=== PATIENT | female | born 1960 | race Caucasian/White ===

== ENCOUNTER 2016-12-06 12:32 | Inpatient (IN) ==
[2016-12-06] MEDS ORDERED: 0.9 % Sodium Chloride 1,000 ML IVC ONE (12:36)
[2016-12-06 13:05] LABS: Basophils # 0.1 K/mcL (0.0-0.2); Basophils % 0.7 %; Eosinophils # 0.1 K/mcL (0.0-0.6); Hematocrit 40.4 % (35.3-44.9); Hemoglobin 12.8 g/dL (11.5-15.4); Immature Granulocytes % 0.7 % (0-4); Lymphocytes # 2.6 K/mcL (0.6-4.6); Lymphocytes % 18.8 %; Mean Corpuscular HGB Conc 31.7 g/dL (31.6-35.5); Mean Corpuscular Hemoglobin 24.8 pg (28.0-33.3); Mean Corpuscular Volume 78.1 fL (83.0-100.0); Mean Platelet Volume 12.7 fL (9.4-12.4); Monocytes # 0.7 K/mcL (0.0-1.3); Platelet Count 262 K/mcL (140-400); Red Blood Count 5.17 M/mcL (3.82-4.97); Red Cell Distribution Width 16.3 % (11.5-14.5); Segmented Neutrophils % 73.8 %
[2016-12-06 13:09] LABS: INR 1.1; Prothrombin Time 11.6 Seconds (9.4-12.1)
[2016-12-06 13:12] LABS: Activated Partial Thrombo Time 26.9 Seconds (26.0-36.0)
[2016-12-06 13:22] LABS: BUN/Creatinine Ratio 28 (6-26); Blood Urea Nitrogen 24 mg/dL (7-20); Calcium 9.2 mg/dL (8.6-10.8); Carbon Dioxide 29 mEq/L (19-29); Chloride 99 mEq/L (98-109); Glucose 349 mg/dL (70-99); Magnesium 1.6 mg/dL (1.6-2.6); Osmolality,Calculated 306 (280-300); Sodium 139 mEq/L (136-145); eGFR For African Americans > 60 (> 60); eGFR For Non-African Americans > 60 (> 60)
[2016-12-06 13:45] LABS: Thyroid Stimulating Hormone 1.732 mcIU/mL (0.350-4.840)
--- NOTE | 2016-12-06 14:17 | Emergency Department Note ---
Disposition Clinical Impression: Atrial flutter with rapid ventricular response Disposition: Admitted As Inpatient Referrals: Jc Tsai MD [Primary Care Provider] - Forms: ED Satisfaction Letter Arrhythmia/Palpitations HPI - General Chief Complaint: ED Dizziness Stated Complaint: Tachy/Lightheaded Time Seen by Provider: 12/06/16 12:36 Source: patient, EMS Limitations: no limitations Nursing Notes Reviewed: Yes Vital Signs Reviewed: Yes - History of Present Illness Pt Subjective Complaint: rapid heart beat, "skipped beats", palpitations Onset (ago): day(s) (3) Duration: constant Severity: moderate Context: occurred during rest Associated symptoms: Reports: chest pain, diaphoresis - Related Data Home Medications Medication Instructions Recorded Confirmed Atorvastatin [Lipitor] 40 mg PO HS 01/11/16 04/01/16 Brimonidine 0.2% [Alphagan] 1 drop BOTH EYES BID 01/11/16 04/01/16 Gabapentin [Neurontin] 600 mg PO TID 01/11/16 04/01/16 Hydrocodone/Acetaminophen [[place] 1 tab PO BID PRN 01/11/16 04/01/16 5-325 Tablet] Insulin ASPART [Novolog Flexpen] 6 - 14 unit SQ TID 01/11/16 04/01/16 Insulin Glargine,Hum.rec.anlog 100 unit SQ BID 01/11/16 04/01/16 [Lantus Solostar] Latanoprost [Xalatan] 1 drop BOTH EYES HS 01/11/16 04/01/16 Loratadine [Claritin] 10 mg PO DAILY 01/11/16 04/01/16 Metoclopramide [Reglan] 10 mg PO Q6HR 01/11/16 04/01/16 Omeprazole [PriLOSEC] 40 mg PO DAILY 01/11/16 04/01/16 Primidone [Mysoline] 25 - 50 mg PO BID PRN 01/11/16 04/01/16 Tizanidine HCl 4 mg PO HS 01/11/16 04/01/16 clonazePAM [Klonopin] 0.5 mg PO BID PRN 01/11/16 04/01/16 Ascorbic Acid [Vitamin C] 500 mg PO DAILY 03/25/16 04/01/16 Docusate Sodium [Colace] 200 mg PO BID 03/25/16 04/01/16 Ferrous Sulfate 324 mg PO BID 03/25/16 04/01/16 Losartan Potassium [Cozaar] 100 mg PO DAILY 03/25/16 04/01/16 Previous Rx's Medication Instructions Recorded Acetaminophen [Tylenol] 650 mg PO Q6HR PRN #0 tablet 01/12/16 Collagenase Oint [Santyl] 1 appl TP BID #1 tube 01/12/16 Furosemide [Lasix] 40 mg PO DAILY #0 01/12/16 Chlorthalidone 25 mg PO DAILY tablet 04/08/16 Nystatin POWDER [Nystop] 1 appl TP TID bottle 04/08/16 Benzonatate [Tessalon] 200 mg PO TID PRN #30 capsule 11/25/16 GuaiFENesin ER [Mucinex] 1,200 mg PO BID #20 tbbp.12hr 11/25/16 cephALEXin [Keflex] 500 mg PO QID #40 capsule 11/25/16 Allergies Allergy/AdvReac Type Severity Reaction Status Date / Time lisinopril [From Zestril] AdvReac Rash Verified 11/25/16 10:31 All systems ED: reviewed and negative except as stated. Constitutional: Reports: weakness. Denies: fever, chills Respiratory: Denies: cough Gastrointestinal: Denies: nausea, vomiting Past Medical History - Past Medical History Source: patient, old records reviewed, nursing notes reviewed Medical history: Reports: CHF, diabetes, GERD, hyperlipidemia, hypertension, other Surgical history: Reports: hysterectomy Psychiatric history: Reports: no psych history CERTIFIED ORTHOTIST/PEDORTHIST history: Reports: no CERTIFIED ORTHOTIST/PEDORTHIST history - Social History Smoking Status: Never smoker Smokeless Tobacco Status: No Alcohol use: Reports: none Drug use: Reports: none Physical Exam - General Limitations: no limitations General appearance: alert, in no apparent distress - Head Head exam: atraumatic, normocephalic, normal inspection - Eye Eye exam: Present: normal appearance, PERRL, EOMI - Expanded Eye Exam Pupils: Left: reactive - ENT ENT exam: normal exam, normal oropharynx, mucous membranes moist - Expanded ENT Exam External ear exam: Present: normal external inspection Mouth exam: Present: normal external inspection Teeth exam: Present: normal inspection Throat exam: Present: normal inspection - Neck Neck exam: Present: normal inspection, full ROM, trachea midline - Chest Chest inspection: Present: normal inspection, symmetric chest wall rise - Respiratory Respiratory exam: Present: normal lung sounds bilaterally - Cardiovascular Cardiovascular exam: Present: tachycardia - Abdominal Exam Abdominal exam: Present: soft, Non-Tender. Absent: tenderness, distention, guarding, rebound, rigidity - Extremities Exam Extremities exam: Present: normal inspection, full ROM. Absent: tenderness, pedal edema - Expanded Upper Extremity Exam Shoulder exam: Present: normal inspection, full ROM Arm exam: Present: normal inspection, full ROM Elbow exam: Present: normal inspection, full ROM Forearm/Wrist exam: Present: normal inspection, full ROM Hand exam: Present: normal inspection, full ROM Vascular exam: Normal: capillary refill, radial pulse - Expanded Lower Extremity Exam Hip/Pelvis exam: Present: normal inspection, full ROM Upper leg exam: Present: normal inspection, full ROM Knee exam: Present: normal inspection, full ROM Lower leg exam: Present: normal inspection, full ROM Ankle exam: Present: normal inspection, full ROM Foot/toe exam: Present: normal inspection, full ROM Neurovascular/Tendon exam: Absent: motor deficit, sensory deficit, tendon deficit - Back Exam Back exam: Present: normal inspection, full ROM. Absent: tenderness - Neurological Exam Neurological exam: Present: alert, oriented X3 - Expanded Neurological Exam Patient oriented to: Present: person, place, time Coma Scale Eye Opening: Spontaneous Coma Scale Motor Response: Obeys Commands Coma Scale Verbal Response: Oriented Coma Scale Total: 15 - Psychiatric Psychiatric exam: Present: normal affect, normal mood - Skin Skin exam: Present: warm, dry, intact, normal color Course Vital Signs Temperature 98.2 F 12/06/16 12:34 Pulse Rate 154 12/06/16 12:34 Respiratory Rate 18 12/06/16 12:34 Blood Pressure 167/100 12/06/16 12:34 O2 Sat by Pulse Oximetry 95 12/06/16 12:34 Temperature 98.2 F 12/06/16 12:34 Pulse Rate 130 12/06/16 13:05 Respiratory Rate 18 12/06/16 13:05 Blood Pressure 152/71 12/06/16 13:05 O2 Sat by Pulse Oximetry 97 12/06/16 13:05 Oxygen Delivery Oxygen Delivery Nasal Cannula Arrhythmia/Palpitations - Differential Diagnosis Differential Diagnosis: Likely: palpitations, sinus tachycardia, artial arrhythmia, ventricular premature beats, supraventricular tachycardia, ventricular tachycardia, metabolic/electrolyte disturbance - Medical Records Medical records reviewed: Yes I reviewed the patient's medical records. - Lab Data Result diagrams: 12/06/16 12:51 12/06/16 12:51 Lab Results 12/06/16 12/06/16 12/06/16 Range/Units 12:51 12:51 12:51 WBC 13.5 H (4.3-11.1) K/mcL RBC 5.17 H (3.82-4.97) M/mcL Hgb 12.8 (11.5-15.4) g/dL Hct 40.4 (35.3-44.9) % MCV 78.1 L (83.0-100.0) fL MCH 24.8 L (28.0-33.3) pg MCHC 31.7 (31.6-35.5) g/dL RDW 16.3 H (11.5-14.5) % Plt Count 262 (140-400) K/mcL MPV 12.7 H (9.4-12.4) fL Immature Gran % 0.7 (0-4) % Seg Neutrophils % 73.8 % Lymphocytes % 18.8 % Monocytes % 5.0 % Eosinophils % 1.0 % Basophils % 0.7 % Neutrophils # 10.0 H (1.6-8.9) K/mcL Lymphocytes # 2.6 (0.6-4.6) K/mcL Monocytes # 0.7 (0.0-1.3) K/mcL Eosinophils # 0.1 (0.0-0.6) K/mcL Basophils # 0.1 (0.0-0.2) K/mcL PT 11.6 (9.4-12.1) Seconds INR 1.1 APTT 26.9 (26.0-36.0) Seconds Sodium 139 (136-145) mEq/L Potassium 4.0 (3.5-4.5) mEq/L Chloride 99 (98-109) mEq/L Carbon Dioxide 29 (19-29) mEq/L BUN 24 H (7-20) mg/dL Creatinine 0.86 (0.57-1.11) mg/dL Est GFR ( Amer) > 60 (> 60) Est GFR (Non-Af Amer) > 60 (> 60) BUN/Creatinine Ratio 28 H (6-26) Glucose 349 H (70-99) mg/dL Calculated Osmolality 306 H (280-300) Calcium 9.2 (8.6-10.8) mg/dL Magnesium 1.6 (1.6-2.6) mg/dL Troponin I (0-0.03) ng/mL TSH 1.732 (0.350-4.840) mcIU/mL 12/06/16 Range/Units 12:51 WBC (4.3-11.1) K/mcL RBC (3.82-4.97) M/mcL Hgb (11.5-15.4) g/dL Hct (35.3-44.9) % MCV (83.0-100.0) fL MCH (28.0-33.3) pg MCHC (31.6-35.5) g/dL RDW (11.5-14.5) % Plt Count (140-400) K/mcL MPV (9.4-12.4) fL Immature Gran % (0-4) % Seg Neutrophils % % Lymphocytes % % Monocytes % % Eosinophils % % Basophils % % Neutrophils # (1.6-8.9) K/mcL Lymphocytes # (0.6-4.6) K/mcL Monocytes # (0.0-1.3) K/mcL Eosinophils # (0.0-0.6) K/mcL Basophils # (0.0-0.2) K/mcL PT (9.4-12.1) Seconds INR APTT (26.0-36.0) Seconds Sodium (136-145) mEq/L Potassium (3.5-4.5) mEq/L Chloride (98-109) mEq/L Carbon Dioxide (19-29) mEq/L BUN (7-20) mg/dL Creatinine (0.57-1.11) mg/dL Est GFR ( Amer) (> 60) Est GFR (Non-Af Amer) (> 60) BUN/Creatinine Ratio (6-26) Glucose (70-99) mg/dL Calculated Osmolality (280-300) Calcium (8.6-10.8) mg/dL Magnesium (1.6-2.6) mg/dL Troponin I 0.00 (0-0.03) ng/mL TSH (0.350-4.840) mcIU/mL - Radiology Data Radiology results reviewed: Yes I reviewed the patient's radiology results. - EKG Data EKG attestation: Yes I reviewed and interpreted this EKG. Rate: tachycardia Rhythm: A. flutter [place]/QRS: normal Interpretation: nonspecific ST-T wave changes
[2016-12-06] MEDS ORDERED: Ondansetron 4 MG/2 ML VIAL IVP ONE (14:40)
[2016-12-06] MEDS ORDERED: *HR* Morphine 2 MG/ML SYRINGE IVP ONE (14:40)
[2016-12-06] MEDS ORDERED: Ondansetron ODT 4 MG TAB.RAPDIS SL PRN (15:37)
[2016-12-06] MEDS ORDERED: *HR* HYDROcodone/Acet 5/325 mg TABLET PO PRN (15:37)
[2016-12-06] MEDS ORDERED: Acetaminophen 325 MG TABLET PO PRN (15:37)
[2016-12-06] MEDS ORDERED: Naloxone 0.4 MG/ML INJ IVP PRN (15:37)
[2016-12-06] MEDS ORDERED: *HR* Morphine 2 MG/ML SYRINGE IVP PRN (15:37)
[2016-12-06] MEDS ORDERED: D5% in Water 1,000 ML IVC PRN (15:44)
[2016-12-06] MEDS ORDERED: Dextrose Gel 15 GM PO PRN ×2 (15:44)
[2016-12-06] MEDS ORDERED: *HR* Dextrose 50 % in Water (Syg) 50 ML SYRINGE IVP PRN (15:44)
[2016-12-06] MEDS ORDERED: *HR* Enoxaparin 150 MG/ML SYRINGE SQ STA (15:49)
[2016-12-06] MEDS ORDERED: *HR* Heparin 5,000 UNIT/ML VIAL SQ SCH (16:00)
[2016-12-06] MEDS ORDERED: Primidone 50 MG TABLET PO PRN (16:12)
[2016-12-06] MEDS ORDERED: clonazePAM 0.5 MG TABLET PO PRN (16:12)
--- NOTE | 2016-12-06 16:20 | Event Note ---
Date of Encounter: 12/06/16 Time of Encounter: 16:15 Patient and examined with nurse practitioner. Morbidly obese patient, minimally ambulatory with multiple medical problems presents with main complaint of shortness of breath. She was found to be in sinus tachycardia versus atrial flutter rate 150s. Cardizem started without improvement in her heart rate. Possible infiltration of the line but also possible that this may be sinus tachycardia. CT angiogram throughout pulmonary embolism. One dose of full-dose lovenox will be given She is in diastolic congestive heart failure and will get IV Lasix. Cardiology consultation. We will and wrap both lower extremity to evaluate for any infectious siurce. 2 sets of blood cultures and lactic acid will be checked. Continuous telemetry monitoring. Prognosis guarded guarded. She is full code
--- NOTE | 2016-12-06 16:23 | Internal Med History&Physical ---
Date of Encounter: 12/06/16 Time of Encounter: 16:19 Assessment and Plan (1) Tachycardia Current visit: No Status: Acute Patient presents with complaints of lightheadedness, palpitations, chest pain, EKG revealed tachycardia with heart rate 153, possible atrial flutter flutter. Troponin negative at 0.00. Heart rate running 140s to 150s. Patient given bolus of Cardizem of 20 mg by ED and started on Cardizem drip. IV infiltrated and Cardizem drip was restarted. 10 mg bolus of Cardizem ordered. CT angio of chest ordered to rule out PE Cardiology consulted, spoke with Dr. Sheffield will see patient. Weight-based Lovenox given a one-time dose. (2) Atrial flutter with rapid ventricular response Current visit: Yes Status: Acute Sinus tach vs. Aflutter. see above for plan. (3) Cutaneous candidiasis Current visit: No Status: Acute Consults wound care. Home dose of topical nystatin ordered. (4) Ulcer of right heel Current visit: No Status: Acute Patient follows with wound care as an outpatient. Bilateral lower extremities were wrapped with a clean dry dressing. Consult wound care ordered. Qualifiers: Non-pressure ulcer stage: with fat layer exposed Qualified Code(s): L97.412 - Non-pressure chronic ulcer of right heel and midfoot with fat layer exposed (5) Sleep apnea Current visit: Yes Status: Acute CPAP ordered for overnight, respiratory consult. Qualifiers: Sleep apnea type: unspecified type Qualified Code(s): G47.30 - Sleep apnea , unspecified (6) Type 2 diabetes mellitus Current visit: Yes Status: Acute Not well controlled as evidenced by recent A1c of 10.7 on 09/29/16. Diabetic, heart healthy diet check blood sugars Q4hr Basal dose of insulin 50u BID (home dose is 100u BID) Sliding scale correction dose Q4hr hypoglycemic protocol. Qualifiers: Diabetes mellitus complication status: with neurologic complications Diabetes mellitus complication detail: with polyneuropathy Diabetes mellitus fdc insulin use: with watermelon inspector use Qualified Code(s): E11.42 - Type 2 diabetes mellitus with diabetic polyneuropathy; Z79.4 - [facility] (current) use of insulin (7) Diastolic heart failure Current visit: No Status: Chronic Echocardiogram ordered for new onset atrial fibrillation. No recent echocardiogram available for review. Lasix ordered 40 mg IV push daily. Qualifiers: Heart failure chronicity: chronic Qualified Code(s): I50.32 - Chronic diastolic (congestive) heart failure (8) DVT prophylaxis Current visit: No Status: Acute Up to chair twice a day Lipase Lovenox given for new onset a flutter. Internal Medicine - H&P: HPI Chief complaint: chest pain Admitted From: Emergency Dept Plans for Post Hospital Care: Home History of present illness: Ms. Magallanes is a 56 year old female with hypertension, hyperlipidemia, CHF, type 2 diabetes, GERD, sleep apnea,, chronic diabetic ulcers, who presented to the emergency department today with complaints of lightheadedness, palpitations, chest pain. She reports this has been going on for a couple of days, her home health nurse checked her heart rate today and it was in the 160s and so sent her to the emergency department. She also reports headache, nausea, she reports numbness and tingling that is chronic related to her diabetic neuropathy. Evaluation emergency department included an EKG which showed sinus tachycardia possible a flutter heart rate in the 140s. White blood cell count was elevated at 13.5, she is hyperglycemic with blood sugar 349, troponin was negative at 0.00. She was given a Cardizem bolus of 20 mg and started on a Cardizem drip. On exam, patient is alert and oriented, diaphoretic, complaining of mild shortness of breath and lightheadedness. Heart rate was still in the 140s, however her IV had infiltrated and they needed to restart the Cardizem drip. Lungs are clear bilaterally to auscultation heart tachycardic rhythm. Bilateral lower extremities were wrapped with a clean dry dressings. Past Med Surg Social Fam HX - Past Medical History Medical history: CHF, diabetes, GERD, hyperlipidemia, hypertension, other Psychiatric history: no psych history - Past Surgical History Surgical History: hysterectomy, other (neck surgery) - Social History Smoking Status: Never smoker Smokeless Tobacco Status: No Alcohol use: none Drug use: none - Family History Mother Living Status: Hx Family Endocrine Disorder: Yes (Dm) Father Living Status: Internal Medicine - H&P: Meds Atorvastatin [Lipitor] 40 mg PO HS 01/11/16 [History] Brimonidine 0.2% [Alphagan] 1 drop BOTH EYES BID 01/11/16 [History] Insulin ASPART [Novolog Flexpen] 6 - 14 unit SQ TID 01/11/16 [History] Insulin Glargine,Hum.rec.anlog [Lantus Solostar] 100 unit SQ BID 01/11/16 [ History] Latanoprost [Xalatan] 1 drop BOTH EYES HS 01/11/16 [History] Loratadine [Claritin] 10 mg PO DAILY 01/11/16 [History] Metoclopramide [Reglan] 10 mg PO ACHS 01/11/16 [History] Omeprazole [PriLOSEC] 40 mg PO DAILY 01/11/16 [History] Primidone [Mysoline] 25 - 50 mg PO BID PRN 01/11/16 [History] Tizanidine HCl 4 mg PO HS 01/11/16 [History] clonazePAM [Klonopin] 0.5 mg PO BID PRN 01/11/16 [History] Acetaminophen [Tylenol] 650 mg PO Q6HR PRN #0 tablet 01/12/16 [Rx] Ascorbic Acid [Vitamin C] 500 mg PO BID 03/25/16 [History] Docusate Sodium [Colace] 200 mg PO BID 03/25/16 [History] Ferrous Sulfate 324 mg PO BID 03/25/16 [History] Losartan Potassium [Cozaar] 100 mg PO DAILY 03/25/16 [History] Chlorthalidone 25 mg PO DAILY tablet 04/08/16 [Rx] Chlorhexidine Gluconate [Hibiclens] 1 appl TP DAILY 12/06/16 [History] Furosemide [Lasix] 40 mg PO BID 12/06/16 [History] Miconazole 2% ointment [Aloe [place] Antifungal Ointment] 1 appl TP BID 12/06/16 [ History] Mupirocin [Bactroban Oint] 1 appl TP TID 12/06/16 [History] Polyethylene Glycol 3350 [Smoothlax] 17 gm PO DAILY 12/06/16 [History] Potassium Chloride [K-Tab ER] 20 meq PO QID 12/06/16 [History] Pregabalin [Lyrica] 75 mg PO BID 12/06/16 [History] Silver Sulfadiazine [Silvadene] 1 appl TP DAILY 12/06/16 [History] Allergies lisinopril [From Zestril] Adverse Reaction (Verified 11/25/16 10:31) Rash All Systems PM: A 10-system review of systems was performed and is negative for pertinent findings except as documented above in the HPI. - Constitutional Constitutional: excessive sweating, no chills, no fever(s), no night sweats - EENT Eyes: no change in vision, no discharge, no pain, no photophobia Ears: no ear discharge, no ear pain, no tinnitus Nose, mouth and throat: no dysphagia, no nasal discharge, no neck pain, no sore throat - Cardiovascular Cardiovascular ROS IM: chest pain, diaphoresis, dyspnea, lightheadedness, palpitations, no syncope - Respiratory Respiratory: dyspnea, no cough, no wheezing, no excessive phlegm production - Gastrointestinal Gastrointestinal: nausea, no abdominal pain, no diarrhea, no hematemesis, no hematochezia, no melena, no vomiting - Genitourinary Genitourinary: no change in urinary stream, no dysuria, no flank pain, no hematuria - Musculoskeletal Musculoskeletal ROS IM: numbness (chronic BLE), tingling (chronic BLE) - Integumentary Integumentary IM: rash (under skin folds), no unusual bruising - Neurological Neurological ROS: no confusion, no convulsions, no focal weakness, no numbness, no tingling, no tremor(s) - Hematologic/Lymphatic Hematologic/Lymphatic: no easy bruising - Constitutional Vitals: Temp Pulse Resp BP Pulse Ox 98.2 F 138 16 196/91 97 12/06/16 12:34 12/06/16 16:10 12/06/16 16:10 12/06/16 16:10 12/06/16 16:10 General appearance: Present: A&O X 3, morbidly obese, pleasant, no acute distress - Head Head exam: Present: atraumatic, normocephalic - Eye Eye exam: Present: PERRL, conjuntiva pink, sclera anicteric Pupils: Present: PERRL - Neck Neck exam general surgery: Present: supple, trachea midline. Absent: lymphadenopathy - Respiratory Respiratory exam: Present: CTAB. Absent: accessory muscle use, rales, rhonchi, wheezes - Cardiovascular Cardiovascular exam: Present: +S1, +S2, tachycardia. Absent: diastolic murmur, gallop, rubs, systolic murmur - GI/Abdominal GI/Abdominal exam: Present: normal bowel sounds, soft, no peritoneal signs. Absent: distended, tenderness - Extremities Exam Extremities exam: Present: pedal edema, warm, radial pulses palpable and symetrical. Absent: calf tenderness, cyanotic - Neurological Exam Neurological exam: Present: CN II-XII intact, oriented X3, no focal deficits. Absent: pronater drift, facial droop, speech deficit - Skin Skin exam: Present: dry, intact, rash (under skin folds) Internal Med - H&P Results - Labs CBC & Chem 7: 12/06/16 12:51 12/06/16 12:51 Labs: All Lab Results (24 Hours) 12/06/16 12/06/16 12/06/16 Range/Units 12:51 12:51 12:51 WBC 13.5 H (4.3-11.1) K/mcL RBC 5.17 H (3.82-4.97) M/mcL Hgb 12.8 (11.5-15.4) g/dL Hct 40.4 (35.3-44.9) % MCV 78.1 L (83.0-100.0) fL MCH 24.8 L (28.0-33.3) pg MCHC 31.7 (31.6-35.5) g/dL RDW 16.3 H (11.5-14.5) % Plt Count 262 (140-400) K/mcL MPV 12.7 H (9.4-12.4) fL Immature Gran % 0.7 (0-4) % Seg Neutrophils % 73.8 % Lymphocytes % 18.8 % Monocytes % 5.0 % Eosinophils % 1.0 % Basophils % 0.7 % Neutrophils # 10.0 H (1.6-8.9) K/mcL Lymphocytes # 2.6 (0.6-4.6) K/mcL Monocytes # 0.7 (0.0-1.3) K/mcL Eosinophils # 0.1 (0.0-0.6) K/mcL Basophils # 0.1 (0.0-0.2) K/mcL PT 11.6 (9.4-12.1) Seconds INR 1.1 APTT 26.9 (26.0-36.0) Seconds Sodium 139 (136-145) mEq/L Potassium 4.0 (3.5-4.5) mEq/L Chloride 99 (98-109) mEq/L Carbon Dioxide 29 (19-29) mEq/L BUN 24 H (7-20) mg/dL Creatinine 0.86 (0.57-1.11) mg/dL Est GFR ( Amer) > 60 (> 60) Est GFR (Non-Af Amer) > 60 (> 60) BUN/Creatinine Ratio 28 H (6-26) Glucose 349 H (70-99) mg/dL Calculated Osmolality 306 H (280-300) Calcium 9.2 (8.6-10.8) mg/dL Magnesium 1.6 (1.6-2.6) mg/dL Troponin I (0-0.03) ng/mL TSH 1.732 (0.350-4.840) mcIU/mL 12/06/16 Range/Units 12:51 WBC (4.3-11.1) K/mcL RBC (3.82-4.97) M/mcL Hgb (11.5-15.4) g/dL Hct (35.3-44.9) % MCV (83.0-100.0) fL MCH (28.0-33.3) pg MCHC (31.6-35.5) g/dL RDW (11.5-14.5) % Plt Count (140-400) K/mcL MPV (9.4-12.4) fL Immature Gran % (0-4) % Seg Neutrophils % % Lymphocytes % % Monocytes % % Eosinophils % % Basophils % % Neutrophils # (1.6-8.9) K/mcL Lymphocytes # (0.6-4.6) K/mcL Monocytes # (0.0-1.3) K/mcL Eosinophils # (0.0-0.6) K/mcL Basophils # (0.0-0.2) K/mcL PT (9.4-12.1) Seconds INR APTT (26.0-36.0) Seconds Sodium (136-145) mEq/L Potassium (3.5-4.5) mEq/L Chloride (98-109) mEq/L Carbon Dioxide (19-29) mEq/L BUN (7-20) mg/dL Creatinine (0.57-1.11) mg/dL Est GFR ( Amer) (> 60) Est GFR (Non-Af Amer) (> 60) BUN/Creatinine Ratio (6-26) Glucose (70-99) mg/dL Calculated Osmolality (280-300) Calcium (8.6-10.8) mg/dL Magnesium (1.6-2.6) mg/dL Troponin I 0.00 (0-0.03) ng/mL TSH (0.350-4.840) mcIU/mL - Diagnostic Studies Chest x-ray Additional comments: Chest X-Ray 12/06/16 12:36 IMPRESSION: Low lung volumes. No acute cardiopulmonary disease. D/ / Michi Newman MD / Michi Newman MD Interpreting Provider: Michi Newman MD
[2016-12-06] MEDS ORDERED: Insulin LISPRO 300 UNITS/3 ML VIAL SQ SCH ×2 (16:30→21:00)
[2016-12-06] MEDS: Furosemide 40 MG/4 ML VIAL IVP SCH (18:14)
[2016-12-06] MEDS: Insulin LISPRO 300 UNITS/3 ML VIAL SQ SCH ×3 (18:19→23:36)
[2016-12-06] MEDS ORDERED: Insulin DETEMIR 100 UNIT/ML X5UNITS SQ SCH (21:00)
[2016-12-06] MEDS: Pregabalin 75 MG CAPSULE PO SCH (21:19)
[2016-12-06] MEDS: Insulin DETEMIR 100 UNIT/ML X5UNITS SQ SCH (21:19)
[2016-12-06] MEDS: tiZANidine 4 MG TABLET PO SCH (21:19)
[2016-12-06] MEDS: Miconazole 2% ointment 114 GM TUBE TP SCH (21:21)
[2016-12-06] MEDS: Latanoprost 2.5 ML BOTTLE BOTH EYES SCH (21:22)
[2016-12-07 01:29] LABS: Basophils # 0.1 K/mcL (0.0-0.2); Basophils % 0.7 %; Eosinophils # 0.2 K/mcL (0.0-0.6); Eosinophils % 1.4 %; Hematocrit 38.8 % (35.3-44.9); Hemoglobin 11.8 g/dL (11.5-15.4); Immature Granulocytes % 1.2 % (0-4); Lymphocytes # 3.5 K/mcL (0.6-4.6); Lymphocytes % 26.3 %; Mean Corpuscular HGB Conc 30.4 g/dL (31.6-35.5); Mean Corpuscular Volume 78.9 fL (83.0-100.0); Mean Platelet Volume 12.8 fL (9.4-12.4); Monocytes # 0.7 K/mcL (0.0-1.3); Monocytes % 5.4 %; Neutrophils # 8.8 K/mcL (1.6-8.9); Platelet Count 218 K/mcL (140-400); Red Blood Count 4.92 M/mcL (3.82-4.97); Red Cell Distribution Width 16.6 % (11.5-14.5)
[2016-12-07 01:42] LABS: BUN/Creatinine Ratio 26 (6-26); Blood Urea Nitrogen 26 mg/dL (7-20); Calcium 8.6 mg/dL (8.6-10.8); Carbon Dioxide 30 mEq/L (19-29); Chloride 100 mEq/L (98-109); Glucose 133 mg/dL (70-99); Osmolality,Calculated 293 (280-300); Sodium 138 mEq/L (136-145); eGFR For African Americans > 60 (> 60); eGFR For Non-African Americans 57 (> 60)
[2016-12-07] MEDS: Insulin LISPRO 300 UNITS/3 ML VIAL SQ SCH ×5 (04:13→21:27)
[2016-12-07] MEDS ORDERED: Perflutren Lipid Microsphere 1.3 ML in 0.9 % Sodium Chloride 8.7 ML IVP ONE (07:48)
[2016-12-07] MEDS: Furosemide 40 MG/4 ML VIAL IVP SCH (07:53)
[2016-12-07] MEDS: Pregabalin 75 MG CAPSULE PO SCH ×2 (07:53→21:24)
[2016-12-07] MEDS: Loratadine 10 MG TABLET PO SCH (07:55)
[2016-12-07] MEDS: Miconazole 2% ointment 114 GM TUBE TP SCH ×2 (08:07→21:23)
[2016-12-07] MEDS: Silver Sulfadiazine 50 GM TUBE TP SCH (08:08)
[2016-12-07] MEDS: Insulin DETEMIR 100 UNIT/ML X5UNITS SQ SCH ×2 (08:17→21:24)
--- NOTE | 2016-12-07 08:52 | Cardiology Consult Note ---
Date of Encounter: 12/07/16 Time of Encounter: 08:34 Assessment and Plan (1) Tachycardia Current Visit: No Status: Acute Patient presented with complaints of lightheadedness, palpitations, chest pain, EKG revealed tachycardia with heart rate 153 Troponin 0.01>0.01 HR 70s-80s CT angio - for PE, shows some cardiac enlargement and LLL atelectasis ECHO with EF of 60% All EKGs and tele strip reviewed, sinus tachycardia, no atrial flutter appreciated d/c Cardizem recommend continue supportive care (2) Sleep apnea Current Visit: Yes Status: Acute CPAP ordered for overnight, respiratory consult Qualifiers: Sleep apnea type: unspecified type Qualified Code(s): G47.30 - Sleep apnea , unspecified (3) Diastolic heart failure Current Visit: No Status: Chronic Echo with EF of 60% No recent echocardiogram getting lasix Qualifiers: Heart failure chronicity: chronic Qualified Code(s): I50.32 - Chronic diastolic (congestive) heart failure (4) HLD (hyperlipidemia) Current Visit: No Status: Chronic Qualifiers: Hyperlipidemia type: unspecified Qualified Code(s): E78.5 - Hyperlipidemia , unspecified (5) HTN (hypertension) Current Visit: No Status: Chronic Qualifiers: Hypertension type: essential hypertension Qualified Code(s): I10 - Essential (primary) hypertension (6) Morbid obesity Current Visit: No Status: Chronic Qualifiers: Obesity type: due to excess calories Qualified Code(s): E66.01 - Morbid ( severe) obesity due to excess calories Discussion w patient/family: The assessment and plan as outlined above was discussed with the patient and/or family members who expressed understanding and agreement. All questions were answered. Thank you for involving us in the care of your patient. Please call with any questions. History of Present Illness Consult date: 12/07/16 Requesting physician: Selene Cade Consult reason: atrial flutter Chief complaint: heart racing History of present illness: Ms. Magallanes is a 56 year old female PMHx diastolic CHF, DM II, HTN, HLD, REGINALD, morbid obesity, chronic ulcers. pt c/o racing heart beats. Pt states that she has had nausea without vomiting, diarrhea, subjective fever and chills for the past 3-4 days. Yesterday while home health nurse was over pt started feeling lightheaded and was having racing heartbeats with some leftsided chest aching that wrapped around ribs and radiated to the back lasting less than a minute and then resolved itself. She states she has had several recurrent skin and respiratory infections recently and has also been seeing for wound care of her chronic ulcers. Home nurse checked HR, it was elevated so she presented to ER. In ER pt was given cardizem bolus then placed on cardizem drip which she states bolus did not help. She admits to some chronic numbness and tingling bilaterally secondary to diabetic neuropathy and chronic bilateral LE edema.She denies current chest pain, sob, lightheadedness, change in vision, sweating, back, neck or arm pain. Past Med Surg Social Fam HX - Past Medical History Medical history: CHF, diabetes, GERD, hyperlipidemia, hypertension Psychiatric history: depression - Past Surgical History Surgical History: hysterectomy, other - Social History Smoking Status: Never smoker Smokeless Tobacco Status: No Alcohol use: none Drug use: none - Family History Mother Living Status: Hx Family Endocrine Disorder: Yes (Dm) Father Living Status: Medications and Allergies Atorvastatin [Lipitor] 40 mg PO HS 01/11/16 [History] Brimonidine 0.2% [Alphagan] 1 drop BOTH EYES BID 01/11/16 [History] Insulin ASPART [Novolog Flexpen] 6 - 14 unit SQ TID 01/11/16 [History] Insulin Glargine,Hum.rec.anlog [Lantus Solostar] 100 unit SQ BID 01/11/16 [ History] Latanoprost [Xalatan] 1 drop BOTH EYES HS 01/11/16 [History] Loratadine [Claritin] 10 mg PO DAILY 01/11/16 [History] Metoclopramide [Reglan] 10 mg PO ACHS 01/11/16 [History] Omeprazole [PriLOSEC] 40 mg PO DAILY 01/11/16 [History] Primidone [Mysoline] 25 - 50 mg PO BID PRN 01/11/16 [History] Tizanidine HCl 4 mg PO HS 01/11/16 [History] clonazePAM [Klonopin] 0.5 mg PO BID PRN 01/11/16 [History] Acetaminophen [Tylenol] 650 mg PO Q6HR PRN #0 tablet 01/12/16 [Rx] Ascorbic Acid [Vitamin C] 500 mg PO BID 03/25/16 [History] Docusate Sodium [Colace] 200 mg PO BID 03/25/16 [History] Ferrous Sulfate 324 mg PO BID 03/25/16 [History] Losartan Potassium [Cozaar] 100 mg PO DAILY 03/25/16 [History] Chlorthalidone 25 mg PO DAILY tablet 04/08/16 [Rx] Chlorhexidine Gluconate [Hibiclens] 1 appl TP DAILY 12/06/16 [History] Furosemide [Lasix] 40 mg PO BID 12/06/16 [History] Miconazole 2% ointment [Aloe [place] Antifungal Ointment] 1 appl TP BID 12/06/16 [ History] Mupirocin [Bactroban Oint] 1 appl TP TID 12/06/16 [History] Polyethylene Glycol 3350 [Smoothlax] 17 gm PO DAILY 12/06/16 [History] Potassium Chloride [K-Tab ER] 20 meq PO QID 12/06/16 [History] Pregabalin [Lyrica] 75 mg PO BID 12/06/16 [History] Silver Sulfadiazine [Silvadene] 1 appl TP DAILY 12/06/16 [History] Allergies lisinopril [From Zestril] Adverse Reaction (Verified 11/25/16 10:31) Rash All Systems Review: A 10-system review of systems was performed and is negative for pertinent findings except as documented above in the HPI. - Constitutional Constitutional: fever(s), headache(s) - EENT Eyes: no blurred vision, no loss of vision - Cardiovascular Cardiovascular: leg edema, lightheadedness, palpitations, no dyspnea at rest, no dyspnea on exertion - Respiratory Respiratory: cough, dyspnea, no hemoptysis - Gastrointestinal Gastrointestinal: diarrhea, nausea - Integumentary Integumentary: other - Neurological Neurological: no abnormal speech, no loss of vision, no memory loss, no syncope Physical Examination Vital Signs, Last 4 Hours Temp Pulse Resp BP Pulse Ox 12/07/16 07:11 98.0 F 77 18 130/68 95 General: Conversant, No Apparent Distress HEENT: Atraumatic, Normocephaly, Mucus Membranes Moist Neck: No JVD, Normal carotid pulses Cardiac: Reg Rate and Rhythm, Normal S1 and S2, No Murmur Lungs: No Wheeze, Rales, Rhonchi, Other (diminshed breath sounds in lower lung ann b/l) Neuro: Alert and responsive, No focal deficits noted Abdomen: Soft, Non-Tender Skin: Other (both legs wrapped, healing ulcers underneath) Musculoskeletal: No Chest Wall Tenderness Extremities: No Cyanosis, Normal Pulses, Other (+2 pitting edema B/L) Results 12/07/16 00:42 12/07/16 00:42 Lab Results 12/06/16 12/07/16 12/07/16 21:47 00:42 00:42 WBC 13.5 H Hgb 11.8 Hct 38.8 Plt Count 218 Sodium Potassium Chloride Carbon Dioxide BUN Creatinine Glucose Calcium Troponin I 0.01 0.01 12/07/16 00:42 WBC Hgb Hct Plt Count Sodium 138 Potassium 4.0 Chloride 100 Carbon Dioxide 30 H BUN 26 H Creatinine 1.01 Glucose 133 H Calcium 8.6 Troponin I - Imaging and Cardiology Chest Xray: report reviewed Holter: report reviewed - EKG Interpretation EKG results cardiology: personally reviewed Consult Discharge Plan - Plan Referrals: Jc Tsai MD [Primary Care Provider] - 12/14/16 10:45 am ()
--- NOTE | 2016-12-07 10:26 | ECHO - Doppler Report ---
Echo with Imaging Enhancement Agent Name: Pauly Magallanes Date of Study: 12/07/2016 Date: 1960 Ht: 61.0 in Medical Record#: [id number] Age: 56 Wt: 280.0 lb Gender: Female BSA: 2.18 Order #: [id number] Location: [facility] Room #: 2N07 Reading Physician: Federico Hi MD, [facility] [place] Ironer: ZAC FullerT, [facility] Ordering Physician: Selene Cade CNP Primary Physician: Jc Tsai MD Indications: TACHYCARDIA Impressions: Normal LV systolic function, LVEF 60%. Mild concentric left ventricular hypertrophy. Moderate left ventricular diastolic dysfunction. Normal right ventricular size and function. No significant valvular dysfunction. Left Ventricular Wall Motion: Rest Echo Findings All wall segments showed normal motion. Findings: Study Quality * Technically sub-optimal due to poor echocardiographic windows. Echo contrast was used. ECG Findings * Normal sinus rhythm. Left Ventricle * Normal LV systolic function, LVEF 60%. * Normal LV chamber size. * Mild concentric left ventricular hypertrophy. * Moderate left ventricular diastolic dysfunction. Right Ventricle * Normal right ventricular size and function. Left Atrium * Normal left atrial size. Right Atrium * Normal right atrial size. Aorta * Normally sized aortic root. Pericardium * There is no pericardial effusion present. IVC * The IVC was not visualized. Aortic Valve * Trileaflet aortic valve. * No aortic stenosis. * No aortic regurgitation. Mitral Valve * Normal mitral valve structure. * No mitral stenosis. * Trace mitral regurgitation. Tricuspid Valve * Tricuspid valve not well visualized. * No tricuspid stenosis. * Trace tricuspid regurgitation. * Unable to estimate RVSP due to lack of TR jet. Pulmonic Valve * Pulmonic valve not well visualized. * No pulmonic stenosis. * No pulmonic regurgitation. History Hypertension Diabetes Hypercholesteremia 2015 a Previous Echo was performed. Contrast: Definity 1.3 ml in 8.7 ml of saline 2 ml. Measurements: BP: 106/ 59 2D Normal Values IVSd: 1.30 cm 0.6 - 1.0 cm LVIDd: 5.10 cm 3.7 - 5.6 cm LVPWd: 1.30 cm 0.6 - 1.1 cm LVIDs: 3.00 cm 1.5 - 3.6 cm AO: 2.60 cm < 4.0 cm LA volume: 31 Mitral Valve Peak E:1.13 m/sec Peak A:.81 m/sec E/A Ratio:1.4 Updated by Federico Hi MD, [facility] on 12/07/2016 10:21:32 AM electronically signed on 12/07/2016 10:21:58 AM with status of [place]: 1=Normal, 2=Hypokinesis, 3=Akinesis, 4=Dyskinesis, 5=Aneurysmal, 6=Hyperkinetic, X=Not Visualized (Blank)=Missing
--- NOTE | 2016-12-07 16:35 | Internal Med Progress Note ---
Date of Encounter: 12/07/16 Time of Encounter: 10:30 - Assessment and plan (1) Tachycardia Current Visit: No Status: Acute Assessment and plan: Patient presents with complaints of lightheadedness, palpitations. EKG showed' s tachycardia with heart rate 153. Troponin negative 2. CTA of chest showed no PE, no acute process. Patient is started on Cardizem drip in the ED. Today, patient is on Cardizem drip 5 mg per hour. Her heart rate is in the 60s. I will stop Cardizem drip and his start low dose Lopressor. Patient is completely asymptomatic. Echocardiogram revealed LVEF 60%, moderate left ventricular diastolic dysfunction. (2) Leukocytosis Current Visit: Yes Status: Chronic Assessment and plan: WBC 13.5. Patient has warts are of right heel. Wound care consulted. She also has tiny as candidiasis. Continue home dose of topical nasal nystatin. No diarrhea. No urinary complaints. Will trend WBC. Qualifiers: Leukocytosis type: other Qualified Code(s): D72.828 - Other elevated white blood cell count (3) Diastolic heart failure Current Visit: No Status: Chronic Assessment and plan: Compensated. Not in acute exacerbation. CTA of the chest showed no acute process, no pulmonary embolus and chronic atelectasis. Continue Lasix and fluid restriction. Qualifiers: Heart failure chronicity: chronic Qualified Code(s): I50.32 - Chronic diastolic (congestive) heart failure (4) HTN (hypertension) Current Visit: No Status: Chronic Assessment and plan: Well-controlled with medications. Qualifiers: Hypertension type: essential hypertension Qualified Code(s): I10 - Essential (primary) hypertension (5) Type 2 diabetes mellitus Current Visit: Yes Status: Acute Assessment and plan: Patient takes Lantus at 100 units twice a day. Glucose levels better control after starting Levemir 50 units twice a day. Continue Levemir, insulin sliding scale and diabetic diet. 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 Outpatient weight loss program Qualifiers: Obesity type: due to excess calories Qualified Code(s): E66.01 - Morbid ( severe) obesity due to excess calories - Subjective Interval history: patient reports no palpitations. her shortness of breath is better compared to admission. - Constitutional Vitals: Temp Pulse Resp BP Pulse Ox 97.6 F 84 16 118/63 94 12/07/16 15:58 12/07/16 15:58 12/07/16 15:58 12/07/16 15:58 12/07/16 15:58 General appearance: Present: cooperative, A&O X 3, morbidly obese, pleasant, no acute distress, answers questions appropriately - Neck Neck exam general surgery: Present: supple, trachea midline. Absent: lymphadenopathy - Respiratory Respiratory exam: Present: decreased breath sounds (at lower lung ann) - Cardiovascular Cardiovascular exam: Present: RRR - GI/Abdominal GI/Abdominal exam: Present: normal bowel sounds, soft. Absent: distended, tenderness - Extremities Exam Extremities exam: Present: pedal edema - Back Exam Back exam: Absent: CVA tenderness (L), CVA tenderness (R) - Neurological Exam Neurological exam: Present: alert, oriented X3, no focal deficits. Absent: facial droop, speech deficit - Skin Skin exam: Absent: rash Internal Medicine: Result - Labs CBC & Chem 7: 12/07/16 00:42 12/07/16 00:42 Labs: Short CBC 12/07/16 Range/Units 00:42 WBC 13.5 H (4.3-11.1) K/mcL Hgb 11.8 (11.5-15.4) g/dL Hct 38.8 (35.3-44.9) % Plt Count 218 (140-400) K/mcL Neutrophils # 8.8 (1.6-8.9) K/mcL BMP 12/07/16 00:42 Sodium 138 Potassium 4.0 Chloride 100 Carbon Dioxide 30 H BUN 26 H Creatinine 1.01 Glucose 133 H Calcium 8.6 Cardiac Enzymes 12/06/16 12/07/16 Range/Units 21:47 00:42 Troponin I 0.01 0.01 (0-0.03) ng/mL - ABG Interpretation ABG results: PT/INR, D-dimer PT 11.6 Seconds (9.4-12.1) 12/06/16 12:51 - Impressions Impressions Chest CTA 12/06/16 15:48 IMPRESSION: 1. No pulmonary embolism. 2. Chronic atelectasis versus interstitial change in the left lower lobe. No acute pulmonary finding. D/ / João Prieto MD / João Prieto MD Interpreting Provider: João Prieto MD Consult Discharge Plan - Plan Referrals: Jc Tsai MD [Primary Care Provider] - 12/14/16 10:45 am ()
[2016-12-07] MEDS: tiZANidine 4 MG TABLET PO SCH (21:25)
[2016-12-07] MEDS: Latanoprost 2.5 ML BOTTLE BOTH EYES SCH (21:48)
[2016-12-08 05:44] LABS: Basophils # 0.1 K/mcL (0.0-0.2); Basophils % 0.5 %; Eosinophils # 0.2 K/mcL (0.0-0.6); Eosinophils % 1.6 %; Hematocrit 38.5 % (35.3-44.9); Lymphocytes # 2.7 K/mcL (0.6-4.6); Lymphocytes % 19.7 %; Mean Corpuscular HGB Conc 31.2 g/dL (31.6-35.5); Mean Corpuscular Hemoglobin 25.1 pg (28.0-33.3); Mean Corpuscular Volume 80.5 fL (83.0-100.0); Mean Platelet Volume 12.8 fL (9.4-12.4); Monocytes # 0.8 K/mcL (0.0-1.3); Monocytes % 5.7 %; Neutrophils # 9.8 K/mcL (1.6-8.9); Platelet Count 252 K/mcL (140-400); Red Blood Count 4.78 M/mcL (3.82-4.97); Segmented Neutrophils % 71.5 %
[2016-12-08] MEDS: Insulin DETEMIR 100 UNIT/ML X5UNITS SQ SCH (08:21)
[2016-12-08] MEDS: Pregabalin 75 MG CAPSULE PO SCH (08:24)
[2016-12-08] MEDS: Loratadine 10 MG TABLET PO SCH (08:24)
[2016-12-08] MEDS: Insulin LISPRO 300 UNITS/3 ML VIAL SQ SCH ×2 (08:32→11:54)
[2016-12-08] MEDS: Miconazole 2% ointment 114 GM TUBE TP SCH (08:34)
[2016-12-08] MEDS: Silver Sulfadiazine 50 GM TUBE TP SCH (08:35)
--- NOTE | 2016-12-08 09:09 | Discharge Summary ---
Date of Encounter: 12/08/16 Time of Encounter: 09:07 - Discharge Diagnosis (1) Tachycardia Priority: Primary Status: Acute (2) Leukocytosis Priority: Primary Status: Chronic Qualifiers: Leukocytosis type: other Qualified Code(s): D72.828 - Other elevated white blood cell count (3) Diastolic heart failure Priority: Secondary Status: Chronic Qualifiers: Heart failure chronicity: chronic Qualified Code(s): I50.32 - Chronic diastolic (congestive) heart failure (4) HTN (hypertension) Priority: Secondary Status: Chronic Qualifiers: Hypertension type: essential hypertension Qualified Code(s): I10 - Essential (primary) hypertension (5) Type 2 diabetes mellitus Priority: Secondary Status: Chronic Qualifiers: Diabetes mellitus complication status: with neurologic complications Diabetes mellitus complication detail: with polyneuropathy Diabetes mellitus alf 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 use: 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 Qualified Code(s): E11.42 - Type 2 diabetes mellitus with diabetic polyneuropathy; Z79.4 - still operator (current) use of insulin (6) Morbid obesity Priority: Secondary Status: Chronic Qualifiers: Obesity type: due to excess calories Qualified Code(s): E66.01 - Morbid ( severe) obesity due to excess calories - Discharge Medications Prescriptions: Cephalexin [Keflex] 500 mg PO BID #14 capsule Metoprolol [Lopressor] 25 mg PO BID #60 tablet Home Medications: Atorvastatin [Lipitor] 40 mg PO HS 01/11/16 [History] Brimonidine 0.2% [Alphagan] 1 drop BOTH EYES BID 01/11/16 [History] Insulin ASPART [Novolog Flexpen] 6 - 14 unit SQ TID 01/11/16 [History] Insulin Glargine,Hum.rec.anlog [Lantus Solostar] 100 unit SQ BID 01/11/16 [ History] Latanoprost [Xalatan] 1 drop BOTH EYES HS 01/11/16 [History] Loratadine [Claritin] 10 mg PO DAILY 01/11/16 [History] Metoclopramide [Reglan] 10 mg PO ACHS 01/11/16 [History] Omeprazole [PriLOSEC] 40 mg PO DAILY 01/11/16 [History] Primidone [Mysoline] 25 - 50 mg PO BID PRN 01/11/16 [History] Tizanidine HCl 4 mg PO HS 01/11/16 [History] clonazePAM [Klonopin] 0.5 mg PO BID PRN 01/11/16 [History] Acetaminophen [Tylenol] 650 mg PO Q6HR PRN #0 tablet 01/12/16 [Rx] Ascorbic Acid [Vitamin C] 500 mg PO BID 03/25/16 [History] Docusate Sodium [Colace] 200 mg PO BID 03/25/16 [History] Ferrous Sulfate 324 mg PO BID 03/25/16 [History] Chlorhexidine Gluconate [Hibiclens] 1 appl TP DAILY 12/06/16 [History] Furosemide [Lasix] 40 mg PO BID 12/06/16 [History] Miconazole 2% ointment [Aloe [place] Antifungal Ointment] 1 appl TP BID 12/06/16 [ History] Mupirocin [Bactroban Oint] 1 appl TP TID 12/06/16 [History] Polyethylene Glycol 3350 [Smoothlax] 17 gm PO DAILY 12/06/16 [History] Pregabalin [Lyrica] 75 mg PO BID 12/06/16 [History] Silver Sulfadiazine [Silvadene] 1 appl TP DAILY 12/06/16 [History] Cephalexin [Keflex] 500 mg PO BID #14 capsule 12/08/16 [Rx] Chlorthalidone 12.5 mg PO DAILY #0 tablet 12/08/16 [Rx] Losartan Potassium [Cozaar] 50 mg PO DAILY #0 12/08/16 [Rx] Metoprolol [Lopressor] 25 mg PO BID #60 tablet 12/08/16 [Rx] Potassium Chloride [K-Tab ER] 20 meq PO TID #0 12/08/16 [Rx] Allergies/Adverse Reactions: Allergies lisinopril [From Zestril] Adverse Reaction (Verified 11/25/16 10:31) Rash Procedures/tests Complete & Pending: Procedures Performed prior 72 hours Category Date Time Status CT angio chest [CT] Stat Cat Scan 12/06/16 15:48 Completed EV echocardiogram w enhance Routine Y 12/07/16 15:52 Completed Date of admission: 12/06/16 15:40 Primary care physician: Jc Tsai MD Consults: 12/06/16 15:42 Consult to Wound Care [CONS] Routine Reason for Consult: multiple BLE wounds, follows with wound clinic as an outpatient Call Completed: No 12/06/16 16:00 Consult to Cardiology [CONS] Routine Comment: Consulting Provider: Cardiology Isabella Reason for Consult: new onset aflutter with HR 140s Call Completed: Yes 12/06/16 18:47 Consult to Nutrition [CONS] Routine Comment: Consulting Provider: NUTRITION Reason for Dietary Consult: MST Score - Patient Status Disposition: Home, Self-Care Condition: Good Functional capacity at discharge: uses cane/walker Overall status at discharge: patient is progressing back to baseline - Discharge Instructions Instructions: Acute Kidney Injury (DC), Urinary Tract Infection in Women (DC), Diabetes Mellitus Type 2 in Adults (DC), Chronic Hypertension (DC) Follow Up With: Jc Tsai MD [Primary Care Provider] - 12/14/16 10:45 am () Additional Instructions: PLEASE CHECK YOUR BLOOD SUGARS BEFORE MEALS AND AT BEDTIME. WRITE DOWN THE NUMBERS AND BRING RECORD TO DOCTOR'S APPOINTMENT. PLEASE CHECK YOUR BLOOD PRESSURE TWICE DAILY. WRITE DOWN THE NUMBERS AND BRING RECORD TO DOCTOR'S APPOINTMENT. TAKE ANTIBIOTICS PRESCRIBED AND FOLLOW UP WITH YOUR DOCTOR NEXT MONDAY. START A WEIGHT LOSS PROGRAM. HAVE A BLOOD TEST DONE NEXT MONDAY - Diet and Activity Activity: resume usual activities as tolerated, wear oxygen at all times Diet: diabetic diet, low fat, low cholesterol, low salt diet, other (FLUID RESTRICTION NO MORE THAN 1.8 LITERS A DAY) Interval History: Patient feels better compared to admission. She is eating well. No nausea. No vomiting. Hospital course: Ms. Magallanes is a 56 year old female with a past medical history of hypertension, diabetes, hyperlipidemia, sleep apnea and chronic diabetic ulcers who presents with a chief complaint of chest pain, lightheadedness and palpitations. She was admitted with emesis of tachycardia secondary to chronic ulcers. Initially , she was started on Cardizem drip but this was stopped and she was switched to oral metoprolol. Echocardiogram revealed LVEF 60%, moderate left ventricular diastolic dysfunction, mild concentric left ventricle hypertrophy. She was started on oral Keflex for her cellulitis. Blood Cultures were negative. Plan: Follow-up with primary care physician for chronic diabetic ulcers. - Time Spent with Patient Total time spent providing and/or coordinating discharge services: - Constitutional Vitals: Temp Pulse Resp BP Pulse Ox 98.6 F 92 18 131/74 97 12/08/16 08:30 12/08/16 08:30 12/08/16 08:30 12/08/16 08:30 12/08/16 08:30 General appearance: Present: cooperative, A&O X 3, morbidly obese, pleasant, no acute distress, answers questions appropriately - Neck Neck exam general surgery: Present: supple, trachea midline. Absent: lymphadenopathy - Respiratory Respiratory exam: Present: CTAB - Cardiovascular Cardiovascular exam: Present: RRR - GI/Abdominal GI/Abdominal exam: Present: normal bowel sounds, soft. Absent: distended, tenderness - Extremities Exam Extremities exam: Absent: pedal edema - Neurological Exam Neurological exam: Present: alert, oriented X3 - Skin Skin exam: Absent: rash
[2016-12-08 10:09] LABS: BUN/Creatinine Ratio 36 (6-26); Blood Urea Nitrogen 31 mg/dL (7-20); Calcium 8.5 mg/dL (8.6-10.8); Carbon Dioxide 31 mEq/L (19-29); Chloride 102 mEq/L (98-109); Glucose 165 mg/dL (70-99); Magnesium 1.8 mg/dL (1.6-2.6); Osmolality,Calculated 300 (280-300); Potassium 4.8 mEq/L (3.5-4.5); Sodium 140 mEq/L (136-145); eGFR For African Americans > 60 (> 60); eGFR For Non-African Americans > 60 (> 60)
[2016-12-08 11:38] VITALS: BP 138/74
--- NOTE | 2016-12-08 14:38 | Physician Discharge Referral ---
Home Health/Hosp Referral Info Transfer to: Home Health Attending Provider: RACHEL Provider in Charge Post Discharge: PCP - Diagnosis (1) Tachycardia Status: Acute (2) Leukocytosis Status: Chronic (3) Diastolic heart failure Status: Chronic (4) HTN (hypertension) Status: Chronic (5) Type 2 diabetes mellitus Status: Chronic (6) Morbid obesity Status: Chronic - Respiratory Orders Smoking Cessation: Smoking cessation has been advised. For more information, call the [place] Tobacco Quit Line at 4-807-RJWE-NOW. - Diet/Nutrition Diet/Nutrition Orders: No Added Salt (MARGARETH), Cardiac, No Concentrated Sweets - Activity Activity Orders: Ambulate - Services Needed Following services are medically necessary services: Nursing Other Treatments: CHECK bmp ON 12/09/2016 - Transfer Medications Prescriptions: Cephalexin [Keflex] 500 mg PO BID #14 capsule Metoprolol [Lopressor] 25 mg PO BID #60 tablet Home Medications: Atorvastatin [Lipitor] 40 mg PO HS 01/11/16 [History] Brimonidine 0.2% [Alphagan] 1 drop BOTH EYES BID 01/11/16 [History] Insulin ASPART [Novolog Flexpen] 6 - 14 unit SQ TID 01/11/16 [History] Insulin Glargine,Hum.rec.anlog [Lantus Solostar] 100 unit SQ BID 01/11/16 [ History] Latanoprost [Xalatan] 1 drop BOTH EYES HS 01/11/16 [History] Loratadine [Claritin] 10 mg PO DAILY 01/11/16 [History] Metoclopramide [Reglan] 10 mg PO ACHS 01/11/16 [History] Omeprazole [PriLOSEC] 40 mg PO DAILY 01/11/16 [History] Primidone [Mysoline] 25 - 50 mg PO BID PRN 01/11/16 [History] Tizanidine HCl 4 mg PO HS 01/11/16 [History] clonazePAM [Klonopin] 0.5 mg PO BID PRN 01/11/16 [History] Acetaminophen [Tylenol] 650 mg PO Q6HR PRN #0 tablet 01/12/16 [Rx] Ascorbic Acid [Vitamin C] 500 mg PO BID 03/25/16 [History] Docusate Sodium [Colace] 200 mg PO BID 03/25/16 [History] Ferrous Sulfate 324 mg PO BID 03/25/16 [History] Chlorhexidine Gluconate [Hibiclens] 1 appl TP DAILY 12/06/16 [History] Furosemide [Lasix] 40 mg PO BID 12/06/16 [History] Miconazole 2% ointment [Aloe [place] Antifungal Ointment] 1 appl TP BID 12/06/16 [ History] Mupirocin [Bactroban Oint] 1 appl TP TID 12/06/16 [History] Polyethylene Glycol 3350 [Smoothlax] 17 gm PO DAILY 12/06/16 [History] Pregabalin [Lyrica] 75 mg PO BID 12/06/16 [History] Silver Sulfadiazine [Silvadene] 1 appl TP DAILY 12/06/16 [History] Cephalexin [Keflex] 500 mg PO BID #14 capsule 12/08/16 [Rx] Chlorthalidone 12.5 mg PO DAILY #0 tablet 12/08/16 [Rx] Losartan Potassium [Cozaar] 50 mg PO DAILY #0 12/08/16 [Rx] Metoprolol [Lopressor] 25 mg PO BID #60 tablet 12/08/16 [Rx] Potassium Chloride [K-Tab ER] 20 meq PO TID #0 12/08/16 [Rx] Allergies/Adverse Reactions: Allergies lisinopril [From Zestril] Adverse Reaction (Verified 11/25/16 10:31) Rash Certification: Further, I certify that my clinical findings support that this patient is homebound (i.e. absences from home require considerable and taxing effort and are for medical reasons or taoism services or infrequently or short duration when for other reasons) because: Homebound Reason: Patient requires assistance of a person or device to safely leave home, Leaving home requires considerable and taxing effort due to condition Attestation: My signature below is to certify that this patient is under my care and that I, or nurse practitioner, or a physician's shop assistant working with me, has a face-to -face encounter with this patient.
[2016-12-08] MEDS ORDERED: Furosemide 40 MG TABLET PO SCH (17:00)
--- NOTE | 2016-12-08 17:05 | Electrocardiograph Report ---
[facility] Test Date: 2016-12-06 Pat Name: Pauly Magallanes Department: 102 Room: 2N07 Gender: F Clinical Rn Liaison: Vl : 1960 Requested By: Alexandr Snider Order Number: [id number] Reading MD: Sanjay Terry MD Measurements Intervals [place] Rate: 153 P: 44 ND: 123 QRS: 7 QRSD: 78 T: 31 QT: 275 QTc: 362 Interpretive Statements SINUS TACHYCARDIA, NONSPECIFIC ST \T\ T-WAVE ABNORMALITY ABNORMAL RHYTHM ECG Electronically Signed On 12-08-2016 17:03:31 EDT by Sanjay Terry MD
[2016-12-08] MEDS ORDERED: Insulin LISPRO 300 UNITS/3 ML VIAL SQ SCH (21:00)
== END 2016-12-08 14:40 | disposition home or self-care (01) | DRG 201 ==
LOC: EMEROO 12:32 → 2NENU 12:32 → 2NNU 15:11
PROVIDERS: ADMIT Hospitalist; ATTEND Internal Medicine

== ENCOUNTER 2017-02-24 10:12 | Inpatient (IN) ==
[2017-02-24] MEDS ORDERED: Vancomycin 2,000 MG in D5% in Water 250 ML IVPB ONE (10:38)
[2017-02-24] MEDS ORDERED: 0.9 % Sodium Chloride 1,000 ML IVC ONE (10:38)
[2017-02-24] MEDS ORDERED: Piperacillin/Tazobactam 3.375 GM in D5% in Water (Mini-Bag+) 100 ML IVPB ONE (10:38)
[2017-02-24] MEDS ORDERED: Vancomycin 2,000 MG in D5% in Water 500 ML IVPB ONE (10:59)
--- NOTE | 2017-02-24 11:10 | Emergency Department Note ---
Disposition Clinical Impression: Venous stasis dermatitis of both lower extremities Diabetic foot ulcer Qualifiers: Diabetic foot ulcer location: midfoot Diabetes mellitus type: type 2 Laterality : right Non-pressure ulcer stage: limited to breakdown of skin Qualified Code(s) : E11.621 - Type 2 diabetes mellitus with foot ulcer Leukocytosis Qualifiers: Leukocytosis type: unspecified Qualified Code(s): D72.829 - Elevated white blood cell count, unspecified HTN (hypertension) Qualifiers: Hypertension type: unspecified Qualified Code(s): I10 - Essential (primary) hypertension Disposition: Admitted As Inpatient Condition: Fair Referrals: Jc Tsai MD [Primary Care Provider] - Forms: Work/School Release, ED Satisfaction Letter General Adult HPI - General Chief complaint: ED General Medical Stated complaint: Abnormal Labs, Fever Time Seen by Provider: 02/24/17 10:30 Source: patient Mode of arrival: private vehicle Limitations: no limitations Nursing Notes Reviewed: Yes Vital Signs Reviewed: Yes - History of Present Illness Pt Subjective Complaint: Patient states, "my doctor told me to come because my labs were abnormal" Onset (ago): day(s) (Labs were drawn February 22 by the patient's vulcanizer rubber plate because she had mild erythema surrounding a diabetic foot ulcer) Location: right, lower extremity (Foot) Radiation: non-radiation Pain Severity: moderate Pain Scale: 8 Quality: sharp Consistency: intermittent Improves with: nothing Worsens with: other (Palpation) Associated symptoms: Reports: fever/chills (Subjective), malaise. Denies: confusion, chest pain, cough, diaphoresis, headaches, loss of appetite, nausea/ vomiting, rash, seizure, shortness of breath, syncope, weakness, other - Related Data Home Medications Medication Instructions Recorded Confirmed Atorvastatin [Lipitor] 40 mg PO HS 01/11/16 12/06/16 Brimonidine 0.2% [Alphagan] 1 drop BOTH EYES BID 01/11/16 12/06/16 Insulin ASPART [Novolog Flexpen] 6 - 14 unit SQ TID 01/11/16 12/06/16 Insulin Glargine,Hum.rec.anlog 100 unit SQ BID 01/11/16 12/06/16 [Lantus Solostar] Latanoprost [Xalatan] 1 drop BOTH EYES HS 01/11/16 12/06/16 Loratadine [Claritin] 10 mg PO DAILY 01/11/16 12/06/16 Metoclopramide [Reglan] 10 mg PO ACHS 01/11/16 12/06/16 Omeprazole [PriLOSEC] 40 mg PO DAILY 01/11/16 12/06/16 Primidone [Mysoline] 25 - 50 mg PO BID PRN 01/11/16 12/06/16 Tizanidine HCl 4 mg PO HS 01/11/16 12/06/16 clonazePAM [Klonopin] 0.5 mg PO BID PRN 01/11/16 12/06/16 Ascorbic Acid [Vitamin C] 500 mg PO BID 03/25/16 12/06/16 Docusate Sodium [Colace] 200 mg PO BID 03/25/16 12/06/16 Ferrous Sulfate 324 mg PO BID 03/25/16 12/06/16 Chlorhexidine Gluconate [Hibiclens] 1 appl TP DAILY 12/06/16 12/06/16 Furosemide [Lasix] 40 mg PO BID 12/06/16 12/06/16 Miconazole 2% ointment [Aloe [place] 1 appl TP BID 12/06/16 12/06/16 Antifungal Ointment] Mupirocin [Bactroban Oint] 1 appl TP TID 12/06/16 12/06/16 Polyethylene Glycol 3350 17 gm PO DAILY 12/06/16 12/06/16 [Smoothlax] Pregabalin [Lyrica] 75 mg PO BID 12/06/16 12/06/16 Silver Sulfadiazine [Silvadene] 1 appl TP DAILY 12/06/16 12/06/16 Previous Rx's Medication Instructions Recorded Acetaminophen [Tylenol] 650 mg PO Q6HR PRN #0 tablet 01/12/16 Cephalexin [Keflex] 500 mg PO BID #14 capsule 12/08/16 Chlorthalidone 12.5 mg PO DAILY #0 tablet 12/08/16 Losartan Potassium [Cozaar] 50 mg PO DAILY #0 12/08/16 Metoprolol [Lopressor] 25 mg PO BID #60 tablet 12/08/16 Potassium Chloride [K-Tab ER] 20 meq PO TID #0 12/08/16 Benzonatate [Tessalon] 200 mg PO TID #20 capsule 12/30/16 cephALEXin [Keflex] 500 mg PO QID #40 capsule 12/30/16 Allergies Allergy/AdvReac Type Severity Reaction Status Date / Time lisinopril [From Zestril] AdvReac Rash Verified 11/25/16 10:31 All systems ED: reviewed and negative except as stated. Review of Systems: As Per HPI Constitutional: Reports: fever, chills. Denies: weakness, night sweats Cardiovascular: Denies: chest pain, palpitations, dyspnea on exertion Respiratory: Denies: cough, dyspnea, wheezes Gastrointestinal: Denies: abdominal pain, nausea, vomiting, diarrhea Genitourinary: Denies: urgency, dysuria, frequency, hematuria Musculoskeletal: Denies: back pain, neck pain, joint swelling Integumentary: Denies: rash, pruritus Neurological: Denies: headache, weakness Hematological/Lymphatic: Denies: easy bleeding, easy bruising, lymphadenopathy Past Medical History - Past Medical History Attestation: Yes The following information was validated with the patient. Source: patient Medical history: Reports: CHF, diabetes, GERD, hyperlipidemia, hypertension Surgical history: Reports: hysterectomy, other Psychiatric history: Reports: depression COMMISSARY STEWARD history: Reports: no COMMISSARY STEWARD history - Social History Smoking Status: Never smoker Smokeless Tobacco Status: No Alcohol use: Reports: none Drug use: Reports: none Physical Exam - General Limitations: no limitations General appearance: alert, in no apparent distress - Head Head exam: atraumatic, normocephalic, normal inspection - Eye Eye exam: Present: normal appearance, PERRL. Absent: scleral icterus, conjunctival injection, periorbital swelling - ENT ENT exam: mucous membranes dry - Neck Neck exam: Present: normal inspection, full ROM, trachea midline. Absent: meningismus - Chest Chest inspection: Present: normal inspection - Respiratory Respiratory exam: Present: normal lung sounds bilaterally. Absent: respiratory distress, wheezes - Cardiovascular Cardiovascular exam: Present: normal rhythm, tachycardia, normal heart sounds - Abdominal Exam Abdominal exam: Present: soft, Non-Tender. Absent: distention - Extremities Exam Extremities exam: Present: normal capillary refill, pedal edema (2+ pitting feet to knees) - Expanded Lower Extremity Exam Upper leg exam: Absent: tenderness Knee exam: Present: normal inspection, full ROM. Absent: tenderness Lower leg exam: Present: tenderness (Mild), swelling (Pitting edema, bilateral, symmetric), erythema (Erythema and vesicular lesions across bilateral anterior lower legs consistent with significant pitting edema). Absent: ecchymosis, Homans' sign Ankle exam: Present: full ROM. Absent: tenderness, erythema Foot/toe exam: Present: full ROM, tenderness, swelling (Mild around the debrided ulcer), erythema (Moderate surrounding the debrided ulcer). Absent: ecchymosis, deformity 1 - Recently debrided diabetic foot ulcer with tenderness, mild edema and moderate surrounding erythema. No purulent drainage on the wound, but significant drainage on the two day old, dirty dressing 2 - Erythema 3 - Stage I ulceration Neurovascular/Tendon exam: Present: normal capillary refill. Absent: pulse deficit, motor deficit, sensory deficit, tendon deficit, extremity cold to touch , pallor, normal fine/light touch (Decreased sensation in the lower extremities bilaterally), foot drop, significant pain with passive ROM of distal joint - Neurological Exam Neurological exam: Present: alert, oriented X3, CN II-XII intact - Psychiatric Psychiatric exam: Present: normal affect, normal mood - Skin Skin exam: Present: warm, dry, normal color Course Course Narrative: Patient presents for evaluation because her doctor called her at home and told her her labs were abnormal and that she should come to the hospital. The lab results I see from February 22 include an elevated white blood cell count greater than 16, an ESR of 115 and a CRP of 61. Patient states, "I have not been feeling very well and thought maybe I had a UTI or something because she (the vulcanizer rubber plate ) told me that the wound looked okay". The patient's wound is erythematous and edematous. I see no purulent drainage. The erythema extends approximately 5 cm around the wound. Labs and an x-ray have been ordered. Fluids and antibiotics have been ordered as well. Vascular access is very limited in this patient. They were able to get one small peripheral line. However, they were unable to get any blood for the laboratory evaluation. The PICC team was consulted. Labs are still pending. The case has been discussed with Dr. Torres. He has had [id number] time with the patient and agrees with the assessment and plan to admit the patient. Patient's x-ray does not show osteomyelitis. Labs are not worse than two days ago. She does not have an elevated lactic acid and has no serum ketones. Given the patient's inability to provide wound care for herself, she now has an infected diabetic foot ulcer. We will proceed with plan to admit her for further evaluation and treatment. The case was discussed with the hospitalist. He will admit the patient. Vital Signs Temperature 98.1 F 02/24/17 10:22 Pulse Rate 106 02/24/17 10:22 Respiratory Rate 18 02/24/17 10:22 Blood Pressure 215/90 02/24/17 10:22 O2 Sat by Pulse Oximetry 96 02/24/17 10:22 Temperature 98.1 F 02/24/17 10:22 Pulse Rate 100 02/24/17 12:07 Respiratory Rate 18 02/24/17 12:07 Blood Pressure 179/88 02/24/17 12:07 O2 Sat by Pulse Oximetry 95 02/24/17 12:07 Oxygen Delivery Oxygen Delivery Room Air Medical Decision Making - Medical Records Medical records reviewed: Yes I reviewed the patient's medical records. - Lab Data Lab results reviewed: Yes I reviewed the patient's lab results. Result diagrams: 02/24/17 11:59 02/24/17 11:59 Lab Results 02/24/17 02/24/17 02/24/17 Range/Units 11:20 11:59 11:59 WBC 13.1 H (4.3-11.1) K/mcL RBC 4.40 (3.82-4.97) M/mcL Hgb 11.2 L (11.5-15.4) g/dL Hct 35.6 (35.3-44.9) % MCV 80.9 L (83.0-100.0) fL MCH 25.5 L (28.0-33.3) pg MCHC 31.5 L (31.6-35.5) g/dL RDW 14.6 H (11.5-14.5) % Plt Count 216 (140-400) K/mcL MPV 12.7 H (9.4-12.4) fL Immature Gran % 0.9 (0-4) % Seg Neutrophils % 73.5 % Lymphocytes % 19.0 % Monocytes % 4.6 % Eosinophils % 1.4 % Basophils % 0.6 % Neutrophils # 9.7 H (1.6-8.9) K/mcL Lymphocytes # 2.5 (0.6-4.6) K/mcL Monocytes # 0.6 (0.0-1.3) K/mcL Eosinophils # 0.2 (0.0-0.6) K/mcL Basophils # 0.1 (0.0-0.2) K/mcL Sodium 134 L (136-145) mEq/L Potassium 4.9 H (3.5-4.5) mEq/L Chloride 100 (98-109) mEq/L Carbon Dioxide 26 (19-29) mEq/L BUN 29 H (7-20) mg/dL Creatinine 0.80 (0.57-1.11) mg/dL Est GFR ( Amer) > 60 (> 60) Est GFR (Non-Af Amer) > 60 (> 60) BUN/Creatinine Ratio 36 H (6-26) Glucose 223 H (70-99) mg/dL Calculated Osmolality 291 (280-300) Lactic Acid (0.5-2.2) mmol/L Calcium 9.0 (8.6-10.8) mg/dL Phosphorus 3.4 (2.3-4.7) mg/dL Magnesium 1.6 (1.6-2.6) mg/dL Beta-Hydroxybutyric Acd (0.02-0.27) mmol/L Urine Color Yellow (Yellow) Urine Clarity Clear (Clear) Urine pH 6.0 (5.0-8.0) pH Units Ur Specific [place] 1.027 H (1.010-1.025) Urine Protein 100 H (Neg-Trace) mg/dL Urine Glucose (UA) 500 H (Normal) mg/dL Urine Ketones Negative (Negative) mg/dL Urine Blood Negative (Negative) Urine Nitrite Negative (Negative) Urine Bilirubin Negative (Negative) Urine Urobilinogen Normal (Normal) mg/dL Ur Leukocyte Esterase Moderate H (Negative) Urine Microscopic RBC 0-3 (0-3) per hpf Urine Microscopic WBC 30-50 H (0-3) per hpf Ur Squamous Epith Cells Many H (None-Few) per lpf Urine Bacteria None Seen (None-Few) per hpf Hyaline Casts None Seen (None-Few) per lpf Ur Culture Indicated? YES A (NO) 02/24/17 02/24/17 Range/Units 11:59 11:59 WBC (4.3-11.1) K/mcL RBC (3.82-4.97) M/mcL Hgb (11.5-15.4) g/dL Hct (35.3-44.9) % MCV (83.0-100.0) fL MCH (28.0-33.3) pg MCHC (31.6-35.5) g/dL RDW (11.5-14.5) % Plt Count (140-400) K/mcL MPV (9.4-12.4) fL Immature Gran % (0-4) % Seg Neutrophils % % Lymphocytes % % Monocytes % % Eosinophils % % Basophils % % Neutrophils # (1.6-8.9) K/mcL Lymphocytes # (0.6-4.6) K/mcL Monocytes # (0.0-1.3) K/mcL Eosinophils # (0.0-0.6) K/mcL Basophils # (0.0-0.2) K/mcL Sodium (136-145) mEq/L Potassium (3.5-4.5) mEq/L Chloride (98-109) mEq/L Carbon Dioxide (19-29) mEq/L BUN (7-20) mg/dL Creatinine (0.57-1.11) mg/dL Est GFR ( Amer) (> 60) Est GFR (Non-Af Amer) (> 60) BUN/Creatinine Ratio (6-26) Glucose (70-99) mg/dL Calculated Osmolality (280-300) Lactic Acid 1.8 (0.5-2.2) mmol/L Calcium (8.6-10.8) mg/dL Phosphorus (2.3-4.7) mg/dL Magnesium (1.6-2.6) mg/dL Beta-Hydroxybutyric Acd 0.21 (0.02-0.27) mmol/L Urine Color (Yellow) Urine Clarity (Clear) Urine pH (5.0-8.0) pH Units Ur Specific [place] (1.010-1.025) Urine Protein (Neg-Trace) mg/dL Urine Glucose (UA) (Normal) mg/dL Urine Ketones (Negative) mg/dL Urine Blood (Negative) Urine Nitrite (Negative) Urine Bilirubin (Negative) Urine Urobilinogen (Normal) mg/dL Ur Leukocyte Esterase (Negative) Urine Microscopic RBC (0-3) per hpf Urine Microscopic WBC (0-3) per hpf Ur Squamous Epith Cells (None-Few) per lpf Urine Bacteria (None-Few) per hpf Hyaline Casts (None-Few) per lpf Ur Culture Indicated? (NO) Attestation Statement - Attestation Attestation: For this encounter, I have reviewed the STATISTICAL CLERK ADVERTISING or PA documentation, treatment plan, and medical decision making; and I have had face to face time with this patient. 57-year-old diabetic saw a vulcanizer rubber plate and was found to have a diabetic ulcer on the foot. Lab work showed an elevated white count. Physical exam there is ulceration with surrounding erythema. We'll obtain lab work and imaging the patient will require admission for IV antibiotics.
[2017-02-24 11:35] LABS: Bilirubin,Urine Negative (Negative); Blood,Urine Negative (Negative); Clarity,Urine Clear (Clear); Color,Urine Yellow (Yellow); Glucose,Urine (UA) 500 mg/dL (Normal); Ketones,Urine Negative (Negative); Leukocyte Esterase,Urine Moderate (Negative); Nitrite,Urine Negative (Negative); Protein,Urine 100 mg/dL (Neg-Trace); Specific Gravity,Urine 1.027 (1.010-1.025); Urobilinogen,Urine Normal (Normal)
[2017-02-24 11:37] LABS: Bacteria,Urine None Seen per hpf (None-Few); Hyaline Casts,Urine None Seen per lpf (None-Few); Squamous Epithelial Cell,Urine Many per lpf (None-Few); WBC,Urine 30-50 per hpf (0-3)
[2017-02-24 11:48] LABS: RBC,Urine 0-3 per hpf (0-3)
[2017-02-24 12:07] LABS: Basophils # 0.1 K/mcL (0.0-0.2); Basophils % 0.6 %; Eosinophils # 0.2 K/mcL (0.0-0.6); Eosinophils % 1.4 %; Hematocrit 35.6 % (35.3-44.9); Hemoglobin 11.2 g/dL (11.5-15.4); Immature Granulocytes % 0.9 % (0-4); Lymphocytes # 2.5 K/mcL (0.6-4.6); Mean Corpuscular HGB Conc 31.5 g/dL (31.6-35.5); Mean Corpuscular Hemoglobin 25.5 pg (28.0-33.3); Mean Corpuscular Volume 80.9 fL (83.0-100.0); Mean Platelet Volume 12.7 fL (9.4-12.4); Monocytes # 0.6 K/mcL (0.0-1.3); Monocytes % 4.6 %; Neutrophils # 9.7 K/mcL (1.6-8.9); Platelet Count 216 K/mcL (140-400); Red Cell Distribution Width 14.6 % (11.5-14.5); Segmented Neutrophils % 73.5 %
[2017-02-24 12:20] LABS: BUN/Creatinine Ratio 36 (6-26); Blood Urea Nitrogen 29 mg/dL (7-20); Carbon Dioxide 26 mEq/L (19-29); Chloride 100 mEq/L (98-109); Glucose 223 mg/dL (70-99); Magnesium 1.6 mg/dL (1.6-2.6); Osmolality,Calculated 291 (280-300); Phosphorous 3.4 mg/dL (2.3-4.7); Potassium 4.9 mEq/L (3.5-4.5); Sodium 134 mEq/L (136-145); eGFR For African Americans > 60 (> 60); eGFR For Non-African Americans > 60 (> 60)
[2017-02-24] MEDS ORDERED: clonazePAM 0.5 MG TABLET PO PRN (12:47)
[2017-02-24] MEDS ORDERED: Primidone 50 MG TABLET PO PRN (12:47)
[2017-02-24] MEDS ORDERED: Dextrose Gel 15 GM PO PRN ×2 (12:50)
[2017-02-24] MEDS ORDERED: Naloxone 0.4 MG/ML INJ IVP PRN (12:50)
[2017-02-24] MEDS ORDERED: *HR* Morphine 2 MG/ML SYRINGE IVP PRN (12:50)
[2017-02-24] MEDS ORDERED: Acetaminophen 325 MG TABLET PO PRN (12:50)
[2017-02-24] MEDS ORDERED: *HR* Dextrose 50 % in Water (Syg) 50 ML SYRINGE IVP PRN (12:50)
[2017-02-24] MEDS ORDERED: D5% in Water 1,000 ML IVC PRN (12:50)
[2017-02-24] MEDS ORDERED: Ondansetron 4 MG/2 ML VIAL IVP PRN (12:50)
--- NOTE | 2017-02-24 12:58 | Internal Med History&Physical ---
Date of Encounter: 02/24/17 Time of Encounter: 12:56 Assessment and Plan (1) Sepsis Current visit: No Status: Resolved Sepsis secondary to right foot cellulitis, also possible cellulitis in both lower extremities/shins Start Ancef IV, blood cultures and wound culture Check a chest x-ray Gentle hydration with normal saline for 1 L only at 75 mL/h, may continue/ resume Lasix afterwards Repeat lactic acid in 4 hours Omeprazole for GI prophylaxis and subcutaneous heparin for DVT prophylaxis. The patient will be admitted as inpatient, expected stay [facility] midnights. Full code. Time spent on this admission 40 minutes. Qualifiers: Sepsis type: sepsis due to unspecified organism Qualified Code(s): A41.9 - Sepsis, unspecified organism (2) UTI (urinary tract infection) Current visit: No Status: Acute Await urine culture, patient is asymptomatic Qualifiers: Urinary tract infection type: site unspecified Hematuria presence: without hematuria Qualified Code(s): N39.0 - Urinary tract infection, site not specified (3) Morbid obesity Current visit: No Status: Chronic (4) HTN (hypertension) Current visit: Yes Status: Chronic May use hydralazine as needed Qualifiers: Hypertension type: essential hypertension Qualified Code(s): I10 - Essential (primary) hypertension (5) Cellulitis Current visit: No Status: Acute Qualifiers: Site of cellulitis of extremity: lower extremity Laterality: right Qualified Code(s): L03.115 - Cellulitis of right lower limb (6) Type 2 diabetes mellitus Current visit: No Status: Chronic Continue insulin sliding scale and Lantus/Levemir Qualifiers: Diabetes mellitus complication status: with neurologic complications Diabetes mellitus complication detail: with polyneuropathy Diabetes mellitus intermediate designer insulin use: with intermediate designer use Qualified Code(s): E11.42 - Type 2 diabetes mellitus with diabetic polyneuropathy; Z79.4 - intermodal customer service (current) use of insulin (7) CHF (congestive heart failure) Current visit: Yes Status: Acute Chronic diastolic CHF, no exacerbation May resume Lasix if stable Qualifiers: Congestive heart failure type: diastolic Congestive heart failure chronicity: chronic Qualified Code(s): I50.32 - Chronic diastolic (congestive ) heart failure Internal Medicine - H&P: HPI Chief complaint: Right foot infection Admitted From: Emergency Dept History of present illness: Ms. Magallanes is a 57 year old female with a past medical history of diabetes type 2 insulin-dependent, recurrent UTIs, morbid obesity, neuropathy. Was seen by her provisioning specialist Dr. Stoll 2 days ago and had lab work. Today she was called because her labs were abnormal, ESR was 115 CRP 61 white blood cell count today is 13.1 and she has a heart rate of 106 and says that her right foot ulcer has been getting worse. The area looks more erythematous tender but both lower extremities appear erythematosus warm and tender. An x-ray of the right foot was taken and showed no osteomyelitis although the was possibly cortical irregularities in the fifth digit MTP joint. UA shows 50 white blood cells although she denies any dysuria. Glucose is 223. The patient has been complaining of chills and appears slightly dehydrated. Denies any other complaints, no chest pain, shortness of breath, no fevers or sick contacts. No chest x-ray was done Past Med Surg Social Fam HX - Past Medical History Medical history: CHF (Diastolic CHF with an ejection fraction of 60% showing moderate diastolic dysfunction), diabetes (Insulin-dependent), GERD, hyperlipidemia, hypertension, other (Recurrent UTIs, hypertension, hyperlipidemia, morbid obesity, diabetic neuropathy, anxiety) Psychiatric history: depression - Past Surgical History Surgical History: hysterectomy, other (Neck surgery) - Social History Smoking Status: Never smoker Smokeless Tobacco Status: No Alcohol use: none Drug use: none - Family History Mother Living Status: Hx Family Endocrine Disorder: Yes (Dm) Father Living Status: - Additional Family History Additional family history: Mother with diabetes Internal Medicine - H&P: Meds Atorvastatin [Lipitor] 40 mg PO HS 01/11/16 [History] Brimonidine 0.2% [Alphagan] 1 drop BOTH EYES BID 01/11/16 [History] Insulin ASPART [Novolog Flexpen] 6 - 14 unit SQ TID 01/11/16 [History] Insulin Glargine,Hum.rec.anlog [Lantus Solostar] 100 unit SQ BID 01/11/16 [ History] Latanoprost [Xalatan] 1 drop BOTH EYES HS 01/11/16 [History] Loratadine [Claritin] 10 mg PO DAILY 01/11/16 [History] Metoclopramide [Reglan] 10 mg PO ACHS 01/11/16 [History] Omeprazole [PriLOSEC] 40 mg PO DAILY 01/11/16 [History] Primidone [Mysoline] 25 - 50 mg PO BID PRN 01/11/16 [History] Tizanidine HCl 4 mg PO HS 01/11/16 [History] clonazePAM [Klonopin] 0.5 mg PO BID PRN 01/11/16 [History] Acetaminophen [Tylenol] 650 mg PO Q6HR PRN #0 tablet 01/12/16 [Rx] Ascorbic Acid [Vitamin C] 500 mg PO BID 03/25/16 [History] Docusate Sodium [Colace] 200 mg PO BID 03/25/16 [History] Ferrous Sulfate 324 mg PO BID 03/25/16 [History] Chlorhexidine Gluconate [Hibiclens] 1 appl TP DAILY 12/06/16 [History] Furosemide [Lasix] 40 mg PO BID 12/06/16 [History] Miconazole 2% ointment [Aloe [place] Antifungal Ointment] 1 appl TP BID 12/06/16 [ History] Mupirocin [Bactroban Oint] 1 appl TP TID 12/06/16 [History] Polyethylene Glycol 3350 [Smoothlax] 17 gm PO DAILY 12/06/16 [History] Pregabalin [Lyrica] 75 mg PO BID 12/06/16 [History] Silver Sulfadiazine [Silvadene] 1 appl TP DAILY 12/06/16 [History] Cephalexin [Keflex] 500 mg PO BID #14 capsule 12/08/16 [Rx] Chlorthalidone 12.5 mg PO DAILY #0 tablet 12/08/16 [Rx] Losartan Potassium [Cozaar] 50 mg PO DAILY #0 12/08/16 [Rx] Metoprolol [Lopressor] 25 mg PO BID #60 tablet 12/08/16 [Rx] Potassium Chloride [K-Tab ER] 20 meq PO TID #0 12/08/16 [Rx] Benzonatate [Tessalon] 200 mg PO TID #20 capsule 12/30/16 [Rx] cephALEXin [Keflex] 500 mg PO QID #40 capsule 12/30/16 [Rx] Allergies lisinopril [From Zestril] Adverse Reaction (Verified 11/25/16 10:31) Rash All Systems PM: A 10-system review of systems was performed and is negative for pertinent findings except as documented above in the HPI. Review of systems: No chest pain, shortness of breath, no dysuria. Other systems out of the 10 reviewed were negative. Patient complaining of some weakness - Constitutional Vitals: Temp Pulse Resp BP Pulse Ox 98.1 F 100 18 179/88 95 02/24/17 10:22 02/24/17 12:07 02/24/17 12:07 02/24/17 12:07 02/24/17 12:07 General appearance: Present: A&O X 3, morbidly obese - Head Head exam: Present: atraumatic, normocephalic - Eye Eye exam: Present: PERRL, conjuntiva pink, sclera anicteric Pupils: Present: PERRL - Neck Neck exam general surgery: Present: supple, trachea midline. Absent: lymphadenopathy - Respiratory Respiratory exam: Present: decreased breath sounds, CTAB. Absent: accessory muscle use, rales, rhonchi, wheezes - Cardiovascular Cardiovascular exam: Present: RRR, +S1, +S2. Absent: diastolic murmur, gallop, rubs, systolic murmur - GI/Abdominal GI/Abdominal exam: Present: normal bowel sounds, soft, no peritoneal signs. Absent: distended, tenderness - Extremities Exam Extremities exam: Present: pedal edema (2 pitting edema in both lower extremities with extensive erythema that appears acute on chronic. There is a right foot ulcer located in the distal internal sole of less than 2 cm, no necrotic tissue but surrounded by erythema), warm, radial pulses palpable and symetrical. Absent: calf tenderness, cyanotic - Neurological Exam Neurological exam: Present: CN II-XII intact, oriented X3, no focal deficits. Absent: pronater drift, facial droop, speech deficit - Skin Skin exam: Present: dry. Absent: intact Internal Med - H&P Results - Labs CBC & Chem 7: 02/24/17 11:59 02/24/17 11:59
--- NOTE | 2017-02-24 16:15 | Electrocardiograph Report ---
[facility] Test Date: 2017-02-24 Pat Name: Pauly Magallanes Department: 104 Room: 3A31 Gender: F Block Cuber: : 1960 Requested By: Kat Mata Order Number: [id number] Reading MD: Della Mendez DO Measurements Intervals [place] Rate: 102 P: 53 SC: 125 QRS: 8 QRSD: 86 T: 48 QT: 339 QTc: 398 Interpretive Statements SINUS TACHYCARDIA ABNORMAL RHYTHM ECG Electronically Signed On 02-24-2017 16:13:31 EDT by Della Mendez DO
[2017-02-24] MEDS: Insulin LISPRO 300 UNITS/3 ML VIAL SQ SCH ×4 (17:27→20:48)
[2017-02-24] MEDS: 0.9 % Sodium Chloride 1,000 ML IVC SCH (17:28)
[2017-02-24] MEDS: ceFAZolin 2,000 MG in D5% in Water 100 ML IVPB SCH ×2 (17:33→20:44)
[2017-02-24] MEDS: *HR* Heparin 5,000 UNIT/ML VIAL SQ SCH (17:34)
[2017-02-24] MEDS: Pregabalin 75 MG CAPSULE PO SCH (20:50)
[2017-02-24] MEDS: Furosemide 40 MG TABLET PO SCH (20:54)
[2017-02-24] MEDS: Insulin DETEMIR 100 UNIT/ML X5UNITS SQ SCH (20:55)
[2017-02-24] MEDS ORDERED: NON-FORMULARY MEDICATION 1 EACH EACH (Insulin Glargine,Hum.Rec.Anlog [Lantus Solostar] 100 SQ SCH (21:00)
[2017-02-25] MEDS: *HR* Heparin 5,000 UNIT/ML VIAL SQ SCH ×3 (00:37→18:24)
[2017-02-25] MEDS: ceFAZolin 2,000 MG in D5% in Water 100 ML IVPB SCH ×3 (01:23→16:54)
[2017-02-25] MEDS: 0.9 % Sodium Chloride 1,000 ML IVC SCH ×2 (05:51→18:29)
[2017-02-25] MEDS: Insulin LISPRO 300 UNITS/3 ML VIAL SQ SCH ×7 (08:38→20:17)
[2017-02-25] MEDS: Pregabalin 75 MG CAPSULE PO SCH ×2 (08:43→20:11)
[2017-02-25] MEDS: Furosemide 40 MG TABLET PO SCH ×2 (08:43→18:24)
[2017-02-25] MEDS: Nystatin POWDER 30 GM BOTTLE TP SCH ×3 (08:44→21:00)
[2017-02-25] MEDS: Insulin DETEMIR 100 UNIT/ML X5UNITS SQ SCH ×2 (08:44→20:11)
[2017-02-25 09:39] LABS: Hematocrit 37.6 % (35.3-44.9); Hemoglobin 11.9 g/dL (11.5-15.4); Mean Corpuscular HGB Conc 31.6 g/dL (31.6-35.5); Mean Corpuscular Hemoglobin 25.6 pg (28.0-33.3); Mean Corpuscular Volume 80.9 fL (83.0-100.0); Mean Platelet Volume 13.1 fL (9.4-12.4); Platelet Count 195 K/mcL (140-400); Red Blood Count 4.65 M/mcL (3.82-4.97); Red Cell Distribution Width 14.9 % (11.5-14.5)
[2017-02-25 09:47] LABS: BUN/Creatinine Ratio 24 (6-26); Blood Urea Nitrogen 21 mg/dL (7-20); Calcium 8.8 mg/dL (8.6-10.8); Carbon Dioxide 25 mEq/L (19-29); Chloride 102 mEq/L (98-109); Glucose 166 mg/dL (70-99); Osmolality,Calculated 291 (280-300); Sodium 137 mEq/L (136-145); eGFR For African Americans > 60 (> 60); eGFR For Non-African Americans > 60 (> 60)
--- NOTE | 2017-02-25 14:26 | Internal Med Progress Note ---
Date of Encounter: 02/25/17 Time of Encounter: 08:30 - Assessment and plan (1) Sepsis Current Visit: No Status: Acute Assessment and plan: Sepsis present on admission secondary to right foot cellulitis and right lower leg cellulitis and also due to wound of right foot Continue IV cefazolin and IV Vancomycin Chest x-ray - mild left basilar atelectasis otherwise no acute cardiopulmonary disease Right foot x-ray - questionable cortical irregularity presumably and long digit at the level of the MTP diffuse soft tissue swelling WBC - 11.4 Blood culture and urine culture - pending EKG - sinus tachycardia UA - moderate leukocyte esterase Podiatry consult pending Dressing change to right foot daily care, wound care, Labs in a.m. Qualifiers: Sepsis type: sepsis due to unspecified organism Qualified Code(s): A41.9 - Sepsis, unspecified organism (2) Cellulitis Current Visit: No Status: Acute Assessment and plan: Right foot and right lower leg cellulitis - plan as above Qualifiers: Site of cellulitis of extremity: lower extremity Laterality: right Qualified Code(s): L03.115 - Cellulitis of right lower limb (3) UTI (urinary tract infection) Current Visit: No Status: Acute Assessment and plan: Continue empiric IV antibiotics, cultures pending Qualifiers: Urinary tract infection type: acute cystitis Hematuria presence: with hematuria Qualified Code(s): N30.01 - Acute cystitis with hematuria (4) Diabetes mellitus Current Visit: No Status: Chronic Assessment and plan: Diabetes mellitus type 2, insulin-dependent, hyperglycemia Continue insulin Levemir, insulin sliding scale, glucose checks Qualifiers: Diabetes mellitus type: type 2 Diabetes mellitus complication status: with skin complications Diabetes mellitus complication detail: with other skin complication Diabetes mellitus shelter insulin use: with middle or intermediate school principal use Qualified Code(s): E11.628 - Type 2 diabetes mellitus with other skin complications; Z79.4 - correction (current) use of insulin (5) Morbid obesity Current Visit: No Status: Chronic Assessment and plan: BMI 62.6 (6) HTN (hypertension) Current Visit: Yes Status: Chronic Assessment and plan: Essential hypertension, controlled, continue home meds, monitor Qualifiers: Hypertension type: essential hypertension Qualified Code(s): I10 - Essential (primary) hypertension (7) CHF (congestive heart failure) Current Visit: Yes Status: Chronic Assessment and plan: Chronic diastolic CHF - not in exacerbation Continue home meds Qualifiers: Congestive heart failure type: diastolic Congestive heart failure chronicity: chronic Qualified Code(s): I50.32 - Chronic diastolic (congestive ) heart failure (8) DVT prophylaxis Current Visit: No Status: Acute Assessment and plan: Continue heparin subcutaneous - Time Spent With Patient 25 - 35 minutes - Subjective Interval history: Examined this morning. Patient is awake and alert. Not in any distress. Denies chest pain or shortness of breath. No fever. Tolerating oral diet. Admitted for sepsis secondary to right foot cellulitis. She continues to have severe bilateral lower leg edema which is chronic associated with stasis dermatitis. No other acute events or complaints. - Constitutional Vitals: Temp Pulse Resp BP Pulse Ox 98.3 F 81 16 114/68 96 02/25/17 10:19 02/25/17 10:19 02/25/17 10:19 02/25/17 10:19 02/25/17 10:19 General appearance: Present: A&O X 3, morbidly obese, no acute distress, answers questions appropriately - Head Head exam: Present: atraumatic - Eye Eye exam: Present: EOMI - Neck Neck exam general surgery: Present: supple - Respiratory Respiratory exam: Present: decreased breath sounds (In both bases). Absent: rales, rhonchi, wheezes - Cardiovascular Cardiovascular exam: Present: RRR, +S1, +S2 - GI/Abdominal GI/Abdominal exam: Present: distended (Obese), soft. Absent: firm, guarding, rigid, tenderness - Extremities Exam Extremities exam: Present: pedal edema (4+ pitting edema on both lower legs with extensive erythema) Additional comments: Right foot ulcer present, no necrotic tissue surrounded by erythema, extensive erythema right lower leg with stasis dermatitis and extensive edema - Neurological Exam Neurological exam: Present: alert, oriented X3, no focal deficits Internal Medicine: Result - Labs CBC & Chem 7: 02/25/17 09:16 02/25/17 09:16 Labs: Short CBC 02/25/17 Range/Units 09:16 WBC 11.4 H (4.3-11.1) K/mcL Hgb 11.9 (11.5-15.4) g/dL Hct 37.6 (35.3-44.9) % Plt Count 195 (140-400) K/mcL BMP 02/25/17 09:16 Sodium 137 Potassium 5.0 H Chloride 102 Carbon Dioxide 25 BUN 21 H Creatinine 0.89 Glucose 166 H Calcium 8.8 Consult Discharge Plan - Plan Referrals: Jc Tsai MD [Primary Care Provider] -
[2017-02-25] MEDS: Vancomycin 2,000 MG in D5% in Water 500 ML IVPB SCH (16:45)
[2017-02-25] MEDS ORDERED: Vancomycin 1,000 MG in D5% in Water 250 ML IVPB SCH (18:00)
[2017-02-26] MEDS: *HR* Heparin 5,000 UNIT/ML VIAL SQ SCH ×3 (00:47→16:18)
[2017-02-26] MEDS: ceFAZolin 2,000 MG in D5% in Water 100 ML IVPB SCH ×3 (00:47→17:27)
[2017-02-26] MEDS: Vancomycin 2,000 MG in D5% in Water 500 ML IVPB SCH ×2 (02:24→16:13)
[2017-02-26 03:40] LABS: BUN/Creatinine Ratio 28 (6-26); Blood Urea Nitrogen 23 mg/dL (7-20); Calcium 8.4 mg/dL (8.6-10.8); Carbon Dioxide 27 mEq/L (19-29); Chloride 102 mEq/L (98-109); Glucose 80 mg/dL (70-99); Osmolality,Calculated 289 (280-300); Potassium 3.8 mEq/L (3.5-4.5); Sodium 138 mEq/L (136-145); eGFR For African Americans > 60 (> 60); eGFR For Non-African Americans > 60 (> 60)
[2017-02-26 04:53] LABS: Basophils # 0.1 K/mcL (0.0-0.2); Basophils % 0.5 %; Eosinophils # 0.2 K/mcL (0.0-0.6); Eosinophils % 1.8 %; Hematocrit 34.8 % (35.3-44.9); Hemoglobin 10.7 g/dL (11.5-15.4); Immature Granulocytes % 0.9 % (0-4); Lymphocytes # 2.6 K/mcL (0.6-4.6); Lymphocytes % 21.7 %; Mean Corpuscular HGB Conc 30.7 g/dL (31.6-35.5); Mean Corpuscular Hemoglobin 25.5 pg (28.0-33.3); Mean Corpuscular Volume 82.9 fL (83.0-100.0); Mean Platelet Volume 13.5 fL (9.4-12.4); Monocytes # 0.6 K/mcL (0.0-1.3); Monocytes % 5.1 %; Neutrophils # 8.4 K/mcL (1.6-8.9); Platelet Count 175 K/mcL (140-400); Red Cell Distribution Width 14.9 % (11.5-14.5)
[2017-02-26] MEDS: 0.9 % Sodium Chloride 1,000 ML IVC SCH ×2 (05:35→20:25)
[2017-02-26] MEDS: Ascorbic Acid 500 MG TABLET PO SCH ×2 (08:26→20:25)
[2017-02-26] MEDS: Pregabalin 75 MG CAPSULE PO SCH ×2 (08:27→20:25)
[2017-02-26] MEDS: Furosemide 40 MG TABLET PO SCH ×2 (08:27→16:18)
[2017-02-26] MEDS: Insulin DETEMIR 100 UNIT/ML X5UNITS SQ SCH ×2 (08:28→23:01)
[2017-02-26] MEDS: Insulin LISPRO 300 UNITS/3 ML VIAL SQ SCH ×7 (08:29→23:03)
[2017-02-26] MEDS: Nystatin POWDER 30 GM BOTTLE TP SCH ×3 (08:30→23:02)
--- NOTE | 2017-02-26 11:36 | Internal Med Progress Note ---
Date of Encounter: 02/26/17 Time of Encounter: 09:10 - Assessment and plan (1) Sepsis Current Visit: No Status: Acute Assessment and plan: Sepsis present on admission secondary to right foot cellulitis and bilateral lower leg cellulitis and also due to wound of right foot - improving slowly Continue IV cefazolin and IV Vancomycin Chest x-ray - mild left basilar atelectasis otherwise no acute cardiopulmonary disease Right foot x-ray - questionable cortical irregularity presumably and long digit at the level of the MTP diffuse soft tissue swelling WBC - 12.1 Blood culture and urine culture - pending EKG - sinus tachycardia UA - moderate leukocyte esterase Podiatry consult pending Dressing change to right foot daily care, wound care, Labs in a.m. Qualifiers: Sepsis type: sepsis due to unspecified organism Qualified Code(s): A41.9 - Sepsis, unspecified organism (2) Cellulitis Current Visit: No Status: Acute Assessment and plan: Right foot and right lower leg cellulitis - plan as above Qualifiers: Site of cellulitis of extremity: lower extremity Laterality: right Qualified Code(s): L03.115 - Cellulitis of right lower limb (3) UTI (urinary tract infection) Current Visit: No Status: Acute Assessment and plan: Continue empiric IV antibiotics, cultures contaminated Qualifiers: Urinary tract infection type: acute cystitis Hematuria presence: with hematuria Qualified Code(s): N30.01 - Acute cystitis with hematuria (4) Diabetes mellitus Current Visit: No Status: Chronic Assessment and plan: Diabetes mellitus type 2, insulin-dependent, hyperglycemia Continue insulin Levemir, insulin sliding scale, glucose checks Qualifiers: Diabetes mellitus type: type 2 Diabetes mellitus complication status: with skin complications Diabetes mellitus complication detail: with other skin complication Diabetes mellitus intermodal customer service insulin use: with long-term use Qualified Code(s): E11.628 - Type 2 diabetes mellitus with other skin complications; Z79.4 - intermodal dispatcher (current) use of insulin (5) Morbid obesity Current Visit: No Status: Chronic Assessment and plan: BMI 62.6 (6) HTN (hypertension) Current Visit: Yes Status: Chronic Assessment and plan: Essential hypertension, controlled, continue home meds, monitor Qualifiers: Hypertension type: essential hypertension Qualified Code(s): I10 - Essential (primary) hypertension (7) CHF (congestive heart failure) Current Visit: Yes Status: Chronic Assessment and plan: Chronic diastolic CHF - not in exacerbation Continue home meds Qualifiers: Congestive heart failure type: diastolic Congestive heart failure chronicity: chronic Qualified Code(s): I50.32 - Chronic diastolic (congestive ) heart failure (8) DVT prophylaxis Current Visit: No Status: Acute Assessment and plan: Continue heparin subcutaneous - Time Spent With Patient 25 - 35 minutes - Subjective Interval history: Examined this morning. Patient is awake and alert. Not in any distress. Denies chest pain or shortness of breath. No fever. Tolerating oral diet. Right foot cellulitis seems to be improving. She continues to have severe bilateral lower leg edema which is chronic and is associated with stasis dermatitis. No other acute events or complaints. - Constitutional Vitals: Temp Pulse Resp BP Pulse Ox 98.3 F 80 16 120/71 98 02/26/17 11:08 02/26/17 11:08 02/26/17 11:08 02/26/17 11:08 02/26/17 11:08 General appearance: Present: A&O X 3, morbidly obese, no acute distress, answers questions appropriately - Head Head exam: Present: atraumatic - Eye Eye exam: Present: EOMI - ENT ENT exam: Present: mucous membranes moist - Neck Neck exam general surgery: Present: supple - Respiratory Respiratory exam: Present: decreased breath sounds (Slightly decreased in both bases). Absent: rales, rhonchi, wheezes, tachypnea - Cardiovascular Cardiovascular exam: Present: RRR, +S1, +S2 - GI/Abdominal GI/Abdominal exam: Present: distended (Obese), soft. Absent: firm, guarding, rigid, tenderness - Extremities Exam Extremities exam: Present: pedal edema (4+ pitting edema both lower legs with extensive erythema) Additional comments: Right foot ulcer healing, erythema of the right lower leg and right foot and stasis dermatitis both lower legs with extensive edema. Erythema of left lower leg and right foot improving, no tenderness - Neurological Exam Neurological exam: Present: alert, oriented X3, no focal deficits Internal Medicine: Result - Labs CBC & Chem 7: 02/26/17 04:15 02/26/17 03:14 Labs: Short CBC 02/26/17 Range/Units 04:15 WBC 12.1 H (4.3-11.1) K/mcL Hgb 10.7 L (11.5-15.4) g/dL Hct 34.8 L (35.3-44.9) % Plt Count 175 (140-400) K/mcL Neutrophils # 8.4 (1.6-8.9) K/mcL BMP 02/26/17 03:14 Sodium 138 Potassium 3.8 D Chloride 102 Carbon Dioxide 27 BUN 23 H Creatinine 0.81 Glucose 80 Calcium 8.4 L Consult Discharge Plan - Plan Referrals: Jc Tsai MD [Primary Care Provider] -
--- NOTE | 2017-02-26 12:42 | Podiatry Consult Note ---
Date of Encounter: 02/26/17 Time of Encounter: 12:40 Assessment and Plan (1) Foot ulcer Current visit: Yes Status: Acute Qualifiers: Laterality: right Non-pressure ulcer stage: with fat layer exposed Qualified Code(s): L97.512 - Non-pressure chronic ulcer of other part of right foot with fat layer exposed (2) Foot ulcer Current visit: Yes Status: Acute Assessment: #1 ulcer medial aspect right first MTPJ and distal aspect of right great toe as described #2 No evidence of abscess or loculated collection of fluid #3 diabetes with multiple comorbidities including morbid obesity Plan: #1 we will begin local wound care by cleansing all wounds with soap and water and apply Santyl medical thick over both wounds followed by saline moist 4 x 4 dry 4 x 4 and Kerlix to be changed twice a day and offloading all areas that are susceptible by using Medix protective boots. #2 we will recommend use of Darco flat healing shoe to offload areas on the medial aspect of the first MTP and distal aspect of the right great toe Qualifiers: Laterality: right Qualified Code(s): L97.512 - Non-pressure chronic ulcer of other part of right foot with fat layer exposed History of Present Illness Chief complaint: Right Foot ulcer x 2 and cellulitis of both legs HPI: Ms. Magallanes is a 57 year old female, who was admitted through the ED for cellulitis of both legs, and ulceration of the right foot. Patient with long history of diabetes multiple comorbidities. Presently has no chest pain shortness of breath nausea vomiting fever or chills. Wound and cellulitis began approximately 3-5 days ago. Patient has morbid obesity with all its attenuated complications including peripheral edema which exacerbates her cellulitis of both legs in the pretibial region. Likely because of her peripheral edema in inappropriate shoe wear we see pressure ulcers on the medial aspect of the first MTPJ right foot the distal aspect of the right great toe both areas that are susceptible to pressure from shoes especially combined with significant edema, and diabetes Past Med Surg Social Fam HX - Past Medical History Medical history: CHF, diabetes, GERD, hyperlipidemia, hypertension, other Psychiatric history: depression - Past Surgical History Surgical History: hysterectomy, other - Social History Smoking Status: Never smoker Smokeless Tobacco Status: No Alcohol use: none Drug use: none - Family History Mother Living Status: Hx Family Endocrine Disorder: Yes (Dm) Father Living Status: Age at : 70 Hx Family Cardiac Disorders: No Hx Family Respiratory Disorders: No Hx Family Cancer: No Hx Family GI Disorders: No Hx Family Genitourinary Disorders: Yes Medications and Allergies Atorvastatin [Lipitor] 40 mg PO HS 01/11/16 [History] Brimonidine 0.2% [Alphagan] 1 drop BOTH EYES BID 01/11/16 [History] Insulin ASPART [Novolog Flexpen] 6 - 14 unit SQ TID 01/11/16 [History] Insulin Glargine,Hum.rec.anlog [Lantus Solostar] 100 unit SQ BID 01/11/16 [ History] Latanoprost [Xalatan] 1 drop BOTH EYES HS 01/11/16 [History] Loratadine [Claritin] 10 mg PO DAILY 01/11/16 [History] Metoclopramide [Reglan] 10 mg PO ACHS 01/11/16 [History] Omeprazole [PriLOSEC] 40 mg PO DAILY 01/11/16 [History] Primidone [Mysoline] 25 - 50 mg PO BID PRN 01/11/16 [History] Tizanidine HCl 4 mg PO HS 01/11/16 [History] clonazePAM [Klonopin] 0.5 mg PO BID PRN 01/11/16 [History] Acetaminophen [Tylenol] 650 mg PO Q6HR PRN #0 tablet 01/12/16 [Rx] Ascorbic Acid [Vitamin C] 500 mg PO BID 03/25/16 [History] Docusate Sodium [Colace] 200 mg PO BID 03/25/16 [History] Ferrous Sulfate 324 mg PO BID 03/25/16 [History] Chlorhexidine Gluconate [Hibiclens] 1 appl TP DAILY 12/06/16 [History] Furosemide [Lasix] 40 mg PO BID 12/06/16 [History] Miconazole 2% ointment [Aloe [place] Antifungal Ointment] 1 appl TP BID 12/06/16 [ History] Mupirocin [Bactroban Oint] 1 appl TP TID 12/06/16 [History] Polyethylene Glycol 3350 [Smoothlax] 17 gm PO DAILY 12/06/16 [History] Pregabalin [Lyrica] 75 mg PO BID 12/06/16 [History] Silver Sulfadiazine [Silvadene] 1 appl TP DAILY 12/06/16 [History] Chlorthalidone 12.5 mg PO DAILY #0 tablet 12/08/16 [Rx] Losartan Potassium [Cozaar] 50 mg PO DAILY #0 12/08/16 [Rx] Metoprolol [Lopressor] 25 mg PO BID #60 tablet 12/08/16 [Rx] Potassium Chloride [K-Tab ER] 20 meq PO TID #0 12/08/16 [Rx] Benzonatate [Tessalon] 200 mg PO TID #20 capsule 12/30/16 [Rx] Allergies lisinopril [From Zestril] Allergy (Verified 02/24/17 13:03) Rash All Systems Reviewed: A 10-system review of systems was performed and is negative for pertinent findings except as documented above in the HPI. Physical Exam - Constitutional Vitals: Temp Pulse Resp BP Pulse Ox 98.3 F 80 16 120/71 98 02/26/17 11:08 02/26/17 11:08 02/26/17 11:08 02/26/17 11:08 02/26/17 11:08 General appearance: morbidly obese - Cardiovascular Additional comments: Pedal pulses are palpable skins warm to touch. Edema 2/4 both feet and legs, chronic brawny edema and pitting edema - Expanded Lower Extremities Exam Neuro vascular tendon exam: Present: sensory deficit (Patient exhibits decreased epicritic sensation vibratory sensation 2 point discrimination light touch and vibration secondary to diabetes toes to tibia bilaterally. DTRs Achilles and patellar equal symmetrical. Babinski absent close is negative.) - Skin Additional comments: I observe a full-thickness ulceration on the medial aspect of the first MTPJ measuring 2.2 cm diameter by 2.2 cm 0.2 cm deep. 100% fibrous tissue. No undermining or tunneling or sinus tract. No lytic surrounding lymphangitis. No cellulitis. No jose foul or fetid odor. No active purulent drainage no necrosis.. I also observe an ulceration distal aspect right great toe measuring 1.3 cm x 1.3 cm with dry eschar again without ascending cellulitis fluctuance over necrosis.. Also observe a pre-ulcerative region on the medial aspect of the right calcaneus which was healed as of last visit in wound care clinic last month. Because of her history of jose ulceration she is at risk for re-ulceration because of pressure. We also observe cellulitis with trophic changes of both legs associated with morbid obesity peripheral edema and diabetes. No jose bleeding or drainage of the pretibial region of either leg. It is not hot to touch. We see hyperkeratosis scaling peeling all associated with her peripheral edema and morbid obesity and diabetes. There is no jose open lesion on the anterior aspect of both legs. No draining sinuses. No tunneling or undermining no open wound. Results - Labs Result Diagrams: 02/26/17 04:15 02/26/17 03:14 Labs: Abnormal lab results WBC 12.1 K/mcL (4.3-11.1) H 02/26/17 04:15 Hgb 10.7 g/dL (11.5-15.4) L 02/26/17 04:15 Hct 34.8 % (35.3-44.9) L 02/26/17 04:15 MCV 82.9 fL (83.0-100.0) L 02/26/17 04:15 MCH 25.5 pg (28.0-33.3) L 02/26/17 04:15 MCHC 30.7 g/dL (31.6-35.5) L 02/26/17 04:15 RDW 14.9 % (11.5-14.5) H 02/26/17 04:15 MPV 13.5 fL (9.4-12.4) H 02/26/17 04:15 Immature Plt Fraction 13.0 % (1.1-6.1) H 02/26/17 04:15 BUN 23 mg/dL (7-20) H 02/26/17 03:14 BUN/Creatinine Ratio 28 (6-26) H 02/26/17 03:14 POC Glucose 94 (58-89) H 02/26/17 11:07 Calcium 8.4 mg/dL (8.6-10.8) L 02/26/17 03:14 Ur Specific [place] 1.027 (1.010-1.025) H 02/24/17 11:20 Urine Protein 100 mg/dL (Neg-Trace) H 02/24/17 11:20 Urine Glucose (UA) 500 mg/dL (Normal) H 02/24/17 11:20 Ur Leukocyte Esterase Moderate (Negative) H 02/24/17 11:20 Urine Microscopic WBC 30-50 per hpf (0-3) H 02/24/17 11:20 Ur Squamous Epith Cells Many per lpf (None-Few) H 02/24/17 11:20 Ur Culture Indicated? YES (NO) A 02/24/17 11:20 H & H 02/26/17 Range/Units 04:15 Hgb 10.7 L (11.5-15.4) g/dL Hct 34.8 L (35.3-44.9) % All other labs normal. Consult Discharge Plan - Plan Referrals: Jc Tsai MD [Primary Care Provider] -
[2017-02-26] MEDS ORDERED: tiZANidine 4 MG TABLET PO SCH (21:00)
[2017-02-26] MEDS ORDERED: Latanoprost 2.5 ML BOTTLE BOTH EYES SCH (21:00)
[2017-02-27] MEDS: ceFAZolin 2,000 MG in D5% in Water 100 ML IVPB SCH ×2 (00:08→08:30)
[2017-02-27] MEDS: *HR* Heparin 5,000 UNIT/ML VIAL SQ SCH ×2 (00:09→05:45)
[2017-02-27 05:08] LABS: Basophils # 0.1 K/mcL (0.0-0.2); Basophils % 0.5 %; Eosinophils # 0.2 K/mcL (0.0-0.6); Hematocrit 34.2 % (35.3-44.9); Hemoglobin 10.7 g/dL (11.5-15.4); Immature Granulocytes % 1.3 % (0-4); Lymphocytes # 2.5 K/mcL (0.6-4.6); Lymphocytes % 22.9 %; Mean Corpuscular HGB Conc 31.3 g/dL (31.6-35.5); Mean Corpuscular Hemoglobin 25.8 pg (28.0-33.3); Mean Corpuscular Volume 82.4 fL (83.0-100.0); Mean Platelet Volume 13.3 fL (9.4-12.4); Monocytes # 0.6 K/mcL (0.0-1.3); Monocytes % 5.6 %; Neutrophils # 7.4 K/mcL (1.6-8.9); Platelet Count 178 K/mcL (140-400); Red Blood Count 4.15 M/mcL (3.82-4.97); Red Cell Distribution Width 15.2 % (11.5-14.5); Segmented Neutrophils % 67.7 %
[2017-02-27] MEDS: Insulin LISPRO 300 UNITS/3 ML VIAL SQ SCH ×3 (08:24→12:57)
[2017-02-27] MEDS: Insulin DETEMIR 100 UNIT/ML X5UNITS SQ SCH (08:31)
[2017-02-27] MEDS: Ascorbic Acid 500 MG TABLET PO SCH (08:32)
[2017-02-27] MEDS: Furosemide 40 MG TABLET PO SCH (08:32)
[2017-02-27] MEDS: Nystatin POWDER 30 GM BOTTLE TP SCH (08:36)
[2017-02-27] MEDS: Pregabalin 75 MG CAPSULE PO SCH (08:42)
[2017-02-27] MEDS: 0.9 % Sodium Chloride 1,000 ML IVC SCH (08:48)
--- NOTE | 2017-02-27 09:54 | Discharge Summary ---
Date of Encounter: 02/27/17 Time of Encounter: 09:00 - Discharge Diagnosis (1) Sepsis Priority: Primary Status: Acute Comments: Sepsis present on admission secondary to right foot cellulitis and bilateral lower leg cellulitis and also due to wound/ulcer of right foot - improved Continue PO antibiotics Chest x-ray - mild left basilar atelectasis otherwise no acute cardiopulmonary disease Right foot x-ray - questionable cortical irregularity presumably and long digit at the level of the MTP diffuse soft tissue swelling WBC - 11.0 Blood culture and urine culture - negative EKG - sinus tachycardia UA - moderate leukocyte esterase Follow up with Dr Stoll, podiatry as outpatient Dressing change to right foot daily, wound care by home health services Qualifiers: Sepsis type: sepsis due to unspecified organism Qualified Code(s): A41.9 - Sepsis, unspecified organism (2) Cellulitis Priority: Primary Status: Acute Comments: Right foot and b/l lower leg cellulitis - improved continue PO antibiotics Qualifiers: Site of cellulitis of extremity: lower extremity Laterality: right Qualified Code(s): L03.115 - Cellulitis of right lower limb (3) UTI (urinary tract infection) Priority: Primary Status: Acute Comments: UTI - POA, Cultures - negative continue PO antibiotics Qualifiers: Urinary tract infection type: acute cystitis Hematuria presence: with hematuria Qualified Code(s): N30.01 - Acute cystitis with hematuria (4) Diabetes mellitus Priority: Primary Status: Chronic Comments: DM Type 2, insulin dependent, hyperglycemia continue usual home dose of Insulin Qualifiers: Diabetes mellitus type: type 2 Diabetes mellitus complication status: with skin complications Diabetes mellitus complication detail: with other skin complication 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 Qualified Code(s): E11.628 - Type 2 diabetes mellitus with other skin complications; Z79.4 - alf (current) use of insulin (5) Morbid obesity Priority: Primary Status: Chronic Comments: BMI 62.1, needs PT as outpatient (6) HTN (hypertension) Priority: Secondary Status: Chronic Comments: Essential HTN Qualifiers: Hypertension type: essential hypertension Qualified Code(s): I10 - Essential (primary) hypertension (7) CHF (congestive heart failure) Priority: Secondary Status: Chronic Qualifiers: Congestive heart failure type: diastolic Congestive heart failure chronicity: chronic Qualified Code(s): I50.32 - Chronic diastolic (congestive ) heart failure - Discharge Medications Prescriptions: Amoxicillin/Clavulanate [Augmentin] 875 mg PO BIDWM 10 Days Aspirin 81 mg PO DAILY #30 tab.chew Collagenase Oint [Santyl] 1 appl TP BID #1 Sulfamethoxazole/Trimeth DS [Bactrim DS] 1 each PO BID 10 Days Home Medications: Atorvastatin [Lipitor] 40 mg PO HS 01/11/16 [History] Brimonidine 0.2% [Alphagan] 1 drop BOTH EYES BID 01/11/16 [History] Insulin ASPART [Novolog Flexpen] 6 - 14 unit SQ TID 01/11/16 [History] Insulin Glargine,Hum.rec.anlog [Lantus Solostar] 100 unit SQ BID 01/11/16 [ History] Latanoprost [Xalatan] 1 drop BOTH EYES HS 01/11/16 [History] Loratadine [Claritin] 10 mg PO DAILY 01/11/16 [History] Metoclopramide [Reglan] 10 mg PO ACHS 01/11/16 [History] Omeprazole [PriLOSEC] 40 mg PO DAILY 01/11/16 [History] Primidone [Mysoline] 25 - 50 mg PO BID PRN 01/11/16 [History] Tizanidine HCl 4 mg PO HS 01/11/16 [History] clonazePAM [Klonopin] 0.5 mg PO BID PRN 01/11/16 [History] Acetaminophen [Tylenol] 650 mg PO Q6HR PRN #0 tablet 01/12/16 [Rx] Ascorbic Acid [Vitamin C] 500 mg PO BID 03/25/16 [History] Docusate Sodium [Colace] 200 mg PO BID 03/25/16 [History] Ferrous Sulfate 324 mg PO BID 03/25/16 [History] Chlorhexidine Gluconate [Hibiclens] 1 appl TP DAILY 12/06/16 [History] Furosemide [Lasix] 40 mg PO BID 12/06/16 [History] Miconazole 2% ointment [Aloe [place] Antifungal Ointment] 1 appl TP BID 12/06/16 [ History] Mupirocin [Bactroban Oint] 1 appl TP TID 12/06/16 [History] Polyethylene Glycol 3350 [Smoothlax] 17 gm PO DAILY 12/06/16 [History] Pregabalin [Lyrica] 75 mg PO BID 12/06/16 [History] Silver Sulfadiazine [Silvadene] 1 appl TP DAILY 12/06/16 [History] Chlorthalidone 12.5 mg PO DAILY #0 tablet 12/08/16 [Rx] Losartan Potassium [Cozaar] 50 mg PO DAILY #0 12/08/16 [Rx] Metoprolol [Lopressor] 25 mg PO BID #60 tablet 12/08/16 [Rx] Potassium Chloride [K-Tab ER] 20 meq PO TID #0 12/08/16 [Rx] Benzonatate [Tessalon] 200 mg PO TID #20 capsule 12/30/16 [Rx] Amoxicillin/Clavulanate [Augmentin] 875 mg PO BIDWM 10 Days 02/27/17 [Rx] Aspirin 81 mg PO DAILY #30 tab.chew 02/27/17 [Rx] Collagenase Oint [Santyl] 1 appl TP BID #1 02/27/17 [Rx] Sulfamethoxazole/Trimeth DS [Bactrim DS] 1 each PO BID 10 Days 02/27/17 [Rx] Allergies/Adverse Reactions: Allergies lisinopril [From Zestril] Allergy (Verified 02/24/17 13:03) Rash Date of admission: 02/24/17 13:06 Primary care physician: Jc Tsai MD Consults: 02/24/17 14:47 Consult to Invasive Line Access Team [CONS] Routine Reason for Consult: poor access Line Type: EPIV 02/25/17 14:24 Consult to Podiatry [CONS] Routine Consulting Provider: [facility] Reason for Consult: Right lower leg cellulitis Call Completed: No Anticipated date of discharge: 02/27/17 - Patient Status Disposition: Home Health Service Condition: Good Functional capacity at discharge: uses cane/walker Overall status at discharge: patient is progressing back to baseline - Discharge Instructions Instructions: Diabetic Foot Ulcers (DC) Follow Up With: Kurt Matthews CNP [Partnered Physician] - 02/28/17 2:00 pm - Diet and Activity Activity: ambulate only with your walker, as per physical therapy, increase activity as tolerated Diet: diabetic diet Hospital course: Ms. Magallanes is a 57 year old female hypertension, diabetes, CHF, hyperlipidemia, Diabetic neuropathy, morbid obesity, GERD and anxiety. Patient presented to the ED with complaints of right foot infection. She does have chronic bilateral lower leg edema and seems to be worse at this time. Right foot ulcer was also worsening. Initial x-ray did not show any osteomyelitis. She was seen by a account officer a few days prior to admission and had labs drawn. Her labs did come back abnormal and she was also advised to go to the ER that time. She did not have any other complaints. Patient was started on IV cefazolin and IV vancomycin. He continued all her home medications. We consulted Dr. Stoll and he evaluated the patient. He advised dressing change to the ulcer and to continue antibiotics. Cultures are negative. Patient did have moderate leukocyte esterase in urine. Her white count is now improved. She is responding well to antibiotics. She did not have any fever or tachycardia. She has been hemodynamically stable. Patient did not have any acute events or complications during her stay in the hospital. Patient tolerated all her meds well. Patient requires assistance for ambulation. She states she feels better and wants to go home today. She was offered a more day of stay in the hospital and IV antibiotics but she states she would like to go home. She is being discharged on by mouth antibiotics at this time. No other acute events or complications. Patient has been explained her condition and plan of care in detail. She understood and agreed. No unanswered questions. Patient is being discharged in stable condition. She will follow up with Dr. Stoll as outpatient. She has been discharged with home health services. - Time Spent with Patient Total time spent providing and/or coordinating discharge services: Greater than 30 minutes - Constitutional Vitals: Temp Pulse Resp BP Pulse Ox 97.7 F 77 16 144/82 94 02/27/17 07:25 02/27/17 07:25 02/27/17 07:25 02/27/17 07:25 02/27/17 07:25 General appearance: Present: A&O X 3, morbidly obese, no acute distress, answers questions appropriately - Head Head exam: Present: atraumatic - Eye Eye exam: Present: EOMI - ENT ENT exam: Present: mucous membranes moist - Neck Neck exam general surgery: Present: supple - Respiratory Respiratory exam: Present: CTAB. Absent: rales, rhonchi, stridor, wheezes, tachypnea - Cardiovascular Cardiovascular exam: Present: RRR, +S1, +S2 - GI/Abdominal GI/Abdominal exam: Present: distended (obese), soft. Absent: firm, guarding, rigid, tenderness - Extremities Exam Extremities exam: Present: pedal edema (4+ pitting edema both lower legs), radial pulses palpable and symetrical. Absent: cyanotic, tenderness Additional comments: Right foot ulcer healing, erythema of the right lower leg and right foot and stasis dermatitis both lower legs with extensive edema. Erythema of left lower leg and right foot improving, no tenderness - Neurological Exam Neurological exam: Present: alert, oriented X3, no focal deficits
--- NOTE | 2017-02-27 10:27 | Physician Discharge Referral ---
Home Health/Hosp Referral Info Transfer to: Home Health Provider in Charge Post Discharge: PCP - Diagnosis (1) Sepsis Priority: Primary Status: Acute (2) Cellulitis Priority: Primary Status: Acute (3) UTI (urinary tract infection) Priority: Primary Status: Acute (4) Diabetes mellitus Priority: Primary Status: Chronic (5) Morbid obesity Priority: Primary Status: Chronic (6) HTN (hypertension) Priority: Secondary Status: Chronic (7) CHF (congestive heart failure) Priority: Secondary Status: Chronic - Respiratory Orders Smoking Cessation: Smoking cessation has been advised. For more information, call the [place] [employer] Quit Line at [phone]. - Dressing/Wound Care Site: Right foot ulcer dressing change daily with santyl - Diet/Nutrition Diet/Nutrition Orders: Cardiac (Diabetic diet) - Activity Activity Orders: Walker - Services Needed Following services are medically necessary services: Home Health Aide - Transfer Medications Prescriptions: Amoxicillin/Clavulanate [Augmentin] 875 mg PO BIDWM 10 Days Aspirin 81 mg PO DAILY #30 tab.chew Collagenase Oint [Santyl] 1 appl TP BID #1 Sulfamethoxazole/Trimeth DS [Bactrim DS] 1 each PO BID 10 Days Home Medications: Atorvastatin [Lipitor] 40 mg PO HS 01/11/16 [History] Brimonidine 0.2% [Alphagan] 1 drop BOTH EYES BID 01/11/16 [History] Insulin ASPART [Novolog Flexpen] 6 - 14 unit SQ TID 01/11/16 [History] Insulin Glargine,Hum.rec.anlog [Lantus Solostar] 100 unit SQ BID 01/11/16 [ History] Latanoprost [Xalatan] 1 drop BOTH EYES HS 01/11/16 [History] Loratadine [Claritin] 10 mg PO DAILY 01/11/16 [History] Metoclopramide [Reglan] 10 mg PO ACHS 01/11/16 [History] Omeprazole [PriLOSEC] 40 mg PO DAILY 01/11/16 [History] Primidone [Mysoline] 25 - 50 mg PO BID PRN 01/11/16 [History] Tizanidine HCl 4 mg PO HS 01/11/16 [History] clonazePAM [Klonopin] 0.5 mg PO BID PRN 01/11/16 [History] Acetaminophen [Tylenol] 650 mg PO Q6HR PRN #0 tablet 01/12/16 [Rx] Ascorbic Acid [Vitamin C] 500 mg PO BID 03/25/16 [History] Docusate Sodium [Colace] 200 mg PO BID 03/25/16 [History] Ferrous Sulfate 324 mg PO BID 03/25/16 [History] Chlorhexidine Gluconate [Hibiclens] 1 appl TP DAILY 12/06/16 [History] Furosemide [Lasix] 40 mg PO BID 12/06/16 [History] Miconazole 2% ointment [Aloe [place] Antifungal Ointment] 1 appl TP BID 12/06/16 [ History] Mupirocin [Bactroban Oint] 1 appl TP TID 12/06/16 [History] Polyethylene Glycol 3350 [Smoothlax] 17 gm PO DAILY 12/06/16 [History] Pregabalin [Lyrica] 75 mg PO BID 12/06/16 [History] Silver Sulfadiazine [Silvadene] 1 appl TP DAILY 12/06/16 [History] Chlorthalidone 12.5 mg PO DAILY #0 tablet 12/08/16 [Rx] Losartan Potassium [Cozaar] 50 mg PO DAILY #0 12/08/16 [Rx] Metoprolol [Lopressor] 25 mg PO BID #60 tablet 12/08/16 [Rx] Potassium Chloride [K-Tab ER] 20 meq PO TID #0 12/08/16 [Rx] Benzonatate [Tessalon] 200 mg PO TID #20 capsule 12/30/16 [Rx] Amoxicillin/Clavulanate [Augmentin] 875 mg PO BIDWM 10 Days 02/27/17 [Rx] Aspirin 81 mg PO DAILY #30 tab.chew 02/27/17 [Rx] Collagenase Oint [Santyl] 1 appl TP BID #1 02/27/17 [Rx] Sulfamethoxazole/Trimeth DS [Bactrim DS] 1 each PO BID 10 Days 02/27/17 [Rx] Allergies/Adverse Reactions: Allergies lisinopril [From Zestril] Allergy (Verified 02/24/17 13:03) Rash Certification: Further, I certify that my clinical findings support that this patient is homebound (i.e. absences from home require considerable and taxing effort and are for medical reasons or amish services or infrequently or short duration when for other reasons) because: Homebound Reason: Patient requires assistance of a person or device to safely leave home Attestation: My signature below is to certify that this patient is under my care and that I, or nurse practitioner, or a physician's tax assistant working with me, has a face-to -face encounter with this patient.
[2017-02-27 11:54] VITALS: BP 129/70
[2017-02-27] MEDS ORDERED: ceFAZolin 2,000 MG in D5% in Water 100 ML IVPB SCH (14:00)
[2017-02-27] MEDS ORDERED: Aminoglycoside Consult 1 EACH MC ONE (17:14)
--- NOTE | 2017-02-27 21:38 | Podiatry Progress Note ---
Date of Encounter: 02/28/17 Time of Encounter: 12:00 - Assessment and Plan (1) Cellulitis Status: Acute Qualifiers: Site of cellulitis: extremity Site of cellulitis of extremity: lower extremity Laterality: right Qualified Code(s): L03.115 - Cellulitis of right lower limb (2) Diabetic foot ulcer Status: Acute Full thickness ulceration to the medial aspect of 1st MTPJ right foot. Overall significant improvement. Erythema has resolved. Ulcer to the distal aspect of the right great toe with dry eschar. WBC: 11 and a febrile. Continue wound care as ordered with Santyl ointment. Patient will f/u in Podiatry clinic with in one week of discharge from the hospital. Patient will need home health care to assist with daily dressing changes. Patient to be discharged home with post op shoe and remain with protective weight bearing. Qualifiers: Diabetic foot ulcer location: midfoot Diabetes mellitus type: type 2 Laterality: right Non-pressure ulcer stage: limited to breakdown of skin Qualified Code(s): E11.621 - Type 2 diabetes mellitus with foot ulcer; L97.411 - Non-pressure chronic ulcer of right heel and midfoot limited to breakdown of skin Subjective Interval history: Patient is lying in bed with a dressing intact to the right foot. Patient she thinks she is being discharged home today with home health care for daily dressing changes. Patient denies any pain, fever or chills. Patient has a post op shoes at the bedside. Objective - Vital Signs Vital Signs: Vital Signs Temp Pulse Resp BP Pulse Ox 02/27/17 11:50 98.9 F 82 16 129/70 94 02/27/17 07:25 97.7 F 77 16 144/82 94 02/27/17 00:05 98.1 F 73 15 115/70 93 Intake and Output 02/27/17 02/27/17 02/27/17 07:59 15:59 23:59 Intake Total 100 / 100 1460 / 1460 Output Total 0 / 0 Balance 100 / 100 1460 / 1460 Intake: IV Fluids 100 / 100 1100 / 1100 0.9 % Sodium Chloride 1, 1000 / 1000 000 ML @ 75 mls/hr IVC . [id number] DONNA Rx#: [id number] Ancef 2,000 MG In 100 / 100 100 / 100 Dextrose 5% 100 ML @ 200 mls/hr IVPB Q8HR DONNA Rx#: [id number] Oral 0 / 0 360 / 360 Output: Urine 0 / 0 Other: Meal Breakfast Percent of Meal Consumed 100% # Voids 2 Weight 149.1 kg Blood Glucose* 87 62 Patient Weight 02/27/17 23:59 Weight 149.1 kg - Exam Exam: General appearance: alert awake oriented X 3. Calm and pleasant, no acute distress.. Vascular: Pedal pulses +1/4 DP/PT , No evidence of cyanosis, pallor or rubor, Edema graded at 3+/4, Skin temperature warm, Homans Sign negative, capillary refill time is immediate to digits.. Ulcer: Full thickness ulceration to the medial aspect of the 1 st MTPJ right foot measuring 2.3 cm in length x 3 cm in width x 0.2 cm in depth, no exposed bone, no ligament or tendon, no periwound erythema. base of wound with 100% fibrous tissue. Wound edges are connected, no tunneling, no sinus tracts, no undermining. No fluctuance, no pus, no streaking, no ascending cellulitis. ulceration distal aspect right great toe measuring 1.3 cm x 1.3 cm with dry eschar, without ascending cellulitis fluctuance or necrosis - Lab Result Diagrams: 02/27/17 04:41 02/26/17 03:14 Labs: Abnormal lab results Hgb 10.7 g/dL (11.5-15.4) L 02/27/17 04:41 Hct 34.2 % (35.3-44.9) L 02/27/17 04:41 MCV 82.4 fL (83.0-100.0) L 02/27/17 04:41 MCH 25.8 pg (28.0-33.3) L 02/27/17 04:41 MCHC 31.3 g/dL (31.6-35.5) L 02/27/17 04:41 RDW 15.2 % (11.5-14.5) H 02/27/17 04:41 MPV 13.3 fL (9.4-12.4) H 02/27/17 04:41 Immature Plt Fraction 13.0 % (1.1-6.1) H 02/26/17 04:15 BUN 23 mg/dL (7-20) H 02/26/17 03:14 BUN/Creatinine Ratio 28 (6-26) H 02/26/17 03:14 Calcium 8.4 mg/dL (8.6-10.8) L 02/26/17 03:14 Ur Specific [place] 1.027 (1.010-1.025) H 02/24/17 11:20 Urine Protein 100 mg/dL (Neg-Trace) H 02/24/17 11:20 Urine Glucose (UA) 500 mg/dL (Normal) H 02/24/17 11:20 Ur Leukocyte Esterase Moderate (Negative) H 02/24/17 11:20 Urine Microscopic WBC 30-50 per hpf (0-3) H 02/24/17 11:20 Ur Squamous Epith Cells Many per lpf (None-Few) H 02/24/17 11:20 Ur Culture Indicated? YES (NO) A 02/24/17 11:20 Vancomycin Trough 32.4 mcg/mL (10-20) H* 02/27/17 04:41 Consult Discharge Plan - Plan Instructions: Diabetic Foot Ulcers (DC) Referrals: Kurt Matthews CNP [Partnered Physician] - 02/28/17 2:00 pm Prescriptions: Amoxicillin/Clavulanate [Augmentin] 875 mg PO BIDWM 10 Days Aspirin 81 mg PO DAILY #30 tab.chew Collagenase Oint [Santyl] 1 appl TP BID #1 Sulfamethoxazole/Trimeth DS [Bactrim DS] 1 each PO BID 10 Days
== END 2017-02-27 17:15 | disposition home health service (06) | DRG 720 ==
LOC: EMEROO 10:12 → 3ANU 10:12
PROVIDERS: ADMIT Family Medicine; ATTEND Family Medicine

== ENCOUNTER 2017-11-10 12:54 | Inpatient (IN) ==
--- NOTE | 2017-11-10 13:08 | Emergency Department Note ---
Disposition Clinical Impression: Cellulitis Qualifiers: Site of cellulitis: extremity Site of cellulitis of extremity: lower extremity Laterality: unspecified laterality Qualified Code(s): L03.119 - Cellulitis of unspecified part of limb Disposition: Admitted As Inpatient Condition: Fair Referrals: Jc Tsai MD [Primary Care Provider] - Time of Disposition: 15:06 General Adult HPI - General Stated complaint: BI-LATERAL EDEMA,FOOT WOUND Time Seen by Provider: 11/10/17 13:01 Source: patient Mode of arrival: wheelchair Limitations: no limitations Nursing Notes Reviewed: Yes Vital Signs Reviewed: Yes - History of Present Illness HPI Narrative: 57-year-old female who comes in with progressive lower extremity edema with redness. Patient states she also has had a cough is not sure she has had a fever. Pt Subjective Complaint: Lower extremity edema Onset (ago): day(s) Location: lower extremity Radiation: non-radiation Pain Severity: moderate Quality: aching Consistency: constant Improves with: nothing Worsens with: movement Associated symptoms: Reports: cough Treatments Prior to Arrival: none - Related Data Home Medications Medication Instructions Recorded Confirmed Atorvastatin [Lipitor] 40 mg PO HS 01/11/16 03/22/17 Brimonidine 0.2% [Alphagan] 1 drop BOTH EYES BID 01/11/16 03/22/17 Insulin ASPART [Novolog Flexpen] 6 - 14 unit SQ TID 01/11/16 03/22/17 Insulin Glargine,Hum.rec.anlog 100 unit SQ BID 01/11/16 03/22/17 [Lantus Solostar] Latanoprost [Xalatan] 1 drop BOTH EYES HS 01/11/16 03/22/17 Loratadine [Claritin] 10 mg PO DAILY 01/11/16 03/22/17 Metoclopramide [Reglan] 10 mg PO ACHS 01/11/16 03/22/17 Omeprazole [PriLOSEC] 40 mg PO DAILY 01/11/16 03/22/17 Primidone [Mysoline] 25 - 50 mg PO BID PRN 01/11/16 03/22/17 Tizanidine HCl 4 mg PO HS 01/11/16 03/22/17 clonazePAM [Klonopin] 0.5 mg PO BID PRN 01/11/16 03/22/17 Ascorbic Acid [Vitamin C] 500 mg PO BID 03/25/16 03/22/17 Docusate Sodium [Colace] 200 mg PO BID 03/25/16 03/22/17 Ferrous Sulfate 324 mg PO BID 03/25/16 03/22/17 Furosemide [Lasix] 40 mg PO BID 12/06/16 03/22/17 Miconazole 2% ointment [[place]oe [place] 1 appl TP BID 12/06/16 03/22/17 Antifungal Ointment] Polyethylene Glycol 3350 17 gm PO DAILY 12/06/16 03/22/17 [Smoothlax] Pregabalin [Lyrica] 75 mg PO BID 12/06/16 03/22/17 Previous Rx's Medication Instructions Recorded Acetaminophen [Tylenol] 650 mg PO Q6HR PRN #0 tablet 01/12/16 Losartan Potassium [Cozaar] 50 mg PO DAILY #0 12/08/16 Metoprolol [Lopressor] 25 mg PO BID #60 tablet 12/08/16 Potassium Chloride [K-Tab ER] 20 meq PO TID #0 12/08/16 Aspirin 81 mg PO DAILY #30 tab.chew 02/27/17 Dicyclomine [Bentyl] 10 mg PO QID #28 capsule 05/10/17 Ondansetron HCl [Zofran] 4 mg PO TID #21 tablet 05/10/17 Fluticasone Propionate Nasal 2 spray NS DAILY #1 bottle 08/28/17 [Flonase] Guaifenesin [Guaifenesin ER] 600 mg PO BID PRN #20 tab.er.12h 08/28/17 Benzonatate [Tessalon] 100 mg PO TID #30 capsule 10/03/17 Fluticasone Propionate Nasal 2 spray NS DAILY #1 bottle 10/03/17 [Flonase] Guaifenesin [Guaifenesin ER] 600 mg PO BID PRN #20 tab 10/03/17 Allergies Allergy/AdvReac Type Severity Reaction Status Date / Time lisinopril [From Zestril] Allergy Rash Verified 10/03/17 10:36 All systems ED: reviewed and negative except as stated. Constitutional: Denies: fever, chills, weakness, weight change Eyes: Denies: eye pain, eye discharge, vision change ENT ED: Denies: ear pain, throat pain, dental pain, hearing loss, epistaxis, congestion, dysphagia Cardiovascular: Reports: edema. Denies: chest pain, palpitations, dyspnea on exertion, syncope Respiratory: Reports: cough. Denies: dyspnea, wheezes, hemoptysis, stridor Gastrointestinal: Denies: abdominal pain, nausea, vomiting, diarrhea, constipation, hematemesis, melena, hematochezia Genitourinary: Denies: dysuria, frequency, hematuria, discharge Musculoskeletal: Denies: back pain, neck pain, arthralgia, myalgia Integumentary: Denies: rash, abrasion, lesions Neurological: Denies: headache, weakness, numbness, paresthesias, confusion, abnormal gait, vertigo Psychiatric: Denies: anxiety, depression, suicidal thoughts, homicidal thoughts , auditory hallucinations, visual hallucinations Endocrine: Denies: fatigue Hematological/Lymphatic: Denies: easy bleeding, easy bruising Allergic/Immunologic: Denies: facial swelling, urticaria Past Medical History - Past Medical History Medical history: Reports: diabetes, hypertension, other Surgical history: Reports: hysterectomy, other Psychiatric history: Reports: depression 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 history - Social History Smoking Status: Never smoker Smokeless Tobacco Status: No Alcohol use: Reports: none Drug use: Reports: none Physical Exam - General Limitations: no limitations General appearance: alert, in no apparent distress - Head Head exam: atraumatic, normocephalic, normal inspection - Eye Eye exam: Present: normal appearance, PERRL, EOMI - ENT ENT exam: normal exam, normal oropharynx, mucous membranes moist - Neck Neck exam: Present: normal inspection, full ROM, trachea midline - Chest Chest inspection: Present: normal inspection, symmetric chest wall rise - Respiratory Respiratory exam: Present: normal lung sounds bilaterally - Cardiovascular Cardiovascular exam: Present: regular rate, normal rhythm, normal heart sounds - Abdominal Exam Abdominal exam: Present: soft, Non-Tender. Absent: tenderness, distention, guarding, rebound, rigidity - Expanded Lower Extremity Exam Lower leg exam: Present: swelling, erythema Neurovascular/Tendon exam: Absent: motor deficit, sensory deficit, tendon deficit Gait: observed and normal - Back Exam Back exam: Present: normal inspection, full ROM. Absent: tenderness - Neurological Exam Neurological exam: Present: alert, oriented X3 - Psychiatric Psychiatric exam: Present: normal affect, normal mood - Skin Skin exam: Present: warm, dry, intact, normal color Course - Reevaluation(s) Reevaluation #1: Patient's 57-year-old with peripheral edema redness of the legs. White count is elevated the patient appears to have cellulitis. We will admit for IV antibiotics. Time: 15:05 - Consultations Consultation #1: Discussed with , admit. Time: 15:06 Vital Signs Temperature 98.8 F 11/10/17 13:09 Pulse Rate 113 11/10/17 13:09 Respiratory Rate 20 11/10/17 13:09 Blood Pressure 193/89 11/10/17 13:09 O2 Sat by Pulse Oximetry 94 11/10/17 13:09 Temperature 98.8 F 11/10/17 13:09 Pulse Rate 113 11/10/17 13:09 Respiratory Rate 20 11/10/17 13:09 Blood Pressure 193/89 11/10/17 13:09 O2 Sat by Pulse Oximetry 94 11/10/17 13:09 Oxygen Delivery Oxygen Delivery Room Air Medical Decision Making - Lab Data Result diagrams: 11/10/17 13:19 11/10/17 13:19 Lab Results 11/10/17 11/10/17 11/10/17 Range/Units 13:04 13:19 13:19 WBC 14.6 H (4.3-11.1) K/mcL RBC 4.68 (3.82-4.97) M/mcL Hgb 11.6 (11.5-15.4) g/dL Hct 37.2 (35.3-44.9) % MCV 79.5 L (83.0-100.0) fL MCH 24.8 L (28.0-33.3) pg MCHC 31.2 L (31.6-35.5) g/dL RDW 14.6 H (11.5-14.5) % Plt Count 285 (140-400) K/mcL MPV 12.8 H (9.4-12.4) fL Immature Gran % 0.8 (0-4) % Seg Neutrophils % 77.9 % Lymphocytes % 13.2 % Monocytes % 6.4 % Eosinophils % 1.3 % Basophils % 0.4 % Neutrophils # 11.4 H (1.6-8.9) K/mcL Lymphocytes # 1.9 (0.6-4.6) K/mcL Monocytes # 0.9 (0.0-1.3) K/mcL Eosinophils # 0.2 (0.0-0.6) K/mcL Basophils # 0.1 (0.0-0.2) K/mcL Sodium 135 L (136-145) mEq/L Potassium 4.6 (3.5-5.1) mEq/L Chloride 96 L (98-107) mEq/L Carbon Dioxide 31 H (23-29) mEq/L BUN 38 H (6-20) mg/dL Creatinine 0.90 (0.60-1.20) mg/dL Est GFR ( Amer) > 60 (> 60) Est GFR (Non-Af Amer) > 60 (> 60) BUN/Creatinine Ratio 42 H (6-26) Glucose 321 H (70-105) mg/dL Calculated Osmolality 301 H (280-300) Lactic Acid (0.5-2.2) mmol/L Calcium 9.0 (8.6-10.3) mg/dL Troponin I < 0.03 (< 0.04) ng/mL B-Natriuretic Peptide 96 (Less than 100) pg/mL 11/10/17 Range/Units 13:19 WBC (4.3-11.1) K/mcL RBC (3.82-4.97) M/mcL Hgb (11.5-15.4) g/dL Hct (35.3-44.9) % MCV (83.0-100.0) fL MCH (28.0-33.3) pg MCHC (31.6-35.5) g/dL RDW (11.5-14.5) % Plt Count (140-400) K/mcL MPV (9.4-12.4) fL Immature Gran % (0-4) % Seg Neutrophils % % Lymphocytes % % Monocytes % % Eosinophils % % Basophils % % Neutrophils # (1.6-8.9) K/mcL Lymphocytes # (0.6-4.6) K/mcL Monocytes # (0.0-1.3) K/mcL Eosinophils # (0.0-0.6) K/mcL Basophils # (0.0-0.2) K/mcL Sodium (136-145) mEq/L Potassium (3.5-5.1) mEq/L Chloride (98-107) mEq/L Carbon Dioxide (23-29) mEq/L BUN (6-20) mg/dL Creatinine (0.60-1.20) mg/dL Est GFR ( Amer) (> 60) Est GFR (Non-Af Amer) (> 60) BUN/Creatinine Ratio (6-26) Glucose (70-105) mg/dL Calculated Osmolality (280-300) Lactic Acid 2.0 (0.5-2.2) mmol/L Calcium (8.6-10.3) mg/dL Troponin I (< 0.04) ng/mL B-Natriuretic Peptide (Less than 100) pg/mL - EKG Data EKG #1 EKG attestation: Yes I reviewed and interpreted this EKG. EKG shows normal: sinus rhythm Rate: tachycardia Rhythm: NSR [place]/QRS: IVCD Interpretation: nonspecific ST-T wave changes
[2017-11-10 13:32] LABS: Basophils # 0.1 K/mcL (0.0-0.2); Basophils % 0.4 %; Eosinophils # 0.2 K/mcL (0.0-0.6); Eosinophils % 1.3 %; Hematocrit 37.2 % (35.3-44.9); Hemoglobin 11.6 g/dL (11.5-15.4); Immature Granulocytes % 0.8 % (0-4); Lymphocytes # 1.9 K/mcL (0.6-4.6); Lymphocytes % 13.2 %; Mean Corpuscular HGB Conc 31.2 g/dL (31.6-35.5); Mean Corpuscular Hemoglobin 24.8 pg (28.0-33.3); Mean Corpuscular Volume 79.5 fL (83.0-100.0); Mean Platelet Volume 12.8 fL (9.4-12.4); Monocytes # 0.9 K/mcL (0.0-1.3); Monocytes % 6.4 %; Neutrophils # 11.4 K/mcL (1.6-8.9); Platelet Count 285 K/mcL (140-400); Red Blood Count 4.68 M/mcL (3.82-4.97); Red Cell Distribution Width 14.6 % (11.5-14.5); Segmented Neutrophils % 77.9 %
[2017-11-10 13:54] LABS: Troponin I < 0.03 ng/mL (< 0.04)
[2017-11-10 13:55] LABS: BUN/Creatinine Ratio 42 (6-26); Blood Urea Nitrogen 38 mg/dL (6-20); Carbon Dioxide 31 mEq/L (23-29); Chloride 96 mEq/L (98-107); Glucose 321 mg/dL (70-105); Osmolality,Calculated 301 (280-300); Potassium 4.6 mEq/L (3.5-5.1); Sodium 135 mEq/L (136-145); eGFR For African Americans > 60 (> 60); eGFR For Non-African Americans > 60 (> 60)
[2017-11-10] MEDS ORDERED: Piperacillin/Tazobactam 3.375 GM in 0.9 % Sodium Chloride Mini Bag 100 ML IVPB ONE (14:03)
[2017-11-10] MEDS ORDERED: Furosemide 40 MG/4 ML VIAL IVP ONE (14:04)
[2017-11-10] MEDS ORDERED: tiZANidine 4 MG TABLET PO STA (20:01)
[2017-11-10] MEDS ORDERED: clonazePAM 0.5 MG TABLET PO PRN (20:21)
[2017-11-10] MEDS ORDERED: Primidone 50 MG TABLET PO PRN (20:21)
[2017-11-10] MEDS ORDERED: Acetaminophen 325 MG TABLET PO PRN (20:21)
[2017-11-10] MEDS ORDERED: Naloxone 0.4 MG/ML INJ IVP PRN (20:28)
[2017-11-10] MEDS ORDERED: D5% in Water 1,000 ML IVC PRN (20:34)
[2017-11-10] MEDS ORDERED: Dextrose Gel 15 GM/37.5 ML TUBE PO PRN ×2 (20:34)
[2017-11-10] MEDS ORDERED: *HR* Dextrose 50 % in Water (Syg) 50 ML SYRINGE IVP PRN (20:34)
--- NOTE | 2017-11-10 20:43 | Internal Med History&Physical ---
Date of Encounter: 11/10/17 Time of Encounter: 19:17 Internal Medicine - H&P: HPI Chief complaint: "Increased leg swelling and short of breath" Admitted From: Emergency Dept Plans for Post Hospital Care: Home History of present illness: Ms. Magallanes is a 57 year old female who presented to ED with increased BLE edema and SOB. She states that symptoms started about 1 work ago with progressive worsening. Her only complaint at the time of my interview was increased cough. She states that pain is "ok" in her BLE at this time. She denies fever, chills, chest pain, nausea, vomiting, changes in bladder, or changes in bowel. She is having trouble ambulating because of the increased edema, however nursing staff reports that she walked to cafeteria to get food. In the ED, she received lasix 40 mg IV once. She has had good urine output since receiving this. She also received 1 dose of zosyn. CXR showed findings consistent with CHF. Chart review shows a history of chronic diastolic CHF. Past Med Surg Social Fam HX - Past Medical History Attestation: Yes The following information was validated with the patient. Source: patient Medical history: CHF (Chronic Diastolic), diabetes, hypertension, other Psychiatric history: depression - Past Surgical History Surgical History: hysterectomy, other - Social History Smoking Status: Never smoker Smokeless Tobacco Status: No Alcohol use: none Drug use: none - Family History Mother Living Status: Hx Family Endocrine Disorder: Yes (Dm) Father Living Status: Hx Family Cardiac Disorders: No Hx Family Respiratory Disorders: No Hx Family Cancer: No Hx Family GI Disorders: No Internal Medicine - H&P: Meds Atorvastatin [Lipitor] 40 mg PO HS 01/11/16 [History] Insulin ASPART [Novolog Flexpen] 6 - 14 unit SQ TID 01/11/16 [History] Insulin Glargine,Hum.rec.anlog [Lantus Solostar] 100 unit SQ BID 01/11/16 [ History] Latanoprost [Xalatan] 1 drop BOTH EYES HS 01/11/16 [History] Primidone [Mysoline] 25 - 50 mg PO BID PRN 01/11/16 [History] Tizanidine HCl 4 mg PO TID PRN 01/11/16 [History] clonazePAM [Klonopin] 0.5 mg PO BID PRN 01/11/16 [History] Acetaminophen [Tylenol] 650 mg PO Q6HR PRN #0 tablet 01/12/16 [Rx] Ascorbic Acid [Vitamin C] 500 mg PO BID 03/25/16 [History] Docusate Sodium [Colace] 200 mg PO BID 03/25/16 [History] Furosemide [Lasix] 40 mg PO BID 12/06/16 [History] Pregabalin [Lyrica] 75 mg PO BID 12/06/16 [History] Potassium Chloride [K-Tab ER] 20 meq PO TID #0 12/08/16 [Rx] Fluticasone Propionate Nasal [Flonase] 2 spray NS DAILY #1 bottle 08/28/17 [Rx] Guaifenesin [Guaifenesin ER] 600 mg PO BID PRN #20 tab.er.12h 08/28/17 [Rx] Benzonatate [Tessalon] 100 mg PO TID #30 capsule 10/03/17 [Rx] Brimonidine Tartrate/Timolol [Combigan 0.2%-0.5% Eye Drops] 1 drop OP BID [History] Diltiazem HCl [Diltiazem 12Hr ER] 120 mg PO DAILY 11/10/17 [History] Esomeprazole Magnesium [Nexium] 40 mg PO DAILY 11/10/17 [History] Gentamicin Oint [Garamycin] 1 appl TP BID 11/10/17 [History] Ketoconazole 2% CRM [Nizoral Cream] 1 appl TP DAILY 11/10/17 [History] Ketorolac Tromethamine 1 drop OP QID 11/10/17 [History] Losartan Potassium [Cozaar] 100 mg PO DAILY 11/10/17 [History] 3 Allergy/AdvReac Type Severity Reaction Status Date / Time lisinopril [From Zestril] Allergy Rash Verified 11/10/17 16:06 - Constitutional Constitutional: no anorexia, no chills, no fatigue, no fever(s), no lethargy, no malaise, no weakness, no weight gain, no weight loss - EENT Eyes: no blurry vision, no diplopia, no loss of vision, no pain, no other visual disturbances Ears: no decreased hearing, no ear pain Nose, mouth and throat: no dry mouth, no dysphagia, no facial pain, no mouth lesions, no mouth pain, no nasal congestion, no nasal discharge, no neck pain, no sinus pain, no sore throat - Cardiovascular Cardiovascular ROS IM: dyspnea, dyspnea on exertion, edema, no chest pain, no diaphoresis, no lightheadedness, no palpitations, no syncope - Respiratory Respiratory: cough, dyspnea, dyspnea on exertion, no hemoptysis, no wheezing, no chest congestion - Gastrointestinal Gastrointestinal: no abdominal pain, no change in bowel habits, no constipation , no diarrhea, no dysphagia, no heartburn, no hematemesis, no hematochezia, no melena, no nausea, no vomiting - Genitourinary Genitourinary: no difficulty urinating, no dysuria, no hematuria, no urinary frequency - Musculoskeletal Musculoskeletal ROS IM: no arthralgias, no joint swelling, no muscle weakness, no myalgias, no stiffness - Integumentary Integumentary IM: no erythema, no rash, no skin ulcer, no jaundice - Neurological Neurological ROS: no behavioral changes, no confusion, no dizziness, no focal weakness, no headache(s), no vertigo, no weakness - Psychiatric Psychiatric: no anxiety, no confusion, no depression - Endocrine Endocrine IM: no cold intolerance, no fatigue, no heat intolerance, no polydipsia, no polyphagia, no polyuria - Constitutional Vitals: Temp Pulse Resp BP Pulse Ox 98.8 F 114 20 176/92 95 11/10/17 13:09 11/10/17 18:40 11/10/17 18:40 11/10/17 18:40 11/10/17 16:48 General appearance: Present: cooperative, A&O X 3, morbidly obese, no acute distress, answers questions appropriately - Head Head exam: Present: atraumatic, normocephalic - Eye Eye exam: Present: EOMI, PERRL. Absent: conjunctival injection, nystagmus, scleral icterus - ENT ENT exam: Present: mucous membranes moist, normal external ear exam, normal oropharynx - Neck Neck exam general surgery: Present: supple, trachea midline. Absent: lymphadenopathy, tenderness, thyromegaly - Respiratory Respiratory exam: Present: CTAB. Absent: accessory muscle use, rales, rhonchi, wheezes Additional comments: Mildly labored WOB - Cardiovascular Cardiovascular exam: Present: RRR, +S1, +S2. Absent: diastolic murmur, gallop, rubs, systolic murmur Additional comments: 2+ pitting BLE edema - GI/Abdominal GI/Abdominal exam: Present: normal bowel sounds, soft. Absent: distended, hepatomegaly, mass, splenomegaly, tenderness - Neurological Exam Neurological exam: Present: alert, CN II-XII intact, oriented X3, no focal deficits, strengths equal and symetr throughout. Absent: facial droop, speech deficit - Psychiatric Psychiatric exam: Present: normal affect, normal mood. Absent: anxious, depressed - Skin Skin exam: Present: dry, intact, warm. Absent: cyanosis, rash Additional comments: Moderate erythema and increased warmth of BLE with chronic venous stasis dermatitis changes, weeping of skin with clear fluid with palpation, moderate TTP Internal Med - H&P Results - Labs CBC & Chem 7: 11/11/17 03:18 11/11/17 03:18 Labs: Short CBC 11/10/17 Range/Units 13:19 WBC 14.6 H (4.3-11.1) K/mcL Hgb 11.6 (11.5-15.4) g/dL Hct 37.2 (35.3-44.9) % Plt Count 285 (140-400) K/mcL Neutrophils # 11.4 H (1.6-8.9) K/mcL BMP 11/10/17 13:19 Sodium 135 L Potassium 4.6 Chloride 96 L Carbon Dioxide 31 H BUN 38 H Creatinine 0.90 Glucose 321 H Calcium 9.0 Cardiac Enzymes 11/10/17 Range/Units 13:19 Troponin I < 0.03 (< 0.04) ng/mL - Impressions ITS Impressions Chest X-Ray 11/10/17 13:04 IMPRESSION: Findings suggest congestive heart failure D/ / Federico Mariee MD / Federico Mariee MD Interpreting Provider: Federico Mariee MD - Assessment and plan (1) Bilateral lower leg cellulitis Current Visit: Yes Status: Acute Assessment and plan: Admit inpatient with telemetry. Continue IV zosyn. Start IV vancomycin 1 gram Q12H; dosing by pharmacy. Repeat labwork in AM. (2) Acute on chronic diastolic heart failure Current Visit: Yes Status: Acute Assessment and plan: Obtain ECHO. Continue lasix 40 mg IV BID. Monitor strict I&Os and daily weights. Continue home medications. (3) Venous stasis dermatitis of both lower extremities Current Visit: Yes Status: Chronic (4) Cough Current Visit: Yes Status: Chronic Assessment and plan: Continue home guaifenesin and tessalon perles. Start robitussin DM 10 ml Q6H PRN cough. Suspect this will improve with diuresis. (5) HLD (hyperlipidemia) Current Visit: Yes Status: Chronic Assessment and plan: Continue home medications. Qualifiers: Hyperlipidemia type: mixed hyperlipidemia Qualified Code(s): E78.2 - Mixed hyperlipidemia (6) HTN (hypertension) Current Visit: No Status: Chronic Assessment and plan: Continue home medications. Qualifiers: Hypertension type: essential hypertension Qualified Code(s): I10 - Essential (primary) hypertension (7) Morbid obesity Current Visit: Yes Status: Chronic Assessment and plan: Counselled on lifestyle modifications. (8) Type 2 diabetes mellitus Current Visit: Yes Status: Chronic Assessment and plan: With acute hyperglycemia. Continue home lantus. Hold home short-acting insulin. Start accuchecks and moderate dose SSI QID AC/HS. Obtain A1C. 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 Start lovenox 40 mg SQ QD. - Time Spent With Patient Total time spent is greater than 50% in coordination of care (as documented) at patient's floor/unit and/or counseling patient: 25 - 35 minutes
[2017-11-10 20:46] LABS: Estimated Average Glucose 289 mg/dl; Hemoglobin A1C 11.7 %
[2017-11-10] MEDS ORDERED: NON-FORMULARY MEDICATION 1 EACH EACH (Insulin Glargine,Hum.Rec.Anlog [Lantus Solostar] 100 SQ SCH (21:00)
[2017-11-10] MEDS ORDERED: Insulin DETEMIR 100 UNIT/ML X5UNITS SQ SCH (21:45)
[2017-11-11] MEDS ORDERED: Piperacillin/Tazobactam 3.375 GM in 0.9 % Sodium Chloride Mini Bag 100 ML IVPB SCH
[2017-11-11] MEDS: Insulin DETEMIR 100 UNIT/ML X5UNITS SQ SCH ×3 (00:48→21:08)
[2017-11-11] MEDS: Benzonatate 100 MG CAPSULE PO SCH ×4 (00:49→21:08)
[2017-11-11] MEDS: Latanoprost 2.5 ML BOTTLE BOTH EYES SCH ×2 (00:49→21:11)
[2017-11-11] MEDS: Ketoconazole 2% CRM 15 GM TUBE TP SCH ×2 (00:49→08:40)
[2017-11-11] MEDS: Ascorbic Acid 500 MG TABLET PO SCH ×3 (00:49→21:08)
[2017-11-11] MEDS: Gentamicin Oint 15 GM TUBE TP SCH ×3 (00:49→21:10)
[2017-11-11] MEDS: Pregabalin 75 MG CAPSULE PO SCH ×3 (00:49→21:07)
[2017-11-11] MEDS: Insulin LISPRO 300 UNITS/3 ML VIAL SQ SCH ×6 (00:51→21:09)
[2017-11-11] MEDS: Fluticasone Propionate Nasal 50 MCG/SPRAY BOTTLE NS SCH ×2 (00:51→08:41)
[2017-11-11] MEDS: *HR* HYDROcodone/Acet 5/325 mg TABLET PO PRN (00:52)
[2017-11-11] MEDS: Furosemide 40 MG/4 ML VIAL IVP SCH ×3 (02:05→16:48)
[2017-11-11 03:48] LABS: Basophils % 0.4 %; Eosinophils # 0.2 K/mcL (0.0-0.6); Hematocrit 29.7 % (35.3-44.9); Immature Granulocytes % 0.4 % (0-4); Lymphocytes # 2.1 K/mcL (0.6-4.6); Lymphocytes % 19.1 %; Mean Corpuscular Volume 80.7 fL (83.0-100.0); Mean Platelet Volume 13.1 fL (9.4-12.4); Monocytes # 0.7 K/mcL (0.0-1.3); Monocytes % 6.4 %; Neutrophils # 7.8 K/mcL (1.6-8.9); Platelet Count 207 K/mcL (140-400); Red Blood Count 3.68 M/mcL (3.82-4.97); Red Cell Distribution Width 14.6 % (11.5-14.5); Segmented Neutrophils % 71.7 %
[2017-11-11 03:54] LABS: Hemoglobin 9.2 g/dL (11.5-15.4)
[2017-11-11 03:58] LABS: BUN/Creatinine Ratio 36 (6-26); Blood Urea Nitrogen 35 mg/dL (6-20); Calcium 7.9 mg/dL (8.6-10.3); Carbon Dioxide 30 mEq/L (23-29); Chloride 99 mEq/L (98-107); Glucose 294 mg/dL (70-105); Osmolality,Calculated 301 (280-300); Potassium 3.8 mEq/L (3.5-5.1); Sodium 136 mEq/L (136-145); eGFR For African Americans > 60 (> 60); eGFR For Non-African Americans 59 (> 60)
[2017-11-11] MEDS: *HR* Enoxaparin 40 MG/0.4 ML SYRINGE SQ SCH (05:21)
[2017-11-11] MEDS ORDERED: Aminoglycoside Consult 1 EACH MC ONE (08:07)
--- NOTE | 2017-11-11 08:37 | Internal Med Progress Note ---
<Moises Cobos - Last Filed: 11/11/17 14:49> Date of Encounter: 11/11/17 - Assessment and plan (1) DVT prophylaxis Current Visit: Yes Status: Acute (2) Morbid obesity Current Visit: Yes Status: Chronic (3) HTN (hypertension) Current Visit: No Status: Chronic Qualifiers: Hypertension type: essential hypertension Qualified Code(s): I10 - Essential (primary) hypertension (4) HLD (hyperlipidemia) Current Visit: Yes Status: Chronic Qualifiers: Hyperlipidemia type: mixed hyperlipidemia Qualified Code(s): E78.2 - Mixed hyperlipidemia (5) Venous stasis dermatitis of both lower extremities Current Visit: Yes Status: Chronic (6) Type 2 diabetes mellitus Current Visit: Yes Status: Chronic Qualifiers: Diabetes mellitus retirement insulin use: with retirement use Diabetes mellitus complication status: with skin complications Diabetes mellitus complication detail: with dermatitis Qualified Code(s): E11.620 - Type 2 diabetes mellitus with diabetic dermatitis; Z79.4 - long-term (current) use of insulin; Z79.4 - long-term (current) use of insulin; Z79.4 - exterminator helper termite (current ) use of insulin; Z79.4 - long-term (current) use of insulin (7) Bilateral lower leg cellulitis Current Visit: Yes Status: Acute (8) Cough Current Visit: Yes Status: Chronic (9) Acute on chronic diastolic heart failure Current Visit: Yes Status: Acute - Time Spent With Patient Total time spent is greater than 50% in coordination of care (as documented) at patient's floor/unit and/or counseling patient: - Constitutional Vitals: Temp Pulse Resp BP Pulse Ox 98.7 F 90 18 151/71 95 11/11/17 11:12 11/11/17 11:12 11/11/17 11:12 11/11/17 11:12 11/11/17 11:12 Internal Medicine: Result - Labs CBC & Chem 7: 11/11/17 03:18 11/11/17 03:18 Labs: Short CBC 11/11/17 Range/Units 03:18 WBC 10.9 (4.3-11.1) K/mcL Hgb 9.2 L D (11.5-15.4) g/dL Hct 29.7 L (35.3-44.9) % Plt Count 207 (140-400) K/mcL Neutrophils # 7.8 (1.6-8.9) K/mcL BMP 11/11/17 03:18 Sodium 136 Potassium 3.8 Chloride 99 Carbon Dioxide 30 H BUN 35 H Creatinine 0.97 Glucose 294 H Calcium 7.9 L - Impressions Impressions Echocardiogram Limited Views 11/11/17 20:45 Impressions: LVEF 55-60%. Normal LV chamber size and function. Mild concentric left ventricular hypertrophy. Grossly normal right ventricular structure and function. Limited study. Valves not assessed. Left Ventricular Wall Motion: Rest Echo Findings All wall segments showed normal motion. Findings: Study Quality * Technically adequate exam. ECG Findings * Sinus rhythm with PVCs. Left Ventricle * LVEF 55-60%. * Normal LV chamber size and function. * Mild concentric left ventricular hypertrophy. Right Ventricle * Grossly normal right ventricular structure and function. Left Atrium * Moderately dilated left atrium. Right Atrium * Normal right atrial size. Aorta * Normally sized aortic root. Pericardium * The pericardium appears normal. Consult Discharge Plan - Plan Referrals: Jc Tsai MD [Primary Care Provider] - - Attending Attestation I performed an independent interview and exam of this patient. I agree with the findings, assessment, and plan of Dr. Nelson, internal medicine resident. This is a 57-year-old female with morbid obesity, instructed sleep apnea on CPAP , insulin-dependent diabetes mellitus, diastolic CHF, hypertension, and chronic venous stasis. Patient presents to the hospital with acute on chronic diastolic CHF. Echocardiogram done this admission shows an EF of 55-60% with concentric LVH. Etiology for her acute CHF is unclear as she states she has been following her diet and taking her medicines as directed. She also states she has been compliant with CPAP at night. Patient was also felt to have cellulitis of her lower extremities and she was started on Zosyn and vancomycin on admission. Today patient states her breathing is much improved. She has diuresed over 2 L with IV Lasix. Her white blood cell count this morning is normal. Renal function shows BUN and creatinine 35 over 0.97. Blood Sugar is markedly elevated in the 400s. Vitals remained stable and she is afebrile. Satting 95% on 2.5 L of oxygen. Patient's exam is consistent with CHF, predominantly right sided with markedly lower extremity edema. She is on Lasix and this will be continued. We also started Coreg and will likely need to uptitrate this over time. She lists lisinopril as an allergy and we will need to clarify this as Cl inhibitors can have significant benefit in patients with diabetes and hypertension, CHF She does have chronic venous stasis changes of bilateral lower extremities. I do not believe she has bilateral lower extremity cellulitis, however her left leg is much more red than her right, and she has erythema extending all the way from the calf to the middle thigh concerning for cellulitis. She has no history of MRSA. Has multiple wounds and has had multiple drug-resistant organisms, and therefore she will continue on Zosyn. She has no history of MRSA. She did receive 1 dose of vancomycin and it is remaining on hold for now. Pt has multiple lesions on her feet, and she is followed regularly by Dr. Stoll in podiatry. Agree with continuing IV diuresis, antibiotics for left lower extremity cellulitis. We will add on appropriate calcium total level. He has markedly erythema of bilateral anterior shins which I do not suspect represents cellulitis. I suspect this is more of her chronic venous stasis changes. She has resumed her home insulin dosing and we will continue to monitor with sliding scale. Lovenox for DVT prophylaxis. All else as outlined above. <Blanco Nelson - Last Filed: 11/11/17 16:20> Date of Encounter: 11/11/17 Time of Encounter: 08:37 - Assessment and plan (1) Acute on chronic diastolic heart failure Current Visit: Yes Status: Acute Assessment and plan: Exam is consistent with CHF, predominantly right sided with marked lower extremity edema. Echo reveals EF 55-60% with concentric LVH Started Coreg and will likely need to uptitrate this over time. She lists lisinopril as an allergy and we will need to clarify this as Cl inhibitors can have significant benefit in patients with diabetes and hypertension, CHF Continue lasix 40 mg IV BID. Monitor strict I&Os and daily weights. Continue home medications. (2) Bilateral lower leg cellulitis Current Visit: Yes Status: Suspected Assessment and plan: Initially started on empiric IV vancomycin and Zosyn. Multiple wounds and has had multiple drug-resistant organisms on cultures in the past. She has no history of MRSA. Discontinue Vanc to prevent kidney injury. Continue IV zosyn. Repeat CBC in AM Podiatry consulted (3) Venous stasis dermatitis of both lower extremities Current Visit: Yes Status: Chronic Assessment and plan: Chronic venous stasis changes of bilateral lower extremities Wound care consulted She is followed by Dr. Stoll in podiatry (4) HTN (hypertension) Current Visit: No Status: Chronic Assessment and plan: Started Coreg, will likely need to uptitrate this over time. She lists lisinopril as an allergy and we will need to clarify this as Cl inhibitors can have significant benefit in patients with diabetes and hypertension, CHF Continue Lasix 40 mg IV BID. Continue monitoring Qualifiers: Hypertension type: essential hypertension Qualified Code(s): I10 - Essential (primary) hypertension (5) HLD (hyperlipidemia) Current Visit: Yes Status: Chronic Assessment and plan: Continue home medications. Qualifiers: Hyperlipidemia type: mixed hyperlipidemia Qualified Code(s): E78.2 - Mixed hyperlipidemia (6) Type 2 diabetes mellitus Current Visit: Yes Status: Chronic Assessment and plan: Hyperglycemia. HGB A1C 11.1 Continue home lantus. Hold home short-acting insulin. Continue accuchecks and moderate dose SSI QID AC/HS. Qualifiers: Diabetes mellitus retirement insulin use: with retirement use Diabetes mellitus complication status: with skin complications Diabetes mellitus complication detail: with dermatitis Qualified Code(s): E11.620 - Type 2 diabetes mellitus with diabetic dermatitis; Z79.4 - exterminator helper termite (current) use of insulin; Z79.4 - long-term (current) use of insulin; Z79.4 - long-term (current ) use of insulin; Z79.4 - long-term (current) use of insulin (7) REGINALD on CPAP Current Visit: Yes Status: Acute Assessment and plan: Continue CPAP at night (8) Morbid obesity Current Visit: Yes Status: Chronic Assessment and plan: BMI 64.4 Counselled on lifestyle modifications. (9) DVT prophylaxis Current Visit: Yes Status: Acute Assessment and plan: Lovenox 40 mg SQ QD. - Time Spent With Patient Total time spent is greater than 50% in coordination of care (as documented) at patient's floor/unit and/or counseling patient: - Subjective Interval history: Patient seen and examined resting comfortably in bed. Patient reports ambulating today and weeping drainage from lower extremities. She reports no new c/o. - Constitutional Vitals: Temp Pulse Resp BP Pulse Ox 98.3 F 77 16 121/70 94 11/11/17 07:15 11/11/17 07:15 11/11/17 07:15 11/11/17 07:15 11/11/17 07:15 General appearance: Present: cooperative, A&O X 3, morbidly obese, pleasant, no acute distress, answers questions appropriately - Head Head exam: Present: atraumatic, normocephalic - Eye Eye exam: Present: PERRL, conjuntiva pink, sclera anicteric Pupils: Present: PERRL - ENT ENT exam: Present: mucous membranes moist, normal oropharynx - Neck Neck exam general surgery: Present: supple, trachea midline. Absent: lymphadenopathy - Respiratory Respiratory exam: Present: decreased breath sounds, rales. Absent: accessory muscle use, respiratory distress, rhonchi, wheezes - Cardiovascular Cardiovascular exam: Present: RRR, +S1, +S2. Absent: diastolic murmur, gallop, rubs, systolic murmur - GI/Abdominal GI/Abdominal exam: Present: normal bowel sounds, soft, no peritoneal signs. Absent: distended, guarding, tenderness - Extremities Exam Extremities exam: Present: pedal edema (4+ weeping pitting edema), warm, radial pulses palpable and symmetrical. Absent: calf tenderness, cyanotic - Expanded Lower Extremities Exam Lower Leg exam: Present: erythema (her left leg is much more red than her right , and she has erythema extending all the way from the calf to the middle thigh concerning for cellulitis), swelling Foot/Toe exam: Absent: normal inspection - Back Exam Back exam: Present: normal inspection. Absent: tenderness - Neurological Exam Neurological exam: Present: alert, CN II-XII intact, oriented X3, no focal deficits. Absent: altered, pronater drift, facial droop, speech deficit - Psychiatric Psychiatric exam: Present: normal affect, normal mood - Skin Skin exam: Present: erythema (4+ weeping pretibial pitting edema, underlying venous stasis changes), intact, vesicles, warm. Absent: dry, normal color Internal Medicine: Result - Labs CBC & Chem 7: 11/11/17 03:18 11/11/17 03:18 Labs: Short CBC 11/11/17 Range/Units 03:18 WBC 10.9 (4.3-11.1) K/mcL Hgb 9.2 L D (11.5-15.4) g/dL Hct 29.7 L (35.3-44.9) % Plt Count 207 (140-400) K/mcL Neutrophils # 7.8 (1.6-8.9) K/mcL BMP 11/11/17 03:18 Sodium 136 Potassium 3.8 Chloride 99 Carbon Dioxide 30 H BUN 35 H Creatinine 0.97 Glucose 294 H Calcium 7.9 L - Pulse Oximetry Interpretation Digit-Finger Pulse Oximetry Readin (2.5L O2 via NC)
[2017-11-11] MEDS ORDERED: DILTIAZEM HCL 120 MG PO SCH (09:00)
[2017-11-11] MEDS ORDERED: Perflutren Lipid Microsphere 1.3 ML in 0.9 % Sodium Chloride 8.7 ML IVP ONE (10:01)
[2017-11-11] MEDS: Piperacillin/Tazobactam 3.375 GM in 0.9 % Sodium Chloride Mini Bag 100 ML IVPB SCH (16:49)
[2017-11-11] MEDS: tiZANidine 4 MG TABLET PO PRN (18:37)
[2017-11-12] MEDS: Piperacillin/Tazobactam 3.375 GM in 0.9 % Sodium Chloride Mini Bag 100 ML IVPB SCH ×2 (00:45→09:08)
[2017-11-12 02:37] LABS: Basophils # 0.1 K/mcL (0.0-0.2); Basophils % 0.4 %; Eosinophils # 0.2 K/mcL (0.0-0.6); Eosinophils % 1.6 %; Hematocrit 32.8 % (35.3-44.9); Hemoglobin 10.1 g/dL (11.5-15.4); Immature Granulocytes % 0.7 % (0-4); Lymphocytes # 2.1 K/mcL (0.6-4.6); Mean Corpuscular HGB Conc 30.8 g/dL (31.6-35.5); Mean Corpuscular Hemoglobin 25.3 pg (28.0-33.3); Mean Platelet Volume 13.2 fL (9.4-12.4); Monocytes % 6.4 %; Neutrophils # 11.6 K/mcL (1.6-8.9); Platelet Count 251 K/mcL (140-400); Red Cell Distribution Width 14.7 % (11.5-14.5); Segmented Neutrophils % 76.9 %
[2017-11-12 02:40] LABS: INR 1.2; Prothrombin Time 13.1 Seconds (9.4-12.1)
[2017-11-12 02:58] LABS: BUN/Creatinine Ratio 33 (6-26); Blood Urea Nitrogen 34 mg/dL (6-20); Calcium 8.2 mg/dL (8.6-10.3); Carbon Dioxide 32 mEq/L (23-29); Chloride 100 mEq/L (98-107); Glucose 67 mg/dL (70-105); Osmolality,Calculated 294 (280-300); Potassium 3.9 mEq/L (3.5-5.1); Sodium 139 mEq/L (136-145); eGFR For African Americans > 60 (> 60); eGFR For Non-African Americans 55 (> 60)
[2017-11-12] MEDS: *HR* HYDROcodone/Acet 5/325 mg TABLET PO PRN ×2 (03:37→14:32)
[2017-11-12] MEDS: *HR* Enoxaparin 40 MG/0.4 ML SYRINGE SQ SCH (05:41)
--- NOTE | 2017-11-12 07:30 | Internal Med Progress Note ---
<Blanco Nelson - Last Filed: 11/12/17 09:04> Date of Encounter: 11/12/17 Time of Encounter: 07:29 - Assessment and plan (1) Acute on chronic diastolic heart failure Current Visit: Yes Status: Acute Assessment and plan: Exam is consistent with CHF, predominantly right sided with marked lower extremity edema. Echo reveals EF 55-60% with concentric LVH Started Coreg and will likely need to uptitrate this over time. She lists lisinopril as an allergy and we will need to clarify this as Cl inhibitors can have significant benefit in patients with diabetes and hypertension, CHF Continue lasix 40 mg IV BID. Monitor strict I&Os and daily weights. Continue home medications. (2) Bilateral lower leg cellulitis Current Visit: Yes Status: Suspected Assessment and plan: Initially started on empiric IV vancomycin and Zosyn. Multiple wounds and has had multiple drug-resistant organisms on cultures in the past. She has no history of MRSA. Discontinue Vanc to prevent kidney injury. Discontinue Zosyn due to h/o ESBL in the past. WBC increased today and patient had temp 100.4 F last PM Start Invanz 1g daily Repeat CBC in AM Podiatry consulted (3) Venous stasis dermatitis of both lower extremities Current Visit: Yes Status: Chronic Assessment and plan: Chronic venous stasis changes of bilateral lower extremities Wound care consulted She is followed by Dr. Stoll in podiatry (4) HTN (hypertension) Current Visit: No Status: Chronic Assessment and plan: Started Coreg, will likely need to uptitrate this over time. She lists lisinopril as an allergy and we will need to clarify this as Cl inhibitors can have significant benefit in patients with diabetes and hypertension, CHF Continue Lasix 40 mg IV BID. Continue monitoring Qualifiers: Hypertension type: essential hypertension Qualified Code(s): I10 - Essential (primary) hypertension (5) HLD (hyperlipidemia) Current Visit: Yes Status: Chronic Assessment and plan: Continue home medications. Qualifiers: Hyperlipidemia type: mixed hyperlipidemia Qualified Code(s): E78.2 - Mixed hyperlipidemia (6) Type 2 diabetes mellitus Current Visit: Yes Status: Chronic Assessment and plan: Hyperglycemia. HGB A1C 11.1 Continue home lantus. Hold home short-acting insulin. Continue accuchecks and moderate dose SSI QID AC/HS. Qualifiers: Diabetes mellitus tilting head band sawyer insulin use: with tilting head band sawyer use Diabetes mellitus complication status: with skin complications Diabetes mellitus complication detail: with dermatitis Qualified Code(s): E11.620 - Type 2 diabetes mellitus with diabetic dermatitis; Z79.4 - USP (current) use of insulin; Z79.4 - internet e commerce specialist (current) use of insulin; Z79.4 - USP (current ) use of insulin; Z79.4 - USP (current) use of insulin (7) Morbid obesity Current Visit: Yes Status: Chronic Assessment and plan: BMI 64.4 Counselled on lifestyle modifications. (8) DVT prophylaxis Current Visit: Yes Status: Acute Assessment and plan: Lovenox 40 mg SQ QD. (9) REGINALD on CPAP Current Visit: Yes Status: Acute Assessment and plan: Continue CPAP at night - Time Spent With Patient Total time spent is greater than 50% in coordination of care (as documented) at patient's floor/unit and/or counseling patient: - Subjective Interval history: Patient seen and examined resting comfortably in bed. She reports no new c/o. WBC increased today and patient had temp 100.4 F last PM. Patient refused CPAP last PM. - Constitutional Vitals: Temp Pulse Resp BP Pulse Ox 98.5 F 93 16 118/67 94 11/12/17 06:41 11/12/17 06:41 11/12/17 06:41 11/12/17 06:41 11/12/17 06:41 General appearance: Present: cooperative, A&O X 3, morbidly obese, pleasant, no acute distress, answers questions appropriately - Head Head exam: Present: atraumatic, normocephalic - Eye Eye exam: Present: PERRL, conjuntiva pink, sclera anicteric Pupils: Present: PERRL - ENT ENT exam: Present: mucous membranes moist, normal oropharynx - Neck Neck exam general surgery: Present: supple, trachea midline. Absent: lymphadenopathy - Respiratory Respiratory exam: Present: CTAB. Absent: accessory muscle use, rales, rhonchi, wheezes - Cardiovascular Cardiovascular exam: Present: RRR, +S1, +S2. Absent: diastolic murmur, gallop, rubs, systolic murmur - GI/Abdominal GI/Abdominal exam: Present: normal bowel sounds, soft, no peritoneal signs. Absent: distended, tenderness - Extremities Exam Extremities exam: Present: pedal edema (erythema in left leg is much more red than her right, and she has erythema extending all the way from the calf to the middle thigh concerning for cellulitis), warm, radial pulses palpable and symmetrical. Absent: calf tenderness, cyanotic - Back Exam Back exam: Present: normal inspection. Absent: tenderness - Neurological Exam Neurological exam: Present: CN II-XII intact, oriented X3, no focal deficits. Absent: pronater drift, facial droop, speech deficit - Psychiatric Psychiatric exam: Present: normal affect, normal mood - Skin Skin exam: Present: erythema (her left leg is much more red than her right, and she has erythema extending all the way from the calf to the middle thigh concerning for cellulitis), excoriation, vesicles, warm Internal Medicine: Result - Labs CBC & Chem 7: 11/12/17 01:52 11/12/17 01:52 Labs: Short CBC 11/12/17 Range/Units 01:52 WBC 15.1 H (4.3-11.1) K/mcL Hgb 10.1 L (11.5-15.4) g/dL Hct 32.8 L (35.3-44.9) % Plt Count 251 (140-400) K/mcL Neutrophils # 11.6 H (1.6-8.9) K/mcL BMP 11/12/17 01:52 Sodium 139 Potassium 3.9 Chloride 100 Carbon Dioxide 32 H BUN 34 H Creatinine 1.03 Glucose 67 L Calcium 8.2 L - ABG Interpretation ABG results: PT/INR, D-dimer PT 13.1 Seconds (9.4-12.1) H 11/12/17 01:52 - Pulse Oximetry Interpretation Digit-Finger Pulse Oximetry Readin (2L O2 via NC) - Impressions Impressions Echocardiogram Limited Views 11/11/17 20:45 Impressions: LVEF 55-60%. Normal LV chamber size and function. Mild concentric left ventricular hypertrophy. Grossly normal right ventricular structure and function. Limited study. Valves not assessed. Left Ventricular Wall Motion: Rest Echo Findings All wall segments showed normal motion. Findings: Study Quality * Technically adequate exam. ECG Findings * Sinus rhythm with PVCs. Left Ventricle * LVEF 55-60%. * Normal LV chamber size and function. * Mild concentric left ventricular hypertrophy. Right Ventricle * Grossly normal right ventricular structure and function. Left Atrium * Moderately dilated left atrium. Right Atrium * Normal right atrial size. Aorta * Normally sized aortic root. Pericardium * The pericardium appears normal. Consult Discharge Plan - Plan Referrals: Jc Tsia MD [Primary Care Provider] - <DianameirCatrachito santana - Last Filed: 11/12/17 13:53> Date of Encounter: 11/12/17 - Assessment and plan (1) DVT prophylaxis Current Visit: Yes Status: Acute (2) Morbid obesity Current Visit: Yes Status: Chronic (3) HTN (hypertension) Current Visit: No Status: Chronic Qualifiers: Hypertension type: essential hypertension Qualified Code(s): I10 - Essential (primary) hypertension (4) HLD (hyperlipidemia) Current Visit: Yes Status: Chronic Qualifiers: Hyperlipidemia type: mixed hyperlipidemia Qualified Code(s): E78.2 - Mixed hyperlipidemia (5) Venous stasis dermatitis of both lower extremities Current Visit: Yes Status: Chronic (6) Type 2 diabetes mellitus Current Visit: Yes Status: Chronic Qualifiers: Diabetes mellitus senior care insulin use: with tilting head band sawyer use Diabetes mellitus complication status: with skin complications Diabetes mellitus complication detail: with dermatitis Qualified Code(s): E11.620 - Type 2 diabetes mellitus with diabetic dermatitis; Z79.4 - USP (current) use of insulin; Z79.4 - USP (current) use of insulin; Z79.4 - USP (current ) use of insulin; Z79.4 - internet e commerce specialist (current) use of insulin (7) Bilateral lower leg cellulitis Current Visit: Yes Status: Suspected (8) Acute on chronic diastolic heart failure Current Visit: Yes Status: Acute (9) REGINALD on CPAP Current Visit: Yes Status: Acute - Time Spent With Patient Total time spent is greater than 50% in coordination of care (as documented) at patient's floor/unit and/or counseling patient: - Constitutional Vitals: Temp Pulse Resp BP Pulse Ox 98.8 F 87 16 123/76 95 11/12/17 10:23 11/12/17 10:23 11/12/17 10:23 11/12/17 10:23 11/12/17 10:23 Internal Medicine: Result - Labs CBC & Chem 7: 11/12/17 01:52 11/12/17 01:52 Labs: Short CBC 11/12/17 Range/Units 01:52 WBC 15.1 H (4.3-11.1) K/mcL Hgb 10.1 L (11.5-15.4) g/dL Hct 32.8 L (35.3-44.9) % Plt Count 251 (140-400) K/mcL Neutrophils # 11.6 H (1.6-8.9) K/mcL BMP 11/12/17 01:52 Sodium 139 Potassium 3.9 Chloride 100 Carbon Dioxide 32 H BUN 34 H Creatinine 1.03 Glucose 67 L Calcium 8.2 L - ABG Interpretation ABG results: PT/INR, D-dimer PT 13.1 Seconds (9.4-12.1) H 11/12/17 01:52 - Attending Attestation acute diastolic CHF exacerbation lasix bilateral lower extremities cellulitis/ulcers Hx of ESBL Start Ertapenem Podiatry consulted I examined this patient and my medical decision-making was reviewed with the Resident Physician. I agree with the documented findings, disposition and treatment plan as described except to the extent set forth below.
[2017-11-12] MEDS: Insulin LISPRO 300 UNITS/3 ML VIAL SQ SCH ×4 (07:47→21:33)
[2017-11-12] MEDS: Insulin DETEMIR 100 UNIT/ML X5UNITS SQ SCH ×2 (07:47→21:35)
[2017-11-12] MEDS: Benzonatate 100 MG CAPSULE PO SCH ×3 (09:10→21:32)
[2017-11-12] MEDS: Diltiazem SR (12hr) 60 MG CAPSULE PO SCH (09:10)
[2017-11-12] MEDS: Ascorbic Acid 500 MG TABLET PO SCH ×2 (09:10→21:33)
[2017-11-12] MEDS: Pregabalin 75 MG CAPSULE PO SCH ×2 (09:10→21:32)
[2017-11-12] MEDS: Furosemide 40 MG/4 ML VIAL IVP SCH ×2 (09:10→17:15)
[2017-11-12] MEDS: tiZANidine 4 MG TABLET PO PRN (09:15)
[2017-11-12] MEDS: Fluticasone Propionate Nasal 50 MCG/SPRAY BOTTLE NS SCH (09:17)
[2017-11-12] MEDS: Ketoconazole 2% CRM 15 GM TUBE TP SCH (09:18)
[2017-11-12] MEDS: Gentamicin Oint 15 GM TUBE TP SCH ×2 (09:18→21:35)
[2017-11-12] MEDS: Ertapenem 1,000 MG in 0.9 % Sodium Chloride Mini Bag 100 ML IVPB SCH (09:37)
[2017-11-12] MEDS: Latanoprost 2.5 ML BOTTLE BOTH EYES SCH (21:35)
[2017-11-12] MEDS ORDERED: Ondansetron 4 MG/2 ML VIAL IVP PRN (23:12)
--- NOTE | 2017-11-12 23:21 | Podiatry Consult Note ---
Date of Encounter: 11/12/17 Time of Encounter: 13:09 Assessment and Plan (1) Diabetic foot ulcer Current visit: No Status: Acute Utilizing a #15 blade the lesions on both feet were debrided. The tissue debrided consisted of subcutaneous/epidermal tissue. The lesions debrided were on the heel of the right foot, fifth digit of the right foot, great toe of the right foot, great toe of the left foot, lateral aspect of the left foot. The sites were all noted to be noninfected and serous fluid was filling the bullous lesion. The sites were dressed with Adaptic, 4 x 4's, Kerlix. We will continue to monitor the sites were healing. Qualifiers: Diabetic foot ulcer location: midfoot Diabetes mellitus type: type 2 Laterality: right Non-pressure ulcer stage: limited to breakdown of skin Qualified Code(s): E11.621 - Type 2 diabetes mellitus with foot ulcer; L97.411 - Non-pressure chronic ulcer of right heel and midfoot limited to breakdown of skin History of Present Illness Chief complaint: open lesions bilateral feet HPI: Ms. Magallanes is a 57 year old female who relates that she has had ulcers in the past and sees Dr. Stoll. Patient relates that she currently has a bunch of skin lesions on her feet and is unsure of how they got there. Patient relates that she thinks it is due to the swelling. Past Med Surg Social Fam HX - Past Medical History Medical history: CHF (Chronic Diastolic), diabetes, hypertension, other Psychiatric history: depression - Past Surgical History Surgical History: hysterectomy, other - Social History Smoking Status: Never smoker Smokeless Tobacco Status: No Alcohol use: none Drug use: none - Family History Mother Living Status: Age at : 55 Hx Family Endocrine Disorder: Yes (Dm) Father Living Status: Age at : 70 Cause of : KIDNEYS Hx Family Cardiac Disorders: No Hx Family Respiratory Disorders: No Hx Family Cancer: No Hx Family GI Disorders: No Hx Family Genitourinary Disorders: Yes (KIDNEY PROBLEMS) Medications and Allergies Atorvastatin [Lipitor] 40 mg PO HS 01/11/16 [History] Insulin ASPART [Novolog Flexpen] 6 - 14 unit SQ TID 01/11/16 [History] Insulin Glargine,Hum.rec.anlog [Lantus Solostar] 100 unit SQ BID 01/11/16 [ History] Latanoprost [Xalatan] 1 drop BOTH EYES HS 01/11/16 [History] Primidone [Mysoline] 25 - 50 mg PO BID PRN 01/11/16 [History] Tizanidine HCl 4 mg PO TID PRN 01/11/16 [History] clonazePAM [Klonopin] 0.5 mg PO BID PRN 01/11/16 [History] Acetaminophen [Tylenol] 650 mg PO Q6HR PRN #0 tablet 01/12/16 [Rx] Ascorbic Acid [Vitamin C] 500 mg PO BID 03/25/16 [History] Docusate Sodium [Colace] 200 mg PO BID 03/25/16 [History] Furosemide [Lasix] 40 mg PO BID 12/06/16 [History] Pregabalin [Lyrica] 75 mg PO BID 12/06/16 [History] Potassium Chloride [K-Tab ER] 20 meq PO TID #0 12/08/16 [Rx] Fluticasone Propionate Nasal [Flonase] 2 spray NS DAILY #1 bottle 08/28/17 [Rx] Guaifenesin [Guaifenesin ER] 600 mg PO BID PRN #20 tab.er.12h 08/28/17 [Rx] Benzonatate [Tessalon] 100 mg PO TID #30 capsule 10/03/17 [Rx] Brimonidine Tartrate/Timolol [Combigan 0.2%-0.5% Eye Drops] 1 drop OP BID [History] Diltiazem HCl [Diltiazem 12Hr ER] 120 mg PO DAILY 11/10/17 [History] Esomeprazole Magnesium [Nexium] 40 mg PO DAILY 11/10/17 [History] Gentamicin Oint [Garamycin] 1 appl TP BID 11/10/17 [History] Ketoconazole 2% CRM [Nizoral Cream] 1 appl TP DAILY 11/10/17 [History] Ketorolac Tromethamine 1 drop OP QID 11/10/17 [History] Losartan Potassium [Cozaar] 100 mg PO DAILY 11/10/17 [History] 3 Allergy/AdvReac Type Severity Reaction Status Date / Time lisinopril [From Zestril] Allergy Rash Verified 11/10/17 16:06 All Systems Reviewed: The remainder of the systems were reviewed and are negative Physical Exam - Constitutional Vitals: Temp Pulse Resp BP Pulse Ox 102.8 F H 99 17 131/73 89 11/12/17 19:45 11/12/17 19:45 11/12/17 19:45 11/12/17 19:45 11/12/17 19:45 Exam: Pedal pulses difficult to palpate secondary to edema. Capillary fill time intact to digits 1 through 5 bilaterally. The lower extremities have significant edema. There are multiple bullous lesions to bilateral feet. On the right foot there is a large ulceration on the heel and great toe and fifth toe, all of the open lesions are secondary to the bullous lesions that were present and a result of the debridement of the bullous lesions. On the left foot there is a large open lesion to the great toe and lateral aspect of the foot secondary to the debridement of the bullous lesion. No infection noted, just serous fluid. The serous fluid was cultured. Results - Labs Result Diagrams: 11/12/17 01:52 11/12/17 01:52 Labs: Abnormal lab results WBC 15.1 K/mcL (4.3-11.1) H 11/12/17 01:52 Hgb 10.1 g/dL (11.5-15.4) L 11/12/17 01:52 Hct 32.8 % (35.3-44.9) L 11/12/17 01:52 MCV 82.0 fL (83.0-100.0) L 11/12/17 01:52 MCH 25.3 pg (28.0-33.3) L 11/12/17 01:52 MCHC 30.8 g/dL (31.6-35.5) L 11/12/17 01:52 RDW 14.7 % (11.5-14.5) H 11/12/17 01:52 MPV 13.2 fL (9.4-12.4) H 11/12/17 01:52 Neutrophils # 11.6 K/mcL (1.6-8.9) H 11/12/17 01:52 PT 13.1 Seconds (9.4-12.1) H 11/12/17 01:52 Carbon Dioxide 32 mEq/L (23-29) H 11/12/17 01:52 BUN 34 mg/dL (6-20) H 11/12/17 01:52 Est GFR (Non-Af Amer) 55 (> 60) L 11/12/17 01:52 BUN/Creatinine Ratio 33 (6-26) H 11/12/17 01:52 Glucose 67 mg/dL (70-105) L 11/12/17 01:52 POC Glucose 101 mg/dL (70-99) H 11/12/17 03:09 Hemoglobin A1c 11.7 % (-5.6) H 11/10/17 13:19 Calcium 8.2 mg/dL (8.6-10.3) L 11/12/17 01:52 B-Natriuretic Peptide 182 pg/mL (Less than 100) H 11/11/17 03:18 H & H 11/12/17 Range/Units 01:52 Hgb 10.1 L (11.5-15.4) g/dL Hct 32.8 L (35.3-44.9) % All other labs normal. Consult Discharge Plan - Plan Referrals: Jc Tsai MD [Primary Care Provider] -
[2017-11-13 01:25] LABS: Basophils # 0.1 K/mcL (0.0-0.2); Basophils % 0.4 %; Eosinophils # 0.2 K/mcL (0.0-0.6); Eosinophils % 1.2 %; Hematocrit 32.7 % (35.3-44.9); Immature Granulocytes % 0.5 % (0-4); Lymphocytes # 2.6 K/mcL (0.6-4.6); Lymphocytes % 18.7 %; Mean Corpuscular HGB Conc 30.6 g/dL (31.6-35.5); Mean Corpuscular Hemoglobin 24.7 pg (28.0-33.3); Mean Corpuscular Volume 80.7 fL (83.0-100.0); Mean Platelet Volume 12.7 fL (9.4-12.4); Platelet Count 240 K/mcL (140-400); Red Blood Count 4.05 M/mcL (3.82-4.97); Red Cell Distribution Width 14.8 % (11.5-14.5); Segmented Neutrophils % 72.2 %
[2017-11-13 02:51] LABS: Calcium 8.2 mg/dL (8.6-10.3); Potassium 4.5 mEq/L (3.5-5.1)
[2017-11-13] MEDS: *HR* Enoxaparin 40 MG/0.4 ML SYRINGE SQ SCH (05:43)
[2017-11-13] MEDS: Insulin LISPRO 300 UNITS/3 ML VIAL SQ SCH ×4 (07:23→22:32)
[2017-11-13] MEDS: Ascorbic Acid 500 MG TABLET PO SCH ×2 (07:49→22:34)
[2017-11-13] MEDS: Benzonatate 100 MG CAPSULE PO SCH ×3 (07:49→22:34)
[2017-11-13] MEDS: Diltiazem SR (12hr) 60 MG CAPSULE PO SCH (07:50)
[2017-11-13] MEDS: Pregabalin 75 MG CAPSULE PO SCH ×2 (07:50→22:34)
[2017-11-13] MEDS: Insulin DETEMIR 100 UNIT/ML X5UNITS SQ SCH ×2 (07:51→22:32)
[2017-11-13] MEDS: Fluticasone Propionate Nasal 50 MCG/SPRAY BOTTLE NS SCH (07:51)
[2017-11-13] MEDS: Furosemide 40 MG/4 ML VIAL IVP SCH ×2 (07:51→18:27)
--- NOTE | 2017-11-13 08:33 | Internal Med Progress Note ---
<Blanco Nelson - Last Filed: 11/13/17 08:31> Date of Encounter: 11/13/17 Time of Encounter: 08:31 - Assessment and plan (1) Acute on chronic diastolic heart failure Current Visit: Yes Status: Acute Assessment and plan: Exam is consistent with CHF, predominantly right sided with marked lower extremity edema. Echo reveals EF 55-60% with concentric LVH Continue Coreg, will likely need to uptitrate this over time. She lists lisinopril as an allergy and we will need to clarify this as Cl inhibitors can have significant benefit in patients with diabetes and hypertension, CHF Continue lasix 40 mg IV BID. Fluid balance: -[id number] Monitor strict I&Os and daily weights. Continue home medications. (2) Bilateral lower leg cellulitis Current Visit: Yes Status: Suspected Assessment and plan: Initially started on empiric IV vancomycin and Zosyn. Multiple wounds and has had multiple drug-resistant organisms on cultures in the past. She has no history of MRSA. Discontinue Vanc to prevent kidney injury. Discontinue Zosyn due to h/o ESBL in the past. WBC decreased today and patient had temp 102.8 F last PM Continue Invanz 1g daily (Day 2) Repeat CBC in AM Podiatry consulted, performed bedside debridement, appreciate recommendations (3) Venous stasis dermatitis of both lower extremities Current Visit: Yes Status: Chronic Assessment and plan: Chronic venous stasis changes of bilateral lower extremities Wound care consulted She is followed by Dr. Stoll in podiatry (4) HTN (hypertension) Current Visit: No Status: Chronic Assessment and plan: Continue Coreg, will likely need to uptitrate this over time. She lists lisinopril as an allergy and we will need to clarify this as Cl inhibitors can have significant benefit in patients with diabetes and hypertension, CHF Continue Lasix 40 mg IV BID. Continue monitoring Qualifiers: Hypertension type: essential hypertension Qualified Code(s): I10 - Essential (primary) hypertension (5) HLD (hyperlipidemia) Current Visit: Yes Status: Chronic Assessment and plan: Continue home medications. Qualifiers: Hyperlipidemia type: mixed hyperlipidemia Qualified Code(s): E78.2 - Mixed hyperlipidemia (6) Type 2 diabetes mellitus Current Visit: Yes Status: Chronic Assessment and plan: Hyperglycemia. HGB A1C 11.1 Continue home lantus. Hold home short-acting insulin. Continue accuchecks and moderate dose SSI QID AC/HS. Qualifiers: Diabetes mellitus [facility] insulin use: with [facility] use Diabetes mellitus complication status: with skin complications Diabetes mellitus complication detail: with dermatitis Qualified Code(s): E11.620 - Type 2 diabetes mellitus with diabetic dermatitis; Z79.4 - [facility] (current) use of insulin; Z79.4 - terminal manager (current) use of insulin; Z79.4 - [facility] (current ) use of insulin; Z79.4 - [facility] (current) use of insulin (7) Morbid obesity Current Visit: Yes Status: Chronic Assessment and plan: BMI 64.4 Counselled on lifestyle modifications. (8) DVT prophylaxis Current Visit: Yes Status: Acute Assessment and plan: Lovenox 40 mg SQ QD. (9) REGINALD on CPAP Current Visit: Yes Status: Acute Assessment and plan: Continue CPAP at night - Time Spent With Patient Total time spent is greater than 50% in coordination of care (as documented) at patient's floor/unit and/or counseling patient: - Subjective Interval history: Patient seen and examined resting comfortably in bed. She reports no new c/o. WBC decreased today and patient had temp 102.8 F last PM. - Constitutional Vitals: Temp Pulse Resp BP Pulse Ox 98.5 F 76 16 112/69 91 11/13/17 07:01 11/13/17 07:01 11/13/17 07:01 11/13/17 07:01 11/13/17 07:01 General appearance: Present: cooperative, A&O X 3, morbidly obese, pleasant, no acute distress, answers questions appropriately - Head Head exam: Present: atraumatic, normocephalic - Eye Eye exam: Present: PERRL, conjuntiva pink, sclera anicteric Pupils: Present: PERRL - ENT ENT exam: Present: mucous membranes moist, normal oropharynx - Neck Neck exam general surgery: Present: supple, trachea midline. Absent: lymphadenopathy - Respiratory Respiratory exam: Present: CTAB. Absent: accessory muscle use, rales, rhonchi, wheezes - Cardiovascular Cardiovascular exam: Present: RRR, +S1, +S2. Absent: diastolic murmur, gallop, rubs, systolic murmur - GI/Abdominal GI/Abdominal exam: Present: normal bowel sounds, soft, no peritoneal signs. Absent: distended, tenderness Additional comments: obese - Additional comments: ruiz in place - Extremities Exam Extremities exam: Present: pedal edema (erythema in left leg is much more red than her right, and she has erythema extending all the way from the calf to the middle thigh concerning for cellulitis), warm, radial pulses palpable and symmetrical. Absent: calf tenderness, cyanotic - Neurological Exam Neurological exam: Present: CN II-XII intact, oriented X3, no focal deficits. Absent: pronater drift, facial droop, speech deficit - Psychiatric Psychiatric exam: Present: normal affect, normal mood - Skin Skin exam: Present: erythema (erythema in left leg is much more red than her right, and she has erythema extending all the way from the calf to the middle thigh concerning for cellulitis), intact, warm Internal Medicine: Result - Labs CBC & Chem 7: 11/13/17 01:13 11/13/17 01:13 Labs: Short CBC 11/13/17 Range/Units 01:13 WBC 13.8 H (4.3-11.1) K/mcL Hgb 10.0 L (11.5-15.4) g/dL Hct 32.7 L (35.3-44.9) % Plt Count 240 (140-400) K/mcL Neutrophils # 10.0 H (1.6-8.9) K/mcL BMP 11/13/17 01:13 Sodium 141 Potassium 4.5 Chloride 100 Carbon Dioxide 31 H BUN 37 H Creatinine 1.25 H Glucose 93 Calcium 8.2 L - ABG Interpretation ABG results: PT/INR, D-dimer PT 13.1 Seconds (9.4-12.1) H 11/12/17 01:52 - Pulse Oximetry Interpretation Digit-Finger Pulse Oximetry Readin (3L O2 via NC) Consult Discharge Plan - Plan Referrals: Jc Tsai MD [Primary Care Provider] - <Catrachito Ambrocio H - Last Filed: 11/13/17 10:05> Date of Encounter: 11/13/17 - Assessment and plan (1) DVT prophylaxis Current Visit: Yes Status: Acute (2) Morbid obesity Current Visit: Yes Status: Chronic (3) HTN (hypertension) Current Visit: No Status: Chronic Qualifiers: Hypertension type: essential hypertension Qualified Code(s): I10 - Essential (primary) hypertension (4) HLD (hyperlipidemia) Current Visit: Yes Status: Chronic Qualifiers: Hyperlipidemia type: mixed hyperlipidemia Qualified Code(s): E78.2 - Mixed hyperlipidemia (5) Venous stasis dermatitis of both lower extremities Current Visit: Yes Status: Chronic (6) Type 2 diabetes mellitus Current Visit: Yes Status: Chronic Qualifiers: 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: with termite treater use Diabetes mellitus complication status: with skin complications Diabetes mellitus complication detail: with dermatitis Qualified Code(s): E11.620 - Type 2 diabetes mellitus with diabetic dermatitis; Z79.4 - [facility] (current) use of insulin; Z79.4 - terminal manager (current) use of insulin; Z79.4 - [facility] (current ) use of insulin; Z79.4 - terminal manager (current) use of insulin (7) Bilateral lower leg cellulitis Current Visit: Yes Status: Suspected (8) Acute on chronic diastolic heart failure Current Visit: Yes Status: Acute (9) REGINALD on CPAP Current Visit: Yes Status: Acute - Time Spent With Patient Total time spent is greater than 50% in coordination of care (as documented) at patient's floor/unit and/or counseling patient: - Constitutional Vitals: Temp Pulse Resp BP Pulse Ox 98.5 F 76 16 112/69 91 11/13/17 07:01 11/13/17 07:01 11/13/17 07:01 11/13/17 07:01 11/13/17 07:01 Internal Medicine: Result - Labs CBC & Chem 7: 11/13/17 01:13 11/13/17 01:13 Labs: Short CBC 11/13/17 Range/Units 01:13 WBC 13.8 H (4.3-11.1) K/mcL Hgb 10.0 L (11.5-15.4) g/dL Hct 32.7 L (35.3-44.9) % Plt Count 240 (140-400) K/mcL Neutrophils # 10.0 H (1.6-8.9) K/mcL BMP 11/13/17 01:13 Sodium 141 Potassium 4.5 Chloride 100 Carbon Dioxide 31 H BUN 37 H Creatinine 1.25 H Glucose 93 Calcium 8.2 L - ABG Interpretation ABG results: PT/INR, D-dimer PT 13.1 Seconds (9.4-12.1) H 11/12/17 01:52 - Attending Attestation acute diastolic CHF exacerbation lasix bilateral lower extremities cellulitis/ulcers Hx of ESBL Consider doxycycline, continue Ertapenem Podiatry consulted recheck BPM in am I examined this patient and my medical decision-making was reviewed with the Resident Physician. I agree with the documented findings, disposition and treatment plan as described except to the extent set forth below.
[2017-11-13] MEDS: Ertapenem 1,000 MG in 0.9 % Sodium Chloride Mini Bag 100 ML IVPB SCH (10:45)
--- NOTE | 2017-11-13 10:45 | Infectious Disease Consult ---
Date of Encounter: 11/13/17 Time of Encounter: 10:23 Assessment and Plan (1) Bilateral lower leg cellulitis Status: Suspected Assessment and plan: Plan as above (2) Acute on chronic diastolic heart failure Status: Acute Assessment and plan: Echocardiogram from 11/11/17 shows EF 55-60%, normal LV chamber size and function , mild concentric LVH Management per primary team (3) HTN (hypertension) Status: Chronic Qualifiers: Hypertension type: essential hypertension Qualified Code(s): I10 - Essential (primary) hypertension (4) HLD (hyperlipidemia) Status: Chronic Qualifiers: Hyperlipidemia type: mixed hyperlipidemia Qualified Code(s): E78.2 - Mixed hyperlipidemia (5) Type 2 diabetes mellitus Status: Chronic Assessment and plan: Per primary team Qualifiers: 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: with architectural engineering teacher use Diabetes mellitus complication status: with skin complications Diabetes mellitus complication detail: with dermatitis Qualified Code(s): E11.620 - Type 2 diabetes mellitus with diabetic dermatitis; Z79.4 - medical services manager (current) use of insulin; Z79.4 - [facility] (current) use of insulin; Z79.4 - [facility] (current ) use of insulin; Z79.4 - medical services manager (current) use of insulin (6) Morbid obesity Status: Chronic (7) REGINALD on CPAP Status: Acute Infectious Disease HPI - Data of Consult Patient: known to practice within the last 3 years Consult date: 11/13/17 Requesting Physician: Doc Kingsley Primary Care Provider: Jc Tsai MD - Consult Narrative Reason for consult: Cellulitis, recurrent fever, history of ESBL Klebsiella, DM History of present illness: Ms. Magallanes is a 57 year old female who arrived to the hospital on 11/10/17 with chief complaint of bilateral lower extremity edema and shortness of breath. Infectious disease was consult it on 11/13/17 for cellulitis, recurrent fever, history of Klebsiella ESBL. She has a past medical history of diastolic CHF, diabetes, hypertension. Patient lives at home with her , and came to the hospital because she was having increased shortness of breath was bilateral lower extremity edema, which also give her difficulty with ambulating. Upon arrival to the ER, vitals were: temperature 98.8, heart rate 113, respirations 20, blood pressure 193/89, O2 saturation 94% on 2 L. Leukocytosis with WBC 14.6, lactic acid of 2, A1C 11.7. Patient was admitted for further evaluation and workup. chest x -ray showed findings of CHF. Bilateral lower extremity vascular studies showed normal superficial and deep exam. Limited Echocardiogram from 11/11/17 showed EF 55-60%, normal LV chamber size and function, mild LVH. After admission, patient was empirically treated with vancomycin and Zosyn. Consult to podiatry was made and legions of both feet were debrided. Debridement consisted of subcutaneous/epidermal tissue. Evie has had blood culturesx2 that show no growth to date. In the past, she has had alexander cultures positive for Klebsiella ESBL, Providencia stuartii, Enterococcous faecalis. Past blood cultures have been positive for Moraxella Atlantae. She received 2 days of Zosyn, one dose of vancomycin. She is currently on day 2 of Ertapenem. Today patient denies nausea, vomiting, fever, chills, chest pain, shortness of breath. She does admit to some diarrhea. He states that she checks her blood glucose at home about twice a day in her sugars typically run around 180. She has had multiple admissions in the past 22 bilateral lower extremity edema. CC: Doc Kingsley Past Med Surg Social Fam HX - Past Medical History Medical history: CHF (Chronic Diastolic), diabetes, hypertension, other Psychiatric history: depression - Past Surgical History Surgical History: hysterectomy, other - Social History Smoking Status: Never smoker Smokeless Tobacco Status: No Alcohol use: none Drug use: none - Family History Mother Living Status: Age at : 55 Hx Family Endocrine Disorder: Yes (Dm) Father Living Status: Age at : 70 Cause of : KIDNEYS Hx Family Cardiac Disorders: No Hx Family Respiratory Disorders: No Hx Family Cancer: No Hx Family GI Disorders: No Hx Family Genitourinary Disorders: Yes (KIDNEY PROBLEMS) Infectious Disease-CN:Meds Atorvastatin [Lipitor] 40 mg PO HS 01/11/16 [History] Insulin ASPART [Novolog Flexpen] 6 - 14 unit SQ TID 01/11/16 [History] Insulin Glargine,Hum.rec.anlog [Lantus Solostar] 100 unit SQ BID 01/11/16 [ History] Latanoprost [Xalatan] 1 drop BOTH EYES HS 01/11/16 [History] Primidone [Mysoline] 25 - 50 mg PO BID PRN 01/11/16 [History] Tizanidine HCl 4 mg PO TID PRN 01/11/16 [History] clonazePAM [Klonopin] 0.5 mg PO BID PRN 01/11/16 [History] Acetaminophen [Tylenol] 650 mg PO Q6HR PRN #0 tablet 01/12/16 [Rx] Ascorbic Acid [Vitamin C] 500 mg PO BID 03/25/16 [History] Docusate Sodium [Colace] 200 mg PO BID 03/25/16 [History] Furosemide [Lasix] 40 mg PO BID 12/06/16 [History] Pregabalin [Lyrica] 75 mg PO BID 12/06/16 [History] Potassium Chloride [K-Tab ER] 20 meq PO TID #0 12/08/16 [Rx] Fluticasone Propionate Nasal [Flonase] 2 spray NS DAILY #1 bottle 08/28/17 [Rx] Guaifenesin [Guaifenesin ER] 600 mg PO BID PRN #20 tab.er.12h 08/28/17 [Rx] Benzonatate [Tessalon] 100 mg PO TID #30 capsule 10/03/17 [Rx] Brimonidine Tartrate/Timolol [Combigan 0.2%-0.5% Eye Drops] 1 drop OP BID [History] Diltiazem HCl [Diltiazem 12Hr ER] 120 mg PO DAILY 11/10/17 [History] Esomeprazole Magnesium [Nexium] 40 mg PO DAILY 11/10/17 [History] Gentamicin Oint [Garamycin] 1 appl TP BID 11/10/17 [History] Ketoconazole 2% CRM [Nizoral Cream] 1 appl TP DAILY 11/10/17 [History] Ketorolac Tromethamine 1 drop OP QID 11/10/17 [History] Losartan Potassium [Cozaar] 100 mg PO DAILY 11/10/17 [History] 3 Allergy/AdvReac Type Severity Reaction Status Date / Time lisinopril [From Zestril] Allergy Rash Verified 11/10/17 16:06 All systems: reviewed and no additional remarkable complaints except as stated Exam - Constitutional Vitals: Temp Pulse Resp BP Pulse Ox 98.5 F 76 16 112/69 91 11/13/17 07:01 11/13/17 07:01 11/13/17 07:01 11/13/17 07:01 11/13/17 07:01 General appearance: morbidly obese, no acute distress - Head Head exam: Present: atraumatic, normocephalic - Respiratory Respiratory exam: Present: CTAB - Cardiovascular Cardiovascular exam: Present: RRR, +S1, +S2 - GI/Abdominal GI/Abdominal exam: Present: soft Additional comments: Soft, distended, no tenderness to palpation, positive bowel sounds. - Extremities Exam Additional comments: bilateral lower extremity calves completely erythematous with +1 pitting edema present. Bilateral feet were wrapped in dressing. - Neurological Exam Neurological exam: Present: alert, oriented X3 - Psychiatric Psychiatric exam: Present: normal affect, normal mood Infectious Disease CN: Results - Labs CBC & Chem 7: 11/14/17 08:52 11/14/17 08:52 Consult Discharge Plan - Plan Referrals: Jc Tsai MD [Primary Care Provider] - - Attending Attestation I examined this patient and my medical decision-making was reviewed with the Resident Physician. I agree with the documented findings, disposition and treatment plan as described except to the extent set forth below. This is an addendum to original report dictated by resident physician. please refer to residents note for full detailspatient is a 57 year old woman, known to my service have been seen by me previously for sepsis in 2016 came in complaining of bilateral lower extremity edema and wheeping fluid . patient also had shortness of breath.Work up so far revealed negative cXR, negative blood cultures and a wound from the foot that has grown 2 gram negative rods and enterococcus. No MRSA. patient also has very poor controlled DM with A1C running around 11-12 persistently.Patient received vancomycin and zosyn and continued to have fever and leukocytosis. we were asked to evaluate and make further recommendations.Currently, patient appears to be a poor historian but seems to give semi accurate information. her ROS is negative. No URI symptoms , no chest pain, no shortness of breath, no abdominal pain, no diarrhea, no nausea or vomiting and no urinary symptoms. patient does have significant swelling and stasis dermatitis of bilateral lower ext with erythema. has multiple ulcerated diabetic foot ulcer on the feet bilaterally with no bone visible and no tunneling. there is no surrounding erythema and no purulence. Im not sure at this point what causing her persistent fever. get blood cultures x 2check procalcitonincheck inflammatory markers repeat CXR may need CT lower extremities bilaterally to rule out other issues d/c ertapenem start zosyn again to cover enterococcus may add levaquin will not start vancomycin yet adequate glucose control
[2017-11-13] MEDS: Ketoconazole 2% CRM 15 GM TUBE TP SCH (11:28)
[2017-11-13] MEDS: Gentamicin Oint 15 GM TUBE TP SCH ×2 (11:28→22:34)
[2017-11-13 12:39] LABS: Adenovirus Not Detected (Not Detect); Bordetella Pertussis Not Detected (Not Detect); Chlamydophila pneumoniae Not Detected (Not Detect); Coronavirus 229E Not Detected (Not Detect); Coronavirus HKU1 Not Detected (Not Detect); Coronavirus NL63 Not Detected (Not Detect); Coronavirus OC43 Not Detected (Not Detect); Human Metapneumovirus Not Detected (Not Detect); Human Rhinovirus/Enterovirus Not Detected (Not Detect); Influenza A Subtype 2009 H1 Not Detected (Not Detect); Influenza A Untypeable Not Detected (Not Detect); Influenza B Not Detected (Not Detect); Mycoplasma pneumoniae Not Detected (Not Detect); Parainfluenza Virus 1 Not Detected (Not Detect); Parainfluenza Virus 2 Not Detected (Not Detect); Parainfluenza Virus 3 Not Detected (Not Detect); Parainfluenza Virus 4 Not Detected (Not Detect); Respiratory Syncytial Virus Not Detected (Not Detect)
[2017-11-13] MEDS: tiZANidine 4 MG TABLET PO PRN (13:56)
[2017-11-13] MEDS: Piperacillin/Tazobactam 3.375 GM in 0.9 % Sodium Chloride Mini Bag 100 ML IVPB SCH (18:29)
[2017-11-13] MEDS: Latanoprost 2.5 ML BOTTLE BOTH EYES SCH (22:34)
[2017-11-14] MEDS: Piperacillin/Tazobactam 3.375 GM in 0.9 % Sodium Chloride Mini Bag 100 ML IVPB SCH ×2 (00:23→09:24)
--- NOTE | 2017-11-14 05:09 | Electrocardiograph Report ---
[address] [address] Test Date: 2017-11-10 Pat Name: Pauly Magallanes Department: 104 Room: 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
[2017-11-14] MEDS: *HR* Enoxaparin 40 MG/0.4 ML SYRINGE SQ SCH (06:05)
--- NOTE | 2017-11-14 07:20 | Internal Med Progress Note ---
<Blanco Nelson - Last Filed: 11/14/17 08:35> Date of Encounter: 11/14/17 Time of Encounter: 07:20 - Assessment and plan (1) Bilateral lower leg cellulitis Current Visit: Yes Status: Suspected Assessment and plan: Patient with multiple wounds and h/o multiple drug-resistant organisms on cultures in the past. Patient is afebrile, ESR > 130, CRP 74 Podiatry following, performed bedside debridement, appreciate recommendations Wound cultures are positive for Enterococcus, Citrobacter freundii, and Serratia marcescens Continue Zosyn (Day 3). Consider adding Cipro, defer to ID Appreciate ID recommendations (2) Acute on chronic diastolic heart failure Current Visit: Yes Status: Acute Assessment and plan: Exam is consistent with CHF, predominantly right sided with marked lower extremity edema. Echo reveals EF 55-60% with concentric LVH Continue Coreg, will likely need to uptitrate this over time. She lists lisinopril as an allergy and we will need to clarify this as Cl inhibitors can have significant benefit in patients with diabetes and hypertension, CHF Continue lasix 40 mg IV BID. CXR 11/13/17 revealed findings most compatible with CHF with mild edema and small left pleural effusion. Fluid balance: -[id number] Monitor strict I&Os and daily weights. Continue home medications. (3) Venous stasis dermatitis of both lower extremities Current Visit: Yes Status: Chronic Assessment and plan: Chronic venous stasis changes of bilateral lower extremities Wound care consulted She is followed by Dr. Stoll in podiatry (4) HTN (hypertension) Current Visit: No Status: Chronic Assessment and plan: Continue Coreg, will likely need to uptitrate this over time. She lists lisinopril as an allergy and we will need to clarify this as Cl inhibitors can have significant benefit in patients with diabetes and hypertension, CHF Continue Lasix 40 mg IV BID. Continue monitoring Qualifiers: Hypertension type: essential hypertension Qualified Code(s): I10 - Essential (primary) hypertension (5) HLD (hyperlipidemia) Current Visit: Yes Status: Chronic Assessment and plan: Continue home medications. Qualifiers: Hyperlipidemia type: mixed hyperlipidemia Qualified Code(s): E78.2 - Mixed hyperlipidemia (6) Type 2 diabetes mellitus Current Visit: Yes Status: Chronic Assessment and plan: Poorly controlled DM type 2 HGB A1C 11.1 Hold home lantus and short-acting insulin. Continue accuchecks and moderate dose SSI QID AC/HS. 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 (8) DVT prophylaxis Current Visit: Yes Status: Acute Assessment and plan: Lovenox 40 mg SQ QD. (9) REGINALD on CPAP Current Visit: Yes Status: Acute Assessment and plan: Continue CPAP at night - Time Spent With Patient Total time spent is greater than 50% in coordination of care (as documented) at patient's floor/unit and/or counseling patient: - Subjective Interval history: Patient seen and examined resting comfortably in bed. She reports that she wants to go home today. Patient as afebrile last PM and blood glucose levels have been between 74-93. Nursing reports patient soiled herself x3 without asking to get out of bed. Morning labs are pending. ID following - Constitutional Vitals: Temp Pulse Resp BP Pulse Ox 98.8 F 76 20 114/72 94 11/14/17 07:01 11/14/17 07:01 11/14/17 07:01 11/14/17 07:01 11/14/17 07:01 General appearance: Present: cooperative, A&O X 3, morbidly obese, pleasant, no acute distress, answers questions appropriately - Head Head exam: Present: atraumatic, normocephalic - Eye Eye exam: Present: PERRL, conjuntiva pink, sclera anicteric Pupils: Present: PERRL - ENT ENT exam: Present: mucous membranes moist, normal oropharynx - Neck Neck exam general surgery: Present: supple, trachea midline. Absent: lymphadenopathy - Respiratory Respiratory exam: Present: CTAB. Absent: accessory muscle use, rales, rhonchi, wheezes - Cardiovascular Cardiovascular exam: Present: RRR, +S1, +S2. Absent: diastolic murmur, gallop, rubs, systolic murmur - GI/Abdominal GI/Abdominal exam: Present: normal bowel sounds, soft, no peritoneal signs. Absent: distended, tenderness - Extremities Exam Extremities exam: Present: normal capillary refill, pedal edema (erythema in left leg is much more red than her right, and she has erythema extending all the way from the calf to the middle thigh concerning for cellulitis), warm, radial pulses palpable and symmetrical. Absent: calf tenderness, cyanotic - Neurological Exam Neurological exam: Present: CN II-XII intact, oriented X3, no focal deficits. Absent: pronater drift, facial droop, speech deficit - Psychiatric Psychiatric exam: Present: flat affect, normal mood - Skin Skin exam: Present: dry, erythema (erythema in left leg is much more red than her right, and she has erythema extending all the way from the calf to the middle thigh concerning for cellulitis), intact, warm Internal Medicine: Result - Labs CBC & Chem 7: 11/13/17 01:13 11/13/17 01:13 - ABG Interpretation ABG results: PT/INR, D-dimer PT 13.1 Seconds (9.4-12.1) H 11/12/17 01:52 - Pulse Oximetry Interpretation Digit-Finger Pulse Oximetry Readin (2L O2 via NC) - Impressions Impressions Chest X-Ray 11/13/17 14:33 IMPRESSION: Findings most compatible with CHF with mild edema and small left pleural effusion. D/ / Ignacio De La Vega MD / Ignacio De La Vega MD Interpreting Provider: Ignacio De La Vega MD Consult Discharge Plan - Plan Referrals: Jc Tsai MD [Primary Care Provider] - <Catrachito Ambrocio - Last Filed: 11/14/17 14:59> Date of Encounter: 11/14/17 - Assessment and plan (1) DVT prophylaxis Current Visit: Yes Status: Acute (2) Morbid obesity Current Visit: Yes Status: Chronic (3) HTN (hypertension) Current Visit: No Status: Chronic Qualifiers: Hypertension type: essential hypertension Qualified Code(s): I10 - Essential (primary) hypertension (4) HLD (hyperlipidemia) Current Visit: Yes Status: Chronic Qualifiers: Hyperlipidemia type: mixed hyperlipidemia Qualified Code(s): E78.2 - Mixed hyperlipidemia (5) Venous stasis dermatitis of both lower extremities Current Visit: Yes Status: Chronic (6) Type 2 diabetes mellitus Current Visit: Yes Status: Chronic Qualifiers: Diabetes mellitus mcc insulin use: with terminal worker use Diabetes mellitus complication status: with skin complications Diabetes mellitus complication detail: with dermatitis Qualified Code(s): E11.620 - Type 2 diabetes mellitus with diabetic dermatitis; Z79.4 - senior care (current) use of insulin; Z79.4 - local intermodal truck driver (current) use of insulin; Z79.4 - local intermodal truck driver (current ) use of insulin; Z79.4 - senior care (current) use of insulin (7) Bilateral lower leg cellulitis Current Visit: Yes Status: Suspected (8) Acute on chronic diastolic heart failure Current Visit: Yes Status: Acute (9) REGINALD on CPAP Current Visit: Yes Status: Acute - Time Spent With Patient Total time spent is greater than 50% in coordination of care (as documented) at patient's floor/unit and/or counseling patient: - Constitutional Vitals: Temp Pulse Resp BP Pulse Ox 97.8 F 80 22 133/84 95 11/14/17 10:30 11/14/17 10:30 11/14/17 10:30 11/14/17 10:30 11/14/17 10:30 Internal Medicine: Result - Labs CBC & Chem 7: 11/14/17 08:52 11/14/17 08:52 Labs: Short CBC 11/14/17 Range/Units 08:52 WBC 15.5 H (4.3-11.1) K/mcL Hgb 11.4 L (11.5-15.4) g/dL Hct 36.3 (35.3-44.9) % Plt Count 242 (140-400) K/mcL Neutrophils # 11.2 H (1.6-8.9) K/mcL BMP 11/14/17 08:52 Sodium 140 Potassium 5.4 H Chloride 102 Carbon Dioxide 29 BUN 46 H Creatinine 1.40 H Glucose 77 Calcium 8.2 L - ABG Interpretation ABG results: PT/INR, D-dimer PT 13.1 Seconds (9.4-12.1) H 11/12/17 01:52 - Impressions Impressions Chest X-Ray 11/13/17 14:33 IMPRESSION: Findings most compatible with CHF with mild edema and small left pleural effusion. D/ / Ignacio De La Vega MD / Ignacio De La Vega MD Interpreting Provider: Ignacio De La Vega MD - Attending Attestation acute diastolic CHF exacerbation hold lasix due to ARF bilateral lower extremities cellulitis/ulcers Hx of ESBL, cutures growing enterococcus, Citrobacter and Serratia ID recommending Levaquin and Ampicillin CT of lower extremities Podiatry consulted I examined this patient and my medical decision-making was reviewed with the Resident Physician. I agree with the documented findings, disposition and treatment plan as described except to the extent set forth below.
[2017-11-14 09:06] LABS: Basophils # 0.1 K/mcL (0.0-0.2); Basophils % 0.5 %; Eosinophils # 0.3 K/mcL (0.0-0.6); Eosinophils % 1.7 %; Hematocrit 36.3 % (35.3-44.9); Hemoglobin 11.4 g/dL (11.5-15.4); Immature Granulocytes % 1.6 % (0-4); Lymphocytes # 2.6 K/mcL (0.6-4.6); Lymphocytes % 16.9 %; Mean Corpuscular HGB Conc 31.4 g/dL (31.6-35.5); Mean Corpuscular Hemoglobin 25.2 pg (28.0-33.3); Mean Corpuscular Volume 80.3 fL (83.0-100.0); Mean Platelet Volume 13.3 fL (9.4-12.4); Monocytes % 6.6 %; Neutrophils # 11.2 K/mcL (1.6-8.9); Nucleated Red Blood Cells 0.3 /100 WBC (0); Platelet Count 242 K/mcL (140-400); Red Blood Count 4.52 M/mcL (3.82-4.97); Segmented Neutrophils % 72.7 %
[2017-11-14] MEDS: Insulin LISPRO 300 UNITS/3 ML VIAL SQ SCH ×4 (09:19→21:34)
[2017-11-14] MEDS: Furosemide 40 MG/4 ML VIAL IVP SCH (09:23)
[2017-11-14 09:25] LABS: Calcium 8.2 mg/dL (8.6-10.3); Potassium 5.4 mEq/L (3.5-5.1)
[2017-11-14] MEDS: Fluticasone Propionate Nasal 50 MCG/SPRAY BOTTLE NS SCH (09:36)
[2017-11-14] MEDS: Diltiazem SR (12hr) 60 MG CAPSULE PO SCH (09:36)
[2017-11-14] MEDS: Pregabalin 75 MG CAPSULE PO SCH ×2 (09:36→21:35)
[2017-11-14] MEDS: Ketoconazole 2% CRM 15 GM TUBE TP SCH (09:37)
[2017-11-14] MEDS: Ascorbic Acid 500 MG TABLET PO SCH ×2 (09:37→21:35)
[2017-11-14] MEDS: Benzonatate 100 MG CAPSULE PO SCH ×3 (09:37→21:35)
[2017-11-14] MEDS: Insulin DETEMIR 100 UNIT/ML X5UNITS SQ SCH ×2 (10:28→21:35)
--- NOTE | 2017-11-14 10:45 | Infectious Disease Progress No ---
Date of Encounter: 11/14/17 Time of Encounter: 10:43 - Assessment and Plan (1) Sepsis Current Visit: No Status: Resolved fever, tachycardia, WBC 14.6. 11/13 Chest x-ray consistent with vascular congestion, cardiomegaly source of infection likely secondary to lower extremity cellulitis. In the past she has had blood cultures positive for Klebsiella ESBL, providentia stuartii, enterococcous faecalis. 11/10/17 preliminary blood cultures negative. 11/12 prelim wound culture: enterococcous 11/11 left foot wound culture: citrobacter freundii, Serratia Marcescens, Enterococcous. RIP: negative Creatinine clearance: 72 ESR: >130 CRP: 74 Plan: received one dose vancomycin received 2 days Ertapenem- stop 11/13 zosyn day 3 repeat blood cultures pending final wound cultures pending procalcitonin pending consider bilateral lower extremity CT Qualifiers: Sepsis type: sepsis due to unspecified organism Qualified Code(s): A41.9 - Sepsis, unspecified organism (2) Bilateral lower leg cellulitis Current Visit: Yes Status: Suspected Plan as above (3) Acute on chronic diastolic heart failure Current Visit: Yes Status: Acute Echocardiogram from 11/11/17 shows EF 55-60%, normal LV chamber size and function , mild concentric LVH Management per primary team (4) HTN (hypertension) Current Visit: No Status: Chronic Qualifiers: Hypertension type: essential hypertension Qualified Code(s): I10 - Essential (primary) hypertension (5) HLD (hyperlipidemia) Current Visit: Yes Status: Chronic Qualifiers: Hyperlipidemia type: mixed hyperlipidemia Qualified Code(s): E78.2 - Mixed hyperlipidemia (6) Type 2 diabetes mellitus Current Visit: Yes Status: Chronic Per primary team Qualifiers: Diabetes mellitus intermediate project manager insulin use: with longterm use Diabetes mellitus complication status: with skin complications Diabetes mellitus complication detail: with dermatitis Qualified Code(s): E11.620 - Type 2 diabetes mellitus with diabetic dermatitis; Z79.4 - nursing home (current) use of insulin; Z79.4 - intermediate project manager (current) use of insulin; Z79.4 - intermediate project manager (current ) use of insulin; Z79.4 - nursing home (current) use of insulin (7) Morbid obesity Current Visit: Yes Status: Chronic (8) REGINALD on CPAP Current Visit: Yes Status: Acute - Subjective Interval history: 57-year-old female evaluated at bedside. Patient denies nausea, vomiting, diarrhea, fever, chills, chest pain, shortness of breath. Infect Dis PN-Objective Data - Labs CBC & Chem 7: 11/14/17 08:52 11/14/17 08:52 Labs: Laboratory Results - last 24 hr 11/13/17 11/13/17 11/13/17 07:02 11:30 11:44 WBC RBC Hgb Hct MCV MCH MCHC RDW Plt Count MPV Immature Gran % Seg Neutrophils % Lymphocytes % Monocytes % Eosinophils % Basophils % Neutrophils # Lymphocytes # Monocytes # Eosinophils # Basophils # Nucleated RBCs/100 WBC ESR Sodium Potassium Chloride Carbon Dioxide BUN Creatinine Est GFR ( Amer) Est GFR (Non-Af Amer) BUN/Creatinine Ratio Glucose POC Glucose 93 85 Calculated Osmolality Calcium C-Reactive Protein Chlamy pneumoniae PCR Not Detected Adenovirus (PCR) Not Detected B. pertussis DNA (PCR) Not Detected B.parapertussis DNA PCR Not Detected Coronavirus OC43 (PCR) Not Detected Coronavirus HKU1 (PCR) Not Detected Coronavirus 229E (PCR) Not Detected Coronavirus NL63 (PCR) Not Detected Human Metapneumovir PCR Not Detected Influenza A (H1) PCR Not Detected Influ A (H1N1/09) PCR Not Detected Influenza A (H3) PCR Not Detected Influenza A Untype (PCR) Not Detected Influenza Type B (PCR) Not Detected M.pneumoniae DNA (PCR) Not Detected Parainfluenza 1 (PCR) Not Detected Parainfluenza 2 (PCR) Not Detected Parainfluenza 3 (PCR) Not Detected Parainfluenza 4 (PCR) Not Detected RSV (PCR) Not Detected Entero/Rhino (PCR) Not Detected 11/13/17 11/13/17 11/13/17 16:22 20:16 20:21 WBC RBC Hgb Hct MCV MCH MCHC RDW Plt Count MPV Immature Gran % Seg Neutrophils % Lymphocytes % Monocytes % Eosinophils % Basophils % Neutrophils # Lymphocytes # Monocytes # Eosinophils # Basophils # Nucleated RBCs/100 WBC ESR Sodium Potassium Chloride Carbon Dioxide BUN Creatinine Est GFR ( Amer) Est GFR (Non-Af Amer) BUN/Creatinine Ratio Glucose POC Glucose 83 53 L 74 Calculated Osmolality Calcium C-Reactive Protein Chlamy pneumoniae PCR Adenovirus (PCR) B. pertussis DNA (PCR) B.parapertussis DNA PCR Coronavirus OC43 (PCR) Coronavirus HKU1 (PCR) Coronavirus 229E (PCR) Coronavirus NL63 (PCR) Human Metapneumovir PCR Influenza A (H1) PCR Influ A (H1N1/09) PCR Influenza A (H3) PCR Influenza A Untype (PCR) Influenza Type B (PCR) M.pneumoniae DNA (PCR) Parainfluenza 1 (PCR) Parainfluenza 2 (PCR) Parainfluenza 3 (PCR) Parainfluenza 4 (PCR) RSV (PCR) Entero/Rhino (PCR) 11/14/17 11/14/17 11/14/17 00:44 00:44 08:52 WBC 15.5 H RBC 4.52 Hgb 11.4 L Hct 36.3 MCV 80.3 L MCH 25.2 L MCHC 31.4 L RDW 15.0 H Plt Count 242 MPV 13.3 H Immature Gran % 1.6 Seg Neutrophils % 72.7 Lymphocytes % 16.9 Monocytes % 6.6 Eosinophils % 1.7 Basophils % 0.5 Neutrophils # 11.2 H Lymphocytes # 2.6 Monocytes # 1.0 Eosinophils # 0.3 Basophils # 0.1 Nucleated RBCs/100 WBC 0.3 H ESR >= 130 H Sodium Potassium Chloride Carbon Dioxide BUN Creatinine Est GFR ( Amer) Est GFR (Non-Af Amer) BUN/Creatinine Ratio Glucose POC Glucose Calculated Osmolality Calcium C-Reactive Protein 74 H Chlamy pneumoniae PCR Adenovirus (PCR) B. pertussis DNA (PCR) B.parapertussis DNA PCR Coronavirus OC43 (PCR) Coronavirus HKU1 (PCR) Coronavirus 229E (PCR) Coronavirus NL63 (PCR) Human Metapneumovir PCR Influenza A (H1) PCR Influ A (H1N1/09) PCR Influenza A (H3) PCR Influenza A Untype (PCR) Influenza Type B (PCR) M.pneumoniae DNA (PCR) Parainfluenza 1 (PCR) Parainfluenza 2 (PCR) Parainfluenza 3 (PCR) Parainfluenza 4 (PCR) RSV (PCR) Entero/Rhino (PCR) 11/14/17 08:52 WBC RBC Hgb Hct MCV MCH MCHC RDW Plt Count MPV Immature Gran % Seg Neutrophils % Lymphocytes % Monocytes % Eosinophils % Basophils % Neutrophils # Lymphocytes # Monocytes # Eosinophils # Basophils # Nucleated RBCs/100 WBC ESR Sodium 140 Potassium 5.4 H Chloride 102 Carbon Dioxide 29 BUN 46 H Creatinine 1.40 H Est GFR ( Amer) 47 L Est GFR (Non-Af Amer) 39 L BUN/Creatinine Ratio 33 H Glucose 77 POC Glucose Calculated Osmolality 301 H Calcium 8.2 L C-Reactive Protein Chlamy pneumoniae PCR Adenovirus (PCR) B. pertussis DNA (PCR) B.parapertussis DNA PCR Coronavirus OC43 (PCR) Coronavirus HKU1 (PCR) Coronavirus 229E (PCR) Coronavirus NL63 (PCR) Human Metapneumovir PCR Influenza A (H1) PCR Influ A (H1N1/09) PCR Influenza A (H3) PCR Influenza A Untype (PCR) Influenza Type B (PCR) M.pneumoniae DNA (PCR) Parainfluenza 1 (PCR) Parainfluenza 2 (PCR) Parainfluenza 3 (PCR) Parainfluenza 4 (PCR) RSV (PCR) Entero/Rhino (PCR) Cultures: Cultures 11/11/17 14:25 Wound Culture - Final Left Foot Citrobacter freundii Serratia marcescens Enterococcus species 11/12/17 09:16 Wound Culture - Preliminary Other-Specify in Comments Enterococcus species Serology 11/13/17 Range/Units 11:30 Chlamy pneumoniae PCR Not Detected (Not Detect) Adenovirus (PCR) Not Detected (Not Detect) B. pertussis DNA (PCR) Not Detected (Not Detect) B.parapertussis DNA PCR Not Detected (Not Detect) Coronavirus OC43 (PCR) Not Detected (Not Detect) Coronavirus HKU1 (PCR) Not Detected (Not Detect) Coronavirus 229E (PCR) Not Detected (Not Detect) Coronavirus NL63 (PCR) Not Detected (Not Detect) Human Metapneumovir PCR Not Detected (Not Detect) Influenza A (H1) PCR Not Detected (Not Detect) Influ A (H1N1/09) PCR Not Detected (Not Detect) Influenza A (H3) PCR Not Detected (Not Detect) Influenza A Untype (PCR) Not Detected (Not Detect) Influenza Type B (PCR) Not Detected (Not Detect) M.pneumoniae DNA (PCR) Not Detected (Not Detect) Parainfluenza 1 (PCR) Not Detected (Not Detect) Parainfluenza 2 (PCR) Not Detected (Not Detect) Parainfluenza 3 (PCR) Not Detected (Not Detect) Parainfluenza 4 (PCR) Not Detected (Not Detect) RSV (PCR) Not Detected (Not Detect) Entero/Rhino (PCR) Not Detected (Not Detect) - Impressions Impressions Chest X-Ray 11/13/17 14:33 IMPRESSION: Findings most compatible with CHF with mild edema and small left pleural effusion. D/ / Ignacio De La Vega MD / Ignacio De La Vega MD Interpreting Provider: Ignacio De La Vega MD Exam - Constitutional Vitals: Temp Pulse Resp BP Pulse Ox 97.8 F 80 22 133/84 95 11/14/17 10:30 11/14/17 10:30 11/14/17 10:30 11/14/17 10:30 11/14/17 10:30 General appearance: morbidly obese, no acute distress - Eye Additional comments: Right eye ptosis present. - Respiratory Respiratory exam: Present: decreased breath sounds - Cardiovascular Cardiovascular exam: Present: RRR, +S1, +S2 - GI/Abdominal GI/Abdominal exam: Present: distended, normal bowel sounds, soft. Absent: tenderness - Extremities Exam Additional comments: Bilateral lower extremity fee wrapped. Bilateral calves are extremely erythematous, warm, non-pitting edema present. - Neurological Exam Neurological exam: Present: alert, oriented X3 Consult Discharge Plan - Plan Referrals: Jc Tsai MD [Primary Care Provider] - - Attending Attestation I examined this patient and my medical decision-making was reviewed with the Resident Physician. I agree with the documented findings, disposition and treatment plan as described except to the extent set forth below.
[2017-11-14] MEDS: *HR* HYDROcodone/Acet 5/325 mg TABLET PO PRN (12:43)
[2017-11-14] MEDS: Levofloxacin 750 MG/150 ML 750 MG/150 ML BAG IVPB SCH (18:17)
[2017-11-14] MEDS: tiZANidine 4 MG TABLET PO PRN (18:17)
[2017-11-14] MEDS: Ampicillin 1,000 MG in 0.9 % Sodium Chloride Mini Bag 100 ML IVPB SCH (18:18)
[2017-11-14] MEDS: Gentamicin Oint 15 GM TUBE TP SCH ×2 (18:19→18:20)
[2017-11-14] MEDS: Latanoprost 2.5 ML BOTTLE BOTH EYES SCH (21:35)
[2017-11-15] MEDS: Ampicillin 1,000 MG in 0.9 % Sodium Chloride Mini Bag 100 ML IVPB SCH ×3 (01:00→11:38)
[2017-11-15 01:36] LABS: Basophils # 0.1 K/mcL (0.0-0.2); Basophils % 0.4 %; Eosinophils # 0.3 K/mcL (0.0-0.6); Eosinophils % 2.5 %; Hematocrit 31.6 % (35.3-44.9); Immature Granulocytes % 0.6 % (0-4); Lymphocytes # 2.1 K/mcL (0.6-4.6); Lymphocytes % 16.4 %; Mean Corpuscular HGB Conc 30.4 g/dL (31.6-35.5); Mean Corpuscular Hemoglobin 24.7 pg (28.0-33.3); Mean Corpuscular Volume 81.2 fL (83.0-100.0); Mean Platelet Volume 12.8 fL (9.4-12.4); Monocytes # 0.7 K/mcL (0.0-1.3); Monocytes % 5.3 %; Neutrophils # 9.7 K/mcL (1.6-8.9); Platelet Count 214 K/mcL (140-400); Red Blood Count 3.89 M/mcL (3.82-4.97); Red Cell Distribution Width 15.2 % (11.5-14.5); Segmented Neutrophils % 74.8 %
[2017-11-15 01:44] LABS: Hemoglobin 9.6 g/dL (11.5-15.4)
[2017-11-15 01:45] LABS: Calcium 7.8 mg/dL (8.6-10.3); Magnesium 1.9 mg/dL (1.6-2.6); Potassium 4.2 mEq/L (3.5-5.1)
[2017-11-15] MEDS: *HR* Enoxaparin 40 MG/0.4 ML SYRINGE SQ SCH (06:16)
[2017-11-15] MEDS: Insulin LISPRO 300 UNITS/3 ML VIAL SQ SCH ×3 (07:20→16:47)
[2017-11-15] MEDS: Insulin DETEMIR 100 UNIT/ML X5UNITS SQ SCH (07:23)
[2017-11-15] MEDS: Diltiazem SR (12hr) 60 MG CAPSULE PO SCH (07:52)
[2017-11-15] MEDS: Ascorbic Acid 500 MG TABLET PO SCH (07:53)
[2017-11-15] MEDS: Levofloxacin 750 MG/150 ML 750 MG/150 ML BAG IVPB SCH (07:53)
[2017-11-15] MEDS: Benzonatate 100 MG CAPSULE PO SCH ×2 (07:53→16:49)
[2017-11-15] MEDS: Pregabalin 75 MG CAPSULE PO SCH (07:53)
[2017-11-15] MEDS: Fluticasone Propionate Nasal 50 MCG/SPRAY BOTTLE NS SCH (07:54)
--- NOTE | 2017-11-15 09:23 | Internal Med Progress Note ---
<Blanco Nelson - Last Filed: 11/15/17 10:52> Date of Encounter: 11/15/17 Time of Encounter: 09:19 - Assessment and plan (1) Bilateral lower leg cellulitis Current Visit: Yes Status: Suspected Assessment and plan: Patient with multiple wounds and h/o multiple drug-resistant organisms on cultures in the past. Patient had temp 99.7F overnight, ESR > 130, CRP 74 CT legs revealed acute minimally displaced extra-articular left 5th metatarsal base fracture, Diffuse subcutaneous fat stranding and skin thickening in the bilateral lower extremities compatible with cellulitis versus lymphedema. No drainable fluid collection. Podiatry following, performed bedside debridement, appreciate recommendations Wound cultures are positive for Enterococcus, Citrobacter freundii, and Serratia marcescens Ampicillin and Levaquin (day 2) Consider switching from IV to PO dosing, defer to ID Appreciate ID recommendations, d/c planning once cleared by ID Will need outpatient follow up (2) Acute on chronic diastolic heart failure Current Visit: Yes Status: Acute Assessment and plan: Exam is consistent with CHF, predominantly right sided with marked lower extremity edema. Echo reveals EF 55-60% with concentric LVH Continue Coreg, will likely need to uptitrate this over time. She lists lisinopril as an allergy and we will need to clarify this as Cl inhibitors can have significant benefit in patients with diabetes and hypertension, CHF Lasix held due to DOROTHEA. CXR 11/13/17 revealed findings most compatible with CHF with mild edema and small left pleural effusion. Fluid balance: -[id number] Monitor strict I&Os and daily weights. Continue home medications. (3) Venous stasis dermatitis of both lower extremities Current Visit: Yes Status: Chronic Assessment and plan: Chronic venous stasis changes of bilateral lower extremities Wound care consulted She is followed by Dr. Stoll in podiatry (4) HTN (hypertension) Current Visit: No Status: Chronic Assessment and plan: Continue Coreg, will likely need to uptitrate this over time. She lists lisinopril as an allergy and we will need to clarify this as Cl inhibitors can have significant benefit in patients with diabetes and hypertension, CHF Lasix held due to DOROTHEA. Continue monitoring Qualifiers: Hypertension type: essential hypertension Qualified Code(s): I10 - Essential (primary) hypertension (5) HLD (hyperlipidemia) Current Visit: Yes Status: Chronic Assessment and plan: Continue home medications. Qualifiers: Hyperlipidemia type: mixed hyperlipidemia Qualified Code(s): E78.2 - Mixed hyperlipidemia (6) Type 2 diabetes mellitus Current Visit: Yes Status: Chronic Assessment and plan: Poorly controlled DM type 2 HGB A1C 11.1 Hold home lantus and short-acting insulin. Continue accuchecks and moderate dose SSI QID AC/HS. 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 (8) DVT prophylaxis Current Visit: Yes Status: Acute Assessment and plan: Lovenox 40 mg SQ QD. (9) REGINALD on CPAP Current Visit: Yes Status: Acute Assessment and plan: Continue CPAP at night - Time Spent With Patient Total time spent is greater than 50% in coordination of care (as documented) at patient's floor/unit and/or counseling patient: - Subjective Interval history: Patient seen and examined resting comfortably in bed. She reports that she wants to go home. She has a low grade fever last PM and blood glucose level was 67 this AM. Patient soiled herself again this AM. ID following. - Constitutional Vitals: Temp Pulse Resp BP Pulse Ox 99.7 F H 81 16 118/63 94 11/15/17 07:15 11/15/17 07:15 11/15/17 07:15 11/15/17 07:15 11/15/17 07:15 General appearance: Present: cooperative, A&O X 3, morbidly obese, pleasant, no acute distress, answers questions appropriately - Head Head exam: Present: atraumatic, normocephalic - Eye Eye exam: Present: PERRL, conjuntiva pink, sclera anicteric Pupils: Present: PERRL - ENT ENT exam: Present: mucous membranes moist, normal oropharynx - Neck Neck exam general surgery: Present: supple, trachea midline. Absent: lymphadenopathy - Respiratory Respiratory exam: Present: decreased breath sounds (poor resp effort). Absent: accessory muscle use, rales, respiratory distress, rhonchi, wheezes - Cardiovascular Cardiovascular exam: Present: RRR, +S1, +S2. Absent: diastolic murmur, gallop, rubs, systolic murmur - GI/Abdominal GI/Abdominal exam: Present: normal bowel sounds, soft, no peritoneal signs. Absent: distended, tenderness Additional comments: obese - Extremities Exam Extremities exam: Present: normal capillary refill, pedal edema (2+), warm, radial pulses palpable and symmetrical. Absent: calf tenderness, cyanotic - Back Exam Back exam: Present: normal inspection. Absent: tenderness - Neurological Exam Neurological exam: Present: CN II-XII intact, oriented X3, no focal deficits. Absent: pronater drift, facial droop, speech deficit - Psychiatric Psychiatric exam: Present: flat affect, normal mood - Skin Skin exam: Present: dry, erythema (erythema in left leg is much more red than her right, and she has erythema extending all the way from the calf to the middle thigh concerning for cellulitis), intact, warm. Absent: vesicles Internal Medicine: Result - Labs CBC & Chem 7: 11/15/17 01:00 11/15/17 01:00 Labs: Short CBC 11/15/17 Range/Units 01:00 WBC 12.9 H (4.3-11.1) K/mcL Hgb 9.6 L D (11.5-15.4) g/dL Hct 31.6 L (35.3-44.9) % Plt Count 214 (140-400) K/mcL Neutrophils # 9.7 H (1.6-8.9) K/mcL BMP 11/14/17 11/15/17 08:52 01:00 Sodium 140 141 Potassium 5.4 H 4.2 Chloride 102 102 Carbon Dioxide 29 31 H BUN 46 H 48 H Creatinine 1.40 H 1.34 H Glucose 77 100 Calcium 8.2 L 7.8 L - ABG Interpretation ABG results: PT/INR, D-dimer PT 13.1 Seconds (9.4-12.1) H 11/12/17 01:52 - Pulse Oximetry Interpretation Digit-Finger Pulse Oximetry Readin (2L O2 via NC) - Impressions Impressions Lower Extremity CT 11/14/17 17:00 IMPRESSION: 1. Diffuse subcutaneous fat stranding and skin thickening in the bilateral lower extremities compatible with cellulitis versus lymphedema. No drainable fluid collection. 2. Acute minimally displaced extra-articular left 5th metatarsal base fracture. D/ / Elton Lozano MD / Elton Lozano MD Interpreting Provider: Elton Lozano MD Lower Extremity CT 11/14/17 17:00 IMPRESSION: 1. Diffuse subcutaneous fat stranding and skin thickening in the bilateral lower extremities compatible with cellulitis versus lymphedema. No drainable fluid collection. 2. Acute minimally displaced extra-articular left 5th metatarsal base fracture. D/ / Elton Lozano MD / Elton Lozano MD Interpreting Provider: Elton Lozano MD Consult Discharge Plan - Plan Referrals: Jc Tsai MD [Primary Care Provider] - <Catrachito Ambrocio H - Last Filed: 11/15/17 14:08> Date of Encounter: 11/15/17 - Assessment and plan (1) DVT prophylaxis Current Visit: Yes Status: Acute (2) Morbid obesity Current Visit: Yes Status: Chronic (3) HTN (hypertension) Current Visit: No Status: Chronic Qualifiers: Hypertension type: essential hypertension Qualified Code(s): I10 - Essential (primary) hypertension (4) HLD (hyperlipidemia) Current Visit: Yes Status: Chronic Qualifiers: Hyperlipidemia type: mixed hyperlipidemia Qualified Code(s): E78.2 - Mixed hyperlipidemia (5) Venous stasis dermatitis of both lower extremities Current Visit: Yes Status: Chronic (6) Type 2 diabetes mellitus Current Visit: Yes Status: Chronic Qualifiers: Diabetes mellitus detention insulin use: with detention use Diabetes mellitus complication status: with skin complications Diabetes mellitus complication detail: with dermatitis Qualified Code(s): E11.620 - Type 2 diabetes mellitus with diabetic dermatitis; Z79.4 - computer terminal operator (current) use of insulin; Z79.4 - MCFP (current) use of insulin; Z79.4 - MCFP (current ) use of insulin; Z79.4 - computer terminal operator (current) use of insulin (7) Bilateral lower leg cellulitis Current Visit: Yes Status: Suspected (8) Acute on chronic diastolic heart failure Current Visit: Yes Status: Acute (9) REGINALD on CPAP Current Visit: Yes Status: Acute - Time Spent With Patient Total time spent is greater than 50% in coordination of care (as documented) at patient's floor/unit and/or counseling patient: - Constitutional Vitals: Temp Pulse Resp BP Pulse Ox 98.7 F 80 16 124/71 96 11/15/17 11:05 11/15/17 11:05 11/15/17 11:05 11/15/17 11:05 11/15/17 11:05 Internal Medicine: Result - Labs CBC & Chem 7: 11/15/17 01:00 11/15/17 01:00 Labs: Short CBC 11/15/17 Range/Units 01:00 WBC 12.9 H (4.3-11.1) K/mcL Hgb 9.6 L D (11.5-15.4) g/dL Hct 31.6 L (35.3-44.9) % Plt Count 214 (140-400) K/mcL Neutrophils # 9.7 H (1.6-8.9) K/mcL BMP 11/15/17 01:00 Sodium 141 Potassium 4.2 Chloride 102 Carbon Dioxide 31 H BUN 48 H Creatinine 1.34 H Glucose 100 Calcium 7.8 L - ABG Interpretation ABG results: PT/INR, D-dimer PT 13.1 Seconds (9.4-12.1) H 11/12/17 01:52 - Impressions Impressions Lower Extremity CT 11/14/17 17:00 IMPRESSION: 1. Diffuse subcutaneous fat stranding and skin thickening in the bilateral lower extremities compatible with cellulitis versus lymphedema. No drainable fluid collection. 2. Acute minimally displaced extra-articular left 5th metatarsal base fracture. D/ / Elton Lozano MD / Elton Lozano MD Interpreting Provider: Elton Lozano MD Lower Extremity CT 11/14/17 17:00 IMPRESSION: 1. Diffuse subcutaneous fat stranding and skin thickening in the bilateral lower extremities compatible with cellulitis versus lymphedema. No drainable fluid collection. 2. Acute minimally displaced extra-articular left 5th metatarsal base fracture. D/ / Elton Lozano MD / Elton Lozano MD Interpreting Provider: Elton Lozano MD - Attending Attestation acute diastolic CHF exacerbation hold lasix due to ARF bilateral lower extremities cellulitis/ulcers Hx of ESBL, cutures growing enterococcus, Citrobacter and Serratia ID recommending Levaquin and Ampicillin consider discharging on both CT of lower extremities showed:1. Diffuse subcutaneous fat stranding and skin thickening in the bilateral lower extremities compatible with cellulitis versus lymphedema. No drainable fluid collection. 2. Acute minimally displaced extra- articular left 5th metatarsal base fracture. Podiatry consulted I examined this patient and my medical decision-making was reviewed with the Resident Physician. I agree with the documented findings, disposition and treatment plan as described except to the extent set forth below.
[2017-11-15] MEDS ORDERED: Insulin DETEMIR 100 UNIT/ML X5UNITS SQ SCH ×3 (09:26→21:00)
[2017-11-15] MEDS: Ketoconazole 2% CRM 15 GM TUBE TP SCH (11:38)
[2017-11-15] MEDS: Gentamicin Oint 15 GM TUBE TP SCH (11:38)
--- NOTE | 2017-11-15 13:15 | Infectious Disease Progress No ---
Date of Encounter: 11/15/17 Time of Encounter: 13:13 - Assessment and Plan (1) Sepsis Status: Resolved fever, tachycardia, WBC 14.6. 11/13 Chest x-ray consistent with vascular congestion, cardiomegaly source of infection likely secondary to lower extremity cellulitis. bilateral lower extremity CT showed diffuse subcutaneous fat stranding skin thickening compatible with cellulitis, no trainable fluid collection. In the past she has had blood cultures positive for Klebsiella ESBL, providentia stuartii, enterococcous faecalis. 11/10/17 preliminary blood cultures negative. 11/12 prelim wound culture: enterococcous 11/11 left foot wound culture: citrobacter freundii, Serratia Marcescens, Enterococcous. 11/12 right wound culture growing enterococcus. Anaerobic cultures negative preliminary. 11/13 blood cultures 08/25 negative preliminary RIP: negative procalcitonin: .15 Creatinine clearance: 72 ESR: >130 CRP: 74 Plan: received one dose vancomycin received 2 days Ertapenem- stop 11/13 received 3 days Zosyn, stopped 11/14 ampicillin day 2 Levaquin day 2 final cultures pending Qualifiers: Sepsis type: sepsis due to unspecified organism Qualified Code(s): A41.9 - Sepsis, unspecified organism (2) Bilateral lower leg cellulitis Status: Suspected Plan as above (3) Acute on chronic diastolic heart failure Status: Acute Echocardiogram from 11/11/17 shows EF 55-60%, normal LV chamber size and function , mild concentric LVH Management per primary team (4) HTN (hypertension) Status: Chronic Qualifiers: Hypertension type: essential hypertension Qualified Code(s): I10 - Essential (primary) hypertension (5) HLD (hyperlipidemia) Status: Chronic Qualifiers: Hyperlipidemia type: mixed hyperlipidemia Qualified Code(s): E78.2 - Mixed hyperlipidemia (6) Type 2 diabetes mellitus Status: Chronic Per primary team Qualifiers: Diabetes mellitus usp insulin use: with terminal operations manager use Diabetes mellitus complication status: with skin complications Diabetes mellitus complication detail: with dermatitis Qualified Code(s): E11.620 - Type 2 diabetes mellitus with diabetic dermatitis; Z79.4 - long-term (current) use of insulin; Z79.4 - long-term (current) use of insulin; Z79.4 - long-term (current ) use of insulin; Z79.4 - terminal operations supervisor (current) use of insulin (7) Morbid obesity Status: Chronic (8) REGINALD on CPAP Status: Chronic - Subjective Interval history: 57-year-old female evaluated at bedside. Patient denies nausea, vomiting, diarrhea, fever, chills, chest pain, shortness of breath. Today she is anxious to go home. Infect Dis PN-Objective Data - Labs CBC & Chem 7: 11/15/17 01:00 11/15/17 01:00 Labs: Laboratory Results - last 24 hr 11/11/17 11/14/17 11/14/17 13:11 03:37 05:49 WBC RBC Hgb Hct MCV MCH MCHC RDW Plt Count MPV Immature Gran % Seg Neutrophils % Lymphocytes % Monocytes % Eosinophils % Basophils % Neutrophils # Lymphocytes # Monocytes # Eosinophils # Basophils # Sodium Potassium Chloride Carbon Dioxide BUN Creatinine Est GFR ( Amer) Est GFR (Non-Af Amer) BUN/Creatinine Ratio Glucose POC Glucose 76 77 Calculated Osmolality Calcium Magnesium Procalcitonin 0.15 H 11/14/17 11/14/17 11/14/17 08:00 11:51 20:56 WBC RBC Hgb Hct MCV MCH MCHC RDW Plt Count MPV Immature Gran % Seg Neutrophils % Lymphocytes % Monocytes % Eosinophils % Basophils % Neutrophils # Lymphocytes # Monocytes # Eosinophils # Basophils # Sodium Potassium Chloride Carbon Dioxide BUN Creatinine Est GFR ( Amer) Est GFR (Non-Af Amer) BUN/Creatinine Ratio Glucose POC Glucose 76 101 H 130 H Calculated Osmolality Calcium Magnesium Procalcitonin 11/15/17 11/15/17 11/15/17 01:00 01:00 07:19 WBC 12.9 H RBC 3.89 Hgb 9.6 L D Hct 31.6 L MCV 81.2 L MCH 24.7 L MCHC 30.4 L RDW 15.2 H Plt Count 214 MPV 12.8 H Immature Gran % 0.6 Seg Neutrophils % 74.8 Lymphocytes % 16.4 Monocytes % 5.3 Eosinophils % 2.5 Basophils % 0.4 Neutrophils # 9.7 H Lymphocytes # 2.1 Monocytes # 0.7 Eosinophils # 0.3 Basophils # 0.1 Sodium 141 Potassium 4.2 Chloride 102 Carbon Dioxide 31 H BUN 48 H Creatinine 1.34 H Est GFR ( Amer) 50 L Est GFR (Non-Af Amer) 41 L BUN/Creatinine Ratio 36 H Glucose 100 POC Glucose 67 L Calculated Osmolality 305 H Calcium 7.8 L Magnesium 1.9 Procalcitonin 11/15/17 11/15/17 09:11 11:07 WBC RBC Hgb Hct MCV MCH MCHC RDW Plt Count MPV Immature Gran % Seg Neutrophils % Lymphocytes % Monocytes % Eosinophils % Basophils % Neutrophils # Lymphocytes # Monocytes # Eosinophils # Basophils # Sodium Potassium Chloride Carbon Dioxide BUN Creatinine Est GFR ( Amer) Est GFR (Non-Af Amer) BUN/Creatinine Ratio Glucose POC Glucose 139 H 83 Calculated Osmolality Calcium Magnesium Procalcitonin Cultures: Cultures 11/12/17 09:16 Anaerobic Culture - Preliminary Right Leg At this time, no anaerobic growth is present. The culture will be finalized after 5 days of incubation. 11/13/17 15:20 Blood Culture - Preliminary Peripheral Venipuncture No growth. 11/13/17 15:20 Blood Culture - Preliminary Peripheral Venipuncture No growth. 11/12/17 09:16 Wound Culture - Final Other-Specify in Comments Enterococcus species 11/11/17 14:25 Wound Culture - Final Left Foot Citrobacter freundii Serratia marcescens Enterococcus species Serology 11/13/17 Range/Units 11:30 Chlamy pneumoniae PCR Not Detected (Not Detect) Adenovirus (PCR) Not Detected (Not Detect) B. pertussis DNA (PCR) Not Detected (Not Detect) B.parapertussis DNA PCR Not Detected (Not Detect) Coronavirus OC43 (PCR) Not Detected (Not Detect) Coronavirus HKU1 (PCR) Not Detected (Not Detect) Coronavirus 229E (PCR) Not Detected (Not Detect) Coronavirus NL63 (PCR) Not Detected (Not Detect) Human Metapneumovir PCR Not Detected (Not Detect) Influenza A (H1) PCR Not Detected (Not Detect) Influ A (H1N1/09) PCR Not Detected (Not Detect) Influenza A (H3) PCR Not Detected (Not Detect) Influenza A Untype (PCR) Not Detected (Not Detect) Influenza Type B (PCR) Not Detected (Not Detect) M.pneumoniae DNA (PCR) Not Detected (Not Detect) Parainfluenza 1 (PCR) Not Detected (Not Detect) Parainfluenza 2 (PCR) Not Detected (Not Detect) Parainfluenza 3 (PCR) Not Detected (Not Detect) Parainfluenza 4 (PCR) Not Detected (Not Detect) RSV (PCR) Not Detected (Not Detect) Entero/Rhino (PCR) Not Detected (Not Detect) - Impressions Impressions Lower Extremity CT 11/14/17 17:00 IMPRESSION: 1. Diffuse subcutaneous fat stranding and skin thickening in the bilateral lower extremities compatible with cellulitis versus lymphedema. No drainable fluid collection. 2. Acute minimally displaced extra-articular left 5th metatarsal base fracture. D/ / Elton Lozano MD / Elton Lozano MD Interpreting Provider: Elton Lozano MD Lower Extremity CT 11/14/17 17:00 IMPRESSION: 1. Diffuse subcutaneous fat stranding and skin thickening in the bilateral lower extremities compatible with cellulitis versus lymphedema. No drainable fluid collection. 2. Acute minimally displaced extra-articular left 5th metatarsal base fracture. D/ / Elton Lozano MD / Elton Lozano MD Interpreting Provider: Elton Lozano MD Exam - Constitutional Vitals: Temp Pulse Resp BP Pulse Ox 98.7 F 80 16 124/71 96 11/15/17 11:05 11/15/17 11:05 11/15/17 11:05 11/15/17 11:05 11/15/17 11:05 General appearance: morbidly obese, no acute distress - Respiratory Respiratory exam: Present: CTAB - Cardiovascular Cardiovascular exam: Present: RRR, +S1, +S2 - GI/Abdominal Additional comments: Abdomen is obese, distended, soft, nontender, normal bowel sounds. - Extremities Exam Additional comments: Bilateral lower extremity cellulitis present with erythema, +1 pitting edema, extremities are warm to palpation. Extensive area of erythema along the entire legs going from below the knee up to the ankle with sharp areas of demarcation. Bilateral lower extremity stasis dermatitis present. bilateral lower extremity feet wrapped. - Neurological Exam Neurological exam: Present: alert, oriented X3 - Psychiatric Psychiatric exam: Present: normal affect, normal mood Consult Discharge Plan - Plan Referrals: WoundCare,Clinic [Other] (Wound Care will call the patient at home with the date and time of appointment with Dr. Stoll in the Wound Care Department. If you do not receive a call, please call and schedule your appointment for next MondayNovember 24. Thank you) Jc Tsai MD [Primary Care Provider] - (Office will call patient at home with date and time of appointment. Thank you.) Prescriptions: Ampicillin Trihydrate 1,000 mg PO Q6H 10 Days #40 capsule Carvedilol [Coreg] 3.125 mg PO BIDWM #30 tablet Gauze Bandage [Rolled Gauze] 20 each TP DAILY #20 bandage levoFLOXacin [Levaquin] 750 mg PO DAILY 10 Days #10 tablet - Attending Attestation I examined this patient and my medical decision-making was reviewed with the Resident Physician. I agree with the documented findings, disposition and treatment plan as described except to the extent set forth below.
[2017-11-15] MEDS ORDERED: Furosemide 40 MG TABLET PO SCH (14:15)
[2017-11-15 14:50] VITALS: BP 127/68
--- NOTE | 2017-11-15 15:06 | Physician Discharge Referral ---
<OmarBlanco - Last Filed: 11/15/17 15:04> Home Health/Hosp Referral Info Transfer to: Home Health Attending Provider: Dr. Mo Provider in Charge Post Discharge: PCP - Diagnosis (1) Bilateral lower leg cellulitis Priority: Primary Status: Suspected (2) Acute on chronic diastolic heart failure Priority: Primary Status: Acute (3) Venous stasis dermatitis of both lower extremities Priority: Primary Status: Chronic (4) HTN (hypertension) Priority: Secondary Status: Chronic (5) HLD (hyperlipidemia) Priority: Secondary Status: Chronic (6) Type 2 diabetes mellitus Priority: Secondary Status: Chronic (7) REGINALD on CPAP Priority: Secondary Status: Acute (8) Morbid obesity Priority: Secondary Status: Chronic (9) DVT prophylaxis Priority: Secondary Status: Acute - Respiratory Orders Smoking Cessation: Smoking cessation has been advised. For more information, call the [place] Tobacco Quit Line at 0-239-CUIG-NOW. - Dressing/Wound Care Site: lesions debrided on the heel of the right foot, fifth digit of the right foot, great toe of the right foot, great toe of the left foot, lateral aspect of the left foot. Type of Dressing/Treatments w/Frequency: change foot dressings daily, use hibiclense to wash the sites and apply Adaptic , 4 x 4's, Kerlix. - Diet/Nutrition Diet/Nutrition Orders: Cardiac (Diabetic diet) - Activity Activity Orders: Up ad arian, Ambulate - Services Needed Following services are medically necessary services: Nursing, Home Health Aide, Physical Therapy, Occupational Therapy, Med Social Work - Transfer Medications Prescriptions: Ampicillin Trihydrate 1,000 mg PO Q6H 10 Days #40 capsule Carvedilol [Coreg] 3.125 mg PO BIDWM #30 tablet Gauze Bandage [Rolled Gauze] 20 each TP DAILY #20 bandage levoFLOXacin [Levaquin] 750 mg PO DAILY 10 Days #10 tablet Home Medications: Atorvastatin [Lipitor] 40 mg PO HS 01/11/16 [History] Insulin ASPART [Novolog Flexpen] 6 - 14 unit SQ TID 01/11/16 [History] Insulin Glargine,Hum.rec.anlog [Lantus Solostar] 100 unit SQ BID 01/11/16 [ History] Latanoprost [Xalatan] 1 drop BOTH EYES HS 01/11/16 [History] Primidone [Mysoline] 25 - 50 mg PO BID PRN 01/11/16 [History] clonazePAM [Klonopin] 0.5 mg PO BID PRN 01/11/16 [History] Acetaminophen [Tylenol] 650 mg PO Q6HR PRN #0 tablet 01/12/16 [Rx] Ascorbic Acid [Vitamin C] 500 mg PO BID 03/25/16 [History] Docusate Sodium [Colace] 200 mg PO BID 03/25/16 [History] Furosemide [Lasix] 40 mg PO BID 12/06/16 [History] Pregabalin [Lyrica] 75 mg PO BID 12/06/16 [History] Potassium Chloride [K-Tab ER] 20 meq PO TID #0 12/08/16 [Rx] Fluticasone Propionate Nasal [Flonase] 2 spray NS DAILY #1 bottle 08/28/17 [Rx] Guaifenesin [Guaifenesin ER] 600 mg PO BID PRN #20 tab.er.12h 08/28/17 [Rx] Benzonatate [Tessalon] 100 mg PO TID #30 capsule 10/03/17 [Rx] Brimonidine Tartrate/Timolol [Combigan 0.2%-0.5% Eye Drops] 1 drop OP BID [History] Diltiazem HCl [Diltiazem 12Hr ER] 120 mg PO DAILY 11/10/17 [History] Esomeprazole Magnesium [Nexium] 40 mg PO DAILY 11/10/17 [History] Gentamicin Oint [Garamycin] 1 appl TP BID 11/10/17 [History] Ketoconazole 2% CRM [Nizoral Cream] 1 appl TP DAILY 11/10/17 [History] Ketorolac Tromethamine 1 drop OP QID 11/10/17 [History] Losartan Potassium [Cozaar] 100 mg PO DAILY 11/10/17 [History] Ampicillin Trihydrate 1,000 mg PO Q6H 10 Days #40 capsule 11/15/17 [Rx] Carvedilol [Coreg] 3.125 mg PO BIDWM #30 tablet 11/15/17 [Rx] Gauze Bandage [Rolled Gauze] 20 each TP DAILY #20 bandage 11/15/17 [Rx] levoFLOXacin [Levaquin] 750 mg PO DAILY 10 Days #10 tablet 11/15/17 [Rx] Allergies/Adverse Reactions: 3 Allergy/AdvReac Type Severity Reaction Status Date / Time lisinopril [From Zestril] Allergy Rash Verified 11/10/17 16:06 Certification: Further, I certify that my clinical findings support that this patient is homebound (i.e. absences from home require considerable and taxing effort and are for medical reasons or zoroastrian services or infrequently or short duration when for other reasons) because: Homebound Reason: Patient requires assistance of a person or device to safely leave home, Post-surgery restriction and or conditions limit ability to leave home, Leaving home requires considerable and taxing effort due to condition Attestation: My signature below is to certify that this patient is under my care and that I, or nurse practitioner, or a physician's language assistant working with me, has a face-to -face encounter with this patient. <Catrachito Ambrocio - Last Filed: 11/15/17 17:04> - Diagnosis (1) DVT prophylaxis Status: Acute (2) Morbid obesity Status: Chronic (3) HTN (hypertension) Status: Chronic (4) HLD (hyperlipidemia) Status: Chronic (5) Venous stasis dermatitis of both lower extremities Status: Chronic (6) Type 2 diabetes mellitus Status: Chronic (7) Bilateral lower leg cellulitis Status: Suspected (8) Acute on chronic diastolic heart failure Status: Acute (9) REGINALD on CPAP Status: Chronic - Respiratory Orders Smoking Cessation: Smoking cessation has been advised. For more information, call the [place] Tobacco Quit Line at 2-714-SQMW-NOW. Certification: Further, I certify that my clinical findings support that this patient is homebound (i.e. absences from home require considerable and taxing effort and are for medical reasons or zoroastrian services or infrequently or short duration when for other reasons) because: Attestation: My signature below is to certify that this patient is under my care and that I, or nurse practitioner, or a physician's language assistant working with me, has a face-to -face encounter with this patient.
--- NOTE | 2017-11-15 15:11 | Discharge Summary ---
<Blanco Nelson - Last Filed: 11/15/17 15:08> - NOTES TO OUTPATIENT PROVIDER Notes to Outpatient Provider: HGB A1C 11.1, will need outpatient insulin regimen adjustment and repeat BMP in 1 week due to DOROTHEA. Continue Lasix and Coreg , will likely need to uptitrate this over time. Continue change foot dressings daily, use hibiclense to wash the sites and apply Adaptic, 4 x 4's, Kerlix, and infectious disease and podiatry follow up. Orders not resulted at time of discharge: Pending orders 11/12/17 09:16 Culture,Anaerobic [RM] Routine 11/12/17 11:37 Culture,Wound [RM] Routine 11/13/17 15:20 Culture,Blood,Additional [BC] Stat Date of Encounter: 11/15/17 Time of Encounter: 15:08 - Discharge Diagnosis (1) Bilateral lower leg cellulitis Priority: Primary Status: Suspected Assessment and Plan: Patient with multiple wounds and h/o multiple drug-resistant organisms on cultures in the past. Patient had temp 99.7F overnight, ESR > 130, CRP 74 CT legs revealed acute minimally displaced extra-articular left 5th metatarsal base fracture, Diffuse subcutaneous fat stranding and skin thickening in the bilateral lower extremities compatible with cellulitis versus lymphedema. No drainable fluid collection. Podiatry following, performed bedside debridement, appreciate recommendations Wound cultures are positive for Enterococcus, Citrobacter freundii, and Serratia marcescens Ampicillin and Levaquin PO, continue until 11/25/17 per ID recommendations, d/c planning once cleared by ID Will need outpatient ID follow up (2) Acute on chronic diastolic heart failure Priority: Primary Status: Acute Assessment and Plan: Exam is consistent with CHF, predominantly right sided with marked lower extremity edema. Echo reveals EF 55-60% with concentric LVH Continue Coreg, will likely need to uptitrate this over time. She lists lisinopril as an allergy and we will need to clarify this as Cl inhibitors can have significant benefit in patients with diabetes and hypertension, CHF Resume Lasix CXR 11/13/17 revealed findings most compatible with CHF with mild edema and small left pleural effusion. Fluid balance: [id number] Monitor strict I&Os and daily weights. Continue home medications. (3) Venous stasis dermatitis of both lower extremities Priority: Primary Status: Chronic Assessment and Plan: Chronic venous stasis changes of bilateral lower extremities Wound care consulted She is followed by Dr. Stoll in podiatry (4) HTN (hypertension) Priority: Secondary Status: Chronic Assessment and Plan: Continue Coreg, will likely need to uptitrate this over time. She lists lisinopril as an allergy and we will need to clarify this as Cl inhibitors can have significant benefit in patients with diabetes and hypertension, CHF Continue Lasix. Continue monitoring Qualifiers: Hypertension type: essential hypertension Qualified Code(s): I10 - Essential (primary) hypertension (5) HLD (hyperlipidemia) Priority: Secondary Status: Chronic Assessment and Plan: Continue home medications. 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 (8) DVT prophylaxis Priority: Secondary Status: Acute Assessment and Plan: Ambulate (9) REGINALD on CPAP Priority: Secondary Status: Chronic Assessment and Plan: Continue CPAP at night Hospital course: Ms. Magallanes is a 57 year old female with a PMH of morbid obesity, poorly controlled DM, HTN, and diastolic CHF who presented with weeping BLE edema, redness, and SOB. She states that symptoms started about 1 week ago. She was having trouble ambulating because of the increased edema. CXR showed findings consistent with CHF. In the ED, she received Lasix and had good urine output. Her HGB A1C was 11.1 and she has a hx of ESBL. Patient was started on empiric Vanc and Zosyn for bilateral lower extremity cellulitis/ulcers. Podiatry was consulted and performed bedside debridement of bilateral lower extremity wounds. Wound cultures were positive for enterococcus, Citrobacter and Serratia. CT of lower extremities showed diffuse subcutaneous fat stranding and skin thickening in the bilateral lower extremities compatible with cellulitis versus lymphedema and cute minimally displaced extra-articular left 5th metatarsal base fracture. ID recommended continuing Levaquin and Ampicillin upon discharge until 11/25/17. She will need outpatient insulin regimen adjustment and repeat BMP in 1 week due to DOROTHEA. Continue Lasix and Coreg, will likely need to uptitrate this over time. Podiatry recommended continuing foot dressings changes daily, use hibiclense to wash the sites and apply Adaptic, 4 x 4's, and Kerlix. Infectious disease and podiatry follow up with 1-2 weeks. Discharge discussed with: patient - Time Spent with Patient Total time spent providing and/or coordinating discharge services: - Discharge Medications Prescriptions: Ampicillin Trihydrate 1,000 mg PO Q6H 10 Days #40 capsule Carvedilol [Coreg] 3.125 mg PO BIDWM #30 tablet Gauze Bandage [Rolled Gauze] 20 each TP DAILY #20 bandage levoFLOXacin [Levaquin] 750 mg PO DAILY 10 Days #10 tablet Home Medications: Atorvastatin [Lipitor] 40 mg PO HS 01/11/16 [History] Insulin ASPART [Novolog Flexpen] 6 - 14 unit SQ TID 01/11/16 [History] Insulin Glargine,Hum.rec.anlog [Lantus Solostar] 100 unit SQ BID 01/11/16 [ History] Latanoprost [Xalatan] 1 drop BOTH EYES HS 01/11/16 [History] Primidone [Mysoline] 25 - 50 mg PO BID PRN 01/11/16 [History] clonazePAM [Klonopin] 0.5 mg PO BID PRN 01/11/16 [History] Acetaminophen [Tylenol] 650 mg PO Q6HR PRN #0 tablet 01/12/16 [Rx] Ascorbic Acid [Vitamin C] 500 mg PO BID 03/25/16 [History] Docusate Sodium [Colace] 200 mg PO BID 03/25/16 [History] Furosemide [Lasix] 40 mg PO BID 12/06/16 [History] Pregabalin [Lyrica] 75 mg PO BID 05/16/17 [History] Potassium Chloride [K-Tab ER] 20 meq PO TID #0 12/08/16 [Rx] Fluticasone Propionate Nasal [Flonase] 2 spray NS DAILY #1 bottle 08/28/17 [Rx] Guaifenesin [Guaifenesin ER] 600 mg PO BID PRN #20 tab.er.12h 08/28/17 [Rx] Benzonatate [Tessalon] 100 mg PO TID #30 capsule 10/03/17 [Rx] Brimonidine Tartrate/Timolol [Combigan 0.2%-0.5% Eye Drops] 1 drop OP BID [History] Diltiazem HCl [Diltiazem 12Hr ER] 120 mg PO DAILY 11/10/17 [History] Esomeprazole Magnesium [Nexium] 40 mg PO DAILY 11/10/17 [History] Gentamicin Oint [Garamycin] 1 appl TP BID 11/10/17 [History] Ketoconazole 2% CRM [Nizoral Cream] 1 appl TP DAILY 11/10/17 [History] Ketorolac Tromethamine 1 drop OP QID 11/10/17 [History] Losartan Potassium [Cozaar] 100 mg PO DAILY 11/10/17 [History] Ampicillin Trihydrate 1,000 mg PO Q6H 10 Days #40 capsule 11/15/17 [Rx] Carvedilol [Coreg] 3.125 mg PO BIDWM #30 tablet 11/15/17 [Rx] Gauze Bandage [Rolled Gauze] 20 each TP DAILY #20 bandage 11/15/17 [Rx] levoFLOXacin [Levaquin] 750 mg PO DAILY 10 Days #10 tablet 11/15/17 [Rx] Allergies/Adverse Reactions: 3 Allergy/AdvReac Type Severity Reaction Status Date / Time lisinopril [From Zestril] Allergy Rash Verified 11/10/17 16:06 Date of admission: 11/10/17 21:37 Primary care physician: Jc Tsai MD Consults: 11/11/17 16:06 Consult to Podiatry [CONS] Routine Consulting Provider: Podiatry [facility] Reason for Consult: Cellulitis, DM foot ulcer Time Notified: 16:10 Call Completed: Yes 11/13/17 09:52 Consult to Infectious Diseases [CONS] Routine Consulting Provider: [facility] Reason for Consult: Cellulitis, recurrent fever, h/o Klebsiella ESBL DM ulcers Time Notified: 09:54 Call Completed: Yes 11/13/17 10:22 Consult to Occupational Therapy [CONS] Routine Comment: Evaluate, develop and implement POC Reason for Consult: weakness Does patient have active BEDREST order?: No Is patient medically & hemodynamically stable?: Yes Consult to Physical Therapy [CONS] Routine Comment: Evaluate, develop and implement POC Reason for Consult: weakness Does patient have active BEDREST order?: No Is patient medically & hemodynamically stable?: Yes Discharging clinician: Blanco Nelson Anticipated date of discharge: 11/15/17 - Constitutional Vitals: Temp Pulse Resp BP Pulse Ox 98.1 F 88 16 127/68 94 11/15/17 14:49 11/15/17 14:49 11/15/17 14:49 11/15/17 14:49 11/15/17 14:49 General appearance: Present: cooperative, A&O X 3, morbidly obese, pleasant, no acute distress, answers questions appropriately Exam: - Head Head exam: Present: atraumatic, normocephalic - Eye Eye exam: Present: PERRL, conjuntiva pink, sclera anicteric Pupils: Present: PERRL - ENT ENT exam: Present: mucous membranes moist, normal oropharynx - Neck Neck exam general surgery: Present: supple, trachea midline. Absent: lymphadenopathy - Respiratory Respiratory exam: Present: decreased breath sounds (poor resp effort). Absent: accessory muscle use, rales, respiratory distress, rhonchi, wheezes - Cardiovascular Cardiovascular exam: Present: RRR, +S1, +S2. Absent: diastolic murmur, gallop, rubs, systolic murmur - GI/Abdominal GI/Abdominal exam: Present: normal bowel sounds, soft, no peritoneal signs. Absent: distended, tenderness Additional comments: obese - Extremities Exam Extremities exam: Present: normal capillary refill, pedal edema (2+), warm, radial pulses palpable and symmetrical. Absent: calf tenderness, cyanotic - Back Exam Back exam: Present: normal inspection. Absent: tenderness - Neurological Exam Neurological exam: Present: CN II-XII intact, oriented X3, no focal deficits. Absent: pronater drift, facial droop, speech deficit - Psychiatric Psychiatric exam: Present: flat affect, normal mood - Skin Skin exam: Present: dry, erythema (erythema in left leg is much more red than her right, and she has erythema extending all the way from the calf to the middle thigh concerning for cellulitis), intact, warm. Absent: vesicles - Patient Status Disposition: Home Health Service Condition: Fair Functional capacity at discharge: independent ambulation Overall status at discharge: patient is progressing back to baseline - Discharge Instructions Follow Up With: WoundCare,Clinic [Other] (Wound Care will call the patient at home with the date and time of appointment with Dr. Stoll in the Wound Care Department. If you do not receive a call, please call and schedule your appointment for next MondayNovember 24. Thank you) Jc Tsai MD [Primary Care Provider] - (Office will call patient at home with date and time of appointment. Thank you.) Forms: ED Satisfaction Letter - Diet and Activity Activity: as per physical therapy, increase activity as tolerated, resume usual activities as tolerated Diet: diabetic diet <Catrachito Ambrocio H - Last Filed: 11/15/17 17:03> Orders not resulted at time of discharge: Pending orders 11/12/17 09:16 Culture,Anaerobic [RM] Routine 11/12/17 11:37 Culture,Wound [RM] Routine 11/13/17 15:20 Culture,Blood,Additional [BC] Stat Date of Encounter: 11/15/17 - Discharge Diagnosis (1) DVT prophylaxis Status: Acute (2) Morbid obesity Status: Chronic (3) HTN (hypertension) Status: Chronic Qualifiers: Hypertension type: essential hypertension Qualified Code(s): I10 - Essential (primary) hypertension (4) HLD (hyperlipidemia) Status: Chronic Qualifiers: Hyperlipidemia type: mixed hyperlipidemia Qualified Code(s): E78.2 - Mixed hyperlipidemia (5) Venous stasis dermatitis of both lower extremities Status: Chronic (6) Type 2 diabetes mellitus Status: Chronic Qualifiers: Diabetes mellitus lobsterman insulin use: with lobsterman use Diabetes mellitus complication status: with skin complications Diabetes mellitus complication detail: with dermatitis Qualified Code(s): E11.620 - Type 2 diabetes mellitus with diabetic dermatitis; Z79.4 - vermin exterminator (current) use of insulin; Z79.4 - vermin exterminator (current) use of insulin; Z79.4 - residential (current ) use of insulin; Z79.4 - vermin exterminator (current) use of insulin (7) Bilateral lower leg cellulitis Status: Suspected (8) Acute on chronic diastolic heart failure Status: Acute (9) REGINALD on CPAP Status: Chronic Hospital course: Ms. Magallanes is a 57 year old female - Time Spent with Patient Total time spent providing and/or coordinating discharge services: Date of admission: 11/10/17 21:37 Primary care physician: Jc Tsai MD Consults: 11/11/17 16:06 Consult to Podiatry [CONS] Routine Consulting Provider: Podiatry [facility] Reason for Consult: Cellulitis, DM foot ulcer Time Notified: 16:10 Call Completed: Yes 11/13/17 09:52 Consult to Infectious Diseases [CONS] Routine Consulting Provider: [facility] Reason for Consult: Cellulitis, recurrent fever, h/o Klebsiella ESBL DM ulcers Time Notified: 09:54 Call Completed: Yes 11/13/17 10:22 Consult to Occupational Therapy [CONS] Routine Comment: Evaluate, develop and implement POC Reason for Consult: weakness Does patient have active BEDREST order?: No Is patient medically & hemodynamically stable?: Yes Consult to Physical Therapy [CONS] Routine Comment: Evaluate, develop and implement POC Reason for Consult: weakness Does patient have active BEDREST order?: No Is patient medically & hemodynamically stable?: Yes - Constitutional Vitals: Temp Pulse Resp BP Pulse Ox 98.1 F 88 16 127/68 94 11/15/17 14:49 11/15/17 14:49 11/15/17 14:49 11/15/17 14:49 11/15/17 16:37 - Attending Attestation acute diastolic CHF exacerbation hold lasix due to ARF bilateral lower extremities cellulitis/ulcers cultures growing enterococcus, Citrobacter and Serratia ID recommending Levaquin and Amoxicillin for [address] of lower extremities showed:1. Diffuse subcutaneous fat stranding and skin thickening in the bilateral lower extremities compatible with cellulitis versus lymphedema. No drainable fluid collection. 2. Acute minimally displaced extra- articular left 5th metatarsal base fracture. Podiatry consulted time spent: 40 min I examined this patient and my medical decision-making was reviewed with the Resident Physician. I agree with the documented findings, disposition and treatment plan as described except to the extent set forth below.
--- NOTE | 2017-11-15 17:11 | Podiatry Progress Note ---
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 Dressings changed at bedside. Lesions appear to be healing with healthy pink skin to the base of the wounds. There is periwound erythema to the right heel, patient was just assisted back to bed by PT. WBC: 12.9, Temp: 98.1 Microbiology 11/12/17 09:16 Other-Specify in Comments Wound Culture - Final Enterococcus species 11/11/17 14:25 Left Foot Wound Culture - Final Citrobacter freundii Serratia marcescens Enterococcus species Plan: Continue wound care as ordered: Apply adaptic to the plantar aspect of the right heel, distal aspect of right great toe and lateral aspect of toe #5 right foot, distal aspect of the left great toe and sub #5 metatarsal head left foot with dry sterile 4x4 gauze and kerlix. Follow up with Dr. Stoll in wound care with in one week of discharge from hospital. Continue protective weight bearing with post op shoes. Antibiotic therapy per ID. Qualifiers: Diabetic foot ulcer location: midfoot Diabetes mellitus type: type 2 Laterality: right Non-pressure ulcer stage: limited to breakdown of skin Qualified Code(s): E11.621 - Type 2 diabetes mellitus with foot ulcer; L97.411 - Non-pressure chronic ulcer of right heel and midfoot limited to breakdown of skin; L97.411 - Non-pressure chronic ulcer of right heel and midfoot limited to breakdown of skin; L97.411 - Non-pressure chronic ulcer of right heel and midfoot limited to breakdown of skin; L97.411 - Non-pressure chronic ulcer of right heel and midfoot limited to breakdown of skin Subjective Interval history: Patient is s/p bedside debridement of multiple lesions to both feet by Dr. Simmons on 11/12/17. Patient is lying in bed with dressings intact to both feet. Moderate amount of serous drainage observed to the dressing of the right foot. Patient states she is hoping to go home today. Objective - Vital Signs Vital Signs: Vital Signs Temp Pulse Resp BP Pulse Ox 11/15/17 16:37 94 11/15/17 14:49 98.1 F 88 16 127/68 94 11/15/17 11:05 98.7 F 80 16 124/71 96 11/15/17 07:15 99.7 F H 81 16 118/63 94 11/15/17 03:05 99.3 F 79 16 109/65 94 11/14/17 22:36 98.2 F 77 16 108/67 94 11/14/17 19:44 98.4 F 84 18 135/67 95 Intake and Output 11/15/17 11/15/17 11/15/17 07:59 15:59 23:59 Intake Total 200 / 200 840 / 840 Output Total 0 / 0 Balance 200 / 200 840 / 840 Intake: IV Fluids 200 / 200 Ampicillin 1,000 MG In 0.9 % 200 / 200 Sodium Chloride (Mini-Bag +) 100 ML @ 200 mls/hr IVPB Q6HR [facility] Rx#:[id number] Oral 0 / 0 840 / 840 Output: Urine 0 / 0 Other: Meal Lunch Percent of Meal Consumed 60% Stool Size Moderate Stool Consistency loose Stool Color Brown # Voids 1 # Urine Diapers 1 2 # Bowel Movements 1 # Bowel Movement Diapers 1 1 Blood Glucose* 67 83 80 - Exam Exam: . General appearance: alert awake oriented X 3. Calm and pleasant, no acute distress.. Vascular: Unable to palpate pedal pulses due to edema, No evidence of cyanosis, pallor or rubor, Edema graded at 2+/4, Skin temperature warm, Homans Sign negative, capillary refill time is immediate to digits.. Integument: Skin with decreased turgor, decreased subcutaneous tissue, skin thin and shiny with trophic changes associated with comorbidities as described in history. Erythema with cobblestone appearance to BLE. Wound #1: plantar aspect of right heel measuring 7.5 cm in length x 5 cm in width, base of wound is red, no pus, no odor, light periwound erythema, no streaking, no fluctuance, no exposed bone, no ligament or tendon. Moderate amount of serous drainage observed to dressing. #2: Distal aspect of right great toe measuring 2 cm in length x 2.5 cm in width , base of wound is red, no pus, no odor, no warmth, no streaking. #3: Distal aspect of left great toe measuring 4.5 cm in length x 3.5 cm in width , base of wound is red, no pus, no odor, no warmth, no streaking. #4 Sub #4 metatarsal head left foot measuring 3.5 cm in length x 3 cm in width, base of wound is red, no pus, no odor, no warmth, no streaking. - Lab Result Diagrams: 11/15/17 01:00 11/15/17 01:00 Labs: Abnormal lab results WBC 12.9 K/mcL (4.3-11.1) H 11/15/17 01:00 Hgb 9.6 g/dL (11.5-15.4) L D 11/15/17 01:00 Hct 31.6 % (35.3-44.9) L 11/15/17 01:00 MCV 81.2 fL (83.0-100.0) L 11/15/17 01:00 MCH 24.7 pg (28.0-33.3) L 11/15/17 01:00 MCHC 30.4 g/dL (31.6-35.5) L 11/15/17 01:00 RDW 15.2 % (11.5-14.5) H 11/15/17 01:00 MPV 12.8 fL (9.4-12.4) H 11/15/17 01:00 Neutrophils # 9.7 K/mcL (1.6-8.9) H 11/15/17 01:00 Nucleated RBCs/100 WBC 0.3 /100 WBC (0) H 11/14/17 08:52 ESR >= 130 mm/hr (0-15) H 11/14/17 00:44 PT 13.1 Seconds (9.4-12.1) H 11/12/17 01:52 Carbon Dioxide 31 mEq/L (23-29) H 11/15/17 01:00 BUN 48 mg/dL (6-20) H 11/15/17 01:00 Creatinine 1.34 mg/dL (0.60-1.20) H 11/15/17 01:00 Est GFR ( Amer) 50 (> 60) L 11/15/17 01:00 Est GFR (Non-Af Amer) 41 (> 60) L 11/15/17 01:00 BUN/Creatinine Ratio 36 (6-26) H 11/15/17 01:00 Hemoglobin A1c 11.7 % (-5.6) H 11/10/17 13:19 Calculated Osmolality 305 (280-300) H 11/15/17 01:00 Calcium 7.8 mg/dL (8.6-10.3) L 11/15/17 01:00 C-Reactive Protein 74 mg/L (Less than 10) H 11/14/17 00:44 B-Natriuretic Peptide 182 pg/mL (Less than 100) H 11/11/17 03:18 Procalcitonin 0.15 ng/mL (<=0.10) H 11/11/17 13:11 Microbiology, Last 48 Hours 11/12/17 09:16 Anaerobic Culture - Preliminary Right Leg At this time, no anaerobic growth is present. The culture will be finalized after 5 days of incubation. 11/13/17 15:20 Blood Culture - Preliminary Peripheral Venipuncture No growth. 11/13/17 15:20 Blood Culture - Preliminary Peripheral Venipuncture No growth. 11/12/17 09:16 Wound Culture - Final Other-Specify in Comments Enterococcus species 11/11/17 14:25 Wound Culture - Final Left Foot Citrobacter freundii Serratia marcescens Enterococcus species Consult Discharge Plan - Plan Referrals: WoundCare,Clinic [Other] (Wound Care will call the patient at home with the date and time of appointment with Dr. Stoll in the Wound Care Department. If you do not receive a call, please call and schedule your appointment for next MondayNovember 24. Thank you) Jc Tsai MD [Primary Care Provider] - (Office will call patient at home with date and time of appointment. Thank you.) Prescriptions: Ampicillin Trihydrate 1,000 mg PO Q6H 10 Days #40 capsule Carvedilol [Coreg] 3.125 mg PO BIDWM #30 tablet Gauze Bandage [Rolled Gauze] 20 each TP DAILY #20 bandage levoFLOXacin [Levaquin] 750 mg PO DAILY 10 Days #10 tablet
[2017-11-16] MEDS ORDERED: Insulin DETEMIR 100 UNIT/ML X5UNITS SQ SCH (09:00)
== END 2017-11-15 17:20 | disposition home health service (06) | DRG 720 ==
LOC: EMEROO 12:54 → 3NENU 21:37 → 3ANU 11-15 14:27
PROVIDERS: ADMIT Family Medicine; ATTEND Family Medicine

== ENCOUNTER 2017-11-18 18:32 | Inpatient (IN) ==
--- NOTE | 2017-11-18 18:42 | Emergency Department Note ---
Disposition Clinical Impression: Acute kidney injury Cellulitis Qualifiers: Site of cellulitis: unspecified site Qualified Code(s): L03.90 - Cellulitis, unspecified Disposition: Admitted As Inpatient Condition: Fair Referrals: Jc Tsai MD [Primary Care Provider] - Forms: ED Satisfaction Letter Time of Disposition: 21:01 General Adult HPI - General Chief complaint: ED Fall Stated complaint: ed fall Time Seen by Provider: 11/18/17 18:36 Source: patient Mode of arrival: ambulatory Limitations: no limitations Nursing Notes Reviewed: Yes Vital Signs Reviewed: Yes - History of Present Illness HPI Narrative: 57-year-old female who has a history of CHF comes out with increasing swelling of her legs or leaking fluids are red bilaterally. She was hospitalized discharge 6 days ago and says she thinks she went home too soon. She also fell today her left knee gave out just complaining of right lower leg pain and left knee pain. Onset (ago): Just INCLUSION MANAGER Location: lower extremity (Left knee right tib-fib region) Pain Severity: moderate Pain Scale: 7 Quality: aching Consistency: constant Improves with: nothing Worsens with: movement Associated symptoms: Reports: shortness of breath - Related Data Home Medications Medication Instructions Recorded Confirmed Atorvastatin [Lipitor] 40 mg PO HS 01/11/16 11/10/17 Insulin ASPART [Novolog Flexpen] 6 - 14 unit SQ TID 01/11/16 11/10/17 Insulin Glargine,Hum.rec.anlog 100 unit SQ BID 01/11/16 11/10/17 [Lantus Solostar] Latanoprost [Xalatan] 1 drop BOTH EYES HS 01/11/16 11/10/17 Primidone [Mysoline] 25 - 50 mg PO BID PRN 01/11/16 11/10/17 clonazePAM [Klonopin] 0.5 mg PO BID PRN 01/11/16 11/10/17 Ascorbic Acid [Vitamin C] 500 mg PO BID 03/25/16 11/10/17 Docusate Sodium [Colace] 200 mg PO BID 03/25/16 11/10/17 Furosemide [Lasix] 40 mg PO BID 12/06/16 11/10/17 Pregabalin [Lyrica] 75 mg PO BID 12/06/16 11/10/17 Brimonidine Tartrate/Timolol 1 drop OP BID 11/10/17 11/10/17 [Combigan 0.2%-0.5% Eye Drops] Diltiazem HCl [Diltiazem 12Hr ER] 120 mg PO DAILY 11/10/17 11/10/17 Esomeprazole Magnesium [Nexium] 40 mg PO DAILY 11/10/17 11/10/17 Gentamicin Oint [Garamycin] 1 appl TP BID 11/10/17 11/10/17 Ketoconazole 2% CRM [Nizoral Cream] 1 appl TP DAILY 11/10/17 11/10/17 Ketorolac Tromethamine 1 drop OP QID 11/10/17 11/10/17 Losartan Potassium [Cozaar] 100 mg PO DAILY 11/10/17 11/10/17 Previous Rx's Medication Instructions Recorded Acetaminophen [Tylenol] 650 mg PO Q6HR PRN #0 tablet 01/12/16 Potassium Chloride [K-Tab ER] 20 meq PO TID #0 12/08/16 Fluticasone Propionate Nasal 2 spray NS DAILY #1 bottle 08/28/17 [Flonase] Guaifenesin [Guaifenesin ER] 600 mg PO BID PRN #20 tab.er.12h 08/28/17 Benzonatate [Tessalon] 100 mg PO TID #30 capsule 10/03/17 Ampicillin Trihydrate 1,000 mg PO Q6H 10 Days #40 capsule 11/15/17 Carvedilol [Coreg] 3.125 mg PO BIDWM #30 tablet 11/15/17 Gauze Bandage [Rolled Gauze] 20 each TP DAILY #20 bandage 11/15/17 levoFLOXacin [Levaquin] 750 mg PO DAILY 10 Days #10 tablet 11/15/17 Allergies Allergy/AdvReac Type Severity Reaction Status Date / Time lisinopril [From Zestril] Allergy Rash Verified 11/10/17 16:06 All systems ED: reviewed and negative except as stated. Constitutional: Denies: fever, chills, weakness, weight change Eyes: Denies: eye pain, eye discharge, vision change ENT ED: Denies: ear pain, throat pain, dental pain, hearing loss, epistaxis, congestion, dysphagia Cardiovascular: Denies: chest pain, palpitations, dyspnea on exertion, edema, syncope Respiratory: Denies: cough, dyspnea, wheezes, hemoptysis, stridor Gastrointestinal: Denies: abdominal pain, nausea, vomiting, diarrhea, constipation, hematemesis, melena, hematochezia Genitourinary: Denies: dysuria, frequency, hematuria, discharge Musculoskeletal: Reports: arthralgia. Denies: back pain, neck pain, myalgia Integumentary: Denies: rash, abrasion, lesions Neurological: Denies: headache, weakness, numbness, paresthesias, confusion, abnormal gait, vertigo Psychiatric: Denies: anxiety, depression, suicidal thoughts, homicidal thoughts , auditory hallucinations, visual hallucinations Endocrine: Denies: fatigue Hematological/Lymphatic: Denies: easy bleeding, easy bruising Allergic/Immunologic: Denies: facial swelling, urticaria Past Medical History - Past Medical History Medical history: Reports: CHF, diabetes, hypertension, other Surgical history: Reports: hysterectomy, other Psychiatric history: Reports: depression MANAGER FEDERAL history: Reports: no MANAGER 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 history - Social History Smoking Status: Never smoker Smokeless Tobacco Status: No Alcohol use: Reports: none Drug use: Reports: none Physical Exam - General Limitations: no limitations General appearance: alert - Head Head exam: atraumatic, normocephalic, normal inspection - Eye Eye exam: Present: normal appearance, PERRL, EOMI - ENT ENT exam: normal exam, normal oropharynx, mucous membranes moist - Neck Neck exam: Present: normal inspection, full ROM, trachea midline - Chest Chest inspection: Present: normal inspection, symmetric chest wall rise - Respiratory Respiratory exam: Present: other (Diminished) - Abdominal Exam Abdominal exam: Present: soft, Non-Tender. Absent: tenderness, distention, guarding, rebound, rigidity - Expanded Lower Extremity Exam Lower leg exam: Present: swelling, erythema (Anteriorly bilaterally) Neurovascular/Tendon exam: Absent: motor deficit, sensory deficit, tendon deficit Gait: not tested/not observed - Back Exam Back exam: Present: normal inspection, full ROM. Absent: tenderness - Neurological Exam Neurological exam: Present: alert, oriented X3 - Psychiatric Psychiatric exam: Present: normal affect, normal mood - Skin Skin exam: Present: warm, dry, intact, normal color Course - Reevaluation(s) Reevaluation #1: 57-year-old who has swelling of her lower extremities redness anteriorly warm to touch says her symptoms got worse. She also has acute kidney injury. Patient will be admitted for evaluation. Time: 21:01 - Consultations Consultation #1: Accepted by , admit. Time: 21:02 Vital Signs Temperature 98.3 F 11/18/17 18:33 Pulse Rate 78 11/18/17 18:33 Respiratory Rate 16 11/18/17 18:33 Blood Pressure 121/56 11/18/17 18:33 O2 Sat by Pulse Oximetry 93 11/18/17 18:33 Temperature 98.3 F 11/18/17 18:33 Pulse Rate 74 11/18/17 19:14 Respiratory Rate 18 11/18/17 19:14 Blood Pressure 126/62 11/18/17 19:14 O2 Sat by Pulse Oximetry 94 11/18/17 19:14 Oxygen Delivery Oxygen Delivery Nasal Cannula Medical Decision Making - Lab Data Lab results reviewed: Yes I reviewed the patient's lab results. Result diagrams: 11/18/17 19:09 11/18/17 19:09 Lab Results 11/18/17 11/18/17 11/18/17 Range/Units 19:09 19:09 19:09 WBC 13.2 H (4.3-11.1) K/mcL RBC 4.05 (3.82-4.97) M/mcL Hgb 10.0 L (11.5-15.4) g/dL Hct 31.9 L (35.3-44.9) % MCV 78.8 L (83.0-100.0) fL MCH 24.7 L (28.0-33.3) pg MCHC 31.3 L (31.6-35.5) g/dL RDW 14.6 H (11.5-14.5) % Plt Count 239 (140-400) K/mcL MPV 12.6 H (9.4-12.4) fL Immature Gran % 0.6 (0-4) % Seg Neutrophils % 85.0 % Lymphocytes % 8.3 % Monocytes % 5.0 % Eosinophils % 0.8 % Basophils % 0.3 % Neutrophils # 11.2 H (1.6-8.9) K/mcL Lymphocytes # 1.1 (0.6-4.6) K/mcL Monocytes # 0.7 (0.0-1.3) K/mcL Eosinophils # 0.1 (0.0-0.6) K/mcL Basophils # 0.0 (0.0-0.2) K/mcL ESR >= 130 H (0-15) mm/hr Sodium 136 (136-145) mEq/L Potassium 3.8 (3.5-5.1) mEq/L Chloride 98 (98-107) mEq/L Carbon Dioxide 28 (23-29) mEq/L BUN 52 H (6-20) mg/dL Creatinine 1.55 H (0.60-1.20) mg/dL Est GFR ( Amer) 42 L (> 60) Est GFR (Non-Af Amer) 35 L (> 60) BUN/Creatinine Ratio 34 H (6-26) Glucose 243 H (70-105) mg/dL Calculated Osmolality 304 H (280-300) Lactic Acid (0.5-2.2) mmol/L Calcium 8.2 L (8.6-10.3) mg/dL Troponin I < 0.03 (< 0.04) ng/mL B-Natriuretic Peptide (Less than 100) pg/mL 11/18/17 11/18/17 Range/Units 19:09 19:09 WBC (4.3-11.1) K/mcL RBC (3.82-4.97) M/mcL Hgb (11.5-15.4) g/dL Hct (35.3-44.9) % MCV (83.0-100.0) fL MCH (28.0-33.3) pg MCHC (31.6-35.5) g/dL RDW (11.5-14.5) % Plt Count (140-400) K/mcL MPV (9.4-12.4) fL Immature Gran % (0-4) % Seg Neutrophils % % Lymphocytes % % Monocytes % % Eosinophils % % Basophils % % Neutrophils # (1.6-8.9) K/mcL Lymphocytes # (0.6-4.6) K/mcL Monocytes # (0.0-1.3) K/mcL Eosinophils # (0.0-0.6) K/mcL Basophils # (0.0-0.2) K/mcL ESR (0-15) mm/hr Sodium (136-145) mEq/L Potassium (3.5-5.1) mEq/L Chloride (98-107) mEq/L Carbon Dioxide (23-29) mEq/L BUN (6-20) mg/dL Creatinine (0.60-1.20) mg/dL Est GFR ( Amer) (> 60) Est GFR (Non-Af Amer) (> 60) BUN/Creatinine Ratio (6-26) Glucose (70-105) mg/dL Calculated Osmolality (280-300) Lactic Acid 1.2 (0.5-2.2) mmol/L Calcium (8.6-10.3) mg/dL Troponin I (< 0.04) ng/mL B-Natriuretic Peptide 109 H (Less than 100) pg/mL - Radiology Data Radiology results reviewed: Yes I reviewed the patient's radiology results. Chest X-Ray 11/18/17 18:38 IMPRESSION: Mild vascular congestion improved from 11/13/2017. D/ / Elton Lozano MD / Elton Lozano MD Interpreting Provider: Elton Lozano MD Knee X-Ray 11/18/17 18:38 IMPRESSION: No acute osseous abnormality. D/ / Elton Lozano MD / Elton Lozano MD Interpreting Provider: Elton Lozano MD Tibia/Fibula X-Ray 11/18/17 18:38 IMPRESSION: No acute osseous abnormality. D/ / Elton Lozano MD / Elton Lozano MD Interpreting Provider: Elton Lozano MD - EKG Data EKG #1 EKG attestation: Yes I reviewed and interpreted this EKG. EKG shows normal: sinus rhythm Rate: normal Rhythm: NSR Wheeler/QRS: normal Voltage: c/w LVH Interpretation: no acute changes
[2017-11-18 19:24] LABS: Basophils % 0.3 %; Eosinophils # 0.1 K/mcL (0.0-0.6); Eosinophils % 0.8 %; Hematocrit 31.9 % (35.3-44.9); Immature Granulocytes % 0.6 % (0-4); Lymphocytes # 1.1 K/mcL (0.6-4.6); Lymphocytes % 8.3 %; Mean Corpuscular HGB Conc 31.3 g/dL (31.6-35.5); Mean Corpuscular Hemoglobin 24.7 pg (28.0-33.3); Mean Corpuscular Volume 78.8 fL (83.0-100.0); Mean Platelet Volume 12.6 fL (9.4-12.4); Monocytes # 0.7 K/mcL (0.0-1.3); Neutrophils # 11.2 K/mcL (1.6-8.9); Platelet Count 239 K/mcL (140-400); Red Blood Count 4.05 M/mcL (3.82-4.97); Red Cell Distribution Width 14.6 % (11.5-14.5)
[2017-11-18 19:44] LABS: BUN/Creatinine Ratio 34 (6-26); Blood Urea Nitrogen 52 mg/dL (6-20); Calcium 8.2 mg/dL (8.6-10.3); Carbon Dioxide 28 mEq/L (23-29); Chloride 98 mEq/L (98-107); Glucose 243 mg/dL (70-105); Osmolality,Calculated 304 (280-300); Potassium 3.8 mEq/L (3.5-5.1); Sodium 136 mEq/L (136-145); eGFR For African Americans 42 (> 60); eGFR For Non-African Americans 35 (> 60)
[2017-11-18 19:45] LABS: Troponin I < 0.03 ng/mL (< 0.04)
[2017-11-18] MEDS ORDERED: Piperacillin/Tazobactam 3.375 GM in 0.9 % Sodium Chloride Mini Bag 100 ML IVPB ONE (20:59)
[2017-11-18] MEDS ORDERED: Naloxone 0.4 MG/ML INJ IVP PRN (23:05)
[2017-11-18] MEDS ORDERED: *HR* Dextrose 50 % in Water (Syg) 50 ML SYRINGE IVP PRN (23:08)
[2017-11-18] MEDS ORDERED: D5% in Water 1,000 ML IVC PRN (23:08)
[2017-11-18] MEDS ORDERED: Dextrose Gel 15 GM/37.5 ML TUBE PO PRN ×2 (23:08)
[2017-11-18] MEDS ORDERED: clonazePAM 0.5 MG TABLET PO PRN (23:12)
[2017-11-18] MEDS ORDERED: 0.9 % Sodium Chloride 1,000 ML IVC SCH (23:15)
--- NOTE | 2017-11-18 23:22 | Internal Med History&Physical ---
Date of Encounter: 11/18/17 Time of Encounter: 21:00 Internal Medicine - H&P: HPI Chief complaint: Bilateral lower leg swelling Admitted From: Home Plans for Post Hospital Care: Home History of present illness: Ms. Magallanes is a 57 year old female present to ER for bilateral lower leg swelling , skin redness. Past medical history is significant for diabetes, hypertension , REGINALD on CPAP. Patient said she had bilateral leg swelling for several weeks. Patient has no pain but she attributes it is due to she has diabetic neuropathy. Patient has no open wound, bleeding, or discharge. Patient denies fever, or nausea. Patient was given by mouth antibiotics for cellulitis but symptoms not improved and even getting worse. Patient was admitted as cellulitis, failed outpatient treatment. Past Med Surg Social Fam HX - Past Medical History Medical history: CHF, diabetes, hypertension, other Psychiatric history: depression - Past Surgical History Surgical History: hysterectomy, other - Social History Smoking Status: Never smoker Smokeless Tobacco Status: No Alcohol use: none Drug use: none - Family History Mother Adopted: [place]: Selena Robbins Age: 50 Family Member Ethnicity: Non- Living Status: Age at : 50 Cause of : Unknown Hx Family Endocrine Disorder: Yes (diabetes type 2) Father Adopted: [place]: Iftikhar Robbins Age: 60 Family Member Ethnicity: Non- Living Status: Age at : 60 Cause of : Kidney disease Hx Family Cardiac Disorders: Yes (hypertension) Hx Family Respiratory Disorders: No Hx Family Cancer: No Hx Family GI Disorders: No Hx Family Endocrine Disorder: Yes (kidney disease) Internal Medicine - H&P: Meds Atorvastatin [Lipitor] 40 mg PO HS 01/11/16 [History] Insulin ASPART [Novolog Flexpen] 6 - 14 unit SQ TID 01/11/16 [History] Insulin Glargine,Hum.rec.anlog [Lantus Solostar] 100 unit SQ BID 01/11/16 [ History] Latanoprost [Xalatan] 1 drop BOTH EYES HS 01/11/16 [History] Primidone [Mysoline] 25 - 50 mg PO BID PRN 01/11/16 [History] clonazePAM [Klonopin] 0.5 mg PO BID PRN 01/11/16 [History] Acetaminophen [Tylenol] 650 mg PO Q6HR PRN #0 tablet 01/12/16 [Rx] Ascorbic Acid [Vitamin C] 500 mg PO BID 03/25/16 [History] Docusate Sodium [Colace] 200 mg PO BID 03/25/16 [History] Furosemide [Lasix] 40 mg PO BID 12/06/16 [History] Pregabalin [Lyrica] 75 mg PO BID 12/06/16 [History] Potassium Chloride [K-Tab ER] 20 meq PO TID #0 12/08/16 [Rx] Fluticasone Propionate Nasal [Flonase] 2 spray NS DAILY #1 bottle 08/28/17 [Rx] Guaifenesin [Guaifenesin ER] 600 mg PO BID PRN #20 tab.er.12h 08/28/17 [Rx] Benzonatate [Tessalon] 100 mg PO TID #30 capsule 10/03/17 [Rx] Brimonidine Tartrate/Timolol [Combigan 0.2%-0.5% Eye Drops] 1 drop OP BID [History] Diltiazem HCl [Diltiazem 12Hr ER] 120 mg PO DAILY 11/10/17 [History] Esomeprazole Magnesium [Nexium] 40 mg PO DAILY 11/10/17 [History] Gentamicin Oint [Garamycin] 1 appl TP BID 11/10/17 [History] Ketoconazole 2% CRM [Nizoral Cream] 1 appl TP DAILY 11/10/17 [History] Ketorolac Tromethamine 1 drop OP QID 11/10/17 [History] Losartan Potassium [Cozaar] 100 mg PO DAILY 11/10/17 [History] Ampicillin Trihydrate 1,000 mg PO Q6H 10 Days #40 capsule 11/15/17 [Rx] Carvedilol [Coreg] 3.125 mg PO BIDWM #30 tablet 11/15/17 [Rx] Gauze Bandage [Rolled Gauze] 20 each TP DAILY #20 bandage 11/15/17 [Rx] levoFLOXacin [Levaquin] 750 mg PO DAILY 10 Days #10 tablet 11/15/17 [Rx] 3 Allergy/AdvReac Type Severity Reaction Status Date / Time lisinopril [From Zestril] Allergy Rash Verified 11/10/17 16:06 All Systems PM: A 10-system review of systems was performed and is negative for pertinent findings except as documented above in the HPI. - Constitutional Vitals: Temp Pulse Resp BP Pulse Ox 97 F L 83 18 138/71 94 11/18/17 22:10 11/18/17 22:10 11/18/17 22:10 11/18/17 22:10 11/18/17 22:10 General appearance: Present: A&O X 3, morbidly obese, no acute distress, answers questions appropriately - Head Head exam: Present: atraumatic, normocephalic - Eye Eye exam: Present: PERRL, conjuntiva pink, sclera anicteric Pupils: Present: PERRL - Neck Neck exam general surgery: Present: supple, trachea midline. Absent: lymphadenopathy - Respiratory Respiratory exam: Present: CTAB. Absent: accessory muscle use, rales, rhonchi, wheezes - Cardiovascular Cardiovascular exam: Present: RRR, +S1, +S2. Absent: diastolic murmur, gallop, rubs, systolic murmur - GI/Abdominal GI/Abdominal exam: Present: normal bowel sounds, soft, no peritoneal signs. Absent: distended, tenderness - Extremities Exam Extremities exam: Present: pedal edema (Bilaterally), warm, radial pulses palpable and symmetrical. Absent: calf tenderness, cyanotic Additional comments: Bilateral lower leg skin redness/warmth. No open wound or discharge. - Neurological Exam Neurological exam: Present: CN II-XII intact, oriented X3, no focal deficits. Absent: pronater drift, facial droop, speech deficit - Skin Skin exam: Present: dry, intact Internal Med - H&P Results - Labs CBC & Chem 7: 11/18/17 19:09 11/18/17 19:09 - Assessment and plan (1) Acute on chronic renal failure Current Visit: Yes Status: Acute Assessment and plan: Patient has mild elevated creatinine from baseline. Consider acute on chronic renal failure. Give patient IV fluid, follow-up renal function. Avoid the nephrotoxic medications. Qualifiers: Acute renal failure type: unspecified Chronic kidney disease stage: stage 3 (moderate) Qualified Code(s): N17.9 - Acute kidney failure, unspecified; N18.3 - Chronic kidney disease, stage 3 (moderate); N18.3 - Chronic kidney disease, stage 3 (moderate) (2) DVT prophylaxis Current Visit: No Status: Acute Assessment and plan: Heparin subcutaneously (3) Sleep apnea Current Visit: No Status: Acute Assessment and plan: Continue CPAP during night Qualifiers: Sleep apnea type: unspecified type Qualified Code(s): G47.30 - Sleep apnea , unspecified (4) Diabetes mellitus Current Visit: No Status: Chronic Assessment and plan: Continue basal and sliding-scale insulin coverage. Qualifiers: Diabetes mellitus type: type 2 Diabetes mellitus vermin exterminator insulin use: with shelter use Diabetes mellitus complication status: with skin complications Diabetes mellitus complication detail: with other skin complication Qualified Code(s): E11.628 - Type 2 diabetes mellitus with other skin complications; Z79.4 - bed bug exterminator (current) use of insulin (5) HTN (hypertension) Current Visit: No Status: Chronic Assessment and plan: Continue home medications Qualifiers: Hypertension type: essential hypertension Qualified Code(s): I10 - Essential (primary) hypertension (6) Bilateral lower leg cellulitis Current Visit: No Status: Suspected Assessment and plan: Patient has bilateral leg swelling and redness. Consider cellulitis. X-ray shows no bone abnormality. - Place patient on IV antibiotic doxycycline and Zosyn - Follow up blood culture - Venous doppler bilaterally to rule out DVT - Time Spent With Patient Total time spent is greater than 50% in coordination of care (as documented) at patient's floor/unit and/or counseling patient:
[2017-11-19] MEDS: *HR* Heparin 5,000 UNIT/ML VIAL SQ SCH ×4 (00:36→22:13)
[2017-11-19] MEDS: Insulin DETEMIR 100 UNIT/ML X5UNITS SQ SCH ×3 (00:37→22:17)
[2017-11-19] MEDS: 0.9 % Sodium Chloride 1,000 ML IVC SCH ×2 (00:38→20:06)
[2017-11-19 02:08] LABS: Basophils # 0.1 K/mcL (0.0-0.2); Basophils % 0.4 %; Eosinophils # 0.2 K/mcL (0.0-0.6); Eosinophils % 1.4 %; Hematocrit 33.2 % (35.3-44.9); Hemoglobin 10.3 g/dL (11.5-15.4); Immature Granulocytes % 0.5 % (0-4); Lymphocytes # 2.2 K/mcL (0.6-4.6); Lymphocytes % 18.2 %; Mean Corpuscular Hemoglobin 24.6 pg (28.0-33.3); Mean Corpuscular Volume 79.2 fL (83.0-100.0); Mean Platelet Volume 12.7 fL (9.4-12.4); Monocytes # 0.8 K/mcL (0.0-1.3); Monocytes % 6.7 %; Neutrophils # 8.6 K/mcL (1.6-8.9); Platelet Count 238 K/mcL (140-400); Red Blood Count 4.19 M/mcL (3.82-4.97); Red Cell Distribution Width 14.6 % (11.5-14.5); Segmented Neutrophils % 72.8 %
[2017-11-19 04:27] LABS: Calcium 8.3 mg/dL (8.6-10.3); Potassium 3.6 mEq/L (3.5-5.1)
[2017-11-19] MEDS: Doxycycline 100 MG in 0.9 % Sodium Chloride Mini Bag 100 ML IVPB SCH ×2 (04:52→16:50)
[2017-11-19] MEDS: Piperacillin/Tazobactam 3.375 GM in 0.9 % Sodium Chloride Mini Bag 100 ML IVPB SCH ×3 (06:09→22:12)
[2017-11-19] MEDS: Insulin LISPRO 300 UNITS/3 ML VIAL SQ SCH ×4 (08:13→20:21)
[2017-11-19] MEDS: Diltiazem CD (24hr) 120 MG CAPSULE PO SCH (08:16)
[2017-11-19] MEDS: Ascorbic Acid 500 MG TABLET PO SCH ×2 (08:16→20:08)
[2017-11-19] MEDS: Furosemide 40 MG TABLET PO SCH ×2 (08:16→20:08)
[2017-11-19] MEDS: Benzonatate 100 MG CAPSULE PO SCH ×3 (08:16→20:08)
[2017-11-19] MEDS: Pregabalin 75 MG CAPSULE PO SCH ×2 (08:17→20:08)
[2017-11-19] MEDS: Fluticasone Propionate Nasal 50 MCG/SPRAY BOTTLE NS SCH (09:47)
--- NOTE | 2017-11-19 13:47 | Internal Med Progress Note ---
Date of Encounter: 11/19/17 Time of Encounter: 11:00 - Assessment and plan (1) Diabetic foot ulcer Current Visit: No Status: Acute Assessment and plan: Patient with bilateral heel decubitus ulcerations with drainage On recent admission (11/10/17) podiatry was consulted and performed bedside debridement of bilateral lower extremity wounds; wound cultures were positive for enterococcus, Citrobacter and Serratia. CT of lower extremities that admission showed diffuse subcutaneous fat stranding and skin thickening in the bilateral lower extremities compatible with cellulitis versus lymphedema and cute minimally displaced extra-articular left 5th metatarsal base fracture. Infectious disease was following with recommendations to continue Levaquin and ampicillin on discharge as an outpatient until 11/25/17 She returned to the ER on 11/18/17 with no improvement in foot ulcers. Will continue doxycycline and IV Zosyn started on admission Podiatry and infectious disease will be be consulted and appreciate recommendations Qualifiers: Diabetic foot ulcer location: midfoot Diabetes mellitus type: type 2 Laterality: right Non-pressure ulcer stage: limited to breakdown of skin Qualified Code(s): E11.621 - Type 2 diabetes mellitus with foot ulcer; L97.411 - Non-pressure chronic ulcer of right heel and midfoot limited to breakdown of skin; L97.411 - Non-pressure chronic ulcer of right heel and midfoot limited to breakdown of skin; L97.411 - Non-pressure chronic ulcer of right heel and midfoot limited to breakdown of skin; L97.411 - Non-pressure chronic ulcer of right heel and midfoot limited to breakdown of skin (2) Bilateral lower leg cellulitis Current Visit: No Status: Suspected Assessment and plan: Patient has bilateral leg swelling and demarcated erythema (bright red). Venous doppler bilaterally pending to rule out DVT Will continue doxycycline started on admission Infectious disease consulted and appreciate recommendations (3) Sacral decubitus ulcer, stage III Current Visit: No Status: Acute Assessment and plan: Patient with history of decubitus sacral ulcer Wound care consulted and appreciate recommendations (4) Acute kidney injury Current Visit: Yes Status: Acute Assessment and plan: Patient with creatinine elevated from baseline; will continue to monitor (5) HTN (hypertension) Current Visit: No Status: Chronic Assessment and plan: Pressures controlled; continue home medications Qualifiers: Hypertension type: essential hypertension Qualified Code(s): I10 - Essential (primary) hypertension (6) Diabetes mellitus Current Visit: No Status: Chronic Assessment and plan: Continue basal and sliding-scale insulin coverage. 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 (7) Diastolic heart failure Current Visit: No Status: Chronic Assessment and plan: Patient appears euvolemic on exam Will continue home dose of furosemide Qualifiers: Heart failure chronicity: chronic Qualified Code(s): I50.32 - Chronic diastolic (congestive) heart failure (8) HLD (hyperlipidemia) Current Visit: No Status: Chronic Assessment and plan: Continue statin Qualifiers: Hyperlipidemia type: mixed hyperlipidemia Qualified Code(s): E78.2 - Mixed hyperlipidemia (9) Sleep apnea Current Visit: No Status: Acute Qualifiers: Sleep apnea type: unspecified type Qualified Code(s): G47.30 - Sleep apnea , unspecified (10) Peripheral neuropathy due to metabolic disorder Current Visit: No Status: Chronic Assessment and plan: Will continue Lyrica (11) Morbid obesity Current Visit: No Status: Chronic Assessment and plan: BMI of 54.8 (12) DVT prophylaxis Current Visit: No Status: Acute Assessment and plan: Heparin subcutaneously - Time Spent With Patient Total time spent is greater than 50% in coordination of care (as documented) at patient's floor/unit and/or counseling patient: - Subjective Interval history: Patient reports no improvement in her lower extremity cellulitis since been discharged on 11/15/17 for the same This morning she has drainage from previous ulcerations of her right foot with bright red bilateral lower extremity cellulitis - Constitutional Vitals: Temp Pulse Resp BP Pulse Ox 98.3 F 70 18 107/54 94 11/19/17 10:34 11/19/17 10:34 11/19/17 10:34 11/19/17 10:34 11/19/17 10:34 General appearance: Present: A&O X 3, morbidly obese, no acute distress, answers questions appropriately - Cardiovascular Cardiovascular exam: Present: RRR, +S1, +S2. Absent: diastolic murmur, gallop, rubs, systolic murmur - Expanded Lower Extremities Exam Lower Leg exam: Present: erythema, swelling Ankle exam: Present: swelling Foot/Toe exam: Present: erythema (Patient with bilateral foot/heel ulcerations with drainage) Internal Medicine: Result - Labs CBC & Chem 7: 11/19/17 01:46 11/19/17 03:52 Labs: Short CBC 11/19/17 Range/Units 01:46 WBC 11.9 H (4.3-11.1) K/mcL Hgb 10.3 L (11.5-15.4) g/dL Hct 33.2 L (35.3-44.9) % Plt Count 238 (140-400) K/mcL Neutrophils # 8.6 (1.6-8.9) K/mcL BMP 11/19/17 03:52 Sodium 137 Potassium 3.6 Chloride 100 Carbon Dioxide 30 H BUN 48 H Creatinine 1.38 H Glucose 185 H Calcium 8.3 L Consult Discharge Plan - Plan Referrals: Jc Tsai MD [Primary Care Provider] -
[2017-11-19 15:52] LABS: Eosinophils % 2.4 %; Hematocrit 30.4 % (35.3-44.9); Hemoglobin 9.2 g/dL (11.5-15.4); Immature Granulocytes % 0.4 % (0-4); Lymphocytes % 20.1 %; Mean Corpuscular HGB Conc 30.3 g/dL (31.6-35.5); Mean Corpuscular Hemoglobin 24.3 pg (28.0-33.3); Mean Corpuscular Volume 80.2 fL (83.0-100.0); Mean Platelet Volume 12.9 fL (9.4-12.4); Monocytes % 6.7 %; Platelet Count 240 K/mcL (140-400); Red Blood Count 3.79 M/mcL (3.82-4.97); Red Cell Distribution Width 14.6 % (11.5-14.5)
[2017-11-19 15:53] LABS: Basophils # 0.1 K/mcL (0.0-0.2); Basophils % 0.4 %; Eosinophils # 0.3 K/mcL (0.0-0.6); Lymphocytes # 2.3 K/mcL (0.6-4.6); Monocytes # 0.8 K/mcL (0.0-1.3); Neutrophils # 7.9 K/mcL (1.6-8.9)
[2017-11-19 16:02] LABS: Calcium 8.1 mg/dL (8.6-10.3); Potassium 3.5 mEq/L (3.5-5.1)
[2017-11-19] MEDS: Latanoprost 2.5 ML BOTTLE BOTH EYES SCH (20:07)
[2017-11-20] MEDS: Doxycycline 100 MG in 0.9 % Sodium Chloride Mini Bag 100 ML IVPB SCH (05:12)
[2017-11-20] MEDS: Piperacillin/Tazobactam 3.375 GM in 0.9 % Sodium Chloride Mini Bag 100 ML IVPB SCH (06:19)
[2017-11-20] MEDS: Insulin LISPRO 300 UNITS/3 ML VIAL SQ SCH ×4 (07:20→23:23)
[2017-11-20] MEDS: *HR* Heparin 5,000 UNIT/ML VIAL SQ SCH ×3 (08:00→23:50)
[2017-11-20] MEDS: Furosemide 40 MG TABLET PO SCH ×2 (08:01→20:00)
[2017-11-20] MEDS: Benzonatate 100 MG CAPSULE PO SCH ×3 (08:01→20:01)
[2017-11-20] MEDS: Ascorbic Acid 500 MG TABLET PO SCH ×2 (08:01→20:02)
[2017-11-20] MEDS: Pregabalin 75 MG CAPSULE PO SCH ×2 (08:01→20:01)
[2017-11-20] MEDS: Diltiazem CD (24hr) 120 MG CAPSULE PO SCH (08:01)
[2017-11-20] MEDS: Fluticasone Propionate Nasal 50 MCG/SPRAY BOTTLE NS SCH (08:02)
[2017-11-20 09:45] LABS: Basophils # 0.1 K/mcL (0.0-0.2); Basophils % 0.4 %; Eosinophils # 0.3 K/mcL (0.0-0.6); Eosinophils % 2.2 %; Hematocrit 34.2 % (35.3-44.9); Hemoglobin 10.2 g/dL (11.5-15.4); Immature Granulocytes % 0.6 % (0-4); Lymphocytes # 2.2 K/mcL (0.6-4.6); Lymphocytes % 19.3 %; Mean Corpuscular HGB Conc 29.8 g/dL (31.6-35.5); Mean Corpuscular Hemoglobin 24.4 pg (28.0-33.3); Mean Corpuscular Volume 81.8 fL (83.0-100.0); Mean Platelet Volume 12.5 fL (9.4-12.4); Monocytes # 0.7 K/mcL (0.0-1.3); Monocytes % 6.4 %; Neutrophils # 8.1 K/mcL (1.6-8.9); Nucleated Red Blood Cells 0.2 /100 WBC (0); Platelet Count 238 K/mcL (140-400); Red Blood Count 4.18 M/mcL (3.82-4.97); Segmented Neutrophils % 71.1 %
[2017-11-20 10:00] LABS: Calcium 8.2 mg/dL (8.6-10.3); Potassium 4.5 mEq/L (3.5-5.1)
--- NOTE | 2017-11-20 10:14 | Infectious Disease Consult ---
Date of Encounter: 11/20/17 Time of Encounter: 09:51 Assessment and Plan (1) Bilateral lower leg cellulitis Status: Suspected Assessment and plan: Patient met one considers criteria upon admission during her last hospital admission, she was discharged on oral Levaquin and ampicillin-and was to be treated through 11/25/17 during prior admission, wound cultures positive for Citrobacter Freundii, Serratia Marcescens, Enterococcous species. ESR>130 lactic acid: 1.2 11/19/17: preliminary blood cultures negative creatinine clearance 54 Plan: unclear if her cellulitis is actually getting worse, as she had only one SIRS criteria upon admission, WBC is not significantly elevated. Cellulitis vs. Venous stasis. patient received 2 days doxycycline-stopped 11/20 received 2 days Zosyn -stopped 11/20 recommend continued wound care and glycemic control. re start levaquin PO start Amoxicillin PO repeat wound culture now. (2) HTN (hypertension) Status: Chronic Qualifiers: Hypertension type: essential hypertension Qualified Code(s): I10 - Essential (primary) hypertension (3) HLD (hyperlipidemia) Status: Chronic Qualifiers: Hyperlipidemia type: mixed hyperlipidemia Qualified Code(s): E78.2 - Mixed hyperlipidemia (4) Diabetes mellitus Status: Chronic Qualifiers: Diabetes mellitus type: type 2 Diabetes mellitus usp insulin use: with usp use Diabetes mellitus complication status: with skin complications Diabetes mellitus complication detail: with other skin complication Qualified Code(s): E11.628 - Type 2 diabetes mellitus with other skin complications; Z79.4 - assisted (current) use of insulin (5) Morbid obesity Status: Chronic (6) REGINALD on CPAP Status: Chronic Infectious Disease HPI - Data of Consult Patient: known to practice within the last 3 years Consult date: 11/20/17 Requesting Physician: Casimiro Becker Primary Care Provider: Jc Tsai MD - Consult Narrative Reason for consult: No improvement in previously treated cellulitis/foot ulcerations History of present illness: Ms. Magallanes is a 57 year old female who arrived to the hospital on 11/18/17 with chief complaint of bilateral lower leg swelling, skin redness. ID was consulted on 11/20/17 because her previously treated cellulitis had not been improving. She reported bilateral lower extremity swelling for several weeks. Patient has a past medical history of poorly controlled diabetes, hypertension, REGINALD, diastolic CHF, morbid obesity. Patient was recently in the hospital from -11/15/17 after being treated for bilateral lower extremity cellulitis. Based upon cultures, she was being treated with ampicillin and Levaquin. Her wound cultures during her lofted mission were positive forCitrobacter freundii, Serratia marcescens, Enterococcous species. Patient was discharged on oral ampicillin and oral Levaquin, and these were to be continued through 11/25/17. During her last hospitalization, her ESR was >130, and CRP was 74, so there was suspicion for osteomyelitis, but bilateral LE CT did not show evidence of osteomyelitis. She states that before coming to the hospital, her left knee gave out and she fell on her knee so she called the squad. Patient did not have any other symptoms, and states that her lower extremity cellulitis is about the same as it was during her hospitalization. She denied having nausea, vomiting, diarrhea, fever, chills, chest pain, shortness of breath. Upon arrival to the hospital vitals were as follows: temperature 98.3, heart rate 78 , respirations 16, blood pressure 121/56, oxygen saturation 93% on 2 L. WBC was 13.2, hemoglobin 10, ESR >130, creatinine 1.55, lactic acid 1.2, BNP 109. Chest x-ray showed cardiomegaly, mild vascular congestion. Left knee x-ray showed no osseous abnormality, right tibia and fibula x-ray showed no acute abnormality Cultures X2 are preliminary negative. Patient is currently on Zosyn day 2, doxycycline day 2. Today, patient denies nausea, vomiting, diarrhea, fever, chills, chest pain, shortness of breath. She reports bilateral knee pain CC: Casimiro Becker Past Med Surg Social Fam HX - Past Medical History Medical history: CHF, diabetes, hypertension, other Psychiatric history: depression - Past Surgical History Surgical History: hysterectomy, other - Social History Smoking Status: Never smoker Smokeless Tobacco Status: No Alcohol use: none Drug use: none - Family History Mother Adopted: [place]: Selena Robbins Age: 50 Family Member Ethnicity: Non- Living Status: Age at : 50 Cause of : Unknown Hx Family Endocrine Disorder: Yes (diabetes type 2) Father Adopted: [place]: Iftikhar Robbins Age: 60 Family Member Ethnicity: Non- Living Status: Age at : 60 Cause of : Kidney disease Hx Family Cardiac Disorders: Yes (hypertension) Hx Family Respiratory Disorders: No Hx Family Cancer: No Hx Family GI Disorders: No Hx Family Endocrine Disorder: Yes (kidney disease) Infectious Disease-CN:Meds Atorvastatin [Lipitor] 40 mg PO HS 01/11/16 [History] Insulin ASPART [Novolog Flexpen] 6 - 14 unit SQ TID 01/11/16 [History] Insulin Glargine,Hum.rec.anlog [Lantus Solostar] 100 unit SQ BID 01/11/16 [ History] Latanoprost [Xalatan] 1 drop BOTH EYES HS 01/11/16 [History] Primidone [Mysoline] 25 - 50 mg PO BID PRN 01/11/16 [History] clonazePAM [Klonopin] 0.5 mg PO BID PRN 01/11/16 [History] Acetaminophen [Tylenol] 650 mg PO Q6HR PRN #0 tablet 01/12/16 [Rx] Ascorbic Acid [Vitamin C] 500 mg PO BID 03/25/16 [History] Docusate Sodium [Colace] 200 mg PO BID 03/25/16 [History] Furosemide [Lasix] 40 mg PO BID 12/06/16 [History] Pregabalin [Lyrica] 75 mg PO BID 12/06/16 [History] Potassium Chloride [K-Tab ER] 20 meq PO TID #0 12/08/16 [Rx] Fluticasone Propionate Nasal [Flonase] 2 spray NS DAILY #1 bottle 08/28/17 [Rx] Guaifenesin [Guaifenesin ER] 600 mg PO BID PRN #20 tab.er.12h 08/28/17 [Rx] Benzonatate [Tessalon] 100 mg PO TID #30 capsule 10/03/17 [Rx] Brimonidine Tartrate/Timolol [Combigan 0.2%-0.5% Eye Drops] 1 drop OP BID [History] Diltiazem HCl [Diltiazem 12Hr ER] 120 mg PO DAILY 11/10/17 [History] Esomeprazole Magnesium [Nexium] 40 mg PO DAILY 11/10/17 [History] Gentamicin Oint [Garamycin] 1 appl TP BID 11/10/17 [History] Ketoconazole 2% CRM [Nizoral Cream] 1 appl TP DAILY 11/10/17 [History] Ketorolac Tromethamine 1 drop OP QID 11/10/17 [History] Losartan Potassium [Cozaar] 100 mg PO DAILY 11/10/17 [History] Ampicillin Trihydrate 1,000 mg PO Q6H 10 Days #40 capsule 11/15/17 [Rx] Carvedilol [Coreg] 3.125 mg PO BIDWM #30 tablet 11/15/17 [Rx] Gauze Bandage [Rolled Gauze] 20 each TP DAILY #20 bandage 11/15/17 [Rx] levoFLOXacin [Levaquin] 750 mg PO DAILY 10 Days #10 tablet 11/15/17 [Rx] Tizanidine HCl 4 mg PO TID 11/20/17 [History] 3 Allergy/AdvReac Type Severity Reaction Status Date / Time lisinopril [From Zestril] Allergy Rash Verified 11/20/17 10:05 All systems: reviewed and no additional remarkable complaints except as stated Exam - Constitutional Vitals: Temp Pulse Resp BP Pulse Ox 98.3 F 76 16 128/68 94 11/20/17 06:34 11/20/17 06:34 11/20/17 06:34 11/20/17 06:34 11/20/17 08:12 General appearance: disheveled, morbidly obese, no acute distress - Respiratory Respiratory exam: Present: decreased breath sounds, wheezes - Cardiovascular Cardiovascular exam: Present: RRR, +S1, +S2 - GI/Abdominal GI/Abdominal exam: Present: distended, normal bowel sounds, soft. Absent: tenderness - Extremities Exam Additional comments: Bilateral lower extremity erythema present from below the knee to the ankle with +1 pitting edema. Left foot has an ulcer of the great toe that is healing , grade 2 [id number] at the heel of the right foot with extensive pustular material leaking form the wound. Left foot has healing ulcer present at the great toe, healing ulcers present on the lateral aspect of the foot Infectious Disease CN: Results - Labs CBC & Chem 7: 11/20/17 09:11 11/20/17 09:11 Consult Discharge Plan - Plan Referrals: Jc Tsai MD [Primary Care Provider] - - Attending Attestation I examined this patient and my medical decision-making was reviewed with the Resident Physician. I agree with the documented findings, disposition and treatment plan as described except to the extent set forth below. Ms. Magallanes is a 57 year old female who arrived to the hospital on 11/18/17 with chief complaint of bilateral lower leg swelling, skin redness. ID was consulted on 11/20/17 because her previously treated cellulitis had not been improving. She reported bilateral lower extremity swelling for several weeks. Patient is a 57-year-old woman that is well-known to my service was recently seen by us because of bilateral lower extremity edema and venous stasis dermatitis. At that time based on culture from November 12, patient grew Citrobacter freundii, Serratia marcescens and enterococcus species. Results with decided to treat with levofloxacin and amoxicillin and discharged home to finish a 14 day course. At that time patient did have a CT lower extremity bilateral which read as diffuse subcutaneous fat stranding and skin thickening in the bilateral lower extremities compatible with cellulitis versus lymphedema. There was no drainable fluid collection. There was an acute minimally displaced extra-articular left fifth metatarsal base fracture. Since admission patient has been afebrile, hemodynamically stable, no tachycardia, WBC of 13.2 thousand with 85% neutrophils. ESR was checked and was over 130. Creatinine was also 1.55 which is higher than her baseline. Lactic acid was normal. Blood cultures were obtained and are no growth. X- rays of the tibia and fibula on the right showed no acute osseous abnormality. X-ray of the knee on the left shows no acute osseous abnormalities and a chest x -ray was done which revealed mild vascular congestion improved from 11/13/17. Assessment and plan: Bilateral lower extremities edema and erythema: Not sure if this is cellulitis versus venous stasis. Recent previous CTs of the lower extremities were nonconclusive. My only concern that is the elevated ESR of 130. Previous cultures have grown Serratia, enterococcus species and Citrobacter. Patients symptoms persisted while on appropriate antibiotics including Levaquin and amoxicillin. I am not sure if there is an underlying bone infection versus other. I will contact dermatology to see if biopsy would distinguish cellulitis from contact dermatitis. Acute kidney injury: Creatinine clearance noted. Dose adjust antibiotics based on creatinine clearance.
--- NOTE | 2017-11-20 10:20 | Electrocardiograph Report ---
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
[2017-11-20] MEDS: Insulin DETEMIR 100 UNIT/ML X5UNITS SQ SCH ×2 (11:28→23:24)
--- NOTE | 2017-11-20 15:30 | Internal Med Progress Note ---
Date of Encounter: 11/20/17 Time of Encounter: 11:00 - Assessment and plan (1) Diabetic foot ulcer Current Visit: No Status: Acute Assessment and plan: Patient with bilateral heel decubitus ulcerations with drainage On recent admission (11/10/17) podiatry was consulted and performed bedside debridement of bilateral lower extremity wounds; wound cultures were positive for enterococcus, Citrobacter and Serratia. CT of lower extremities that admission showed diffuse subcutaneous fat stranding and skin thickening in the bilateral lower extremities compatible with cellulitis versus lymphedema and cute minimally displaced extra-articular left 5th metatarsal base fracture. Infectious disease was following with recommendations to continue Levaquin and ampicillin on discharge as an outpatient until 11/25/17 She returned to the ER on 11/18/17 with no improvement in foot ulcers. 11/20/17 On today's exam there continues to be purulent drainage of right heel ulcerated lesion Podiatry and infectious disease consulted and appreciate recommendations Will continue doxycycline and IV Zosyn started on admission Qualifiers: Diabetic foot ulcer location: midfoot Diabetes mellitus type: type 2 Laterality: right Non-pressure ulcer stage: limited to breakdown of skin Qualified Code(s): E11.621 - Type 2 diabetes mellitus with foot ulcer; L97.411 - Non-pressure chronic ulcer of right heel and midfoot limited to breakdown of skin; L97.411 - Non-pressure chronic ulcer of right heel and midfoot limited to breakdown of skin; L97.411 - Non-pressure chronic ulcer of right heel and midfoot limited to breakdown of skin; L97.411 - Non-pressure chronic ulcer of right heel and midfoot limited to breakdown of skin (2) Bilateral lower leg cellulitis Current Visit: No Status: Suspected Assessment and plan: Patient with bilateral lower extremity cellulitis Wlll continue doxycycline for now Infectious disease following an appreciate any recommendations (3) Sacral decubitus ulcer, stage III Current Visit: No Status: Acute Assessment and plan: Patient with history of decubitus sacral ulcer Wound care consulted and appreciate recommendations (4) Acute kidney injury Current Visit: Yes Status: Acute Assessment and plan: Patient with creatinine elevated from baseline; will continue to monitor (5) HTN (hypertension) Current Visit: No Status: Chronic Assessment and plan: Blood pressure controlled; continue home medications Qualifiers: Hypertension type: essential hypertension Qualified Code(s): I10 - Essential (primary) hypertension (6) Diabetes mellitus Current Visit: No Status: Chronic Assessment and plan: Continue basal and sliding-scale insulin coverage. 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 (current) use of insulin (7) Diastolic heart failure Current Visit: No Status: Chronic Assessment and plan: Patient appears euvolemic on exam Will continue home dose of furosemide Qualifiers: Heart failure chronicity: chronic Qualified Code(s): I50.32 - Chronic diastolic (congestive) heart failure (8) HLD (hyperlipidemia) Current Visit: No Status: Chronic Assessment and plan: Continue statin Qualifiers: Hyperlipidemia type: mixed hyperlipidemia Qualified Code(s): E78.2 - Mixed hyperlipidemia (9) Sleep apnea Current Visit: No Status: Acute Assessment and plan: Continue CPAP during night Qualifiers: Sleep apnea type: unspecified type Qualified Code(s): G47.30 - Sleep apnea , unspecified (10) Peripheral neuropathy due to metabolic disorder Current Visit: No Status: Chronic Assessment and plan: Will continue Lyrica (11) Morbid obesity Current Visit: No Status: Chronic Assessment and plan: BMI of 54.8 (12) DVT prophylaxis Current Visit: No Status: Acute Assessment and plan: Heparin subcutaneously - Time Spent With Patient Total time spent is greater than 50% in coordination of care (as documented) at patient's floor/unit and/or counseling patient: - Subjective Interval history: Patient reported on admission of no improvement in her lower extremity cellulitis since been discharged on 11/15/17 for the same This morning she continues to have drainage from previous ulcerations of her right foot which is through bandage and on bed sheets - Constitutional Vitals: Temp Pulse Resp BP Pulse Ox 98.5 F 81 16 119/77 95 11/20/17 10:14 11/20/17 10:14 11/20/17 10:14 11/20/17 10:14 11/20/17 10:14 General appearance: Present: A&O X 3, morbidly obese, no acute distress, answers questions appropriately - Cardiovascular Cardiovascular exam: Present: RRR, +S1, +S2. Absent: diastolic murmur, gallop, rubs, systolic murmur - Expanded Lower Extremities Exam Foot/Toe exam: Present: erythema (Patient with heel ulcerated lesion with purulent drainage) Internal Medicine: Result - Labs CBC & Chem 7: 11/20/17 09:11 11/20/17 09:11 Labs: Short CBC 11/19/17 11/20/17 Range/Units 14:58 09:11 WBC 11.3 H 11.4 H (4.3-11.1) K/mcL Hgb 9.2 L 10.2 L (11.5-15.4) g/dL Hct 30.4 L 34.2 L (35.3-44.9) % Plt Count 240 238 (140-400) K/mcL Neutrophils # 7.9 8.1 (1.6-8.9) K/mcL BMP 11/19/17 11/20/17 14:58 09:11 Sodium 143 144 Potassium 3.5 4.5 D Chloride 105 109 H Carbon Dioxide 32 H 30 H BUN 44 H 44 H Creatinine 1.44 H 1.48 H Glucose 68 L 88 Calcium 8.1 L 8.2 L Consult Discharge Plan - Plan Referrals: Jc Tsai MD [Primary Care Provider] -
[2017-11-20] MEDS: levoFLOXacin 750 MG TABLET PO SCH (15:47)
--- NOTE | 2017-11-20 17:11 | Podiatry Consult Note ---
Date of Encounter: 11/20/17 Time of Encounter: 12:30 Assessment and Plan (1) Ulcer of right heel Current visit: No Status: Acute Assessment: #1 Ivory grade 2 ulceration mixed etiology with pressure and venous insufficiency creating this wound. No clinical evidence of gross infection no ascending cellulitis lymphangitis odor purulence necrosis undermining sinus tract or tunneling. Plan: #1 continue local wound care, cleansing with soap and water then application to wound with Santyl, dry dressings and, compressive Cl wraps and Medix boot Qualifiers: Non-pressure ulcer stage: with fat layer exposed Qualified Code(s): L97.412 - Non-pressure chronic ulcer of right heel and midfoot with fat layer exposed (2) Ulcer of left heel Current visit: Yes Status: Acute Assessment: #1 Ivory grade 2 ulcer left heel complicated by diabetes pressure and venous insufficiency with lymphedema Plan: #1 local wound care with daily cleansing of ulceration with soap and water apply Santyl and dry sterile dressing followed by application of Cl wrap from base the toes to tibial tubercle done daily. Use of Medix offloading boots Qualifiers: Non-pressure ulcer stage: limited to breakdown of skin Qualified Code(s): L97.421 - Non-pressure chronic ulcer of left heel and midfoot limited to breakdown of skin (3) Venous ulcers of both lower extremities Current visit: No Status: Acute Assessment: #1 history of chronic venous insufficiency with ulcerations trophic changes and stasis dermatitis of both legs Plan: #1 cleanse both legs with mild soap and warm water pat dry apply emollients and then Cl wraps and the base the toes to tibial tubercle bilaterally, changed daily. History of Present Illness Chief complaint: Ongoing ulcerations of heels and superficial ulcers of great toes HPI: Ms. Magallanes is a 57 year old female, who is known to me from wound care clinic. She is a known diabetic under poor control with significant peripheral edema and lymphedema. Patient has history of a medial heel ulcer which was ultimately healed with local wound care and offloading. She was recently discharged from [facility] and then readmitted within 7 days for multiple comorbidities as outlined in history. I been consult for her lower extremity wounds. She is presently without nausea vomiting fever chills chest pain. Past Med Surg Social Fam HX - Past Medical History Source: patient, old records reviewed Medical history: CHF, diabetes, hypertension, venous stasis (Chronic venous insufficiency), other (Lymphedema) Psychiatric history: depression - Past Surgical History Surgical History: hysterectomy, other (Debridement of ulceration right heel) - Social History Smoking Status: Never smoker Smokeless Tobacco Status: No Alcohol use: none Drug use: none - Family History Mother Adopted: [place]: Selena Robbins Age: 50 Family Member Ethnicity: Non- Living Status: Age at : 50 Cause of : Unknown Hx Family Endocrine Disorder: Yes (diabetes type 2) Father Adopted: [place]: Iftikhar Robbins Age: 60 Family Member Ethnicity: Non- Living Status: Age at : 60 Cause of : Kidney disease Hx Family Cardiac Disorders: Yes (hypertension) Hx Family Respiratory Disorders: No Hx Family Cancer: No Hx Family GI Disorders: No Hx Family Endocrine Disorder: Yes (kidney disease) Medications and Allergies Atorvastatin [Lipitor] 40 mg PO HS 01/11/16 [History] Insulin ASPART [Novolog Flexpen] 6 - 14 unit SQ TID 01/11/16 [History] Insulin Glargine,Hum.rec.anlog [Lantus Solostar] 100 unit SQ BID 01/11/16 [ History] Latanoprost [Xalatan] 1 drop BOTH EYES HS 01/11/16 [History] Primidone [Mysoline] 25 - 50 mg PO BID PRN 01/11/16 [History] clonazePAM [Klonopin] 0.5 mg PO BID PRN 01/11/16 [History] Acetaminophen [Tylenol] 650 mg PO Q6HR PRN #0 tablet 01/12/16 [Rx] Ascorbic Acid [Vitamin C] 500 mg PO BID 03/25/16 [History] Docusate Sodium [Colace] 200 mg PO BID 03/25/16 [History] Furosemide [Lasix] 40 mg PO BID 12/06/16 [History] Pregabalin [Lyrica] 75 mg PO BID 12/06/16 [History] Potassium Chloride [K-Tab ER] 20 meq PO TID #0 12/08/16 [Rx] Fluticasone Propionate Nasal [Flonase] 2 spray NS DAILY #1 bottle 08/28/17 [Rx] Guaifenesin [Guaifenesin ER] 600 mg PO BID PRN #20 tab.er.12h 08/28/17 [Rx] Benzonatate [Tessalon] 100 mg PO TID #30 capsule 10/03/17 [Rx] Brimonidine Tartrate/Timolol [Combigan 0.2%-0.5% Eye Drops] 1 drop OP BID [History] Diltiazem HCl [Diltiazem 12Hr ER] 120 mg PO DAILY 11/10/17 [History] Esomeprazole Magnesium [Nexium] 40 mg PO DAILY 11/10/17 [History] Gentamicin Oint [Garamycin] 1 appl TP BID 11/10/17 [History] Ketoconazole 2% CRM [Nizoral Cream] 1 appl TP DAILY 11/10/17 [History] Ketorolac Tromethamine 1 drop OP QID 11/10/17 [History] Losartan Potassium [Cozaar] 100 mg PO DAILY 11/10/17 [History] Ampicillin Trihydrate 1,000 mg PO Q6H 10 Days #40 capsule 11/15/17 [Rx] Carvedilol [Coreg] 3.125 mg PO BIDWM #30 tablet 11/15/17 [Rx] Gauze Bandage [Rolled Gauze] 20 each TP DAILY #20 bandage 11/15/17 [Rx] levoFLOXacin [Levaquin] 750 mg PO DAILY 10 Days #10 tablet 11/15/17 [Rx] Tizanidine HCl 4 mg PO TID 11/20/17 [History] 3 Allergy/AdvReac Type Severity Reaction Status Date / Time lisinopril [From Zestril] Allergy Rash Verified 11/20/17 10:05 All Systems Reviewed: The remainder of the systems were reviewed and are negative. She is without fever nausea vomiting chills chest pain. Patient does not presently complaining of bowel or bladder dysfunction. - Constitutional Constitutional: frequent falls - Cardiovascular Cardiovascular: dyspnea on exertion, leg edema, leg ulcers, pedal edema - Respiratory Respiratory: dyspnea on exertion - Musculoskeletal Musculoskeletal: abnormal gait, muscle weakness, numbness, tingling Physical Exam - Constitutional Vitals: Temp Pulse Resp BP Pulse Ox 98.7 F 77 16 152/83 90 11/20/17 16:32 11/20/17 16:32 11/20/17 16:32 11/20/17 16:32 11/20/17 16:32 General appearance: disheveled, morbidly obese, no acute distress - Extremities Exam Extremities exam: Present: pedal edema - Skin Skin exam: Present: dry (Patient exhibits trophic changes and xerotic skin associated with chronic venous insufficiency/lymphedema and changes associated with stasis dermatitis of both legs but no jose open venous ulcerations at this point we do appreciate ulcerations pressure wounds on the posterior plantar aspect of both heels and superficial abrasions to the distal aspects of both great toes.) - Vascular Capillary Refill: less than 3 seconds Results - Labs Result Diagrams: 11/20/17 09:11 11/20/17 09:11 Labs: Abnormal lab results WBC 11.4 K/mcL (4.3-11.1) H 11/20/17 09:11 Hgb 10.2 g/dL (11.5-15.4) L 11/20/17 09:11 Hct 34.2 % (35.3-44.9) L 11/20/17 09:11 MCV 81.8 fL (83.0-100.0) L 11/20/17 09:11 MCH 24.4 pg (28.0-33.3) L 11/20/17 09:11 MCHC 29.8 g/dL (31.6-35.5) L 11/20/17 09:11 RDW 15.0 % (11.5-14.5) H 11/20/17 09:11 MPV 12.5 fL (9.4-12.4) H 11/20/17 09:11 Nucleated RBCs/100 WBC 0.2 /100 WBC (0) H 11/20/17 09:11 ESR >= 130 mm/hr (0-15) H 11/18/17 19:09 Chloride 109 mEq/L (98-107) H 11/20/17 09:11 Carbon Dioxide 30 mEq/L (23-29) H 11/20/17 09:11 BUN 44 mg/dL (6-20) H 11/20/17 09:11 Creatinine 1.48 mg/dL (0.60-1.20) H 11/20/17 09:11 Est GFR ( Amer) 44 (> 60) L 11/20/17 09:11 Est GFR (Non-Af Amer) 36 (> 60) L 11/20/17 09:11 BUN/Creatinine Ratio 30 (6-26) H 11/20/17 09:11 Calculated Osmolality 309 (280-300) H 11/20/17 09:11 Calcium 8.2 mg/dL (8.6-10.3) L 11/20/17 09:11 B-Natriuretic Peptide 109 pg/mL (Less than 100) H 11/18/17 19:09 H & H 11/20/17 Range/Units 09:11 Hgb 10.2 L (11.5-15.4) g/dL Hct 34.2 L (35.3-44.9) % All other labs normal. Consult Discharge Plan - Plan Referrals: Jc Tsai MD [Primary Care Provider] -
[2017-11-20] MEDS: Amoxicillin 500 MG CAPSULE PO SCH ×2 (17:13→22:50)
[2017-11-20] MEDS: Latanoprost 2.5 ML BOTTLE BOTH EYES SCH (20:09)
[2017-11-21] MEDS: Insulin LISPRO 300 UNITS/3 ML VIAL SQ SCH ×4 (09:10→21:34)
[2017-11-21] MEDS: Pregabalin 75 MG CAPSULE PO SCH ×2 (09:10→21:32)
[2017-11-21] MEDS: Amoxicillin 500 MG CAPSULE PO SCH ×3 (09:11→21:32)
[2017-11-21] MEDS: Diltiazem CD (24hr) 120 MG CAPSULE PO SCH (09:11)
[2017-11-21] MEDS: levoFLOXacin 750 MG TABLET PO SCH (09:11)
[2017-11-21] MEDS: Benzonatate 100 MG CAPSULE PO SCH ×3 (09:11→21:33)
[2017-11-21] MEDS: Ascorbic Acid 500 MG TABLET PO SCH ×2 (09:11→21:32)
[2017-11-21] MEDS: Furosemide 40 MG TABLET PO SCH ×2 (09:11→21:32)
[2017-11-21] MEDS: *HR* Heparin 5,000 UNIT/ML VIAL SQ SCH ×3 (09:12→23:17)
[2017-11-21] MEDS: Fluticasone Propionate Nasal 50 MCG/SPRAY BOTTLE NS SCH (09:13)
--- NOTE | 2017-11-21 10:23 | Internal Med Progress Note ---
Date of Encounter: 11/21/17 Time of Encounter: 10:00 - Assessment and plan (1) Diabetic foot ulcer Current Visit: Yes Status: Acute Assessment and plan: Bilateral heel ulcers-decubitus and diabetic. Continue current management per podiatric recommendations. Offloading ulcers with medix boot. Continue current antibiotics. Qualifiers: Diabetic foot ulcer location: midfoot Diabetes mellitus type: type 2 Laterality: right Non-pressure ulcer stage: limited to breakdown of skin Qualified Code(s): E11.621 - Type 2 diabetes mellitus with foot ulcer; L97.411 - Non-pressure chronic ulcer of right heel and midfoot limited to breakdown of skin; L97.411 - Non-pressure chronic ulcer of right heel and midfoot limited to breakdown of skin; L97.411 - Non-pressure chronic ulcer of right heel and midfoot limited to breakdown of skin; L97.411 - Non-pressure chronic ulcer of right heel and midfoot limited to breakdown of skin (2) Bilateral lower leg cellulitis Current Visit: Yes Status: Suspected Assessment and plan: Cellulitis versus dermatitis. Infectious disease following. Recommend continuing amoxicillin and levofloxacin based on wound cultures during last hospitalization. Repeat wound cultures ordered. Will follow results. (3) Diabetes mellitus Current Visit: Yes Status: Chronic Assessment and plan: Better controlled this morning. 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 We will increase carvedilol dosage. Continue to monitor blood pressure closely. Qualifiers: Hypertension type: essential hypertension Qualified Code(s): I10 - Essential (primary) hypertension (6) HLD (hyperlipidemia) Current Visit: Yes Status: Chronic Assessment and plan: Continue Lipitor Qualifiers: Hyperlipidemia type: mixed hyperlipidemia Qualified Code(s): E78.2 - Mixed hyperlipidemia (7) Peripheral neuropathy due to metabolic disorder Current Visit: Yes Status: Chronic Assessment and plan: Continue Lyrica (8) Sacral decubitus ulcer, stage III Current Visit: Yes Status: Acute Assessment and plan: Continue local wound care. Pressure ulcer prophylactic measures. Patient would benefit from placement to skilled rehabilitation for further management of her chronic medical issues and ulcers. Patient denies agreement with this plan. hoist worker consulted. We will make arrangements for discharge to rehabilitation when medically stable. (9) Diastolic heart failure Current Visit: Yes Status: Chronic Assessment and plan: Not in acute exacerbation. Continue Lasix. Qualifiers: Heart failure chronicity: chronic Qualified Code(s): I50.32 - Chronic diastolic (congestive) heart failure (10) Sleep apnea Current Visit: No Status: Acute Assessment and plan: CPAP use at night and while sleeping. Qualifiers: Sleep apnea type: unspecified type Qualified Code(s): G47.30 - Sleep apnea , unspecified (11) Acute kidney injury Current Visit: Yes Status: Acute Assessment and plan: Renal function appears to be stable. Patient may have underlying chronic kidney disease related to diabetes. Will follow renal function closely. For now continue Lasix and losartan. (12) DVT prophylaxis Current Visit: No Status: Acute Assessment and plan: With subcutaneous heparin - Time Spent With Patient Total time spent is greater than 50% in coordination of care (as documented) at patient's floor/unit and/or counseling patient: - Subjective Interval history: Patient is awake and alert. Lying in bed. Does have bilateral lower extremity neuropathy pain which is chronic. No fever reported overnight. Patient is presently willing to go to go to rehabilitation if needed. - Constitutional Vitals: Temp Pulse Resp BP Pulse Ox 98.7 F 80 18 157/71 96 11/21/17 07:41 11/21/17 07:41 11/21/17 07:41 11/21/17 07:41 11/21/17 09:31 General appearance: Present: A&O X 3, morbidly obese, no acute distress, answers questions appropriately - Neck Neck exam general surgery: Present: supple, trachea midline. Absent: lymphadenopathy - Respiratory Respiratory exam: Present: CTAB. Absent: accessory muscle use, rales, rhonchi, wheezes - Cardiovascular Cardiovascular exam: Present: RRR, +S1, +S2. Absent: diastolic murmur, gallop, rubs, systolic murmur - GI/Abdominal GI/Abdominal exam: Present: normal bowel sounds, soft, no peritoneal signs. Absent: distended, tenderness - Extremities Exam Extremities exam: Present: warm, radial pulses palpable and symmetrical. Absent : calf tenderness, cyanotic, pedal edema Additional comments: Both lower extremity wounds bandaged. In Medix boots - Neurological Exam Neurological exam: Present: alert, oriented X3, no focal deficits. Absent: facial droop, speech deficit - Skin Skin exam: Present: dry, intact Internal Medicine: Result - Labs CBC & Chem 7: 11/20/17 09:11 11/20/17 09:11 Consult Discharge Plan - Plan Referrals: Jc Tsai MD [Primary Care Provider] -
[2017-11-21] MEDS: Insulin DETEMIR 100 UNIT/ML X5UNITS SQ SCH ×2 (13:05→23:17)
--- NOTE | 2017-11-21 13:17 | Infectious Disease Progress No ---
Date of Encounter: 11/21/17 Time of Encounter: 13:15 - Assessment and Plan (1) Bilateral lower leg cellulitis Current Visit: Yes Status: Suspected Patient met one SIRS criteria upon admission during her last hospital admission, she was discharged on oral Levaquin and ampicillin-and was to be treated through 11/25/17 during prior admission, wound cultures positive for Citrobacter Freundii, Serratia Marcescens, Enterococcous species. ESR>130 lactic acid: 1.2 11/19/17: preliminary blood cultures x2 preliminary negative creatinine clearance 54 Plan: unclear if her cellulitis is actually getting worse, as she had only one SIRS criteria upon admission, WBC is not significantly elevated. Cellulitis vs. Venous stasis. patient received 2 days doxycycline-stopped 11/20 received 2 days Zosyn -stopped 11/20 recommend continued wound care and glycemic control. contine levaquin PO continue Amoxicillin PO repeat wound culture pending continued wound care (2) HTN (hypertension) Current Visit: Yes Status: Chronic per primary Qualifiers: Hypertension type: essential hypertension Qualified Code(s): I10 - Essential (primary) hypertension (3) HLD (hyperlipidemia) Current Visit: Yes Status: Chronic Qualifiers: Hyperlipidemia type: mixed hyperlipidemia Qualified Code(s): E78.2 - Mixed hyperlipidemia (4) Diabetes mellitus Current Visit: Yes Status: Chronic Continue with aggressive glucose control. Management per primary team. 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 She was sitting up in the chair. She denies nausea, vomiting, diarrhea, fever, chills, chest pain, shortness of breath. Infect Dis PN-Objective Data - Labs CBC & Chem 7: 11/20/17 09:11 11/20/17 09:11 Labs: Laboratory Results - last 24 hr 11/20/17 11/21/17 11/21/17 20:32 07:46 12:01 POC Glucose 197 H 96 85 Cultures: Cultures 11/19/17 03:52 Blood Culture - Preliminary Peripheral Venipuncture No growth. Exam - Constitutional Vitals: Temp Pulse Resp BP Pulse Ox 97.8 F 71 18 132/77 97 11/21/17 11:37 11/21/17 11:37 11/21/17 11:37 11/21/17 11:37 11/21/17 11:37 - Head Head exam: Present: atraumatic, normocephalic - Respiratory Respiratory exam: Present: decreased breath sounds - Cardiovascular Cardiovascular exam: Present: RRR, +S1, +S2 - GI/Abdominal GI/Abdominal exam: Present: distended, normal bowel sounds, soft. Absent: tenderness - Extremities Exam Additional comments: Bilateral lower extremities wrapped. Bilateral lower extremity erythema present from below the knee to the ankle. +1 bilateral lower extremity pitting edema present. - Neurological Exam Neurological exam: Present: alert, oriented X3 - Psychiatric Psychiatric exam: Present: normal affect, normal mood Consult Discharge Plan - Plan Referrals: Jc Tsai MD [Primary Care Provider] - - Attending Attestation I examined this patient and my medical decision-making was reviewed with the Resident Physician. I agree with the documented findings, disposition and treatment plan as described except to the extent set forth below.
[2017-11-21] MEDS: Acetaminophen 325 MG TABLET PO PRN ×2 (15:50→23:18)
[2017-11-21] MEDS: Miconazole w/zinc oxide&karaya 92 APPL/92 GM TUBE TP SCH ×2 (15:53→21:39)
[2017-11-21] MEDS: Latanoprost 2.5 ML BOTTLE BOTH EYES SCH (21:51)
[2017-11-22 00:58] LABS: Basophils # 0.1 K/mcL (0.0-0.2); Basophils % 0.5 %; Eosinophils # 0.3 K/mcL (0.0-0.6); Eosinophils % 2.7 %; Hematocrit 31.4 % (35.3-44.9); Hemoglobin 9.5 g/dL (11.5-15.4); Immature Granulocytes % 0.5 % (0-4); Lymphocytes # 2.5 K/mcL (0.6-4.6); Lymphocytes % 22.9 %; Mean Corpuscular HGB Conc 30.3 g/dL (31.6-35.5); Mean Corpuscular Hemoglobin 24.6 pg (28.0-33.3); Mean Corpuscular Volume 81.3 fL (83.0-100.0); Mean Platelet Volume 12.5 fL (9.4-12.4); Monocytes # 0.7 K/mcL (0.0-1.3); Monocytes % 6.4 %; Neutrophils # 7.4 K/mcL (1.6-8.9); Platelet Count 239 K/mcL (140-400); Red Blood Count 3.86 M/mcL (3.82-4.97)
[2017-11-22 01:16] LABS: Calcium 8.3 mg/dL (8.6-10.3); Potassium 4.4 mEq/L (3.5-5.1)
[2017-11-22] MEDS: Insulin LISPRO 300 UNITS/3 ML VIAL SQ SCH ×4 (08:24→23:27)
[2017-11-22] MEDS: Diltiazem CD (24hr) 120 MG CAPSULE PO SCH (08:36)
[2017-11-22] MEDS: Pregabalin 75 MG CAPSULE PO SCH ×2 (08:36→23:25)
[2017-11-22] MEDS: Ascorbic Acid 500 MG TABLET PO SCH ×2 (08:36→23:25)
[2017-11-22] MEDS: Benzonatate 100 MG CAPSULE PO SCH ×3 (08:36→23:26)
[2017-11-22] MEDS: Amoxicillin 500 MG CAPSULE PO SCH ×3 (08:36→23:26)
[2017-11-22] MEDS: levoFLOXacin 750 MG TABLET PO SCH (08:37)
[2017-11-22] MEDS: Fluticasone Propionate Nasal 50 MCG/SPRAY BOTTLE NS SCH (08:37)
[2017-11-22] MEDS: Furosemide 40 MG TABLET PO SCH ×2 (08:37→23:25)
[2017-11-22] MEDS: *HR* Heparin 5,000 UNIT/ML VIAL SQ SCH ×3 (08:37→23:26)
[2017-11-22] MEDS: Miconazole w/zinc oxide&karaya 92 APPL/92 GM TUBE TP SCH ×2 (08:37→23:27)
--- NOTE | 2017-11-22 10:25 | Infectious Disease Progress No ---
Date of Encounter: 11/22/17 Time of Encounter: 10:23 - Assessment and Plan (1) Bilateral lower leg cellulitis Current Visit: Yes Status: Suspected Patient met one SIRS criteria upon admission during her last hospital admission, she was discharged on oral Levaquin and ampicillin-and was to be treated through 11/25/17 during prior admission, wound cultures positive for Citrobacter Freundii, Serratia Marcescens, Enterococcous species. ESR>130 lactic acid: 1.2 11/19/17: preliminary blood cultures x2 preliminary negative creatinine clearance 54 Plan: unclear if her cellulitis is actually getting worse, as she had only one SIRS criteria upon admission, WBC is not significantly elevated. Cellulitis vs. Venous stasis. patient received 2 days doxycycline-stopped 11/20 received 2 days Zosyn -stopped 11/20 recommend continued wound care and glycemic control. contine levaquin PO continue Amoxicillin PO repeat wound culture pending continued wound care per podiatry needs outpatient follow up with dermatology to determine if biopsy will distinguish cellulitis vs. contact dermatitis. (2) HTN (hypertension) Current Visit: Yes Status: Chronic per primary Qualifiers: Hypertension type: essential hypertension Qualified Code(s): I10 - Essential (primary) hypertension (3) HLD (hyperlipidemia) Current Visit: Yes Status: Chronic Qualifiers: Hyperlipidemia type: mixed hyperlipidemia Qualified Code(s): E78.2 - Mixed hyperlipidemia (4) Diabetes mellitus Current Visit: Yes Status: Chronic Continue with aggressive glucose control. Management per primary team. Qualifiers: Diabetes mellitus type: type 2 Diabetes mellitus group home insulin use: with intermediate card tender use Diabetes mellitus complication status: with skin complications Diabetes mellitus complication detail: with other skin complication Qualified Code(s): E11.628 - Type 2 diabetes mellitus with other skin complications; Z79.4 - long-term (current) use of insulin (5) Morbid obesity Current Visit: Yes Status: Chronic (6) REGINALD on CPAP Current Visit: No Status: Chronic - Subjective Interval history: 57-year-old female evaluated. She was sitting up in the bed. She denies nausea , vomiting, diarrhea, fever, chills, chest pain, shortness of breath. Infect Dis PN-Objective Data - Labs CBC & Chem 7: 11/22/17 00:44 11/22/17 00:44 Labs: Laboratory Results - last 24 hr 11/20/17 11/20/1718 07:14 11:11 16:00 WBC RBC Hgb Hct MCV MCH MCHC RDW Plt Count MPV Immature Gran % Seg Neutrophils % Lymphocytes % Monocytes % Eosinophils % Basophils % Neutrophils # Lymphocytes # Monocytes # Eosinophils # Basophils # Sodium Potassium Chloride Carbon Dioxide BUN Creatinine Est GFR ( Amer) Est GFR (Non-Af Amer) BUN/Creatinine Ratio Glucose POC Glucose 87 90 143 H Calculated Osmolality Calcium 11/21/17 11/21/17 11/22/17 12:01 15:20 00:44 WBC 11.1 RBC 3.86 Hgb 9.5 L Hct 31.4 L MCV 81.3 L MCH 24.6 L MCHC 30.3 L RDW 15.0 H Plt Count 239 MPV 12.5 H Immature Gran % 0.5 Seg Neutrophils % 67.0 Lymphocytes % 22.9 Monocytes % 6.4 Eosinophils % 2.7 Basophils % 0.5 Neutrophils # 7.4 Lymphocytes # 2.5 Monocytes # 0.7 Eosinophils # 0.3 Basophils # 0.1 Sodium Potassium Chloride Carbon Dioxide BUN Creatinine Est GFR ( Amer) Est GFR (Non-Af Amer) BUN/Creatinine Ratio Glucose POC Glucose 85 132 H Calculated Osmolality Calcium 11/22/17 11/22/17 11/22/17 00:44 07:09 07:11 WBC RBC Hgb Hct MCV MCH MCHC RDW Plt Count MPV Immature Gran % Seg Neutrophils % Lymphocytes % Monocytes % Eosinophils % Basophils % Neutrophils # Lymphocytes # Monocytes # Eosinophils # Basophils # Sodium 143 Potassium 4.4 Chloride 108 H Carbon Dioxide 31 H BUN 39 H Creatinine 1.34 H Est GFR ( Amer) 50 L Est GFR (Non-Af Amer) 41 L BUN/Creatinine Ratio 29 H Glucose 115 H POC Glucose 46 L* 46 L* Calculated Osmolality 306 H Calcium 8.3 L 11/22/17 08:23 WBC RBC Hgb Hct MCV MCH MCHC RDW Plt Count MPV Immature Gran % Seg Neutrophils % Lymphocytes % Monocytes % Eosinophils % Basophils % Neutrophils # Lymphocytes # Monocytes # Eosinophils # Basophils # Sodium Potassium Chloride Carbon Dioxide BUN Creatinine Est GFR ( Amer) Est GFR (Non-Af Amer) BUN/Creatinine Ratio Glucose POC Glucose 51 L Calculated Osmolality Calcium Cultures: Cultures 11/19/17 03:52 Blood Culture - Preliminary Peripheral Venipuncture No growth. Exam - Constitutional Vitals: Temp Pulse Resp BP Pulse Ox 98.2 F 71 16 145/71 94 11/22/17 06:28 11/22/17 06:28 11/22/17 06:28 11/22/17 06:28 11/22/17 06:28 General appearance: morbidly obese, no acute distress - Head Head exam: Present: atraumatic, normocephalic - Respiratory Respiratory exam: Present: CTAB - Cardiovascular Cardiovascular exam: Present: RRR, +S1, +S2 - GI/Abdominal GI/Abdominal exam: Present: distended, normal bowel sounds, soft. Absent: tenderness - Extremities Exam Additional comments: bilateral lower extremities wrapped, bilateral lower extremity edema present. bilateral lower extremity erythema present from below the knee to the ankle. - Neurological Exam Neurological exam: Present: alert, oriented X3 - Psychiatric Psychiatric exam: Present: normal affect, normal mood Consult Discharge Plan - Plan Referrals: Jc Tsai MD [Primary Care Provider] - - Attending Attestation I examined this patient and my medical decision-making was reviewed with the Resident Physician. I agree with the documented findings, disposition and treatment plan as described except to the extent set forth below.
--- NOTE | 2017-11-22 13:15 | Internal Med Progress Note ---
Date of Encounter: 11/22/17 Time of Encounter: 09:15 - Assessment and plan (1) Diabetic foot ulcer Current Visit: Yes Status: Acute Assessment and plan: With possible superficial cellulitis. Being treated with amoxicillin and Levaquin. Wound culture sent. Awaiting results. Infectious disease following. Podiatry recommends local wound care. No surgical indication at this time. Qualifiers: Diabetic foot ulcer location: midfoot Diabetes mellitus type: type 2 Laterality: right Non-pressure ulcer stage: limited to breakdown of skin Qualified Code(s): E11.621 - Type 2 diabetes mellitus with foot ulcer; L97.411 - Non-pressure chronic ulcer of right heel and midfoot limited to breakdown of skin; L97.411 - Non-pressure chronic ulcer of right heel and midfoot limited to breakdown of skin; L97.411 - Non-pressure chronic ulcer of right heel and midfoot limited to breakdown of skin; L97.411 - Non-pressure chronic ulcer of right heel and midfoot limited to breakdown of skin (2) Bilateral lower leg cellulitis Current Visit: Yes Status: Suspected Assessment and plan: Cellulitis vs dermatitis. Will arrange for follow-up with dermatology after discharge for further evaluation. Continue amoxicillin and Levaquin. Follow wound culture results. (3) Diabetes mellitus Current Visit: Yes Status: Chronic Assessment and plan: With episode of hypoglycemia this morning. No changes to insulin regimen yesterday. Likely due to dietary changes. Will decrease Levemir dosage to 60 units twice daily. Continue sliding scale coverage. Monitor blood sugars closely. Qualifiers: Diabetes mellitus type: type 2 Diabetes mellitus retirement insulin use: with middle or intermediate school principal use Diabetes mellitus complication status: with skin complications Diabetes mellitus complication detail: with other skin complication Qualified Code(s): E11.628 - Type 2 diabetes mellitus with other skin complications; Z79.4 - intermediate (current) use of insulin (4) Morbid obesity Current Visit: Yes Status: Chronic (5) HTN (hypertension) Current Visit: Yes Status: Chronic Assessment and plan: Blood pressure is elevated today. Continue carvedilol, losartan. If persistently elevated today, will add hydralazine. Continue to monitor for now. Qualifiers: Hypertension type: essential hypertension Qualified Code(s): I10 - Essential (primary) hypertension (6) HLD (hyperlipidemia) Current Visit: Yes Status: Chronic Assessment and plan: Continue Lipitor Qualifiers: Hyperlipidemia type: mixed hyperlipidemia Qualified Code(s): E78.2 - Mixed hyperlipidemia (7) Peripheral neuropathy due to metabolic disorder Current Visit: Yes Status: Chronic Assessment and plan: Continue Lyrica. Symptoms are well controlled (8) Sacral decubitus ulcer, stage III Current Visit: Yes Status: Acute Assessment and plan: Local wound care. Frequent repositioning. Awaiting placement to skilled rehabilitation (9) Diastolic heart failure Current Visit: Yes Status: Chronic Assessment and plan: Not in acute exacerbation. Continue Lasix, losartan and carvedilol Qualifiers: Heart failure chronicity: chronic Qualified Code(s): I50.32 - Chronic diastolic (congestive) heart failure (10) Sleep apnea Current Visit: No Status: Acute Qualifiers: Sleep apnea type: unspecified type Qualified Code(s): G47.30 - Sleep apnea , unspecified (11) Acute kidney injury Current Visit: Yes Status: Acute Assessment and plan: Improving. Creatinine 1.34 today. Patient likely has chronic kidney disease due to diabetes mellitus. (12) DVT prophylaxis Current Visit: Yes Status: Acute Assessment and plan: On subcutaneous heparin - Time Spent With Patient Total time spent is greater than 50% in coordination of care (as documented) at patient's floor/unit and/or counseling patient: - Subjective Interval history: Patient is awake and alert. Blood sugars were low this morning but patient denies any symptoms. No dizziness or lightheadedness. No excessive sweating or palpitations. She did breakfast. Pain in her lower extremities is well controlled. No nausea or vomiting. No fever reported overnight. - Constitutional Vitals: Temp Pulse Resp BP Pulse Ox 98.0 F 69 16 159/80 98 11/22/17 11:07 11/22/17 11:07 11/22/17 11:07 11/22/17 11:07 11/22/17 11:07 General appearance: Present: A&O X 3, morbidly obese, no acute distress, answers questions appropriately - Neck Neck exam general surgery: Present: supple, trachea midline. Absent: lymphadenopathy - Respiratory Respiratory exam: Present: CTAB. Absent: accessory muscle use, rales, rhonchi, wheezes - Cardiovascular Cardiovascular exam: Present: RRR, +S1, +S2. Absent: diastolic murmur, gallop, rubs, systolic murmur - GI/Abdominal GI/Abdominal exam: Present: normal bowel sounds, soft, no peritoneal signs. Absent: distended, tenderness - Extremities Exam Extremities exam: Present: warm, radial pulses palpable and symmetrical. Absent : calf tenderness, cyanotic, pedal edema Additional comments: Stasis dermatitis in lower extremities extending up to middle of her lower legs. Nontender to palpation. Not warm to touch. Foot ulcers is bandaged. - Neurological Exam Neurological exam: Present: alert, oriented X3, no focal deficits, strengths equal and symetr throughout. Absent: facial droop, speech deficit - Skin Skin exam: Present: dry, intact Internal Medicine: Result - Labs CBC & Chem 7: 11/22/17 00:44 11/22/17 00:44 Labs: Short CBC 11/22/17 Range/Units 00:44 WBC 11.1 (4.3-11.1) K/mcL Hgb 9.5 L (11.5-15.4) g/dL Hct 31.4 L (35.3-44.9) % Plt Count 239 (140-400) K/mcL Neutrophils # 7.4 (1.6-8.9) K/mcL BMP 11/22/17 00:44 Sodium 143 Potassium 4.4 Chloride 108 H Carbon Dioxide 31 H BUN 39 H Creatinine 1.34 H Glucose 115 H Calcium 8.3 L Consult Discharge Plan - Plan Referrals: Jc Tsai MD [Primary Care Provider] -
[2017-11-22] MEDS: Insulin DETEMIR 100 UNIT/ML X5UNITS SQ SCH (23:25)
[2017-11-22] MEDS: Latanoprost 2.5 ML BOTTLE BOTH EYES SCH (23:30)
[2017-11-23 02:31] LABS: BUN/Creatinine Ratio 33 (6-26); Blood Urea Nitrogen 37 mg/dL (6-20); Calcium 8.6 mg/dL (8.6-10.3); Carbon Dioxide 31 mEq/L (23-29); Chloride 105 mEq/L (98-107); Glucose 125 mg/dL (70-105); Osmolality,Calculated 306 (280-300); Potassium 4.4 mEq/L (3.5-5.1); Sodium 143 mEq/L (136-145); eGFR For African Americans > 60 (> 60); eGFR For Non-African Americans 50 (> 60)
[2017-11-23] MEDS: Insulin LISPRO 300 UNITS/3 ML VIAL SQ SCH ×5 (08:08→23:40)
[2017-11-23] MEDS: *HR* Heparin 5,000 UNIT/ML VIAL SQ SCH ×3 (08:17→23:41)
[2017-11-23] MEDS: Pregabalin 75 MG CAPSULE PO SCH ×2 (08:17→23:40)
[2017-11-23] MEDS: levoFLOXacin 750 MG TABLET PO SCH (08:17)
[2017-11-23] MEDS: Amoxicillin 500 MG CAPSULE PO SCH ×3 (08:17→23:40)
[2017-11-23] MEDS: Diltiazem CD (24hr) 120 MG CAPSULE PO SCH (08:17)
[2017-11-23] MEDS: Benzonatate 100 MG CAPSULE PO SCH ×3 (08:18→23:40)
[2017-11-23] MEDS: Furosemide 40 MG TABLET PO SCH ×2 (08:18→23:40)
[2017-11-23] MEDS: Fluticasone Propionate Nasal 50 MCG/SPRAY BOTTLE NS SCH (08:18)
[2017-11-23] MEDS: Ascorbic Acid 500 MG TABLET PO SCH ×2 (08:18→23:40)
[2017-11-23] MEDS: Miconazole w/zinc oxide&karaya 92 APPL/92 GM TUBE TP SCH ×2 (08:19→23:42)
[2017-11-23] MEDS: Insulin DETEMIR 100 UNIT/ML X5UNITS SQ SCH ×2 (08:19→23:41)
--- NOTE | 2017-11-23 10:50 | Infectious Disease Progress No ---
Date of Encounter: 11/23/17 Time of Encounter: 10:47 - Assessment and Plan (1) Bilateral lower leg cellulitis Status: Resolved Patient met one SIRS criteria upon admission during her last hospital admission, she was discharged on oral Levaquin and ampicillin-and was to be treated through 11/25/17 during prior admission, wound cultures positive for Citrobacter Freundii, Serratia Marcescens, Enterococcous species. ESR>130 lactic acid: 1.2 11/19/17: preliminary blood cultures x2 preliminary negative creatinine clearance 54 Plan: unclear if her cellulitis is actually getting worse, as she had only one SIRS criteria upon admission, WBC is not significantly elevated. Cellulitis vs. Venous stasis. patient received 2 days doxycycline-stopped 11/20 received 2 days Zosyn -stopped 11/20 recommend continued wound care and glycemic control. contine levaquin PO and Amoxicillin PO through 11 25 as originally planned. repeat wound culture pending continued wound care per podiatry needs outpatient follow up with dermatology to determine if biopsy will distinguish cellulitis vs. contact dermatitis. (2) HTN (hypertension) Status: Chronic per primary Qualifiers: Hypertension type: essential hypertension Qualified Code(s): I10 - Essential (primary) hypertension (3) HLD (hyperlipidemia) Status: Chronic Qualifiers: Hyperlipidemia type: mixed hyperlipidemia Qualified Code(s): E78.2 - Mixed hyperlipidemia (4) Diabetes mellitus Status: Chronic Continue with aggressive glucose control. Management per primary team. Qualifiers: Diabetes mellitus type: type 2 Diabetes mellitus exterminator insulin use: with exterminator use Diabetes mellitus complication status: with skin complications Diabetes mellitus complication detail: with other skin complication Qualified Code(s): E11.628 - Type 2 diabetes mellitus with other skin complications; Z79.4 - senior living (current) use of insulin (5) Morbid obesity Status: Chronic (6) REGINALD on CPAP Status: Chronic - Subjective Interval history: 57-year-old female evaluated. She was laying in bed. She denies nausea, vomiting, diarrhea, fever, chills, chest pain, shortness of breath. Infect Dis PN-Objective Data - Labs CBC & Chem 7: 11/24/17 01:00 11/24/17 01:00 Labs: Laboratory Results - last 24 hr 11/21/17 11/22/17 11/22/17 20:55 11:10 15:55 Sodium Potassium Chloride Carbon Dioxide BUN Creatinine Est GFR ( Amer) Est GFR (Non-Af Amer) BUN/Creatinine Ratio Glucose POC Glucose 128 H 103 H 101 H Calculated Osmolality Calcium 11/23/17 01:34 Sodium 143 Potassium 4.4 Chloride 105 Carbon Dioxide 31 H BUN 37 H Creatinine 1.12 Est GFR ( Amer) > 60 Est GFR (Non-Af Amer) 50 L BUN/Creatinine Ratio 33 H Glucose 125 H POC Glucose Calculated Osmolality 306 H Calcium 8.6 Cultures: Cultures 11/19/17 03:52 Blood Culture - Preliminary Peripheral Venipuncture No growth. Exam - Constitutional Vitals: Temp Pulse Resp BP Pulse Ox 98.8 F 78 17 150/79 93 11/23/17 07:24 11/23/17 07:24 11/23/17 07:24 11/23/17 07:24 11/23/17 07:24 General appearance: morbidly obese, no acute distress - Head Head exam: Present: atraumatic, normocephalic - Respiratory Respiratory exam: Present: CTAB - Cardiovascular Cardiovascular exam: Present: RRR, +S1, +S2 - GI/Abdominal GI/Abdominal exam: Present: distended, normal bowel sounds, soft - Extremities Exam Additional comments: Bilateral lower extremities wrapped. - Neurological Exam Neurological exam: Present: alert, oriented X3 - Psychiatric Psychiatric exam: Present: normal affect, normal mood Consult Discharge Plan - Plan Instructions: Cellulitis (DC), Diabetic Foot Care (DC), Diabetes Mellitus Type 2 in Adults (DC) Additional Instructions: Follow-up appointments: If there is not an appointment listed below, please call your physician and schedule a follow-up appointment. If you have congestive heart failure and your symptoms return, make an appointment with your physician. Medication List: Carry an up to date list of medications you are taking at all time. We have given you an updated medication list including any new medications that you have been prescribed. Please provide that list to your primary provider Symptoms: If your condition changes or you experience any of the following symptoms, notify your physician immediately: Unusual or worsening pain, fever, persistent nausea and vomiting, bleeding, increase in swelling (especially in your legs), sudden weight gain, extreme dizziness, chest pain, increased drainage or redness from a wound or incision. Go to the emergency department if you experience a problem with breathing. Weights: If you have a history of swelling or shortness of breath, weigh yourself daily and notify your physician if you have a weight gain of two or more pounds in one day or 5 or more pounds in a week. If you experience any of the warning signs for stroke: Sudden numbness or weakness of the face, arm or leg; especially on one side of the body, sudden confusion, trouble speaking or understanding, sudden trouble seeing in one or both eyes, sudden trouble walking, dizziness, loss of balance or coordination, sudden sever headache with no cause; Call 911 or go to the emergency room. Stroke is a medical emergency. Some risk factors for stroke: Age, cigarette smoking, diabetes, excessive alcohol consumption, family history , high blood pressure, overweight, physical inactivity, prior stroke, heart attack, diagnosis of carotid artery stenosis or other artery disease. If you smoke, STOP: Smoking or tobacco use significantly increases your risk of heart and lung disease. Your chance of disease greatly increases if you continue to smoke. For more information, call the [place] tobacco quit line for smoking cessation 0- ( ) Referrals: Ghassan Stoll DPM [Partnered Physician] - (in 1week) Meagan Borjas MD [Partnered Physician] - 11/28/17 8:00 am Jc Tsai MD [Primary Care Provider] - (in 1-2 weeks) Prescriptions: clonazePAM [Klonopin] 0.5 mg PO BID PRN 5 Days #10 tablet PRN Reason: Anxiety Collagenase Oint [Santyl] 1 appl TP BID #1 tube Lactobacillus Acidophilus [Acidophilus] 1 each PO BID #10 capsule Miconazole w/zinc oxide&karaya [Antifungal Extra Thick] 1 appl TP BID #1 tube Pregabalin [Lyrica] 75 mg PO BID 30 Days #60 capsule - Attending Attestation I examined this patient and my medical decision-making was reviewed with the Resident Physician. I agree with the documented findings, disposition and treatment plan as described except to the extent set forth below.
--- NOTE | 2017-11-23 11:23 | Internal Med Progress Note ---
Date of Encounter: 11/23/17 Time of Encounter: 09:10 - Assessment and plan (1) Diabetic foot ulcer Current Visit: Yes Status: Acute Assessment and plan: Continue current antibiotics and local wound care. Repeat wound culture currently pending. Infectious disease following. Qualifiers: Diabetic foot ulcer location: midfoot Diabetes mellitus type: type 2 Laterality: right Non-pressure ulcer stage: limited to breakdown of skin Qualified Code(s): E11.621 - Type 2 diabetes mellitus with foot ulcer; L97.411 - Non-pressure chronic ulcer of right heel and midfoot limited to breakdown of skin; L97.411 - Non-pressure chronic ulcer of right heel and midfoot limited to breakdown of skin; L97.411 - Non-pressure chronic ulcer of right heel and midfoot limited to breakdown of skin; L97.411 - Non-pressure chronic ulcer of right heel and midfoot limited to breakdown of skin (2) Bilateral lower leg cellulitis Current Visit: Yes Status: Suspected Assessment and plan: More likely to be stasis dermatitis and cellulitis. Will need outpatient follow -up with dermatology. For now continue current antibiotics. (3) Diabetes mellitus Current Visit: Yes Status: Chronic Assessment and plan: Blood sugars are better today. No new episodes of hypoglycemia. Continue current insulin regimen. Qualifiers: Diabetes mellitus type: type 2 Diabetes mellitus terminal clerk insulin use: with terminal clerk use Diabetes mellitus complication status: with skin complications Diabetes mellitus complication detail: with other skin complication Qualified Code(s): E11.628 - Type 2 diabetes mellitus with other skin complications; Z79.4 - roasterman (current) use of insulin (4) Morbid obesity Current Visit: Yes Status: Chronic (5) HTN (hypertension) Current Visit: Yes Status: Chronic Assessment and plan: Blood pressure remains elevated. We will increase beta geena dose. Qualifiers: Hypertension type: essential hypertension Qualified Code(s): I10 - Essential (primary) hypertension (6) HLD (hyperlipidemia) Current Visit: Yes Status: Chronic Assessment and plan: Continue Lipitor Qualifiers: Hyperlipidemia type: mixed hyperlipidemia Qualified Code(s): E78.2 - Mixed hyperlipidemia (7) Peripheral neuropathy due to metabolic disorder Current Visit: Yes Status: Chronic Assessment and plan: Continue Lyrica. Patient also takes tizanidine. We will resume this medication. (8) Sacral decubitus ulcer, stage III Current Visit: Yes Status: Acute (9) Diastolic heart failure Current Visit: Yes Status: Chronic Assessment and plan: Chronic. Not in acute exacerbation. Continue Lasix. Qualifiers: Heart failure chronicity: chronic Qualified Code(s): I50.32 - Chronic diastolic (congestive) heart failure (10) Sleep apnea Current Visit: No Status: Acute Assessment and plan: CPAP when lying down. Qualifiers: Sleep apnea type: unspecified type Qualified Code(s): G47.30 - Sleep apnea , unspecified (11) Acute kidney injury Current Visit: Yes Status: Resolved Assessment and plan: Now resolved. Creatinine 1.12 (12) DVT prophylaxis Current Visit: Yes Status: Acute Assessment and plan: With subcutaneous heparin - Time Spent With Patient Total time spent is greater than 50% in coordination of care (as documented) at patient's floor/unit and/or counseling patient: - Subjective Interval history: Patient is lying in bed. Doing better today. Denies any chest pain or palpitations. Does continue to have lower extremity pain which is chronic for her. No fever or chills reported. No new episodes of hypoglycemia. - Constitutional Vitals: Temp Pulse Resp BP Pulse Ox 98.8 F 78 17 150/79 93 11/23/17 07:24 11/23/17 07:24 11/23/17 07:24 11/23/17 07:24 11/23/17 07:24 General appearance: Present: A&O X 3, morbidly obese, no acute distress, answers questions appropriately - Neck Neck exam general surgery: Present: supple, trachea midline. Absent: lymphadenopathy - Respiratory Respiratory exam: Absent: accessory muscle use, rales, rhonchi, wheezes - Cardiovascular Cardiovascular exam: Present: RRR, +S1, +S2. Absent: diastolic murmur, gallop, rubs, systolic murmur - GI/Abdominal GI/Abdominal exam: Present: normal bowel sounds, soft, no peritoneal signs. Absent: distended, tenderness - Extremities Exam Extremities exam: Present: warm, radial pulses palpable and symmetrical. Absent : calf tenderness, cyanotic, pedal edema Additional comments: Erythema in both lower extremities appears stable. Blanching. Most likely due to dermatitis. - Neurological Exam Neurological exam: Present: CN II-XII intact, oriented X3, no focal deficits, strengths equal and symetr throughout. Absent: facial droop, speech deficit Internal Medicine: Result - Labs CBC & Chem 7: 11/22/17 00:44 11/23/17 01:34 Labs: BMP 11/23/17 01:34 Sodium 143 Potassium 4.4 Chloride 105 Carbon Dioxide 31 H BUN 37 H Creatinine 1.12 Glucose 125 H Calcium 8.6 Consult Discharge Plan - Plan Referrals: Jc Tsai MD [Primary Care Provider] -
[2017-11-23] MEDS ORDERED: Primidone 50 MG TABLET PO PRN (11:24)
[2017-11-23] MEDS: tiZANidine 4 MG TABLET PO SCH ×2 (13:35→23:40)
[2017-11-23] MEDS: Latanoprost 2.5 ML BOTTLE BOTH EYES SCH (23:42)
[2017-11-24 01:42] LABS: Basophils # 0.1 K/mcL (0.0-0.2); Basophils % 0.5 %; Eosinophils # 0.3 K/mcL (0.0-0.6); Eosinophils % 3.1 %; Hematocrit 32.7 % (35.3-44.9); Hemoglobin 9.8 g/dL (11.5-15.4); Immature Granulocytes % 0.6 % (0-4); Lymphocytes # 2.4 K/mcL (0.6-4.6); Lymphocytes % 23.9 %; Mean Corpuscular Hemoglobin 24.2 pg (28.0-33.3); Mean Corpuscular Volume 80.7 fL (83.0-100.0); Mean Platelet Volume 12.6 fL (9.4-12.4); Monocytes # 0.7 K/mcL (0.0-1.3); Monocytes % 6.9 %; Neutrophils # 6.6 K/mcL (1.6-8.9); Platelet Count 224 K/mcL (140-400); Red Blood Count 4.05 M/mcL (3.82-4.97); Red Cell Distribution Width 15.1 % (11.5-14.5)
[2017-11-24 01:58] LABS: Calcium 8.8 mg/dL (8.6-10.3)
[2017-11-24] MEDS: *HR* Heparin 5,000 UNIT/ML VIAL SQ SCH (08:08)
[2017-11-24] MEDS: Diltiazem CD (24hr) 120 MG CAPSULE PO SCH (08:08)
[2017-11-24] MEDS: levoFLOXacin 750 MG TABLET PO SCH (08:08)
[2017-11-24] MEDS: Pregabalin 75 MG CAPSULE PO SCH (08:08)
[2017-11-24] MEDS: Amoxicillin 500 MG CAPSULE PO SCH (08:08)
[2017-11-24] MEDS: Benzonatate 100 MG CAPSULE PO SCH (08:09)
[2017-11-24] MEDS: Ascorbic Acid 500 MG TABLET PO SCH (08:09)
[2017-11-24] MEDS: Insulin LISPRO 300 UNITS/3 ML VIAL SQ SCH (08:09)
[2017-11-24] MEDS: Furosemide 40 MG TABLET PO SCH (08:09)
[2017-11-24] MEDS: tiZANidine 4 MG TABLET PO SCH (08:09)
[2017-11-24] MEDS: Fluticasone Propionate Nasal 50 MCG/SPRAY BOTTLE NS SCH (08:10)
--- NOTE | 2017-11-24 09:19 | Infectious Disease Progress No ---
Date of Encounter: 11/24/17 Time of Encounter: 09:17 - Assessment and Plan (1) Bilateral lower leg cellulitis Status: Resolved Patient met one SIRS criteria upon admission during her last hospital admission, she was discharged on oral Levaquin and ampicillin-and was to be treated through 11/25/17 during prior admission, wound cultures positive for Citrobacter Freundii, Serratia Marcescens, Enterococcous species. ESR>130 lactic acid: 1.2 11/19/17: preliminary blood cultures x2 preliminary negative creatinine clearance 54 Plan: she had only one SIRS criteria upon admission, WBC is not significantly elevated. Cellulitis vs. Venous stasis. patient received 2 days doxycycline-stopped 11/20 received 2 days Zosyn -stopped 11/20 recommend continued wound care and glycemic control. contine levaquin PO and Amoxicillin PO through 11/25 as originally planned. repeat wound culture pending negative continued wound care per podiatry needs outpatient follow up with dermatology to determine if biopsy will distinguish cellulitis vs. contact dermatitis. ok to discharge from ID standpoint. (2) HTN (hypertension) Status: Chronic per primary Qualifiers: Hypertension type: essential hypertension Qualified Code(s): I10 - Essential (primary) hypertension (3) HLD (hyperlipidemia) Status: Chronic Qualifiers: Hyperlipidemia type: mixed hyperlipidemia Qualified Code(s): E78.2 - Mixed hyperlipidemia (4) Diabetes mellitus Status: Chronic Continue with aggressive glucose control. Management per primary team. Qualifiers: Diabetes mellitus type: type 2 Diabetes mellitus [facility] insulin use: with instructional design specialist use Diabetes mellitus complication status: with skin complications Diabetes mellitus complication detail: with other skin complication Qualified Code(s): E11.628 - Type 2 diabetes mellitus with other skin complications; Z79.4 - skilled nursing (current) use of insulin (5) Morbid obesity Status: Chronic lifeStyle modifications advised. (6) REGINALD on CPAP Status: Chronic - Subjective Interval history: 57-year-old female evaluated. She was laying in bed. She denies nausea, vomiting, diarrhea, fever, chills, chest pain, shortness of breath. Infect Dis PN-Objective Data - Labs CBC & Chem 7: 11/24/17 01:00 11/24/17 01:00 Labs: Laboratory Results - last 24 hr 11/22/17 11/23/17 11/23/17 19:59 07:38 11:47 WBC RBC Hgb Hct MCV MCH MCHC RDW Plt Count MPV Immature Gran % Seg Neutrophils % Lymphocytes % Monocytes % Eosinophils % Basophils % Neutrophils # Lymphocytes # Monocytes # Eosinophils # Basophils # Sodium Potassium Chloride Carbon Dioxide BUN Creatinine Est GFR ( Amer) Est GFR (Non-Af Amer) BUN/Creatinine Ratio Glucose POC Glucose 225 H 84 74 Calculated Osmolality Calcium 11/23/17 11/23/17 11/24/17 16:15 19:31 01:00 WBC 10.2 RBC 4.05 Hgb 9.8 L Hct 32.7 L MCV 80.7 L MCH 24.2 L MCHC 30.0 L RDW 15.1 H Plt Count 224 MPV 12.6 H Immature Gran % 0.6 Seg Neutrophils % 65.0 Lymphocytes % 23.9 Monocytes % 6.9 Eosinophils % 3.1 Basophils % 0.5 Neutrophils # 6.6 Lymphocytes # 2.4 Monocytes # 0.7 Eosinophils # 0.3 Basophils # 0.1 Sodium Potassium Chloride Carbon Dioxide BUN Creatinine Est GFR ( Amer) Est GFR (Non-Af Amer) BUN/Creatinine Ratio Glucose POC Glucose 80 287 H Calculated Osmolality Calcium 11/24/17 01:00 WBC RBC Hgb Hct MCV MCH MCHC RDW Plt Count MPV Immature Gran % Seg Neutrophils % Lymphocytes % Monocytes % Eosinophils % Basophils % Neutrophils # Lymphocytes # Monocytes # Eosinophils # Basophils # Sodium 142 Potassium 4.0 Chloride 104 Carbon Dioxide 32 H BUN 35 H Creatinine 1.30 H Est GFR ( Amer) 51 L Est GFR (Non-Af Amer) 42 L BUN/Creatinine Ratio 27 H Glucose 109 H POC Glucose Calculated Osmolality 303 H Calcium 8.8 Cultures: Cultures 11/19/17 03:52 Blood Culture - Final Peripheral Venipuncture No growth. 11/22/17 12:10 Wound Culture - Preliminary Left Foot No pathogens isolated. Exam - Constitutional Vitals: Temp Pulse Resp BP Pulse Ox 97.9 F 68 16 117/67 94 11/24/17 06:51 11/24/17 06:51 11/24/17 06:51 11/24/17 06:51 11/24/17 06:51 General appearance: morbidly obese, no acute distress - Head Head exam: Present: atraumatic, normocephalic - Respiratory Respiratory exam: Present: CTAB - Cardiovascular Cardiovascular exam: Present: RRR, +S1, +S2 - GI/Abdominal GI/Abdominal exam: Present: distended, normal bowel sounds, soft. Absent: tenderness - Extremities Exam Additional comments: Bilateral lower extremity wrapped in yon bandage and placed in boot area to erythema present. - Neurological Exam Neurological exam: Present: alert, oriented X3 Consult Discharge Plan - Plan Instructions: Cellulitis (DC), Diabetic Foot Care (DC), Diabetes Mellitus Type 2 in Adults (DC) Additional Instructions: Follow-up appointments: If there is not an appointment listed below, please call your physician and schedule a follow-up appointment. If you have congestive heart failure and your symptoms return, make an appointment with your physician. Medication List: Carry an up to date list of medications you are taking at all time. We have given you an updated medication list including any new medications that you have been prescribed. Please provide that list to your primary provider Symptoms: If your condition changes or you experience any of the following symptoms, notify your physician immediately: Unusual or worsening pain, fever, persistent nausea and vomiting, bleeding, increase in swelling (especially in your legs), sudden weight gain, extreme dizziness, chest pain, increased drainage or redness from a wound or incision. Go to the emergency department if you experience a problem with breathing. Weights: If you have a history of swelling or shortness of breath, weigh yourself daily and notify your physician if you have a weight gain of two or more pounds in one day or 5 or more pounds in a week. If you experience any of the warning signs for stroke: Sudden numbness or weakness of the face, arm or leg; especially on one side of the body, sudden confusion, trouble speaking or understanding, sudden trouble seeing in one or both eyes, sudden trouble walking, dizziness, loss of balance or coordination, sudden sever headache with no cause; Call 911 or go to the emergency room. Stroke is a medical emergency. Some risk factors for stroke: Age, cigarette smoking, diabetes, excessive alcohol consumption, family history , high blood pressure, overweight, physical inactivity, prior stroke, heart attack, diagnosis of carotid artery stenosis or other artery disease. If you smoke, STOP: Smoking or tobacco use significantly increases your risk of heart and lung disease. Your chance of disease greatly increases if you continue to smoke. For more information, call the [facility] tobacco quit line for smoking cessation QUIT-NOW ( ) Referrals: Ghassan Stoll DPM [Partnered Physician] - (in 1week) Meagan Borjas MD [Partnered Physician] - 11/28/17 8:00 am Jc Tsai MD [Primary Care Provider] - (in 1-2 weeks) Prescriptions: clonazePAM [Klonopin] 0.5 mg PO BID PRN 5 Days #10 tablet PRN Reason: Anxiety Collagenase Oint [Santyl] 1 appl TP BID #1 tube Lactobacillus Acidophilus [Acidophilus] 1 each PO BID #10 capsule Miconazole w/zinc oxide&karaya [Antifungal Extra Thick] 1 appl TP BID #1 tube Pregabalin [Lyrica] 75 mg PO BID 30 Days #60 capsule - Attending Attestation I examined this patient and my medical decision-making was reviewed with the Resident Physician. I agree with the documented findings, disposition and treatment plan as described except to the extent set forth below.
--- NOTE | 2017-11-24 10:38 | Discharge Summary ---
- NOTES TO OUTPATIENT PROVIDER Notes to Outpatient Provider: Patient admitted with possible lower extremity cellulitis and diabetic foot ulcer infection. She had just been discharged from the hospital on oral antibiotics. She was evaluated by infectious disease. Repeat wound cultures were sent which have been negative. At this time recent is clinically stable for discharge. She will follow up with her primary care provider for further management. She is being discharged to skilled rehabilitation for recuperation and physical therapy. Also infectious disease has recommended her follow-up with dermatology to evaluate for dermatitis in her lower extremities. She also had mild acute kidney injury but most likely also has underlying chronic kidney disease related to diabetes. Her renal function improved initially but seems to stabilized now with a creatinine of 1.3. Will need outpatient follow-up for further evaluation. Patient is on losartan and Lasix. Orders not resulted at time of discharge: Pending orders 11/20/17 15:12 Culture,Wound [RM] Stat 11/22/17 12:10 Culture,Anaerobic [RM] Stat Date of Encounter: 11/24/17 Time of Encounter: 09:15 - Discharge Diagnosis (1) Diabetic foot ulcer Priority: Primary Status: Acute Qualifiers: Diabetic foot ulcer location: midfoot Diabetes mellitus type: type 2 Laterality: right Non-pressure ulcer stage: limited to breakdown of skin Qualified Code(s): E11.621 - Type 2 diabetes mellitus with foot ulcer; L97.411 - Non-pressure chronic ulcer of right heel and midfoot limited to breakdown of skin; L97.411 - Non-pressure chronic ulcer of right heel and midfoot limited to breakdown of skin; L97.411 - Non-pressure chronic ulcer of right heel and midfoot limited to breakdown of skin; L97.411 - Non-pressure chronic ulcer of right heel and midfoot limited to breakdown of skin (2) Bilateral lower leg cellulitis Priority: Secondary Status: Resolved (3) Diabetes mellitus Priority: Secondary Status: Chronic Qualifiers: Diabetes mellitus type: type 2 Diabetes mellitus buttermaker helper insulin use: with halfway use Diabetes mellitus complication status: with skin complications Diabetes mellitus complication detail: with other skin complication Qualified Code(s): E11.628 - Type 2 diabetes mellitus with other skin complications; 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 (4) Morbid obesity Priority: Secondary Status: Chronic (5) HTN (hypertension) Priority: Secondary Status: Chronic Qualifiers: Hypertension type: essential hypertension Qualified Code(s): I10 - Essential (primary) hypertension (6) HLD (hyperlipidemia) Priority: Secondary Status: Chronic Qualifiers: Hyperlipidemia type: mixed hyperlipidemia Qualified Code(s): E78.2 - Mixed hyperlipidemia (7) Peripheral neuropathy due to metabolic disorder Priority: Secondary Status: Chronic (8) Sacral decubitus ulcer, stage III Priority: Secondary Status: Acute (9) Diastolic heart failure Priority: Secondary Status: Chronic Qualifiers: Heart failure chronicity: chronic Qualified Code(s): I50.32 - Chronic diastolic (congestive) heart failure (10) Sleep apnea Priority: Secondary Status: Acute Qualifiers: Sleep apnea type: unspecified type Qualified Code(s): G47.30 - Sleep apnea , unspecified (11) Acute kidney injury Priority: Secondary Status: Resolved (12) DVT prophylaxis Priority: Secondary Status: Acute Hospital course: Ms. Magallanes is a 57 year old female Discharge discussed with: patient, nurse, social work, technical consultant - Time Spent with Patient Total time spent providing and/or coordinating discharge services: Greater than 30 minutes (40 min) - Discharge Medications Prescriptions: clonazePAM [Klonopin] 0.5 mg PO BID PRN 5 Days #10 tablet PRN Reason: Anxiety Collagenase Oint [Santyl] 1 appl TP BID #1 tube Lactobacillus Acidophilus [Acidophilus] 1 each PO BID #10 capsule Miconazole w/zinc oxide&karaya [Antifungal Extra Thick] 1 appl TP BID #1 tube Pregabalin [Lyrica] 75 mg PO BID 30 Days #60 capsule Home Medications: Atorvastatin [Lipitor] 40 mg PO HS 01/11/16 [History] Insulin ASPART [Novolog Flexpen] 6 - 14 unit SQ TID 01/11/16 [History] Latanoprost [Xalatan] 1 drop BOTH EYES HS 01/11/16 [History] Primidone [Mysoline] 25 - 50 mg PO BID PRN 01/11/16 [History] Acetaminophen [Tylenol] 650 mg PO Q6HR PRN #0 tablet 01/12/16 [Rx] Ascorbic Acid [Vitamin C] 500 mg PO BID 03/25/16 [History] Docusate Sodium [Colace] 200 mg PO BID 03/25/16 [History] Furosemide [Lasix] 40 mg PO BID 05/16/17 [History] Potassium Chloride [K-Tab ER] 20 meq PO TID #0 12/08/16 [Rx] Fluticasone Propionate Nasal [Flonase] 2 spray NS DAILY #1 bottle 08/28/17 [Rx] Guaifenesin [Guaifenesin ER] 600 mg PO BID PRN #20 tab.er.12h 08/28/17 [Rx] Brimonidine Tartrate/Timolol [Combigan 0.2%-0.5% Eye Drops] 1 drop OP BID [History] Diltiazem HCl [Diltiazem 12Hr ER] 120 mg PO DAILY 11/10/17 [History] Esomeprazole Magnesium [Nexium] 40 mg PO DAILY 11/10/17 [History] Gentamicin Oint [Garamycin] 1 appl TP BID 11/10/17 [History] Ketoconazole 2% CRM [Nizoral Cream] 1 appl TP DAILY 11/10/17 [History] Ketorolac Tromethamine 1 drop OP QID 11/10/17 [History] Losartan Potassium [Cozaar] 100 mg PO DAILY 11/10/17 [History] Gauze Bandage [Rolled Gauze] 20 each TP DAILY #20 bandage 11/15/17 [Rx] levoFLOXacin [Levaquin] 750 mg PO DAILY 10 Days #10 tablet 11/15/17 [Rx] Tizanidine HCl 4 mg PO TID 11/20/17 [History] Amoxicillin [Amoxil] 500 mg PO TID 2 Days capsule 11/24/17 [Rx] Benzonatate [Tessalon] 100 mg PO TID PRN #30 capsule 11/24/17 [Rx] Calcium Carbonate [Tums] 1,000 mg PO Q4HR PRN tab.chew 11/24/17 [Rx] Carvedilol [Coreg] 6.25 mg PO BIDWM tablet 11/24/17 [Rx] Collagenase Oint [Santyl] 1 appl TP BID #1 tube 11/24/17 [Rx] Insulin Glargine,Hum.rec.anlog [Lantus Solostar] 40 unit SQ BID #0 11/24/17 [Rx] Lactobacillus Acidophilus [Acidophilus] 1 each PO BID #10 capsule 11/24/17 [Rx] Miconazole w/zinc oxide&karaya [Antifungal Extra Thick] 1 appl TP BID #1 tube [Rx] Pregabalin [Lyrica] 75 mg PO BID 30 Days #60 capsule 11/24/17 [Rx] clonazePAM [Klonopin] 0.5 mg PO BID PRN 5 Days #10 tablet 11/24/17 [Rx] Allergies/Adverse Reactions: 3 Allergy/AdvReac Type Severity Reaction Status Date / Time lisinopril [From Zestril] Allergy Rash Verified 11/20/17 10:05 Date of admission: 11/18/17 23:05 Primary care physician: Jc Tsai MD Consults: 11/19/17 14:18 Consult to Infectious Diseases [CONS] Routine Consulting Provider: Infectious Disease [facility] Reason for Consult: No improvement in previously treated cellulitis/foot ulcerations Call Completed: No Consult to Podiatry [CONS] Routine Consulting Provider: [facility] Reason for Consult: No improvement in foot ulcerations Call Completed: No Consult to Wound Care [CONS] Routine Reason for Consult: Foot ulcerations and decubitus sacral ulcer Call Completed: No 11/20/17 11:05 Consult to Occupational Therapy [CONS] Routine Comment: Evaluate, develop and implement POC Reason for Consult: d/c planning Does patient have active BEDREST order?: No Is patient medically & hemodynamically stable?: Yes Consult to Physical Therapy [CONS] Routine Comment: Evaluate, develop and implement POC Reason for Consult: d/c planning Does patient have active BEDREST order?: No Is patient medically & hemodynamically stable?: Yes Consult to Card Dealer [CONS] Routine Reason for SW Consult: d/c planning Discharging clinician: Dioni Garvin Anticipated date of discharge: 11/24/17 - Constitutional Vitals: Temp Pulse Resp BP Pulse Ox 97.9 F 68 16 117/67 94 11/24/17 06:51 11/24/17 06:51 11/24/17 06:51 11/24/17 06:51 11/24/17 06:51 General appearance: Present: A&O X 3, morbidly obese, no acute distress, answers questions appropriately - Neck Neck exam general surgery: Present: supple, trachea midline. Absent: lymphadenopathy - Respiratory Respiratory exam: Present: CTAB. Absent: accessory muscle use, rales, rhonchi, wheezes - Cardiovascular Cardiovascular exam: Present: RRR, +S1, +S2. Absent: diastolic murmur, gallop, rubs, systolic murmur - GI/Abdominal GI/Abdominal exam: Present: normal bowel sounds, soft, no peritoneal signs. Absent: distended, tenderness - Extremities Exam Extremities exam: Present: warm, radial pulses palpable and symmetrical. Absent : calf tenderness, cyanotic, pedal edema - Neurological Exam Neurological exam: Present: CN II-XII intact, oriented X3, no focal deficits. Absent: facial droop, speech deficit - Skin Skin exam: Present: dry, intact - Patient Status Disposition: Transfer SNF Condition: Good Functional capacity at discharge: wheelchair bound Overall status at discharge: patient is not back to baseline - Discharge Instructions Instructions: Cellulitis (DC), Diabetic Foot Care (DC), Diabetes Mellitus Type 2 in Adults (DC) Follow Up With: Meagan Borjas MD [Partnered Physician] - 11/28/17 8:00 am Jc Tsai MD [Primary Care Provider] - (in 1-2 weeks) Ghassan Stoll DPM [Partnered Physician] - (in 1week) - Diet and Activity Activity: as per physical therapy, increase activity as tolerated Diet: diabetic diet, low fat, low cholesterol, low salt diet
[2017-11-24] MEDS: Insulin DETEMIR 100 UNIT/ML X5UNITS SQ SCH (10:39)
[2017-11-24 11:05] VITALS: BP 119/72
--- NOTE | 2017-11-24 11:13 | Physician Discharge Referral ---
ExtendedCare Referral Info Provider in Charge after Transfer: PCP Institutional Level of Care: Skilled - Diagnosis (1) Diabetic foot ulcer Priority: Primary Status: Acute (2) Bilateral lower leg cellulitis Priority: Secondary Status: Resolved (3) Diabetes mellitus Priority: Secondary Status: Chronic (4) Morbid obesity Priority: Secondary Status: Chronic (5) HTN (hypertension) Priority: Secondary Status: Chronic (6) HLD (hyperlipidemia) Priority: Secondary Status: Chronic (7) Peripheral neuropathy due to metabolic disorder Priority: Secondary Status: Chronic (8) Sacral decubitus ulcer, stage III Priority: Secondary Status: Acute (9) Diastolic heart failure Priority: Secondary Status: Chronic (10) Sleep apnea Priority: Secondary Status: Acute (11) Acute kidney injury Priority: Secondary Status: Resolved (12) DVT prophylaxis Priority: Secondary Status: Acute Prognosis: Fair Aware of Diagnosis: Patient Aware of Prognosis: Patient - Transfer Medications Prescriptions: clonazePAM [Klonopin] 0.5 mg PO BID PRN 5 Days #10 tablet PRN Reason: Anxiety Collagenase Oint [Santyl] 1 appl TP BID #1 tube Lactobacillus Acidophilus [Acidophilus] 1 each PO BID #10 capsule Miconazole w/zinc oxide&karaya [Antifungal Extra Thick] 1 appl TP BID #1 tube Pregabalin [Lyrica] 75 mg PO BID 30 Days #60 capsule Home Medications: Atorvastatin [Lipitor] 40 mg PO HS 01/11/16 [History] Insulin ASPART [Novolog Flexpen] 6 - 14 unit SQ TID 01/11/16 [History] Latanoprost [Xalatan] 1 drop BOTH EYES HS 01/11/16 [History] Primidone [Mysoline] 25 - 50 mg PO BID PRN 01/11/16 [History] Acetaminophen [Tylenol] 650 mg PO Q6HR PRN #0 tablet 01/12/16 [Rx] Ascorbic Acid [Vitamin C] 500 mg PO BID 03/25/16 [History] Docusate Sodium [Colace] 200 mg PO BID 03/25/16 [History] Furosemide [Lasix] 40 mg PO BID 12/06/16 [History] Potassium Chloride [K-Tab ER] 20 meq PO TID #0 12/08/16 [Rx] Fluticasone Propionate Nasal [Flonase] 2 spray NS DAILY #1 bottle 08/28/17 [Rx] Guaifenesin [Guaifenesin ER] 600 mg PO BID PRN #20 tab.er.12h 08/28/17 [Rx] Brimonidine Tartrate/Timolol [Combigan 0.2%-0.5% Eye Drops] 1 drop OP BID [History] Diltiazem HCl [Diltiazem 12Hr ER] 120 mg PO DAILY 11/10/17 [History] Esomeprazole Magnesium [Nexium] 40 mg PO DAILY 11/10/17 [History] Gentamicin Oint [Garamycin] 1 appl TP BID 11/10/17 [History] Ketoconazole 2% CRM [Nizoral Cream] 1 appl TP DAILY 11/10/17 [History] Ketorolac Tromethamine 1 drop OP QID 11/10/17 [History] Losartan Potassium [Cozaar] 100 mg PO DAILY 11/10/17 [History] Gauze Bandage [Rolled Gauze] 20 each TP DAILY #20 bandage 11/15/17 [Rx] levoFLOXacin [Levaquin] 750 mg PO DAILY 10 Days #10 tablet 11/15/17 [Rx] Tizanidine HCl 4 mg PO TID 11/20/17 [History] Amoxicillin [Amoxil] 500 mg PO TID 2 Days capsule 11/24/17 [Rx] Benzonatate [Tessalon] 100 mg PO TID PRN #30 capsule 11/24/17 [Rx] Calcium Carbonate [Tums] 1,000 mg PO Q4HR PRN tab.chew 11/24/17 [Rx] Carvedilol [Coreg] 6.25 mg PO BIDWM tablet 11/24/17 [Rx] Collagenase Oint [Santyl] 1 appl TP BID #1 tube 11/24/17 [Rx] Insulin Glargine,Hum.rec.anlog [Lantus Solostar] 40 unit SQ BID #0 11/24/17 [Rx] Lactobacillus Acidophilus [Acidophilus] 1 each PO BID #10 capsule 11/24/17 [Rx] Miconazole w/zinc oxide&karaya [Antifungal Extra Thick] 1 appl TP BID #1 tube [Rx] Pregabalin [Lyrica] 75 mg PO BID 30 Days #60 capsule 11/24/17 [Rx] clonazePAM [Klonopin] 0.5 mg PO BID PRN 5 Days #10 tablet 11/24/17 [Rx] Allergies/Adverse Reactions: 3 Allergy/AdvReac Type Severity Reaction Status Date / Time lisinopril [From Zestril] Allergy Rash Verified 11/20/17 10:05 - Respiratory Orders Oxygen / L per min (Keep sat >92%) Smoking Cessation: Smoking cessation has been advised. For more information, call the [facility] Quit Line at 3-614-QEXP-NOW. - Ancillary Orders May consult with Dentist, Data Center Engineer, Social Staff Worker PRN (Follow-up with dermatology for further evaluation of lower extremity erythema) - Advance Directives Code Status: Full Code - Mobility Orders Other (per PT) - Rehabiliation Orders Rehab Potential: Fair Rehab Orders: Evaluation for Physical Therapy, Evaluation for Occupational Therapy - Treatments Skin tear care topically daily PRN per policy - Diet Orders No Concentrated Sweets (diabetic), Cardiac CERTIFICATION: I certify that the transfer of the above named patient to an Extended Care Facility is necessary for the continuing treatment of the diagnosis listed. The above information is true and accurate reflection of patient's current condition. Confidential - Redisclosure prohibited without a patient's written consent.
== END 2017-11-24 12:10 | DRG 380 ==
LOC: EMEROO 18:32 → 3NENU 18:32 → SUATTDRO 23:05
PROVIDERS: ADMIT Internal Medicine; ATTEND Internal Medicine

== ENCOUNTER 2018-01-17 13:33 | Inpatient (IN) ==
[2018-01-17] MEDS ORDERED: 0.9 % Sodium Chloride 1,000 ML IVC ONE ×2 (14:07→16:51)
[2018-01-17 14:59] LABS: Basophils % 0.2 %; Hematocrit 37.8 % (35.3-44.9); Hemoglobin 12.7 g/dL (11.5-15.4); Immature Granulocytes % 1.1 % (0-4); Lymphocytes # 0.7 K/mcL (0.6-4.6); Lymphocytes % 3.9 %; Mean Corpuscular HGB Conc 33.6 g/dL (31.6-35.5); Mean Corpuscular Hemoglobin 25.3 pg (28.0-33.3); Mean Corpuscular Volume 75.4 fL (83.0-100.0); Mean Platelet Volume 11.8 fL (9.4-12.4); Monocytes # 0.8 K/mcL (0.0-1.3); Monocytes % 4.3 %; Neutrophils # 16.6 K/mcL (1.6-8.9); Platelet Count 245 K/mcL (140-400); Red Blood Count 5.01 M/mcL (3.82-4.97); Red Cell Distribution Width 17.2 % (11.5-14.5); Segmented Neutrophils % 90.5 %
--- NOTE | 2018-01-17 15:09 | Emergency Department Note ---
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, Morbid obesity, Hyperglycemia, Acute renal insufficiency, Hyponatremia Sepsis Qualifiers: Sepsis type: sepsis due to unspecified organism Qualified Code(s): A41.9 - Sepsis, unspecified organism Cellulitis Qualifiers: Site of cellulitis: trunk Site of cellulitis of trunk: abdominal wall Qualified Code(s): L03.311 - Cellulitis of abdominal wall Urinary tract infection Qualifiers: Urinary tract infection type: site unspecified Hematuria presence: without hematuria Qualified Code(s): N39.0 - Urinary tract infection, site not specified Disposition: Admitted As Inpatient Condition: Serious Referrals: Jc Tsai MD [Primary Care Provider] - Forms: ED Satisfaction Letter Time of Disposition: 17:30 Fever HPI - General Chief Complaint: ED Fever Stated Complaint: fevers,chills, sent from Wound Care Time Seen by Provider: 01/17/18 13:44 Source: patient Limitations: no limitations Nursing Notes Reviewed: Yes Vital Signs Reviewed: Yes - History of Present Illness HPI Narrative: 57-year-old female sent to the ED from one clinic for evaluation of fever, tachycardia and hypotension. Patient has wounds on her feet are being managed. She apparently her brother today feeling generally ill and was noted that she was tachycardic, hypotensive and had tactile fever prompting them to send her directly to the ED. Patient complains of generalized weakness. She is a fairly poor historian and unable to provide much more information. Denies any new or changing pain. No chest pain. No dyspnea. No lightheadedness. No headache. Denies abdominal pain or vomiting. Pt Subjective Complaint: fever, malaise, weakness, rigors Onset (ago): day(s) Temperature Source: subjective, tactile Associated symptoms: Reports: chills Improves with: nothing Worsens with: nothing Treatments prior to arrival fever: none - Related Data Home Medications Medication Instructions Recorded Confirmed Atorvastatin [Lipitor] 40 mg PO HS 01/11/16 11/20/17 Insulin ASPART [Novolog Flexpen] 6 - 14 unit SQ TID 01/11/16 11/20/17 Latanoprost [Xalatan] 1 drop BOTH EYES HS 01/11/16 11/20/17 Primidone [Mysoline] 25 - 50 mg PO BID PRN 01/11/16 11/20/17 Ascorbic Acid [Vitamin C] 500 mg PO BID 03/25/16 11/20/17 Docusate Sodium [Colace] 200 mg PO BID 03/25/16 11/20/17 Furosemide [Lasix] 40 mg PO BID 12/06/16 11/20/17 Brimonidine Tartrate/Timolol 1 drop OP BID 11/10/17 11/20/17 [Combigan 0.2%-0.5% Eye Drops] Diltiazem HCl [Diltiazem 12Hr ER] 120 mg PO DAILY 11/10/17 11/20/17 Esomeprazole Magnesium [Nexium] 40 mg PO DAILY 11/10/17 11/20/17 Gentamicin Oint [Garamycin] 1 appl TP BID 11/10/17 11/20/17 Ketoconazole 2% CRM [Nizoral Cream] 1 appl TP DAILY 11/10/17 11/20/17 Ketorolac Tromethamine 1 drop OP QID 11/10/17 11/20/17 Losartan Potassium [Cozaar] 100 mg PO DAILY 11/10/17 11/20/17 Tizanidine HCl 4 mg PO TID 11/20/17 11/20/17 Gabapentin [Neurontin] 300 mg PO HS 01/17/18 01/17/18 Insulin Glargine,Hum.rec.anlog 40 unit SQ BID 01/17/18 01/17/18 [Basaglar Kwikpen U-100] Potassium Chloride [K-Tab ER] 20 meq PO QID 01/17/18 01/17/18 Previous Rx's Medication Instructions Recorded Acetaminophen [Tylenol] 650 mg PO Q6HR PRN #0 tablet 01/12/16 Fluticasone Propionate Nasal 2 spray NS DAILY #1 bottle 08/28/17 [Flonase] Guaifenesin [Guaifenesin ER] 600 mg PO BID PRN #20 tab.er.12h 08/28/17 Calcium Carbonate [Tums] 1,000 mg PO Q4HR PRN tab.chew 11/24/17 Carvedilol [Coreg] 6.25 mg PO BIDWM tablet 11/24/17 Collagenase Oint [Santyl] 1 appl TP BID #1 tube 11/24/17 Lactobacillus Acidophilus 1 each PO BID #10 capsule 11/24/17 [Acidophilus] Miconazole w/zinc oxide&karaya 1 appl TP BID #1 tube 11/24/17 [Antifungal Extra Thick] Pregabalin [Lyrica] 75 mg PO BID 30 Days #60 capsule 11/24/17 clonazePAM [Klonopin] 0.5 mg PO BID PRN 5 Days #10 tablet 11/24/17 Allergies Allergy/AdvReac Type Severity Reaction Status Date / Time lisinopril [From Zestril] Allergy Rash Verified 01/17/18 13:50 All systems ED: reviewed and negative except as stated. Constitutional: Reports: fever, chills, weakness Eyes: Denies: eye pain Cardiovascular: Denies: chest pain, palpitations Respiratory: Denies: cough, dyspnea, wheezes Gastrointestinal: Denies: vomiting Genitourinary: Denies: urgency, dysuria Musculoskeletal: Denies: back pain Neurological: Denies: headache Fever PMH - Past Medical History Medical history: Reports: CHF, diabetes, hypertension, other Surgical history: Reports: hysterectomy, other Psychiatric history: Reports: depression ACCOUNT SUPPORT ASSOCIATE history: Reports: no ACCOUNT SUPPORT ASSOCIATE history - Social History Smoking Status: Never smoker Alcohol use: Reports: none Drug use: Reports: none Physical Exam Morbidly obese female who appears uncomfortable and generally ill. Tachycardic. Oropharynx is dry. Neck is supple. Chest is clear to auscultation bilaterally. Cardiac exam is tachycardic, regular. Abdomen soft and nontender. She has extensive skin erythema of the lower abdomen extending to the proximal thighs and into the perineum. Very malodorous. Bright red discoloration suggestive of erysipelas versus candidiasis There is marketed dense erythema of both feet. - General Limitations: no limitations General appearance: alert, in no apparent distress - Head Head exam: atraumatic - Eye Eye exam: Present: normal appearance - ENT ENT exam: normal exam, normal oropharynx - Neck Neck exam: Present: normal inspection. Absent: trachea midline - Chest Chest inspection: Present: normal inspection - Respiratory Respiratory exam: Present: normal lung sounds bilaterally. Absent: respiratory distress - Cardiovascular Cardiovascular exam: Present: tachycardia. Absent: regular rate - Abdominal Exam Abdominal exam: Present: soft, Non-Tender - Back Exam Back exam: Absent: CVA tenderness (R), CVA tenderness (L) - Neurological Exam Neurological exam: Present: alert - Psychiatric Psychiatric exam: Present: flat affect - Skin Skin exam: Present: warm, other (Extensive erythema of the skin of the lower abdomen, upper thighs, perineum and back. Dense erythema on both feet.) Course - Reevaluation(s) Reevaluation #1: Morbidly obese 57-year-old presents with sepsis / SIRS criteria secondary to UTI and soft tissue skin infections. She also has acute on chronic renal failure with a GFR now down to 15, previously in the 20s and 30s. She is also diabetic with hyperglycemia on presentation and hyponatremia superimposed by pseudohyponatremia PICC line was placed due to poor peripheral access and expectation of prolonged antibiotics. She has received IV vancomycin and Levaquin. Case is discussed with on-call hospitalist requested Zosyn and extent of Levaquin. She received antibiotics and will be admitted for further management. She receiving 3600 mL of fluid with the first 2600 mL of saline and 1 L Plasma-Lyte The high probability of a clinically significant, sudden or life threatening deterioration of the [cardiopulmonary, renal] system(s) required my full and direct attention, intervention and personal management. The aggregate critical care time was [35] minutes. This time is in addition to time spent performing reported procedures but includes the following: [x] Data Review and interpretation [x] Patient assessment and monitoring of vital signs [x] Documentation [x] Medication orders and management Time: 17:25 Vital Signs Temperature 98.3 F 01/17/18 13:43 Pulse Rate 122 01/17/18 13:43 Respiratory Rate 18 01/17/18 13:43 Blood Pressure 178/96 01/17/18 13:43 O2 Sat by Pulse Oximetry 93 01/17/18 13:43 Temperature 98.3 F 01/17/18 13:43 Pulse Rate 111 01/17/18 16:16 Respiratory Rate 20 01/17/18 16:16 Blood Pressure 147/59 01/17/18 16:16 O2 Sat by Pulse Oximetry 93 01/17/18 16:16 Oxygen Delivery Oxygen Delivery Room Air Fever - Lab Data Result diagrams: 01/17/18 14:46 01/17/18 14:46 Lab Results 01/17/18 01/17/18 01/17/18 Range/Units 14:46 14:46 14:46 WBC 18.3 H (4.3-11.1) K/mcL RBC 5.01 H (3.82-4.97) M/mcL Hgb 12.7 (11.5-15.4) g/dL Hct 37.8 (35.3-44.9) % MCV 75.4 L (83.0-100.0) fL MCH 25.3 L (28.0-33.3) pg MCHC 33.6 (31.6-35.5) g/dL RDW 17.2 H (11.5-14.5) % Plt Count 245 (140-400) K/mcL MPV 11.8 (9.4-12.4) fL Immature Gran % 1.1 (0-4) % Seg Neutrophils % 90.5 % Lymphocytes % 3.9 % Monocytes % 4.3 % Eosinophils % 0.0 % Basophils % 0.2 % Neutrophils # 16.6 H (1.6-8.9) K/mcL Lymphocytes # 0.7 (0.6-4.6) K/mcL Monocytes # 0.8 (0.0-1.3) K/mcL Eosinophils # 0.0 (0.0-0.6) K/mcL Basophils # 0.0 (0.0-0.2) K/mcL Sodium 121 L (136-145) mEq/L Potassium 5.1 (3.5-5.1) mEq/L Chloride 84 L (98-107) mEq/L Carbon Dioxide 22 L (23-29) mEq/L BUN 110 H (6-20) mg/dL Creatinine 3.71 H (0.60-1.20) mg/dL Est GFR ( Amer) 15 L (> 60) Est GFR (Non-Af Amer) 13 L (> 60) BUN/Creatinine Ratio 30 H (6-26) Glucose 468 H (70-105) mg/dL Calculated Osmolality 307 H (280-300) Lactic Acid 2.3 H (0.5-2.2) mmol/L Calcium 9.1 (8.6-10.3) mg/dL Magnesium 1.7 (1.6-2.6) mg/dL Total Bilirubin 0.5 (0.3-1.0) mg/dL AST 7 L (13-39) Units/L ALT 7 (7-52) Units/L Alkaline Phosphatase 111 H (34-104) Units/L Serum Total Protein 8.4 (6.4-8.9) g/dL Albumin 3.1 L (3.5-5.7) g/dL Globulin 5.3 H (2.4-3.5) g/dL Albumin/Globulin Ratio 0.6 L (1.1-2.2) Urine Color (Yellow) Urine Clarity (Clear) Urine pH (5.0-8.0) pH Units Ur Specific [place] (1.010-1.025) Urine Protein (Neg-Trace) mg/dL Urine Glucose (UA) (Normal) mg/dL Urine Ketones (Negative) mg/dL Urine Blood (Negative) Urine Nitrite (Negative) Urine Bilirubin (Negative) Urine Urobilinogen (Normal) mg/dL Ur Leukocyte Esterase (Negative) Urine Microscopic RBC (0-3) per hpf Urine Microscopic WBC (0-3) per hpf Ur Squamous Epith Cells (None-Few) per lpf Urine Bacteria (None-Few) per hpf Hyaline Casts (None-Few) per lpf Urine Yeast (None Seen) per hpf Ur Culture Indicated? (NO) 01/17/18 Range/Units 15:20 WBC (4.3-11.1) K/mcL RBC (3.82-4.97) M/mcL Hgb (11.5-15.4) g/dL Hct (35.3-44.9) % MCV (83.0-100.0) fL MCH (28.0-33.3) pg MCHC (31.6-35.5) g/dL RDW (11.5-14.5) % Plt Count (140-400) K/mcL MPV (9.4-12.4) fL Immature Gran % (0-4) % Seg Neutrophils % % Lymphocytes % % Monocytes % % Eosinophils % % Basophils % % Neutrophils # (1.6-8.9) K/mcL Lymphocytes # (0.6-4.6) K/mcL Monocytes # (0.0-1.3) K/mcL Eosinophils # (0.0-0.6) K/mcL Basophils # (0.0-0.2) K/mcL Sodium (136-145) mEq/L Potassium (3.5-5.1) mEq/L Chloride (98-107) mEq/L Carbon Dioxide (23-29) mEq/L BUN (6-20) mg/dL Creatinine (0.60-1.20) mg/dL Est GFR ( Amer) (> 60) Est GFR (Non-Af Amer) (> 60) BUN/Creatinine Ratio (6-26) Glucose (70-105) mg/dL Calculated Osmolality (280-300) Lactic Acid (0.5-2.2) mmol/L Calcium (8.6-10.3) mg/dL Magnesium (1.6-2.6) mg/dL Total Bilirubin (0.3-1.0) mg/dL AST (13-39) Units/L ALT (7-52) Units/L Alkaline Phosphatase (34-104) Units/L Serum Total Protein (6.4-8.9) g/dL Albumin (3.5-5.7) g/dL Globulin (2.4-3.5) g/dL Albumin/Globulin Ratio (1.1-2.2) Urine Color Yellow (Yellow) Urine Clarity Turbid A (Clear) Urine pH 5.0 (5.0-8.0) pH Units Ur Specific [place] 1.022 (1.010-1.025) Urine Protein 100 H (Neg-Trace) mg/dL Urine Glucose (UA) 500 H (Normal) mg/dL Urine Ketones Trace H (Negative) mg/dL Urine Blood Moderate H (Negative) Urine Nitrite Negative (Negative) Urine Bilirubin Moderate H (Negative) Urine Urobilinogen Normal (Normal) mg/dL Ur Leukocyte Esterase Large H (Negative) Urine Microscopic RBC 5-15 H (0-3) per hpf Urine Microscopic WBC TNTC H (0-3) per hpf Ur Squamous Epith Cells Many H (None-Few) per lpf Urine Bacteria Many H (None-Few) per hpf Hyaline Casts None Seen (None-Few) per lpf Urine Yeast Few H (None Seen) per hpf Ur Culture Indicated? NO. A (NO)
[2018-01-17 15:19] LABS: Albumin 3.1 g/dL (3.5-5.7); Albumin/Globulin Ratio 0.6 (1.1-2.2); Bilirubin,Total 0.5 mg/dL (0.3-1.0); Calcium 9.1 mg/dL (8.6-10.3); Globulin 5.3 g/dL (2.4-3.5); Magnesium 1.7 mg/dL (1.6-2.6); Potassium 5.1 mEq/L (3.5-5.1); Total Protein 8.4 g/dL (6.4-8.9)
[2018-01-17 15:37] LABS: Bilirubin,Urine Moderate (Negative); Blood,Urine Moderate (Negative); Clarity,Urine Turbid (Clear); Color,Urine Yellow (Yellow); Glucose,Urine (UA) 500 mg/dL (Normal); Ketones,Urine Trace mg/dL (Negative); Leukocyte Esterase,Urine Large (Negative); Nitrite,Urine Negative (Negative); Protein,Urine 100 mg/dL (Neg-Trace); Specific Gravity,Urine 1.022 (1.010-1.025); Urobilinogen,Urine Normal (Normal)
[2018-01-17 15:39] LABS: Bacteria,Urine Many per hpf (None-Few); Hyaline Casts,Urine None Seen per lpf (None-Few); Squamous Epithelial Cell,Urine Many per lpf (None-Few); WBC,Urine TNTC per hpf (0-3)
[2018-01-17 15:51] LABS: Yeast,Urine Few per hpf (None Seen)
[2018-01-17] MEDS ORDERED: Levofloxacin 500 MG/100 ML 500 MG/100 ML BAG IVPB ONE (16:45)
[2018-01-17] MEDS ORDERED: Ringers Solution, Lactated 1,000 ML IVC ONE (16:52)
[2018-01-17] MEDS ORDERED: Plasma-Lyte A (PH 7.4) 1,000 ML IVC SCH (17:00)
[2018-01-17] MEDS ORDERED: Piperacillin/Tazobactam 3.375 GM in 0.9 % Sodium Chloride Mini Bag 100 ML IVPB ONE (17:19)
[2018-01-17] MEDS ORDERED: Insulin Regular, Human 100 UNIT/ML SQ ONE ×2 (17:22→18:30)
--- NOTE | 2018-01-17 18:21 | Event Note ---
Date of Encounter: 01/17/18 Time of Encounter: 18:14 Patient was seen and examined. I agree with the H&P as written by Savannah Fierro NP. Alexis is 57 yo female who has history of morbid obesity, DM, hyperlipidemia, chronic kidney disease stage III, diabetic ulcers, who was sent from the wound clinic with concerns of fever, hypotension, and tachycardia. Upon presentation here she was noted to be tachycardic. She was never hypotensive. MAXIMUM TEMPERATURE was 98.3. The patient has been feeling subjective fevers at home for the last 3 days. In the 1 she was noted to have worsening of her lower extremity ulcers/cellulitis and was sent to the ED. Laboratory workup in the ED showed leukocytosis, acute on chronic kidney failure, lactic acidosis, hyponatremia with sodium of 121. UA was indicative for UTI. She was given vancomycin, Zosyn, Levaquin in the ED. She was also given IV fluids per sepsis protocol. Was given 10 units of IV regular insulin due to a glucose of 468. A/Ox3, NAD Tachycardic, S1, S2, no m/r/g CTAB Soft, Obese, erythema noted around the lower abdominal skin folds and into the perineum area. LE erythema noted of the feet and up to the mid legs b/l Nonfocal Admit to hospitalist for severe sepsis likely stemming from cellulitis/diabetic ulcer/UTI We will place patient on IV fluids We will put the patient on IV vancomycin and Zosyn Follow up on cultures Nystatin powder for perineal area in case of fungal infection Consult podiatry Repeat lactic acid Avoid nephrotoxins Repeat BMP/sodium level in 6 hours Resume home basal insulin and put on sliding scale insulin DVT prophylaxis
[2018-01-17] MEDS ORDERED: Naloxone 0.4 MG/ML INJ IVP PRN (18:43)
[2018-01-17] MEDS ORDERED: Ringers Solution, Lactated 1,000 ML IVC SCH (18:45)
[2018-01-17] MEDS ORDERED: *HR* Dextrose 50 % in Water (Syg) 50 ML SYRINGE IVP PRN (18:49)
[2018-01-17] MEDS ORDERED: Dextrose Gel 15 GM/37.5 ML TUBE PO PRN ×2 (18:49)
[2018-01-17] MEDS ORDERED: D5% in Water 1,000 ML IVC PRN (18:49)
[2018-01-17 18:53] LABS: INR 1.2; Prothrombin Time 13.4 Seconds (9.4-12.1)
--- NOTE | 2018-01-17 19:38 | Internal Med History&Physical ---
Date of Encounter: 01/17/18 Time of Encounter: 19:50 Internal Medicine - H&P: HPI Chief complaint: Fever in the wound clinic Admitted From: Home Plans for Post Hospital Care: Home History of present illness: Ms. Magallanes is a 57 year old female with history of ARF, DM, HTN, diabetic ulcer to bilat feet/toes and hyperglycemia. The patient was at the wound care clinic and was found to have a fever in the clinic. The patient was found to have severe erythema, which appeared to be cellulitis to her tamy-abdominal area and bilat lower extremities. Will treat periarea and abd area wth nystain pwdr. The patient also has diabetic foot ulceration and sacrum ulcer. Spoke with Dr. Stoll , who will see the patient. Okay to continue zosyn and vancomycin. Pharmacy to dose the vanco due to the patients renal function. Creat is 3.71, GFR is 15. lactic acid is 2.3. Patient met sepsis criteria and given IV bolus'. Levaquin, zosyn and vanco started in the ED. cxr showed left bibasilar atelectatsis and pulmonary congestion, will add IS. Ua showed glucose 500, protein 100, trace leukocytes, and wbc tntc. Past Med Surg Social Fam HX - Past Medical History Medical history: CHF, diabetes, hypertension, other Additional medical history: DM Neuropathy Psychiatric history: depression - Past Surgical History Surgical History: hysterectomy, other Additional surgical history: neck surgery, - Social History Smoking Status: Never smoker Smokeless Tobacco Status: No Alcohol use: none Drug use: none - Family History Mother Adopted: No Family Member Ethnicity: Non- Living Status: Hx Family Endocrine Disorder: Yes (diabetes type 2) Father Adopted: No Family Member Ethnicity: Non- Living Status: Hx Family Cardiac Disorders: Yes (hypertension) Hx Family Respiratory Disorders: No Hx Family Cancer: No Hx Family GI Disorders: No Hx Family Endocrine Disorder: Yes (kidney disease) Internal Medicine - H&P: Meds Atorvastatin [Lipitor] 40 mg PO HS 01/11/16 [History] Insulin ASPART [Novolog Flexpen] 6 - 14 unit SQ TID 01/11/16 [History] Latanoprost [Xalatan] 1 drop BOTH EYES HS 01/11/16 [History] Primidone [Mysoline] 25 - 50 mg PO BID PRN 01/11/16 [History] Acetaminophen [Tylenol] 650 mg PO Q6HR PRN #0 tablet 01/12/16 [Rx] Ascorbic Acid [Vitamin C] 500 mg PO BID 03/25/16 [History] Docusate Sodium [Colace] 200 mg PO BID 03/25/16 [History] Furosemide [Lasix] 40 mg PO BID 12/06/16 [History] Fluticasone Propionate Nasal [Flonase] 2 spray NS DAILY #1 bottle 08/28/17 [Rx] Guaifenesin [Guaifenesin ER] 600 mg PO BID PRN #20 tab.er.12h 08/28/17 [Rx] Brimonidine Tartrate/Timolol [Combigan 0.2%-0.5% Eye Drops] 1 drop OP BID [History] Diltiazem HCl [Diltiazem 12Hr ER] 120 mg PO DAILY 11/10/17 [History] Esomeprazole Magnesium [Nexium] 40 mg PO DAILY 11/10/17 [History] Gentamicin Oint [Garamycin] 1 appl TP BID 11/10/17 [History] Ketoconazole 2% CRM [Nizoral Cream] 1 appl TP DAILY 11/10/17 [History] Ketorolac Tromethamine 1 drop OP QID 11/10/17 [History] Losartan Potassium [Cozaar] 100 mg PO DAILY 11/10/17 [History] Tizanidine HCl 4 mg PO TID 11/20/17 [History] Calcium Carbonate [Tums] 1,000 mg PO Q4HR PRN tab.chew 11/24/17 [Rx] Carvedilol [Coreg] 6.25 mg PO BIDWM tablet 11/24/17 [Rx] Collagenase Oint [Santyl] 1 appl TP BID #1 tube 11/24/17 [Rx] Lactobacillus Acidophilus [Acidophilus] 1 each PO BID #10 capsule 11/24/17 [Rx] Miconazole w/zinc oxide&karaya [Antifungal Extra Thick] 1 appl TP BID #1 tube [Rx] Pregabalin [Lyrica] 75 mg PO BID 30 Days #60 capsule 11/24/17 [Rx] clonazePAM [Klonopin] 0.5 mg PO BID PRN 5 Days #10 tablet 11/24/17 [Rx] Gabapentin [Neurontin] 300 mg PO HS 01/17/18 [History] Insulin Glargine,Hum.rec.anlog [Basaglar Kwikpen U-100] 40 unit SQ BID 01/17/18 [History] Potassium Chloride [K-Tab ER] 20 meq PO QID 01/17/18 [History] 3 Allergy/AdvReac Type Severity Reaction Status Date / Time lisinopril [From Zestril] Allergy Rash Verified 01/17/18 13:50 All Systems PM: A 10-system review of systems was performed and is negative for pertinent findings except as documented above in the HPI. - Constitutional Constitutional: no chills, no fever(s), no night sweats - EENT Eyes: no change in vision, no discharge, no pain, no photophobia Ears: no ear discharge, no ear pain, no tinnitus Nose, mouth and throat: no dysphagia, no nasal discharge, no neck pain, no sore throat - Cardiovascular Cardiovascular ROS IM: no chest pain, no diaphoresis, no dyspnea, no lightheadedness, no palpitations, no syncope - Respiratory Respiratory: no cough, no dyspnea, no wheezing, no excessive phlegm production - Gastrointestinal Gastrointestinal: no abdominal pain, no diarrhea, no hematemesis, no hematochezia, no melena, no nausea, no vomiting - Genitourinary Genitourinary: urinary incontinence, no change in urinary stream, no dysuria, no flank pain, no hematuria - Musculoskeletal Musculoskeletal ROS IM: no numbness, no tingling - Integumentary Integumentary IM: erythema (abdominal fold and bilat lower ext.), non-healing lesions (feet), no rash, no unusual bruising - Neurological Neurological ROS: no confusion, no convulsions, no focal weakness, no numbness, no tingling, no tremor(s) - Hematologic/Lymphatic Hematologic/Lymphatic: no easy bruising - Constitutional Vitals: Temp Pulse Resp BP Pulse Ox 98.2 F 111 18 135/73 93 01/17/18 18:47 01/17/18 18:47 01/17/18 18:47 01/17/18 18:47 01/17/18 18:47 General appearance: Present: A&O X 3, morbidly obese, answers questions appropriately - Head Head exam: Present: atraumatic, normocephalic - Eye Eye exam: Present: PERRL, conjuntiva pink, sclera anicteric Pupils: Present: PERRL - Neck Neck exam general surgery: Present: supple, trachea midline. Absent: lymphadenopathy - Respiratory Respiratory exam: Present: CTAB. Absent: accessory muscle use, rales, rhonchi, wheezes - Cardiovascular Cardiovascular exam: Present: RRR, +S1, +S2. Absent: diastolic murmur, gallop, rubs, systolic murmur - GI/Abdominal GI/Abdominal exam: Present: normal bowel sounds, soft, no peritoneal signs. Absent: distended, tenderness - Extremities Exam Extremities exam: Present: warm, radial pulses palpable and symmetrical. Absent : calf tenderness, cyanotic, pedal edema - Neurological Exam Neurological exam: Present: CN II-XII intact, oriented X3, no focal deficits. Absent: pronater drift, facial droop, speech deficit - Skin Skin exam: Present: dry, intact Internal Med - H&P Results - Labs CBC & Chem 7: 01/17/18 14:46 01/17/18 14:46 - Assessment and plan (1) Sepsis Current Visit: Yes Status: Acute Assessment and plan: IVF's lactic acid q4h until 2 Iv zosyn and vancomycin Monitor daily labs Qualifiers: Sepsis type: sepsis due to unspecified organism Qualified Code(s): A41.9 - Sepsis, unspecified organism (2) Bilateral lower leg cellulitis Current Visit: No Status: Resolved Assessment and plan: Consulted podiatry, patient see's Dr Stoll outpatient and he agrees to follow. Iv zosyn and vancomycin (3) UTI (urinary tract infection) Current Visit: Yes Status: Acute Assessment and plan: Continue iv zosyn Ivf's Monitor daily labs Qualifiers: Urinary tract infection type: site unspecified Hematuria presence: without hematuria Qualified Code(s): N39.0 - Urinary tract infection, site not specified (4) Acute on chronic renal failure Current Visit: No Status: Acute Assessment and plan: Likely related to UTI and sepsis, However patient has CKD Continue IVF's Continue iv zosyn Monitor urinary output Qualifiers: Acute renal failure type: unspecified Chronic kidney disease stage: stage 3 (moderate) Qualified Code(s): N17.9 - Acute kidney failure, unspecified; N18.3 - Chronic kidney disease, stage 3 (moderate) (5) Sacral decubitus ulcer, stage III Current Visit: No Status: Acute Assessment and plan: Wound care consulted (6) Diabetic toe ulcer Current Visit: No Status: Acute Assessment and plan: Management by Dr. Stoll Qualifiers: Diabetes mellitus type: type 2 Non-pressure ulcer stage: limited to breakdown of skin Qualified Code(s): E11.621 - Type 2 diabetes mellitus with foot ulcer; L97.501 - Non-pressure chronic ulcer of other part of unspecified foot limited to breakdown of skin (7) Diabetes mellitus Current Visit: No Status: Chronic Assessment and plan: Accu check ac/hs with humalog sliding scale coverage Monitor daily labs Qualifiers: Diabetes mellitus type: type 2 Diabetes mellitus head sawyer automatic insulin use: with head sawyer automatic use Diabetes mellitus complication status: with skin complications Diabetes mellitus complication detail: with other skin complication Qualified Code(s): E11.628 - Type 2 diabetes mellitus with other skin complications; Z79.4 - alf (current) use of insulin (8) HTN (hypertension) Current Visit: No Status: Chronic Assessment and plan: Bp is uncontrolled Continue home medications. Goal is under 140/80. Qualifiers: Hypertension type: essential hypertension Qualified Code(s): I10 - Essential (primary) hypertension - Time Spent With Patient Total time spent is greater than 50% in coordination of care (as documented) at patient's floor/unit and/or counseling patient:
[2018-01-17] MEDS ORDERED: Gabapentin 300 MG CAPSULE PO SCH (21:00)
[2018-01-17] MEDS ORDERED: TIMOLOL OP SCH (21:00)
[2018-01-17] MEDS ORDERED: BRIMONIDINE TARTRATE OP SCH (21:00)
[2018-01-17] MEDS: Ascorbic Acid 500 MG TABLET PO SCH (23:04)
[2018-01-17] MEDS: Insulin DETEMIR 100 UNIT/ML X5UNITS SQ SCH (23:05)
[2018-01-17] MEDS: tiZANidine 4 MG TABLET PO SCH (23:05)
[2018-01-17] MEDS: Gentamicin Oint 15 GM TUBE TP SCH (23:05)
[2018-01-17] MEDS: Pregabalin 75 MG CAPSULE PO SCH (23:05)
[2018-01-17] MEDS: Lactobacillus 1 EACH CAP.SPRINK PO SCH (23:05)
[2018-01-17] MEDS: Insulin LISPRO 300 UNITS/3 ML VIAL SQ SCH (23:09)
[2018-01-17] MEDS: Nystatin POWDER 30 GM BOTTLE TP SCH (23:13)
[2018-01-17] MEDS: Latanoprost 2.5 ML BOTTLE BOTH EYES SCH (23:14)
[2018-01-18] MEDS ORDERED: Piperacillin/Tazobactam 3.375 GM in 0.9 % Sodium Chloride Mini Bag 100 ML IVPB SCH (06:00)
[2018-01-18 06:18] LABS: Basophils % 0.3 %; Eosinophils # 0.2 K/mcL (0.0-0.6); Eosinophils % 1.6 %; Hematocrit 32.7 % (35.3-44.9); Immature Granulocytes % 0.9 % (0-4); Lymphocytes # 1.3 K/mcL (0.6-4.6); Mean Corpuscular HGB Conc 32.4 g/dL (31.6-35.5); Mean Corpuscular Hemoglobin 24.9 pg (28.0-33.3); Mean Corpuscular Volume 76.9 fL (83.0-100.0); Mean Platelet Volume 11.6 fL (9.4-12.4); Monocytes # 0.8 K/mcL (0.0-1.3); Monocytes % 7.3 %; Neutrophils # 8.3 K/mcL (1.6-8.9); Platelet Count 215 K/mcL (140-400); Red Blood Count 4.25 M/mcL (3.82-4.97); Red Cell Distribution Width 17.4 % (11.5-14.5); Segmented Neutrophils % 77.9 %
[2018-01-18] MEDS: *HR* Heparin 5,000 UNIT/ML VIAL SQ SCH ×2 (06:21→17:11)
[2018-01-18 06:22] LABS: Hemoglobin 10.6 g/dL (11.5-15.4)
[2018-01-18 06:52] LABS: Calcium 8.2 mg/dL (8.6-10.3)
[2018-01-18] MEDS ORDERED: 0.9 % Sodium Chloride 1,000 ML IVC SCH (08:00)
[2018-01-18 08:05] LABS: Estimated Average Glucose 269 mg/dl
[2018-01-18] MEDS: Diltiazem CD (24hr) 120 MG CAPSULE PO SCH (08:06)
[2018-01-18] MEDS: tiZANidine 4 MG TABLET PO SCH ×3 (08:06→20:15)
[2018-01-18] MEDS: Ascorbic Acid 500 MG TABLET PO SCH ×2 (08:06→20:14)
[2018-01-18] MEDS: Insulin DETEMIR 100 UNIT/ML X5UNITS SQ SCH ×2 (08:06→20:24)
[2018-01-18] MEDS: Lactobacillus 1 EACH CAP.SPRINK PO SCH ×2 (08:06→20:10)
[2018-01-18] MEDS: Insulin LISPRO 300 UNITS/3 ML VIAL SQ SCH ×4 (08:07→20:24)
[2018-01-18] MEDS: Furosemide 40 MG TABLET PO SCH ×2 (08:07→17:11)
[2018-01-18] MEDS: Nystatin POWDER 30 GM BOTTLE TP SCH ×2 (08:08→20:13)
[2018-01-18] MEDS: Pregabalin 75 MG CAPSULE PO SCH ×2 (08:10→20:12)
[2018-01-18 08:24] LABS: ABG Base Excess 2 mEq/L (-2 to 3); ABG HCO3 28 mEq/L (21-27); ABG Oxygen Saturation 94 % (95-98); ABG PCO2 45 mmHg (35-45); ABG PO2 72 mmHg (85-104); ABG TCO2 29 mEq/L (20-26)
[2018-01-18] MEDS ORDERED: Vancomycin 1 EACH in 0.9 % Sodium Chloride 250 ML IVPB PRN (09:00)
[2018-01-18] MEDS ORDERED: Ketoconazole 2% CRM 15 GM TUBE TP SCH (09:00)
--- NOTE | 2018-01-18 09:36 | Internal Med Progress Note ---
Date of Encounter: 01/18/18 Time of Encounter: 09:34 - Assessment and plan (1) Sepsis Current Visit: Yes Status: Acute Assessment and plan: Resolved. Likely secondary to multiple skin infections and UTI. Continue IV vancomycin and IV zosyn. Stop IVF due to correction of hyponatremia as per below. Monitor labwork and vitals closely. Qualifiers: Sepsis type: sepsis due to unspecified organism Qualified Code(s): A41.9 - Sepsis, unspecified organism (2) Sacral decubitus ulcer, stage III Current Visit: No Status: Acute Assessment and plan: Wound care consulted. On IV antibiotics as per above. Resposition Q2H. (3) Bilateral lower leg cellulitis Current Visit: Yes Status: Chronic Assessment and plan: Podiatry and wound care consulted; appreciate input. IV antibiotics as per above. (4) Diabetic foot ulcer Current Visit: Yes Status: Chronic Assessment and plan: Podiatry and wound care consulted; appreciate input. IV antibiotics as per above. Qualifiers: Diabetic foot ulcer location: midfoot Diabetes mellitus type: type 2 Laterality: right Non-pressure ulcer stage: limited to breakdown of skin Qualified Code(s): E11.621 - Type 2 diabetes mellitus with foot ulcer; L97.411 - Non-pressure chronic ulcer of right heel and midfoot limited to breakdown of skin; L97.411 - Non-pressure chronic ulcer of right heel and midfoot limited to breakdown of skin; L97.411 - Non-pressure chronic ulcer of right heel and midfoot limited to breakdown of skin; L97.411 - Non-pressure chronic ulcer of right heel and midfoot limited to breakdown of skin (5) UTI (urinary tract infection) Current Visit: Yes Status: Acute Assessment and plan: IV antibiotics as per above. Follow up on urine culture and sensitivities. Qualifiers: Urinary tract infection type: site unspecified Hematuria presence: without hematuria Qualified Code(s): N39.0 - Urinary tract infection, site not specified (6) Hyponatremia Current Visit: Yes Status: Acute Assessment and plan: Improved. Corrected 10 over last 24 hours. Will discontinue IVF. Recheck BMP in AM. (7) Acute on chronic renal failure Current Visit: Yes Status: Acute Assessment and plan: Stopped IVF as per above. Encourage PO hydration. Recheck BMP in AM. Qualifiers: Acute renal failure type: unspecified Chronic kidney disease stage: stage 3 (moderate) Qualified Code(s): N17.9 - Acute kidney failure, unspecified; N18.3 - Chronic kidney disease, stage 3 (moderate) (8) HLD (hyperlipidemia) Current Visit: Yes Status: Chronic Assessment and plan: Continue home medications. Qualifiers: Hyperlipidemia type: mixed hyperlipidemia Qualified Code(s): E78.2 - Mixed hyperlipidemia (9) HTN (hypertension) Current Visit: Yes Status: Chronic Assessment and plan: Continue home medications. Qualifiers: Hypertension type: essential hypertension Qualified Code(s): I10 - Essential (primary) hypertension (10) Morbid obesity Current Visit: Yes Status: Chronic Assessment and plan: Counselled on lifestyle modifications. (11) Sleep apnea Current Visit: Yes Status: Chronic Assessment and plan: CPAP QHS and PRN. RT consulted. Qualifiers: Sleep apnea type: unspecified type Qualified Code(s): G47.30 - Sleep apnea , unspecified (12) Type 2 diabetes mellitus Current Visit: Yes Status: Chronic Assessment and plan: Continue accuchecks and high dose SSI QID AC/HS. Continue levemir. 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 - Time Spent With Patient Total time spent is greater than 50% in coordination of care (as documented) at patient's floor/unit and/or counseling patient: less than 15 minutes - Subjective Interval history: Patient had no acute events overnight. She states that she feels "better" this morning. Nursing staff states that she was a little difficult to arouse this AM , but she did not have her CPAP last night. ABG this AM was WNL. She denies fever, chills, chest pain, SOB, nausea, or vomiting. She still has some abdominal pain, but improved from yesterday. She has no other complaints at this time. - Constitutional Vitals: Temp Pulse Resp BP Pulse Ox 98 F 88 16 112/66 92 01/18/18 07:44 01/18/18 07:44 01/18/18 07:44 01/18/18 07:44 01/18/18 08:48 General appearance: Present: cooperative, A&O X 3, morbidly obese, pleasant, no acute distress, answers questions appropriately - Respiratory Respiratory exam: Present: CTAB. Absent: accessory muscle use, rales, rhonchi, wheezes Additional comments: Normal WOB - Cardiovascular Cardiovascular exam: Present: RRR, +S1, +S2. Absent: diastolic murmur, gallop, rubs, systolic murmur Additional comments: 2+ BLE edema - GI/Abdominal GI/Abdominal exam: Present: normal bowel sounds, soft. Absent: distended, hepatomegaly, mass, splenomegaly, tenderness - Psychiatric Psychiatric exam: Present: normal affect, normal mood. Absent: agitated, anxious, depressed - Skin Additional comments: Right heel ulcer with eschar, multiple ulcers on BLE, significant BLE erythema and mild weeping with warmth and edema, multiple erthematous areas on thighs and trunk Internal Medicine: Result - Labs CBC & Chem 7: 01/18/18 06:01 01/18/18 06:01 Labs: Short CBC 01/18/18 Range/Units 06:01 WBC 10.7 (4.3-11.1) K/mcL Hgb 10.6 L D (11.5-15.4) g/dL Hct 32.7 L (35.3-44.9) % Plt Count 215 (140-400) K/mcL Neutrophils # 8.3 (1.6-8.9) K/mcL BMP 01/18/18 06:01 Sodium 131 L D Potassium 4.0 Chloride 100 Carbon Dioxide 23 BUN 87 H Creatinine 2.36 H Glucose 89 Calcium 8.2 L - ABG Interpretation ABG results: ABG ABG pH 7.40 pH Units (7.32-7.45) 01/18/18 08:06 ABG pCO2 45 mmHg (35-45) 01/18/18 08:06 ABG pO2 72 mmHg (85-104) L 01/18/18 08:06 ABG O2 Saturation 94 % (95-98) L 01/18/18 08:06 PT/INR, D-dimer PT 13.4 Seconds (9.4-12.1) H 01/17/18 18:20 - Impressions Impressions Foot X-Ray 01/18/18 09:00 IMPRESSION: Persistent, but improved diffuse soft tissue swelling. No radiographic evidence of osteomyelitis. No acute osseous abnormality. D/ / Dontrell Ybarra MD / Dontrell Ybarra MD Interpreting Provider: Dontrell Ybarra MD Consult Discharge Plan - Plan Referrals: Jc Tsai MD [Primary Care Provider] -
[2018-01-18] MEDS: Fluticasone Propionate Nasal 50 MCG/SPRAY BOTTLE NS SCH (10:23)
[2018-01-18] MEDS: Gentamicin Oint 15 GM TUBE TP SCH ×2 (10:24→20:11)
--- NOTE | 2018-01-18 12:34 | Podiatry Consult Note ---
Date of Encounter: 01/18/18 Time of Encounter: 08:45 Assessment and Plan (1) Diabetes mellitus Current visit: No Status: Chronic Qualifiers: Diabetes mellitus type: type 2 Diabetes mellitus senior living insulin use: with ferry terminal agent use Diabetes mellitus complication status: with skin complications Diabetes mellitus complication detail: with other skin complication Qualified Code(s): E11.628 - Type 2 diabetes mellitus with other skin complications; Z79.4 - [facility] (current) use of insulin (2) Cellulitis Current visit: Yes Status: Acute Cellulitis of BLE. WBC: 18.3 upon admission, 10.7 today. Temp: 98.0 F ESR: 115, CRP: 182 Plan: Continue antibiotic therapy per Hospitalist. Wound care orders written. Cleanse BLE daily with mild soap and water, pat dry, apply Santyl ointment to ulcerations of the right foot daily with 4x4 dry gauze , apply adaptic to the anterior aspect of BLE with 4x4 gauze over the open areas , apply kerlix with yon wrap from toes to tibia. Will continue to follow patient closely. Qualifiers: Site of cellulitis: trunk Site of cellulitis of trunk: abdominal wall Qualified Code(s): L03.311 - Cellulitis of abdominal wall (3) Venous stasis dermatitis of both lower extremities Current visit: No Status: Chronic (4) Diabetic foot ulcer Current visit: Yes Status: Chronic Deep tissue injury to the plantar aspect of the right heel, unstageable. Partial thickness ulceration to sub #1 metatarsal head right foot. Foot is malodorous. Xray of right foot showed persistent, but improved diffuse soft tissue swelling. No radiographic evidence of osteomyelitis. No acute osseous abnormality. WBC: 18.3 upon admission, 10.7 today. ESR: 115, CRP: 182 Plan: Continue wound care with Santyl ointment to ulcerations of the right foot daily with 4x4 dry gauze, apply adaptic to the anterior aspect of BLE with 4x4 gauze over the open areas, apply kerlix with yon wrap from toes to tibia. Will continue to follow patient closely. Qualifiers: Diabetic foot ulcer location: midfoot Diabetes mellitus type: type 2 Laterality: right Non-pressure ulcer stage: limited to breakdown of skin Qualified Code(s): E11.621 - Type 2 diabetes mellitus with foot ulcer; L97.411 - Non-pressure chronic ulcer of right heel and midfoot limited to breakdown of skin History of Present Illness HPI: Ms. Magallanes is a 57 year old female admitted to [place] for sepsis. Patient has a medical history significant for HTN, morbid obesity, DM with neuropathy, HTN, GERD, Depression, REGINALD, acute renal failure. Patient was sent to the emergency room yesterday from the wound care clinic for a fever. Patient was started on IV vancomycin and Zosyn for cellulitis of bilateral lower extremities and a urinary tract infection. Podiatry was consulted for cellulitis and ulcerations to both feet. Patient has a history of chronic ulcerations with recurrent cellulitis to bilateral lower extremities. Patient is being managed in wound care by Dr. Stoll. Patient states over the past couple days she has had a fever with nausea. Patient has a dressing intact to the right foot. Patient lives at home with her and ambulates with a walker. Hgb A1C of 11. Past Med Surg Social Fam HX - Past Medical History Medical history: CHF, diabetes, hypertension, other Additional medical history: DM Neuropathy Psychiatric history: depression - Past Surgical History Surgical History: hysterectomy, other Additional surgical history: neck surgery, - Social History Smoking Status: Never smoker Smokeless Tobacco Status: No Alcohol use: none Drug use: none - Family History Mother Adopted: No Family Member Ethnicity: Non- Living Status: Hx Family Endocrine Disorder: Yes (diabetes type 2) Father Adopted: No Family Member Ethnicity: Non- Living Status: Hx Family Cardiac Disorders: Yes (hypertension) Hx Family Respiratory Disorders: No Hx Family Cancer: No Hx Family GI Disorders: No Hx Family Endocrine Disorder: Yes (kidney disease) Medications and Allergies Atorvastatin [Lipitor] 40 mg PO HS 01/11/16 [History] Insulin ASPART [Novolog Flexpen] 6 - 14 unit SQ TID 01/11/16 [History] Latanoprost [Xalatan] 1 drop BOTH EYES HS 01/11/16 [History] Primidone [Mysoline] 25 - 50 mg PO BID PRN 01/11/16 [History] Acetaminophen [Tylenol] 650 mg PO Q6HR PRN #0 tablet 01/12/16 [Rx] Ascorbic Acid [Vitamin C] 500 mg PO BID 03/25/16 [History] Docusate Sodium [Colace] 200 mg PO BID 09/02/16 [History] Furosemide [Lasix] 40 mg PO BID 12/06/16 [History] Fluticasone Propionate Nasal [Flonase] 2 spray NS DAILY #1 bottle 08/28/17 [Rx] Guaifenesin [Guaifenesin ER] 600 mg PO BID PRN #20 tab.er.12h 08/28/17 [Rx] Brimonidine Tartrate/Timolol [Combigan 0.2%-0.5% Eye Drops] 1 drop OP BID [History] Diltiazem HCl [Diltiazem 12Hr ER] 120 mg PO DAILY 11/10/17 [History] Esomeprazole Magnesium [Nexium] 40 mg PO DAILY 11/10/17 [History] Gentamicin Oint [Garamycin] 1 appl TP BID 11/10/17 [History] Ketoconazole 2% CRM [Nizoral Cream] 1 appl TP DAILY 11/10/17 [History] Ketorolac Tromethamine 1 drop OP QID 11/10/17 [History] Losartan Potassium [Cozaar] 100 mg PO DAILY 11/10/17 [History] Tizanidine HCl 4 mg PO TID 11/20/17 [History] Calcium Carbonate [Tums] 1,000 mg PO Q4HR PRN tab.chew 11/24/17 [Rx] Carvedilol [Coreg] 6.25 mg PO BIDWM tablet 11/24/17 [Rx] Collagenase Oint [Santyl] 1 appl TP BID #1 tube 11/24/17 [Rx] Lactobacillus Acidophilus [Acidophilus] 1 each PO BID #10 capsule 11/24/17 [Rx] Miconazole w/zinc oxide&karaya [Antifungal Extra Thick] 1 appl TP BID #1 tube [Rx] Pregabalin [Lyrica] 75 mg PO BID 30 Days #60 capsule 11/24/17 [Rx] clonazePAM [Klonopin] 0.5 mg PO BID PRN 5 Days #10 tablet 11/24/17 [Rx] Gabapentin [Neurontin] 300 mg PO HS 01/17/18 [History] Insulin Glargine,Hum.rec.anlog [Basaglar Kwikpen U-100] 40 unit SQ BID 01/17/18 [History] Potassium Chloride [K-Tab ER] 20 meq PO QID 01/17/18 [History] 3 Allergy/AdvReac Type Severity Reaction Status Date / Time lisinopril [From Zestril] Allergy Rash Verified 01/17/18 13:50 All Systems Reviewed: The remainder of the systems were reviewed and are negative Physical Exam - Constitutional Vitals: Temp Pulse Resp BP Pulse Ox 97.3 F L 72 15 95/56 95 01/18/18 11:21 01/18/18 11:21 01/18/18 11:21 01/18/18 11:21 01/18/18 11:21 Exam: General appearance: alert awake oriented X 3. Calm and pleasant, no acute distress.. Vascular: Unable to palpate pedal pulses due to edema, No evidence of cyanosis, pallor or rubor, Edema graded at 2+/4, Skin temperature warm, Homans Sign negative, capillary refill time is immediate to digits.. Integument: Skin with decreased turgor, decreased subcutaneous tissue, skin thin and shiny with trophic changes associated with comorbidities as described in history. Erythema with cobblestone appearance to BLE, skin is warm. Wound #1: Unstageable ulceration to the plantar aspect of right heel measuring 6 cm in length x 6 cm in width, base of wound is black, no pus, malodorous, light periwound erythema, no streaking, no fluctuance, no exposed bone, no ligament or tendon. Moderate amount of serous drainage observed to dressing. #2: Partial thickness ulcer to Sub #1 metatarsal head of right foot measuring 0.7 cm in length x 1.5 cm in width, base of wound is red, no pus, no odor, no warmth, no streaking, no fluctuance, no undermining, no sinus tract. #3 Venous ulcer to anterior tibial region or right lower leg measuring 0.7 cm in length x 1.5 cm in width, base of wound is red, no pus, no odor, no warmth, no streaking. #4 Venous ulcer to anterior tibial region or left lower leg measuring 0.7 cm in length x 0.5 cm in width, base of wound is red, no pus, no odor, no warmth, no streaking. Scattered dried scabs to toes of both feet. Nails #1 through #5 of both feet are thick, elongated, and mycotic. Results - Labs Result Diagrams: 01/18/18 06:01 01/18/18 06:01 Labs: Abnormal lab results Hgb 10.6 g/dL (11.5-15.4) L D 01/18/18 06:01 Hct 32.7 % (35.3-44.9) L 01/18/18 06:01 MCV 76.9 fL (83.0-100.0) L 01/18/18 06:01 MCH 24.9 pg (28.0-33.3) L 01/18/18 06:01 RDW 17.4 % (11.5-14.5) H 01/18/18 06:01 ESR 115 mm/hr (0-15) H 01/18/18 06:01 PT 13.4 Seconds (9.4-12.1) H 01/17/18 18:20 ABG pO2 72 mmHg (85-104) L 01/18/18 08:06 ABG HCO3 28 mEq/L (21-27) H 01/18/18 08:06 ABG Total CO2 29 mEq/L (20-26) H 01/18/18 08:06 ABG O2 Saturation 94 % (95-98) L 01/18/18 08:06 Sodium 131 mEq/L (136-145) L D 01/18/18 06:01 BUN 87 mg/dL (6-20) H 01/18/18 06:01 Creatinine 2.36 mg/dL (0.60-1.20) H 01/18/18 06:01 Est GFR ( Amer) 26 (> 60) L 01/18/18 06:01 Est GFR (Non-Af Amer) 21 (> 60) L 01/18/18 06:01 BUN/Creatinine Ratio 37 (6-26) H 01/18/18 06:01 POC Glucose 339 mg/dL (70-99) H 01/17/18 18:51 Hemoglobin A1c 11.0 % (-5.6) H 01/18/18 06:01 Calcium 8.2 mg/dL (8.6-10.3) L 01/18/18 06:01 AST 7 Units/L (13-39) L 01/17/18 14:46 Alkaline Phosphatase 111 Units/L (34-104) H 06/27/18 14:46 C-Reactive Protein 182 mg/L (Less than 10) H 01/18/18 06:01 Albumin 3.1 g/dL (3.5-5.7) L 01/17/18 14:46 Globulin 5.3 g/dL (2.4-3.5) H 01/17/18 14:46 Albumin/Globulin Ratio 0.6 (1.1-2.2) L 01/17/18 14:46 Urine Clarity Turbid (Clear) A 01/17/18 15:20 Urine Protein 100 mg/dL (Neg-Trace) H 01/17/18 15:20 Urine Glucose (UA) 500 mg/dL (Normal) H 01/17/18 15:20 Urine Ketones Trace mg/dL (Negative) H 01/17/18 15:20 Urine Blood Moderate (Negative) H 01/17/18 15:20 Urine Bilirubin Moderate (Negative) H 01/17/18 15:20 Ur Leukocyte Esterase Large (Negative) H 01/17/18 15:20 Urine Microscopic RBC 5-15 per hpf (0-3) H 01/17/18 15:20 Urine Microscopic WBC TNTC per hpf (0-3) H 01/17/18 15:20 Ur Squamous Epith Cells Many per lpf (None-Few) H 01/17/18 15:20 Urine Bacteria Many per hpf (None-Few) H 01/17/18 15:20 Urine Yeast Few per hpf (None Seen) H 01/17/18 15:20 Ur Culture Indicated? NO. (NO) A 01/17/18 15:20 H & H 01/18/18 Range/Units 06:01 Hgb 10.6 L D (11.5-15.4) g/dL Hct 32.7 L (35.3-44.9) % All other labs normal. Consult Discharge Plan - Plan Referrals: Jc Tsai MD [Primary Care Provider] -
[2018-01-18] MEDS ORDERED: Miconazole w/zinc oxide&karaya 92 APPL/92 GM TUBE TP SCH (14:30)
[2018-01-18] MEDS: Piperacillin/Tazobactam 3.375 GM in 0.9 % Sodium Chloride Mini Bag 100 ML IVPB SCH (16:02)
[2018-01-18] MEDS: Latanoprost 2.5 ML BOTTLE BOTH EYES SCH (20:14)
[2018-01-19] MEDS: Piperacillin/Tazobactam 3.375 GM in 0.9 % Sodium Chloride Mini Bag 100 ML IVPB SCH ×3 (01:04→16:43)
[2018-01-19] MEDS: *HR* Heparin 5,000 UNIT/ML VIAL SQ SCH ×2 (05:22→17:05)
[2018-01-19 06:41] LABS: Basophils % 0.3 %; Eosinophils # 0.2 K/mcL (0.0-0.6); Eosinophils % 1.4 %; Hematocrit 33.3 % (35.3-44.9); Hemoglobin 10.6 g/dL (11.5-15.4); Immature Granulocytes % 0.9 % (0-4); Lymphocytes # 1.8 K/mcL (0.6-4.6); Lymphocytes % 14.6 %; Mean Corpuscular HGB Conc 31.8 g/dL (31.6-35.5); Mean Corpuscular Hemoglobin 25.1 pg (28.0-33.3); Mean Corpuscular Volume 78.9 fL (83.0-100.0); Mean Platelet Volume 12.1 fL (9.4-12.4); Monocytes % 7.6 %; Neutrophils # 9.3 K/mcL (1.6-8.9); Platelet Count 217 K/mcL (140-400); Red Blood Count 4.22 M/mcL (3.82-4.97); Segmented Neutrophils % 75.2 %
[2018-01-19 06:47] LABS: Potassium 4.3 mEq/L (3.5-5.1)
[2018-01-19] MEDS: Ascorbic Acid 500 MG TABLET PO SCH ×2 (08:05→21:36)
[2018-01-19] MEDS: tiZANidine 4 MG TABLET PO SCH ×3 (08:05→22:10)
[2018-01-19] MEDS: Insulin LISPRO 300 UNITS/3 ML VIAL SQ SCH ×4 (08:05→21:31)
[2018-01-19] MEDS: Pregabalin 75 MG CAPSULE PO SCH ×2 (08:06→21:33)
[2018-01-19] MEDS: Furosemide 40 MG TABLET PO SCH ×2 (08:06→17:03)
[2018-01-19] MEDS: Lactobacillus 1 EACH CAP.SPRINK PO SCH ×2 (08:06→21:30)
[2018-01-19] MEDS: Diltiazem CD (24hr) 120 MG CAPSULE PO SCH (08:06)
[2018-01-19] MEDS: Fluticasone Propionate Nasal 50 MCG/SPRAY BOTTLE NS SCH (08:08)
[2018-01-19] MEDS: Insulin DETEMIR 100 UNIT/ML X5UNITS SQ SCH ×2 (08:12→21:32)
--- NOTE | 2018-01-19 10:30 | Internal Med Progress Note ---
Date of Encounter: 01/19/18 Time of Encounter: 10:27 - Assessment and plan (1) Sepsis Current Visit: Yes Status: Resolved Assessment and plan: Resolved. Likely secondary to multiple skin infections and UTI. Continue IV vancomycin and IV zosyn. Monitor labwork and vitals closely. Blood cultures x 2 no growth preliminary; follow up on final blood cultures. Qualifiers: Sepsis type: sepsis due to unspecified organism Qualified Code(s): A41.9 - Sepsis, unspecified organism (2) Sacral decubitus ulcer, stage III Current Visit: Yes Status: Chronic Assessment and plan: Wound care consulted. On IV antibiotics as per above. Resposition Q2H. (3) Bilateral lower leg cellulitis Current Visit: Yes Status: Chronic Assessment and plan: Podiatry and wound care consulted; appreciate input. IV antibiotics as per above. (4) Diabetic foot ulcer Current Visit: Yes Status: Chronic Assessment and plan: Podiatry and wound care consulted; appreciate input. IV antibiotics as per above. Qualifiers: Diabetic foot ulcer location: midfoot Diabetes mellitus type: type 2 Laterality: right Non-pressure ulcer stage: limited to breakdown of skin Qualified Code(s): E11.621 - Type 2 diabetes mellitus with foot ulcer; L97.411 - Non-pressure chronic ulcer of right heel and midfoot limited to breakdown of skin (5) UTI (urinary tract infection) Current Visit: Yes Status: Acute Assessment and plan: IV antibiotics as per above. Discontinue ruiz catheter. Follow up on urine culture and sensitivities. Qualifiers: Urinary tract infection type: site unspecified Hematuria presence: without hematuria Qualified Code(s): N39.0 - Urinary tract infection, site not specified (6) Hyponatremia Current Visit: Yes Status: Resolved Assessment and plan: Resolved. Recheck BMP in AM. (7) Acute on chronic renal failure Current Visit: Yes Status: Acute Assessment and plan: Creatinine improving. Encourage PO hydration. Recheck BMP in AM. Qualifiers: Acute renal failure type: unspecified Chronic kidney disease stage: stage 3 (moderate) Qualified Code(s): N17.9 - Acute kidney failure, unspecified; N18.3 - Chronic kidney disease, stage 3 (moderate) (8) HLD (hyperlipidemia) Current Visit: Yes Status: Chronic Assessment and plan: Continue home medications. Qualifiers: Hyperlipidemia type: mixed hyperlipidemia Qualified Code(s): E78.2 - Mixed hyperlipidemia (9) HTN (hypertension) Current Visit: Yes Status: Chronic Assessment and plan: Continue home medications. Qualifiers: Hypertension type: essential hypertension Qualified Code(s): I10 - Essential (primary) hypertension (10) Morbid obesity Current Visit: Yes Status: Chronic Assessment and plan: Counselled on lifestyle modifications. (11) Sleep apnea Current Visit: Yes Status: Chronic Assessment and plan: CPAP QHS and PRN. RT consulted. Qualifiers: Sleep apnea type: unspecified type Qualified Code(s): G47.30 - Sleep apnea , unspecified (12) Type 2 diabetes mellitus Current Visit: Yes Status: Chronic Assessment and plan: Continue accuchecks and high dose SSI QID AC/HS. Continue levemir. Qualifiers: Diabetes mellitus [facility] insulin use: with prison use Diabetes mellitus complication status: with skin complications Diabetes mellitus complication detail: with dermatitis Qualified Code(s): E11.620 - Type 2 diabetes mellitus with diabetic dermatitis; Z79.4 - [facility] (current) use of insulin; Z79.4 - [facility] (current) use of insulin; Z79.4 - exterminator (current ) use of insulin; Z79.4 - exterminator (current) use of insulin (13) DVT prophylaxis Current Visit: Yes Status: Acute Assessment and plan: Continue SQ heparin. - Time Spent With Patient Total time spent is greater than 50% in coordination of care (as documented) at patient's floor/unit and/or counseling patient: less than 15 minutes - Subjective Interval history: Patient had no acute events overnight. She states that she feels "good" this morning. She wants to go home today. I advised her that we must wait for final blood and urine cultures before we can transition her to PO antibiotics in preparation for discharge home. She is agreeable to staying until then. She denies fever, chills, chest pain, SOB, nausea, or vomiting. Abdominal pain is resolved now. She wants ruiz catheter removed. She has no other complaints at this time. - Constitutional Vitals: Temp Pulse Resp BP Pulse Ox 98.8 F 83 16 111/65 90 01/19/18 07:12 01/19/18 07:12 01/19/18 07:12 01/19/18 07:12 01/19/18 07:12 General appearance: Present: cooperative, A&O X 3, morbidly obese, pleasant, no acute distress, answers questions appropriately - Respiratory Respiratory exam: Present: CTAB. Absent: accessory muscle use, rales, rhonchi, wheezes Additional comments: Normal WOB - Cardiovascular Cardiovascular exam: Present: RRR, +S1, +S2. Absent: diastolic murmur, gallop, rubs, systolic murmur Additional comments: 2+ BLE edema - GI/Abdominal GI/Abdominal exam: Present: normal bowel sounds, soft. Absent: distended, hepatomegaly, mass, tenderness - Psychiatric Psychiatric exam: Present: normal affect, normal mood. Absent: agitated, anxious, depressed - Skin Additional comments: Right heel in bandaging, multiple ulcers on BLE, significant BLE erythema and mild weeping with warmth and edema, multiple erythematous areas on thighs and trunk Internal Medicine: Result - Labs CBC & Chem 7: 01/19/18 06:22 01/19/18 06:22 Labs: Short CBC 01/19/18 Range/Units 06:22 WBC 12.4 H (4.3-11.1) K/mcL Hgb 10.6 L (11.5-15.4) g/dL Hct 33.3 L (35.3-44.9) % Plt Count 217 (140-400) K/mcL Neutrophils # 9.3 H (1.6-8.9) K/mcL BMP 01/19/18 06:22 Sodium 136 Potassium 4.3 Chloride 105 Carbon Dioxide 23 BUN 82 H Creatinine 2.17 H Glucose 99 Calcium 8.0 L - ABG Interpretation ABG results: ABG ABG pH 7.40 pH Units (7.32-7.45) 01/18/18 08:06 ABG pCO2 45 mmHg (35-45) 01/18/18 08:06 ABG pO2 72 mmHg (85-104) L 01/18/18 08:06 ABG O2 Saturation 94 % (95-98) L 01/18/18 08:06 PT/INR, D-dimer PT 13.4 Seconds (9.4-12.1) H 01/17/18 18:20 Consult Discharge Plan - Plan Referrals: Jc Tsai MD [Primary Care Provider] -
[2018-01-19] MEDS: Nystatin POWDER 30 GM BOTTLE TP SCH ×2 (13:00→21:35)
[2018-01-19] MEDS ORDERED: Gentamicin Oint 15 GM TUBE TP SCH (14:16)
[2018-01-19] MEDS ORDERED: Miconazole w/zinc oxide&karaya 92 APPL/92 GM TUBE TP SCH (14:16)
[2018-01-19] MEDS ORDERED: Ketoconazole 2% CRM 15 GM TUBE TP SCH (14:30)
[2018-01-19] MEDS: Gentamicin Oint 15 GM TUBE TP SCH (21:30)
[2018-01-19] MEDS: Miconazole w/zinc oxide&karaya 92 APPL/92 GM TUBE TP SCH (21:30)
[2018-01-19] MEDS: Ketoconazole 2% CRM 15 GM TUBE TP SCH (21:33)
[2018-01-19] MEDS: Latanoprost 2.5 ML BOTTLE BOTH EYES SCH (21:36)
[2018-01-20] MEDS: Piperacillin/Tazobactam 3.375 GM in 0.9 % Sodium Chloride Mini Bag 100 ML IVPB SCH ×3 (05:23→21:25)
[2018-01-20] MEDS: *HR* Heparin 5,000 UNIT/ML VIAL SQ SCH ×2 (05:23→16:49)
[2018-01-20 05:29] LABS: Basophils % 0.3 %; Eosinophils # 0.1 K/mcL (0.0-0.6); Eosinophils % 1.1 %; Hematocrit 35.2 % (35.3-44.9); Hemoglobin 10.9 g/dL (11.5-15.4); Immature Granulocytes % 0.9 % (0-4); Lymphocytes # 1.9 K/mcL (0.6-4.6); Lymphocytes % 16.7 %; Mean Corpuscular Volume 80.7 fL (83.0-100.0); Mean Platelet Volume 11.4 fL (9.4-12.4); Monocytes # 0.9 K/mcL (0.0-1.3); Monocytes % 7.7 %; Neutrophils # 8.5 K/mcL (1.6-8.9); Platelet Count 249 K/mcL (140-400); Red Blood Count 4.36 M/mcL (3.82-4.97); Red Cell Distribution Width 18.2 % (11.5-14.5); Segmented Neutrophils % 73.3 %
[2018-01-20 05:45] LABS: Calcium 7.6 mg/dL (8.6-10.3); Potassium 3.4 mEq/L (3.5-5.1)
[2018-01-20] MEDS: Lactobacillus 1 EACH CAP.SPRINK PO SCH ×2 (08:03→21:19)
[2018-01-20] MEDS: tiZANidine 4 MG TABLET PO SCH ×4 (08:03→21:24)
[2018-01-20] MEDS: Fluticasone Propionate Nasal 50 MCG/SPRAY BOTTLE NS SCH (08:03)
[2018-01-20] MEDS: Furosemide 40 MG TABLET PO SCH ×2 (08:03→16:25)
[2018-01-20] MEDS: Pregabalin 75 MG CAPSULE PO SCH ×2 (08:03→21:20)
[2018-01-20] MEDS: Diltiazem CD (24hr) 120 MG CAPSULE PO SCH (08:03)
[2018-01-20] MEDS: Ascorbic Acid 500 MG TABLET PO SCH ×2 (08:03→21:24)
[2018-01-20] MEDS: Insulin DETEMIR 100 UNIT/ML X5UNITS SQ SCH ×2 (08:04→21:20)
[2018-01-20] MEDS: Insulin LISPRO 300 UNITS/3 ML VIAL SQ SCH ×4 (08:08→21:20)
[2018-01-20] MEDS: Nystatin POWDER 30 GM BOTTLE TP SCH ×2 (10:07→21:22)
--- NOTE | 2018-01-20 11:11 | Internal Med Progress Note ---
Date of Encounter: 01/20/18 Time of Encounter: 11:09 - Assessment and plan (1) Sepsis Current Visit: Yes Status: Resolved Assessment and plan: Resolved. Likely secondary to multiple skin infections and UTI. Continue IV vancomycin and IV zosyn. Monitor labwork and vitals closely. Blood cultures x 2 no growth preliminary; follow up on final blood cultures. Qualifiers: Sepsis type: sepsis due to unspecified organism Qualified Code(s): A41.9 - Sepsis, unspecified organism (2) Sacral decubitus ulcer, stage III Current Visit: Yes Status: Chronic Assessment and plan: Wound care consulted. Would culture with MRSA. On IV antibiotics as per above. Resposition Q2H. (3) Bilateral lower leg cellulitis Current Visit: Yes Status: Chronic Assessment and plan: Podiatry and wound care consulted; appreciate input. IV antibiotics as per above. (4) Diabetic foot ulcer Current Visit: Yes Status: Chronic Assessment and plan: Podiatry and wound care consulted; appreciate input. IV antibiotics as per above. Qualifiers: Diabetic foot ulcer location: midfoot Diabetes mellitus type: type 2 Laterality: right Non-pressure ulcer stage: limited to breakdown of skin Qualified Code(s): E11.621 - Type 2 diabetes mellitus with foot ulcer; L97.411 - Non-pressure chronic ulcer of right heel and midfoot limited to breakdown of skin (5) UTI (urinary tract infection) Current Visit: Yes Status: Acute Assessment and plan: Urine culture with gram positive cocci and ESBL Klebsiella. IV antibiotics as per above. Discontinue ruiz catheter. Follow up on urine culture and sensitivities. Qualifiers: Urinary tract infection type: site unspecified Hematuria presence: without hematuria Qualified Code(s): N39.0 - Urinary tract infection, site not specified (6) Hyponatremia Current Visit: Yes Status: Resolved Assessment and plan: Resolved. Recheck BMP in AM. (7) Acute on chronic renal failure Current Visit: Yes Status: Acute Assessment and plan: Creatinine improving. Encourage PO hydration. Recheck BMP in AM. Qualifiers: Acute renal failure type: unspecified Chronic kidney disease stage: stage 3 (moderate) Qualified Code(s): N17.9 - Acute kidney failure, unspecified; N18.3 - Chronic kidney disease, stage 3 (moderate) (8) HLD (hyperlipidemia) Current Visit: Yes Status: Chronic Assessment and plan: Continue home medications. Qualifiers: Hyperlipidemia type: mixed hyperlipidemia Qualified Code(s): E78.2 - Mixed hyperlipidemia (9) HTN (hypertension) Current Visit: Yes Status: Chronic Assessment and plan: Continue home medications. Qualifiers: Hypertension type: essential hypertension Qualified Code(s): I10 - Essential (primary) hypertension (10) Morbid obesity Current Visit: Yes Status: Chronic Assessment and plan: Counselled on lifestyle modifications. (11) Sleep apnea Current Visit: Yes Status: Chronic Assessment and plan: CPAP QHS and PRN. RT consulted. Qualifiers: Sleep apnea type: unspecified type Qualified Code(s): G47.30 - Sleep apnea , unspecified (12) Type 2 diabetes mellitus Current Visit: Yes Status: Chronic Assessment and plan: Continue accuchecks and high dose SSI QID AC/HS. Continue levemir. 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 - Time Spent With Patient Total time spent is greater than 50% in coordination of care (as documented) at patient's floor/unit and/or counseling patient: less than 15 minutes - Subjective Interval history: Patient had no acute events overnight. She states that she feels "ok" this morning. We discussed positive MRSA wound culture and ESBL Klebsiella urine culture. She denies fever, chills, chest pain, SOB, abdominal pain, nausea, or vomiting. She has no complaints at this time. - Constitutional Vitals: Temp Pulse Resp BP Pulse Ox 98.1 F 82 18 125/66 96 01/20/18 07:27 01/20/18 07:27 01/20/18 07:27 01/20/18 07:27 01/20/18 07:27 General appearance: Present: cooperative, A&O X 3, morbidly obese, pleasant, no acute distress, answers questions appropriately - Respiratory Respiratory exam: Present: CTAB. Absent: accessory muscle use, rales, rhonchi, wheezes Additional comments: Normal WOB - Cardiovascular Cardiovascular exam: Present: RRR, +S1, +S2. Absent: diastolic murmur, gallop, rubs, systolic murmur Additional comments: 2+ BLE edema - GI/Abdominal GI/Abdominal exam: Present: normal bowel sounds, soft. Absent: distended, hepatomegaly, mass, splenomegaly, tenderness - Psychiatric Psychiatric exam: Present: normal affect, normal mood. Absent: agitated, anxious, depressed - Skin Additional comments: Right heel in bandaging, multiple ulcers on BLE, significant BLE erythema and mild weeping with warmth and edema, multiple erythematous areas on thighs and trunk Internal Medicine: Result - Labs CBC & Chem 7: 01/20/18 04:48 01/20/18 04:48 Labs: Short CBC 01/20/18 Range/Units 04:48 WBC 11.6 H (4.3-11.1) K/mcL Hgb 10.9 L (11.5-15.4) g/dL Hct 35.2 L (35.3-44.9) % Plt Count 249 (140-400) K/mcL Neutrophils # 8.5 (1.6-8.9) K/mcL BMP 01/20/18 04:48 Sodium 139 Potassium 3.4 L Chloride 103 Carbon Dioxide 26 BUN 72 H Creatinine 1.88 H Glucose 116 H Calcium 7.6 L - ABG Interpretation ABG results: ABG ABG pH 7.40 pH Units (7.32-7.45) 01/18/18 08:06 ABG pCO2 45 mmHg (35-45) 01/18/18 08:06 ABG pO2 72 mmHg (85-104) L 01/18/18 08:06 ABG O2 Saturation 94 % (95-98) L 01/18/18 08:06 PT/INR, D-dimer PT 13.4 Seconds (9.4-12.1) H 01/17/18 18:20 - Impressions Impressions Foot X-Ray 01/18/18 09:00 IMPRESSION: Persistent, but improved diffuse soft tissue swelling. No radiographic evidence of osteomyelitis. No acute osseous abnormality. D/ / 01/18/2018 09:41:50 Dontrell Ybarra MD / earnold Interpreting Provider: Dontrell Ybarra MD Consult Discharge Plan - Plan Referrals: Jc Tsai MD [Primary Care Provider] -
[2018-01-20] MEDS ORDERED: Vancomycin 1 EACH in EMPTY BAG 1 EACH IVPB SCH (16:00)
[2018-01-20] MEDS: Miconazole w/zinc oxide&karaya 92 APPL/92 GM TUBE TP SCH (21:19)
[2018-01-20] MEDS: Gentamicin Oint 15 GM TUBE TP SCH (21:20)
[2018-01-20] MEDS: Latanoprost 2.5 ML BOTTLE BOTH EYES SCH (21:21)
[2018-01-20] MEDS: Ketoconazole 2% CRM 15 GM TUBE TP SCH (21:21)
[2018-01-21] MEDS: Piperacillin/Tazobactam 3.375 GM in 0.9 % Sodium Chloride Mini Bag 100 ML IVPB SCH ×3 (06:08→21:39)
[2018-01-21] MEDS: *HR* Heparin 5,000 UNIT/ML VIAL SQ SCH ×2 (06:14→17:04)
[2018-01-21] MEDS: Insulin LISPRO 300 UNITS/3 ML VIAL SQ SCH ×4 (08:29→21:56)
[2018-01-21] MEDS: Pregabalin 75 MG CAPSULE PO SCH ×2 (08:30→21:39)
[2018-01-21] MEDS: Ascorbic Acid 500 MG TABLET PO SCH ×2 (08:31→21:39)
[2018-01-21] MEDS: Lactobacillus 1 EACH CAP.SPRINK PO SCH ×2 (08:31→21:39)
[2018-01-21] MEDS: tiZANidine 4 MG TABLET PO SCH ×3 (08:31→21:39)
[2018-01-21] MEDS: Diltiazem CD (24hr) 120 MG CAPSULE PO SCH (08:31)
[2018-01-21] MEDS: Insulin DETEMIR 100 UNIT/ML X5UNITS SQ SCH ×2 (08:36→21:57)
[2018-01-21] MEDS: Nystatin POWDER 30 GM BOTTLE TP SCH ×2 (08:36→21:44)
[2018-01-21] MEDS: Fluticasone Propionate Nasal 50 MCG/SPRAY BOTTLE NS SCH (08:36)
[2018-01-21] MEDS: Furosemide 40 MG TABLET PO SCH ×2 (08:40→15:46)
[2018-01-21 09:28] LABS: Basophils % 0.3 %; Eosinophils # 0.1 K/mcL (0.0-0.6); Eosinophils % 0.5 %; Hematocrit 34.7 % (35.3-44.9); Hemoglobin 10.5 g/dL (11.5-15.4); Immature Granulocytes % 0.8 % (0-4); Lymphocytes # 1.1 K/mcL (0.6-4.6); Lymphocytes % 9.5 %; Mean Corpuscular HGB Conc 30.3 g/dL (31.6-35.5); Mean Corpuscular Hemoglobin 24.3 pg (28.0-33.3); Mean Corpuscular Volume 80.3 fL (83.0-100.0); Mean Platelet Volume 11.2 fL (9.4-12.4); Monocytes # 0.6 K/mcL (0.0-1.3); Monocytes % 4.8 %; Neutrophils # 9.8 K/mcL (1.6-8.9); Platelet Count 291 K/mcL (140-400); Red Blood Count 4.32 M/mcL (3.82-4.97); Red Cell Distribution Width 18.3 % (11.5-14.5); Segmented Neutrophils % 84.1 %
[2018-01-21 09:40] LABS: Calcium 7.5 mg/dL (8.6-10.3); Potassium 3.6 mEq/L (3.5-5.1)
--- NOTE | 2018-01-21 12:17 | Internal Med Progress Note ---
Date of Encounter: 01/21/18 Time of Encounter: 12:11 - Assessment and plan (1) UTI (urinary tract infection) Current Visit: Yes Status: Acute Assessment and plan: Urine culture with gram positive cocci and ESBL Klebsiella. ESBL E.coli sensitive to Etarpenem, Imipenem, and Zosyn only Continue Zosyn-Day 11/30 Infectious disease consulted for discharge antibiotic recommendation SW for home infusion Qualifiers: Urinary tract infection type: site unspecified Hematuria presence: without hematuria Qualified Code(s): N39.0 - Urinary tract infection, site not specified (2) DVT prophylaxis Current Visit: Yes Status: Acute Assessment and plan: Continue SQ heparin. (3) HTN (hypertension) Current Visit: Yes Status: Chronic Assessment and plan: Continue home medications. Qualifiers: Hypertension type: essential hypertension Qualified Code(s): I10 - Essential (primary) hypertension (4) HLD (hyperlipidemia) Current Visit: Yes Status: Chronic Assessment and plan: Continue home medications. Qualifiers: Hyperlipidemia type: mixed hyperlipidemia Qualified Code(s): E78.2 - Mixed hyperlipidemia (5) Sepsis Current Visit: Yes Status: Resolved Assessment and plan: Resolved. Likely secondary to multiple skin infections and UTI. Continue IV vancomycin and IV zosyn. Monitor labwork and vitals closely. Blood cultures x 2 no growth preliminary; follow up on final blood cultures. Qualifiers: Sepsis type: sepsis due to unspecified organism Qualified Code(s): A41.9 - Sepsis, unspecified organism (6) Morbid obesity Current Visit: Yes Status: Chronic Assessment and plan: Counselled on lifestyle modifications. (7) Sacral decubitus ulcer, stage III Current Visit: Yes Status: Chronic Assessment and plan: Wound care consulted. Would culture with MRSA. On IV antibiotics as per above. Resposition Q2H. Patient may need chronic Rogers if incontinent of urine (8) Diabetic foot ulcer Current Visit: Yes Status: Chronic Assessment and plan: Podiatry and wound care consulted; appreciate input. IV antibiotics as per above-day 5 Qualifiers: Diabetic foot ulcer location: midfoot Diabetes mellitus type: type 2 Laterality: right Non-pressure ulcer stage: limited to breakdown of skin Qualified Code(s): E11.621 - Type 2 diabetes mellitus with foot ulcer; L97.411 - Non-pressure chronic ulcer of right heel and midfoot limited to breakdown of skin (9) Sleep apnea Current Visit: Yes Status: Chronic Assessment and plan: CPAP QHS and PRN. RT consulted. Qualifiers: Sleep apnea type: unspecified type Qualified Code(s): G47.30 - Sleep apnea , unspecified (10) Type 2 diabetes mellitus Current Visit: Yes Status: Chronic Assessment and plan: Continue accuchecks and high dose SSI QID AC/HS. Continue levemir. 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 IV antibiotics as per above. (12) Acute on chronic renal failure Current Visit: Yes Status: Acute Assessment and plan: Creatinine improving. Encourage PO hydration. Qualifiers: Acute renal failure type: unspecified Chronic kidney disease stage: stage 3 (moderate) Qualified Code(s): N17.9 - Acute kidney failure, unspecified; N18.3 - Chronic kidney disease, stage 3 (moderate) (13) Hyponatremia Current Visit: Yes Status: Resolved Assessment and plan: resolved - Time Spent With Patient Total time spent is greater than 50% in coordination of care (as documented) at patient's floor/unit and/or counseling patient: - Subjective Interval history: Seen and examined at the bedside She is being managed for sepsis secondary to ESBL E.coli UTI and MRSA cellulitis and infection of Stage III Sacral ulcer, DOROTHEA on CKD, Hyponatremia She also has DM with infected Diabetic foot ulcer, HTN, HLD, Morbid Obesity She is complaining of a new dry cough - Constitutional Vitals: Temp Pulse Resp BP Pulse Ox 97.5 F L 73 18 105/59 94 01/21/18 11:54 01/21/18 11:54 01/21/18 11:54 01/21/18 11:54 01/21/18 11:54 General appearance: Present: cooperative, A&O X 3, morbidly obese, pleasant, no acute distress, answers questions appropriately - Head Head exam: Present: atraumatic, normocephalic - Eye Eye exam: Present: PERRL, conjuntiva pink, sclera anicteric Pupils: Present: PERRL - Neck Neck exam general surgery: Present: supple, trachea midline. Absent: lymphadenopathy - Respiratory Respiratory exam: Present: CTAB. Absent: accessory muscle use, rales, rhonchi, wheezes - Cardiovascular Cardiovascular exam: Present: RRR, +S1, +S2. Absent: diastolic murmur, gallop, rubs, systolic murmur - GI/Abdominal GI/Abdominal exam: Present: normal bowel sounds, soft, no peritoneal signs. Absent: distended, tenderness - Extremities Exam Additional comments: Right heel in bandaging, multiple ulcers on BLE, significant BLE erythema and mild weeping with warmth and edema especially on the [place], multiple erythematous areas on thighs and trunk - Neurological Exam Neurological exam: Present: alert, CN II-XII intact, oriented X3, no focal deficits. Absent: pronater drift, facial droop, speech deficit - Skin Skin exam: Present: dry, intact Internal Medicine: Result - Labs CBC & Chem 7: 01/21/18 09:06 01/21/18 09:06 Labs: Short CBC 01/21/18 Range/Units 09:06 WBC 11.6 H (4.3-11.1) K/mcL Hgb 10.5 L (11.5-15.4) g/dL Hct 34.7 L (35.3-44.9) % Plt Count 291 (140-400) K/mcL Neutrophils # 9.8 H (1.6-8.9) K/mcL BMP 01/21/18 09:06 Sodium 140 Potassium 3.6 Chloride 102 Carbon Dioxide 31 H BUN 59 H Creatinine 1.69 H Glucose 108 H Calcium 7.5 L - ABG Interpretation ABG results: ABG ABG pH 7.40 pH Units (7.32-7.45) 01/18/18 08:06 ABG pCO2 45 mmHg (35-45) 01/18/18 08:06 ABG pO2 72 mmHg (85-104) L 01/18/18 08:06 ABG O2 Saturation 94 % (95-98) L 01/18/18 08:06 PT/INR, D-dimer PT 13.4 Seconds (9.4-12.1) H 01/17/18 18:20 Consult Discharge Plan - Plan Referrals: Jc Tsai MD [Primary Care Provider] -
[2018-01-21] MEDS: clonazePAM 0.5 MG TABLET PO PRN (21:39)
[2018-01-21] MEDS: Gentamicin Oint 15 GM TUBE TP SCH (21:41)
[2018-01-21] MEDS: Ketoconazole 2% CRM 15 GM TUBE TP SCH (21:41)
[2018-01-21] MEDS: Miconazole w/zinc oxide&karaya 92 APPL/92 GM TUBE TP SCH (21:43)
[2018-01-21] MEDS: Latanoprost 2.5 ML BOTTLE BOTH EYES SCH (21:45)
[2018-01-22] MEDS: Piperacillin/Tazobactam 3.375 GM in 0.9 % Sodium Chloride Mini Bag 100 ML IVPB SCH ×3 (05:21→23:06)
[2018-01-22] MEDS: *HR* Heparin 5,000 UNIT/ML VIAL SQ SCH ×2 (05:21→17:52)
[2018-01-22 06:15] LABS: Calcium 7.5 mg/dL (8.6-10.3); Potassium 3.4 mEq/L (3.5-5.1)
[2018-01-22 06:16] LABS: Basophils % 0.4 %; Eosinophils # 0.2 K/mcL (0.0-0.6); Eosinophils % 1.9 %; Hematocrit 34.2 % (35.3-44.9); Hemoglobin 10.3 g/dL (11.5-15.4); Immature Granulocytes % 0.6 % (0-4); Lymphocytes # 1.9 K/mcL (0.6-4.6); Lymphocytes % 20.7 %; Mean Corpuscular HGB Conc 30.1 g/dL (31.6-35.5); Mean Corpuscular Hemoglobin 24.2 pg (28.0-33.3); Mean Corpuscular Volume 80.5 fL (83.0-100.0); Mean Platelet Volume 11.3 fL (9.4-12.4); Monocytes # 0.6 K/mcL (0.0-1.3); Monocytes % 6.6 %; Neutrophils # 6.2 K/mcL (1.6-8.9); Platelet Count 235 K/mcL (140-400); Red Blood Count 4.25 M/mcL (3.82-4.97); Red Cell Distribution Width 18.6 % (11.5-14.5); Segmented Neutrophils % 69.8 %
[2018-01-22] MEDS ORDERED: Vancomycin 1 EACH in EMPTY BAG 1 EACH IVPB PRN (09:45)
[2018-01-22] MEDS: Insulin LISPRO 300 UNITS/3 ML VIAL SQ SCH ×4 (09:59→22:06)
[2018-01-22] MEDS: tiZANidine 4 MG TABLET PO SCH ×3 (10:00→23:06)
[2018-01-22] MEDS: Pregabalin 75 MG CAPSULE PO SCH ×2 (10:00→23:06)
[2018-01-22] MEDS: Ascorbic Acid 500 MG TABLET PO SCH ×2 (10:00→23:06)
[2018-01-22] MEDS: Diltiazem CD (24hr) 120 MG CAPSULE PO SCH (10:00)
[2018-01-22] MEDS: Lactobacillus 1 EACH CAP.SPRINK PO SCH ×2 (10:01→23:05)
[2018-01-22] MEDS: Furosemide 40 MG TABLET PO SCH ×2 (10:01→16:31)
[2018-01-22] MEDS: Fluticasone Propionate Nasal 50 MCG/SPRAY BOTTLE NS SCH (10:01)
[2018-01-22] MEDS: Nystatin POWDER 30 GM BOTTLE TP SCH ×2 (10:01→23:16)
--- NOTE | 2018-01-22 10:12 | Internal Med Progress Note ---
Date of Encounter: 01/22/18 Time of Encounter: 10:10 - Assessment and plan (1) Sepsis Current Visit: Yes Status: Resolved Assessment and plan: Resolved. Likely secondary to multiple skin infections and UTI. Continue IV vancomycin and IV zosyn. Monitor labwork and vitals closely. Blood cultures x 2 no growth preliminary; follow up on final blood cultures. Qualifiers: Sepsis type: sepsis due to unspecified organism Qualified Code(s): A41.9 - Sepsis, unspecified organism (2) Bilateral lower leg cellulitis Current Visit: Yes Status: Chronic Assessment and plan: Podiatry, ID, and wound care consulted; appreciate input. IV antibiotics as per above. (3) Sacral decubitus ulcer, stage III Current Visit: Yes Status: Chronic Assessment and plan: Wound care consulted. ID consulted; appreciate input. Would culture with MRSA. On IV antibiotics as per above. Resposition Q2H. Patient may need chronic Rogers if incontinent of urine. SW consulted for possible IV antibiotics at home. (4) Diabetic foot ulcer Current Visit: Yes Status: Chronic Assessment and plan: Podiatry, ID, and wound care consulted; appreciate input. IV antibiotics as per above. Qualifiers: Diabetic foot ulcer location: midfoot Diabetes mellitus type: type 2 Laterality: right Non-pressure ulcer stage: limited to breakdown of skin Qualified Code(s): E11.621 - Type 2 diabetes mellitus with foot ulcer; L97.411 - Non-pressure chronic ulcer of right heel and midfoot limited to breakdown of skin (5) UTI (urinary tract infection) Current Visit: Yes Status: Acute Assessment and plan: Urine culture with gram positive cocci and ESBL Klebsiella. ESBL Klebsiella sensitive to Etarpenem, Imipenem, and Zosyn only. Continue Zosyn. ID consulted for discharge antibiotic recommendation; appreciate input. SW consulted for possible home infusion services. Qualifiers: Urinary tract infection type: site unspecified Hematuria presence: without hematuria Qualified Code(s): N39.0 - Urinary tract infection, site not specified (6) HTN (hypertension) Current Visit: Yes Status: Chronic Assessment and plan: Continue home medications. Qualifiers: Hypertension type: essential hypertension Qualified Code(s): I10 - Essential (primary) hypertension (7) HLD (hyperlipidemia) Current Visit: Yes Status: Chronic Assessment and plan: Continue home medications. Qualifiers: Hyperlipidemia type: mixed hyperlipidemia Qualified Code(s): E78.2 - Mixed hyperlipidemia (8) Morbid obesity Current Visit: Yes Status: Chronic Assessment and plan: Counselled on lifestyle modifications. (9) Sleep apnea Current Visit: Yes Status: Chronic Assessment and plan: CPAP QHS and PRN. RT consulted. Qualifiers: Sleep apnea type: unspecified type Qualified Code(s): G47.30 - Sleep apnea , unspecified (10) Type 2 diabetes mellitus Current Visit: Yes Status: Chronic Assessment and plan: Continue accuchecks and high dose SSI QID AC/HS. Continue levemir. 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 Encourage PO hydration. Qualifiers: Acute renal failure type: unspecified Chronic kidney disease stage: stage 3 (moderate) Qualified Code(s): N17.9 - Acute kidney failure, unspecified; N18.3 - Chronic kidney disease, stage 3 (moderate) (12) Hyponatremia Current Visit: Yes Status: Resolved Assessment and plan: Resolved. (13) DVT prophylaxis Current Visit: Yes Status: Acute Assessment and plan: Continue SQ heparin. - Time Spent With Patient Total time spent is greater than 50% in coordination of care (as documented) at patient's floor/unit and/or counseling patient: less than 15 minutes - Subjective Interval history: Patient had no acute events overnight. She states that she feels "good" this morning. She wants to go home. We discussed positive MRSA wound culture and ESBL Klebsiella urine culture, and they need for an infectious disease consultation today. She denies fever, chills, chest pain, SOB, abdominal pain, nausea, or vomiting. She has no complaints at this time. - Constitutional Vitals: Temp Pulse Resp BP Pulse Ox 98.9 F 90 16 147/69 93 01/22/18 07:19 01/22/18 07:19 01/22/18 07:19 01/22/18 07:19 01/22/18 07:19 General appearance: Present: cooperative, A&O X 3, morbidly obese, no acute distress, answers questions appropriately - Respiratory Respiratory exam: Present: CTAB. Absent: accessory muscle use, rales, rhonchi, wheezes Additional comments: Normal WOB - Cardiovascular Cardiovascular exam: Present: RRR, +S1, +S2. Absent: diastolic murmur, gallop, rubs, systolic murmur Additional comments: 2+ BLE edema - GI/Abdominal GI/Abdominal exam: Present: normal bowel sounds, soft. Absent: distended, hepatomegaly, mass, splenomegaly, tenderness - Psychiatric Psychiatric exam: Present: normal affect, normal mood. Absent: agitated, anxious, depressed - Skin Additional comments: Right heel in bandaging, multiple ulcers on BLE, significant BLE erythema with warmth and edema, multiple erythematous and excoriated areas on thighs and trunk Internal Medicine: Result - Labs CBC & Chem 7: 01/22/18 05:30 01/22/18 05:30 Labs: Short CBC 01/22/18 Range/Units 05:30 WBC 8.9 (4.3-11.1) K/mcL Hgb 10.3 L (11.5-15.4) g/dL Hct 34.2 L (35.3-44.9) % Plt Count 235 (140-400) K/mcL Neutrophils # 6.2 (1.6-8.9) K/mcL BMP 01/22/18 05:30 Sodium 141 Potassium 3.4 L Chloride 101 Carbon Dioxide 34 H BUN 50 H Creatinine 1.64 H Glucose 109 H Calcium 7.5 L - ABG Interpretation ABG results: ABG ABG pH 7.40 pH Units (7.32-7.45) 01/18/18 08:06 ABG pCO2 45 mmHg (35-45) 01/18/18 08:06 ABG pO2 72 mmHg (85-104) L 01/18/18 08:06 ABG O2 Saturation 94 % (95-98) L 01/18/18 08:06 PT/INR, D-dimer PT 13.4 Seconds (9.4-12.1) H 01/17/18 18:20 Consult Discharge Plan - Plan Referrals: Jc Tsai MD [Primary Care Provider] -
--- NOTE | 2018-01-22 10:38 | Infectious Disease Consult ---
Date of Encounter: 01/22/18 Time of Encounter: 10:35 Assessment and Plan (1) Sepsis Status: Resolved Assessment and plan: Secondary to cellulitis versus UTI - Urine culture with gram positive cocci and ESBL Klebsiella. - Patient met 2 out of for sepsis criteria on admission with leukocytosis at 18.3 and a pulse of 122 - Initial lactic acid was 2.3, subsequent level was 1.4 Qualifiers: Sepsis type: sepsis due to unspecified organism Qualified Code(s): A41.9 - Sepsis, unspecified organism (2) UTI (urinary tract infection) Status: Acute Assessment and plan: Urine culture with gram positive cocci and ESBL Klebsiella. ESBL E.coli sensitive to Etarpenem, Imipenem, Zosyn, Gentamycin - Currently on Zosyn, Day 12/31 - Upon discharge, patient should be given fosfomycin, 1 packet every 48 hours; dispense 3 through 01/30/18 Qualifiers: Urinary tract infection type: site unspecified Hematuria presence: without hematuria Qualified Code(s): N39.0 - Urinary tract infection, site not specified (3) Bilateral lower leg cellulitis Status: Chronic Assessment and plan: Consulted podiatry, patient see's Dr Stoll outpatient and he agrees to follow. Iv zosyn and vancomycin - Upon discharge, we recommend that patient be given Doxycycline 100 mg by mouth twice through 01/30 (4) Sacral decubitus ulcer, stage III Status: Chronic Assessment and plan: Wound care consulted - MRSA cellulitis and infection of Stage III Sacral ulcer (5) Diabetic foot ulcer Status: Chronic Assessment and plan: Ulcer on plantar aspect of the right heel - Partial thickness ulceration to sub #1 metatarsal head R foot. - Xray of right foot showed persistent, but improved diffuse soft tissue swelling. No radiographic evidence of osteomyelitis. No acute osseous abnormality. - Management by wound care and podiatry Qualifiers: Diabetic foot ulcer location: midfoot Diabetes mellitus type: type 2 Laterality: right Non-pressure ulcer stage: limited to breakdown of skin Qualified Code(s): E11.621 - Type 2 diabetes mellitus with foot ulcer; L97.411 - Non-pressure chronic ulcer of right heel and midfoot limited to breakdown of skin (6) Diabetes mellitus Status: Chronic Assessment and plan: Accu check ac/hs with humalog sliding scale coverage - Monitor daily labs - Hemoglobin A1c is 11 Qualifiers: Diabetes mellitus type: type 2 Diabetes mellitus senior care insulin use: with predatory animal exterminator use Diabetes mellitus complication status: with skin complications Diabetes mellitus complication detail: with other skin complication Qualified Code(s): E11.628 - Type 2 diabetes mellitus with other skin complications; Z79.4 - longterm (current) use of insulin (7) HTN (hypertension) Status: Chronic Assessment and plan: Management per primary team Qualifiers: Hypertension type: essential hypertension Qualified Code(s): I10 - Essential (primary) hypertension Infectious Disease HPI - Data of Consult Consult date: 01/22/18 Requesting Physician: Dioni Garvin MD Primary Care Provider: Jc Tsai MD - Consult Narrative Reason for consult: ESBL UTI History of present illness: Patient is a 57-year-old female who was admitted for sepsis secondary to bilateral lower extremity cellulitis/diabetic ulcer/UTI on 01/17/18. We are consulted for recommendations for post-discharge antibiotics for ESBL UTI. Patient has a PMH of ARF, DM, HTN, diabetic ulcer to bilat feet/toes and hyperglycemia. Was admitted to hospitalist team for severe sepsis likely secondary to cellulitis/diabetic ulcer/UTI. Initially presented to the ER directly from wound clinic with concerns of fever and tachycardia. She reported a general feeling of being ill and subjective fevers at home for 3 days prior to presentation. She was noted to have worsening LE ulcers/ cellulitis in the wound clinic. Initial vital signs were as follows: Temperature 98.3, pulse 122, RR 18, BP 170/96, O2 sat 93. Lab workup in the ED demonstrated leukocytosis at 18.3, acute on chronic kidney failure, lactic acidosis at 2.3, hyponatremia with Na of 121, and hyperglycemia of 468. UA demonstrated the presence of a UTI. She was noted to have extensive skin erythema of the lower abdomen extending to the proximal thighs and into the perineum, which was malodorous. There was also marked dense erythema of the feet. She was given vancomycin, Zosyn, and Levaquin. Also was given IV fluids per sepsis protocol. Was also given 10 units of IV regular insulin. PICC line was placed due to poor peripheral access and expectation of prolonged antibiotics. Perineum and abdomen were treated with nystatin powder. Patient was started on IV vancomycin and Zosyn. Blood culture from 01/17/18 were negative 2. Urine CX performed on 01/18/18 grew Klebsiella pneumoniae ESBL, sensitive to Zosyn, ertapenem, gentamicin, and imipenem. Sacral ulcer and right lower extremity wound culture on 01/18/18 were both + for MRSA. Wound care and podiatry have both been consulted for management of patients sacral and lower extremity ulcer. Vancomycin was discontinued on 01/19/18. Patient is currently day 12/31 of zosyn. Patient was seen and examined at bedside today. She reports feeling better than she did on admission. Reports feeling confused when she first presented to the ER. Denies urinary frequency, urgency, back pain, nausea, vomiting, fever, chills, LE pain, or abdominal pain. Patient has no complaints this morning, and states that she would like to go home. CC: Dioni Garvin MD Past Med Surg Social Fam HX - Past Medical History Medical history: CHF, diabetes, hypertension, other Additional medical history: DM Neuropathy Psychiatric history: depression - Past Surgical History Surgical History: hysterectomy, other Additional surgical history: neck surgery, - Social History Smoking Status: Never smoker Smokeless Tobacco Status: No Alcohol use: none Drug use: none - Family History Mother Adopted: No Family Member Ethnicity: Non- Living Status: Hx Family Endocrine Disorder: Yes (diabetes type 2) Father Adopted: No Family Member Ethnicity: Non- Living Status: Hx Family Cardiac Disorders: Yes (hypertension) Hx Family Respiratory Disorders: No Hx Family Cancer: No Hx Family GI Disorders: No Hx Family Endocrine Disorder: Yes (kidney disease) Infectious Disease-CN:Meds Atorvastatin [Lipitor] 40 mg PO HS 01/11/16 [History] Insulin ASPART [Novolog Flexpen] 6 - 14 unit SQ TID 01/11/16 [History] Latanoprost [Xalatan] 1 drop BOTH EYES HS 01/11/16 [History] Primidone [Mysoline] 25 - 50 mg PO BID PRN 01/11/16 [History] Acetaminophen [Tylenol] 650 mg PO Q6HR PRN #0 tablet 01/12/16 [Rx] Ascorbic Acid [Vitamin C] 500 mg PO BID 03/25/16 [History] Docusate Sodium [Colace] 200 mg PO BID 03/25/16 [History] Furosemide [Lasix] 40 mg PO BID 12/06/16 [History] Fluticasone Propionate Nasal [Flonase] 2 spray NS DAILY #1 bottle 08/28/17 [Rx] Guaifenesin [Guaifenesin ER] 600 mg PO BID PRN #20 tab.er.12h 08/28/17 [Rx] Brimonidine Tartrate/Timolol [Combigan 0.2%-0.5% Eye Drops] 1 drop OP BID [History] Diltiazem HCl [Diltiazem 12Hr ER] 120 mg PO DAILY 11/10/17 [History] Esomeprazole Magnesium [Nexium] 40 mg PO DAILY 11/10/17 [History] Gentamicin Oint [Garamycin] 1 appl TP BID 11/10/17 [History] Ketoconazole 2% CRM [Nizoral Cream] 1 appl TP DAILY 11/10/17 [History] Ketorolac Tromethamine 1 drop OP QID 11/10/17 [History] Losartan Potassium [Cozaar] 100 mg PO DAILY 11/10/17 [History] Tizanidine HCl 4 mg PO TID 11/20/17 [History] Calcium Carbonate [Tums] 1,000 mg PO Q4HR PRN tab.chew 11/24/17 [Rx] Carvedilol [Coreg] 6.25 mg PO BIDWM tablet 11/24/17 [Rx] Collagenase Oint [Santyl] 1 appl TP BID #1 tube 11/24/17 [Rx] Lactobacillus Acidophilus [Acidophilus] 1 each PO BID #10 capsule 11/24/17 [Rx] Miconazole w/zinc oxide&karaya [Antifungal Extra Thick] 1 appl TP BID #1 tube [Rx] Pregabalin [Lyrica] 75 mg PO BID 30 Days #60 capsule 11/24/17 [Rx] clonazePAM [Klonopin] 0.5 mg PO BID PRN 5 Days #10 tablet 11/24/17 [Rx] Gabapentin [Neurontin] 300 mg PO HS 01/17/18 [History] Insulin Glargine,Hum.rec.anlog [Basaglar Kwikpen U-100] 40 unit SQ BID 01/17/18 [History] Potassium Chloride [K-Tab ER] 20 meq PO QID 01/17/18 [History] 3 Allergy/AdvReac Type Severity Reaction Status Date / Time lisinopril [From Zestril] Allergy Rash Verified 01/17/18 13:50 Review of systems: 10 point review of systems done, pertinent positives and negatives mentioned below. - Constitutional Constitutional: Absent: fatigue, fever(s) - Cardiovascular Cardiovascular: Absent: edema, irregular heart rhythm, radiating pain - Respiratory Respiratory: Absent: cough, dyspnea, wheezing, pain on inspiration - Gastrointestinal Gastrointestinal: Absent: abdominal pain, nausea, vomiting - Integumentary Integumentary: Present: change in pigmentation, erythema (bilateral LE erythema) , skin ulcer, wounds Additional comments: Wrapped/dressed wound present on the R foot Exam - Constitutional Vitals: Temp Pulse Resp BP Pulse Ox 98.9 F 90 16 147/69 93 01/22/18 07:19 01/22/18 07:19 01/22/18 07:19 01/22/18 07:19 01/22/18 07:19 - Head Head exam: Present: atraumatic, normal inspection, normocephalic - Eye Eye exam: Present: EOMI, PERRL. Absent: sclera anicteric - Respiratory Respiratory exam: Present: CTAB. Absent: respiratory distress, stridor, wheezes , tachypnea - Cardiovascular Cardiovascular exam: Present: RRR, +S1, +S2. Absent: bradycardia, systolic murmur - GI/Abdominal GI/Abdominal exam: Present: soft. Absent: tenderness - Extremities Exam Extremities exam: Present: normal inspection - Neurological Exam Neurological exam: Present: alert, oriented X3 - Psychiatric Psychiatric exam: Present: normal affect, normal mood - Skin Skin exam: Present: dry, intact Infectious Disease CN: Results - Labs CBC & Chem 7: 01/22/18 05:30 01/22/18 05:30 Cultures: Cultures 01/18/18 10:25 Wound Culture - Final Abdomen Methicillin Resistant S.aureus 01/18/18 10:25 Wound Culture - Final Left Leg No pathogens isolated. 01/18/18 08:30 Urine Culture - Final Urine,Catheterized Klebsiella pneumoniae ESBL 01/18/18 10:25 Wound Culture - Final Right Leg Methicillin Resistant S.aureus Consult Discharge Plan - Plan Referrals: Jc Tsai MD [Primary Care Provider] - - Attending Attestation I examined this patient and my medical decision-making was reviewed with the Resident Physician. I agree with the documented findings, disposition and treatment plan as described except to the extent set forth below. This is an addendum to original report dictated by resident physician. Please refer to residents note for full detail. Patient is a 57-year-old woman well-known to our service who presented to the hospital with bilateral lower extremity cellulitis and UTI. We are asked to evaluate the patient and make further recommendations. On further exam and review of systems the patient she seems to be doing great clinically and is eager to go home. Patients labs have improved. Vital signs are stable. Patient has been on broad-spectrum antibiotics since 01/17. Assessment and plan: Sepsis His urinary tract infection with Klebsiella pneumonia ESBL Bilateral lower leg cellulitis; currently they appear resolved anything maybe she has some venous stasis Decubitus ulcer stage III patient tells me that she is ambulatory so not sure why she has a decubitus ulcer stage III. Chronic diabetic foot ulcer I spoke with Dr. Stoll over the phone and he feels that this is all superficial infection. No obvious signs of deep infection. Diabetes mellitus type 2 Hypertension Recommendations: Clinically patient doing wellcriteria and I am not sure if she really had a UTI or if she has asymptomatic bacteriuria. DC IV antibiotics start oral doxycycline for 8 more days and oral fosfomycin 1 packet every other day for 6 days. Dispensed 3
--- NOTE | 2018-01-22 17:49 | Podiatry Progress Note ---
Date of Encounter: 01/22/18 Time of Encounter: 12:45 - Assessment and Plan (1) Diabetes mellitus Current Visit: No Status: Chronic Qualifiers: Diabetes mellitus type: type 2 Diabetes mellitus intermediate insulin use: with intermediate use Diabetes mellitus complication status: with skin complications Diabetes mellitus complication detail: with other skin complication Qualified Code(s): E11.628 - Type 2 diabetes mellitus with other skin complications; Z79.4 - FDC (current) use of insulin (2) Cellulitis Current Visit: Yes Status: Acute Cellulitis of BLE has resolved. WBC: 8.9 ESR: 115, CRP: 182 Plan: Continue antibiotic therapy per ID. Contnue wound care orders with Santyl to the ulceration of the right heel and sub #1 met head right foot. Patient will follow up in wound care with Dr. Stoll one week after discharge from the hospital. Qualifiers: Site of cellulitis: trunk Site of cellulitis of trunk: abdominal wall Qualified Code(s): L03.311 - Cellulitis of abdominal wall (3) Venous stasis dermatitis of both lower extremities Current Visit: No Status: Chronic (4) Diabetic foot ulcer Current Visit: Yes Status: Chronic Deep tissue injury to the plantar aspect of the right heel, unstageable. Ulceration to sub #1 metatarsal head right foot with dried eschar. Foot is malodorous. Xray of right foot showed persistent, but improved diffuse soft tissue swelling. No radiographic evidence of osteomyelitis. No acute osseous abnormality. Cellulitis of BLE has resolved. WBC: 8.9 ESR: 115, CRP: 182 Plan: Continue antibiotic therapy per ID. Contnue wound care orders with Santyl to the ulceration of the right heel and sub #1 met head right foot. Patient will follow up in wound care with Dr. Stoll one week after discharge from the hospital. Qualifiers: Diabetic foot ulcer location: midfoot Diabetes mellitus type: type 2 Laterality: right Non-pressure ulcer stage: limited to breakdown of skin Qualified Code(s): E11.621 - Type 2 diabetes mellitus with foot ulcer; L97.411 - Non-pressure chronic ulcer of right heel and midfoot limited to breakdown of skin Subjective Interval history: Patient is sitting up in bed with spouse at bedside. Dressing dry and intact to the right foot. Patient states she wants to go home. Patient denies any fever, chills, cp, sob or flu like symptoms. Objective - Vital Signs Vital Signs: Vital Signs Temp Pulse Resp BP Pulse Ox 01/22/18 16:20 99.4 F 94 18 132/66 90 01/22/18 11:42 98.3 F 87 17 130/72 90 01/22/18 07:19 98.9 F 90 16 147/69 93 01/22/18 03:35 98.9 F 82 15 122/68 94 01/22/18 00:03 97.6 F 80 18 125/69 93 01/21/18 20:23 98.6 F 99 18 136/58 91 Intake and Output 01/22/18 01/22/18 01/22/18 07:59 15:59 23:59 Intake Total 110 / 110 340 / 340 120 / 120 Balance 110 / 110 340 / 340 120 / 120 Intake: IV Fluids 100 / 100 100 / 100 Zosyn 3.375 GM In 0.9 % Sodium 100 / 100 100 / 100 Chloride (Mini-Bag +) 100 ML @ 25 mls/hr IVPB Q8H [facility] Rx#: [id number] Oral 240 / 240 120 / 120 Other 10 / 10 Other: Meal Breakfast Percent of Meal Consumed 100% Stool Size Small Moderate Stool Consistency soft liquid Stool Color Brown Brown # Voids 1 # Urine Diapers 1 # Bowel Movements 1 # Bowel Movement Diapers 1 Weight 122.1 kg Blood Glucose* 107 151 144 Patient Weight 01/22/18 23:59 Weight 122.1 kg - Exam Exam: General appearance: alert awake oriented X 3. Calm and pleasant, no acute distress.. Vascular: Unable to palpate pedal pulses due to edema, No evidence of cyanosis, pallor or rubor, Edema graded at 2+/4, Skin temperature warm, Homans Sign negative, capillary refill time is immediate to digits.. Integument: Skin with decreased turgor, decreased subcutaneous tissue, skin thin and shiny with trophic changes associated with comorbidities as described in history. Light erythema with cobblestone appearance to BLE, skin is warm. Wound #1: Unstageable ulceration to the plantar aspect of right heel measuring 6 cm in length x 6 cm in width, base of wound is black, no pus, malodorous, light periwound erythema, no streaking, no fluctuance, no exposed bone, no ligament or tendon. Moderate amount of serous drainage observed to dressing. #2: Ulcer to Sub #1 metatarsal head of right foot measuring 0.7 cm in length x 1.5 cm in width, base of wound with dried eschar, no pus, no odor, no warmth, no streaking, no fluctuance, no undermining, no sinus tract. #3 Venous ulcer to anterior tibial region or right lower leg measuring 0.7 cm in length x 1.5 cm in width, base of wound is red, no pus, no odor, no warmth, no streaking. #4 Dried scabs to anterior tibial region or left lower leg, no pus, no odor, no warmth, no streaking. Scattered dried scabs to toes of both feet. Nails #1 through #5 of both feet are thick, elongated, and mycotic. - Lab Result Diagrams: 01/23/18 04:36 01/23/18 04:36 Labs: Abnormal lab results Hgb 10.3 g/dL (11.5-15.4) L 01/22/18 05:30 Hct 34.2 % (35.3-44.9) L 01/22/18 05:30 MCV 80.5 fL (83.0-100.0) L 01/22/18 05:30 MCH 24.2 pg (28.0-33.3) L 01/22/18 05:30 MCHC 30.1 g/dL (31.6-35.5) L 01/22/18 05:30 RDW 18.6 % (11.5-14.5) H 01/22/18 05:30 ESR 115 mm/hr (0-15) H 01/18/18 06:01 PT 13.4 Seconds (9.4-12.1) H 01/17/18 18:20 ABG pO2 72 mmHg (85-104) L 01/18/18 08:06 ABG HCO3 28 mEq/L (21-27) H 01/18/18 08:06 ABG Total CO2 29 mEq/L (20-26) H 01/18/18 08:06 ABG O2 Saturation 94 % (95-98) L 01/18/18 08:06 Potassium 3.4 mEq/L (3.5-5.1) L 01/22/18 05:30 Carbon Dioxide 34 mEq/L (23-29) H 01/22/18 05:30 BUN 50 mg/dL (6-20) H 01/22/18 05:30 Creatinine 1.64 mg/dL (0.60-1.20) H 01/22/18 05:30 Est GFR ( Amer) 39 (> 60) L 01/22/18 05:30 Est GFR (Non-Af Amer) 32 (> 60) L 01/22/18 05:30 BUN/Creatinine Ratio 30 (6-26) H 01/22/18 05:30 Glucose 109 mg/dL (70-105) H 01/22/18 05:30 POC Glucose 144 mg/dL (70-99) H 01/22/18 16:32 Hemoglobin A1c 11.0 % (-5.6) H 01/18/18 06:01 Calculated Osmolality 306 (280-300) H 01/22/18 05:30 Calcium 7.5 mg/dL (8.6-10.3) L 01/22/18 05:30 AST 7 Units/L (13-39) L 01/17/18 14:46 Alkaline Phosphatase 111 Units/L (34-104) H 01/17/18 14:46 C-Reactive Protein 182 mg/L (Less than 10) H 01/18/18 06:01 Albumin 3.1 g/dL (3.5-5.7) L 01/17/18 14:46 Globulin 5.3 g/dL (2.4-3.5) H 01/17/18 14:46 Albumin/Globulin Ratio 0.6 (1.1-2.2) L 01/17/18 14:46 Urine Clarity Turbid (Clear) A 01/17/18 15:20 Urine Protein 100 mg/dL (Neg-Trace) H 01/17/18 15:20 Urine Glucose (UA) 500 mg/dL (Normal) H 01/17/18 15:20 Urine Ketones Trace mg/dL (Negative) H 01/17/18 15:20 Urine Blood Moderate (Negative) H 01/17/18 15:20 Urine Bilirubin Moderate (Negative) H 01/17/18 15:20 Ur Leukocyte Esterase Large (Negative) H 01/17/18 15:20 Urine Microscopic RBC 5-15 per hpf (0-3) H 01/17/18 15:20 Urine Microscopic WBC TNTC per hpf (0-3) H 01/17/18 15:20 Ur Squamous Epith Cells Many per lpf (None-Few) H 01/17/18 15:20 Urine Bacteria Many per hpf (None-Few) H 01/17/18 15:20 Urine Yeast Few per hpf (None Seen) H 01/17/18 15:20 Ur Culture Indicated? NO. (NO) A 01/17/18 15:20 Vancomycin Trough 32 mcg/mL (5-10) H 01/20/18 14:15 Microbiology, Last 48 Hours 01/18/18 10:25 Wound Culture - Final Abdomen Methicillin Resistant S.aureus Consult Discharge Plan - Plan Referrals: Jc Tsai MD [Primary Care Provider] -
[2018-01-22] MEDS: Latanoprost 2.5 ML BOTTLE BOTH EYES SCH (23:05)
[2018-01-22] MEDS: clonazePAM 0.5 MG TABLET PO PRN (23:06)
[2018-01-22] MEDS: Miconazole w/zinc oxide&karaya 92 APPL/92 GM TUBE TP SCH (23:17)
[2018-01-22] MEDS: Gentamicin Oint 15 GM TUBE TP SCH (23:17)
[2018-01-22] MEDS: Ketoconazole 2% CRM 15 GM TUBE TP SCH (23:17)
[2018-01-22] MEDS: Insulin DETEMIR 100 UNIT/ML X5UNITS SQ SCH (23:24)
[2018-01-23 04:56] LABS: Basophils % 0.5 %; Eosinophils # 0.2 K/mcL (0.0-0.6); Hematocrit 33.7 % (35.3-44.9); Hemoglobin 10.1 g/dL (11.5-15.4); Immature Granulocytes % 0.4 % (0-4); Lymphocytes # 2.4 K/mcL (0.6-4.6); Lymphocytes % 28.4 %; Mean Corpuscular Hemoglobin 24.3 pg (28.0-33.3); Mean Platelet Volume 10.9 fL (9.4-12.4); Monocytes # 0.6 K/mcL (0.0-1.3); Neutrophils # 5.2 K/mcL (1.6-8.9); Platelet Count 235 K/mcL (140-400); Red Blood Count 4.16 M/mcL (3.82-4.97); Red Cell Distribution Width 18.6 % (11.5-14.5); Segmented Neutrophils % 61.7 %
[2018-01-23 05:18] LABS: Calcium 7.4 mg/dL (8.6-10.3); Potassium 3.8 mEq/L (3.5-5.1)
[2018-01-23] MEDS: Piperacillin/Tazobactam 3.375 GM in 0.9 % Sodium Chloride Mini Bag 100 ML IVPB SCH ×3 (06:23→13:41)
[2018-01-23] MEDS: *HR* Heparin 5,000 UNIT/ML VIAL SQ SCH ×2 (06:23→18:36)
[2018-01-23] MEDS: Fluticasone Propionate Nasal 50 MCG/SPRAY BOTTLE NS SCH (09:20)
[2018-01-23] MEDS: Diltiazem CD (24hr) 120 MG CAPSULE PO SCH (09:20)
[2018-01-23] MEDS: tiZANidine 4 MG TABLET PO SCH ×2 (09:20→16:29)
[2018-01-23] MEDS: Furosemide 40 MG TABLET PO SCH ×2 (09:20→16:29)
[2018-01-23] MEDS: Ascorbic Acid 500 MG TABLET PO SCH (09:20)
[2018-01-23] MEDS: Lactobacillus 1 EACH CAP.SPRINK PO SCH (09:20)
[2018-01-23] MEDS: Pregabalin 75 MG CAPSULE PO SCH (09:20)
[2018-01-23] MEDS: Insulin LISPRO 300 UNITS/3 ML VIAL SQ SCH ×3 (09:22→18:35)
[2018-01-23] MEDS: Nystatin POWDER 30 GM BOTTLE TP SCH (09:22)
[2018-01-23] MEDS: Insulin DETEMIR 100 UNIT/ML X5UNITS SQ SCH ×2 (09:22→10:30)
[2018-01-23 11:34] VITALS: BP 126/74
--- NOTE | 2018-01-23 11:44 | Infectious Disease Progress No ---
Date of Encounter: 01/23/18 Time of Encounter: 10:45 - Assessment and Plan (1) Sepsis Current Visit: No Status: Resolved Secondary to cellulitis versus UTI - Urine culture with gram positive cocci and ESBL Klebsiella. - Patient met 2 out of for sepsis criteria on admission with leukocytosis at 18.3 and a pulse of 122 - Initial lactic acid was 2.3, subsequent level was 1.4 - Resolved Qualifiers: Sepsis type: sepsis due to unspecified organism Qualified Code(s): A41.9 - Sepsis, unspecified organism (2) UTI (urinary tract infection) Current Visit: Yes Status: Acute Urine culture with gram positive cocci and ESBL Klebsiella. ESBL E.coli sensitive to Etarpenem, Imipenem, Zosyn, Gentamycin - D/c IV ABX; start oral doxycycline for 8 more days and oral fosfomycin 1 packet every other day for 6 days Qualifiers: Urinary tract infection type: site unspecified Hematuria presence: without hematuria Qualified Code(s): N39.0 - Urinary tract infection, site not specified (3) Bilateral lower leg cellulitis Current Visit: Yes Status: Chronic Consulted podiatry, patient see's Dr Stoll outpatient and he agrees to follow. Iv zosyn and vancomycin - Upon discharge, we recommend that patient be given Doxycycline 100 mg by mouth twice through 01/30 (4) Sacral decubitus ulcer, stage III Current Visit: Yes Status: Chronic Wound care consulted - MRSA cellulitis and infection of Stage III Sacral ulcer (5) Diabetic foot ulcer Current Visit: Yes Status: Chronic Ulcer on plantar aspect of the right heel - Partial thickness ulceration to sub #1 metatarsal head R foot. - Xray of right foot showed persistent, but improved diffuse soft tissue swelling. No radiographic evidence of osteomyelitis. No acute osseous abnormality. - Management by wound care and podiatry Qualifiers: Diabetic foot ulcer location: midfoot Diabetes mellitus type: type 2 Laterality: right Non-pressure ulcer stage: limited to breakdown of skin Qualified Code(s): E11.621 - Type 2 diabetes mellitus with foot ulcer; L97.411 - Non-pressure chronic ulcer of right heel and midfoot limited to breakdown of skin (6) Diabetes mellitus Current Visit: No Status: Chronic Accu check ac/hs with humalog sliding scale coverage - Monitor daily labs - Hemoglobin A1c is 11 Qualifiers: Diabetes mellitus type: type 2 Diabetes mellitus exterminator helper insulin use: with mcc use Diabetes mellitus complication status: with skin complications Diabetes mellitus complication detail: with other skin complication Qualified Code(s): E11.628 - Type 2 diabetes mellitus with other skin complications; 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 Patient states that she wants to go home. Denies any shortness of breath or pain in her extremities. Denies nausea, vomiting, fever, chills, or chest pain. Denies having any difficulty eating. Patient has no further complaints at this time. Infect Dis PN-Objective Data - Labs CBC & Chem 7: 01/23/18 04:36 01/23/18 04:36 Labs: Laboratory Results - last 24 hr 01/22/18 01/22/18 01/22/18 07:47 11:42 16:32 WBC RBC Hgb Hct MCV MCH MCHC RDW Plt Count MPV Immature Gran % Seg Neutrophils % Lymphocytes % Monocytes % Eosinophils % Basophils % Neutrophils # Lymphocytes # Monocytes # Eosinophils # Basophils # Sodium Potassium Chloride Carbon Dioxide BUN Creatinine Est GFR ( Amer) Est GFR (Non-Af Amer) BUN/Creatinine Ratio Glucose POC Glucose 107 H 151 H 144 H Calculated Osmolality Calcium 01/22/18 01/23/18 01/23/18 20:39 04:36 04:36 WBC 8.4 RBC 4.16 Hgb 10.1 L Hct 33.7 L MCV 81.0 L MCH 24.3 L MCHC 30.0 L RDW 18.6 H Plt Count 235 MPV 10.9 Immature Gran % 0.4 Seg Neutrophils % 61.7 Lymphocytes % 28.4 Monocytes % 7.0 Eosinophils % 2.0 Basophils % 0.5 Neutrophils # 5.2 Lymphocytes # 2.4 Monocytes # 0.6 Eosinophils # 0.2 Basophils # 0.0 Sodium 144 Potassium 3.8 Chloride 102 Carbon Dioxide 35 H BUN 37 H Creatinine 1.15 Est GFR ( Amer) 59 L Est GFR (Non-Af Amer) 49 L BUN/Creatinine Ratio 32 H Glucose 123 H POC Glucose 111 H Calculated Osmolality 308 H Calcium 7.4 L Cultures: Cultures 01/18/18 10:25 Wound Culture - Final Abdomen Methicillin Resistant S.aureus 01/18/18 10:25 Wound Culture - Final Left Leg No pathogens isolated. 01/18/18 08:30 Urine Culture - Final Urine,Catheterized Klebsiella pneumoniae ESBL 01/18/18 10:25 Wound Culture - Final Right Leg Methicillin Resistant S.aureus Exam - Constitutional Vitals: Temp Pulse Resp BP Pulse Ox 98.0 F 86 18 126/74 90 01/23/18 11:32 01/23/18 11:32 01/23/18 11:32 01/23/18 11:32 01/23/18 11:32 - Head Head exam: Present: atraumatic, normal inspection - Respiratory Respiratory exam: Present: CTAB. Absent: rales, rhonchi, wheezes, tachypnea - Cardiovascular Cardiovascular exam: Present: RRR, +S1, +S2. Absent: bradycardia, systolic murmur, tachycardia - Extremities Exam Additional comments: Chronic skin changes observed in both lower extremities. Redness across anterior aspect of lower extremities bilaterally has improved since yesterday. - Psychiatric Psychiatric exam: Present: normal affect, normal mood - Skin Skin exam: Present: dry, intact Consult Discharge Plan - Plan Referrals: Jc Tsai MD [Primary Care Provider] - 01/25/18 3:00 pm () Prescriptions: Doxycycline 100 mg PO BID 8 Days #16 capsule Fosfomycin Tromethamine [Monurol] 3 gm PO Q48H 8 Days #4 packet - Attending Attestation I examined this patient and my medical decision-making was reviewed with the Resident Physician. I agree with the documented findings, disposition and treatment plan as described except to the extent set forth below.
[2018-01-23] MEDS ORDERED: Fosfomycin Tromethamine 3 GM Packet PO SCH (13:30)
--- NOTE | 2018-01-23 14:23 | Discharge Summary ---
- NOTES TO OUTPATIENT PROVIDER Notes to Outpatient Provider: Please make sure patient complete course of Abx for ESBL Klebsiella UTI and cellulitis. Need inpatient care facility but refused and wants to go home. Date of Encounter: 01/23/18 Time of Encounter: 14:24 - Discharge Diagnosis (1) Sepsis Priority: Primary Status: Resolved Qualifiers: Sepsis type: sepsis due to unspecified organism Qualified Code(s): A41.9 - Sepsis, unspecified organism (2) Cellulitis Priority: Secondary Status: Acute Qualifiers: Site of cellulitis: trunk Site of cellulitis of trunk: abdominal wall Qualified Code(s): L03.311 - Cellulitis of abdominal wall (3) Diabetic foot ulcer Priority: Secondary Status: Chronic Qualifiers: Diabetic foot ulcer location: midfoot Diabetes mellitus type: type 2 Laterality: right Non-pressure ulcer stage: limited to breakdown of skin Qualified Code(s): E11.621 - Type 2 diabetes mellitus with foot ulcer; L97.411 - Non-pressure chronic ulcer of right heel and midfoot limited to breakdown of skin (4) HTN (hypertension) Priority: Secondary Status: Chronic Qualifiers: Hypertension type: essential hypertension Qualified Code(s): I10 - Essential (primary) hypertension (5) Sacral decubitus ulcer, stage III Priority: Secondary Status: Chronic (6) Sleep apnea Priority: Secondary Status: Chronic Qualifiers: Sleep apnea type: unspecified type Qualified Code(s): G47.30 - Sleep apnea , unspecified (7) Diabetic toe ulcer Priority: Secondary Status: Acute Qualifiers: Diabetes mellitus type: type 2 Non-pressure ulcer stage: limited to breakdown of skin Qualified Code(s): E11.621 - Type 2 diabetes mellitus with foot ulcer; L97.501 - Non-pressure chronic ulcer of other part of unspecified foot limited to breakdown of skin (8) Diabetes mellitus Priority: Secondary Status: Chronic Qualifiers: Diabetes mellitus type: type 2 Diabetes mellitus assisted insulin use: with assisted use Diabetes mellitus complication status: with skin complications Diabetes mellitus complication detail: with other skin complication Qualified Code(s): E11.628 - Type 2 diabetes mellitus with other skin complications; 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 Magallanes is a 57 year old female with extensive PMH including DM, HTN, diabetic foot ulcer, sacral decub admitted for management of sepsis. She was found to have UTI with ESBL klebsiella and cellulitis of her lower extremities. Sources could include all the skin lesions including the sacral decubitus. Patient had been stable clinically with resolution of sepsis, blood cultures negative x2. Social evaluation of patient highly recommended inpatient facility care as patient cannot take care of herself at home, however, she adamantly refused and requested to go home today. Patient to be discharged home to complete course of antibiotics per ID recommendations of Doxycycline and Fosfomcin until 01/30/18 in addition to home care services. Discharge discussed with: patient, nurse, social work - Time Spent with Patient Total time spent providing and/or coordinating discharge services: Greater than 30 minutes - Discharge Medications Prescriptions: Doxycycline 100 mg PO BID 8 Days #16 capsule Fosfomycin Tromethamine [Monurol] 3 gm PO Q48H 8 Days #4 packet Home Medications: Atorvastatin [Lipitor] 40 mg PO HS 01/11/16 [History] Insulin ASPART [Novolog Flexpen] 6 - 14 unit SQ TID 01/11/16 [History] Latanoprost [Xalatan] 1 drop BOTH EYES HS 01/11/16 [History] Primidone [Mysoline] 25 - 50 mg PO BID PRN 01/11/16 [History] Acetaminophen [Tylenol] 650 mg PO Q6HR PRN #0 tablet 01/12/16 [Rx] Ascorbic Acid [Vitamin C] 500 mg PO BID 03/25/16 [History] Docusate Sodium [Colace] 200 mg PO BID 03/25/16 [History] Furosemide [Lasix] 40 mg PO BID 12/06/16 [History] Fluticasone Propionate Nasal [Flonase] 2 spray NS DAILY #1 bottle 08/28/17 [Rx] Guaifenesin [Guaifenesin ER] 600 mg PO BID PRN #20 tab.er.12h 08/28/17 [Rx] Brimonidine Tartrate/Timolol [Combigan 0.2%-0.5% Eye Drops] 1 drop OP BID [History] Diltiazem HCl [Diltiazem 12Hr ER] 120 mg PO DAILY 11/10/17 [History] Esomeprazole Magnesium [Nexium] 40 mg PO DAILY 11/10/17 [History] Gentamicin Oint [Garamycin] 1 appl TP BID 11/10/17 [History] Ketoconazole 2% CRM [Nizoral Cream] 1 appl TP DAILY 11/10/17 [History] Ketorolac Tromethamine 1 drop OP QID 11/10/17 [History] Losartan Potassium [Cozaar] 100 mg PO DAILY 11/10/17 [History] Tizanidine HCl 4 mg PO TID 11/20/17 [History] Calcium Carbonate [Tums] 1,000 mg PO Q4HR PRN tab.chew 11/24/17 [Rx] Carvedilol [Coreg] 6.25 mg PO BIDWM tablet 11/24/17 [Rx] Collagenase Oint [Santyl] 1 appl TP BID #1 tube 11/24/17 [Rx] Lactobacillus Acidophilus [Acidophilus] 1 each PO BID #10 capsule 11/24/17 [Rx] Miconazole w/zinc oxide&karaya [Antifungal Extra Thick] 1 appl TP BID #1 tube [Rx] Pregabalin [Lyrica] 75 mg PO BID 30 Days #60 capsule 11/24/17 [Rx] clonazePAM [Klonopin] 0.5 mg PO BID PRN 5 Days #10 tablet 11/24/17 [Rx] Gabapentin [Neurontin] 300 mg PO HS 01/17/18 [History] Insulin Glargine,Hum.rec.anlog [Basaglar Kwikpen U-100] 40 unit SQ BID 01/17/18 [History] Potassium Chloride [K-Tab ER] 20 meq PO QID 01/17/18 [History] Doxycycline 100 mg PO BID 8 Days #16 capsule 01/23/18 [Rx] Fosfomycin Tromethamine [Monurol] 3 gm PO Q48H 8 Days #4 packet 01/23/18 [Rx] Nystatin POWDER [Nystop] 1 appl TP BID bottle 01/23/18 [Rx] Allergies/Adverse Reactions: 3 Allergy/AdvReac Type Severity Reaction Status Date / Time lisinopril [From Zestril] Allergy Rash Verified 01/17/18 13:50 Date of admission: 01/17/18 17:35 Primary care physician: Jc Tsai MD Consults: 01/17/18 18:57 Consult to Electronics Maintenance Technician [CONS] Routine Reason for SW Consult: home health services. Patient needs hhelp with hygiene and care 01/17/18 19:49 Consult to Podiatry [CONS] Routine Consulting Provider: [facility] Reason for Consult: Cellulitis of bilat lower ext. Time Notified: 19:49 Call Completed: Yes 01/18/18 07:51 Consult to Wound Care [CONS] Routine Reason for Consult: Cellulitis, Sacral Ulcer Call Completed: No 01/18/18 09:33 Consult to Nutrition [CONS] Routine Comment: Multiple Infections, Optimize Diet and Supplement Consulting Provider: NUTRITION Reason for Dietary Consult: Diet Education PO Supplementation 01/18/18 09:35 Consult to Occupational Therapy [CONS] Routine Comment: Evaluate, develop and implement POC Reason for Consult: BLE Cellulitis/Wounds, Diabetic Foot Ulcers. Please evaluate, treat, and make rehab recommendations. Thanks. Does patient have active BEDREST order?: No Is patient medically & hemodynamically stable?: Yes Patient assessed for mobility or mobilized this visit?: No Consult to Physical Therapy [CONS] Routine Comment: Evaluate, develop and implement POC Reason for Consult: BLE Cellulitis/Wounds, Diabetic Foot Ulcers. Please evaluate, treat, and make rehab recommendations. Thanks. Does patient have active BEDREST order?: No Is patient medically & hemodynamically stable?: Yes Patient assessed for mobility or mobilized this visit?: No 01/18/18 09:38 Consult to Respiratory Therapy [CONS] Routine Reason for Consult: REGINALD. CPAP QHS. Call Completed: No 01/21/18 10:01 Consult to Infectious Diseases [CONS] Routine Consulting Provider: [facility] Reason for Consult: MRA wound cellulitis, Pseudomonas MDRO PNA, Klebsiella ESBL UTI. Discharge antibiotic recommendation, thank you. Call Completed: No 01/22/18 09:29 Consult for Pharmacy Education [CONS] Stat Reason for Consult: Vancomycin Dosing Call Completed: No - Constitutional Vitals: Temp Pulse Resp BP Pulse Ox 98.0 F 86 18 126/74 90 01/23/18 11:32 01/23/18 11:32 01/23/18 11:32 01/23/18 11:32 01/23/18 11:32 General appearance: Present: cooperative, A&O X 3, morbidly obese, no acute distress, answers questions appropriately Exam: General: Alert and oriented. Morbidly obese with limited mobility. Skin: Normal color, extensive skin lesions including sacral decubitus HEENT: EOMI, pupils equal, round and reactive. Cardiovascular: Regular rate, Lungs:Normal breath sounds Abdomen:Soft, non-tender, no rigidity. Extremities:No deformity, no edema or tenderness, no joint swelling or clubbing. Neurological:Normal cognition, no weakness, no numbness. Rest of the physical exam is non contributory - Patient Status Disposition: Home Health Service Condition: Fair Functional capacity at discharge: bed bound Overall status at discharge: patient is progressing back to baseline - Discharge Instructions Follow Up With: Jc Tsai MD [Primary Care Provider] - 01/25/18 3:00 pm () - Diet and Activity Activity: ambulate only with your walker, resume usual activities as tolerated Diet: advance to your usual diet
--- NOTE | 2018-01-23 14:48 | Physician Discharge Referral ---
- Diagnosis (1) Sepsis Status: Resolved (2) Cellulitis Status: Acute (3) Diabetic foot ulcer Status: Chronic (4) HTN (hypertension) Status: Chronic (5) Sacral decubitus ulcer, stage III Status: Chronic (6) Sleep apnea Status: Chronic (7) Diabetic toe ulcer Status: Acute (8) Diabetes mellitus Status: Chronic - Respiratory Orders Smoking Cessation: Smoking cessation has been advised. For more information, call the [place] Tobacco Quit Line at 3-256-XAKM-NOW. - Services Needed Following services are medically necessary services: Nursing, Home Health Aide, Physical Therapy, Occupational Therapy - Transfer Medications Prescriptions: Doxycycline 100 mg PO BID 8 Days #16 capsule Fosfomycin Tromethamine [Monurol] 3 gm PO Q48H 8 Days #4 packet Home Medications: Atorvastatin [Lipitor] 40 mg PO HS 01/11/16 [History] Insulin ASPART [Novolog Flexpen] 6 - 14 unit SQ TID 01/11/16 [History] Latanoprost [Xalatan] 1 drop BOTH EYES HS 01/11/16 [History] Primidone [Mysoline] 25 - 50 mg PO BID PRN 01/11/16 [History] Acetaminophen [Tylenol] 650 mg PO Q6HR PRN #0 tablet 01/12/16 [Rx] Ascorbic Acid [Vitamin C] 500 mg PO BID 03/25/16 [History] Docusate Sodium [Colace] 200 mg PO BID 03/25/16 [History] Furosemide [Lasix] 40 mg PO BID 12/06/16 [History] Fluticasone Propionate Nasal [Flonase] 2 spray NS DAILY #1 bottle 08/28/17 [Rx] Guaifenesin [Guaifenesin ER] 600 mg PO BID PRN #20 tab.er.12h 08/28/17 [Rx] Brimonidine Tartrate/Timolol [Combigan 0.2%-0.5% Eye Drops] 1 drop OP BID [History] Diltiazem HCl [Diltiazem 12Hr ER] 120 mg PO DAILY 11/10/17 [History] Esomeprazole Magnesium [Nexium] 40 mg PO DAILY 11/10/17 [History] Gentamicin Oint [Garamycin] 1 appl TP BID 11/10/17 [History] Ketoconazole 2% CRM [Nizoral Cream] 1 appl TP DAILY 11/10/17 [History] Ketorolac Tromethamine 1 drop OP QID 11/10/17 [History] Losartan Potassium [Cozaar] 100 mg PO DAILY 11/10/17 [History] Tizanidine HCl 4 mg PO TID 11/20/17 [History] Calcium Carbonate [Tums] 1,000 mg PO Q4HR PRN tab.chew 11/24/17 [Rx] Carvedilol [Coreg] 6.25 mg PO BIDWM tablet 11/24/17 [Rx] Collagenase Oint [Santyl] 1 appl TP BID #1 tube 11/24/17 [Rx] Lactobacillus Acidophilus [Acidophilus] 1 each PO BID #10 capsule 11/24/17 [Rx] Miconazole w/zinc oxide&karaya [Antifungal Extra Thick] 1 appl TP BID #1 tube [Rx] Pregabalin [Lyrica] 75 mg PO BID 30 Days #60 capsule 11/24/17 [Rx] clonazePAM [Klonopin] 0.5 mg PO BID PRN 5 Days #10 tablet 11/24/17 [Rx] Gabapentin [Neurontin] 300 mg PO HS 01/17/18 [History] Insulin Glargine,Hum.rec.anlog [Basaglar Kwikpen U-100] 40 unit SQ BID 01/17/18 [History] Potassium Chloride [K-Tab ER] 20 meq PO QID 01/17/18 [History] Doxycycline 100 mg PO BID 8 Days #16 capsule 01/23/18 [Rx] Fosfomycin Tromethamine [Monurol] 3 gm PO Q48H 8 Days #4 packet 01/23/18 [Rx] Nystatin POWDER [Nystop] 1 appl TP BID bottle 01/23/18 [Rx] Allergies/Adverse Reactions: 3 Allergy/AdvReac Type Severity Reaction Status Date / Time lisinopril [From Zestril] Allergy Rash Verified 01/17/18 13:50 Certification: Further, I certify that my clinical findings support that this patient is homebound (i.e. absences from home require considerable and taxing effort and are for medical reasons or [employer] services or infrequently or short duration when for other reasons) because: Homebound Reason: Patient requires assistance of a person or device to safely leave home, Leaving home requires considerable and taxing effort due to condition Attestation: My signature below is to certify that this patient is under my care and that I, or nurse practitioner, or a physician's children's nursery assistant working with me, has a face-to -face encounter with this patient.
--- NOTE | 2018-01-23 16:00 | Podiatry Progress Note ---
Date of Encounter: 01/23/18 Time of Encounter: 12:45 - Assessment and Plan (1) Diabetes mellitus Current Visit: No Status: Chronic Qualifiers: Diabetes mellitus type: type 2 Diabetes mellitus longterm insulin use: with longterm use Diabetes mellitus complication status: with skin complications Diabetes mellitus complication detail: with other skin complication Qualified Code(s): E11.628 - Type 2 diabetes mellitus with other skin complications; Z79.4 - residential (current) use of insulin (2) Cellulitis Current Visit: Yes Status: Acute Cellulitis of BLE has resolved. WBC: 8.4 ESR: 115, CRP: 182 Plan: Continue antibiotic therapy per ID. Contnue wound care orders with Santyl to the ulceration of the right heel and sub #1 met head right foot. Patient will follow up in wound care with Dr. Stoll one week after discharge from the hospital. Qualifiers: Site of cellulitis: trunk Site of cellulitis of trunk: abdominal wall Qualified Code(s): L03.311 - Cellulitis of abdominal wall (3) Venous stasis dermatitis of both lower extremities Current Visit: No Status: Chronic (4) Diabetic foot ulcer Current Visit: Yes Status: Chronic Deep tissue injury to the plantar aspect of the right heel, unstageable. Ulceration to sub #1 metatarsal head right foot with dried eschar. Foot is malodorous. Xray of right foot showed persistent, but improved diffuse soft tissue swelling. No radiographic evidence of osteomyelitis. No acute osseous abnormality. Cellulitis of BLE has resolved. WBC: 8.4 ESR: 115, CRP: 182 Plan: Verbal consent was obtained, risks vs. benefits discussed, timeout performed, ulceration to the plantar aspect of the right heel crosshatched with a #15 scalpel blade to allow ulceration to heal with the use of Santyl ointment daily. No complications. Dressing applied with Santyl ointment, 4x4 gauze and kerlix. Continue antibiotic therapy per ID. Contnue wound care orders with Santyl to the ulceration of the right heel and sub #1 met head right foot. Patient will follow up in wound care with Dr. Stoll one week after discharge from the hospital. Qualifiers: Diabetic foot ulcer location: midfoot Diabetes mellitus type: type 2 Laterality: right Non-pressure ulcer stage: limited to breakdown of skin Qualified Code(s): E11.621 - Type 2 diabetes mellitus with foot ulcer; L97.411 - Non-pressure chronic ulcer of right heel and midfoot limited to breakdown of skin Subjective Interval history: Patient is lying in bed and states she wants to go home. Dressing dry and intact to the right foot. Patient denies any fever, chills, cp, sob or flu like symptoms. Objective - Vital Signs Vital Signs: Vital Signs Temp Pulse Resp BP Pulse Ox 01/23/18 11:32 98.0 F 86 18 126/74 90 01/23/18 07:38 97.7 F 87 17 155/80 91 01/23/18 03:51 97.9 F 82 17 127/72 91 01/23/18 00:18 97.8 F 74 17 112/69 96 01/22/18 23:00 98 01/22/18 20:35 99.9 F H 89 17 131/70 92 01/22/18 16:20 99.4 F 94 18 132/66 90 Intake and Output 01/22/18 01/23/18 01/23/18 23:59 07:59 15:59 Intake Total 1080 / 1080 100 / 100 580 / 580 Output Total 2500 / 2500 900 / 900 Balance 1080 / 1080 -2400 / -2400 -320 / -320 Intake: IV Fluids 600 / 600 100 / 100 100 / 100 Zosyn 3.375 GM In 0.9 % Sodium 100 / 100 100 / 100 100 / 100 Chloride (Mini-Bag +) 100 ML @ 25 mls/hr IVPB Q8H [facility] Rx#: [id number] Vancocin 1,750 MG In 0.9 % 500 / 500 Sodium Chloride 500 ML @ 333.3 mls/hr IVPB Q48H [facility] Rx#: [id number] Oral 480 / 480 480 / 480 Output: Catheter 2500 / 2500 900 / 900 Other: Meal Dinner Breakfast Percent of Meal Consumed 75% 90% Stool Size Moderate Small Stool Consistency liquid loose soft Stool Color Brown Brown # Voids 1 # Urine Diapers 1 # Bowel Movements 1 1 Weight 123.5 kg Blood Glucose* 111 153 150 Patient Weight 01/23/18 23:59 Weight 123.5 kg - Exam Exam: General appearance: alert awake oriented X 3. Calm and pleasant, no acute distress.. Vascular: Unable to palpate pedal pulses due to edema, No evidence of cyanosis, pallor or rubor, Edema graded at 2+/4, Skin temperature warm, Homans Sign negative, capillary refill time is immediate to digits.. Integument: Skin with decreased turgor, decreased subcutaneous tissue, skin thin and shiny with trophic changes associated with comorbidities as described in history. Light erythema with cobblestone appearance to BLE, skin is warm. Wound #1: Unstageable ulceration to the plantar aspect of right heel measuring 6 cm in length x 6 cm in width, base of wound is black, no pus, malodorous, light periwound erythema, no streaking, no fluctuance, no exposed bone, no ligament or tendon. Moderate amount of serous drainage observed to dressing. #2: Ulcer to Sub #1 metatarsal head of right foot measuring 0.7 cm in length x 1.5 cm in width, base of wound with dried eschar, no pus, no odor, no warmth, no streaking, no fluctuance, no undermining, no sinus tract. #3 Venous ulcer to anterior tibial region or right lower leg measuring 0.7 cm in length x 1.5 cm in width, base of wound is red, no pus, no odor, no warmth, no streaking. #4 Dried scabs to anterior tibial region or left lower leg, no pus, no odor, no warmth, no streaking. Scattered dried scabs to toes of both feet. Nails #1 through #5 of both feet are thick, elongated, and mycotic. - Lab Result Diagrams: 01/23/18 04:36 01/23/18 04:36 Labs: Abnormal lab results Hgb 10.1 g/dL (11.5-15.4) L 01/23/18 04:36 Hct 33.7 % (35.3-44.9) L 01/23/18 04:36 MCV 81.0 fL (83.0-100.0) L 01/23/18 04:36 MCH 24.3 pg (28.0-33.3) L 01/23/18 04:36 MCHC 30.0 g/dL (31.6-35.5) L 01/23/18 04:36 RDW 18.6 % (11.5-14.5) H 01/23/18 04:36 ESR 115 mm/hr (0-15) H 01/18/18 06:01 PT 13.4 Seconds (9.4-12.1) H 01/17/18 18:20 ABG pO2 72 mmHg (85-104) L 01/18/18 08:06 ABG HCO3 28 mEq/L (21-27) H 01/18/18 08:06 ABG Total CO2 29 mEq/L (20-26) H 01/18/18 08:06 ABG O2 Saturation 94 % (95-98) L 01/18/18 08:06 Carbon Dioxide 35 mEq/L (23-29) H 01/23/18 04:36 BUN 37 mg/dL (6-20) H 01/23/18 04:36 Est GFR ( Amer) 59 (> 60) L 01/23/18 04:36 Est GFR (Non-Af Amer) 49 (> 60) L 01/23/18 04:36 BUN/Creatinine Ratio 32 (6-26) H 01/23/18 04:36 Glucose 123 mg/dL (70-105) H 01/23/18 04:36 POC Glucose 150 mg/dL (70-99) H 01/23/18 11:28 Hemoglobin A1c 11.0 % (-5.6) H 01/18/18 06:01 Calculated Osmolality 308 (280-300) H 01/23/18 04:36 Calcium 7.4 mg/dL (8.6-10.3) L 01/23/18 04:36 AST 7 Units/L (13-39) L 01/17/18 14:46 Alkaline Phosphatase 111 Units/L (34-104) H 01/17/18 14:46 C-Reactive Protein 182 mg/L (Less than 10) H 01/18/18 06:01 Albumin 3.1 g/dL (3.5-5.7) L 01/17/18 14:46 Globulin 5.3 g/dL (2.4-3.5) H 01/17/18 14:46 Albumin/Globulin Ratio 0.6 (1.1-2.2) L 01/17/18 14:46 Urine Clarity Turbid (Clear) A 01/17/18 15:20 Urine Protein 100 mg/dL (Neg-Trace) H 01/17/18 15:20 Urine Glucose (UA) 500 mg/dL (Normal) H 01/17/18 15:20 Urine Ketones Trace mg/dL (Negative) H 01/17/18 15:20 Urine Blood Moderate (Negative) H 01/17/18 15:20 Urine Bilirubin Moderate (Negative) H 01/17/18 15:20 Ur Leukocyte Esterase Large (Negative) H 01/17/18 15:20 Urine Microscopic RBC 5-15 per hpf (0-3) H 01/17/18 15:20 Urine Microscopic WBC TNTC per hpf (0-3) H 01/17/18 15:20 Ur Squamous Epith Cells Many per lpf (None-Few) H 01/17/18 15:20 Urine Bacteria Many per hpf (None-Few) H 01/17/18 15:20 Urine Yeast Few per hpf (None Seen) H 01/17/18 15:20 Ur Culture Indicated? NO. (NO) A 01/17/18 15:20 Vancomycin Trough 32 mcg/mL (5-10) H 01/20/18 14:15 Consult Discharge Plan - Plan Referrals: Jc Tsai MD [Primary Care Provider] - 01/25/18 3:00 pm () Prescriptions: Doxycycline 100 mg PO BID 8 Days #16 capsule Fosfomycin Tromethamine [Monurol] 3 gm PO Q48H 8 Days #4 packet
[2018-01-23] MEDS ORDERED: Aminoglycoside Consult 1 EACH MC ONE (19:02)
[2018-01-23] MEDS ORDERED: Doxycycline 100 MG CAPSULE PO SCH (21:00)
== END 2018-01-23 19:03 | disposition home health service (06) | DRG 720 ==
LOC: EMEROO 13:33 → 2ANU 17:35
PROVIDERS: ADMIT Internal Medicine; ATTEND Internal Medicine

== ENCOUNTER 2018-01-29 16:35 | Inpatient (IN) ==
[2018-01-29] MEDS ORDERED: 0.9 % Sodium Chloride 1,000 ML IVC ONE (16:56)
[2018-01-29] MEDS ORDERED: Isovue-370 500 ML INFUS..BTL IV ONE ×2 (16:56→18:03)
[2018-01-29] MEDS ORDERED: Piperacillin/Tazobactam 3.375 GM in 0.9 % Sodium Chloride Mini Bag 100 ML IVPB ONE (16:58)
--- NOTE | 2018-01-29 17:24 | Emergency Department Note ---
Disposition Clinical Impression: Sepsis Qualifiers: Sepsis type: sepsis due to unspecified organism Qualified Code(s): A41.9 - Sepsis, unspecified organism Disposition: Admitted As Inpatient Referrals: Jc Tsai MD [Primary Care Provider] - General Adult HPI - General Chief complaint: ED Weakness Stated complaint: General Weakness Time Seen by Provider: 01/29/18 16:45 Source: EMS Limitations: no limitations - History of Present Illness Pain Scale: 8 - Related Data Home Medications Medication Instructions Recorded Confirmed Atorvastatin [Lipitor] 40 mg PO HS 01/11/16 01/17/18 Insulin ASPART [Novolog Flexpen] 6 - 14 unit SQ TID 01/11/16 01/17/18 Latanoprost [Xalatan] 1 drop BOTH EYES HS 01/11/16 01/17/18 Primidone [Mysoline] 25 - 50 mg PO BID PRN 01/11/16 01/17/18 Ascorbic Acid [Vitamin C] 500 mg PO BID 03/25/16 01/17/18 Docusate Sodium [Colace] 200 mg PO BID 03/25/16 01/17/18 Furosemide [Lasix] 40 mg PO BID 12/06/16 01/17/18 Brimonidine Tartrate/Timolol 1 drop OP BID 11/10/17 01/17/18 [Combigan 0.2%-0.5% Eye Drops] Diltiazem HCl [Diltiazem 12Hr ER] 120 mg PO DAILY 11/10/17 01/17/18 Esomeprazole Magnesium [Nexium] 40 mg PO DAILY 11/10/17 01/17/18 Gentamicin Oint [Garamycin] 1 appl TP BID 11/10/17 01/17/18 Ketoconazole 2% CRM [Nizoral Cream] 1 appl TP DAILY 11/10/17 01/17/18 Ketorolac Tromethamine 1 drop OP QID 11/10/17 01/17/18 Losartan Potassium [Cozaar] 100 mg PO DAILY 11/10/17 01/17/18 Tizanidine HCl 4 mg PO TID 11/20/17 01/17/18 Gabapentin [Neurontin] 300 mg PO HS 01/17/18 01/17/18 Insulin Glargine,Hum.rec.anlog 40 unit SQ BID 06/27/18 06/27/18 [Basaglar Kwikpen U-100] Potassium Chloride [K-Tab ER] 20 meq PO QID 01/17/18 01/17/18 Previous Rx's Medication Instructions Recorded Acetaminophen [Tylenol] 650 mg PO Q6HR PRN #0 tablet 01/12/16 Fluticasone Propionate Nasal 2 spray NS DAILY #1 bottle 08/28/17 [Flonase] Guaifenesin [Guaifenesin ER] 600 mg PO BID PRN #20 tab.er.12h 08/28/17 Calcium Carbonate [Tums] 1,000 mg PO Q4HR PRN tab.chew 11/24/17 Carvedilol [Coreg] 6.25 mg PO BIDWM tablet 11/24/17 Collagenase Oint [Santyl] 1 appl TP BID #1 tube 11/24/17 Lactobacillus Acidophilus 1 each PO BID #10 capsule 11/24/17 [Acidophilus] Miconazole w/zinc oxide&karaya 1 appl TP BID #1 tube 11/24/17 [Antifungal Extra Thick] Pregabalin [Lyrica] 75 mg PO BID 30 Days #60 capsule 11/24/17 clonazePAM [Klonopin] 0.5 mg PO BID PRN 5 Days #10 tablet 11/24/17 Doxycycline 100 mg PO BID 8 Days #16 capsule 01/23/18 Fosfomycin Tromethamine [Monurol] 3 gm PO Q48H 8 Days #4 packet 01/23/18 Nystatin POWDER [Nystop] 1 appl TP BID bottle 01/23/18 Allergies Allergy/AdvReac Type Severity Reaction Status Date / Time lisinopril [From Zestril] Allergy Rash Verified 01/17/18 13:50 Past Medical History - Past Medical History Medical history: Reports: CHF, diabetes, hypertension, other Surgical history: Reports: hysterectomy, other Psychiatric history: Reports: depression CLINICAL ASSOC history: Reports: no CLINICAL ASSOC history - Social History Smoking Status: Never smoker Smokeless Tobacco Status: No Alcohol use: Reports: none Drug use: Reports: none Physical Exam - General Limitations: no limitations General appearance: alert, in no apparent distress Course Vital Signs Temperature 99.2 F 01/29/18 16:40 Pulse Rate 132 01/29/18 16:40 Respiratory Rate 20 01/29/18 16:40 Blood Pressure 153/83 01/29/18 16:40 O2 Sat by Pulse Oximetry 94 01/29/18 16:40 Temperature 99.2 F 01/29/18 16:40 Pulse Rate 132 01/29/18 16:40 Respiratory Rate 20 01/29/18 16:40 Blood Pressure 153/83 01/29/18 16:40 O2 Sat by Pulse Oximetry 94 01/29/18 16:40 Oxygen Delivery Oxygen Delivery Non Rebreather Mask Attestation Statement - Attestation Attestation: I examined this patient and my medical decision-making was reviewed with the Resident Physician. I agree with the documented findings, disposition and treatment plan as described except to the extent set forth below. 58 year old eugene presents to the ED with complaints of fall and hypoxia and tachycardia. Upon arrrival she was 84% on RA and tachycardic to 130s. Drake has been followig with pdoatry Dr. Stoll and states that she has diabetic ulcers and has been worsening with increased cellultis changes to the anterior portion of her BLE. Drake has a diabteic ulcer to the R hell of her foot which appears to be necrotic concernin for osteomyeltitis, although it it difficult to assess whetehr this is a chronic appearance or new. Drake has also been complaing of a cough and has had a histroy of fevers and chills and her home health nurse informed her that she had a fever of 102. There is concern for severe sepsis . WE will start sepsis workup and IVF bolus in addition to Ct of lower extremities to rule out osteo and admit ot medicine.
[2018-01-29 17:29] LABS: Bilirubin,Urine Negative (Negative); Blood,Urine Moderate (Negative); Clarity,Urine Turbid (Clear); Color,Urine Yellow (Yellow); Glucose,Urine (UA) 500 mg/dL (Normal); Ketones,Urine Negative (Negative); Leukocyte Esterase,Urine Large (Negative); Nitrite,Urine Negative (Negative); PH,Urine 5.5 pH Units (5.0-8.0); Protein,Urine 100 mg/dL (Neg-Trace); Specific Gravity,Urine 1.018 (1.010-1.025); Urobilinogen,Urine Normal (Normal)
[2018-01-29 17:32] LABS: Basophils # 0.1 K/mcL (0.0-0.2); Basophils % 0.4 %; Eosinophils # 0.1 K/mcL (0.0-0.6); Eosinophils % 0.5 %; Hematocrit 32.6 % (35.3-44.9); Hemoglobin 10.2 g/dL (11.5-15.4); Immature Granulocytes % 0.5 % (0-4); Lymphocytes # 1.1 K/mcL (0.6-4.6); Lymphocytes % 7.8 %; Mean Corpuscular HGB Conc 31.3 g/dL (31.6-35.5); Mean Corpuscular Hemoglobin 24.6 pg (28.0-33.3); Mean Corpuscular Volume 78.6 fL (83.0-100.0); Monocytes # 0.7 K/mcL (0.0-1.3); Monocytes % 4.9 %; Neutrophils # 12.3 K/mcL (1.6-8.9); Platelet Count 209 K/mcL (140-400); Red Blood Count 4.15 M/mcL (3.82-4.97); Red Cell Distribution Width 18.7 % (11.5-14.5); Segmented Neutrophils % 85.9 %
[2018-01-29 17:32] LABS: Bacteria,Urine None Seen per hpf (None-Few); Hyaline Casts,Urine None Seen per lpf (None-Few); RBC,Urine 15-30 per hpf (0-3); Squamous Epithelial Cell,Urine Many per lpf (None-Few); WBC,Urine TNTC per hpf (0-3)
--- NOTE | 2018-01-29 17:38 | Emergency Department Note ---
Disposition Clinical Impression: Asymptomatic bacteriuria Sepsis Qualifiers: Sepsis type: sepsis due to unspecified organism Qualified Code(s): A41.9 - Sepsis, unspecified organism Cellulitis Qualifiers: Site of cellulitis of extremity: lower extremity Disposition: Admitted As Inpatient Condition: Fair Referrals: Jc Tsai MD [Primary Care Provider] - Forms: ED Satisfaction Letter Weakness HPI - General Chief complaint: ED Weakness Stated complaint: General Weakness Time Seen by Provider: 01/29/18 16:45 Source: EMS Mode of arrival: EMS Limitations: no limitations Nursing Notes Reviewed: Yes Vital Signs Reviewed: Yes - History of Present Illness HPI Narrative: 58 year old female presents after a witnessed fall at home. Her called EMS and they got her up and brought her into the hospital. She had been seen by a home health aide earlier in the day for her continued foot wound care, but they did not see anything concerning at that time. On presentation, patient is tachycardic at 130, warm to the touch, and has a visible whole body tremor which she says is present at baseline. She is complaining of pain "all over" but she states this is due to nerve damage and is not better or worse than normal. She is not complaining of any discrete areas of pain, although she does endorse some nausea without abdominal pain. She denies dysuria, hematochezia, vomiting, headache, chest pain, shortness of breath, or difficulty ambulating. Patient lives at home with her and has daily visits from an in-home insurance agent. Pt Subjective Complaint: generalized weakness/fatigue Onset (ago): day(s) (3 days) Pain Scale: 8 - Related Data Home Medications Medication Instructions Recorded Confirmed Furosemide [Lasix] 40 mg PO BID 12/06/16 01/17/18 Brimonidine Tartrate/Timolol 1 drop OP BID 11/10/17 01/17/18 [Combigan 0.2%-0.5% Eye Drops] Diltiazem HCl [Diltiazem 12Hr ER] 120 mg PO DAILY 11/10/17 01/17/18 Esomeprazole Magnesium [Nexium] 40 mg PO DAILY 11/10/17 01/17/18 Gentamicin Oint [Garamycin] 1 appl TP BID 11/10/17 01/17/18 Ketoconazole 2% CRM [Nizoral Cream] 1 appl TP DAILY 11/10/17 01/17/18 Ketorolac Tromethamine 1 drop OP QID 11/10/17 01/17/18 Losartan Potassium [Cozaar] 100 mg PO DAILY 11/10/17 01/17/18 Tizanidine HCl 4 mg PO TID 11/20/17 01/17/18 Gabapentin [Neurontin] 300 mg PO HS 01/17/18 01/17/18 Insulin Glargine,Hum.rec.anlog 40 unit SQ BID 01/17/18 01/17/18 [Basaglar Kwikpen U-100] Potassium Chloride [K-Tab ER] 20 meq PO QID 01/17/18 01/17/18 Previous Rx's Medication Instructions Recorded Calcium Carbonate [Tums] 1,000 mg PO Q4HR PRN tab.chew 11/24/17 Carvedilol [Coreg] 6.25 mg PO BIDWM tablet 11/24/17 Collagenase Oint [Santyl] 1 appl TP BID #1 tube 11/24/17 Lactobacillus Acidophilus 1 each PO BID #10 capsule 11/24/17 [Acidophilus] Miconazole w/zinc oxide&karaya 1 appl TP BID #1 tube 11/24/17 [Antifungal Extra Thick] Pregabalin [Lyrica] 75 mg PO BID 30 Days #60 capsule 11/24/17 clonazePAM [Klonopin] 0.5 mg PO BID PRN 5 Days #10 tablet 11/24/17 Doxycycline 100 mg PO BID 8 Days #16 capsule 01/23/18 Fosfomycin Tromethamine [Monurol] 3 gm PO Q48H 8 Days #4 packet 01/23/18 Nystatin POWDER [Nystop] 1 appl TP BID bottle 01/23/18 Allergies Allergy/AdvReac Type Severity Reaction Status Date / Time lisinopril [From Zestril] Allergy Rash Verified 01/17/18 13:50 Review of Systems: Pt endorses subjective fevers, all over pain, and nausea. She denies chest pain , difficulty breathing or ambulating, abdominal pain, dysuria, hematochezia, headaches, or discrete pain in any extremity. Constitutional: Reports: fever, chills, weakness Cardiovascular: Denies: chest pain Respiratory: Reports: cough. Denies: wheezes Gastrointestinal: Reports: nausea. Denies: abdominal pain, vomiting, diarrhea, constipation, hematochezia Genitourinary: Denies: urgency, dysuria, frequency Musculoskeletal: Reports: other (all over pain at baseline) Integumentary: Reports: rash (venous stasis rash over bilateral lower extremities), lesions (black eschar over almost all of the right heel), other ( white particulate matter in the folds of her pannus) Past Medical History - Past Medical History Medical history: Reports: CHF, diabetes, hypertension, other Surgical history: Reports: hysterectomy, other Psychiatric history: Reports: depression [employer] history: Reports: no [employer] history - Social History Smoking Status: Never smoker Smokeless Tobacco Status: No Alcohol use: Reports: none Drug use: Reports: none Physical Exam - General Limitations: no limitations General appearance: alert, in no apparent distress - Head Head exam: atraumatic - Eye Eye exam: Present: normal appearance - Chest Chest inspection: Present: symmetric chest wall rise - Respiratory Respiratory exam: Present: normal lung sounds bilaterally - Cardiovascular Cardiovascular exam: Present: tachycardia - Abdominal Exam Abdominal exam: Present: soft, Non-Tender - Expanded Lower Extremity Exam Lower leg exam: Present: swelling, erythema (bilateral) Foot/toe exam: Present: swelling, erythema, other (4 inch open wound on the right heel with black eschar) 1 - Open wound Course - Consultations Consultation #1: Spoke with english division chair simulation educator Dr Uriah Simmons who agreed to see the patient while she was admitted as an inpatient for further evaluations of her right lower extremity cellulitis. Time: 19:54 Vital Signs Temperature 99.2 F 01/29/18 16:40 Pulse Rate 132 01/29/18 16:40 Respiratory Rate 20 01/29/18 16:40 Blood Pressure 153/83 01/29/18 16:40 O2 Sat by Pulse Oximetry 94 01/29/18 16:40 Temperature 99.2 F 01/29/18 16:40 Pulse Rate 132 01/29/18 18:51 Respiratory Rate 20 01/29/18 18:51 Blood Pressure 155/86 01/29/18 18:51 O2 Sat by Pulse Oximetry 94 01/29/18 18:51 Oxygen Delivery Oxygen Delivery Nasal Cannula Weakness - MDM Narrative Medical decision making narrative: Pt presented with signs of sepsis - tachycardia, temperature, open wound - and was evaluated for possible sources of infection including urinary, respiratory, and soft tissue. We performed a 2V CXR which showed multifocal pneumonia. We performed a CTA to r/o pulmonary embolism which did not show a PE. We performed a lower extremity CT to r/o osteomyelitis which failed to show an infection in the bone. We performed urinanalysis which showed signs of a UTI. In Addition to these dx, she has diagnosed lower extremity cellulitis for which she is followed by podiatry for. Podiatry was consulted and they said they would see the patient during her admission. The patient will be admitted to the hospital for broad spectrum IV antibiotic therapy to help resolve her infections. - Differential Diagnosis Differential Diagnosis: Likely: sepsis/infection - Medical Records Medical records reviewed: Yes I reviewed the patient's medical records. - Lab Data Lab results reviewed: Yes I reviewed the patient's lab results. Result diagrams: 01/29/18 17:11 01/29/18 17:11 Lab Results 01/29/18 01/29/18 01/29/18 Range/Units 17:11 17:11 17:11 WBC 14.3 H D (4.3-11.1) K/mcL RBC 4.15 (3.82-4.97) M/mcL Hgb 10.2 L (11.5-15.4) g/dL Hct 32.6 L (35.3-44.9) % MCV 78.6 L (83.0-100.0) fL MCH 24.6 L (28.0-33.3) pg MCHC 31.3 L (31.6-35.5) g/dL RDW 18.7 H (11.5-14.5) % Plt Count 209 (140-400) K/mcL MPV 12.0 (9.4-12.4) fL Immature Gran % 0.5 (0-4) % Seg Neutrophils % 85.9 % Lymphocytes % 7.8 % Monocytes % 4.9 % Eosinophils % 0.5 % Basophils % 0.4 % Neutrophils # 12.3 H (1.6-8.9) K/mcL Lymphocytes # 1.1 (0.6-4.6) K/mcL Monocytes # 0.7 (0.0-1.3) K/mcL Eosinophils # 0.1 (0.0-0.6) K/mcL Basophils # 0.1 (0.0-0.2) K/mcL PT 13.8 H (9.4-12.1) Seconds INR 1.2 APTT 28.3 (26.0-36.0) Seconds Sodium 131 L (136-145) mEq/L Potassium 5.5 H (3.5-5.1) mEq/L Chloride 93 L (98-107) mEq/L Carbon Dioxide 31 H (23-29) mEq/L BUN 47 H (6-20) mg/dL Creatinine 1.02 (0.60-1.20) mg/dL Est GFR ( Amer) > 60 (> 60) Est GFR (Non-Af Amer) 56 L (> 60) BUN/Creatinine Ratio 46 H (6-26) Glucose 304 H (70-105) mg/dL Calculated Osmolality 296 (280-300) Lactic Acid (0.5-2.2) mmol/L Calcium 8.7 (8.6-10.3) mg/dL Phosphorus 2.9 (2.7-4.5) mg/dL Magnesium 1.1 L (1.6-2.6) mg/dL Total Bilirubin 0.3 (0.3-1.0) mg/dL Direct Bilirubin 0.3 H (0.0-0.2) mg/dL Indirect Bilirubin 0.0 (0.0-1.2) mg/dL AST 11 L (13-39) Units/L ALT 10 (7-52) Units/L Alkaline Phosphatase 82 (34-104) Units/L Troponin I 0.04 H* (< 0.04) ng/mL B-Natriuretic Peptide (Less than 100) pg/mL Serum Total Protein 7.8 (6.4-8.9) g/dL Albumin 2.7 L (3.5-5.7) g/dL Globulin 5.1 H (2.4-3.5) g/dL Albumin/Globulin Ratio 0.5 L (1.1-2.2) Lipase 84 H (11-82) Units/L Random Cortisol 22.7 mcg/dl Urine Color (Yellow) Urine Clarity (Clear) Urine pH (5.0-8.0) pH Units Ur Specific [place] (1.010-1.025) Urine Protein (Neg-Trace) mg/dL Urine Glucose (UA) (Normal) mg/dL Urine Ketones (Negative) mg/dL Urine Blood (Negative) Urine Nitrite (Negative) Urine Bilirubin (Negative) Urine Urobilinogen (Normal) mg/dL Ur Leukocyte Esterase (Negative) Urine Microscopic RBC (0-3) per hpf Urine Microscopic WBC (0-3) per hpf Ur Squamous Epith Cells (None-Few) per lpf Urine Bacteria (None-Few) per hpf Hyaline Casts (None-Few) per lpf Ur Culture Indicated? (NO) 01/29/18 01/29/18 01/29/18 Range/Units 17:11 17:11 17:15 WBC (4.3-11.1) K/mcL RBC (3.82-4.97) M/mcL Hgb (11.5-15.4) g/dL Hct (35.3-44.9) % MCV (83.0-100.0) fL MCH (28.0-33.3) pg MCHC (31.6-35.5) g/dL RDW (11.5-14.5) % Plt Count (140-400) K/mcL MPV (9.4-12.4) fL Immature Gran % (0-4) % Seg Neutrophils % % Lymphocytes % % Monocytes % % Eosinophils % % Basophils % % Neutrophils # (1.6-8.9) K/mcL Lymphocytes # (0.6-4.6) K/mcL Monocytes # (0.0-1.3) K/mcL Eosinophils # (0.0-0.6) K/mcL Basophils # (0.0-0.2) K/mcL PT (9.4-12.1) Seconds INR APTT (26.0-36.0) Seconds Sodium (136-145) mEq/L Potassium (3.5-5.1) mEq/L Chloride (98-107) mEq/L Carbon Dioxide (23-29) mEq/L BUN (6-20) mg/dL Creatinine (0.60-1.20) mg/dL Est GFR ( Amer) (> 60) Est GFR (Non-Af Amer) (> 60) BUN/Creatinine Ratio (6-26) Glucose (70-105) mg/dL Calculated Osmolality (280-300) Lactic Acid 1.5 (0.5-2.2) mmol/L Calcium (8.6-10.3) mg/dL Phosphorus (2.7-4.5) mg/dL Magnesium (1.6-2.6) mg/dL Total Bilirubin (0.3-1.0) mg/dL Direct Bilirubin (0.0-0.2) mg/dL Indirect Bilirubin (0.0-1.2) mg/dL AST (13-39) Units/L ALT (7-52) Units/L Alkaline Phosphatase (34-104) Units/L Troponin I (< 0.04) ng/mL B-Natriuretic Peptide 66 (Less than 100) pg/mL Serum Total Protein (6.4-8.9) g/dL Albumin (3.5-5.7) g/dL Globulin (2.4-3.5) g/dL Albumin/Globulin Ratio (1.1-2.2) Lipase (11-82) Units/L Random Cortisol mcg/dl Urine Color Yellow (Yellow) Urine Clarity Turbid A (Clear) Urine pH 5.5 (5.0-8.0) pH Units Ur Specific [place] 1.018 (1.010-1.025) Urine Protein 100 H (Neg-Trace) mg/dL Urine Glucose (UA) 500 H (Normal) mg/dL Urine Ketones Negative (Negative) mg/dL Urine Blood Moderate H (Negative) Urine Nitrite Negative (Negative) Urine Bilirubin Negative (Negative) Urine Urobilinogen Normal (Normal) mg/dL Ur Leukocyte Esterase Large H (Negative) Urine Microscopic RBC 15-30 H (0-3) per hpf Urine Microscopic WBC TNTC H (0-3) per hpf Ur Squamous Epith Cells Many H (None-Few) per lpf Urine Bacteria None Seen (None-Few) per hpf Hyaline Casts None Seen (None-Few) per lpf Ur Culture Indicated? NO. A (NO) - Radiology Data Radiology results reviewed: Yes I reviewed the patient's radiology results. Chest X-Ray 01/29/18 16:56 IMPRESSION: 1. Increasing pulmonary edema with worsening bibasilar atelectasis. D/ / Hair Sands MD / Hair Sands MD Interpreting Provider: Hair Sands MD Lower Extremity CT 01/29/18 16:56 IMPRESSION: 1. Re- demonstration of extensive subcutaneous edema skin thickening of the bilateral lower extremities similar to previous exam. Findings may reflect chronic venous stasis/lymph edema versus cellulitis. Recommend clinical correlation. No organized drainable fluid collection identified. 2. Ulceration identified along the plantar aspect of the right foot at the level of the calcaneus which is new compared with previous exam. 3. Re- demonstration of remote fracture of the left 5th metatarsal base with no evidence for osseous bridging or callus formation. D/ / Iftikhar Ann MD / Iftikhar Ann MD Interpreting Provider: Iftikhar Ann MD Chest CTA 01/29/18 18:03 IMPRESSION: 1. Study limited by patient motion artifact and the left arm overlying the chest, causing streak artifact through the pulmonary arteries. However, there is no gross CT evidence of a pulmonary embolism. 2. No acute abnormality of the thoracic aorta. 3. Multifocal airspace consolidation throughout both lungs most likely reflects multifocal pneumonia. Additional scattered ground-glass opacity likely reflects either the continuum of multifocal pneumonia or additional superimposed asymmetric edema. Suggest appropriate clinical treatment, short-term chest CT follow-up in 6-8 weeks to ensure resolution of the multifocal airspace opacities. 4. Trace right pleural effusion. 5. Stable 2.4 cm low-attenuation nodule within the left thyroid lobe. Unless this has already been clinically worked up, further follow-up of this nodule is as advised below. RECOMMENDATIONS: Managing Incidental Thyroid Nodule Detected at CT or MRI or US Further evaluation by thyroid Ultrasound recommended for these incidental nodules: Patient Age 18 years or less - Nodule of any size Patient Age 19-34 years old - Nodule 1 cm in size or greater Patient Age 35 years or more - nodule 1.5 cm in size or greater Note: These recommendations do not apply to pts. w/ increased risk for thyroid cancer or pts. with symptomatic thyroid disease. Recommendations for f/u of Incidental Thyroid Nodules (ITN) found on CT, MR, NM and Extrathyroidal US are based upon the ACR white paper and Hoang 3-tiered system for managing ITNs: J Am Carrie Radiol. 2014;12(2): 143-50 D/ / 01/29/2018 19:36:39 Michi Reed MD / earnold Interpreting Provider: Michi Reed MD - EKG Data EKG attestation: Yes I reviewed and interpreted this EKG. EKG results narrative: Heart rate is 126 beats per minute. No ST segment elevation or depression. Rhythm is sinus tachycardia.
[2018-01-29 17:39] LABS: INR 1.2; Prothrombin Time 13.8 Seconds (9.4-12.1)
[2018-01-29 17:41] LABS: Activated Partial Thrombo Time 28.3 Seconds (26.0-36.0)
[2018-01-29 17:56] LABS: Alanine Aminotransferase 10 Units/L (7-52); Albumin 2.7 g/dL (3.5-5.7); Albumin/Globulin Ratio 0.5 (1.1-2.2); Alkaline Phosphatase 82 Units/L (34-104); Aspartate Amino Transferase 11 Units/L (13-39); BUN/Creatinine Ratio 46 (6-26); Bilirubin,Direct 0.3 mg/dL (0.0-0.2); Bilirubin,Total 0.3 mg/dL (0.3-1.0); Blood Urea Nitrogen 47 mg/dL (6-20); Calcium 8.7 mg/dL (8.6-10.3); Carbon Dioxide 31 mEq/L (23-29); Chloride 93 mEq/L (98-107); Globulin 5.1 g/dL (2.4-3.5); Glucose 304 mg/dL (70-105); Lipase 84 Units/L (11-82); Magnesium 1.1 mg/dL (1.6-2.6); Osmolality,Calculated 296 (280-300); Phosphorous 2.9 mg/dL (2.7-4.5); Potassium 5.5 mEq/L (3.5-5.1); Sodium 131 mEq/L (136-145); Total Protein 7.8 g/dL (6.4-8.9); eGFR For Non-African Americans 56 (> 60)
[2018-01-29 18:02] LABS: Troponin I 0.04 ng/mL (< 0.04)
[2018-01-29] MEDS ORDERED: Aspirin 325 MG TABLET PO ONE (18:08)
[2018-01-29] MEDS ORDERED: Levofloxacin 750 MG/150 ML 750 MG/150 ML BAG IVPB ONE (19:15)
--- NOTE | 2018-01-29 20:39 | Internal Med History&Physical ---
<Blanco Nelson - Last Filed: 01/29/18 22:25> Date of Encounter: 01/29/18 Time of Encounter: 20:31 Internal Medicine - H&P: HPI Chief complaint: Fall Admitted From: Home History of present illness: Ms. Magallanes is a 58 year old female with a PMH of diastolic CHF, hypertension, HLD , diabetes mellitus type 2, and worsening diabetic ulcers who presents due to fall, fever, chills, cough, and SOB. On arrival, SpO2 was 84% on RA and HR was in the 130s. Her home health nurse reported a fever of 102 F. Patient reports seeing Podiatry, Dr. Stoll for a necrotic right heel ulcer and bilateral lower extremity cellulitis. Patient was started on IVF sepsis bolus, empiric Vanc, Zosyn, and Levaquin, and CT of legs was performed to evaluate for osteomyelitis. Patient denies dysuria, hematochezia, nausea, vomiting, headache , chest pain, or difficulty ambulating. Patient lives at home with her and has daily visits from home health. During most recent hospitalization, patient adamantly refused going to a SNF and requested to go home. Patient was discharged home to complete course of Doxycycline and Fosfomcin until 01/30/18 for UTI with ESBL Klebsiella per ID recommendations. Past Med Surg Social Fam HX - Past Medical History Medical history: CHF, diabetes, hypertension, other Additional medical history: DM Neuropathy Psychiatric history: depression - Past Surgical History Surgical History: hysterectomy, other Additional surgical history: neck surgery, - Social History Smoking Status: Never smoker Smokeless Tobacco Status: No Alcohol use: none Drug use: none - Family History Mother Adopted: No Family Member Ethnicity: Non- Living Status: Hx Family Endocrine Disorder: Yes (diabetes type 2) Father Adopted: No Family Member Ethnicity: Non- Living Status: Hx Family Cardiac Disorders: Yes (hypertension) Hx Family Respiratory Disorders: No Hx Family Cancer: No Hx Family GI Disorders: No Hx Family Endocrine Disorder: Yes (kidney disease) Internal Medicine - H&P: Meds Atorvastatin [Lipitor] 40 mg PO HS 01/11/16 [History] Insulin ASPART [Novolog Flexpen] 6 - 14 unit SQ TID 01/11/16 [History] Latanoprost [Xalatan] 1 drop BOTH EYES HS 01/11/16 [History] Primidone [Mysoline] 25 - 50 mg PO BID PRN 01/11/16 [History] Acetaminophen [Tylenol] 650 mg PO Q6HR PRN #0 tablet 01/12/16 [Rx] Ascorbic Acid [Vitamin C] 500 mg PO BID 03/25/16 [History] Docusate Sodium [Colace] 200 mg PO BID 03/25/16 [History] Furosemide [Lasix] 40 mg PO BID 12/06/16 [History] Fluticasone Propionate Nasal [Flonase] 2 spray NS DAILY #1 bottle 08/28/17 [Rx] Guaifenesin [Guaifenesin ER] 600 mg PO BID PRN #20 tab.er.12h 08/28/17 [Rx] Brimonidine Tartrate/Timolol [Combigan 0.2%-0.5% Eye Drops] 1 drop OP BID [History] Diltiazem HCl [Diltiazem 12Hr ER] 120 mg PO DAILY 11/10/17 [History] Esomeprazole Magnesium [Nexium] 40 mg PO DAILY 11/10/17 [History] Gentamicin Oint [Garamycin] 1 appl TP BID 11/10/17 [History] Ketoconazole 2% CRM [Nizoral Cream] 1 appl TP DAILY 11/10/17 [History] Ketorolac Tromethamine 1 drop OP QID 11/10/17 [History] Losartan Potassium [Cozaar] 100 mg PO DAILY 11/10/17 [History] Tizanidine HCl 4 mg PO TID 11/20/17 [History] Calcium Carbonate [Tums] 1,000 mg PO Q4HR PRN tab.chew 11/24/17 [Rx] Carvedilol [Coreg] 6.25 mg PO BIDWM tablet 11/24/17 [Rx] Collagenase Oint [Santyl] 1 appl TP BID #1 tube 11/24/17 [Rx] Lactobacillus Acidophilus [Acidophilus] 1 each PO BID #10 capsule 11/24/17 [Rx] Miconazole w/zinc oxide&karaya [Antifungal Extra Thick] 1 appl TP BID #1 tube [Rx] Pregabalin [Lyrica] 75 mg PO BID 30 Days #60 capsule 11/24/17 [Rx] clonazePAM [Klonopin] 0.5 mg PO BID PRN 5 Days #10 tablet 11/24/17 [Rx] Gabapentin [Neurontin] 300 mg PO HS 01/17/18 [History] Insulin Glargine,Hum.rec.anlog [Basaglar Kwikpen U-100] 40 unit SQ BID 01/17/18 [History] Potassium Chloride [K-Tab ER] 20 meq PO QID 01/17/18 [History] Doxycycline 100 mg PO BID 8 Days #16 capsule 01/23/18 [Rx] Fosfomycin Tromethamine [Monurol] 3 gm PO Q48H 8 Days #4 packet 01/23/18 [Rx] Nystatin POWDER [Nystop] 1 appl TP BID bottle 01/23/18 [Rx] 3 Allergy/AdvReac Type Severity Reaction Status Date / Time lisinopril [From Zestril] Allergy Rash Verified 01/17/18 13:50 All Systems PM: A 10-system review of systems was performed and is negative for pertinent findings except as documented above in the HPI. - Constitutional Constitutional: chills, fever(s), no anorexia, no lethargy, no malaise, no weight gain, no weight loss - EENT Eyes: no blurry vision, no diplopia Nose, mouth and throat: no sinus pain, no sore throat - Cardiovascular Cardiovascular ROS IM: palpitations, no chest pain, no dyspnea - Respiratory Respiratory: cough, no wheezing, no chest congestion - Gastrointestinal Gastrointestinal: no abdominal pain, no constipation, no diarrhea, no nausea, no vomiting - Genitourinary Genitourinary: no dysuria, no flank pain, no urinary frequency, no urinary urgency - Musculoskeletal Musculoskeletal ROS IM: numbness (peripheral neuropathy), no back pain, no tingling - Integumentary Integumentary IM: erythema, rash, skin ulcer - Neurological Neurological ROS: numbness (peripheral neuropathy), weakness, no confusion, no dizziness - Psychiatric Psychiatric: no anxiety, no depression - Endocrine Endocrine IM: fatigue, no polydipsia, no polyphagia, no polyuria - Hematologic/Lymphatic Hematologic/Lymphatic: easy bruising, no easy bleeding, no lymphadenopathy - Allergic/Immunologic Allergic/Immunologic: no wheezing - Constitutional Vitals: Temp Pulse Resp BP Pulse Ox 99.2 F 132 20 155/86 94 01/29/18 16:40 01/29/18 18:51 01/29/18 18:51 01/29/18 18:51 01/29/18 18:51 General appearance: Present: cooperative, A&O X 3, morbidly obese, pleasant, answers questions appropriately - Head Head exam: Present: atraumatic, normocephalic - Eye Eye exam: Present: EOMI, PERRL, conjuntiva pink, sclera anicteric Pupils: Present: PERRL - ENT ENT exam: Present: mucous membranes dry, normal oropharynx - Neck Neck exam general surgery: Present: supple, trachea midline. Absent: lymphadenopathy - Respiratory Respiratory exam: Present: decreased breath sounds, rales. Absent: accessory muscle use, rhonchi, wheezes - Cardiovascular Cardiovascular exam: Present: +S1, +S2, tachycardia. Absent: diastolic murmur, gallop, RRR, rubs, systolic murmur - GI/Abdominal GI/Abdominal exam: Present: normal bowel sounds, soft (obese), no peritoneal signs. Absent: distended, guarding, tenderness - Extremities Exam Extremities exam: Present: pedal edema (2+), warm, radial pulses palpable and symmetrical. Absent: calf tenderness, cyanotic, normal capillary refill (4 seconds), normal inspection (bilateral venous stasis with necrotic right heel ulcer, ulcer left medial great toe) - Neurological Exam Neurological exam: Present: CN II-XII intact, oriented X3, no focal deficits. Absent: pronater drift, facial droop, speech deficit - Psychiatric Psychiatric exam: Present: normal affect, normal mood - Skin Skin exam: Present: erythema (bilateral venous stasis with necrotic right heel ulcer, ulcer left medial great toe), rash. Absent: normal color Internal Med - H&P Results - Labs CBC & Chem 7: 01/29/18 17:11 01/29/18 17:11 Labs: Short CBC 01/29/18 Range/Units 17:11 WBC 14.3 H D (4.3-11.1) K/mcL Hgb 10.2 L (11.5-15.4) g/dL Hct 32.6 L (35.3-44.9) % Plt Count 209 (140-400) K/mcL Neutrophils # 12.3 H (1.6-8.9) K/mcL BMP 01/29/18 17:11 Sodium 131 L Potassium 5.5 H Chloride 93 L Carbon Dioxide 31 H BUN 47 H Creatinine 1.02 Glucose 304 H Calcium 8.7 Cardiac Enzymes 01/29/18 Range/Units 17:11 Troponin I 0.04 H* (< 0.04) ng/mL Liver Function 01/29/18 Range/Units 17:11 Total Bilirubin 0.3 (0.3-1.0) mg/dL Direct Bilirubin 0.3 H (0.0-0.2) mg/dL AST 11 L (13-39) Units/L ALT 10 (7-52) Units/L Alkaline Phosphatase 82 (34-104) Units/L Albumin 2.7 L (3.5-5.7) g/dL Urine 01/29/18 Range/Units 17:15 Urine Color Yellow (Yellow) Urine Clarity Turbid A (Clear) Urine pH 5.5 (5.0-8.0) pH Units Ur Specific [place] 1.018 (1.010-1.025) Urine Protein 100 H (Neg-Trace) mg/dL Urine Glucose (UA) 500 H (Normal) mg/dL - Pulse Oximetry Interpretation Digit-Finger O2 Sat by Pulse Oximetry: 98 (On 4L O2 via NC) - EKG Data -: EKG Interpreted by Myself EKG shows normal: sinus rhythm Rate: tachycardia - Impressions ITS Impressions Chest X-Ray 01/29/18 16:56 IMPRESSION: 1. Increasing pulmonary edema with worsening bibasilar atelectasis. D/ / Hair Sands MD / Hair Sands MD Interpreting Provider: Hair Sands MD Lower Extremity CT 01/29/18 16:56 IMPRESSION: 1. Re- demonstration of extensive subcutaneous edema skin thickening of the bilateral lower extremities similar to previous exam. Findings may reflect chronic venous stasis/lymph edema versus cellulitis. Recommend clinical correlation. No organized drainable fluid collection identified. 2. Ulceration identified along the plantar aspect of the right foot at the level of the calcaneus which is new compared with previous exam. 3. Re- demonstration of remote fracture of the left 5th metatarsal base with no evidence for osseous bridging or callus formation. D/ / Iftikhar Ann MD / Iftikhar Ann MD Interpreting Provider: Iftikhar Ann MD Chest CTA 01/29/18 18:03 IMPRESSION: 1. Study limited by patient motion artifact and the left arm overlying the chest, causing streak artifact through the pulmonary arteries. However, there is no gross CT evidence of a pulmonary embolism. 2. No acute abnormality of the thoracic aorta. 3. Multifocal airspace consolidation throughout both lungs most likely reflects multifocal pneumonia. Additional scattered ground-glass opacity likely reflects either the continuum of multifocal pneumonia or additional superimposed asymmetric edema. Suggest appropriate clinical treatment, short-term chest CT follow-up in 6-8 weeks to ensure resolution of the multifocal airspace opacities. 4. Trace right pleural effusion. 5. Stable 2.4 cm low-attenuation nodule within the left thyroid lobe. Unless this has already been clinically worked up, further follow-up of this nodule is as advised below. RECOMMENDATIONS: Managing Incidental Thyroid Nodule Detected at CT or MRI or US Further evaluation by thyroid Ultrasound recommended for these incidental nodules: Patient Age 18 years or less - Nodule of any size Patient Age 19-34 years old - Nodule 1 cm in size or greater Patient Age 35 years or more - nodule 1.5 cm in size or greater Note: These recommendations do not apply to pts. w/ increased risk for thyroid cancer or pts. with symptomatic thyroid disease. Recommendations for f/u of Incidental Thyroid Nodules (ITN) found on CT, MR, NM and Extrathyroidal US are based upon the ACR white paper and Hoang 3-tiered system for managing ITNs: J Am Carrie Radiol. 2015 Aug;12(2): 143-50 D/ / 01/29/2018 19:36:39 Michi Reed MD [facility] Interpre[facility] Provider: Michi Reed MD - Assessment and plan (1) Sepsis Current Visit: Yes Status: Acute Assessment and plan: Patient meet sepsis criteria with leukocytosis WBC 14,300, tachycardia HR 132, and multifocal PNA, UTI, and cellulitis as potential sources of infection. Her home health nurse reported a fever of 102 F. IVF sepsis bolus given in ED, cautious hydration given h/o CHF Blood culture pending Qualifiers: Sepsis type: sepsis due to unspecified organism Qualified Code(s): A41.9 - Sepsis, unspecified organism (2) UTI (urinary tract infection) Current Visit: Yes Status: Acute Assessment and plan: During most recent hospitalization, patient was discharged home to complete course of Doxycycline and Fosfomcin until 01/30/18 for UTI with ESBL Klebsiella per ID recommendations. UA reveals large leukocyte estrase, WBC TNTC Urine culture pending Continue empiric antibiotics Qualifiers: Urinary tract infection type: site unspecified Hematuria presence: without hematuria Qualified Code(s): N39.0 - Urinary tract infection, site not specified (3) Ulcer of right heel Current Visit: Yes Status: Chronic Assessment and plan: Patient reports seeing Podiatry, Dr. Stoll for a necrotic right heel ulcer and bilateral lower extremity cellulitis. Patient was started on IVF sepsis bolus, empiric Vanc, Zosyn, and Levaquin CT of legs was negative for osteomyelitis. Patient lives at home with her and has daily visits from home health. Podiatry, Dr. Simmons was notified of consult by ED physician NPO, anticipate surgical debridement Qualifiers: Non-pressure ulcer stage: with fat layer exposed Qualified Code(s): L97.412 - Non-pressure chronic ulcer of right heel and midfoot with fat layer exposed (4) Diabetic foot ulcer Current Visit: Yes Status: Chronic Assessment and plan: Skin ulceration overlying remote fracture of the left 5th metatarsal base with no evidence for osseous bridging or callus formation Qualifiers: Diabetic foot ulcer location: midfoot Diabetes mellitus type: type 2 Laterality: right Non-pressure ulcer stage: limited to breakdown of skin Qualified Code(s): E11.621 - Type 2 diabetes mellitus with foot ulcer; L97.411 - Non-pressure chronic ulcer of right heel and midfoot limited to breakdown of skin (5) Venous stasis dermatitis of both lower extremities Current Visit: Yes Status: Chronic Assessment and plan: CT legs revealed re- demonstration of extensive subcutaneous edema skin thickening of the bilateral lower extremities similar to previous exam. Findings may reflect chronic venous stasis/lymph edema versus cellulitis. Recommend clinical correlation. No organized drainable fluid collection identified. Continue wound care (6) Diastolic heart failure Current Visit: Yes Status: Acute Assessment and plan: Acute on chronic diastolic CHF exacerbation Patient with SOB, pedal edema, rales on exam, and tachycardia HR 130 CXR revealed increasing pulmonary edema with worsening bibasilar atelectasis. Echo 11/11/17 revealed LVEF 55-60%, mild concentric LVH Continue Lasix IV Resume home beta geena Qualifiers: Heart failure chronicity: acute on chronic Qualified Code(s): I50.33 - Acute on chronic diastolic (congestive) heart failure (7) Type 2 diabetes mellitus Current Visit: No Status: Chronic Assessment and plan: HGB a1c level 11% on 09/20/17 Continue basal and SSI Monitor accu-checks Qualifiers: Diabetes mellitus snf insulin use: with termite exterminator helper use Diabetes mellitus complication status: with skin complications Diabetes mellitus complication detail: with dermatitis Qualified Code(s): E11.620 - Type 2 diabetes mellitus with diabetic dermatitis; Z79.4 - long term care administrator (current) use of insulin; Z79.4 - intermediate (current) use of insulin; Z79.4 - intermediate (current ) use of insulin; Z79.4 - long term care administrator (current) use of insulin (8) HTN (hypertension) Current Visit: No Status: Chronic Assessment and plan: Resume home meds Qualifiers: Hypertension type: essential hypertension Qualified Code(s): I10 - Essential (primary) hypertension (9) HLD (hyperlipidemia) Current Visit: No Status: Chronic Assessment and plan: Resume home meds Qualifiers: Hyperlipidemia type: mixed hyperlipidemia Qualified Code(s): E78.2 - Mixed hyperlipidemia (10) REGINALD on CPAP Current Visit: No Status: Chronic Assessment and plan: Continue CPAP at night (11) Morbid obesity Current Visit: No Status: Chronic Assessment and plan: Lifestyle modification (12) DVT prophylaxis Current Visit: No Status: Acute Assessment and plan: Heparin subQ TID (13) HAP (hospital-acquired pneumonia) Current Visit: Yes Status: Acute Assessment and plan: Patient with fever, chills, cough, and SOB. On arrival, SpO2 was 84% on RA and HR was in the 130s. CXR revealed increasing pulmonary edema with worsening bibasilar atelectasis. CTA revealed multifocal airspace consolidation throughout both lungs most likely reflects multifocal pneumonia. No gross CT evidence of a pulmonary embolism. Patient reports seeing Podiatry, Dr. Stoll for a necrotic right heel ulcer and bilateral lower extremity cellulitis. Patient was started on IVF sepsis bolus, empiric Continue empiric Vanc, Zosyn, and Levaquin Continue bronchodilators (Xopenex due to tachycardia) Incentive spirometry - Time Spent With Patient Total time spent is greater than 50% in coordination of care (as documented) at patient's floor/unit and/or counseling patient: <Buffy Mccoy Thang - Last Filed: 01/30/18 02:03> Date of Encounter: 01/30/18 Internal Medicine - H&P: HPI History of present illness: Ms. Magallanes is a 58 year old female All Systems PM: A 10-system review of systems was performed and is negative for pertinent findings except as documented above in the HPI. - Constitutional Vitals: Temp Pulse Resp BP Pulse Ox 98.4 F 116 18 132/63 96 01/29/18 22:59 01/29/18 22:59 01/29/18 22:59 01/29/18 22:59 01/29/18 22:59 Internal Med - H&P Results - Labs CBC & Chem 7: 01/29/18 17:11 01/29/18 17:11 Labs: Cardiac Enzymes 01/29/18 Range/Units 23:00 Troponin I 0.14 H* (< 0.04) ng/mL - Attending Attestation Patient seen and examined, history and physical reviewed discussed with resident physician. S 58-year-old female with past medical history of diabetes diabetic ulcer , patient brought to emergency room today with complain of generalized weakness diffuse body aching fever chills tachycardia, CAT scan chest that was consistent with possible multifocal pneumonia, O Currently patient have febrile after starting antibiotic and Tylenol, she is tachycardic heart rate 115 blood pressure stable Chest decreased breathing sound bilateral scattered crackles heart s1 S2 normal regular tenderness Abdomen soft morbidly obese Extremity diffuse erythema bilaterally lower extremity on the chain of tibia warm to touch edema +2-3 bilateral lower extremities, diabetic right heel ulcer A/P Sepsis secondary to multifocal pneumonia Multifocal pneumonia Hyperkalemia Hypomagnesemia Cellulitis lower extremities History of peripheral vascular disease diabetic foot ulcer Agree with plan as listed above add Kayexlate for her hyperkalemia, replace magnesium, Cl wrap lower extremities, patient need to compression therapy for lower extremities to help with her cellulites, aerosol treatment every 4 hour, add Mucinex, insulin sliding scale every 4 hour, sputum culture Gram stain, empiric antibiotic coverage awaiting final results of blood cultures sputum culture, we will check electrolytes - Assessment and plan (1) UTI (urinary tract infection) Current Visit: Yes Status: Acute Qualifiers: Urinary tract infection type: site unspecified Hematuria presence: without hematuria Qualified Code(s): N39.0 - Urinary tract infection, site not specified (2) DVT prophylaxis Current Visit: No Status: Acute (3) Morbid obesity Current Visit: No Status: Chronic (4) HTN (hypertension) Current Visit: No Status: Chronic Qualifiers: Hypertension type: essential hypertension Qualified Code(s): I10 - Essential (primary) hypertension (5) HLD (hyperlipidemia) Current Visit: No Status: Chronic Qualifiers: Hyperlipidemia type: mixed hyperlipidemia Qualified Code(s): E78.2 - Mixed hyperlipidemia (6) Venous stasis dermatitis of both lower extremities Current Visit: Yes Status: Chronic (7) Diastolic heart failure Current Visit: Yes Status: Acute Qualifiers: Heart failure chronicity: acute on chronic Qualified Code(s): I50.33 - Acute on chronic diastolic (congestive) heart failure (8) Diabetic foot ulcer Current Visit: Yes Status: Chronic Qualifiers: Diabetic foot ulcer location: midfoot Diabetes mellitus type: type 2 Laterality: right Non-pressure ulcer stage: limited to breakdown of skin Qualified Code(s): E11.621 - Type 2 diabetes mellitus with foot ulcer; L97.411 - Non-pressure chronic ulcer of right heel and midfoot limited to breakdown of skin (9) Ulcer of right heel Current Visit: Yes Status: Chronic Qualifiers: Non-pressure ulcer stage: with fat layer exposed Qualified Code(s): L97.412 - Non-pressure chronic ulcer of right heel and midfoot with fat layer exposed (10) Type 2 diabetes mellitus Current Visit: No Status: Chronic Qualifiers: Diabetes mellitus snf insulin use: with snf use Diabetes mellitus complication status: with skin complications Diabetes mellitus complication detail: with dermatitis Qualified Code(s): E11.620 - Type 2 diabetes mellitus with diabetic dermatitis; Z79.4 - intermediate (current) use of insulin; Z79.4 - intermediate (current) use of insulin; Z79.4 - intermediate (current ) use of insulin; Z79.4 - intermediate (current) use of insulin (11) REGINALD on CPAP Current Visit: No Status: Chronic (12) Sepsis Current Visit: Yes Status: Acute Qualifiers: Sepsis type: sepsis due to unspecified organism Qualified Code(s): A41.9 - Sepsis, unspecified organism (13) HAP (hospital-acquired pneumonia) Current Visit: Yes Status: Acute - Time Spent With Patient Total time spent is greater than 50% in coordination of care (as documented) at patient's floor/unit and/or counseling patient:
[2018-01-29] MEDS ORDERED: Acetaminophen 325 MG TABLET PO PRN (20:55)
[2018-01-29] MEDS ORDERED: Naloxone 0.4 MG/ML INJ IVP PRN (20:55)
[2018-01-29] MEDS ORDERED: D5% in Water 1,000 ML IVC PRN (21:00)
[2018-01-29] MEDS ORDERED: *HR* Dextrose 50 % in Water (Syg) 50 ML SYRINGE IVP PRN (21:00)
[2018-01-29] MEDS ORDERED: Dextrose Gel 15 GM/37.5 ML TUBE PO PRN ×2 (21:00)
[2018-01-29] MEDS ORDERED: Vancomycin (wt based) 1,000 MG VIAL IVPB SCH (21:00)
[2018-01-29] MEDS ORDERED: Thiamine (B-1) 100 MG in D5% in Water 50 ML IVPB ONE (22:46)
[2018-01-29 22:58] LABS: C-Reactive Protein 140 mg/L (Less than 10)
[2018-01-29] MEDS: Levalbuterol Neb 0.63 MG/3 ML IH SCH (22:59)
[2018-01-29] MEDS: Ipratropium 1 PUFF INHALER IH SCH (22:59)
[2018-01-29 23:50] LABS: Magnesium 1.1 mg/dL (1.6-2.6)
[2018-01-29 23:56] LABS: Troponin I 0.14 ng/mL (< 0.04)
[2018-01-29] MEDS: Insulin DETEMIR 100 UNIT/ML X5UNITS SQ SCH (23:57)
[2018-01-30] MEDS: *HR* Heparin 5,000 UNIT/ML VIAL SQ SCH ×4 (00:08→22:29)
[2018-01-30] MEDS: Piperacillin/Tazobactam 3.375 GM in 0.9 % Sodium Chloride Mini Bag 100 ML IVPB SCH ×3 (00:38→15:12)
[2018-01-30] MEDS ORDERED: Insulin LISPRO 300 UNITS/3 ML VIAL SQ SCH ×2 (04:00)
[2018-01-30] MEDS: Levalbuterol Neb 0.63 MG/3 ML IH SCH ×4 (04:30→22:50)
[2018-01-30] MEDS: Ipratropium 1 PUFF INHALER IH SCH ×4 (04:32→22:50)
[2018-01-30 05:10] LABS: Basophils % 0.5 %; Eosinophils # 0.1 K/mcL (0.0-0.6); Eosinophils % 0.9 %; Hematocrit 28.4 % (35.3-44.9); Hemoglobin 8.6 g/dL (11.5-15.4); Immature Granulocytes % 0.7 % (0-4); Lymphocytes # 1.7 K/mcL (0.6-4.6); Lymphocytes % 22.1 %; Mean Corpuscular HGB Conc 30.3 g/dL (31.6-35.5); Mean Corpuscular Hemoglobin 24.5 pg (28.0-33.3); Mean Corpuscular Volume 80.9 fL (83.0-100.0); Mean Platelet Volume 11.9 fL (9.4-12.4); Monocytes # 0.5 K/mcL (0.0-1.3); Monocytes % 6.5 %; Neutrophils # 5.2 K/mcL (1.6-8.9); Platelet Count 166 K/mcL (140-400); Red Blood Count 3.51 M/mcL (3.82-4.97); Red Cell Distribution Width 18.7 % (11.5-14.5); Segmented Neutrophils % 69.3 %
[2018-01-30 05:36] LABS: BUN/Creatinine Ratio 40 (6-26); Blood Urea Nitrogen 39 mg/dL (6-20); Carbon Dioxide 31 mEq/L (23-29); Chloride 99 mEq/L (98-107); Glucose 170 mg/dL (70-105); Magnesium 1.5 mg/dL (1.6-2.6); Osmolality,Calculated 293 (280-300); Potassium 4.3 mEq/L (3.5-5.1); Sodium 135 mEq/L (136-145); eGFR For Non-African Americans 58 (> 60)
[2018-01-30 05:37] LABS: Troponin I 0.18 ng/mL (< 0.04)
--- NOTE | 2018-01-30 07:32 | Electrocardiograph Report ---
[place] [id number] Test Date: 2018-01-29 Pat Name: Pauly Magallanes Department: 103 Room: 2NE27 Gender: F Therapy Manager: EKP : [id number] Requested By: Anaid Manuel Order Number: [id number] Reading MD: Aj Valero Measurements Intervals [place] Rate: 126 P: 55 FL: 124 QRS: 5 QRSD: 80 T: 72 QT: 291 QTc: 365 Interpretive Statements SINUS TACHYCARDIA Electronically Signed On 01-30-2018 7:30:52 EDT by Aj Valero
[2018-01-30] MEDS ORDERED: Levofloxacin 750 MG/150 ML 750 MG/150 ML BAG IVPB SCH (09:00)
[2018-01-30] MEDS ORDERED: *HR* Enoxaparin 150 MG/ML SYRINGE SQ STA (12:10)
[2018-01-30] MEDS ORDERED: clonazePAM 0.5 MG TABLET PO PRN (12:11)
[2018-01-30] MEDS ORDERED: Primidone 50 MG TABLET PO PRN (12:11)
[2018-01-30] MEDS ORDERED: FOSFOMYCIN TROMETHAMINE 3 GM PO SCH (12:15)
[2018-01-30] MEDS: Thiamine (B-1) 100 MG TABLET PO SCH (12:37)
[2018-01-30] MEDS: Aspirin 81 MG TAB.CHEW PO SCH (12:38)
[2018-01-30] MEDS: Insulin LISPRO 300 UNITS/3 ML VIAL SQ SCH ×3 (13:03→22:30)
--- NOTE | 2018-01-30 13:17 | Podiatry Consult Note ---
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 WBC: 14.3 upon admission, 7.5 today Wound cultures of right leg from 01/18/[address] Lower Extremity CT 01/29/18 16:56 IMPRESSION: 1. Re- demonstration of extensive subcutaneous edema skin thickening of the bilateral lower extremities similar to previous exam. Findings may reflect chronic venous stasis/lymph edema versus cellulitis. No organized drainable fluid collection identified. 2. Ulceration identified along the plantar aspect of the right foot at the level of the calcaneus which is new compared with previous exam. 3. Re- demonstration of remote fracture of the left 5th metatarsal base with no evidence for osseous bridging or callus formation. Plan Dr. Stoll to plan for debridement of right heel in the OR on 02/01/18. Will right for wound care orders. Antibiotics per Infectious Disease. Qualifiers: Non-pressure ulcer stage: with fat layer exposed Qualified Code(s): L97.412 - Non-pressure chronic ulcer of right heel and midfoot with fat layer exposed (4) Venous stasis dermatitis of both lower extremities Current visit: Yes Status: Chronic Skin changes with erythema and blisters to BLE lower legs with venous ulceration to the right lower leg consistent with venous stasis dermatitis. Plan: Keep BLE elevated. Will hold off on compression to BLE due to acute on chronic diastolic heart failure and pulmonary edema. Apply adaptic to blisters of the lower leg of BLE with kerlix gauze wrapped from toes to tibia. History of Present Illness HPI: Ms. Magallanes is a 57 year old female admitted to [facility] for sepsis. Patient has a medical history significant for HTN, morbid obesity, DM with neuropathy, HTN, GERD, Depression, REGINALD, acute renal failure. Patient went to the emergency room yesterday for concerns of swelling to BLE. Patient was admitted to [facility] two weeks ago for cellulitis of BLE, ulceration right heel and a UTI. Patient was evaluated by Podiatry at that time right heel was crosshatched and started on Santyl ointment. Wound cultures of the right leg isolated MRSA. Patient was discharged home last week with home health and patient was scheduled to follow up in Wound Care with Dr. Stoll tomorrow. Podiatry was consulted today for cellulitis and a right heel ulcer. Patient has a history of chronic ulcerations , venous stasis dermatitis, recurrent cellulitis to bilateral lower extremities. Home health reported a fever prior to admission. Patient has a dressing intact to the right foot. Patient lives at home with her and ambulates with a walker. Past Med Surg Social Fam HX - Past Medical History Medical history: CHF, diabetes, hypertension, other Additional medical history: DM Neuropathy Psychiatric history: depression - Past Surgical History Surgical History: hysterectomy, other Additional surgical history: neck surgery, - Social History Smoking Status: Never smoker Smokeless Tobacco Status: No Alcohol use: none Drug use: none - Family History Mother Adopted: No Family Member Ethnicity: Non- Living Status: Hx Family Endocrine Disorder: Yes (diabetes type 2) Father Adopted: No Family Member Ethnicity: Non- Living Status: Age at : 55 Cause of : kidney problems Hx Family Cardiac Disorders: Yes (hypertension) Hx Family Respiratory Disorders: No Hx Family Cancer: No Hx Family GI Disorders: No Hx Family Endocrine Disorder: Yes (kidney disease) Medications and Allergies Atorvastatin [Lipitor] 40 mg PO HS 01/11/16 [History] Insulin ASPART [Novolog Flexpen] 6 - 14 unit SQ TID 01/11/16 [History] Latanoprost [Xalatan] 1 drop BOTH EYES HS 01/11/16 [History] Primidone [Mysoline] 25 - 50 mg PO BID PRN 01/11/16 [History] Ascorbic Acid [Vitamin C] 500 mg PO BID 03/25/16 [History] Docusate Sodium [Colace] 200 mg PO BID 03/25/16 [History] Furosemide [Lasix] 40 mg PO BID 12/06/16 [History] Fluticasone Propionate Nasal [Flonase] 2 spray NS DAILY #1 bottle 08/28/17 [Rx] Brimonidine Tartrate/Timolol [Combigan 0.2%-0.5% Eye Drops] 1 drop OP BID [History] Diltiazem HCl [Diltiazem 12Hr ER] 120 mg PO DAILY 11/10/17 [History] Esomeprazole Magnesium [Nexium] 40 mg PO DAILY 11/10/17 [History] Gentamicin Oint [Garamycin] 1 appl TP BID 11/10/17 [History] Ketoconazole 2% CRM [Nizoral Cream] 1 appl TP DAILY 11/10/17 [History] Ketorolac Tromethamine 1 drop OP QID 11/10/17 [History] Losartan Potassium [Cozaar] 100 mg PO DAILY 11/10/17 [History] Tizanidine HCl 4 mg PO TID 11/20/17 [History] Calcium Carbonate [Tums] 1,000 mg PO Q4HR PRN tab.chew 11/24/17 [Rx] Carvedilol [Coreg] 6.25 mg PO BIDWM tablet 11/24/17 [Rx] Lactobacillus Acidophilus [Acidophilus] 1 each PO BID #10 capsule 11/24/17 [Rx] Pregabalin [Lyrica] 75 mg PO BID 30 Days #60 capsule 11/24/17 [Rx] clonazePAM [Klonopin] 0.5 mg PO BID PRN 5 Days #10 tablet 11/24/17 [Rx] Gabapentin [Neurontin] 300 mg PO HS 01/17/18 [History] Insulin Glargine,Hum.rec.anlog [Basaglar Kwikpen U-100] 40 unit SQ BID 01/17/18 [History] Potassium Chloride [K-Tab ER] 20 meq PO QID 01/17/18 [History] Fosfomycin Tromethamine [Monurol] 3 gm PO Q48H 8 Days #4 packet 01/23/18 [Rx] Nystatin POWDER [Nystop] 1 appl TP BID bottle 01/23/18 [Rx] Ferrous Sulfate 325 mg PO BID 01/30/18 [History] Loratadine [Allergy Relief] 10 mg PO DAILY 01/30/18 [History] Pantoprazole Sodium [Protonix] 40 mg PO DAILY 01/30/18 [History] Polyethylene Glycol 3350 [MiraLAX] 17 gm PO DAILY 01/30/18 [History] 3 Allergy/AdvReac Type Severity Reaction Status Date / Time lisinopril [From Zestril] Allergy Rash Verified 01/17/18 13:50 All Systems Reviewed: Fever: admits, ulcer: admits, edema: admits. Physical Exam - Constitutional Vitals: Temp Pulse Resp BP Pulse Ox 97.7 F 74 16 102/64 95 01/30/18 11:02 01/30/18 11:02 01/30/18 11:02 01/30/18 11:02 01/30/18 11:02 Exam: General appearance: alert awake oriented X 3. Calm and pleasant, no acute distress.. Vascular: Unable to palpate pedal pulses due to edema, No evidence of cyanosis, pallor or rubor, Edema graded at 2+/4, Skin temperature warm, Homans Sign negative, capillary refill time is immediate to digits.. Integument: Skin with decreased turgor, decreased subcutaneous tissue, skin thin and shiny with trophic changes associated with comorbidities as described in history. Erythema to BLE, lower leg with multiple small clear fluid filled blisters, skin is warm, no lymphangitis, clearing of erythema to bilateral ankles and knees, skin changes are consistent with venous stasis dermatitis. Callused lesion to the lateral aspect of toe #5 right foot, dried scab to the lateral aspect of toe #3 right foot, erythema to the distal aspect of toe #4 right foot. Dried scab to the medial aspect of toe #1 left foot. Scattered dried scabs to the anterior aspect of the left lower leg, Wound #1: Unstageable ulceration to the plantar aspect of right heel measuring 6 cm in length x 6 cm in width, base of wound with loose boggy eschar to the center of ulcer with yellow slough and red granulation tissue to the proximal wound edge, no pus, malodorous, light periwound erythema, no streaking, no exposed bone, no ligament or tendon. Moderate amount of serous drainage observed to dressing. Venous ulcer to anterior tibial region or right lower leg base of wound is red , no pus, no odor, no warmth, no streaking. Nails #1 through #5 of both feet are thick, elongated, and mycotic. Results - Labs Result Diagrams: 01/30/18 04:41 01/30/18 04:41 Labs: Abnormal lab results RBC 3.51 M/mcL (3.82-4.97) L 01/30/18 04:41 Hgb 8.6 g/dL (11.5-15.4) L D 01/30/18 04:41 Hct 28.4 % (35.3-44.9) L 01/30/18 04:41 MCV 80.9 fL (83.0-100.0) L 01/30/18 04:41 MCH 24.5 pg (28.0-33.3) L 01/30/18 04:41 MCHC 30.3 g/dL (31.6-35.5) L 01/30/18 04:41 RDW 18.7 % (11.5-14.5) H 01/30/18 04:41 ESR >= 130 mm/hr (0-15) H 01/29/18 17:11 PT 13.8 Seconds (9.4-12.1) H 01/29/18 17:11 Sodium 135 mEq/L (136-145) L 01/30/18 04:41 Carbon Dioxide 31 mEq/L (23-29) H 01/30/18 04:41 BUN 39 mg/dL (6-20) H 01/30/18 04:41 Est GFR (Non-Af Amer) 58 (> 60) L 01/30/18 04:41 BUN/Creatinine Ratio 40 (6-26) H 01/30/18 04:41 Glucose 170 mg/dL (70-105) H 01/30/18 04:41 Calcium 8.0 mg/dL (8.6-10.3) L 01/30/18 04:41 Magnesium 1.5 mg/dL (1.6-2.6) L 01/30/18 04:41 Direct Bilirubin 0.3 mg/dL (0.0-0.2) H 01/29/18 17:11 AST 11 Units/L (13-39) L 01/29/18 17:11 Troponin I 0.23 ng/mL (< 0.04) H* 01/30/18 10:30 C-Reactive Protein 140 mg/L (Less than 10) H 01/29/18 17:11 B-Natriuretic Peptide 357 pg/mL (Less than 100) H 01/30/18 04:41 Albumin 2.7 g/dL (3.5-5.7) L 01/29/18 17:11 Globulin 5.1 g/dL (2.4-3.5) H 01/29/18 17:11 Albumin/Globulin Ratio 0.5 (1.1-2.2) L 01/29/18 17:11 Lipase 84 Units/L (11-82) H 01/29/18 17:11 Urine Clarity Turbid (Clear) A 01/29/18 17:15 Urine Protein 100 mg/dL (Neg-Trace) H 01/29/18 17:15 Urine Glucose (UA) 500 mg/dL (Normal) H 01/29/18 17:15 Urine Blood Moderate (Negative) H 01/29/18 17:15 Ur Leukocyte Esterase Large (Negative) H 01/29/18 17:15 Urine Microscopic RBC 15-30 per hpf (0-3) H 01/29/18 17:15 Urine Microscopic WBC TNTC per hpf (0-3) H 01/29/18 17:15 Ur Squamous Epith Cells Many per lpf (None-Few) H 01/29/18 17:15 Ur Culture Indicated? NO. (NO) A 01/29/18 17:15 H & H 01/30/18 Range/Units 04:41 Hgb 8.6 L D (11.5-15.4) g/dL Hct 28.4 L (35.3-44.9) % All other labs normal. Consult Discharge Plan - Plan Referrals: Jc Tsai MD [Primary Care Provider] -
--- NOTE | 2018-01-30 13:25 | Infectious Disease Consult ---
Date of Encounter: 01/31/18 Time of Encounter: 13:23 Infectious Disease HPI - Data of Consult Requesting Physician: Skye Deleon MD Primary Care Provider: Jc Tsai MD - Consult Narrative Reason for consult: UTI, LE cellulitis, pneumonia History of present illness: Patient is a 58-year-old female who presented to the emergency department on 01/29 after mechanical fall. We are consulted for sepsis, recurrent admission, possible UTI, pneumonia, bilateral lower extremity cellulitis, chronic diabetic right foot ulcer. Patient has a known past medical history of diabetes, CHF, hypertension who presented after a witnessed fall at home. contacted EMS after he got up. Patient had a full body tremor on presentation, which is not baseline. Patient was complaining of pain all over, but states that this pain is secondary to nerve damage. Did not complain of any discrete areas of pain. Endorses nausea without abdominal pain. Denied having any fever, chills, dysuria, vomiting, headache, chest pain, or shortness of breath. 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 Upon arrival to the emergency department, patients vital signs were as follows : Temperature was 99.2, pulse was 132, respiratory rate was 20, blood pressure was 153/83, and O2 saturation was 94. Laboratory analysis was significant for an elevated white count of 14.3 with left shift. Troponin was elevated at 0.14 , ESR greater than 130, CRP of 140, urinalysis demonstrated possible UTI. Chest x-ray demonstrated increasing pulmonary edema with worsening bibasilar atelectasis. CTA of the chest demonstrated likely multifocal pneumonia. Scattered groundglass opacity. Trace right-sided pleural effusion. CT of the lower extremity demonstrated redemonstration of extensive subcutaneous edema, skin thickening of the bilateral lower extremities similar to previous. Possible chronic venous stasis/cellulitis. Right foot ulceration, plantar aspect. Re-demonstration of remote fracture of left fifth metatarsal base. Patient follows podiatry with Dr. Stoll; states that these diabetic ulcers have been worsening. Patient was treated with broad-spectrum antibiotics and IV fluid resuscitation in the emergency department. Patient is currently day 2 of Levaquin, vancomycin, and Zosyn. Of note, patient was recently hospitalized, and during stay, patient adamantly refused going to a correction facility and requested home. She was discharged home to complete a course of doxycycline fosfomycin until 01/30 for UTI with ESBL Klebsiella. Patient was seen and examined at bedside; patient states she is not feeling well. Endorses some nausea, malaise, and shortness of breath. Patient has a new rash on her right upper extremity, which she says has been present for the last few days. Denies having any pain or itching in the area. Reports that she did complete her entire course of antibiotics after she was discharged on the third. Denies having any pain in her lower extremity. Both lower extremity is are currently wrapped; appeared very erythematous. Denies fever, chills, or chest pain. CC: Skye Deleon MD Past Med Surg Social Fam HX - Past Medical History Medical history: CHF, diabetes, hypertension, other Additional medical history: DM Neuropathy Psychiatric history: depression - Past Surgical History Surgical History: hysterectomy, other Additional surgical history: neck surgery, - Social History Smoking Status: Never smoker Smokeless Tobacco Status: No Alcohol use: none Drug use: none - Family History Mother Adopted: No Family Member Ethnicity: Non- Living Status: Hx Family Endocrine Disorder: Yes (diabetes type 2) Father Adopted: No Family Member Ethnicity: Non- Living Status: Age at : 55 Cause of : kidney problems Hx Family Cardiac Disorders: Yes (hypertension) Hx Family Respiratory Disorders: No Hx Family Cancer: No Hx Family GI Disorders: No Hx Family Endocrine Disorder: Yes (kidney disease) Infectious Disease-CN:Meds Atorvastatin [Lipitor] 40 mg PO HS 01/11/16 [History] Insulin ASPART [Novolog Flexpen] 6 - 14 unit SQ TID 01/11/16 [History] Latanoprost [Xalatan] 1 drop BOTH EYES HS 01/11/16 [History] Primidone [Mysoline] 25 - 50 mg PO BID PRN 01/11/16 [History] Ascorbic Acid [Vitamin C] 500 mg PO BID 03/25/16 [History] Docusate Sodium [Colace] 200 mg PO BID 03/25/16 [History] Furosemide [Lasix] 40 mg PO BID 12/06/16 [History] Fluticasone Propionate Nasal [Flonase] 2 spray NS DAILY #1 bottle 08/28/17 [Rx] Brimonidine Tartrate/Timolol [Combigan 0.2%-0.5% Eye Drops] 1 drop OP BID [History] Diltiazem HCl [Diltiazem 12Hr ER] 120 mg PO DAILY 11/10/17 [History] Esomeprazole Magnesium [Nexium] 40 mg PO DAILY 11/10/17 [History] Gentamicin Oint [Garamycin] 1 appl TP BID 11/10/17 [History] Ketoconazole 2% CRM [Nizoral Cream] 1 appl TP DAILY 11/10/17 [History] Ketorolac Tromethamine 1 drop OP QID 11/10/17 [History] Losartan Potassium [Cozaar] 100 mg PO DAILY 11/10/17 [History] Tizanidine HCl 4 mg PO TID 11/20/17 [History] Calcium Carbonate [Tums] 1,000 mg PO Q4HR PRN tab.chew 11/24/17 [Rx] Carvedilol [Coreg] 6.25 mg PO BIDWM tablet 11/24/17 [Rx] Lactobacillus Acidophilus [Acidophilus] 1 each PO BID #10 capsule 11/24/17 [Rx] Pregabalin [Lyrica] 75 mg PO BID 30 Days #60 capsule 11/24/17 [Rx] clonazePAM [Klonopin] 0.5 mg PO BID PRN 5 Days #10 tablet 11/24/17 [Rx] Gabapentin [Neurontin] 300 mg PO HS 01/17/18 [History] Insulin Glargine,Hum.rec.anlog [Basaglar Kwikpen U-100] 40 unit SQ BID 01/17/18 [History] Potassium Chloride [K-Tab ER] 20 meq PO QID 01/17/18 [History] Fosfomycin Tromethamine [Monurol] 3 gm PO Q48H 8 Days #4 packet 01/23/18 [Rx] Nystatin POWDER [Nystop] 1 appl TP BID bottle 01/23/18 [Rx] Ferrous Sulfate 325 mg PO BID 01/30/18 [History] Loratadine [Allergy Relief] 10 mg PO DAILY 01/30/18 [History] Pantoprazole Sodium [Protonix] 40 mg PO DAILY 01/30/18 [History] Polyethylene Glycol 3350 [MiraLAX] 17 gm PO DAILY 01/30/18 [History] 3 Allergy/AdvReac Type Severity Reaction Status Date / Time lisinopril [From Zestril] Allergy Rash Verified 01/17/18 13:50 Review of systems: 10 point review of systems done, negative other for what is mentioned in the history of present illness - Constitutional Constitutional: Present: fatigue, malaise. Absent: chills - Cardiovascular Cardiovascular: Absent: rapid heart rate, slow heart rate - Gastrointestinal Gastrointestinal: Absent: nausea, vomiting - Integumentary Integumentary: Present: rash (Patient has a new rash on her right upper extremity) Exam - Constitutional Vitals: Temp Pulse Resp BP Pulse Ox 97.7 F 74 16 102/64 95 01/30/18 11:02 01/30/18 11:02 01/30/18 11:02 01/30/18 11:02 01/30/18 11:02 - Head Head exam: Present: atraumatic, normal inspection - Eye Eye exam: Present: EOMI, PERRL, sclera anicteric - ENT ENT exam: Present: mucous membranes dry Additional comments: No oral thrush - Neck Neck exam: Present: full ROM, normal inspection - Respiratory Respiratory exam: Present: decreased breath sounds, rales. Absent: CTAB, wheezes, tachypnea - Cardiovascular Cardiovascular exam: Present: +S1, +S2. Absent: bradycardia, tachycardia - GI/Abdominal GI/Abdominal exam: Absent: tenderness - Extremities Exam Additional comments: Bilateral lower extremities are currently wrapped; appeared very erythematous and the surrounding region. Patient has a red rash on the dorsal aspect of her hand and forearm extending up to the elbow; maculopapular in nature - Back Exam Additional comments: Skin excoriations from poor hygiene. Stage I decubitus ulcer. - Neurological Exam Neurological exam: Present: alert, oriented X3 Additional comments: Answers questions and follows command. - Psychiatric Psychiatric exam: Present: normal affect, normal mood - Skin Skin exam: Present: dry Infectious Disease CN: Results - Labs CBC & Chem 7: 02/01/18 04:43 02/01/18 04:43 Serology: Serology 01/30/18 01/30/18 01/30/18 Range/Units 11:49 10:33 10:30 WBC (4.3-11.1) K/mcL RBC (3.82-4.97) M/mcL Hgb (11.5-15.4) g/dL Hct (35.3-44.9) % MCV (83.0-100.0) fL MCH (28.0-33.3) pg MCHC (31.6-35.5) g/dL RDW (11.5-14.5) % Plt Count (140-400) K/mcL MPV (9.4-12.4) fL Immature Gran % (0-4) % Seg Neutrophils % % Lymphocytes % % Monocytes % % Eosinophils % % Basophils % % Neutrophils # (1.6-8.9) K/mcL Lymphocytes # (0.6-4.6) K/mcL Monocytes # (0.0-1.3) K/mcL Eosinophils # (0.0-0.6) K/mcL Basophils # (0.0-0.2) K/mcL Sodium (136-145) mEq/L Potassium (3.5-5.1) mEq/L Chloride (98-107) mEq/L Carbon Dioxide (23-29) mEq/L BUN (6-20) mg/dL Creatinine (0.60-1.20) mg/dL Est GFR ( Amer) (> 60) Est GFR (Non-Af Amer) (> 60) BUN/Creatinine Ratio (6-26) Glucose (70-105) mg/dL POC Glucose 89 98 (70-99) mg/dL Calculated Osmolality (280-300) Calcium (8.6-10.3) mg/dL Phosphorus (2.7-4.5) mg/dL Magnesium (1.6-2.6) mg/dL Troponin I 0.23 H* (< 0.04) ng/mL B-Natriuretic Peptide (Less than 100) pg/mL 01/30/18 01/30/18 01/30/18 Range/Units 09:16 07:00 04:51 WBC (4.3-11.1) K/mcL RBC (3.82-4.97) M/mcL Hgb (11.5-15.4) g/dL Hct (35.3-44.9) % MCV (83.0-100.0) fL MCH (28.0-33.3) pg MCHC (31.6-35.5) g/dL RDW (11.5-14.5) % Plt Count (140-400) K/mcL MPV (9.4-12.4) fL Immature Gran % (0-4) % Seg Neutrophils % % Lymphocytes % % Monocytes % % Eosinophils % % Basophils % % Neutrophils # (1.6-8.9) K/mcL Lymphocytes # (0.6-4.6) K/mcL Monocytes # (0.0-1.3) K/mcL Eosinophils # (0.0-0.6) K/mcL Basophils # (0.0-0.2) K/mcL Sodium (136-145) mEq/L Potassium (3.5-5.1) mEq/L Chloride (98-107) mEq/L Carbon Dioxide (23-29) mEq/L BUN (6-20) mg/dL Creatinine (0.60-1.20) mg/dL Est GFR ( Amer) (> 60) Est GFR (Non-Af Amer) (> 60) BUN/Creatinine Ratio (6-26) Glucose (70-105) mg/dL POC Glucose 68 L 98 169 H (70-99) mg/dL Calculated Osmolality (280-300) Calcium (8.6-10.3) mg/dL Phosphorus (2.7-4.5) mg/dL Magnesium (1.6-2.6) mg/dL Troponin I (< 0.04) ng/mL B-Natriuretic Peptide (Less than 100) pg/mL 01/30/18 01/30/18 01/30/18 Range/Units 04:41 04:41 04:41 WBC (4.3-11.1) K/mcL RBC (3.82-4.97) M/mcL Hgb (11.5-15.4) g/dL Hct (35.3-44.9) % MCV (83.0-100.0) fL MCH (28.0-33.3) pg MCHC (31.6-35.5) g/dL RDW (11.5-14.5) % Plt Count (140-400) K/mcL MPV (9.4-12.4) fL Immature Gran % (0-4) % Seg Neutrophils % % Lymphocytes % % Monocytes % % Eosinophils % % Basophils % % Neutrophils # (1.6-8.9) K/mcL Lymphocytes # (0.6-4.6) K/mcL Monocytes # (0.0-1.3) K/mcL Eosinophils # (0.0-0.6) K/mcL Basophils # (0.0-0.2) K/mcL Sodium 135 L (136-145) mEq/L Potassium 4.3 (3.5-5.1) mEq/L Chloride 99 (98-107) mEq/L Carbon Dioxide 31 H (23-29) mEq/L BUN 39 H (6-20) mg/dL Creatinine 0.98 (0.60-1.20) mg/dL Est GFR ( Amer) > 60 (> 60) Est GFR (Non-Af Amer) 58 L (> 60) BUN/Creatinine Ratio 40 H (6-26) Glucose 170 H (70-105) mg/dL POC Glucose (70-99) mg/dL Calculated Osmolality 293 (280-300) Calcium 8.0 L (8.6-10.3) mg/dL Phosphorus 3.5 (2.7-4.5) mg/dL Magnesium 1.5 L (1.6-2.6) mg/dL Troponin I 0.18 H* (< 0.04) ng/mL B-Natriuretic Peptide 357 H (Less than 100) pg/mL 01/30/18 01/30/18 01/29/18 Range/Units 04:41 00:25 23:07 WBC 7.5 (4.3-11.1) K/mcL RBC 3.51 L (3.82-4.97) M/mcL Hgb 8.6 L D (11.5-15.4) g/dL Hct 28.4 L (35.3-44.9) % MCV 80.9 L (83.0-100.0) fL MCH 24.5 L (28.0-33.3) pg MCHC 30.3 L (31.6-35.5) g/dL RDW 18.7 H (11.5-14.5) % Plt Count 166 (140-400) K/mcL MPV 11.9 (9.4-12.4) fL Immature Gran % 0.7 (0-4) % Seg Neutrophils % 69.3 % Lymphocytes % 22.1 % Monocytes % 6.5 % Eosinophils % 0.9 % Basophils % 0.5 % Neutrophils # 5.2 (1.6-8.9) K/mcL Lymphocytes # 1.7 (0.6-4.6) K/mcL Monocytes # 0.5 (0.0-1.3) K/mcL Eosinophils # 0.1 (0.0-0.6) K/mcL Basophils # 0.0 (0.0-0.2) K/mcL Sodium (136-145) mEq/L Potassium (3.5-5.1) mEq/L Chloride (98-107) mEq/L Carbon Dioxide (23-29) mEq/L BUN (6-20) mg/dL Creatinine (0.60-1.20) mg/dL Est GFR ( Amer) (> 60) Est GFR (Non-Af Amer) (> 60) BUN/Creatinine Ratio (6-26) Glucose (70-105) mg/dL POC Glucose 228 H 243 H (70-99) mg/dL Calculated Osmolality (280-300) Calcium (8.6-10.3) mg/dL Phosphorus (2.7-4.5) mg/dL Magnesium (1.6-2.6) mg/dL Troponin I (< 0.04) ng/mL B-Natriuretic Peptide (Less than 100) pg/mL 01/29/18 Range/Units 23:00 WBC (4.3-11.1) K/mcL RBC (3.82-4.97) M/mcL Hgb (11.5-15.4) g/dL Hct (35.3-44.9) % MCV (83.0-100.0) fL MCH (28.0-33.3) pg MCHC (31.6-35.5) g/dL RDW (11.5-14.5) % Plt Count (140-400) K/mcL MPV (9.4-12.4) fL Immature Gran % (0-4) % Seg Neutrophils % % Lymphocytes % % Monocytes % % Eosinophils % % Basophils % % Neutrophils # (1.6-8.9) K/mcL Lymphocytes # (0.6-4.6) K/mcL Monocytes # (0.0-1.3) K/mcL Eosinophils # (0.0-0.6) K/mcL Basophils # (0.0-0.2) K/mcL Sodium (136-145) mEq/L Potassium (3.5-5.1) mEq/L Chloride (98-107) mEq/L Carbon Dioxide (23-29) mEq/L BUN (6-20) mg/dL Creatinine (0.60-1.20) mg/dL Est GFR ( Amer) (> 60) Est GFR (Non-Af Amer) (> 60) BUN/Creatinine Ratio (6-26) Glucose (70-105) mg/dL POC Glucose (70-99) mg/dL Calculated Osmolality (280-300) Calcium (8.6-10.3) mg/dL Phosphorus (2.7-4.5) mg/dL Magnesium 1.1 L (1.6-2.6) mg/dL Troponin I 0.14 H* (< 0.04) ng/mL B-Natriuretic Peptide (Less than 100) pg/mL Consult Discharge Plan - Plan Referrals: Jc Tsai MD [Primary Care Provider] - - Attending Attestation I examined this patient and my medical decision-making was reviewed with the Resident Physician. I agree with the documented findings, disposition and treatment plan as described except to the extent set forth below. This is an addendum to original report dictated by resident physician. Please refer to resident's note for full detail. Patient is a 58-year-old woman with extensive past medical history mentioned below was recently admitted to [facility] in early on 01/17 - 01/23/18 for sepsis, bilateral lower extremity cellulitis and urinary tract infection. The UTI was secondary to Klebsiella pneumonia ESBL. The bilateral lower extremity cellulitis at the time we evaluated the patient looked more like chronic venous stasis. And had a decubitus ulcer stage III at that time. She also had diabetic foot ulcer which is being followed by Dr. Stoll. At that time we had a discussion me and Dr. Stoll and he tells me that he felt all of the wound infection on the foot was a superficial infection and no obvious signs of deep infection. Patient also well known to have diabetes mellitus type 2 that is poorly controlled, morbid obesity and hypertension. Wound culture at that time grew MRSA. And urine culture grew Klebsiella pneumonia ESBL. An x-ray done on 01/18 revealed no radiographic evidence of osteomyelitis. We decided to discharge the patient on doxycycline and fosfomycin. Patient insisted on going home. Patient apparently was having more swelling and she was unable to get up and as she was tried to get up she had a fall also her called EMS and she was brought into the hospital. Since arrival patient met sepsis criteria with tachycardia and had leukocytosis at 14.3 with 85% neutrophils no bands. ESR was elevated over 130. Patient also had a mild troponin leak with normal kidney function. CT of the lower extremity on the left reveals 1. Re- demonstration of extensive subcutaneous edema skin thickening of the bilateral lower extremities similar to previous exam. Findings may reflect chronic venous stasis/lymph edema versus cellulitis. Recommend clinical correlation. No organized drainable fluid collection identified. 2. Ulceration identified along the plantar aspect of the right foot at the level of the calcaneus which is new compared with previous exam. 3. Re- demonstration of remote fracture of the left 5th metatarsal base with no evidence for osseous bridging or callus formation. CT chest reveals multifocal airspace consolidation throughout both lungs most likely reflects multifocal pneumonia with scattered groundglass opacity likely reflecting either the continuing of multifocal pneumonia or additional superimposed asymmetric edema. Respiratory infectious panel and urine legionella and pneumococcal antigen were all negative. We were asked to evaluate and make recommendations on this patient. 1) Sepsis Status: Resolved Assessment and plan: Met 3/4 SIRS criteria, with leukocytosis, tachycardia, tachypnea - Known source of infection with multifocal pneumonia, UTI, and cellulitis - Home health nurse reported a fever of 102 before admission - Patient was given IV fluid resuscitation in the emergency department - Blood cultures are ordered and are currently pending - Currently on IV vancomycin, Zosyn, and Levaquin Qualifiers: Qualified Code(s): A41.9 - Sepsis, unspecified organism (2) UTI (urinary tract infection) Status: Acute Assessment and plan: Patient was recently discharged from hospital on 01/23; during hospitalization, patient was discharged home to complete a course of doxycycline fosfomycin until 01/30 for UTI with ESBL Klebsiella - Urinalysis demonstrates large amount of leukocyte esterase, white blood cells too numerous to count - Urine culture is currently pending - Continue IV antibiotics as above Qualifiers: Qualified Code(s): N39.0 - Urinary tract infection, site not specified (3) HAP (hospital-acquired pneumonia) Status: Acute Assessment and plan: - Patient was recently discharged on 01/23 - On arrival, SPO2 was 84% on room air; heart rate in the 130s - Chest x-ray demonstrated increasing pulmonary edema with worsening basilar atelectasis - CTA demonstrated multifocal airspace consolidation throughout both lungs; most likely reflective of multifocal pneumonia. - Continue bronchodilators and incentive spirometry - IV antibiotics as above - Will order Resp. infection panel, sputum cx, legionella and strep antigen (4) Ulcer of right heel Status: Chronic Assessment and plan: - Patient has necrotic right heel ulcer and bilateral lower extremity cellulitis - Normally sees valve inserter Dr. Stoll - CT scan of the legs was negative for osteomyelitis; did not demonstrate extensive subcutaneous edema - Podiatry was consulted - Anticipate surgical debridement by: Patient is currently nothing by mouth Qualifiers: Qualified Code(s): L97.412 - Non-pressure chronic ulcer of right heel and midfoot with fat layer exposed (5) Venous stasis dermatitis of both lower extremities Status: Chronic Assessment and plan: - CT of the legs demonstrated extensive subcutaneous edema skin thickening of the bilateral lower extremities - Findings are likely reflective of chronic venous stasis/lymphedema versus cellulitis - No organized drainable fluid collection has been identified - Continue wound care (6) Diastolic heart failure Status: Acute Assessment and plan: - Acute on chronic diastolic CHF exacerbation - Presented with shortness of breath, pedal edema, rales on exam, and tachycardia with heart rate in the 130s - BNP today is 357, up from 66 yesterday - CXR revealed increasing pulmonary edema with worsening bibasilar atelectasis. 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 - Follow-up the outpatient setting
--- NOTE | 2018-01-30 14:45 | Cardiology Consult Note ---
<Eileen Caban Jose M - Last Filed: 01/30/18 14:59> Date of Encounter: 01/30/18 Time of Encounter: 13:00 Assessment and Plan (1) Sepsis Current Visit: Yes Status: Acute Per cardiology: -ADmitted with sepsis. -Known chronic wound with MRSA infection. -ON ATB. -Management per primary service. Qualifiers: Sepsis type: sepsis due to unspecified organism Qualified Code(s): A41.9 - Sepsis, unspecified organism (2) Acute on chronic diastolic heart failure Current Visit: No Status: Acute Per cardiology: -Admitted with sepsis and was given IV fluids. -Xray and CT with pulmonary edema. -Net positive fluid balance. -TTE 11/2016 with LVEF 60%, mild concentric LVH, moderate diastolic dysfunction, no segmental wall motion abnormalities noted. -TTE pending. -Strict i/os, fluid restriction, daily weights. -Consider addition of lasix. (3) Elevated troponin Current Visit: Yes Status: Acute Per cardiology: -Troponins 0.04, 0.14, 0.18, 0.23 in the setting of sepsis, CHF. -Denies chest pain. -NO acute ischemic ECG changes. -TTE pending. -ON asa, statin, BB. Was given therpeutic lovenox. -At this time, DO not suspect NSTEMI, suspect demand ischemia related to above. NO cardiac rehab consult warranted. -Consider heparin drip. -COntinue to trend troponins. -Further recommendations pending TTE. Discussion w patient/family: The assessment and plan as outlined above was discussed with the patient who expressed understanding and agreement. All questions were answered. Thank you for involving us in the care of your patient. Please call with any questions. Discussed and reviewed with . History of Present Illness Consult date: 01/30/18 Requesting physician: Skye Deleon Consult reason: elevated troponin Chief complaint: fever History of present illness: Ms. Magallanes is a 58 year old female with a relevant past medical history of HTN, DM , HTN, GERD, depression, REGINALD, chronic lower extremity wound, MRSA in wound who presented to 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 Cardiology consulted for elevated troponin. Patient denies chest pain. Denies icnreased shortness of breath or increased fatigue. Past Med Surg Social Fam HX - Past Medical History Attestation: Yes The following information was validated with the patient. Source: patient, old records reviewed Medical history: CHF, diabetes, hypertension, other Additional medical history: DM Neuropathy Psychiatric history: depression - Past Surgical History Surgical History: hysterectomy, other Additional surgical history: neck surgery, - Social History Smoking Status: Never smoker Smokeless Tobacco Status: No Alcohol use: none Drug use: none - Family History Mother Adopted: No Family Member Ethnicity: Non- Living Status: Hx Family Endocrine Disorder: Yes (diabetes type 2) Father Adopted: No Family Member Ethnicity: Non- Living Status: Age at : 55 Cause of : kidney problems Hx Family Cardiac Disorders: Yes (hypertension) Hx Family Respiratory Disorders: No Hx Family Cancer: No Hx Family GI Disorders: No Hx Family Endocrine Disorder: Yes (kidney disease) Medications and Allergies Atorvastatin [Lipitor] 40 mg PO HS 01/11/16 [History] Insulin ASPART [Novolog Flexpen] 6 - 14 unit SQ TID 01/11/16 [History] Latanoprost [Xalatan] 1 drop BOTH EYES HS 01/11/16 [History] Primidone [Mysoline] 25 - 50 mg PO BID PRN 01/11/16 [History] Ascorbic Acid [Vitamin C] 500 mg PO BID 03/25/16 [History] Docusate Sodium [Colace] 200 mg PO BID 03/25/16 [History] Furosemide [Lasix] 40 mg PO BID 12/06/16 [History] Fluticasone Propionate Nasal [Flonase] 2 spray NS DAILY #1 bottle 08/28/17 [Rx] Brimonidine Tartrate/Timolol [Combigan 0.2%-0.5% Eye Drops] 1 drop OP BID [History] Diltiazem HCl [Diltiazem 12Hr ER] 120 mg PO DAILY 11/10/17 [History] Esomeprazole Magnesium [Nexium] 40 mg PO DAILY 11/10/17 [History] Gentamicin Oint [Garamycin] 1 appl TP BID 11/10/17 [History] Ketoconazole 2% CRM [Nizoral Cream] 1 appl TP DAILY 11/10/17 [History] Ketorolac Tromethamine 1 drop OP QID 11/10/17 [History] Losartan Potassium [Cozaar] 100 mg PO DAILY 11/10/17 [History] Tizanidine HCl 4 mg PO TID 11/20/17 [History] Calcium Carbonate [Tums] 1,000 mg PO Q4HR PRN tab.chew 11/24/17 [Rx] Carvedilol [Coreg] 6.25 mg PO BIDWM tablet 11/24/17 [Rx] Lactobacillus Acidophilus [Acidophilus] 1 each PO BID #10 capsule 11/24/17 [Rx] Pregabalin [Lyrica] 75 mg PO BID 30 Days #60 capsule 11/24/17 [Rx] clonazePAM [Klonopin] 0.5 mg PO BID PRN 5 Days #10 tablet 11/24/17 [Rx] Gabapentin [Neurontin] 300 mg PO HS 01/17/18 [History] Insulin Glargine,Hum.rec.anlog [Basaglar Kwikpen U-100] 40 unit SQ BID 01/17/18 [History] Potassium Chloride [K-Tab ER] 20 meq PO QID 01/17/18 [History] Fosfomycin Tromethamine [Monurol] 3 gm PO Q48H 8 Days #4 packet 01/23/18 [Rx] Nystatin POWDER [Nystop] 1 appl TP BID bottle 01/23/18 [Rx] Ferrous Sulfate 325 mg PO BID 01/30/18 [History] Loratadine [Allergy Relief] 10 mg PO DAILY 01/30/18 [History] Pantoprazole Sodium [Protonix] 40 mg PO DAILY 01/30/18 [History] Polyethylene Glycol 3350 [MiraLAX] 17 gm PO DAILY 01/30/18 [History] 3 Allergy/AdvReac Type Severity Reaction Status Date / Time lisinopril [From Zestril] Allergy Rash Verified 01/17/18 13:50 All Systems Review: The remainder of the systems were reviewed and are negative - Constitutional Constitutional: fever(s) - Cardiovascular Cardiovascular: as per HPI Physical Examination Vital Signs, Last 4 Hours Temp Pulse Resp BP Pulse Ox 01/30/18 11:02 97.7 F 74 16 102/64 95 General: Conversant, No Apparent Distress HEENT: Atraumatic, Normocephaly, Mucus Membranes Moist Neck: No JVD, Normal carotid pulses Cardiac: Reg Rate and Rhythm, Normal S1 and S2, No Murmur Lungs: Normal Breath Sounds, No Wheeze, Rales, Rhonchi Neuro: Alert and responsive, No focal deficits noted Abdomen: Soft, Non-Tender Skin: No rashes noted on visualized skin Musculoskeletal: No Chest Wall Tenderness Extremities: No Clubbing, No Cyanosis Results 01/30/18 04:41 01/30/18 04:41 Lab Results Impressions Chest X-Ray 01/29/18 16:56 IMPRESSION: 1. Increasing pulmonary edema with worsening bibasilar atelectasis. D/ / Hair Sands MD / Hair Sands MD Interpreting Provider: Hair Sands MD Lower Extremity CT 01/29/18 16:56 IMPRESSION: 1. Re- demonstration of extensive subcutaneous edema skin thickening of the bilateral lower extremities similar to previous exam. Findings may reflect chronic venous stasis/lymph edema versus cellulitis. Recommend clinical correlation. No organized drainable fluid collection identified. 2. Ulceration identified along the plantar aspect of the right foot at the level of the calcaneus which is new compared with previous exam. 3. Re- demonstration of remote fracture of the left 5th metatarsal base with no evidence for osseous bridging or callus formation. D/ / Iftikhar Ann MD / Iftikhar Ann MD Interpreting Provider: Iftikhar Ann MD Lower Extremity CT 01/29/18 16:56 IMPRESSION: 1. Re- demonstration of extensive subcutaneous edema skin thickening of the bilateral lower extremities similar to previous exam. Findings may reflect chronic venous stasis/lymph edema versus cellulitis. Recommend clinical correlation. No organized drainable fluid collection identified. 2. Ulceration identified along the plantar aspect of the right foot at the level of the calcaneus which is new compared with previous exam. 3. Re- demonstration of remote fracture of the left 5th metatarsal base with no evidence for osseous bridging or callus formation. D/ / Iftikhar Ann MD / Iftikhar Ann MD Interpreting Provider: Iftikhar Ann MD Chest CTA 01/29/18 18:03 IMPRESSION: 1. Study limited by patient motion artifact and the left arm overlying the chest, causing streak artifact through the pulmonary arteries. However, there is no gross CT evidence of a pulmonary embolism. 2. No acute abnormality of the thoracic aorta. 3. Multifocal airspace consolidation throughout both lungs most likely reflects multifocal pneumonia. Additional scattered ground-glass opacity likely reflects either the continuum of multifocal pneumonia or additional superimposed asymmetric edema. Suggest appropriate clinical treatment, and short-term chest CT follow-up in 6-8 weeks to ensure resolution of the multifocal airspace opacities. 4. Trace right pleural effusion. 5. Stable 2.4 cm low-attenuation nodule within the left thyroid lobe. Unless this has already been clinically worked up, further follow-up of this nodule is as advised below. RECOMMENDATIONS: Managing Incidental Thyroid Nodule Detected at CT or MRI or US Further evaluation by thyroid Ultrasound recommended for these incidental nodules: Patient Age 18 years or less - Nodule of any size Patient Age 19-34 years old - Nodule 1 cm in size or greater PATIENT AGE 35 YEARS OR MORE - NODULE 1.5 CM IN SIZE OR GREATER Note: These recommendations do not apply to pts. w/ increased risk for thyroid cancer or pts. with symptomatic thyroid disease. Recommendations for f/u of Incidental Thyroid Nodules (ITN) found on CT, MR, NM and Extrathyroidal US are based upon the ACR white paper and Hoang 3-tiered system for managing ITNs: J Am Carrie Radiol. 2015 Aug;12(2): 143-50 D/ / 01/29/2018 19:36:39 Michi Reed MD / [email or web address] Interpreting Provider: Michi Reed MD Active Medications Acetaminophen (Tylenol) 650 mg PO Q6HR PRN PRN Reason: Mild Pain/Fever Stop: 07/31/18 20:56 Aspirin (Aspirin) 81 mg PO DAILY [facility] Stop: 08/01/18 09:01 Last Admin: 01/30/18 12:38 Dose: 81 mg Atorvastatin Calcium (Lipitor) 40 mg PO HS [facility] Stop: 08/01/18 21:01 Carvedilol (Coreg) 6.25 mg PO BIDWM DONNA PRN Reason: Protocol Stop: 08/01/18 17:01 Clonazepam (Klonopin) 0.5 mg PO BID PRN PRN Reason: Anxiety Stop: 08/01/18 12:12 Dextrose/Water (Dextrose 50% (Syg)) 25 ml IVP AD PRN PRN Reason: Hypoglycemia Stop: 07/31/18 21:01 Last Admin: 01/30/18 09:27 Dose: 25 ml Diltiazem HCl (Cardizem Cd) 120 mg PO DAILY [facility] Stop: 08/02/18 09:01 Doxycycline Hyclate (Doxycycline) 100 mg PO BID [facility] Stop: 08/01/18 21:01 Gabapentin (Neurontin) 300 mg PO HS [facility] Stop: 08/01/18 21:01 Glucagon (Glucagen) 1 mg IM ONCE PRN PRN Reason: Hypoglycemia Stop: 07/31/18 21:01 Glucose (Gluctose) 15 gm PO ONCE PRN PRN Reason: Hypoglycemia Stop: 07/31/18 21:01 Glucose (Gluctose) 30 gm PO ONCE PRN PRN Reason: Hypoglycemia Stop: 07/31/18 21:01 Guaifenesin (Mucinex) 1,200 mg PO BID [facility] Stop: 08/01/18 09:01 Last Admin: 01/30/18 12:37 Dose: 1,200 mg Heparin Sodium (Porcine) (Heparin) 5,000 unit SQ Q8HCO DONNA Stop: 07/31/18 22:01 Last Admin: 01/30/18 13:39 Dose: Not Given Dextrose (Dextrose 5%) 1,000 mls @ 100 mls/hr IVC .Q10H PRN PRN Reason: HYPOGLYCEMIA Stop: 07/31/18 21:01 Last Admin: 01/30/18 09:32 Dose: 100 mls/hr Piperacillin Sod/Tazobactam (Sod 3.375 gm/ Sodium Chloride) 100 mls @ 25 mls/ hr IVPB Q8HR [facility] Stop: 08/01/18 00:01 Last Admin: 01/30/18 09:35 Dose: 25 mls/hr Vancomycin HCl 1,500 mg/ (Sodium Chloride) 250 mls @ 166.67 mls/hr IVPB Q12H [facility] Stop: 08/01/18 08:01 Last Admin: 01/30/18 12:39 Dose: 166.67 mls/hr Insulin Detemir (Levemir) 20 unit 0.15 unit/kg (20 unit) SQ HS [facility] Stop: 07/31/18 21:01 Last Admin: 01/29/18 23:57 Dose: 20 unit Insulin Human Lispro (Humalog) 0 units SQ ACHS DONNA PRN Reason: Protocol Stop: 08/01/18 12:01 Last Admin: 01/30/18 13:03 Dose: Not Given Ipratropium [place] (Atrovent Inhaler) 1 puff IH [id number] [facility] Stop: 07/31/18 22:01 Last Admin: 01/30/18 10:30 Dose: 1 puff Lactobacillus Acidophilus/Rhamnosus (Culturelle) 1 each PO BID [facility] Stop: 08/01/18 21:01 Latanoprost (Xalatan) 1 drop BOTH EYES [facility] PRN Reason: Protocol Stop: 08/01/18 21:01 Levalbuterol HCl (Xopenex) 0.63 mg IH [id number] [facility] Stop: 07/31/18 22:01 Last Admin: 01/30/18 10:29 Dose: 0.63 mg Naloxone HCl (Narcan) 0.4 mg IVP Q2MIN PRN PRN Reason: SEE COMMENTS Stop: 07/31/18 20:56 Non-Formulary Medication (Fosfomycin Tromethamine) 3 gm PO Q48H [facility] Stop: 08/01/18 12:16 Potassium Chloride (Potassium Chloride) 20 meq PO QID [facility] Stop: 08/01/18 13:01 Pregabalin (Lyrica) 75 mg PO BID [facility] Stop: 08/01/18 21:01 Primidone (Mysoline) 25 mg PO BID PRN PRN Reason: TREMOR Stop: 08/01/18 12:12 Sodium Polystyrene Sulfonate (Kayexalate) 15 gm PO ONCE ONE Stop: 01/30/18 23:46 Thiamine HCl (Vitamin B-1) 200 mg PO DAILY [facility] Stop: 08/01/18 09:01 Last Admin: 01/30/18 12:37 Dose: 200 mg Tizanidine HCl (Zanaflex) 4 mg PO TID DONNA Stop: 08/01/18 15:01 Laboratory Tests 01/29/18 01/29/18 01/29/18 17:11 17:11 17:11 WBC 14.3 H D Hgb 10.2 L Creatinine Troponin I 0.04 H* B-Natriuretic Peptide 66 01/29/18 01/30/18 01/30/18 23:00 04:41 04:41 WBC 7.5 Hgb 8.6 L D Creatinine 0.98 Troponin I 0.14 H* 0.18 H* B-Natriuretic Peptide 01/30/18 01/30/18 04:41 10:30 WBC Hgb Creatinine Troponin I 0.23 H* B-Natriuretic Peptide 357 H - Imaging and Cardiology Chest Xray: report reviewed Echo: pending, report reviewed - EKG Interpretation EKG results cardiology: personally reviewed (ECG with ST, HR 114.), other ( Telemetry reviewed with average HR previous 12 hours noted to be 107, ST. PVCs and PACs noted.) Consult Discharge Plan - Plan Referrals: Jc Tsai MD [Primary Care Provider] - <CecilVeronica lockhart - Last Filed: 01/31/18 16:09> Date of Encounter: 01/31/18 - Attending Attestation I have personally performed a face to face evaluation on this patient. I have reviewed and agree with the care plan. History and Exam by me shows: Mild elevation in troponins likely demand ischemia Sepsis likely culprit with bronchopneumonia Patient denies any hx of chest pain or CLAUDIO Preserved EF Consider Stress test when stable Assessment and Plan Discussion w patient/family: The assessment and plan as outlined above was discussed with the patient and/or family members who expressed understanding and agreement. All questions were answered. Thank you for involving us in the care of your patient. Please call with any questions. History of Present Illness History of present illness: Ms. Magallanes is a 58 year old female All Systems Review: The remainder of the systems were reviewed and are negative Physical Examination Vital Signs, Last 4 Hours Temp Pulse Resp BP Pulse Ox 01/31/18 15:16 97.6 F 82 15 113/62 92 Results 01/31/18 05:50 01/31/18 05:50 Lab Results 01/31/18 01/31/18 05:50 05:50 WBC 7.7 Hgb 8.1 L Hct 27.4 L Plt Count 184 Sodium 139 Potassium 4.8 Chloride 101 Carbon Dioxide 32 H BUN 30 H Creatinine 1.09 Glucose 116 H Calcium 8.2 L
[2018-01-30] MEDS: tiZANidine 4 MG TABLET PO SCH ×2 (15:11→22:29)
--- NOTE | 2018-01-30 18:19 | Internal Med Progress Note ---
Date of Encounter: 01/30/18 Time of Encounter: 10:45 - Assessment and plan (1) Sepsis Current Visit: Yes Status: Acute Assessment and plan: Presented with leukocytosis and tachycardia, possible pneumonia, bilateral leg cellulitis, UTI, right foot ulcer. Follow up cultures and continue IV antibiotics, further plan as below. Qualifiers: Sepsis type: sepsis due to unspecified organism Qualified Code(s): A41.9 - Sepsis, unspecified organism (2) UTI (urinary tract infection) Current Visit: Yes Status: Acute Assessment and plan: Patient was recently discharged from hospital on 01/23; during hospitalization, patient was discharged home to complete a course of doxycycline and fosfomycin until 01/30 for UTI with ESBL Klebsiella; Repeat urinalysis shows proteinuria, glucosuria, too numerous to count WBCs and many squamous cells. Follow-up urine culture. Qualifiers: Urinary tract infection type: site unspecified Hematuria presence: without hematuria Qualified Code(s): N39.0 - Urinary tract infection, site not specified (3) DVT prophylaxis Current Visit: Yes Status: Acute (4) Morbid obesity Current Visit: Yes Status: Chronic (5) HTN (hypertension) Current Visit: Yes Status: Chronic Qualifiers: Hypertension type: essential hypertension Qualified Code(s): I10 - Essential (primary) hypertension (6) HLD (hyperlipidemia) Current Visit: Yes Status: Chronic Qualifiers: Hyperlipidemia type: unspecified Qualified Code(s): E78.5 - Hyperlipidemia , unspecified (7) Venous stasis dermatitis of both lower extremities Current Visit: Yes Status: Chronic (8) Diastolic heart failure Current Visit: Yes Status: Chronic Assessment and plan: Hold Lasix for now. Continue telemetry monitoring, beta geena. Qualifiers: Heart failure chronicity: chronic Qualified Code(s): I50.32 - Chronic diastolic (congestive) heart failure (9) Ulcer of right heel Current Visit: Yes Status: Chronic Assessment and plan: Patient follows with podiatry as outpatient, consulted as inpatient. Recommend right heel debridement in the OR on 02/01/2018. Local wound care per podiatry recommendations. Continue IV antibiotics. Qualifiers: Non-pressure ulcer stage: unspecified non-pressure ulcer stage Qualified Code(s): L97.419 - Non-pressure chronic ulcer of right heel and midfoot with unspecified severity (10) Type 2 diabetes mellitus Current Visit: Yes Status: Chronic Assessment and plan: Noted to have hypoglycemic episodes. Continue to monitor blood glucose closely , sliding scale insulin as needed. Diabetic diet. Qualifiers: Diabetes mellitus prison insulin use: with oil heaterman use Diabetes mellitus complication status: with skin complications Diabetes mellitus complication detail: with foot ulcer Qualified Code(s): E11.621 - Type 2 diabetes mellitus with foot ulcer; L97.509 - Non-pressure chronic ulcer of other part of unspecified foot with unspecified severity; Z79.4 - jail ( current) use of insulin (11) REGINALD on CPAP Current Visit: Yes Status: Chronic (12) HAP (hospital-acquired pneumonia) Current Visit: Yes Status: Suspected Assessment and plan: CTA demonstrated multifocal airspace consolidation throughout both lungs; most likely reflective of multifocal pneumonia. Patient was recently discharged from our hospital. Continue broad-spectrum IV antibiotics-vancomycin, Zosyn, hold Levaquin. Blood cultures negative. Urine legionella and strep pneumoniae antigen negative. (13) Elevated troponin Current Visit: Yes Status: Acute Assessment and plan: Noted to have mild troponin elevation, currently at 0.26. Could be related to sepsis and tachycardia. Follow-up echocardiogram and cardiology evaluation. continue beta geena, ASA and statin, Telemetry, cycle troponins; received therapeutic Lovenox; - Time Spent With Patient Total time spent is greater than 50% in coordination of care (as documented) at patient's floor/unit and/or counseling patient: - Subjective Interval history: Reports hunger and dizziness, demanding to have lunch. Improving fever/chills; no chest pain, shortness of breath, palpitations; reports leg swelling and redness; - Constitutional Vitals: Temp Pulse Resp BP Pulse Ox 98.2 F 112 16 145/81 93 01/30/18 15:28 01/30/18 15:28 01/30/18 16:07 01/30/18 15:28 01/30/18 16:07 General appearance: Present: cooperative, A&O X 3, morbidly obese, answers questions appropriately - Respiratory Respiratory exam: Present: CTAB. Absent: accessory muscle use, rales, rhonchi, wheezes - Cardiovascular Cardiovascular exam: Present: RRR, +S1, +S2. Absent: diastolic murmur, gallop, rubs, systolic murmur - GI/Abdominal GI/Abdominal exam: Present: normal bowel sounds, soft (obese), no peritoneal signs. Absent: distended, tenderness - Extremities Exam Extremities exam: Present: pedal edema, warm, radial pulses palpable and symmetrical. Absent: calf tenderness, cyanotic Additional comments: B/L pedal edema with stasis dermatitis and new erythema over anterior lower legs ; foul-smelling right heel ulcer, in surgical dressing; - Neurological Exam Neurological exam: Present: CN II-XII intact, oriented X3, no focal deficits. Absent: pronater drift, facial droop, speech deficit Internal Medicine: Result - Labs CBC & Chem 7: 01/30/18 04:41 01/30/18 04:41 Labs: Short CBC 01/30/18 Range/Units 04:41 WBC 7.5 (4.3-11.1) K/mcL Hgb 8.6 L D (11.5-15.4) g/dL Hct 28.4 L (35.3-44.9) % Plt Count 166 (140-400) K/mcL Neutrophils # 5.2 (1.6-8.9) K/mcL BMP 01/30/18 04:41 Sodium 135 L Potassium 4.3 Chloride 99 Carbon Dioxide 31 H BUN 39 H Creatinine 0.98 Glucose 170 H Calcium 8.0 L Cardiac Enzymes 01/29/18 01/30/18 01/30/18 Range/Units 23:00 04:41 10:30 Troponin I 0.14 H* 0.18 H* 0.23 H* (< 0.04) ng/mL 01/30/18 Range/Units 15:58 Troponin I 0.19 H* (< 0.04) ng/mL - ABG Interpretation ABG results: PT/INR, D-dimer PT 13.8 Seconds (9.4-12.1) H 01/29/18 17:11 Consult Discharge Plan - Plan Referrals: Jc Tsia MD [Primary Care Provider] -
[2018-01-30] MEDS: Gabapentin 300 MG CAPSULE PO SCH (22:29)
[2018-01-30] MEDS: Doxycycline 100 MG CAPSULE PO SCH (22:29)
[2018-01-30] MEDS: Lactobacillus 1 EACH CAP.SPRINK PO SCH (22:30)
[2018-01-30] MEDS: Pregabalin 75 MG CAPSULE PO SCH (22:30)
[2018-01-30] MEDS: Latanoprost 2.5 ML BOTTLE BOTH EYES SCH (22:30)
[2018-01-31] MEDS: Insulin DETEMIR 100 UNIT/ML X5UNITS SQ SCH ×2 (00:28→22:44)
[2018-01-31] MEDS: Piperacillin/Tazobactam 3.375 GM in 0.9 % Sodium Chloride Mini Bag 100 ML IVPB SCH ×3 (00:29→17:20)
[2018-01-31 01:26] LABS: Adenovirus Not Detected (Not Detect); Bordetella Pertussis Not Detected (Not Detect); Chlamydophila pneumoniae Not Detected (Not Detect); Coronavirus 229E Not Detected (Not Detect); Coronavirus HKU1 Not Detected (Not Detect); Coronavirus NL63 Not Detected (Not Detect); Coronavirus OC43 Not Detected (Not Detect); Human Metapneumovirus Not Detected (Not Detect); Human Rhinovirus/Enterovirus Not Detected (Not Detect); Influenza A Subtype 2009 H1 Not Detected (Not Detect); Influenza A Untypeable Not Detected (Not Detect); Influenza B Not Detected (Not Detect); Mycoplasma pneumoniae Not Detected (Not Detect); Parainfluenza Virus 1 Not Detected (Not Detect); Parainfluenza Virus 2 Not Detected (Not Detect); Parainfluenza Virus 3 Not Detected (Not Detect); Parainfluenza Virus 4 Not Detected (Not Detect); Respiratory Syncytial Virus Not Detected (Not Detect)
[2018-01-31] MEDS: Ipratropium Neb 0.5 MG NEBULIZER IH SCH ×4 (03:39→21:14)
[2018-01-31] MEDS: Levalbuterol Neb 0.63 MG/3 ML IH SCH ×4 (03:39→21:14)
[2018-01-31 06:06] LABS: Basophils # 0.1 K/mcL (0.0-0.2); Basophils % 0.6 %; Eosinophils # 0.2 K/mcL (0.0-0.6); Eosinophils % 2.3 %; Hematocrit 27.4 % (35.3-44.9); Hemoglobin 8.1 g/dL (11.5-15.4); Immature Granulocytes % 0.5 % (0-4); Mean Corpuscular HGB Conc 29.6 g/dL (31.6-35.5); Mean Corpuscular Hemoglobin 24.4 pg (28.0-33.3); Mean Corpuscular Volume 82.5 fL (83.0-100.0); Monocytes # 0.7 K/mcL (0.0-1.3); Monocytes % 8.9 %; Neutrophils # 4.8 K/mcL (1.6-8.9); Platelet Count 184 K/mcL (140-400); Red Blood Count 3.32 M/mcL (3.82-4.97); Red Cell Distribution Width 19.1 % (11.5-14.5); Segmented Neutrophils % 61.7 %
[2018-01-31] MEDS: *HR* Heparin 5,000 UNIT/ML VIAL SQ SCH ×3 (06:17→22:44)
[2018-01-31 06:22] LABS: BUN/Creatinine Ratio 28 (6-26); Blood Urea Nitrogen 30 mg/dL (6-20); Calcium 8.2 mg/dL (8.6-10.3); Carbon Dioxide 32 mEq/L (23-29); Chloride 101 mEq/L (98-107); Glucose 116 mg/dL (70-105); Osmolality,Calculated 295 (280-300); Potassium 4.8 mEq/L (3.5-5.1); Sodium 139 mEq/L (136-145); eGFR For Non-African Americans 52 (> 60)
[2018-01-31] MEDS ORDERED: Diltiazem CD (24hr) 120 MG CAPSULE PO SCH (09:00)
--- NOTE | 2018-01-31 09:25 | Infectious Disease Progress No ---
Date of Encounter: 01/31/18 Time of Encounter: 10:45 - Subjective Interval history: Patient was seen and examined at bedside this morning. Reports that she feels better today. denies any respiratory distress at this time. Rash on patient's right arm is markedly improved; now extends from dorsal aspect of hand to distal aspect of forearm. Less erythema than yesterday. She denies fever and chills. Also denies cough, chest pain, shortness of breath, fever chills, or leg pain. No further complaints at this time. Infect Dis PN-Objective Data - Labs CBC & Chem 7: 02/01/18 04:43 02/01/18 04:43 Labs: Laboratory Results - last 24 hr 01/30/18 01/30/18 01/31/18 18:41 20:06 00:00 WBC RBC Hgb Hct MCV MCH MCHC RDW Plt Count MPV Immature Gran % Seg Neutrophils % Lymphocytes % Monocytes % Eosinophils % Basophils % Neutrophils # Lymphocytes # Monocytes # Eosinophils # Basophils # Sodium Potassium Chloride Carbon Dioxide BUN Creatinine Est GFR ( Amer) Est GFR (Non-Af Amer) BUN/Creatinine Ratio Glucose POC Glucose 119 H 124 H Calculated Osmolality Calcium Chlamy pneumoniae PCR Not Detected Adenovirus (PCR) Not Detected B. pertussis DNA (PCR) Not Detected B.parapertussis DNA PCR Not Detected Coronavirus OC43 (PCR) Not Detected Coronavirus HKU1 (PCR) Not Detected Coronavirus 229E (PCR) Not Detected Coronavirus NL63 (PCR) Not Detected Human Metapneumovir PCR Not Detected Influenza A (H1) PCR Not Detected Influ A (H1N1/09) PCR Not Detected Influenza A (H3) PCR Not Detected Influenza A Untype (PCR) Not Detected Influenza Type B (PCR) Not Detected M.pneumoniae DNA (PCR) Not Detected Parainfluenza 1 (PCR) Not Detected Parainfluenza 2 (PCR) Not Detected Parainfluenza 3 (PCR) Not Detected Parainfluenza 4 (PCR) Not Detected RSV (PCR) Not Detected Entero/Rhino (PCR) Not Detected 01/31/18 01/31/18 05:50 05:50 WBC 7.7 RBC 3.32 L Hgb 8.1 L Hct 27.4 L MCV 82.5 L MCH 24.4 L MCHC 29.6 L RDW 19.1 H Plt Count 184 MPV 12.0 Immature Gran % 0.5 Seg Neutrophils % 61.7 Lymphocytes % 26.0 Monocytes % 8.9 Eosinophils % 2.3 Basophils % 0.6 Neutrophils # 4.8 Lymphocytes # 2.0 Monocytes # 0.7 Eosinophils # 0.2 Basophils # 0.1 Sodium 139 Potassium 4.8 Chloride 101 Carbon Dioxide 32 H BUN 30 H Creatinine 1.09 Est GFR ( Amer) > 60 Est GFR (Non-Af Amer) 52 L BUN/Creatinine Ratio 28 H Glucose 116 H POC Glucose Calculated Osmolality 295 Calcium 8.2 L Chlamy pneumoniae PCR Adenovirus (PCR) B. pertussis DNA (PCR) B.parapertussis DNA PCR Coronavirus OC43 (PCR) Coronavirus HKU1 (PCR) Coronavirus 229E (PCR) Coronavirus NL63 (PCR) Human Metapneumovir PCR Influenza A (H1) PCR Influ A (H1N1) PCR Influenza A (H3) PCR Influenza A Untype (PCR) Influenza Type B (PCR) M.pneumoniae DNA (PCR) Parainfluenza 1 (PCR) Parainfluenza 2 (PCR) Parainfluenza 3 (PCR) Parainfluenza 4 (PCR) RSV (PCR) Entero/Rhino (PCR) Cultures: Serology 01/30/18 Range/Units 18:41 Chlamy pneumoniae PCR Not Detected (Not Detect) Adenovirus (PCR) Not Detected (Not Detect) B. pertussis DNA (PCR) Not Detected (Not Detect) B.parapertussis DNA PCR Not Detected (Not Detect) Coronavirus OC43 (PCR) Not Detected (Not Detect) Coronavirus HKU1 (PCR) Not Detected (Not Detect) Coronavirus 229E (PCR) Not Detected (Not Detect) Coronavirus NL63 (PCR) Not Detected (Not Detect) Human Metapneumovir PCR Not Detected (Not Detect) Influenza A (H1) PCR Not Detected (Not Detect) Influ A (H1N1/09) PCR Not Detected (Not Detect) Influenza A (H3) PCR Not Detected (Not Detect) Influenza A Untype (PCR) Not Detected (Not Detect) Influenza Type B (PCR) Not Detected (Not Detect) M.pneumoniae DNA (PCR) Not Detected (Not Detect) Parainfluenza 1 (PCR) Not Detected (Not Detect) Parainfluenza 2 (PCR) Not Detected (Not Detect) Parainfluenza 3 (PCR) Not Detected (Not Detect) Parainfluenza 4 (PCR) Not Detected (Not Detect) RSV (PCR) Not Detected (Not Detect) Entero/Rhino (PCR) Not Detected (Not Detect) Exam - Constitutional Vitals: Temp Pulse Resp BP Pulse Ox 98.4 F 102 15 148/71 91 01/31/18 06:49 01/31/18 06:49 01/31/18 06:49 01/31/18 06:49 01/31/18 06:49 General appearance: no acute distress - Head Head exam: Present: atraumatic, normal inspection - Cardiovascular Cardiovascular exam: Present: RRR, +S1, +S2 Consult Discharge Plan - Plan Referrals: Jc Tsai MD [Primary Care Provider] - - Attending Attestation I examined this patient and my medical decision-making was reviewed with the Resident Physician. I agree with the documented findings, disposition and treatment plan as described except to the extent set forth below.
[2018-01-31] MEDS ORDERED: Perflutren Lipid Microsphere 1.3 ML in 0.9 % Sodium Chloride 8.7 ML IVP ONE (09:40)
[2018-01-31] MEDS: Thiamine (B-1) 100 MG TABLET PO SCH (10:41)
[2018-01-31] MEDS: Doxycycline 100 MG CAPSULE PO SCH (10:42)
[2018-01-31] MEDS: Pregabalin 75 MG CAPSULE PO SCH ×2 (10:42→22:45)
[2018-01-31] MEDS: Lactobacillus 1 EACH CAP.SPRINK PO SCH ×2 (10:42→22:45)
[2018-01-31] MEDS: Aspirin 81 MG TAB.CHEW PO SCH (10:42)
[2018-01-31] MEDS: tiZANidine 4 MG TABLET PO SCH ×3 (10:43→22:45)
[2018-01-31] MEDS: Insulin LISPRO 300 UNITS/3 ML VIAL SQ SCH ×4 (10:58→22:47)
--- NOTE | 2018-01-31 16:07 | Internal Med Progress Note ---
Date of Encounter: 01/31/18 Time of Encounter: 11:00 - Assessment and plan (1) Sepsis Current Visit: Yes Status: Acute Assessment and plan: Presented with leukocytosis and tachycardia, possible pneumonia, bilateral leg cellulitis, right foot ulcer. Follow up cultures and continue IV antibiotics, further plan as below. Qualifiers: Sepsis type: sepsis due to unspecified organism Qualified Code(s): A41.9 - Sepsis, unspecified organism (2) UTI (urinary tract infection) Current Visit: Yes Status: Ruled-out Assessment and plan: Patient was recently discharged from hospital on 01/23; patient was discharged home to complete a course of doxycycline and fosfomycin until 01/30 for UTI with ESBL Klebsiella; Repeat urinalysis shows proteinuria, glucosuria, too numerous to count WBCs and many squamous cells. Urine culture is negative. Qualifiers: Urinary tract infection type: site unspecified Hematuria presence: without hematuria Qualified Code(s): N39.0 - Urinary tract infection, site not specified (3) DVT prophylaxis Current Visit: Yes Status: Acute (4) Morbid obesity Current Visit: Yes Status: Chronic (5) HTN (hypertension) Current Visit: Yes Status: Chronic Qualifiers: Hypertension type: essential hypertension Qualified Code(s): I10 - Essential (primary) hypertension (6) HLD (hyperlipidemia) Current Visit: Yes Status: Chronic Qualifiers: Hyperlipidemia type: unspecified Qualified Code(s): E78.5 - Hyperlipidemia , unspecified (7) Venous stasis dermatitis of both lower extremities Current Visit: Yes Status: Chronic (8) Diastolic heart failure Current Visit: Yes Status: Chronic Assessment and plan: Restart Lasix. Continue telemetry monitoring, beta geena. Qualifiers: Heart failure chronicity: chronic Qualified Code(s): I50.32 - Chronic diastolic (congestive) heart failure (9) Ulcer of right heel Current Visit: Yes Status: Chronic Assessment and plan: Patient follows with podiatry as outpatient, consulted as inpatient. Recommend right heel debridement in the OR on 02/01/2018. Local wound care per podiatry recommendations. Continue IV antibiotics. Qualifiers: Non-pressure ulcer stage: unspecified non-pressure ulcer stage Qualified Code(s): L97.419 - Non-pressure chronic ulcer of right heel and midfoot with unspecified severity (10) Type 2 diabetes mellitus Current Visit: Yes Status: Chronic Assessment and plan: Blood sugars noted to be well-controlled; sliding scale insulin as needed. Diabetic diet. 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 Patient was recently discharged from our hospital. Continue broad-spectrum IV antibiotics-vancomycin, Zosyn. Blood cultures negative. Urine legionella and strep pneumoniae antigen negative. Respiratory infection panel negative. (13) Elevated troponin Current Visit: Yes Status: Acute Assessment and plan: Noted to have mild troponin elevation, trending down now. Could be related to sepsis and tachycardia. Cardiology evaluation noted- agree with this, less likely NSTEMI. continue beta geena, ASA and statin, Telemetry; Echo shows preserved EF, concentric LVH, mild LV diastolic dysfunction, mild pulm HTN; - Time Spent With Patient Total time spent is greater than 50% in coordination of care (as documented) at patient's floor/unit and/or counseling patient: - Subjective Interval history: Denies new complaints; no fever/chills, chest or abdominal pain, dyspnea; eating Goldfish crackers in bed; tolerates diet; - Constitutional Vitals: Temp Pulse Resp BP Pulse Ox 97.6 F 82 15 113/62 92 01/31/18 15:16 01/31/18 15:16 01/31/18 15:16 01/31/18 15:16 01/31/18 15:16 General appearance: Present: cooperative, A&O X 3, morbidly obese, answers questions appropriately - Respiratory Respiratory exam: Present: CTAB. Absent: accessory muscle use, rales, rhonchi, wheezes - Cardiovascular Cardiovascular exam: Present: RRR, +S1, +S2. Absent: diastolic murmur, gallop, rubs, systolic murmur - GI/Abdominal GI/Abdominal exam: Present: normal bowel sounds, soft, no peritoneal signs. Absent: distended, tenderness - Extremities Exam Extremities exam: Present: pedal edema, warm, radial pulses palpable and symmetrical. Absent: calf tenderness, cyanotic Additional comments: chronic stasis dermatitis, chronic venous insufficiency, foul-smelling right heel ulcer; improving erythema over distal anterior legs - Neurological Exam Neurological exam: Present: CN II-XII intact, oriented X3, no focal deficits. Absent: pronater drift, facial droop, speech deficit Internal Medicine: Result - Labs CBC & Chem 7: 01/31/18 05:50 01/31/18 05:50 Labs: Short CBC 01/31/18 Range/Units 05:50 WBC 7.7 (4.3-11.1) K/mcL Hgb 8.1 L (11.5-15.4) g/dL Hct 27.4 L (35.3-44.9) % Plt Count 184 (140-400) K/mcL Neutrophils # 4.8 (1.6-8.9) K/mcL BMP 01/31/18 05:50 Sodium 139 Potassium 4.8 Chloride 101 Carbon Dioxide 32 H BUN 30 H Creatinine 1.09 Glucose 116 H Calcium 8.2 L - ABG Interpretation ABG results: PT/INR, D-dimer PT 13.8 Seconds (9.4-12.1) H 01/29/18 17:11 - Impressions Impressions Echocardiogram 01/31/18 11:46 Impressions: LVEF 65%. Normal LV chamber size and function. Mild concentric left ventricular hypertrophy. Mild left ventricular diastolic dysfunction. Right ventricular size was not well visualized. Function appears grossly normal. Mild pulmonary hypertension. No significant valvular dysfunction. Left Ventricular Wall Motion: Rest Echo Findings All wall segments showed normal motion. Findings: Study Quality * Technically sub-optimal due to body habitus. ECG Findings * Sinus tachycardia. Left Ventricle * LVEF 65%. * Normal LV chamber size and function. * Mild concentric left ventricular hypertrophy. * Mild left ventricular diastolic dysfunction. Right Ventricle * Right ventricular size was not well visualized. Function appears grossly normal. Left Atrium * Moderately dilated left atrium. Right Atrium * Mildly dilated right atrium. Aortic Valve * Aortic valve not well visualized. * No aortic regurgitation. * No aortic stenosis. Mitral Valve * Mild mitral annular calcification * Trace mitral regurgitation. * No mitral stenosis. Tricuspid Valve * Normal tricuspid valve structure and function. * Trace tricuspid regurgitation. * Mild pulmonary hypertension. Pulmonic Valve * Pulmonic valve not well visualized. Aorta * Normally sized aortic root. Pericardium * The pericardium appears normal. IVC * Normal IVC dimensions and inspiratory collapse. Pulmonary Artery * Pulmonary artery not well visualized. Consult Discharge Plan - Plan Referrals: Jc Tsai MD [Primary Care Provider] -
[2018-01-31] MEDS ORDERED: Furosemide 40 MG TABLET PO SCH (17:00)
--- NOTE | 2018-01-31 19:06 | Electrocardiograph Report ---
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
[2018-01-31] MEDS: Gabapentin 300 MG CAPSULE PO SCH (22:45)
[2018-01-31] MEDS: Latanoprost 2.5 ML BOTTLE BOTH EYES SCH (22:52)
--- NOTE | 2018-02-01 00:23 | Anesthesia Evaluation PreOp ---
<Gina Pedroza - Last Filed: 02/01/18 00:33> Date of Encounter: 02/01/18 - Past History Cardiac History: CHF (acute on chronic diastolic heart failure - due to admission for sepsis and administration of IV fluids, likely resulted in pulmonary edema noted on CXR and CT), HTN, Hyperlipidemia, Other (Cardiology consult recommendations pending 01-31-18 TTE report that is back (and relatively unremarkable); however, patient is in acute on chronic diastolic heart failure per cardiology note and had increased troponins unlikely due to NSTEMI) Pulmonary History: REGINALD Dx, Other (health care acquired pneumonia (CTA negative for pulmonary embolus), pulomonary edema, hypoxia this admission) BUDDHIST MONK History: Other (depression) Other Medical History: Diabetes Type II (insulin dependent), GERD, Other (sepsis , anemia (acute) with current hgb 8.1 and trending downward, BMI 49) Alcohol Use: none Drug use: none Medications and Allergies Atorvastatin [Lipitor] 40 mg PO HS 01/11/16 [History] Insulin ASPART [Novolog Flexpen] 6 - 14 unit SQ TID 01/11/16 [History] Latanoprost [Xalatan] 1 drop BOTH EYES HS 01/11/16 [History] Primidone [Mysoline] 25 - 50 mg PO BID PRN 01/11/16 [History] Ascorbic Acid [Vitamin C] 500 mg PO BID 03/25/16 [History] Docusate Sodium [Colace] 200 mg PO BID 03/25/16 [History] Furosemide [Lasix] 40 mg PO BID 12/06/16 [History] Fluticasone Propionate Nasal [Flonase] 2 spray NS DAILY #1 bottle 08/28/17 [Rx] Brimonidine Tartrate/Timolol [Combigan 0.2%-0.5% Eye Drops] 1 drop OP BID [History] Diltiazem HCl [Diltiazem 12Hr ER] 120 mg PO DAILY 11/10/17 [History] Esomeprazole Magnesium [Nexium] 40 mg PO DAILY 11/10/17 [History] Gentamicin Oint [Garamycin] 1 appl TP BID 11/10/17 [History] Ketoconazole 2% CRM [Nizoral Cream] 1 appl TP DAILY 11/10/17 [History] Ketorolac Tromethamine 1 drop OP QID 11/10/17 [History] Losartan Potassium [Cozaar] 100 mg PO DAILY 11/10/17 [History] Tizanidine HCl 4 mg PO TID 11/20/17 [History] Calcium Carbonate [Tums] 1,000 mg PO Q4HR PRN tab.chew 11/24/17 [Rx] Carvedilol [Coreg] 6.25 mg PO BIDWM tablet 11/24/17 [Rx] Lactobacillus Acidophilus [Acidophilus] 1 each PO BID #10 capsule 11/24/17 [Rx] Pregabalin [Lyrica] 75 mg PO BID 30 Days #60 capsule 11/24/17 [Rx] clonazePAM [Klonopin] 0.5 mg PO BID PRN 5 Days #10 tablet 11/24/17 [Rx] Gabapentin [Neurontin] 300 mg PO HS 01/17/18 [History] Insulin Glargine,Hum.rec.anlog [Basaglar Kwikpen U-100] 40 unit SQ BID 01/17/18 [History] Potassium Chloride [K-Tab ER] 20 meq PO QID 01/17/18 [History] Fosfomycin Tromethamine [Monurol] 3 gm PO Q48H 8 Days #4 packet 01/23/18 [Rx] Nystatin POWDER [Nystop] 1 appl TP BID bottle 01/23/18 [Rx] Ferrous Sulfate 325 mg PO BID 01/30/18 [History] Loratadine [Allergy Relief] 10 mg PO DAILY 01/30/18 [History] Pantoprazole Sodium [Protonix] 40 mg PO DAILY 01/30/18 [History] Polyethylene Glycol 3350 [MiraLAX] 17 gm PO DAILY 01/30/18 [History] 3 Allergy/AdvReac Type Severity Reaction Status Date / Time lisinopril [From Zestril] Allergy Rash Verified 01/17/18 13:50 - Meds/Allergy Pre-op Review Medications Reviewed: Yes Allergies Reviewed: Yes Beta Blockers on Current Med List: Yes (coreg) If Beta Blockers taken, Date/Time (Last Dose taken): 01-31-18 coreg at 17:22 Anesthesia Results - Labs 01/31/18 05:50 01/31/18 05:50 - Imaging EKG: report reviewed, image reviewed (SINUS TACHYCARDIA) Chest x-ray: report reviewed (Increasing pulmonary edema with worsening bibasilar atelectasis.) Additional studies: 01-31-2018 TTE: EV/EV echocardiogram w enhance Impressions: LVEF 65%. Normal LV chamber size and function. Mild concentric left ventricular hypertrophy. Mild left ventricular diastolic dysfunction. Right ventricular size was not well visualized. Function appears grossly normal. Mild pulmonary hypertension. No significant valvular dysfunction. Cardiology consult: Acute on chronic diastolic heart failure Current Visit: No Status: Acute Per cardiology: -Admitted with sepsis and was given IV fluids. -Xray and CT with pulmonary edema. -Net positive fluid balance. -TTE 11/2016 with LVEF 60%, mild concentric LVH, moderate diastolic dysfunction, no segmental wall motion abnormalities noted. -TTE pending. noted above -Strict i/os, fluid restriction, daily weights. -Consider addition of lasix. Elevated troponin Current Visit: Yes Status: Acute Per cardiology: -Troponins 0.04, 0.14, 0.18, 0.23 in the setting of sepsis, CHF. -Denies chest pain. -NO acute ischemic ECG changes. -TTE pending. -ON asa, statin, BB. Was given therpeutic lovenox. -At this time, DO not suspect NSTEMI, suspect demand ischemia related to above. NO cardiac rehab consult warranted. -Consider heparin drip. -COntinue to trend troponins. -Further recommendations pending TTE. These further recommendations are not specified at this time although TTE report above is re-assuring (02-01-18 at 00:27) CTA Chest 01-29-18: IMPRESSION: 1. Study limited by patient motion artifact and the left arm overlying the chest, causing streak artifact through the pulmonary arteries. However, there is no gross CT evidence of a pulmonary embolism. 2. No acute abnormality of the thoracic aorta. 3. Multifocal airspace consolidation throughout both lungs most likely reflects multifocal pneumonia. Additional scattered ground-glass opacity likely reflects either the continuum of multifocal pneumonia or additional superimposed asymmetric edema. Suggest appropriate clinical treatment, and short-term chest CT follow-up in 6-8 weeks to ensure resolution of the multifocal airspace opacities. 4. Trace right pleural effusion. 5. Stable 2.4 cm low-attenuation nodule within the left thyroid lobe. Unless this has already been clinically worked up, further follow-up of this nodule is as advised below. Anesthesia Exam Last Vital Signs Temp 97.9 F 01/31/18 23:34 Pulse 77 01/31/18 23:34 Resp 18 01/31/18 23:34 BP 124/77 01/31/18 23:34 Pulse Ox 85 01/31/18 23:34 Weight: 138 kg - HEENT Mallampati: II Teeth: Edentulous Anesthesia Assess/Plan ASA Score: 4 <Michi Lynne - Last Filed: 02/01/18 09:45> Date of Encounter: 02/01/18 Time of Encounter: 09:43 - Past History Planned Operation: Debridement R foot heel ulcer Anesthesia History: No Prior Anesthetic Complications, Past Anesthesia ( hysterectomy) : No Anesthesia Results - Labs 02/01/18 04:43 02/01/18 04:43 Anesthesia Exam Vital Signs/O2 Sat/Glucose, Most Recent Temp Pulse Resp BP Pulse Ox 97.7 F 83 14 143/68 80 02/01/18 07:23 02/01/18 07:23 02/01/18 07:23 02/01/18 07:23 02/01/18 07:23 Blood Glucose* 127 Height: 1.68 NPO (# of Hours): > 8 hrs - HEENT Oral Opening: Less than or equal to 3 - BUDDHIST MONK BUDDHIST MONK Motor: Normal RUE, Normal LUE, Normal RLE, Normal LLE, Normal Face BUDDHIST MONK Sensory: Deficit: RLE, LLE - Cardiac Rhythm: Regular Murmur: None - Pulmonary Breath Sounds: bilateral Rales (base) Respiratory Effort: Symmetrical Anesthesia Assess/Plan Modified Monet Scale for Level of Consciousness: Cooperative, oriented, and tranquil Anesthetic Plan: MAC Monitoring Plan: Standard Monitors Recovery Plan: PACU
[2018-02-01] MEDS: Piperacillin/Tazobactam 3.375 GM in 0.9 % Sodium Chloride Mini Bag 100 ML IVPB SCH ×3 (03:30→16:59)
[2018-02-01] MEDS: Ipratropium Neb 0.5 MG NEBULIZER IH SCH ×4 (03:40→21:46)
[2018-02-01] MEDS: Levalbuterol Neb 0.63 MG/3 ML IH SCH ×4 (03:41→21:46)
[2018-02-01 05:00] LABS: Basophils % 0.5 %; Eosinophils # 0.2 K/mcL (0.0-0.6); Eosinophils % 1.9 %; Hematocrit 28.9 % (35.3-44.9); Hemoglobin 8.5 g/dL (11.5-15.4); Immature Granulocytes % 0.6 % (0-4); Lymphocytes # 2.2 K/mcL (0.6-4.6); Lymphocytes % 26.2 %; Mean Corpuscular HGB Conc 29.4 g/dL (31.6-35.5); Mean Corpuscular Hemoglobin 24.4 pg (28.0-33.3); Mean Corpuscular Volume 82.8 fL (83.0-100.0); Monocytes # 0.7 K/mcL (0.0-1.3); Neutrophils # 5.2 K/mcL (1.6-8.9); Platelet Count 207 K/mcL (140-400); Red Blood Count 3.49 M/mcL (3.82-4.97); Red Cell Distribution Width 19.3 % (11.5-14.5); Segmented Neutrophils % 62.8 %
[2018-02-01 05:19] LABS: BUN/Creatinine Ratio 26 (6-26); Blood Urea Nitrogen 29 mg/dL (6-20); Calcium 8.3 mg/dL (8.6-10.3); Carbon Dioxide 32 mEq/L (23-29); Chloride 101 mEq/L (98-107); Glucose 120 mg/dL (70-105); Osmolality,Calculated 291 (280-300); Potassium 4.7 mEq/L (3.5-5.1); Sodium 137 mEq/L (136-145); eGFR For Non-African Americans 50 (> 60)
[2018-02-01] MEDS: *HR* Heparin 5,000 UNIT/ML VIAL SQ SCH ×3 (06:14→21:03)
[2018-02-01] MEDS ORDERED: *HR* Midazolam HCl 2 MG/2 ML VIAL ONE (09:30)
[2018-02-01] MEDS ORDERED: Lidocaine -MPF 2% 2 ML VIAL ONE (09:30)
[2018-02-01] MEDS ORDERED: Propofol 500 MG/50 ML INFUS..BTL ONE (09:30)
[2018-02-01] MEDS ORDERED: *HR* Propofol 200 MG/20 ML VIAL IVP ONE (09:34)
[2018-02-01] MEDS ORDERED: Bupivacaine/Clonidine Syringe 1 EACH SYRINGE ONE (10:01)
--- NOTE | 2018-02-01 10:04 | Infectious Disease Progress No ---
Date of Encounter: 02/01/18 Time of Encounter: 10:03 - Assessment and Plan (1) Sepsis Current Visit: No Status: Resolved Met 3/4 SIRS criteria, with leukocytosis, tachycardia, tachypnea - Known source of infection with multifocal pneumonia, UTI, and cellulitis - Home health nurse reported a fever of 102 before admission - Patient was given IV fluid resuscitation in the emergency department - Blood cultures are ordered and are currently pending - White count remains stable at 8.3 - Currently on IV vancomycin, Zosyn Qualifiers: Sepsis type: sepsis due to unspecified organism Qualified Code(s): A41.9 - Sepsis, unspecified organism (2) UTI (urinary tract infection) Current Visit: Yes Status: Ruled-out Patient was recently discharged from hospital on 01/23; during hospitalization, patient was discharged home to complete a course of doxycycline fosfomycin until 01/30 for UTI with ESBL Klebsiella - Urinalysis demonstrates large amount of leukocyte esterase, white blood cells too numerous to count - Urine culture from 01/30 is negative - Continue IV antibiotics as above Qualifiers: Urinary tract infection type: site unspecified Hematuria presence: without hematuria Qualified Code(s): N39.0 - Urinary tract infection, site not specified (3) HAP (hospital-acquired pneumonia) Current Visit: Yes Status: Suspected - Patient was recently discharged on 01/23 - On arrival, SPO2 was 84% on room air; heart rate in the 130s - Chest x-ray demonstrated increasing pulmonary edema with worsening basilar atelectasis - CTA demonstrated multifocal airspace consolidation throughout both lungs; most likely reflective of multifocal pneumonia. - Continue bronchodilators and incentive spirometry - IV antibiotics as above - Resp. infection panel negative - Legionella and strep antigen both negative - Sputum cx pending (4) Ulcer of right heel Current Visit: Yes Status: Chronic - Patient has necrotic right heel ulcer and bilateral lower extremity cellulitis - Normally sees fleecer Dr. Stoll - CT scan of the legs was negative for osteomyelitis; did not demonstrate extensive subcutaneous edema - Underwent surgical debridement; would appreciate recommendations Qualifiers: Non-pressure ulcer stage: unspecified non-pressure ulcer stage Qualified Code(s): L97.419 - Non-pressure chronic ulcer of right heel and midfoot with unspecified severity (5) Venous stasis dermatitis of both lower extremities Current Visit: Yes Status: Chronic - CT of the legs demonstrated extensive subcutaneous edema skin thickening of the bilateral lower extremities - Findings are likely reflective of chronic venous stasis/lymphedema versus cellulitis - No organized drainable fluid collection has been identified - Continue wound care (6) Diastolic heart failure Current Visit: Yes Status: Chronic - Acute on chronic diastolic CHF exacerbation - Presented with shortness of breath, pedal edema, rales on exam, and tachycardia with heart rate in the 130s - CXR revealed increasing pulmonary edema with worsening bibasilar atelectasis. - Echo 11/11/17 revealed LVEF 55-60%, mild concentric LVH - Management per primary team Qualifiers: Heart failure chronicity: chronic Qualified Code(s): I50.32 - Chronic diastolic (congestive) heart failure (7) Type 2 diabetes mellitus Current Visit: Yes Status: Chronic - HGB a1c level 11% on 09/20/17 - Continue basal and SSI - Monitor accu-checks Qualifiers: Diabetes mellitus half-way insulin use: with half-way use Diabetes mellitus complication status: with skin complications Diabetes mellitus complication detail: with foot ulcer Qualified Code(s): E11.621 - Type 2 diabetes mellitus with foot ulcer; L97.509 - Non-pressure chronic ulcer of other part of unspecified foot with unspecified severity; Z79.4 - contract accountant ( current) use of insulin (8) Thyroid nodule Current Visit: Yes Status: Acute - Incidentally found on chest CTA on 01/29; stable 2.4 cm low attenuation nodule within the left thyroid lobe. - Follow-up the outpatient setting - Subjective Interval history: Patient was seen and examined at bedside this morning. Rash on R arm improving. She is s/p Incision and drainage and debridement of all necrotic tissue right foot/heel and application of PuraPly wound matrix with graft jacket and wound VAC right heel. She denies any pain in her foot. Denies fever , chills, shortness of breath, or abdominal pain. No further complaints. Infect Dis PN-Objective Data - Labs CBC & Chem 7: 02/01/18 04:43 02/02/18 04:09 Labs: Laboratory Results - last 24 hr 01/31/18 01/31/18 01/31/18 06:35 10:31 16:59 WBC RBC Hgb Hct MCV MCH MCHC RDW Plt Count MPV Immature Gran % Seg Neutrophils % Lymphocytes % Monocytes % Eosinophils % Basophils % Neutrophils # Lymphocytes # Monocytes # Eosinophils # Basophils # Sodium Potassium Chloride Carbon Dioxide BUN Creatinine Est GFR ( Amer) Est GFR (Non-Af Amer) BUN/Creatinine Ratio Glucose POC Glucose 134 H 140 H 171 H Calculated Osmolality Calcium Vancomycin Trough 01/31/18 01/31/18 02/01/18 21:23 22:00 04:41 WBC RBC Hgb Hct MCV MCH MCHC RDW Plt Count MPV Immature Gran % Seg Neutrophils % Lymphocytes % Monocytes % Eosinophils % Basophils % Neutrophils # Lymphocytes # Monocytes # Eosinophils # Basophils # Sodium Potassium Chloride Carbon Dioxide BUN Creatinine Est GFR ( Amer) Est GFR (Non-Af Amer) BUN/Creatinine Ratio Glucose POC Glucose 199 H 120 H Calculated Osmolality Calcium Vancomycin Trough 31 H 02/01/18 02/01/18 04:43 04:43 WBC 8.3 RBC 3.49 L Hgb 8.5 L Hct 28.9 L MCV 82.8 L MCH 24.4 L MCHC 29.4 L RDW 19.3 H Plt Count 207 MPV 12.0 Immature Gran % 0.6 Seg Neutrophils % 62.8 Lymphocytes % 26.2 Monocytes % 8.0 Eosinophils % 1.9 Basophils % 0.5 Neutrophils # 5.2 Lymphocytes # 2.2 Monocytes # 0.7 Eosinophils # 0.2 Basophils # 0.0 Sodium 137 Potassium 4.7 Chloride 101 Carbon Dioxide 32 H BUN 29 H Creatinine 1.13 Est GFR ( Amer) > 60 Est GFR (Non-Af Amer) 50 L BUN/Creatinine Ratio 26 Glucose 120 H POC Glucose Calculated Osmolality 291 Calcium 8.3 L Vancomycin Trough Cultures: Serology 01/30/18 Range/Units 18:41 Chlamy pneumoniae PCR Not Detected (Not Detect) Adenovirus (PCR) Not Detected (Not Detect) B. pertussis DNA (PCR) Not Detected (Not Detect) B.parapertussis DNA PCR Not Detected (Not Detect) Coronavirus OC43 (PCR) Not Detected (Not Detect) Coronavirus HKU1 (PCR) Not Detected (Not Detect) Coronavirus 229E (PCR) Not Detected (Not Detect) Coronavirus NL63 (PCR) Not Detected (Not Detect) Human Metapneumovir PCR Not Detected (Not Detect) Influenza A (H1) PCR Not Detected (Not Detect) Influ A (H1N1/09) PCR Not Detected (Not Detect) Influenza A (H3) PCR Not Detected (Not Detect) Influenza A Untype (PCR) Not Detected (Not Detect) Influenza Type B (PCR) Not Detected (Not Detect) M.pneumoniae DNA (PCR) Not Detected (Not Detect) Parainfluenza 1 (PCR) Not Detected (Not Detect) Parainfluenza 2 (PCR) Not Detected (Not Detect) Parainfluenza 3 (PCR) Not Detected (Not Detect) Parainfluenza 4 (PCR) Not Detected (Not Detect) RSV (PCR) Not Detected (Not Detect) Entero/Rhino (PCR) Not Detected (Not Detect) - Impressions Impressions Echocardiogram 01/31/18 11:46 Impressions: LVEF 65%. Normal LV chamber size and function. Mild concentric left ventricular hypertrophy. Mild left ventricular diastolic dysfunction. Right ventricular size was not well visualized. Function appears grossly normal. Mild pulmonary hypertension. No significant valvular dysfunction. Left Ventricular Wall Motion: Rest Echo Findings All wall segments showed normal motion. Findings: Study Quality * Technically sub-optimal due to body habitus. ECG Findings * Sinus tachycardia. Left Ventricle * LVEF 65%. * Normal LV chamber size and function. * Mild concentric left ventricular hypertrophy. * Mild left ventricular diastolic dysfunction. Right Ventricle * Right ventricular size was not well visualized. Function appears grossly normal. Left Atrium * Moderately dilated left atrium. Right Atrium * Mildly dilated right atrium. Aortic Valve * Aortic valve not well visualized. * No aortic regurgitation. * No aortic stenosis. Mitral Valve * Mild mitral annular calcification * Trace mitral regurgitation. * No mitral stenosis. Tricuspid Valve * Normal tricuspid valve structure and function. * Trace tricuspid regurgitation. * Mild pulmonary hypertension. Pulmonic Valve * Pulmonic valve not well visualized. Aorta * Normally sized aortic root. Pericardium * The pericardium appears normal. IVC * Normal IVC dimensions and inspiratory collapse. Pulmonary Artery * Pulmonary artery not well visualized. Exam - Constitutional Vitals: Temp Pulse Resp BP Pulse Ox 97.7 F 83 14 143/68 80 02/01/18 07:23 02/01/18 07:23 02/01/18 07:23 02/01/18 07:23 02/01/18 07:23 - Head Head exam: Present: atraumatic, normal inspection - Respiratory Respiratory exam: Present: wheezes. Absent: decreased breath sounds, rhonchi, tachypnea - Cardiovascular Cardiovascular exam: Present: RRR, +S1, +S2 - Extremities Exam Additional comments: Both lower extremities are currently wrapped. S/P debridement of R foot. - Psychiatric Psychiatric exam: Present: normal affect - Skin Skin exam: Present: rash Consult Discharge Plan - Plan Referrals: Jc Tsai MD [Primary Care Provider] - - Attending Attestation I examined this patient and my medical decision-making was reviewed with the Resident Physician. I agree with the documented findings, disposition and treatment plan as described except to the extent set forth below. I did call and speak with Dr. Stoll regarding patient Pauly Magallanes, he still thinks the wound is very superficial and is not tracking down. He does not feel that there is osteomyelitis. The plan is to switch her back to oral antibiotics and see how she does clinically, if her inflammatory markers continue to be elevated we will consider MRI to rule out osteomyelitis. Keep in mind patient had CT of the lower extremities and no signs of osteomyelitis per Radiology report.
[2018-02-01] MEDS ORDERED: Dexmedetomidine HCl 400 MCG/100 ML MLS IVC ONE (10:17)
[2018-02-01] MEDS ORDERED: Ondansetron 4 MG/2 ML VIAL IVP ONE ×2 (11:10→12:08)
[2018-02-01] MEDS ORDERED: *HR* OxyCODONE Immed Rel 5 MG TABLET PO PRN ×2 (11:10→12:08)
--- NOTE | 2018-02-01 11:48 | Anesthesia Evaluation Post Op ---
Date of Encounter: 02/01/18 Time of Encounter: 11:46 - Vital Signs Vital Signs: BP 138/67 HR 78 RR 20 SpO2 98% - Lungs Lungs: Rhonchi (bilaterally) - Airway Airway: Non-obstructed - Cardiovascular Regular Rate - Mental Status Mental Status: Alert & Oriented, Answers Appropriately - Pain Pain Scale: 0 Pain Scale used: Numeric (1 - 10) - Nausea Vomiting Nausea Vomiting: Not Present - Hydration Hydration: NPO - Discharge PostOp Status: Transfer Patient to floor
--- NOTE | 2018-02-01 12:04 | Orthopedic Operative Note ---
Date of procedure: 02/01/18 Pre-op diagnosis: Necrotic wound/ulcer right calcaneus Post-op diagnosis: same Procedure: 02/01/18 11:58 #1: Incision and drainage and debridement of all necrotic tissue right foot/heel #2 application of PuraPly wound matrix with graft jacket and wound VAC right heel Implants: None Complications: None Anesthesia: MAC, local Local Anesthetics: 0.25% Sensorcaine HCL SubQ (cc) Surgeon: Ghasasn Stoll Was there an surveyor instrument assistant present: No Estimated blood loss (cc): 10 Tourniquet Time (Minutes): 0 Specimen: Tissue cultures right heel, swab cultures right heel Condition: stable Disposition: floor Procedure in Detail: 02/01/18 11:59 Details in summary of procedure: Patient brought to surgical suite. Sign in procedure was performed. Patient's transfer to the surgical table and positioned properly safely securely. Right foot and leg were elevated on a foam block. No tourniquet was used. Patient was identified anesthesia timeout. Right ankle prepped with alcohol 3 times. Modified ankle block carried out with local anesthetic successfully. Right foot was then prepped and draped in usual sterile manner. Wound was noted approximate 5.5 cm in diameter in length and was unstageable with large amount of dry black eschar covering the wound. Eschar is from the wound edges. That juncture #15 scalpel blade was used to perform an incision and circumferential manner down into the subcutaneous tissue. The necrotic eschar was debrided excisionally excised with #15 scalpel blade and pickup and Metzenbaum down to the superficial fascia. Necrotic tissue was sent for culture. The wound was then irrigated with saline. An swab cultures were taken as well. At that point the wound was then debrided down to the deep fascia. Plantar fascial ligament at the origin was noted to be visible in the wound. Fortunately the incision about the the wound itself afforded fresh bleeding skin edge which was viable. After debridement the wound was then found to have a small tunnel at the 8 o'clock position which would be just distal to the abductor hallucis muscle belly. The wound was then debrided with ultrasonics Misonix debrider and all nonviable tissue was excised via the ultrasound debrider. Satisfied with a clean wound with viable skin edge was then irrigated with saline. There is no obvious active bleeding necessitated use of Bovie ligature. Hemostasis was achieved with irrigation. That point a 6.9 PuraPly antimicrobial wound matrix was applied directly on the wound and into the small tunnel. That point a 5 x 5 cm graft jacket which was fenestrated on the back table was applied over the wound matrix and stapled into position. At that point a wound VAC was then applied directly to the wound. No complications ensued. Approximately 10 mL of blood loss. Patient tolerated procedure well and the anesthesia was sent to the holding room in good condition with vital signs stable. Final measurements of the wound were 6.2 cm long 6.2 cm wide, 1.3 cm deep 02/01/18 12:04
[2018-02-01] MEDS ORDERED: clonazePAM 0.5 MG TABLET PO PRN (12:08)
[2018-02-01] MEDS ORDERED: D5% in Water 1,000 ML IVC PRN (12:08)
[2018-02-01] MEDS ORDERED: Primidone 50 MG TABLET PO PRN (12:08)
[2018-02-01] MEDS ORDERED: Dextrose Gel 15 GM/37.5 ML TUBE PO PRN ×2 (12:08)
[2018-02-01] MEDS ORDERED: *HR* Dextrose 50 % in Water (Syg) 50 ML SYRINGE IVP PRN (12:08)
[2018-02-01] MEDS ORDERED: Naloxone 0.4 MG/ML INJ IVP PRN (12:08)
[2018-02-01] MEDS: Acetaminophen 325 MG TABLET PO PRN (15:58)
[2018-02-01] MEDS: Furosemide 40 MG TABLET PO SCH (15:59)
[2018-02-01] MEDS: tiZANidine 4 MG TABLET PO SCH ×2 (15:59→21:04)
--- NOTE | 2018-02-01 15:59 | Internal Med Progress Note ---
Date of Encounter: 02/01/18 Time of Encounter: 11:00 - Assessment and plan (1) Sepsis Current Visit: Yes Status: Acute Assessment and plan: Presented with leukocytosis and tachycardia, possible pneumonia, bilateral leg cellulitis, right foot ulcer. Improved. Follow up cultures and continue IV antibiotics, further plan as below. Qualifiers: Sepsis type: sepsis due to unspecified organism Qualified Code(s): A41.9 - Sepsis, unspecified organism (2) UTI (urinary tract infection) Current Visit: Yes Status: Ruled-out Qualifiers: Urinary tract infection type: site unspecified Hematuria presence: without hematuria Qualified Code(s): N39.0 - Urinary tract infection, site not specified (3) DVT prophylaxis Current Visit: Yes Status: Acute (4) Morbid obesity Current Visit: Yes Status: Chronic (5) HTN (hypertension) Current Visit: Yes Status: Chronic Assessment and plan: Resume home meds Qualifiers: Hypertension type: essential hypertension Qualified Code(s): I10 - Essential (primary) hypertension (6) HLD (hyperlipidemia) Current Visit: Yes Status: Chronic Qualifiers: Hyperlipidemia type: unspecified Qualified Code(s): E78.5 - Hyperlipidemia , unspecified (7) Venous stasis dermatitis of both lower extremities Current Visit: Yes Status: Chronic (8) Diastolic heart failure Current Visit: Yes Status: Chronic Assessment and plan: On Lasix. Continue telemetry monitoring, beta geena. Qualifiers: Heart failure chronicity: chronic Qualified Code(s): I50.32 - Chronic diastolic (congestive) heart failure (9) Ulcer of right heel Current Visit: Yes Status: Chronic Assessment and plan: Patient follows with podiatry as outpatient, consulted as inpatient. s/p I&D and debridement of all necrotic tissue right foot/heel, wound vac application today; Local wound care per podiatry recommendations. Continue IV antibiotics. Awaiting intraoperative wound cultures; PT evaluation recommend ECF; social and human services assistant consulted; Qualifiers: Non-pressure ulcer stage: unspecified non-pressure ulcer stage Qualified Code(s): L97.419 - Non-pressure chronic ulcer of right heel and midfoot with unspecified severity (10) Type 2 diabetes mellitus Current Visit: Yes Status: Chronic Assessment and plan: Blood sugars noted to be well-controlled; sliding scale insulin as needed. Diabetic diet. Qualifiers: Diabetes mellitus fci insulin use: with termite treater use Diabetes mellitus complication status: with skin complications Diabetes mellitus complication detail: with foot ulcer Qualified Code(s): E11.621 - Type 2 diabetes mellitus with foot ulcer; L97.509 - Non-pressure chronic ulcer of other part of unspecified foot with unspecified severity; Z79.4 - exterminator helper ( current) use of insulin (11) REGINALD on CPAP Current Visit: Yes Status: Chronic (12) HAP (hospital-acquired pneumonia) Current Visit: Yes Status: Suspected Assessment and plan: CTA demonstrated multifocal airspace consolidation throughout both lungs; most likely reflective of multifocal pneumonia. Patient was recently discharged from our hospital. Continue broad-spectrum IV antibiotics-vancomycin, Zosyn. Blood cultures negative. Urine legionella and strep pneumoniae antigen negative. Respiratory infection panel negative. ID on board, appreciate recommendations; (13) Elevated troponin Current Visit: Yes Status: Acute Assessment and plan: Noted to have mild troponin elevation, trending down; Could be related to sepsis and tachycardia. Cardiology evaluation noted- who agree with this, less likely NSTEMI. continue beta geena, ASA and statin, Telemetry; Echo shows preserved EF, concentric LVH, mild LV diastolic dysfunction, mild pulm HTN; - Time Spent With Patient Total time spent is greater than 50% in coordination of care (as documented) at patient's floor/unit and/or counseling patient: - Subjective Interval history: No new complaints; eating lunch in bed; returned from OR after undergoing debridement of right heel ulcer; no fever/chills, nausea, vomiting; agreeable to being discharged to ECF at this time; - Constitutional Vitals: Temp Pulse Resp BP Pulse Ox 98.2 F 99 14 192/96 80 02/01/18 15:35 02/01/18 15:35 02/01/18 15:37 02/01/18 15:35 02/01/18 15:37 General appearance: Present: cooperative, A&O X 3, morbidly obese, answers questions appropriately - Respiratory Respiratory exam: Present: CTAB. Absent: accessory muscle use, rales, rhonchi, wheezes - Cardiovascular Cardiovascular exam: Present: RRR, +S1, +S2. Absent: diastolic murmur, gallop, rubs, systolic murmur - GI/Abdominal GI/Abdominal exam: Present: normal bowel sounds, soft (obese), no peritoneal signs. Absent: distended, tenderness - Extremities Exam Extremities exam: Present: pedal edema (chronic stasis dermatitis, venous insufficiency), warm, radial pulses palpable and symmetrical. Absent: calf tenderness, cyanotic Additional comments: right heel in surgical dressing and wound vac in place with no output Internal Medicine: Result - Labs CBC & Chem 7: 02/01/18 04:43 02/01/18 04:43 Labs: Short CBC 02/01/18 Range/Units 04:43 WBC 8.3 (4.3-11.1) K/mcL Hgb 8.5 L (11.5-15.4) g/dL Hct 28.9 L (35.3-44.9) % Plt Count 207 (140-400) K/mcL Neutrophils # 5.2 (1.6-8.9) K/mcL BMP 02/01/18 04:43 Sodium 137 Potassium 4.7 Chloride 101 Carbon Dioxide 32 H BUN 29 H Creatinine 1.13 Glucose 120 H Calcium 8.3 L - ABG Interpretation ABG results: PT/INR, D-dimer PT 13.8 Seconds (9.4-12.1) H 01/29/18 17:11 Consult Discharge Plan - Plan Referrals: Jc Tsai MD [Primary Care Provider] -
[2018-02-01] MEDS: Insulin LISPRO 300 UNITS/3 ML VIAL SQ SCH ×2 (17:00→22:38)
[2018-02-01] MEDS: Lactobacillus 1 EACH CAP.SPRINK PO SCH (21:04)
[2018-02-01] MEDS: Pregabalin 75 MG CAPSULE PO SCH (21:04)
[2018-02-01] MEDS: Insulin DETEMIR 100 UNIT/ML X5UNITS SQ SCH (21:04)
[2018-02-01] MEDS: Gabapentin 300 MG CAPSULE PO SCH (21:04)
[2018-02-01] MEDS: Latanoprost 2.5 ML BOTTLE BOTH EYES SCH (21:05)
[2018-02-02] MEDS: Piperacillin/Tazobactam 3.375 GM in 0.9 % Sodium Chloride Mini Bag 100 ML IVPB SCH ×3 (02:57→17:11)
[2018-02-02] MEDS: Acetaminophen 325 MG TABLET PO PRN ×2 (04:21→21:24)
[2018-02-02] MEDS: Ipratropium Neb 0.5 MG NEBULIZER IH SCH ×2 (04:22→09:46)
[2018-02-02] MEDS: Levalbuterol Neb 0.63 MG/3 ML IH SCH ×2 (04:22→09:46)
[2018-02-02 04:57] LABS: Calcium 8.5 mg/dL (8.6-10.3); Potassium 4.4 mEq/L (3.5-5.1)
[2018-02-02] MEDS: *HR* Heparin 5,000 UNIT/ML VIAL SQ SCH ×3 (06:13→21:25)
[2018-02-02] MEDS: Furosemide 40 MG TABLET PO SCH (09:08)
[2018-02-02] MEDS: Insulin LISPRO 300 UNITS/3 ML VIAL SQ SCH ×4 (09:08→21:25)
[2018-02-02] MEDS: Diltiazem CD (24hr) 120 MG CAPSULE PO SCH (09:09)
[2018-02-02] MEDS: Lactobacillus 1 EACH CAP.SPRINK PO SCH ×2 (09:09→21:25)
[2018-02-02] MEDS: Aspirin 81 MG TAB.CHEW PO SCH (09:09)
[2018-02-02] MEDS: tiZANidine 4 MG TABLET PO SCH ×3 (09:09→21:25)
[2018-02-02] MEDS: Thiamine (B-1) 100 MG TABLET PO SCH (09:09)
[2018-02-02] MEDS: Pregabalin 75 MG CAPSULE PO SCH ×2 (09:09→21:25)
--- NOTE | 2018-02-02 09:38 | Infectious Disease Progress No ---
Date of Encounter: 02/02/18 Time of Encounter: 09:45 - Assessment and Plan (1) Sepsis Current Visit: No Status: Resolved Met 3/4 SIRS criteria, with leukocytosis, tachycardia, tachypnea - Known source of infection with multifocal pneumonia, UTI, and cellulitis - Home health nurse reported a fever of 102 before admission - Patient was given IV fluid resuscitation in the emergency department - Blood cultures are ordered and are currently pending - Currently on IV Zosyn Qualifiers: Sepsis type: sepsis due to unspecified organism Qualified Code(s): A41.9 - Sepsis, unspecified organism (2) UTI (urinary tract infection) Current Visit: Yes Status: Ruled-out Patient was recently discharged from hospital on 01/23; during hospitalization, patient was discharged home to complete a course of doxycycline fosfomycin until 01/30 for UTI with ESBL Klebsiella - UA demonstrates large amount of leukocyte esterase, WBC TNTC - Urine culture from 01/30 is negative - Continue IV antibiotics as above Qualifiers: Urinary tract infection type: site unspecified Hematuria presence: without hematuria Qualified Code(s): N39.0 - Urinary tract infection, site not specified (3) HAP (hospital-acquired pneumonia) Current Visit: Yes Status: Suspected - Patient was recently discharged on 01/23 - On arrival, SPO2 was 84% on room air; heart rate in the 130s - Chest x-ray demonstrated increasing pulmonary edema with worsening basilar atelectasis - CTA demonstrated multifocal airspace consolidation throughout both lungs; most likely reflective of multifocal pneumonia. - Continue bronchodilators and incentive spirometry - IV antibiotics as above - Resp. infection panel negative - Legionella and strep antigen both negative - Sputum cx pending (4) Ulcer of right heel Current Visit: Yes Status: Chronic - Patient has necrotic right heel ulcer and bilateral lower extremity cellulitis - Normally sees tire technician Dr. Stoll - CT scan of the legs was negative for osteomyelitis; did not demonstrate extensive subcutaneous edema - Underwent surgical debridement; would appreciate recommendations Qualifiers: Non-pressure ulcer stage: unspecified non-pressure ulcer stage Qualified Code(s): L97.419 - Non-pressure chronic ulcer of right heel and midfoot with unspecified severity (5) Venous stasis dermatitis of both lower extremities Current Visit: Yes Status: Chronic - CT of the legs demonstrated extensive subcutaneous edema skin thickening of the bilateral lower extremities - Findings are likely reflective of chronic venous stasis/lymphedema versus cellulitis - No organized drainable fluid collection has been identified - Continue wound care (6) Diastolic heart failure Current Visit: Yes Status: Chronic - Acute on chronic diastolic CHF exacerbation - Presented with shortness of breath, pedal edema, rales on exam, and tachycardia with heart rate in the 130s - CXR revealed increasing pulmonary edema with worsening bibasilar atelectasis. - Echo 11/11/17 revealed LVEF 55-60%, mild concentric LVH - Management per primary team Qualifiers: Heart failure chronicity: chronic Qualified Code(s): I50.32 - Chronic diastolic (congestive) heart failure (7) Type 2 diabetes mellitus Current Visit: Yes Status: Chronic - HGB a1c level 11% on 09/20/17 - Continue basal and SSI - Monitor accu-checks Qualifiers: Diabetes mellitus ad terminal makeup operator insulin use: with ad terminal makeup operator use Diabetes mellitus complication status: with skin complications Diabetes mellitus complication detail: with foot ulcer Qualified Code(s): E11.621 - Type 2 diabetes mellitus with foot ulcer; L97.509 - Non-pressure chronic ulcer of other part of unspecified foot with unspecified severity; Z79.4 - care home ( current) use of insulin (8) Thyroid nodule Current Visit: Yes Status: Acute - Incidentally found on chest CTA on 01/29; stable 2.4 cm low attenuation nodule within the left thyroid lobe. - Follow-up the outpatient setting (9) DOROTHEA (acute kidney injury) Current Visit: Yes Status: Acute Cr has increased to 1.26 - Subjective Interval history: Patient was seen and examined at bedside this morning. Rash on R arm improving. S/p Incision and drainage and debridement of all necrotic tissue R foot/heel and application of PuraPly wound matrix with graft jacket and wound VAC right heel. Denies any pain in her foot. Denies fever, chills, shortness of breath, or abdominal pain. No further complaints at this time. Infect Dis PN-Objective Data - Labs CBC & Chem 7: 02/01/18 04:43 02/02/18 04:09 Labs: Laboratory Results - last 24 hr 02/01/18 02/01/18 02/01/18 07:26 14:06 16:42 Sodium Potassium Chloride Carbon Dioxide BUN Creatinine Est GFR ( Amer) Est GFR (Non-Af Amer) BUN/Creatinine Ratio Glucose POC Glucose 127 H 159 H Calculated Osmolality Calcium Random Vancomycin 23 02/02/18 02/02/18 04:09 04:09 Sodium 138 Potassium 4.4 Chloride 100 Carbon Dioxide 34 H BUN 28 H Creatinine 1.26 H Est GFR ( Amer) 53 L Est GFR (Non-Af Amer) 44 L BUN/Creatinine Ratio 22 Glucose 108 H POC Glucose Calculated Osmolality 292 Calcium 8.5 L Random Vancomycin 18 Cultures: Serology 01/30/18 Range/Units 18:41 Chlamy pneumoniae PCR Not Detected (Not Detect) Adenovirus (PCR) Not Detected (Not Detect) B. pertussis DNA (PCR) Not Detected (Not Detect) B.parapertussis DNA PCR Not Detected (Not Detect) Coronavirus OC43 (PCR) Not Detected (Not Detect) Coronavirus HKU1 (PCR) Not Detected (Not Detect) Coronavirus 229E (PCR) Not Detected (Not Detect) Coronavirus NL63 (PCR) Not Detected (Not Detect) Human Metapneumovir PCR Not Detected (Not Detect) Influenza A (H1) PCR Not Detected (Not Detect) Influ A (H1N1/09) PCR Not Detected (Not Detect) Influenza A (H3) PCR Not Detected (Not Detect) Influenza A Untype (PCR) Not Detected (Not Detect) Influenza Type B (PCR) Not Detected (Not Detect) M.pneumoniae DNA (PCR) Not Detected (Not Detect) Parainfluenza 1 (PCR) Not Detected (Not Detect) Parainfluenza 2 (PCR) Not Detected (Not Detect) Parainfluenza 3 (PCR) Not Detected (Not Detect) Parainfluenza 4 (PCR) Not Detected (Not Detect) RSV (PCR) Not Detected (Not Detect) Entero/Rhino (PCR) Not Detected (Not Detect) Exam - Constitutional Vitals: Temp Pulse Resp BP Pulse Ox 97.8 F 73 16 120/59 91 02/02/18 07:13 02/02/18 07:13 02/02/18 07:13 02/02/18 07:13 02/02/18 07:13 - Additional findings Additional findings: - Head Head exam: Present: atraumatic, normal inspection - Respiratory Respiratory exam: Present: wheezes. Absent: decreased breath sounds, rhonchi, tachypnea - Cardiovascular Cardiovascular exam: Present: RRR, +S1, +S2 - Extremities Exam Additional comments: Both lower extremities are currently wrapped. S/P debridement of R foot. - Psychiatric Psychiatric exam: Present: normal affect - Skin Skin exam: Present: rash Consult Discharge Plan - Plan Referrals: Jc Tsai MD [Primary Care Provider] - - Attending Attestation I examined this patient and my medical decision-making was reviewed with the Resident Physician. I agree with the documented findings, disposition and treatment plan as described except to the extent set forth below.
[2018-02-02] MEDS ORDERED: Ipratropium/Albuterol Neb 3 ML IH PRN (11:21)
--- NOTE | 2018-02-02 16:27 | Internal Med Progress Note ---
Date of Encounter: 02/02/18 Time of Encounter: 11:05 - Assessment and plan (1) Sepsis Current Visit: Yes Status: Acute Assessment and plan: Presented with leukocytosis and tachycardia, possible pneumonia, bilateral leg cellulitis, right foot ulcer. Improved. Follow up cultures and continue IV antibiotics, further plan as below. Qualifiers: Sepsis type: sepsis due to unspecified organism Qualified Code(s): A41.9 - Sepsis, unspecified organism (2) UTI (urinary tract infection) Current Visit: Yes Status: Ruled-out Qualifiers: Urinary tract infection type: site unspecified Hematuria presence: without hematuria Qualified Code(s): N39.0 - Urinary tract infection, site not specified (3) DVT prophylaxis Current Visit: Yes Status: Acute (4) Morbid obesity Current Visit: Yes Status: Chronic (5) HTN (hypertension) Current Visit: Yes Status: Chronic Assessment and plan: Resume home meds Qualifiers: Hypertension type: essential hypertension Qualified Code(s): I10 - Essential (primary) hypertension (6) HLD (hyperlipidemia) Current Visit: Yes Status: Chronic Qualifiers: Hyperlipidemia type: unspecified Qualified Code(s): E78.5 - Hyperlipidemia , unspecified (7) Venous stasis dermatitis of both lower extremities Current Visit: Yes Status: Chronic (8) Diastolic heart failure Current Visit: Yes Status: Chronic Assessment and plan: Hold Lasix due to worsening serum creatinine. Continue telemetry monitoring, beta geena. Qualifiers: Heart failure chronicity: chronic Qualified Code(s): I50.32 - Chronic diastolic (congestive) heart failure (9) Ulcer of right heel Current Visit: Yes Status: Chronic Assessment and plan: Patient follows with podiatry, consulted as inpatient. s/p I&D and debridement of all necrotic tissue right foot/heel, wound vac application on 02/01/18; Local wound care per podiatry recommendations. Continue IV antibiotics- vancomycin and Zosyn, patient may need adjunct faculty for medical terminology IV antibiotics due to elevated ESR and CRP. Preliminary intraoperative wound cultures grow GNR; ID on board; PT evaluation recommend ECF; social service coordinator on board; Qualifiers: Non-pressure ulcer stage: unspecified non-pressure ulcer stage Qualified Code(s): L97.419 - Non-pressure chronic ulcer of right heel and midfoot with unspecified severity (10) Type 2 diabetes mellitus Current Visit: Yes Status: Chronic Assessment and plan: Blood sugars noted to be well-controlled; sliding scale insulin as needed. Diabetic diet. 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 Patient was recently discharged from our hospital. Continue broad-spectrum IV antibiotics-vancomycin, Zosyn. Blood cultures negative. Urine legionella and strep pneumoniae antigen negative. Respiratory infection panel negative. ID on board, appreciate recommendations; (13) Elevated troponin Current Visit: Yes Status: Acute (14) DOROTHEA (acute kidney injury) Current Visit: Yes Status: Acute Assessment and plan: difficult to assess if patient has DOROTHEA vs CKD; probably does have some diabetic nephropathy; GFR has been widely fluctuating since October 2017, between 15-55; creatinine currently worse likely due to meds- Vancomycin/Lasix, infection; hold Lasix and continue to monitor; - Time Spent With Patient Total time spent is greater than 50% in coordination of care (as documented) at patient's floor/unit and/or counseling patient: - Subjective Interval history: No new complaints; no fever/chills, nausea, vomiting; agreeable to being discharged to F; reports right foot pain; - Constitutional Vitals: Temp Pulse Resp BP Pulse Ox 97.7 F 78 18 133/63 92 02/02/18 15:34 02/02/18 15:34 02/02/18 15:34 02/02/18 15:34 02/02/18 15:34 General appearance: Present: cooperative, A&O X 3, morbidly obese, answers questions appropriately - Respiratory Respiratory exam: Present: CTAB. Absent: accessory muscle use, rales, rhonchi, wheezes - Cardiovascular Cardiovascular exam: Present: RRR, +S1, +S2. Absent: diastolic murmur, gallop, rubs, systolic murmur - GI/Abdominal GI/Abdominal exam: Present: normal bowel sounds, soft (obese), no peritoneal signs. Absent: distended, tenderness - Extremities Exam Extremities exam: Present: pedal edema, warm, radial pulses palpable and symmetrical. Absent: calf tenderness, cyanotic Additional comments: right foot in surgical dressing, wound vac in place Internal Medicine: Result - Labs CBC & Chem 7: 02/01/18 04:43 02/02/18 04:09 Labs: BMP 02/02/18 04:09 Sodium 138 Potassium 4.4 Chloride 100 Carbon Dioxide 34 H BUN 28 H Creatinine 1.26 H Glucose 108 H Calcium 8.5 L - ABG Interpretation ABG results: PT/INR, D-dimer PT 13.8 Seconds (9.4-12.1) H 01/29/18 17:11 Consult Discharge Plan - Plan Referrals: Jc Tsai MD [Primary Care Provider] -
--- NOTE | 2018-02-02 16:40 | Podiatry Progress Note ---
Date of Encounter: 02/02/18 Time of Encounter: 12:00 - Assessment and Plan (1) Diabetes mellitus Current Visit: No Status: Chronic strict control to limit complications Qualifiers: Diabetes mellitus type: type 2 Diabetes mellitus parts counterman insulin use: with parts counterman use Diabetes mellitus complication status: with skin complications Diabetes mellitus complication detail: with other skin complication Qualified Code(s): E11.628 - Type 2 diabetes mellitus with other skin complications; Z79.4 - termite exterminator helper (current) use of insulin (2) Diabetic foot ulcer Current Visit: Yes Status: Chronic s/p #1: Incision and drainage and debridement of all necrotic tissue right foot /heel, #2 application of PuraPly wound matrix with graft jacket and wound VAC right heel per on 02/01/18 Prelim wound culture showing GNR- await results to finalize antibiotic coverage - continue to monitor WBC and cellulitis. Will need placement to ECF for wound vac and antibiotic administration SW on board and managing placement Patient will likely be in place for weekend. Will be Tue [facility] Sat wound vac changes. Patient will need wound vac changed per nurse. Please remove carefully. Drape skin with tegaderm for protection. Apply adaptic over graft jacket, apply small black simplace sponge, 125mmHg suction. Accurate documentation of output. Will place orders. Cover with dry kerlix for protection Continue allevyn to left great toe. Qualifiers: Diabetic foot ulcer location: midfoot Diabetes mellitus type: type 2 Laterality: right Non-pressure ulcer stage: limited to breakdown of skin Qualified Code(s): E11.621 - Type 2 diabetes mellitus with foot ulcer; L97.411 - Non-pressure chronic ulcer of right heel and midfoot limited to breakdown of skin Subjective Interval history: s/p #1: Incision and drainage and debridement of all necrotic tissue right foot /heel, #2 application of PuraPly wound matrix with graft jacket and wound VAC right heel per on 02/01/18 Patient resting comfortably in bed on arrival. Wound vac intact and running without issue. Patient sitting up eating lunch. Denies any fevers, chills, n/v or flu like symptoms. Patient denies any issues at this time. Objective - Vital Signs Vital Signs: Vital Signs Temp Pulse Resp BP Pulse Ox 02/02/18 15:34 97.7 F 78 18 133/63 92 02/02/18 11:07 98.1 F 65 16 104/57 97 02/02/18 07:13 97.8 F 73 16 120/59 91 02/02/18 04:58 97.7 F 67 17 123/89 94 02/02/18 04:22 16 95 02/02/18 00:30 98.2 F 67 15 137/69 95 02/01/18 22:16 99.2 F 84 15 136/63 96 02/01/18 21:47 16 95 02/01/18 21:00 96 02/01/18 18:21 165/64 Intake and Output 02/02/18 02/02/18 02/02/18 07:59 15:59 23:59 Intake Total 220 / 220 840 / 840 Output Total 450 / 450 850 / 850 Balance -230 / -230 -10 / -10 Intake: IV Fluids 100 / 100 Zosyn 3.375 GM In 0.9 % Sodium 100 / 100 Chloride (Mini-Bag +) 100 ML @ 25 mls/hr IVPB Q8H [facility] Rx#: [id number] Oral 120 / 120 840 / 840 Output: Urine 0 / 0 Catheter 450 / 450 850 / 850 Other: Meal Breakfast Percent of Meal Consumed 100% Weight 129.2 kg Blood Glucose* 100 161 Patient Weight 02/02/18 23:59 Weight 129.2 kg - Exam Exam: General appearance: alert awake oriented X 3. Calm and pleasant, no acute distress.. Vascular: Unable to palpate pedal pulses due to edema, No evidence of cyanosis, pallor or rubor, Edema graded at 2+/4, Skin temperature warm, Homans Sign negative, capillary refill time is immediate to digits.. Integument: Skin with decreased turgor, decreased subcutaneous tissue, skin thin and shiny with trophic changes associated with comorbidities as described in history. Erythema to BLE, right lower leg with multiple small clear fluid filled blisters, skin is warm, no lymphangitis, clearing of erythema to bilateral ankles and knees, skin changes are consistent with venous stasis dermatitis. wet slough noted to the medial aspect of toe #1 [address] foot[address] Allevyn in place. Scattered dried scabs to the anterior aspect of the left lower leg, Right foot, wound vac intact- will not remove at this time. Dry Dressing covering. Scant serosang drainage to canister. Good seal noted. Toes warm and pink - Lab Result Diagrams: 02/01/18 04:43 02/02/18 04:09 Labs: Abnormal lab results RBC 3.49 M/mcL (3.82-4.97) L 02/01/18 04:43 Hgb 8.5 g/dL (11.5-15.4) L 02/01/18 04:43 Hct 28.9 % (35.3-44.9) L 02/01/18 04:43 MCV 82.8 fL (83.0-100.0) L 02/01/18 04:43 MCH 24.4 pg (28.0-33.3) L 02/01/18 04:43 MCHC 29.4 g/dL (31.6-35.5) L 02/01/18 04:43 RDW 19.3 % (11.5-14.5) H 02/01/18 04:43 ESR >= 130 mm/hr (0-15) H 01/29/18 17:11 PT 13.8 Seconds (9.4-12.1) H 01/29/18 17:11 Carbon Dioxide 34 mEq/L (23-29) H 02/02/18 04:09 BUN 28 mg/dL (6-20) H 02/02/18 04:09 Creatinine 1.26 mg/dL (0.60-1.20) H 02/02/18 04:09 Est GFR ( Amer) 53 (> 60) L 02/02/18 04:09 Est GFR (Non-Af Amer) 44 (> 60) L 02/02/18 04:09 Glucose 108 mg/dL (70-105) H 02/02/18 04:09 POC Glucose 159 mg/dL (70-99) H 02/01/18 16:42 Calcium 8.5 mg/dL (8.6-10.3) L 02/02/18 04:09 Magnesium 1.5 mg/dL (1.6-2.6) L 01/30/18 04:41 Direct Bilirubin 0.3 mg/dL (0.0-0.2) H 01/29/18 17:11 AST 11 Units/L (13-39) L 07/09/18 17:11 Troponin I 0.19 ng/mL (< 0.04) H* 01/30/18 15:58 C-Reactive Protein 140 mg/L (Less than 10) H 01/29/18 17:11 B-Natriuretic Peptide 357 pg/mL (Less than 100) H 01/30/18 04:41 Albumin 2.7 g/dL (3.5-5.7) L 01/29/18 17:11 Globulin 5.1 g/dL (2.4-3.5) H 01/29/18 17:11 Albumin/Globulin Ratio 0.5 (1.1-2.2) L 01/29/18 17:11 Lipase 84 Units/L (11-82) H 01/29/18 17:11 Urine Clarity Turbid (Clear) A 01/29/18 17:15 Urine Protein 100 mg/dL (Neg-Trace) H 01/29/18 17:15 Urine Glucose (UA) 500 mg/dL (Normal) H 01/29/18 17:15 Urine Blood Moderate (Negative) H 01/29/18 17:15 Ur Leukocyte Esterase Large (Negative) H 01/29/18 17:15 Urine Microscopic RBC 15-30 per hpf (0-3) H 01/29/18 17:15 Urine Microscopic WBC TNTC per hpf (0-3) H 01/29/18 17:15 Ur Squamous Epith Cells Many per lpf (None-Few) H 01/29/18 17:15 Ur Culture Indicated? NO. (NO) A 01/29/18 17:15 Vancomycin Trough 31 mcg/mL (5-10) H 01/31/18 22:00 Microbiology, Last 48 Hours 02/01/18 10:50 Wound Culture - Preliminary Right Foot Gram Negative Haim Consult Discharge Plan - Plan Referrals: Jc Tsai MD [Primary Care Provider] -
[2018-02-02] MEDS: *HR* OxyCODONE Immed Rel 5 MG TABLET PO PRN (17:10)
[2018-02-02] MEDS: Latanoprost 2.5 ML BOTTLE BOTH EYES SCH (21:24)
[2018-02-02] MEDS: Insulin DETEMIR 100 UNIT/ML X5UNITS SQ SCH (21:24)
[2018-02-02] MEDS: Gabapentin 300 MG CAPSULE PO SCH (21:25)
[2018-02-03] MEDS: Piperacillin/Tazobactam 3.375 GM in 0.9 % Sodium Chloride Mini Bag 100 ML IVPB SCH ×3 (02:54→17:50)
[2018-02-03 05:59] LABS: Calcium 8.4 mg/dL (8.6-10.3); Potassium 4.5 mEq/L (3.5-5.1)
[2018-02-03] MEDS: *HR* Heparin 5,000 UNIT/ML VIAL SQ SCH ×3 (06:19→22:54)
[2018-02-03] MEDS: *HR* OxyCODONE Immed Rel 5 MG TABLET PO PRN (06:20)
[2018-02-03] MEDS: Insulin LISPRO 300 UNITS/3 ML VIAL SQ SCH ×4 (07:59→22:55)
[2018-02-03] MEDS: Thiamine (B-1) 100 MG TABLET PO SCH (08:37)
[2018-02-03] MEDS: Aspirin 81 MG TAB.CHEW PO SCH (08:37)
[2018-02-03] MEDS: Pregabalin 75 MG CAPSULE PO SCH ×2 (08:37→22:54)
[2018-02-03] MEDS: Lactobacillus 1 EACH CAP.SPRINK PO SCH ×2 (08:37→22:55)
[2018-02-03] MEDS: Diltiazem CD (24hr) 120 MG CAPSULE PO SCH (08:37)
[2018-02-03] MEDS: tiZANidine 4 MG TABLET PO SCH ×3 (08:37→22:55)
--- NOTE | 2018-02-03 15:41 | Internal Med Progress Note ---
Date of Encounter: 02/03/18 Time of Encounter: 10:45 - Assessment and plan (1) Sepsis Current Visit: Yes Status: Acute Assessment and plan: Presented with leukocytosis and tachycardia, possible pneumonia, bilateral leg cellulitis, right foot ulcer. Improved. Follow up final cultures and continue IV antibiotics, further plan as below. Qualifiers: Sepsis type: sepsis due to unspecified organism Qualified Code(s): A41.9 - Sepsis, unspecified organism (2) UTI (urinary tract infection) Current Visit: Yes Status: Ruled-out Qualifiers: Urinary tract infection type: site unspecified Hematuria presence: without hematuria Qualified Code(s): N39.0 - Urinary tract infection, site not specified (3) DVT prophylaxis Current Visit: Yes Status: Acute (4) Morbid obesity Current Visit: Yes Status: Chronic (5) HTN (hypertension) Current Visit: Yes Status: Chronic Qualifiers: Hypertension type: essential hypertension Qualified Code(s): I10 - Essential (primary) hypertension (6) HLD (hyperlipidemia) Current Visit: Yes Status: Chronic Qualifiers: Hyperlipidemia type: unspecified Qualified Code(s): E78.5 - Hyperlipidemia , unspecified (7) Venous stasis dermatitis of both lower extremities Current Visit: Yes Status: Chronic (8) Diastolic heart failure Current Visit: Yes Status: Chronic Assessment and plan: Hold Lasix due to worsening serum creatinine. Continue telemetry monitoring, beta geena. Qualifiers: Heart failure chronicity: chronic Qualified Code(s): I50.32 - Chronic diastolic (congestive) heart failure (9) Ulcer of right heel Current Visit: Yes Status: Chronic Assessment and plan: Patient follows with podiatry, consulted as inpatient. s/p I&D and debridement of all necrotic tissue right foot/heel, wound vac application on 02/01/18; Local wound care per podiatry recommendations. 2 sets of wound cultures, one growing ESBL Klebsiella, the other growing 2 different gram-negative rods. Continue IV Zosyn, and add IV ertapenem and hold vancomycin for now. patient may need terminal operator IV antibiotics due to elevated ESR and CRP. ID on board; PT evaluation recommend ECF; social work program coordinator on board; Qualifiers: Non-pressure ulcer stage: unspecified non-pressure ulcer stage Qualified Code(s): L97.419 - Non-pressure chronic ulcer of right heel and midfoot with unspecified severity (10) Type 2 diabetes mellitus Current Visit: Yes Status: Chronic Assessment and plan: Blood sugars noted to be well-controlled; sliding scale insulin as needed. Diabetic diet. Qualifiers: Diabetes mellitus terminal operator insulin use: with nursing home use Diabetes mellitus complication status: with skin complications Diabetes mellitus complication detail: with foot ulcer Qualified Code(s): E11.621 - Type 2 diabetes mellitus with foot ulcer; L97.509 - Non-pressure chronic ulcer of other part of unspecified foot with unspecified severity; Z79.4 - prison ( current) use of insulin (11) REGINALD on CPAP Current Visit: Yes Status: Chronic (12) HAP (hospital-acquired pneumonia) Current Visit: Yes Status: Suspected Assessment and plan: CTA demonstrated multifocal airspace consolidation throughout both lungs; most likely reflective of multifocal pneumonia. Patient was recently discharged from our hospital. Continue broad-spectrum IV antibiotics-Ertapenem and Zosyn due to above reasons. Blood cultures negative. Urine legionella and strep pneumoniae antigen negative. Respiratory infection panel negative. ID on board, appreciate recommendations; (13) Elevated troponin Current Visit: Yes Status: Acute (14) DOROTHEA (acute kidney injury) Current Visit: Yes Status: Acute Assessment and plan: difficult to assess if patient has DOROTHEA vs CKD; probably does have some diabetic nephropathy; GFR has been widely fluctuating since October 2017, between 15-55; creatinine currently worse at 1.3, likely due to meds- Vancomycin/Lasix, infection; hold Lasix and continue to monitor; Renal ultrasound shows no hydronephrosis. - Time Spent With Patient Total time spent is greater than 50% in coordination of care (as documented) at patient's floor/unit and/or counseling patient: - Subjective Interval history: No new complaints; no fever/chills, nausea, vomiting; good urine output noted in [facility]; at bedside; - Constitutional Vitals: Temp Pulse Resp BP Pulse Ox 98.3 F 68 16 112/70 90 02/03/18 11:09 02/03/18 11:09 02/03/18 11:09 02/03/18 11:09 02/03/18 11:09 General appearance: Present: cooperative, A&O X 3, morbidly obese, answers questions appropriately - Respiratory Respiratory exam: Present: CTAB. Absent: accessory muscle use, rales, rhonchi, wheezes - Cardiovascular Cardiovascular exam: Present: RRR, +S1, +S2. Absent: diastolic murmur, gallop, rubs, systolic murmur - GI/Abdominal GI/Abdominal exam: Present: normal bowel sounds, soft (obese), no peritoneal signs. Absent: distended, tenderness - Extremities Exam Extremities exam: Present: warm, radial pulses palpable and symmetrical. Absent : calf tenderness, cyanotic, pedal edema Additional comments: right foot in surgical dressing and wound vac in place - Neurological Exam Neurological exam: Present: CN II-XII intact, oriented X3, no focal deficits. Absent: pronater drift, facial droop, speech deficit Internal Medicine: Result - Labs CBC & Chem 7: 02/01/18 04:43 02/03/18 05:28 Labs: BMP 02/03/18 05:28 Sodium 138 Potassium 4.5 Chloride 99 Carbon Dioxide 35 H BUN 28 H Creatinine 1.30 H Glucose 106 H Calcium 8.4 L - ABG Interpretation ABG results: PT/INR, D-dimer PT 13.8 Seconds (9.4-12.1) H 01/29/18 17:11 - Impressions Impressions Retroperitoneum Ultrasound 02/03/18 14:00 IMPRESSION: 1. No evidence of hydronephrosis. D/ / João Garcia MD / João Garcia MD Interpreting Provider: João Garcia MD Consult Discharge Plan - Plan Referrals: Jc Tsai MD [Primary Care Provider] -
[2018-02-03] MEDS: Ertapenem 1,000 MG in 0.9 % Sodium Chloride Mini Bag 100 ML IVPB SCH (16:13)
[2018-02-03] MEDS: Gabapentin 300 MG CAPSULE PO SCH (22:54)
[2018-02-03] MEDS: Insulin DETEMIR 100 UNIT/ML X5UNITS SQ SCH (22:55)
[2018-02-03] MEDS: Latanoprost 2.5 ML BOTTLE BOTH EYES SCH (22:56)
[2018-02-04] MEDS: Piperacillin/Tazobactam 3.375 GM in 0.9 % Sodium Chloride Mini Bag 100 ML IVPB SCH ×3 (05:03→17:59)
[2018-02-04] MEDS: *HR* Heparin 5,000 UNIT/ML VIAL SQ SCH ×3 (05:04→20:35)
[2018-02-04 05:48] LABS: Calcium 7.9 mg/dL (8.6-10.3); Potassium 5.4 mEq/L (3.5-5.1)
[2018-02-04] MEDS: Insulin LISPRO 300 UNITS/3 ML VIAL SQ SCH ×4 (07:46→20:34)
[2018-02-04] MEDS: Lactobacillus 1 EACH CAP.SPRINK PO SCH ×2 (08:56→20:33)
[2018-02-04] MEDS: Thiamine (B-1) 100 MG TABLET PO SCH (08:56)
[2018-02-04] MEDS: Diltiazem CD (24hr) 120 MG CAPSULE PO SCH (08:56)
[2018-02-04] MEDS: Aspirin 81 MG TAB.CHEW PO SCH (08:56)
[2018-02-04] MEDS: Pregabalin 75 MG CAPSULE PO SCH ×2 (08:57→20:33)
[2018-02-04] MEDS: tiZANidine 4 MG TABLET PO SCH ×3 (08:57→20:34)
[2018-02-04] MEDS: Ertapenem 1,000 MG in 0.9 % Sodium Chloride Mini Bag 100 ML IVPB SCH (08:57)
[2018-02-04] MEDS ORDERED: Aminoglycoside Consult 1 EACH MC ONE (09:51)
--- NOTE | 2018-02-04 16:36 | Internal Med Progress Note ---
Date of Encounter: 02/04/18 Time of Encounter: 10:40 - Assessment and plan (1) Sepsis Current Visit: Yes Status: Resolved Assessment and plan: Presented with leukocytosis and tachycardia, possible pneumonia, bilateral leg cellulitis, right foot ulcer. Improved. Follow up final cultures and continue IV antibiotics, further plan as below. Qualifiers: Sepsis type: sepsis due to unspecified organism Qualified Code(s): A41.9 - Sepsis, unspecified organism (2) UTI (urinary tract infection) Current Visit: Yes Status: Ruled-out Qualifiers: Urinary tract infection type: site unspecified Hematuria presence: without hematuria Qualified Code(s): N39.0 - Urinary tract infection, site not specified (3) DVT prophylaxis Current Visit: Yes Status: Acute (4) Morbid obesity Current Visit: Yes Status: Chronic (5) HTN (hypertension) Current Visit: Yes Status: Chronic Qualifiers: Hypertension type: essential hypertension Qualified Code(s): I10 - Essential (primary) hypertension (6) HLD (hyperlipidemia) Current Visit: Yes Status: Chronic Qualifiers: Hyperlipidemia type: unspecified Qualified Code(s): E78.5 - Hyperlipidemia , unspecified (7) Venous stasis dermatitis of both lower extremities Current Visit: Yes Status: Chronic (8) Diastolic heart failure Current Visit: Yes Status: Chronic Qualifiers: Heart failure chronicity: chronic Qualified Code(s): I50.32 - Chronic diastolic (congestive) heart failure (9) Ulcer of right heel Current Visit: Yes Status: Chronic Assessment and plan: Patient follows with podiatry, consulted as inpatient. s/p I&D and debridement of all necrotic tissue right foot/heel, wound vac application on 02/01/18; Local wound care per podiatry recommendations. Wound cultures growing ESBL Klebsiella, and another gram-negative nilo. Continue IV Zosyn and IV ertapenem for now. Patient may need laborer marine terminal IV antibiotics due to elevated ESR and CRP. ID on board; PT evaluation recommend ECF; vp digital marketing social media and crm on board; Qualifiers: Non-pressure ulcer stage: unspecified non-pressure ulcer stage Qualified Code(s): L97.419 - Non-pressure chronic ulcer of right heel and midfoot with unspecified severity (10) Type 2 diabetes mellitus Current Visit: Yes Status: Chronic Qualifiers: Diabetes mellitus senior living insulin use: with laborer marine terminal use Diabetes mellitus complication status: with skin complications Diabetes mellitus complication detail: with foot ulcer Qualified Code(s): E11.621 - Type 2 diabetes mellitus with foot ulcer; L97.509 - Non-pressure chronic ulcer of other part of unspecified foot with unspecified severity; Z79.4 - terminal superintendent ( current) use of insulin (11) REGINALD on CPAP Current Visit: Yes Status: Chronic (12) HAP (hospital-acquired pneumonia) Current Visit: Yes Status: Suspected (13) Elevated troponin Current Visit: Yes Status: Acute (14) DOROTHEA (acute kidney injury) Current Visit: Yes Status: Acute Assessment and plan: difficult to assess if patient has DOROTHEA vs CKD; probably does have some diabetic nephropathy; GFR has been widely fluctuating since October 2017, between 15-55; creatinine currently stable at 1.26; hold Lasix and continue to monitor; Renal ultrasound shows no hydronephrosis. - Time Spent With Patient Total time spent is greater than 50% in coordination of care (as documented) at patient's floor/unit and/or counseling patient: - Subjective Interval history: No new complaints; no fever/chills, nausea, vomiting; good urine output noted in [facility]; awaiting rehab placement; - Constitutional Vitals: Temp Pulse Resp BP Pulse Ox 98.3 F 74 16 142/74 94 02/04/18 15:03 02/04/18 15:03 02/04/18 15:03 02/04/18 15:03 02/04/18 15:03 General appearance: Present: cooperative, A&O X 3, morbidly obese, answers questions appropriately - Respiratory Respiratory exam: Present: CTAB. Absent: accessory muscle use, rales, rhonchi, wheezes - Cardiovascular Cardiovascular exam: Present: RRR, +S1, +S2. Absent: diastolic murmur, gallop, rubs, systolic murmur Internal Medicine: Result - Labs CBC & Chem 7: 02/01/18 04:43 02/04/18 04:27 Labs: BMP 02/04/18 04:27 Sodium 135 L Potassium 5.4 H Chloride 99 Carbon Dioxide 28 BUN 27 H Creatinine 1.26 H Glucose 128 H Calcium 7.9 L - ABG Interpretation ABG results: PT/INR, D-dimer PT 13.8 Seconds (9.4-12.1) H 01/29/18 17:11 Consult Discharge Plan - Plan Referrals: Jc Tsai MD [Primary Care Provider] -
[2018-02-04] MEDS: Gabapentin 300 MG CAPSULE PO SCH (20:33)
[2018-02-04] MEDS: Latanoprost 2.5 ML BOTTLE BOTH EYES SCH (20:34)
[2018-02-04] MEDS: Insulin DETEMIR 100 UNIT/ML X5UNITS SQ SCH (20:34)
[2018-02-05] MEDS: Piperacillin/Tazobactam 3.375 GM in 0.9 % Sodium Chloride Mini Bag 100 ML IVPB SCH ×3 (04:27→17:25)
[2018-02-05 05:33] LABS: BUN/Creatinine Ratio 24 (6-26); Blood Urea Nitrogen 27 mg/dL (6-20); Calcium 8.6 mg/dL (8.6-10.3); Carbon Dioxide 34 mEq/L (23-29); Chloride 98 mEq/L (98-107); Glucose 111 mg/dL (70-105); Osmolality,Calculated 288 (280-300); Potassium 4.5 mEq/L (3.5-5.1); Sodium 136 mEq/L (136-145); eGFR For Non-African Americans 51 (> 60)
[2018-02-05] MEDS: Lactobacillus 1 EACH CAP.SPRINK PO SCH ×2 (08:36→22:17)
[2018-02-05] MEDS: Pregabalin 75 MG CAPSULE PO SCH ×2 (08:36→22:19)
[2018-02-05] MEDS: Aspirin 81 MG TAB.CHEW PO SCH (08:36)
[2018-02-05] MEDS: Thiamine (B-1) 100 MG TABLET PO SCH (08:37)
[2018-02-05] MEDS: Ertapenem 1,000 MG in 0.9 % Sodium Chloride Mini Bag 100 ML IVPB SCH (08:37)
[2018-02-05] MEDS: *HR* Heparin 5,000 UNIT/ML VIAL SQ SCH ×3 (08:37→22:24)
[2018-02-05] MEDS: Diltiazem CD (24hr) 120 MG CAPSULE PO SCH (08:37)
[2018-02-05] MEDS: tiZANidine 4 MG TABLET PO SCH ×3 (08:37→22:19)
[2018-02-05] MEDS: Insulin LISPRO 300 UNITS/3 ML VIAL SQ SCH ×3 (08:47→22:23)
--- NOTE | 2018-02-05 11:15 | Infectious Disease Progress No ---
Date of Encounter: 02/05/18 Time of Encounter: 11:13 - Assessment and Plan (1) Sepsis Current Visit: No Status: Resolved Met 3/4 SIRS criteria, with leukocytosis, tachycardia, tachypnea - Known source of infection with multifocal pneumonia, UTI, and cellulitis - Home health nurse reported a fever of 102 before admission - Patient was given IV fluid resuscitation in the emergency department - Blood cultures are ordered and are currently pending - Currently on IV Zosyn Qualifiers: Sepsis type: sepsis due to unspecified organism Qualified Code(s): A41.9 - Sepsis, unspecified organism (2) UTI (urinary tract infection) Current Visit: Yes Status: Resolved Patient was recently discharged from hospital on 01/23; during hospitalization, patient was discharged home to complete a course of doxycycline fosfomycin until 01/30 for UTI with ESBL Klebsiella - UA demonstrates large amount of leukocyte esterase, WBC TNTC - Urine culture from 01/30 is negative - Continue IV antibiotics as above Qualifiers: Urinary tract infection type: site unspecified Hematuria presence: without hematuria Qualified Code(s): N39.0 - Urinary tract infection, site not specified (3) HAP (hospital-acquired pneumonia) Current Visit: Yes Status: Suspected - Patient was recently discharged on 01/23 - On arrival, SPO2 was 84% on room air; heart rate in the 130s - Chest x-ray demonstrated increasing pulmonary edema with worsening basilar atelectasis - CTA demonstrated multifocal airspace consolidation throughout both lungs; most likely reflective of multifocal pneumonia. - Continue bronchodilators and incentive spirometry - IV antibiotics as above - Resp. infection panel negative - Legionella and strep antigen both negative - Sputum cx pending (4) Ulcer of right heel Current Visit: Yes Status: Chronic - Patient has necrotic right heel ulcer and bilateral lower extremity cellulitis - Normally sees composition instructor Dr. Stoll - CT scan of the legs was negative for osteomyelitis; did not demonstrate extensive subcutaneous edema - Underwent surgical debridement - R foot wound CX: Klebsiella ESBL sensitive to Zosyn, Imipenem, Ertapenem, GNR , GNR #2 - Final report pending Qualifiers: Non-pressure ulcer stage: unspecified non-pressure ulcer stage Qualified Code(s): L97.419 - Non-pressure chronic ulcer of right heel and midfoot with unspecified severity (5) Venous stasis dermatitis of both lower extremities Current Visit: Yes Status: Chronic - CT of the legs demonstrated extensive subcutaneous edema skin thickening of the bilateral lower extremities - Findings are likely reflective of chronic venous stasis/lymphedema versus cellulitis - No organized drainable fluid collection has been identified - Continue wound care (6) Diastolic heart failure Current Visit: Yes Status: Chronic - Acute on chronic diastolic CHF exacerbation - Presented with shortness of breath, pedal edema, rales on exam, and tachycardia with heart rate in the 130s - CXR revealed increasing pulmonary edema with worsening bibasilar atelectasis. - Echo 11/11/17 revealed LVEF 55-60%, mild concentric LVH - Management per primary team Qualifiers: Heart failure chronicity: chronic Qualified Code(s): I50.32 - Chronic diastolic (congestive) heart failure (7) Type 2 diabetes mellitus Current Visit: Yes Status: Chronic - HGB a1c level 11% on 09/20/17 - Continue basal and SSI - Monitor accu-checks Qualifiers: Diabetes mellitus halfway insulin use: with halfway use Diabetes mellitus complication status: with skin complications Diabetes mellitus complication detail: with foot ulcer Qualified Code(s): E11.621 - Type 2 diabetes mellitus with foot ulcer; L97.509 - Non-pressure chronic ulcer of other part of unspecified foot with unspecified severity; Z79.4 - terminal computer operator ( current) use of insulin (8) Thyroid nodule Current Visit: Yes Status: Acute - Incidentally found on chest CTA on 01/29; stable 2.4 cm low attenuation nodule within the left thyroid lobe. - Follow-up the outpatient setting (9) DOROTHEA (acute kidney injury) Current Visit: Yes Status: Acute Resolved - Subjective Interval history: Patient was seen and examined at bedside this morning. Reports that she feels similar to how she did last week. Denies any pain in her foot. Denies fever, chills, shortness of breath, or abdominal pain. No further complaints at this time. Infect Dis PN-Objective Data - Labs CBC & Chem 7: 02/01/18 04:43 02/05/18 04:35 Labs: Laboratory Results - last 24 hr 02/03/18 02/04/18 02/04/18 21:13 07:25 10:59 Sodium Potassium Chloride Carbon Dioxide BUN Creatinine Est GFR ( Amer) Est GFR (Non-Af Amer) BUN/Creatinine Ratio Glucose POC Glucose 127 H 122 H 172 H Calculated Osmolality Calcium 02/04/18 02/05/18 16:09 04:35 Sodium 136 Potassium 4.5 Chloride 98 Carbon Dioxide 34 H BUN 27 H Creatinine 1.11 Est GFR ( Amer) > 60 Est GFR (Non-Af Amer) 51 L BUN/Creatinine Ratio 24 Glucose 111 H POC Glucose 162 H Calculated Osmolality 288 Calcium 8.6 Cultures: Cultures 02/01/18 10:50 Wound Culture - Preliminary Right Foot Klebsiella pneumoniae ESBL Gram Negative Haim 02/01/18 11:30 Surgical Biopsy Culture - Preliminary Right Foot Klebsiella pneumoniae ESBL Gram Negative Haim#2 Serology 01/30/18 Range/Units 18:41 Chlamy pneumoniae PCR Not Detected (Not Detect) Adenovirus (PCR) Not Detected (Not Detect) B. pertussis DNA (PCR) Not Detected (Not Detect) B.parapertussis DNA PCR Not Detected (Not Detect) Coronavirus OC43 (PCR) Not Detected (Not Detect) Coronavirus HKU1 (PCR) Not Detected (Not Detect) Coronavirus 229E (PCR) Not Detected (Not Detect) Coronavirus NL63 (PCR) Not Detected (Not Detect) Human Metapneumovir PCR Not Detected (Not Detect) Influenza A (H1) PCR Not Detected (Not Detect) Influ A (H1N1/09) PCR Not Detected (Not Detect) Influenza A (H3) PCR Not Detected (Not Detect) Influenza A Untype (PCR) Not Detected (Not Detect) Influenza Type B (PCR) Not Detected (Not Detect) M.pneumoniae DNA (PCR) Not Detected (Not Detect) Parainfluenza 1 (PCR) Not Detected (Not Detect) Parainfluenza 2 (PCR) Not Detected (Not Detect) Parainfluenza 3 (PCR) Not Detected (Not Detect) Parainfluenza 4 (PCR) Not Detected (Not Detect) RSV (PCR) Not Detected (Not Detect) Entero/Rhino (PCR) Not Detected (Not Detect) Exam - Constitutional Vitals: Temp Pulse Resp BP Pulse Ox 98.3 F 79 17 157/74 90 02/05/18 07:30 02/05/18 07:30 02/05/18 07:30 02/05/18 07:30 02/05/18 07:30 - Additional findings Additional findings: - Head Head exam: Present: atraumatic, normal inspection - Respiratory Respiratory exam: Present: wheezes. Absent: decreased breath sounds, rhonchi, tachypnea - Cardiovascular Cardiovascular exam: Present: RRR, +S1, +S2 - Extremities Exam Additional comments: Both lower extremities are currently wrapped. S/P debridement of R foot. - Psychiatric Psychiatric exam: Present: normal affect - Skin Skin exam: Present: rash Consult Discharge Plan - Plan Referrals: Jc Tsai MD [Primary Care Provider] - - Attending Attestation I examined this patient and my medical decision-making was reviewed with the Resident Physician. I agree with the documented findings, disposition and treatment plan as described except to the extent set forth below.
--- NOTE | 2018-02-05 12:38 | Podiatry Progress Note ---
Date of Encounter: 02/05/18 Time of Encounter: 11:15 - Assessment and Plan (1) Chronic venous hypertension w/ulcer and inflammation involv both sides Current Visit: No Status: Chronic (2) Diabetes mellitus Current Visit: No Status: Chronic Qualifiers: Diabetes mellitus type: type 2 Diabetes mellitus usp insulin use: with terminal gauger supervisor use Diabetes mellitus complication status: with skin complications Diabetes mellitus complication detail: with other skin complication Qualified Code(s): E11.628 - Type 2 diabetes mellitus with other skin complications; Z79.4 - senior living (current) use of insulin (3) Ulcer of right heel Current Visit: Yes Status: Chronic S/p incision and drainage and debridement of all necrotic tissue right foot/ heel, application of PuraPly wound matrix with graft jacket and wound VAC right heel on 02/01/[address] Stoll. A febrile, Overall significant improvement in erythema and swelling to BLE. Wound cultures of right leg from 01/18/18 isolated MRSA. Surgical biopsy culture from 02/01/18-prelim: Klebsiella pneumoniae ESBL, GNR Wound culture right foot 02/01/18- prelim: Klebsiella pneumoniae ESBL, GNR #2 Microbiology 01/29/18 17:11 Peripheral Venipuncture Blood Culture - Final No growth. Final report. 01/29/18 17:11 Peripheral Venipuncture Blood Culture - Final No growth. Final report. 01/30/18 14:45 Urine,[place] Urine Culture - Final No significant growth. 01/29/18 17:15 Urine,[place] Legionella Antigen - Final 01/29/18 17:15 Urine,[place] Streptococcus pneumoniae Antigen (M - Final Lower Extremity CT 01/29/18 16:56 IMPRESSION: 1. Re- demonstration of extensive subcutaneous edema skin thickening of the bilateral lower extremities similar to previous exam. Findings may reflect chronic venous stasis/lymph edema versus cellulitis. No organized drainable fluid collection identified. 2. Ulceration identified along the plantar aspect of the right foot at the level of the calcaneus which is new compared with previous exam. 3. Re- demonstration of remote fracture of the left 5th metatarsal base with no evidence for osseous bridging or callus formation. Plan Wound vac due to be changed tomorrow 02/06/18. Continue wound vac dressing changes as ordered. Dressings dry and intact to both feet, no strike through drainage. Antibiotics per Infectious Disease. bushel worker coordinating ECF. Follow up with Dr. Stoll in wound care one week after discharge from hospital. NWB to right foot. Qualifiers: Non-pressure ulcer stage: unspecified non-pressure ulcer stage Qualified Code(s): L97.419 - Non-pressure chronic ulcer of right heel and midfoot with unspecified severity (4) Venous stasis dermatitis of both lower extremities Current Visit: Yes Status: Chronic Skin changes with erythema and blisters to BLE lower legs with venous ulceration to the right lower leg consistent with venous stasis dermatitis. Plan: Keep BLE elevated. Will hold off on compression to BLE due to acute on chronic diastolic heart failure and pulmonary edema. Apply adaptic to blisters of the lower leg of BLE with kerlix gauze wrapped from toes to tibia. Subjective Interval history: Patient is s/p incision and drainage and debridement of all necrotic tissue right foot/heel, application of PuraPly wound matrix with graft jacket and wound VAC right heel on 02/01/[address] Stoll. Patient is sitting up in bed with at bedside. Patient has a wound VAC intact to the right heel. Dressings intact to both feet. Patient states she gets intermittent pain to the right heel, no pain currently. [facility] and is awaiting authorization. Objective - Vital Signs Vital Signs: Vital Signs Temp Pulse Resp BP Pulse Ox 02/05/18 11:25 98 F 68 18 146/64 93 02/05/18 07:30 98.3 F 79 17 157/74 90 02/05/18 05:00 97.8 F 70 16 142/64 91 02/04/18 20:56 97.8 F 73 16 147/68 91 02/04/18 20:51 92 02/04/18 15:03 98.3 F 74 16 142/74 94 Intake and Output 02/04/18 02/05/18 02/05/18 23:59 07:59 15:59 Intake Total 220 / 220 120 / 120 580 / 580 Output Total 300 / 300 750 / 750 200 / 200 Balance -80 / -80 -630 / -630 380 / 380 Intake: IV Fluids 100 / 100 100 / 100 Zosyn 3.375 GM In 0.9 % Sodium 100 / 100 100 / 100 Chloride (Mini-Bag +) 100 ML @ 25 mls/hr IVPB Q8H DONNA Rx#: [id number] Oral 120 / 120 120 / 120 480 / 480 Output: Urine 300 / 300 Catheter 750 / 750 200 / 200 Other: Meal Breakfast Percent of Meal Consumed 95% Weight 142.5 kg Blood Glucose* 170 124 168 Patient Weight 02/05/18 23:59 Weight 142.5 kg - Exam Exam: General appearance: alert awake oriented X 3. Calm and pleasant, no acute distress.. Vascular: Unable to palpate pedal pulses due to edema, No evidence of cyanosis, pallor or rubor, Edema graded at 2+/4, Skin temperature warm, Homans Sign negative, capillary refill time is immediate to digits.. Integument: Skin with decreased turgor, decreased subcutaneous tissue, skin thin and shiny with trophic changes associated with comorbidities as described in history. Decreased Erythema to BLE, skin is warm, no lymphangitis, clearing of erythema to bilateral ankles and knees, dried scab noted to the medial aspect of toe #1 left foot. S/p: Right foot, wound vac intact, no strike through drainage, no drainage observed to canister. - Lab Result Diagrams: 02/01/18 04:43 02/05/18 04:35 Labs: Abnormal lab results RBC 3.49 M/mcL (3.82-4.97) L 02/01/18 04:43 Hgb 8.5 g/dL (11.5-15.4) L 02/01/18 04:43 Hct 28.9 % (35.3-44.9) L 02/01/18 04:43 MCV 82.8 fL (83.0-100.0) L 02/01/18 04:43 MCH 24.4 pg (28.0-33.3) L 02/01/18 04:43 MCHC 29.4 g/dL (31.6-35.5) L 02/01/18 04:43 RDW 19.3 % (11.5-14.5) H 02/01/18 04:43 ESR >= 130 mm/hr (0-15) H 01/29/18 17:11 PT 13.8 Seconds (9.4-12.1) H 01/29/18 17:11 Carbon Dioxide 34 mEq/L (23-29) H 02/05/18 04:35 BUN 27 mg/dL (6-20) H 02/05/18 04:35 Est GFR (Non-Af Amer) 51 (> 60) L 02/05/18 04:35 Glucose 111 mg/dL (70-105) H 02/05/18 04:35 POC Glucose 162 mg/dL (70-99) H 02/04/18 16:09 Magnesium 1.5 mg/dL (1.6-2.6) L 01/30/18 04:41 Direct Bilirubin 0.3 mg/dL (0.0-0.2) H 01/29/18 17:11 AST 11 Units/L (13-39) L 01/29/18 17:11 Troponin I 0.19 ng/mL (< 0.04) H* 01/30/18 15:58 C-Reactive Protein 140 mg/L (Less than 10) H 01/29/18 17:11 B-Natriuretic Peptide 357 pg/mL (Less than 100) H 01/30/18 04:41 Albumin 2.7 g/dL (3.5-5.7) L 01/29/18 17:11 Globulin 5.1 g/dL (2.4-3.5) H 01/29/18 17:11 Albumin/Globulin Ratio 0.5 (1.1-2.2) L 01/29/18 17:11 Lipase 84 Units/L (11-82) H 01/29/18 17:11 Urine Clarity Turbid (Clear) A 01/29/18 17:15 Urine Protein 100 mg/dL (Neg-Trace) H 01/29/18 17:15 Urine Glucose (UA) 500 mg/dL (Normal) H 01/29/18 17:15 Urine Blood Moderate (Negative) H 01/29/18 17:15 Ur Leukocyte Esterase Large (Negative) H 01/29/18 17:15 Urine Microscopic RBC 15-30 per hpf (0-3) H 01/29/18 17:15 Urine Microscopic WBC TNTC per hpf (0-3) H 01/29/18 17:15 Ur Squamous Epith Cells Many per lpf (None-Few) H 01/29/18 17:15 Ur Culture Indicated? NO. (NO) A 01/29/18 17:15 Vancomycin Trough 12 mcg/mL (5-10) H 02/03/18 05:28 Microbiology, Last 48 Hours 02/01/18 10:50 Wound Culture - Preliminary Right Foot Klebsiella pneumoniae ESBL Gram Negative Haim 02/01/18 11:30 Surgical Biopsy Culture - Preliminary Right Foot Klebsiella pneumoniae ESBL Gram Negative Haim#2 Consult Discharge Plan - Plan Referrals: cJ Tsai MD [Primary Care Provider] -
--- NOTE | 2018-02-05 15:16 | Internal Med Progress Note ---
Date of Encounter: 02/05/18 Time of Encounter: 10:15 - Assessment and plan (1) Sepsis Current Visit: Yes Status: Resolved Assessment and plan: Presented with leukocytosis and tachycardia, possible pneumonia, bilateral leg cellulitis, right foot ulcer. Improved. Follow up final cultures and continue IV antibiotics, further plan as below. Qualifiers: Sepsis type: sepsis due to unspecified organism Qualified Code(s): A41.9 - Sepsis, unspecified organism (2) UTI (urinary tract infection) Current Visit: Yes Status: Ruled-out Qualifiers: Urinary tract infection type: site unspecified Hematuria presence: without hematuria Qualified Code(s): N39.0 - Urinary tract infection, site not specified (3) DVT prophylaxis Current Visit: Yes Status: Acute (4) Morbid obesity Current Visit: Yes Status: Chronic (5) HTN (hypertension) Current Visit: Yes Status: Chronic Qualifiers: Hypertension type: essential hypertension Qualified Code(s): I10 - Essential (primary) hypertension (6) HLD (hyperlipidemia) Current Visit: Yes Status: Chronic Qualifiers: Hyperlipidemia type: unspecified Qualified Code(s): E78.5 - Hyperlipidemia , unspecified (7) Venous stasis dermatitis of both lower extremities Current Visit: Yes Status: Chronic (8) Diastolic heart failure Current Visit: Yes Status: Chronic Assessment and plan: Will resume home dose of Lasix. Continue telemetry monitoring, beta geena. Qualifiers: Heart failure chronicity: chronic Qualified Code(s): I50.32 - Chronic diastolic (congestive) heart failure (9) Ulcer of right heel Current Visit: Yes Status: Chronic Assessment and plan: Patient follows with podiatry, consulted as inpatient. s/p I&D and debridement of all necrotic tissue right foot/heel, wound vac application on 02/01/18; Local wound care per podiatry recommendations. Wound cultures growing ESBL Klebsiella, Proteus penneri and GPC; Continue IV Zosyn and IV ertapenem, may d/ c Zosyn, will await ID f/up; Patient may need fci IV antibiotics due to elevated ESR and CRP. PT evaluation recommend ECF; social science professor on board, pending precert; Qualifiers: Non-pressure ulcer stage: unspecified non-pressure ulcer stage Qualified Code(s): L97.419 - Non-pressure chronic ulcer of right heel and midfoot with unspecified severity (10) Type 2 diabetes mellitus Current Visit: Yes Status: Chronic Assessment and plan: Blood sugars noted to be well-controlled; sliding scale insulin as needed. Diabetic diet. Qualifiers: Diabetes mellitus terminal gauger supervisor insulin use: with terminal gauger supervisor use Diabetes mellitus complication status: with skin complications Diabetes mellitus complication detail: with foot ulcer Qualified Code(s): E11.621 - Type 2 diabetes mellitus with foot ulcer; L97.509 - Non-pressure chronic ulcer of other part of unspecified foot with unspecified severity; Z79.4 - termite treater ( current) use of insulin (11) REGINALD on CPAP Current Visit: Yes Status: Chronic (12) HAP (hospital-acquired pneumonia) Current Visit: Yes Status: Suspected Assessment and plan: CTA demonstrated multifocal airspace consolidation throughout both lungs; most likely reflective of multifocal pneumonia. Patient was recently discharged from our hospital. Continue broad-spectrum IV antibiotics-Ertapenem and Zosyn due to above reasons. Blood cultures negative. Urine legionella and strep pneumoniae antigen negative. Respiratory infection panel negative. ID on board, appreciate recommendations; (13) Elevated troponin Current Visit: Yes Status: Acute (14) DOROTHEA (acute kidney injury) Current Visit: Yes Status: Acute Assessment and plan: difficult to assess if patient has DOROTHEA vs CKD; probably does have some diabetic nephropathy; GFR has been widely fluctuating since October 2017, between 15-55; creatinine currently stable at 1.11; resume Lasix due to signs of mild volume overload, and continue to monitor; Renal ultrasound shows no hydronephrosis. - Time Spent With Patient Total time spent is greater than 50% in coordination of care (as documented) at patient's floor/unit and/or counseling patient: - Subjective Interval history: No new complaints; no fever/chills, nausea, vomiting; noted to have increased O2 requirements today; - Constitutional Vitals: Temp Pulse Resp BP Pulse Ox 98 F 68 18 146/64 93 02/05/18 11:25 02/05/18 11:25 02/05/18 11:25 02/05/18 11:25 02/05/18 11:25 General appearance: Present: cooperative, A&O X 3, morbidly obese, answers questions appropriately - Respiratory Respiratory exam: Present: CTAB, rales (bibasal crackles). Absent: accessory muscle use, rhonchi, wheezes - Cardiovascular Cardiovascular exam: Present: RRR, +S1, +S2. Absent: diastolic murmur, gallop, rubs, systolic murmur - GI/Abdominal GI/Abdominal exam: Present: normal bowel sounds, soft (obese), no peritoneal signs. Absent: distended, tenderness - Extremities Exam Extremities exam: Present: pedal edema, warm, radial pulses palpable and symmetrical. Absent: calf tenderness, cyanotic Additional comments: right foot in wound vac, with no drainage at this time Internal Medicine: Result - Labs CBC & Chem 7: 02/01/18 04:43 02/05/18 04:35 Labs: BMP 02/05/18 04:35 Sodium 136 Potassium 4.5 Chloride 98 Carbon Dioxide 34 H BUN 27 H Creatinine 1.11 Glucose 111 H Calcium 8.6 - ABG Interpretation ABG results: PT/INR, D-dimer PT 13.8 Seconds (9.4-12.1) H 01/29/18 17:11 Consult Discharge Plan - Plan Referrals: Jc Tsai MD [Primary Care Provider] -
[2018-02-05] MEDS: Furosemide 40 MG TABLET PO SCH (17:24)
[2018-02-05] MEDS: Gabapentin 300 MG CAPSULE PO SCH (22:19)
[2018-02-05] MEDS: Insulin DETEMIR 100 UNIT/ML X5UNITS SQ SCH (22:24)
[2018-02-05] MEDS: Latanoprost 2.5 ML BOTTLE BOTH EYES SCH (22:25)
[2018-02-06] MEDS: Piperacillin/Tazobactam 3.375 GM in 0.9 % Sodium Chloride Mini Bag 100 ML IVPB SCH ×3 (03:22→16:32)
[2018-02-06] MEDS: *HR* Heparin 5,000 UNIT/ML VIAL SQ SCH ×3 (06:34→22:14)
[2018-02-06] MEDS: Insulin LISPRO 300 UNITS/3 ML VIAL SQ SCH ×5 (06:55→22:14)
[2018-02-06] MEDS: Furosemide 40 MG TABLET PO SCH ×2 (09:07→16:32)
[2018-02-06] MEDS: tiZANidine 4 MG TABLET PO SCH ×3 (09:07→22:13)
[2018-02-06] MEDS: Aspirin 81 MG TAB.CHEW PO SCH (09:07)
[2018-02-06] MEDS: Thiamine (B-1) 100 MG TABLET PO SCH (09:07)
[2018-02-06] MEDS: Lactobacillus 1 EACH CAP.SPRINK PO SCH ×2 (09:07→22:13)
[2018-02-06] MEDS: Diltiazem CD (24hr) 120 MG CAPSULE PO SCH (09:07)
[2018-02-06] MEDS: Pregabalin 75 MG CAPSULE PO SCH ×2 (09:07→22:13)
[2018-02-06] MEDS: Ertapenem 1,000 MG in 0.9 % Sodium Chloride Mini Bag 100 ML IVPB SCH (09:08)
--- NOTE | 2018-02-06 10:28 | Infectious Disease Progress No ---
Date of Encounter: 02/06/18 Time of Encounter: 10:27 - Assessment and Plan (1) Sepsis Current Visit: No Status: Resolved Met 3/4 SIRS criteria, with leukocytosis, tachycardia, tachypnea - Known source of infection with multifocal pneumonia, UTI, and cellulitis - Home health nurse reported a fever of 102 before admission - Patient was given IV fluid resuscitation in the emergency department - Currently on IV Zosyn Qualifiers: Sepsis type: sepsis due to unspecified organism Qualified Code(s): A41.9 - Sepsis, unspecified organism (2) Ulcer of right heel Current Visit: Yes Status: Chronic - Patient has necrotic right heel ulcer and bilateral lower extremity cellulitis - Normally sees wall to wall carpet installer Dr. Stoll - CT scan of the legs was negative for osteomyelitis; did not demonstrate extensive subcutaneous edema - Underwent surgical debridement - R foot wound CX: Klebsiella ESBL sensitive to Zosyn, Imipenem, Ertapenem, Proteus, WHARF TENDER HEAD - We recommend continuation of zosyn for 2-4 weeks; patient will also need agressive debridement and wound care Qualifiers: Non-pressure ulcer stage: unspecified non-pressure ulcer stage Qualified Code(s): L97.419 - Non-pressure chronic ulcer of right heel and midfoot with unspecified severity (3) UTI (urinary tract infection) Current Visit: No Status: Resolved Patient was recently discharged from hospital on 01/23; during hospitalization, patient was discharged home to complete a course of doxycycline fosfomycin until 01/30 for UTI with ESBL Klebsiella - UA demonstrates large amount of leukocyte esterase, WBC TNTC - Urine culture from 01/30 is negative - Continue IV antibiotics as above Qualifiers: Urinary tract infection type: site unspecified Hematuria presence: without hematuria Qualified Code(s): N39.0 - Urinary tract infection, site not specified (4) HAP (hospital-acquired pneumonia) Current Visit: Yes Status: Suspected - Patient was recently discharged on 01/23 - On arrival, SPO2 was 84% on room air; heart rate in the 130s - Chest x-ray demonstrated increasing pulmonary edema with worsening basilar atelectasis - CTA demonstrated multifocal airspace consolidation throughout both lungs; most likely reflective of multifocal pneumonia. - Continue bronchodilators and incentive spirometry - IV antibiotics as above - Resp. infection panel negative - Legionella and strep antigen both negative - Sputum cx pending (5) Venous stasis dermatitis of both lower extremities Current Visit: Yes Status: Chronic - CT of the legs demonstrated extensive subcutaneous edema skin thickening of the bilateral lower extremities - Findings are likely reflective of chronic venous stasis/lymphedema versus cellulitis - No organized drainable fluid collection has been identified - Continue wound care (6) Diastolic heart failure Current Visit: No Status: Chronic - Acute on chronic diastolic CHF exacerbation - Presented with shortness of breath, pedal edema, rales on exam, and tachycardia with heart rate in the 130s - CXR revealed increasing pulmonary edema with worsening bibasilar atelectasis. - Echo 11/11/17 revealed LVEF 55-60%, mild concentric LVH - Management per primary team Qualifiers: Heart failure chronicity: chronic Qualified Code(s): I50.32 - Chronic diastolic (congestive) heart failure (7) Type 2 diabetes mellitus Current Visit: Yes Status: Chronic - HGB a1c level 11% on 09/20/17 - Continue basal and SSI - Monitor accu-checks Qualifiers: Diabetes mellitus terminal press operator insulin use: with assisted use Diabetes mellitus complication status: with skin complications Diabetes mellitus complication detail: with foot ulcer Qualified Code(s): E11.621 - Type 2 diabetes mellitus with foot ulcer; L97.509 - Non-pressure chronic ulcer of other part of unspecified foot with unspecified severity; Z79.4 - termite control servicer ( current) use of insulin (8) Thyroid nodule Current Visit: Yes Status: Acute - Incidentally found on chest CTA on 01/29; stable 2.4 cm low attenuation nodule within the left thyroid lobe. - Follow-up the outpatient setting (9) DOROTHEA (acute kidney injury) Current Visit: Yes Status: Acute Resolved - Subjective Interval history: Patient was seen and examined at bedside this morning. Reports that she wants to go home. Denies any pain in her foot. Denies fever, chills, shortness of breath, or abdominal pain. No further complaints at this time. Infect Dis PN-Objective Data - Labs CBC & Chem 7: 02/07/18 09:51 02/07/18 05:42 Labs: Laboratory Results - last 24 hr 02/04/18 02/05/18 02/05/18 20:29 07:35 11:27 POC Glucose 170 H 124 H 168 H 02/05/18 02/05/18 16:00 21:30 POC Glucose 175 H 186 H Cultures: Cultures 02/01/18 11:30 Anaerobic Culture - Final Right Foot No anaerobes were recovered. 02/01/18 11:30 Surgical Biopsy Culture - Preliminary Right Foot Klebsiella pneumoniae MDRO Proteus penneri Gram Positive Cocci 02/01/18 10:50 Wound Culture - Preliminary Right Foot Klebsiella pneumoniae MDRO Proteus penneri Gram Positive Cocci Serology 01/30/18 Range/Units 18:41 Chlamy pneumoniae PCR Not Detected (Not Detect) Adenovirus (PCR) Not Detected (Not Detect) B. pertussis DNA (PCR) Not Detected (Not Detect) B.parapertussis DNA PCR Not Detected (Not Detect) Coronavirus OC43 (PCR) Not Detected (Not Detect) Coronavirus HKU1 (PCR) Not Detected (Not Detect) Coronavirus 229E (PCR) Not Detected (Not Detect) Coronavirus NL63 (PCR) Not Detected (Not Detect) Human Metapneumovir PCR Not Detected (Not Detect) Influenza A (H1) PCR Not Detected (Not Detect) Influ A (H1N1/09) PCR Not Detected (Not Detect) Influenza A (H3) PCR Not Detected (Not Detect) Influenza A Untype (PCR) Not Detected (Not Detect) Influenza Type B (PCR) Not Detected (Not Detect) M.pneumoniae DNA (PCR) Not Detected (Not Detect) Parainfluenza 1 (PCR) Not Detected (Not Detect) Parainfluenza 2 (PCR) Not Detected (Not Detect) Parainfluenza 3 (PCR) Not Detected (Not Detect) Parainfluenza 4 (PCR) Not Detected (Not Detect) RSV (PCR) Not Detected (Not Detect) Entero/Rhino (PCR) Not Detected (Not Detect) Exam - Constitutional Vitals: Temp Pulse Resp BP Pulse Ox 97.8 F 86 20 161/64 90 02/06/18 07:42 02/06/18 07:42 02/06/18 07:42 02/06/18 07:42 02/06/18 07:42 - Additional findings Additional findings: - Head Head exam: Present: atraumatic, normal inspection - Respiratory Respiratory exam: Present: wheezes. Absent: decreased breath sounds, rhonchi, tachypnea - Cardiovascular Cardiovascular exam: Present: RRR, +S1, +S2 - Extremities Exam Additional comments: Both lower extremities are currently wrapped. S/P debridement of R foot. - Psychiatric Psychiatric exam: Present: normal affect - Skin Skin exam: Present: rash Consult Discharge Plan - Plan Referrals: Jc Tsai MD [Primary Care Provider] - - Attending Attestation I examined this patient and my medical decision-making was reviewed with the Resident Physician. I agree with the documented findings, disposition and treatment plan as described except to the extent set forth below.
--- NOTE | 2018-02-06 11:17 | Discharge Summary ---
<Sg Irizarry S - Last Filed: 02/06/18 15:32> - NOTES TO OUTPATIENT PROVIDER Notes to Outpatient Provider: Follow up on cellulitis, diabetic foot ulcers. Pt should be advised to lose weight and get outpt sleep study Orders not resulted at time of discharge: Pending orders 02/01/18 10:50 Culture,Wound [RM] Routine 02/01/18 11:30 Culture,Tissue (Biopsy) [] Routine Date of Encounter: 02/06/18 Time of Encounter: 10:00 - Discharge Diagnosis (1) Diastolic heart failure Priority: Secondary Status: Chronic Assessment and Plan: Pt is on Lasix and beta blockers -pt has telemetry -TTE in 11/2016 showed LVEF 60%, concentric LVH, moderate diastolic dysfxn -pt should eat a heart healthy diet and lose weight Pt was fluid overloaded today -ended up on 8L O2 -did a STAT CXR showing pulmonary edema -Lasix IVP 40mg x 2 -will recheck BMP in am and plan for discharge tomorrow instead Qualifiers: Heart failure chronicity: chronic Qualified Code(s): I50.32 - Chronic diastolic (congestive) heart failure (2) Ulcer of right heel Priority: Primary Status: Chronic Assessment and Plan: POD #5 s/p debridement of right heel with podiatry -wound vac applied, pt will be discharged to SNF for correction therapy -Wound cultures growing ESBL Klebsiella, Proteus penneri, gram (+) cocci - Patient will need correction abx, PICC line consulted. She is on ertapenem and zosyn, awaiting ID reccomendations PT evaluation recommend ECF; social and human services assistant on board -will discharge to SNF today pending PICC line insert Qualifiers: Non-pressure ulcer stage: unspecified non-pressure ulcer stage Qualified Code(s): L97.419 - Non-pressure chronic ulcer of right heel and midfoot with unspecified severity (3) UTI (urinary tract infection) Priority: Secondary Status: Resolved Assessment and Plan: Patient was recently discharged from hospital on 01/23; patient was discharged home to complete a course of doxycycline and fosfomycin until 01/30 for UTI with ESBL Klebsiella; -Repeat urinalysis shows proteinuria, glucosuria, TNTC WBCs and many squamous cells, large leukocyte esterase, negative nitrites -Urine culture is negative. Qualifiers: Urinary tract infection type: site unspecified Hematuria presence: without hematuria Qualified Code(s): N39.0 - Urinary tract infection, site not specified (4) DVT prophylaxis Priority: Secondary Status: Acute Assessment and Plan: Heparin subQ TID (5) Morbid obesity Priority: Secondary Status: Chronic Assessment and Plan: Lifestyle modification BMI 51.5 Pt should eat a low fat, low cholesterol renal diet (6) HTN (hypertension) Priority: Secondary Status: Chronic Assessment and Plan: Pt is on Lasix, carvidiol BP today is 161/64 -pt BP is not well controlled. Pt needs to follow up with PCP for HTN Qualifiers: Hypertension type: essential hypertension Qualified Code(s): I10 - Essential (primary) hypertension (7) HLD (hyperlipidemia) Priority: Secondary Status: Chronic Assessment and Plan: Pt is on Lipitor Pt should follow up with PCP for lifestyle modifications -encourage low fat, low cholesterol heart healthy diet Qualifiers: Hyperlipidemia type: unspecified Qualified Code(s): E78.5 - Hyperlipidemia , unspecified (8) Type 2 diabetes mellitus Priority: Secondary Status: Chronic Assessment and Plan: Blood sugars noted to be well-controlled; sliding scale insulin as needed. Diabetic diet. -Pt needs lifestyle modifications Qualifiers: Diabetes mellitus correction insulin use: with investor relations manager use Diabetes mellitus complication status: with skin complications Diabetes mellitus complication detail: with foot ulcer Qualified Code(s): E11.621 - Type 2 diabetes mellitus with foot ulcer; L97.509 - Non-pressure chronic ulcer of other part of unspecified foot with unspecified severity; Z79.4 - pipeline executive ( current) use of insulin (9) REGINALD on CPAP Priority: Secondary Status: Chronic Assessment and Plan: Continue CPAP at night (10) Sepsis Priority: Secondary Status: Resolved Qualifiers: Sepsis type: sepsis due to unspecified organism Qualified Code(s): A41.9 - Sepsis, unspecified organism (11) HAP (hospital-acquired pneumonia) Priority: Secondary Status: Suspected Assessment and Plan: CT of chest showed mulitfocal airspace consolidation in both lungs -multifocal pneumonia -pt is on broad spectrum abx - ertapenem and zosyn -blood cultures negative -legionella and s pneumo antigen negative -respiraotry infxn panel negative -infectious dz is managing abx -PICC line team consulted for investor relations manager abx because of the ulcer/cellulitis Hospital course: Ms. Magallanes is a 58 year old female Discharge discussed with: patient Time spent discussing smoking cessation with patient: 3 to 10 minutes - Time Spent with Patient Total time spent providing and/or coordinating discharge services: Less than 30 minutes - Discharge Medications Home Medications: Atorvastatin [Lipitor] 40 mg PO HS 01/11/16 [History] Insulin ASPART [Novolog Flexpen] 6 - 14 unit SQ TID 01/11/16 [History] Latanoprost [Xalatan] 1 drop BOTH EYES HS 01/11/16 [History] Primidone [Mysoline] 25 - 50 mg PO BID PRN 01/11/16 [History] Ascorbic Acid [Vitamin C] 500 mg PO BID 03/25/16 [History] Docusate Sodium [Colace] 200 mg PO BID 03/25/16 [History] Furosemide [Lasix] 40 mg PO BID 12/06/16 [History] Fluticasone Propionate Nasal [Flonase] 2 spray NS DAILY #1 bottle 08/28/17 [Rx] Brimonidine Tartrate/Timolol [Combigan 0.2%-0.5% Eye Drops] 1 drop OP BID [History] Diltiazem HCl [Diltiazem 12Hr ER] 120 mg PO DAILY 11/10/17 [History] Esomeprazole Magnesium [Nexium] 40 mg PO DAILY 11/10/17 [History] Gentamicin Oint [Garamycin] 1 appl TP BID 11/10/17 [History] Ketoconazole 2% CRM [Nizoral Cream] 1 appl TP DAILY 11/10/17 [History] Ketorolac Tromethamine 1 drop OP QID 11/10/17 [History] Losartan Potassium [Cozaar] 100 mg PO DAILY 11/10/17 [History] Tizanidine HCl 4 mg PO TID 11/20/17 [History] Calcium Carbonate [Tums] 1,000 mg PO Q4HR PRN tab.chew 11/24/17 [Rx] Carvedilol [Coreg] 6.25 mg PO BIDWM tablet 11/24/17 [Rx] Lactobacillus Acidophilus [Acidophilus] 1 each PO BID #10 capsule 11/24/17 [Rx] Pregabalin [Lyrica] 75 mg PO BID 30 Days #60 capsule 11/24/17 [Rx] clonazePAM [Klonopin] 0.5 mg PO BID PRN 5 Days #10 tablet 11/24/17 [Rx] Gabapentin [Neurontin] 300 mg PO HS 01/17/18 [History] Insulin Glargine,Hum.rec.anlog [Basaglar Kwikpen U-100] 40 unit SQ BID 01/17/18 [History] Potassium Chloride [K-Tab ER] 20 meq PO QID 01/17/18 [History] Fosfomycin Tromethamine [Monurol] 3 gm PO Q48H 8 Days #4 packet 01/23/18 [Rx] Nystatin POWDER [Nystop] 1 appl TP BID bottle 01/23/18 [Rx] Ferrous Sulfate 325 mg PO BID 01/30/18 [History] Loratadine [Allergy Relief] 10 mg PO DAILY 01/30/18 [History] Pantoprazole Sodium [Protonix] 40 mg PO DAILY 01/30/18 [History] Polyethylene Glycol 3350 [MiraLAX] 17 gm PO DAILY 01/30/18 [History] Allergies/Adverse Reactions: 3 Allergy/AdvReac Type Severity Reaction Status Date / Time lisinopril [From Zestril] Allergy Rash Verified 01/17/18 13:50 Date of admission: 01/30/18 18:32 Primary care physician: Jc Tsai MD Consults: 02/01/18 15:43 Consult to Carbon Cleaner [CONS] Routine Reason for SW Consult: will need rehab at discharge 02/06/18 11:13 Consult to PICC team [Consult to Invasive Line Access Team] [CONS] Routine Reason for Consult: cellulitis, investor relations manager abx needed Line Type: PICC - Constitutional Vitals: Temp Pulse Resp BP Pulse Ox 97.8 F 86 20 161/64 90 02/06/18 07:42 02/06/18 07:42 02/06/18 07:42 02/06/18 07:42 02/06/18 07:42 General appearance: Present: cooperative, A&O X 3, morbidly obese, answers questions appropriately - Head Head exam: Present: normal inspection - Neck Neck exam general surgery: Present: supple - Respiratory Respiratory exam: Present: decreased breath sounds (secondary to body habitus) - Cardiovascular Cardiovascular exam: Present: RRR, +S1, +S2 - GI/Abdominal GI/Abdominal exam: Present: soft, no peritoneal signs - Neurological Exam Neurological exam: Present: no focal deficits - Psychiatric Psychiatric exam: Present: normal mood - Skin Skin exam: Present: excoriation (pt has cellulitis on LE bilaterally, wound vac applied), warm - Patient Status Disposition: Transfer SNF Condition: Fair Functional capacity at discharge: uses cane/walker Overall status at discharge: patient is progressing back to baseline - Discharge Instructions Follow Up With: Jc Tsai MD [Primary Care Provider] - - Diet and Activity Activity: as per physical therapy, increase activity as tolerated Diet: diabetic diet, low fat, low cholesterol, low salt diet <Alli Lopez - Last Filed: 02/06/18 20:20> Orders not resulted at time of discharge: Pending orders 02/01/18 10:50 Culture,Wound [RM] Routine 02/01/18 11:30 Culture,Tissue (Biopsy) [RM] Routine 02/07/18 04:00 Basic Metabolic Panel AM 0400 Date of Encounter: 02/06/18 - Discharge Diagnosis (1) UTI (urinary tract infection) Status: Resolved Qualifiers: Urinary tract infection type: site unspecified Hematuria presence: without hematuria Qualified Code(s): N39.0 - Urinary tract infection, site not specified (2) DVT prophylaxis Status: Acute (3) Morbid obesity Status: Chronic (4) HTN (hypertension) Status: Chronic (5) HLD (hyperlipidemia) Status: Chronic (6) Diastolic heart failure Status: Chronic (7) Ulcer of right heel Status: Chronic (8) Type 2 diabetes mellitus Status: Chronic (9) REGINALD on CPAP Status: Chronic (10) Sepsis Status: Resolved Qualifiers: Sepsis type: sepsis due to unspecified organism Qualified Code(s): A41.9 - Sepsis, unspecified organism (11) HAP (hospital-acquired pneumonia) Status: Suspected Hospital course: Ms. Magallanes is a 58 year old female - Time Spent with Patient Total time spent providing and/or coordinating discharge services: Date of admission: 01/30/18 18:32 Primary care physician: Jc Tsai MD Consults: 02/01/18 15:43 Consult to Carbon Cleaner [CONS] Routine Reason for SW Consult: will need rehab at discharge 02/06/18 11:13 Consult to PICC team [Consult to Invasive Line Access Team] [CONS] Routine Reason for Consult: cellulitis, investor relations manager abx needed Line Type: PICC 02/06/18 11:58 Consult to Invasive Line Access Team [CONS] Routine Reason for Consult: Picc Line Insertion Line Type: PICC PICC line indications: FPC Med/Antibiotic - Constitutional Vitals: Temp Pulse Resp BP Pulse Ox 97.8 F 78 16 155/68 96 02/06/18 15:35 02/06/18 15:35 02/06/18 15:35 02/06/18 15:35 02/06/18 15:35 - Attending Attestation Patient was seen and examined. I agree with the discharge summary as dictated above by the resident physician. Discharge plans and recommendations were made under my direct supervision.
--- NOTE | 2018-02-06 11:34 | Physician Discharge Referral ---
ExtendedCare Referral Info Transfer To: Signature Provider in Charge after Transfer: PCP Institutional Level of Care: Skilled - Diagnosis (1) Ulcer of right heel Priority: Primary Status: Chronic (2) HAP (hospital-acquired pneumonia) Priority: Secondary Status: Suspected (3) UTI (urinary tract infection) Priority: Secondary Status: Resolved (4) DVT prophylaxis Priority: Secondary Status: Acute (5) Morbid obesity Priority: Secondary Status: Chronic (6) HTN (hypertension) Priority: Secondary Status: Chronic (7) HLD (hyperlipidemia) Priority: Secondary Status: Chronic (8) Diastolic heart failure Priority: Secondary Status: Chronic (9) Type 2 diabetes mellitus Priority: Secondary Status: Chronic (10) REGINALD on CPAP Priority: Secondary Status: Chronic (11) Sepsis Priority: Secondary Status: Resolved Prognosis: Fair Aware of Diagnosis: Patient Aware of Prognosis: Patient - Transfer Medications Home Medications: Atorvastatin [Lipitor] 40 mg PO HS 01/11/16 [History] Insulin ASPART [Novolog Flexpen] 6 - 14 unit SQ TID 01/11/16 [History] Latanoprost [Xalatan] 1 drop BOTH EYES HS 01/11/16 [History] Primidone [Mysoline] 25 - 50 mg PO BID PRN 01/11/16 [History] Ascorbic Acid [Vitamin C] 500 mg PO BID 03/25/16 [History] Docusate Sodium [Colace] 200 mg PO BID 03/25/16 [History] Furosemide [Lasix] 40 mg PO BID 12/06/16 [History] Fluticasone Propionate Nasal [Flonase] 2 spray NS DAILY #1 bottle 08/28/17 [Rx] Brimonidine Tartrate/Timolol [Combigan 0.2%-0.5% Eye Drops] 1 drop OP BID [History] Diltiazem HCl [Diltiazem 12Hr ER] 120 mg PO DAILY 11/10/17 [History] Esomeprazole Magnesium [Nexium] 40 mg PO DAILY 11/10/17 [History] Gentamicin Oint [Garamycin] 1 appl TP BID 11/10/17 [History] Ketoconazole 2% CRM [Nizoral Cream] 1 appl TP DAILY 11/10/17 [History] Ketorolac Tromethamine 1 drop OP QID 11/10/17 [History] Losartan Potassium [Cozaar] 100 mg PO DAILY 11/10/17 [History] Tizanidine HCl 4 mg PO TID 11/20/17 [History] Calcium Carbonate [Tums] 1,000 mg PO Q4HR PRN tab.chew 11/24/17 [Rx] Carvedilol [Coreg] 6.25 mg PO BIDWM tablet 11/24/17 [Rx] Lactobacillus Acidophilus [Acidophilus] 1 each PO BID #10 capsule 11/24/17 [Rx] Pregabalin [Lyrica] 75 mg PO BID 30 Days #60 capsule 11/24/17 [Rx] clonazePAM [Klonopin] 0.5 mg PO BID PRN 5 Days #10 tablet 11/24/17 [Rx] Gabapentin [Neurontin] 300 mg PO HS 01/17/18 [History] Insulin Glargine,Hum.rec.anlog [Basaglar Kwikpen U-100] 40 unit SQ BID 01/17/18 [History] Potassium Chloride [K-Tab ER] 20 meq PO QID 01/17/18 [History] Fosfomycin Tromethamine [Monurol] 3 gm PO Q48H 8 Days #4 packet 01/23/18 [Rx] Nystatin POWDER [Nystop] 1 appl TP BID bottle 01/23/18 [Rx] Ferrous Sulfate 325 mg PO BID 01/30/18 [History] Loratadine [Allergy Relief] 10 mg PO DAILY 01/30/18 [History] Pantoprazole Sodium [Protonix] 40 mg PO DAILY 01/30/18 [History] Polyethylene Glycol 3350 [MiraLAX] 17 gm PO DAILY 01/30/18 [History] Allergies/Adverse Reactions: 3 Allergy/AdvReac Type Severity Reaction Status Date / Time lisinopril [From Zestril] Allergy Rash Verified 01/17/18 13:50 - Respiratory Orders Smoking Cessation: Smoking cessation has been advised. For more information, call the [place] Tobacco Quit Line at 9-581-LFBT-NOW. - Lab Orders Lab Orders: CBC - Advance Directives Code Status: Full Code - Mobility Orders Chair - Rehabiliation Orders Rehab Potential: Fair Rehab Orders: Evaluation for Physical Therapy, Evaluation for Occupational Therapy - Diet Orders No Added Salt (MARGARETH), Renal, Cardiac CERTIFICATION: I certify that the transfer of the above named patient to an Extended Care Facility is necessary for the continuing treatment of the diagnosis listed. The above information is true and accurate reflection of patient's current condition. Confidential - Redisclosure prohibited without a patient's written consent.
--- NOTE | 2018-02-06 11:54 | Event Note ---
Date of Encounter: 02/06/18 Time of Encounter: 11:45 Patient was seen and examined. I agree with the note as written by the resident physician. patient is here with sepsis stemming from right lower ext ulcer, cellulitis, and HCAP. s/p I&D in OR on 02/01. cultures + for MDR klebseilla dn proteus. Currently on Ertapenem and zosyn. Hemodynamically stable. Needing about 6- L O2. GEN: NAD CVS: RRR. S1, S2, No m/r/g RESP: CTAB ABD: Soft, NT, ND, +BS EXT: 1+ edema. 2+ DP. Lower extremities wrapped bilaterally NEURO: Nonfocal Can possibly discharge tomorrow finalize IV abx at discharge with help form ID. Patient is on both zosyn and ertapenem? PICC line Check CXR and give 40 mg IV lasix now and possibly more diuresis tonight and tomorrow labs in the morning. Glycemic control DVT ppx
[2018-02-06] MEDS ORDERED: Lidocaine -MPF 1% 5 ML AMPUL INFILT ONE (11:58)
[2018-02-06] MEDS ORDERED: Furosemide 40 MG/4 ML VIAL IVP ONE ×2 (13:13→15:31)
--- NOTE | 2018-02-06 13:18 | Podiatry Progress Note ---
Date of Encounter: 02/06/18 Time of Encounter: 12:15 - Assessment and Plan (1) Chronic venous hypertension w/ulcer and inflammation involv both sides Current Visit: No Status: Chronic (2) Diabetes mellitus Current Visit: No Status: Chronic Qualifiers: Diabetes mellitus type: type 2 Diabetes mellitus residential insulin use: with moth exterminator use Diabetes mellitus complication status: with skin complications Diabetes mellitus complication detail: with other skin complication Qualified Code(s): E11.628 - Type 2 diabetes mellitus with other skin complications; Z79.4 - assisted (current) use of insulin (3) Ulcer of right heel Current Visit: Yes Status: Chronic S/p incision and drainage and debridement of all necrotic tissue right foot/ heel, application of PuraPly wound matrix with graft jacket and wound VAC right heel on 02/01/[address] Stoll. A febrile, Overall significant improvement in erythema and swelling to BLE. Graft in place to right heel, healing uneventfully. Wound cultures of right leg from 01/18/18 isolated MRSA. Surgical biopsy culture from 02/01/18-prelim: Klebsiella pneumoniae MDRO, proteus penneri, GPC Wound culture right foot 02/01/18- prelim: Klebsiella pneumoniae MDRO, proteus penneri, GPC Microbiology 01/29/18 17:11 Peripheral Venipuncture Blood Culture - Final No growth. Final report. 01/29/18 17:11 Peripheral Venipuncture Blood Culture - Final No growth. Final report. 01/30/18 14:45 Urine,[place] Urine Culture - Final No significant growth. 01/29/18 17:15 Urine,[place] Legionella Antigen - Final 01/29/18 17:15 Urine,[place] Streptococcus pneumoniae Antigen (M - Final Lower Extremity CT 01/29/18 16:56 IMPRESSION: 1. Re- demonstration of extensive subcutaneous edema skin thickening of the bilateral lower extremities similar to previous exam. Findings may reflect chronic venous stasis/lymph edema versus cellulitis. No organized drainable fluid collection identified. 2. Ulceration identified along the plantar aspect of the right foot at the level of the calcaneus which is new compared with previous exam. 3. Re- demonstration of remote fracture of the left 5th metatarsal base with no evidence for osseous bridging or callus formation. Plan Wound vac changed today. Continue wound vac dressing changes as ordered. Antibiotics per Infectious Disease. drywall worker coordinating ECF. Follow up with Dr. Stoll in wound care one week after discharge from hospital. NWB to right foot. Qualifiers: Non-pressure ulcer stage: unspecified non-pressure ulcer stage Qualified Code(s): L97.419 - Non-pressure chronic ulcer of right heel and midfoot with unspecified severity (4) Venous stasis dermatitis of both lower extremities Current Visit: Yes Status: Chronic Overall significant improvement to stasis dermatitis of BLE. Plan: Keep BLE elevated. Continue wound care as ordered. Subjective Interval history: Patient is s/p incision and drainage and debridement of all necrotic tissue right foot/heel, application of PuraPly wound matrix with graft jacket and wound VAC right heel on 02/01/[address] Stoll. Patient is sitting up in bed. Patient has a wound VAC intact to the right heel. Dressings intact to both feet. Patient states she gets intermittent pain to the right heel, no pain currently. Patient is agreeable to going to ECF. Patient was supposed to be discharged to ECF today but was postponed due to decreased oxygen saturation. Objective - Vital Signs Vital Signs: Vital Signs Temp Pulse Resp BP Pulse Ox 02/06/18 11:34 102 18 163/69 89 02/06/18 07:42 97.8 F 86 20 161/64 90 02/06/18 04:55 80 16 166/68 92 02/05/18 22:15 95 02/05/18 20:58 98.4 F 79 16 166/70 94 02/05/18 15:24 98.6 F 71 17 133/61 92 Intake and Output 02/05/18 02/06/18 02/06/18 23:59 07:59 15:59 Intake Total 220 / 220 100 / 100 Output Total 0 / 0 500 / 500 900 / 900 Balance 220 / 220 -400 / -400 -900 / -900 Intake: IV Fluids 100 / 100 100 / 100 Zosyn 3.375 GM In 0.9 % Sodium 100 / 100 100 / 100 Chloride (Mini-Bag +) 100 ML @ 25 mls/hr IVPB Q8H [facility] Rx#: [id number] Oral 120 / 120 Output: Catheter 0 / 0 500 / 500 900 / 900 Other: Meal Dinner Percent of Meal Consumed 90% Stool Size Moderate Stool Consistency soft # Bowel Movement Diapers 1 Weight 143.5 kg Blood Glucose* 186 158 Patient Weight 02/06/18 23:59 Weight 143.5 kg - Exam Exam: General appearance: alert awake oriented X 3. Calm and pleasant, no acute distress.. Vascular: Unable to palpate pedal pulses due to edema, No evidence of cyanosis, pallor or rubor, Edema graded at 2+/4, Skin temperature warm, Homans Sign negative, capillary refill time is immediate to digits.. Integument: Skin with decreased turgor, decreased subcutaneous tissue, skin thin and shiny with trophic changes associated with comorbidities as described in history. Decreased Erythema to BLE, skin is warm, no lymphangitis, clearing of erythema to bilateral ankles and knees, dried scab noted to the medial aspect of toe #1 left foot. S/p: Right foot: wound graft in place to plantar aspect of right heel, light periwound erythema. Wound measures 6 cm in length x 6 cm in width. No streaking , no pus, no odor, no drainage observed to canister. - Lab Result Diagrams: 02/01/18 04:43 02/05/18 04:35 Labs: Abnormal lab results RBC 3.49 M/mcL (3.82-4.97) L 02/01/18 04:43 Hgb 8.5 g/dL (11.5-15.4) L 02/01/18 04:43 Hct 28.9 % (35.3-44.9) L 02/01/18 04:43 MCV 82.8 fL (83.0-100.0) L 02/01/18 04:43 MCH 24.4 pg (28.0-33.3) L 02/01/18 04:43 MCHC 29.4 g/dL (31.6-35.5) L 02/01/18 04:43 RDW 19.3 % (11.5-14.5) H 02/01/18 04:43 ESR >= 130 mm/hr (0-15) H 01/29/18 17:11 PT 13.8 Seconds (9.4-12.1) H 01/29/18 17:11 Carbon Dioxide 34 mEq/L (23-29) H 02/05/18 04:35 BUN 27 mg/dL (6-20) H 02/05/18 04:35 Est GFR (Non-Af Amer) 51 (> 60) L 02/05/18 04:35 Glucose 111 mg/dL (70-105) H 02/05/18 04:35 POC Glucose 186 mg/dL (70-99) H 02/05/18 21:30 Magnesium 1.5 mg/dL (1.6-2.6) L 01/30/18 04:41 Direct Bilirubin 0.3 mg/dL (0.0-0.2) H 01/29/18 17:11 AST 11 Units/L (13-39) L 01/29/18 17:11 Troponin I 0.19 ng/mL (< 0.04) H* 01/30/18 15:58 C-Reactive Protein 140 mg/L (Less than 10) H 01/29/18 17:11 B-Natriuretic Peptide 357 pg/mL (Less than 100) H 01/30/18 04:41 Albumin 2.7 g/dL (3.5-5.7) L 01/29/18 17:11 Globulin 5.1 g/dL (2.4-3.5) H 01/29/18 17:11 Albumin/Globulin Ratio 0.5 (1.1-2.2) L 01/29/18 17:11 Lipase 84 Units/L (11-82) H 01/29/18 17:11 Urine Clarity Turbid (Clear) A 01/29/18 17:15 Urine Protein 100 mg/dL (Neg-Trace) H 01/29/18 17:15 Urine Glucose (UA) 500 mg/dL (Normal) H 01/29/18 17:15 Urine Blood Moderate (Negative) H 01/29/18 17:15 Ur Leukocyte Esterase Large (Negative) H 01/29/18 17:15 Urine Microscopic RBC 15-30 per hpf (0-3) H 01/29/18 17:15 Urine Microscopic WBC TNTC per hpf (0-3) H 01/29/18 17:15 Ur Squamous Epith Cells Many per lpf (None-Few) H 01/29/18 17:15 Ur Culture Indicated? NO. (NO) A 01/29/18 17:15 Vancomycin Trough 12 mcg/mL (5-10) H 02/03/18 05:28 Microbiology, Last 48 Hours 02/01/18 11:30 Anaerobic Culture - Final Right Foot No anaerobes were recovered. 02/01/18 11:30 Surgical Biopsy Culture - Preliminary Right Foot Klebsiella pneumoniae MDRO Proteus penneri Gram Positive Cocci 02/01/18 10:50 Wound Culture - Preliminary Right Foot Klebsiella pneumoniae MDRO Proteus penneri Gram Positive Cocci Consult Discharge Plan - Plan Referrals: Jc Tsai MD [Primary Care Provider] -
[2018-02-06] MEDS: Acetaminophen 325 MG TABLET PO PRN (14:18)
[2018-02-06] MEDS: Gabapentin 300 MG CAPSULE PO SCH (22:13)
[2018-02-06] MEDS: Latanoprost 2.5 ML BOTTLE BOTH EYES SCH (22:14)
[2018-02-06] MEDS: Insulin DETEMIR 100 UNIT/ML X5UNITS SQ SCH (22:15)
[2018-02-07] MEDS: Piperacillin/Tazobactam 3.375 GM in 0.9 % Sodium Chloride Mini Bag 100 ML IVPB SCH ×3 (02:48→20:18)
[2018-02-07] MEDS: *HR* Heparin 5,000 UNIT/ML VIAL SQ SCH (05:43)
[2018-02-07 06:41] LABS: BUN/Creatinine Ratio 64 (6-26); Blood Urea Nitrogen 60 mg/dL (6-20); Calcium 8.5 mg/dL (8.6-10.3); Carbon Dioxide 37 mEq/L (23-29); Chloride 96 mEq/L (98-107); Glucose 165 mg/dL (70-105); Osmolality,Calculated 307 (280-300); Potassium 4.2 mEq/L (3.5-5.1); Sodium 138 mEq/L (136-145); eGFR For Non-African Americans > 60 (> 60)
[2018-02-07 08:23] LABS: Hematocrit 24.6 % (35.3-44.9); Hemoglobin 7.4 g/dL (11.5-15.4)
--- NOTE | 2018-02-07 08:56 | Infectious Disease Progress No ---
Date of Encounter: 02/07/18 Time of Encounter: 09:15 - Assessment and Plan (1) Sepsis Current Visit: No Status: Resolved Met 3/4 SIRS criteria, with leukocytosis, tachycardia, tachypnea - Known source of infection with multifocal pneumonia, UTI, and cellulitis - Home health nurse reported a fever of 102 before admission - Patient was given IV fluid resuscitation in the emergency department - Currently on IV Zosyn; will add oral Zyvox due to +VRE wound CX Qualifiers: Sepsis type: sepsis due to unspecified organism Qualified Code(s): A41.9 - Sepsis, unspecified organism (2) Ulcer of right heel Current Visit: Yes Status: Chronic - Patient has necrotic right heel ulcer and bilateral lower extremity cellulitis - Normally sees shop router Dr. Stoll - CT scan of the legs was negative for osteomyelitis; did not demonstrate extensive subcutaneous edema - Underwent surgical debridement - R foot wound CX: Klebsiella ESBL sensitive to Zosyn, Imipenem, Ertapenem, Proteus, KITCHEN HELP HANDYMAN - We recommend continuation of zosyn for 2-4 weeks; patient will also need agressive debridement and wound care - Will add oral Zyvox due to +VRE wound CX Qualifiers: Non-pressure ulcer stage: unspecified non-pressure ulcer stage Qualified Code(s): L97.419 - Non-pressure chronic ulcer of right heel and midfoot with unspecified severity (3) UTI (urinary tract infection) Current Visit: No Status: Resolved Patient was recently discharged from hospital on 01/23; during hospitalization, patient was discharged home to complete a course of doxycycline fosfomycin until 01/30 for UTI with ESBL Klebsiella - UA demonstrates large amount of leukocyte esterase, WBC TNTC - Urine culture from 01/30 is negative - Continue IV antibiotics as above Qualifiers: Urinary tract infection type: site unspecified Hematuria presence: without hematuria Qualified Code(s): N39.0 - Urinary tract infection, site not specified (4) HAP (hospital-acquired pneumonia) Current Visit: Yes Status: Suspected - Patient was recently discharged on 01/23 - On arrival, SPO2 was 84% on room air; heart rate in the 130s - Chest x-ray demonstrated increasing pulmonary edema with worsening basilar atelectasis - CTA demonstrated multifocal airspace consolidation throughout both lungs; most likely reflective of multifocal pneumonia. - Continue bronchodilators and incentive spirometry - IV antibiotics as above - Resp. infection panel negative - Legionella and strep antigen both negative - Sputum cx pending (5) Venous stasis dermatitis of both lower extremities Current Visit: Yes Status: Chronic - CT of the legs demonstrated extensive subcutaneous edema skin thickening of the bilateral lower extremities - Findings are likely reflective of chronic venous stasis/lymphedema versus cellulitis - No organized drainable fluid collection has been identified - Continue wound care (6) Diastolic heart failure Current Visit: No Status: Chronic - Acute on chronic diastolic CHF exacerbation - Presented with shortness of breath, pedal edema, rales on exam, and tachycardia with heart rate in the 130s - CXR revealed increasing pulmonary edema with worsening bibasilar atelectasis. - Echo 11/11/17 revealed LVEF 55-60%, mild concentric LVH - Management per primary team Qualifiers: Heart failure chronicity: chronic Qualified Code(s): I50.32 - Chronic diastolic (congestive) heart failure (7) Type 2 diabetes mellitus Current Visit: Yes Status: Chronic - HGB a1c level 11% on 09/20/17 - Continue basal and SSI - Monitor accu-checks Qualifiers: Diabetes mellitus oil heaterman insulin use: with oil heaterman use Diabetes mellitus complication status: with skin complications Diabetes mellitus complication detail: with foot ulcer Qualified Code(s): E11.621 - Type 2 diabetes mellitus with foot ulcer; L97.509 - Non-pressure chronic ulcer of other part of unspecified foot with unspecified severity; Z79.4 - terminal superintendent ( current) use of insulin (8) Thyroid nodule Current Visit: Yes Status: Acute - Incidentally found on chest CTA on 01/29; stable 2.4 cm low attenuation nodule within the left thyroid lobe. - Follow-up the outpatient setting (9) DOROTHEA (acute kidney injury) Current Visit: Yes Status: Acute Resolved - Subjective Interval history: Patient was seen and examined at bedside this morning. Patient reports feeling similar today as she did yesterday. Denies any pain in her foot. Denies fever , chills, shortness of breath, or abdominal pain. No further complaints at this time. Infect Dis PN-Objective Data - Labs CBC & Chem 7: 02/08/18 04:40 02/08/18 04:40 Labs: Laboratory Results - last 24 hr 02/06/18 02/06/18 02/06/18 07:38 11:31 16:36 Hgb Hct Sodium Potassium Chloride Carbon Dioxide BUN Creatinine Est GFR ( Amer) Est GFR (Non-Af Amer) BUN/Creatinine Ratio Glucose POC Glucose 158 H 185 H 189 H Calculated Osmolality Calcium Stool Occult Blood 02/06/18 02/07/18 02/07/18 22:12 04:28 05:42 Hgb Hct Sodium 138 Potassium 4.2 Chloride 96 L Carbon Dioxide 37 H BUN 60 H Creatinine 0.94 Est GFR ( Amer) > 60 Est GFR (Non-Af Amer) > 60 BUN/Creatinine Ratio 64 H Glucose 165 H POC Glucose 190 H Calculated Osmolality 307 H Calcium 8.5 L Stool Occult Blood Positive A 02/07/18 02/07/18 05:42 08:00 Hgb 7.4 L Hct 24.6 L Sodium Potassium Chloride Carbon Dioxide BUN Creatinine Est GFR ( Amer) Est GFR (Non-Af Amer) BUN/Creatinine Ratio Glucose POC Glucose 172 H Calculated Osmolality Calcium Stool Occult Blood Cultures: Cultures 02/01/18 11:30 Anaerobic Culture - Final Right Foot No anaerobes were recovered. 02/01/18 11:30 Surgical Biopsy Culture - Preliminary Right Foot Klebsiella pneumoniae MDRO Proteus penneri Gram Positive Cocci 02/01/18 10:50 Wound Culture - Preliminary Right Foot Klebsiella pneumoniae MDRO Proteus penneri Gram Positive Cocci Serology 02/07/18 01/30/18 Range/Units 04:28 18:41 Stool Occult Blood Positive A (Negative) Chlamy pneumoniae PCR Not Detected (Not Detect) Adenovirus (PCR) Not Detected (Not Detect) B. pertussis DNA (PCR) Not Detected (Not Detect) B.parapertussis DNA PCR Not Detected (Not Detect) Coronavirus OC43 (PCR) Not Detected (Not Detect) Coronavirus HKU1 (PCR) Not Detected (Not Detect) Coronavirus 229E (PCR) Not Detected (Not Detect) Coronavirus NL63 (PCR) Not Detected (Not Detect) Human Metapneumovir PCR Not Detected (Not Detect) Influenza A (H1) PCR Not Detected (Not Detect) Influ A (H1N1/09) PCR Not Detected (Not Detect) Influenza A (H3) PCR Not Detected (Not Detect) Influenza A Untype (PCR) Not Detected (Not Detect) Influenza Type B (PCR) Not Detected (Not Detect) M.pneumoniae DNA (PCR) Not Detected (Not Detect) Parainfluenza 1 (PCR) Not Detected (Not Detect) Parainfluenza 2 (PCR) Not Detected (Not Detect) Parainfluenza 3 (PCR) Not Detected (Not Detect) Parainfluenza 4 (PCR) Not Detected (Not Detect) RSV (PCR) Not Detected (Not Detect) Entero/Rhino (PCR) Not Detected (Not Detect) - Impressions Impressions Chest X-Ray 02/06/18 13:11 IMPRESSION: Cardiomegaly with pulmonary edema and small to moderate bilateral pleural effusions. D/ / Chato Cooper MD / Chato Cooper MD Interpreting Provider: Chato Cooper MD Exam - Constitutional Vitals: Temp Pulse Resp BP Pulse Ox 98.0 F 90 15 174/87 94 02/07/18 08:04 02/07/18 08:04 02/07/18 04:00 02/07/18 08:04 02/07/18 08:04 - Additional findings Additional findings: - Head Head exam: Present: atraumatic, normal inspection - Respiratory Respiratory exam: Present: wheezes. Absent: decreased breath sounds, rhonchi, tachypnea - Cardiovascular Cardiovascular exam: Present: RRR, +S1, +S2 - Extremities Exam Additional comments: Both lower extremities are currently wrapped. S/P debridement of R foot. - Psychiatric Psychiatric exam: Present: normal affect - Skin Skin exam: Present: rash Consult Discharge Plan - Plan Referrals: Jc Tsai MD [Primary Care Provider] - - Attending Attestation I examined this patient and my medical decision-making was reviewed with the Resident Physician. I agree with the documented findings, disposition and treatment plan as described except to the extent set forth below.
--- NOTE | 2018-02-07 09:28 | Internal Med Progress Note ---
Date of Encounter: 02/07/18 Time of Encounter: 08:30 - Assessment and plan (1) Melena Current Visit: Yes Status: Acute Assessment and plan: Pt reportedly had "erinn syrup" bowel movements last night -FOBT was done and was positive Pt had H&H , hemoglobin 7.1 -GI consulted -GI prophylaxis with Protonix 40mgBID -Suspected GIB = pt BUN is increasing was 46 yesterday, 67 today. Creatinine is 1.48 -GI to see -Pt denies abdominal pain, N/V, hemetemesis, or seeing any blood -Pt denies any dizziness, chest pain, SOB, vision changes (2) Ulcer of right heel Current Visit: Yes Status: Chronic Assessment and plan: POD #6 s/p debridement of right heel with podiatry -wound vac applied, pt will be discharged to SNF for nursing home therapy -Wound cultures growing ESBL Klebsiella, Proteus penneri, gram (+) cocci - Patient will need long term care phlebotomist abx, PICC line consulted. She is on zosyn, as per ID and will be on IV abx for 2-4wks PT evaluation recommend ECF; social insurance analyst on board -pt will go to SNF upon d/c -pt will get PICC line Qualifiers: Non-pressure ulcer stage: unspecified non-pressure ulcer stage Qualified Code(s): L97.419 - Non-pressure chronic ulcer of right heel and midfoot with unspecified severity (3) Sepsis Current Visit: Yes Status: Resolved Assessment and plan: Presented with leukocytosis and tachycardia, possible pneumonia, bilateral leg cellulitis, right foot ulcer. Improved. Follow up final cultures and continue IV antibiotics, further plan as below. Today WBC is 6.1 HR 98 most likely due to low hemoglobin Qualifiers: Sepsis type: sepsis due to unspecified organism Qualified Code(s): A41.9 - Sepsis, unspecified organism (4) Diastolic heart failure Current Visit: No Status: Chronic Assessment and plan: Pt is on Lasix and beta blockers -pt has telemetry -TTE in 11/2016 showed LVEF 60%, concentric LVH, moderate diastolic dysfxn -pt should eat a heart healthy diet and lose weight Pt was fluid overloaded yesterday -ended up on 8L O2, now she is on 93% 4L -did a STAT CXR showing pulmonary edema -Lasix IVP 40mg x 2 -BMP was within normal limits, other than BUN/Communications Intern which were 67 and 1.48 respectively Qualifiers: Heart failure chronicity: chronic Qualified Code(s): I50.32 - Chronic diastolic (congestive) heart failure (5) HAP (hospital-acquired pneumonia) Current Visit: Yes Status: Suspected Assessment and plan: CT of chest showed mulitfocal airspace consolidation in both lungs -multifocal pneumonia -pt is on broad spectrum abx - ertapenem and zosyn -blood cultures negative -legionella and s pneumo antigen negative -respiraotry infxn panel negative -infectious dz is managing abx -PICC line team consulted for nursing home abx because of the ulcer/cellulitis -pt is on zosyn pt remains afrebrile and has no leukocytosis -last WBC count 6.1 (6) DVT prophylaxis Current Visit: Yes Status: Acute Assessment and plan: Heparin subQ TID will be discon't Will put pt on SCD (7) Morbid obesity Current Visit: No Status: Chronic Assessment and plan: Lifestyle modification BMI 51.5 Pt should eat a low fat, low cholesterol renal diet (8) HTN (hypertension) Current Visit: Yes Status: Chronic Assessment and plan: Pt is on Lasix, carvidiol BP today is 166/79 -pt BP is not well controlled. Pt needs to follow up with PCP for HTN Qualifiers: Hypertension type: essential hypertension Qualified Code(s): I10 - Essential (primary) hypertension (9) HLD (hyperlipidemia) Current Visit: No Status: Chronic Assessment and plan: Pt is on Lipitor Pt should follow up with PCP for lifestyle modifications -encourage low fat, low cholesterol heart healthy diet Qualifiers: Hyperlipidemia type: unspecified Qualified Code(s): E78.5 - Hyperlipidemia , unspecified (10) Type 2 diabetes mellitus Current Visit: Yes Status: Chronic Assessment and plan: Blood sugars noted to be well-controlled; sliding scale insulin as needed. Diabetic diet. -Pt needs lifestyle modifications Qualifiers: Diabetes mellitus nursing home insulin use: with nursing home use Diabetes mellitus complication status: with skin complications Diabetes mellitus complication detail: with foot ulcer Qualified Code(s): E11.621 - Type 2 diabetes mellitus with foot ulcer; L97.509 - Non-pressure chronic ulcer of other part of unspecified foot with unspecified severity; Z79.4 - long term care pharmacist ( current) use of insulin (11) REGINALD on CPAP Current Visit: Yes Status: Chronic Assessment and plan: Continue CPAP at night - Time Spent With Patient Total time spent is greater than 50% in coordination of care (as documented) at patient's floor/unit and/or counseling patient: - Subjective Interval history: Pt is seen at bedside. She is hospital day 9, s/p right diabetic foot ulcer debridement by hydroelectric station chief. Pt reportedly had tarry, "Erinn Syrup" colored bowel movements over the night. -FOBT ordered and was positive -GI consulted -Started Protonix 40mg BID IVP -H&H stat... hemoglobin was 7.3, will watch hemoglobin and do serial H&H. Type and screen pt for blood type in case transfusion needed Pt has no complaints. She denies chest pain, SOB, abdominal pain, dysuria, hematuria. She wants to leave and go to SNF. -pt is on Zosyn as per ID, should be on IV abx for 2-4wks Fluids - none at this time Electrolytes - no abnormal values Nutrition - tolerating diet, on cardiac/diabetic diet GI prophylaxis - Protonix 40mg BID IVP DVT prophylaxis - currently on Heparin SQ, will stop and switch to SCD - Constitutional Vitals: Temp Pulse Resp BP Pulse Ox 98.0 F 90 15 174/87 94 02/07/18 08:04 02/07/18 08:04 02/07/18 04:00 02/07/18 08:04 02/07/18 08:04 General appearance: Present: cooperative, A&O X 3, morbidly obese, answers questions appropriately - Head Head exam: Present: normal inspection - Neck Neck exam general surgery: Present: supple - Cardiovascular Cardiovascular exam: Present: tachycardia - GI/Abdominal GI/Abdominal exam: Present: no peritoneal signs. Absent: tenderness - Neurological Exam Neurological exam: Present: oriented X3, no focal deficits - Psychiatric Psychiatric exam: Present: normal mood - Skin Skin exam: Present: excoriation (B/L cellulitis) Internal Medicine: Result - Labs CBC & Chem 7: 02/07/18 09:51 02/07/18 05:42 Labs: Short CBC 02/07/18 Range/Units 05:42 Hgb 7.4 L (11.5-15.4) g/dL Hct 24.6 L (35.3-44.9) % BMP 02/07/18 05:42 Sodium 138 Potassium 4.2 Chloride 96 L Carbon Dioxide 37 H BUN 60 H Creatinine 0.94 Glucose 165 H Calcium 8.5 L - ABG Interpretation ABG results: PT/INR, D-dimer PT 13.8 Seconds (9.4-12.1) H 01/29/18 17:11 - Impressions Impressions Chest X-Ray 02/06/18 13:11 IMPRESSION: Cardiomegaly with pulmonary edema and small to moderate bilateral pleural effusions. D/ / Chato Cooper MD / Chato Cooper MD Interpreting Provider: Chato Cooper MD Consult Discharge Plan - Plan Referrals: Jc Tsai MD [Primary Care Provider] -
[2018-02-07 10:08] LABS: Basophils # 0.1 K/mcL (0.0-0.2); Basophils % 0.7 %; Eosinophils # 0.3 K/mcL (0.0-0.6); Eosinophils % 1.7 %; Hematocrit 24.3 % (35.3-44.9); Hemoglobin 7.3 g/dL (11.5-15.4); Immature Granulocytes % 1.5 % (0-4); Immature Platelets 6.6 % (1.1-6.1); Lymphocytes # 2.9 K/mcL (0.6-4.6); Lymphocytes % 18.9 %; Mean Corpuscular Hemoglobin 24.7 pg (28.0-33.3); Mean Corpuscular Volume 82.4 fL (83.0-100.0); Mean Platelet Volume 11.6 fL (9.4-12.4); Monocytes # 0.8 K/mcL (0.0-1.3); Monocytes % 5.5 %; Neutrophils # 10.8 K/mcL (1.6-8.9); Nucleated Red Blood Cells 0.3 /100 WBC (0); Platelet Count 439 K/mcL (140-400); Red Blood Count 2.95 M/mcL (3.82-4.97); Segmented Neutrophils % 71.7 %
[2018-02-07 10:29] LABS: Adenovirus F 40/41 PCR Not detected (Not detect); Astrovirus PCR Not detected (Not detect); C.difficile Toxin A/B by PCR Not detected (Not detect); Campylobacter by PCR Not detected (Not detect); Cryptosporidium by PCR Not detected (Not detect); Cyclospora cayetanensis PCR Not detected (Not detect); E. coli O157 by PCR Not detected (Not detect); Entamoeba histolytica PCR Not detected (Not detect); Enteroaggregative E.coli(EAEC) Not detected (Not detect); Enteropathogenic E.coli(EPEC) Not detected (Not detect); Enterotoxigenic E.coli (ETEC) Not detected (Not detect); Giardia lamblia PCR Not detected (Not detect); Norovirus GI/GII PCR Not detected (Not detect); Plesiomonas shigelloides PCR Not detected (Not detect); Rotavirus A PCR Not detected (Not detect); Salmonella PCR Not detected (Not detect); Sapovirus PCR Not detected (Not detect); Shig/EnteroinvasiveE coli EIEC Not detected (Not detect); Shigalike tox-prod E coli STEC Not detected (Not detect); Vibrio PCR Not detected (Not detect); Vibrio cholerae PCR Not detected (Not detect); Yersinia enterocolitica PCR Not detected (Not detect)
[2018-02-07] MEDS: Lactobacillus 1 EACH CAP.SPRINK PO SCH ×2 (10:40→20:17)
[2018-02-07] MEDS: Thiamine (B-1) 100 MG TABLET PO SCH (10:40)
[2018-02-07] MEDS: Pregabalin 75 MG CAPSULE PO SCH ×2 (10:40→20:18)
[2018-02-07] MEDS: Furosemide 40 MG TABLET PO SCH (10:40)
[2018-02-07] MEDS: Diltiazem CD (24hr) 120 MG CAPSULE PO SCH (10:40)
[2018-02-07] MEDS: tiZANidine 4 MG TABLET PO SCH ×3 (10:41→20:18)
[2018-02-07] MEDS: Insulin LISPRO 300 UNITS/3 ML VIAL SQ SCH ×4 (10:41→20:32)
[2018-02-07] MEDS: Pantoprazole 40 MG VIAL IVP SCH ×2 (10:56→20:17)
--- NOTE | 2018-02-07 11:30 | Event Note ---
Date of Encounter: 02/07/18 Time of Encounter: 11:25 Patient was seen and examined. I agree with the note as written by the resident physician. patient is here with sepsis stemming from right lower ext ulcer, cellulitis, and HCAP. s/p I&D in OR on 02/01. cultures + for MDR klebseilla, proteus, and now VRE. multiple abx since admission and currently on zosyn and zyvox added. Hemodynamically stable. O2 needs down to 4L from 6L GEN: NAD CVS: RRR. S1, S2, No m/r/g RESP: CTAB ABD: Soft, NT, ND, +BS EXT: 1+ edema. 2+ DP. Lower extremities wrapped bilaterally NEURO: Nonfocal c/w current zyvox and zosyn. Appreciate ID help WBC up to 15.1 PICC line lasix 40 mg IV BID. Wean O2 as tolerated hgb 7.3 and was 12.7 back on 01/17/2018. FOBT +. c/s GI IV protonix labs in the morning. Glycemic control DVT ppx
--- NOTE | 2018-02-07 12:36 | Gastroenterology Consult Note ---
<Federico Lomeli - Last Filed: 02/07/18 12:33> Date of Encounter: 02/07/18 Time of Encounter: 10:35 - Assessment and plan (1) Melena Current Visit: Yes Status: Acute Assessment and plan: Fecal occult blood test positive. Plan for EGD tomorrow to r/o esophagitis, gastritis, duodenitis, PUD, MW tear, or AVM. Keep NPO at midnight. (2) Anemia Current Visit: Yes Status: Acute Assessment and plan: Hgb on admission was 10.2 and this AM Hgb 7.4. Fecal occult blood test positive. Continue to monitor CBC and transfuse PRBC as needed. Plan for EGD tomorrow. Keep NPO at midnight. Qualifiers: Anemia type: unspecified type Qualified Code(s): D64.9 - Anemia, unspecified (3) Sepsis Current Visit: No Status: Resolved Qualifiers: Sepsis type: sepsis due to unspecified organism Qualified Code(s): A41.9 - Sepsis, unspecified organism (4) Morbid obesity Current Visit: No Status: Chronic - Time Spent With Patient Total time spent is greater than 50% in coordination of care (as documented) at patient's floor/unit and/or counseling patient: GI History of Present Illness - Data of Consult Patient: known to practice within the last 3 years Consult date: 02/07/18 Requesting Physician: Skye Deleon MD - Consult Narrative Reason for consult: FOBT positive History of present illness: Ms. Magallanes is a 58 year old female with PMHx of CHF, DM with neuropathy, HTN, and worsening diabetic ulcers who presents due to fall, fever, chills, cough, and SOB. Patient was septic with multifocal pneumonia, UTI, and cellulitis, and was treated with IV antibiotics. Pt underwent incision, drainage, and debridement of necrotic tissue of right foot/heel with would VAC placed. We were consulted to evaluate her anemia and positive fecal occult blood test. Hgb on admission was 10.2 and this AM Hgb 7.4. Procedures: Colonoscopy 03/25/2016 Dr. Woodward: Normal EGD 03/25/2016 Dr. Woodward: Normal NSAIDs: None Anticoagulation: None Past Med Surg Social Fam HX - Past Medical History Medical history: CHF, diabetes, hypertension, other Additional medical history: DM Neuropathy Psychiatric history: depression - Past Surgical History Surgical History: hysterectomy, other Additional surgical history: neck surgery, - Social History Smoking Status: Never smoker Smokeless Tobacco Status: No Alcohol use: none Drug use: none - Family History Mother Adopted: No Family Member Ethnicity: Non- Living Status: Hx Family Endocrine Disorder: Yes (diabetes type 2) Father Adopted: No Family Member Ethnicity: Non- Living Status: Age at : 55 Cause of : kidney problems Hx Family Cardiac Disorders: Yes (hypertension) Hx Family Respiratory Disorders: No Hx Family Cancer: No Hx Family GI Disorders: No Hx Family Endocrine Disorder: Yes (kidney disease) - Gastrointestinal Gastrointestinal: Present: as per HPI - Constitutional Constitutional: as per HPI - EENT Eyes: as per HPI Ears: Present: as per HPI Nose, mouth and throat: Present: as per HPI - Cardiovascular Cardiovascular ROS: Present: as per HPI - Respiratory Respiratory IM: Present: as per HPI - Genitourinary Genitourinary: Absent: change in color, Urinary frequency - Neurological ROS Neurological GI: Present: as per HPI - Hematologic/Lymphatic Hematologic/Lymphatic pediatric: Present: as per HPI - Musculoskeletal Musculoskeletal ROS GI: Present: as per HPI - Integumentary Integumentary GI: Present: as per HPI - Psychiatric ROS Psychiatric GI: Present: as per HPI - Endocrine Endocrine IM: Present: as per HPI - Constitutional Vitals: Temp Pulse Resp BP Pulse Ox 98.0 F 100 15 185/81 92 02/07/18 08:04 02/07/18 11:34 02/07/18 04:00 02/07/18 11:34 02/07/18 11:34 General appearance: Present: cooperative, A&O X 3, no acute distress, answers questions appropriately - Head Head exam: Present: atraumatic, normocephalic - Eye Eye exam: Present: normal appearance, sclera anicteric - ENT ENT exam: Present: mucous membranes moist - Neck Neck exam general surgery: Present: normal inspection, trachea midline - Respiratory Respiratory exam: Present: decreased breath sounds, CTAB. Absent: rales, rhonchi - Cardiovascular Cardiovascular exam: Present: RRR, +S1, +S2 - GI/Abdominal GI/Abdominal exam: Present: soft, no peritoneal signs. Absent: distended, firm , guarding, tenderness Additional comments: obese - Rectal Rectal exam: Present: deferred - Extremities Exam Additional comments: Bilateral lower extremities wrapped in gauze. - Neurological Exam Neurological exam: Present: no focal deficits - Psychiatric Psychiatric exam: Present: normal affect, normal mood - Skin Skin exam: Present: dry, intact, normal color, warm Results - Labs CBC & Chem 7: 02/07/18 09:51 02/07/18 05:42 Labs: Last Result ESR >= 130 mm/hr (0-15) H 01/29/18 17:11 Calcium 8.5 mg/dL (8.6-10.3) L 02/07/18 05:42 Troponin I 0.19 ng/mL (< 0.04) H* 01/30/18 15:58 C-Reactive Protein 140 mg/L (Less than 10) H 01/29/18 17:11 Stool Occult Blood Positive (Negative) A 02/07/18 04:28 Entire Visit Hgb 7.3 g/dL (11.5-15.4) L 02/07/18 09:51 Hct 24.3 % (35.3-44.9) L 02/07/18 09:51 PT 13.8 Seconds (9.4-12.1) H 01/29/18 17:11 Total Bilirubin 0.3 mg/dL (0.3-1.0) 01/29/18 17:11 AST 11 Units/L (13-39) L 01/29/18 17:11 ALT 10 Units/L (7-52) 01/29/18 17:11 Lipase 84 Units/L (11-82) H 01/29/18 17:11 - ABG ABG results: PT/INR, D-dimer PT 13.8 Seconds (9.4-12.1) H 01/29/18 17:11 - Impressions Impressions Chest X-Ray 02/06/18 13:11 IMPRESSION: Cardiomegaly with pulmonary edema and small to moderate bilateral pleural effusions. D/ / Chato Cooper MD / Chato Cooper MD Interpreting Provider: Chato Cooper MD Consult Discharge Plan - Plan Referrals: Jc Tsai MD [Primary Care Provider] - <Wolf Woodward - Last Filed: 02/07/18 17:25> Date of Encounter: 02/07/18 Time of Encounter: 15:30 - Time Spent With Patient Total time spent is greater than 50% in coordination of care (as documented) at patient's floor/unit and/or counseling patient: GI History of Present Illness - Data of Consult Requesting Physician: Skye Deleon MD - Consult Narrative History of present illness: Ms. Magallanes is a 58 year old female - Constitutional Vitals: Temp Pulse Resp BP Pulse Ox 98.2 F 84 16 124/64 94 02/07/18 16:52 02/07/18 16:52 02/07/18 16:52 02/07/18 16:52 02/07/18 16:52 Results - Labs CBC & Chem 7: 02/07/18 13:18 02/07/18 05:42 Labs: Last Result ESR >= 130 mm/hr (0-15) H 01/29/18 17:11 Calcium 8.5 mg/dL (8.6-10.3) L 02/07/18 05:42 Troponin I 0.19 ng/mL (< 0.04) H* 01/30/18 15:58 C-Reactive Protein 140 mg/L (Less than 10) H 01/29/18 17:11 Stool Occult Blood Positive (Negative) A 02/07/18 04:28 Entire Visit Hgb 6.5 g/dL (11.5-15.4) L 02/07/18 13:18 Hct 21.2 % (35.3-44.9) L 02/07/18 13:18 PT 13.8 Seconds (9.4-12.1) H 01/29/18 17:11 Total Bilirubin 0.3 mg/dL (0.3-1.0) 01/29/18 17:11 AST 11 Units/L (13-39) L 01/29/18 17:11 ALT 10 Units/L (7-52) 01/29/18 17:11 Lipase 84 Units/L (11-82) H 01/29/18 17:11 - ABG ABG results: PT/INR, D-dimer PT 13.8 Seconds (9.4-12.1) H 01/29/18 17:11 - Attending Attestation I have personally performed a face to face evaluation on this patient. I have reviewed and agree with the care plan. History and Exam by me shows: Patient seen patient with multiple medical problems now with the anemia and melena. Recommendation: EGD in the morning continue twice a day PPI agree with blood transfusion.
[2018-02-07] MEDS: *HR* OxyCODONE Immed Rel 5 MG TABLET PO PRN (13:05)
[2018-02-07] MEDS ORDERED: Furosemide 40 MG/4 ML VIAL IVP ONE (13:11)
[2018-02-07] MEDS ORDERED: 0.9 % Sodium Chloride 500 ML ONE (13:33)
[2018-02-07 14:17] LABS: Hematocrit 21.2 % (35.3-44.9); Hemoglobin 6.5 g/dL (11.5-15.4)
[2018-02-07] MEDS ORDERED: Furosemide 40 MG/4 ML VIAL IVP SCH (17:00)
[2018-02-07] MEDS ORDERED: 0.9 % Sodium Chloride 1,000 ML ONE (17:55)
[2018-02-07] MEDS ORDERED: 0.9 % Sodium Chloride 500 ML IVC ONE (18:25)
[2018-02-07] MEDS: Linezolid 600 MG TABLET PO SCH (20:17)
[2018-02-07] MEDS: Gabapentin 300 MG CAPSULE PO SCH (20:18)
[2018-02-07] MEDS: Insulin DETEMIR 100 UNIT/ML X5UNITS SQ SCH (21:21)
[2018-02-07 21:31] LABS: Hematocrit 21.1 % (35.3-44.9); Hemoglobin 6.9 g/dL (11.5-15.4)
[2018-02-08] MEDS: Latanoprost 2.5 ML BOTTLE BOTH EYES SCH (00:03)
[2018-02-08] MEDS: Piperacillin/Tazobactam 3.375 GM in 0.9 % Sodium Chloride Mini Bag 100 ML IVPB SCH ×3 (04:49→18:18)
[2018-02-08 05:08] LABS: Basophils # 0.1 K/mcL (0.0-0.2); Basophils % 0.8 %; Eosinophils # 0.3 K/mcL (0.0-0.6); Hematocrit 24.4 % (35.3-44.9); Hemoglobin 7.6 g/dL (11.5-15.4); Immature Granulocytes % 3.3 % (0-4); Lymphocytes # 4.3 K/mcL (0.6-4.6); Lymphocytes % 30.9 %; Mean Corpuscular HGB Conc 31.1 g/dL (31.6-35.5); Mean Corpuscular Hemoglobin 26.5 pg (28.0-33.3); Mean Platelet Volume 11.8 fL (9.4-12.4); Monocytes # 1.2 K/mcL (0.0-1.3); Monocytes % 8.3 %; Neutrophils # 7.6 K/mcL (1.6-8.9); Nucleated Red Blood Cells 1.3 /100 WBC (0); Platelet Count 325 K/mcL (140-400); Red Blood Count 2.87 M/mcL (3.82-4.97); Red Cell Distribution Width 18.6 % (11.5-14.5); Segmented Neutrophils % 54.7 %
[2018-02-08 05:18] LABS: Albumin 2.2 g/dL (3.5-5.7); Albumin/Globulin Ratio 0.6 (1.1-2.2); Bilirubin,Total 0.4 mg/dL (0.3-1.0); Calcium 8.3 mg/dL (8.6-10.3); Globulin 3.7 g/dL (2.4-3.5); Total Protein 5.9 g/dL (6.4-8.9)
[2018-02-08] MEDS: Insulin LISPRO 300 UNITS/3 ML VIAL SQ SCH ×3 (08:00→18:19)
[2018-02-08] MEDS ORDERED: 0.9 % Sodium Chloride 250 ML ONE (08:14)
[2018-02-08] MEDS: tiZANidine 4 MG TABLET PO SCH ×2 (08:28→18:18)
[2018-02-08] MEDS: Thiamine (B-1) 100 MG TABLET PO SCH (08:28)
[2018-02-08] MEDS: Pregabalin 75 MG CAPSULE PO SCH (08:28)
[2018-02-08] MEDS: Lactobacillus 1 EACH CAP.SPRINK PO SCH (08:28)
[2018-02-08] MEDS: Diltiazem CD (24hr) 120 MG CAPSULE PO SCH (08:28)
[2018-02-08] MEDS: Pantoprazole 40 MG VIAL IVP SCH (08:29)
[2018-02-08] MEDS: Linezolid 600 MG TABLET PO SCH (08:32)
--- NOTE | 2018-02-08 09:00 | Infectious Disease Progress No ---
Date of Encounter: 02/08/18 Time of Encounter: 09:00 - Assessment and Plan (1) Sepsis Current Visit: No Status: Resolved Met 3/4 SIRS criteria, with leukocytosis, tachycardia, tachypnea - Known source of infection with multifocal pneumonia, UTI, and cellulitis - Home health nurse reported a fever of 102 before admission - Patient was given IV fluid resuscitation in the emergency department - Currently on IV Zosyn and PO Zyvox Qualifiers: Sepsis type: sepsis due to unspecified organism Qualified Code(s): A41.9 - Sepsis, unspecified organism (2) Ulcer of right heel Current Visit: Yes Status: Chronic - Patient has necrotic right heel ulcer and bilateral lower extremity cellulitis - Normally sees compensation/benefits specialist Dr. Stoll - CT scan of the legs was negative for osteomyelitis; did not demonstrate extensive subcutaneous edema - Underwent surgical debridement - R foot wound CX: Klebsiella ESBL sensitive to Zosyn, Imipenem, Ertapenem, Proteus, LOW PRESSURE FIRER - We recommend continuation of zosyn for 2-4 weeks; patient will also need agressive debridement and wound care - PO Zyvox due to +VRE wound CX Qualifiers: Non-pressure ulcer stage: unspecified non-pressure ulcer stage Qualified Code(s): L97.419 - Non-pressure chronic ulcer of right heel and midfoot with unspecified severity (3) UTI (urinary tract infection) Current Visit: No Status: Resolved Patient was recently discharged from hospital on 01/23; during hospitalization, patient was discharged home to complete a course of doxycycline fosfomycin until 01/30 for UTI with ESBL Klebsiella - UA demonstrates large amount of leukocyte esterase, WBC TNTC - Urine culture from 01/30 is negative - Continue IV antibiotics as above Qualifiers: Urinary tract infection type: site unspecified Hematuria presence: without hematuria Qualified Code(s): N39.0 - Urinary tract infection, site not specified (4) HAP (hospital-acquired pneumonia) Current Visit: Yes Status: Suspected - Patient was recently discharged on 01/23 - On arrival, SPO2 was 84% on room air; heart rate in the 130s - Chest x-ray demonstrated increasing pulmonary edema with worsening basilar atelectasis - CTA demonstrated multifocal airspace consolidation throughout both lungs; most likely reflective of multifocal pneumonia. - Continue bronchodilators and incentive spirometry - IV antibiotics as above - Resp. infection panel negative - Legionella and strep antigen both negative - Sputum cx pending (5) Venous stasis dermatitis of both lower extremities Current Visit: Yes Status: Chronic - CT of the legs demonstrated extensive subcutaneous edema skin thickening of the bilateral lower extremities - Findings are likely reflective of chronic venous stasis/lymphedema versus cellulitis - No organized drainable fluid collection has been identified - Continue wound care (6) Diastolic heart failure Current Visit: No Status: Chronic - Acute on chronic diastolic CHF exacerbation - Presented with shortness of breath, pedal edema, rales on exam, and tachycardia with heart rate in the 130s - CXR revealed increasing pulmonary edema with worsening bibasilar atelectasis. - Echo 11/11/17 revealed LVEF 55-60%, mild concentric LVH - Management per primary team Qualifiers: Heart failure chronicity: chronic Qualified Code(s): I50.32 - Chronic diastolic (congestive) heart failure (7) Type 2 diabetes mellitus Current Visit: Yes Status: Chronic - HGB a1c level 11% on 09/20/17 - Continue basal and SSI - Monitor accu-checks Qualifiers: Diabetes mellitus exterminator insulin use: with group home use Diabetes mellitus complication status: with skin complications Diabetes mellitus complication detail: with foot ulcer Qualified Code(s): E11.621 - Type 2 diabetes mellitus with foot ulcer; L97.509 - Non-pressure chronic ulcer of other part of unspecified foot with unspecified severity; Z79.4 - prison ( current) use of insulin (8) Thyroid nodule Current Visit: Yes Status: Acute - Incidentally found on chest CTA on 01/29; stable 2.4 cm low attenuation nodule within the left thyroid lobe. - Follow-up the outpatient setting (9) DOROTHEA (acute kidney injury) Current Visit: Yes Status: Acute Resolved - Subjective Interval history: Patient was seen and examined at bedside this morning. Patient reports feeling malaise, fatigue, and mild shortness of breath, Denies any pain in her foot. Denies fever, chills, or abdominal pain. No further complaints at this time. Infect Dis PN-Objective Data - Labs CBC & Chem 7: 02/08/18 13:03 02/08/18 04:40 Labs: Laboratory Results - last 24 hr 02/07/18 02/07/18 02/07/18 04:28 09:51 09:51 WBC 15.1 H D RBC 2.95 L Hgb 7.3 L Hct 24.3 L MCV 82.4 L MCH 24.7 L MCHC 30.0 L RDW 19.0 H Plt Count 439 H D MPV 11.6 Immature Gran % 1.5 Seg Neutrophils % 71.7 Lymphocytes % 18.9 Monocytes % 5.5 Eosinophils % 1.7 Basophils % 0.7 Neutrophils # 10.8 H Lymphocytes # 2.9 Monocytes # 0.8 Eosinophils # 0.3 Basophils # 0.1 Nucleated RBCs/100 WBC 0.3 H Immature Plt Fraction 6.6 H Sodium Potassium Chloride Carbon Dioxide BUN Creatinine Est GFR ( Amer) Est GFR (Non-Af Amer) BUN/Creatinine Ratio Glucose POC Glucose Calculated Osmolality Calcium Total Bilirubin AST ALT Alkaline Phosphatase Serum Total Protein Albumin Globulin Albumin/Globulin Ratio Stl C. cayetanensis PCR Not detected Stool Rotavirus A PCR Not detected Stl Adenov F 40/41 PCR Not detected Stool Astrovirus (PCR) Not detected Stool Campylobacter PCR Not detected Stl C. diff Tox A/B PCR Not detected Stool Cryptosporidium PCR Not detected Stl Sh Tox Pr E STEC PCR Not detected Stool E coli O157 PCR Not detected Stl Enterotoxigenic E PCR Not detected Stool EPEC (PCR) Not detected Stool EAEC (PCR) Not detected Stl E. histolytica PCR Not detected Stool Giardia Lamblia PCR Not detected Stool Salmonella PCR Not detected Stool Sapovirus (PCR) Not detected Stl P. shigelloides PCR Not detected Stl Shigella/EIEC PCR Not detected St Y.enterocolitica PCR Not detected Stool Vibrio (PCR) Not detected Stl Vibrio cholerae PCR Not detected Stl Norovirus GI/GII PCR Not detected Stl GI Panel (PCR) Com See below Blood Type AB POSITIVE Antibody Screen NEGATIVE Crossmatch See Detail 02/07/18 02/07/18 02/07/18 11:27 13:18 16:31 WBC RBC Hgb 6.5 L Hct 21.2 L MCV MCH MCHC RDW Plt Count MPV Immature Gran % Seg Neutrophils % Lymphocytes % Monocytes % Eosinophils % Basophils % Neutrophils # Lymphocytes # Monocytes # Eosinophils # Basophils # Nucleated RBCs/100 WBC Immature Plt Fraction Sodium Potassium Chloride Carbon Dioxide BUN Creatinine Est GFR ( Amer) Est GFR (Non-Af Amer) BUN/Creatinine Ratio Glucose POC Glucose 180 H 235 H Calculated Osmolality Calcium Total Bilirubin AST ALT Alkaline Phosphatase Serum Total Protein Albumin Globulin Albumin/Globulin Ratio Stl C. cayetanensis PCR Stool Rotavirus A PCR Stl Adenov F PCR Stool Astrovirus (PCR) Stool Campylobacter PCR Stl C. diff Tox A/B PCR Stool Cryptosporidium PCR Stl Sh Tox Pr E STEC PCR Stool E coli O157 PCR Stl Enterotoxigenic E PCR Stool EPEC (PCR) Stool EAEC (PCR) Stl E. histolytica PCR Stool Giardia Lamblia PCR Stool Salmonella PCR Stool Sapovirus (PCR) Stl P. shigelloides PCR Stl Shigella/EIEC PCR St Y.enterocolitica PCR Stool Vibrio (PCR) Stl Vibrio cholerae PCR Stl Norovirus GI/GII PCR Stl GI Panel (PCR) Com Blood Type Antibody Screen Crossmatch 02/07/18 02/07/18 02/08/18 19:50 21:07 04:40 WBC 13.8 H RBC 2.87 L Hgb 6.9 L 7.6 L Hct 21.1 L 24.4 L MCV 85.0 MCH 26.5 L MCHC 31.1 L RDW 18.6 H Plt Count 325 MPV 11.8 Immature Gran % 3.3 Seg Neutrophils % 54.7 Lymphocytes % 30.9 Monocytes % 8.3 Eosinophils % 2.0 Basophils % 0.8 Neutrophils # 7.6 Lymphocytes # 4.3 Monocytes # 1.2 Eosinophils # 0.3 Basophils # 0.1 Nucleated RBCs/100 WBC 1.3 H Immature Plt Fraction Sodium Potassium Chloride Carbon Dioxide BUN Creatinine Est GFR ( Amer) Est GFR (Non-Af Amer) BUN/Creatinine Ratio Glucose POC Glucose 195 H Calculated Osmolality Calcium Total Bilirubin AST ALT Alkaline Phosphatase Serum Total Protein Albumin Globulin Albumin/Globulin Ratio Stl C. cayetanensis PCR Stool Rotavirus A PCR Stl Adenov F PCR Stool Astrovirus (PCR) Stool Campylobacter PCR Stl C. diff Tox A/B PCR Stool Cryptosporidium PCR Stl Sh Tox Pr E STEC PCR Stool E coli O157 PCR Stl Enterotoxigenic E PCR Stool EPEC (PCR) Stool EAEC (PCR) Stl E. histolytica PCR Stool Giardia Lamblia PCR Stool Salmonella PCR Stool Sapovirus (PCR) Stl P. shigelloides PCR Stl Shigella/EIEC PCR St Y.enterocolitica PCR Stool Vibrio (PCR) Stl Vibrio cholerae PCR Stl Norovirus GI/GII PCR Stl GI Panel (PCR) Com Blood Type Antibody Screen Crossmatch 02/08/18 04:40 WBC RBC Hgb Hct MCV MCH MCHC RDW Plt Count MPV Immature Gran % Seg Neutrophils % Lymphocytes % Monocytes % Eosinophils % Basophils % Neutrophils # Lymphocytes # Monocytes # Eosinophils # Basophils # Nucleated RBCs/100 WBC Immature Plt Fraction Sodium 142 Potassium 4.0 Chloride 97 L Carbon Dioxide 41 H* BUN 75 H Creatinine 1.17 Est GFR ( Amer) 58 L Est GFR (Non-Af Amer) 48 L BUN/Creatinine Ratio 64 H Glucose 115 H POC Glucose Calculated Osmolality 317 H Calcium 8.3 L Total Bilirubin 0.4 AST 12 L ALT 6 L Alkaline Phosphatase 66 Serum Total Protein 5.9 L Albumin 2.2 L Globulin 3.7 H Albumin/Globulin Ratio 0.6 L Stl C. cayetanensis PCR Stool Rotavirus A PCR Stl Adenov F / PCR Stool Astrovirus (PCR) Stool Campylobacter PCR Stl C. diff Tox A/B PCR Stool Cryptosporidium PCR Stl Sh Tox Pr E STEC PCR Stool E coli O157 PCR Stl Enterotoxigenic E PCR Stool EPEC (PCR) Stool EAEC (PCR) Stl E. histolytica PCR Stool Giardia Lamblia PCR Stool Salmonella PCR Stool Sapovirus (PCR) Stl P. shigelloides PCR Stl Shigella/EIEC PCR St Y.enterocolitica PCR Stool Vibrio (PCR) Stl Vibrio cholerae PCR Stl Norovirus GI/GII PCR Stl GI Panel (PCR) Com Blood Type Antibody Screen Crossmatch Cultures: Cultures 02/01/18 10:50 Wound Culture - Final Right Foot Klebsiella pneumoniae MDRO Proteus penneri Vancomycin Resistant Enterococcus faecium 02/01/18 11:30 Surgical Biopsy Culture - Final Right Foot Klebsiella pneumoniae MDRO Proteus penneri Vancomycin Resistant Enterococcus faecium 02/01/18 11:30 Anaerobic Culture - Final Right Foot No anaerobes were recovered. Serology 02/07/18 02/07/18 01/30/18 Range/Units 04:28 04:28 18:41 Stool Occult Blood Positive A (Negative) Stl C. cayetanensis PCR Not detected (Not detect) Stool Rotavirus A PCR Not detected (Not detect) Stl Adenov F / PCR Not detected (Not detect) Stool Astrovirus (PCR) Not detected (Not detect) Stool Campylobacter PCR Not detected (Not detect) Stl C. diff Tox A/B PCR Not detected (Not detect) Stool Cryptosporidium PCR Not detected (Not detect) Stl Sh Tox Pr E STEC PCR Not detected (Not detect) Stool E coli O157 PCR Not detected (Not detect) Stl Enterotoxigenic E PCR Not detected (Not detect) Stool EPEC (PCR) Not detected (Not detect) Stool EAEC (PCR) Not detected (Not detect) Stl E. histolytica PCR Not detected (Not detect) Stool Giardia Lamblia PCR Not detected (Not detect) Stool Salmonella PCR Not detected (Not detect) Stool Sapovirus (PCR) Not detected (Not detect) Stl P. shigelloides PCR Not detected (Not detect) Stl Shigella/EIEC PCR Not detected (Not detect) St Y.enterocolitica PCR Not detected (Not detect) Stool Vibrio (PCR) Not detected (Not detect) Stl Vibrio cholerae PCR Not detected (Not detect) Stl Norovirus GI/GII PCR Not detected (Not detect) Stl GI Panel (PCR) Com See below Chlamy pneumoniae PCR Not Detected (Not Detect) Adenovirus (PCR) Not Detected (Not Detect) B. pertussis DNA (PCR) Not Detected (Not Detect) B.parapertussis DNA PCR Not Detected (Not Detect) Coronavirus OC43 (PCR) Not Detected (Not Detect) Coronavirus HKU1 (PCR) Not Detected (Not Detect) Coronavirus 229E (PCR) Not Detected (Not Detect) Coronavirus NL63 (PCR) Not Detected (Not Detect) Human Metapneumovir PCR Not Detected (Not Detect) Influenza A (H1) PCR Not Detected (Not Detect) Influ A (H1N1/09) PCR Not Detected (Not Detect) Influenza A (H3) PCR Not Detected (Not Detect) Influenza A Untype (PCR) Not Detected (Not Detect) Influenza Type B (PCR) Not Detected (Not Detect) M.pneumoniae DNA (PCR) Not Detected (Not Detect) Parainfluenza 1 (PCR) Not Detected (Not Detect) Parainfluenza 2 (PCR) Not Detected (Not Detect) Parainfluenza 3 (PCR) Not Detected (Not Detect) Parainfluenza 4 (PCR) Not Detected (Not Detect) RSV (PCR) Not Detected (Not Detect) Entero/Rhino (PCR) Not Detected (Not Detect) Exam - Constitutional Vitals: Temp Pulse Resp BP Pulse Ox 97.7 F 81 16 131/53 94 02/08/18 08:19 02/08/18 08:19 02/08/18 08:19 02/08/18 08:19 02/08/18 08:19 - Additional findings Additional findings: - Additional findings Additional findings: - Head Head exam: Present: atraumatic, normal inspection - Respiratory Respiratory exam: Present: wheezes. Absent: decreased breath sounds, rhonchi, tachypnea - Cardiovascular Cardiovascular exam: Present: RRR, +S1, +S2 - Extremities Exam Additional comments: Both lower extremities are currently wrapped. S/P debridement of R foot. - Psychiatric Psychiatric exam: Present: normal affect - Skin Skin exam: Present: rash Consult Discharge Plan - Plan Referrals: Jc Tsai MD [Primary Care Provider] - - Attending Attestation I examined this patient and my medical decision-making was reviewed with the Resident Physician. I agree with the documented findings, disposition and treatment plan as described except to the extent set forth below.
--- NOTE | 2018-02-08 09:41 | Event Note ---
Date of Encounter: 02/08/18 Time of Encounter: 09:35 Patient was seen and examined. I agree with the note as written by the resident physician. patient is here with sepsis stemming from right lower ext ulcer, cellulitis, and HCAP. s/p I&D in OR on 02/01. cultures + for MDR klebseilla, proteus, and now VRE. multiple abx since admission and currently on zosyn and zyvox added. Hemodynamically stable. O2 needs at 4L. Patient has had a drop in H/H and FOBT is +. Needed PRBCs transfusion yesterday for hgb <7. Today Hgb is 7.6 GEN: NAD CVS: RRR. S1, S2, No m/r/g RESP: CTAB ABD: Soft, NT, ND, +BS EXT: 1+ edema. 2+ DP. Lower extremities wrapped bilaterally NEURO: Nonfocal c/w current zyvox and zosyn. Appreciate ID help WBC trending down today. PICC line c/w lasix IV. BUN elevated more likely due to UGIB more so than due to lasix Wean O2 as tolerated hgb 7.6 and was 12.7 back on 01/17/2018. FOBT +. GI to scope toda IV protonix labs in the morning. Glycemic control DVT ppx
--- NOTE | 2018-02-08 10:00 | Internal Med Progress Note ---
Date of Encounter: 02/08/18 Time of Encounter: 06:35 - Assessment and plan (1) Melena Current Visit: Yes Status: Acute Assessment and plan: Pt reportedly had "erinn syrup" bowel movement all night -rectal tube ordered -FOBT was done and was positive Pt had H&H , hemoglobin 7.6, gave another unit of RBC -GI consulted, scoping EGD today -GI prophylaxis with Protonix 40mgBID -Suspected GIB = pt BUN is increasing was 46 yesterday, 60 yesterday, 75 today today. Creatinine is 1.17 -GI to scope -Pt has abdominal pain, denies N/V, hemetemesis -Pt denies any dizziness, chest pain, SOB, vision changes (2) Ulcer of right heel Current Visit: Yes Status: Chronic Assessment and plan: POD #7 s/p debridement of right heel with podiatry -wound vac applied, pt will be discharged to SNF for custodial therapy -Wound cultures growing ESBL Klebsiella, Proteus penneri, gram (+) cocci - Patient will need terminal system operator abx, PICC line consulted. She is on zosyn, as per ID and will be on IV abx for 2-4wks PT evaluation recommend ECF; director of social media marketing on board -pt will go to SNF upon d/c -pt got PICC line (3) Sepsis Current Visit: Yes Status: Resolved Assessment and plan: Presented with leukocytosis and tachycardia, possible pneumonia, bilateral leg cellulitis, right foot ulcer. Follow up final cultures and continue IV antibiotics, further plan as below. Today WBC is 13.8 HR 77 most likely due to low hemoglobin Qualifiers: Sepsis type: sepsis due to unspecified organism Qualified Code(s): A41.9 - Sepsis, unspecified organism (4) Diastolic heart failure Current Visit: No Status: Chronic Assessment and plan: Pt is on Lasix and beta blockers -pt has telemetry -TTE in 11/2016 showed LVEF 60%, concentric LVH, moderate diastolic dysfxn -pt should eat a heart healthy diet and lose weight -Lasix is currently held (5) HAP (hospital-acquired pneumonia) Current Visit: Yes Status: Suspected Assessment and plan: CT of chest showed mulitfocal airspace consolidation in both lungs -multifocal pneumonia -pt is on zosyn -blood cultures negative -legionella and s pneumo antigen negative -respiraotry infxn panel negative -infectious dz is managing abx -PICC line team consulted for terminal system operator abx because of the ulcer/cellulitis -pt is on zosyn pt remains afrebrile -last WBC count 13.8 (6) DVT prophylaxis Current Visit: Yes Status: Acute Assessment and plan: Heparin subQ TID will be discon't Will put pt on SCD (7) Morbid obesity Current Visit: No Status: Chronic Assessment and plan: Lifestyle modification BMI 51.5 Pt should eat a low fat, low cholesterol renal diet (8) HTN (hypertension) Current Visit: Yes Status: Chronic Assessment and plan: Pt is on Lasix, carvidiol BP today is 166/79 -pt BP is not well controlled. Pt needs to follow up with PCP for HTN (9) HLD (hyperlipidemia) Current Visit: No Status: Chronic Assessment and plan: Pt is on Lipitor Pt should follow up with PCP for lifestyle modifications -encourage low fat, low cholesterol heart healthy diet (10) Type 2 diabetes mellitus Current Visit: Yes Status: Chronic Assessment and plan: Blood sugars noted to be well-controlled; sliding scale insulin as needed. Diabetic diet. -Pt needs lifestyle modifications -Increased Levemir to 30U -FBG this morning 153 (11) REGINALD on CPAP Current Visit: Yes Status: Chronic Assessment and plan: Continue CPAP at night - Time Spent With Patient Total time spent is greater than 50% in coordination of care (as documented) at patient's floor/unit and/or counseling patient: - Subjective Interval history: Pt is seen at bedside. She is hospital day 10, s/p right diabetic foot ulcer debridement by loan review officer. Pt reportedly had tarry, "Erinn Syrup" colored bowel movements over the night. Upon examination of pt today she is covered in black tarry stool -FOBT(+) -GI to scope patient this morning -H&H showed a Hg 7.6, gave another unit of blood. Will recheck H&H today -Pt is extremely lethargic this morning. She doesn't respond to questions. I had to repeatedly wake her up and she kept drifting back to sleep -the pt states her belly "just doesn't feel right" and that she has belly pain all over -she is on zosyn as per ID, will be on IV abx for 2-4wks -pt is a poorly controlled diabetic. Increased her Levemir to 30U as her fasting BG 153 Fluids - none at this time Electrolytes - no abnormal values Nutrition - tolerating diet, on cardiac/diabetic diet GI prophylaxis - Protonix 40mg BID IVP DVT prophylaxis - currently on Heparin SQ, will stop and switch to SCD - Constitutional Vitals: Temp Pulse Resp BP Pulse Ox 97.7 F 81 16 131/53 94 02/08/18 08:19 02/08/18 08:19 02/08/18 08:19 02/08/18 08:19 02/08/18 08:19 General appearance: Present: cooperative, disheveled, morbidly obese, obese, answers questions appropriately - Head Head exam: Present: normal inspection - Neck Neck exam general surgery: Present: supple - Respiratory Respiratory exam: Present: decreased breath sounds - Cardiovascular Cardiovascular exam: Present: RRR, +S1, +S2 - GI/Abdominal GI/Abdominal exam: Present: tenderness, no peritoneal signs. Absent: soft - Neurological Exam Neurological exam: Present: no focal deficits - Skin Skin exam: Present: intact Internal Medicine: Result - Labs CBC & Chem 7: 02/08/18 04:40 02/08/18 04:40 Labs: Short CBC 02/07/18 02/07/18 02/07/18 Range/Units 09:51 13:18 21:07 WBC 15.1 H D (4.3-11.1) K/mcL Hgb 7.3 L 6.5 L 6.9 L (11.5-15.4) g/dL Hct 24.3 L 21.2 L 21.1 L (35.3-44.9) % Plt Count 439 H D (140-400) K/mcL Neutrophils # 10.8 H (1.6-8.9) K/mcL 02/08/18 Range/Units 04:40 WBC 13.8 H (4.3-11.1) K/mcL Hgb 7.6 L (11.5-15.4) g/dL Hct 24.4 L (35.3-44.9) % Plt Count 325 (140-400) K/mcL Neutrophils # 7.6 (1.6-8.9) K/mcL BMP 02/08/18 04:40 Sodium 142 Potassium 4.0 Chloride 97 L Carbon Dioxide 41 H* BUN 75 H Creatinine 1.17 Glucose 115 H Calcium 8.3 L Liver Function 02/08/18 Range/Units 04:40 Total Bilirubin 0.4 (0.3-1.0) mg/dL AST 12 L (13-39) Units/L ALT 6 L (7-52) Units/L Alkaline Phosphatase 66 (34-104) Units/L Albumin 2.2 L (3.5-5.7) g/dL - ABG Interpretation ABG results: PT/INR, D-dimer PT 13.8 Seconds (9.4-12.1) H 01/29/18 17:11 Consult Discharge Plan - Plan Referrals: Jc Tsai MD [Primary Care Provider] -
--- NOTE | 2018-02-08 12:16 | Anesthesia Evaluation PreOp ---
Date of Encounter: 02/08/18 Time of Encounter: 12:14 - Past History Planned Operation: EGD Cardiac History: DE (NSTEMI), CHF (diastolic : recent echo EV/EV echocardiogram w enhance Impressions: LVEF 65%. Normal LV chamber size and function. Mild concentric left ventricular hypertrophy. Mild left ventricular diastolic dysfunction. Right ventricular size was not well visualized. Function appears grossly normal. Mild pulmonary hypertension. No significant valvular dysfunction.) Pulmonary History: REGINALD Dx, Other (pneumonia) VERIFICATION LEAD History: Other (depression) Other Medical History: Diabetes Type II, GERD, Other (sepsis, GI bleed, anemia, BMI 49) Anesthesia History: No Prior Anesthetic Complications, Past Anesthesia ( debridement R foot ulcer) Alcohol Use: none Drug use: none Medications and Allergies Atorvastatin [Lipitor] 40 mg PO HS 01/11/16 [History] Insulin ASPART [Novolog Flexpen] 6 - 14 unit SQ TID 01/11/16 [History] Latanoprost [Xalatan] 1 drop BOTH EYES HS 01/11/16 [History] Primidone [Mysoline] 25 - 50 mg PO BID PRN 01/11/16 [History] Ascorbic Acid [Vitamin C] 500 mg PO BID 03/25/16 [History] Docusate Sodium [Colace] 200 mg PO BID 03/25/16 [History] Furosemide [Lasix] 40 mg PO BID 12/06/16 [History] Fluticasone Propionate Nasal [Flonase] 2 spray NS DAILY #1 bottle 08/28/17 [Rx] Brimonidine Tartrate/Timolol [Combigan 0.2%-0.5% Eye Drops] 1 drop OP BID [History] Diltiazem HCl [Diltiazem 12Hr ER] 120 mg PO DAILY 11/10/17 [History] Esomeprazole Magnesium [Nexium] 40 mg PO DAILY 11/10/17 [History] Gentamicin Oint [Garamycin] 1 appl TP BID 11/10/17 [History] Ketoconazole 2% CRM [Nizoral Cream] 1 appl TP DAILY 11/10/17 [History] Ketorolac Tromethamine 1 drop OP QID 11/10/17 [History] Losartan Potassium [Cozaar] 100 mg PO DAILY 11/10/17 [History] Tizanidine HCl 4 mg PO TID 11/20/17 [History] Calcium Carbonate [Tums] 1,000 mg PO Q4HR PRN tab.chew 11/24/17 [Rx] Carvedilol [Coreg] 6.25 mg PO BIDWM tablet 11/24/17 [Rx] Lactobacillus Acidophilus [Acidophilus] 1 each PO BID #10 capsule 11/24/17 [Rx] Pregabalin [Lyrica] 75 mg PO BID 30 Days #60 capsule 11/24/17 [Rx] clonazePAM [Klonopin] 0.5 mg PO BID PRN 5 Days #10 tablet 11/24/17 [Rx] Gabapentin [Neurontin] 300 mg PO HS 01/17/18 [History] Insulin Glargine,Hum.rec.anlog [Basaglar Kwikpen U-100] 40 unit SQ BID 01/17/18 [History] Potassium Chloride [K-Tab ER] 20 meq PO QID 01/17/18 [History] Fosfomycin Tromethamine [Monurol] 3 gm PO Q48H 8 Days #4 packet 01/23/18 [Rx] Nystatin POWDER [Nystop] 1 appl TP BID bottle 01/23/18 [Rx] Ferrous Sulfate 325 mg PO BID 01/30/18 [History] Loratadine [Allergy Relief] 10 mg PO DAILY 01/30/18 [History] Pantoprazole Sodium [Protonix] 40 mg PO DAILY 01/30/18 [History] Polyethylene Glycol 3350 [MiraLAX] 17 gm PO DAILY 01/30/18 [History] 3 Allergy/AdvReac Type Severity Reaction Status Date / Time lisinopril [From Zestril] Allergy Rash Verified 01/17/18 13:50 - Meds/Allergy Pre-op Review Medications Reviewed: Yes Allergies Reviewed: Yes Beta Blockers on Current Med List: No Anesthesia Results - Labs 02/08/18 13:03 02/08/18 04:40 - Imaging EKG: report reviewed ( Interpretive Statements SINUS TACHYCARDIA Electronically Signed On 01-31-2018 19:04:12 EDT by Aj Valero) Anesthesia Exam Vital Signs/O2 Sat, Most Current Temp Pulse Resp BP Pulse Ox 97.6 F 66 18 107/44 92 02/08/18 12:11 02/08/18 12:11 02/08/18 12:11 02/08/18 12:11 02/08/18 12:11 Weight: 131kg NPO (# of Hours): >8 - HEENT Pupil (Motor): Pupils equal, EOMI Mallampati: II Teeth: Edentulous Oral Opening: Greater than 3 - VERIFICATION LEAD LOC: Oriented VERIFICATION LEAD Motor: Normal RUE, Normal LUE, Normal RLE, Normal LLE, Normal Face VERIFICATION LEAD Sensory: Normal: RUE, LUE, RLE, LLE, Face - Cardiac Rhythm: Regular - Pulmonary Breath Sounds: bilateral Clear Respiratory Effort: Symmetrical Anesthesia Assess/Plan ASA Score: 4 Modified [place] Scale for Level of Consciousness: Cooperative, oriented, and tranquil Anesthetic Plan: General (plan b), MAC Monitoring Plan: Standard Monitors Recovery Plan: PACU
[2018-02-08] MEDS ORDERED: *HR* FentaNYL (PF) 100 MCG/2 ML VIAL ONE (12:19)
[2018-02-08] MEDS ORDERED: Lidocaine -MPF 2% 2 ML VIAL ONE (12:35)
[2018-02-08] MEDS ORDERED: *HR* Succinylcholine 200 MG/10 ML VIAL IVP ONE (12:35)
[2018-02-08 13:09] LABS: Hematocrit 26.3 % (35.3-44.9); Hemoglobin 8.4 g/dL (11.5-15.4)
[2018-02-08] MEDS ORDERED: 0.9 % Sodium Chloride 500 ML IVC SCH (13:15)
[2018-02-08] MEDS ORDERED: Albuterol 2.5 MG/3 ML NEBULIZER ONE (14:13)
[2018-02-08] MEDS ORDERED: Albuterol 2.5 MG/3 ML NEBULIZER IH ONE (14:32)
--- NOTE | 2018-02-08 14:45 | Anesthesia Evaluation Post Op ---
Date of Encounter: 02/08/18 Time of Encounter: 14:44 - Vital Signs Vital Signs: Vital Signs/O2 Sat, Most Current Temp Pulse Resp BP Pulse Ox 100.1 F H 70 18 118/83 91 02/08/18 14:27 02/08/18 14:37 02/08/18 14:37 02/08/18 14:37 02/08/18 14:37 - Lungs Lungs: Rhonchi - Airway Airway: Non-obstructed - Cardiovascular Regular Rate - Mental Status Mental Status: Alert & Oriented, Answers Appropriately, Baseline Status - Pain Pain Scale: 0 Pain Scale used: Numeric (1 - 10) - Nausea Vomiting Nausea Vomiting: Not Present - Hydration Hydration: NPO - Discharge PostOp Status: Transfer Patient to floor Attestation: I have assessed this patient and find they meet discharge criteria.
--- NOTE | 2018-02-08 16:45 | Podiatry Progress Note ---
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 Stoll. A febrile, Overall significant improvement in erythema and swelling to BLE. Graft in place to right heel with wound vac. Wound cultures of right leg from 01/18/18 isolated MRSA. Surgical biopsy culture from 02/01/18- Klebsiella pneumoniae MDRO, proteus penneri, Vancomycin Enterococcus faecium Wound culture right foot 02/01/18- Klebsiella pneumoniae MDRO, proteus penneri, Vancomycin Enterococcus faecium Lower Extremity CT 01/29/18 16:56 IMPRESSION: 1. Re- demonstration of extensive subcutaneous edema skin thickening of the bilateral lower extremities similar to previous exam. Findings may reflect chronic venous stasis/lymph edema versus cellulitis. No organized drainable fluid collection identified. 2. Ulceration identified along the plantar aspect of the right foot at the level of the calcaneus which is new compared with previous exam. 3. Re- demonstration of remote fracture of the left 5th metatarsal base with no evidence for osseous bridging or callus formation. Plan Wound vac due to be changed today. Continue wound vac dressing changes as ordered. Antibiotics per Infectious Disease. Plan for patient to be discharged to ECF, social work on board. Follow up with Dr. Stoll in wound care one week after discharge from hospital. NWB to right foot. Qualifiers: Non-pressure ulcer stage: unspecified non-pressure ulcer stage Qualified Code(s): L97.419 - Non-pressure chronic ulcer of right heel and midfoot with unspecified severity (4) Venous stasis dermatitis of both lower extremities Current Visit: Yes Status: Chronic Overall significant improvement to stasis dermatitis of BLE. Plan: Keep BLE elevated. Continue wound care as ordered. Subjective Interval history: Patient is s/p incision and drainage and debridement of all necrotic tissue right foot/heel, application of PuraPly wound matrix with graft jacket and wound VAC right heel on 02/01/[address] Stoll. Patient is sitting up in bed. Patient has a wound VAC intact to the right heel. Dressings intact to both feet. Patient denies pain to feet currently. Patient states she has been having stomach pains with black stools. Patient is scheduled for scope today and transport is at the bedside waiting to take patient to test. Objective - Vital Signs Vital Signs: Vital Signs Temp Pulse Resp BP Pulse Ox 02/08/18 15:37 60 18 131/69 94 02/08/18 15:27 98.1 F 68 17 139/68 96 02/08/18 14:47 99.7 F H 68 16 135/65 92 02/08/18 14:37 70 18 118/83 91 02/08/18 14:27 100.1 F H 67 18 132/62 92 18 14:17 68 16 132/67 94 18 14:13 18 132/62 87 18 14:07 70 16 132/65 88 02/08/18 13:57 97.9 F 71 16 127/64 86 18 13:10 68 18 135/63 92 18 12:11 97.6 F 66 18 107/44 92 18 11:14 97.9 F 67 16 107/44 95 18 08:19 97.7 F 81 16 131/53 94 18 06:55 97.6 F 77 16 120/54 94 18 04:47 97.9 F 70 16 117/52 95 02/08/18 02:45 97.8 F 72 16 114/50 95 02/08/18 00:15 98.0 F 66 16 110/50 96 02/08/18 00:03 98.0 F 67 16 110/50 18/18 23:48 97.8 F 67 16 103/51 0718/18 20:48 95 18/18 20:00 98.3 F 74 15 119/54 98 18 19:39 98.3 F 74 15 119/54 98 02/07/18 19:17 97.9 F 74 16 104/57 96 02/07/18 17:15 98.6 F 76 16 101/52 94 02/07/18 16:52 98.2 F 84 16 124/64 94 Intake and Output 02/08/18 02/08/18 02/08/18 07:59 15:59 23:59 Intake Total 350 / 350 1000 / 1000 Output Total 850 / 850 600 / 600 Balance -500 / -500 400 / 400 Intake: IV Fluids 0 / 0 300 / 300 0.9 % Sodium Chloride 500 ML @ 200 / 200 50 mls/hr IVC .Q10H DONNA Rx#: [id number] Zosyn 3.375 GM In 0.9 % Sodium 0 / 0 100 / 100 Chloride (Mini-Bag +) 100 ML @ 25 mls/hr IVPB Q8H DONNA Rx#: [id number] Oral 0 / 0 Blood Product 350 / 350 700 / 700 Rbcs Leuko Poor As-1 Unit 700 / 700 [id number] Rbcs Leuko Poor As-1 Unit 350 / 350 [id number] Output: Catheter 850 / 850 600 / 600 Other: Stool Size Large Stool Consistency loose Stool Color Black # Bowel Movements 1 Weight 131 kg Blood Glucose* 153 99 Patient Weight 02/08/18 23:59 Weight 131 kg - Exam Exam: General appearance: alert awake oriented X 3. Calm and pleasant, no acute distress.. Vascular: Unable to palpate pedal pulses due to edema, No evidence of cyanosis, pallor or rubor, Edema graded at 2+/4, Skin temperature warm, Homans Sign negative, capillary refill time is immediate to digits.. Integument: Skin with decreased turgor, decreased subcutaneous tissue, skin thin and shiny with trophic changes associated with comorbidities as described in history. Decreased Erythema to BLE, skin is warm, no lymphangitis, clearing of erythema to bilateral ankles and knees, dressing intact to left foot, dry and intact. S/p: Right foot, wound vac intact, no strike through drainage, no drainage observed to canister. - Lab Result Diagrams: 02/08/18 13:03 02/08/18 04:40 Labs: Abnormal lab results WBC 13.8 K/mcL (4.3-11.1) H 02/08/18 04:40 RBC 2.87 M/mcL (3.82-4.97) L 02/08/18 04:40 Hgb 8.4 g/dL (11.5-15.4) L 02/08/18 13:03 Hct 26.3 % (35.3-44.9) L 02/08/18 13:03 MCH 26.5 pg (28.0-33.3) L 02/08/18 04:40 MCHC 31.1 g/dL (31.6-35.5) L 02/08/18 04:40 RDW 18.6 % (11.5-14.5) H 02/08/18 04:40 Nucleated RBCs/100 WBC 1.3 /100 WBC (0) H 02/08/18 04:40 Immature Plt Fraction 6.6 % (1.1-6.1) H 02/07/18 09:51 ESR >= 130 mm/hr (0-15) H 01/29/18 17:11 PT 13.8 Seconds (9.4-12.1) H 01/29/18 17:11 Chloride 97 mEq/L (98-107) L 02/08/18 04:40 Carbon Dioxide 41 mEq/L (23-29) H* 02/08/18 04:40 BUN 75 mg/dL (6-20) H 02/08/18 04:40 Est GFR ( Amer) 58 (> 60) L 02/08/18 04:40 Est GFR (Non-Af Amer) 48 (> 60) L 02/08/18 04:40 BUN/Creatinine Ratio 64 (6-26) H 02/08/18 04:40 Glucose 115 mg/dL (70-105) H 02/08/18 04:40 POC Glucose 195 mg/dL (70-99) H 02/07/18 19:50 Calculated Osmolality 317 (280-300) H 02/08/18 04:40 Calcium 8.3 mg/dL (8.6-10.3) L 02/08/18 04:40 Magnesium 1.5 mg/dL (1.6-2.6) L 01/30/18 04:41 Direct Bilirubin 0.3 mg/dL (0.0-0.2) H 01/29/18 17:11 AST 12 Units/L (13-39) L 02/08/18 04:40 ALT 6 Units/L (7-52) L 02/08/18 04:40 Troponin I 0.19 ng/mL (< 0.04) H* 01/30/18 15:58 C-Reactive Protein 140 mg/L (Less than 10) H 01/29/18 17:11 B-Natriuretic Peptide 357 pg/mL (Less than 100) H 01/30/18 04:41 Serum Total Protein 5.9 g/dL (6.4-8.9) L 02/08/18 04:40 Albumin 2.2 g/dL (3.5-5.7) L 02/08/18 04:40 Globulin 3.7 g/dL (2.4-3.5) H 02/08/18 04:40 Albumin/Globulin Ratio 0.6 (1.1-2.2) L 02/08/18 04:40 Lipase 84 Units/L (11-82) H 01/29/18 17:11 Urine Clarity Turbid (Clear) A 01/29/18 17:15 Urine Protein 100 mg/dL (Neg-Trace) H 01/29/18 17:15 Urine Glucose (UA) 500 mg/dL (Normal) H 01/29/18 17:15 Urine Blood Moderate (Negative) H 01/29/18 17:15 Ur Leukocyte Esterase Large (Negative) H 01/29/18 17:15 Urine Microscopic RBC 15-30 per hpf (0-3) H 01/29/18 17:15 Urine Microscopic WBC TNTC per hpf (0-3) H 01/29/18 17:15 Ur Squamous Epith Cells Many per lpf (None-Few) H 01/29/18 17:15 Ur Culture Indicated? NO. (NO) A 01/29/18 17:15 Stool Occult Blood Positive (Negative) A 02/07/18 04:28 Vancomycin Trough 12 mcg/mL (5-10) H 02/03/18 05:28 Microbiology, Last 48 Hours 02/01/18 10:50 Wound Culture - Final Right Foot Klebsiella pneumoniae MDRO Proteus penneri Vancomycin Resistant Enterococcus faecium 02/01/18 11:30 Surgical Biopsy Culture - Final Right Foot Klebsiella pneumoniae MDRO Proteus penneri Vancomycin Resistant Enterococcus faecium Consult Discharge Plan - Plan Referrals: Jc Tsai MD [Primary Care Provider] -
[2018-02-09 09:00] LABS: Basophils # 0.1 K/mcL (0.0-0.2); Basophils % 0.6 %; Eosinophils # 0.3 K/mcL (0.0-0.6); Eosinophils % 2.8 %; Hematocrit 24.5 % (35.3-44.9); Hemoglobin 7.4 g/dL (11.5-15.4); Immature Granulocytes % 1.8 % (0-4); Immature Platelets 7.1 % (1.1-6.1); Lymphocytes # 2.4 K/mcL (0.6-4.6); Lymphocytes % 21.8 %; Mean Corpuscular HGB Conc 30.2 g/dL (31.6-35.5); Mean Corpuscular Hemoglobin 26.6 pg (28.0-33.3); Mean Corpuscular Volume 88.1 fL (83.0-100.0); Mean Platelet Volume 11.8 fL (9.4-12.4); Monocytes # 0.7 K/mcL (0.0-1.3); Monocytes % 6.9 %; Neutrophils # 7.1 K/mcL (1.6-8.9); Nucleated Red Blood Cells 0.6 /100 WBC (0); Platelet Count 276 K/mcL (140-400); Red Blood Count 2.78 M/mcL (3.82-4.97); Red Cell Distribution Width 20.8 % (11.5-14.5); Segmented Neutrophils % 66.1 %
[2018-02-09 09:29] LABS: Alanine Aminotransferase 6 Units/L (7-52); Albumin 2.1 g/dL (3.5-5.7); Albumin/Globulin Ratio 0.6 (1.1-2.2); Alkaline Phosphatase 61 Units/L (34-104); Aspartate Amino Transferase 13 Units/L (13-39); BUN/Creatinine Ratio 59 (6-26); Bilirubin,Total 0.2 mg/dL (0.3-1.0); Blood Urea Nitrogen 57 mg/dL (6-20); Calcium 8.1 mg/dL (8.6-10.3); Carbon Dioxide 38 mEq/L (23-29); Chloride 102 mEq/L (98-107); Globulin 3.6 g/dL (2.4-3.5); Glucose 103 mg/dL (70-105); Osmolality,Calculated 314 (280-300); Sodium 144 mEq/L (136-145); Total Protein 5.7 g/dL (6.4-8.9); eGFR For Non-African Americans 59 (> 60)
--- NOTE | 2018-02-09 10:59 | Event Note ---
Date of Encounter: 02/09/18 Time of Encounter: 10:55 Patient was seen and examined. I agree with the note as written by the resident physician. patient is here with sepsis stemming from right lower ext ulcer, cellulitis, and HCAP. s/p I&D in OR on 02/01. cultures + for MDR klebseilla, proteus, and now VRE. multiple abx since admission and currently on zosyn and zyvox. Hemodynamically stable. O2 needs at 4L. Patient has had a drop in H/H and FOBT is +. Needed PRBCs transfusion while here for hgb <7. labs today pending. Seen by GI and EGD showed small blood clot and oozing in prepyloric stomach as well as one non-bleeding cratered duodenal ulcer with no stigamta of bleeding. GEN: NAD CVS: RRR. S1, S2, No m/r/g RESP: CTAB ABD: Soft, NT, ND, +BS EXT: 1+ edema. 2+ DP. Lower extremities wrapped bilaterally NEURO: Nonfocal c/w current zyvox and zosyn. Appreciate ID help f/u on labs PICC line c/w lasix IV. BUN elevated more likely due to UGIB more so than due to lasix Wean O2 as tolerated monitor H/H today and possibly d/c tomorrow Oral PPi labs in the morning. Glycemic control DVT ppx Monitor H/H today and dc tomorrow if stable.
[2018-02-09] MEDS: Pregabalin 75 MG CAPSULE PO SCH ×3 (11:34→20:06)
[2018-02-09] MEDS: Insulin LISPRO 300 UNITS/3 ML VIAL SQ SCH ×4 (11:34→17:14)
[2018-02-09] MEDS: Lactobacillus 1 EACH CAP.SPRINK PO SCH ×3 (11:34→20:06)
[2018-02-09] MEDS: Linezolid 600 MG TABLET PO SCH ×3 (11:35→20:07)
[2018-02-09] MEDS: tiZANidine 4 MG TABLET PO SCH ×4 (11:35→20:06)
[2018-02-09] MEDS: Diltiazem CD (24hr) 120 MG CAPSULE PO SCH (11:36)
[2018-02-09] MEDS: Furosemide 40 MG/4 ML VIAL IVP SCH (11:36)
[2018-02-09] MEDS: Thiamine (B-1) 100 MG TABLET PO SCH (11:36)
[2018-02-09] MEDS ORDERED: 0.9 % Sodium Chloride 250 ML ONE (11:59)
--- NOTE | 2018-02-09 13:04 | Infectious Disease Progress No ---
Date of Encounter: 02/09/18 Time of Encounter: 10:30 - Assessment and Plan (1) Sepsis Current Visit: No Status: Resolved Met 3/4 SIRS criteria, with leukocytosis, tachycardia, tachypnea - Known source of infection with multifocal pneumonia, UTI, and cellulitis - Home health nurse reported a fever of 102 before admission - Patient was given IV fluid resuscitation in the emergency department - Currently on IV Zosyn and PO Zyvox - White count is WNL today at 10.8 - Repeat blood CX is currently pending Qualifiers: Sepsis type: sepsis due to unspecified organism Qualified Code(s): A41.9 - Sepsis, unspecified organism (2) Ulcer of right heel Current Visit: Yes Status: Chronic - Patient has necrotic right heel ulcer and bilateral lower extremity cellulitis - Normally sees health screener Dr. Stoll - CT scan of the legs was negative for osteomyelitis; did not demonstrate extensive subcutaneous edema - Underwent surgical debridement - R foot wound CX: Klebsiella ESBL sensitive to Zosyn, Imipenem, Ertapenem, Proteus, FLOUR TESTER - We recommend continuation of zosyn for 2-4 weeks; patient will also need agressive debridement and wound care - PO Zyvox due to +VRE wound CX Qualifiers: Non-pressure ulcer stage: unspecified non-pressure ulcer stage Qualified Code(s): L97.419 - Non-pressure chronic ulcer of right heel and midfoot with unspecified severity (3) UTI (urinary tract infection) Current Visit: No Status: Resolved Patient was recently discharged from hospital on 01/23; during hospitalization, patient was discharged home to complete a course of doxycycline fosfomycin until 01/30 for UTI with ESBL Klebsiella - UA demonstrates large amount of leukocyte esterase, WBC TNTC - Urine culture from 01/30 is negative - Continue IV antibiotics as above Qualifiers: Urinary tract infection type: site unspecified Hematuria presence: without hematuria Qualified Code(s): N39.0 - Urinary tract infection, site not specified (4) HAP (hospital-acquired pneumonia) Current Visit: Yes Status: Suspected - Patient was recently discharged on 01/23 - On arrival, SPO2 was 84% on room air; heart rate in the 130s - Chest x-ray demonstrated increasing pulmonary edema with worsening basilar atelectasis - CTA demonstrated multifocal airspace consolidation throughout both lungs; most likely reflective of multifocal pneumonia. - Continue bronchodilators and incentive spirometry - IV antibiotics as above - Resp. infection panel negative - Legionella and strep antigen both negative - Sputum cx pending (5) Venous stasis dermatitis of both lower extremities Current Visit: Yes Status: Chronic - CT of the legs demonstrated extensive subcutaneous edema skin thickening of the bilateral lower extremities - Findings are likely reflective of chronic venous stasis/lymphedema versus cellulitis - No organized drainable fluid collection has been identified - Continue wound care (6) Diastolic heart failure Current Visit: No Status: Chronic - Acute on chronic diastolic CHF exacerbation - Presented with shortness of breath, pedal edema, rales on exam, and tachycardia with heart rate in the 130s - CXR revealed increasing pulmonary edema with worsening bibasilar atelectasis. - Echo 11/11/17 revealed LVEF 55-60%, mild concentric LVH - Management per primary team Qualifiers: Heart failure chronicity: chronic Qualified Code(s): I50.32 - Chronic diastolic (congestive) heart failure (7) Type 2 diabetes mellitus Current Visit: No Status: Chronic - HGB a1c level 11% on 09/20/17 - Continue basal and SSI - Monitor accu-checks Qualifiers: Diabetes mellitus roasterman insulin use: with roasterman use Diabetes mellitus complication status: with skin complications Diabetes mellitus complication detail: with foot ulcer Qualified Code(s): E11.621 - Type 2 diabetes mellitus with foot ulcer; L97.509 - Non-pressure chronic ulcer of other part of unspecified foot with unspecified severity; Z79.4 - prison ( current) use of insulin (8) Thyroid nodule Current Visit: Yes Status: Acute - Incidentally found on chest CTA on 01/29; stable 2.4 cm low attenuation nodule within the left thyroid lobe. - Follow-up the outpatient setting (9) DOROTHEA (acute kidney injury) Current Visit: Yes Status: Acute Resolved - Subjective Interval history: Patient was seen and examined at bedside this morning. She does not feel short of breath today. Denies any pain in her foot. Denies fever, chills, or abdominal pain. No further complaints at this time. Infect Dis PN-Objective Data - Labs CBC & Chem 7: 02/12/18 05:43 02/12/18 05:43 Labs: Laboratory Results - last 24 hr 02/07/18 02/08/18 02/08/18 09:51 06:56 11:12 WBC RBC Hgb Hct MCV MCH MCHC RDW Plt Count MPV Immature Gran % Seg Neutrophils % Lymphocytes % Monocytes % Eosinophils % Basophils % Neutrophils # Lymphocytes # Monocytes # Eosinophils # Basophils # Nucleated RBCs/100 WBC Immature Plt Fraction Sodium Potassium Chloride Carbon Dioxide BUN Creatinine Est GFR ( Amer) Est GFR (Non-Af Amer) BUN/Creatinine Ratio Glucose POC Glucose 153 H 101 H Calculated Osmolality Calcium Total Bilirubin AST ALT Alkaline Phosphatase Serum Total Protein Albumin Globulin Albumin/Globulin Ratio Blood Type AB POSITIVE Antibody Screen NEGATIVE Crossmatch See Detail 02/08/18 02/08/18 02/08/18 13:03 15:28 22:01 WBC RBC Hgb 8.4 L Hct 26.3 L MCV MCH MCHC RDW Plt Count MPV Immature Gran % Seg Neutrophils % Lymphocytes % Monocytes % Eosinophils % Basophils % Neutrophils # Lymphocytes # Monocytes # Eosinophils # Basophils # Nucleated RBCs/100 WBC Immature Plt Fraction Sodium Potassium Chloride Carbon Dioxide BUN Creatinine Est GFR ( Amer) Est GFR (Non-Af Amer) BUN/Creatinine Ratio Glucose POC Glucose 99 132 H Calculated Osmolality Calcium Total Bilirubin AST ALT Alkaline Phosphatase Serum Total Protein Albumin Globulin Albumin/Globulin Ratio Blood Type Antibody Screen Crossmatch 02/09/18 02/09/18 02/09/18 05:40 05:40 06:40 WBC 10.8 RBC 2.78 L Hgb 7.4 L Hct 24.5 L MCV 88.1 MCH 26.6 L MCHC 30.2 L RDW 20.8 H Plt Count 276 MPV 11.8 Immature Gran % 1.8 Seg Neutrophils % 66.1 Lymphocytes % 21.8 Monocytes % 6.9 Eosinophils % 2.8 Basophils % 0.6 Neutrophils # 7.1 Lymphocytes # 2.4 Monocytes # 0.7 Eosinophils # 0.3 Basophils # 0.1 Nucleated RBCs/100 WBC 0.6 H Immature Plt Fraction 7.1 H Sodium 144 Potassium 4.0 Chloride 102 Carbon Dioxide 38 H BUN 57 H Creatinine 0.97 Est GFR ( Amer) > 60 Est GFR (Non-Af Amer) 59 L BUN/Creatinine Ratio 59 H Glucose 103 POC Glucose 98 Calculated Osmolality 314 H Calcium 8.1 L Total Bilirubin 0.2 L AST 13 ALT 6 L Alkaline Phosphatase 61 Serum Total Protein 5.7 L Albumin 2.1 L Globulin 3.6 H Albumin/Globulin Ratio 0.6 L Blood Type Antibody Screen Crossmatch Cultures: Cultures 02/08/18 17:33 Blood Culture - Preliminary Peripheral Venipuncture Culture is incubating and being continuously monitored for growth. Final report to follow. 02/08/18 17:33 Blood Culture - Preliminary Peripheral Venipuncture Culture is incubating and being continuously monitored for growth. Final report to follow. 02/01/18 10:50 Wound Culture - Final Right Foot Klebsiella pneumoniae MDRO Proteus penneri Vancomycin Resistant Enterococcus faecium 02/01/18 11:30 Surgical Biopsy Culture - Final Right Foot Klebsiella pneumoniae MDRO Proteus penneri Vancomycin Resistant Enterococcus faecium 02/01/18 11:30 Anaerobic Culture - Final Right Foot No anaerobes were recovered. Serology 02/07/18 02/07/18 01/30/18 Range/Units 04:28 04:28 18:41 Stool Occult Blood Positive A (Negative) Stl C. cayetanensis PCR Not detected (Not detect) Stool Rotavirus A PCR Not detected (Not detect) Stl Adenov F 40/41 PCR Not detected (Not detect) Stool Astrovirus (PCR) Not detected (Not detect) Stool Campylobacter PCR Not detected (Not detect) Stl C. diff Tox A/B PCR Not detected (Not detect) Stool Cryptosporidium PCR Not detected (Not detect) Stl Sh Tox Pr E STEC PCR Not detected (Not detect) Stool E coli O157 PCR Not detected (Not detect) Stl Enterotoxigenic E PCR Not detected (Not detect) Stool EPEC (PCR) Not detected (Not detect) Stool EAEC (PCR) Not detected (Not detect) Stl E. histolytica PCR Not detected (Not detect) Stool Giardia Lamblia PCR Not detected (Not detect) Stool Salmonella PCR Not detected (Not detect) Stool Sapovirus (PCR) Not detected (Not detect) Stl P. shigelloides PCR Not detected (Not detect) Stl Shigella/EIEC PCR Not detected (Not detect) St Y.enterocolitica PCR Not detected (Not detect) Stool Vibrio (PCR) Not detected (Not detect) Stl Vibrio cholerae PCR Not detected (Not detect) Stl Norovirus GI/GII PCR Not detected (Not detect) Stl GI Panel (PCR) Com See below Chlamy pneumoniae PCR Not Detected (Not Detect) Adenovirus (PCR) Not Detected (Not Detect) B. pertussis DNA (PCR) Not Detected (Not Detect) B.parapertussis DNA PCR Not Detected (Not Detect) Coronavirus OC43 (PCR) Not Detected (Not Detect) Coronavirus HKU1 (PCR) Not Detected (Not Detect) Coronavirus 229E (PCR) Not Detected (Not Detect) Coronavirus NL63 (PCR) Not Detected (Not Detect) Human Metapneumovir PCR Not Detected (Not Detect) Influenza A (H1) PCR Not Detected (Not Detect) Influ A (H1N1/09) PCR Not Detected (Not Detect) Influenza A (H3) PCR Not Detected (Not Detect) Influenza A Untype (PCR) Not Detected (Not Detect) Influenza Type B (PCR) Not Detected (Not Detect) M.pneumoniae DNA (PCR) Not Detected (Not Detect) Parainfluenza 1 (PCR) Not Detected (Not Detect) Parainfluenza 2 (PCR) Not Detected (Not Detect) Parainfluenza 3 (PCR) Not Detected (Not Detect) Parainfluenza 4 (PCR) Not Detected (Not Detect) RSV (PCR) Not Detected (Not Detect) Entero/Rhino (PCR) Not Detected (Not Detect) - Impressions Impressions Chest X-Ray 02/08/18 16:55 IMPRESSION: No substantial change in layering effusions with cardiomegaly and pulmonary edema. Superimposed pneumonia could be present in the appropriate clinical context. D/ / Enio Malcolm / Enio Malcolm Interpreting Provider: Enio Malcolm Exam - Constitutional Vitals: Temp Pulse Resp BP Pulse Ox 97.4 F L 69 17 106/51 90 02/09/18 12:26 02/09/18 12:26 02/09/18 12:26 02/09/18 12:26 02/09/18 12:26 - Additional findings Additional findings: - Head Head exam: Present: atraumatic, normal inspection - Respiratory Respiratory exam: Present: wheezes. Absent: decreased breath sounds, rhonchi, tachypnea - Cardiovascular Cardiovascular exam: Present: RRR, +S1, +S2 - Extremities Exam Additional comments: Both lower extremities are currently wrapped. S/P debridement of R foot. - Psychiatric Psychiatric exam: Present: normal affect - Skin Skin exam: Present: rash Consult Discharge Plan - Plan Referrals: Jc Tsai MD [Primary Care Provider] - - Attending Attestation I examined this patient and my medical decision-making was reviewed with the Resident Physician. I agree with the documented findings, disposition and treatment plan as described except to the extent set forth below.
--- NOTE | 2018-02-09 16:57 | Internal Med Progress Note ---
Date of Encounter: 02/09/18 Time of Encounter: 06:50 - Assessment and plan (1) Melena Current Visit: Yes Status: Acute Assessment and plan: Pt has rectal tube in place -FOBT was done and was positive Pt had H&H , hemoglobin 7.4, gave another unit of RBC -GI consulted, EGD showed duodenal ulcer and prepyloric ulcer both nonbleeding -GI prophylaxis with Protonix 40mg PO, carafate -Pt has minimal abdominal pain, denies N/V, hemetemesis -Pt denies any dizziness, chest pain, SOB, vision changes (2) Ulcer of right heel Current Visit: Yes Status: Chronic Assessment and plan: POD #8 s/p debridement of right heel with podiatry -wound vac applied, pt will be discharged to SNF for penitentiary therapy -Wound cultures growing ESBL Klebsiella, Proteus penneri, gram (+) cocci - Patient will need termite exterminator abx, PICC line consulted. She is on zosyn, as per ID and will be on IV abx for 2-4wks PT evaluation recommend ECF; certified social workers in health care on board -pt will go to SNF upon d/c -pt got PICC line (3) Sepsis Current Visit: Yes Status: Resolved Assessment and plan: Presented with leukocytosis and tachycardia, possible pneumonia, bilateral leg cellulitis, right foot ulcer. -blood cx pending for final culutre Today WBC is 10.8 HR 70 Qualifiers: Sepsis type: sepsis due to unspecified organism Qualified Code(s): A41.9 - Sepsis, unspecified organism (4) Diastolic heart failure Current Visit: No Status: Chronic Assessment and plan: Pt is on Lasix and beta blockers -pt has telemetry -TTE in 11/2016 showed LVEF 60%, concentric LVH, moderate diastolic dysfxn -pt should eat a heart healthy diet and lose weight -contineu Lasix 1x daily (5) HAP (hospital-acquired pneumonia) Current Visit: Yes Status: Suspected Assessment and plan: CT of chest showed mulitfocal airspace consolidation in both lungs -multifocal pneumonia -pt is on zosyn/zyvox -blood cultures negative. Pending final culutres -legionella and s pneumo antigen negative -respiraotry infxn panel negative -infectious dz is managing abx -PICC line team consulted for termite exterminator abx because of the ulcer/cellulitis -pt is on zosyn and zyvox, as per ID pt remains afrebrile -last WBC count 10.8 (6) DVT prophylaxis Current Visit: Yes Status: Acute Assessment and plan: Heparin subQ TID will be discon't Will put pt on SCD (7) Morbid obesity Current Visit: No Status: Chronic Assessment and plan: Lifestyle modification BMI 51.5 Pt should eat a low fat, low cholesterol renal diet (8) HTN (hypertension) Current Visit: No Status: Chronic Assessment and plan: Pt is on Lasix, carvidiol BP today is 117/50 -pt BP is not well controlled. Pt needs to follow up with PCP for HTN (9) HLD (hyperlipidemia) Current Visit: No Status: Chronic Assessment and plan: Pt is on Lipitor Pt should follow up with PCP for lifestyle modifications -encourage low fat, low cholesterol heart healthy diet (10) Type 2 diabetes mellitus Current Visit: No Status: Chronic Assessment and plan: Blood sugars noted to be well-controlled; sliding scale insulin as needed. Diabetic diet. -Pt needs lifestyle modifications -Increased Levemir to 30U yesterday -FBG this morning 104 (11) REGINALD on CPAP Current Visit: No Status: Chronic Assessment and plan: Continue CPAP at night - Time Spent With Patient Total time spent is greater than 50% in coordination of care (as documented) at patient's floor/unit and/or counseling patient: less than 15 minutes - Subjective Interval history: Pt is seen at bedside. She is hospital day 11, s/p right diabetic foot ulcer debridement by master scheduler. Pt has rectal tube in place, there is black tarry stool still draining -she doesn't want to answer questions and states she wants to be left alone to sleep -FOBT(+) -GI scoped, saw a prepyloric ulcer and a duodenal ulcer. Started pt on carafate , continue PO protonix -H&H showed a Hg 7.4, gave another unit of blood. Will recheck H&H today. CBC in the AM -she is on zosyn as per ID, will be on IV abx for 2-4wks -pt is a poorly controlled diabetic. Increased her Levemir to 30U yesterday, her fasting BG is 104. Fluids - 50cc/hr IV NS Electrolytes - no abnormal values Nutrition - tolerating diet, on cardiac/diabetic diet GI prophylaxis - Protonix 40mg BID PO, carafate DVT prophylaxis - currently on Heparin SQ, will stop and switch to SCD - Constitutional Vitals: Temp Pulse Resp BP Pulse Ox 97.5 F L 70 16 117/50 89 02/09/18 15:14 02/09/18 15:14 02/09/18 15:14 02/09/18 15:14 02/09/18 15:14 General appearance: Present: cooperative, disheveled, morbidly obese, obese, answers questions appropriately - Head Head exam: Present: normal inspection - Neck Neck exam general surgery: Present: supple - Respiratory Respiratory exam: Present: CTAB - Cardiovascular Cardiovascular exam: Present: RRR, +S1, +S2 - GI/Abdominal GI/Abdominal exam: Present: soft, no peritoneal signs - Incison Incision: Present: clean and dry - Neurological Exam Neurological exam: Present: no focal deficits - Psychiatric Psychiatric exam: Present: normal mood - Skin Skin exam: Present: excoriation (cellulitis b/l LE, wound vac in place) Internal Medicine: Result - Labs CBC & Chem 7: 02/09/18 05:40 02/09/18 05:40 Labs: Short CBC 02/09/18 Range/Units 05:40 WBC 10.8 (4.3-11.1) K/mcL Hgb 7.4 L (11.5-15.4) g/dL Hct 24.5 L (35.3-44.9) % Plt Count 276 (140-400) K/mcL Neutrophils # 7.1 (1.6-8.9) K/mcL BMP 02/09/18 05:40 Sodium 144 Potassium 4.0 Chloride 102 Carbon Dioxide 38 H BUN 57 H Creatinine 0.97 Glucose 103 Calcium 8.1 L Liver Function 02/09/18 Range/Units 05:40 Total Bilirubin 0.2 L (0.3-1.0) mg/dL AST 13 (13-39) Units/L ALT 6 L (7-52) Units/L Alkaline Phosphatase 61 (34-104) Units/L Albumin 2.1 L (3.5-5.7) g/dL - ABG Interpretation ABG results: PT/INR, D-dimer PT 13.8 Seconds (9.4-12.1) H 01/29/18 17:11 - Impressions Impressions Chest X-Ray 02/08/18 16:55 IMPRESSION: No substantial change in layering effusions with cardiomegaly and pulmonary edema. Superimposed pneumonia could be present in the appropriate clinical context. D/ / Enio Malcolm / Enio Malcolm Interpreting Provider: Enio Malcolm Consult Discharge Plan - Plan Referrals: Jc Tsai MD [Primary Care Provider] -
[2018-02-09] MEDS: Gabapentin 300 MG CAPSULE PO SCH ×2 (17:14→20:07)
[2018-02-09] MEDS: Insulin DETEMIR 100 UNIT/ML X5UNITS SQ SCH (17:14)
[2018-02-09] MEDS: Latanoprost 2.5 ML BOTTLE BOTH EYES SCH ×2 (17:14→20:07)
[2018-02-09] MEDS: Sucralfate 1 GM TABLET PO SCH (17:32)
[2018-02-09] MEDS: Piperacillin/Tazobactam 3.375 GM in 0.9 % Sodium Chloride Mini Bag 100 ML IVPB SCH ×3 (17:33→20:10)
[2018-02-09 17:54] LABS: ABG Base Excess 16 mEq/L (-2 to 3); ABG HCO3 43 mEq/L (21-27); ABG Oxygen Saturation 93 % (95-98); ABG PCO2 65 mmHg (35-45); ABG PH 7.43 pH Units (7.32-7.45); ABG PO2 68 mmHg (85-104); ABG TCO2 45 mEq/L (20-26)
[2018-02-09 18:29] LABS: Hemoglobin 8.9 g/dL (11.5-15.4)
[2018-02-10] MEDS: Insulin LISPRO 300 UNITS/3 ML VIAL SQ SCH ×5 (00:13→21:18)
[2018-02-10] MEDS: Insulin DETEMIR 100 UNIT/ML X5UNITS SQ SCH ×2 (00:14→21:19)
[2018-02-10 01:02] LABS: Basophils # 0.1 K/mcL (0.0-0.2); Basophils % 0.5 %; Eosinophils # 0.3 K/mcL (0.0-0.6); Eosinophils % 2.4 %; Hematocrit 27.7 % (35.3-44.9); Hemoglobin 8.5 g/dL (11.5-15.4); Immature Granulocytes % 0.9 % (0-4); Lymphocytes # 3.2 K/mcL (0.6-4.6); Lymphocytes % 24.7 %; Mean Corpuscular HGB Conc 30.7 g/dL (31.6-35.5); Mean Corpuscular Hemoglobin 27.2 pg (28.0-33.3); Mean Corpuscular Volume 88.8 fL (83.0-100.0); Mean Platelet Volume 11.6 fL (9.4-12.4); Monocytes # 0.9 K/mcL (0.0-1.3); Monocytes % 6.7 %; Neutrophils # 8.4 K/mcL (1.6-8.9); Nucleated Red Blood Cells 0.2 /100 WBC (0); Platelet Count 289 K/mcL (140-400); Red Blood Count 3.12 M/mcL (3.82-4.97); Red Cell Distribution Width 20.5 % (11.5-14.5); Segmented Neutrophils % 64.8 %
[2018-02-10 01:31] LABS: Alanine Aminotransferase 6 Units/L (7-52); Albumin 2.3 g/dL (3.5-5.7); Albumin/Globulin Ratio 0.6 (1.1-2.2); Alkaline Phosphatase 61 Units/L (34-104); Aspartate Amino Transferase 12 Units/L (13-39); BUN/Creatinine Ratio 46 (6-26); Bilirubin,Total 0.2 mg/dL (0.3-1.0); Blood Urea Nitrogen 48 mg/dL (6-20); Calcium 8.2 mg/dL (8.6-10.3); Carbon Dioxide 40 mEq/L (23-29); Chloride 101 mEq/L (98-107); Globulin 3.9 g/dL (2.4-3.5); Glucose 125 mg/dL (70-105); Osmolality,Calculated 308 (280-300); Potassium 3.8 mEq/L (3.5-5.1); Sodium 142 mEq/L (136-145); Total Protein 6.2 g/dL (6.4-8.9); eGFR For Non-African Americans 54 (> 60)
[2018-02-10] MEDS: Piperacillin/Tazobactam 3.375 GM in 0.9 % Sodium Chloride Mini Bag 100 ML IVPB SCH ×3 (03:23→18:53)
[2018-02-10] MEDS: Sucralfate 1 GM TABLET PO SCH ×2 (08:08→17:42)
[2018-02-10] MEDS: tiZANidine 4 MG TABLET PO SCH ×3 (08:08→21:18)
[2018-02-10] MEDS: Linezolid 600 MG TABLET PO SCH ×2 (08:08→21:18)
[2018-02-10] MEDS: Furosemide 40 MG/4 ML VIAL IVP SCH (08:08)
[2018-02-10] MEDS: Lactobacillus 1 EACH CAP.SPRINK PO SCH ×2 (08:08→21:18)
[2018-02-10] MEDS: Pregabalin 75 MG CAPSULE PO SCH ×2 (08:08→21:18)
[2018-02-10] MEDS: Diltiazem CD (24hr) 120 MG CAPSULE PO SCH (08:08)
[2018-02-10] MEDS: Thiamine (B-1) 100 MG TABLET PO SCH (08:09)
--- NOTE | 2018-02-10 08:48 | Internal Med Progress Note ---
Date of Encounter: 02/10/18 Time of Encounter: 08:46 - Assessment and plan (1) Sepsis Current Visit: Yes Status: Resolved Assessment and plan: Presented with leukocytosis and tachycardia, possible pneumonia, bilateral leg cellulitis, right foot ulcer. Treating underlying causes as below. Qualifiers: Sepsis type: sepsis due to unspecified organism Qualified Code(s): A41.9 - Sepsis, unspecified organism (2) Ulcer of right heel Current Visit: Yes Status: Chronic Assessment and plan: POD #9 s/p debridement of right heel with podiatry. cultures + for MDR klebseilla, proteus, and VRE. wound vac applied. On zosyn/zyvox per ID. plan to d/c to SNF on Monday on IV abx. PICC line placed. (3) HAP (hospital-acquired pneumonia) Current Visit: Yes Status: Suspected Assessment and plan: On zyvox/zosyn. ID is following. (4) Melena Current Visit: Yes Status: Acute Assessment and plan: Hgb stable around 8.5. -FOBT was done and was positive. GI consulted, EGD showed duodenal ulcer and prepyloric ulcer both nonbleeding. c/w PPI and carafate. If H/H stable by Monday we can d/c. s (5) HTN (hypertension) Current Visit: No Status: Chronic Assessment and plan: Stable. c/w home meds (6) HLD (hyperlipidemia) Current Visit: No Status: Chronic Assessment and plan: c/w statin. (7) Diastolic heart failure Current Visit: No Status: Chronic Assessment and plan: Pt is on Lasix and beta blockers. Would have held lasix today due to contraction alkalosis but patient received already. Will give diamox. Wean O2 as tolerated. (8) Type 2 diabetes mellitus Current Visit: No Status: Chronic Assessment and plan: cw SSI and levemir 30 units QHS. Accucheks. (9) REGINALD on CPAP Current Visit: No Status: Chronic Assessment and plan: Continue CPAP at night (10) Morbid obesity Current Visit: No Status: Chronic Assessment and plan: counseled. (11) DVT prophylaxis Current Visit: Yes Status: Acute Assessment and plan: Heparin subcutaneous - Time Spent With Patient Total time spent is greater than 50% in coordination of care (as documented) at patient's floor/unit and/or counseling patient: - Subjective Interval history: Patient was seen and examined. No acute events. Hgb is stable this morning at 8.5 patient is here with sepsis stemming from right lower ext ulcer, cellulitis, and HCAP. s/p I&D in OR on 02/01. cultures + for MDR klebseilla, proteus, and now VRE. multiple abx since admission and currently on zosyn and zyvox. Hemodynamically stable. O2 needs at 4L. Patient has had a drop in H/H and FOBT is +. Needed PRBCs transfusion while here for hgb <7. labs today pending. Seen by GI and EGD showed small blood clot and oozing in prepyloric stomach as well as one non-bleeding cratered duodenal ulcer with no stigamta of bleeding. Plan to d/c on Monday. - Constitutional Vitals: Temp Pulse Resp BP Pulse Ox 97.3 F L 77 18 154/68 93 02/10/18 06:31 02/10/18 06:31 02/10/18 06:31 02/10/18 06:31 02/10/18 06:31 General appearance: Present: cooperative, disheveled, morbidly obese, obese, answers questions appropriately Exam: GEN: NAD CVS: RRR. S1, S2, No m/r/g RESP: CTAB ABD: Soft, NT, ND, +BS EXT: 1+ edema. 2+ DP. Lower extremities wrapped bilaterally NEURO: Nonfocal Internal Medicine: Result - Labs CBC & Chem 7: 02/10/18 00:51 02/10/18 00:51 Labs: Short CBC 02/09/18 02/09/18 02/10/18 Range/Units 05:40 18:06 00:51 WBC 10.8 12.9 H (4.3-11.1) K/mcL Hgb 7.4 L 8.9 L D 8.5 L (11.5-15.4) g/dL Hct 24.5 L 28.0 L 27.7 L (35.3-44.9) % Plt Count 276 289 (140-400) K/mcL Neutrophils # 7.1 8.4 (1.6-8.9) K/mcL BMP 02/09/18 02/10/18 05:40 00:51 Sodium 144 142 Potassium 4.0 3.8 Chloride 102 101 Carbon Dioxide 38 H 40 H* BUN 57 H 48 H Creatinine 0.97 1.05 Glucose 103 125 H Calcium 8.1 L 8.2 L Liver Function 02/09/18 02/10/18 Range/Units 05:40 00:51 Total Bilirubin 0.2 L 0.2 L (0.3-1.0) mg/dL AST 13 12 L (13-39) Units/L ALT 6 L 6 L (7-52) Units/L Alkaline Phosphatase 61 61 (34-104) Units/L Albumin 2.1 L 2.3 L (3.5-5.7) g/dL - ABG Interpretation ABG results: ABG ABG pH 7.43 pH Units (7.32-7.45) 02/09/18 17:48 ABG pCO2 65 mmHg (35-45) H 02/09/18 17:48 ABG pO2 68 mmHg (85-104) L 02/09/18 17:48 ABG O2 Saturation 93 % (95-98) L 02/09/18 17:48 PT/INR, D-dimer PT 13.8 Seconds (9.4-12.1) H 01/29/18 17:11 - VTE Documentation of Mechanical Device: Intermittent pneumatic compression device Consult Discharge Plan - Plan Referrals: Jc Tsai MD [Primary Care Provider] -
[2018-02-10] MEDS ORDERED: acetaZOLAMIDE 250 MG TABLET PO ONE (08:52)
[2018-02-10] MEDS: Latanoprost 2.5 ML BOTTLE BOTH EYES SCH (21:18)
[2018-02-10] MEDS: Gabapentin 300 MG CAPSULE PO SCH (21:18)
[2018-02-11] MEDS: Piperacillin/Tazobactam 3.375 GM in 0.9 % Sodium Chloride Mini Bag 100 ML IVPB SCH ×4 (02:18→22:03)
[2018-02-11 05:12] LABS: Basophils # 0.1 K/mcL (0.0-0.2); Basophils % 0.6 %; Eosinophils # 0.2 K/mcL (0.0-0.6); Eosinophils % 1.9 %; Hemoglobin 8.4 g/dL (11.5-15.4); Immature Granulocytes % 0.6 % (0-4); Lymphocytes # 2.5 K/mcL (0.6-4.6); Lymphocytes % 22.5 %; Mean Corpuscular Hemoglobin 26.4 pg (28.0-33.3); Mean Corpuscular Volume 91.2 fL (83.0-100.0); Mean Platelet Volume 11.5 fL (9.4-12.4); Monocytes # 0.8 K/mcL (0.0-1.3); Monocytes % 6.7 %; Neutrophils # 7.6 K/mcL (1.6-8.9); Platelet Count 283 K/mcL (140-400); Red Blood Count 3.18 M/mcL (3.82-4.97); Red Cell Distribution Width 20.4 % (11.5-14.5); Segmented Neutrophils % 67.7 %
[2018-02-11 05:33] LABS: BUN/Creatinine Ratio 33 (6-26); Blood Urea Nitrogen 34 mg/dL (6-20); Calcium 8.2 mg/dL (8.6-10.3); Carbon Dioxide 40 mEq/L (23-29); Chloride 100 mEq/L (98-107); Glucose 95 mg/dL (70-105); Osmolality,Calculated 303 (280-300); Potassium 3.8 mEq/L (3.5-5.1); Sodium 143 mEq/L (136-145); eGFR For Non-African Americans 56 (> 60)
[2018-02-11] MEDS: Lactobacillus 1 EACH CAP.SPRINK PO SCH ×2 (08:26→22:02)
[2018-02-11] MEDS: Sucralfate 1 GM TABLET PO SCH ×2 (08:26→15:36)
[2018-02-11] MEDS: Linezolid 600 MG TABLET PO SCH ×2 (08:26→22:02)
[2018-02-11] MEDS: tiZANidine 4 MG TABLET PO SCH ×3 (08:26→22:02)
[2018-02-11] MEDS: Thiamine (B-1) 100 MG TABLET PO SCH (08:26)
[2018-02-11] MEDS: Pregabalin 75 MG CAPSULE PO SCH ×2 (08:26→22:02)
[2018-02-11] MEDS: Diltiazem CD (24hr) 120 MG CAPSULE PO SCH (08:26)
[2018-02-11] MEDS: Insulin LISPRO 300 UNITS/3 ML VIAL SQ SCH ×4 (08:27→22:06)
--- NOTE | 2018-02-11 10:04 | Internal Med Progress Note ---
Date of Encounter: 02/11/18 Time of Encounter: 10:00 - Assessment and plan (1) Sepsis Current Visit: Yes Status: Resolved Assessment and plan: Presented with leukocytosis and tachycardia, possible pneumonia, bilateral leg cellulitis, right foot ulcer. Treating underlying causes as below. Qualifiers: Sepsis type: sepsis due to unspecified organism Qualified Code(s): A41.9 - Sepsis, unspecified organism (2) Ulcer of right heel Current Visit: Yes Status: Chronic Assessment and plan: POD #10 s/p debridement of right heel with podiatry. cultures + for MDR klebseilla, proteus, and VRE. wound vac applied. On zosyn/zyvox per ID. plan to d/c to SNF on Monday on IV abx. PICC line placed. (3) HAP (hospital-acquired pneumonia) Current Visit: Yes Status: Suspected Assessment and plan: On zyvox/zosyn. ID is following. (4) Melena Current Visit: Yes Status: Acute Assessment and plan: Hgb stable around 8.5. -FOBT was done and was positive. GI consulted, EGD showed duodenal ulcer and prepyloric ulcer both nonbleeding. c/w PPI and carafate. If H/H stable by Monday we can d/c. s (5) HTN (hypertension) Current Visit: No Status: Chronic Assessment and plan: Stable. c/w home meds (6) HLD (hyperlipidemia) Current Visit: No Status: Chronic Assessment and plan: c/w statin. (7) Diastolic heart failure Current Visit: No Status: Chronic Assessment and plan: Pt is on Lasix and beta blockers. Holding lasix today due to contraction alkalosis. Given diamox yesterday. Will give another dose today. Wean O2 as tolerated. (8) Type 2 diabetes mellitus Current Visit: No Status: Chronic Assessment and plan: cw SSI and levemir 30 units QHS. Accucheks. (9) REGINALD on CPAP Current Visit: No Status: Chronic Assessment and plan: Continue CPAP at night (10) Morbid obesity Current Visit: No Status: Chronic Assessment and plan: counseled. (11) DVT prophylaxis Current Visit: Yes Status: Acute Assessment and plan: Heparin subcutaneous - Time Spent With Patient Total time spent is greater than 50% in coordination of care (as documented) at patient's floor/unit and/or counseling patient: - Subjective Interval history: Patient was seen and examined. No acute events. Hgb is stable this morning at 8.4. Awaiting placement. patient is here with sepsis stemming from right lower ext ulcer, cellulitis, and HCAP. s/p I&D in OR on 02/01. cultures + for MDR klebseilla, proteus, and now VRE. multiple abx since admission and currently on zosyn and zyvox. Hemodynamically stable. O2 needs at 4L. Patient has had a drop in H/H and FOBT is +. Needed PRBCs transfusion while here for hgb <7. labs today pending. Seen by GI and EGD showed small blood clot and oozing in prepyloric stomach as well as one non-bleeding cratered duodenal ulcer with no stigamta of bleeding. Plan to d/c on Monday. - Constitutional Vitals: Temp Pulse Resp BP Pulse Ox 98.1 F 76 18 130/56 90 02/11/18 07:01 02/11/18 07:01 02/11/18 07:01 02/11/18 07:01 02/11/18 08:37 General appearance: Present: cooperative, disheveled, morbidly obese, obese, answers questions appropriately Exam: GEN: NAD CVS: RRR. S1, S2, No m/r/g RESP: CTAB ABD: Soft, NT, ND, +BS EXT: 1+ edema. 2+ DP. Lower extremities wrapped bilaterally NEURO: Nonfocal Internal Medicine: Result - Labs CBC & Chem 7: 02/11/18 04:51 02/11/18 04:51 Labs: Short CBC 02/11/18 Range/Units 04:51 WBC 11.2 H (4.3-11.1) K/mcL Hgb 8.4 L (11.5-15.4) g/dL Hct 29.0 L (35.3-44.9) % Plt Count 283 (140-400) K/mcL Neutrophils # 7.6 (1.6-8.9) K/mcL BMP 02/11/18 04:51 Sodium 143 Potassium 3.8 Chloride 100 Carbon Dioxide 40 H* BUN 34 H Creatinine 1.02 Glucose 95 Calcium 8.2 L - ABG Interpretation ABG results: ABG ABG pH 7.43 pH Units (7.32-7.45) 02/09/18 17:48 ABG pCO2 65 mmHg (35-45) H 02/09/18 17:48 ABG pO2 68 mmHg (85-104) L 02/09/18 17:48 ABG O2 Saturation 93 % (95-98) L 02/09/18 17:48 PT/INR, D-dimer PT 13.8 Seconds (9.4-12.1) H 01/29/18 17:11 - VTE Documentation of Mechanical Device: Intermittent pneumatic compression device Consult Discharge Plan - Plan Referrals: Jc Tsai MD [Primary Care Provider] -
[2018-02-11] MEDS: *HR* OxyCODONE Immed Rel 5 MG TABLET PO PRN (13:12)
[2018-02-11] MEDS ORDERED: Furosemide 20 MG/2 ML VIAL IVP ONE (19:06)
[2018-02-11] MEDS: Gabapentin 300 MG CAPSULE PO SCH (22:02)
[2018-02-11] MEDS: Insulin DETEMIR 100 UNIT/ML X5UNITS SQ SCH (22:04)
[2018-02-11] MEDS: Latanoprost 2.5 ML BOTTLE BOTH EYES SCH (22:07)
[2018-02-12] MEDS: Piperacillin/Tazobactam 3.375 GM in 0.9 % Sodium Chloride Mini Bag 100 ML IVPB SCH ×3 (05:06→21:03)
[2018-02-12 06:16] LABS: Basophils # 0.1 K/mcL (0.0-0.2); Basophils % 0.7 %; Eosinophils # 0.2 K/mcL (0.0-0.6); Eosinophils % 1.2 %; Hematocrit 28.2 % (35.3-44.9); Hemoglobin 8.2 g/dL (11.5-15.4); Immature Granulocytes % 0.6 % (0-4); Lymphocytes # 2.2 K/mcL (0.6-4.6); Lymphocytes % 16.3 %; Mean Corpuscular HGB Conc 29.1 g/dL (31.6-35.5); Mean Corpuscular Volume 92.8 fL (83.0-100.0); Mean Platelet Volume 11.8 fL (9.4-12.4); Monocytes # 0.7 K/mcL (0.0-1.3); Monocytes % 5.3 %; Neutrophils # 10.2 K/mcL (1.6-8.9); Platelet Count 282 K/mcL (140-400); Red Blood Count 3.04 M/mcL (3.82-4.97); Red Cell Distribution Width 20.1 % (11.5-14.5); Segmented Neutrophils % 75.9 %
[2018-02-12 06:47] LABS: Calcium 8.5 mg/dL (8.6-10.3); Potassium 4.8 mEq/L (3.5-5.1)
[2018-02-12] MEDS ORDERED: Furosemide 40 MG/4 ML VIAL IVP STA ×2 (08:38→17:13)
[2018-02-12] MEDS: tiZANidine 4 MG TABLET PO SCH ×3 (08:39→21:05)
[2018-02-12] MEDS ORDERED: Furosemide 40 MG/4 ML VIAL ONE ×2 (08:41→17:19)
[2018-02-12 09:12] LABS: ABG Base Excess 12 mEq/L (-2 to 3); ABG HCO3 43 mEq/L (21-27); ABG Oxygen Saturation 87 % (95-98); ABG PCO2 104 mmHg (35-45); ABG PH 7.22 pH Units (7.32-7.45); ABG PO2 68 mmHg (85-104); ABG TCO2 46 mEq/L (20-26)
--- NOTE | 2018-02-12 10:24 | Internal Med Progress Note ---
Date of Encounter: 02/12/18 Time of Encounter: 08:45 - Assessment and plan (1) Acute on chronic respiratory failure with hypoxia and hypercapnia Current Visit: Yes Status: Acute Assessment and plan: This morning pt was found to be slumped over, lethargic, not responsing to questions -she was on 95% on 11L O2 -pt had STAT cxr and was found to have pulmonary edema -got ABG - pCO2 102, pH 7.22 -respiratory therapy put on BiPAP -will repeat ABG at noon -IV Lasix 40mg once -will check CBC in the morning -titrate O2 down as tolerated -cxr in the AM -fluid restriction 1.5L (2) Ulcer of right heel Current Visit: Yes Status: Acute Assessment and plan: POD #11 s/p debridement of right heel with podiatry. -wound vac applied, pt will be discharged to SNF for fpc therapy -Wound cultures growing ESBL Klebsiella, Proteus penneri, gram (+) cocci - Patient will need intermission coordinator abx, PICC line consulted. She is on zosyn, as per ID and will be on IV abx for 2-4wks PT evaluation recommend ECF; social science research assistant on board -pt will go to SNF upon d/c -pt got PICC line Qualifiers: Non-pressure ulcer stage: unspecified non-pressure ulcer stage Qualified Code(s): L97.419 - Non-pressure chronic ulcer of right heel and midfoot with unspecified severity (3) DVT prophylaxis Current Visit: Yes Status: Acute Assessment and plan: SCD (4) Morbid obesity Current Visit: No Status: Chronic Assessment and plan: BMI 46 -encourage low fat, low cholesterol, diabetic diet -pt is noncompliant (5) HTN (hypertension) Current Visit: No Assessment and plan: On Coreg and Losartan -BP today 143/65 -well controlled Qualifiers: Hypertension type: essential hypertension Qualified Code(s): I10 - Essential (primary) hypertension (6) HLD (hyperlipidemia) Current Visit: No Status: Chronic Assessment and plan: c/w statin. -counseling psychologist on low fat, low cholesterol diet Qualifiers: Hyperlipidemia type: unspecified Qualified Code(s): E78.5 - Hyperlipidemia , unspecified (7) Diastolic heart failure Current Visit: No Status: Chronic Assessment and plan: Pt is on Lasix and beta blockers. -pt has telemetry -TTE in 11/2016 showed LVEF 60%, concentric LVH, moderate diastolic dysfxn -pt should eat a heart healthy diet and lose weight -Lasix given one time today for pulmonary edema -repeat CXR in the morning Qualifiers: Heart failure chronicity: chronic Qualified Code(s): I50.32 - Chronic diastolic (congestive) heart failure (8) Type 2 diabetes mellitus Current Visit: No Status: Chronic Assessment and plan: cw SSI and levemir 30 units QHS. Accucheks. BG this morning 150 Qualifiers: Diabetes mellitus fpc insulin use: with fpc use Diabetes mellitus complication status: with skin complications Diabetes mellitus complication detail: with foot ulcer Qualified Code(s): E11.621 - Type 2 diabetes mellitus with foot ulcer; L97.509 - Non-pressure chronic ulcer of other part of unspecified foot with unspecified severity; Z79.4 - long-term ( current) use of insulin (9) REGINALD on CPAP Current Visit: No Status: Chronic Assessment and plan: Continue CPAP at night -BiPAP today for pCO2 of 102 (10) Sepsis Current Visit: Yes Status: Resolved Assessment and plan: On admition met SIRS criteria = leukocytosis and tachycardia -possible pneumonia, bilateral leg cellulitis, right foot ulcer. -resolved Qualifiers: Sepsis type: sepsis due to unspecified organism Qualified Code(s): A41.9 - Sepsis, unspecified organism (11) HAP (hospital-acquired pneumonia) Current Visit: Yes Status: Resolved Assessment and plan: On Zosyn -check CBC in AM -resolved - Time Spent With Patient Total time spent is greater than 50% in coordination of care (as documented) at patient's floor/unit and/or counseling patient: less than 15 minutes - Subjective Interval history: Pt is seen at bedside. She is hospital day 14, s/p right diabetic foot ulcer debridement by consulting utility forester. -pt is extremely lethargic at bedside, will not answer questions, she is slumped over and unable to pull herself up -got a STAT cxr shwoing pulmonary edema, ABG showed pCO2 104. Put pt on BiPAP and one time dose of 40mg IV Lasix -repeating ABG at noon -Hg 8.2. CBC in the AM, continue to follow hemoglobin -she is on zosyn as per ID, will be on IV abx for 2-4wks -pt is a poorly controlled diabetic. Increased her Levemir to 30U yesterday, her fasting BG is 150 Fluids - held Electrolytes - no abnormal values Nutrition - tolerating diet, on cardiac/diabetic diet GI prophylaxis - Protonix 40mg BID PO, carafate DVT prophylaxis - SCD - Constitutional Vitals: Temp Pulse Resp BP Pulse Ox 97.8 F 71 24 143/65 91 02/12/18 07:28 02/12/18 07:28 02/12/18 09:17 02/12/18 07:28 02/12/18 09:17 General appearance: Present: cooperative, disheveled, morbidly obese, obese, answers questions appropriately - Head Head exam: Present: normal inspection - Neck Neck exam general surgery: Present: supple - Respiratory Respiratory exam: Present: decreased breath sounds - Cardiovascular Cardiovascular exam: Present: RRR, +S1, +S2 - GI/Abdominal GI/Abdominal exam: Present: soft, no peritoneal signs. Absent: tenderness - Neurological Exam Neurological exam: Present: no focal deficits - Skin Skin exam: Present: excoriation (B/L cellulitis of the LE) Internal Medicine: Result - Labs CBC & Chem 7: 02/12/18 05:43 02/12/18 05:43 Labs: Short CBC 02/12/18 Range/Units 05:43 WBC 13.5 H (4.3-11.1) K/mcL Hgb 8.2 L (11.5-15.4) g/dL Hct 28.2 L (35.3-44.9) % Plt Count 282 (140-400) K/mcL Neutrophils # 10.2 H (1.6-8.9) K/mcL BMP 02/12/18 05:43 Sodium 140 Potassium 4.8 Chloride 101 Carbon Dioxide 38 H BUN 37 H Creatinine 1.14 Glucose 170 H Calcium 8.5 L Cardiac Enzymes 02/11/18 Range/Units 17:28 Troponin I < 0.03 (< 0.04) ng/mL - ABG Interpretation ABG results: ABG ABG pH 7.22 pH Units (7.32-7.45) L 02/12/18 08:52 ABG pCO2 104 mmHg (35-45) H* 02/12/18 08:52 ABG pO2 68 mmHg (85-104) L 02/12/18 08:52 ABG O2 Saturation 87 % (95-98) L 02/12/18 08:52 PT/INR, D-dimer PT 13.8 Seconds (9.4-12.1) H 01/29/18 17:11 - Impressions Impressions Chest X-Ray 02/11/18 17:16 IMPRESSION: Worsening pleural effusions and patchy airspace disease. D/ / Clare Escobar MD / Clare Escobar MD Interpreting Provider: Clare Escobar MD Chest X-Ray 02/12/18 08:21 IMPRESSION: Moderately improved aeration from prior imaging. Pattern evidence of underlying pulmonary edema that is improved. D/ / João Prieto MD / João Prieto MD Interpreting Provider: João Prieto MD - VTE Documentation of Mechanical Device: Intermittent pneumatic compression device Consult Discharge Plan - Plan Referrals: Jc Tsai MD [Primary Care Provider] -
--- NOTE | 2018-02-12 11:07 | Event Note ---
Date of Encounter: 02/12/18 Time of Encounter: 10:59 Patient was seen and examined. I agree with the note as written by the resident physician. She is more lethargic and has higher O2 needs this morning. ABG showed PH 7.22 and PCO2 104. CXR yesterday showed worsening pleural effusion and pulm edema. Gave lasix 20 mg. CXR looks better this morning. T max 100.4. patient is here with sepsis stemming from right lower ext ulcer, cellulitis, and HCAP. s/p I&D in OR on 02/01. cultures + for MDR klebseilla, proteus, and now VRE. multiple abx since admission and currently on zosyn and zyvox. Hemodynamically stable. O2 needs at 4L. Patient has had a drop in H/H and FOBT is +. Needed PRBCs transfusion while here for hgb <7. labs today pending. Seen by GI and EGD showed small blood clot and oozing in prepyloric stomach as well as one non- bleeding cratered duodenal ulcer with no stigamta of bleeding. GEN: NAD CVS: RRR. S1, S2, No m/r/g RESP: CTAB ABD: Soft, NT, ND, +BS EXT: 1+ edema. 2+ DP. Lower extremities wrapped bilaterally NEURO: Nonfocal Bipap for now and repeat ABG in a couple of hours Lasix 40 mg IV stat. Monitor I&Os Monitor kidney function Potential for ICU transfer if not improving c/s pulm if not improving on Bipap c/w current zyvox and zosyn. Appreciate ID help repeat blood cx. check UA Wean O2 as tolerated Oral PPi Glycemic control DVT ppx Hold Dc
--- NOTE | 2018-02-12 11:08 | Infectious Disease Progress No ---
Date of Encounter: 02/12/18 Time of Encounter: 11:08 - Assessment and Plan (1) Sepsis Current Visit: No Status: Resolved Met 3/4 SIRS criteria, with leukocytosis, tachycardia, tachypnea - Known source of infection with multifocal pneumonia, UTI, and cellulitis - Home health nurse reported a fever of 102 before admission - Patient was given IV fluid resuscitation in the emergency department - Patient had a fever this morning at 100.4 - He is experiencing an increased demand and oxygen - Blood cultures from and are currently pending - White count has increased to 13.5 - Currently on IV Zosyn and PO Zyvox - Plan is 3 more days of antibiotics Qualifiers: Sepsis type: sepsis due to unspecified organism Qualified Code(s): A41.9 - Sepsis, unspecified organism (2) Ulcer of right heel Current Visit: Yes Status: Acute - Patient has necrotic right heel ulcer and bilateral lower extremity cellulitis - Normally sees maori liaison adviser Dr. Stoll - CT scan of the legs was negative for osteomyelitis; did not demonstrate extensive subcutaneous edema - Underwent surgical debridement - R foot wound CX: Klebsiella ESBL sensitive to Zosyn, Imipenem, Ertapenem, Proteus, MECHANICAL EQUIPMENT SALES ENGINEER - We recommend continuation of zosyn for 2-4 weeks; patient will also need agressive debridement and wound care - PO Zyvox due to +VRE wound CX Qualifiers: Non-pressure ulcer stage: unspecified non-pressure ulcer stage Qualified Code(s): L97.419 - Non-pressure chronic ulcer of right heel and midfoot with unspecified severity (3) UTI (urinary tract infection) Current Visit: No Status: Resolved Patient was recently discharged from hospital on 01/23; during hospitalization, patient was discharged home to complete a course of doxycycline fosfomycin until 01/30 for UTI with ESBL Klebsiella - UA demonstrates large amount of leukocyte esterase, WBC TNTC - Urine culture from 01/30 is negative - Continue IV antibiotics as above Qualifiers: Urinary tract infection type: site unspecified Hematuria presence: without hematuria Qualified Code(s): N39.0 - Urinary tract infection, site not specified (4) HAP (hospital-acquired pneumonia) Current Visit: Yes Status: Resolved - Patient was recently discharged on 01/23 - On arrival, SPO2 was 84% on room air; heart rate in the 130s - Chest x-ray demonstrated increasing pulmonary edema with worsening basilar atelectasis - CTA demonstrated multifocal airspace consolidation throughout both lungs; most likely reflective of multifocal pneumonia. - Continue bronchodilators and incentive spirometry - Resp. infection panel negative - Legionella and strep antigen both negative - Patient continues to experience increasing oxygen demand - IV antibiotics as above (5) Venous stasis dermatitis of both lower extremities Current Visit: Yes Status: Chronic - CT of the legs demonstrated extensive subcutaneous edema skin thickening of the bilateral lower extremities - Findings are likely reflective of chronic venous stasis/lymphedema versus cellulitis - No organized drainable fluid collection has been identified - Continue wound care (6) Diastolic heart failure Current Visit: No Status: Chronic - Acute on chronic diastolic CHF exacerbation - Presented with shortness of breath, pedal edema, rales on exam, and tachycardia with heart rate in the 130s - CXR revealed increasing pulmonary edema with worsening bibasilar atelectasis. - Echo 11/11/17 revealed LVEF 55-60%, mild concentric LVH - Management per primary team Qualifiers: Heart failure chronicity: chronic Qualified Code(s): I50.32 - Chronic diastolic (congestive) heart failure (7) Type 2 diabetes mellitus Current Visit: No Status: Chronic - HGB a1c level 11% on 09/20/17 - Continue basal and SSI - Monitor accu-checks Qualifiers: Diabetes mellitus watermelon inspector insulin use: with residential use Diabetes mellitus complication status: with skin complications Diabetes mellitus complication detail: with foot ulcer Qualified Code(s): E11.621 - Type 2 diabetes mellitus with foot ulcer; L97.509 - Non-pressure chronic ulcer of other part of unspecified foot with unspecified severity; Z79.4 - jail ( current) use of insulin (8) Thyroid nodule Current Visit: Yes Status: Acute - Incidentally found on chest CTA on 01/29; stable 2.4 cm low attenuation nodule within the left thyroid lobe. - Follow-up the outpatient setting (9) DOROTHEA (acute kidney injury) Current Visit: Yes Status: Acute Resolved - Subjective Interval history: Patient was seen and examined at bedside; currently on BiPAP. Patient is very lethargic, and his unable to answer any questions. Per chart review, patient had increased oxygen needs this morning. Chest x-ray on 02/11 demonstrated worsening pleural effusion and pulmonary edema. She was given Lasix 20 mg. Repeat x-ray demonstrates improvement. Infect Dis PN-Objective Data - Labs CBC & Chem 7: 02/12/18 05:43 02/12/18 05:43 Labs: Laboratory Results - last 24 hr 02/10/18 02/11/18 02/11/18 11:17 06:59 11:16 WBC RBC Hgb Hct MCV MCH MCHC RDW Plt Count MPV Immature Gran % Seg Neutrophils % Lymphocytes % Monocytes % Eosinophils % Basophils % Neutrophils # Lymphocytes # Monocytes # Eosinophils # Basophils # ABG pH ABG pCO2 ABG pO2 ABG HCO3 ABG Total CO2 ABG O2 Saturation ABG Base Excess Inspired O2 Sodium Potassium Chloride Carbon Dioxide BUN Creatinine Est GFR ( Amer) Est GFR (Non-Af Amer) BUN/Creatinine Ratio Glucose POC Glucose 155 H 103 H 133 H Calculated Osmolality Calcium Magnesium Troponin I 02/11/18 02/11/18 02/11/18 16:21 17:28 21:23 WBC RBC Hgb Hct MCV MCH MCHC RDW Plt Count MPV Immature Gran % Seg Neutrophils % Lymphocytes % Monocytes % Eosinophils % Basophils % Neutrophils # Lymphocytes # Monocytes # Eosinophils # Basophils # ABG pH ABG pCO2 ABG pO2 ABG HCO3 ABG Total CO2 ABG O2 Saturation ABG Base Excess Inspired O2 Sodium Potassium Chloride Carbon Dioxide BUN Creatinine Est GFR ( Amer) Est GFR (Non-Af Amer) BUN/Creatinine Ratio Glucose POC Glucose 193 H 153 H Calculated Osmolality Calcium Magnesium Troponin I < 0.03 02/12/18 02/12/18 02/12/18 05:43 05:43 08:13 WBC 13.5 H RBC 3.04 L Hgb 8.2 L Hct 28.2 L MCV 92.8 MCH 27.0 L MCHC 29.1 L RDW 20.1 H Plt Count 282 MPV 11.8 Immature Gran % 0.6 Seg Neutrophils % 75.9 Lymphocytes % 16.3 Monocytes % 5.3 Eosinophils % 1.2 Basophils % 0.7 Neutrophils # 10.2 H Lymphocytes # 2.2 Monocytes # 0.7 Eosinophils # 0.2 Basophils # 0.1 ABG pH ABG pCO2 ABG pO2 ABG HCO3 ABG Total CO2 ABG O2 Saturation ABG Base Excess Inspired O2 Sodium 140 Potassium 4.8 Chloride 101 Carbon Dioxide 38 H BUN 37 H Creatinine 1.14 Est GFR ( Amer) 60 Est GFR (Non-Af Amer) 49 L BUN/Creatinine Ratio 32 H Glucose 170 H POC Glucose 150 H Calculated Osmolality 303 H Calcium 8.5 L Magnesium 2.0 Troponin I 02/12/18 08:52 WBC RBC Hgb Hct MCV MCH MCHC RDW Plt Count MPV Immature Gran % Seg Neutrophils % Lymphocytes % Monocytes % Eosinophils % Basophils % Neutrophils # Lymphocytes # Monocytes # Eosinophils # Basophils # ABG pH 7.22 L ABG pCO2 104 H* ABG pO2 68 L ABG HCO3 43 H ABG Total CO2 46 H ABG O2 Saturation 87 L ABG Base Excess 12 H Inspired O2 36.0 Sodium Potassium Chloride Carbon Dioxide BUN Creatinine Est GFR ( Amer) Est GFR (Non-Af Amer) BUN/Creatinine Ratio Glucose POC Glucose Calculated Osmolality Calcium Magnesium Troponin I Cultures: Cultures 02/08/18 17:33 Blood Culture - Preliminary Peripheral Venipuncture Culture is incubating and being continuously monitored for growth. Final report to follow. 02/08/18 17:33 Blood Culture - Preliminary Peripheral Venipuncture Culture is incubating and being continuously monitored for growth. Final report to follow. 02/01/18 10:50 Wound Culture - Final Right Foot Klebsiella pneumoniae MDRO Proteus penneri Vancomycin Resistant Enterococcus faecium 02/01/18 11:30 Surgical Biopsy Culture - Final Right Foot Klebsiella pneumoniae MDRO Proteus penneri Vancomycin Resistant Enterococcus faecium 02/01/18 11:30 Anaerobic Culture - Final Right Foot No anaerobes were recovered. Serology 02/07/18 02/07/18 01/30/18 Range/Units 04:28 04:28 18:41 Stool Occult Blood Positive A (Negative) Stl C. cayetanensis PCR Not detected (Not detect) Stool Rotavirus A PCR Not detected (Not detect) Stl Adenov F 40/41 PCR Not detected (Not detect) Stool Astrovirus (PCR) Not detected (Not detect) Stool Campylobacter PCR Not detected (Not detect) Stl C. diff Tox A/B PCR Not detected (Not detect) Stool Cryptosporidium PCR Not detected (Not detect) Stl Sh Tox Pr E STEC PCR Not detected (Not detect) Stool E coli O157 PCR Not detected (Not detect) Stl Enterotoxigenic E PCR Not detected (Not detect) Stool EPEC (PCR) Not detected (Not detect) Stool EAEC (PCR) Not detected (Not detect) Stl E. histolytica PCR Not detected (Not detect) Stool Giardia Lamblia PCR Not detected (Not detect) Stool Salmonella PCR Not detected (Not detect) Stool Sapovirus (PCR) Not detected (Not detect) Stl P. shigelloides PCR Not detected (Not detect) Stl Shigella/EIEC PCR Not detected (Not detect) St Y.enterocolitica PCR Not detected (Not detect) Stool Vibrio (PCR) Not detected (Not detect) Stl Vibrio cholerae PCR Not detected (Not detect) Stl Norovirus GI/GII PCR Not detected (Not detect) Stl GI Panel (PCR) Com See below Chlamy pneumoniae PCR Not Detected (Not Detect) Adenovirus (PCR) Not Detected (Not Detect) B. pertussis DNA (PCR) Not Detected (Not Detect) B.parapertussis DNA PCR Not Detected (Not Detect) Coronavirus OC43 (PCR) Not Detected (Not Detect) Coronavirus HKU1 (PCR) Not Detected (Not Detect) Coronavirus 229E (PCR) Not Detected (Not Detect) Coronavirus NL63 (PCR) Not Detected (Not Detect) Human Metapneumovir PCR Not Detected (Not Detect) Influenza A (H1) PCR Not Detected (Not Detect) Influ A (H1N1/09) PCR Not Detected (Not Detect) Influenza A (H3) PCR Not Detected (Not Detect) Influenza A Untype (PCR) Not Detected (Not Detect) Influenza Type B (PCR) Not Detected (Not Detect) M.pneumoniae DNA (PCR) Not Detected (Not Detect) Parainfluenza 1 (PCR) Not Detected (Not Detect) Parainfluenza 2 (PCR) Not Detected (Not Detect) Parainfluenza 3 (PCR) Not Detected (Not Detect) Parainfluenza 4 (PCR) Not Detected (Not Detect) RSV (PCR) Not Detected (Not Detect) Entero/Rhino (PCR) Not Detected (Not Detect) - Impressions Impressions Chest X-Ray 02/11/18 17:16 IMPRESSION: Worsening pleural effusions and patchy airspace disease. D/ / Clare Escobar MD / Clare Escobar MD Interpreting Provider: Clare Escobar MD Chest X-Ray 02/12/18 08:21 IMPRESSION: Moderately improved aeration from prior imaging. Pattern evidence of underlying pulmonary edema that is improved. D/ / João Prieto MD / João Prieto MD Interpreting Provider: João Prieto MD Exam - Constitutional Vitals: Temp Pulse Resp BP Pulse Ox 97.8 F 71 24 143/65 91 02/12/18 07:28 02/12/18 07:28 02/12/18 09:17 02/12/18 07:28 02/12/18 09:17 - Additional findings Additional findings: - Head Head exam: Present: atraumatic, normal inspection. Currently on BiPAP - Respiratory Respiratory exam: Present: wheezes, rhonchi. Absent: decreased breath sounds, tachypnea - Cardiovascular Cardiovascular exam: Present: RRR, +S1, +S2 - Extremities Exam Additional comments: Both lower extremities are currently wrapped. S/P debridement of R foot. - Psychiatric Psychiatric exam: Present: normal affect - Skin Skin exam: Present: rash - VTE Documentation of Mechanical Device: Intermittent pneumatic compression device Consult Discharge Plan - Plan Referrals: Jc Tsai MD [Primary Care Provider] - - Attending Attestation I examined this patient and my medical decision-making was reviewed with the Resident Physician. I agree with the documented findings, disposition and treatment plan as described except to the extent set forth below.
[2018-02-12 11:27] LABS: ABG Base Excess 14 mEq/L (-2 to 3); ABG HCO3 43 mEq/L (21-27); ABG Oxygen Saturation 95 % (95-98); ABG PCO2 88 mmHg (35-45); ABG PO2 89 mmHg (85-104); ABG TCO2 46 mEq/L (20-26); Blood Gas Modality CPAP/PS
[2018-02-12] MEDS: Insulin LISPRO 300 UNITS/3 ML VIAL SQ SCH ×4 (14:13→20:59)
[2018-02-12] MEDS: Sucralfate 1 GM TABLET PO SCH ×2 (14:13→14:17)
[2018-02-12] MEDS: Pregabalin 75 MG CAPSULE PO SCH ×2 (14:15→21:05)
[2018-02-12] MEDS: Diltiazem CD (24hr) 120 MG CAPSULE PO SCH (14:17)
[2018-02-12] MEDS: Linezolid 600 MG TABLET PO SCH ×2 (14:17→21:06)
[2018-02-12] MEDS: Lactobacillus 1 EACH CAP.SPRINK PO SCH ×2 (14:18→21:04)
[2018-02-12] MEDS: Thiamine (B-1) 100 MG TABLET PO SCH (14:18)
[2018-02-12 14:41] LABS: Bilirubin,Urine Negative (Negative); Blood,Urine Negative (Negative); Clarity,Urine Clear (Clear); Color,Urine Yellow (Yellow); Glucose,Urine (UA) Normal (Normal); Ketones,Urine Negative (Negative); Leukocyte Esterase,Urine Moderate (Negative); Nitrite,Urine Negative (Negative); Protein,Urine 30 mg/dL (Neg-Trace); Specific Gravity,Urine 1.018 (1.010-1.025); Urobilinogen,Urine Normal (Normal)
[2018-02-12 14:44] LABS: Bacteria,Urine None Seen per hpf (None-Few); Hyaline Casts,Urine None Seen per lpf (None-Few); Squamous Epithelial Cell,Urine Many per lpf (None-Few); WBC,Urine 50-100 per hpf (0-3)
[2018-02-12 14:59] LABS: RBC,Urine 0-3 per hpf (0-3); Yeast,Urine Few per hpf (None Seen)
[2018-02-12 16:37] LABS: ABG Base Excess 15 mEq/L (-2 to 3); ABG HCO3 45 mEq/L (21-27); ABG Oxygen Saturation 95 % (95-98); ABG PCO2 102 mmHg (35-45); ABG PH 7.25 pH Units (7.32-7.45); ABG PO2 97 mmHg (85-104); ABG TCO2 48 mEq/L (20-26)
--- NOTE | 2018-02-12 17:42 | Event Note ---
Date of Encounter: 02/12/18 Time of Encounter: 17:30 I was called to evaluate the patient on an urgent basis by the primary medicine service they had to concern for impending respiratory failure. I saw patient in transit from [address] [place] [address] to intensive care unit. In brief (full consult note to follow) the patient was admitted for diabetic foot ulcer has been on antimicrobials for this course complicated by acute on chronic respiratory failure which is worsened over last 24 hours complicated by increased lethargy patient has been on noninvasive ventilation over the course of the day with the initial improvement in hypercapnia repeat ABG within the last hour showed interval worsening of hypoxic hypercapnic respiratory failure. She is been undergoing Lasix diuresis for hydrostatic pulmonary edema which seemed to contribute to her initial improvement earlier in the day she is also noted to have a low-grade temperature. On exam patient is hemodynamically stable on BiPAP she is saturating high 90s on approximately 50% FiO2 She is lethargic but easily arousable and able to follow simple commands and answer simple questions She is morbidly obese with diminished breath sounds throughout crackles appreciated in the lung bases. Labs ABG shows acute on chronic hypoxic hypercapnic respiratory (primarily worsening hypercapnia) Persistent leukocytosis which is slightly worse from previous day examination No evidence of acute kidney injury Chronic metabolic alkalosis Chest x-ray notable for cardiogenic pulmonary edema CT chest concerning for bilateral atelectasis with the lateral pleural effusions which are dependent in nature possibly but certainly not conclusively consistent with multifocal pneumonia. Assessment/Plan: Acute on chronic hypoxic hypercapnic respiratory failure which is likely secondary to hydrostatic pulmonary edema currently on BiPAP which I have adjusted her IPAP to EPAP ratio increasing pressure settings. She was on relatively modest noninvasive ventilatory support she is lethargic but easily arousable and I feel clinically that there is still room to adjust noninvasive ventilation while treating underlying hydrostatic pulmonary edema with diuresis to monitor closely in the intensive care unit setting as opposed to proceeding with endotracheal intubation at this time although patient clearly can decompensate further to requiring endotracheal intubation I Have requested an additional dose of Lasix to be given the patient Recommend replacements of electrolytes per protocol Infectious disease is managing patient at present with regards antimicrobial coverage I do recommend re-evaluation for sepsis as possibly this could reflect development of hospital associated pneumonia to this end I would send blood cultures and urine culture (and sputum if able to obtain although I think that this is unlikely). If patient continues to spike fever or worsening evidence of sepsis would have low threshold for broadening antimicrobials which would likely include carbapenem and vancomycin in lieu of the fact that she has been on coverage with Pip/Tazo and Linezolid. Repeat CBC and BMP check troponin ECG and BNP along with lactate The ABG within 1 hour. If patient has worsening lethargy and becomes unresponsive clearly she would need to be intubated. My assessment and plan was communicated directly with the primary medicine attending as well as the medicine residents caring for the patient on service. Please call with any questions
[2018-02-12 18:44] LABS: Basophils # 0.1 K/mcL (0.0-0.2); Basophils % 0.7 %; Eosinophils # 0.1 K/mcL (0.0-0.6); Hematocrit 27.8 % (35.3-44.9); Hemoglobin 8.1 g/dL (11.5-15.4); Immature Granulocytes % 0.7 % (0-4); Lymphocytes % 16.9 %; Mean Corpuscular HGB Conc 29.1 g/dL (31.6-35.5); Mean Corpuscular Hemoglobin 26.6 pg (28.0-33.3); Mean Corpuscular Volume 91.1 fL (83.0-100.0); Mean Platelet Volume 11.4 fL (9.4-12.4); Monocytes # 0.6 K/mcL (0.0-1.3); Monocytes % 5.3 %; Neutrophils # 9.1 K/mcL (1.6-8.9); Platelet Count 283 K/mcL (140-400); Red Blood Count 3.05 M/mcL (3.82-4.97); Red Cell Distribution Width 19.7 % (11.5-14.5); Segmented Neutrophils % 75.4 %
[2018-02-12 18:45] LABS: Basophils # 0.1 K/mcL (0.0-0.2); Basophils % 0.6 %; Eosinophils # 0.1 K/mcL (0.0-0.6); Eosinophils % 0.9 %; Hematocrit 27.8 % (35.3-44.9); Hemoglobin 8.2 g/dL (11.5-15.4); Immature Granulocytes % 0.6 % (0-4); Lymphocytes # 2.1 K/mcL (0.6-4.6); Lymphocytes % 17.3 %; Mean Corpuscular HGB Conc 29.5 g/dL (31.6-35.5); Mean Corpuscular Hemoglobin 26.9 pg (28.0-33.3); Mean Corpuscular Volume 91.1 fL (83.0-100.0); Mean Platelet Volume 11.8 fL (9.4-12.4); Monocytes # 0.6 K/mcL (0.0-1.3); Monocytes % 5.3 %; Platelet Count 270 K/mcL (140-400); Red Blood Count 3.05 M/mcL (3.82-4.97); Red Cell Distribution Width 19.6 % (11.5-14.5); Segmented Neutrophils % 75.3 %
[2018-02-12 19:00] LABS: Phosphorous 4.3 mg/dL (2.7-4.5)
[2018-02-12 19:00] LABS: ABG Base Excess 15 mEq/L (-2 to 3); ABG HCO3 44 mEq/L (21-27); ABG Oxygen Saturation 97 % (95-98); ABG PCO2 95 mmHg (35-45); ABG PH 7.28 pH Units (7.32-7.45); ABG PO2 114 mmHg (85-104); ABG TCO2 47 mEq/L (20-26); Blood Gas PEEP 8 cm H2O; Blood Gas Pressure Support 20 cm H2O; Blood Gas Respiration Rate 12
[2018-02-12 19:04] LABS: Troponin I < 0.03 ng/mL (< 0.04)
[2018-02-12 19:05] LABS: BUN/Creatinine Ratio 32 (6-26); Blood Urea Nitrogen 33 mg/dL (6-20); Calcium 8.6 mg/dL (8.6-10.3); Carbon Dioxide 39 mEq/L (23-29); Chloride 100 mEq/L (98-107); Glucose 93 mg/dL (70-105); Osmolality,Calculated 303 (280-300); Sodium 143 mEq/L (136-145); eGFR For Non-African Americans 55 (> 60)
[2018-02-12 19:07] LABS: Alanine Aminotransferase 5 Units/L (7-52); Albumin 2.5 g/dL (3.5-5.7); Albumin/Globulin Ratio 0.6 (1.1-2.2); Alkaline Phosphatase 67 Units/L (34-104); Aspartate Amino Transferase 10 Units/L (13-39); BUN/Creatinine Ratio 31 (6-26); Bilirubin,Total 0.3 mg/dL (0.3-1.0); Blood Urea Nitrogen 33 mg/dL (6-20); Calcium 8.6 mg/dL (8.6-10.3); Carbon Dioxide 38 mEq/L (23-29); Chloride 100 mEq/L (98-107); Globulin 4.3 g/dL (2.4-3.5); Glucose 93 mg/dL (70-105); Osmolality,Calculated 301 (280-300); Sodium 142 mEq/L (136-145); Total Protein 6.8 g/dL (6.4-8.9); eGFR For Non-African Americans 53 (> 60)
[2018-02-12] MEDS: Latanoprost 2.5 ML BOTTLE BOTH EYES SCH (21:04)
[2018-02-12] MEDS: Gabapentin 300 MG CAPSULE PO SCH (21:05)
[2018-02-12] MEDS: Insulin DETEMIR 100 UNIT/ML X5UNITS SQ SCH (21:05)
--- NOTE | 2018-02-13 00:09 | Pulmonology Consult Note ---
<Carlos Bowens - Last Filed: 02/13/18 00:05> Date of Encounter: 02/13/18 Time of Encounter: 00:05 Assessment and Plan (1) Acute on chronic respiratory failure with hypoxia and hypercapnia Current Visit: Yes Status: Acute Patient has been on CPAP at night while patient has been here in the hospital. Patient does have history of REGINALD. Patient did have an event where he was was altered and unable to put follow commands and had difficult time breathing. At that time patient was placed on BiPAP and ABG was done which read 7.25/102/97/45 /48/95. Patient's parameters were changed per pulmonology. Repeat blood gas was done one hour later with an improving CO2 as well as pH at 7.28/95/114/44/47 /97. Due to patient improving will continue on BiPAP. Patient is becoming more alert and is able to protect her airway so we will continue patient on BiPAP and did not need endotracheal intubation at this time. We will also have a low threshold for placing endotracheal tube and family understand as well as patient. This most likely is secondary to patient's worsening respiratory status as well as possible pulmonary edema and worsening hypercapnia with hypoxia changing patient's mental status. After being placed on BiPAP patient did improve greatly. Patient was also given IV Lasix which did help with the diuresis. CT chest were performed today which did show small bilateral pleural effusions as well as progressive consolidation of the bilateral lower lobes which is suggestive atelectasis or pneumonia. At this can patient is arty been on antibiotics including Zosyn and Zyvox so we will continue these and consider broadening antibiotics with infectious diseases consultation if patient's white blood cell count worsens or patient again spikes a fever. Continue BiPAP If patient does not continue to get better consider another dose of Lasix today Consider intubation if patient does worsen. Daily ABGs Appreciate infectious diseases recommendations for antibiotic coverage in case patient does worsen. Patient will be placed on electrolyte protocol to replace electrolytes as needed per nursing protocol (2) Diastolic heart failure Current Visit: Yes Status: Chronic Patient does have history of diastolic heart failure patient has been on Lasix and beta blockers. Last TTE was 12/07 which showed a EF of 60%, and centric LVH , moderate diastolic dysfunction. BNP is now 200 which is better than when originally arrived with 300. Patient does not have worsening pulmonary edema at this time. We will continue to monitor with chest x-rays if patient does worsen. Continue Lasix as tolerated Qualifiers: Heart failure chronicity: chronic Qualified Code(s): I50.32 - Chronic diastolic (congestive) heart failure (3) HTN (hypertension) Current Visit: Yes Status: Chronic On Coreg and losartan Blood pressures have been stable Well controlled Qualifiers: Hypertension type: essential hypertension Qualified Code(s): I10 - Essential (primary) hypertension (4) Type 2 diabetes mellitus Current Visit: Yes Status: Chronic Patient does have type 2 diabetes patient is on sliding scale insulin with Levemir 30 units daily at bedtime as well as Accu-Cheks daily at bedtime Blood glucose have been normal Qualifiers: 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 Patient does have a wound VAC and will be discharged to a SNF for long-term therapy once discharged from the hospital. Wound cultures are growing ESBL Klebsiella, Proteus penneri, gram-positive cocci. Patient will most likely need long-term antibiotics PICC line has been placed she currently is on Zosyn as per ID and will be on this for 2-4 weeks. Infectious disease is following we appreciate their recommendations. Qualifiers: Laterality: right Non-pressure ulcer stage: limited to breakdown of skin Qualified Code(s): L97.511 - Non-pressure chronic ulcer of other part of right foot limited to breakdown of skin (6) REGINALD on CPAP Current Visit: Yes Status: Chronic Patient does have REGINALD and most likely secondary to obesity with a BMI of 46. Continue BiPAP Be sure patient has proper follow-up for CPAP when discharged to SNF (7) DVT prophylaxis Current Visit: Yes Status: Acute SCDs History of Present Illness Consult date: 02/13/18 Requesting physician: Alli Lopez Chief complaint: Weakness History of present illness: 58-year-old female past medical history of diastolic CHF, hypertension, HLD, diabetes type 2, worsening diabetic ulcers presented on 01/29/18 to the emergency department for not feeling well due to having falls, fevers, chills, cough and shortness of breath. Patient is living at home as she refused to go to SNF and was discharged home with a course of doxycycline and fosfomycin to be taken until 01/30/18 for UTI. This is being followed by infectious disease. Patient now been a hospital 15 days was diagnosed with hospital-acquired pneumonia, chronic UTI as well as diabetic ulcers. Infectious disease is again following the patient. Patient is now on Zosyn and Zyvox as antibiotics. Patient seemed to be doing well as pneumonia, white count seem be getting better. This evening patient had a change in mental status had more difficult time breathing and will this is all occurring on BiPAP due to this the primary team was worried patient may need to be intubated and pulmonology was consult it. Changes were made to the BiPAP and patient had been doing better. Patient was transferred to the ICU for further management by the ICU team due to patient's acute respiratory failure. Past Med Surg Social Fam HX - Past Medical History Medical history: CHF, diabetes, hypertension, other Additional medical history: DM Neuropathy Psychiatric history: depression - Past Surgical History Surgical History: hysterectomy, other Additional surgical history: neck surgery, - Social History Smoking Status: Never smoker Smokeless Tobacco Status: No Alcohol use: none Drug use: none - Family History Mother Adopted: No Family Member Ethnicity: Non- Living Status: Hx Family Endocrine Disorder: Yes (diabetes type 2) Father Adopted: No Family Member Ethnicity: Non- Living Status: Age at : 55 Cause of : kidney problems Hx Family Cardiac Disorders: Yes (hypertension) Hx Family Respiratory Disorders: No Hx Family Cancer: No Hx Family GI Disorders: No Hx Family Endocrine Disorder: Yes (kidney disease) Medications and Allergies Atorvastatin [Lipitor] 40 mg PO HS 01/11/16 [History] Insulin ASPART [Novolog Flexpen] 6 - 14 unit SQ TID 01/11/16 [History] Latanoprost [Xalatan] 1 drop BOTH EYES HS 01/11/16 [History] Primidone [Mysoline] 25 - 50 mg PO BID PRN 01/11/16 [History] Ascorbic Acid [Vitamin C] 500 mg PO BID 03/25/16 [History] Docusate Sodium [Colace] 200 mg PO BID 03/25/16 [History] Furosemide [Lasix] 40 mg PO BID 12/06/16 [History] Fluticasone Propionate Nasal [Flonase] 2 spray NS DAILY #1 bottle 08/28/17 [Rx] Brimonidine Tartrate/Timolol [Combigan 0.2%-0.5% Eye Drops] 1 drop OP BID [History] Diltiazem HCl [Diltiazem 12Hr ER] 120 mg PO DAILY 11/10/17 [History] Esomeprazole Magnesium [Nexium] 40 mg PO DAILY 11/10/17 [History] Gentamicin Oint [Garamycin] 1 appl TP BID 11/10/17 [History] Ketoconazole 2% CRM [Nizoral Cream] 1 appl TP DAILY 11/10/17 [History] Ketorolac Tromethamine 1 drop OP QID 11/10/17 [History] Losartan Potassium [Cozaar] 100 mg PO DAILY 11/10/17 [History] Tizanidine HCl 4 mg PO TID 11/20/17 [History] Calcium Carbonate [Tums] 1,000 mg PO Q4HR PRN tab.chew 11/24/17 [Rx] Carvedilol [Coreg] 6.25 mg PO BIDWM tablet 11/24/17 [Rx] Lactobacillus Acidophilus [Acidophilus] 1 each PO BID #10 capsule 11/24/17 [Rx] Pregabalin [Lyrica] 75 mg PO BID 30 Days #60 capsule 11/24/17 [Rx] clonazePAM [Klonopin] 0.5 mg PO BID PRN 5 Days #10 tablet 11/24/17 [Rx] Gabapentin [Neurontin] 300 mg PO HS 01/17/18 [History] Insulin Glargine,Hum.rec.anlog [Basaglar Kwikpen U-100] 40 unit SQ BID 01/17/18 [History] Potassium Chloride [K-Tab ER] 20 meq PO QID 01/17/18 [History] Fosfomycin Tromethamine [Monurol] 3 gm PO Q48H 8 Days #4 packet 01/23/18 [Rx] Nystatin POWDER [Nystop] 1 appl TP BID bottle 01/23/18 [Rx] Ferrous Sulfate 325 mg PO BID 01/30/18 [History] Loratadine [Allergy Relief] 10 mg PO DAILY 01/30/18 [History] Pantoprazole Sodium [Protonix] 40 mg PO DAILY 01/30/18 [History] Polyethylene Glycol 3350 [MiraLAX] 17 gm PO DAILY 01/30/18 [History] 3 Allergy/AdvReac Type Severity Reaction Status Date / Time lisinopril [From Zestril] Allergy Rash Verified 01/17/18 13:50 ROS unobtainable: due to mental status All Systems: The remainder of the systems were reviewed and are negative Physical Examination Vital Signs: Vital Signs, Last 4 Hours Pulse Resp BP Pulse Ox 02/12/18 22:00 111 12 133/62 98 02/12/18 21:00 108 12 125/57 97 General appearance: alert, appears uncomfortable (While on BiPAP) Eyes: nonicteric ENT: oropharynx moist Effort: mildly labored Inspection: normal Auscultation: bilateral: diminished breath sounds, wheezes, rales Cardiovascular: regular rate and rhythm Gastrointestinal: normoactive bowel sounds, soft, non-tender, non-distended Integumentary: normal Extremities: no cyanosis, no edema, no clubbing Musculoskeletal: no deformities, ROM normal non-focal exam, pupils equal and round, motor strength normal and symmetric Results - Laboratory Findings CBC and BMP: 02/12/18 17:30 02/12/18 17:30 ABG ABG pH 7.28 pH Units (7.32-7.45) L 02/12/18 18:49 ABG pCO2 95 mmHg (35-45) H* 02/12/18 18:49 ABG pO2 114 mmHg (85-104) H 02/12/18 18:49 ABG O2 Saturation 97 % (95-98) 02/12/18 18:49 PT/INR, D-dimer PT 13.8 Seconds (9.4-12.1) H 01/29/18 17:11 Abnormal lab findings: Abnormal lab results WBC 12.0 K/mcL (4.3-11.1) H 02/12/18 17:30 RBC 3.05 M/mcL (3.82-4.97) L 02/12/18 17:30 Hgb 8.1 g/dL (11.5-15.4) L 02/12/18 17:30 Hct 27.8 % (35.3-44.9) L 02/12/18 17:30 MCH 26.6 pg (28.0-33.3) L 02/12/18 17:30 MCHC 29.1 g/dL (31.6-35.5) L 02/12/18 17:30 RDW 19.7 % (11.5-14.5) H 02/12/18 17:30 Neutrophils # 9.1 K/mcL (1.6-8.9) H 02/12/18 17:30 Nucleated RBCs/100 WBC 0.2 /100 WBC (0) H 02/10/18 00:51 Immature Plt Fraction 7.1 % (1.1-6.1) H 02/09/18 05:40 ESR >= 130 mm/hr (0-15) H 01/29/18 17:11 PT 13.8 Seconds (9.4-12.1) H 01/29/18 17:11 ABG pH 7.28 pH Units (7.32-7.45) L 02/12/18 18:49 ABG pCO2 95 mmHg (35-45) H* 02/12/18 18:49 ABG pO2 114 mmHg (85-104) H 02/12/18 18:49 ABG HCO3 44 mEq/L (21-27) H 02/12/18 18:49 ABG Total CO2 47 mEq/L (20-26) H 02/12/18 18:49 ABG Base Excess 15 mEq/L (-2 to 3) H 02/12/18 18:49 Carbon Dioxide 39 mEq/L (23-29) H 02/12/18 17:30 BUN 33 mg/dL (6-20) H 02/12/18 17:30 Est GFR (Non-Af Amer) 55 (> 60) L 02/12/18 17:30 BUN/Creatinine Ratio 32 (6-26) H 02/12/18 17:30 Calculated Osmolality 303 (280-300) H 02/12/18 17:30 Direct Bilirubin 0.3 mg/dL (0.0-0.2) H 01/29/18 17:11 AST 10 Units/L (13-39) L 02/12/18 17:27 ALT 5 Units/L (7-52) L 02/12/18 17:27 C-Reactive Protein 140 mg/L (Less than 10) H 01/29/18 17:11 B-Natriuretic Peptide 206 pg/mL (Less than 100) H 02/12/18 17:27 Albumin 2.5 g/dL (3.5-5.7) L 02/12/18 17:27 Globulin 4.3 g/dL (2.4-3.5) H 02/12/18 17:27 Albumin/Globulin Ratio 0.6 (1.1-2.2) L 02/12/18 17:27 Lipase 84 Units/L (11-82) H 01/29/18 17:11 Urine Protein 30 mg/dL (Neg-Trace) H 02/12/18 14:11 Ur Leukocyte Esterase Moderate (Negative) H 02/12/18 14:11 Urine Microscopic WBC 50-100 per hpf (0-3) H 02/12/18 14:11 Ur Squamous Epith Cells Many per lpf (None-Few) H 02/12/18 14:11 Urine Yeast Few per hpf (None Seen) H 02/12/18 14:11 Ur Culture Indicated? NO. (NO) A 02/12/18 14:11 Stool Occult Blood Positive (Negative) A 02/07/18 04:28 Vancomycin Trough 12 mcg/mL (5-10) H 02/03/18 05:28 - Microbiology Findings Microbiology Findings: Microbiology, Last 48 Hours 02/12/18 09:36 Blood Culture - Preliminary Peripheral Venipuncture Culture is incubating and being continuously monitored for growth. Final report to follow. 02/12/18 09:30 Blood Culture - Preliminary Peripheral Venipuncture Culture is incubating and being continuously monitored for growth. Final report to follow. - Diagnostic Findings Chest x-ray: report reviewed, image reviewed CT scan - chest: report reviewed, image reviewed - Clinical Findings Intake & Output: Intake & Output 02/12/18 02/12/18 02/13/18 15:59 23:59 07:59 Intake Total 100 / 100 100 / 100 Output Total 1000 / 1000 1600 / 1600 Balance -900 / -900 -1500 / -1500 Consult Discharge Plan - Plan Referrals: Jc Tsai MD [Primary Care Provider] - <José Miguel Varghese - Last Filed: 02/13/18 11:23> Date of Encounter: 02/13/18 All Systems: The remainder of the systems were reviewed and are negative Physical Examination Vital Signs: Vital Signs, Last 4 Hours Temp Pulse Resp BP Pulse Ox 02/13/18 07:26 81 20 166/73 100 02/13/18 06:00 75 16 137/61 100 02/13/18 05:32 12 162/64 97 02/13/18 05:00 88 13 159/64 95 02/13/18 04:00 97.9 F 90 12 160/67 95 02/13/18 03:56 87 Results - Laboratory Findings CBC and BMP: 02/13/18 05:56 02/13/18 05:56 ABG ABG pH 7.28 pH Units (7.32-7.45) L 02/13/18 05:28 ABG pCO2 97 mmHg (35-45) H* 02/13/18 05:28 ABG pO2 84 mmHg (85-104) L 02/13/18 05:28 ABG O2 Saturation 94 % (95-98) L 02/13/18 05:28 PT/INR, D-dimer PT 13.8 Seconds (9.4-12.1) H 01/29/18 17:11 Abnormal lab findings: Abnormal lab results WBC 12.0 K/mcL (4.3-11.1) H 02/12/18 17:30 RBC 3.05 M/mcL (3.82-4.97) L 02/12/18 17:30 Hgb 8.1 g/dL (11.5-15.4) L 02/12/18 17:30 Hct 27.8 % (35.3-44.9) L 02/12/18 17:30 MCH 26.6 pg (28.0-33.3) L 02/12/18 17:30 MCHC 29.1 g/dL (31.6-35.5) L 02/12/18 17:30 RDW 19.7 % (11.5-14.5) H 02/12/18 17:30 Neutrophils # 9.1 K/mcL (1.6-8.9) H 02/12/18 17:30 Nucleated RBCs/100 WBC 0.2 /100 WBC (0) H 02/10/18 00:51 Immature Plt Fraction 7.1 % (1.1-6.1) H 02/09/18 05:40 ESR >= 130 mm/hr (0-15) H 01/29/18 17:11 PT 13.8 Seconds (9.4-12.1) H 01/29/18 17:11 ABG pH 7.28 pH Units (7.32-7.45) L 02/13/18 05:28 ABG pCO2 97 mmHg (35-45) H* 02/13/18 05:28 ABG pO2 84 mmHg (85-104) L 02/13/18 05:28 ABG HCO3 46 mEq/L (21-27) H 02/13/18 05:28 ABG Total CO2 49 mEq/L (20-26) H 02/13/18 05:28 ABG O2 Saturation 94 % (95-98) L 02/13/18 05:28 ABG Base Excess 16 mEq/L (-2 to 3) H 02/13/18 05:28 Carbon Dioxide 39 mEq/L (23-29) H 02/13/18 05:56 BUN 41 mg/dL (6-20) H 02/13/18 05:56 Est GFR (Non-Af Amer) 57 (> 60) L 02/13/18 05:56 BUN/Creatinine Ratio 41 (6-26) H 02/13/18 05:56 Glucose 113 mg/dL (70-105) H 02/13/18 05:56 Calculated Osmolality 305 (280-300) H 02/13/18 05:56 Calcium 8.4 mg/dL (8.6-10.3) L 02/13/18 05:56 Venous Ioniz Calcium 0.99 mmol/L (1.15-1.35) L 02/13/18 06:06 Total Bilirubin 0.2 mg/dL (0.3-1.0) L 02/13/18 05:56 Direct Bilirubin 0.3 mg/dL (0.0-0.2) H 01/29/18 17:11 AST 11 Units/L (13-39) L 02/13/18 05:56 ALT 4 Units/L (7-52) L 02/13/18 05:56 C-Reactive Protein 140 mg/L (Less than 10) H 01/29/18 17:11 B-Natriuretic Peptide 206 pg/mL (Less than 100) H 02/12/18 17:27 Albumin 2.6 g/dL (3.5-5.7) L 02/13/18 05:56 Globulin 3.9 g/dL (2.4-3.5) H 02/13/18 05:56 Albumin/Globulin Ratio 0.7 (1.1-2.2) L 02/13/18 05:56 Lipase 84 Units/L (11-82) H 01/29/18 17:11 Urine Protein 30 mg/dL (Neg-Trace) H 02/12/18 14:11 Ur Leukocyte Esterase Moderate (Negative) H 02/12/18 14:11 Urine Microscopic WBC 50-100 per hpf (0-3) H 02/12/18 14:11 Ur Squamous Epith Cells Many per lpf (None-Few) H 02/12/18 14:11 Urine Yeast Few per hpf (None Seen) H 02/12/18 14:11 Ur Culture Indicated? NO. (NO) A 02/12/18 14:11 Stool Occult Blood Positive (Negative) A 02/07/18 04:28 Vancomycin Trough 12 mcg/mL (5-10) H 02/03/18 05:28 - Microbiology Findings Microbiology Findings: Microbiology, Last 48 Hours 02/12/18 09:36 Blood Culture - Preliminary Peripheral Venipuncture Culture is incubating and being continuously monitored for growth. Final report to follow. 02/12/18 09:30 Blood Culture - Preliminary Peripheral Venipuncture Culture is incubating and being continuously monitored for growth. Final report to follow. - Clinical Findings Intake & Output: Intake & Output 02/12/18 02/12/18 02/13/18 15:59 23:59 07:59 Intake Total 100 / 100 100 / 100 100 / 100 Output Total 1000 / 1000 1600 / 1600 925 / 925 Balance -900 / -900 -1500 / -1500 -825 / -825 Weight 125.5 kg - Attending Attestation I examined this patient and my medical decision-making was reviewed with the Resident Physician. I agree with the documented findings, disposition and treatment plan as described except to the extent set forth below. We independently had [id number] contact with the patient Patient seen and examined at bedside Labs, radiology, chart personally reviewed. Management was reviewed during multidisciplinary critical care rounds. BROTH SETTER: The patient is much more awake and alert today able to follow commands Pulm: Acute on chronic hypoxic hypercapnic respiratory failure which is a manifestation of hydrostatic pulmonary edema complicated by obesity hypoventilation syndrome obstructive sleep apnea and suspected COPD. Cannot completely this will possibly underlying pneumonia however I think that this is less likely my impression is that the etiology of this is most likely related to VQ mismatching from atelectasis complicated by hydrostatic pulmonary edema she is benefiting from noninvasive ventilation which were she will require most the day today we will continue diuresis get her out of bed to chair to help recruit lung and decrease V/Q mismatch Cards: Hemodynamically stable continue to monitor on telemetry continue diuresis GI: PPi and Sucralfate given for history of gastric ulcer Nutrition: Nothing by mouth for now Renal: UOP Monitored, Cont to Trend sCr and monitor Electrolytes. ID: She is being treated for lower extremity wound ulcer being followed by infectious disease for this continue antimicrobials further recommendations I do not feel that further escalation to cover for pneumonia is necessary at this time sugars remained afebrile for approximately the last 24 hours Heme/Onc: She has chronic anemia which is stable transfusion for goal hemoglobin greater than 7 less evidence of active bleeding which she does not have start chemical DVT prophylaxis Endo: Glucose Monitored Integ/MSK: Skin Care per routine ICU Nursing Protocol to prevent ulcers. Lines: All lines examined without evidence of infection : Dispo: Monitor in ICU for NIV needs CODE: Full Code.
[2018-02-13] MEDS ORDERED: Ondansetron 4 MG/2 ML VIAL IVP PRN (01:08)
[2018-02-13] MEDS: Piperacillin/Tazobactam 3.375 GM in 0.9 % Sodium Chloride Mini Bag 100 ML IVPB SCH ×3 (04:12→20:41)
[2018-02-13 05:37] LABS: ABG Base Excess 16 mEq/L (-2 to 3); ABG HCO3 46 mEq/L (21-27); ABG Oxygen Saturation 94 % (95-98); ABG PCO2 97 mmHg (35-45); ABG PH 7.28 pH Units (7.32-7.45); ABG PO2 84 mmHg (85-104); ABG TCO2 49 mEq/L (20-26)
[2018-02-13 06:10] LABS: VBG Ionized Calcium 0.99 mmol/L (1.15-1.35)
[2018-02-13 06:28] LABS: Alanine Aminotransferase 4 Units/L (7-52); Albumin 2.6 g/dL (3.5-5.7); Albumin/Globulin Ratio 0.7 (1.1-2.2); Alkaline Phosphatase 61 Units/L (34-104); Aspartate Amino Transferase 11 Units/L (13-39); BUN/Creatinine Ratio 41 (6-26); Bilirubin,Total 0.2 mg/dL (0.3-1.0); Blood Urea Nitrogen 41 mg/dL (6-20); Calcium 8.4 mg/dL (8.6-10.3); Carbon Dioxide 39 mEq/L (23-29); Chloride 100 mEq/L (98-107); Globulin 3.9 g/dL (2.4-3.5); Glucose 113 mg/dL (70-105); Osmolality,Calculated 305 (280-300); Potassium 4.3 mEq/L (3.5-5.1); Sodium 142 mEq/L (136-145); Total Protein 6.5 g/dL (6.4-8.9); eGFR For Non-African Americans 57 (> 60)
[2018-02-13 07:00] LABS: Basophils # 0.1 K/mcL (0.0-0.2); Basophils % 0.7 %; Eosinophils # 0.2 K/mcL (0.0-0.6); Eosinophils % 1.6 %; Hematocrit 26.3 % (35.3-44.9); Hemoglobin 7.8 g/dL (11.5-15.4); Immature Granulocytes % 0.6 % (0-4); Lymphocytes # 2.1 K/mcL (0.6-4.6); Lymphocytes % 15.7 %; Mean Corpuscular HGB Conc 29.7 g/dL (31.6-35.5); Mean Corpuscular Hemoglobin 27.3 pg (28.0-33.3); Mean Platelet Volume 12.1 fL (9.4-12.4); Monocytes # 0.6 K/mcL (0.0-1.3); Monocytes % 4.8 %; Neutrophils # 10.1 K/mcL (1.6-8.9); Platelet Count 287 K/mcL (140-400); Red Blood Count 2.86 M/mcL (3.82-4.97); Red Cell Distribution Width 19.3 % (11.5-14.5); Segmented Neutrophils % 76.6 %
[2018-02-13] MEDS: Sucralfate 1 GM TABLET PO SCH ×2 (09:31→18:10)
[2018-02-13] MEDS: Diltiazem CD (24hr) 120 MG CAPSULE PO SCH (09:31)
[2018-02-13] MEDS: tiZANidine 4 MG TABLET PO SCH ×3 (09:31→20:43)
[2018-02-13] MEDS: Thiamine (B-1) 100 MG TABLET PO SCH (09:32)
[2018-02-13] MEDS: Pregabalin 75 MG CAPSULE PO SCH (09:32)
[2018-02-13] MEDS: Linezolid 600 MG TABLET PO SCH ×2 (09:32→20:42)
[2018-02-13] MEDS: Lactobacillus 1 EACH CAP.SPRINK PO SCH ×2 (09:32→20:43)
[2018-02-13] MEDS: Furosemide 40 MG/4 ML VIAL IVP SCH (09:34)
[2018-02-13] MEDS: Insulin LISPRO 300 UNITS/3 ML VIAL SQ SCH ×4 (09:34→20:45)
--- NOTE | 2018-02-13 12:44 | Podiatry Progress Note ---
Date of Encounter: 02/13/18 Time of Encounter: 11:40 - Assessment and Plan (1) Chronic venous hypertension w/ulcer and inflammation involv both sides Current Visit: No Status: Chronic (2) Diabetes mellitus Current Visit: No Status: Chronic Qualifiers: Diabetes mellitus type: type 2 Diabetes mellitus nursing home insulin use: with terminal gauger use Diabetes mellitus complication status: with skin complications Diabetes mellitus complication detail: with other skin complication Qualified Code(s): E11.628 - Type 2 diabetes mellitus with other skin complications; Z79.4 - [facility] (current) use of insulin (3) Ulcer of right heel Current Visit: Yes Status: Acute S/p incision and drainage and debridement of all necrotic tissue right foot/ heel, application of PuraPly wound matrix with graft jacket and wound VAC right heel on 02/01/[address] Stoll. Overall significant improvement in erythema and swelling to BLE. Graft in place to right heel with wound vac. Wound cultures of right leg from 01/18/18 isolated MRSA. Surgical biopsy culture from 02/01/18- Klebsiella pneumoniae MDRO, proteus penneri, Vancomycin Enterococcus faecium Wound culture right foot 02/01/18- Klebsiella pneumoniae MDRO, proteus penneri, Vancomycin Enterococcus faecium Lower Extremity CT 01/29/18 16:56 IMPRESSION: 1. Re- demonstration of extensive subcutaneous edema skin thickening of the bilateral lower extremities similar to previous exam. Findings may reflect chronic venous stasis/lymph edema versus cellulitis. No organized drainable fluid collection identified. 2. Ulceration identified along the plantar aspect of the right foot at the level of the calcaneus which is new compared with previous exam. 3. Re- demonstration of remote fracture of the left 5th metatarsal base with no evidence for osseous bridging or callus formation. Plan Wound vac changed today. Continue wound vac dressing changes as ordered. Antibiotics per Infectious Disease. Plan for patient to be discharged to [facility]CF, social work on board. Follow up with Dr. Stoll in wound care one week after discharge from hospital. NWB to right foot. Qualifiers: Non-pressure ulcer stage: unspecified non-pressure ulcer stage Qualified Code(s): L97.419 - Non-pressure chronic ulcer of right heel and midfoot with unspecified severity (4) Venous stasis dermatitis of both lower extremities Current Visit: Yes Status: Chronic Overall significant improvement to stasis dermatitis of BLE. Plan: Keep BLE elevated. Continue wound care as ordered. Subjective Interval history: Patient is s/p incision and drainage and debridement of all necrotic tissue right foot/heel, application of PuraPly wound matrix with graft jacket and wound VAC right heel on 02/01/[address] Stoll. Patient is sitting up in bed. Patient has a wound VAC intact to the right heel. Patient denies pain to feet currently. Patient was transferred to the ICU last night and placed on BIPAP for altered mental status and difficulty breathing. Patient is sitting up in bed alert and oriented x3 connected to a Nasal Cannula. No c/o fever or chills. Objective - Vital Signs Vital Signs: Vital Signs Temp Pulse Resp BP Pulse Ox 02/13/18 09:30 89 21 151/71 98 02/13/18 08:30 87 20 155/61 97 02/13/18 08:25 98.6 F 02/13/18 07:26 81 20 166/73 100 02/13/18 06:00 75 16 137/61 100 02/13/18 05:32 12 162/64 97 02/13/18 05:00 88 13 159/64 95 02/13/18 04:00 97.9 F 90 12 160/67 95 02/13/18 03:56 87 02/13/18 03:00 85 20 148/66 98 02/13/18 02:00 88 13 155/65 94 02/13/18 01:00 82 13 146/71 94 02/13/18 00:00 97.8 F 76 16 131/65 99 02/12/18 23:00 77 18 141/65 99 02/12/18 22:00 111 12 133/62 98 02/12/18 21:00 108 12 125/57 97 02/12/18 20:03 109 02/12/18 20:00 97.5 F L 109 19 108/94 99 02/12/18 19:58 34 108/94 100 02/12/18 19:00 109 15 120/71 100 02/12/18 18:32 110 21 106/76 99 02/12/18 17:30 115 02/12/18 17:10 99.1 F 115 14 112/61 99 02/12/18 15:17 98.9 F 124 18 157/84 97 02/12/18 14:35 123 24 157/78 97 Intake and Output 02/12/18 02/13/18 02/13/18 23:59 07:59 15:59 Intake Total 100 / 100 100 / 100 100 / 100 Output Total 1600 / 1600 925 / 925 225 / 225 Balance -1500 / -1500 -825 / -825 -125 / -125 Intake: IV Fluids 100 / 100 100 / 100 100 / 100 Zosyn 3.375 GM In 0.9 % Sodium 100 / 100 100 / 100 100 / 100 Chloride (Mini-Bag +) 100 ML @ 25 mls/hr IVPB Q8H [facility] Rx#: [id number] Output: Catheter 1600 / 1600 900 / 900 225 / 225 Wound Drainage Right Heel Other: Stool Size Smear Stool Consistency soft Stool Color Brown Green Weight 125.5 kg Blood Glucose* 97 121 Patient Weight 02/13/18 23:59 Weight 125.5 kg - Exam Exam: General appearance: alert awake oriented X 3. Calm and pleasant, no acute distress.. Vascular: Unable to palpate pedal pulses due to edema, No evidence of cyanosis, pallor or rubor, Edema graded at 2+/4, Skin temperature warm, Homans Sign negative, capillary refill time is immediate to digits.. Integument: Skin with decreased turgor, decreased subcutaneous tissue, skin thin and shiny with trophic changes associated with comorbidities as described in history. Light erythema to BLE, skin is warm, no blisters, no ulcers, no lymphangitis, clearing of erythema to bilateral ankles and knees, dried scab noted to the medial aspect of toe #1 left foot. S/p: Right foot: wound graft in place to plantar aspect of right heel, light periwound erythema. Wound measures 6 cm in length x 6 cm in width. No streaking , no pus, no odor, 50 mls of serous drainage observed to canister. - Lab Result Diagrams: 02/13/18 05:56 02/13/18 05:56 Labs: Abnormal lab results WBC 13.2 K/mcL (4.3-11.1) H 02/13/18 05:56 RBC 2.86 M/mcL (3.82-4.97) L 02/13/18 05:56 Hgb 7.8 g/dL (11.5-15.4) L 02/13/18 05:56 Hct 26.3 % (35.3-44.9) L 02/13/18 05:56 MCH 27.3 pg (28.0-33.3) L 02/13/18 05:56 MCHC 29.7 g/dL (31.6-35.5) L 02/13/18 05:56 RDW 19.3 % (11.5-14.5) H 02/13/18 05:56 Neutrophils # 10.1 K/mcL (1.6-8.9) H 02/13/18 05:56 Nucleated RBCs/100 WBC 0.2 /100 WBC (0) H 02/10/18 00:51 Immature Plt Fraction 7.1 % (1.1-6.1) H 02/09/18 05:40 ESR >= 130 mm/hr (0-15) H 01/29/18 17:11 PT 13.8 Seconds (9.4-12.1) H 01/29/18 17:11 ABG pH 7.28 pH Units (7.32-7.45) L 02/13/18 05:28 ABG pCO2 97 mmHg (35-45) H* 02/13/18 05:28 ABG pO2 84 mmHg (85-104) L 02/13/18 05:28 ABG HCO3 46 mEq/L (21-27) H 02/13/18 05:28 ABG Total CO2 49 mEq/L (20-26) H 02/13/18 05:28 ABG O2 Saturation 94 % (95-98) L 02/13/18 05:28 ABG Base Excess 16 mEq/L (-2 to 3) H 02/13/18 05:28 Carbon Dioxide 39 mEq/L (23-29) H 02/13/18 05:56 BUN 41 mg/dL (6-20) H 02/13/18 05:56 Est GFR (Non-Af Amer) 57 (> 60) L 02/13/18 05:56 BUN/Creatinine Ratio 41 (6-26) H 02/13/18 05:56 Glucose 113 mg/dL (70-105) H 02/13/18 05:56 POC Glucose 122 mg/dL (70-99) H 02/13/18 11:10 Calculated Osmolality 305 (280-300) H 02/13/18 05:56 Calcium 8.4 mg/dL (8.6-10.3) L 02/13/18 05:56 Venous Ioniz Calcium 0.99 mmol/L (1.15-1.35) L 02/13/18 06:06 Total Bilirubin 0.2 mg/dL (0.3-1.0) L 02/13/18 05:56 Direct Bilirubin 0.3 mg/dL (0.0-0.2) H 01/29/18 17:11 AST 11 Units/L (13-39) L 02/13/18 05:56 ALT 4 Units/L (7-52) L 02/13/18 05:56 C-Reactive Protein 140 mg/L (Less than 10) H 01/29/18 17:11 B-Natriuretic Peptide 206 pg/mL (Less than 100) H 02/12/18 17:27 Albumin 2.6 g/dL (3.5-5.7) L 02/13/18 05:56 Globulin 3.9 g/dL (2.4-3.5) H 02/13/18 05:56 Albumin/Globulin Ratio 0.7 (1.1-2.2) L 02/13/18 05:56 Lipase 84 Units/L (11-82) H 01/29/18 17:11 Urine Protein 30 mg/dL (Neg-Trace) H 02/12/18 14:11 Ur Leukocyte Esterase Moderate (Negative) H 02/12/18 14:11 Urine Microscopic WBC 50-100 per hpf (0-3) H 02/12/18 14:11 Ur Squamous Epith Cells Many per lpf (None-Few) H 02/12/18 14:11 Urine Yeast Few per hpf (None Seen) H 02/12/18 14:11 Ur Culture Indicated? NO. (NO) A 02/12/18 14:11 Stool Occult Blood Positive (Negative) A 02/07/18 04:28 Vancomycin Trough 12 mcg/mL (5-10) H 02/03/18 05:28 Microbiology, Last 48 Hours 02/12/18 09:36 Blood Culture - Preliminary Peripheral Venipuncture Culture is incubating and being continuously monitored for growth. Final report to follow. 02/12/18 09:30 Blood Culture - Preliminary Peripheral Venipuncture Culture is incubating and being continuously monitored for growth. Final report to follow. - VTE Documentation of Mechanical Device: Intermittent pneumatic compression device Consult Discharge Plan - Plan Referrals: Jc Tsai MD [Primary Care Provider] -
--- NOTE | 2018-02-13 13:06 | Infectious Disease Progress No ---
Date of Encounter: 02/13/18 Time of Encounter: 13:09 - Assessment and Plan (1) Sepsis Current Visit: No Status: Resolved Met 3/4 SIRS criteria, with leukocytosis, tachycardia, tachypnea - Known source of infection with multifocal pneumonia, UTI, and cellulitis - Home health nurse reported a fever of 102 before admission - Patient was given IV fluid resuscitation in the emergency department - She is experiencing an increased demand and oxygen - Blood cultures from and are currently pending - Currently on IV Zosyn and PO Zyvox; will discontinue the zosyn. Patient has completed 2 weeks Qualifiers: Sepsis type: sepsis due to unspecified organism Qualified Code(s): A41.9 - Sepsis, unspecified organism (2) Ulcer of right heel Current Visit: Yes Status: Acute - Patient has necrotic right heel ulcer and bilateral lower extremity cellulitis - Normally sees edging supervisor Dr. 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 - We recommend continuation of zosyn for 2-4 weeks; patient will also need agressive debridement and wound care - PO Zyvox due to +VRE wound CX Qualifiers: Non-pressure ulcer stage: unspecified non-pressure ulcer stage Qualified Code(s): L97.419 - Non-pressure chronic ulcer of right heel and midfoot with unspecified severity (3) UTI (urinary tract infection) Current Visit: No Status: Resolved Patient was recently discharged from hospital on 01/23; during hospitalization, patient was discharged home to complete a course of doxycycline fosfomycin until 01/30 for UTI with ESBL Klebsiella - UA demonstrates large amount of leukocyte esterase, WBC TNTC - Urine culture from 01/30 is negative Qualifiers: Urinary tract infection type: site unspecified Hematuria presence: without hematuria Qualified Code(s): N39.0 - Urinary tract infection, site not specified (4) HAP (hospital-acquired pneumonia) Current Visit: Yes Status: Resolved - Patient was recently discharged on 01/23 - On arrival, SPO2 was 84% on room air; heart rate in the 130s - Chest x-ray demonstrated increasing pulmonary edema with worsening basilar atelectasis - CTA demonstrated multifocal airspace consolidation throughout both lungs; most likely reflective of multifocal pneumonia. - Continue bronchodilators and incentive spirometry - Resp. infection panel negative - Legionella and strep antigen both negative - Patient continues to experience increasing oxygen demand (5) Venous stasis dermatitis of both lower extremities Current Visit: Yes Status: Chronic - CT of the legs demonstrated extensive subcutaneous edema skin thickening of the bilateral lower extremities - Findings are likely reflective of chronic venous stasis/lymphedema versus cellulitis - No organized drainable fluid collection has been identified - Continue wound care (6) Diastolic heart failure Current Visit: Yes Status: Chronic - Acute on chronic diastolic CHF exacerbation - Presented with shortness of breath, pedal edema, rales on exam, and tachycardia with heart rate in the 130s - CXR revealed increasing pulmonary edema with worsening bibasilar atelectasis. - Echo 11/11/17 revealed LVEF 55-60%, mild concentric LVH - Management per primary team Qualifiers: Heart failure chronicity: chronic Qualified Code(s): I50.32 - Chronic diastolic (congestive) heart failure (7) Type 2 diabetes mellitus Current Visit: Yes Status: Chronic - HGB a1c level 11% on 09/20/17 - Continue basal and SSI - Monitor accu-checks Qualifiers: Diabetes mellitus watermelon harvesting supervisor insulin use: with watermelon harvesting supervisor use Diabetes mellitus complication status: with skin complications Diabetes mellitus complication detail: with foot ulcer Qualified Code(s): E11.621 - Type 2 diabetes mellitus with foot ulcer; L97.509 - Non-pressure chronic ulcer of other part of unspecified foot with unspecified severity; 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 - Follow-up the outpatient setting (9) DOROTHEA (acute kidney injury) Current Visit: Yes Status: Acute Resolved - Subjective Interval history: Patient was seen and examined at bedside; currently on BiPAP. Patient is lethargic; unable to answer any questions at this time. Accompanied by at bedside. Patient does not appear to be in distress at this time. Infect Dis PN-Objective Data - Labs CBC & Chem 7: 02/14/18 14:39 02/13/18 16:56 Labs: Laboratory Results - last 24 hr 02/12/18 02/12/18 02/12/18 14:11 16:28 16:39 WBC RBC Hgb Hct MCV MCH MCHC RDW Plt Count MPV Immature Gran % Seg Neutrophils % Lymphocytes % Monocytes % Eosinophils % Basophils % Neutrophils # Lymphocytes # Monocytes # Eosinophils # Basophils # Sample Site L Radial ABG pH 7.25 L ABG pCO2 102 H* ABG pO2 97 ABG HCO3 45 H ABG Total CO2 48 H ABG O2 Saturation 95 ABG Base Excess 15 H Eben Test Positive Respiration Rate O2 Delivery Device BiPAP Inspired O2 50.0 PEEP Pressure Support Sodium Potassium Chloride Carbon Dioxide BUN Creatinine Est GFR ( Amer) Est GFR (Non-Af Amer) BUN/Creatinine Ratio Glucose POC Glucose 91 Calculated Osmolality Calcium Venous Ioniz Calcium Phosphorus Magnesium Total Bilirubin AST ALT Alkaline Phosphatase Troponin I B-Natriuretic Peptide Serum Total Protein Albumin Globulin Albumin/Globulin Ratio Urine Color Yellow Urine Clarity Clear Urine pH 6.0 Ur Specific [place] 1.018 Urine Protein 30 H Urine Glucose (UA) Normal Urine Ketones Negative Urine Blood Negative Urine Nitrite Negative Urine Bilirubin Negative Urine Urobilinogen Normal Ur Leukocyte Esterase Moderate H Urine Microscopic RBC 0-3 Urine Microscopic WBC 50-100 H Ur Squamous Epith Cells Many H Urine Bacteria None Seen Hyaline Casts None Seen Urine Yeast Few H Ur Culture Indicated? NO. A 02/12/18 02/12/18 02/12/18 17:22 17:27 17:27 WBC 11.9 H RBC 3.05 L Hgb 8.2 L Hct 27.8 L MCV 91.1 MCH 26.9 L MCHC 29.5 L RDW 19.6 H Plt Count 270 MPV 11.8 Immature Gran % 0.6 Seg Neutrophils % 75.3 Lymphocytes % 17.3 Monocytes % 5.3 Eosinophils % 0.9 Basophils % 0.6 Neutrophils # 9.0 H Lymphocytes # 2.1 Monocytes # 0.6 Eosinophils # 0.1 Basophils # 0.1 Sample Site ABG pH ABG pCO2 ABG pO2 ABG HCO3 ABG Total CO2 ABG O2 Saturation ABG Base Excess Eben Test Respiration Rate O2 Delivery Device Inspired O2 PEEP Pressure Support Sodium Potassium Chloride Carbon Dioxide BUN Creatinine Est GFR ( Amer) Est GFR (Non-Af Amer) BUN/Creatinine Ratio Glucose POC Glucose 93 Calculated Osmolality Calcium Venous Ioniz Calcium Phosphorus 4.3 Magnesium 2.0 Total Bilirubin AST ALT Alkaline Phosphatase Troponin I B-Natriuretic Peptide Serum Total Protein Albumin Globulin Albumin/Globulin Ratio Urine Color Urine Clarity Urine pH Ur Specific [place] Urine Protein Urine Glucose (UA) Urine Ketones Urine Blood Urine Nitrite Urine Bilirubin Urine Urobilinogen Ur Leukocyte Esterase Urine Microscopic RBC Urine Microscopic WBC Ur Squamous Epith Cells Urine Bacteria Hyaline Casts Urine Yeast Ur Culture Indicated? 02/12/18 02/12/18 02/12/18 17:27 17:27 17:30 WBC 12.0 H RBC 3.05 L Hgb 8.1 L Hct 27.8 L MCV 91.1 MCH 26.6 L MCHC 29.1 L RDW 19.7 H Plt Count 283 MPV 11.4 Immature Gran % 0.7 Seg Neutrophils % 75.4 Lymphocytes % 16.9 Monocytes % 5.3 Eosinophils % 1.0 Basophils % 0.7 Neutrophils # 9.1 H Lymphocytes # 2.0 Monocytes # 0.6 Eosinophils # 0.1 Basophils # 0.1 Sample Site ABG pH ABG pCO2 ABG pO2 ABG HCO3 ABG Total CO2 ABG O2 Saturation ABG Base Excess Eben Test Respiration Rate O2 Delivery Device Inspired O2 PEEP Pressure Support Sodium 142 Potassium 4.0 Chloride 100 Carbon Dioxide 38 H BUN 33 H Creatinine 1.06 Est GFR ( Amer) > 60 Est GFR (Non-Af Amer) 53 L BUN/Creatinine Ratio 31 H Glucose 93 POC Glucose Calculated Osmolality 301 H Calcium 8.6 Venous Ioniz Calcium Phosphorus Magnesium Total Bilirubin 0.3 AST 10 L ALT 5 L Alkaline Phosphatase 67 Troponin I < 0.03 B-Natriuretic Peptide 206 H Serum Total Protein 6.8 Albumin 2.5 L Globulin 4.3 H Albumin/Globulin Ratio 0.6 L Urine Color Urine Clarity Urine pH Ur Specific [place] Urine Protein Urine Glucose (UA) Urine Ketones Urine Blood Urine Nitrite Urine Bilirubin Urine Urobilinogen Ur Leukocyte Esterase Urine Microscopic RBC Urine Microscopic WBC Ur Squamous Epith Cells Urine Bacteria Hyaline Casts Urine Yeast Ur Culture Indicated? 02/12/18 02/12/18 02/12/18 17:30 18:49 20:15 WBC RBC Hgb Hct MCV MCH MCHC RDW Plt Count MPV Immature Gran % Seg Neutrophils % Lymphocytes % Monocytes % Eosinophils % Basophils % Neutrophils # Lymphocytes # Monocytes # Eosinophils # Basophils # Sample Site R Radial ABG pH 7.28 L ABG pCO2 95 H* ABG pO2 114 H ABG HCO3 44 H ABG Total CO2 47 H ABG O2 Saturation 97 ABG Base Excess 15 H Eben Test Positive Respiration Rate 12 O2 Delivery Device BiPAP Inspired O2 50.0 PEEP 8 Pressure Support 20 Sodium 143 Potassium 4.0 Chloride 100 Carbon Dioxide 39 H BUN 33 H Creatinine 1.03 Est GFR ( Amer) > 60 Est GFR (Non-Af Amer) 55 L BUN/Creatinine Ratio 32 H Glucose 93 POC Glucose 97 Calculated Osmolality 303 H Calcium 8.6 Venous Ioniz Calcium Phosphorus Magnesium Total Bilirubin AST ALT Alkaline Phosphatase Troponin I B-Natriuretic Peptide Serum Total Protein Albumin Globulin Albumin/Globulin Ratio Urine Color Urine Clarity Urine pH Ur Specific [place] Urine Protein Urine Glucose (UA) Urine Ketones Urine Blood Urine Nitrite Urine Bilirubin Urine Urobilinogen Ur Leukocyte Esterase Urine Microscopic RBC Urine Microscopic WBC Ur Squamous Epith Cells Urine Bacteria Hyaline Casts Urine Yeast Ur Culture Indicated? 02/13/18 02/13/18 02/13/18 05:28 05:56 05:56 WBC 13.2 H RBC 2.86 L Hgb 7.8 L Hct 26.3 L MCV 92.0 MCH 27.3 L MCHC 29.7 L RDW 19.3 H Plt Count 287 MPV 12.1 Immature Gran % 0.6 Seg Neutrophils % 76.6 Lymphocytes % 15.7 Monocytes % 4.8 Eosinophils % 1.6 Basophils % 0.7 Neutrophils # 10.1 H Lymphocytes # 2.1 Monocytes # 0.6 Eosinophils # 0.2 Basophils # 0.1 Sample Site R Radial ABG pH 7.28 L ABG pCO2 97 H* ABG pO2 84 L ABG HCO3 46 H ABG Total CO2 49 H ABG O2 Saturation 94 L ABG Base Excess 16 H Eben Test N/A Respiration Rate O2 Delivery Device Cannula Inspired O2 34.0 PEEP Pressure Support Sodium 142 Potassium 4.3 Chloride 100 Carbon Dioxide 39 H BUN 41 H Creatinine 1.00 Est GFR ( Amer) > 60 Est GFR (Non-Af Amer) 57 L BUN/Creatinine Ratio 41 H Glucose 113 H POC Glucose Calculated Osmolality 305 H Calcium 8.4 L Venous Ioniz Calcium Phosphorus Magnesium Total Bilirubin 0.2 L AST 11 L ALT 4 L Alkaline Phosphatase 61 Troponin I B-Natriuretic Peptide Serum Total Protein 6.5 Albumin 2.6 L Globulin 3.9 H Albumin/Globulin Ratio 0.7 L Urine Color Urine Clarity Urine pH Ur Specific [place] Urine Protein Urine Glucose (UA) Urine Ketones Urine Blood Urine Nitrite Urine Bilirubin Urine Urobilinogen Ur Leukocyte Esterase Urine Microscopic RBC Urine Microscopic WBC Ur Squamous Epith Cells Urine Bacteria Hyaline Casts Urine Yeast Ur Culture Indicated? 02/13/18 02/13/18 02/13/18 06:06 07:48 11:10 WBC RBC Hgb Hct MCV MCH MCHC RDW Plt Count MPV Immature Gran % Seg Neutrophils % Lymphocytes % Monocytes % Eosinophils % Basophils % Neutrophils # Lymphocytes # Monocytes # Eosinophils # Basophils # Sample Site ABG pH ABG pCO2 ABG pO2 ABG HCO3 ABG Total CO2 ABG O2 Saturation ABG Base Excess Eben Test Respiration Rate O2 Delivery Device Inspired O2 PEEP Pressure Support Sodium Potassium Chloride Carbon Dioxide BUN Creatinine Est GFR ( Amer) Est GFR (Non-Af Amer) BUN/Creatinine Ratio Glucose POC Glucose 121 H 122 H Calculated Osmolality Calcium Venous Ioniz Calcium 0.99 L Phosphorus Magnesium Total Bilirubin AST ALT Alkaline Phosphatase Troponin I B-Natriuretic Peptide Serum Total Protein Albumin Globulin Albumin/Globulin Ratio Urine Color Urine Clarity Urine pH Ur Specific [place] Urine Protein Urine Glucose (UA) Urine Ketones Urine Blood Urine Nitrite Urine Bilirubin Urine Urobilinogen Ur Leukocyte Esterase Urine Microscopic RBC Urine Microscopic WBC Ur Squamous Epith Cells Urine Bacteria Hyaline Casts Urine Yeast Ur Culture Indicated? Cultures: Cultures 02/12/18 09:36 Blood Culture - Preliminary Peripheral Venipuncture Culture is incubating and being continuously monitored for growth. Final report to follow. 02/12/18 09:30 Blood Culture - Preliminary Peripheral Venipuncture Culture is incubating and being continuously monitored for growth. Final report to follow. 02/08/18 17:33 Blood Culture - Preliminary Peripheral Venipuncture Culture is incubating and being continuously monitored for growth. Final report to follow. 02/08/18 17:33 Blood Culture - Preliminary Peripheral Venipuncture Culture is incubating and being continuously monitored for growth. Final report to follow. 02/01/18 10:50 Wound Culture - Final Right Foot Klebsiella pneumoniae MDRO Proteus penneri Vancomycin Resistant Enterococcus faecium 02/01/18 11:30 Surgical Biopsy Culture - Final Right Foot Klebsiella pneumoniae MDRO Proteus penneri Vancomycin Resistant Enterococcus faecium 02/01/18 11:30 Anaerobic Culture - Final Right Foot No anaerobes were recovered. Serology 02/12/18 02/07/18 02/07/18 Range/Units 14:11 04:28 04:28 Urine Color Yellow (Yellow) Urine Clarity Clear (Clear) Urine pH 6.0 (5.0-8.0) pH Units Ur Specific [place] 1.018 (1.010-1.025) Urine Protein 30 H (Neg-Trace) mg/dL Urine Glucose (UA) Normal (Normal) mg/dL Urine Ketones Negative (Negative) mg/dL Urine Blood Negative (Negative) Urine Nitrite Negative (Negative) Urine Bilirubin Negative (Negative) Urine Urobilinogen Normal (Normal) mg/dL Ur Leukocyte Esterase Moderate H (Negative) Urine Microscopic RBC 0-3 (0-3) per hpf Urine Microscopic WBC 50-100 H (0-3) per hpf Ur Squamous Epith Cells Many H (None-Few) per lpf Urine Bacteria None Seen (None-Few) per hpf Hyaline Casts None Seen (None-Few) per lpf Urine Yeast Few H (None Seen) per hpf Ur Culture Indicated? NO. A (NO) Stool Occult Blood Positive A (Negative) Stl C. cayetanensis PCR Not detected (Not detect) Stool Rotavirus A PCR Not detected (Not detect) Stl Adenov F 40/41 PCR Not detected (Not detect) Stool Astrovirus (PCR) Not detected (Not detect) Stool Campylobacter PCR Not detected (Not detect) Stl C. diff Tox A/B PCR Not detected (Not detect) Stool Cryptosporidium PCR Not detected (Not detect) Stl Sh Tox Pr E STEC PCR Not detected (Not detect) Stool E coli O157 PCR Not detected (Not detect) Stl Enterotoxigenic E PCR Not detected (Not detect) Stool EPEC (PCR) Not detected (Not detect) Stool EAEC (PCR) Not detected (Not detect) Stl E. histolytica PCR Not detected (Not detect) Stool Giardia Lamblia PCR Not detected (Not detect) Stool Salmonella PCR Not detected (Not detect) Stool Sapovirus (PCR) Not detected (Not detect) Stl P. shigelloides PCR Not detected (Not detect) Stl Shigella/EIEC PCR Not detected (Not detect) St Y.enterocolitica PCR Not detected (Not detect) Stool Vibrio (PCR) Not detected (Not detect) Stl Vibrio cholerae PCR Not detected (Not detect) Stl Norovirus GI/GII PCR Not detected (Not detect) Stl GI Panel (PCR) Com See below Chlamy pneumoniae PCR (Not Detect) Adenovirus (PCR) (Not Detect) B. pertussis DNA (PCR) (Not Detect) B.parapertussis DNA PCR (Not Detect) Coronavirus OC43 (PCR) (Not Detect) Coronavirus HKU1 (PCR) (Not Detect) Coronavirus 229E (PCR) (Not Detect) Coronavirus NL63 (PCR) (Not Detect) Human Metapneumovir PCR (Not Detect) Influenza A (H1) PCR (Not Detect) Influ A (H1N1/09) PCR (Not Detect) Influenza A (H3) PCR (Not Detect) Influenza A Untype (PCR) (Not Detect) Influenza Type B (PCR) (Not Detect) M.pneumoniae DNA (PCR) (Not Detect) Parainfluenza 1 (PCR) (Not Detect) Parainfluenza 2 (PCR) (Not Detect) Parainfluenza 3 (PCR) (Not Detect) Parainfluenza 4 (PCR) (Not Detect) RSV (PCR) (Not Detect) Entero/Rhino (PCR) (Not Detect) 01/30/18 Range/Units 18:41 Urine Color (Yellow) Urine Clarity (Clear) Urine pH (5.0-8.0) pH Units Ur Specific [place] (1.010-1.025) Urine Protein (Neg-Trace) mg/dL Urine Glucose (UA) (Normal) mg/dL Urine Ketones (Negative) mg/dL Urine Blood (Negative) Urine Nitrite (Negative) Urine Bilirubin (Negative) Urine Urobilinogen (Normal) mg/dL Ur Leukocyte Esterase (Negative) Urine Microscopic RBC (0-3) per hpf Urine Microscopic WBC (0-3) per hpf Ur Squamous Epith Cells (None-Few) per lpf Urine Bacteria (None-Few) per hpf Hyaline Casts (None-Few) per lpf Urine Yeast (None Seen) per hpf Ur Culture Indicated? (NO) Stool Occult Blood (Negative) Stl C. cayetanensis PCR (Not detect) Stool Rotavirus A PCR (Not detect) Stl Adenov F 40/41 PCR (Not detect) Stool Astrovirus (PCR) (Not detect) Stool Campylobacter PCR (Not detect) Stl C. diff Tox A/B PCR (Not detect) Stool Cryptosporidium PCR (Not detect) Stl Sh Tox Pr E STEC PCR (Not detect) Stool E coli O157 PCR (Not detect) Stl Enterotoxigenic E PCR (Not detect) Stool EPEC (PCR) (Not detect) Stool EAEC (PCR) (Not detect) Stl E. histolytica PCR (Not detect) Stool Giardia Lamblia PCR (Not detect) Stool Salmonella PCR (Not detect) Stool Sapovirus (PCR) (Not detect) Stl P. shigelloides PCR (Not detect) Stl Shigella/EIEC PCR (Not detect) St Y.enterocolitica PCR (Not detect) Stool Vibrio (PCR) (Not detect) Stl Vibrio cholerae PCR (Not detect) Stl Norovirus GI/GII PCR (Not detect) Stl GI Panel (PCR) Com Chlamy pneumoniae PCR Not Detected (Not Detect) Adenovirus (PCR) Not Detected (Not Detect) B. pertussis DNA (PCR) Not Detected (Not Detect) B.parapertussis DNA PCR Not Detected (Not Detect) Coronavirus OC43 (PCR) Not Detected (Not Detect) Coronavirus HKU1 (PCR) Not Detected (Not Detect) Coronavirus 229E (PCR) Not Detected (Not Detect) Coronavirus NL63 (PCR) Not Detected (Not Detect) Human Metapneumovir PCR Not Detected (Not Detect) Influenza A (H1) PCR Not Detected (Not Detect) Influ A (H1N1/09) PCR Not Detected (Not Detect) Influenza A (H3) PCR Not Detected (Not Detect) Influenza A Untype (PCR) Not Detected (Not Detect) Influenza Type B (PCR) Not Detected (Not Detect) M.pneumoniae DNA (PCR) Not Detected (Not Detect) Parainfluenza 1 (PCR) Not Detected (Not Detect) Parainfluenza 2 (PCR) Not Detected (Not Detect) Parainfluenza 3 (PCR) Not Detected (Not Detect) Parainfluenza 4 (PCR) Not Detected (Not Detect) RSV (PCR) Not Detected (Not Detect) Entero/Rhino (PCR) Not Detected (Not Detect) - Impressions Impressions Chest X-Ray 02/12/18 12:30 IMPRESSION: Moderate pulmonary vascular congestion. Small bilateral pleural effusions. Moderate left basilar atelectasis. Small right basilar atelectasis. Some improvement in the appearance of the chest. D/ / Hector Santos MD / Hector Santos MD Interpreting Provider: Hector Santos MD Chest CT 02/12/18 15:00 IMPRESSION: Interval development of small bilateral pleural effusions. Progressive consolidation of bilateral lower lobes, suggestive of atelectasis or pneumonia. Additional ground-glass opacity within the remainder of the lungs, for which atelectasis, pneumonitis, or edema are considerations. Atherosclerosis, including coronary artery calcification. Multinodular thyroid, measuring up to approximately 2.7 cm within the left thyroid lobe. In the nonacute setting, thyroid ultrasound is suggested for further characterization. D/ / Garrett Humphrey MD / Garrett Humphrey MD Interpreting Provider: Garrett Humphrey MD Exam - Constitutional Vitals: Temp Pulse Resp BP Pulse Ox 98.6 F 89 21 151/71 98 02/13/18 08:25 02/13/18 09:30 02/13/18 09:30 02/13/18 09:30 02/13/18 09:30 - Additional findings Additional findings: - Head Head exam: Present: atraumatic, normal inspection. Currently on BiPAP - Respiratory Respiratory exam: Present: wheezes, rhonchi. Absent: decreased breath sounds, tachypnea - Cardiovascular Cardiovascular exam: Present: RRR, +S1, +S2 - Extremities Exam Additional comments: Both lower extremities are currently wrapped. S/P debridement of R foot. - Psychiatric Psychiatric exam: Present: normal affect - Skin Skin exam: Present: rash - VTE Documentation of Mechanical Device: Intermittent pneumatic compression device Consult Discharge Plan - Plan Referrals: Jc Tsai MD [Primary Care Provider] - - Attending Attestation I examined this patient and my medical decision-making was reviewed with the Resident Physician. I agree with the documented findings, disposition and treatment plan as described except to the extent set forth below.
[2018-02-13] MEDS: *HR* Heparin 5,000 UNIT/ML VIAL SQ SCH ×2 (14:22→18:16)
[2018-02-13 14:51] LABS: VBG Ionized Calcium 1.07 mmol/L (1.15-1.35); VBG PH 7.39 pH Units (7.32-7.42)
[2018-02-13] MEDS ORDERED: Furosemide 40 MG/4 ML VIAL IVP ONE (17:05)
[2018-02-13 17:41] LABS: BUN/Creatinine Ratio 57 (6-26); Blood Urea Nitrogen 64 mg/dL (6-20); Calcium 8.3 mg/dL (8.6-10.3); Carbon Dioxide 39 mEq/L (23-29); Chloride 101 mEq/L (98-107); Glucose 156 mg/dL (70-105); Osmolality,Calculated 322 (280-300); Potassium 5.2 mEq/L (3.5-5.1); Sodium 145 mEq/L (136-145); eGFR For Non-African Americans 50 (> 60)
[2018-02-13] MEDS: Insulin DETEMIR 100 UNIT/ML X5UNITS SQ SCH (20:43)
[2018-02-13] MEDS: Latanoprost 2.5 ML BOTTLE BOTH EYES SCH (20:46)
[2018-02-14 04:21] LABS: Basophils # 0.1 K/mcL (0.0-0.2); Basophils % 0.6 %; Eosinophils # 0.1 K/mcL (0.0-0.6); Eosinophils % 0.3 %; Hematocrit 22.7 % (35.3-44.9); Hemoglobin 6.8 g/dL (11.5-15.4); Immature Granulocytes % 0.6 % (0-4); Lymphocytes # 4.6 K/mcL (0.6-4.6); Lymphocytes % 29.2 %; Mean Corpuscular Hemoglobin 26.6 pg (28.0-33.3); Mean Corpuscular Volume 88.7 fL (83.0-100.0); Mean Platelet Volume 12.3 fL (9.4-12.4); Monocytes % 6.3 %; Neutrophils # 9.9 K/mcL (1.6-8.9); Platelet Count 266 K/mcL (140-400); Red Blood Count 2.56 M/mcL (3.82-4.97); Red Cell Distribution Width 19.9 % (11.5-14.5)
[2018-02-14] MEDS: Piperacillin/Tazobactam 3.375 GM in 0.9 % Sodium Chloride Mini Bag 100 ML IVPB SCH (04:24)
[2018-02-14] MEDS: *HR* Heparin 5,000 UNIT/ML VIAL SQ SCH ×2 (04:32→19:23)
[2018-02-14 05:26] LABS: ABG Base Excess 14 mEq/L (-2 to 3); ABG HCO3 41 mEq/L (21-27); ABG Oxygen Saturation 95 % (95-98); ABG PCO2 66 mmHg (35-45); ABG PO2 79 mmHg (85-104); ABG TCO2 43 mEq/L (20-26); Blood Gas PEEP 6 cm H2O
--- NOTE | 2018-02-14 07:07 | Pulmonology Progress Note ---
Date of Encounter: 02/14/18 Time of Encounter: 07:07 Assessment and Plan (1) Acute on chronic respiratory failure with hypoxia and hypercapnia Current Visit: Yes Status: Acute This is improving and secondary to atelectasis complicated by hydrostatic pulmonary edema doubt underlying pneumonia. Would continue noninvasive ventilation at night and during the day we will during naps in general a total of 8-12 hours a day of noninvasive ventilation would benefit the patient out of bed to chair as clinically able/indicated and incentive spirometry to help mitigate the effects of VQ mismatching secondary to atelectasis Patient stable for transfer out of ICU to [facility] for ongoing care report called to the primary hospitalist service who accepted the patient in transfer (2) Foot ulcer Current Visit: Yes Status: Acute She is on antimicrobials with this management per primary team and the infectious disease service for antimicrobial selection Qualifiers: Laterality: right Non-pressure ulcer stage: limited to breakdown of skin Qualified Code(s): L97.511 - Non-pressure chronic ulcer of other part of right foot limited to breakdown of skin (3) Acute on chronic diastolic heart failure Current Visit: No Status: Acute She has benefited from aggressive diuresis over last 48 hours can likely back off on diuresis today metabolic panel pending to evaluate kidney function but she will likely need a daily diuretic scheduled likely would benefit from another 24-48 hours of IV diuretic with transition to by mouth based upon the kidney function and clinical course (4) REGINALD on CPAP Current Visit: Yes Status: Chronic The patient is on CPAP at home but will need to be transitioned to BiPAP because of chronic hypercarbia. I would recommend his qualification prior to discharge. Cervix could be 16/8 with FiO2 bleed to keep saturation greater than 9088% she will need outpatient follow-up with a polysomnogram on BiPAP for complete titration (5) Anemia Current Visit: Yes Status: Acute Slightly drop in H&H overnight unfortunately this coincided with starting the chemical DVT prophylaxis which we have held there is no overt evidence of bleeding but given her recent GI ulcers I am elected to just place her on SCDs satted we will transfuse 1 unit of PRBCs today which has a potential to worsening extrapulmonary edema this has to be followed closely she may need Lasix with subsequent to the transfusion Qualifiers: Anemia type: unspecified type Qualified Code(s): D64.9 - Anemia, unspecified Subjective Principal diagnosis: Acute on Chronic Respiratory Failure Interval history: Patient has done very well overnight remains hemodynamically stable slight drop in H&H without overt evidence of bleeding she says that she is feeling better choice to go "upstairs" a reference to being transferred out of the ICU Objective PUL Vital signs: Last Vital Signs Temp 98.7 F 02/14/18 04:41 Pulse 89 02/14/18 06:00 Resp 12 02/14/18 06:00 BP 121/57 02/14/18 06:00 Pulse Ox 100 02/14/18 06:00 General appearance: no acute distress, alert Eyes: nonicteric ENT: oropharynx moist Neck: supple Auscultation: bilateral: diminished breath sounds Cardiovascular: regular rate and rhythm Gastrointestinal: soft, non-tender Extremities: other (Right leg is wrapped for underlying ulceration. She has some scattered ulcers on the toes and eschars none of which appear to be getting worse or consistent with new or progressive infection she has chronic onychomycosis bilateral and most of her toes with thickened nailbeds) non-focal exam, pupils equal and round mood appropriate Results - Laboratory Findings CBC and BMP: 02/14/18 03:58 02/13/18 16:56 ABG ABG pH 7.40 pH Units (7.32-7.45) 02/14/18 05:22 ABG pCO2 66 mmHg (35-45) H 02/14/18 05:22 ABG pO2 79 mmHg (85-104) L 02/14/18 05:22 ABG O2 Saturation 95 % (95-98) 02/14/18 05:22 PT/INR, D-dimer PT 13.8 Seconds (9.4-12.1) H 01/29/18 17:11 Abnormal lab findings: Abnormal lab results WBC 15.8 K/mcL (4.3-11.1) H 02/14/18 03:58 RBC 2.56 M/mcL (3.82-4.97) L 02/14/18 03:58 Hgb 6.8 g/dL (11.5-15.4) L 02/14/18 03:58 Hct 22.7 % (35.3-44.9) L 02/14/18 03:58 MCH 26.6 pg (28.0-33.3) L 02/14/18 03:58 MCHC 30.0 g/dL (31.6-35.5) L 02/14/18 03:58 RDW 19.9 % (11.5-14.5) H 02/14/18 03:58 Neutrophils # 9.9 K/mcL (1.6-8.9) H 02/14/18 03:58 Nucleated RBCs/100 WBC 0.2 /100 WBC (0) H 02/10/18 00:51 Immature Plt Fraction 7.1 % (1.1-6.1) H 02/09/18 05:40 ESR >= 130 mm/hr (0-15) H 01/29/18 17:11 PT 13.8 Seconds (9.4-12.1) H 01/29/18 17:11 ABG pCO2 66 mmHg (35-45) H 02/14/18 05:22 ABG pO2 79 mmHg (85-104) L 02/14/18 05:22 ABG HCO3 41 mEq/L (21-27) H 02/14/18 05:22 ABG Total CO2 43 mEq/L (20-26) H 02/14/18 05:22 ABG Base Excess 14 mEq/L (-2 to 3) H 02/14/18 05:22 Potassium 5.2 mEq/L (3.5-5.1) H 02/13/18 16:56 Carbon Dioxide 39 mEq/L (23-29) H 02/13/18 16:56 BUN 64 mg/dL (6-20) H 02/13/18 16:56 Est GFR (Non-Af Amer) 50 (> 60) L 02/13/18 16:56 BUN/Creatinine Ratio 57 (6-26) H 02/13/18 16:56 Glucose 156 mg/dL (70-105) H 02/13/18 16:56 Calculated Osmolality 322 (280-300) H 02/13/18 16:56 Calcium 8.3 mg/dL (8.6-10.3) L 02/13/18 16:56 Venous Ioniz Calcium 1.07 mmol/L (1.15-1.35) L 02/13/18 14:48 Total Bilirubin 0.2 mg/dL (0.3-1.0) L 02/13/18 05:56 Direct Bilirubin 0.3 mg/dL (0.0-0.2) H 01/29/18 17:11 AST 11 Units/L (13-39) L 02/13/18 05:56 ALT 4 Units/L (7-52) L 02/13/18 05:56 C-Reactive Protein 140 mg/L (Less than 10) H 01/29/18 17:11 B-Natriuretic Peptide 206 pg/mL (Less than 100) H 02/12/18 17:27 Albumin 2.6 g/dL (3.5-5.7) L 02/13/18 05:56 Globulin 3.9 g/dL (2.4-3.5) H 02/13/18 05:56 Albumin/Globulin Ratio 0.7 (1.1-2.2) L 02/13/18 05:56 Lipase 84 Units/L (11-82) H 01/29/18 17:11 Urine Protein 30 mg/dL (Neg-Trace) H 02/12/18 14:11 Ur Leukocyte Esterase Moderate (Negative) H 02/12/18 14:11 Urine Microscopic WBC 50-100 per hpf (0-3) H 02/12/18 14:11 Ur Squamous Epith Cells Many per lpf (None-Few) H 02/12/18 14:11 Urine Yeast Few per hpf (None Seen) H 02/12/18 14:11 Ur Culture Indicated? NO. (NO) A 02/12/18 14:11 Stool Occult Blood Positive (Negative) A 02/07/18 04:28 Vancomycin Trough 12 mcg/mL (5-10) H 02/03/18 05:28 - Microbiology Findings Microbiology Findings: Microbiology, Last 48 Hours 02/08/18 17:33 Blood Culture - Final Peripheral Venipuncture No growth. Final report. 02/08/18 17:33 Blood Culture - Final Peripheral Venipuncture No growth. Final report. 02/12/18 09:36 Blood Culture - Preliminary Peripheral Venipuncture Culture is incubating and being continuously monitored for growth. Final report to follow. 02/12/18 09:30 Blood Culture - Preliminary Peripheral Venipuncture Culture is incubating and being continuously monitored for growth. Final report to follow. - Clinical Findings Intake & Output: Intake & Output 02/13/18 02/13/18 02/14/18 15:59 23:59 07:59 Intake Total 100 / 100 100 / 100 100 / 100 Output Total 525 / 525 225 / 225 150 / 150 Balance -425 / -425 -125 / -125 -50 / -50 Weight 121.1 kg - VTE Documentation of Mechanical Device: Graduated compression elastic hosiery Consult Discharge Plan - Plan Referrals: Jc Tsai MD [Primary Care Provider] -
[2018-02-14] MEDS: Sucralfate 1 GM TABLET PO SCH ×2 (07:54→16:09)
[2018-02-14] MEDS: Diltiazem CD (24hr) 120 MG CAPSULE PO SCH (07:54)
[2018-02-14] MEDS: Lactobacillus 1 EACH CAP.SPRINK PO SCH ×2 (07:54→21:07)
[2018-02-14] MEDS: Thiamine (B-1) 100 MG TABLET PO SCH (07:54)
[2018-02-14] MEDS: tiZANidine 4 MG TABLET PO SCH ×3 (07:55→21:07)
[2018-02-14] MEDS: Furosemide 40 MG/4 ML VIAL IVP SCH (07:55)
[2018-02-14] MEDS: Insulin LISPRO 300 UNITS/3 ML VIAL SQ SCH ×4 (07:55→21:13)
[2018-02-14] MEDS: Linezolid 600 MG TABLET PO SCH ×2 (07:55→21:07)
[2018-02-14] MEDS ORDERED: Ipratropium/Albuterol Neb 3 ML IH PRN (10:12)
[2018-02-14] MEDS ORDERED: *HR* OxyCODONE Immed Rel 5 MG TABLET PO PRN (10:12)
[2018-02-14] MEDS ORDERED: D5% in Water 1,000 ML IVC PRN (10:12)
[2018-02-14] MEDS ORDERED: Naloxone 0.4 MG/ML INJ IVP PRN (10:12)
[2018-02-14] MEDS ORDERED: Dextrose Gel 15 GM/37.5 ML TUBE PO PRN ×2 (10:12)
[2018-02-14] MEDS ORDERED: *HR* Dextrose 50 % in Water (Syg) 50 ML SYRINGE IVP PRN (10:12)
[2018-02-14] MEDS ORDERED: Acetaminophen 325 MG TABLET PO PRN (10:12)
[2018-02-14] MEDS ORDERED: Primidone 50 MG TABLET PO PRN (10:12)
--- NOTE | 2018-02-14 10:18 | Internal Med Progress Note ---
Date of Encounter: 02/14/18 Time of Encounter: 09:30 - Assessment and plan (1) Blood loss Current Visit: Yes Status: Acute Assessment and plan: Pt had a hemoglobin of 6.8 this mornign -HR 89 , BP 121/57; repeat showed HR 66 BP 97/40 Plan: -pt to get 1U PRBC -she has been typed and crossed and is AB(+) blood type -will check H&H in 3hours after blood transfusion and check CBC in the AM (2) Acute on chronic respiratory failure with hypoxia and hypercapnia Current Visit: Yes Status: Resolved Assessment and plan: Pt was found to be slumped over, lethargic and not responding to questions last Monday -she was moved to ICU and put on BiPAP -CXR 02/12 showed moderate pulmonary vascular congestion , small bilat pleural effusions, moderate left basilar atelectasis, small right basilar atelectasis, some improvement in chest appearance -O2 100% on BiPAP, on 1L O2 while eating -ABG today : pH 7.40, pCO2 66, pO2 79 Plan: -IV Lasix IVP daily -Fluid restriction 1.5L -Strict I&O's -repeat cxr in the AM -monitor ABG, CBC, CMP -continue BiPAP as per respiratory (3) Ulcer of right heel Current Visit: Yes Status: Acute Assessment and plan: s/p debridement of right heel with podiatry. -Wound cultures growing ESBL Klebsiella, Proteus penneri, gram (+) cocci -WBC count is 15.8, possibly starting to rise 2/2 to UA with (+) leukocyte esterase, 50-100 WBC although there are squamous cells seen so may be contaminated sample. Will correlate with urine culture Plan: -PICC line in -PTOT recommended ECF, social director on board. Pt to be d/c to SNF when stable -wound vac in place -ID discontinued zosyn, since pt has been on IV Zosyn for 2 wks -Continue PO Zyvox for +VRE wound cultures (4) DVT prophylaxis Current Visit: Yes Status: Acute Assessment and plan: SCD (5) Morbid obesity Current Visit: No Status: Chronic Assessment and plan: BMI 43 -encourage low fat, low cholesterol, diabetic diet -pt is noncompliant (6) HTN (hypertension) Current Visit: Yes Assessment and plan: On Coreg and Losartan -BP today 121/57 -well controlled Qualifiers: Hypertension type: essential hypertension Qualified Code(s): I10 - Essential (primary) hypertension (7) HLD (hyperlipidemia) Current Visit: No Status: Chronic Assessment and plan: c/w statin. 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, low cholesterol diet Qualifiers: Hyperlipidemia type: unspecified Qualified Code(s): E78.5 - Hyperlipidemia , unspecified (8) Diastolic heart failure Current Visit: Yes Status: Chronic Assessment and plan: -TTE in 11/2016 showed LVEF 60%, concentric LVH, moderate diastolic dysfxn -pt should eat a heart healthy diet and lose weight -pt has no reports of chest pain, SOB, dyspnea at this time Plan: -c/w 40mg IV lasix daily -continue with beta blockers -pt is on telemetry Qualifiers: Heart failure chronicity: chronic Qualified Code(s): I50.32 - Chronic diastolic (congestive) heart failure (9) Type 2 diabetes mellitus Current Visit: Yes Status: Chronic Assessment and plan: cw SSI and levemir 30 units QHS. Accucheks. BG this morning 78 Qualifiers: Diabetes mellitus supervisor endless track vehicle insulin use: with senior care use Diabetes mellitus complication status: with skin complications Diabetes mellitus complication detail: with foot ulcer Qualified Code(s): E11.621 - Type 2 diabetes mellitus with foot ulcer; L97.509 - Non-pressure chronic ulcer of other part of unspecified foot with unspecified severity; Z79.4 - FDC ( current) use of insulin (10) REGINALD on CPAP Current Visit: Yes Status: Chronic Assessment and plan: Continue CPAP at night (11) Sepsis Current Visit: Yes Status: Resolved Assessment and plan: On admition met SIRS criteria = leukocytosis and tachycardia -possible pneumonia, bilateral leg cellulitis, right foot ulcer. -resolved Qualifiers: Sepsis type: sepsis due to unspecified organism Qualified Code(s): A41.9 - Sepsis, unspecified organism (12) HAP (hospital-acquired pneumonia) Current Visit: Yes Status: Resolved Assessment and plan: Zosyn d/c by ID -resolved - Time Spent With Patient Total time spent is greater than 50% in coordination of care (as documented) at patient's floor/unit and/or counseling patient: less than 15 minutes - Subjective Interval history: Pt is seen at bedside. She is hospital day 16, s/p right diabetic foot ulcer debridement by early childhood teacher assistant. -The patient is able to appropriately answer questions today. She is off BiPAP and is on 1L NC O2. She is responsive, AOx3, and is talkative -Pt reports that she has no chest pain, SOB, wheezing, abdominal pain, N/V/D, headache, or cough. -pt has a Hg of 6.8, will be transfused 1U PRBC and then moved to the floor. Her BP is 97/40, HR 66 -ID discontinued her Zosyn since she has completed 2 weeks of IV abx, they are continuing PO Zyvox for the VRE wound cx -pt is a poorly controlled diabetic. Levemir at 30U, her fasting BG is 78 this morning -nursing reports she is now having brown stools as opposed to black Fluids - held Electrolytes - potassium 5.2, will recheck in AM Nutrition - tolerating diet, on clear liquids GI prophylaxis - Protonix 40mg BID PO, carafate DVT prophylaxis - SCD - Constitutional Vitals: Temp Pulse Resp BP Pulse Ox 96.8 F L 66 12 97/40 92 02/14/18 08:15 02/14/18 09:23 02/14/18 09:23 02/14/18 09:23 02/14/18 09:23 General appearance: Present: cooperative, morbidly obese, answers questions appropriately - Head Head exam: Present: normal inspection - Neck Neck exam general surgery: Present: supple - Respiratory Respiratory exam: Present: decreased breath sounds, rhonchi - Cardiovascular Cardiovascular exam: Present: RRR, +S1, +S2 - GI/Abdominal GI/Abdominal exam: Present: normal bowel sounds, soft, no peritoneal signs - Neurological Exam Neurological exam: Present: no focal deficits - Skin Skin exam: Present: intact Internal Medicine: Result - Labs CBC & Chem 7: 02/14/18 03:58 02/13/18 16:56 Labs: Short CBC 02/14/18 Range/Units 03:58 WBC 15.8 H (4.3-11.1) K/mcL Hgb 6.8 L (11.5-15.4) g/dL Hct 22.7 L (35.3-44.9) % Plt Count 266 (140-400) K/mcL Neutrophils # 9.9 H (1.6-8.9) K/mcL BMP 02/13/18 16:56 Sodium 145 Potassium 5.2 H Chloride 101 Carbon Dioxide 39 H BUN 64 H Creatinine 1.12 Glucose 156 H Calcium 8.3 L - ABG Interpretation ABG results: ABG ABG pH 7.40 pH Units (7.32-7.45) 02/14/18 05:22 ABG pCO2 66 mmHg (35-45) H 02/14/18 05:22 ABG pO2 79 mmHg (85-104) L 02/14/18 05:22 ABG O2 Saturation 95 % (95-98) 02/14/18 05:22 PT/INR, D-dimer PT 13.8 Seconds (9.4-12.1) H 01/29/18 17:11 - VTE Documentation of Mechanical Device: Graduated compression elastic hosiery Consult Discharge Plan - Plan Referrals: Jc Tsai MD [Primary Care Provider] -
--- NOTE | 2018-02-14 10:39 | Infectious Disease Progress No ---
Date of Encounter: 02/14/18 Time of Encounter: 09:00 - Assessment and Plan (1) Sepsis Current Visit: No Status: Resolved Met 3/4 SIRS criteria, with leukocytosis, tachycardia, tachypnea - Known source of infection with multifocal pneumonia, UTI, and cellulitis - Home health nurse reported a fever of 102 before admission - Patient was given IV fluid resuscitation in the emergency department - Blood cultures from and are currently pending - Currently on IV Zosyn and PO Zyvox; will discontinue the zosyn Qualifiers: Sepsis type: sepsis due to unspecified organism Qualified Code(s): A41.9 - Sepsis, unspecified organism (2) Ulcer of right heel Current Visit: Yes Status: Acute - Patient has necrotic right heel ulcer and bilateral lower extremity cellulitis - 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 Qualifiers: Non-pressure ulcer stage: unspecified non-pressure ulcer stage Qualified Code(s): L97.419 - Non-pressure chronic ulcer of right heel and midfoot with unspecified severity (3) UTI (urinary tract infection) Current Visit: No Status: Resolved Patient was recently discharged from hospital on 01/23; during hospitalization, patient was discharged home to complete a course of doxycycline fosfomycin until 01/30 for UTI with ESBL Klebsiella - UA demonstrates large amount of leukocyte esterase, WBC TNTC - Urine culture from 01/30 is negative Qualifiers: Urinary tract infection type: site unspecified Hematuria presence: without hematuria Qualified Code(s): N39.0 - Urinary tract infection, site not specified (4) HAP (hospital-acquired pneumonia) Current Visit: Yes Status: Resolved - Patient was recently discharged on 01/23 - On arrival, SPO2 was 84% on room air; heart rate in the 130s - Chest x-ray demonstrated increasing pulmonary edema with worsening basilar atelectasis - CTA demonstrated multifocal airspace consolidation throughout both lungs; most likely reflective of multifocal pneumonia. - Continue bronchodilators and incentive spirometry - Resp. infection panel negative - Legionella and strep antigen both negative - Respiratory status has improved (5) Venous stasis dermatitis of both lower extremities Current Visit: Yes Status: Chronic - CT of the legs demonstrated extensive subcutaneous edema skin thickening of the bilateral lower extremities - Findings are likely reflective of chronic venous stasis/lymphedema versus cellulitis - No organized drainable fluid collection has been identified - Continue wound care (6) Diastolic heart failure Current Visit: Yes Status: Chronic - Acute on chronic diastolic CHF exacerbation - Presented with shortness of breath, pedal edema, rales on exam, and tachycardia with heart rate in the 130s - CXR revealed increasing pulmonary edema with worsening bibasilar atelectasis. - Echo 11/11/17 revealed LVEF 55-60%, mild concentric LVH - Management per primary team Qualifiers: Heart failure chronicity: chronic Qualified Code(s): I50.32 - Chronic diastolic (congestive) heart failure (7) Type 2 diabetes mellitus Current Visit: Yes Status: Chronic - HGB a1c level 11% on 09/20/17 - Continue basal and SSI - Monitor accu-checks Qualifiers: Diabetes mellitus oil heaterman insulin use: with oil heaterman use Diabetes mellitus complication status: with skin complications Diabetes mellitus complication detail: with foot ulcer Qualified Code(s): E11.621 - Type 2 diabetes mellitus with foot ulcer; L97.509 - Non-pressure chronic ulcer of other part of unspecified foot with unspecified severity; Z79.4 - long term care pharmacist ( current) use of insulin (8) Thyroid nodule Current Visit: Yes Status: Acute - Incidentally found on chest CTA on 01/29; stable 2.4 cm low attenuation nodule within the left thyroid lobe. - Follow-up the outpatient setting (9) DOROTHEA (acute kidney injury) Current Visit: Yes Status: Acute Resolved - Subjective Interval history: Patient seen and examined at bedside; she reports feeling well today. She is scheduled to be transferred out of ICU today. Also receiving 2 U pRBCs due to anemia. Denies any respiratory distress, cough, sputum production, fever, chills, nausea, or vomiting. No complaints at this time. Infect Dis PN-Objective Data - Labs CBC & Chem 7: 02/15/18 11:18 02/15/18 00:44 Labs: Laboratory Results - last 24 hr 02/13/18 02/13/1818 11:10 14:48 15:35 WBC RBC Hgb Hct MCV MCH MCHC RDW Plt Count MPV Immature Gran % Seg Neutrophils % Lymphocytes % Monocytes % Eosinophils % Basophils % Neutrophils # Lymphocytes # Monocytes # Eosinophils # Basophils # Sample Site ABG pH ABG pCO2 ABG pO2 ABG HCO3 ABG Total CO2 ABG O2 Saturation ABG Base Excess VBG pH 7.39 O2 Delivery Device Inspired O2 PEEP Sodium Potassium Chloride Carbon Dioxide BUN Creatinine Est GFR ( Amer) Est GFR (Non-Af Amer) BUN/Creatinine Ratio Glucose POC Glucose 122 H 149 H Calculated Osmolality Calcium Venous Ioniz Calcium 1.07 L Blood Type Antibody Screen Crossmatch 02/13/18 02/13/18 02/13/18 16:56 20:14 23:44 WBC RBC Hgb Hct MCV MCH MCHC RDW Plt Count MPV Immature Gran % Seg Neutrophils % Lymphocytes % Monocytes % Eosinophils % Basophils % Neutrophils # Lymphocytes # Monocytes # Eosinophils # Basophils # Sample Site ABG pH ABG pCO2 ABG pO2 ABG HCO3 ABG Total CO2 ABG O2 Saturation ABG Base Excess VBG pH O2 Delivery Device Inspired O2 PEEP Sodium 145 Potassium 5.2 H Chloride 101 Carbon Dioxide 39 H BUN 64 H Creatinine 1.12 Est GFR ( Amer) > 60 Est GFR (Non-Af Amer) 50 L BUN/Creatinine Ratio 57 H Glucose 156 H POC Glucose 157 H 99 Calculated Osmolality 322 H Calcium 8.3 L Venous Ioniz Calcium Blood Type Antibody Screen Crossmatch 02/14/18 02/14/18 02/14/18 03:58 05:22 07:09 WBC 15.8 H RBC 2.56 L Hgb 6.8 L Hct 22.7 L MCV 88.7 MCH 26.6 L MCHC 30.0 L RDW 19.9 H Plt Count 266 MPV 12.3 Immature Gran % 0.6 Seg Neutrophils % 63.0 Lymphocytes % 29.2 Monocytes % 6.3 Eosinophils % 0.3 Basophils % 0.6 Neutrophils # 9.9 H Lymphocytes # 4.6 Monocytes # 1.0 Eosinophils # 0.1 Basophils # 0.1 Sample Site R Radial ABG pH 7.40 ABG pCO2 66 H ABG pO2 79 L ABG HCO3 41 H ABG Total CO2 43 H ABG O2 Saturation 95 ABG Base Excess 14 H VBG pH O2 Delivery Device BiPAP Inspired O2 30.0 PEEP 6 Sodium Potassium Chloride Carbon Dioxide BUN Creatinine Est GFR ( Amer) Est GFR (Non-Af Amer) BUN/Creatinine Ratio Glucose POC Glucose 78 Calculated Osmolality Calcium Venous Ioniz Calcium Blood Type Antibody Screen Crossmatch 02/14/18 09:40 WBC RBC Hgb Hct MCV MCH MCHC RDW Plt Count MPV Immature Gran % Seg Neutrophils % Lymphocytes % Monocytes % Eosinophils % Basophils % Neutrophils # Lymphocytes # Monocytes # Eosinophils # Basophils # Sample Site ABG pH ABG pCO2 ABG pO2 ABG HCO3 ABG Total CO2 ABG O2 Saturation ABG Base Excess VBG pH O2 Delivery Device Inspired O2 PEEP Sodium Potassium Chloride Carbon Dioxide BUN Creatinine Est GFR ( Amer) Est GFR (Non-Af Amer) BUN/Creatinine Ratio Glucose POC Glucose Calculated Osmolality Calcium Venous Ioniz Calcium Blood Type AB POSITIVE Antibody Screen NEGATIVE Crossmatch See Detail Cultures: Cultures 02/08/18 17:33 Blood Culture - Final Peripheral Venipuncture No growth. Final report. 02/08/18 17:33 Blood Culture - Final Peripheral Venipuncture No growth. Final report. 02/12/18 09:36 Blood Culture - Preliminary Peripheral Venipuncture Culture is incubating and being continuously monitored for growth. Final report to follow. 02/12/18 09:30 Blood Culture - Preliminary Peripheral Venipuncture Culture is incubating and being continuously monitored for growth. Final report to follow. 02/01/18 10:50 Wound Culture - Final Right Foot Klebsiella pneumoniae MDRO Proteus penneri Vancomycin Resistant Enterococcus faecium 02/01/18 11:30 Surgical Biopsy Culture - Final Right Foot Klebsiella pneumoniae MDRO Proteus penneri Vancomycin Resistant Enterococcus faecium 02/01/18 11:30 Anaerobic Culture - Final Right Foot No anaerobes were recovered. Serology 02/12/18 02/07/18 02/07/18 Range/Units 14:11 04:28 04:28 Urine Color Yellow (Yellow) Urine Clarity Clear (Clear) Urine pH 6.0 (5.0-8.0) pH Units Ur Specific [place] 1.018 (1.010-1.025) Urine Protein 30 H (Neg-Trace) mg/dL Urine Glucose (UA) Normal (Normal) mg/dL Urine Ketones Negative (Negative) mg/dL Urine Blood Negative (Negative) Urine Nitrite Negative (Negative) Urine Bilirubin Negative (Negative) Urine Urobilinogen Normal (Normal) mg/dL Ur Leukocyte Esterase Moderate H (Negative) Urine Microscopic RBC 0-3 (0-3) per hpf Urine Microscopic WBC 50-100 H (0-3) per hpf Ur Squamous Epith Cells Many H (None-Few) per lpf Urine Bacteria None Seen (None-Few) per hpf Hyaline Casts None Seen (None-Few) per lpf Urine Yeast Few H (None Seen) per hpf Ur Culture Indicated? NO. A (NO) Stool Occult Blood Positive A (Negative) Stl C. cayetanensis PCR Not detected (Not detect) Stool Rotavirus A PCR Not detected (Not detect) Stl Adenov F 40/41 PCR Not detected (Not detect) Stool Astrovirus (PCR) Not detected (Not detect) Stool Campylobacter PCR Not detected (Not detect) Stl C. diff Tox A/B PCR Not detected (Not detect) Stool Cryptosporidium PCR Not detected (Not detect) Stl Sh Tox Pr E STEC PCR Not detected (Not detect) Stool E coli O157 PCR Not detected (Not detect) Stl Enterotoxigenic E PCR Not detected (Not detect) Stool EPEC (PCR) Not detected (Not detect) Stool EAEC (PCR) Not detected (Not detect) Stl E. histolytica PCR Not detected (Not detect) Stool Giardia Lamblia PCR Not detected (Not detect) Stool Salmonella PCR Not detected (Not detect) Stool Sapovirus (PCR) Not detected (Not detect) Stl P. shigelloides PCR Not detected (Not detect) Stl Shigella/EIEC PCR Not detected (Not detect) St Y.enterocolitica PCR Not detected (Not detect) Stool Vibrio (PCR) Not detected (Not detect) Stl Vibrio cholerae PCR Not detected (Not detect) Stl Norovirus GI/GII PCR Not detected (Not detect) Stl GI Panel (PCR) Com See below Chlamy pneumoniae PCR (Not Detect) Adenovirus (PCR) (Not Detect) B. pertussis DNA (PCR) (Not Detect) B.parapertussis DNA PCR (Not Detect) Coronavirus OC43 (PCR) (Not Detect) Coronavirus HKU1 (PCR) (Not Detect) Coronavirus 229E (PCR) (Not Detect) Coronavirus NL63 (PCR) (Not Detect) Human Metapneumovir PCR (Not Detect) Influenza A (H1) PCR (Not Detect) Influ A (H1N1/09) PCR (Not Detect) Influenza A (H3) PCR (Not Detect) Influenza A Untype (PCR) (Not Detect) Influenza Type B (PCR) (Not Detect) M.pneumoniae DNA (PCR) (Not Detect) Parainfluenza 1 (PCR) (Not Detect) Parainfluenza 2 (PCR) (Not Detect) Parainfluenza 3 (PCR) (Not Detect) Parainfluenza 4 (PCR) (Not Detect) RSV (PCR) (Not Detect) Entero/Rhino (PCR) (Not Detect) 01/30/18 Range/Units 18:41 Urine Color (Yellow) Urine Clarity (Clear) Urine pH (5.0-8.0) pH Units Ur Specific [place] (1.010-1.025) Urine Protein (Neg-Trace) mg/dL Urine Glucose (UA) (Normal) mg/dL Urine Ketones (Negative) mg/dL Urine Blood (Negative) Urine Nitrite (Negative) Urine Bilirubin (Negative) Urine Urobilinogen (Normal) mg/dL Ur Leukocyte Esterase (Negative) Urine Microscopic RBC (0-3) per hpf Urine Microscopic WBC (0-3) per hpf Ur Squamous Epith Cells (None-Few) per lpf Urine Bacteria (None-Few) per hpf Hyaline Casts (None-Few) per lpf Urine Yeast (None Seen) per hpf Ur Culture Indicated? (NO) Stool Occult Blood (Negative) Stl C. cayetanensis PCR (Not detect) Stool Rotavirus A PCR (Not detect) Stl Adenov F 40/41 PCR (Not detect) Stool Astrovirus (PCR) (Not detect) Stool Campylobacter PCR (Not detect) Stl C. diff Tox A/B PCR (Not detect) Stool Cryptosporidium PCR (Not detect) Stl Sh Tox Pr E STEC PCR (Not detect) Stool E coli O157 PCR (Not detect) Stl Enterotoxigenic E PCR (Not detect) Stool EPEC (PCR) (Not detect) Stool EAEC (PCR) (Not detect) Stl E. histolytica PCR (Not detect) Stool Giardia Lamblia PCR (Not detect) Stool Salmonella PCR (Not detect) Stool Sapovirus (PCR) (Not detect) Stl P. shigelloides PCR (Not detect) Stl Shigella/EIEC PCR (Not detect) St Y.enterocolitica PCR (Not detect) Stool Vibrio (PCR) (Not detect) Stl Vibrio cholerae PCR (Not detect) Stl Norovirus GI/GII PCR (Not detect) Stl GI Panel (PCR) Com Chlamy pneumoniae PCR Not Detected (Not Detect) Adenovirus (PCR) Not Detected (Not Detect) B. pertussis DNA (PCR) Not Detected (Not Detect) B.parapertussis DNA PCR Not Detected (Not Detect) Coronavirus OC43 (PCR) Not Detected (Not Detect) Coronavirus HKU1 (PCR) Not Detected (Not Detect) Coronavirus 229E (PCR) Not Detected (Not Detect) Coronavirus NL63 (PCR) Not Detected (Not Detect) Human Metapneumovir PCR Not Detected (Not Detect) Influenza A (H1) PCR Not Detected (Not Detect) Influ A (H1N1/09) PCR Not Detected (Not Detect) Influenza A (H3) PCR Not Detected (Not Detect) Influenza A Untype (PCR) Not Detected (Not Detect) Influenza Type B (PCR) Not Detected (Not Detect) M.pneumoniae DNA (PCR) Not Detected (Not Detect) Parainfluenza 1 (PCR) Not Detected (Not Detect) Parainfluenza 2 (PCR) Not Detected (Not Detect) Parainfluenza 3 (PCR) Not Detected (Not Detect) Parainfluenza 4 (PCR) Not Detected (Not Detect) RSV (PCR) Not Detected (Not Detect) Entero/Rhino (PCR) Not Detected (Not Detect) Exam - Constitutional Vitals: Temp Pulse Resp BP Pulse Ox 96.8 F L 66 12 97/40 92 02/14/18 08:15 02/14/18 09:23 02/14/18 09:23 02/14/18 09:23 02/14/18 09:23 - Additional findings Additional findings: - Head Head exam: Present: atraumatic, normal inspection. - Respiratory Respiratory exam: Present: CTAB. Absent: decreased breath sounds, tachypnea, wheezes, rhonci - Cardiovascular Cardiovascular exam: Present: RRR, +S1, +S2 - Extremities Exam Additional comments: Both lower extremities are currently wrapped. S/P debridement of R foot. - Psychiatric Psychiatric exam: Present: normal affect - Skin Skin exam: Present: rash - VTE Documentation of Mechanical Device: Graduated compression elastic hosiery Consult Discharge Plan - Plan Referrals: Jc Tsai MD [Primary Care Provider] - - Attending Attestation I examined this patient and my medical decision-making was reviewed with the Resident Physician. I agree with the documented findings, disposition and treatment plan as described except to the extent set forth below.
[2018-02-14] MEDS ORDERED: 0.9 % Sodium Chloride 500 ML ONE (10:46)
[2018-02-14] MEDS ORDERED: Furosemide 40 MG/4 ML VIAL IVP ONE (11:36)
--- NOTE | 2018-02-14 12:43 | Event Note ---
Date of Encounter: 02/14/18 Time of Encounter: 12:37 Patient was seen and examined. I agree with the note as written by the resident physician. Still in the ICU but is ready for transfer out. Down to about 1-2 L O2 NC. Had to be transferred to ICU for hypercapnia and resp acidosis. Needed Bipap. Still diuresing but patient has been net neg about 16L this stay so far. Afebrile last 48 hours. patient is here with sepsis stemming from right lower ext ulcer , cellulitis, and HCAP. s/p I&D in OR on 02/01. cultures + for MDR klebseilla, proteus, and now VRE. multiple abx since admission and currently on zyvox only. had 14 days of zosyn. Hemodynamically stable. O2 needs at 4L. Patient has had a drop in H/H and FOBT is +. Needed PRBCs transfusion while here for hgb <7. Hgb down to 6.8 today. Seen by GI and EGD showed small blood clot and oozing in prepyloric stomach as well as one non-bleeding cratered duodenal ulcer with no stigamta of bleeding. GEN: NAD CVS: RRR. S1, S2, No m/r/g RESP: CTAB ABD: Soft, NT, ND, +BS EXT: 1+ edema. 2+ DP. Lower extremities wrapped bilaterally NEURO: Nonfocal transfuse 1 unit PRBCs. Blood pressure is borderline. Hold coreg and cardizem Got 40 mg IV lasix today Patient is net neg 16L for stay. She is now weighing about 15 kg less than admission. I think she has been adequately diuresed Appreciate pulm's help Appreciate ID's help c/w zyvox for now. zosyn stopped afebrile x 48hrs. Repeat Blood cx neg. UA cultures neg Wean O2 as tolerated Oral PPi Glycemic control DVT ppx
[2018-02-14] MEDS ORDERED: Piperacillin/Tazobactam 3.375 GM in 0.9 % Sodium Chloride Mini Bag 100 ML IVPB SCH (13:00)
[2018-02-14 14:58] LABS: Hemoglobin 6.7 g/dL (11.5-15.4)
[2018-02-14 15:16] LABS: Calcium 8.2 mg/dL (8.6-10.3); Potassium 4.5 mEq/L (3.5-5.1)
--- NOTE | 2018-02-14 20:03 | Electrocardiograph Report ---
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
[2018-02-14] MEDS: Latanoprost 2.5 ML BOTTLE BOTH EYES SCH (21:08)
[2018-02-14] MEDS: Insulin DETEMIR 100 UNIT/ML X5UNITS SQ SCH (21:13)
[2018-02-15 01:12] LABS: Basophils # 0.1 K/mcL (0.0-0.2); Basophils % 0.4 %; Eosinophils # 0.2 K/mcL (0.0-0.6); Eosinophils % 1.7 %; Hematocrit 19.7 % (35.3-44.9); Hemoglobin 6.1 g/dL (11.5-15.4); Immature Granulocytes % 0.7 % (0-4); Lymphocytes # 3.3 K/mcL (0.6-4.6); Lymphocytes % 27.1 %; Mean Corpuscular Hemoglobin 28.1 pg (28.0-33.3); Mean Corpuscular Volume 90.8 fL (83.0-100.0); Mean Platelet Volume 12.3 fL (9.4-12.4); Monocytes # 0.8 K/mcL (0.0-1.3); Monocytes % 6.2 %; Neutrophils # 7.8 K/mcL (1.6-8.9); Platelet Count 193 K/mcL (140-400); Red Blood Count 2.17 M/mcL (3.82-4.97); Segmented Neutrophils % 63.9 %
[2018-02-15 01:32] LABS: Albumin 2.3 g/dL (3.5-5.7); Albumin/Globulin Ratio 0.7 (1.1-2.2); Bilirubin,Total 0.2 mg/dL (0.3-1.0); Calcium 7.9 mg/dL (8.6-10.3); Globulin 3.2 g/dL (2.4-3.5); Potassium 3.4 mEq/L (3.5-5.1); Total Protein 5.5 g/dL (6.4-8.9)
[2018-02-15 04:53] LABS: ABG Base Excess 13 mEq/L (-2 to 3); ABG HCO3 38 mEq/L (21-27); ABG Oxygen Saturation 95 % (95-98); ABG PCO2 56 mmHg (35-45); ABG PH 7.44 pH Units (7.32-7.45); ABG PO2 76 mmHg (85-104); ABG TCO2 40 mEq/L (20-26)
[2018-02-15] MEDS: *HR* Heparin 5,000 UNIT/ML VIAL SQ SCH (04:57)
[2018-02-15] MEDS ORDERED: 0.9 % Sodium Chloride 250 ML ONE ×3 (05:54→21:30)
[2018-02-15] MEDS ORDERED: Furosemide 40 MG/4 ML VIAL IVP ONE (07:37)
[2018-02-15] MEDS ORDERED: Diltiazem CD (24hr) 120 MG CAPSULE PO SCH (09:00)
--- NOTE | 2018-02-15 09:00 | Event Note ---
Date of Encounter: 02/15/18 Time of Encounter: 08:58 Patient was seen and examined. I agree with the note as written by the resident physician. Continues to drop H/H despite transfusion. Down to about 1-2 L O2 NC. Had to be transferred to ICU for hypercapnia and resp acidosis. Needed Bipap. Still diuresing but patient has been net neg about 16L this stay so far. Afebrile last 48 hours. patient is here with sepsis stemming from right lower ext ulcer , cellulitis, and HCAP. s/p I&D in OR on 02/01. cultures + for MDR klebseilla, proteus, and now VRE. multiple abx since admission and currently on zyvox only. had 14 days of zosyn. Hemodynamically stable. O2 needs at 4L. Patient has had a drop in H/H and FOBT is +. Needed PRBCs transfusion while here for hgb <7. Hgb down to 6.1 today. Seen by GI and EGD showed small blood clot and oozing in prepyloric stomach as well as one non-bleeding cratered duodenal ulcer with no stigamta of bleeding. GEN: NAD CVS: RRR. S1, S2, No m/r/g RESP: CTAB ABD: Soft, NT, ND, +BS EXT: 1+ edema. 2+ DP. Lower extremities wrapped bilaterally NEURO: Nonfocal transfuse 1 unit PRBCs. GI to scope again this morning resume coreg and cardizem if bp allows Hold diuresis Patient is net neg 16L for stay. She is now weighing about 15 kg less than admission. I think she has been adequately diuresed Appreciate pulm's help Appreciate ID's help c/w zyvox for now. zosyn stopped afebrile Repeat Blood cx neg. UA cultures neg Wean O2 as tolerated Oral PPi Glycemic control DVT ppx
[2018-02-15] MEDS ORDERED: Potassium Chloride 20 MEQ, Lidocaine 1% 2 ML in D5% in Water 250 ML IVPB ONE (09:21)
[2018-02-15] MEDS: Sucralfate 1 GM TABLET PO SCH ×2 (09:45→17:32)
[2018-02-15] MEDS: Thiamine (B-1) 100 MG TABLET PO SCH (09:45)
[2018-02-15] MEDS: Lactobacillus 1 EACH CAP.SPRINK PO SCH ×2 (09:45→20:25)
[2018-02-15] MEDS: tiZANidine 4 MG TABLET PO SCH ×3 (09:46→20:25)
[2018-02-15] MEDS: Furosemide 40 MG/4 ML VIAL IVP SCH (09:46)
[2018-02-15] MEDS: Linezolid 600 MG TABLET PO SCH ×2 (09:46→20:26)
[2018-02-15] MEDS: Insulin LISPRO 300 UNITS/3 ML VIAL SQ SCH ×4 (09:46→22:46)
--- NOTE | 2018-02-15 10:02 | Internal Med Progress Note ---
<Sg Irizarry S - Last Filed: 02/15/18 12:31> Date of Encounter: 02/15/18 Time of Encounter: 09:30 - Assessment and plan (1) Acute on chronic respiratory failure with hypoxia and hypercapnia Current Visit: Yes Status: Resolved Assessment and plan: Pt was found to be slumped over, lethargic and not responding to questions last Monday -she was moved to ICU and put on BiPAP -CXR 02/12 showed moderate pulmonary vascular congestion , small bilat pleural effusions, moderate left basilar atelectasis, small right basilar atelectasis, some improvement in chest appearance -O2 100% on BiPAP, on 1L O2 while eating -ABG today : pH 7.44, pCO2 56, pO2 76 -CXR (02/14) showed pulmonary edema Plan: -IV Lasix IVP daily 40mg -today she will get an extra 40mg IV Lasix because she is getting 2U pRBC as her hemoglobin is 6.1 -Fluid restriction 1.5L -Strict I&O's -monitor ABG, CBC, CMP -continue BiPAP as per respiratory (2) Ulcer of right heel Current Visit: Yes Status: Acute Assessment and plan: s/p debridement of right heel with podiatry. -Wound cultures growing ESBL Klebsiella, Proteus penneri, gram (+) cocci -WBC count is 12.3, Plan: -PICC line in -PTOT recommended ECF, social security benefits interviewer on board. Pt to be d/c to SNF when stable -wound vac in place -ID discontinued zosyn, since pt has been on IV Zosyn for 2 wks -Continue PO Zyvox for +VRE wound cultures Qualifiers: Non-pressure ulcer stage: unspecified non-pressure ulcer stage Qualified Code(s): L97.419 - Non-pressure chronic ulcer of right heel and midfoot with unspecified severity (3) DVT prophylaxis Current Visit: Yes Status: Acute Assessment and plan: SCD (4) Morbid obesity Current Visit: No Status: Chronic Assessment and plan: BMI 43 -encourage low fat, low cholesterol, diabetic diet -pt is noncompliant (5) HTN (hypertension) Current Visit: Yes Assessment and plan: On Coreg and Losartan -BP today 133/58 -well controlled Qualifiers: Hypertension type: essential hypertension Qualified Code(s): I10 - Essential (primary) hypertension (6) HLD (hyperlipidemia) Current Visit: No Status: Chronic Assessment and plan: c/w statin. -counselor aide on low fat, low cholesterol diet Qualifiers: Hyperlipidemia type: unspecified Qualified Code(s): E78.5 - Hyperlipidemia , unspecified (7) Diastolic heart failure Current Visit: Yes Status: Chronic Assessment and plan: -TTE in 11/2016 showed LVEF 60%, concentric LVH, moderate diastolic dysfxn -pt should eat a heart healthy diet and lose weight -pt has no reports of chest pain, SOB, dyspnea at this time Plan: -c/w 40mg IV lasix daily -continue with beta blockers -pt is on telemetry Qualifiers: Heart failure chronicity: chronic Qualified Code(s): I50.32 - Chronic diastolic (congestive) heart failure (8) Type 2 diabetes mellitus Current Visit: Yes Status: Chronic Assessment and plan: cw SSI and levemir 30 units QHS. Accucheks. 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 -resolved Qualifiers: Sepsis type: sepsis due to unspecified organism Qualified Code(s): A41.9 - Sepsis, unspecified organism (11) HAP (hospital-acquired pneumonia) Current Visit: Yes Status: Resolved Assessment and plan: Zosyn d/c by ID -resolved (12) Blood loss Current Visit: Yes Status: Acute Assessment and plan: Pt had a hemoglobin of 6.1 this morning -she is hemodynamically stable, BP 133/58, HR 69 -she continues to have black tarry stool -the patient denies any abdominal pain, N/V, dizziness Plan: -pt to get 1U PRBC, 40mg IVP lasix then another 1U of pRBC -she has been typed and crossed and is AB(+) blood type -will check H&H in 3hours after blood transfusion and check CBC in the AM -currently NPO in preparation for GI to possibly scope -pt had a nonbleeding duodenal and esophageal ulcer on scope last week - Time Spent With Patient Total time spent is greater than 50% in coordination of care (as documented) at patient's floor/unit and/or counseling patient: less than 15 minutes - Subjective Interval history: Pt is seen at bedside. She is hospital day 17, s/p right diabetic foot ulcer debridement by arboriculture teacher. -The patient is able to appropriately answer questions today. -She is on 97% NC O2. She is responsive, AOx3, and is talkative -Pt reports that she has no chest pain, SOB, wheezing, abdominal pain, N/V/D, headache, or cough. -She reports having a bowel movement this morning -nursing reports that she is having tarry black stools again -pt has a Hg of 6.8, will be transfused 1U PRBC and then moved to the floor. Her BP is 97/40, HR 66 -ID discontinued her Zosyn since she has completed 2 weeks of IV abx, they are continuing PO Zyvox for the VRE wound cx -pt is a poorly controlled diabetic. Levemir at 30U, her fasting BG is 91 this morning -pt is currently on NPO in preparation for possibly EGD, GI to see this morning -her hemoglobin was 6.1 and was trasnfused 2U of pRBC Fluids - held Electrolytes - potassium 3.4, pt given potassium replacement 20mEq IV Nutrition - NPO for GI in case they scope GI prophylaxis - Protonix 40mg BID IV, carafate DVT prophylaxis - SCD - Constitutional Vitals: Temp Pulse Resp BP Pulse Ox 98.2 F 69 15 133/58 97 02/15/18 07:23 02/15/18 07:23 02/15/18 07:23 02/15/18 07:23 02/15/18 07:23 General appearance: Present: cooperative, morbidly obese, answers questions appropriately - Respiratory Respiratory exam: Present: CTAB - Cardiovascular Cardiovascular exam: Present: RRR, +S1, +S2 - GI/Abdominal GI/Abdominal exam: Present: soft, no peritoneal signs - Skin Skin exam: Present: intact (B/L LE cellulitis) Internal Medicine: Result - Labs CBC & Chem 7: 02/15/18 11:18 02/15/18 00:44 Labs: Short CBC 02/14/18 02/15/18 Range/Units 14:39 00:44 WBC 12.3 H (4.3-11.1) K/mcL Hgb 6.7 L 6.1 L (11.5-15.4) g/dL Hct 21.0 L 19.7 L (35.3-44.9) % Plt Count 193 (140-400) K/mcL Neutrophils # 7.8 (1.6-8.9) K/mcL BMP 02/14/18 02/15/18 14:39 00:44 Sodium 139 140 Potassium 4.5 3.4 L Chloride 99 97 L Carbon Dioxide 33 H 35 H BUN 74 H 73 H Creatinine 1.51 H 1.43 H Glucose 156 H 118 H Calcium 8.2 L 7.9 L Liver Function 02/15/18 Range/Units 00:44 Total Bilirubin 0.2 L (0.3-1.0) mg/dL AST 10 L (13-39) Units/L ALT 5 L (7-52) Units/L Alkaline Phosphatase 42 (34-104) Units/L Albumin 2.3 L (3.5-5.7) g/dL - ABG Interpretation ABG results: ABG ABG pH 7.44 pH Units (7.32-7.45) 02/15/18 04:49 ABG pCO2 56 mmHg (35-45) H 02/15/18 04:49 ABG pO2 76 mmHg (85-104) L 02/15/18 04:49 ABG O2 Saturation 95 % (95-98) 02/15/18 04:49 PT/INR, D-dimer PT 13.8 Seconds (9.4-12.1) H 01/29/18 17:11 - Impressions Impressions Chest X-Ray 02/14/18 10:32 IMPRESSION: Pulmonary vascular congestion with probable small right pleural effusion and bibasilar atelectasis. D/ / Rogerio Miles / Rogerio Miles Interpreting Provider: Rogerio Miles - VTE Documentation of Mechanical Device: Graduated compression elastic hosiery Consult Discharge Plan - Plan Referrals: Jc Tsai MD [Primary Care Provider] - <Alli Lopez - Last Filed: 02/15/18 13:59> Date of Encounter: 02/15/18 - Assessment and plan (1) DVT prophylaxis Current Visit: Yes Status: Acute (2) Morbid obesity Current Visit: No Status: Chronic (3) HTN (hypertension) Current Visit: Yes (4) HLD (hyperlipidemia) Current Visit: No Status: Chronic (5) Diastolic heart failure Current Visit: Yes Status: Chronic (6) Ulcer of right heel Current Visit: Yes Status: Acute (7) Type 2 diabetes mellitus Current Visit: Yes Status: Chronic (8) REGINALD on CPAP Current Visit: Yes Status: Chronic (9) Sepsis Current Visit: Yes Status: Resolved Qualifiers: Sepsis type: sepsis due to unspecified organism Qualified Code(s): A41.9 - Sepsis, unspecified organism (10) HAP (hospital-acquired pneumonia) Current Visit: Yes Status: Resolved (11) Acute on chronic respiratory failure with hypoxia and hypercapnia Current Visit: Yes Status: Resolved (12) Blood loss Current Visit: Yes Status: Acute (13) Acute blood loss anemia Current Visit: Yes Status: Acute - Time Spent With Patient Total time spent is greater than 50% in coordination of care (as documented) at patient's floor/unit and/or counseling patient: - Constitutional Vitals: Temp Pulse Resp BP Pulse Ox 98.2 F 71 15 151/65 95 02/15/18 07:23 02/15/18 11:04 02/15/18 11:04 02/15/18 11:04 02/15/18 11:04 Internal Medicine: Result - Labs CBC & Chem 7: 02/15/18 11:18 02/15/18 00:44 Labs: Short CBC 02/14/18 02/15/18 02/15/18 Range/Units 14:39 00:44 11:18 WBC 12.3 H (4.3-11.1) K/mcL Hgb 6.7 L 6.1 L 8.0 L D (11.5-15.4) g/dL Hct 21.0 L 19.7 L 24.2 L (35.3-44.9) % Plt Count 193 (140-400) K/mcL Neutrophils # 7.8 (1.6-8.9) K/mcL BMP 02/14/18 02/15/18 14:39 00:44 Sodium 139 140 Potassium 4.5 3.4 L Chloride 99 97 L Carbon Dioxide 33 H 35 H BUN 74 H 73 H Creatinine 1.51 H 1.43 H Glucose 156 H 118 H Calcium 8.2 L 7.9 L Liver Function 02/15/18 Range/Units 00:44 Total Bilirubin 0.2 L (0.3-1.0) mg/dL AST 10 L (13-39) Units/L ALT 5 L (7-52) Units/L Alkaline Phosphatase 42 (34-104) Units/L Albumin 2.3 L (3.5-5.7) g/dL - ABG Interpretation ABG results: ABG ABG pH 7.44 pH Units (7.32-7.45) 02/15/18 04:49 ABG pCO2 56 mmHg (35-45) H 02/15/18 04:49 ABG pO2 76 mmHg (85-104) L 02/15/18 04:49 ABG O2 Saturation 95 % (95-98) 02/15/18 04:49 PT/INR, D-dimer PT 13.8 Seconds (9.4-12.1) H 01/29/18 17:11
[2018-02-15] MEDS ORDERED: Potassium Chloride 40 MEQ, Lidocaine 1% 2 ML in D5% in Water 500 ML IVPB ONE (10:04)
[2018-02-15 11:31] LABS: Hematocrit 24.2 % (35.3-44.9)
--- NOTE | 2018-02-15 12:40 | Infectious Disease Progress No ---
Date of Encounter: 02/15/18 Time of Encounter: 09:00 - Assessment and Plan (1) Sepsis Current Visit: No Status: Resolved Met 3/4 SIRS criteria, with leukocytosis, tachycardia, tachypnea - Known source of infection with multifocal pneumonia, UTI, and cellulitis - Home health nurse reported a fever of 102 before admission - Patient was given IV fluid resuscitation in the emergency department - Currently on PO Zyvox Qualifiers: Sepsis type: sepsis due to unspecified organism Qualified Code(s): A41.9 - Sepsis, unspecified organism (2) Ulcer of right heel Current Visit: Yes Status: Acute - Patient has necrotic right heel ulcer and bilateral lower extremity cellulitis - Normally sees electric sealing machine operator Dr. Stoll - CT scan of the legs was negative for osteomyelitis; did not demonstrate extensive subcutaneous edema - Underwent surgical debridement - R foot wound CX: Klebsiella ESBL sensitive to Zosyn, Imipenem, Ertapenem, Proteus, PROCUREMENT ASSISTANT - We recommend continuation of zosyn for 2-4 weeks; patient will also need agressive debridement and wound care - PO Zyvox due to +VRE wound CX Qualifiers: Non-pressure ulcer stage: unspecified non-pressure ulcer stage Qualified Code(s): L97.419 - Non-pressure chronic ulcer of right heel and midfoot with unspecified severity (3) UTI (urinary tract infection) Current Visit: No Status: Resolved Patient was recently discharged from hospital on 01/23; during hospitalization, patient was discharged home to complete a course of doxycycline fosfomycin until 01/30 for UTI with ESBL Klebsiella - UA demonstrates large amount of leukocyte esterase, WBC TNTC - Urine culture from 01/30 is negative Qualifiers: Urinary tract infection type: site unspecified Hematuria presence: without hematuria Qualified Code(s): N39.0 - Urinary tract infection, site not specified (4) HAP (hospital-acquired pneumonia) Current Visit: Yes Status: Resolved - Patient was recently discharged on 01/23 - On arrival, SPO2 was 84% on room air; heart rate in the 130s - Chest x-ray demonstrated increasing pulmonary edema with worsening basilar atelectasis - CTA demonstrated multifocal airspace consolidation throughout both lungs; most likely reflective of multifocal pneumonia. - Continue bronchodilators and incentive spirometry - Resp. infection panel negative - Legionella and strep antigen both negative - Respiratory status has improved (5) Venous stasis dermatitis of both lower extremities Current Visit: Yes Status: Chronic - CT of the legs demonstrated extensive subcutaneous edema skin thickening of the bilateral lower extremities - Findings are likely reflective of chronic venous stasis/lymphedema versus cellulitis - No organized drainable fluid collection has been identified - Continue wound care (6) Diastolic heart failure Current Visit: Yes Status: Chronic - Acute on chronic diastolic CHF exacerbation - Presented with shortness of breath, pedal edema, rales on exam, and tachycardia with heart rate in the 130s - CXR revealed increasing pulmonary edema with worsening bibasilar atelectasis. - Echo 11/11/17 revealed LVEF 55-60%, mild concentric LVH - Management per primary team Qualifiers: Heart failure chronicity: chronic Qualified Code(s): I50.32 - Chronic diastolic (congestive) heart failure (7) Type 2 diabetes mellitus Current Visit: Yes Status: Chronic - HGB a1c level 11% on 09/20/17 - Continue basal and SSI - Monitor accu-checks Qualifiers: Diabetes mellitus remote computer terminal operator insulin use: with remote computer terminal operator use Diabetes mellitus complication status: with skin complications Diabetes mellitus complication detail: with foot ulcer Qualified Code(s): E11.621 - Type 2 diabetes mellitus with foot ulcer; L97.509 - Non-pressure chronic ulcer of other part of unspecified foot with unspecified severity; Z79.4 - terminal operations manager ( current) use of insulin (8) Thyroid nodule Current Visit: Yes Status: Acute - Incidentally found on chest CTA on 01/29; stable 2.4 cm low attenuation nodule within the left thyroid lobe. - Follow-up the outpatient setting (9) DOROTHEA (acute kidney injury) Current Visit: Yes Status: Acute Resolved - Subjective Interval history: Patient seen and examined at bedside; she reports feeling well today. She is scheduled to have an EGD today for concern of GI bleed. Denies any respiratory distress, cough, sputum production, fever, chills, nausea, or vomiting. No complaints at this time. Infect Dis PN-Objective Data - Labs CBC & Chem 7: 02/15/18 14:15 02/15/18 00:44 Labs: Laboratory Results - last 24 hr 02/14/18 02/14/18 02/14/18 09:40 12:55 14:39 WBC RBC Hgb Hct MCV MCH MCHC RDW Plt Count MPV Immature Gran % Seg Neutrophils % Lymphocytes % Monocytes % Eosinophils % Basophils % Neutrophils # Lymphocytes # Monocytes # Eosinophils # Basophils # Sample Site ABG pH ABG pCO2 ABG pO2 ABG HCO3 ABG Total CO2 ABG O2 Saturation ABG Base Excess Inspired O2 Sodium 139 Potassium 4.5 Chloride 99 Carbon Dioxide 33 H BUN 74 H Creatinine 1.51 H Est GFR ( Amer) 43 L Est GFR (Non-Af Amer) 36 L BUN/Creatinine Ratio 49 H Glucose 156 H POC Glucose 101 H Calculated Osmolality 313 H Calcium 8.2 L Total Bilirubin AST ALT Alkaline Phosphatase Serum Total Protein Albumin Globulin Albumin/Globulin Ratio Blood Type AB POSITIVE Antibody Screen NEGATIVE Crossmatch See Detail 02/14/18 02/14/18 02/14/18 14:39 15:40 17:13 WBC RBC Hgb 6.7 L Hct 21.0 L MCV MCH MCHC RDW Plt Count MPV Immature Gran % Seg Neutrophils % Lymphocytes % Monocytes % Eosinophils % Basophils % Neutrophils # Lymphocytes # Monocytes # Eosinophils # Basophils # Sample Site ABG pH ABG pCO2 ABG pO2 ABG HCO3 ABG Total CO2 ABG O2 Saturation ABG Base Excess Inspired O2 Sodium Potassium Chloride Carbon Dioxide BUN Creatinine Est GFR ( Amer) Est GFR (Non-Af Amer) BUN/Creatinine Ratio Glucose POC Glucose 144 H 125 H Calculated Osmolality Calcium Total Bilirubin AST ALT Alkaline Phosphatase Serum Total Protein Albumin Globulin Albumin/Globulin Ratio Blood Type Antibody Screen Crossmatch 02/14/18 02/15/18 02/15/18 21:10 00:44 00:44 WBC 12.3 H RBC 2.17 L Hgb 6.1 L Hct 19.7 L MCV 90.8 MCH 28.1 MCHC 31.0 L RDW 19.0 H Plt Count 193 MPV 12.3 Immature Gran % 0.7 Seg Neutrophils % 63.9 Lymphocytes % 27.1 Monocytes % 6.2 Eosinophils % 1.7 Basophils % 0.4 Neutrophils # 7.8 Lymphocytes # 3.3 Monocytes # 0.8 Eosinophils # 0.2 Basophils # 0.1 Sample Site ABG pH ABG pCO2 ABG pO2 ABG HCO3 ABG Total CO2 ABG O2 Saturation ABG Base Excess Inspired O2 Sodium 140 Potassium 3.4 L Chloride 97 L Carbon Dioxide 35 H BUN 73 H Creatinine 1.43 H Est GFR ( Amer) 46 L Est GFR (Non-Af Amer) 38 L BUN/Creatinine Ratio 51 H Glucose 118 H POC Glucose 98 Calculated Osmolality 313 H Calcium 7.9 L Total Bilirubin 0.2 L AST 10 L ALT 5 L Alkaline Phosphatase 42 Serum Total Protein 5.5 L Albumin 2.3 L Globulin 3.2 Albumin/Globulin Ratio 0.7 L Blood Type Antibody Screen Crossmatch 02/15/18 02/15/18 02/15/18 04:49 07:21 11:06 WBC RBC Hgb Hct MCV MCH MCHC RDW Plt Count MPV Immature Gran % Seg Neutrophils % Lymphocytes % Monocytes % Eosinophils % Basophils % Neutrophils # Lymphocytes # Monocytes # Eosinophils # Basophils # Sample Site L Radial ABG pH 7.44 ABG pCO2 56 H ABG pO2 76 L ABG HCO3 38 H ABG Total CO2 40 H ABG O2 Saturation 95 ABG Base Excess 13 H Inspired O2 28.0 Sodium Potassium Chloride Carbon Dioxide BUN Creatinine Est GFR ( Amer) Est GFR (Non-Af Amer) BUN/Creatinine Ratio Glucose POC Glucose 91 89 Calculated Osmolality Calcium Total Bilirubin AST ALT Alkaline Phosphatase Serum Total Protein Albumin Globulin Albumin/Globulin Ratio Blood Type Antibody Screen Crossmatch 02/15/18 11:18 WBC RBC Hgb 8.0 L D Hct 24.2 L MCV MCH MCHC RDW Plt Count MPV Immature Gran % Seg Neutrophils % Lymphocytes % Monocytes % Eosinophils % Basophils % Neutrophils # Lymphocytes # Monocytes # Eosinophils # Basophils # Sample Site ABG pH ABG pCO2 ABG pO2 ABG HCO3 ABG Total CO2 ABG O2 Saturation ABG Base Excess Inspired O2 Sodium Potassium Chloride Carbon Dioxide BUN Creatinine Est GFR ( Amer) Est GFR (Non-Af Amer) BUN/Creatinine Ratio Glucose POC Glucose Calculated Osmolality Calcium Total Bilirubin AST ALT Alkaline Phosphatase Serum Total Protein Albumin Globulin Albumin/Globulin Ratio Blood Type Antibody Screen Crossmatch Cultures: Cultures 02/08/18 17:33 Blood Culture - Final Peripheral Venipuncture No growth. Final report. 02/08/18 17:33 Blood Culture - Final Peripheral Venipuncture No growth. Final report. 02/12/18 09:36 Blood Culture - Preliminary Peripheral Venipuncture Culture is incubating and being continuously monitored for growth. Final report to follow. 02/12/18 09:30 Blood Culture - Preliminary Peripheral Venipuncture Culture is incubating and being continuously monitored for growth. Final report to follow. 02/01/18 10:50 Wound Culture - Final Right Foot Klebsiella pneumoniae MDRO Proteus penneri Vancomycin Resistant Enterococcus faecium 02/01/18 11:30 Surgical Biopsy Culture - Final Right Foot Klebsiella pneumoniae MDRO Proteus penneri Vancomycin Resistant Enterococcus faecium 02/01/18 11:30 Anaerobic Culture - Final Right Foot No anaerobes were recovered. Serology 02/12/18 02/07/18 02/07/18 Range/Units 14:11 04:28 04:28 Urine Color Yellow (Yellow) Urine Clarity Clear (Clear) Urine pH 6.0 (5.0-8.0) pH Units Ur Specific Candor 1.018 (1.010-1.025) Urine Protein 30 H (Neg-Trace) mg/dL Urine Glucose (UA) Normal (Normal) mg/dL Urine Ketones Negative (Negative) mg/dL Urine Blood Negative (Negative) Urine Nitrite Negative (Negative) Urine Bilirubin Negative (Negative) Urine Urobilinogen Normal (Normal) mg/dL Ur Leukocyte Esterase Moderate H (Negative) Urine Microscopic RBC 0-3 (0-3) per hpf Urine Microscopic WBC 50-100 H (0-3) per hpf Ur Squamous Epith Cells Many H (None-Few) per lpf Urine Bacteria None Seen (None-Few) per hpf Hyaline Casts None Seen (None-Few) per lpf Urine Yeast Few H (None Seen) per hpf Ur Culture Indicated? NO. A (NO) Stool Occult Blood Positive A (Negative) Stl C. cayetanensis PCR Not detected (Not detect) Stool Rotavirus A PCR Not detected (Not detect) Stl Adenov F 40/41 PCR Not detected (Not detect) Stool Astrovirus (PCR) Not detected (Not detect) Stool Campylobacter PCR Not detected (Not detect) Stl C. diff Tox A/B PCR Not detected (Not detect) Stool Cryptosporidium PCR Not detected (Not detect) Stl Sh Tox Pr E STEC PCR Not detected (Not detect) Stool E coli O157 PCR Not detected (Not detect) Stl Enterotoxigenic E PCR Not detected (Not detect) Stool EPEC (PCR) Not detected (Not detect) Stool EAEC (PCR) Not detected (Not detect) Stl E. histolytica PCR Not detected (Not detect) Stool Giardia Lamblia PCR Not detected (Not detect) Stool Salmonella PCR Not detected (Not detect) Stool Sapovirus (PCR) Not detected (Not detect) Stl P. shigelloides PCR Not detected (Not detect) Stl Shigella/EIEC PCR Not detected (Not detect) St Y.enterocolitica PCR Not detected (Not detect) Stool Vibrio (PCR) Not detected (Not detect) Stl Vibrio cholerae PCR Not detected (Not detect) Stl Norovirus GI/GII PCR Not detected (Not detect) Stl GI Panel (PCR) Com See below Chlamy pneumoniae PCR (Not Detect) Adenovirus (PCR) (Not Detect) B. pertussis DNA (PCR) (Not Detect) B.parapertussis DNA PCR (Not Detect) Coronavirus OC43 (PCR) (Not Detect) Coronavirus HKU1 (PCR) (Not Detect) Coronavirus 229E (PCR) (Not Detect) Coronavirus NL63 (PCR) (Not Detect) Human Metapneumovir PCR (Not Detect) Influenza A (H1) PCR (Not Detect) Influ A (H1N1/09) PCR (Not Detect) Influenza A (H3) PCR (Not Detect) Influenza A Untype (PCR) (Not Detect) Influenza Type B (PCR) (Not Detect) M.pneumoniae DNA (PCR) (Not Detect) Parainfluenza 1 (PCR) (Not Detect) Parainfluenza 2 (PCR) (Not Detect) Parainfluenza 3 (PCR) (Not Detect) Parainfluenza 4 (PCR) (Not Detect) RSV (PCR) (Not Detect) Entero/Rhino (PCR) (Not Detect) 01/30/18 Range/Units 18:41 Urine Color (Yellow) Urine Clarity (Clear) Urine pH (5.0-8.0) pH Units Ur Specific Candor (1.010-1.025) Urine Protein (Neg-Trace) mg/dL Urine Glucose (UA) (Normal) mg/dL Urine Ketones (Negative) mg/dL Urine Blood (Negative) Urine Nitrite (Negative) Urine Bilirubin (Negative) Urine Urobilinogen (Normal) mg/dL Ur Leukocyte Esterase (Negative) Urine Microscopic RBC (0-3) per hpf Urine Microscopic WBC (0-3) per hpf Ur Squamous Epith Cells (None-Few) per lpf Urine Bacteria (None-Few) per hpf Hyaline Casts (None-Few) per lpf Urine Yeast (None Seen) per hpf Ur Culture Indicated? (NO) Stool Occult Blood (Negative) Stl C. cayetanensis PCR (Not detect) Stool Rotavirus A PCR (Not detect) Stl Adenov F 40/41 PCR (Not detect) Stool Astrovirus (PCR) (Not detect) Stool Campylobacter PCR (Not detect) Stl C. diff Tox A/B PCR (Not detect) Stool Cryptosporidium PCR (Not detect) Stl Sh Tox Pr E STEC PCR (Not detect) Stool E coli O157 PCR (Not detect) Stl Enterotoxigenic E PCR (Not detect) Stool EPEC (PCR) (Not detect) Stool EAEC (PCR) (Not detect) Stl E. histolytica PCR (Not detect) Stool Giardia Lamblia PCR (Not detect) Stool Salmonella PCR (Not detect) Stool Sapovirus (PCR) (Not detect) Stl P. shigelloides PCR (Not detect) Stl Shigella/EIEC PCR (Not detect) St Y.enterocolitica PCR (Not detect) Stool Vibrio (PCR) (Not detect) Stl Vibrio cholerae PCR (Not detect) Stl Norovirus GI/GII PCR (Not detect) Stl GI Panel (PCR) Com Chlamy pneumoniae PCR Not Detected (Not Detect) Adenovirus (PCR) Not Detected (Not Detect) B. pertussis DNA (PCR) Not Detected (Not Detect) B.parapertussis DNA PCR Not Detected (Not Detect) Coronavirus OC43 (PCR) Not Detected (Not Detect) Coronavirus HKU1 (PCR) Not Detected (Not Detect) Coronavirus 229E (PCR) Not Detected (Not Detect) Coronavirus NL63 (PCR) Not Detected (Not Detect) Human Metapneumovir PCR Not Detected (Not Detect) Influenza A (H1) PCR Not Detected (Not Detect) Influ A (H1N1/09) PCR Not Detected (Not Detect) Influenza A (H3) PCR Not Detected (Not Detect) Influenza A Untype (PCR) Not Detected (Not Detect) Influenza Type B (PCR) Not Detected (Not Detect) M.pneumoniae DNA (PCR) Not Detected (Not Detect) Parainfluenza 1 (PCR) Not Detected (Not Detect) Parainfluenza 2 (PCR) Not Detected (Not Detect) Parainfluenza 3 (PCR) Not Detected (Not Detect) Parainfluenza 4 (PCR) Not Detected (Not Detect) RSV (PCR) Not Detected (Not Detect) Entero/Rhino (PCR) Not Detected (Not Detect) - Impressions Impressions Chest X-Ray 02/14/18 10:32 IMPRESSION: Pulmonary vascular congestion with probable small right pleural effusion and bibasilar atelectasis. D/ / Rogerio Miles / Rogerio Miles Interpreting Provider: Rogerio Miles Exam - Constitutional Vitals: Temp Pulse Resp BP Pulse Ox 98.2 F 71 15 151/65 95 02/15/18 07:23 02/15/18 11:04 02/15/18 11:04 02/15/18 11:04 02/15/18 11:04 - Additional findings Additional findings: - Head Head exam: Present: atraumatic, normal inspection. - Respiratory Respiratory exam: Present: CTAB. Absent: decreased breath sounds, tachypnea, wheezes, rhonci - Cardiovascular Cardiovascular exam: Present: RRR, +S1, +S2 - Extremities Exam Additional comments: Both lower extremities are currently wrapped. S/P debridement of R foot. - Psychiatric Psychiatric exam: Present: normal affect - Skin Skin exam: Present: rash - VTE Documentation of Mechanical Device: Graduated compression elastic hosiery Consult Discharge Plan - Plan Referrals: Jc Tsai MD [Primary Care Provider] - - Attending Attestation I examined this patient and my medical decision-making was reviewed with the Resident Physician. I agree with the documented findings, disposition and treatment plan as described except to the extent set forth below.
[2018-02-15] MEDS ORDERED: *HR* Propofol 200 MG/20 ML VIAL IVP ONE (14:04)
[2018-02-15 14:33] LABS: Hematocrit 22.5 % (35.3-44.9); Hemoglobin 7.4 g/dL (11.5-15.4)
--- NOTE | 2018-02-15 14:55 | Anesthesia Evaluation PreOp ---
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 History: Other (ANxiety/Depression) Other Medical History: Diabetes Type II, GERD, Other (Hx GIB/Anemia/BMI = 49) Anesthesia History: No Prior Anesthetic Complications, Past Anesthesia (EGD, Debridement R-foot ulcer) Alcohol Use: none Drug use: none Medications and Allergies Atorvastatin [Lipitor] 40 mg PO HS 01/11/16 [History] Insulin ASPART [Novolog Flexpen] 6 - 14 unit SQ TID 01/11/16 [History] Latanoprost [Xalatan] 1 drop BOTH EYES HS 01/11/16 [History] Primidone [Mysoline] 25 - 50 mg PO BID PRN 01/11/16 [History] Ascorbic Acid [Vitamin C] 500 mg PO BID 03/25/16 [History] Docusate Sodium [Colace] 200 mg PO BID 03/25/16 [History] Furosemide [Lasix] 40 mg PO BID 12/06/16 [History] Fluticasone Propionate Nasal [Flonase] 2 spray NS DAILY #1 bottle 08/28/17 [Rx] Brimonidine Tartrate/Timolol [Combigan 0.2%-0.5% Eye Drops] 1 drop OP BID [History] Diltiazem HCl [Diltiazem 12Hr ER] 120 mg PO DAILY 11/10/17 [History] Esomeprazole Magnesium [Nexium] 40 mg PO DAILY 11/10/17 [History] Gentamicin Oint [Garamycin] 1 appl TP BID 11/10/17 [History] Ketoconazole 2% CRM [Nizoral Cream] 1 appl TP DAILY 11/10/17 [History] Ketorolac Tromethamine 1 drop OP QID 11/10/17 [History] Losartan Potassium [Cozaar] 100 mg PO DAILY 11/10/17 [History] Tizanidine HCl 4 mg PO TID 11/20/17 [History] Calcium Carbonate [Tums] 1,000 mg PO Q4HR PRN tab.chew 11/24/17 [Rx] Carvedilol [Coreg] 6.25 mg PO BIDWM tablet 11/24/17 [Rx] Lactobacillus Acidophilus [Acidophilus] 1 each PO BID #10 capsule 11/24/17 [Rx] Pregabalin [Lyrica] 75 mg PO BID 30 Days #60 capsule 11/24/17 [Rx] clonazePAM [Klonopin] 0.5 mg PO BID PRN 5 Days #10 tablet 11/24/17 [Rx] Gabapentin [Neurontin] 300 mg PO HS 01/17/18 [History] Insulin Glargine,Hum.rec.anlog [Basaglar Kwikpen U-100] 40 unit SQ BID 01/17/18 [History] Potassium Chloride [K-Tab ER] 20 meq PO QID 01/17/18 [History] Fosfomycin Tromethamine [Monurol] 3 gm PO Q48H 8 Days #4 packet 01/23/18 [Rx] Nystatin POWDER [Nystop] 1 appl TP BID bottle 01/23/18 [Rx] Ferrous Sulfate 325 mg PO BID 01/30/18 [History] Loratadine [Allergy Relief] 10 mg PO DAILY 01/30/18 [History] Pantoprazole Sodium [Protonix] 40 mg PO DAILY 01/30/18 [History] Polyethylene Glycol 3350 [MiraLAX] 17 gm PO DAILY 01/30/18 [History] 3 Allergy/AdvReac Type Severity Reaction Status Date / Time lisinopril [From Zestril] Allergy Rash Verified 01/17/18 13:50 - Meds/Allergy Pre-op Review Medications Reviewed: Yes Allergies Reviewed: Yes Beta Blockers on Current Med List: No Anesthesia Results - Labs 02/15/18 14:15 02/15/18 00:44 Laboratory Results WBC 12.3 K/mcL (4.3-11.1) H 02/15/18 00:44 RBC 2.17 M/mcL (3.82-4.97) L 02/15/18 00:44 Hgb 7.4 g/dL (11.5-15.4) L 02/15/18 14:15 Hct 22.5 % (35.3-44.9) L 02/15/18 14:15 MCV 90.8 fL (83.0-100.0) 02/15/18 00:44 MCH 28.1 pg (28.0-33.3) 02/15/18 00:44 MCHC 31.0 g/dL (31.6-35.5) L 02/15/18 00:44 RDW 19.0 % (11.5-14.5) H 02/15/18 00:44 Plt Count 193 K/mcL (140-400) 02/15/18 00:44 MPV 12.3 fL (9.4-12.4) 02/15/18 00:44 Immature Gran % 0.7 % (0-4) 02/15/18 00:44 Seg Neutrophils % 63.9 % 02/15/18 00:44 Lymphocytes % 27.1 % 02/15/18 00:44 Monocytes % 6.2 % 02/15/18 00:44 Eosinophils % 1.7 % 02/15/18 00:44 Basophils % 0.4 % 02/15/18 00:44 Neutrophils # 7.8 K/mcL (1.6-8.9) 02/15/18 00:44 Lymphocytes # 3.3 K/mcL (0.6-4.6) 02/15/18 00:44 Monocytes # 0.8 K/mcL (0.0-1.3) 02/15/18 00:44 Eosinophils # 0.2 K/mcL (0.0-0.6) 02/15/18 00:44 Basophils # 0.1 K/mcL (0.0-0.2) 02/15/18 00:44 Nucleated RBCs/100 WBC 0.2 /100 WBC (0) H 02/10/18 00:51 Immature Plt Fraction 7.1 % (1.1-6.1) H 02/09/18 05:40 ESR >= 130 mm/hr (0-15) H 01/29/18 17:11 PT 13.8 Seconds (9.4-12.1) H 01/29/18 17:11 INR 1.2 01/29/18 17:11 APTT 28.3 Seconds (26.0-36.0) 01/29/18 17:11 Sample Site L Radial 02/15/18 04:49 ABG pH 7.44 pH Units (7.32-7.45) 02/15/18 04:49 ABG pCO2 56 mmHg (35-45) H 02/15/18 04:49 ABG pO2 76 mmHg (85-104) L 02/15/18 04:49 ABG HCO3 38 mEq/L (21-27) H 02/15/18 04:49 ABG Total CO2 40 mEq/L (20-26) H 02/15/18 04:49 ABG O2 Saturation 95 % (95-98) 02/15/18 04:49 ABG Base Excess 13 mEq/L (-2 to 3) H 02/15/18 04:49 Eben Test N/A 02/13/18 05:28 VBG pH 7.39 pH Units (7.32-7.42) 02/13/18 14:48 Respiration Rate 12 02/12/18 18:49 O2 Delivery Device BiPAP 02/14/18 05:22 Blood Gas Modality CPAP/PS 02/12/18 11:08 Inspired O2 28.0 (1-15=lpm nm37-449=%) 02/15/18 04:49 PEEP 6 cm H2O 02/14/18 05:22 Pressure Support 20 cm H2O 02/12/18 18:49 Sodium 140 mEq/L (136-145) 02/15/18 00:44 Potassium 3.4 mEq/L (3.5-5.1) L 02/15/18 00:44 Chloride 97 mEq/L (98-107) L 02/15/18 00:44 Carbon Dioxide 35 mEq/L (23-29) H 02/15/18 00:44 BUN 73 mg/dL (6-20) H 02/15/18 00:44 Creatinine 1.43 mg/dL (0.60-1.20) H 02/15/18 00:44 Est GFR ( Amer) 46 (> 60) L 02/15/18 00:44 Est GFR (Non-Af Amer) 38 (> 60) L 02/15/18 00:44 BUN/Creatinine Ratio 51 (6-26) H 02/15/18 00:44 Glucose 118 mg/dL (70-105) H 02/15/18 00:44 POC Glucose 89 mg/dL (70-99) 02/15/18 11:06 Calculated Osmolality 313 (280-300) H 02/15/18 00:44 Lactic Acid 1.5 mmol/L (0.5-2.2) 01/29/18 17:11 Calcium 7.9 mg/dL (8.6-10.3) L 02/15/18 00:44 Venous Ioniz Calcium 1.07 mmol/L (1.15-1.35) L 02/13/18 14:48 Phosphorus 4.3 mg/dL (2.7-4.5) 02/12/18 17:27 Magnesium 2.0 mg/dL (1.6-2.6) 02/12/18 17:27 Total Bilirubin 0.2 mg/dL (0.3-1.0) L 02/15/18 00:44 Direct Bilirubin 0.3 mg/dL (0.0-0.2) H 01/29/18 17:11 Indirect Bilirubin 0.0 mg/dL (0.0-1.2) 01/29/18 17:11 AST 10 Units/L (13-39) L 02/15/18 00:44 ALT 5 Units/L (7-52) L 02/15/18 00:44 Alkaline Phosphatase 42 Units/L (34-104) 02/15/18 00:44 Troponin I < 0.03 ng/mL (< 0.04) 02/12/18 17:27 C-Reactive Protein 140 mg/L (Less than 10) H 01/29/18 17:11 B-Natriuretic Peptide 206 pg/mL (Less than 100) H 02/12/18 17:27 Serum Total Protein 5.5 g/dL (6.4-8.9) L 02/15/18 00:44 Albumin 2.3 g/dL (3.5-5.7) L 02/15/18 00:44 Globulin 3.2 g/dL (2.4-3.5) 02/15/18 00:44 Albumin/Globulin Ratio 0.7 (1.1-2.2) L 02/15/18 00:44 Lipase 84 Units/L (11-82) H 01/29/18 17:11 Random Cortisol 22.7 mcg/dl 01/29/18 17:11 Urine Color Yellow (Yellow) 02/12/18 14:11 Urine Clarity Clear (Clear) 02/12/18 14:11 Urine pH 6.0 pH Units (5.0-8.0) 02/12/18 14:11 Ur Specific [place] 1.018 (1.010-1.025) 02/12/18 14:11 Urine Protein 30 mg/dL (Neg-Trace) H 02/12/18 14:11 Urine Glucose (UA) Normal mg/dL (Normal) 02/12/18 14:11 Urine Ketones Negative mg/dL (Negative) 02/12/18 14:11 Urine Blood Negative (Negative) 02/12/18 14:11 Urine Nitrite Negative (Negative) 02/12/18 14:11 Urine Bilirubin Negative (Negative) 02/12/18 14:11 Urine Urobilinogen Normal mg/dL (Normal) 02/12/18 14:11 Ur Leukocyte Esterase Moderate (Negative) H 02/12/18 14:11 Urine Microscopic RBC 0-3 per hpf (0-3) 02/12/18 14:11 Urine Microscopic WBC 50-100 per hpf (0-3) H 02/12/18 14:11 Ur Squamous Epith Cells Many per lpf (None-Few) H 02/12/18 14:11 Urine Bacteria None Seen per hpf (None-Few) 02/12/18 14:11 Hyaline Casts None Seen per lpf (None-Few) 02/12/18 14:11 Urine Yeast Few per hpf (None Seen) H 02/12/18 14:11 Ur Culture Indicated? NO. (NO) A 02/12/18 14:11 Stool Occult Blood Positive (Negative) A 02/07/18 04:28 Stl C. cayetanensis PCR Not detected (Not detect) 02/07/18 04:28 Stool Rotavirus A PCR Not detected (Not detect) 02/07/18 04:28 Stl Adenov F 40/41 PCR Not detected (Not detect) 02/07/18 04:28 Stool Astrovirus (PCR) Not detected (Not detect) 02/07/18 04:28 Stool Campylobacter PCR Not detected (Not detect) 02/07/18 04:28 Stl C. diff Tox A/B PCR Not detected (Not detect) 02/07/18 04:28 Stool Cryptosporidium PCR Not detected (Not detect) 02/07/18 04:28 Stl Sh Tox Pr E STEC PCR Not detected (Not detect) 02/07/18 04:28 Stool E coli O157 PCR Not detected (Not detect) 02/07/18 04:28 Stl Enterotoxigenic E PCR Not detected (Not detect) 02/07/18 04:28 Stool EPEC (PCR) Not detected (Not detect) 02/07/18 04:28 Stool EAEC (PCR) Not detected (Not detect) 02/07/18 04:28 Stl E. histolytica PCR Not detected (Not detect) 02/07/18 04:28 Stool Giardia Lamblia PCR Not detected (Not detect) 02/07/18 04:28 Stool Salmonella PCR Not detected (Not detect) 02/07/18 04:28 Stool Sapovirus (PCR) Not detected (Not detect) 02/07/18 04:28 Stl P. shigelloides PCR Not detected (Not detect) 02/07/18 04:28 Stl Shigella/EIEC PCR Not detected (Not detect) 02/07/18 04:28 St Y.enterocolitica PCR Not detected (Not detect) 02/07/18 04:28 Stool Vibrio (PCR) Not detected (Not detect) 02/07/18 04: Stl Vibrio cholerae PCR Not detected (Not detect) 02/07/18 04:28 Stl Norovirus GI/GII PCR Not detected (Not detect) 02/07/18 04:28 Stl GI Panel (PCR) Com See below 02/07/18 04:28 Vancomycin Trough 12 mcg/mL (5-10) H 02/03/18 05:28 Random Vancomycin 13 mcg/mL 02/04/18 04:27 Chlamy pneumoniae PCR Not Detected (Not Detect) 01/30/18 18:41 Adenovirus (PCR) Not Detected (Not Detect) 01/30/18 18:41 B. pertussis DNA (PCR) Not Detected (Not Detect) 01/30/18 18:41 B.parapertussis DNA PCR Not Detected (Not Detect) 01/30/18 18:41 Coronavirus OC43 (PCR) Not Detected (Not Detect) 01/30/18 18:41 Coronavirus HKU1 (PCR) Not Detected (Not Detect) 01/30/18 18:41 Coronavirus 229E (PCR) Not Detected (Not Detect) 01/30/18 18:41 Coronavirus NL63 (PCR) Not Detected (Not Detect) 01/30/18 18:41 Human Metapneumovir PCR Not Detected (Not Detect) 01/30/18 18:41 Influenza A (H1) PCR Not Detected (Not Detect) 01/30/18 18:41 Influ A (H1N1/09) PCR Not Detected (Not Detect) 01/30/18 18:41 Influenza A (H3) PCR Not Detected (Not Detect) 01/30/18 18:41 Influenza A Untype (PCR) Not Detected (Not Detect) 01/30/18 18:41 Influenza Type B (PCR) Not Detected (Not Detect) 01/30/18 18:41 M.pneumoniae DNA (PCR) Not Detected (Not Detect) 01/30/18 18:41 Parainfluenza 1 (PCR) Not Detected (Not Detect) 01/30/18 18:41 Parainfluenza 2 (PCR) Not Detected (Not Detect) 01/30/18 18:41 Parainfluenza 3 (PCR) Not Detected (Not Detect) 01/30/18 18:41 Parainfluenza 4 (PCR) Not Detected (Not Detect) 01/30/18 18:41 RSV (PCR) Not Detected (Not Detect) 01/30/18 18:41 Entero/Rhino (PCR) Not Detected (Not Detect) 01/30/18 18:41 Blood Type AB POSITIVE 02/14/18 09:40 Antibody Screen NEGATIVE 02/14/18 09:40 Crossmatch See Detail 02/14/18 09:[address] 01/29/18 16:56 IMPRESSION: 1. Re- demonstration of extensive subcutaneous edema skin thickening of the bilateral lower extremities similar to previous exam. Findings may reflect chronic venous stasis/lymph edema versus cellulitis. Recommend clinical correlation. No organized drainable fluid collection identified. 2. Ulceration identified along the plantar aspect of the right foot at the level of the calcaneus which is new compared with previous exam. 3. Re- demonstration of remote fracture of the left 5th metatarsal base with no evidence for osseous bridging or callus formation. D/ / Iftikhar Ann MD / Iftikhar Ann MD Interpreting Provider: Iftikhar Ann MD Chest CTA 01/29/18 18:03 IMPRESSION: 1. Study limited by patient motion artifact and the left arm overlying the chest, causing streak artifact through the pulmonary arteries. However, there is no gross CT evidence of a pulmonary embolism. 2. No acute abnormality of the thoracic aorta. 3. Multifocal airspace consolidation throughout both lungs most likely reflects multifocal pneumonia. Additional scattered ground-glass opacity likely reflects either the continuum of multifocal pneumonia or additional superimposed asymmetric edema. Suggest appropriate clinical treatment, and short-term chest CT follow-up in 6-8 weeks to ensure resolution of the multifocal airspace opacities. 4. Trace right pleural effusion. 5. Stable 2.4 cm low-attenuation nodule within the left thyroid lobe. Unless this has already been clinically worked up, further follow-up of this nodule is as advised below. RECOMMENDATIONS: Managing Incidental Thyroid Nodule Detected at CT or MRI or US Further evaluation by thyroid Ultrasound recommended for these incidental nodules: Patient Age 18 years or less - Nodule of any size Patient Age 19-34 years old - Nodule 1 cm in size or greater PATIENT AGE 35 YEARS OR MORE - NODULE 1.5 CM IN SIZE OR GREATER Note: These recommendations do not apply to pts. w/ increased risk for thyroid cancer or pts. with symptomatic thyroid disease. Recommendations for f/u of Incidental Thyroid Nodules (ITN) found on CT, MR, NM and Extrathyroidal US are based upon the ACR white paper and Hoang 3-tiered system for managing ITNs: J Am Carrie Radiol. 2015 Aug;12(2): 143-50 D/ / 01/29/2018 19:36:39 Michi Reed MD / earnold Interpreting Provider: Michi Reed MD Echocardiogram 01/31/18 11:46 Impressions: LVEF 65%. Normal LV chamber size and function. Mild concentric left ventricular hypertrophy. Mild left ventricular diastolic dysfunction. Right ventricular size was not well visualized. Function appears grossly normal. Mild pulmonary hypertension. No significant valvular dysfunction. Left Ventricular Wall Motion: Rest Echo Findings All wall segments showed normal motion. Findings: Study Quality * Technically sub-optimal due to body habitus. ECG Findings * Sinus tachycardia. Left Ventricle * LVEF 65%. * Normal LV chamber size and function. * Mild concentric left ventricular hypertrophy. * Mild left ventricular diastolic dysfunction. Right Ventricle * Right ventricular size was not well visualized. Function appears grossly normal. Left Atrium * Moderately dilated left atrium. Right Atrium * Mildly dilated right atrium. Aortic Valve * Aortic valve not well visualized. * No aortic regurgitation. * No aortic stenosis. Mitral Valve * Mild mitral annular calcification * Trace mitral regurgitation. * No mitral stenosis. Tricuspid Valve * Normal tricuspid valve structure and function. * Trace tricuspid regurgitation. * Mild pulmonary hypertension. Pulmonic Valve * Pulmonic valve not well visualized. Aorta * Normally sized aortic root. Pericardium * The pericardium appears normal. IVC * Normal IVC dimensions and inspiratory collapse. Pulmonary Artery * Pulmonary artery not well visualized. Retroperitoneum Ultrasound 02/03/18 14:00 IMPRESSION: 1. No evidence of hydronephrosis. D/ / João Garcia MD / João Garcia MD Interpreting Provider: João Garcia MD Chest CT 02/12/18 15:00 IMPRESSION: Interval development of small bilateral pleural effusions. Progressive consolidation of bilateral lower lobes, suggestive of atelectasis or pneumonia. Additional ground-glass opacity within the remainder of the lungs, for which atelectasis, pneumonitis, or edema are considerations. Atherosclerosis, including coronary artery calcification. Multinodular thyroid, measuring up to approximately 2.7 cm within the left thyroid lobe. In the nonacute setting, thyroid ultrasound is suggested for further characterization. D/ / Garrett Humphrey MD / Garrett Humphrey MD Interpreting Provider: Garrett Humphrey MD Chest X-Ray 02/14/18 10:32 IMPRESSION: Pulmonary vascular congestion with probable small right pleural effusion and bibasilar atelectasis. D/ / Rogerio Miles / Rogerio Miles Interpreting Provider: Rogerio Miles - Imaging EKG: image reviewed (107bpm SINUS TACHYCARDIA Electronically Signed On 2017 20:01:44 EDT by Aj Valero) Anesthesia Exam Vital Signs Temp Pulse Resp BP Pulse Ox 02/15/18 11:04 71 15 151/65 95 02/15/18 07:23 98.2 F 69 15 133/58 97 02/15/18 06:30 98.1 F 68 18 133/58 02/15/18 06:03 97.8 F 67 18 136/54 100 02/15/18 05:00 97.6 F 64 15 129/61 97 02/15/18 01:00 97.7 F 57 12 116/54 97 02/15/18 00:35 14 116/54 100 02/14/18 21:49 97.8 F 63 15 114/47 99 02/14/18 17:03 97.5 F L 62 16 101/47 97 02/14/18 16:03 97.6 F 63 16 93/81 98 Intake and Output 02/14/18 02/15/18 02/15/18 23:59 07:59 15:59 Intake Total 0 / 0 420 / 420 350 / 350 Output Total 250 / 250 450 / 450 900 / 900 Balance -250 / -250 -30 / -30 -550 / -550 Intake: Oral 0 / 0 420 / 420 Blood Product 0 / 0 350 / 350 Rbcs Leuko Poor As-1 Unit 0 / 0 350 / 350 [id number] Output: Catheter 250 / 250 450 / 450 900 / 900 Other: Stool Size Moderate Small Stool Consistency loose loose Stool Characteristics Tarry Tarry Stool Color Black Black Weight 122.4 kg Blood Glucose* 98 91 89 Patient Weight 02/15/18 23:59 Weight 122.4 kg Height: 5'6" Weight: 269# BMI = 44 NPO (# of Hours): MNOc - HEENT Pupil (Motor): Pupils equal Mallampati: II Teeth: Edentulous Oral Opening: Greater than 3 - TOWER CLEANER LOC: Oriented TOWER CLEANER Motor: Normal RUE, Normal LUE, Normal RLE, Normal LLE, Normal Face TOWER CLEANER Sensory: Normal: RUE, LUE, RLE, LLE, Face - Cardiac Rhythm: Regular Murmur: None - Pulmonary Breath Sounds: bilateral Clear Respiratory Effort: Symmetrical Anesthesia Assess/Plan ASA Score: 4 Modified Monet Scale for Level of Consciousness: Cooperative, oriented, and tranquil Anesthetic Plan: MAC Monitoring Plan: Standard Monitors Recovery Plan: Other Anes Supervising Prov Stmt: Pt seen/evaluated, R&B discussed, questions answered and consent obtained. Josefina Garcia MD
[2018-02-15] MEDS ORDERED: *HR* EPINEPHrine 0.3 MG/0.3 ML (PEN) SQ ONE (15:20)
[2018-02-15] MEDS: Pantoprazole 40 MG VIAL IVP SCH (17:32)
[2018-02-15] MEDS: Latanoprost 2.5 ML BOTTLE BOTH EYES SCH (20:26)
[2018-02-15] MEDS: Insulin DETEMIR 100 UNIT/ML X5UNITS SQ SCH (22:43)
[2018-02-16 03:03] LABS: Basophils # 0.1 K/mcL (0.0-0.2); Basophils % 0.8 %; Eosinophils # 0.2 K/mcL (0.0-0.6); Eosinophils % 2.1 %; Hematocrit 26.8 % (35.3-44.9); Hemoglobin 8.7 g/dL (11.5-15.4); Immature Granulocytes % 0.5 % (0-4); Lymphocytes # 2.4 K/mcL (0.6-4.6); Lymphocytes % 31.7 %; Mean Corpuscular HGB Conc 32.5 g/dL (31.6-35.5); Mean Corpuscular Hemoglobin 28.8 pg (28.0-33.3); Mean Corpuscular Volume 88.7 fL (83.0-100.0); Mean Platelet Volume 11.9 fL (9.4-12.4); Monocytes # 0.6 K/mcL (0.0-1.3); Monocytes % 7.9 %; Neutrophils # 4.4 K/mcL (1.6-8.9); Platelet Count 190 K/mcL (140-400); Red Blood Count 3.02 M/mcL (3.82-4.97); Red Cell Distribution Width 18.1 % (11.5-14.5)
[2018-02-16 03:24] LABS: Alanine Aminotransferase 7 Units/L (7-52); Albumin 2.6 g/dL (3.5-5.7); Albumin/Globulin Ratio 0.7 (1.1-2.2); Alkaline Phosphatase 52 Units/L (34-104); Aspartate Amino Transferase 12 Units/L (13-39); BUN/Creatinine Ratio 53 (6-26); Bilirubin,Total 0.5 mg/dL (0.3-1.0); Blood Urea Nitrogen 57 mg/dL (6-20); Calcium 8.3 mg/dL (8.6-10.3); Carbon Dioxide 37 mEq/L (23-29); Chloride 99 mEq/L (98-107); Globulin 3.6 g/dL (2.4-3.5); Glucose 135 mg/dL (70-105); Osmolality,Calculated 308 (280-300); Potassium 3.7 mEq/L (3.5-5.1); Sodium 140 mEq/L (136-145); Total Protein 6.2 g/dL (6.4-8.9); eGFR For Non-African Americans 53 (> 60)
[2018-02-16] MEDS: Pantoprazole 40 MG VIAL IVP SCH ×2 (05:56→18:05)
[2018-02-16] MEDS ORDERED: *HR* Labetalol 20 MG/4 ML SYRINGE IVP PRN (08:19)
--- NOTE | 2018-02-16 09:36 | Infectious Disease Progress No ---
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 - CT scan of the legs was negative for osteomyelitis; did not demonstrate extensive subcutaneous edema - Underwent surgical debridement - R foot wound CX: Klebsiella ESBL sensitive to Zosyn, Imipenem, Ertapenem, Proteus, DATABASE REPORT WRITER - We recommend continuation of zosyn for 2-4 weeks; patient will also need agressive debridement and wound care - PO Zyvox due to +VRE wound CX Qualifiers: Non-pressure ulcer stage: unspecified non-pressure ulcer stage Qualified Code(s): L97.419 - Non-pressure chronic ulcer of right heel and midfoot with unspecified severity (2) HAP (hospital-acquired pneumonia) Current Visit: Yes Status: Resolved - Patient was recently discharged on 01/23 - On arrival, SPO2 was 84% on room air; heart rate in the 130s - Chest x-ray demonstrated increasing pulmonary edema with worsening basilar atelectasis - CTA demonstrated multifocal airspace consolidation throughout both lungs; most likely reflective of multifocal pneumonia. - Continue bronchodilators and incentive spirometry - Resp. infection panel negative - Legionella and strep antigen both negative - Respiratory status has improved (3) Venous stasis dermatitis of both lower extremities Current Visit: Yes Status: Chronic - CT of the legs demonstrated extensive subcutaneous edema skin thickening of the bilateral lower extremities - Findings are likely reflective of chronic venous stasis/lymphedema versus cellulitis - No organized drainable fluid collection has been identified - Continue wound care (4) Diastolic heart failure Current Visit: Yes Status: Chronic - Acute on chronic diastolic CHF exacerbation - Presented with shortness of breath, pedal edema, rales on exam, and tachycardia with heart rate in the 130s - CXR revealed increasing pulmonary edema with worsening bibasilar atelectasis. - Echo 11/11/17 revealed LVEF 55-60%, mild concentric LVH - Management per primary team Qualifiers: Heart failure chronicity: chronic Qualified Code(s): I50.32 - Chronic diastolic (congestive) heart failure (5) Type 2 diabetes mellitus Current Visit: Yes Status: Chronic - HGB a1c level 11% on 09/20/17 - Continue basal and SSI - Monitor accu-checks Qualifiers: Diabetes mellitus jail insulin use: with jail use Diabetes mellitus complication status: with skin complications Diabetes mellitus complication detail: with foot ulcer Qualified Code(s): E11.621 - Type 2 diabetes mellitus with foot ulcer; L97.509 - Non-pressure chronic ulcer of other part of unspecified foot with unspecified severity; Z79.4 - buttermaker continuous churn ( current) use of insulin (6) Thyroid nodule Current Visit: Yes Status: Acute - Incidentally found on chest CTA on 01/29; stable 2.4 cm low attenuation nodule within the left thyroid lobe. - Follow-up the outpatient setting (7) DOROTHEA (acute kidney injury) Current Visit: Yes Status: Acute Resolved - Subjective Interval history: Patient seen and examined at bedside; she reports feeling well today. Denies any respiratory distress, cough, sputum production, fever, chills, nausea, or vomiting. No complaints at this time. Infect Dis PN-Objective Data - Labs CBC & Chem 7: 02/16/18 02:35 02/16/18 02:35 Labs: Laboratory Results - last 24 hr 02/14/18 02/15/18 02/15/18 09:40 11:06 11:18 WBC RBC Hgb 8.0 L D Hct 24.2 L MCV MCH MCHC RDW Plt Count MPV Immature Gran % Seg Neutrophils % Lymphocytes % Monocytes % Eosinophils % Basophils % Neutrophils # Lymphocytes # Monocytes # Eosinophils # Basophils # Sodium Potassium Chloride Carbon Dioxide BUN Creatinine Est GFR ( Amer) Est GFR (Non-Af Amer) BUN/Creatinine Ratio Glucose POC Glucose 89 Calculated Osmolality Calcium Total Bilirubin AST ALT Alkaline Phosphatase Serum Total Protein Albumin Globulin Albumin/Globulin Ratio Blood Type AB POSITIVE Antibody Screen NEGATIVE Crossmatch See Detail 02/15/18 02/15/18 02/16/18 14:15 16:35 02:35 WBC 7.7 RBC 3.02 L Hgb 7.4 L 8.7 L Hct 22.5 L 26.8 L MCV 88.7 MCH 28.8 MCHC 32.5 RDW 18.1 H Plt Count 190 MPV 11.9 Immature Gran % 0.5 Seg Neutrophils % 57.0 Lymphocytes % 31.7 Monocytes % 7.9 Eosinophils % 2.1 Basophils % 0.8 Neutrophils # 4.4 Lymphocytes # 2.4 Monocytes # 0.6 Eosinophils # 0.2 Basophils # 0.1 Sodium Potassium Chloride Carbon Dioxide BUN Creatinine Est GFR ( Amer) Est GFR (Non-Af Amer) BUN/Creatinine Ratio Glucose POC Glucose 105 H Calculated Osmolality Calcium Total Bilirubin AST ALT Alkaline Phosphatase Serum Total Protein Albumin Globulin Albumin/Globulin Ratio Blood Type Antibody Screen Crossmatch 02/16/18 02:35 WBC RBC Hgb Hct MCV MCH MCHC RDW Plt Count MPV Immature Gran % Seg Neutrophils % Lymphocytes % Monocytes % Eosinophils % Basophils % Neutrophils # Lymphocytes # Monocytes # Eosinophils # Basophils # Sodium 140 Potassium 3.7 Chloride 99 Carbon Dioxide 37 H BUN 57 H Creatinine 1.07 Est GFR ( Amer) > 60 Est GFR (Non-Af Amer) 53 L BUN/Creatinine Ratio 53 H Glucose 135 H POC Glucose Calculated Osmolality 308 H Calcium 8.3 L Total Bilirubin 0.5 AST 12 L ALT 7 Alkaline Phosphatase 52 Serum Total Protein 6.2 L Albumin 2.6 L Globulin 3.6 H Albumin/Globulin Ratio 0.7 L Blood Type Antibody Screen Crossmatch Cultures: Cultures 02/15/18 05:04 Urine Culture - Preliminary Urine,Catheterized No growth. 02/08/18 17:33 Blood Culture - Final Peripheral Venipuncture No growth. Final report. 02/08/18 17:33 Blood Culture - Final Peripheral Venipuncture No growth. Final report. 02/12/18 09:36 Blood Culture - Preliminary Peripheral Venipuncture Culture is incubating and being continuously monitored for growth. Final report to follow. 02/12/18 09:30 Blood Culture - Preliminary Peripheral Venipuncture Culture is incubating and being continuously monitored for growth. Final report to follow. 02/01/18 10:50 Wound Culture - Final Right Foot Klebsiella pneumoniae MDRO Proteus penneri Vancomycin Resistant Enterococcus faecium 02/01/18 11:30 Surgical Biopsy Culture - Final Right Foot Klebsiella pneumoniae MDRO Proteus penneri Vancomycin Resistant Enterococcus faecium 02/01/18 11:30 Anaerobic Culture - Final Right Foot No anaerobes were recovered. Serology 02/12/18 02/07/18 02/07/18 Range/Units 14:11 04:28 04:28 Urine Color Yellow (Yellow) Urine Clarity Clear (Clear) Urine pH 6.0 (5.0-8.0) pH Units Ur Specific [place] 1.018 (1.010-1.025) Urine Protein 30 H (Neg-Trace) mg/dL Urine Glucose (UA) Normal (Normal) mg/dL Urine Ketones Negative (Negative) mg/dL Urine Blood Negative (Negative) Urine Nitrite Negative (Negative) Urine Bilirubin Negative (Negative) Urine Urobilinogen Normal (Normal) mg/dL Ur Leukocyte Esterase Moderate H (Negative) Urine Microscopic RBC 0-3 (0-3) per hpf Urine Microscopic WBC 50-100 H (0-3) per hpf Ur Squamous Epith Cells Many H (None-Few) per lpf Urine Bacteria None Seen (None-Few) per hpf Hyaline Casts None Seen (None-Few) per lpf Urine Yeast Few H (None Seen) per hpf Ur Culture Indicated? NO. A (NO) Stool Occult Blood Positive A (Negative) Stl C. cayetanensis PCR Not detected (Not detect) Stool Rotavirus A PCR Not detected (Not detect) Stl Adenov F 40/41 PCR Not detected (Not detect) Stool Astrovirus (PCR) Not detected (Not detect) Stool Campylobacter PCR Not detected (Not detect) Stl C. diff Tox A/B PCR Not detected (Not detect) Stool Cryptosporidium PCR Not detected (Not detect) Stl Sh Tox Pr E STEC PCR Not detected (Not detect) Stool E coli O157 PCR Not detected (Not detect) Stl Enterotoxigenic E PCR Not detected (Not detect) Stool EPEC (PCR) Not detected (Not detect) Stool EAEC (PCR) Not detected (Not detect) Stl E. histolytica PCR Not detected (Not detect) Stool Giardia Lamblia PCR Not detected (Not detect) Stool Salmonella PCR Not detected (Not detect) Stool Sapovirus (PCR) Not detected (Not detect) Stl P. shigelloides PCR Not detected (Not detect) Stl Shigella/EIEC PCR Not detected (Not detect) St Y.enterocolitica PCR Not detected (Not detect) Stool Vibrio (PCR) Not detected (Not detect) Stl Vibrio cholerae PCR Not detected (Not detect) Stl Norovirus GI/GII PCR Not detected (Not detect) Stl GI Panel (PCR) Com See below Chlamy pneumoniae PCR (Not Detect) Adenovirus (PCR) (Not Detect) B. pertussis DNA (PCR) (Not Detect) B.parapertussis DNA PCR (Not Detect) Coronavirus OC43 (PCR) (Not Detect) Coronavirus HKU1 (PCR) (Not Detect) Coronavirus 229E (PCR) (Not Detect) Coronavirus NL63 (PCR) (Not Detect) Human Metapneumovir PCR (Not Detect) Influenza A (H1) PCR (Not Detect) Influ A (H1N1/09) PCR (Not Detect) Influenza A (H3) PCR (Not Detect) Influenza A Untype (PCR) (Not Detect) Influenza Type B (PCR) (Not Detect) M.pneumoniae DNA (PCR) (Not Detect) Parainfluenza 1 (PCR) (Not Detect) Parainfluenza 2 (PCR) (Not Detect) Parainfluenza 3 (PCR) (Not Detect) Parainfluenza 4 (PCR) (Not Detect) RSV (PCR) (Not Detect) Entero/Rhino (PCR) (Not Detect) 01/30/18 Range/Units 18:41 Urine Color (Yellow) Urine Clarity (Clear) Urine pH (5.0-8.0) pH Units Ur Specific Deridder (1.010-1.025) Urine Protein (Neg-Trace) mg/dL Urine Glucose (UA) (Normal) mg/dL Urine Ketones (Negative) mg/dL Urine Blood (Negative) Urine Nitrite (Negative) Urine Bilirubin (Negative) Urine Urobilinogen (Normal) mg/dL Ur Leukocyte Esterase (Negative) Urine Microscopic RBC (0-3) per hpf Urine Microscopic WBC (0-3) per hpf Ur Squamous Epith Cells (None-Few) per lpf Urine Bacteria (None-Few) per hpf Hyaline Casts (None-Few) per lpf Urine Yeast (None Seen) per hpf Ur Culture Indicated? (NO) Stool Occult Blood (Negative) Stl C. cayetanensis PCR (Not detect) Stool Rotavirus A PCR (Not detect) Stl Adenov F 40/41 PCR (Not detect) Stool Astrovirus (PCR) (Not detect) Stool Campylobacter PCR (Not detect) Stl C. diff Tox A/B PCR (Not detect) Stool Cryptosporidium PCR (Not detect) Stl Sh Tox Pr E STEC PCR (Not detect) Stool E coli O157 PCR (Not detect) Stl Enterotoxigenic E PCR (Not detect) Stool EPEC (PCR) (Not detect) Stool EAEC (PCR) (Not detect) Stl E. histolytica PCR (Not detect) Stool Giardia Lamblia PCR (Not detect) Stool Salmonella PCR (Not detect) Stool Sapovirus (PCR) (Not detect) Stl P. shigelloides PCR (Not detect) Stl Shigella/EIEC PCR (Not detect) St Y.enterocolitica PCR (Not detect) Stool Vibrio (PCR) (Not detect) Stl Vibrio cholerae PCR (Not detect) Stl Norovirus GI/GII PCR (Not detect) Stl GI Panel (PCR) Com Chlamy pneumoniae PCR Not Detected (Not Detect) Adenovirus (PCR) Not Detected (Not Detect) B. pertussis DNA (PCR) Not Detected (Not Detect) B.parapertussis DNA PCR Not Detected (Not Detect) Coronavirus OC43 (PCR) Not Detected (Not Detect) Coronavirus HKU1 (PCR) Not Detected (Not Detect) Coronavirus 229E (PCR) Not Detected (Not Detect) Coronavirus NL63 (PCR) Not Detected (Not Detect) Human Metapneumovir PCR Not Detected (Not Detect) Influenza A (H1) PCR Not Detected (Not Detect) Influ A (H1N1/09) PCR Not Detected (Not Detect) Influenza A (H3) PCR Not Detected (Not Detect) Influenza A Untype (PCR) Not Detected (Not Detect) Influenza Type B (PCR) Not Detected (Not Detect) M.pneumoniae DNA (PCR) Not Detected (Not Detect) Parainfluenza 1 (PCR) Not Detected (Not Detect) Parainfluenza 2 (PCR) Not Detected (Not Detect) Parainfluenza 3 (PCR) Not Detected (Not Detect) Parainfluenza 4 (PCR) Not Detected (Not Detect) RSV (PCR) Not Detected (Not Detect) Entero/Rhino (PCR) Not Detected (Not Detect) Exam - Constitutional Vitals: Temp Pulse Resp BP Pulse Ox 97.6 F 83 16 182/79 100 02/16/18 06:37 02/16/18 06:37 02/16/18 06:37 02/16/18 06:37 02/16/18 06:37 - Additional findings Additional findings: - Head Head exam: Present: atraumatic, normal inspection. - Respiratory Respiratory exam: Present: CTAB. Absent: decreased breath sounds, tachypnea, wheezes, rhonci - Cardiovascular Cardiovascular exam: Present: RRR, +S1, +S2 - Extremities Exam Additional comments: Both lower extremities are currently wrapped. S/P debridement of R foot. - Psychiatric Psychiatric exam: Present: normal affect - Skin Skin exam: Present: rash - VTE Documentation of Mechanical Device: Intermittent pneumatic compression device Consult Discharge Plan - Plan Referrals: Jc Tsai MD [Primary Care Provider] - ([facility] office will call patient at home with a date for her follow up appointment.) Prescriptions: Furosemide [Lasix] 40 mg PO BID 30 Days #60 tab Pantoprazole Sodium [Protonix] 40 mg PO BID 30 Days #60 tablet. Sucralfate [Carafate] 1 gm PO 0730,1630 30 Days #60 tablet - Attending Attestation I examined this patient and my medical decision-making was reviewed with the Resident Physician. I agree with the documented findings, disposition and treatment plan as described except to the extent set forth below.
[2018-02-16] MEDS: Furosemide 40 MG/4 ML VIAL IVP SCH (09:49)
[2018-02-16] MEDS: Lactobacillus 1 EACH CAP.SPRINK PO SCH ×2 (09:49→21:08)
[2018-02-16] MEDS: Sucralfate 1 GM TABLET PO SCH ×2 (09:49→18:05)
[2018-02-16] MEDS: Thiamine (B-1) 100 MG TABLET PO SCH (09:50)
[2018-02-16] MEDS: Linezolid 600 MG TABLET PO SCH ×2 (09:51→21:08)
[2018-02-16] MEDS: tiZANidine 4 MG TABLET PO SCH ×3 (09:51→21:08)
--- NOTE | 2018-02-16 10:49 | Discharge Summary ---
<Sg Irizarry S - Last Filed: 02/16/18 11:40> - NOTES TO OUTPATIENT PROVIDER Notes to Outpatient Provider: Follow up with PCP for refills on protonix and carafate. Follow up with PCP for thyroid nodule, found on CTA 01/29. It is 2.4cm , low attenuation w/in left thyroid lobe Orders not resulted at time of discharge: Pending orders 02/12/18 09:36 Culture,Blood [BC] Stat 02/14/18 10:36 Culture,Urine [RM] Routine 02/17/18 04:00 Complete Blood Count [HEME] AM 0400 Comprehensive Metabolic Panel AM 0400 Date of Encounter: 02/16/18 Time of Encounter: 08:50 - Discharge Diagnosis (1) Sepsis Priority: Primary Status: Resolved Qualifiers: Sepsis type: sepsis due to unspecified organism Qualified Code(s): A41.9 - Sepsis, unspecified organism (2) Ulcer of right heel Priority: Secondary Status: Acute Qualifiers: Non-pressure ulcer stage: unspecified non-pressure ulcer stage Qualified Code(s): L97.419 - Non-pressure chronic ulcer of right heel and midfoot with unspecified severity (3) Acute blood loss anemia Priority: Secondary Status: Resolved (4) HAP (hospital-acquired pneumonia) Priority: Secondary Status: Resolved (5) Acute on chronic respiratory failure with hypoxia and hypercapnia Priority: Secondary Status: Resolved (6) DVT prophylaxis Priority: Secondary Status: Acute (7) Morbid obesity Priority: Secondary Status: Chronic (8) HTN (hypertension) Priority: Secondary Qualifiers: Hypertension type: essential hypertension Qualified Code(s): I10 - Essential (primary) hypertension (9) HLD (hyperlipidemia) Priority: Secondary Status: Chronic Qualifiers: Hyperlipidemia type: unspecified Qualified Code(s): E78.5 - Hyperlipidemia , unspecified (10) Diastolic heart failure Priority: Secondary Status: Chronic Qualifiers: Heart failure chronicity: chronic Qualified Code(s): I50.32 - Chronic diastolic (congestive) heart failure (11) Type 2 diabetes mellitus Priority: Secondary Status: Chronic Qualifiers: Diabetes mellitus residential insulin use: with extermination supervisor use Diabetes mellitus complication status: with skin complications Diabetes mellitus complication detail: with foot ulcer Qualified Code(s): E11.621 - Type 2 diabetes mellitus with foot ulcer; L97.509 - Non-pressure chronic ulcer of other part of unspecified foot with unspecified severity; Z79.4 - FPC ( current) use of insulin (12) REGINALD treated with BiPAP Priority: Secondary Status: Chronic Hospital course: Ms. Magallanes is a 58 year old female who was admitted 18 days ago for sepsis secondary to a right foot diabetic ulcer -on admission met SIRS criteria for leukocytosis and tacycardia -she had the right foot ulcer which was subsequently debrided by podiatry and had bilateral leg cellulitis -the patient was on Vancomycin and Zosyn for the infxn, zosyn for two weeks as per ID -wound cultures revealed VRE, so the pt is on PO Zyvox for this infxn Her stay was complicated by hospital acquired pneumonia -CT showed multifocal airspace consolidation throughout both lungs most likely reflects multifocal pneumonia; scattered ground glass opactcity likely reflects continnum of multifocal pneumonia vs asymmetric edema -ID put the pt on Zosyn, which was subseuqenrly discontinued after adequate treatment -the patient has clinically improved The patients hospital stay was further complicated by acute on chronic respiratory failure with hypoxia and hypercapnia -Ms. Magallanes was found to be slumped over on 02/09, lethargic and not responding to questions -at this time she was moved to ICU and put on BiPAP -CXR showed pulmonary edema -on 02/12 the CXR showed moderate pulmonary vascular congestion, small bilateral pleural effusions, moderate left basiliar atelectasis, small right basilar atelectasis, and an improvement in the chest appearance -currently her O2 sat is 100% on 4L NC -ABG when she was moved to ICU showed a pH of 7.22 and a pCO2 of 102, it improved slightly to 88 but subsequently worsened and the pt had to be moved -the last ABG showed pH 7.44, pCO2 56, pO2 76 -the patient will be discharged on BiPAP with settings at 16/6 at 4L The pt hospital stay was further complicated by GI bleed -Ms. Magallanes had an EGD on 02/08 showed a nonbleeding duodenal ulcer with no active bleeding -Hemoglobin continued to trend down, yesterday hemoglobin in the morning was 6.1 then 6.7 with transfusion but this morning was 7.7 and repeat 8.7 -Repeat EGD on 02/15 showed a duodenal ulcer, which was sclerosed -since the procedure hemoglobin has been stable and pt has been tolerating diet At this time, Ms. Magallanes will be discharged to an ECF -she will be d/c on Lasix 40mg PO BID, Carafate 1gm in morning and afternoon, and Protonix 40mg PO BID -encourage pt to keep head of the bed elevated, avoid large meals before bed -she will be d/c on BiPAP 06/01 on 4L -d/c on wound vac suction 125mmHg -d/c on PO Zyvox for a total of 14 days, currently day 9. Antipating d/c Monday , so she will be day 11 and will need 3 more days Discharge discussed with: patient, nurse Time spent discussing smoking cessation with patient: 3 to 10 minutes - Time Spent with Patient Total time spent providing and/or coordinating discharge services: Less than 30 minutes - Discharge Medications Prescriptions: Furosemide [Lasix] 40 mg PO BID 30 Days #60 tab Pantoprazole Sodium [Protonix] 40 mg PO BID 30 Days #60 tablet. Sucralfate [Carafate] 1 gm PO 0730,1630 30 Days #60 tablet Home Medications: Atorvastatin [Lipitor] 40 mg PO HS 01/11/16 [History] Insulin ASPART [Novolog Flexpen] 6 - 14 unit SQ TID 01/11/16 [History] Latanoprost [Xalatan] 1 drop BOTH EYES HS 01/11/16 [History] Primidone [Mysoline] 25 - 50 mg PO BID PRN 01/11/16 [History] Ascorbic Acid [Vitamin C] 500 mg PO BID 03/25/16 [History] Docusate Sodium [Colace] 200 mg PO BID 03/25/16 [History] Furosemide [Lasix] 40 mg PO BID 12/06/16 [History] Fluticasone Propionate Nasal [Flonase] 2 spray NS DAILY #1 bottle 08/28/17 [Rx] Brimonidine Tartrate/Timolol [Combigan 0.2%-0.5% Eye Drops] 1 drop OP BID [History] Diltiazem HCl [Diltiazem 12Hr ER] 120 mg PO DAILY 11/10/17 [History] Esomeprazole Magnesium [Nexium] 40 mg PO DAILY 11/10/17 [History] Gentamicin Oint [Garamycin] 1 appl TP BID 11/10/17 [History] Ketoconazole 2% CRM [Nizoral Cream] 1 appl TP DAILY 11/10/17 [History] Ketorolac Tromethamine 1 drop OP QID 11/10/17 [History] Losartan Potassium [Cozaar] 100 mg PO DAILY 11/10/17 [History] Tizanidine HCl 4 mg PO TID 11/20/17 [History] Calcium Carbonate [Tums] 1,000 mg PO Q4HR PRN tab.chew 11/24/17 [Rx] Carvedilol [Coreg] 6.25 mg PO BIDWM tablet 11/24/17 [Rx] Lactobacillus Acidophilus [Acidophilus] 1 each PO BID #10 capsule 11/24/17 [Rx] Pregabalin [Lyrica] 75 mg PO BID 30 Days #60 capsule 11/24/17 [Rx] clonazePAM [Klonopin] 0.5 mg PO BID PRN 5 Days #10 tablet 11/24/17 [Rx] Gabapentin [Neurontin] 300 mg PO HS 01/17/18 [History] Insulin Glargine,Hum.rec.anlog [Basaglar Kwikpen U-100] 40 unit SQ BID 01/17/18 [History] Potassium Chloride [K-Tab ER] 20 meq PO QID 01/17/18 [History] Nystatin POWDER [Nystop] 1 appl TP BID bottle 01/23/18 [Rx] Ferrous Sulfate 325 mg PO BID 01/30/18 [History] Loratadine [Allergy Relief] 10 mg PO DAILY 01/30/18 [History] Pantoprazole Sodium [Protonix] 40 mg PO DAILY 01/30/18 [History] Polyethylene Glycol 3350 [MiraLAX] 17 gm PO DAILY 01/30/18 [History] Furosemide [Lasix] 40 mg PO BID 30 Days #60 tab 02/16/18 [Rx] Pantoprazole Sodium [Protonix] 40 mg PO BID 30 Days #60 tablet. 02/16/18 [Rx] Sucralfate [Carafate] 1 gm PO 0730,1630 30 Days #60 tablet 02/16/18 [Rx] Allergies/Adverse Reactions: 3 Allergy/AdvReac Type Severity Reaction Status Date / Time lisinopril [From Zestril] Allergy Rash Verified 01/17/18 13:50 Date of admission: 01/30/18 18:32 Primary care physician: Jc Tsai MD Consults: 02/01/18 15:43 Consult to [facility] [CONS] Routine Reason for SW Consult: will need rehab at discharge 02/06/18 11:13 Consult to PICC team [Consult to Invasive Line Access Team] [CONS] Routine Reason for Consult: cellulitis, extermination supervisor abx needed Line Type: PICC 02/06/18 11:58 Consult to Invasive Line Access Team [CONS] Routine Reason for Consult: Picc Line Insertion Line Type: PICC PICC line indications: buttermaker continuous churn Med/Antibiotic 02/07/18 08:09 Consult to Gastroenterology [CONS] Routine Consulting Provider: Gastroenterology Isabella Reason for Consult: FOBT(+) Call Completed: No 02/12/18 16:44 Consult to Pulmonary Rehab [CONS] Routine Reason for Consult: worsening respiratory status on BiPAP Call Completed: Yes Discharging clinician: Sg Irizarry Anticipated date of discharge: 02/16/18 - Constitutional Vitals: Temp Pulse Resp BP Pulse Ox 97.6 F 83 16 182/79 100 02/16/18 06:37 02/16/18 06:37 02/16/18 06:37 02/16/18 06:37 02/16/18 06:37 General appearance: Present: cooperative, morbidly obese, answers questions appropriately - Neck Neck exam general surgery: Present: supple - Respiratory Respiratory exam: Present: CTAB - Cardiovascular Cardiovascular exam: Present: RRR, +S1, +S2 - GI/Abdominal GI/Abdominal exam: Present: soft, no peritoneal signs - Neurological Exam Neurological exam: Present: no focal deficits - Skin Skin exam: Present: intact - Patient Status Disposition: Transfer SNF Condition: Fair Overall status at discharge: patient is progressing back to baseline - Discharge Instructions Follow Up With: Jc Tsai MD [Primary Care Provider] - ([facility] will call patient at home with a date for her follow up appointment.) - Diet and Activity Activity: as per the cardiac rehab, as per physical therapy Diet: diabetic diet, low fat, low cholesterol - VTE Documentation of Mechanical Device: Intermittent pneumatic compression device <Alli Lopez - Last Filed: 02/16/18 16:13> Orders not resulted at time of discharge: Pending orders 02/12/18 09:36 Culture,Blood [BC] Stat 02/14/18 10:36 Culture,Urine [RM] Routine 02/17/18 04:00 Complete Blood Count [HEME] AM 0400 Comprehensive Metabolic Panel AM 0400 Date of Encounter: 02/16/18 - Discharge Diagnosis (1) DVT prophylaxis Status: Acute (2) Morbid obesity Status: Chronic (3) HTN (hypertension) (4) HLD (hyperlipidemia) Status: Chronic (5) Diastolic heart failure Status: Chronic (6) Ulcer of right heel Status: Acute (7) Type 2 diabetes mellitus Status: Chronic (8) Sepsis Status: Resolved Qualifiers: Sepsis type: sepsis due to unspecified organism Qualified Code(s): A41.9 - Sepsis, unspecified organism (9) HAP (hospital-acquired pneumonia) Status: Resolved (10) Acute on chronic respiratory failure with hypoxia and hypercapnia Status: Resolved (11) Acute blood loss anemia Status: Resolved (12) REGINALD treated with BiPAP Status: Chronic Hospital course: Ms. Magallanes is a 58 year old female - Time Spent with Patient Total time spent providing and/or coordinating discharge services: Date of admission: 01/30/18 18:32 Primary care physician: Jc Tsai MD Consults: 02/01/18 15:43 Consult to [facility] [CONS] Routine Reason for SW Consult: will need rehab at discharge 02/06/18 11:13 Consult to PICC team [Consult to Invasive Line Access Team] [CONS] Routine Reason for Consult: cellulitis, extermination supervisor abx needed Line Type: PICC 02/06/18 11:58 Consult to Invasive Line Access Team [CONS] Routine Reason for Consult: Picc Line Insertion Line Type: PICC PICC line indications: buttermaker continuous churn Med/Antibiotic 02/07/18 08:09 Consult to Gastroenterology [CONS] Routine Consulting Provider: Gastroenterology Isabella Reason for Consult: FOBT(+) Call Completed: No 02/12/18 16:44 Consult to Pulmonary Rehab [CONS] Routine Reason for Consult: worsening respiratory status on BiPAP Call Completed: Yes - Constitutional Vitals: Temp Pulse Resp BP Pulse Ox 97.6 F 74 17 143/58 96 02/16/18 15:36 02/16/18 15:36 02/16/18 15:36 02/16/18 15:36 02/16/18 15:36 - Attending Attestation Patient was seen and examined. I agree with the discharge summary as dictated above by the resident physician. Discharge plans and recommendations were made under my direct supervision.
--- NOTE | 2018-02-16 11:20 | Physician Discharge Referral ---
Extended[facility] Referral Info Provider in Charge after Transfer: PCP Institutional Level of Care: Skilled - Diagnosis (1) Sepsis Priority: Primary Status: Resolved (2) Ulcer of right heel Priority: Secondary Status: Acute (3) Acute blood loss anemia Priority: Secondary Status: Resolved (4) HAP (hospital-acquired pneumonia) Priority: Secondary Status: Resolved (5) Acute on chronic respiratory failure with hypoxia and hypercapnia Priority: Secondary Status: Resolved (6) DVT prophylaxis Priority: Secondary Status: Acute (7) Morbid obesity Priority: Secondary Status: Chronic (8) HTN (hypertension) Priority: Secondary (9) HLD (hyperlipidemia) Priority: Secondary Status: Chronic (10) Diastolic heart failure Priority: Secondary Status: Chronic (11) Type 2 diabetes mellitus Priority: Secondary Status: Chronic (12) REGINALD treated with BiPAP Priority: Secondary Status: Chronic Prognosis: Fair Aware of Diagnosis: Patient Aware of Prognosis: Patient - Transfer Medications Prescriptions: Furosemide [Lasix] 40 mg PO BID 30 Days #60 tab Pantoprazole Sodium [Protonix] 40 mg PO BID 30 Days #60 tablet. Sucralfate [Carafate] 1 gm PO 0730,1630 30 Days #60 tablet Home Medications: Atorvastatin [Lipitor] 40 mg PO HS 01/11/16 [History] Insulin ASPART [Novolog Flexpen] 6 - 14 unit SQ TID 01/11/16 [History] Latanoprost [Xalatan] 1 drop BOTH EYES HS 01/11/16 [History] Primidone [Mysoline] 25 - 50 mg PO BID PRN 01/11/16 [History] Ascorbic Acid [Vitamin C] 500 mg PO BID 03/25/16 [History] Docusate Sodium [Colace] 200 mg PO BID 03/25/16 [History] Furosemide [Lasix] 40 mg PO BID 12/06/16 [History] Fluticasone Propionate Nasal [Flonase] 2 spray NS DAILY #1 bottle 08/28/17 [Rx] Brimonidine Tartrate/Timolol [Combigan 0.2%-0.5% Eye Drops] 1 drop OP BID [History] Diltiazem HCl [Diltiazem 12Hr ER] 120 mg PO DAILY 11/10/17 [History] Esomeprazole Magnesium [Nexium] 40 mg PO DAILY 11/10/17 [History] Gentamicin Oint [Garamycin] 1 appl TP BID 11/10/17 [History] Ketoconazole 2% CRM [Nizoral Cream] 1 appl TP DAILY 11/10/17 [History] Ketorolac Tromethamine 1 drop OP QID 11/10/17 [History] Losartan Potassium [Cozaar] 100 mg PO DAILY 11/10/17 [History] Tizanidine HCl 4 mg PO TID 11/20/17 [History] Calcium Carbonate [Tums] 1,000 mg PO Q4HR PRN tab.chew 11/24/17 [Rx] Carvedilol [Coreg] 6.25 mg PO BIDWM tablet 11/24/17 [Rx] Lactobacillus Acidophilus [Acidophilus] 1 each PO BID #10 capsule 11/24/17 [Rx] Pregabalin [Lyrica] 75 mg PO BID 30 Days #60 capsule 11/24/17 [Rx] clonazePAM [Klonopin] 0.5 mg PO BID PRN 5 Days #10 tablet 11/24/17 [Rx] Gabapentin [Neurontin] 300 mg PO HS 01/17/18 [History] Insulin Glargine,Hum.rec.anlog [Basaglar Kwikpen U-100] 40 unit SQ BID 01/17/18 [History] Potassium Chloride [K-Tab ER] 20 meq PO QID 01/17/18 [History] Fosfomycin Tromethamine [Monurol] 3 gm PO Q48H 8 Days #4 packet 01/23/18 [Rx] Nystatin POWDER [Nystop] 1 appl TP BID bottle 01/23/18 [Rx] Ferrous Sulfate 325 mg PO BID 01/30/18 [History] Loratadine [Allergy Relief] 10 mg PO DAILY 01/30/18 [History] Pantoprazole Sodium [Protonix] 40 mg PO DAILY 01/30/18 [History] Polyethylene Glycol 3350 [MiraLAX] 17 gm PO DAILY 01/30/18 [History] Furosemide [Lasix] 40 mg PO BID 30 Days #60 tab 02/16/18 [Rx] Pantoprazole Sodium [Protonix] 40 mg PO BID 30 Days #60 tablet. 02/16/18 [Rx] Sucralfate [Carafate] 1 gm PO 0730,1630 30 Days #60 tablet 02/16/18 [Rx] Allergies/Adverse Reactions: 3 Allergy/AdvReac Type Severity Reaction Status Date / Time lisinopril [From Zestril] Allergy Rash Verified 01/17/18 13:50 - Respiratory Orders Oxygen / L per min Smoking Cessation: Smoking cessation has been advised. For more information, call the [place] Tobacco Quit Line at 8-314-JIBM-NOW. - Advance Directives Code Status: Full Code - Mobility Orders Bedrest - Rehabiliation Orders Rehab Potential: Fair Rehab Orders: ROM Exercises, Evaluation for Physical Therapy, Evaluation for Occupational Therapy - Diet Orders No Added Salt (MARGARETH), Cardiac CERTIFICATION: I certify that the transfer of the above named patient to an Extended Care Facility is necessary for the continuing treatment of the diagnosis listed. The above information is true and accurate reflection of patient's current condition. Confidential - Redisclosure prohibited without a patient's written consent.
[2018-02-16] MEDS: Insulin LISPRO 300 UNITS/3 ML VIAL SQ SCH ×4 (11:30→22:56)
[2018-02-16] MEDS: Diltiazem CD (24hr) 120 MG CAPSULE PO SCH (11:50)
--- NOTE | 2018-02-16 12:52 | Event Note ---
Date of Encounter: 02/16/18 Time of Encounter: 12:49 Patient was seen and examined. I agree with the note as written by the resident physician. H/H is stable. s/p EGD 02/15 and a non-bleeding duodenal ulcer was injected. Remains on 3-4 L O2. Had to be transferred to ICU for hypercapnia and resp acidosis. Needed Bipap. Diuresed and transferred out 02/14. Afebrile. patient is here with sepsis stemming from right lower ext ulcer, cellulitis, and HCAP. s /p I&D in OR on 02/01. cultures + for MDR klebseilla, proteus, and now VRE. multiple abx since admission and currently on zyvox only. had 14 days of zosyn. Hemodynamically stable. O2 needs at 4L. Patient has had a drop in H/H and FOBT is +. Needed PRBCs transfusion while here for hgb <7. Hgb down to 6.1 today. Seen by GI and EGD showed small blood clot and oozing in prepyloric stomach as well as one non-bleeding cratered duodenal ulcer with no stigamta of bleeding. GEN: NAD CVS: RRR. S1, S2, No m/r/g RESP: CTAB ABD: Soft, NT, ND, +BS EXT: 1+ edema. 2+ DP. Lower extremities wrapped bilaterally NEURO: Nonfocal s/p EGD with non-bleeding duodenal ulcer injected. H/H stable this am. Can work on d/c if H/H is stable. c/w coreg and cardizem if bp allows switch to oral lasix Patient is net neg 16L for stay. She is now weighing about 15 kg less than admission. I think she has been adequately diuresed Appreciate pulm's help Appreciate ID's help c/w zyvox for now. zosyn stopped afebrile Repeat Blood cx neg. UA cultures neg Wean O2 as tolerated Oral PPi Glycemic control DVT ppx
[2018-02-16] MEDS: Insulin DETEMIR 100 UNIT/ML X5UNITS SQ SCH (21:08)
[2018-02-16] MEDS: Latanoprost 2.5 ML BOTTLE BOTH EYES SCH (21:09)
[2018-02-17 04:55] LABS: Basophils # 0.1 K/mcL (0.0-0.2); Basophils % 0.6 %; Eosinophils # 0.1 K/mcL (0.0-0.6); Eosinophils % 1.5 %; Hematocrit 28.2 % (35.3-44.9); Hemoglobin 8.9 g/dL (11.5-15.4); Immature Granulocytes % 0.2 % (0-4); Lymphocytes # 1.9 K/mcL (0.6-4.6); Lymphocytes % 22.9 %; Mean Corpuscular HGB Conc 31.6 g/dL (31.6-35.5); Mean Corpuscular Hemoglobin 28.5 pg (28.0-33.3); Mean Corpuscular Volume 90.4 fL (83.0-100.0); Mean Platelet Volume 12.3 fL (9.4-12.4); Monocytes # 0.6 K/mcL (0.0-1.3); Monocytes % 6.7 %; Neutrophils # 5.6 K/mcL (1.6-8.9); Platelet Count 188 K/mcL (140-400); Red Blood Count 3.12 M/mcL (3.82-4.97); Red Cell Distribution Width 18.2 % (11.5-14.5); Segmented Neutrophils % 68.1 %
[2018-02-17 05:12] LABS: Alanine Aminotransferase 7 Units/L (7-52); Albumin 2.6 g/dL (3.5-5.7); Albumin/Globulin Ratio 0.7 (1.1-2.2); Alkaline Phosphatase 53 Units/L (34-104); Aspartate Amino Transferase 13 Units/L (13-39); BUN/Creatinine Ratio 48 (6-26); Bilirubin,Total 0.3 mg/dL (0.3-1.0); Blood Urea Nitrogen 38 mg/dL (6-20); Calcium 8.5 mg/dL (8.6-10.3); Carbon Dioxide 37 mEq/L (23-29); Chloride 102 mEq/L (98-107); Globulin 3.8 g/dL (2.4-3.5); Glucose 106 mg/dL (70-105); Osmolality,Calculated 303 (280-300); Potassium 3.2 mEq/L (3.5-5.1); Sodium 142 mEq/L (136-145); Total Protein 6.4 g/dL (6.4-8.9); eGFR For Non-African Americans > 60 (> 60)
[2018-02-17] MEDS: Pantoprazole 40 MG VIAL IVP SCH (06:28)
--- NOTE | 2018-02-17 07:56 | Event Note ---
Date of Encounter: 02/17/18 Time of Encounter: 07:53 Patient was seen and examined. I agree with the note as written by the resident physician. H/H is stable. s/p EGD 02/15 and a non-bleeding duodenal ulcer was injected. Remains on 3-4 L O2. Had to be transferred to ICU for hypercapnia and resp acidosis. Needed Bipap. Diuresed and transferred out 02/14. Afebrile. patient is here with sepsis stemming from right lower ext ulcer, cellulitis, and HCAP. s /p I&D in OR on 02/01. cultures + for MDR klebseilla, proteus, and now VRE. multiple abx since admission and currently on zyvox only. had 14 days of zosyn. Hemodynamically stable. O2 needs at 4L. Patient has had a drop in H/H and FOBT is +. Needed PRBCs transfusion while here for hgb <7. Hgb 8.9. Seen by GI and EGD showed small blood clot and oozing in prepyloric stomach as well as one non- bleeding cratered duodenal ulcer with no stigamta of bleeding. Repeat EGD showed non-bleeding duodenal ulcer injected. GEN: NAD CVS: RRR. S1, S2, No m/r/g RESP: CTAB ABD: Soft, NT, ND, +BS EXT: 1+ edema. 2+ DP. Lower extremities wrapped bilaterally NEURO: Nonfocal Awaiting placement H/H stable. c/w coreg and cardizem switch to oral lasix Patient is net neg 16L for stay. She is now weighing about 15 kg less than admission. I think she has been adequately diuresed Appreciate pulm's help Appreciate ID's help c/w zyvox for now. zosyn stopped afebrile Repeat Blood cx neg. UA cultures neg Wean O2 as tolerated Oral PPi Glycemic control DVT ppx Can be discharged once placement is established
[2018-02-17] MEDS: Insulin LISPRO 300 UNITS/3 ML VIAL SQ SCH ×3 (08:58→16:49)
[2018-02-17] MEDS: Furosemide 40 MG/4 ML VIAL IVP SCH (08:58)
[2018-02-17] MEDS ORDERED: NON-FORMULARY MEDICATION 1 EACH EACH (Pantoprazole Sodium [Protonix] 40 MG) PO SCH (09:00)
[2018-02-17] MEDS ORDERED: Fluticasone Propionate Nasal 50 MCG/SPRAY BOTTLE NS SCH (09:00)
--- NOTE | 2018-02-17 09:10 | Internal Med Progress Note ---
Date of Encounter: 02/17/18 Time of Encounter: 08:15 - Assessment and plan (1) Sepsis Current Visit: Yes Status: Resolved Assessment and plan: On admition met SIRS criteria = leukocytosis and tachycardia -possible pneumonia, bilateral leg cellulitis, right foot ulcer. -t today 98.3, HR 86, BP 153/63 Plan: -sepsis has resolved -continue to conitor CBC until discharge -day 05/06 Zyvox PO Qualifiers: Sepsis type: sepsis due to unspecified organism Qualified Code(s): A41.9 - Sepsis, unspecified organism (2) Ulcer of right heel Current Visit: Yes Status: Acute Assessment and plan: s/p debridement of right heel with podiatry. -Wound cultures growing ESBL Klebsiella, Proteus penneri, gram (+) cocci -WBC count is 12.3, Plan: -PTOT recommended ECF, social director on board. Pt to be d/c to SNF when stable -wound vac in place at 125mmHg suction -ID discontinued zosyn, since pt has been on IV Zosyn for 2 wks -Continue PO Zyvox for +VRE wound cultures -day 05/06 for Zyvox PO as per ID, will discharge the patient on Zyvox. (3) Acute blood loss anemia Current Visit: Yes Status: Resolved Assessment and plan: Pt was found to have a nonbleeding duodenal ulcer by GI that was sclerosed with epinephrine -pt is currently hemodynamically stable -Hemogloin is 8.9 today, H&H has been stable -BP 153/63 before morning medications -pt is on Omeprazole PO and carafate -will be discharged on carefate 1g AM/PM and protonix 40mg BID (4) HAP (hospital-acquired pneumonia) Current Visit: Yes Status: Resolved Assessment and plan: Zosyn d/c by ID -resolved (5) Acute on chronic respiratory failure with hypoxia and hypercapnia Current Visit: Yes Status: Resolved Assessment and plan: Pt was found to be slumped over, lethargic and not responding to questions last Monday -she was moved to ICU and put on BiPAP -CXR 02/12 showed moderate pulmonary vascular congestion , small bilat pleural effusions, moderate left basilar atelectasis, small right basilar atelectasis, some improvement in chest appearance -O2 100% on BiPAP, on 1L O2 while eating -ABG today : pH 7.44, pCO2 56, pO2 76 -CXR (02/14) showed pulmonary edema Plan: -IV Lasix IVP daily 40mg -Fluid restriction 1.5L -Strict I&O's -monitor ABG, CBC, CMP -continue BiPAP as per respiratory (6) DVT prophylaxis Current Visit: Yes Status: Acute Assessment and plan: SCD (7) Morbid obesity Current Visit: No Status: Chronic Assessment and plan: BMI 43 -encourage low fat, low cholesterol, diabetic diet -pt is noncompliant (8) HTN (hypertension) Current Visit: Yes Assessment and plan: On Coreg and Losartan -BP today 153/63 -well controlled -consider labetolol IVP if systolic >160, although this reading was before daily meds (9) HLD (hyperlipidemia) Current Visit: No Status: Chronic Assessment and plan: c/w statin. -risk reduction counselor on low fat, low cholesterol diet (10) Diastolic heart failure Current Visit: Yes Status: Chronic Assessment and plan: -TTE in 11/2016 showed LVEF 60%, concentric LVH, moderate diastolic dysfxn -pt should eat a heart healthy diet and lose weight -pt has no reports of chest pain, SOB, dyspnea at this time Plan: -c/w 40mg IV lasix daily -continue with beta blockers -pt is on telemetry (11) Type 2 diabetes mellitus Current Visit: Yes Status: Chronic Assessment and plan: cw SSI and levemir 30 units QHS. Accucheks. BG this morning 106 (12) REGINALD treated with BiPAP Current Visit: Yes Status: Chronic Assessment and plan: BiPAP settings as per respiratory -06/01 on 4L -will be discharged with bipap - Time Spent With Patient Total time spent is greater than 50% in coordination of care (as documented) at patient's floor/unit and/or counseling patient: less than 15 minutes - Subjective Interval history: Pt is seen at bedside. She is hospital day 19, s/p right diabetic foot ulcer debridement by thermite welder. -The patient is able to appropriately answer questions today. She is talkative. -She is on 100% O2 4L NC. -She is responsive, AOx3 -Pt reports that she has no chest pain, SOB, wheezing, abdominal pain, N/V/D, headache, or cough. -pt has a Hg of 8.9. H&H has been stable -BP 153/63 -HR 86 -ID discontinued her Zosyn since she has completed 2 weeks of IV abx, they are continuing PO Zyvox for the VRE wound cx. She is day 10 of 14 for the Zyvox -pt is a poorly controlled diabetic. Levemir at 30U, her fasting BG is 106 this morning Fluids - held Electrolytes - potassium 3.2, pt given PO 40meQ TID today Nutrition - tolerating cardiac diet GI prophylaxis - Protonix 40mg BID PO, carafate AM and PM DVT prophylaxis - SCD - Constitutional Vitals: Temp Pulse Resp BP Pulse Ox 98.5 F 89 18 166/63 96 02/17/18 07:26 02/17/18 07:26 02/17/18 07:26 02/17/18 07:26 02/17/18 07:26 General appearance: Present: cooperative, morbidly obese, answers questions appropriately - Head Head exam: Present: normal inspection - Respiratory Respiratory exam: Present: CTAB - Cardiovascular Cardiovascular exam: Present: RRR, +S1, +S2 - GI/Abdominal GI/Abdominal exam: Present: soft, no peritoneal signs - Skin Skin exam: Present: intact Internal Medicine: Result - Labs CBC & Chem 7: 02/17/18 04:22 02/17/18 04:22 Labs: Short CBC 02/17/18 Range/Units 04:22 WBC 8.3 (4.3-11.1) K/mcL Hgb 8.9 L (11.5-15.4) g/dL Hct 28.2 L (35.3-44.9) % Plt Count 188 (140-400) K/mcL Neutrophils # 5.6 (1.6-8.9) K/mcL BMP 02/17/18 04:22 Sodium 142 Potassium 3.2 L Chloride 102 Carbon Dioxide 37 H BUN 38 H Creatinine 0.80 Glucose 106 H Calcium 8.5 L Liver Function 02/17/18 Range/Units 04:22 Total Bilirubin 0.3 (0.3-1.0) mg/dL AST 13 (13-39) Units/L ALT 7 (7-52) Units/L Alkaline Phosphatase 53 (34-104) Units/L Albumin 2.6 L (3.5-5.7) g/dL - ABG Interpretation ABG results: ABG ABG pH 7.44 pH Units (7.32-7.45) 02/15/18 04:49 ABG pCO2 56 mmHg (35-45) H 02/15/18 04:49 ABG pO2 76 mmHg (85-104) L 02/15/18 04:49 ABG O2 Saturation 95 % (95-98) 02/15/18 04:49 PT/INR, D-dimer PT 13.8 Seconds (9.4-12.1) H 01/29/18 17:11 - VTE Documentation of Mechanical Device: Intermittent pneumatic compression device Consult Discharge Plan - Plan Referrals: Jc Tsai MD [Primary Care Provider] - ([facility] will call patient at home with a date for her follow up appointment.) Prescriptions: Furosemide [Lasix] 40 mg PO BID 30 Days #60 tab Pantoprazole Sodium [Protonix] 40 mg PO BID 30 Days #60 tablet. Sucralfate [Carafate] 1 gm PO 0730,1630 30 Days #60 tablet
[2018-02-17] MEDS: Sucralfate 1 GM TABLET PO SCH ×2 (10:40→16:48)
[2018-02-17] MEDS: Lactobacillus 1 EACH CAP.SPRINK PO SCH ×2 (10:40→20:41)
[2018-02-17] MEDS: Thiamine (B-1) 100 MG TABLET PO SCH (10:40)
[2018-02-17] MEDS: Ondansetron 4 MG/2 ML VIAL IVP PRN ×2 (10:45→21:42)
[2018-02-17] MEDS: Diltiazem CD (24hr) 120 MG CAPSULE PO SCH (11:44)
[2018-02-17] MEDS: Linezolid 600 MG TABLET PO SCH ×2 (11:44→20:41)
[2018-02-17] MEDS: tiZANidine 4 MG TABLET PO SCH ×3 (11:44→20:42)
[2018-02-17] MEDS: Potassium Citrate 10 MEQ TABLET.ER PO SCH ×2 (11:44→20:41)
[2018-02-17] MEDS ORDERED: Polyethylene Glycol 3350 255 GM POWDER PO ONE (20:31)
[2018-02-17] MEDS ORDERED: Insulin LISPRO 300 UNITS/3 ML VIAL SQ SCH (20:33)
[2018-02-17] MEDS ORDERED: Insulin DETEMIR 100 UNIT/ML X5UNITS SQ SCH (20:33)
[2018-02-17] MEDS ORDERED: Pantoprazole 40 MG VIAL IVP SCH (20:35)
[2018-02-17] MEDS: Latanoprost 2.5 ML BOTTLE BOTH EYES SCH (20:41)
--- NOTE | 2018-02-17 20:47 | Event Note ---
Date of Encounter: 02/17/18 Time of Encounter: 20:00 Notified by RN at 20:00 that Ms. Magallanes has been having loose, black stools for several days now which has acutely gotten worse to the point where she has a large pool of black tarry liquid stool extending all the way to the foot of her bed. Of note, patient had EGD on 02/15/18 revealing 1 non-bleeding cratered duodenal ulcer in the second portion of the duodenum, the lesion was 8 mm in largest dimension, and this area was successfully injected with epinephrine for hemostasis. Estimated blood loss was minimal. Review of I and O's reveals patient has been having black, liquid stools since 02/06/18 with tarry appearance since 02/11/18. Patient's blood pressure is 100/44 status post receiving 8 units PRBCs during current hospital stay. Her hemoglobin has increased from 6.1 to 8.9. Case discussed with Dr. Wiley, on-call surgeon for GI bleed who recommended starting patient on MiraLAX bowel prep for possible endoscopy in AM. Rectal tube ordered secondary to worsening immobility, morbidly obese body habitus, and difficulty getting out of bed for bowel movements. Will continue to trend H&H and resume Protonix IV. Notified by RN that patient's repeat blood pressure was 73/38 at 21:00 and patietn reports dizziness. Will give 50cc NS IVF bolus. She has a functional powerglide line in place. Stat H&H and type and screen ordered. Continue close monitoring. Plan discussed with and agreed upon with attending Dr. Kingsley.
[2018-02-17] MEDS ORDERED: 0.9 % Sodium Chloride 500 ML IVC ONE (21:06)
[2018-02-17 21:48] LABS: Hematocrit 20.3 % (35.3-44.9)
[2018-02-17 21:50] LABS: Hemoglobin 6.4 g/dL (11.5-15.4)
[2018-02-17] MEDS ORDERED: 0.9 % Sodium Chloride 250 ML ONE (23:23)
[2018-02-18] MEDS ORDERED: 0.9 % Sodium Chloride 500 ML IVC ONE ×3 (00:29→01:40)
[2018-02-18] MEDS ORDERED: Primidone 50 MG TABLET PO PRN (00:57)
[2018-02-18] MEDS ORDERED: Naloxone 0.4 MG/ML INJ IVP PRN ×2 (00:57→15:08)
[2018-02-18] MEDS ORDERED: Dextrose Gel 15 GM/37.5 ML TUBE PO PRN ×4 (00:57→15:08)
[2018-02-18] MEDS ORDERED: Ipratropium/Albuterol Neb 3 ML IH PRN ×2 (00:57→15:08)
[2018-02-18] MEDS ORDERED: Ondansetron 4 MG/2 ML VIAL IVP PRN (00:57)
[2018-02-18] MEDS ORDERED: Acetaminophen 325 MG TABLET PO PRN (00:57)
[2018-02-18] MEDS ORDERED: *HR* Dextrose 50 % in Water (Syg) 50 ML SYRINGE IVP PRN ×2 (00:57→15:08)
[2018-02-18] MEDS ORDERED: *HR* Labetalol 20 MG/4 ML SYRINGE IVP PRN (00:57)
[2018-02-18] MEDS ORDERED: D5% in Water 1,000 ML IVC PRN ×2 (00:57→15:08)
[2018-02-18] MEDS ORDERED: *HR* OxyCODONE Immed Rel 5 MG TABLET PO PRN (00:57)
[2018-02-18] MEDS ORDERED: Desitin (Zinc Oxide) 56 GM TUBE TP SCH (01:30)
[2018-02-18] MEDS ORDERED: 0.9 % Sodium Chloride 500 ML ONE (01:49)
[2018-02-18] MEDS ORDERED: 0.9 % Sodium Chloride 250 ML ONE (02:09)
[2018-02-18] MEDS ORDERED: Albumin 25% 12.5gm/50mL 12.5 GM/50 ML IV.SOLN IVPB ONE (02:30)
[2018-02-18] MEDS: Insulin LISPRO 300 UNITS/3 ML VIAL SQ SCH ×5 (02:47→23:52)
[2018-02-18] MEDS ORDERED: Pantoprazole 40 MG VIAL IVP SCH (06:00)
[2018-02-18 06:06] LABS: Basophils # 0.1 K/mcL (0.0-0.2); Basophils % 0.3 %; Eosinophils # 0.1 K/mcL (0.0-0.6); Eosinophils % 0.6 %; Hematocrit 25.3 % (35.3-44.9); Hemoglobin 8.2 g/dL (11.5-15.4); Immature Granulocytes % 0.4 % (0-4); Lymphocytes # 3.1 K/mcL (0.6-4.6); Lymphocytes % 18.6 %; Mean Corpuscular HGB Conc 32.4 g/dL (31.6-35.5); Mean Corpuscular Hemoglobin 29.1 pg (28.0-33.3); Mean Corpuscular Volume 89.7 fL (83.0-100.0); Mean Platelet Volume 11.7 fL (9.4-12.4); Monocytes # 1.1 K/mcL (0.0-1.3); Monocytes % 6.8 %; Platelet Count 171 K/mcL (140-400); Red Blood Count 2.82 M/mcL (3.82-4.97); Segmented Neutrophils % 73.3 %
[2018-02-18 06:20] LABS: INR 1.7; Prothrombin Time 19.4 Seconds (9.4-12.1)
[2018-02-18 06:30] LABS: Potassium 4.1 mEq/L (3.5-5.1)
[2018-02-18 06:31] LABS: Albumin 2.6 g/dL (3.5-5.7); Albumin/Globulin Ratio 0.8 (1.1-2.2); Bilirubin,Total 0.5 mg/dL (0.3-1.0); Globulin 3.2 g/dL (2.4-3.5); Magnesium 1.7 mg/dL (1.6-2.6); Total Protein 5.8 g/dL (6.4-8.9)
[2018-02-18] MEDS ORDERED: Insulin LISPRO 300 UNITS/3 ML VIAL SQ SCH ×3 (07:30→21:00)
[2018-02-18] MEDS ORDERED: Sucralfate 1 GM TABLET PO SCH (07:30)
[2018-02-18] MEDS ORDERED: Pantoprazole 40 MG in 0.9 % Sodium Chloride Mini Bag 100 ML IVC SCH (08:30)
[2018-02-18] MEDS ORDERED: Furosemide 40 MG/4 ML VIAL IVP SCH (09:00)
[2018-02-18] MEDS ORDERED: Linezolid 600 MG TABLET PO SCH (09:00)
[2018-02-18] MEDS ORDERED: Thiamine (B-1) 100 MG TABLET PO SCH (09:00)
[2018-02-18] MEDS ORDERED: Potassium Citrate 10 MEQ TABLET.ER PO SCH (09:00)
[2018-02-18] MEDS ORDERED: Fluticasone Propionate Nasal 50 MCG/SPRAY BOTTLE NS SCH (09:00)
[2018-02-18] MEDS ORDERED: Lactobacillus 1 EACH CAP.SPRINK PO SCH (09:00)
[2018-02-18] MEDS ORDERED: Diltiazem CD (24hr) 120 MG CAPSULE PO SCH (09:00)
[2018-02-18] MEDS ORDERED: tiZANidine 4 MG TABLET PO SCH ×2 (09:00→21:00)
--- NOTE | 2018-02-18 09:24 | Event Note ---
Date of Encounter: 02/18/18 Time of Encounter: 09:21 Patient was seen and examined. I agree with the note as written by the resident physician. Patient was transferred to the ICU last night due to back tarry stools and a drop in her hemoglobin causing hypotension requiring IV fluids and 2 units of PRBCs. Continues to have tarry stools but blood pressure is stable now and hemoglobin is up to 8.2. The patient is s/p EGD 02/15 and a non-bleeding duodenal ulcer was injected. Remains on 3-4 L O2. Had to be transferred to ICU for hypercapnia and resp acidosis. Needed Bipap. Diuresed and transferred out . Afebrile. patient is here with sepsis stemming from right lower ext ulcer , cellulitis, and HCAP. s/p I&D in OR on 02/01. cultures + for MDR klebseilla, proteus, and now VRE. multiple abx since admission and currently on zyvox only. had 14 days of zosyn. Hemodynamically stable. O2 needs at 4L. Patient has had a drop in H/H and FOBT is +. Needed PRBCs transfusion while here for hgb <7. Hgb 8.9. Seen by GI and EGD showed small blood clot and oozing in prepyloric stomach as well as one non-bleeding cratered duodenal ulcer with no stigamta of bleeding. Repeat EGD showed non-bleeding duodenal ulcer injected. GEN: NAD CVS: RRR. S1, S2, No m/r/g RESP: CTAB ABD: Soft, NT, ND, +BS EXT: 1+ edema. 2+ DP. Lower extremities wrapped bilaterally NEURO: Nonfocal GI is contacted with plans to do an EGD and colonoscopy tomorrow. Protonix drip. Hold antihypertensives. Continue with oral lasix Appreciate ID's help Monitor leukocytosis has a jump in white count today. This is possibly oral reactive with some dehydrational component due to periods of hypotension. Patient also has mild DOROTHEA as well. I suspect this would improve after the transfusion and IV fluids. Labs in the morning. c/w zyvox for now. zosyn stopped afebrile Repeat Blood cx neg. UA cultures neg Wean O2 as tolerated Glycemic control DVT ppx
--- NOTE | 2018-02-18 09:54 | Internal Med Progress Note ---
Date of Encounter: 02/18/18 Time of Encounter: 09:00 - Assessment and plan (1) Sepsis Current Visit: Yes Status: Resolved Assessment and plan: On admition met SIRS criteria = leukocytosis and tachycardia -possible pneumonia, bilateral leg cellulitis, right foot ulcer. -t today 97.9, HR 75, BP 133/57 -WBC count today is 16.4, up from 8.3 Plan: -sepsis has resolved -continue to conitor CBC until discharge -day 06/06 Zyvox PO -consider sending stool for c dif tomorrow if WBC doesn't improve and if loose stools continue -WBC count is infxn vs hemoconcentration Qualifiers: Sepsis type: sepsis due to unspecified organism Qualified Code(s): A41.9 - Sepsis, unspecified organism (2) Ulcer of right heel Current Visit: Yes Status: Acute Assessment and plan: s/p debridement of right heel with podiatry. -Wound cultures growing ESBL Klebsiella, Proteus penneri, gram (+) cocci -WBC count is 16.3 today, infxn vs hemoconcentration Plan: -PTOT recommended ECF, social worker psychiatric on board. Pt to be d/c to SNF when stable -wound vac in place at 125mmHg suction -ID discontinued zosyn, since pt has been on IV Zosyn for 2 wks -Continue PO Zyvox for +VRE wound cultures -day 06/06 for Zyvox PO as per ID, will discharge the patient on Zyvox. (3) Acute blood loss anemia Current Visit: Yes Status: Acute Assessment and plan: Pt was found to have a nonbleeding duodenal ulcer by GI that was sclerosed with epinephrine -pt is currently hemodynamically stable -Hemogloin is 8.2 today -BP 133/57 -will be discharged on carefate 1g AM/PM and protonix 40mg BID Last night pt was found to have a hemoglobin of 6.4. She was typed and crossed and then transfused 2U pRBC -GI was consulted for possible scope Plan: -EGD / colonoscopy tomorrow by GI -Protonix drip. -Hold antihypertensives. -serial H&H q6hr -CBC in AM (4) HAP (hospital-acquired pneumonia) Current Visit: Yes Status: Resolved Assessment and plan: Zosyn d/c by ID -resolved (5) Acute on chronic respiratory failure with hypoxia and hypercapnia Current Visit: Yes Status: Resolved Assessment and plan: Pt was found to be slumped over, lethargic and not responding to questions last Monday -she was moved to ICU and put on BiPAP -CXR 02/12 showed moderate pulmonary vascular congestion , small bilat pleural effusions, moderate left basilar atelectasis, small right basilar atelectasis, some improvement in chest appearance -O2 100% on BiPAP, on 1L O2 while eating -ABG (02/15) : pH 7.44, pCO2 56, pO2 76 -CXR (02/14) showed pulmonary edema Plan: -IV Lasix IVP daily 40mg -Fluid restriction 1.5L -Strict I&O's -monitor ABG, CBC, CMP -continue BiPAP as per respiratory (6) DVT prophylaxis Current Visit: Yes Status: Acute Assessment and plan: SCD (7) Morbid obesity Current Visit: No Status: Chronic Assessment and plan: BMI 43 -encourage low fat, low cholesterol, diabetic diet -pt is noncompliant (8) HTN (hypertension) Current Visit: Yes Assessment and plan: On Coreg and Losartan -BP today 133/57 -well controlled -consider labetolol IVP if systolic >160 (9) HLD (hyperlipidemia) Current Visit: No Status: Chronic Assessment and plan: c/w statin. -academic counselor on low fat, low cholesterol diet (10) Diastolic heart failure Current Visit: Yes Status: Chronic Assessment and plan: -TTE in 11/2016 showed LVEF 60%, concentric LVH, moderate diastolic dysfxn -pt should eat a heart healthy diet and lose weight -pt has no reports of chest pain, SOB, dyspnea at this time Plan: -c/w 40mg IV lasix daily -continue with beta blockers -pt is on telemetry (11) Type 2 diabetes mellitus Current Visit: Yes Status: Chronic Assessment and plan: cw SSI and levemir 30 units QHS. Accucheks. BG this morning 158 (12) REGINALD treated with BiPAP Current Visit: Yes Status: Chronic Assessment and plan: BiPAP settings as per respiratory -06/01 on 4L -will be discharged with bipap - Time Spent With Patient Total time spent is greater than 50% in coordination of care (as documented) at patient's floor/unit and/or counseling patient: less than 15 minutes - Subjective Interval history: Pt is seen at bedside. She is hospital day 20, s/p right diabetic foot ulcer debridement by car changer. -The patient is able to appropriately answer questions today. She is talkative. -She is on 99% NC -She is responsive, AOx3 -Pt reports that she has no chest pain, SOB, wheezing, abdominal pain, N/V/D, headache, or cough. Last night pt had to be moved to ICU -she had a drop in her hemoglobin to 6.4 and had tarry black stool from her "feet to her abdomen" -she was given 500cc bolus x 3, typed and crossed and given 2U pRBC -overnight resident talked to GI, they put her on protonix drip and will scope her tomorrow egd/colonoscopy -pt has a Hg of 8.2. Will check an H&H q6hr -BP 133/57 -HR 75 -ID discontinued her Zosyn since she has completed 2 weeks of IV abx, they are continuing PO Zyvox for the VRE wound cx. She is day for the Zyvox -pt is a poorly controlled diabetic. Levemir at 30U, her fasting BG is 158 this morning Fluids - held Electrolytes - all WNL Nutrition - currently NPO GI prophylaxis - Protonix 40mg BID IVP, carafate AM and PM DVT prophylaxis - SCD - Constitutional Vitals: Temp Pulse Resp BP Pulse Ox 97.5 F L 75 30 151/63 100 02/18/18 08:15 02/18/18 08:49 02/18/18 08:49 02/18/18 08:49 02/18/18 08:49 General appearance: Present: cooperative, morbidly obese, answers questions appropriately - Respiratory Respiratory exam: Present: CTAB - Cardiovascular Cardiovascular exam: Present: RRR, +S1, +S2 - GI/Abdominal GI/Abdominal exam: Present: soft, no peritoneal signs - Skin Skin exam: Present: intact Internal Medicine: Result - Labs CBC & Chem 7: 02/18/18 05:55 02/18/18 05:55 Labs: Short CBC 02/17/18 02/18/18 Range/Units 21:35 05:55 WBC 16.4 H D (4.3-11.1) K/mcL Hgb 6.4 L D 8.2 L D (11.5-15.4) g/dL Hct 20.3 L 25.3 L (35.3-44.9) % Plt Count 171 (140-400) K/mcL Neutrophils # 12.0 H (1.6-8.9) K/mcL BMP 02/18/18 05:55 Sodium 138 Potassium 4.1 Chloride 102 Carbon Dioxide 33 H BUN 63 H Creatinine 1.23 H Glucose 158 H Calcium 8.0 L Liver Function 02/18/18 Range/Units 05:55 Total Bilirubin 0.5 (0.3-1.0) mg/dL AST 10 L (13-39) Units/L ALT 6 L (7-52) Units/L Alkaline Phosphatase 49 (34-104) Units/L Albumin 2.6 L (3.5-5.7) g/dL - ABG Interpretation ABG results: ABG ABG pH 7.44 pH Units (7.32-7.45) 02/15/18 04:49 ABG pCO2 56 mmHg (35-45) H 02/15/18 04:49 ABG pO2 76 mmHg (85-104) L 02/15/18 04:49 ABG O2 Saturation 95 % (95-98) 02/15/18 04:49 PT/INR, D-dimer PT 19.4 Seconds (9.4-12.1) H 02/18/18 05:55 - VTE Documentation of Mechanical Device: Intermittent pneumatic compression device Consult Discharge Plan - Plan Referrals: Jc Tsai MD [Primary Care Provider] - ([facility] will call patient at home with a date for her follow up appointment.) Prescriptions: Furosemide [Lasix] 40 mg PO BID 30 Days #60 tab Pantoprazole Sodium [Protonix] 40 mg PO BID 30 Days #60 tablet. Sucralfate [Carafate] 1 gm PO 0730,1630 30 Days #60 tablet
[2018-02-18 10:46] LABS: Hematocrit 26.7 % (35.3-44.9); Hemoglobin 8.6 g/dL (11.5-15.4)
[2018-02-18] MEDS: Pantoprazole 40 MG in 0.9 % Sodium Chloride Mini Bag 100 ML IVC SCH ×2 (16:13→21:02)
[2018-02-18] MEDS ORDERED: *HR* FentaNYL (PF) 100 MCG/2 ML VIAL IVP ONE (17:26)
[2018-02-18] MEDS: Lactobacillus 1 EACH CAP.SPRINK PO SCH (19:37)
[2018-02-18] MEDS: Primidone 50 MG TABLET PO PRN (19:38)
[2018-02-18] MEDS: Potassium Citrate 10 MEQ TABLET.ER PO SCH (19:39)
[2018-02-18] MEDS: Linezolid 600 MG TABLET PO SCH (19:39)
[2018-02-18] MEDS: Ondansetron 4 MG/2 ML VIAL IVP PRN (19:47)
[2018-02-18] MEDS: Insulin DETEMIR 100 UNIT/ML X5UNITS SQ SCH (20:14)
[2018-02-18] MEDS ORDERED: Insulin DETEMIR 100 UNIT/ML X5UNITS SQ SCH (21:00)
[2018-02-18] MEDS ORDERED: Latanoprost 2.5 ML BOTTLE BOTH EYES SCH (21:00)
[2018-02-18] MEDS: *HR* OxyCODONE Immed Rel 5 MG TABLET PO PRN (21:03)
[2018-02-18] MEDS: Latanoprost 2.5 ML BOTTLE BOTH EYES SCH (21:03)
[2018-02-19] MEDS: Pantoprazole 40 MG in 0.9 % Sodium Chloride Mini Bag 100 ML IVC SCH ×5 (01:45→20:59)
[2018-02-19] MEDS: *HR* OxyCODONE Immed Rel 5 MG TABLET PO PRN (02:57)
[2018-02-19 04:50] LABS: Basophils % 0.4 %; Eosinophils # 0.2 K/mcL (0.0-0.6); Eosinophils % 1.9 %; Hematocrit 25.1 % (35.3-44.9); Hemoglobin 8.1 g/dL (11.5-15.4); Immature Granulocytes % 0.3 % (0-4); Lymphocytes # 2.2 K/mcL (0.6-4.6); Lymphocytes % 24.3 %; Mean Corpuscular HGB Conc 32.3 g/dL (31.6-35.5); Mean Corpuscular Hemoglobin 28.9 pg (28.0-33.3); Mean Corpuscular Volume 89.6 fL (83.0-100.0); Mean Platelet Volume 11.8 fL (9.4-12.4); Monocytes # 0.5 K/mcL (0.0-1.3); Monocytes % 5.2 %; Neutrophils # 6.2 K/mcL (1.6-8.9); Platelet Count 159 K/mcL (140-400); Red Cell Distribution Width 17.2 % (11.5-14.5); Segmented Neutrophils % 67.9 %
[2018-02-19 05:07] LABS: BUN/Creatinine Ratio 44 (6-26); Blood Urea Nitrogen 42 mg/dL (6-20); Calcium 8.3 mg/dL (8.6-10.3); Carbon Dioxide 31 mEq/L (23-29); Chloride 104 mEq/L (98-107); Glucose 92 mg/dL (70-105); Osmolality,Calculated 302 (280-300); Potassium 4.4 mEq/L (3.5-5.1); Sodium 141 mEq/L (136-145); eGFR For Non-African Americans 60 (> 60)
[2018-02-19] MEDS: Insulin LISPRO 300 UNITS/3 ML VIAL SQ SCH ×4 (05:50→23:21)
[2018-02-19] MEDS: Lactobacillus 1 EACH CAP.SPRINK PO SCH ×2 (07:58→21:03)
[2018-02-19] MEDS: Potassium Citrate 10 MEQ TABLET.ER PO SCH ×2 (07:59→20:58)
[2018-02-19] MEDS: Linezolid 600 MG TABLET PO SCH ×2 (07:59→19:36)
[2018-02-19] MEDS: Thiamine (B-1) 100 MG TABLET PO SCH (07:59)
[2018-02-19] MEDS: Diltiazem CD (24hr) 120 MG CAPSULE PO SCH (07:59)
[2018-02-19] MEDS: Fluticasone Propionate Nasal 50 MCG/SPRAY BOTTLE NS SCH (08:00)
--- NOTE | 2018-02-19 08:16 | Internal Med Progress Note ---
Date of Encounter: 02/19/18 Time of Encounter: 08:16 - Assessment and plan (1) DOROTHEA (acute kidney injury) Current Visit: Yes Status: Acute Assessment and plan: Resolved. I think this was due to transient hypotension which resolved with PRBC 's transfusion. Will monitor. (2) Leukocytosis Current Visit: No Status: Chronic Assessment and plan: Resolved. I believe this was due to hemconcentration and possibly reactive after episode of hypotension and GI bleed for which she was transferred to the ICU Qualifiers: Leukocytosis type: unspecified Qualified Code(s): D72.829 - Elevated white blood cell count, unspecified (3) Acute blood loss anemia Current Visit: Yes Status: Acute Assessment and plan: Plans for repeat EGD today. Also colonoscopy today. Had an EGD earlier in stay which showed small blood clot and oozing in prepyloric stomach as well as one non-bleeding cratered duodenal ulcer with no stigamta of bleeding. Repeat EGD showed non-bleeding duodenal ulcer injected. Transfused 2 units yesterday and H /H is stable around 8 now. Will monitor. c/w protonix drip per GI recs (4) HTN (hypertension) Current Visit: Yes Assessment and plan: c/w home meds Qualifiers: Hypertension type: essential hypertension Qualified Code(s): I10 - Essential (primary) hypertension (5) Diastolic heart failure Current Visit: Yes Status: Chronic Assessment and plan: Diuresed significantly while here. Edema improved. Wean O2 as tolerated. On BB. Nebs PRN Qualifiers: Heart failure chronicity: chronic Qualified Code(s): I50.32 - Chronic diastolic (congestive) heart failure (6) Ulcer of right heel Current Visit: Yes Status: Acute Assessment and plan: Being followed by ID. cultures + for MDR klebseilla, proteus, and VRE. finished 2 weeks zosyn. currently on zyvox Qualifiers: Non-pressure ulcer stage: unspecified non-pressure ulcer stage Qualified Code(s): L97.419 - Non-pressure chronic ulcer of right heel and midfoot with unspecified severity (7) Type 2 diabetes mellitus Current Visit: Yes Status: Chronic Assessment and plan: c/w levemir 20 units QHS. c/w SSI. Accuchecks Qualifiers: Diabetes mellitus terminal operator insulin use: with terminal operator use Diabetes mellitus complication status: with skin complications Diabetes mellitus complication detail: with foot ulcer Qualified Code(s): E11.621 - Type 2 diabetes mellitus with foot ulcer; L97.509 - Non-pressure chronic ulcer of other part of unspecified foot with unspecified severity; Z79.4 - group home ( current) use of insulin (8) Sepsis Current Visit: Yes Status: Resolved Assessment and plan: Resolved. Secondary to LE ulcer which is being treated. Also treated for HCAP. Qualifiers: Sepsis type: sepsis due to unspecified organism Qualified Code(s): A41.9 - Sepsis, unspecified organism (9) HAP (hospital-acquired pneumonia) Current Visit: Yes Status: Resolved Assessment and plan: On zyvox. Finished zosyn. (10) Acute on chronic respiratory failure with hypoxia and hypercapnia Current Visit: Yes Status: Resolved Assessment and plan: c/w O2 support. Treated of HCAP while here. zosyn stopped. Nebs PRN. Diuresed well. I think she just needs to be on O2 at discharge. (11) REGINALD treated with BiPAP Current Visit: Yes Status: Chronic Assessment and plan: c/w bipap at night (12) Morbid obesity Current Visit: No Status: Chronic Assessment and plan: counseled (13) DVT prophylaxis Current Visit: Yes Status: Acute Assessment and plan: scds - Subjective Interval history: Patient was seen and examined. She continues to have darker stools but has been stable in the ICU. Patient was transferred to the ICU two nights ago due to black tarry stools and a drop in her hemoglobin causing hypotension requiring IV fluids and 2 units of PRBCs. Hgb 8.1 this am. Planned EGD/colonoscopy today. The patient is s/p EGD 02/15 and a non-bleeding duodenal ulcer was injected. Remains on 2L O2. Had to be transferred to ICU earlier in the stay for hypercapnia and resp acidosis. Needed Bipap. Diuresed and transferred out 02/14. Afebrile. patient is here initially with sepsis stemming from right lower ext ulcer, cellulitis, and HCAP. s/p I&D in OR on 02/01. cultures + for MDR klebseilla, proteus, and now VRE. multiple abx since admission and currently on zyvox only. had 14 days of zosyn. Patient has had a drop in H/H and FOBT is +. Needed PRBCs transfusion while here for hgb <7. Hgb 8.9. Seen by GI and EGD showed small blood clot and oozing in prepyloric stomach as well as one non-bleeding cratered duodenal ulcer with no stigamta of bleeding. Repeat EGD showed non- bleeding duodenal ulcer injected. - Constitutional Vitals: Temp Pulse Resp BP Pulse Ox 97.8 F 128 15 160/82 98 02/19/18 07:50 02/19/18 06:00 02/19/18 06:00 02/19/18 06:00 02/19/18 06:00 General appearance: Present: cooperative, morbidly obese, answers questions appropriately Exam: GEN: NAD CVS: RRR. S1, S2, No m/r/g RESP: CTAB ABD: Soft, NT, ND, +BS EXT: 1+ edema. 2+ DP. Lower extremities wrapped bilaterally NEURO: Nonfocal Internal Medicine: Result - Labs CBC & Chem 7: 02/19/18 04:20 02/19/18 04:20 Labs: Short CBC 02/18/18 02/19/18 Range/Units 10:35 04:20 WBC 9.1 (4.3-11.1) K/mcL Hgb 8.6 L 8.1 L (11.5-15.4) g/dL Hct 26.7 L 25.1 L (35.3-44.9) % Plt Count 159 (140-400) K/mcL Neutrophils # 6.2 (1.6-8.9) K/mcL BMP 02/19/18 04:20 Sodium 141 Potassium 4.4 Chloride 104 Carbon Dioxide 31 H BUN 42 H Creatinine 0.96 Glucose 92 Calcium 8.3 L - ABG Interpretation ABG results: ABG ABG pH 7.44 pH Units (7.32-7.45) 02/15/18 04:49 ABG pCO2 56 mmHg (35-45) H 02/15/18 04:49 ABG pO2 76 mmHg (85-104) L 02/15/18 04:49 ABG O2 Saturation 95 % (95-98) 02/15/18 04:49 PT/INR, D-dimer PT 19.4 Seconds (9.4-12.1) H 02/18/18 05:55 - VTE Documentation of Mechanical Device: Intermittent pneumatic compression device Consult Discharge Plan - Plan Referrals: Jc Tsai MD [Primary Care Provider] - ([facility] will call patient at home with a date for her follow up appointment.) Prescriptions: Furosemide [Lasix] 40 mg PO BID 30 Days #60 tab Pantoprazole Sodium [Protonix] 40 mg PO BID 30 Days #60 tablet. Sucralfate [Carafate] 1 gm PO 0730,1630 30 Days #60 tablet
[2018-02-19] MEDS ORDERED: Furosemide 40 MG/4 ML VIAL IVP SCH (09:00)
--- NOTE | 2018-02-19 13:52 | Anesthesia Evaluation PreOp ---
Date of Encounter: 02/19/18 Time of Encounter: 13:49 - Past History Planned Operation: EGD/Colonoscopy Cardiac History: MA, CHF, HTN, Hyperlipidemia Pulmonary History: Denies Any Significant HX, REGINALD Dx, Other PLANNING AIDE History: Denies Any Significant HX, Other (Anxiety/Depression) Other Medical History: Denies Any Significant HX, Diabetes Type II, Other ([place] BMI 43.2) Anesthesia History: No Prior Anesthetic Complications, Past Anesthesia (Hyst, Neck Sx, EGD/Colonoscopy, Debridement R-foot ulcer) : No Alcohol Use: none Drug use: none Medications and Allergies Atorvastatin [Lipitor] 40 mg PO HS 01/11/16 [History] Insulin ASPART [Novolog Flexpen] 6 - 14 unit SQ TID 01/11/16 [History] Latanoprost [Xalatan] 1 drop BOTH EYES HS 01/11/16 [History] Primidone [Mysoline] 25 - 50 mg PO BID PRN 01/11/16 [History] Ascorbic Acid [Vitamin C] 500 mg PO BID 03/25/16 [History] Docusate Sodium [Colace] 200 mg PO BID 03/25/16 [History] Furosemide [Lasix] 40 mg PO BID 12/06/16 [History] Fluticasone Propionate Nasal [Flonase] 2 spray NS DAILY #1 bottle 08/28/17 [Rx] Brimonidine Tartrate/Timolol [Combigan 0.2%-0.5% Eye Drops] 1 drop OP BID [History] Esomeprazole Magnesium [Nexium] 40 mg PO DAILY 11/10/17 [History] Gentamicin Oint [Garamycin] 1 appl TP BID 11/10/17 [History] Ketoconazole 2% CRM [Nizoral Cream] 1 appl TP DAILY 11/10/17 [History] Ketorolac Tromethamine 1 drop OP QID 11/10/17 [History] Losartan Potassium [Cozaar] 100 mg PO DAILY 11/10/17 [History] Tizanidine HCl 4 mg PO TID 11/20/17 [History] Calcium Carbonate [Tums] 1,000 mg PO Q4HR PRN tab.chew 11/24/17 [Rx] Carvedilol [Coreg] 6.25 mg PO BIDWM tablet 11/24/17 [Rx] Lactobacillus Acidophilus [Acidophilus] 1 each PO BID #10 capsule 11/24/17 [Rx] Pregabalin [Lyrica] 75 mg PO BID 30 Days #60 capsule 11/24/17 [Rx] clonazePAM [Klonopin] 0.5 mg PO BID PRN 5 Days #10 tablet 11/24/17 [Rx] Gabapentin [Neurontin] 300 mg PO HS 01/17/18 [History] Insulin Glargine,Hum.rec.anlog [Basaglar Kwikpen U-100] 40 unit SQ BID 01/17/18 [History] Potassium Chloride [K-Tab ER] 20 meq PO QID 01/17/18 [History] Nystatin POWDER [Nystop] 1 appl TP BID bottle 01/23/18 [Rx] Ferrous Sulfate 325 mg PO BID 01/30/18 [History] Loratadine [Allergy Relief] 10 mg PO DAILY 01/30/18 [History] Pantoprazole Sodium [Protonix] 40 mg PO DAILY 01/30/18 [History] Polyethylene Glycol 3350 [MiraLAX] 17 gm PO DAILY 01/30/18 [History] Furosemide [Lasix] 40 mg PO BID 30 Days #60 tab 02/16/18 [Rx] Pantoprazole Sodium [Protonix] 40 mg PO BID 30 Days #60 tablet. 02/16/18 [Rx] Sucralfate [Carafate] 1 gm PO 0730,1630 30 Days #60 tablet 02/16/18 [Rx] Diltiazem HCl [Diltiazem 12Hr ER] 120 mg PO DAILY 02/19/18 [History] 3 Allergy/AdvReac Type Severity Reaction Status Date / Time lisinopril [From Zestril] Allergy Rash Verified 01/17/18 13:50 - Meds/Allergy Pre-op Review Medications Reviewed: Yes Allergies Reviewed: Yes Beta Blockers on Current Med List: Yes If Beta Blockers taken, Date/Time (Last Dose taken): Labetalol 02/19/18 approx 14 :10 Anesthesia Results - Labs 02/19/18 04:20 02/19/18 04:20 Echocardiogram 01/31/18 11:46 Impressions: LVEF 65%. Normal LV chamber size and function. Mild concentric left ventricular hypertrophy. Mild left ventricular diastolic dysfunction. Right ventricular size was not well visualized. Function appears grossly normal. Mild pulmonary hypertension. No significant valvular dysfunction. - Imaging EKG: report reviewed (ST) Anesthesia Exam Vital Signs/O2 Sat, Most Current Temp Pulse Resp BP Pulse Ox 97.8 F 99 18 163/81 99 02/19/18 07:50 02/19/18 12:00 02/19/18 12:00 02/19/18 12:00 02/19/18 12:00 Blood glucose: 99 NPO (# of Hours): > 8 Hrs Pain Scale: 0 Pain Scale Used: Numeric (1 - 10) - HEENT Pupil (Motor): Pupils equal, EOMI Mallampati: II Teeth: Edentulous Oral Opening: Greater than 3 - PLANNING AIDE LOC: Oriented PLANNING AIDE Motor: Normal RUE, Normal LUE, Normal RLE, Normal LLE, Normal Face PLANNING AIDE Sensory: Normal: RUE, LUE, RLE, LLE, Face - Cardiac Rhythm: Regular Murmur: None JVD: No Carotid Bruit: No - Pulmonary Breath Sounds: bilateral Clear Respiratory Effort: Symmetrical Anesthesia Assess/Plan ASA Score: 4 Modified Monet Scale for Level of Consciousness: Cooperative, oriented, and tranquil Anesthetic Plan: MAC Autologous Blood: Yes Monitoring Plan: Standard Monitors Recovery Plan: PACU
[2018-02-19] MEDS: *HR* Labetalol 20 MG/4 ML SYRINGE IVP PRN (14:13)
[2018-02-19] MEDS ORDERED: 0.9 % Sodium Chloride 1,000 ML ONE (14:17)
--- NOTE | 2018-02-19 15:25 | Infectious Disease Progress No ---
Date of Encounter: 02/19/18 Time of Encounter: 10:05 - Assessment and Plan (1) Ulcer of right heel Current Visit: Yes Status: Acute - Patient has necrotic right heel ulcer and bilateral lower extremity cellulitis - Normally sees online publisher Dr. Stoll - CT scan of the legs was negative for osteomyelitis; did not demonstrate extensive subcutaneous edema - Underwent surgical debridement - R foot wound CX: Klebsiella ESBL sensitive to Zosyn, Imipenem, Ertapenem, Proteus, FRONTEND ENGINEER Completed 14 days of IV Zosyn, which has been discontinued. Continue Zyvox 600 mg by mouth twice a day to complete a 14 day course (day 13). Wound care per the podiatry team. No further recommendations from the ID team. We will sign off. Please reconsult if needed. Qualifiers: Non-pressure ulcer stage: unspecified non-pressure ulcer stage Qualified Code(s): L97.419 - Non-pressure chronic ulcer of right heel and midfoot with unspecified severity (2) HAP (hospital-acquired pneumonia) Current Visit: Yes Status: Resolved - Patient was recently discharged on 01/23 - On arrival, SPO2 was 84% on room air; heart rate in the 130s - Chest x-ray demonstrated increasing pulmonary edema with worsening basilar atelectasis - CTA demonstrated multifocal airspace consolidation throughout both lungs; most likely reflective of multifocal pneumonia. - Continue bronchodilators and incentive spirometry - Resp. infection panel negative - Legionella and strep antigen both negative - Respiratory status has improved Complete 14 day course of IV Zosyn. Resolved. (3) Melena Current Visit: Yes Status: Acute GI consulted. EGD scheduled for later today. (4) Acute kidney injury Current Visit: No Status: Resolved Resolved. (5) Diastolic heart failure Current Visit: Yes Status: Chronic - Acute on chronic diastolic CHF exacerbation - Presented with shortness of breath, pedal edema, rales on exam, and tachycardia with heart rate in the 130s - CXR revealed increasing pulmonary edema with worsening bibasilar atelectasis. - Echo 11/11/17 revealed LVEF 55-60%, mild concentric LVH - Management per primary team Qualifiers: Heart failure chronicity: chronic Qualified Code(s): I50.32 - Chronic diastolic (congestive) heart failure (6) Thyroid nodule Current Visit: Yes Status: Acute - Incidentally found on chest CTA on 01/29; stable 2.4 cm low attenuation nodule within the left thyroid lobe. - Follow-up the outpatient setting (7) Type 2 diabetes mellitus Current Visit: Yes Status: Chronic - HGB a1c level 11% on 09/20/17 - Continue basal and SSI - Monitor accu-checks Recommend aggressive glucose monitoring and control to promote wound healing and prevent reinfection. Management per the primary team. Qualifiers: Diabetes mellitus intermediate accountant insulin use: with care home use Diabetes mellitus complication status: with skin complications Diabetes mellitus complication detail: with foot ulcer Qualified Code(s): E11.621 - Type 2 diabetes mellitus with foot ulcer; L97.509 - Non-pressure chronic ulcer of other part of unspecified foot with unspecified severity; Z79.4 - oysterman ( current) use of insulin (8) Venous ulcers of both lower extremities Current Visit: No Status: Acute - Subjective Interval history: Patient seen and examined. No acute events noted overnight. Patient states overall she feels okay. She does complain of some nausea and upset stomach. She denies fevers, chills, or rigors. Denies chest pain, shortness of breath, or cough. Denies vomiting. Reports dark tarry loose stools. Has a Rogers catheter that remains patent. Rectal tube remains patent as well. Denies pain except for her chronic neuropathy pain. Was transferred back to the intensive care unit overnight due to GI bleed, anemia, and hypotension. Infect Dis PN-Objective Data - Labs CBC & Chem 7: 02/21/18 03:33 02/21/18 03:33 Labs: Laboratory Results - last 24 hr 02/18/18 02/18/18 02/18/18 01:14 05:37 11:25 WBC RBC Hgb Hct MCV MCH MCHC RDW Plt Count MPV Immature Gran % Seg Neutrophils % Lymphocytes % Monocytes % Eosinophils % Basophils % Neutrophils # Lymphocytes # Monocytes # Eosinophils # Basophils # Sodium Potassium Chloride Carbon Dioxide BUN Creatinine Est GFR ( Amer) Est GFR (Non-Af Amer) BUN/Creatinine Ratio Glucose POC Glucose 245 H 199 H 87 Calculated Osmolality Calcium 02/18/18 02/18/18 02/19/18 19:55 23:38 04:20 WBC 9.1 RBC 2.80 L Hgb 8.1 L Hct 25.1 L MCV 89.6 MCH 28.9 MCHC 32.3 RDW 17.2 H Plt Count 159 MPV 11.8 Immature Gran % 0.3 Seg Neutrophils % 67.9 Lymphocytes % 24.3 Monocytes % 5.2 Eosinophils % 1.9 Basophils % 0.4 Neutrophils # 6.2 Lymphocytes # 2.2 Monocytes # 0.5 Eosinophils # 0.2 Basophils # 0.0 Sodium Potassium Chloride Carbon Dioxide BUN Creatinine Est GFR ( Amer) Est GFR (Non-Af Amer) BUN/Creatinine Ratio Glucose POC Glucose 99 99 Calculated Osmolality Calcium 02/19/18 04:20 WBC RBC Hgb Hct MCV MCH MCHC RDW Plt Count MPV Immature Gran % Seg Neutrophils % Lymphocytes % Monocytes % Eosinophils % Basophils % Neutrophils # Lymphocytes # Monocytes # Eosinophils # Basophils # Sodium 141 Potassium 4.4 Chloride 104 Carbon Dioxide 31 H BUN 42 H Creatinine 0.96 Est GFR ( Amer) > 60 Est GFR (Non-Af Amer) 60 BUN/Creatinine Ratio 44 H Glucose 92 POC Glucose Calculated Osmolality 302 H Calcium 8.3 L Cultures: Cultures 02/15/18 05:04 Urine Culture - Preliminary Urine,Catheterized Yeast Species 02/12/18 09:30 Blood Culture - Final Peripheral Venipuncture No growth. Final report. 02/12/18 09:36 Blood Culture - Final Peripheral Venipuncture No growth. Final report. 02/08/18 17:33 Blood Culture - Final Peripheral Venipuncture No growth. Final report. 02/08/18 17:33 Blood Culture - Final Peripheral Venipuncture No growth. Final report. 02/01/18 10:50 Wound Culture - Final Right Foot Klebsiella pneumoniae MDRO Proteus penneri Vancomycin Resistant Enterococcus faecium 02/01/18 11:30 Surgical Biopsy Culture - Final Right Foot Klebsiella pneumoniae MDRO Proteus penneri Vancomycin Resistant Enterococcus faecium 02/01/18 11:30 Anaerobic Culture - Final Right Foot No anaerobes were recovered. Serology 02/12/18 02/07/18 02/07/18 Range/Units 14:11 04:28 04:28 Urine Color Yellow (Yellow) Urine Clarity Clear (Clear) Urine pH 6.0 (5.0-8.0) pH Units Ur Specific [place] 1.018 (1.010-1.025) Urine Protein 30 H (Neg-Trace) mg/dL Urine Glucose (UA) Normal (Normal) mg/dL Urine Ketones Negative (Negative) mg/dL Urine Blood Negative (Negative) Urine Nitrite Negative (Negative) Urine Bilirubin Negative (Negative) Urine Urobilinogen Normal (Normal) mg/dL Ur Leukocyte Esterase Moderate H (Negative) Urine Microscopic RBC 0-3 (0-3) per hpf Urine Microscopic WBC 50-100 H (0-3) per hpf Ur Squamous Epith Cells Many H (None-Few) per lpf Urine Bacteria None Seen (None-Few) per hpf Hyaline Casts None Seen (None-Few) per lpf Urine Yeast Few H (None Seen) per hpf Ur Culture Indicated? NO. A (NO) Stool Occult Blood Positive A (Negative) Stl C. cayetanensis PCR Not detected (Not detect) Stool Rotavirus A PCR Not detected (Not detect) Stl Adenov F 40/41 PCR Not detected (Not detect) Stool Astrovirus (PCR) Not detected (Not detect) Stool Campylobacter PCR Not detected (Not detect) Stl C. diff Tox A/B PCR Not detected (Not detect) Stool Cryptosporidium PCR Not detected (Not detect) Stl Sh Tox Pr E STEC PCR Not detected (Not detect) Stool E coli O157 PCR Not detected (Not detect) Stl Enterotoxigenic E PCR Not detected (Not detect) Stool EPEC (PCR) Not detected (Not detect) Stool EAEC (PCR) Not detected (Not detect) Stl E. histolytica PCR Not detected (Not detect) Stool Giardia Lamblia PCR Not detected (Not detect) Stool Salmonella PCR Not detected (Not detect) Stool Sapovirus (PCR) Not detected (Not detect) Stl P. shigelloides PCR Not detected (Not detect) Stl Shigella/EIEC PCR Not detected (Not detect) St Y.enterocolitica PCR Not detected (Not detect) Stool Vibrio (PCR) Not detected (Not detect) Stl Vibrio cholerae PCR Not detected (Not detect) Stl Norovirus GI/GII PCR Not detected (Not detect) Stl GI Panel (PCR) Com See below Chlamy pneumoniae PCR (Not Detect) Adenovirus (PCR) (Not Detect) B. pertussis DNA (PCR) (Not Detect) B.parapertussis DNA PCR (Not Detect) Coronavirus OC43 (PCR) (Not Detect) Coronavirus HKU1 (PCR) (Not Detect) Coronavirus 229E (PCR) (Not Detect) Coronavirus NL63 (PCR) (Not Detect) Human Metapneumovir PCR (Not Detect) Influenza A (H1) PCR (Not Detect) Influ A (H1N1/09) PCR (Not Detect) Influenza A (H3) PCR (Not Detect) Influenza A Untype (PCR) (Not Detect) Influenza Type B (PCR) (Not Detect) M.pneumoniae DNA (PCR) (Not Detect) Parainfluenza 1 (PCR) (Not Detect) Parainfluenza 2 (PCR) (Not Detect) Parainfluenza 3 (PCR) (Not Detect) Parainfluenza 4 (PCR) (Not Detect) RSV (PCR) (Not Detect) Entero/Rhino (PCR) (Not Detect) 01/30/18 Range/Units 18:41 Urine Color (Yellow) Urine Clarity (Clear) Urine pH (5.0-8.0) pH Units Ur Specific [place] (1.010-1.025) Urine Protein (Neg-Trace) mg/dL Urine Glucose (UA) (Normal) mg/dL Urine Ketones (Negative) mg/dL Urine Blood (Negative) Urine Nitrite (Negative) Urine Bilirubin (Negative) Urine Urobilinogen (Normal) mg/dL Ur Leukocyte Esterase (Negative) Urine Microscopic RBC (0-3) per hpf Urine Microscopic WBC (0-3) per hpf Ur Squamous Epith Cells (None-Few) per lpf Urine Bacteria (None-Few) per hpf Hyaline Casts (None-Few) per lpf Urine Yeast (None Seen) per hpf Ur Culture Indicated? (NO) Stool Occult Blood (Negative) Stl C. cayetanensis PCR (Not detect) Stool Rotavirus A PCR (Not detect) Stl Adenov F 40/41 PCR (Not detect) Stool Astrovirus (PCR) (Not detect) Stool Campylobacter PCR (Not detect) Stl C. diff Tox A/B PCR (Not detect) Stool Cryptosporidium PCR (Not detect) Stl Sh Tox Pr E STEC PCR (Not detect) Stool E coli O157 PCR (Not detect) Stl Enterotoxigenic E PCR (Not detect) Stool EPEC (PCR) (Not detect) Stool EAEC (PCR) (Not detect) Stl E. histolytica PCR (Not detect) Stool Giardia Lamblia PCR (Not detect) Stool Salmonella PCR (Not detect) Stool Sapovirus (PCR) (Not detect) Stl P. shigelloides PCR (Not detect) Stl Shigella/EIEC PCR (Not detect) St Y.enterocolitica PCR (Not detect) Stool Vibrio (PCR) (Not detect) Stl Vibrio cholerae PCR (Not detect) Stl Norovirus GI/GII PCR (Not detect) Stl GI Panel (PCR) Com Chlamy pneumoniae PCR Not Detected (Not Detect) Adenovirus (PCR) Not Detected (Not Detect) B. pertussis DNA (PCR) Not Detected (Not Detect) B.parapertussis DNA PCR Not Detected (Not Detect) Coronavirus OC43 (PCR) Not Detected (Not Detect) Coronavirus HKU1 (PCR) Not Detected (Not Detect) Coronavirus 229E (PCR) Not Detected (Not Detect) Coronavirus NL63 (PCR) Not Detected (Not Detect) Human Metapneumovir PCR Not Detected (Not Detect) Influenza A (H1) PCR Not Detected (Not Detect) Influ A (H1N1/09) PCR Not Detected (Not Detect) Influenza A (H3) PCR Not Detected (Not Detect) Influenza A Untype (PCR) Not Detected (Not Detect) Influenza Type B (PCR) Not Detected (Not Detect) M.pneumoniae DNA (PCR) Not Detected (Not Detect) Parainfluenza 1 (PCR) Not Detected (Not Detect) Parainfluenza 2 (PCR) Not Detected (Not Detect) Parainfluenza 3 (PCR) Not Detected (Not Detect) Parainfluenza 4 (PCR) Not Detected (Not Detect) RSV (PCR) Not Detected (Not Detect) Entero/Rhino (PCR) Not Detected (Not Detect) Exam - Constitutional Vitals: Temp Pulse Resp BP Pulse Ox 97.8 F 101 16 180/86 100 02/19/18 07:50 02/19/18 14:00 02/19/18 14:00 02/19/18 14:00 02/19/18 14:00 General appearance: cooperative, no acute distress, obese - Head Head exam: Present: atraumatic, normal inspection, normocephalic - Eye Eye exam: Present: EOMI, normal appearance, PERRL Pupils: Present: normal accommodation - ENT ENT exam: Present: mucous membranes dry - Neck Neck exam: Present: normal inspection - Respiratory Respiratory exam: Present: CTAB. Absent: rales, respiratory distress, rhonchi, wheezes - Cardiovascular Cardiovascular exam: Present: RRR, +S1, +S2 - GI/Abdominal GI/Abdominal exam: Present: distended (Obese), normal bowel sounds, soft. Absent: tenderness Additional comments: Rogers catheter noted to be draining clear yellow urine. Rectal tube with small amount of dark green liquid stool. - Extremities Exam Extremities exam: Absent: joint swelling, pedal edema, tenderness Additional comments: Right foot dressing is clean, dry, and intact. Wound VAC noted with no drainage noted in the canister. No evidence of leak. Continuous suction at 125 mmHg. - Neurological Exam Neurological exam: Present: alert, oriented X3, no focal deficits - Psychiatric Psychiatric exam: Present: normal affect, normal mood - Skin Skin exam: Present: dry, intact, normal color, warm - VTE Documentation of Mechanical Device: Intermittent pneumatic compression device Consult Discharge Plan - Plan Referrals: Jc Tsai MD [Primary Care Provider] - (Doctors office will call patient at home with a date for her follow up appointment.) Prescriptions: Furosemide [Lasix] 40 mg PO BID 30 Days #60 tab Pantoprazole Sodium [Protonix] 40 mg PO BID 30 Days #60 tablet. Sucralfate [Carafate] 1 gm PO 0730,1630 30 Days #60 tablet - Attending Attestation I examined this patient and my medical decision-making was reviewed with the Resident Physician. I agree with the documented findings, disposition and treatment plan as described except to the extent set forth below.
[2018-02-19] MEDS ORDERED: Lidocaine 2% Syringe 100 MG/5 ML IV ONE (18:33)
[2018-02-19] MEDS ORDERED: *HR* Propofol 500 MG/50 ML BOTTLE IVC ONE (18:33)
[2018-02-19] MEDS: Primidone 50 MG TABLET PO PRN (19:35)
[2018-02-19] MEDS: Latanoprost 2.5 ML BOTTLE BOTH EYES SCH (21:00)
[2018-02-19] MEDS: Insulin DETEMIR 100 UNIT/ML X5UNITS SQ SCH (21:03)
[2018-02-20] MEDS: Pantoprazole 40 MG in 0.9 % Sodium Chloride Mini Bag 100 ML IVC SCH ×3 (01:39→12:15)
[2018-02-20] MEDS: *HR* Labetalol 20 MG/4 ML SYRINGE IVP PRN (03:17)
[2018-02-20 04:16] LABS: Basophils # 0.1 K/mcL (0.0-0.2); Basophils % 0.4 %; Eosinophils # 0.3 K/mcL (0.0-0.6); Hemoglobin 7.3 g/dL (11.5-15.4); Immature Granulocytes % 0.4 % (0-4); Immature Platelets 5.8 % (1.1-6.1); Lymphocytes # 2.2 K/mcL (0.6-4.6); Lymphocytes % 16.1 %; Mean Corpuscular HGB Conc 31.7 g/dL (31.6-35.5); Mean Corpuscular Hemoglobin 29.1 pg (28.0-33.3); Mean Corpuscular Volume 91.6 fL (83.0-100.0); Mean Platelet Volume 11.6 fL (9.4-12.4); Monocytes # 0.9 K/mcL (0.0-1.3); Monocytes % 6.3 %; Neutrophils # 10.2 K/mcL (1.6-8.9); Platelet Count 138 K/mcL (140-400); Red Blood Count 2.51 M/mcL (3.82-4.97); Red Cell Distribution Width 16.7 % (11.5-14.5); Segmented Neutrophils % 74.8 %
[2018-02-20] MEDS: Primidone 50 MG TABLET PO PRN (05:06)
[2018-02-20] MEDS: Insulin LISPRO 300 UNITS/3 ML VIAL SQ SCH ×3 (05:09→18:08)
[2018-02-20 05:20] LABS: BUN/Creatinine Ratio 32 (6-26); Blood Urea Nitrogen 26 mg/dL (6-20); Calcium 8.2 mg/dL (8.6-10.3); Carbon Dioxide 30 mEq/L (23-29); Chloride 102 mEq/L (98-107); Glucose 89 mg/dL (70-105); Magnesium 1.7 mg/dL (1.6-2.6); Osmolality,Calculated 292 (280-300); Potassium 3.9 mEq/L (3.5-5.1); Sodium 139 mEq/L (136-145); eGFR For Non-African Americans > 60 (> 60)
[2018-02-20] MEDS: Diltiazem CD (24hr) 120 MG CAPSULE PO SCH (08:18)
[2018-02-20] MEDS: Thiamine (B-1) 100 MG TABLET PO SCH (08:18)
[2018-02-20] MEDS: Linezolid 600 MG TABLET PO SCH ×2 (08:18→21:44)
[2018-02-20] MEDS: Potassium Citrate 10 MEQ TABLET.ER PO SCH ×2 (08:19→21:44)
[2018-02-20] MEDS: Lactobacillus 1 EACH CAP.SPRINK PO SCH ×2 (08:19→21:44)
[2018-02-20] MEDS: Fluticasone Propionate Nasal 50 MCG/SPRAY BOTTLE NS SCH (08:19)
--- NOTE | 2018-02-20 16:17 | Internal Med Progress Note ---
Hospitalist Progress Note - Encounter Date of Encounter: 02/20/18 Time of Encounter: 09:00 - Subjective Interval History: Patient was seen and examined. Awake alert, in no acute distress. Denies dizziness, lightheaded, or nausea. Had EGD and colonoscopy yesterday, was found gastritis with spontaneous bleeding, bleeding was treated by GI with coagulation. Patient tolerate diabetic diet. - Exam Vitals: Temp Pulse Resp BP Pulse Ox 98.1 F 94 16 146/70 93 02/20/18 10:51 02/20/18 15:00 02/20/18 14:00 02/20/18 14:00 02/20/18 14:00 Exam: Patient is awake alert, in no acute distress HEENT: NC/AT, PERRL Neck: Supple, no LAD Lung: CTA b/l, no wheezing/rales/rhonchi Heart: S1S2, RRR Abd: Soft, nontender Ext: ROM wnl, no pedal edema Neuro: AAO x 3, no focal deficit. - Assessment and Plan (1) DVT prophylaxis Current Visit: Yes Status: Acute Assessment and Plan: SCD (2) Morbid obesity Current Visit: No Status: Chronic Assessment and Plan: BMI 43, continue lifestyle modification as outpatient. (3) HTN (hypertension) Current Visit: Yes Assessment and Plan: On Coreg and Losartan -BP well controlled -consider labetolol IVP if systolic >160 (4) Diastolic heart failure Current Visit: Yes Status: Chronic Assessment and Plan: -TTE in 11/2016 showed LVEF 60%, concentric LVH, moderate diastolic dysfxn -pt should eat a heart healthy diet and lose weight -pt has no reports of chest pain, SOB, dyspnea at this time Plan: -c/w 40mg po lasix bid -continue with beta blockers -pt is on telemetry - Appears euvolemic at this point (5) Ulcer of right heel Current Visit: Yes Status: Acute Assessment and Plan: s/p debridement of right heel with podiatry. -Wound cultures growing ESBL Klebsiella, Proteus penneri, gram (+) cocci Plan: -PTOT recommended ECF, social sciences department chair on board. Pt to be d/c to SNF when stable -wound vac in place at 125mmHg suction -ID discontinued zosyn, since pt has been on IV Zosyn for 2 wks -Continue PO Zyvox for +VRE wound cultures -day 07/06 for Zyvox PO as per ID, will discharge the patient on Zyvox. - Probiotics to prevent C. difficile (6) Type 2 diabetes mellitus Current Visit: Yes Status: Chronic Assessment and Plan: cw SSI and levemir 30 units QHS. Accucheks. (7) Leukocytosis Current Visit: No Status: Chronic Assessment and Plan: Possibly reactive. Patient has finished Zosyn IV treatment for 2 weeks and is on zyvox by mouth now (8) Sepsis Current Visit: Yes Status: Resolved Assessment and Plan: On admition met SIRS criteria = leukocytosis and tachycardia -possible pneumonia, bilateral leg cellulitis, right foot ulcer. Plan: -sepsis has improved -continue to conitor CBC until discharge -day 07/06 Zyvox PO. (9) HAP (hospital-acquired pneumonia) Current Visit: Yes Status: Resolved Assessment and Plan: Zosyn d/c by ID after 14 days course -resolved, patient denies cough or fever (10) DOROTHEA (acute kidney injury) Current Visit: Yes Status: Acute Assessment and Plan: Stable and improved renal function. Continue closely monitoring (11) Acute on chronic respiratory failure with hypoxia and hypercapnia Current Visit: Yes Status: Resolved Assessment and Plan: Due to HAP. Improved after treatment (12) Acute blood loss anemia Current Visit: Yes Status: Acute Assessment and Plan: Patient was found GI bleed. Had EGD and coagulation. Continue closely monitor H&H and vitals (13) REGINALD treated with BiPAP Current Visit: Yes Status: Chronic Assessment and Plan: BiPAP settings as per respiratory -16/6 on 4L -will be discharged with bipap DVT Prophylaxis: SCDs - Time Spent with Patient Total time spent is greater than 50% in coordination of care (as documented) at patient's floor/unit and/or counseling patient: 40 minutes Greater than 35 minutes Plan of Care Discussed with: family Internal Medicine: Result - Labs CBC & Chem 7: 02/20/18 Unknown 02/20/18 03:45 Labs: Short CBC 02/20/18 Range/Units Unknown WBC 13.6 H (4.3-11.1) K/mcL Hgb 7.3 L (11.5-15.4) g/dL Hct 23.0 L (35.3-44.9) % Plt Count 138 L (140-400) K/mcL Neutrophils # 10.2 H (1.6-8.9) K/mcL BMP 02/20/18 03:45 Sodium 139 Potassium 3.9 Chloride 102 Carbon Dioxide 30 H BUN 26 H Creatinine 0.81 Glucose 89 Calcium 8.2 L - ABG Interpretation ABG results: ABG ABG pH 7.44 pH Units (7.32-7.45) 02/15/18 04:49 ABG pCO2 56 mmHg (35-45) H 02/15/18 04:49 ABG pO2 76 mmHg (85-104) L 02/15/18 04:49 ABG O2 Saturation 95 % (95-98) 02/15/18 04:49 PT/INR, D-dimer PT 19.4 Seconds (9.4-12.1) H 02/18/18 05:55 - VTE Documentation of Mechanical Device: Intermittent pneumatic compression device Consult Discharge Plan - Plan Referrals: Jc Tsai MD [Primary Care Provider] - ([facility] office will call patient at home with a date for her follow up appointment.) Prescriptions: Furosemide [Lasix] 40 mg PO BID 30 Days #60 tab Pantoprazole Sodium [Protonix] 40 mg PO BID 30 Days #60 tablet. Sucralfate [Carafate] 1 gm PO 0730,1630 30 Days #60 tablet (7) Leukocytosis Qualifiers: Leukocytosis type: unspecified Qualified Code(s): D72.829 - Elevated white blood cell count, unspecified (8) Sepsis Qualifiers: Sepsis type: sepsis due to unspecified organism Qualified Code(s): A41.9 - Sepsis, unspecified organism
[2018-02-20] MEDS: Furosemide 40 MG TABLET PO SCH (18:07)
[2018-02-20] MEDS: Insulin DETEMIR 100 UNIT/ML X5UNITS SQ SCH (23:52)
[2018-02-20] MEDS: Latanoprost 2.5 ML BOTTLE BOTH EYES SCH (23:55)
[2018-02-21 03:37] LABS: Basophils % 0.3 %; Eosinophils # 0.2 K/mcL (0.0-0.6); Eosinophils % 1.8 %; Hemoglobin 6.9 g/dL (11.5-15.4); Immature Granulocytes % 0.4 % (0-4); Lymphocytes # 2.3 K/mcL (0.6-4.6); Lymphocytes % 19.1 %; Mean Corpuscular HGB Conc 31.4 g/dL (31.6-35.5); Mean Corpuscular Volume 89.4 fL (83.0-100.0); Mean Platelet Volume 11.4 fL (9.4-12.4); Monocytes # 0.9 K/mcL (0.0-1.3); Monocytes % 7.2 %; Neutrophils # 8.5 K/mcL (1.6-8.9); Platelet Count 143 K/mcL (140-400); Red Blood Count 2.46 M/mcL (3.82-4.97); Red Cell Distribution Width 16.3 % (11.5-14.5); Segmented Neutrophils % 71.2 %
[2018-02-21 04:05] LABS: BUN/Creatinine Ratio 23 (6-26); Blood Urea Nitrogen 18 mg/dL (6-20); Calcium 8.3 mg/dL (8.6-10.3); Carbon Dioxide 33 mEq/L (23-29); Chloride 99 mEq/L (98-107); Glucose 100 mg/dL (70-105); Osmolality,Calculated 284 (280-300); Sodium 136 mEq/L (136-145); eGFR For Non-African Americans > 60 (> 60)
[2018-02-21] MEDS: Acetaminophen 325 MG TABLET PO PRN ×2 (05:50→22:09)
[2018-02-21] MEDS ORDERED: Pantoprazole 40 MG VIAL IVP SCH (09:00)
[2018-02-21] MEDS ORDERED: 0.9 % Sodium Chloride 250 ML ONE (09:26)
[2018-02-21] MEDS: Furosemide 40 MG TABLET PO SCH ×2 (10:13→17:55)
[2018-02-21] MEDS: Lactobacillus 1 EACH CAP.SPRINK PO SCH ×2 (10:14→21:00)
[2018-02-21] MEDS: Thiamine (B-1) 100 MG TABLET PO SCH (10:14)
[2018-02-21] MEDS: Potassium Citrate 10 MEQ TABLET.ER PO SCH ×2 (10:14→21:05)
[2018-02-21] MEDS: Linezolid 600 MG TABLET PO SCH (10:15)
[2018-02-21] MEDS: Diltiazem CD (24hr) 120 MG CAPSULE PO SCH (10:15)
[2018-02-21] MEDS: Fluticasone Propionate Nasal 50 MCG/SPRAY BOTTLE NS SCH (10:17)
[2018-02-21] MEDS: Insulin LISPRO 300 UNITS/3 ML VIAL SQ SCH ×3 (11:30→16:46)
--- NOTE | 2018-02-21 15:16 | Internal Med Progress Note ---
Hospitalist Progress Note - Encounter Date of Encounter: 02/21/18 Time of Encounter: 10:00 - Subjective Interval History: Patient was seen and examined. Awake alert, in no acute distress. Still weak. Denies dizziness, lightheaded, or nausea. Still low H/H, will give another unit of PRBC. Closely monitor pt. - Exam Vitals: Temp Pulse Resp BP Pulse Ox 98.7 F 96 18 150/82 97 02/21/18 13:20 02/21/18 13:20 02/21/18 13:20 02/21/18 13:20 02/21/18 13:20 Exam: Pt is AAO x 3, in NAD HEENT: NC/AT, PERRL Neck: Supple, no LAD Lungs: CTA B/L Heart: S1S2, RRR Abd: Soft, No tenderness, normal BS Ext: ROM wnl, no pedal edema Neuro: AAO x 3, no focal deficit. - Assessment and Plan (1) DVT prophylaxis Current Visit: Yes Status: Acute Assessment and Plan: SCDs (2) Morbid obesity Current Visit: No Status: Chronic Assessment and Plan: BMI 43, continue lifestyle modification as outpatient. (3) HTN (hypertension) Current Visit: Yes Assessment and Plan: On Coreg and Losartan -BP well controlled -consider labetolol IVP if systolic >160 (4) Diastolic heart failure Current Visit: Yes Status: Chronic Assessment and Plan: -TTE in 11/2016 showed LVEF 60%, concentric LVH, moderate diastolic dysfxn -pt should eat a heart healthy diet and lose weight -pt has no reports of chest pain, SOB, dyspnea at this time Plan: -c/w 40mg po lasix bid -continue with beta blockers -pt is on telemetry - Appears euvolemic at this point (5) Ulcer of right heel Current Visit: Yes Status: Acute Assessment and Plan: s/p debridement of right heel with podiatry. -Wound cultures growing ESBL Klebsiella, Proteus penneri, gram (+) cocci Plan: -PTOT recommended ECF, psychiatric social worker supervisor on board. Pt to be d/c to SNF when stable -wound vac in place at 125mmHg suction -ID discontinued zosyn, since pt has been on IV Zosyn for 2 wks -Finished 14 days of PO Zyvox course for +VRE wound cultures - Probiotics to prevent C. difficile (6) Type 2 diabetes mellitus Current Visit: Yes Status: Chronic Assessment and Plan: cw SSI and levemir 30 units QHS. Accucheks. (7) Leukocytosis Current Visit: No Status: Chronic Assessment and Plan: Possibly reactive. Patient has finished Zosyn IV treatment for 2 weeks and 2wks of zyvox by mouth. (8) Sepsis Current Visit: Yes Status: Resolved Assessment and Plan: On admition met SIRS criteria = leukocytosis and tachycardia -possible pneumonia, bilateral leg cellulitis, right foot ulcer. Plan: -sepsis has improved (9) HAP (hospital-acquired pneumonia) Current Visit: Yes Status: Resolved Assessment and Plan: Zosyn d/c by ID after 14 days course -resolved, patient denies cough or fever (10) DOROTHEA (acute kidney injury) Current Visit: Yes Status: Acute Assessment and Plan: Stable and improved renal function. Continue closely monitoring (11) Acute on chronic respiratory failure with hypoxia and hypercapnia Current Visit: Yes Status: Resolved Assessment and Plan: Due to HAP. Improved after treatment (12) Acute blood loss anemia Current Visit: Yes Status: Acute Assessment and Plan: Patient was found GI bleed. Had EGD and coagulation. Continue closely monitor H&H and vitals (13) REGINALD treated with BiPAP Current Visit: Yes Status: Chronic Assessment and Plan: BiPAP settings as per respiratory -06/01 on 4L -will be discharged with bipap - Summary of Assessment and Plan Summary of Assessment and Plan: Patient was admitted for pneumonia and sepsis. She has finished antibiotic course. The major problem for her now is GI bleed. Patient had EGD and coagulation but H&H is still low and need transfusion. Continue closely monitor H&H. Continue IV PPI at this point. - Time Spent with Patient Total time spent is greater than 50% in coordination of care (as documented) at patient's floor/unit and/or counseling patient: 40 minutes Greater than 35 minutes Plan of Care Discussed with: patient Internal Medicine: Result - Labs CBC & Chem 7: 02/21/18 03:33 02/21/18 03:33 Labs: Short CBC 02/21/18 Range/Units 03:33 WBC 11.9 H (4.3-11.1) K/mcL Hgb 6.9 L (11.5-15.4) g/dL Hct 22.0 L (35.3-44.9) % Plt Count 143 (140-400) K/mcL Neutrophils # 8.5 (1.6-8.9) K/mcL BMP 02/21/18 03:33 Sodium 136 Potassium 4.0 Chloride 99 Carbon Dioxide 33 H BUN 18 Creatinine 0.80 Glucose 100 Calcium 8.3 L - ABG Interpretation ABG results: ABG ABG pH 7.44 pH Units (7.32-7.45) 02/15/18 04:49 ABG pCO2 56 mmHg (35-45) H 02/15/18 04:49 ABG pO2 76 mmHg (85-104) L 02/15/18 04:49 ABG O2 Saturation 95 % (95-98) 02/15/18 04:49 PT/INR, D-dimer PT 19.4 Seconds (9.4-12.1) H 02/18/18 05:55 - VTE Documentation of Mechanical Device: Intermittent pneumatic compression device Consult Discharge Plan - Plan Referrals: Jc Tsai MD [Primary Care Provider] - ([facility] will call patient at home with a date for her follow up appointment.) Prescriptions: Furosemide [Lasix] 40 mg PO BID 30 Days #60 tab Pantoprazole Sodium [Protonix] 40 mg PO BID 30 Days #60 tablet. Sucralfate [Carafate] 1 gm PO 0730,1630 30 Days #60 tablet (7) Leukocytosis Qualifiers: Leukocytosis type: unspecified Qualified Code(s): D72.829 - Elevated white blood cell count, unspecified (8) Sepsis Qualifiers: Sepsis type: sepsis due to unspecified organism Qualified Code(s): A41.9 - Sepsis, unspecified organism
--- NOTE | 2018-02-21 15:39 | Podiatry Progress Note ---
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: with aircraft pneudraulic systems mechanic use Diabetes mellitus complication status: with skin complications Diabetes mellitus complication detail: with other skin complication Qualified Code(s): E11.628 - Type 2 diabetes mellitus with other skin complications; Z79.4 - mechanical cad drafter (current) use of insulin (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 Graft in place to right heel with wound vac. Wound cultures of right leg from 01/18/18 isolated MRSA. Surgical biopsy culture from 02/01/18- Klebsiella pneumoniae MDRO, proteus penneri, Vancomycin Enterococcus faecium Wound culture right foot 02/01/18- Klebsiella pneumoniae MDRO, proteus penneri, Vancomycin Enterococcus faecium Lower Extremity CT 01/29/18 16:56 IMPRESSION: 1. Re- demonstration of extensive subcutaneous edema skin thickening of the bilateral lower extremities similar to previous exam. Findings may reflect chronic venous stasis/lymph edema versus cellulitis. No organized drainable fluid collection identified. 2. Ulceration identified along the plantar aspect of the right foot at the level of the calcaneus which is new compared with previous exam. 3. Re- demonstration of remote fracture of the left 5th metatarsal base with no evidence for osseous bridging or callus formation. Plan Wound vac changed today. Continue wound vac dressing changes as ordered. Small piece of black sponge adhered to graft jacket- nursing staff ensure that adaptic is placed over graft prior to placing sponge- no adaptic was in place. Antibiotics per Infectious Disease. Plan for patient to be discharged to [facility], social work on board. Follow up with Dr. Stoll in wound care one week after discharge from hospital. NWB to right foot. Qualifiers: Diabetic foot ulcer location: midfoot Diabetes mellitus type: type 2 Laterality: right Non-pressure ulcer stage: limited to breakdown of skin Qualified Code(s): E11.621 - Type 2 diabetes mellitus with foot ulcer; L97.411 - Non-pressure chronic ulcer of right heel and midfoot limited to breakdown of skin Subjective Principal diagnosis: Acute on Chronic Respiratory Failure Interval history: Patient is s/p incision and drainage and debridement of all necrotic tissue right foot/heel, application of PuraPly wound matrix with graft jacket and wound VAC right heel on 02/01/[address] Stoll. Patient is sitting up in bed. Was just released from ICU earlier. Patient has a wound VAC intact to the right heel. Patient denies pain to feet currently. No c/o fever or chills. Denies calf pain or sob. Objective - Vital Signs Vital Signs: Vital Signs Temp Pulse Resp BP Pulse Ox 02/21/18 13:20 98.7 F 96 18 150/82 97 02/21/18 10:19 98.6 F 94 18 153/84 99 02/21/18 10:04 99.0 F 99 17 141/79 96 02/21/18 07:14 97.9 F 93 14 168/77 96 02/21/18 04:11 98.9 F 93 15 137/69 98 02/21/18 00:05 98.6 F 88 14 155/75 99 02/20/18 20:39 98.6 F 94 15 157/74 100 02/20/18 17:06 98.6 F 99 15 160/69 95 Intake and Output 02/20/18 02/21/18 02/21/18 23:59 07:59 15:59 Intake Total 480 / 480 240 / 240 660 / 660 Output Total 370 / 370 200 / 200 100 / 100 Balance 110 / 110 40 / 40 560 / 560 Intake: Oral 480 / 480 240 / 240 360 / 360 Blood Product 300 / 300 Rbcs Leuko Poor As-1 Unit 300 / 300 [id number] Output: Urine 0 / 0 Catheter 350 / 350 200 / 200 100 / 100 Wound Drainage 20 / 20 Right Heel 20 / 20 Other: Meal Dinner Breakfast Percent of Meal Consumed 55% 85% # Voids 1 # Bowel Movements 0 # Bowel Movement Diapers 0 Weight 125.8 kg Blood Glucose* 122 96 107 Patient Weight 02/21/18 23:59 Weight 125.8 kg - Exam Exam: General appearance: alert awake oriented X 3. Calm and pleasant, no acute distress.. Vascular: Pulses palpable DP/PT, No evidence of cyanosis, pallor or rubor, Edema graded at 1+/4, Skin temperature warm, Homans Sign negative, capillary refill time is immediate to digits.. Integument: Skin with decreased turgor, decreased subcutaneous tissue, skin thin and shiny with trophic changes associated with comorbidities as described in history. Light erythema to BLE, skin is warm, no blisters, no ulcers, no lymphangitis, clearing of erythema to bilateral ankles and knees, dried scab noted to the medial aspect of toe #1 left foot. S/p: Right foot: wound graft in place to plantar aspect of right heel, after removal of sponge small piece of sponge adhered to 11oclock area of graft jacket- no adaptic was noted to be laid against jacket. kasey intact, graft jacket remains in place. light periwound erythema. Wound measures 6 cm in length x 6 cm in width. Healthy granulation tissue noted under graft. No streaking, no pus , no odor, 50 mls of serous drainage observed to canister. - Lab Result Diagrams: 02/21/18 03:33 02/21/18 03:33 Labs: Abnormal lab results WBC 11.9 K/mcL (4.3-11.1) H 02/21/18 03:33 RBC 2.46 M/mcL (3.82-4.97) L 02/21/18 03:33 Hgb 6.9 g/dL (11.5-15.4) L 02/21/18 03:33 Hct 22.0 % (35.3-44.9) L 02/21/18 03:33 MCHC 31.4 g/dL (31.6-35.5) L 02/21/18 03:33 RDW 16.3 % (11.5-14.5) H 02/21/18 03:33 Nucleated RBCs/100 WBC 0.2 /100 WBC (0) H 02/10/18 00:51 ESR >= 130 mm/hr (0-15) H 01/29/18 17:11 PT 19.4 Seconds (9.4-12.1) H 02/18/18 05:55 ABG pCO2 56 mmHg (35-45) H 02/15/18 04:49 ABG pO2 76 mmHg (85-104) L 02/15/18 04:49 ABG HCO3 38 mEq/L (21-27) H 02/15/18 04:49 ABG Total CO2 40 mEq/L (20-26) H 02/15/18 04:49 ABG Base Excess 13 mEq/L (-2 to 3) H 02/15/18 04:49 Carbon Dioxide 33 mEq/L (23-29) H 02/21/18 03:33 POC Glucose 107 mg/dL (70-99) H 02/21/18 11:20 Calcium 8.3 mg/dL (8.6-10.3) L 02/21/18 03:33 Venous Ioniz Calcium 1.07 mmol/L (1.15-1.35) L 02/13/18 14:48 Direct Bilirubin 0.3 mg/dL (0.0-0.2) H 01/29/18 17:11 AST 10 Units/L (13-39) L 02/18/18 05:55 ALT 6 Units/L (7-52) L 02/18/18 05:55 C-Reactive Protein 140 mg/L (Less than 10) H 01/29/18 17:11 B-Natriuretic Peptide 206 pg/mL (Less than 100) H 02/12/18 17:27 Serum Total Protein 5.8 g/dL (6.4-8.9) L 02/18/18 05:55 Albumin 2.6 g/dL (3.5-5.7) L 02/18/18 05:55 Albumin/Globulin Ratio 0.8 (1.1-2.2) L 02/18/18 05:55 Lipase 84 Units/L (11-82) H 01/29/18 17:11 Urine Protein 30 mg/dL (Neg-Trace) H 02/12/18 14:11 Ur Leukocyte Esterase Moderate (Negative) H 02/12/18 14:11 Urine Microscopic WBC 50-100 per hpf (0-3) H 02/12/18 14:11 Ur Squamous Epith Cells Many per lpf (None-Few) H 02/12/18 14:11 Urine Yeast Few per hpf (None Seen) H 02/12/18 14:11 Ur Culture Indicated? NO. (NO) A 02/12/18 14:11 Stool Occult Blood Positive (Negative) A 02/07/18 04:28 Vancomycin Trough 12 mcg/mL (5-10) H 02/03/18 05:28 Microbiology, Last 48 Hours 02/15/18 05:04 Urine Culture - Final Urine,Catheterized Natalie glabrata - VTE Documentation of Mechanical Device: Intermittent pneumatic compression device Consult Discharge Plan - Plan Referrals: Jc Tsai MD [Primary Care Provider] - ([facility] call patient at home with a date for her follow up appointment.) Prescriptions: Furosemide [Lasix] 40 mg PO BID 30 Days #60 tab Pantoprazole Sodium [Protonix] 40 mg PO BID 30 Days #60 tablet. Sucralfate [Carafate] 1 gm PO 0730,1630 30 Days #60 tablet
[2018-02-21] MEDS: Pantoprazole 40 MG VIAL IVP SCH (21:04)
[2018-02-21] MEDS: Insulin DETEMIR 100 UNIT/ML X5UNITS SQ SCH (21:04)
[2018-02-21] MEDS: Latanoprost 2.5 ML BOTTLE BOTH EYES SCH (21:05)
[2018-02-22 03:54] LABS: Basophils # 0.1 K/mcL (0.0-0.2); Basophils % 0.5 %; Eosinophils # 0.3 K/mcL (0.0-0.6); Eosinophils % 2.3 %; Hematocrit 25.4 % (35.3-44.9); Hemoglobin 8.3 g/dL (11.5-15.4); Immature Granulocytes % 0.6 % (0-4); Lymphocytes # 2.5 K/mcL (0.6-4.6); Lymphocytes % 22.8 %; Mean Corpuscular HGB Conc 32.7 g/dL (31.6-35.5); Mean Corpuscular Volume 88.8 fL (83.0-100.0); Mean Platelet Volume 11.4 fL (9.4-12.4); Monocytes # 0.9 K/mcL (0.0-1.3); Neutrophils # 7.1 K/mcL (1.6-8.9); Platelet Count 151 K/mcL (140-400); Red Blood Count 2.86 M/mcL (3.82-4.97); Red Cell Distribution Width 16.4 % (11.5-14.5); Segmented Neutrophils % 65.8 %
[2018-02-22 04:17] LABS: BUN/Creatinine Ratio 17 (6-26); Blood Urea Nitrogen 14 mg/dL (6-20); Calcium 8.2 mg/dL (8.6-10.3); Carbon Dioxide 36 mEq/L (23-29); Chloride 97 mEq/L (98-107); Glucose 103 mg/dL (70-105); Osmolality,Calculated 289 (280-300); Potassium 3.8 mEq/L (3.5-5.1); Sodium 139 mEq/L (136-145); eGFR For Non-African Americans > 60 (> 60)
[2018-02-22] MEDS: Insulin LISPRO 300 UNITS/3 ML VIAL SQ SCH ×3 (08:13→16:46)
[2018-02-22] MEDS: Potassium Citrate 10 MEQ TABLET.ER PO SCH ×2 (08:29→21:31)
[2018-02-22] MEDS: Acetaminophen 325 MG TABLET PO PRN ×2 (08:30→21:27)
[2018-02-22] MEDS: Thiamine (B-1) 100 MG TABLET PO SCH (08:31)
[2018-02-22] MEDS: Furosemide 40 MG TABLET PO SCH ×2 (08:31→16:46)
[2018-02-22] MEDS: Pantoprazole 40 MG VIAL IVP SCH ×2 (08:31→21:32)
[2018-02-22] MEDS: Diltiazem CD (24hr) 120 MG CAPSULE PO SCH (08:31)
[2018-02-22] MEDS: Lactobacillus 1 EACH CAP.SPRINK PO SCH ×2 (08:31→21:30)
[2018-02-22] MEDS: Fluticasone Propionate Nasal 50 MCG/SPRAY BOTTLE NS SCH (08:34)
[2018-02-22] MEDS ORDERED: NON-FORMULARY MEDICATION 1 EACH EACH (Losartan Potassium [Cozaar] 100 MG) PO SCH (13:39)
--- NOTE | 2018-02-22 14:13 | Internal Med Progress Note ---
Hospitalist Progress Note - Encounter Date of Encounter: 02/22/18 Time of Encounter: 09:00 - Subjective Interval History: Patient was seen and examined. Awake alert, in no acute distress. Still weak but feels better. Denies dizziness, lightheaded, or nausea. H/H stable now after transfusion. Pt has totally 11 units PRBC transfusion during hospitalization. Cont IV PPI. Cont closely monitor pt. - Exam Vitals: Temp Pulse Resp BP Pulse Ox 98.7 F 102 14 157/76 91 02/22/18 10:52 02/22/18 10:52 02/22/18 10:52 02/22/18 10:52 02/22/18 10:52 Exam: Patient is awake alert, in no acute distress. HEENT: NC/AT, PERRL Neck: Supple, no LAD Lungs: CTA b/l Heart: S1S2, RRR Abd: Soft, NT Ext: Heel wound is well dressed, ROM wnl Neuro: AAO x 3, No focal deficit. - Assessment and Plan (1) DVT prophylaxis Current Visit: Yes Status: Acute Assessment and Plan: SCDs (2) Morbid obesity Current Visit: No Status: Chronic Assessment and Plan: BMI 43, continue lifestyle modification as outpatient. (3) HTN (hypertension) Current Visit: Yes Assessment and Plan: On Coreg and Losartan -BP well controlled -consider labetolol IVP if systolic >160 (4) Diastolic heart failure Current Visit: Yes Status: Chronic Assessment and Plan: -TTE in 11/2016 showed LVEF 60%, concentric LVH, moderate diastolic dysfxn -pt should eat a heart healthy diet and lose weight -pt has no reports of chest pain, SOB, dyspnea at this time Plan: -c/w 40mg po lasix bid -continue with beta blockers -pt is on telemetry - Appears euvolemic at this point (5) Ulcer of right heel Current Visit: Yes Status: Acute Assessment and Plan: s/p debridement of right heel with podiatry. -Wound cultures growing ESBL Klebsiella, Proteus penneri, gram (+) cocci Plan: -PTOT recommended ECF, social media marketing manager on board. Pt to be d/c to SNF when stable -wound vac in place at 125mmHg suction -ID discontinued zosyn, since pt has been on IV Zosyn for 2 wks -Finished 14 days of PO Zyvox course for +VRE wound cultures - Probiotics to prevent C. difficile (6) Type 2 diabetes mellitus Current Visit: Yes Status: Chronic Assessment and Plan: cw SSI and levemir 20 units QHS. Accucheks. (7) Leukocytosis Current Visit: No Status: Chronic Assessment and Plan: Possibly reactive. Patient has finished Zosyn IV treatment for 2 weeks and 2wks of zyvox by mouth. WBC WNL today. (8) Sepsis Current Visit: Yes Status: Resolved Assessment and Plan: On admition met SIRS criteria = leukocytosis and tachycardia -possible pneumonia, bilateral leg cellulitis, right foot ulcer. Plan: -sepsis has resolved. (9) HAP (hospital-acquired pneumonia) Current Visit: Yes Status: Resolved Assessment and Plan: Zosyn d/c by ID after 14 days course -resolved, patient denies cough or fever (10) DOROTHEA (acute kidney injury) Current Visit: Yes Status: Acute Assessment and Plan: Stable and improved renal function. Continue closely monitoring (11) Acute on chronic respiratory failure with hypoxia and hypercapnia Current Visit: Yes Status: Resolved Assessment and Plan: Due to HAP. Improved after treatment (12) Acute blood loss anemia Current Visit: Yes Status: Acute Assessment and Plan: Patient was found GI bleed. Had EGD and coagulation. Continue closely monitor H&H and vitals. Cont IV PPI. (13) REGINALD treated with BiPAP Current Visit: Yes Status: Chronic Assessment and Plan: BiPAP settings as per respiratory -06/01 on 4L -will be discharged with bipap - Summary of Assessment and Plan Summary of Assessment and Plan: Patient was admitted for pneumonia and sepsis. She has finished antibiotic course. The major problem for her now is GI bleed. Patient had EGD and coagulation. Still on IV PPI, may switch to PO if H/H still stable. Continue closely monitor H&H. - Time Spent with Patient Total time spent is greater than 50% in coordination of care (as documented) at patient's floor/unit and/or counseling patient: 40 minutes Greater than 35 minutes Plan of Care Discussed with: patient Internal Medicine: Result - Labs CBC & Chem 7: 02/22/18 03:37 02/22/18 03:37 Labs: Short CBC 02/22/18 Range/Units 03:37 WBC 10.8 (4.3-11.1) K/mcL Hgb 8.3 L (11.5-15.4) g/dL Hct 25.4 L (35.3-44.9) % Plt Count 151 (140-400) K/mcL Neutrophils # 7.1 (1.6-8.9) K/mcL BMP 02/22/18 03:37 Sodium 139 Potassium 3.8 Chloride 97 L Carbon Dioxide 36 H BUN 14 Creatinine 0.83 Glucose 103 Calcium 8.2 L - ABG Interpretation ABG results: ABG ABG pH 7.44 pH Units (7.32-7.45) 02/15/18 04:49 ABG pCO2 56 mmHg (35-45) H 02/15/18 04:49 ABG pO2 76 mmHg (85-104) L 02/15/18 04:49 ABG O2 Saturation 95 % (95-98) 02/15/18 04:49 PT/INR, D-dimer PT 19.4 Seconds (9.4-12.1) H 02/18/18 05:55 - VTE Documentation of Mechanical Device: Intermittent pneumatic compression device Consult Discharge Plan - Plan Referrals: Jc Tsai MD [Primary Care Provider] - ([facility] call patient at home with a date for her follow up appointment.) Prescriptions: Furosemide [Lasix] 40 mg PO BID 30 Days #60 tab Pantoprazole Sodium [Protonix] 40 mg PO BID 30 Days #60 tablet. Sucralfate [Carafate] 1 gm PO 0730,1630 30 Days #60 tablet (7) Leukocytosis Qualifiers: Leukocytosis type: unspecified Qualified Code(s): D72.829 - Elevated white blood cell count, unspecified (8) Sepsis Qualifiers: Sepsis type: sepsis due to unspecified organism Qualified Code(s): A41.9 - Sepsis, unspecified organism
[2018-02-22] MEDS: Insulin DETEMIR 100 UNIT/ML X5UNITS SQ SCH (21:32)
[2018-02-22] MEDS: Latanoprost 2.5 ML BOTTLE BOTH EYES SCH (22:17)
[2018-02-22] MEDS: tiZANidine 4 MG TABLET PO SCH (22:56)
[2018-02-23 04:01] LABS: Basophils # 0.1 K/mcL (0.0-0.2); Basophils % 0.5 %; Eosinophils # 0.3 K/mcL (0.0-0.6); Eosinophils % 2.5 %; Hematocrit 23.2 % (35.3-44.9); Hemoglobin 7.5 g/dL (11.5-15.4); Immature Granulocytes % 0.5 % (0-4); Immature Platelets 6.2 % (1.1-6.1); Lymphocytes # 2.8 K/mcL (0.6-4.6); Lymphocytes % 25.3 %; Mean Corpuscular HGB Conc 32.3 g/dL (31.6-35.5); Mean Corpuscular Hemoglobin 28.7 pg (28.0-33.3); Mean Corpuscular Volume 88.9 fL (83.0-100.0); Mean Platelet Volume 11.6 fL (9.4-12.4); Monocytes # 0.9 K/mcL (0.0-1.3); Monocytes % 8.4 %; Neutrophils # 6.9 K/mcL (1.6-8.9); Nucleated Red Blood Cells 0.2 /100 WBC (0); Platelet Count 159 K/mcL (140-400); Red Blood Count 2.61 M/mcL (3.82-4.97); Red Cell Distribution Width 16.5 % (11.5-14.5); Segmented Neutrophils % 62.8 %
[2018-02-23 04:58] LABS: BUN/Creatinine Ratio 16 (6-26); Blood Urea Nitrogen 15 mg/dL (6-20); Calcium 8.1 mg/dL (8.6-10.3); Carbon Dioxide 36 mEq/L (23-29); Chloride 96 mEq/L (98-107); Glucose 154 mg/dL (70-105); Osmolality,Calculated 288 (280-300); Potassium 4.4 mEq/L (3.5-5.1); Sodium 137 mEq/L (136-145); eGFR For Non-African Americans > 60 (> 60)
[2018-02-23] MEDS: Insulin LISPRO 300 UNITS/3 ML VIAL SQ SCH ×3 (09:48→17:23)
[2018-02-23] MEDS: Loratadine 10 MG TABLET PO SCH (10:14)
[2018-02-23] MEDS: Lactobacillus 1 EACH CAP.SPRINK PO SCH ×2 (10:14→21:32)
[2018-02-23] MEDS: Furosemide 40 MG TABLET PO SCH ×2 (10:14→16:20)
[2018-02-23] MEDS: Thiamine (B-1) 100 MG TABLET PO SCH (10:14)
[2018-02-23] MEDS: tiZANidine 4 MG TABLET PO SCH ×3 (10:15→21:36)
[2018-02-23] MEDS: Ascorbic Acid 500 MG TABLET PO SCH (10:15)
[2018-02-23] MEDS: Diltiazem CD (24hr) 120 MG CAPSULE PO SCH (10:15)
[2018-02-23] MEDS: Potassium Citrate 10 MEQ TABLET.ER PO SCH ×2 (10:15→21:34)
[2018-02-23] MEDS: Fluticasone Propionate Nasal 50 MCG/SPRAY BOTTLE NS SCH (10:16)
[2018-02-23] MEDS: Pantoprazole 40 MG VIAL IVP SCH ×2 (10:18→21:45)
--- NOTE | 2018-02-23 12:56 | Internal Med Progress Note ---
Hospitalist Progress Note - Encounter Date of Encounter: 02/23/18 Time of Encounter: 09:00 - Subjective Interval History: Patient was seen and examined. Awake alert, in no acute distress. Still weak but feels better. Denies dizziness, lightheaded, or nausea. H/H stable slightly drop (8.3-7.5), Still bleed vs lab variation. Pt has totally 11 units PRBC transfusion during hospitalization. Cont IV PPI. Cont closely monitor pt. Cont PT/OT and wound care. - Exam Vitals: Temp Pulse Resp BP Pulse Ox 97.8 F 88 16 151/75 90 02/23/18 10:04 02/23/18 10:04 02/23/18 10:04 02/23/18 10:04 02/23/18 10:04 - Assessment and Plan (1) DVT prophylaxis Current Visit: Yes Status: Acute Assessment and Plan: SCDs (2) Morbid obesity Current Visit: No Status: Chronic Assessment and Plan: BMI 43, continue lifestyle modification as outpatient. (3) HTN (hypertension) Current Visit: Yes Assessment and Plan: On Coreg and Losartan -BP well controlled -consider labetolol IVP if systolic >160 (4) Diastolic heart failure Current Visit: Yes Status: Chronic Assessment and Plan: -TTE in 11/2016 showed LVEF 60%, concentric LVH, moderate diastolic dysfxn -pt should eat a heart healthy diet and lose weight -pt has no reports of chest pain, SOB, dyspnea at this time Plan: -c/w 40mg po lasix bid -continue with beta blockers -pt is on telemetry - Appears euvolemic at this point (5) Ulcer of right heel Current Visit: Yes Status: Acute Assessment and Plan: s/p debridement of right heel with podiatry. -Wound cultures growing ESBL Klebsiella, Proteus penneri, gram (+) cocci Plan: -PTOT recommended ECF, social media campaign manager on board. Pt to be d/c to SNF when stable -wound vac in place at 125mmHg suction -ID discontinued zosyn, since pt has been on IV Zosyn for 2 wks -Finished 14 days of PO Zyvox course for +VRE wound cultures - Probiotics to prevent C. difficile (6) Type 2 diabetes mellitus Current Visit: Yes Status: Chronic Assessment and Plan: cw SSI and levemir 20 units QHS. Accucheks. (7) Leukocytosis Current Visit: No Status: Chronic Assessment and Plan: Possibly reactive. Patient has finished Zosyn IV treatment for 2 weeks and 2wks of zyvox by mouth. WBC WNL today. (8) Sepsis Current Visit: Yes Status: Resolved Assessment and Plan: On admition met SIRS criteria = leukocytosis and tachycardia -possible pneumonia, bilateral leg cellulitis, right foot ulcer. Plan: -sepsis has resolved. (9) HAP (hospital-acquired pneumonia) Current Visit: Yes Status: Resolved Assessment and Plan: Zosyn d/c by ID after 14 days course -resolved, patient denies cough or fever (10) DOROTHEA (acute kidney injury) Current Visit: Yes Status: Acute Assessment and Plan: Stable and improved renal function. Continue closely monitoring (11) Acute on chronic respiratory failure with hypoxia and hypercapnia Current Visit: Yes Status: Resolved Assessment and Plan: Due to HAP. Improved after treatment (12) Acute blood loss anemia Current Visit: Yes Status: Acute Assessment and Plan: Patient was found GI bleed. Had EGD and coagulation. Continue closely monitor H&H and vitals. Cont IV PPI, may switch to po if H/H remains stable. (13) REGINALD treated with BiPAP Current Visit: Yes Status: Chronic Assessment and Plan: BiPAP settings as per respiratory -/ on 4L -will be discharged with bipap - Summary of Assessment and Plan Summary of Assessment and Plan: Patient was admitted for pneumonia and sepsis. She has finished antibiotic course. The major problem for her now is GI bleed. Patient had EGD and coagulation. Still on IV PPI, may switch to PO if H/H still stable. Continue closely monitor H&H. - Time Spent with Patient Total time spent is greater than 50% in coordination of care (as documented) at patient's floor/unit and/or counseling patient: 40 minutes Greater than 35 minutes Plan of Care Discussed with: patient Internal Medicine: Result - Labs CBC & Chem 7: 02/23/18 03:45 02/23/18 03:44 Labs: Short CBC 02/23/18 Range/Units 03:45 WBC 11.0 (4.3-11.1) K/mcL Hgb 7.5 L (11.5-15.4) g/dL Hct 23.2 L (35.3-44.9) % Plt Count 159 (140-400) K/mcL Neutrophils # 6.9 (1.6-8.9) K/mcL BMP 02/23/18 03:44 Sodium 137 Potassium 4.4 Chloride 96 L Carbon Dioxide 36 H BUN 15 Creatinine 0.92 Glucose 154 H Calcium 8.1 L - ABG Interpretation ABG results: ABG ABG pH 7.44 pH Units (7.32-7.45) 02/15/18 04:49 ABG pCO2 56 mmHg (35-45) H 02/15/18 04:49 ABG pO2 76 mmHg (85-104) L 02/15/18 04:49 ABG O2 Saturation 95 % (95-98) 02/15/18 04:49 PT/INR, D-dimer PT 19.4 Seconds (9.4-12.1) H 02/18/18 05:55 - VTE Documentation of Mechanical Device: Intermittent pneumatic compression device Consult Discharge Plan - Plan Referrals: Jc Tsai MD [Primary Care Provider] - ([facility] call patient at home with a date for her follow up appointment.) Prescriptions: Furosemide [Lasix] 40 mg PO BID 30 Days #60 tab Pantoprazole Sodium [Protonix] 40 mg PO BID 30 Days #60 tablet. Sucralfate [Carafate] 1 gm PO 0730,1630 30 Days #60 tablet (7) Leukocytosis Qualifiers: Leukocytosis type: unspecified Qualified Code(s): D72.829 - Elevated white blood cell count, unspecified (8) Sepsis Qualifiers: Sepsis type: sepsis due to unspecified organism Qualified Code(s): A41.9 - Sepsis, unspecified organism
[2018-02-23] MEDS: Latanoprost 2.5 ML BOTTLE BOTH EYES SCH (21:37)
[2018-02-23] MEDS: *HR* OxyCODONE Immed Rel 5 MG TABLET PO PRN (22:09)
[2018-02-23] MEDS: Insulin DETEMIR 100 UNIT/ML X5UNITS SQ SCH (22:12)
[2018-02-24] MEDS: *HR* OxyCODONE Immed Rel 5 MG TABLET PO PRN (03:23)
[2018-02-24] MEDS: Ondansetron 4 MG/2 ML VIAL IVP PRN (03:23)
[2018-02-24 06:40] LABS: Basophils # 0.1 K/mcL (0.0-0.2); Basophils % 0.5 %; Eosinophils # 0.5 K/mcL (0.0-0.6); Eosinophils % 3.6 %; Hematocrit 26.6 % (35.3-44.9); Hemoglobin 8.4 g/dL (11.5-15.4); Immature Granulocytes % 0.8 % (0-4); Lymphocytes # 3.4 K/mcL (0.6-4.6); Lymphocytes % 27.2 %; Mean Corpuscular HGB Conc 31.6 g/dL (31.6-35.5); Mean Corpuscular Hemoglobin 28.1 pg (28.0-33.3); Mean Platelet Volume 11.1 fL (9.4-12.4); Monocytes # 1.3 K/mcL (0.0-1.3); Monocytes % 10.4 %; Neutrophils # 7.3 K/mcL (1.6-8.9); Platelet Count 207 K/mcL (140-400); Red Blood Count 2.99 M/mcL (3.82-4.97); Red Cell Distribution Width 17.2 % (11.5-14.5); Segmented Neutrophils % 57.5 %
[2018-02-24] MEDS: Insulin LISPRO 300 UNITS/3 ML VIAL SQ SCH ×3 (08:03→16:28)
[2018-02-24] MEDS: Potassium Citrate 10 MEQ TABLET.ER PO SCH ×2 (08:06→21:55)
[2018-02-24] MEDS: Loratadine 10 MG TABLET PO SCH (08:07)
[2018-02-24] MEDS: Lactobacillus 1 EACH CAP.SPRINK PO SCH ×2 (08:07→21:55)
[2018-02-24] MEDS: Furosemide 40 MG TABLET PO SCH ×2 (08:07→17:02)
[2018-02-24] MEDS: tiZANidine 4 MG TABLET PO SCH ×3 (08:08→21:55)
[2018-02-24] MEDS: Thiamine (B-1) 100 MG TABLET PO SCH (08:08)
[2018-02-24] MEDS: Ascorbic Acid 500 MG TABLET PO SCH (08:08)
[2018-02-24] MEDS: Diltiazem CD (24hr) 120 MG CAPSULE PO SCH (08:08)
[2018-02-24] MEDS: Fluticasone Propionate Nasal 50 MCG/SPRAY BOTTLE NS SCH (08:23)
--- NOTE | 2018-02-24 12:58 | Internal Med Progress Note ---
Hospitalist Progress Note - Encounter Date of Encounter: 02/24/18 Time of Encounter: 09:00 - Subjective Interval History: Patient was seen and examined. Awake alert, in no acute distress. Still weak but feels better. Denies dizziness, lightheaded, or nausea. H/H stable. Pt has totally 11 units PRBC transfusion during hospitalization. Switch to po PPI. Cont closely monitor pt. Cont PT/OT and wound care. - Exam Vitals: Temp Pulse Resp BP Pulse Ox 99.2 F 78 16 110/65 93 02/24/18 11:34 02/24/18 11:34 02/24/18 11:34 02/24/18 11:34 02/24/18 11:34 - Assessment and Plan (1) DVT prophylaxis Current Visit: Yes Status: Acute Assessment and Plan: SCDs (2) Morbid obesity Current Visit: No Status: Chronic Assessment and Plan: BMI 43, continue lifestyle modification as outpatient. (3) HTN (hypertension) Current Visit: Yes Assessment and Plan: On Coreg and Losartan -BP well controlled (4) Diastolic heart failure Current Visit: Yes Status: Chronic Assessment and Plan: -TTE in 11/2016 showed LVEF 60%, concentric LVH, moderate diastolic dysfxn -pt should eat a heart healthy diet and lose weight -pt has no reports of chest pain, SOB, dyspnea at this time Plan: -c/w 40mg po lasix bid -continue with beta blockers -pt is on telemetry - Appears euvolemic at this point (5) Ulcer of right heel Current Visit: Yes Status: Acute Assessment and Plan: s/p debridement of right heel with podiatry. -Wound cultures growing ESBL Klebsiella, Proteus penneri, gram (+) cocci Plan: -PTOT recommended ECF, social work professor on board. Pt to be d/c to SNF when stable -wound vac in place -ID discontinued zosyn, since pt has been on IV Zosyn for 2 wks -Finished 14 days of PO Zyvox course for +VRE wound cultures - Probiotics to prevent C. difficile (6) Type 2 diabetes mellitus Current Visit: Yes Status: Chronic Assessment and Plan: cw SSI and levemir 30 units QHS. Accucheks. (7) Leukocytosis Current Visit: No Status: Chronic Assessment and Plan: Possibly reactive. Patient has finished Zosyn IV treatment for 2 weeks and 2wks of zyvox by mouth. WBC fluctuate at high normal level. (8) Sepsis Current Visit: Yes Status: Resolved Assessment and Plan: On admition met SIRS criteria = leukocytosis and tachycardia -possible pneumonia, bilateral leg cellulitis, right foot ulcer. Plan: -sepsis has resolved. (9) HAP (hospital-acquired pneumonia) Current Visit: Yes Status: Resolved Assessment and Plan: Zosyn d/c by ID after 14 days course -resolved, patient denies cough or fever (10) DOROTHEA (acute kidney injury) Current Visit: Yes Status: Acute Assessment and Plan: Stable and improved renal function. Continue closely monitoring (11) Acute on chronic respiratory failure with hypoxia and hypercapnia Current Visit: Yes Status: Resolved Assessment and Plan: Due to HAP. Improved after treatment (12) Acute blood loss anemia Current Visit: Yes Status: Acute Assessment and Plan: Patient was found GI bleed. Had EGD and coagulation. Continue closely monitor H&H and vitals. Switch to po PPI today. Consider discharge patient if H&H remains stable (13) REGINALD treated with BiPAP Current Visit: Yes Status: Chronic Assessment and Plan: BiPAP settings as per respiratory -06/01 on 4L -will be discharged with bipap - Summary of Assessment and Plan Summary of Assessment and Plan: Patient was admitted for pneumonia and sepsis. She has finished antibiotic course. The major problem for her now is GI bleed. Patient had EGD and coagulation. switch to PO PPI today. Continue closely monitor H&H. - Time Spent with Patient Total time spent is greater than 50% in coordination of care (as documented) at patient's floor/unit and/or counseling patient: 40 min Greater than 35 minutes Plan of Care Discussed with: patient Internal Medicine: Result - Labs CBC & Chem 7: 02/24/18 06:10 02/23/18 03:44 Labs: Short CBC 02/24/18 Range/Units 06:10 WBC 12.6 H (4.3-11.1) K/mcL Hgb 8.4 L (11.5-15.4) g/dL Hct 26.6 L (35.3-44.9) % Plt Count 207 (140-400) K/mcL Neutrophils # 7.3 (1.6-8.9) K/mcL - ABG Interpretation ABG results: ABG ABG pH 7.44 pH Units (7.32-7.45) 02/15/18 04:49 ABG pCO2 56 mmHg (35-45) H 02/15/18 04:49 ABG pO2 76 mmHg (85-104) L 02/15/18 04:49 ABG O2 Saturation 95 % (95-98) 02/15/18 04:49 PT/INR, D-dimer PT 19.4 Seconds (9.4-12.1) H 02/18/18 05:55 - VTE Documentation of Mechanical Device: Intermittent pneumatic compression device Consult Discharge Plan - Plan Referrals: Jc Tsai MD [Primary Care Provider] - ([facility] will call patient at home with a date for her follow up appointment.) Prescriptions: Furosemide [Lasix] 40 mg PO BID 30 Days #60 tab Pantoprazole Sodium [Protonix] 40 mg PO BID 30 Days #60 tablet. Sucralfate [Carafate] 1 gm PO 0730,1630 30 Days #60 tablet (7) Leukocytosis Qualifiers: Leukocytosis type: unspecified Qualified Code(s): D72.829 - Elevated white blood cell count, unspecified (8) Sepsis Qualifiers: Sepsis type: sepsis due to unspecified organism Qualified Code(s): A41.9 - Sepsis, unspecified organism
[2018-02-24] MEDS: Latanoprost 2.5 ML BOTTLE BOTH EYES SCH (21:57)
[2018-02-24] MEDS: Insulin DETEMIR 100 UNIT/ML X5UNITS SQ SCH (23:06)
[2018-02-25 03:27] LABS: Basophils # 0.1 K/mcL (0.0-0.2); Basophils % 0.7 %; Eosinophils # 0.5 K/mcL (0.0-0.6); Eosinophils % 4.4 %; Hematocrit 26.4 % (35.3-44.9); Hemoglobin 8.2 g/dL (11.5-15.4); Immature Granulocytes % 0.8 % (0-4); Lymphocytes # 3.6 K/mcL (0.6-4.6); Lymphocytes % 29.2 %; Mean Corpuscular HGB Conc 31.1 g/dL (31.6-35.5); Mean Corpuscular Hemoglobin 27.7 pg (28.0-33.3); Mean Corpuscular Volume 89.2 fL (83.0-100.0); Mean Platelet Volume 10.9 fL (9.4-12.4); Monocytes # 1.1 K/mcL (0.0-1.3); Monocytes % 8.7 %; Neutrophils # 6.9 K/mcL (1.6-8.9); Platelet Count 211 K/mcL (140-400); Red Blood Count 2.96 M/mcL (3.82-4.97); Red Cell Distribution Width 17.1 % (11.5-14.5); Segmented Neutrophils % 56.2 %
[2018-02-25] MEDS: Insulin LISPRO 300 UNITS/3 ML VIAL SQ SCH ×3 (08:05→16:41)
[2018-02-25] MEDS: Thiamine (B-1) 100 MG TABLET PO SCH (08:16)
[2018-02-25] MEDS: Lactobacillus 1 EACH CAP.SPRINK PO SCH ×2 (08:16→22:08)
[2018-02-25] MEDS: tiZANidine 4 MG TABLET PO SCH ×3 (08:16→22:09)
[2018-02-25] MEDS: Ascorbic Acid 500 MG TABLET PO SCH (08:16)
[2018-02-25] MEDS: Furosemide 40 MG TABLET PO SCH ×2 (08:17→16:41)
[2018-02-25] MEDS: Loratadine 10 MG TABLET PO SCH (08:17)
[2018-02-25] MEDS: Diltiazem CD (24hr) 120 MG CAPSULE PO SCH (08:18)
[2018-02-25] MEDS: Potassium Citrate 10 MEQ TABLET.ER PO SCH ×2 (08:18→22:09)
[2018-02-25] MEDS: Fluticasone Propionate Nasal 50 MCG/SPRAY BOTTLE NS SCH (08:28)
--- NOTE | 2018-02-25 11:54 | Internal Med Progress Note ---
Hospitalist Progress Note - Encounter Date of Encounter: 02/25/18 Time of Encounter: 09:00 - Subjective Interval History: Patient was seen and examined. Awake alert, in no acute distress. Still weak but feels better. Denies dizziness, lightheaded, or nausea. H/H stable. Pt has totally 11 units PRBC transfusion during hospitalization. Switch to po PPI. Cont closely monitor pt. Cont PT/OT and wound care. - Exam Vitals: Temp Pulse Resp BP Pulse Ox 98.6 F 75 15 111/57 92 02/25/18 11:09 02/25/18 11:02/25/18 11:02/25/18 11:02/25/18 11:09 Exam: Pt is AAO x 3, in NAD HEENT: AC/NT, PERRL Neck: Supple, no LAD Lungs: CTA b/l Heart: S1S2, RRR Abd: Soft, NT, normal BS Ext: ROM wnl, Right heel wound on wound vac Neuro: AAO x 3, no focal deficit. - Assessment and Plan (1) DVT prophylaxis Current Visit: Yes Status: Acute Assessment and Plan: SCDs (2) Morbid obesity Current Visit: No Status: Chronic Assessment and Plan: BMI 43, continue lifestyle modification as outpatient. (3) HTN (hypertension) Current Visit: Yes Assessment and Plan: On Coreg and Losartan -BP well controlled (4) Diastolic heart failure Current Visit: Yes Status: Chronic Assessment and Plan: -TTE in 11/2016 showed LVEF 60%, concentric LVH, moderate diastolic dysfxn -pt should eat a heart healthy diet and lose weight -pt has no reports of chest pain, SOB, dyspnea at this time Plan: -c/w 40mg po lasix bid -continue with beta blockers -pt is on telemetry - Appears euvolemic at this point (5) Ulcer of right heel Current Visit: Yes Status: Acute Assessment and Plan: s/p debridement of right heel with podiatry. -Wound cultures growing ESBL Klebsiella, Proteus penneri, gram (+) cocci Plan: -PTOT recommended ECF, social science research assistant on board. Pt to be d/c to SNF when stable -wound vac in place -ID discontinued zosyn, since pt has been on IV Zosyn for 2 wks -Finished 14 days of PO Zyvox course for +VRE wound cultures - Probiotics to prevent C. difficile (6) Type 2 diabetes mellitus Current Visit: Yes Status: Chronic Assessment and Plan: cw SSI and levemir 30 units QHS. Accucheks. (7) Leukocytosis Current Visit: No Status: Chronic Assessment and Plan: Possibly reactive. Patient has finished Zosyn IV treatment for 2 weeks and 2wks of zyvox by mouth. WBC fluctuate at high normal level. (8) Sepsis Current Visit: Yes Status: Resolved Assessment and Plan: On admition met SIRS criteria = leukocytosis and tachycardia -possible pneumonia, bilateral leg cellulitis, right foot ulcer. Plan: -sepsis has resolved. (9) HAP (hospital-acquired pneumonia) Current Visit: Yes Status: Resolved Assessment and Plan: Zosyn d/c by ID after 14 days course -resolved, patient denies cough or fever (10) DOROTHEA (acute kidney injury) Current Visit: Yes Status: Acute Assessment and Plan: Stable and improved renal function. Continue closely monitoring (11) Acute on chronic respiratory failure with hypoxia and hypercapnia Current Visit: Yes Status: Resolved Assessment and Plan: Due to HAP. Improved after treatment (12) Acute blood loss anemia Current Visit: Yes Status: Acute Assessment and Plan: Patient was found GI bleed. Had EGD and coagulation. Continue closely monitor H&H and vitals. Switch to po PPI . Consider discharge patient if H&H remains stable (13) REGINALD treated with BiPAP Current Visit: Yes Status: Chronic Assessment and Plan: BiPAP settings as per respiratory -06/01 on 4L -will be discharged with bipap - Summary of Assessment and Plan Summary of Assessment and Plan: Patient was admitted for pneumonia and sepsis. She has finished antibiotic course. The major problem for her now is GI bleed. Patient had EGD and coagulation. switch to PO PPI now. Continue closely monitor H&H. Plan is to dc to ECF tomorrow if H/H remains stable. - Time Spent with Patient Total time spent is greater than 50% in coordination of care (as documented) at patient's floor/unit and/or counseling patient: 40 min Greater than 35 minutes Plan of Care Discussed with: patient Internal Medicine: Result - Labs CBC & Chem 7: 02/25/18 03:10 02/23/18 03:44 Labs: Short CBC 02/25/18 Range/Units 03:10 WBC 12.2 H (4.3-11.1) K/mcL Hgb 8.2 L (11.5-15.4) g/dL Hct 26.4 L (35.3-44.9) % Plt Count 211 (140-400) K/mcL Neutrophils # 6.9 (1.6-8.9) K/mcL - ABG Interpretation ABG results: ABG ABG pH 7.44 pH Units (7.32-7.45) 02/15/18 04:49 ABG pCO2 56 mmHg (35-45) H 02/15/18 04:49 ABG pO2 76 mmHg (85-104) L 02/15/18 04:49 ABG O2 Saturation 95 % (95-98) 02/15/18 04:49 PT/INR, D-dimer PT 19.4 Seconds (9.4-12.1) H 02/18/18 05:55 - VTE Documentation of Mechanical Device: Intermittent pneumatic compression device Consult Discharge Plan - Plan Referrals: Jc Tsai MD [Primary Care Provider] - ([facility] call patient at home with a date for her follow up appointment.) Prescriptions: Furosemide [Lasix] 40 mg PO BID 30 Days #60 tab Pantoprazole Sodium [Protonix] 40 mg PO BID 30 Days #60 tablet. Sucralfate [Carafate] 1 gm PO 0730,1630 30 Days #60 tablet (7) Leukocytosis Qualifiers: Leukocytosis type: unspecified Qualified Code(s): D72.829 - Elevated white blood cell count, unspecified (8) Sepsis Qualifiers: Sepsis type: sepsis due to unspecified organism Qualified Code(s): A41.9 - Sepsis, unspecified organism
[2018-02-25] MEDS: Latanoprost 2.5 ML BOTTLE BOTH EYES SCH (22:08)
[2018-02-25] MEDS: Insulin DETEMIR 100 UNIT/ML X5UNITS SQ SCH (22:09)
[2018-02-25] MEDS ORDERED: Simethicone 80 MG TAB.CHEW PO PRN (22:40)
[2018-02-26 06:49] LABS: Hematocrit 30.1 % (35.3-44.9); Hemoglobin 9.6 g/dL (11.5-15.4); Mean Corpuscular HGB Conc 31.9 g/dL (31.6-35.5); Mean Corpuscular Hemoglobin 28.7 pg (28.0-33.3); Mean Corpuscular Volume 89.9 fL (83.0-100.0); Mean Platelet Volume 11.2 fL (9.4-12.4); Platelet Count 233 K/mcL (140-400); Red Blood Count 3.35 M/mcL (3.82-4.97); Red Cell Distribution Width 17.2 % (11.5-14.5)
[2018-02-26] MEDS: Insulin LISPRO 300 UNITS/3 ML VIAL SQ SCH ×3 (08:04→16:32)
[2018-02-26] MEDS: Thiamine (B-1) 100 MG TABLET PO SCH (08:05)
[2018-02-26] MEDS: Diltiazem CD (24hr) 120 MG CAPSULE PO SCH (08:05)
[2018-02-26] MEDS: Lactobacillus 1 EACH CAP.SPRINK PO SCH (08:05)
[2018-02-26] MEDS: Potassium Citrate 10 MEQ TABLET.ER PO SCH (08:05)
[2018-02-26] MEDS: Ascorbic Acid 500 MG TABLET PO SCH (08:05)
[2018-02-26] MEDS: Fluticasone Propionate Nasal 50 MCG/SPRAY BOTTLE NS SCH (08:06)
[2018-02-26] MEDS: Loratadine 10 MG TABLET PO SCH (08:06)
[2018-02-26] MEDS: Furosemide 40 MG TABLET PO SCH ×2 (08:06→16:47)
[2018-02-26] MEDS: tiZANidine 4 MG TABLET PO SCH ×2 (08:06→16:46)
[2018-02-26] MEDS: Acetaminophen 325 MG TABLET PO PRN (08:12)
[2018-02-26 11:02] VITALS: BP 107/61
--- NOTE | 2018-02-26 13:18 | Discharge Summary ---
- NOTES TO OUTPATIENT PROVIDER Notes to Outpatient Provider: 1. Pt had recent GI bleed, plz follow up with her hemoglobin in one week. Cont PO PPI and carafate. 2. Pt has DM, her insulin dose now is Insulin DETEMIR 30 units HS plus low dose sliding scale, which is lower than her home dose. Plz monitor Glu and adjust dose of insulin gradually. Date of Encounter: 02/26/18 Time of Encounter: 11:00 - Discharge Diagnosis (1) DVT prophylaxis Priority: Secondary Status: Acute (2) Morbid obesity Priority: Secondary Status: Chronic (3) HTN (hypertension) Priority: Secondary (4) Diastolic heart failure Priority: Secondary Status: Chronic (5) Ulcer of right heel Priority: Primary Status: Acute (6) Type 2 diabetes mellitus Priority: Secondary Status: Chronic (7) Leukocytosis Priority: Secondary Status: Chronic Qualifiers: Leukocytosis type: unspecified Qualified Code(s): D72.829 - Elevated white blood cell count, unspecified (8) Sepsis Priority: Primary Status: Resolved Qualifiers: Sepsis type: sepsis due to unspecified organism Qualified Code(s): A41.9 - Sepsis, unspecified organism (9) HAP (hospital-acquired pneumonia) Priority: Primary Status: Resolved (10) DOROTHEA (acute kidney injury) Priority: Primary Status: Acute (11) Acute on chronic respiratory failure with hypoxia and hypercapnia Priority: Primary Status: Resolved (12) Acute blood loss anemia Priority: Primary Status: Acute (13) REGINALD treated with BiPAP Priority: Secondary Status: Chronic Hospital course: Ms. Magallanes is a 58 year old female Discharge discussed with: patient - Time Spent with Patient Total time spent providing and/or coordinating discharge services: 45 min Greater than 30 minutes - Discharge Medications Prescriptions: Ferrous Sulfate 325 mg PO BIDWM 30 Days #60 tablet Sucralfate [Carafate] 1 gm PO 0730,1630 30 Days #60 tablet Home Medications: Atorvastatin [Lipitor] 40 mg PO HS 01/11/16 [History] Insulin ASPART [Novolog Flexpen] 6 - 14 unit SQ TID 01/11/16 [History] Latanoprost [Xalatan] 1 drop BOTH EYES HS 01/11/16 [History] Primidone [Mysoline] 25 - 50 mg PO BID PRN 01/11/16 [History] Ascorbic Acid [Vitamin C] 500 mg PO BID 03/25/16 [History] Docusate Sodium [Colace] 200 mg PO BID 03/25/16 [History] Furosemide [Lasix] 40 mg PO BID 12/06/16 [History] Fluticasone Propionate Nasal [Flonase] 2 spray NS DAILY #1 bottle 08/28/17 [Rx] Brimonidine Tartrate/Timolol [Combigan 0.2%-0.5% Eye Drops] 1 drop OP BID [History] Esomeprazole Magnesium [Nexium] 40 mg PO DAILY 11/10/17 [History] Gentamicin Oint [Garamycin] 1 appl TP BID 11/10/17 [History] Ketoconazole 2% CRM [Nizoral Cream] 1 appl TP DAILY 11/10/17 [History] Ketorolac Tromethamine 1 drop OP QID 11/10/17 [History] Losartan Potassium [Cozaar] 100 mg PO DAILY 11/10/17 [History] Tizanidine HCl 4 mg PO TID 11/20/17 [History] Calcium Carbonate [Tums] 1,000 mg PO Q4HR PRN tab.chew 11/24/17 [Rx] Carvedilol [Coreg] 6.25 mg PO BIDWM tablet 11/24/17 [Rx] Lactobacillus Acidophilus [Acidophilus] 1 each PO BID #10 capsule 11/24/17 [Rx] Pregabalin [Lyrica] 75 mg PO BID 30 Days #60 capsule 11/24/17 [Rx] clonazePAM [Klonopin] 0.5 mg PO BID PRN 5 Days #10 tablet 11/24/17 [Rx] Gabapentin [Neurontin] 300 mg PO HS 01/17/18 [History] Potassium Chloride [K-Tab ER] 20 meq PO QID 01/17/18 [History] Nystatin POWDER [Nystop] 1 appl TP BID bottle 01/23/18 [Rx] Ferrous Sulfate 325 mg PO BID 01/30/18 [History] Loratadine [Allergy Relief] 10 mg PO DAILY 01/30/18 [History] Pantoprazole Sodium [Protonix] 40 mg PO DAILY 01/30/18 [History] Polyethylene Glycol 3350 [MiraLAX] 17 gm PO DAILY 01/30/18 [History] Sucralfate [Carafate] 1 gm PO 0730,1630 30 Days #60 tablet 02/16/18 [Rx] Diltiazem CD (24hr) [Cardizem CD] 120 mg PO DAILY 02/20/18 [History] Collagenase Oint [Santyl] 1 appl TP DAILY tube 02/26/18 [Rx] Ferrous Sulfate 325 mg PO BIDWM 30 Days #60 tablet 02/26/18 [Rx] Insulin DETEMIR [Levemir] 30 unit SQ HS [id number] 02/26/18 [Rx] Ipratropium/Albuterol Neb [Duoneb] 3 ml IH [id number] PRN inhsol 02/26/18 [Rx] Simethicone [Gas-X] 80 mg PO TID PRN tab.chew 02/26/18 [Rx] Allergies/Adverse Reactions: 3 Allergy/AdvReac Type Severity Reaction Status Date / Time lisinopril [From Zestril] Allergy Rash Verified 01/17/18 13:50 Date of admission: 01/30/18 18:32 Primary care physician: Jc Tsai MD Consults: 02/01/18 15:43 Consult to [employer] Field Supervisor [CONS] Routine Reason for SW Consult: will need rehab at discharge 02/07/18 08:09 Consult to Gastroenterology [CONS] Routine Consulting Provider: Gastroenterology Isabella Reason for Consult: FOBT(+) Call Completed: No 02/12/18 16:44 Consult to Pulmonary Rehab [CONS] Routine Reason for Consult: worsening respiratory status on BiPAP Call Completed: Yes Discharging clinician: Sophie Jacob Anticipated date of discharge: 02/26/18 - Constitutional Vitals: Temp Pulse Resp BP Pulse Ox 97.4 F L 68 14 107/61 99 02/26/18 11:00 02/26/18 11:00 02/26/18 11:00 02/26/18 11:00 02/26/18 11:00 General appearance: Present: cooperative, A&O X 3, morbidly obese, answers questions appropriately - Head Head exam: Present: atraumatic, normocephalic - Eye Eye exam: Present: PERRL, conjuntiva pink, sclera anicteric Pupils: Present: PERRL - Neck Neck exam general surgery: Present: supple, trachea midline. Absent: lymphadenopathy - Respiratory Respiratory exam: Present: CTAB. Absent: accessory muscle use, rales, rhonchi, wheezes - Cardiovascular Cardiovascular exam: Present: RRR, +S1, +S2. Absent: diastolic murmur, gallop, rubs, systolic murmur - GI/Abdominal GI/Abdominal exam: Present: normal bowel sounds, soft, no peritoneal signs. Absent: distended, tenderness - Extremities Exam Extremities exam: Present: warm, radial pulses palpable and symmetrical. Absent : calf tenderness, cyanotic, pedal edema Additional comments: Right heel wound on wound vac - Neurological Exam Neurological exam: Present: CN II-XII intact, oriented X3, no focal deficits. Absent: pronater drift, facial droop, speech deficit - Skin Skin exam: Present: dry, intact - Patient Status Disposition: Transfer SNF Condition: Fair Functional capacity at discharge: bed bound Overall status at discharge: patient is progressing back to baseline - Discharge Instructions Follow Up With: Jc Tsai MD [Primary Care Provider] - ([facility] patient at home with a date for her follow up appointment.) Ghassan Stoll DPM [Partnered Physician] - 03/01/18 Additional Instructions: Follow up with wound care and podiatry. - Diet and Activity Activity: as per physical therapy Diet: diabetic diet, low fat, low cholesterol, low salt diet - VTE Documentation of Mechanical Device: Intermittent pneumatic compression device
--- NOTE | 2018-02-26 13:30 | Physician Discharge Referral ---
ExtendedCare Referral Info Transfer To: F Provider in Charge after Transfer: Other - Diagnosis (1) DVT prophylaxis Status: Acute (2) Morbid obesity Status: Chronic (3) HTN (hypertension) (4) Diastolic heart failure Status: Chronic (5) Ulcer of right heel Status: Acute (6) Type 2 diabetes mellitus Status: Chronic (7) Leukocytosis Status: Chronic (8) Sepsis Status: Resolved (9) HAP (hospital-acquired pneumonia) Status: Resolved (10) DOROTHEA (acute kidney injury) Status: Acute (11) Acute on chronic respiratory failure with hypoxia and hypercapnia Status: Resolved (12) Acute blood loss anemia Status: Acute (13) REGINALD treated with BiPAP Status: Chronic - Transfer Medications Prescriptions: Ferrous Sulfate 325 mg PO BIDWM 30 Days #60 tablet Sucralfate [Carafate] 1 gm PO 0730,1630 30 Days #60 tablet Home Medications: Atorvastatin [Lipitor] 40 mg PO HS 01/11/16 [History] Insulin ASPART [Novolog Flexpen] 6 - 14 unit SQ TID 01/11/16 [History] Latanoprost [Xalatan] 1 drop BOTH EYES HS 01/11/16 [History] Primidone [Mysoline] 25 - 50 mg PO BID PRN 01/11/16 [History] Ascorbic Acid [Vitamin C] 500 mg PO BID 03/25/16 [History] Docusate Sodium [Colace] 200 mg PO BID 03/25/16 [History] Furosemide [Lasix] 40 mg PO BID 12/06/16 [History] Fluticasone Propionate Nasal [Flonase] 2 spray NS DAILY #1 bottle 08/28/17 [Rx] Brimonidine Tartrate/Timolol [Combigan 0.2%-0.5% Eye Drops] 1 drop OP BID [History] Esomeprazole Magnesium [Nexium] 40 mg PO DAILY 11/10/17 [History] Gentamicin Oint [Garamycin] 1 appl TP BID 11/10/17 [History] Ketoconazole 2% CRM [Nizoral Cream] 1 appl TP DAILY 11/10/17 [History] Ketorolac Tromethamine 1 drop OP QID 11/10/17 [History] Losartan Potassium [Cozaar] 100 mg PO DAILY 11/10/17 [History] Tizanidine HCl 4 mg PO TID 11/20/17 [History] Calcium Carbonate [Tums] 1,000 mg PO Q4HR PRN tab.chew 11/24/17 [Rx] Carvedilol [Coreg] 6.25 mg PO BIDWM tablet 11/24/17 [Rx] Lactobacillus Acidophilus [Acidophilus] 1 each PO BID #10 capsule 11/24/17 [Rx] Pregabalin [Lyrica] 75 mg PO BID 30 Days #60 capsule 11/24/17 [Rx] clonazePAM [Klonopin] 0.5 mg PO BID PRN 5 Days #10 tablet 11/24/17 [Rx] Gabapentin [Neurontin] 300 mg PO HS 01/17/18 [History] Potassium Chloride [K-Tab ER] 20 meq PO QID 01/17/18 [History] Nystatin POWDER [Nystop] 1 appl TP BID bottle 01/23/18 [Rx] Ferrous Sulfate 325 mg PO BID 01/30/18 [History] Loratadine [Allergy Relief] 10 mg PO DAILY 01/30/18 [History] Pantoprazole Sodium [Protonix] 40 mg PO DAILY 01/30/18 [History] Polyethylene Glycol 3350 [MiraLAX] 17 gm PO DAILY 01/30/18 [History] Sucralfate [Carafate] 1 gm PO 0730,1630 30 Days #60 tablet 02/16/18 [Rx] Diltiazem CD (24hr) [Cardizem CD] 120 mg PO DAILY 02/20/18 [History] Collagenase Oint [Santyl] 1 appl TP DAILY tube 02/26/18 [Rx] Ferrous Sulfate 325 mg PO BIDWM 30 Days #60 tablet 02/26/18 [Rx] Insulin DETEMIR [Levemir] 30 unit SQ HS [id number] 02/26/18 [Rx] Ipratropium/Albuterol Neb [Duoneb] 3 ml IH [id number] PRN inhsol 02/26/18 [Rx] Simethicone [Gas-X] 80 mg PO TID PRN tab.chew 02/26/18 [Rx] Allergies/Adverse Reactions: 3 Allergy/AdvReac Type Severity Reaction Status Date / Time lisinopril [From Zestril] Allergy Rash Verified 01/17/18 13:50 - Respiratory Orders Oxygen / L per min, Other (CPAP/BiPAP during night) Smoking Cessation: Smoking cessation has been advised. For more information, call the [place] Tobacco Quit Line at 7-204-EPXH-NOW. - Lab Orders Lab Orders: CBC (on 03/05/18) - Advance Directives Living Will: Yes Code Status: Full Code - Rehabiliation Orders Rehab Potential: Fair Rehab Orders: Evaluation for Physical Therapy, Evaluation for Occupational Therapy - Diet Orders No Concentrated Sweets, Cardiac CERTIFICATION: I certify that the transfer of the above named patient to an Extended Care Facility is necessary for the continuing treatment of the diagnosis listed. The above information is true and accurate reflection of patient's current condition. Confidential - Redisclosure prohibited without a patient's written consent.
--- NOTE | 2018-02-26 15:06 | Podiatry Progress Note ---
Date of Encounter: 02/26/18 Time of Encounter: 12:20 - Assessment and Plan (1) Chronic venous hypertension w/ulcer and inflammation involv both sides Current Visit: No Status: Chronic (2) Diabetes mellitus Current Visit: No Status: Chronic Qualifiers: Diabetes mellitus type: type 2 Diabetes mellitus halfway insulin use: with intermediate designer use Diabetes mellitus complication status: with skin complications Diabetes mellitus complication detail: with other skin complication Qualified Code(s): E11.628 - Type 2 diabetes mellitus with other skin complications; Z79.4 - FDC (current) use of insulin (3) Ulcer of right heel Current Visit: Yes Status: Acute S/p incision and drainage and debridement of all necrotic tissue right foot/ heel, application of PuraPly wound matrix with graft jacket and wound VAC right heel on 02/01/[address] Stoll. Overall significant improvement in erythema and swelling to BLE. Graft in place to right heel with wound vac. Wound cultures of right leg from 01/18/18 isolated MRSA. Surgical biopsy culture from 02/01/18- Klebsiella pneumoniae MDRO, proteus penneri, Vancomycin Enterococcus faecium Wound culture right foot 02/01/18- Klebsiella pneumoniae MDRO, proteus penneri, Vancomycin Enterococcus faecium Lower Extremity CT 01/29/18 16:56 IMPRESSION: 1. Re- demonstration of extensive subcutaneous edema skin thickening of the bilateral lower extremities similar to previous exam. Findings may reflect chronic venous stasis/lymph edema versus cellulitis. No organized drainable fluid collection identified. 2. Ulceration identified along the plantar aspect of the right foot at the level of the calcaneus which is new compared with previous exam. 3. Re- demonstration of remote fracture of the left 5th metatarsal base with no evidence for osseous bridging or callus formation. Plan Wound vac due to be changed today, rehab facility requesting to apply wound vac once patient arrives. Nurse instructed to apply adaptic with 4x4 gauze and kerlix until wound vac can be reconnected. Continue wound vac dressing changes as ordered. Antibiotics per Infectious Disease. Plan for patient to be discharged to [facility] today Follow up with Dr. Stoll in wound care one week after discharge from hospital. NWB to right foot. Qualifiers: Non-pressure ulcer stage: unspecified non-pressure ulcer stage Qualified Code(s): L97.419 - Non-pressure chronic ulcer of right heel and midfoot with unspecified severity (4) Venous stasis dermatitis of both lower extremities Current Visit: Yes Status: Chronic Overall significant improvement to stasis dermatitis of BLE. Plan: Keep BLE elevated. Continue wound care as ordered. Subjective Principal diagnosis: Acute on Chronic Respiratory Failure Interval history: Patient is s/p incision and drainage and debridement of all necrotic tissue right foot/heel, application of PuraPly wound matrix with graft jacket and wound VAC right heel on 02/01/[address] Stoll. Patient is sitting up in bed. Patient has a wound VAC intact to the right heel. Patient denies pain to feet currently. Patient is sitting up in bed and states she is suppose to be discharged to a rehab facility today. No c/o fever or chills. Objective - Vital Signs Vital Signs: Vital Signs Temp Pulse Resp BP Pulse Ox 02/26/18 11:00 97.4 F L 68 14 107/61 99 02/26/18 07:44 97.9 F 77 14 147/67 97 02/26/18 04:26 97.4 F L 77 15 150/68 95 02/25/18 23:58 98.2 F 75 16 139/72 96 02/25/18 19:00 98.2 F 81 17 144/72 93 Intake and Output 02/25/18 02/26/18 02/26/18 23:59 07:59 15:59 Intake Total 240 / 240 0 / 0 240 / 240 Output Total 1000 / 1000 400 / 400 0 / 0 Balance -760 / -760 -400 / -400 240 / 240 Intake: Oral 240 / 240 0 / 0 240 / 240 Output: Catheter 1000 / 1000 400 / 400 0 / 0 Other: Meal Dinner Breakfast Percent of Meal Consumed 85% 100% Stool Size Small Small Stool Consistency soft soft Stool Color Brown Black # Bowel Movements 0 1 # Bowel Movement Diapers 1 Weight 123.6 kg Blood Glucose* 146 156 186 Patient Weight 02/26/18 23:59 Weight 123.6 kg - Exam Exam: General appearance: alert awake oriented X 3. Calm and pleasant, no acute distress.. Vascular: Unable to palpate pedal pulses due to edema, No evidence of cyanosis, pallor or rubor, Edema graded at 2+/4, Skin temperature warm, Homans Sign negative, capillary refill time is immediate to digits.. Integument: Skin with decreased turgor, decreased subcutaneous tissue, skin thin and shiny with trophic changes associated with comorbidities as described in history. Decreased Erythema to BLE, skin is warm, no lymphangitis, clearing of erythema to bilateral ankles and knees S/p: Right foot, wound vac intact, no strike through drainage, 10 ml of serous drainage observed to canister. - Lab Result Diagrams: 02/26/18 06:26 02/23/18 03:44 Labs: Abnormal lab results WBC 13.2 K/mcL (4.3-11.1) H 02/26/18 06:26 RBC 3.35 M/mcL (3.82-4.97) L 02/26/18 06:26 Hgb 9.6 g/dL (11.5-15.4) L 02/26/18 06:26 Hct 30.1 % (35.3-44.9) L 02/26/18 06:26 RDW 17.2 % (11.5-14.5) H 02/26/18 06:26 Nucleated RBCs/100 WBC 0.2 /100 WBC (0) H 02/23/18 03:45 Immature Plt Fraction 6.2 % (1.1-6.1) H 02/23/18 03:45 ESR >= 130 mm/hr (0-15) H 01/29/18 17:11 PT 19.4 Seconds (9.4-12.1) H 02/18/18 05:55 ABG pCO2 56 mmHg (35-45) H 02/15/18 04:49 ABG pO2 76 mmHg (85-104) L 02/15/18 04:49 ABG HCO3 38 mEq/L (21-27) H 02/15/18 04:49 ABG Total CO2 40 mEq/L (20-26) H 02/15/18 04:49 ABG Base Excess 13 mEq/L (-2 to 3) H 02/15/18 04:49 Chloride 96 mEq/L (98-107) L 02/23/18 03:44 Carbon Dioxide 36 mEq/L (23-29) H 02/23/18 03:44 Glucose 154 mg/dL (70-105) H 02/23/18 03:44 POC Glucose 184 mg/dL (70-99) H 02/26/18 10:56 Calcium 8.1 mg/dL (8.6-10.3) L 02/23/18 03:44 Venous Ioniz Calcium 1.07 mmol/L (1.15-1.35) L 02/13/18 14:48 Direct Bilirubin 0.3 mg/dL (0.0-0.2) H 01/29/18 17:11 AST 10 Units/L (13-39) L 02/18/18 05:55 ALT 6 Units/L (7-52) L 02/18/18 05:55 C-Reactive Protein 140 mg/L (Less than 10) H 01/29/18 17:11 B-Natriuretic Peptide 206 pg/mL (Less than 100) H 02/12/18 17:27 Serum Total Protein 5.8 g/dL (6.4-8.9) L 02/18/18 05:55 Albumin 2.6 g/dL (3.5-5.7) L 02/18/18 05:55 Albumin/Globulin Ratio 0.8 (1.1-2.2) L 02/18/18 05:55 Lipase 84 Units/L (11-82) H 01/29/18 17:11 Urine Protein 30 mg/dL (Neg-Trace) H 02/12/18 14:11 Ur Leukocyte Esterase Moderate (Negative) H 02/12/18 14:11 Urine Microscopic WBC 50-100 per hpf (0-3) H 02/12/18 14:11 Ur Squamous Epith Cells Many per lpf (None-Few) H 02/12/18 14:11 Urine Yeast Few per hpf (None Seen) H 02/12/18 14:11 Ur Culture Indicated? NO. (NO) A 02/12/18 14:11 Stool Occult Blood Positive (Negative) A 02/07/18 04:28 Vancomycin Trough 12 mcg/mL (5-10) H 02/03/18 05:28 - VTE Documentation of Mechanical Device: Intermittent pneumatic compression device Consult Discharge Plan - Plan Additional Instructions: Follow up with wound care and podiatry. Referrals: Ghassan Stoll DPM [Partnered Physician] - 03/01/18 Jc Tsai MD [Primary Care Provider] - (Doctors office will call patient at home with a date for her follow up appointment.) Prescriptions: clonazePAM [Klonopin] 0.5 mg PO BID PRN 5 Days #10 tablet PRN Reason: Anxiety Ferrous Sulfate 325 mg PO BIDWM 30 Days #60 tablet Pregabalin [Lyrica] 75 mg PO BID 30 Days #60 capsule Sucralfate [Carafate] 1 gm PO 0730,1630 30 Days #60 tablet
== END 2018-02-26 18:34 | DRG 720 ==
LOC: EMEROO 16:35 → 2NENU 16:35 → SUATTDRO 21:36 → 2NENU 22:05 → ICNU 02-12 17:27 → 2NENU 02-14 17:05 → ICNU 02-18 01:50 → 3ANU 02-20 16:40 → UNDODISIN 02-26 16:10
PROVIDERS: ADMIT Internal Medicine; ATTEND Internal Medicine
PROC: ENDOEBX (2018-02-19 14:00)

== ENCOUNTER 2018-03-07 12:14 | Observation (INO) ==
--- NOTE | 2018-03-07 12:29 | Emergency Department Note ---
Disposition Clinical Impression: DOROTHEA (acute kidney injury), Leg wound, right UTI (urinary tract infection) Qualifiers: Urinary tract infection type: site unspecified Hematuria presence: without hematuria Qualified Code(s): N39.0 - Urinary tract infection, site not specified Anemia Qualifiers: Anemia type: unspecified type Qualified Code(s): D64.9 - Anemia, unspecified Disposition: Admitted As Inpatient Condition: Fair Referrals: Jc Tsai MD [Primary Care Provider] - Forms: ED Satisfaction Letter, Work/School Release Time of Disposition: 14:50 General Adult HPI - General Chief complaint: ED General Medical Stated complaint: Low Bp Time Seen by Provider: 03/07/18 12:17 Source: patient, EMS Mode of arrival: EMS Limitations: no limitations Nursing Notes Reviewed: Yes Vital Signs Reviewed: Yes - History of Present Illness HPI Narrative: 58-year-old fever with history of diabetes, hypertension, chronic right foot wound presents for evaluation of a low blood pressure. Patient was seen at the wound care clinic prior to arrival. At that facility the patient had a blood pressure of 94 systolic. They discussed the patient's blood pressure with signature and was told to go to the ER for evaluation. Patient states she feels fine. States she is on chronic blood pressure medications and states she did take her medications earlier today. Patient denies any chest pain. No fevers or cough. No abdominal pain. Notes chronic right lower leg wound with wound VAC in place. Not currently on any antibiotics. No fevers or cough. Pain Scale: 0 - Related Data Home Medications Medication Instructions Recorded Confirmed Atorvastatin [Lipitor] 40 mg PO HS 01/11/16 01/30/18 Insulin ASPART [Novolog Flexpen] 6 - 14 unit SQ TID 01/11/16 01/30/18 Latanoprost [Xalatan] 1 drop BOTH EYES HS 01/11/16 01/30/18 Primidone [Mysoline] 25 - 50 mg PO BID PRN 01/11/16 01/30/18 Ascorbic Acid [Vitamin C] 500 mg PO BID 03/25/16 01/17/18 Docusate Sodium [Colace] 200 mg PO BID 03/25/16 01/30/18 Furosemide [Lasix] 40 mg PO BID 12/06/16 01/30/18 Brimonidine Tartrate/Timolol 1 drop OP BID 11/10/17 01/30/18 [Combigan 0.2%-0.5% Eye Drops] Esomeprazole Magnesium [Nexium] 40 mg PO DAILY 11/10/17 01/30/18 Gentamicin Oint [Garamycin] 1 appl TP BID 11/10/17 01/17/18 Ketoconazole 2% CRM [Nizoral Cream] 1 appl TP DAILY 11/10/17 01/17/18 Ketorolac Tromethamine 1 drop OP QID 11/10/17 01/17/18 Losartan Potassium [Cozaar] 100 mg PO DAILY 11/10/17 01/30/18 Tizanidine HCl 4 mg PO TID 11/20/17 01/30/18 Gabapentin [Neurontin] 300 mg PO HS 01/17/18 01/30/18 Potassium Chloride [K-Tab ER] 20 meq PO QID 01/17/18 01/30/18 Ferrous Sulfate 325 mg PO BID 01/30/18 01/30/18 Loratadine [Allergy Relief] 10 mg PO DAILY 01/30/18 01/30/18 Pantoprazole Sodium [Protonix] 40 mg PO DAILY 01/30/18 01/30/18 Polyethylene Glycol 3350 [MiraLAX] 17 gm PO DAILY 01/30/18 01/30/18 Diltiazem CD (24hr) [Cardizem CD] 120 mg PO DAILY 02/20/18 02/20/18 Previous Rx's Medication Instructions Recorded Fluticasone Propionate Nasal 2 spray NS DAILY #1 bottle 08/28/17 [Flonase] Calcium Carbonate [Tums] 1,000 mg PO Q4HR PRN tab.chew 11/24/17 Carvedilol [Coreg] 6.25 mg PO BIDWM tablet 11/24/17 Lactobacillus Acidophilus 1 each PO BID #10 capsule 11/24/17 [Acidophilus] Nystatin POWDER [Nystop] 1 appl TP BID bottle 01/23/18 Sucralfate [Carafate] 1 gm PO 0730,1630 30 Days #60 02/16/18 tablet Collagenase Oint [Santyl] 1 appl TP DAILY tube 02/26/18 Ferrous Sulfate 325 mg PO BIDWM 30 Days #60 tablet 02/26/18 Insulin DETEMIR [Levemir] 30 unit SQ HS [id number] 02/26/18 Ipratropium/Albuterol Neb [Duoneb] 3 ml IH [id number] PRN inhsol 02/26/18 Pregabalin [Lyrica] 75 mg PO BID 30 Days #60 capsule 02/26/18 Simethicone [Gas-X] 80 mg PO TID PRN tab.chew 02/26/18 clonazePAM [Klonopin] 0.5 mg PO BID PRN 5 Days #10 tablet 02/26/18 Allergies Allergy/AdvReac Type Severity Reaction Status Date / Time lisinopril [From Zestril] Allergy Rash Verified 01/17/18 13:50 All systems ED: reviewed and negative except as stated. Constitutional: Denies: fever Cardiovascular: Denies: chest pain Respiratory: Denies: cough Gastrointestinal: Denies: abdominal pain, nausea, vomiting Past Medical History - Past Medical History Source: patient Medical history: Reports: CHF, diabetes, hyperlipidemia, hypertension, other Surgical history: Reports: hysterectomy, other Psychiatric history: Reports: depression COOKER CASING history: Reports: no COOKER CASING history - Social History Smoking Status: Never smoker Smokeless Tobacco Status: No Alcohol use: Reports: none Drug use: Reports: none Physical Exam - General Limitations: no limitations General appearance: alert, in no apparent distress, other (Appears older than stated age) - Head Head exam: atraumatic, normocephalic, normal inspection - Eye Eye exam: Present: normal appearance, EOMI - ENT ENT exam: normal exam, mucous membranes moist - Neck Neck exam: Present: normal inspection - Chest Chest inspection: Present: normal inspection - Respiratory Respiratory exam: Present: other (Diffusely diminished). Absent: respiratory distress - Cardiovascular Cardiovascular exam: Present: regular rate, normal rhythm. Absent: systolic murmur - Abdominal Exam Abdominal exam: Present: soft, Non-Tender - Extremities Exam Extremities exam: Present: other (Chronic right lower leg wound dressing in place with wound VAC functioning. Neurovascular intact.) - Expanded Lower Extremity Exam Neurovascular/Tendon exam: Present: normal capillary refill. Absent: pulse deficit, sensory deficit - Neurological Exam Neurological exam: Present: alert, oriented X3 - Skin Skin exam: Present: warm, dry, intact, normal color Course Course Narrative: Patient seen and examined. Patient appears asymptomatic. Patient will get baseline screening labs, urinalysis chest x-ray. Disposition pending. Vital Signs Temperature 98.6 F 08/15/18 12:20 Pulse Rate 72 03/07/18 12:20 Respiratory Rate 18 03/07/18 12:20 Blood Pressure 98/51 03/07/18 12:20 O2 Sat by Pulse Oximetry 100 03/07/18 12:20 Temperature 98.6 F 03/07/18 12:20 Pulse Rate 74 03/07/18 14:30 Respiratory Rate 18 03/07/18 14:30 Blood Pressure 105/53 03/07/18 14:30 O2 Sat by Pulse Oximetry 100 03/07/18 14:30 Oxygen Delivery Oxygen Delivery Nasal Cannula Medical Decision Making - MDM Narrative Medical decision making narrative: Patient presents for concerns of low blood pressure. Patient did receive titrated fluid boluses. Patient had basic labs which shows acute on chronic kidney disease likely prerenal etiology. Patient's urine also looked grossly abnormal. Patient had a presumed UTI. Rogers catheter was replaced in the ED. Patient chest x-ray shows no signs of pneumonia. Patient has been denying chest pain with negative troponin. Lactate was normal. Patient's white count does appear to be elevated however does have chronic elevation of the white count. Patient would benefit from gradual fluid hydration as well as monitoring electrolytes and renal function. Patient be admitted. Patient was given first dose of antibiotics in the ED presuming UTI however the right lower extremity wound is also a nidus of infection does not appear to have any crepitus or signs of necrotic infection. - Lab Data Lab results reviewed: Yes I reviewed the patient's lab results. Result diagrams: 03/07/18 13:02 03/07/18 13:02 Lab Results 03/07/18 03/07/18 03/07/18 Range/Units 12:57 13:02 13:02 WBC 15.3 H (4.3-11.1) K/mcL RBC 3.02 L (3.82-4.97) M/mcL Hgb 8.4 L (11.5-15.4) g/dL Hct 27.5 L (35.3-44.9) % MCV 91.1 (83.0-100.0) fL MCH 27.8 L (28.0-33.3) pg MCHC 30.5 L (31.6-35.5) g/dL RDW 15.6 H (11.5-14.5) % Plt Count 278 (140-400) K/mcL MPV 12.8 H (9.4-12.4) fL Immature Gran % 0.5 (0-4) % Seg Neutrophils % 75.7 % Lymphocytes % 17.0 % Monocytes % 3.9 % Eosinophils % 2.5 % Basophils % 0.4 % Neutrophils # 11.6 H (1.6-8.9) K/mcL Lymphocytes # 2.6 (0.6-4.6) K/mcL Monocytes # 0.6 (0.0-1.3) K/mcL Eosinophils # 0.4 (0.0-0.6) K/mcL Basophils # 0.1 (0.0-0.2) K/mcL Sodium 135 L (136-145) mEq/L Potassium 4.4 (3.5-5.1) mEq/L Chloride 101 (98-107) mEq/L Carbon Dioxide 26 (23-29) mEq/L BUN 77 H (6-20) mg/dL Creatinine 2.14 H (0.60-1.20) mg/dL Est GFR ( Amer) 29 L (> 60) Est GFR (Non-Af Amer) 24 L (> 60) BUN/Creatinine Ratio 36 H (6-26) Glucose 127 H (70-105) mg/dL Calculated Osmolality 305 H (280-300) Lactic Acid 0.8 (0.5-2.2) mmol/L Calcium 9.0 (8.6-10.3) mg/dL Total Bilirubin 0.2 L (0.3-1.0) mg/dL Direct Bilirubin 0.1 (0.0-0.2) mg/dL Indirect Bilirubin 0.1 (0.0-1.2) mg/dL AST 9 L (13-39) Units/L ALT 5 L (7-52) Units/L Alkaline Phosphatase 62 (34-104) Units/L Troponin I < 0.03 (< 0.04) ng/mL Serum Total Protein 6.8 (6.4-8.9) g/dL Albumin 2.7 L (3.5-5.7) g/dL Globulin 4.1 H (2.4-3.5) g/dL Albumin/Globulin Ratio 0.7 L (1.1-2.2) Ur Specimen Adequacy Urine Color (Yellow) Urine Clarity (Clear) Urine pH (5.0-8.0) pH Units Ur Specific [place] (1.010-1.025) Urine Protein (Neg-Trace) mg/dL Urine Glucose (UA) (Normal) mg/dL Urine Ketones (Negative) mg/dL Urine Blood (Negative) Urine Nitrite (Negative) Urine Bilirubin (Negative) Urine Urobilinogen (Normal) mg/dL Ur Leukocyte Esterase (Negative) 03/07/18 Range/Units 14:11 WBC (4.3-11.1) K/mcL RBC (3.82-4.97) M/mcL Hgb (11.5-15.4) g/dL Hct (35.3-44.9) % MCV (83.0-100.0) fL MCH (28.0-33.3) pg MCHC (31.6-35.5) g/dL RDW (11.5-14.5) % Plt Count (140-400) K/mcL MPV (9.4-12.4) fL Immature Gran % (0-4) % Seg Neutrophils % % Lymphocytes % % Monocytes % % Eosinophils % % Basophils % % Neutrophils # (1.6-8.9) K/mcL Lymphocytes # (0.6-4.6) K/mcL Monocytes # (0.0-1.3) K/mcL Eosinophils # (0.0-0.6) K/mcL Basophils # (0.0-0.2) K/mcL Sodium (136-145) mEq/L Potassium (3.5-5.1) mEq/L Chloride (98-107) mEq/L Carbon Dioxide (23-29) mEq/L BUN (6-20) mg/dL Creatinine (0.60-1.20) mg/dL Est GFR ( Amer) (> 60) Est GFR (Non-Af Amer) (> 60) BUN/Creatinine Ratio (6-26) Glucose (70-105) mg/dL Calculated Osmolality (280-300) Lactic Acid (0.5-2.2) mmol/L Calcium (8.6-10.3) mg/dL Total Bilirubin (0.3-1.0) mg/dL Direct Bilirubin (0.0-0.2) mg/dL Indirect Bilirubin (0.0-1.2) mg/dL AST (13-39) Units/L ALT (7-52) Units/L Alkaline Phosphatase (34-104) Units/L Troponin I (< 0.04) ng/mL Serum Total Protein (6.4-8.9) g/dL Albumin (3.5-5.7) g/dL Globulin (2.4-3.5) g/dL Albumin/Globulin Ratio (1.1-2.2) Ur Specimen Adequacy See below A Urine Color Yellow (Yellow) Urine Clarity Turbid A (Clear) Urine pH 5.0 (5.0-8.0) pH Units Ur Specific [place] 1.024 (1.010-1.025) Urine Protein 100 H (Neg-Trace) mg/dL Urine Glucose (UA) Normal (Normal) mg/dL Urine Ketones Negative (Negative) mg/dL Urine Blood Moderate H (Negative) Urine Nitrite Negative (Negative) Urine Bilirubin Negative (Negative) Urine Urobilinogen Normal (Normal) mg/dL Ur Leukocyte Esterase Large H (Negative) - Radiology Data Radiology results reviewed: Yes I reviewed the patient's radiology results. Chest X-Ray 03/07/18 12:26 IMPRESSION: Unchanged moderate pleural effusions. D/ / 03/07/2018 12:49:07 Kory Harrington MD / sheyla Interpreting Provider: Kory Harrington MD - EKG Data EKG #1 EKG attestation: Yes I reviewed and interpreted this EKG. EKG shows normal: sinus rhythm Rate: normal Rhythm: NSR [place]/QRS: normal Interpretation: no acute changes, nonspecific ST-T wave changes S.B.A.RRochelle - S.B.A.Pallavi Situation: Demographics Background: Presenting Complaint Assessment: Vital Signs, Course and respsone to treatment, Patient/Family Expectation Recommendation: Barrier(s) to disposition, Recommendation based on pending studies, treatments, or consults S.B.A.RRochelle Report Given to: Dr. Cecil CoonB.ANilda Repor Time: 14:50
[2018-03-07] MEDS ORDERED: 0.9 % Sodium Chloride 500 ML IVC ONE ×2 (12:32→14:23)
[2018-03-07 13:13] LABS: Basophils # 0.1 K/mcL (0.0-0.2); Basophils % 0.4 %; Eosinophils # 0.4 K/mcL (0.0-0.6); Eosinophils % 2.5 %; Hematocrit 27.5 % (35.3-44.9); Hemoglobin 8.4 g/dL (11.5-15.4); Immature Granulocytes % 0.5 % (0-4); Lymphocytes # 2.6 K/mcL (0.6-4.6); Mean Corpuscular HGB Conc 30.5 g/dL (31.6-35.5); Mean Corpuscular Hemoglobin 27.8 pg (28.0-33.3); Mean Corpuscular Volume 91.1 fL (83.0-100.0); Mean Platelet Volume 12.8 fL (9.4-12.4); Monocytes # 0.6 K/mcL (0.0-1.3); Monocytes % 3.9 %; Neutrophils # 11.6 K/mcL (1.6-8.9); Platelet Count 278 K/mcL (140-400); Red Blood Count 3.02 M/mcL (3.82-4.97); Red Cell Distribution Width 15.6 % (11.5-14.5); Segmented Neutrophils % 75.7 %
[2018-03-07 13:34] LABS: Alanine Aminotransferase 5 Units/L (7-52); Albumin 2.7 g/dL (3.5-5.7); Albumin/Globulin Ratio 0.7 (1.1-2.2); Alkaline Phosphatase 62 Units/L (34-104); Aspartate Amino Transferase 9 Units/L (13-39); BUN/Creatinine Ratio 36 (6-26); Bilirubin,Direct 0.1 mg/dL (0.0-0.2); Bilirubin,Indirect 0.1 mg/dL (0.0-1.2); Bilirubin,Total 0.2 mg/dL (0.3-1.0); Blood Urea Nitrogen 77 mg/dL (6-20); Carbon Dioxide 26 mEq/L (23-29); Chloride 101 mEq/L (98-107); Globulin 4.1 g/dL (2.4-3.5); Glucose 127 mg/dL (70-105); Osmolality,Calculated 305 (280-300); Potassium 4.4 mEq/L (3.5-5.1); Sodium 135 mEq/L (136-145); Total Protein 6.8 g/dL (6.4-8.9); Troponin I < 0.03 ng/mL (< 0.04); eGFR For Non-African Americans 24 (> 60)
--- NOTE | 2018-03-07 14:14 | Emergency Department Note ---
Disposition Clinical Impression: DOROTHEA (acute kidney injury) Disposition: Admitted As Inpatient Referrals: Jc Tsai MD [Primary Care Provider] - Forms: ED Satisfaction Letter, Work/School Release Time of Disposition: 14:17 General Adult HPI - General Chief complaint: ED General Medical Stated complaint: Low Bp Time Seen by Provider: 03/07/18 12:17 Source: patient, EMS Mode of arrival: EMS Limitations: no limitations - History of Present Illness Pain Scale: 0 - Related Data Home Medications Medication Instructions Recorded Confirmed Atorvastatin [Lipitor] 40 mg PO HS 01/11/16 01/30/18 Insulin ASPART [Novolog Flexpen] 6 - 14 unit SQ TID 01/11/16 01/30/18 Latanoprost [Xalatan] 1 drop BOTH EYES HS 01/11/16 01/30/18 Primidone [Mysoline] 25 - 50 mg PO BID PRN 01/11/16 01/30/18 Ascorbic Acid [Vitamin C] 500 mg PO BID 03/25/16 01/17/18 Docusate Sodium [Colace] 200 mg PO BID 03/25/16 01/30/18 Furosemide [Lasix] 40 mg PO BID 12/06/16 01/30/18 Brimonidine Tartrate/Timolol 1 drop OP BID 11/10/17 01/30/18 [Combigan 0.2%-0.5% Eye Drops] Esomeprazole Magnesium [Nexium] 40 mg PO DAILY 11/10/17 01/30/18 Gentamicin Oint [Garamycin] 1 appl TP BID 11/10/17 01/17/18 Ketoconazole 2% CRM [Nizoral Cream] 1 appl TP DAILY 11/10/17 01/17/18 Ketorolac Tromethamine 1 drop OP QID 11/10/17 01/17/18 Losartan Potassium [Cozaar] 100 mg PO DAILY 11/10/17 01/30/18 Tizanidine HCl 4 mg PO TID 11/20/17 01/30/18 Gabapentin [Neurontin] 300 mg PO HS 01/17/18 01/30/18 Potassium Chloride [K-Tab ER] 20 meq PO QID 01/17/18 01/30/18 Ferrous Sulfate 325 mg PO BID 01/30/18 01/30/18 Loratadine [Allergy Relief] 10 mg PO DAILY 01/30/18 01/30/18 Pantoprazole Sodium [Protonix] 40 mg PO DAILY 01/30/18 01/30/18 Polyethylene Glycol 3350 [MiraLAX] 17 gm PO DAILY 01/30/18 01/30/18 Diltiazem CD (24hr) [Cardizem CD] 120 mg PO DAILY 02/20/18 02/20/18 Previous Rx's Medication Instructions Recorded Fluticasone Propionate Nasal 2 spray NS DAILY #1 bottle 08/28/17 [Flonase] Calcium Carbonate [Tums] 1,000 mg PO Q4HR PRN tab.chew 11/24/17 Carvedilol [Coreg] 6.25 mg PO BIDWM tablet 11/24/17 Lactobacillus Acidophilus 1 each PO BID #10 capsule 11/24/17 [Acidophilus] Nystatin POWDER [Nystop] 1 appl TP BID bottle 01/23/18 Sucralfate [Carafate] 1 gm PO 0730,1630 30 Days #60 02/16/18 tablet Collagenase Oint [Santyl] 1 appl TP DAILY tube 02/26/18 Ferrous Sulfate 325 mg PO BIDWM 30 Days #60 tablet 02/26/18 Insulin DETEMIR [Levemir] 30 unit SQ HS [id number] 02/26/18 Ipratropium/Albuterol Neb [Duoneb] 3 ml IH [id number] PRN inhsol 02/26/18 Pregabalin [Lyrica] 75 mg PO BID 30 Days #60 capsule 02/26/18 Simethicone [Gas-X] 80 mg PO TID PRN tab.chew 02/26/18 clonazePAM [Klonopin] 0.5 mg PO BID PRN 5 Days #10 tablet 02/26/18 Allergies Allergy/AdvReac Type Severity Reaction Status Date / Time lisinopril [From Zestril] Allergy Rash Verified 01/17/18 13:50 Constitutional: Denies: fever Cardiovascular: Denies: chest pain Respiratory: Denies: cough Gastrointestinal: Denies: abdominal pain, nausea, vomiting Past Medical History - Past Medical History Medical history: Reports: CHF, diabetes, hyperlipidemia, hypertension, other Surgical history: Reports: hysterectomy, other Psychiatric history: Reports: depression 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 - Social History Smoking Status: Never smoker Smokeless Tobacco Status: No Alcohol use: Reports: none Drug use: Reports: none Physical Exam - General Limitations: no limitations General appearance: alert, in no apparent distress, other (Appears older than stated age) Course Vital Signs Temperature 98.6 F 03/07/18 12:20 Pulse Rate 72 03/07/18 12:20 Respiratory Rate 18 03/07/18 12:20 Blood Pressure 98/51 03/07/18 12:20 O2 Sat by Pulse Oximetry 100 03/07/18 12:20 Temperature 98.6 F 03/07/18 12:20 Pulse Rate 71 03/07/18 13:28 Respiratory Rate 18 03/07/18 13:28 Blood Pressure 109/57 03/07/18 14:04 O2 Sat by Pulse Oximetry 100 03/07/18 13:28 Oxygen Delivery Oxygen Delivery Nasal Cannula Medical Decision Making - Lab Data Result diagrams: 03/07/18 13:02 03/07/18 13:02 Lab Results 03/07/18 03/07/18 03/07/18 Range/Units 12:57 13:02 13:02 WBC 15.3 H (4.3-11.1) K/mcL RBC 3.02 L (3.82-4.97) M/mcL Hgb 8.4 L (11.5-15.4) g/dL Hct 27.5 L (35.3-44.9) % MCV 91.1 (83.0-100.0) fL MCH 27.8 L (28.0-33.3) pg MCHC 30.5 L (31.6-35.5) g/dL RDW 15.6 H (11.5-14.5) % Plt Count 278 (140-400) K/mcL MPV 12.8 H (9.4-12.4) fL Immature Gran % 0.5 (0-4) % Seg Neutrophils % 75.7 % Lymphocytes % 17.0 % Monocytes % 3.9 % Eosinophils % 2.5 % Basophils % 0.4 % Neutrophils # 11.6 H (1.6-8.9) K/mcL Lymphocytes # 2.6 (0.6-4.6) K/mcL Monocytes # 0.6 (0.0-1.3) K/mcL Eosinophils # 0.4 (0.0-0.6) K/mcL Basophils # 0.1 (0.0-0.2) K/mcL Sodium 135 L (136-145) mEq/L Potassium 4.4 (3.5-5.1) mEq/L Chloride 101 (98-107) mEq/L Carbon Dioxide 26 (23-29) mEq/L BUN 77 H (6-20) mg/dL Creatinine 2.14 H (0.60-1.20) mg/dL Est GFR ( Amer) 29 L (> 60) Est GFR (Non-Af Amer) 24 L (> 60) BUN/Creatinine Ratio 36 H (6-26) Glucose 127 H (70-105) mg/dL Calculated Osmolality 305 H (280-300) Lactic Acid 0.8 (0.5-2.2) mmol/L Calcium 9.0 (8.6-10.3) mg/dL Total Bilirubin 0.2 L (0.3-1.0) mg/dL Direct Bilirubin 0.1 (0.0-0.2) mg/dL Indirect Bilirubin 0.1 (0.0-1.2) mg/dL AST 9 L (13-39) Units/L ALT 5 L (7-52) Units/L Alkaline Phosphatase 62 (34-104) Units/L Troponin I < 0.03 (< 0.04) ng/mL Serum Total Protein 6.8 (6.4-8.9) g/dL Albumin 2.7 L (3.5-5.7) g/dL Globulin 4.1 H (2.4-3.5) g/dL Albumin/Globulin Ratio 0.7 L (1.1-2.2) Attestation Statement - Attestation Attestation: I examined this patient and my medical decision-making was reviewed with the Resident Physician. I agree with the documented findings, disposition and treatment plan as described except to the extent set forth below. 58 year old female prsentse to the ED with complaints of low bp per her [facility] and is currenlty being treated for a right oot wound and states that she does not typically have low bp, in addition to she is otherwise asymptomatic. Patinet does appear to DOROTHEA on labs and she has an indwelling cathether that does not seem to ave been changed in sometime. We will exhange the ruiz and test the urine and then admit to medicine. Denies abdominal pain
[2018-03-07 14:21] LABS: Bilirubin,Urine Negative (Negative); Blood,Urine Moderate (Negative); Clarity,Urine Turbid (Clear); Color,Urine Yellow (Yellow); Glucose,Urine (UA) Normal (Normal); Ketones,Urine Negative (Negative); Leukocyte Esterase,Urine Large (Negative); Nitrite,Urine Negative (Negative); Protein,Urine 100 mg/dL (Neg-Trace); Specific Gravity,Urine 1.024 (1.010-1.025); Urobilinogen,Urine Normal (Normal)
[2018-03-07 14:23] LABS: Bacteria,Urine None Seen per hpf (None-Few); RBC,Urine 15-30 per hpf (0-3); Squamous Epithelial Cell,Urine Many per lpf (None-Few); WBC,Urine TNTC per hpf (0-3)
[2018-03-07] MEDS ORDERED: cefTRIAXone 1,000 MG in Water for inj. (sterile) 20 ML 10 ML IVP ONE (14:23)
[2018-03-07 14:55] LABS: Yeast,Urine Few per hpf (None Seen)
[2018-03-07 14:58] LABS: Hyaline Casts,Urine None Seen per lpf (None-Few); Renal Epithelial Cells,Urine Few per hpf (None-Few)
[2018-03-07] MEDS ORDERED: Naloxone 0.4 MG/ML INJ IVP PRN (15:05)
--- NOTE | 2018-03-07 16:51 | Internal Med History&Physical ---
<Meliza Jean Baptiste M - Last Filed: 03/07/18 17:50> Date of Encounter: 03/07/18 Time of Encounter: 16:51 Internal Medicine - H&P: HPI Chief complaint: low blood pressure Admitted From: Emergency Dept History of present illness: Ms. Magallanes is a 58 year old female with hx of CHF, CM, HTN, chronic right heel wound, who presents with hypotension. Patient was at wound clinic today and found to be hypotensive with systolic BP of 94. Patient denied any symptoms but presented to the ED for further evaluation. At bedside, patient has no complaints. She has been staying at [facility] and does not think she missed any meds. Patient usually drinks 1 glass of water/day and [address] Cuellar. She uses CPAP at night and does not usually require oxygen during the day, although she is using oxygen currently. Patient denies any increased leg swelling or shortness of breath. Denies dizziness, lightheadedness , headache, dry mouth, increased thirst, chest pain, cough, abdominal pain, N/V , diarrhea, dysuria, hematuria, or leg pain. She was recently admitted 01/30-02/26 for pneumonia. During that hospital stay she developed a GI bleed requiring blood transfusion. She also had wound vac placed for her chronic right heel wound. Past Med Surg Social Fam HX - Past Medical History Attestation: Yes The following information was validated with the patient. Medical history: CHF, diabetes, hyperlipidemia, hypertension, other Additional medical history: DM Neuropathy. Type II Diabetic Psychiatric history: depression - Past Surgical History Surgical History: hysterectomy, other Additional surgical history: neck surgery - Social History Smoking Status: Never smoker Smokeless Tobacco Status: No Alcohol use: none Drug use: none - Family History Mother Adopted: No Family Member Ethnicity: Non- Living Status: Hx Family Endocrine Disorder: Yes (diabetes type 2) Father Adopted: No Family Member Ethnicity: Non- Living Status: Hx Family Cardiac Disorders: Yes (hypertension) Hx Family Respiratory Disorders: No Hx Family Cancer: No Hx Family GI Disorders: No Hx Family Endocrine Disorder: Yes (kidney disease) Internal Medicine - H&P: Meds Atorvastatin [Lipitor] 40 mg PO HS 01/11/16 [History] Insulin ASPART [Novolog Flexpen] 6 - 14 unit SQ TID 01/11/16 [History] Latanoprost [Xalatan] 1 drop BOTH EYES HS 01/11/16 [History] Primidone [Mysoline] 25 - 50 mg PO BID PRN 01/11/16 [History] Ascorbic Acid [Vitamin C] 500 mg PO BID 03/25/16 [History] Docusate Sodium [Colace] 200 mg PO BID 03/25/16 [History] Furosemide [Lasix] 40 mg PO BID 12/06/16 [History] Fluticasone Propionate Nasal [Flonase] 2 spray NS DAILY #1 bottle 08/28/17 [Rx] Ketoconazole 2% CRM [Nizoral Cream] 1 appl TP DAILY 11/10/17 [History] Ketorolac Tromethamine 1 drop OP QID 11/10/17 [History] Losartan Potassium [Cozaar] 100 mg PO DAILY 11/10/17 [History] Tizanidine HCl 4 mg PO TID 11/20/17 [History] Calcium Carbonate [Tums] 1,000 mg PO Q4HR PRN tab.chew 11/24/17 [Rx] Carvedilol [Coreg] 6.25 mg PO BIDWM tablet 11/24/17 [Rx] Lactobacillus Acidophilus [Acidophilus] 1 each PO BID #10 capsule 11/24/17 [Rx] Gabapentin [Neurontin] 300 mg PO HS 01/17/18 [History] Ferrous Sulfate 325 mg PO BID 01/30/18 [History] Loratadine [Allergy Relief] 10 mg PO DAILY 01/30/18 [History] Pantoprazole Sodium [Protonix] 40 mg PO DAILY 01/30/18 [History] Polyethylene Glycol 3350 [MiraLAX] 17 gm PO DAILY 01/30/18 [History] Sucralfate [Carafate] 1 gm PO 0730,1630 30 Days #60 tablet 02/16/18 [Rx] Diltiazem CD (24hr) [Cardizem CD] 120 mg PO DAILY 02/20/18 [History] Insulin DETEMIR [Levemir] 30 unit SQ HS [id number] 02/26/18 [Rx] Ipratropium/Albuterol Neb [Duoneb] 3 ml IH [id number] PRN inhsol 02/26/18 [Rx] Pregabalin [Lyrica] 75 mg PO BID 30 Days #60 capsule 02/26/18 [Rx] Simethicone [Gas-X] 80 mg PO TID PRN tab.chew 02/26/18 [Rx] clonazePAM [Klonopin] 0.5 mg PO BID PRN 5 Days #10 tablet 02/26/18 [Rx] Brimonidine Tartrate/Timolol [Combigan Eye Drops] 1 drop BOTH EYES BID 03/07/18 [History] 3 Allergy/AdvReac Type Severity Reaction Status Date / Time lisinopril [From Zestril] Allergy Rash Verified 01/17/18 13:50 All Systems PM: A 10-system review of systems was performed and is negative for pertinent findings except as documented above in the HPI. - Constitutional Constitutional: as per HPI, weakness, no fever(s), no falls - EENT Eyes: no loss of vision - Cardiovascular Cardiovascular ROS IM: no chest pain, no diaphoresis, no dyspnea, no dyspnea on exertion, no lightheadedness, no palpitations, no syncope - Respiratory Respiratory: snoring, no cough, no wheezing - Gastrointestinal Gastrointestinal: no abdominal pain, no constipation, no diarrhea, no loose stools, no melena, no nausea, no vomiting - Genitourinary Genitourinary: no dysuria, no hematuria - Musculoskeletal Musculoskeletal ROS IM: no joint swelling, no numbness, no tingling - Neurological Neurological ROS: no abnormal hearing, no dizziness - Constitutional Vitals: Temp Pulse Resp BP Pulse Ox 98.2 F 74 17 113/51 96 03/07/18 15:37 03/07/18 15:37 03/07/18 15:37 03/07/18 15:37 03/07/18 15:37 Exam: Gen: Obese, lying in bed, awake, alert, appears comfortable HEENT: NC/AT. Moist mucous membranes. Nasal cannula in place, on 2L Neck: No JVD CV: S1 S2, RRR, no murmurs, gallops, or rub Resp: Crackles in bases bilaterally, no wheezing, no rhonchi Abd: Soft, nontender, no masses, bowel sounds present Extrem: lower extremities with trace edema bilaterally. Radial and PT pulses 2+ bilaterally. Skin: R heel wound bandaged with wound vac draining serosanguinous fluid. Shallow red ulcer on great toe bilaterally. Venous stasis changes on anterior shins bilaterally. Neuro: moving all extremities, decreased sensation in BLE Psych: normal affect Internal Med - H&P Results - Labs CBC & Chem 7: 03/07/18 13:02 03/07/18 13:02 - Assessment and plan (1) UTI (urinary tract infection) Current Visit: Yes Status: Resolved Assessment and plan: Asymptomatic. Has ruiz in place. D1/4 SIRS criteria, but is hypotensive with leukocytosis. Urinalysis positive for leukocyte esterase, WBCs, blood. Received Rocephin in ED. - Repeat UA, UC - Continue rocephin - Monitor WBC with CBC in am Qualifiers: Urinary tract infection type: site unspecified Hematuria presence: without hematuria Qualified Code(s): N39.0 - Urinary tract infection, site not specified (2) Acute kidney injury Current Visit: Yes Status: Resolved Assessment and plan: Labs suggest prerenal etiology, likely due to hypotension. Baseline creatinine 0.9, now 2.4. - gentle IV fluids at 75ml/hour given CHF history and questionable bilateral pleural effusions - Monitor BUN, Cr, urine output (4) Diabetes mellitus Current Visit: Yes Status: Chronic Assessment and plan: On Novolog and Levemir as outpatient. 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 (5) HTN (hypertension) Current Visit: No Status: Chronic Assessment and plan: - Holding Lasix, Losartan, and Diltiazem as the patient has been hypotensive - Will continue to monitor vitals Qualifiers: Hypertension type: essential hypertension Qualified Code(s): I10 - Essential (primary) hypertension (6) HLD (hyperlipidemia) Current Visit: Yes Status: Chronic Assessment and plan: - resume home lipitor 40mg Qualifiers: Hyperlipidemia type: other hyperlipidemia Qualified Code(s): E78.4 - Other hyperlipidemia (8) Morbid obesity Current Visit: Yes Status: Chronic Assessment and plan: - BMI 52.6, will give diabetic diet and encourage lifestyle changes (9) DVT prophylaxis Current Visit: Yes Status: Acute - Time Spent With Patient Total time spent is greater than 50% in coordination of care (as documented) at patient's floor/unit and/or counseling patient: <Sg Zelaya - Last Filed: 03/08/18 20:53> Date of Encounter: 03/08/18 Internal Medicine - H&P: HPI History of present illness: Ms. Magallanes is a 58 year old female All Systems PM: A 10-system review of systems was performed and is negative for pertinent findings except as documented above in the HPI. - Constitutional Vitals: Temp Pulse Resp BP Pulse Ox 98.2 F 79 16 151/66 94 03/08/18 15:52 03/08/18 15:52 03/08/18 15:52 03/08/18 15:52 03/08/18 15:52 Internal Med - H&P Results - Labs CBC & Chem 7: 03/08/18 16:10 03/08/18 05:34 Labs: Short CBC 03/08/18 03/08/18 03/08/18 Range/Units 05:34 11:12 16:10 WBC 12.4 H (4.3-11.1) K/mcL Hgb 7.3 L 7.8 L 8.5 L (11.5-15.4) g/dL Hct 23.3 L 24.9 L 26.9 L (35.3-44.9) % Plt Count 263 (140-400) K/mcL Neutrophils # 8.4 (1.6-8.9) K/mcL BMP 03/08/18 05:34 Sodium 137 Potassium 4.2 Chloride 104 Carbon Dioxide 25 BUN 76 H Creatinine 2.07 H Glucose 122 H Calcium 8.7 Liver Function 03/08/18 Range/Units 05:34 Total Bilirubin 0.2 L (0.3-1.0) mg/dL AST 10 L (13-39) Units/L ALT 5 L (7-52) Units/L Alkaline Phosphatase 59 (34-104) Units/L Albumin 2.6 L (3.5-5.7) g/dL Urine 03/07/18 Range/Units 21:30 Urine Color Yellow (Yellow) Urine Clarity Turbid A (Clear) Urine pH 5.5 (5.0-8.0) pH Units Ur Specific [place] 1.016 (1.010-1.025) Urine Protein 100 H (Neg-Trace) mg/dL Urine Glucose (UA) Normal (Normal) mg/dL - Attending Attestation I examined this patient and my medical decision-making was reviewed with the Resident Physician Dr. Shetty. I agree with the documented findings, disposition and treatment plan as described except to the extent set forth below. - Time Spent With Patient Total time spent is greater than 50% in coordination of care (as documented) at patient's floor/unit and/or counseling patient:
[2018-03-07] MEDS ORDERED: Ipratropium/Albuterol Neb 3 ML IH PRN (17:21)
[2018-03-07] MEDS ORDERED: clonazePAM 0.5 MG TABLET PO PRN (17:21)
[2018-03-07] MEDS ORDERED: Simethicone 80 MG TAB.CHEW PO PRN (17:21)
[2018-03-07] MEDS ORDERED: Primidone 50 MG TABLET PO PRN (17:21)
[2018-03-07] MEDS ORDERED: *HR* Dextrose 50 % in Water (Syg) 50 ML SYRINGE IVP PRN (18:04)
[2018-03-07] MEDS ORDERED: D5% in Water 1,000 ML IVC PRN (18:04)
[2018-03-07] MEDS ORDERED: Dextrose Gel 15 GM/37.5 ML TUBE PO PRN ×2 (18:04)
--- NOTE | 2018-03-07 20:23 | Electrocardiograph Report ---
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
[2018-03-07] MEDS ORDERED: tiZANidine 4 MG TABLET PO SCH (21:00)
[2018-03-07] MEDS ORDERED: Ketorolac OPTH Soln 5 ML BOTTLE BOTH EYES SCH (21:00)
[2018-03-07] MEDS: *HR* Heparin 5,000 UNIT/ML VIAL SQ SCH (21:02)
[2018-03-07] MEDS: Ascorbic Acid 500 MG TABLET PO SCH (21:03)
[2018-03-07] MEDS: Pregabalin 75 MG CAPSULE PO SCH (21:03)
[2018-03-07] MEDS: Gabapentin 300 MG CAPSULE PO SCH (21:03)
[2018-03-07] MEDS: Insulin DETEMIR 100 UNIT/ML X5UNITS SQ SCH (21:03)
[2018-03-07] MEDS: Lactobacillus 1 EACH CAP.SPRINK PO SCH (21:03)
[2018-03-07] MEDS: Latanoprost 2.5 ML BOTTLE BOTH EYES SCH (21:05)
[2018-03-07 21:47] LABS: Bilirubin,Urine Negative (Negative); Blood,Urine Moderate (Negative); Clarity,Urine Turbid (Clear); Color,Urine Yellow (Yellow); Glucose,Urine (UA) Normal (Normal); Ketones,Urine Negative (Negative); Leukocyte Esterase,Urine Large (Negative); Nitrite,Urine Negative (Negative); PH,Urine 5.5 pH Units (5.0-8.0); Protein,Urine 100 mg/dL (Neg-Trace); Specific Gravity,Urine 1.016 (1.010-1.025); Urobilinogen,Urine Normal (Normal)
[2018-03-07 21:51] LABS: Hyaline Casts,Urine None Seen per lpf (None-Few); Squamous Epithelial Cell,Urine Many per lpf (None-Few); WBC,Urine TNTC per hpf (0-3)
[2018-03-07 22:06] LABS: Transitional Epi Cells,Urine Few per hpf (None-Few)
[2018-03-07 22:07] LABS: Bacteria,Urine Moderate per hpf (None-Few); RBC,Urine 15-30 per hpf (0-3); Yeast,Urine Few per hpf (None Seen)
[2018-03-08] MEDS: *HR* Heparin 5,000 UNIT/ML VIAL SQ SCH ×3 (05:19→20:57)
[2018-03-08 05:50] LABS: Basophils % 0.3 %; Eosinophils # 0.5 K/mcL (0.0-0.6); Eosinophils % 3.9 %; Hematocrit 23.3 % (35.3-44.9); Hemoglobin 7.3 g/dL (11.5-15.4); Immature Granulocytes % 0.6 % (0-4); Lymphocytes % 24.1 %; Mean Corpuscular HGB Conc 31.3 g/dL (31.6-35.5); Mean Corpuscular Hemoglobin 28.5 pg (28.0-33.3); Mean Platelet Volume 12.7 fL (9.4-12.4); Monocytes # 0.4 K/mcL (0.0-1.3); Monocytes % 3.3 %; Neutrophils # 8.4 K/mcL (1.6-8.9); Platelet Count 263 K/mcL (140-400); Red Blood Count 2.56 M/mcL (3.82-4.97); Red Cell Distribution Width 15.3 % (11.5-14.5); Segmented Neutrophils % 67.8 %
[2018-03-08 06:07] LABS: Albumin 2.6 g/dL (3.5-5.7); Albumin/Globulin Ratio 0.7 (1.1-2.2); Bilirubin,Total 0.2 mg/dL (0.3-1.0); Calcium 8.7 mg/dL (8.6-10.3); Potassium 4.2 mEq/L (3.5-5.1); Total Protein 6.6 g/dL (6.4-8.9)
--- NOTE | 2018-03-08 09:13 | Internal Med Progress Note ---
<Meliza Jean Baptiste - Last Filed: 03/08/18 14:07> Hospitalist Progress Note - Encounter Date of Encounter: 03/08/18 Time of Encounter: 09:09 - Subjective Interval History: 58 F with hx of CHF, CM, HTN, chronic right heel wound, admitted 03/07 with hypotention (SBP 94) and DOROTHEA. UA consistent with UTI. CXR showed moderate bilateral pleural effusions, unchanged from previous. She was started on IVF and given Rocephin. She was recently admitted 01/30-02/26 for pneumonia. During that hospital stay she developed a GI bleed requiring blood transfusion. She also had wound vac placed for her chronic right heel wound. Patient is sleepy today but otherwise has no complaints. Feels the same as yesterday. Denies any pain, SOB, nausea, abdominal pain. - Exam Vitals: Temp Pulse Resp BP Pulse Ox 98.4 F 85 16 108/65 95 03/08/18 07:05 03/08/18 07:05 03/08/18 07:05 03/08/18 07:05 03/08/18 07:05 Exam: Gen: Obese, sitting upright in bed eating breakfast. Answers questions appropriately. In no acute distress. HEENT: NC/AT. Moist mucous membranes. Nasal cannula in place, on 2L Neck: No JVD CV: S1 S2, RRR, no murmurs, gallops, or rub Resp: Crackles in bases bilaterally, no wheezing, no rhonchi Abd: Soft, nontender, no masses, bowel sounds present, has ruiz Extrem: lower extremities with trace edema bilaterally. Radial and PT pulses 2+ bilaterally. Skin: R heel wound bandaged with wound vac draining serosanguinous fluid. Shallow red ulcer on great toe bilaterally. Venous stasis changes on anterior shins bilaterally. Neuro: moving all extremities, decreased sensation in BLE Psych: normal affect - Assessment and Plan (1) UTI (urinary tract infection) Current Visit: Yes Status: Acute Assessment and Plan: - Asymptomatic. Has ruiz in place. - Repeat Urinalysis positive for leukocyte esterase, WBCs, bacteria, blood. - Urine culture ordered - Received Rocephin in ED. - Continue rocephin - Monitor WBC (2) Acute kidney injury Current Visit: Yes Status: Resolved Assessment and Plan: - Improving, Cr now 2.07 - down from 2.14 - Likely prerenal from dehydration/hypotension given BUN/Cr >20 - IVF have been discontinued as patient has been eating and drinking well - Continuing to avoid nephrotoxic medications (3) Anemia Current Visit: Yes Status: Acute Assessment and Plan: - Hemoglobin 7.3 today, down from 8.3 yesterday - Likely dilutional but given need for transfusion during last admission will check H&H q 6 hours (4) Diabetes mellitus Current Visit: Yes Status: Chronic Assessment and Plan: - Continues on basal and sliding scale insulin -Continuing to monitor, blood glucose 122 this morning - Wound vac in place, follows with wound clinic. Is not on antibiotics as outpatient. - Wound care consult - Continue wound vac and daily dressing changes (5) HTN (hypertension) Current Visit: No Status: Chronic Assessment and Plan: - Holding cardisem 120mg, lasix 40mg BID, and losartan 100mg due to hypotension seen on admission, normotensive today - Continuing carvedilol 6.25mg (6) HLD (hyperlipidemia) Current Visit: Yes Status: Chronic Assessment and Plan: - Continues on home lipitor 40mg daily (7) Diastolic heart failure Current Visit: No Status: Chronic Assessment and Plan: - Last echo done 01/31 showed normal EF 65%, mild LV diastolic dysfunction. - Continuing to monitor for evidence of heart failure (8) Morbid obesity Current Visit: Yes Status: Chronic Assessment and Plan: - BMI 52.1 - On diabetic/cardiac diet (9) DVT prophylaxis Current Visit: Yes Status: Acute Assessment and Plan: - Continues on heparin 5000mg q 8 - Time Spent with Patient Total time spent is greater than 50% in coordination of care (as documented) at patient's floor/unit and/or counseling patient: Internal Medicine: Result - Labs CBC & Chem 7: 03/08/18 11:12 03/08/18 05:34 Labs: Short CBC 03/08/18 Range/Units 05:34 WBC 12.4 H (4.3-11.1) K/mcL Hgb 7.3 L (11.5-15.4) g/dL Hct 23.3 L (35.3-44.9) % Plt Count 263 (140-400) K/mcL Neutrophils # 8.4 (1.6-8.9) K/mcL BMP 03/08/18 05:34 Sodium 137 Potassium 4.2 Chloride 104 Carbon Dioxide 25 BUN 76 H Creatinine 2.07 H Glucose 122 H Calcium 8.7 Liver Function 03/08/18 Range/Units 05:34 Total Bilirubin 0.2 L (0.3-1.0) mg/dL AST 10 L (13-39) Units/L ALT 5 L (7-52) Units/L Alkaline Phosphatase 59 (34-104) Units/L Albumin 2.6 L (3.5-5.7) g/dL Urine 03/07/18 Range/Units 21:30 Urine Color Yellow (Yellow) Urine Clarity Turbid A (Clear) Urine pH 5.5 (5.0-8.0) pH Units Ur Specific Hammon 1.016 (1.010-1.025) Urine Protein 100 H (Neg-Trace) mg/dL Urine Glucose (UA) Normal (Normal) mg/dL Consult Discharge Plan - Plan Referrals: Jc Tsai MD [Primary Care Provider] - <Sg Zelaya - Last Filed: 03/08/18 20:56> Hospitalist Progress Note - Encounter Date of Encounter: 03/08/18 - Exam Vitals: Temp Pulse Resp BP Pulse Ox 98.2 F 79 16 151/66 94 03/08/18 15:52 03/08/18 15:52 03/08/18 15:52 03/08/18 15:52 03/08/18 15:52 - Time Spent with Patient Total time spent is greater than 50% in coordination of care (as documented) at patient's floor/unit and/or counseling patient: Internal Medicine: Result - Labs CBC & Chem 7: 03/08/18 16:10 03/08/18 05:34 Labs: Short CBC 03/08/18 03/08/18 03/08/18 Range/Units 05:34 11:12 16:10 WBC 12.4 H (4.3-11.1) K/mcL Hgb 7.3 L 7.8 L 8.5 L (11.5-15.4) g/dL Hct 23.3 L 24.9 L 26.9 L (35.3-44.9) % Plt Count 263 (140-400) K/mcL Neutrophils # 8.4 (1.6-8.9) K/mcL BMP 03/08/18 05:34 Sodium 137 Potassium 4.2 Chloride 104 Carbon Dioxide 25 BUN 76 H Creatinine 2.07 H Glucose 122 H Calcium 8.7 Liver Function 03/08/18 Range/Units 05:34 Total Bilirubin 0.2 L (0.3-1.0) mg/dL AST 10 L (13-39) Units/L ALT 5 L (7-52) Units/L Alkaline Phosphatase 59 (34-104) Units/L Albumin 2.6 L (3.5-5.7) g/dL Urine 03/07/18 Range/Units 21:30 Urine Color Yellow (Yellow) Urine Clarity Turbid A (Clear) Urine pH 5.5 (5.0-8.0) pH Units Ur Specific Hammon 1.016 (1.010-1.025) Urine Protein 100 H (Neg-Trace) mg/dL Urine Glucose (UA) Normal (Normal) mg/dL - Attending Attestation I examined this patient and my medical decision-making was reviewed with the Resident Physician Dr. Shetty. I agree with the documented findings, disposition and treatment plan as described except to the extent set forth below. <Meliza Jean Baptiste - Last Filed: 03/08/18 14:07> (1) UTI (urinary tract infection) Qualifiers: Urinary tract infection type: site unspecified Hematuria presence: without hematuria Qualified Code(s): N39.0 - Urinary tract infection, site not specified (3) Anemia Qualifiers: Anemia type: unspecified type Qualified Code(s): D64.9 - Anemia, unspecified (4) Diabetes mellitus Qualifiers: Diabetes mellitus type: type 2 Diabetes mellitus intermediate insulin use: with project analyst use Diabetes mellitus complication status: with skin complications Diabetes mellitus complication detail: with foot ulcer Qualified Code(s): E11.621 - Type 2 diabetes mellitus with foot ulcer; L97.509 - Non-pressure chronic ulcer of other part of unspecified foot with unspecified severity; Z79.4 - [employer] services program associate (current) use of insulin (5) HTN (hypertension) Qualifiers: Hypertension type: essential hypertension Qualified Code(s): I10 - Essential (primary) hypertension (6) HLD (hyperlipidemia) Qualifiers: Hyperlipidemia type: other hyperlipidemia Qualified Code(s): E78.4 - Other hyperlipidemia (7) Diastolic heart failure Qualifiers: Heart failure chronicity: chronic Qualified Code(s): I50.32 - Chronic diastolic (congestive) heart failure
[2018-03-08] MEDS: Loratadine 10 MG TABLET PO SCH (09:28)
[2018-03-08] MEDS: Lactobacillus 1 EACH CAP.SPRINK PO SCH ×2 (09:28→20:58)
[2018-03-08] MEDS: Ascorbic Acid 500 MG TABLET PO SCH ×2 (09:28→20:57)
[2018-03-08] MEDS: Sucralfate 1 GM TABLET PO SCH ×2 (09:28→18:32)
[2018-03-08] MEDS: Pregabalin 75 MG CAPSULE PO SCH ×2 (09:28→20:58)
[2018-03-08] MEDS: Insulin LISPRO 300 UNITS/3 ML VIAL SQ SCH ×5 (09:30→21:34)
[2018-03-08] MEDS: cefTRIAXone 1,000 MG in Water for inj. (sterile) 20 ML 10 ML IVP SCH (09:32)
[2018-03-08] MEDS: Ketoconazole 2% CRM 15 GM TUBE TP SCH (09:38)
[2018-03-08] MEDS: Fluticasone Propionate Nasal 50 MCG/SPRAY BOTTLE NS SCH ×2 (09:38→09:51)
[2018-03-08 11:33] LABS: Hematocrit 24.9 % (35.3-44.9); Hemoglobin 7.8 g/dL (11.5-15.4)
[2018-03-08] MEDS: tiZANidine 4 MG TABLET PO SCH (15:21)
[2018-03-08 16:26] LABS: Hematocrit 26.9 % (35.3-44.9); Hemoglobin 8.5 g/dL (11.5-15.4)
[2018-03-08] MEDS: Gabapentin 300 MG CAPSULE PO SCH (20:58)
[2018-03-08] MEDS: Insulin DETEMIR 100 UNIT/ML X5UNITS SQ SCH (20:59)
[2018-03-08] MEDS: Latanoprost 2.5 ML BOTTLE BOTH EYES SCH (21:01)
[2018-03-08 21:18] LABS: Hematocrit 26.2 % (35.3-44.9); Hemoglobin 8.2 g/dL (11.5-15.4)
[2018-03-09 04:26] LABS: Basophils % 0.4 %; Eosinophils # 0.3 K/mcL (0.0-0.6); Eosinophils % 3.4 %; Hematocrit 27.4 % (35.3-44.9); Hemoglobin 8.6 g/dL (11.5-15.4); Immature Granulocytes % 0.8 % (0-4); Lymphocytes # 2.2 K/mcL (0.6-4.6); Mean Corpuscular HGB Conc 31.4 g/dL (31.6-35.5); Mean Corpuscular Hemoglobin 28.3 pg (28.0-33.3); Mean Corpuscular Volume 90.1 fL (83.0-100.0); Mean Platelet Volume 13.1 fL (9.4-12.4); Monocytes # 0.5 K/mcL (0.0-1.3); Monocytes % 5.1 %; Neutrophils # 5.9 K/mcL (1.6-8.9); Platelet Count 226 K/mcL (140-400); Red Blood Count 3.04 M/mcL (3.82-4.97); Red Cell Distribution Width 15.2 % (11.5-14.5); Segmented Neutrophils % 66.3 %
[2018-03-09 04:41] LABS: Albumin 2.6 g/dL (3.5-5.7); Albumin/Globulin Ratio 0.7 (1.1-2.2); Bilirubin,Total 0.1 mg/dL (0.3-1.0); Calcium 8.9 mg/dL (8.6-10.3); Total Protein 6.6 g/dL (6.4-8.9)
[2018-03-09] MEDS: tiZANidine 4 MG TABLET PO SCH ×4 (06:52→21:41)
[2018-03-09] MEDS: *HR* Heparin 5,000 UNIT/ML VIAL SQ SCH ×3 (06:54→21:06)
[2018-03-09] MEDS ORDERED: *HR* Metoprolol 5 MG/5 ML VIAL IVP PRN (08:12)
[2018-03-09] MEDS: Lactobacillus 1 EACH CAP.SPRINK PO SCH ×2 (09:01→21:07)
[2018-03-09] MEDS: Loratadine 10 MG TABLET PO SCH (09:01)
[2018-03-09] MEDS: Ascorbic Acid 500 MG TABLET PO SCH ×2 (09:01→21:07)
[2018-03-09] MEDS: Sucralfate 1 GM TABLET PO SCH ×2 (09:01→18:28)
[2018-03-09] MEDS: Pregabalin 75 MG CAPSULE PO SCH ×2 (09:01→21:07)
[2018-03-09] MEDS: cefTRIAXone 1,000 MG in Water for inj. (sterile) 20 ML 10 ML IVP SCH (09:02)
[2018-03-09] MEDS: Ketoconazole 2% CRM 15 GM TUBE TP SCH (09:14)
[2018-03-09] MEDS: Fluticasone Propionate Nasal 50 MCG/SPRAY BOTTLE NS SCH (09:14)
[2018-03-09] MEDS: Insulin LISPRO 300 UNITS/3 ML VIAL SQ SCH ×4 (09:15→21:08)
--- NOTE | 2018-03-09 10:11 | Internal Med Progress Note ---
<Meliza Jean Baptiste - Last Filed: 03/09/18 16:34> Hospitalist Progress Note - Encounter Date of Encounter: 03/09/18 Time of Encounter: 10:09 - Subjective Interval History: 58 F with hx of CHF, CM, HTN, chronic right heel wound, admitted 03/07 with hypotention (SBP 94) and DOROTHEA. UA consistent with UTI. CXR showed moderate bilateral pleural effusions, unchanged from previous. She was started on IVF and given Rocephin. She was recently admitted 01/30-02/26 for pneumonia. During that hospital stay she developed a GI bleed requiring blood transfusion. She also had wound vac placed for her chronic right heel wound. Upon further chart review the wound care clinic note was completed which revealed there was initial concern for CVA due to facial droop and right sided weakness. The patient's states her facial droop and ptosis is chronic. Today the patient states she is feeling well and asking to leave. She has been eating well. - Exam Vitals: Temp Pulse Resp BP Pulse Ox 98.6 F 112 18 139/70 91 03/09/18 07:32 03/09/18 07:32 03/09/18 07:32 03/09/18 07:32 03/09/18 07:32 Exam: Gen: Obese, sitting upright in bed eating breakfast. Answers questions appropriately. In no acute distress. HEENT: NC/AT. Right sided facial droop and ptosis. Moist mucous membranes. Nasal cannula in place, on 2L Neck: No JVD CV: S1 S2, RRR, no murmurs, gallops, or rub Resp: Crackles in bases bilaterally, no wheezing, no rhonchi Abd: Soft, nontender, no masses, bowel sounds present, has ruiz Extrem: lower extremities with trace edema bilaterally. Radial and PT pulses 2+ bilaterally. Skin: R heel wound bandaged with wound vac draining serosanguinous fluid. Shallow red ulcer on great toe bilaterally. Venous stasis changes on anterior shins bilaterally. Neuro: CN II-XII grossly intact, moving all extremities, decreased sensation in BLE, right sided facial droop and ptosis, PERRL, EOMI, BLE/UE strength 3/5, normal finger to nose testing Psych: normal affect - Assessment and Plan (1) Facial droop Current Visit: Yes Status: Acute Assessment and Plan: - Patient with right sided facial droop and ptosis of unclear duration. Wound care notes raised concerns that this is a new finding, which warrants a stroke workup though the patient states she is not subjectively more weak than usual and her states the ptosis and right sided facial droop are unchanged from baseline - Will obtain CT head/brain without contrast - If negative, will obtain MRI brain/head for evidence of ischemic changes - May require addition of ASA 81mg but with caution due to history of recent GI bleed (2) UTI (urinary tract infection) Current Visit: Yes Status: Acute Assessment and Plan: - Urine culture revealed mixed picture - Asymptomatic. Has ruiz in place. - Continues on rocephin - Monitor WBC, normalized now (3) Acute kidney injury Current Visit: Yes Status: Resolved Assessment and Plan: - Improving. Cr. Now 1.69, down from 2.14. - Likely prerenal from dehydration/hypotension given BUN/Cr >20. - IVF have been discontinued as patient is eating and drinking well - Monitor BUN, Cr, urine output - Avoid nephrotoxic drugs (4) Anemia Current Visit: Yes Status: Acute Assessment and Plan: - Hb 8.6 today, up from 8.2 yesterday. Likely dilutional. - Need to monitor due to patients recent history of GI bleed requiring transfusion during last admission. (5) Diabetes mellitus Current Visit: Yes Status: Chronic Assessment and Plan: - Continues on basal and sliding scale insulin -Continuing to monitor, blood glucose 146 this morning - Wound vac in place, follows with wound clinic. Is not on antibiotics as outpatient. - Wound care/podiatry following - Continue wound vac and daily dressing changes (6) HTN (hypertension) Current Visit: No Status: Chronic Assessment and Plan: - Patient on cardizem 120mg, lasix 40mg BID, and losartan 100mg as outpatin. - Meds were held due to hypotension seen on admission. BP 139/70 today, tachycardic - Continuing carvedilol 6.25mg - added Lopressor for tachycardia, likely she is continuing to clear her cardizem (7) HLD (hyperlipidemia) Current Visit: Yes Status: Chronic Assessment and Plan: - Continues on home lipitor 40mg daily (8) Diastolic heart failure Current Visit: No Status: Chronic Assessment and Plan: - Last echo done 01/31 showed normal EF 65%, mild LV diastolic dysfunction. Has crackles in bases. - Continuing to monitor for evidence of heart failure - Chest XR today without change from admission (9) Morbid obesity Current Visit: Yes Status: Chronic Assessment and Plan: - BMI 52.1 - On diabetic/cardiac diet (10) DVT prophylaxis Current Visit: Yes Status: Acute Assessment and Plan: - Continues on subQ heparin - Time Spent with Patient Total time spent is greater than 50% in coordination of care (as documented) at patient's floor/unit and/or counseling patient: 25 - 35 minutes Internal Medicine: Result - Labs CBC & Chem 7: 03/09/18 04:09 03/09/18 04:09 Labs: Short CBC 03/08/18 03/08/18 03/08/18 Range/Units 11:12 16:10 21:08 WBC (4.3-11.1) K/mcL Hgb 7.8 L 8.5 L 8.2 L (11.5-15.4) g/dL Hct 24.9 L 26.9 L 26.2 L (35.3-44.9) % Plt Count (140-400) K/mcL Neutrophils # (1.6-8.9) K/mcL 03/09/18 Range/Units 04:09 WBC 8.9 (4.3-11.1) K/mcL Hgb 8.6 L (11.5-15.4) g/dL Hct 27.4 L (35.3-44.9) % Plt Count 226 (140-400) K/mcL Neutrophils # 5.9 (1.6-8.9) K/mcL BMP 03/09/18 04:09 Sodium 138 Potassium 5.0 Chloride 106 Carbon Dioxide 26 BUN 71 H Creatinine 1.69 H Glucose 146 H Calcium 8.9 Liver Function 03/09/18 Range/Units 04:09 Total Bilirubin 0.1 L (0.3-1.0) mg/dL AST 9 L (13-39) Units/L ALT 5 L (7-52) Units/L Alkaline Phosphatase 64 (34-104) Units/L Albumin 2.6 L (3.5-5.7) g/dL Consult Discharge Plan - Plan Referrals: Jc Tsai MD [Primary Care Provider] - <Sg Zelaya - Last Filed: 03/09/18 20:26> Hospitalist Progress Note - Encounter Date of Encounter: 03/09/18 - Exam Vitals: Temp Pulse Resp BP Pulse Ox 98.8 F 122 17 131/62 95 03/09/18 16:17 03/09/18 16:17 03/09/18 16:17 03/09/18 16:17 03/09/18 16:17 - Time Spent with Patient Total time spent is greater than 50% in coordination of care (as documented) at patient's floor/unit and/or counseling patient: Internal Medicine: Result - Labs CBC & Chem 7: 03/09/18 04:09 03/09/18 04:09 Labs: Short CBC 03/08/18 03/09/18 Range/Units 21:08 04:09 WBC 8.9 (4.3-11.1) K/mcL Hgb 8.2 L 8.6 L (11.5-15.4) g/dL Hct 26.2 L 27.4 L (35.3-44.9) % Plt Count 226 (140-400) K/mcL Neutrophils # 5.9 (1.6-8.9) K/mcL BMP 03/09/18 04:09 Sodium 138 Potassium 5.0 Chloride 106 Carbon Dioxide 26 BUN 71 H Creatinine 1.69 H Glucose 146 H Calcium 8.9 Liver Function 03/09/18 Range/Units 04:09 Total Bilirubin 0.1 L (0.3-1.0) mg/dL AST 9 L (13-39) Units/L ALT 5 L (7-52) Units/L Alkaline Phosphatase 64 (34-104) Units/L Albumin 2.6 L (3.5-5.7) g/dL - Impressions Impressions Chest X-Ray 03/09/18 08:59 IMPRESSION: Persistent cardiomegaly with pulmonary vascular congestion and bibasilar volume loss. No definite change identified. D/ / 03/09/2018 11:10:35 Federico Mariee MD / bcarter Interpreting Provider: Federico Mariee MD Head CT 03/09/18 10:00 IMPRESSION: No acute intracranial abnormality. D/ / Oswaldo Soriano MD / Oswaldo Soriano MD Interpreting Provider: Oswaldo Soriano MD Brain MRI 03/09/18 11:50 IMPRESSION: No acute intracranial abnormality. D/ / 03/09/2018 18:15:30 Kory Harrington MD / [email or web address] Interpreting Provider: Kory Harrington MD - Attending Attestation I examined this patient and my medical decision-making was reviewed with the Resident Physician Dr. Shetty. I agree with the documented findings, disposition and treatment plan as described except to the extent set forth below. <Meliza Jean Baptiste - Last Filed: 03/09/18 16:34> (2) UTI (urinary tract infection) Qualifiers: Urinary tract infection type: site unspecified Hematuria presence: without hematuria Qualified Code(s): N39.0 - Urinary tract infection, site not specified (4) Anemia Qualifiers: Anemia type: unspecified type Qualified Code(s): D64.9 - Anemia, unspecified (5) Diabetes mellitus Qualifiers: Diabetes mellitus type: type 2 Diabetes mellitus tie layer insulin use: with fci use Diabetes mellitus complication status: with skin complications Diabetes mellitus complication detail: with foot ulcer Qualified Code(s): E11.621 - Type 2 diabetes mellitus with foot ulcer; L97.509 - Non-pressure chronic ulcer of other part of unspecified foot with unspecified severity; Z79.4 - nursing home (current) use of insulin (6) HTN (hypertension) Qualifiers: Hypertension type: essential hypertension Qualified Code(s): I10 - Essential (primary) hypertension (7) HLD (hyperlipidemia) Qualifiers: Hyperlipidemia type: other hyperlipidemia Qualified Code(s): E78.4 - Other hyperlipidemia (8) Diastolic heart failure Qualifiers: Heart failure chronicity: chronic Qualified Code(s): I50.32 - Chronic diastolic (congestive) heart failure
--- NOTE | 2018-03-09 12:45 | Podiatry Consult Note ---
Date of Encounter: 03/09/18 Time of Encounter: 12:00 Assessment and Plan (1) Heel ulcer due to DM Current visit: No Status: Acute Assessment: chronic ulceration of right heel s/p I&D, graft jacket and wound vac application Plan: Continue current treatment wound vac change MWF- small black simplace sponge, drape skin for protection, 125mmHg suction- monitor output Will need to follow in wound care center with after discharge for continued wound care treatment Patient has not been admitted regarding heel ulceration- will continue to follow Qualifiers: Diabetes mellitus type: type 2 Laterality: right Non-pressure ulcer stage : with muscle involvement without evidence of necrosis Qualified Code(s): E11.621 - Type 2 diabetes mellitus with foot ulcer; L97.415 - Non-pressure chronic ulcer of right heel and midfoot with muscle involvement without evidence of necrosis History of Present Illness HPI: Ms. Magallanes is a 58 year old female who was admitted after being seen in [facility] for a follow up of right heel wound. She was noted to have slurred speech and facial drop and was sent to ED. on 02/01 patient underwent aggressive I&D with application of graft jacket and wound vac per . She was discharged on 02/26. Patient was readmitted yesterday. Upon entering room patient is noted to have slurred speech and hard to understand. She does seem tired. On last visit Wound cultures of right leg from 01/18/18 isolated MRSA. Surgical biopsy culture from 02/01/18- Klebsiella pneumoniae MDRO, proteus penneri, Vancomycin Enterococcus faecium Wound culture right foot 02/01/18- Klebsiella pneumoniae MDRO, proteus penneri, Vancomycin Enterococcus faecium Patient has finished antibiotic therapy We have been consulted to continue to follow the right heel wound. Past Med Surg Social Fam HX - Past Medical History Medical history: CHF, diabetes, hyperlipidemia, hypertension, other Additional medical history: DM Neuropathy. Type II Diabetic Psychiatric history: depression - Past Surgical History Surgical History: hysterectomy, other Additional surgical history: neck surgery - Social History Smoking Status: Never smoker Smokeless Tobacco Status: No Alcohol use: none Drug use: none - Family History Mother Adopted: No Family Member Ethnicity: Non- Living Status: Hx Family Endocrine Disorder: Yes (diabetes type 2) Father Adopted: No Family Member Ethnicity: Non- Living Status: Hx Family Cardiac Disorders: Yes (hypertension) Hx Family Respiratory Disorders: No Hx Family Cancer: No Hx Family GI Disorders: No Hx Family Endocrine Disorder: Yes (kidney disease) Medications and Allergies Atorvastatin [Lipitor] 40 mg PO HS 01/11/16 [History] Insulin ASPART [Novolog Flexpen] 6 - 14 unit SQ TID 01/11/16 [History] Latanoprost [Xalatan] 1 drop BOTH EYES HS 01/11/16 [History] Primidone [Mysoline] 25 - 50 mg PO BID PRN 01/11/16 [History] Ascorbic Acid [Vitamin C] 500 mg PO BID 03/25/16 [History] Docusate Sodium [Colace] 200 mg PO BID 03/25/16 [History] Furosemide [Lasix] 40 mg PO BID 12/06/16 [History] Fluticasone Propionate Nasal [Flonase] 2 spray NS DAILY #1 bottle 08/28/17 [Rx] Ketoconazole 2% CRM [Nizoral Cream] 1 appl TP DAILY 11/10/17 [History] Ketorolac Tromethamine 1 drop OP QID 11/10/17 [History] Losartan Potassium [Cozaar] 100 mg PO DAILY 11/10/17 [History] Tizanidine HCl 4 mg PO TID 11/20/17 [History] Calcium Carbonate [Tums] 1,000 mg PO Q4HR PRN tab.chew 11/24/17 [Rx] Carvedilol [Coreg] 6.25 mg PO BIDWM tablet 11/24/17 [Rx] Lactobacillus Acidophilus [Acidophilus] 1 each PO BID #10 capsule 11/24/17 [Rx] Gabapentin [Neurontin] 300 mg PO HS 01/17/18 [History] Ferrous Sulfate 325 mg PO BID 01/30/18 [History] Loratadine [Allergy Relief] 10 mg PO DAILY 01/30/18 [History] Pantoprazole Sodium [Protonix] 40 mg PO DAILY 01/30/18 [History] Polyethylene Glycol 3350 [MiraLAX] 17 gm PO DAILY 01/30/18 [History] Sucralfate [Carafate] 1 gm PO 0730,1630 30 Days #60 tablet 02/16/18 [Rx] Diltiazem CD (24hr) [Cardizem CD] 120 mg PO DAILY 02/20/18 [History] Insulin DETEMIR [Levemir] 30 unit SQ HS [id number] 02/26/18 [Rx] Ipratropium/Albuterol Neb [Duoneb] 3 ml IH [id number] PRN inhsol 02/26/18 [Rx] Pregabalin [Lyrica] 75 mg PO BID 30 Days #60 capsule 02/26/18 [Rx] Simethicone [Gas-X] 80 mg PO TID PRN tab.chew 02/26/18 [Rx] clonazePAM [Klonopin] 0.5 mg PO BID PRN 5 Days #10 tablet 02/26/18 [Rx] Brimonidine Tartrate/Timolol [Combigan Eye Drops] 1 drop BOTH EYES BID 03/07/18 [History] 3 Allergy/AdvReac Type Severity Reaction Status Date / Time lisinopril [From Zestril] Allergy Rash Verified 01/17/18 13:50 All Systems Reviewed: as per HPI Physical Exam - Constitutional Vitals: Temp Pulse Resp BP Pulse Ox 98.3 F 117 16 155/83 90 03/09/18 11:50 03/09/18 11:50 03/09/18 11:50 03/09/18 11:50 03/09/18 11:50 Exam: General Examination: CONSTITUTIONAL: Alert, oriented,slightly lethargic and slurred speech noted EXTREMITIES: CFT 3 seconds all toes. Edema +1 and pedal pulses palpable. SKIN: Skin with decreased turgor, decreased subcutaneous tissue, skin thin and shiny with trophic changes associated with comorbidities as described in history.. NEUROLOGIC: Diminished sensation to light/moderate touch s/p application of skin graft and wound vac application to right heel Wound vac intact and running without complication- no erythema or edema surrounding wound. Appears to be healing well. No warmth. No drainage noted to canister. Wound vac was changed yesterday per so it will not be changed during exam today. We were consulted regarding an ankle wound however there is no wound to the ankle- wound is to heel andvac is tracked to ankle- both ankles were checked to ensure no wounds were noted. Results - Labs Result Diagrams: 03/09/18 04:09 03/09/18 04:09 Labs: Abnormal lab results RBC 3.04 M/mcL (3.82-4.97) L 03/09/18 04:09 Hgb 8.6 g/dL (11.5-15.4) L 03/09/18 04:09 Hct 27.4 % (35.3-44.9) L 03/09/18 04:09 MCHC 31.4 g/dL (31.6-35.5) L 03/09/18 04:09 RDW 15.2 % (11.5-14.5) H 03/09/18 04:09 MPV 13.1 fL (9.4-12.4) H 03/09/18 04:09 BUN 71 mg/dL (6-20) H 03/09/18 04:09 Creatinine 1.69 mg/dL (0.60-1.20) H 03/09/18 04:09 Est GFR ( Amer) 38 (> 60) L 03/09/18 04:09 Est GFR (Non-Af Amer) 31 (> 60) L 03/09/18 04:09 BUN/Creatinine Ratio 42 (6-26) H 03/09/18 04:09 Glucose 146 mg/dL (70-105) H 03/09/18 04:09 POC Glucose 135 mg/dL (70-99) H 03/09/18 07:29 Calculated Osmolality 309 (280-300) H 03/09/18 04:09 Total Bilirubin 0.1 mg/dL (0.3-1.0) L 03/09/18 04:09 AST 9 Units/L (13-39) L 03/09/18 04:09 ALT 5 Units/L (7-52) L 03/09/18 04:09 Albumin 2.6 g/dL (3.5-5.7) L 03/09/18 04:09 Globulin 4.0 g/dL (2.4-3.5) H 03/09/18 04:09 Albumin/Globulin Ratio 0.7 (1.1-2.2) L 03/09/18 04:09 Ur Specimen Adequacy See below A 03/07/18 14:11 Urine Clarity Turbid (Clear) A 03/07/18 21:30 Urine Protein 100 mg/dL (Neg-Trace) H 03/07/18 21:30 Urine Blood Moderate (Negative) H 03/07/18 21:30 Ur Leukocyte Esterase Large (Negative) H 03/07/18 21:30 Urine Microscopic RBC 15-30 per hpf (0-3) H 03/07/18 21:30 Urine Microscopic WBC TNTC per hpf (0-3) H 03/07/18 21:30 Ur Squamous Epith Cells Many per lpf (None-Few) H 03/07/18 21:30 Urine Bacteria Moderate per hpf (None-Few) H 03/07/18 21:30 Urine Yeast Few per hpf (None Seen) H 18 21:30 Ur Culture Indicated? NO. (NO) A 03/07/18 21:30 H & H 03/08/18 03/08/18 03/09/18 Range/Units 16:10 21:08 04:09 Hgb 8.5 L 8.2 L 8.6 L (11.5-15.4) g/dL Hct 26.9 L 26.2 L 27.4 L (35.3-44.9) % All other labs normal. Consult Discharge Plan - Plan Referrals: Jc Tsai MD [Primary Care Provider] -
[2018-03-09] MEDS ORDERED: Diltiazem CD (24hr) 120 MG CAPSULE PO SCH (21:00)
[2018-03-09] MEDS: Latanoprost 2.5 ML BOTTLE BOTH EYES SCH (21:06)
[2018-03-09] MEDS: Gabapentin 300 MG CAPSULE PO SCH (21:07)
[2018-03-09] MEDS: Insulin DETEMIR 100 UNIT/ML X5UNITS SQ SCH (21:12)
[2018-03-10] MEDS: *HR* Heparin 5,000 UNIT/ML VIAL SQ SCH (06:46)
[2018-03-10 06:49] LABS: Basophils % 0.3 %; Eosinophils # 0.4 K/mcL (0.0-0.6); Eosinophils % 4.6 %; Hemoglobin 9.1 g/dL (11.5-15.4); Immature Granulocytes % 0.7 % (0-4); Immature Platelets 12.4 % (1.1-6.1); Lymphocytes # 2.3 K/mcL (0.6-4.6); Lymphocytes % 25.3 %; Mean Corpuscular HGB Conc 31.4 g/dL (31.6-35.5); Mean Corpuscular Hemoglobin 28.3 pg (28.0-33.3); Mean Corpuscular Volume 90.1 fL (83.0-100.0); Mean Platelet Volume 13.2 fL (9.4-12.4); Monocytes # 0.6 K/mcL (0.0-1.3); Monocytes % 6.6 %; Neutrophils # 5.6 K/mcL (1.6-8.9); Platelet Count 201 K/mcL (140-400); Red Blood Count 3.22 M/mcL (3.82-4.97); Red Cell Distribution Width 15.1 % (11.5-14.5); Segmented Neutrophils % 62.5 %
[2018-03-10 07:31] LABS: Albumin 2.6 g/dL (3.5-5.7); Albumin/Globulin Ratio 0.6 (1.1-2.2); Bilirubin,Total 0.2 mg/dL (0.3-1.0); Calcium 9.1 mg/dL (8.6-10.3); Globulin 4.2 g/dL (2.4-3.5); Potassium 4.4 mEq/L (3.5-5.1); Total Protein 6.8 g/dL (6.4-8.9)
[2018-03-10] MEDS: Insulin LISPRO 300 UNITS/3 ML VIAL SQ SCH ×2 (08:19→12:27)
[2018-03-10] MEDS: Pregabalin 75 MG CAPSULE PO SCH (08:48)
[2018-03-10] MEDS: Ascorbic Acid 500 MG TABLET PO SCH (08:48)
[2018-03-10] MEDS: tiZANidine 4 MG TABLET PO SCH (08:48)
[2018-03-10] MEDS: Sucralfate 1 GM TABLET PO SCH (08:48)
[2018-03-10] MEDS: Lactobacillus 1 EACH CAP.SPRINK PO SCH (08:48)
[2018-03-10] MEDS: cefTRIAXone 1,000 MG in Water for inj. (sterile) 20 ML 10 ML IVP SCH (08:49)
[2018-03-10] MEDS: Loratadine 10 MG TABLET PO SCH (08:49)
[2018-03-10] MEDS: Ketoconazole 2% CRM 15 GM TUBE TP SCH (08:51)
[2018-03-10] MEDS: Fluticasone Propionate Nasal 50 MCG/SPRAY BOTTLE NS SCH (08:53)
--- NOTE | 2018-03-10 09:42 | Discharge Summary ---
<Meliza Jean Baptiste - Last Filed: 03/10/18 12:42> - NOTES TO OUTPATIENT PROVIDER Notes to Outpatient Provider: Lasix and losartan held due to hypotension, back on carvedilol 6.25 BID and cardizem 120mg. Reevaluate the need for resuming these home medications with clinical status. Recommend repeat BMP in 1-2 days. Consider ASA 81 Orders not resulted at time of discharge: Pending orders 03/11/18 04:00 Complete Blood Count [HEME] AM 0400 Comprehensive Metabolic Panel AM 0400 03/12/18 04:00 Complete Blood Count [HEME] AM 0400 Comprehensive Metabolic Panel AM 0400 Date of Encounter: 03/10/18 Time of Encounter: 09:40 - Discharge Diagnosis (1) Facial droop Priority: Primary Status: Acute (2) UTI (urinary tract infection) Priority: Secondary Status: Acute Qualifiers: Urinary tract infection type: site unspecified Hematuria presence: without hematuria Qualified Code(s): N39.0 - Urinary tract infection, site not specified (3) Acute kidney injury Priority: Secondary Status: Resolved (4) Anemia Priority: Secondary Status: Acute Qualifiers: Anemia type: unspecified type Qualified Code(s): D64.9 - Anemia, unspecified (5) Diabetes mellitus Priority: Secondary Status: Chronic Qualifiers: Diabetes mellitus type: type 2 Diabetes mellitus fpc insulin use: with fpc use Diabetes mellitus complication status: with skin complications Diabetes mellitus complication detail: with foot ulcer Qualified Code(s): E11.621 - Type 2 diabetes mellitus with foot ulcer; L97.509 - Non-pressure chronic ulcer of other part of unspecified foot with unspecified severity; Z79.4 - jail (current) use of insulin (6) HTN (hypertension) Priority: Secondary Status: Chronic Qualifiers: Hypertension type: essential hypertension Qualified Code(s): I10 - Essential (primary) hypertension (7) HLD (hyperlipidemia) Priority: Secondary Status: Chronic Qualifiers: Hyperlipidemia type: other hyperlipidemia Qualified Code(s): E78.4 - Other hyperlipidemia (8) Diastolic heart failure Priority: Secondary Status: Chronic Qualifiers: Heart failure chronicity: chronic Qualified Code(s): I50.32 - Chronic diastolic (congestive) heart failure (9) Morbid obesity Priority: Secondary Status: Chronic (10) DVT prophylaxis Priority: Secondary Status: Acute Hospital course: Ms. Magallanes is a 58 year old female with hx of CHF, CM, HTN, chronic right heel wound, who presented to the emergency department on 03/07/18 from the wound care clinic with concern for hypotension. Patient was asymptomatic but was found to have leukocytosis 15.3, blood pressure of 98/51 and the patient was otherwise stable. Cardizem, lasix, and losartan were held with improvement in her blood pressure. She was found to have an DOROTHEA and suspected complicated UTI which was treated with IVF and rocephin. After admission, outpatient documentation became available which revealed the initial reason for being sent to the ED visit was concern for CVA as well as hypotension as she had right sided weakness and facial droop. The patient does have visible facial droop and ptosis but her reported this is a chronic finding. She underwent CT head which was unremarkable and subsequent MRI brain revealed no evidence of acute or chronic ischemic changes. She was treated for suspected complicated UTI given indwelling ruiz with rocephin and will be discharged home on Omnicef 300mg BID. Prior to discharge she was found to be tachycardic and was placed on back on cardizem with improvement in her vitals. Will resume home BP medications as tolerated as an outpatient. She understands the need for follow up with wound clinic for management of her ulcer and with her PCP. The patient and agree with and understand the course of treatment plan including plan for discharge and follow up. All questions answered. - Time Spent with Patient Total time spent providing and/or coordinating discharge services: Greater than 30 minutes - Discharge Medications Prescriptions: Cefdinir [Omnicef] 300 mg PO BID 5 Days #10 capsule Home Medications: Atorvastatin [Lipitor] 40 mg PO HS 01/11/16 [History] Insulin ASPART [Novolog Flexpen] 6 - 14 unit SQ TID 01/11/16 [History] Latanoprost [Xalatan] 1 drop BOTH EYES HS 01/11/16 [History] Primidone [Mysoline] 25 - 50 mg PO BID PRN 01/11/16 [History] Ascorbic Acid [Vitamin C] 500 mg PO BID 03/25/16 [History] Docusate Sodium [Colace] 200 mg PO BID 03/25/16 [History] Furosemide [Lasix] 40 mg PO BID 12/06/16 [History] Fluticasone Propionate Nasal [Flonase] 2 spray NS DAILY #1 bottle 08/28/17 [Rx] Ketoconazole 2% CRM [Nizoral Cream] 1 appl TP DAILY 11/10/17 [History] Ketorolac Tromethamine 1 drop OP QID 11/10/17 [History] Losartan Potassium [Cozaar] 100 mg PO DAILY 11/10/17 [History] Tizanidine HCl 4 mg PO TID 11/20/17 [History] Calcium Carbonate [Tums] 1,000 mg PO Q4HR PRN tab.chew 11/24/17 [Rx] Carvedilol [Coreg] 6.25 mg PO BIDWM tablet 11/24/17 [Rx] Lactobacillus Acidophilus [Acidophilus] 1 each PO BID #10 capsule 11/24/17 [Rx] Gabapentin [Neurontin] 300 mg PO HS 01/17/18 [History] Ferrous Sulfate 325 mg PO BID 01/30/18 [History] Loratadine [Allergy Relief] 10 mg PO DAILY 01/30/18 [History] Pantoprazole Sodium [Protonix] 40 mg PO DAILY 01/30/18 [History] Polyethylene Glycol 3350 [MiraLAX] 17 gm PO DAILY 01/30/18 [History] Sucralfate [Carafate] 1 gm PO 0730,1630 30 Days #60 tablet 02/16/18 [Rx] Diltiazem CD (24hr) [Cardizem CD] 120 mg PO DAILY 02/20/18 [History] Insulin DETEMIR [Levemir] 30 unit SQ HS [id number] 02/26/18 [Rx] Ipratropium/Albuterol Neb [Duoneb] 3 ml IH [id number] PRN inhsol 02/26/18 [Rx] Pregabalin [Lyrica] 75 mg PO BID 30 Days #60 capsule 02/26/18 [Rx] Simethicone [Gas-X] 80 mg PO TID PRN tab.chew 02/26/18 [Rx] clonazePAM [Klonopin] 0.5 mg PO BID PRN 5 Days #10 tablet 02/26/18 [Rx] Brimonidine Tartrate/Timolol [Combigan 0.2%-0.5% Eye Drops] 1 drop BOTH EYES BID 03/07/18 [History] Cefdinir [Omnicef] 300 mg PO BID 5 Days #10 capsule 03/10/18 [Rx] Allergies/Adverse Reactions: 3 Allergy/AdvReac Type Severity Reaction Status Date / Time lisinopril [From Zestril] Allergy Rash Verified 01/17/18 13:50 Date of admission: 03/07/18 15:01 Primary care physician: Jc Tsai MD Consults: 03/08/18 07:58 Consult to Inspector Casing [CONS] Routine Reason for SW Consult: rtn signature 03/08/18 09:02 Consult to Occupational Therapy [CONS] Routine Comment: Evaluate, develop and implement POC Reason for Consult: pt needs pre-cert to return to ecf Does patient have active BEDREST order?: No Is patient medically & hemodynamically stable?: Yes Consult to Physical Therapy [CONS] Routine Comment: Evaluate, develop and implement POC Reason for Consult: pt needs pre-cert to return to e[facility] Does patient have active BEDREST order?: No Is patient medically & hemodynamically stable?: Yes 03/08/18 15:43 Consult to Podiatry [CONS] Routine Consulting Provider: [facility] Reason for Consult: ankle wound Time Notified: 15:44 Call Completed: Yes Discharging clinician: Meliza Jean Baptiste Anticipated date of discharge: 03/10/18 - Constitutional Vitals: Temp Pulse Resp BP Pulse Ox 98.3 F 74 16 125/76 96 03/10/18 05:23 03/10/18 05:23 03/10/18 05:23 03/10/18 05:23 03/10/18 09:12 Exam: Gen: Obese, sitting upright in bed eating breakfast. Answers questions appropriately. In no acute distress. HEENT: NC/AT. Right sided facial droop and ptosis. Moist mucous membranes. Nasal cannula in place, on 2L Neck: No JVD CV: S1 S2, RRR, no murmurs, gallops, or rub Resp: Crackles in bases bilaterally, no wheezing, no rhonchi Abd: Soft, nontender, no masses, bowel sounds present, has ruiz Extrem: lower extremities with trace edema bilaterally. Radial and PT pulses 2+ bilaterally. Skin: R heel wound bandaged with wound vac draining serosanguinous fluid. Shallow red ulcer on great toe bilaterally. Venous stasis changes on anterior shins bilaterally. Neuro: CN II-XII grossly intact, moving all extremities, decreased sensation in BLE, right sided facial droop and ptosis, PERRL, EOMI Psych: normal affect - Patient Status Disposition: Transfer Inpatient Rehab Fac Condition: Fair Functional capacity at discharge: bed bound Overall status at discharge: patient is progressing back to baseline - Discharge Instructions Follow Up With: Jc Tsai MD [Primary Care Provider] - - Diet and Activity Activity: as per physical therapy Diet: diabetic diet <ChecoaneZohra ramsay Rheem - Last Filed: 03/10/18 14:28> Orders not resulted at time of discharge: Pending orders 03/11/18 04:00 Complete Blood Count [HEME] AM 0400 Comprehensive Metabolic Panel AM 0400 03/12/18 04:00 Complete Blood Count [HEME] AM 0400 Comprehensive Metabolic Panel AM 0400 Date of Encounter: 03/10/18 Hospital course: Ms. Magallanes is a 58 year old female - Time Spent with Patient Total time spent providing and/or coordinating discharge services: Date of admission: 03/07/18 15:01 Primary care physician: Jc Tsai MD Consults: 03/08/18 07:58 Consult to Inspector Casing [CONS] Routine Reason for SW Consult: rtn signature 03/08/18 09:02 Consult to Occupational Therapy [CONS] Routine Comment: Evaluate, develop and implement POC Reason for Consult: pt needs pre-cert to return to ecf Does patient have active BEDREST order?: No Is patient medically & hemodynamically stable?: Yes Consult to Physical Therapy [CONS] Routine Comment: Evaluate, develop and implement POC Reason for Consult: pt needs pre-cert to return to ecf Does patient have active BEDREST order?: No Is patient medically & hemodynamically stable?: Yes 03/08/18 15:43 Consult to Podiatry [CONS] Routine Consulting Provider: [facility] Reason for Consult: ankle wound Time Notified: 15:44 Call Completed: Yes - Constitutional Vitals: Temp Pulse Resp BP Pulse Ox 98.0 F 78 16 119/66 98 03/10/18 11:21 03/10/18 11:21 03/10/18 11:21 03/10/18 11:21 03/10/18 11:21 - Attending Attestation I examined this patient and my medical decision-making was reviewed with the Resident Physician Dr. Shetty. I agree with the documented findings, disposition and treatment plan as described except to the extent set forth below.
[2018-03-10 11:21] VITALS: BP 119/66
--- NOTE | 2018-03-10 13:12 | Physician Discharge Referral ---
[facility]Care Referral Info Transfer To: [facility] Provider in Charge after Transfer: PCP Institutional Level of Care: Skilled - Diagnosis (1) Facial droop Priority: Secondary Status: Acute (2) UTI (urinary tract infection) Priority: Primary Status: Acute (3) Acute kidney injury Priority: Secondary Status: Resolved (4) Anemia Priority: Secondary Status: Acute (5) Diabetes mellitus Priority: Secondary Status: Chronic (6) HTN (hypertension) Priority: Secondary Status: Chronic (7) HLD (hyperlipidemia) Priority: Secondary Status: Chronic (8) Diastolic heart failure Priority: Secondary Status: Chronic (9) Morbid obesity Priority: Secondary Status: Chronic (10) DVT prophylaxis Priority: Secondary Status: Acute - Transfer Medications Prescriptions: Cefdinir [Omnicef] 300 mg PO BID 5 Days #10 capsule Home Medications: Atorvastatin [Lipitor] 40 mg PO HS 01/11/16 [History] Insulin ASPART [Novolog Flexpen] 6 - 14 unit SQ TID 01/11/16 [History] Latanoprost [Xalatan] 1 drop BOTH EYES HS 01/11/16 [History] Primidone [Mysoline] 25 - 50 mg PO BID PRN 01/11/16 [History] Ascorbic Acid [Vitamin C] 500 mg PO BID 03/25/16 [History] Docusate Sodium [Colace] 200 mg PO BID 03/25/16 [History] Furosemide [Lasix] 40 mg PO BID 12/06/16 [History] Fluticasone Propionate Nasal [Flonase] 2 spray NS DAILY #1 bottle 08/28/17 [Rx] Ketoconazole 2% CRM [Nizoral Cream] 1 appl TP DAILY 11/10/17 [History] Ketorolac Tromethamine 1 drop OP QID 11/10/17 [History] Losartan Potassium [Cozaar] 100 mg PO DAILY 11/10/17 [History] Tizanidine HCl 4 mg PO TID 11/20/17 [History] Calcium Carbonate [Tums] 1,000 mg PO Q4HR PRN tab.chew 11/24/17 [Rx] Carvedilol [Coreg] 6.25 mg PO BIDWM tablet 11/24/17 [Rx] Lactobacillus Acidophilus [Acidophilus] 1 each PO BID #10 capsule 11/24/17 [Rx] Gabapentin [Neurontin] 300 mg PO HS 01/17/18 [History] Ferrous Sulfate 325 mg PO BID 01/30/18 [History] Loratadine [Allergy Relief] 10 mg PO DAILY 01/30/18 [History] Pantoprazole Sodium [Protonix] 40 mg PO DAILY 01/30/18 [History] Polyethylene Glycol 3350 [MiraLAX] 17 gm PO DAILY 01/30/18 [History] Sucralfate [Carafate] 1 gm PO 0730,1630 30 Days #60 tablet 02/16/18 [Rx] Diltiazem CD (24hr) [Cardizem CD] 120 mg PO DAILY 02/20/18 [History] Insulin DETEMIR [Levemir] 30 unit SQ HS [id number] 02/26/18 [Rx] Ipratropium/Albuterol Neb [Duoneb] 3 ml IH [id number] PRN inhsol 02/26/18 [Rx] Pregabalin [Lyrica] 75 mg PO BID 30 Days #60 capsule 02/26/18 [Rx] Simethicone [Gas-X] 80 mg PO TID PRN tab.chew 02/26/18 [Rx] clonazePAM [Klonopin] 0.5 mg PO BID PRN 5 Days #10 tablet 02/26/18 [Rx] Brimonidine Tartrate/Timolol [Combigan 0.2%-0.5% Eye Drops] 1 drop BOTH EYES BID 03/07/18 [History] Cefdinir [Omnicef] 300 mg PO BID 5 Days #10 capsule 03/10/18 [Rx] Allergies/Adverse Reactions: 3 Allergy/AdvReac Type Severity Reaction Status Date / Time lisinopril [From Zestril] Allergy Rash Verified 01/17/18 13:50 - Respiratory Orders Oxygen / L per min (2) Smoking Cessation: Smoking cessation has been advised. For more information, call the [employer] Quit Line at 8-477-FMOV-NOW. - Ancillary Orders May use pressure relief devices daily prn - Advance Directives Code Status: Full Code - Mobility Orders Ambulate (as tolerated per PT/OT recommendations) - Rehabiliation Orders Rehab Potential: Fair - Diet Orders Cardiac CERTIFICATION: I certify that the transfer of the above named patient to an Extended Care Facility is necessary for the continuing treatment of the diagnosis listed. The above information is true and accurate reflection of patient's current condition. Confidential - Redisclosure prohibited without a patient's written consent.
== END 2018-03-10 14:34 ==
LOC: 2ANU 12:14 → EMEROOARM 12:14 → SUATTDRO 15:01 → 2ANU 15:07
PROVIDERS: ADMIT Internal Medicine; ATTEND Student in an Organized Health Care Education/Training Program

== ENCOUNTER 2018-03-21 14:49 | Observation (INO) ==
[2018-03-21 15:50] LABS: Basophils # 0.1 K/mcL (0.0-0.2); Basophils % 0.5 %; Eosinophils # 0.2 K/mcL (0.0-0.6); Eosinophils % 1.5 %; Hematocrit 28.1 % (35.3-44.9); Hemoglobin 8.6 g/dL (11.5-15.4); Immature Granulocytes % 0.5 % (0-4); Lymphocytes # 2.5 K/mcL (0.6-4.6); Lymphocytes % 22.8 %; Mean Corpuscular HGB Conc 30.6 g/dL (31.6-35.5); Mean Corpuscular Hemoglobin 28.1 pg (28.0-33.3); Mean Corpuscular Volume 91.8 fL (83.0-100.0); Mean Platelet Volume 12.8 fL (9.4-12.4); Monocytes # 0.5 K/mcL (0.0-1.3); Monocytes % 4.8 %; Neutrophils # 7.7 K/mcL (1.6-8.9); Platelet Count 246 K/mcL (140-400); Red Blood Count 3.06 M/mcL (3.82-4.97); Red Cell Distribution Width 16.7 % (11.5-14.5); Segmented Neutrophils % 69.9 %
--- NOTE | 2018-03-21 15:54 | Emergency Department Note ---
Disposition Clinical Impression: Hyperkalemia, Acute on chronic renal insufficiency Heel ulcer Qualifiers: Laterality: right Non-pressure ulcer stage: unspecified non-pressure ulcer stage Qualified Code(s): L97.419 - Non-pressure chronic ulcer of right heel and midfoot with unspecified severity Disposition: Admitted As Inpatient Condition: Fair Time of Disposition: 16:26 Recheck wound or abnormal lab - General Chief Complaint: ED Recheck/Abnormal Lab/Rx Stated Complaint: Abnormal Labs Time Seen by Provider: 03/21/18 14:52 Source: patient, EMS Limitations: physical limitation Nursing Notes Reviewed: Yes Vital Signs Reviewed: Yes - History of Present Illness HPI Narrative: 58yo female presents from long term for evaluation of 'abnormal labs.' Documentation from long term shows serum potassium 6.0. Patient has no complaints at this time. hx of CHF, CKD, HTN, chronic right heel wound. ROS: Pos: as above NEg: fever, chills, nausea vomiting, chest pain, palpitations, dysuria, confusion - Related Data Home Medications Medication Instructions Recorded Confirmed Atorvastatin [Lipitor] 40 mg PO HS 01/11/16 03/07/18 Insulin ASPART [Novolog Flexpen] 6 - 14 unit SQ TID 01/11/16 03/07/18 Latanoprost [Xalatan] 1 drop BOTH EYES HS 01/11/16 03/07/18 Primidone [Mysoline] 25 - 50 mg PO BID PRN 01/11/16 03/07/18 Ascorbic Acid [Vitamin C] 500 mg PO BID 03/25/16 03/07/18 Docusate Sodium [Colace] 200 mg PO BID 03/25/16 03/07/18 Furosemide [Lasix] 40 mg PO BID 12/06/16 03/07/18 Ketoconazole 2% CRM [Nizoral Cream] 1 appl TP DAILY 11/10/17 03/07/18 Ketorolac Tromethamine 1 drop OP QID 11/10/17 03/07/18 Losartan Potassium [Cozaar] 100 mg PO DAILY 11/10/17 03/07/18 Tizanidine HCl 4 mg PO TID 11/20/17 03/07/18 Gabapentin [Neurontin] 300 mg PO HS 01/17/18 03/07/18 Ferrous Sulfate 325 mg PO BID 01/30/18 03/07/18 Loratadine [Allergy Relief] 10 mg PO DAILY 01/30/18 03/07/18 Pantoprazole Sodium [Protonix] 40 mg PO DAILY 01/30/18 03/07/18 Polyethylene Glycol 3350 [MiraLAX] 17 gm PO DAILY 01/30/18 03/07/18 Diltiazem CD (24hr) [Cardizem CD] 120 mg PO DAILY 02/20/18 03/07/18 Brimonidine Tartrate/Timolol 1 drop BOTH EYES BID 03/07/18 03/07/18 [Combigan 0.2%-0.5% Eye Drops] Previous Rx's Medication Instructions Recorded Fluticasone Propionate Nasal 2 spray NS DAILY #1 bottle 08/28/17 [Flonase] Calcium Carbonate [Tums] 1,000 mg PO Q4HR PRN tab.chew 11/24/17 Carvedilol [Coreg] 6.25 mg PO BIDWM tablet 11/24/17 Lactobacillus Acidophilus 1 each PO BID #10 capsule 11/24/17 [Acidophilus] Sucralfate [Carafate] 1 gm PO 0730,1630 30 Days #60 02/16/18 tablet Insulin DETEMIR [Levemir] 30 unit SQ HS [id number] 02/26/18 Ipratropium/Albuterol Neb [Duoneb] 3 ml IH [id number] PRN inhsol 02/26/18 Pregabalin [Lyrica] 75 mg PO BID 30 Days #60 capsule 02/26/18 Simethicone [Gas-X] 80 mg PO TID PRN tab.chew 02/26/18 clonazePAM [Klonopin] 0.5 mg PO BID PRN 5 Days #10 tablet 02/26/18 Cefdinir [Omnicef] 300 mg PO BID 5 Days #10 capsule 03/10/18 Allergies Allergy/AdvReac Type Severity Reaction Status Date / Time lisinopril [From Zestril] Allergy Rash Verified 01/17/18 13:50 All systems ED: reviewed and negative except as stated. 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 Head: atraumatic, normocephalic Eye: normal appearance, PERRL, EOMI, no scleral icterus, no conjunctival injection ENT: mucous membranes moist, normal external ear exam Neck: normal inspection, trachea midline, full ROM Chest: normal inspection, symmetric chest rise Respiratory: Good respiratory effort. Bilateral breath sounds are clear without wheezing, crackles, or rhonchi. Cardiovascular: Regular rate and rhythm. No clicks, rubs, gallops, or murmors. Normal heart sounds. Abdomen: Bowel sounds present normoactive x-4 quadrants. Abdomen is soft, nondistended, and nontender. No guarding or rebound. No organomegaly noted. Musculoskeletal: Spontaneously moving all extremities. Skin: warm, dry. Right heel skin graft with peripheral kasey intact; foul smelling, central necrosis, no purulance or desquamination. Neuro: Alert and oriented x4. Sensation light touch intact. Psych: Patient's affect is appropriate for situation. - General Limitations: physical limitation General appearance: in no apparent distress, obese Course Course Narrative: Concern as patient's renal function slowly declining; concerning considering her DM with oral antihyperglycemics. Patient remains hyperkalemic - no EKG changes. Asymptomatic. Also hypoglycemic - PO correction. Acute on chronic kidney injury. EKG dated 21 Mar 2018 at 15:21 interpreted as sinus rhythm with rate of 62. MI 121, QTc 446. T-waves not peaked or inverted. Non-specific STT changes. No previpous EKG for comparison. Patient admitted to the hospitalist for continued evaluation and management. Vital Signs Temperature 97.5 F L 03/21/18 14:55 Pulse Rate 63 03/21/18 14:55 Respiratory Rate 16 03/21/18 14:55 Blood Pressure 107/67 03/21/18 14:55 O2 Sat by Pulse Oximetry 99 03/21/18 14:55 Temperature 97.5 F L 03/21/18 14:55 Pulse Rate 80 03/21/18 16:38 Respiratory Rate 16 03/21/18 16:38 Blood Pressure 156/91 03/21/18 16:38 O2 Sat by Pulse Oximetry 97 03/21/18 16:58 Oxygen Delivery Oxygen Delivery Nasal Cannula Recheck wound or abnormal lab - Lab Data Result diagrams: 03/21/18 15:24 03/21/18 15:24 Lab Results 03/21/18 03/21/18 03/21/18 Range/Units 15:24 15:24 16:56 WBC 11.0 (4.3-11.1) K/mcL RBC 3.06 L (3.82-4.97) M/mcL Hgb 8.6 L (11.5-15.4) g/dL Hct 28.1 L (35.3-44.9) % MCV 91.8 (83.0-100.0) fL MCH 28.1 (28.0-33.3) pg MCHC 30.6 L (31.6-35.5) g/dL RDW 16.7 H (11.5-14.5) % Plt Count 246 (140-400) K/mcL MPV 12.8 H (9.4-12.4) fL Immature Gran % 0.5 (0-4) % Seg Neutrophils % 69.9 % Lymphocytes % 22.8 % Monocytes % 4.8 % Eosinophils % 1.5 % Basophils % 0.5 % Neutrophils # 7.7 (1.6-8.9) K/mcL Lymphocytes # 2.5 (0.6-4.6) K/mcL Monocytes # 0.5 (0.0-1.3) K/mcL Eosinophils # 0.2 (0.0-0.6) K/mcL Basophils # 0.1 (0.0-0.2) K/mcL Sodium 138 (136-145) mEq/L Potassium 4.6 (3.5-5.1) mEq/L Chloride 104 (98-107) mEq/L Carbon Dioxide 27 (23-29) mEq/L BUN 102 H (6-20) mg/dL Creatinine 2.37 H (0.60-1.20) mg/dL Est GFR ( Amer) 26 L (> 60) Est GFR (Non-Af Amer) 21 L (> 60) BUN/Creatinine Ratio 43 H (6-26) Glucose 61 L (70-105) mg/dL POC Glucose 90 (70-99) mg/dL Calculated Osmolality 316 H (280-300) Calcium 8.4 L (8.6-10.3) mg/dL Total Bilirubin 0.2 L (0.3-1.0) mg/dL AST 7 L (13-39) Units/L ALT 5 L (7-52) Units/L Alkaline Phosphatase 58 (34-104) Units/L Serum Total Protein 6.9 (6.4-8.9) g/dL Albumin 2.7 L (3.5-5.7) g/dL Globulin 4.2 H (2.4-3.5) g/dL Albumin/Globulin Ratio 0.6 L (1.1-2.2) Attestation Statement - Attestation Attestation: I examined this patient and my medical decision-making was reviewed with the Resident Physician. I agree with the documented findings, disposition and treatment plan as described except to the extent set forth below. Findings consistent with acute renal failure. Patient will be started on IV fluids, admitted for further management and the setting of significant uremia and ongoing renal failure. I spent greater than 35 minutes of critical care time resuscitating this significantly ill patient suffering from uremia and renal failure. This was excluding billable procedures.
[2018-03-21 16:06] LABS: Albumin 2.7 g/dL (3.5-5.7); Albumin/Globulin Ratio 0.6 (1.1-2.2); Bilirubin,Total 0.2 mg/dL (0.3-1.0); Calcium 8.4 mg/dL (8.6-10.3); Globulin 4.2 g/dL (2.4-3.5); Potassium 4.6 mEq/L (3.5-5.1); Total Protein 6.9 g/dL (6.4-8.9)
[2018-03-21] MEDS ORDERED: Naloxone 0.4 MG/ML INJ IVP PRN (16:29)
[2018-03-21] MEDS ORDERED: Dextrose Gel 15 GM/37.5 ML TUBE PO PRN ×2 (16:29)
[2018-03-21] MEDS ORDERED: *HR* Dextrose 50 % in Water (Syg) 50 ML SYRINGE IVP PRN (16:29)
[2018-03-21] MEDS ORDERED: D5% in Water 1,000 ML IVC PRN (16:29)
--- NOTE | 2018-03-21 16:42 | Internal Med History&Physical ---
Date of Encounter: 03/21/18 Time of Encounter: 16:10 Internal Medicine - H&P: HPI Chief complaint: abnormal labs; foot ulcer Admitted From: Emergency Dept Plans for Post Hospital Care: Transfer [facility] History of present illness: Ms. Magallanes is a 58 year old female who presents to the ER from intermediate facility for abnormal labs. She had been treated and had been recovering from surgery on her right heel from diabetic foot ulcer. However, she had routine labs performed which noted worsening renal condition and concerns for uremia. She was therefore sent here where labs were obtained and exam findings were concerning for worsening ulceration of her foot. Patient denies any fevers, chills, night sweats, vomiting, or diarrhea. She is quite somnolent but she is arousable and comprehends the history. She is oriented x 3. She denies any new medications. Appetite and fluid intake have been poor she states. She denies any prior kidney problems. She denies any chest pains, SOB, or abdominal pain. Past Med Surg Social Fam HX - Past Medical History Attestation: Yes The following information was validated with the patient. Source: patient, old records reviewed Medical history: CHF, COPD, diabetes, hyperlipidemia, hypertension, other Additional medical history: DM Neuropathy. Type II Diabetic Psychiatric history: depression - Past Surgical History Surgical History: hysterectomy, other Additional surgical history: neck surgery - Social History Smoking Status: Never smoker Smokeless Tobacco Status: No Alcohol use: none Drug use: none Current living situation: [facility] Recent Out of Country Travel Within the Last 8 Weeks: No - Family History Mother Adopted: No Family Member Ethnicity: Non- Living Status: Hx Family Endocrine Disorder: Yes (diabetes type 2) Father Adopted: No Family Member Ethnicity: Non- Living Status: Hx Family Cardiac Disorders: Yes (hypertension) Hx Family Respiratory Disorders: No Hx Family Cancer: No Hx Family GI Disorders: No Hx Family Endocrine Disorder: Yes (kidney disease) Internal Medicine - H&P: Meds Atorvastatin [Lipitor] 40 mg PO HS 01/11/16 [History] Insulin ASPART [Novolog Flexpen] 6 - 14 unit SQ TID 01/11/16 [History] Latanoprost [Xalatan] 1 drop BOTH EYES HS 01/11/16 [History] Primidone [Mysoline] 25 - 50 mg PO BID PRN 01/11/16 [History] Ascorbic Acid [Vitamin C] 500 mg PO BID 03/25/16 [History] Docusate Sodium [Colace] 200 mg PO BID 03/25/16 [History] Furosemide [Lasix] 40 mg PO BID 12/06/16 [History] Fluticasone Propionate Nasal [Flonase] 2 spray NS DAILY #1 bottle 08/28/17 [Rx] Ketoconazole 2% CRM [Nizoral Cream] 1 appl TP DAILY 11/10/17 [History] Ketorolac Tromethamine 1 drop OP QID 11/10/17 [History] Losartan Potassium [Cozaar] 100 mg PO DAILY 11/10/17 [History] Tizanidine HCl 4 mg PO TID 11/20/17 [History] Calcium Carbonate [Tums] 1,000 mg PO Q4HR PRN tab.chew 11/24/17 [Rx] Carvedilol [Coreg] 6.25 mg PO BIDWM tablet 11/24/17 [Rx] Lactobacillus Acidophilus [Acidophilus] 1 each PO BID #10 capsule 11/24/17 [Rx] Gabapentin [Neurontin] 300 mg PO HS 01/17/18 [History] Ferrous Sulfate 325 mg PO BID 01/30/18 [History] Loratadine [Allergy Relief] 10 mg PO DAILY 01/30/18 [History] Pantoprazole Sodium [Protonix] 40 mg PO DAILY 01/30/18 [History] Polyethylene Glycol 3350 [MiraLAX] 17 gm PO DAILY 01/30/18 [History] Sucralfate [Carafate] 1 gm PO 0730,1630 30 Days #60 tablet 02/16/18 [Rx] Diltiazem CD (24hr) [Cardizem CD] 120 mg PO DAILY 02/20/18 [History] Insulin DETEMIR [Levemir] 30 unit SQ HS [id number] 02/26/18 [Rx] Ipratropium/Albuterol Neb [Duoneb] 3 ml IH [id number] PRN inhsol 02/26/18 [Rx] Pregabalin [Lyrica] 75 mg PO BID 30 Days #60 capsule 02/26/18 [Rx] Simethicone [Gas-X] 80 mg PO TID PRN tab.chew 02/26/18 [Rx] clonazePAM [Klonopin] 0.5 mg PO BID PRN 5 Days #10 tablet 02/26/18 [Rx] Brimonidine Tartrate/Timolol [Combigan 0.2%-0.5% Eye Drops] 1 drop BOTH EYES BID 03/07/18 [History] Cefdinir [Omnicef] 300 mg PO BID 5 Days #10 capsule 03/10/18 [Rx] 3 Allergy/AdvReac Type Severity Reaction Status Date / Time lisinopril [From Zestril] Allergy Rash Verified 01/17/18 13:50 - Constitutional Constitutional: no chills, no falls - EENT Eyes: no blurry vision, no change in vision Ears: no ear pain, no tinnitus Nose, mouth and throat: no nasal congestion, no sore throat - Cardiovascular Cardiovascular ROS IM: edema (chronic BLE), no chest pain, no dyspnea, no dyspnea on exertion, no lightheadedness, no syncope - Respiratory Respiratory: no cough, no hemoptysis, no chest congestion, no excessive phlegm production - Gastrointestinal Gastrointestinal: no abdominal pain, no diarrhea, no hematemesis, no hematochezia, no melena, no nausea, no vomiting - Genitourinary Genitourinary: no dysuria, no flank pain, no hematuria - Musculoskeletal Musculoskeletal ROS IM: arthralgias (right foot), no back pain - Integumentary Integumentary IM: non-healing lesions (right heel), no rash, no jaundice - Neurological Neurological ROS: no dizziness, no frequent falls, no headache(s), no weakness - Psychiatric Psychiatric: no anxiety, no depression - Endocrine Endocrine IM: no polydipsia, no polyuria - Constitutional Vitals: Temp Pulse Resp BP Pulse Ox 97.5 F L 80 16 156/91 100 03/21/18 14:55 03/21/18 16:38 03/21/18 16:38 03/21/18 16:38 03/21/18 16:38 General appearance: Present: cooperative, pleasant, no acute distress Exam: somnolent but easily arousable and oriented x 3 - Head Head exam: Present: atraumatic, normal inspection - Eye Eye exam: Present: EOMI, PERRL. Absent: scleral icterus - ENT ENT exam: Present: mucous membranes dry, normal exam, normal oropharynx - Neck Neck exam general surgery: Present: full ROM, supple. Absent: tenderness, nuchal rigidity, thyromegaly - Respiratory Respiratory exam: Present: CTAB. Absent: chest wall tenderness, rales, rhonchi , wheezes - Cardiovascular Cardiovascular exam: Present: distant heart sounds, RRR, +S1, +S2. Absent: diastolic murmur, systolic murmur - GI/Abdominal GI/Abdominal exam: Present: normal bowel sounds, soft. Absent: guarding, hepatomegaly, rebound, splenomegaly, tenderness - Extremities Exam Extremities exam: Present: normal capillary refill, pedal edema (2+), warm, radial pulses palpable and symmetrical. Absent: calf tenderness, tenderness Additional comments: right heel ulcer with some foul smell; kasey surrounding the circular wound - Back Exam Back exam: Absent: CVA tenderness (L), CVA tenderness (R) - Neurological Exam Neurological exam: Present: no focal deficits. Absent: alert (somewhat somnolent but easily arousable), altered Additional comments: decreased sensation feet/neuropathy - Psychiatric Psychiatric exam: Present: normal affect, normal mood - Skin Skin exam: Present: dry, warm Internal Med - H&P Results - Labs CBC & Chem 7: 03/21/18 15:24 03/21/18 15:24 Labs: Short CBC 03/21/18 Range/Units 15:24 WBC 11.0 (4.3-11.1) K/mcL Hgb 8.6 L (11.5-15.4) g/dL Hct 28.1 L (35.3-44.9) % Plt Count 246 (140-400) K/mcL Neutrophils # 7.7 (1.6-8.9) K/mcL BMP 03/21/18 15:24 Sodium 138 Potassium 4.6 Chloride 104 Carbon Dioxide 27 BUN 102 H Creatinine 2.37 H Glucose 61 L Calcium 8.4 L Liver Function 03/21/18 Range/Units 15:24 Total Bilirubin 0.2 L (0.3-1.0) mg/dL AST 7 L (13-39) Units/L ALT 5 L (7-52) Units/L Alkaline Phosphatase 58 (34-104) Units/L Albumin 2.7 L (3.5-5.7) g/dL - Assessment and plan (1) Acute kidney failure Current Visit: Yes Status: Acute Assessment and plan: 1. Will hydrate with IVF and order renal ultrasound. 2. Consult nephrology -- Dr. Ortiz notified. 3. Monitor renal function. 4. Avoid nephrotoxic drugs. Qualifiers: Acute renal failure type: unspecified Qualified Code(s): N17.9 - Acute kidney failure, unspecified (2) Encephalopathy acute Current Visit: Yes Status: Acute Assessment and plan: 1. Likely due to hypoglycemia. 2. Patient received dextrose in ER. 3. Monitor glucose levels closely and clinical status. 4. May also be due to uremia. (3) Diabetic foot ulcer Current Visit: Yes Status: Chronic Assessment and plan: 1. I reviewed most recent wound cultures. 2. Will treat with IV Zosyn and Zyvox. 3. Contact precautions for VRE. 4. Podiatry consult -- Dr. Stoll notified. Qualifiers: Diabetic foot ulcer location: heel Diabetes mellitus type: type 1 Laterality: right Non-pressure ulcer stage: with fat layer exposed Qualified Code(s): E10.621 - Type 1 diabetes mellitus with foot ulcer; L97.412 - Non-pressure chronic ulcer of right heel and midfoot with fat layer exposed (4) Diastolic heart failure Current Visit: Yes Status: Chronic Assessment and plan: 1. No acute process. 2. Monitor fluid balance and daily weights. 3. Resume appropriate home meds once meds verified. Qualifiers: Heart failure chronicity: chronic Qualified Code(s): I50.32 - Chronic diastolic (congestive) heart failure (5) DVT prophylaxis Current Visit: Yes Status: Acute Assessment and plan: 1. Heparin SQ.
[2018-03-21] MEDS ORDERED: Piperacillin/Tazobactam 3.375 GM in Water for inj. (sterile) 20 ML 20 ML IVP SCH (17:00)
[2018-03-21] MEDS: Insulin LISPRO 300 UNITS/3 ML VIAL SQ SCH (18:37)
[2018-03-21 18:42] LABS: Estimated Average Glucose 117 mg/dl; Hemoglobin A1C 5.7 %
[2018-03-21] MEDS: 0.9 % Sodium Chloride 1,000 ML IVC SCH (18:49)
[2018-03-21] MEDS: Piperacillin/Tazobactam 3.375 GM in 0.9 % Sodium Chloride Mini Bag 100 ML IVP SCH (18:49)
[2018-03-21] MEDS: *HR* Heparin 5,000 UNIT/ML VIAL SQ SCH (22:36)
[2018-03-22] MEDS: *HR* Heparin 5,000 UNIT/ML VIAL SQ SCH ×3 (06:00→20:24)
[2018-03-22] MEDS: Piperacillin/Tazobactam 3.375 GM in 0.9 % Sodium Chloride Mini Bag 100 ML IVP SCH (07:54)
[2018-03-22] MEDS ORDERED: Piperacillin/Tazobactam 3.375 GM in 0.9 % Sodium Chloride Mini Bag 100 ML IVPB SCH (08:00)
[2018-03-22] MEDS: Insulin LISPRO 300 UNITS/3 ML VIAL SQ SCH ×4 (08:44→20:27)
[2018-03-22] MEDS: Linezolid 600 MG TABLET PO SCH ×2 (08:45→20:20)
--- NOTE | 2018-03-22 09:34 | Nephrology Consult Note ---
Date of Encounter: 03/22/18 Time of Encounter: 09:24 Assessment and Plan (1) Acute kidney failure Current Visit: Yes Status: Acute Scr is 2.37 down from 2.47 yesterday. GFR is 21. No known kidney disease at baseline, recent labs this month reflect normal Scr and GFR. Avoid nephrotoxins and renal dose all medications. Strict I/O. Encouraged PO intake. Serum and urine studies ordered. Qualifiers: Acute renal failure type: unspecified Qualified Code(s): N17.9 - Acute kidney failure, unspecified (2) Heel ulcer Current Visit: Yes Status: Acute Per primary. Suggest consulting ID for antibiotic management since she was just on their service last month. Qualifiers: Laterality: right Non-pressure ulcer stage: unspecified non-pressure ulcer stage Qualified Code(s): L97.419 - Non-pressure chronic ulcer of right heel and midfoot with unspecified severity History of Present Illness - Reason for Consult Consult date: 03/22/18 Acute Kidney Injury - Chief Complaint abnormal labs - History of Present Illness Ms. aMgallanes is a 58 year old female that resides in an [facility]. She presented to ED under advisement of Dr. Stoll for worsening renal function. She has recently completed 14 days of Zosyn and Zyvox. ID has seen patient in the past for wound to RLE. PMH: CHF, COPD, diabetes, hyperlipidemia, hypertension. We were consulted for DOROTHEA. Scr is 2.37 today as recently as 03/10/18 Scr was 1.17. GFR was greater than 60 on 02/23/18 it is 21 today. Per old records she has never seen a shield installer in the past or been told she has kidney disease. No FH of kidney disease or known HD. Home medications were reviewed and only nephrotoxic medication is home PO lasix. Denies any chronic use of NSAIDS. Family member at bedside states she has had poor PO intake for the past week or two. DOROTHEA workup has been ordered. Retroperitoneal US completed and was negative. Serum and urine studies ordered. Past Med Surg Social Fam HX - Past Medical History Medical history: CHF, COPD, diabetes, hyperlipidemia, hypertension, other Additional medical history: DM Neuropathy. Type II Diabetic Psychiatric history: depression - Past Surgical History Surgical History: hysterectomy, other Additional surgical history: neck surgery - Social History Smoking Status: Never smoker Smokeless Tobacco Status: No Alcohol use: none Drug use: none - Family History Mother Adopted: No Family Member Ethnicity: Non- Living Status: Hx Family Endocrine Disorder: Yes (diabetes type 2) Father Adopted: No Family Member Ethnicity: Non- Living Status: Hx Family Cardiac Disorders: Yes (hypertension) Hx Family Respiratory Disorders: No Hx Family Cancer: No Hx Family GI Disorders: No Hx Family Endocrine Disorder: Yes (kidney disease) Medications and Allergies Atorvastatin [Lipitor] 40 mg PO HS 01/11/16 [History] Insulin ASPART [Novolog Flexpen] 6 - 14 unit SQ TID 01/11/16 [History] Latanoprost [Xalatan] 1 drop BOTH EYES HS 01/11/16 [History] Primidone [Mysoline] 50 mg PO BID PRN 01/11/16 [History] Ascorbic Acid [Vitamin C] 500 mg PO BID 03/25/16 [History] Docusate Sodium [Colace] 200 mg PO BID 03/25/16 [History] Furosemide [Lasix] 40 mg PO BID 12/06/16 [History] Fluticasone Propionate Nasal [Flonase] 2 spray NS DAILY #1 bottle 08/28/17 [Rx] Ketoconazole 2% CRM [Nizoral Cream] 1 appl TP DAILY 11/10/17 [History] Ketorolac Tromethamine 1 drop OP QID 11/10/17 [History] Losartan Potassium [Cozaar] 100 mg PO DAILY 11/10/17 [History] Tizanidine HCl 4 mg PO TID 11/20/17 [History] Calcium Carbonate [Tums] 1,000 mg PO Q4HR PRN tab.chew 11/24/17 [Rx] Carvedilol [Coreg] 6.25 mg PO BIDWM tablet 11/24/17 [Rx] Lactobacillus Acidophilus [Acidophilus] 1 each PO BID #10 capsule 11/24/17 [Rx] Gabapentin [Neurontin] 300 mg PO HS 01/17/18 [History] Ferrous Sulfate 325 mg PO BID 01/30/18 [History] Loratadine [Allergy Relief] 10 mg PO DAILY 01/30/18 [History] Pantoprazole Sodium [Protonix] 40 mg PO DAILY 01/30/18 [History] Polyethylene Glycol 3350 [MiraLAX] 17 gm PO DAILY 01/30/18 [History] Sucralfate [Carafate] 1 gm PO 0730,1630 30 Days #60 tablet 02/16/18 [Rx] Diltiazem CD (24hr) [Cardizem CD] 120 mg PO DAILY 02/20/18 [History] Insulin DETEMIR [Levemir] 30 unit SQ HS [id number] 02/26/18 [Rx] Ipratropium/Albuterol Neb [Duoneb] 3 ml IH [id number] PRN inhsol 02/26/18 [Rx] Pregabalin [Lyrica] 75 mg PO BID 30 Days #60 capsule 02/26/18 [Rx] Simethicone [Gas-X] 80 mg PO TID PRN tab.chew 02/26/18 [Rx] clonazePAM [Klonopin] 0.5 mg PO BID PRN 5 Days #10 tablet 02/26/18 [Rx] Brimonidine Tartrate/Timolol [Combigan 0.2%-0.5% Eye Drops] 1 drop BOTH EYES BID 03/07/18 [History] 3 Allergy/AdvReac Type Severity Reaction Status Date / Time lisinopril [From Zestril] Allergy Rash Verified 01/17/18 13:50 Review of Systems Constitutional: no chills, no fatigue, no fever(s) Cardiovascular: no chest pain, no edema Respiratory: no dyspnea Gastrointestinal: nausea, no diarrhea, no loose stools, no vomiting Exam - Vital Signs Vital signs: Initial Vital Signs Temp Pulse Resp BP Pulse Ox 97.5 F L 63 16 107/67 99 03/21/18 14:55 03/21/18 14:55 03/21/18 14:55 03/21/18 14:55 03/21/18 14:55 Vital Signs - Last 8 Hours Temp Pulse Resp BP Pulse Ox 03/22/18 08:00 98.3 F 71 16 102/59 92 03/22/18 03:56 97.7 F 71 20 112/64 93 Intake and Output 03/21/18 03/22/18 03/22/18 23:59 07:59 15:59 Intake Total 1000 / 1000 360 / 360 Balance 1000 / 1000 360 / 360 Intake: IV Fluids 0 / 0 0.9 % Sodium Chloride 1,000 ML 0 / 0 @ 100 mls/hr IVC .Q10H DONNA Rx#: [id number] Zosyn 3.375 GM In 0.9 % Sodium 0 / 0 Chloride (Mini-Bag +) 100 ML @ 25 mls/hr IVP Q8H DONNA Rx#: [id number] Zyvox Premix 600mg/300mL 600 mg 0 / 0 In 300 ml @ 150 mls/hr IVPB Q12HR DONNA Rx#:[id number] Oral 1000 / 1000 360 / 360 Other: Meal Breakfast Percent of Meal Consumed 75% # Urine Diapers 1 Weight 130.7 kg Blood Glucose* 132 155 Patient Weight 03/22/18 23:59 Weight 130.7 kg Results - Lab Results 03/21/18 15:24 03/21/18 15:24 Most recent lab results Calcium 8.4 mg/dL (8.6-10.3) L 03/21/18 15:24 Consult Discharge Plan - Plan Referrals: Jc Tsai MD [Primary Care Provider] -
[2018-03-22] MEDS: Piperacillin/Tazobactam 3.375 GM in 0.9 % Sodium Chloride Mini Bag 100 ML IVPB SCH ×2 (12:29→19:57)
[2018-03-22 12:55] LABS: Basophils # 0.1 K/mcL (0.0-0.2); Basophils % 0.4 %; Eosinophils # 0.2 K/mcL (0.0-0.6); Eosinophils % 1.3 %; Hematocrit 29.5 % (35.3-44.9); Immature Granulocytes % 0.7 % (0-4); Lymphocytes # 1.9 K/mcL (0.6-4.6); Lymphocytes % 15.7 %; Mean Corpuscular HGB Conc 30.5 g/dL (31.6-35.5); Mean Corpuscular Hemoglobin 28.1 pg (28.0-33.3); Mean Corpuscular Volume 92.2 fL (83.0-100.0); Mean Platelet Volume 12.7 fL (9.4-12.4); Monocytes # 0.5 K/mcL (0.0-1.3); Neutrophils # 9.4 K/mcL (1.6-8.9); Platelet Count 250 K/mcL (140-400); Red Cell Distribution Width 16.5 % (11.5-14.5); Segmented Neutrophils % 77.9 %
[2018-03-22 13:00] LABS: INR 1.1; Prothrombin Time 12.9 Seconds (9.4-12.1)
[2018-03-22 13:03] LABS: Activated Partial Thrombo Time 29.9 Seconds (26.0-36.0)
[2018-03-22 13:27] LABS: Albumin 2.9 g/dL (3.5-5.7); Albumin/Globulin Ratio 0.7 (1.1-2.2); Bilirubin,Total 0.2 mg/dL (0.3-1.0); Calcium 8.5 mg/dL (8.6-10.3); Globulin 4.3 g/dL (2.4-3.5); Magnesium 1.7 mg/dL (1.6-2.6); Potassium 4.6 mEq/L (3.5-5.1); Total Protein 7.2 g/dL (6.4-8.9)
[2018-03-22 14:24] LABS: Protein/Creatinine Ratio,Urine 1.63 mg/mg (0.00-0.20)
[2018-03-22 14:30] LABS: Bilirubin,Urine Negative (Negative); Blood,Urine Small (Negative); Clarity,Urine Turbid (Clear); Color,Urine Yellow (Yellow); Glucose,Urine (UA) Normal (Normal); Ketones,Urine Negative (Negative); Leukocyte Esterase,Urine Large (Negative); Nitrite,Urine Negative (Negative); Protein,Urine 100 mg/dL (Neg-Trace); Specific Gravity,Urine 1.011 (1.010-1.025); Urobilinogen,Urine Normal (Normal)
[2018-03-22 15:32] LABS: Renal Epithelial Cells,Urine Few per hpf (None-Few); Squamous Epithelial Cell,Urine Few per lpf (None-Few); Transitional Epi Cells,Urine Few per hpf (None-Few)
[2018-03-22 15:33] LABS: WBC,Urine TNTC per hpf (0-3)
[2018-03-22 15:34] LABS: Bacteria,Urine Moderate per hpf (None-Few); RBC,Urine 0-3 per hpf (0-3)
[2018-03-22] MEDS ORDERED: Ipratropium/Albuterol Neb 3 ML IH PRN (18:36)
[2018-03-22] MEDS ORDERED: Simethicone 80 MG TAB.CHEW PO PRN (18:36)
[2018-03-22] MEDS ORDERED: clonazePAM 0.5 MG TABLET PO PRN (18:36)
[2018-03-22] MEDS ORDERED: Primidone 50 MG TABLET PO PRN (18:36)
--- NOTE | 2018-03-22 18:56 | Internal Med Progress Note ---
Hospitalist Progress Note - Encounter Date of Encounter: 03/22/18 Time of Encounter: 11:00 - Subjective Interval History: Patient more alert and oriented this morning Patient's BUN 99 today with a creatinine 2.15; nephrology consulted - Exam Vitals: Temp Pulse Resp BP Pulse Ox 98.0 F 80 18 110/70 94 03/22/18 16:28 03/22/18 16:28 03/22/18 16:28 03/22/18 16:28 03/22/18 16:28 Exam: Gen.: Nonacute distress, alert and oriented 3 ENT: Mucosal membranes moist Respiratory: Lungs are clear to auscultation bilaterally without any wheezing rhonchi or rales Cardiovascular: Normal S1 and S2 regular rate rhythm no murmurs rubs or gallops Abdomen: Soft, nontender and nondistended with positive bowel sounds Extremities: No lower extremity edema Skin: Normal color - Assessment and Plan (1) Acute kidney failure Current Visit: Yes Status: Acute Assessment and Plan: Serum creatinine 2.37->2.15 GFR 21-> 29 Patient with a BUN of 102->99 Nephrology consulted and appreciate recommendations (2) Diastolic heart failure Current Visit: Yes Status: Chronic Assessment and Plan: Continue home dose of Lasix 40 mg twice daily (3) Encephalopathy acute Current Visit: Yes Status: Acute Assessment and Plan: Resolved; continue to monitor (4) Diabetic foot ulcer Current Visit: Yes Status: Chronic Assessment and Plan: Podiatry consulted -- Dr. Stoll notified. (5) DVT prophylaxis Current Visit: Yes Status: Acute Assessment and Plan: Subcutaneous heparin - Time Spent with Patient Total time spent is greater than 50% in coordination of care (as documented) at patient's floor/unit and/or counseling patient: Internal Medicine: Result - Labs CBC & Chem 7: 03/22/18 04:00 03/22/18 04:00 Labs: Short CBC 03/22/18 Range/Units 04:00 WBC 12.1 H (4.3-11.1) K/mcL Hgb 9.0 L (11.5-15.4) g/dL Hct 29.5 L (35.3-44.9) % Plt Count 250 (140-400) K/mcL Neutrophils # 9.4 H (1.6-8.9) K/mcL BMP 03/22/18 04:00 Sodium 138 Potassium 4.6 Chloride 101 Carbon Dioxide 28 BUN 99 H Creatinine 2.15 H Glucose 132 H Calcium 8.5 L Liver Function 03/22/18 Range/Units 04:00 Total Bilirubin 0.2 L (0.3-1.0) mg/dL AST 8 L (13-39) Units/L ALT 6 L (7-52) Units/L Alkaline Phosphatase 66 (34-104) Units/L Albumin 2.9 L (3.5-5.7) g/dL Urine 03/22/18 Range/Units 13:50 Urine Color Yellow (Yellow) Urine Clarity Turbid A (Clear) Urine pH 6.0 (5.0-8.0) pH Units Ur Specific [place] 1.011 (1.010-1.025) Urine Protein 100 H (Neg-Trace) mg/dL Urine Glucose (UA) Normal (Normal) mg/dL - ABG Interpretation ABG results: PT/INR, D-dimer PT 12.9 Seconds (9.4-12.1) H 03/22/18 04:00 Consult Discharge Plan - Plan Referrals: Jc Tsai MD [Primary Care Provider] - (1) Acute kidney failure Qualifiers: Acute renal failure type: unspecified Qualified Code(s): N17.9 - Acute kidney failure, unspecified (2) Diastolic heart failure Qualifiers: Heart failure chronicity: chronic Qualified Code(s): I50.32 - Chronic diastolic (congestive) heart failure (4) Diabetic foot ulcer Qualifiers: Diabetic foot ulcer location: heel Diabetes mellitus type: type 1 Laterality : right Non-pressure ulcer stage: with fat layer exposed Qualified Code(s): E10.621 - Type 1 diabetes mellitus with foot ulcer; L97.412 - Non-pressure chronic ulcer of right heel and midfoot with fat layer exposed
[2018-03-22] MEDS: Ascorbic Acid 500 MG TABLET PO SCH (19:58)
[2018-03-22] MEDS: Gabapentin 300 MG CAPSULE PO SCH (19:59)
[2018-03-22] MEDS: tiZANidine 4 MG TABLET PO SCH (19:59)
[2018-03-22] MEDS: Pregabalin 75 MG CAPSULE PO SCH (19:59)
[2018-03-22] MEDS: Lactobacillus 1 EACH CAP.SPRINK PO SCH (19:59)
[2018-03-22] MEDS: Insulin DETEMIR 100 UNIT/ML X5UNITS SQ SCH (20:25)
[2018-03-22] MEDS: Latanoprost 2.5 ML BOTTLE BOTH EYES SCH (20:49)
[2018-03-22] MEDS ORDERED: (Brimonidine Tartrate/Timolol [Combigan 0.2%-0.5% Eye) OP SCH (21:00)
[2018-03-22] MEDS: Furosemide 40 MG TABLET PO SCH (21:00)
[2018-03-22] MEDS ORDERED: 0.9 % Sodium Chloride 1,000 ML IVC SCH (23:45)
[2018-03-23] MEDS: Piperacillin/Tazobactam 3.375 GM in 0.9 % Sodium Chloride Mini Bag 100 ML IVPB SCH ×2 (04:30→13:14)
[2018-03-23] MEDS: 0.9 % Sodium Chloride 1,000 ML IVC SCH (04:41)
[2018-03-23 04:49] LABS: Basophils # 0.1 K/mcL (0.0-0.2); Basophils % 0.7 %; Eosinophils # 0.2 K/mcL (0.0-0.6); Eosinophils % 1.9 %; Hematocrit 26.8 % (35.3-44.9); Immature Granulocytes % 0.3 % (0-4); Lymphocytes # 2.4 K/mcL (0.6-4.6); Lymphocytes % 27.1 %; Mean Corpuscular HGB Conc 29.9 g/dL (31.6-35.5); Mean Corpuscular Hemoglobin 27.4 pg (28.0-33.3); Mean Corpuscular Volume 91.8 fL (83.0-100.0); Mean Platelet Volume 12.7 fL (9.4-12.4); Monocytes # 0.5 K/mcL (0.0-1.3); Monocytes % 5.4 %; Neutrophils # 5.7 K/mcL (1.6-8.9); Platelet Count 234 K/mcL (140-400); Red Blood Count 2.92 M/mcL (3.82-4.97); Red Cell Distribution Width 16.2 % (11.5-14.5); Segmented Neutrophils % 64.6 %
[2018-03-23 05:00] LABS: Calcium 8.4 mg/dL (8.6-10.3); Potassium 4.5 mEq/L (3.5-5.1); Uric Acid 10.3 mg/dL (2.3-7.6)
[2018-03-23] MEDS: *HR* Heparin 5,000 UNIT/ML VIAL SQ SCH ×3 (06:04→23:47)
[2018-03-23] MEDS: Linezolid 600 MG TABLET PO SCH (06:05)
[2018-03-23] MEDS: Sucralfate 1 GM TABLET PO SCH ×2 (06:05→16:51)
--- NOTE | 2018-03-23 08:37 | Internal Med Progress Note ---
Hospitalist Progress Note - Encounter Date of Encounter: 03/23/18 Time of Encounter: 11:00 - Subjective Interval History: Patient presented with acute renal failure which is improving. - Exam Vitals: Temp Pulse Resp BP Pulse Ox 97.9 F 79 17 140/68 97 03/23/18 07:44 03/23/18 07:44 03/23/18 07:44 03/23/18 07:44 03/23/18 07:44 Exam: Gen.: Nonacute distress, alert and oriented 3 ENT: Mucosal membranes moist Respiratory: Lungs are clear to auscultation bilaterally without any wheezing rhonchi or rales Cardiovascular: Normal S1 and S2 regular rate rhythm no murmurs rubs or gallops Abdomen: Soft, nontender and nondistended with positive bowel sounds Extremities: No lower extremity edema Skin: Normal color - Assessment and Plan (1) Acute kidney failure Current Visit: Yes Status: Acute Assessment and Plan: Serum creatinine 2.37->2.15->2.00 GFR 21-> 29->31 Patient with a BUN of 102->99->94 Nephrology consulted and appreciate recommendations (2) Diabetic foot ulcer Current Visit: Yes Status: Chronic Assessment and Plan: Podiatry consulted and appreciate recommendations Infectious disease also consulted with recommendations to discontinue all IV antibiotics. (3) Diastolic heart failure Current Visit: Yes Status: Chronic Assessment and Plan: Stable; continue home dose of Lasix 40 mg twice daily (4) Encephalopathy acute Current Visit: Yes Status: Acute Assessment and Plan: Resolved; continue to monitor DVT Prophylaxis: Subcutaneous heparin - Time Spent with Patient Total time spent is greater than 50% in coordination of care (as documented) at patient's floor/unit and/or counseling patient: Internal Medicine: Result - Labs CBC & Chem 7: 03/23/18 04:00 03/23/18 04:00 Labs: Short CBC 03/22/18 03/23/18 Range/Units 04:00 04:00 WBC 12.1 H 8.8 (4.3-11.1) K/mcL Hgb 9.0 L 8.0 L (11.5-15.4) g/dL Hct 29.5 L 26.8 L (35.3-44.9) % Plt Count 250 234 (140-400) K/mcL Neutrophils # 9.4 H 5.7 (1.6-8.9) K/mcL BMP 03/22/18 03/23/18 04:00 04:00 Sodium 138 141 Potassium 4.6 4.5 Chloride 101 106 Carbon Dioxide 28 28 BUN 99 H 94 H Creatinine 2.15 H 2.00 H Glucose 132 H 130 H Calcium 8.5 L 8.4 L Liver Function 03/22/18 Range/Units 04:00 Total Bilirubin 0.2 L (0.3-1.0) mg/dL AST 8 L (13-39) Units/L ALT 6 L (7-52) Units/L Alkaline Phosphatase 66 (34-104) Units/L Albumin 2.9 L (3.5-5.7) g/dL Urine 03/22/18 Range/Units 13:50 Urine Color Yellow (Yellow) Urine Clarity Turbid A (Clear) Urine pH 6.0 (5.0-8.0) pH Units Ur Specific [place] 1.011 (1.010-1.025) Urine Protein 100 H (Neg-Trace) mg/dL Urine Glucose (UA) Normal (Normal) mg/dL - ABG Interpretation ABG results: PT/INR, D-dimer PT 12.9 Seconds (9.4-12.1) H 03/22/18 04:00 Consult Discharge Plan - Plan Referrals: Jc Tsai MD [Primary Care Provider] - (1) Acute kidney failure Qualifiers: Acute renal failure type: unspecified Qualified Code(s): N17.9 - Acute kidney failure, unspecified (2) Diabetic foot ulcer Qualifiers: Diabetic foot ulcer location: heel Diabetes mellitus type: type 1 Laterality : right Non-pressure ulcer stage: with fat layer exposed Qualified Code(s): E10.621 - Type 1 diabetes mellitus with foot ulcer; L97.412 - Non-pressure chronic ulcer of right heel and midfoot with fat layer exposed (3) Diastolic heart failure Qualifiers: Heart failure chronicity: chronic Qualified Code(s): I50.32 - Chronic diastolic (congestive) heart failure
[2018-03-23] MEDS: Insulin LISPRO 300 UNITS/3 ML VIAL SQ SCH ×4 (09:32→23:40)
[2018-03-23] MEDS: tiZANidine 4 MG TABLET PO SCH ×3 (10:28→23:47)
[2018-03-23] MEDS: Furosemide 40 MG TABLET PO SCH ×2 (10:28→16:51)
[2018-03-23] MEDS: Lactobacillus 1 EACH CAP.SPRINK PO SCH ×2 (10:28→23:45)
[2018-03-23] MEDS: Ascorbic Acid 500 MG TABLET PO SCH ×2 (10:28→23:47)
[2018-03-23] MEDS: Pregabalin 75 MG CAPSULE PO SCH ×2 (10:29→23:45)
[2018-03-23] MEDS: Loratadine 10 MG TABLET PO SCH (10:29)
[2018-03-23] MEDS: Diltiazem CD (24hr) 120 MG CAPSULE PO SCH (10:29)
--- NOTE | 2018-03-23 10:30 | Nephrology Progress Note ---
Date of Encounter: 03/23/18 Time of Encounter: 10:27 - Assessment and Plan (1) Acute kidney failure Current Visit: Yes Status: Acute Scr 2 down from 2.15. GFR is 26. No known kidney disease at baseline, recent labs this month reflect normal Scr and GFR. Avoid nephrotoxins and renal dose all medications. Strict I/O. Encouraged PO intake. Would suggest patient following up with [facility] in 4-6 weeks. Qualifiers: Acute renal failure type: unspecified Qualified Code(s): N17.9 - Acute kidney failure, unspecified (2) Heel ulcer Current Visit: Yes Status: Acute Per primary. Suggest consulting ID for antibiotic management since she was just on their service last month. Qualifiers: Laterality: right Non-pressure ulcer stage: unspecified non-pressure ulcer stage Qualified Code(s): L97.419 - Non-pressure chronic ulcer of right heel and midfoot with unspecified severity Subjective Principal diagnosis: worsening renal function Interval history: Pt seen and examined, doing well. Objective - Vital Signs Vital signs: Vital Signs Temp Pulse Resp BP Pulse Ox 03/23/18 07:44 97.9 F 79 17 140/68 97 03/23/18 05:20 98.2 F 69 16 127/73 98 03/23/18 01:05 97.5 F L 76 15 118/74 98 03/22/18 19:15 98.2 F 83 15 123/58 96 03/22/18 16:28 98.0 F 80 18 110/70 94 03/22/18 11:46 97.8 F 73 19 106/62 95 Intake and Output 03/22/18 03/23/18 03/23/18 23:59 07:59 15:59 Intake Total 1440 / 1440 612.1 / 612.1 Balance 1440 / 1440 612.1 / 612.1 Intake: IV Fluids 1200 / 1200 612.1 / 612.1 0.9 % Sodium Chloride 1,000 ML 1000 / 1000 560 / 560 @ 100 mls/hr IVC .Q10H DONNA Rx#: [id number] Zosyn 3.375 GM In 0.9 % Sodium 200 / 200 52.1 / 52.1 Chloride (Mini-Bag +) 100 ML @ 25 mls/hr IVPB Q8H DONNA Rx#: [id number] Oral 240 / 240 Other: Meal Dinner Percent of Meal Consumed 45% Stool Size Moderate Moderate Stool Consistency soft soft Stool Characteristics Normal for Patient Stool Color Brown Brown # Urine Diapers 1 1 # Bowel Movements 1 Weight 131.4 kg Blood Glucose* 144 111 Patient Weight 03/23/18 23:59 Weight 131.4 kg - General Appearance General appearance: Present: well-developed, well-nourished, obese EENT: Present: ATNC, hearing intact, vision intact Neck: Present: supple Respiratory: Present: clear Cardiology: Present: edema (Trace bilateral lower extremity edema noted.), normal S1, normal S2 Gastrointestinal: Present: normoactive bowel sounds, no tenderness, no guarding Integumentary: Present: no rash, warm and dry Neurologic: Present: alert and oriented x3 Psychiatric: Present: mood/affect appropriate, cooperative - Lab 03/23/18 04:00 03/23/18 04:00 Most recent lab results Calcium 8.4 mg/dL (8.6-10.3) L 03/23/18 04:00 Magnesium 1.7 mg/dL (1.6-2.6) 03/22/18 04:00 Urine Creatinine 46 mg/dL 03/22/18 13:50 Urine Sodium 29.3 mEq/L 03/22/18 13:50 Urine Total Protein 75 mg/dL (1-14) H 03/22/18 13:50 Consult Discharge Plan - Plan Referrals: Jc Tsai MD [Primary Care Provider] -
--- NOTE | 2018-03-23 12:23 | Infectious Disease Consult ---
Date of Encounter: 03/23/18 Time of Encounter: 11:46 Assessment and Plan (1) Diabetic foot ulcer Status: Chronic Assessment and plan: Location: Right heel. Chronic, non-healing. Previous imaging negative for OM. Previous cultures positive for MDR K. pneumoniae, P. penneri, and VRE. Clinically, the wound does not appear infected. The patient has no sepsis criteria. Case discussed with Dr. Stoll who agrees that the wound does not appear infected. Discontinue antibiotics and observe. Wound care per podiatry. Qualifiers: Diabetic foot ulcer location: heel Diabetes mellitus type: type 1 Laterality: right Non-pressure ulcer stage: with fat layer exposed Qualified Code(s): E10.621 - Type 1 diabetes mellitus with foot ulcer; L97.412 - Non-pressure chronic ulcer of right heel and midfoot with fat layer exposed (2) Asymptomatic bacteriuria Status: Acute Assessment and plan: Urine culture positive for GNR x 2. Clinically, the patient has no symptoms, so no indication to treat. (3) Acute kidney failure Status: Acute Assessment and plan: Serum creatinine elevated at 2.37 on admission. Etiology unclear. Nephrology consulted and following. Qualifiers: Acute renal failure type: unspecified Qualified Code(s): N17.9 - Acute kidney failure, unspecified (4) Anemia Status: Chronic Qualifiers: Anemia type: unspecified type Qualified Code(s): D64.9 - Anemia, unspecified (5) REGINALD treated with BiPAP Status: Chronic (6) Hyperkalemia Status: Resolved Assessment and plan: Potassium 6 at the ECF. Down to 4.6 on arrival to the ED. Resolved. (7) Type 2 diabetes mellitus Status: Chronic Assessment and plan: Recommend aggressive glucose monitoring and control to promote wound healing and prevent re-infection. Management per the primary team. Qualifiers: Diabetes mellitus skilled nursing insulin use: with skilled nursing use Diabetes mellitus complication status: with skin complications Diabetes mellitus complication detail: with foot ulcer Qualified Code(s): E11.621 - Type 2 diabetes mellitus with foot ulcer; L97.509 - Non-pressure chronic ulcer of other part of unspecified foot with unspecified severity; Z79.4 - intermediate ( current) use of insulin (8) GERD (gastroesophageal reflux disease) Status: Acute Qualifiers: Esophagitis presence: esophagitis presence not specified Qualified Code(s) : K21.9 - Gastro-esophageal reflux disease without esophagitis Infectious Disease HPI - Data of Consult Patient: known to practice within the last 3 years Consult date: 03/23/18 Requesting Physician: Casimiro Becker Primary Care Provider: Jc Tsai MD - Consult Narrative Reason for consult: Right heel ulcer History of present illness: Ms. Magallanes is a 58 year old female with a past medical history of COPD, DM, HLD, HTN, CHF, and chronic right heel ulcer. The patient was admitted to the hospital 03/21/18 for hyperkalemia and DOROTHEA. Her consulted March 23 for further recommendations for right heel ulcer. Briefly, the patient is a 58-year-old female with a past medical history as stated above. The patient is noted to the ID services were consulted on her case back in January when she was admitted to the hospital. At that time, she had pneumonia and cellulitis of the right foot secondary to the chronic nonhealing ulcer to her right heel. Wound cultures were obtained that grew out multidrug resistant Klebsiella pneumoniae, Proteus urinary, and VRE. She received a 2 week course of IV Zosyn and completed 14 days of Zyvox and her symptoms improved clinically. She is continue to follow with the wound clinic since discharge and recently had a skin graft placed. She somewhat poor historian regarding the events leading up to hospitalization, therefore, most of the information is obtained from medical record. Apparently, she had routine labs that showed an acute kidney injury with hyperkalemia. She was advised to come to the ER for evaluation. Upon arrival to the ER, the patient was afebrile hemodynamically stable. She will white blood cell count of 11 with serum creatinine of 2.37. Blood cultures were obtained 2 sets are no growth to date. She was started empirically on Zosyn and Zyvox based on previous cultures. She was admitted to the hospital for further evaluation. Since admission, the patient has remained afebrile hemodynamically stable. Her white blood cell count is normal. She had a urinalysis that was positive for pyuria with a culture growing 2 gram-negative rods. She is asymptomatic. MRSA nasal screen was negative. CK level was normal. 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 Currently, the patient is on oral Zyvox and IV Zosyn. We have been asked to evaluate and make further recommendations. During my exam today, the patient endorses a history as stated above. She tells she was in her usual state of health until she came to the hospital. She denies any fevers or chills or rigors. Denies any headache or neck pain. Denies any congestion, earache, or sore throat. She denies any chest pain, shortness of breath, cough. She denies any nausea, vomiting, diarrhea, or constipation. She denies abdominal pain, urinary complaints, appetite changes. She denies any pain to surgical site and denies any redness, drainage, or foul odor. She continues from Dr. Stoll in the wound clinic and had some sort of graft placed recently. She denies any oral thrush or new skin lesions. Currently, the patient lives at a local extended care facility where she is receiving wound care. She denies any tobacco, alcohol, or illicit drug use. She denies any chronic infectious diseases. She denies any recent travel outside the [facility]. CC: Casimiro Becker Past Med Surg Social Fam HX - Past Medical History Attestation: Yes The following information was validated with the patient. Source: patient, old records reviewed, nursing notes reviewed Medical history: CHF, COPD, diabetes, hyperlipidemia, hypertension, other Additional medical history: DM Neuropathy. Type II Diabetic Psychiatric history: depression - Past Surgical History Surgical History: hysterectomy, other Additional surgical history: neck surgery - Social History Smoking Status: Never smoker Smokeless Tobacco Status: No Alcohol use: none Drug use: none Occupational status: unemployed Current living situation: [facility] Activity Level: Uses cane/walker Recent Out of Country Travel Within the Last 8 Weeks: No Exposure or Possible Exposure to Illness During Travel: No - Family History Mother Adopted: No Family Member Ethnicity: Non- Living Status: Hx Family Endocrine Disorder: Yes (diabetes type 2) Father Adopted: No Family Member Ethnicity: Non- Living Status: Hx Family Cardiac Disorders: Yes (hypertension) Hx Family Respiratory Disorders: No Hx Family Cancer: No Hx Family GI Disorders: No Hx Family Endocrine Disorder: Yes (kidney disease) Infectious Disease-CN:Meds Atorvastatin [Lipitor] 40 mg PO HS 01/11/16 [History] Insulin ASPART [Novolog Flexpen] 6 - 14 unit SQ TID 01/11/16 [History] Latanoprost [Xalatan] 1 drop BOTH EYES HS 01/11/16 [History] Primidone [Mysoline] 50 mg PO BID PRN 01/11/16 [History] Ascorbic Acid [Vitamin C] 500 mg PO BID 03/25/16 [History] Docusate Sodium [Colace] 200 mg PO BID 03/25/16 [History] Furosemide [Lasix] 40 mg PO BID 12/06/16 [History] Fluticasone Propionate Nasal [Flonase] 2 spray NS DAILY #1 bottle 08/28/17 [Rx] Ketoconazole 2% CRM [Nizoral Cream] 1 appl TP DAILY 11/10/17 [History] Ketorolac Tromethamine 1 drop OP QID 11/10/17 [History] Losartan Potassium [Cozaar] 100 mg PO DAILY 11/10/17 [History] Tizanidine HCl 4 mg PO TID 11/20/17 [History] Calcium Carbonate [Tums] 1,000 mg PO Q4HR PRN tab.chew 11/24/17 [Rx] Carvedilol [Coreg] 6.25 mg PO BIDWM tablet 11/24/17 [Rx] Lactobacillus Acidophilus [Acidophilus] 1 each PO BID #10 capsule 11/24/17 [Rx] Gabapentin [Neurontin] 300 mg PO HS 01/17/18 [History] Ferrous Sulfate 325 mg PO BID 01/30/18 [History] Loratadine [Allergy Relief] 10 mg PO DAILY 01/30/18 [History] Pantoprazole Sodium [Protonix] 40 mg PO DAILY 01/30/18 [History] Polyethylene Glycol 3350 [MiraLAX] 17 gm PO DAILY 01/30/18 [History] Sucralfate [Carafate] 1 gm PO 0730,1630 30 Days #60 tablet 02/16/18 [Rx] Diltiazem CD (24hr) [Cardizem CD] 120 mg PO DAILY 02/20/18 [History] Insulin DETEMIR [Levemir] 30 unit SQ HS [id number] 02/26/18 [Rx] Ipratropium/Albuterol Neb [Duoneb] 3 ml IH [id number] PRN inhsol 02/26/18 [Rx] Pregabalin [Lyrica] 75 mg PO BID 30 Days #60 capsule 02/26/18 [Rx] Simethicone [Gas-X] 80 mg PO TID PRN tab.chew 02/26/18 [Rx] clonazePAM [Klonopin] 0.5 mg PO BID PRN 5 Days #10 tablet 02/26/18 [Rx] Brimonidine Tartrate/Timolol [Combigan 0.2%-0.5% Eye Drops] 1 drop BOTH EYES BID 03/07/18 [History] 3 Allergy/AdvReac Type Severity Reaction Status Date / Time lisinopril [From Zestril] Allergy Rash Verified 01/17/18 13:50 All systems: reviewed and no additional remarkable complaints except as stated Exam - Constitutional Vitals: Temp Pulse Resp BP Pulse Ox 97.5 F L 78 18 141/82 90 03/23/18 11:41 03/23/18 11:41 03/23/18 11:41 03/23/18 11:41 03/23/18 11:41 General appearance: cooperative, no acute distress, obese - Head Head exam: Present: atraumatic, normal inspection, normocephalic - Eye Eye exam: Present: EOMI, normal appearance, PERRL Pupils: Present: normal accommodation - ENT ENT exam: Present: mucous membranes moist - Neck Neck exam: Present: normal inspection - Respiratory Respiratory exam: Present: CTAB. Absent: rales, respiratory distress, rhonchi, wheezes - Cardiovascular Cardiovascular exam: Present: RRR, +S1, +S2 - GI/Abdominal GI/Abdominal exam: Present: distended (obese), normal bowel sounds, soft. Absent: tenderness - Extremities Exam Extremities exam: Present: pedal edema (Venous stasis dermatitis noted to the BLE). Absent: joint swelling, tenderness Additional comments: Right heel ulcer with graft in place with kasey. No surrounding erythema, warmth, or drainage noted. No foul odor. No fluctuance noted. - Neurological Exam Neurological exam: Present: alert, oriented X3, no focal deficits - Psychiatric Psychiatric exam: Present: normal affect, normal mood - Skin Skin exam: Present: dry, intact, normal color, warm Infectious Disease CN: Results - Labs CBC & Chem 7: 03/23/18 04:00 03/23/18 04:00 Cultures: Cultures 03/21/18 17:32 Blood Culture - Preliminary Peripheral Venipuncture Culture is incubating and being continuously monitored for growth. Final report to follow. 03/21/18 17:32 Blood Culture - Preliminary Peripheral Venipuncture Culture is incubating and being continuously monitored for growth. Final report to follow. Serology: Serology 03/22/18 03/22/18 03/22/18 Range/Units 13:50 13:50 13:50 Urine Color Yellow (Yellow) Urine Clarity Turbid A (Clear) Urine pH 6.0 (5.0-8.0) pH Units Ur Specific [place] 1.011 (1.010-1.025) Urine Protein 100 H (Neg-Trace) mg/dL Urine Glucose (UA) Normal (Normal) mg/dL Urine Ketones Negative (Negative) mg/dL Urine Blood Small H (Negative) Urine Nitrite Negative (Negative) Urine Bilirubin Negative (Negative) Urine Urobilinogen Normal (Normal) mg/dL Ur Leukocyte Esterase Large H (Negative) Urine Microscopic RBC 0-3 (0-3) per hpf Urine Microscopic WBC TNTC H (0-3) per hpf Ur Eosinophil Smear 0 (None Seen) % Ur Squamous Epith Cells Few (None-Few) per lpf Ur Transition Epith Cell Few (None-Few) per hpf Ur Renal Epithelial Cell Few (None-Few) per hpf Urine Bacteria Moderate H (None-Few) per hpf Ur Culture Indicated? YES A (NO) Urine Creatinine 46 mg/dL Protein/Creatinin Ratio 1.63 H (0.00-0.20) mg/mg Urine Sodium 29.3 mEq/L Urine Total Protein 75 H (1-14) mg/dL Nasal Screen MRSA (PCR) (Negative) 03/22/18 03/22/18 Range/Units 02:50 02:50 Urine Color (Yellow) Urine Clarity (Clear) Urine pH (5.0-8.0) pH Units Ur Specific [place] (1.010-1.025) Urine Protein (Neg-Trace) mg/dL Urine Glucose (UA) (Normal) mg/dL Urine Ketones (Negative) mg/dL Urine Blood (Negative) Urine Nitrite (Negative) Urine Bilirubin (Negative) Urine Urobilinogen (Normal) mg/dL Ur Leukocyte Esterase (Negative) Urine Microscopic RBC (0-3) per hpf Urine Microscopic WBC (0-3) per hpf Ur Eosinophil Smear (None Seen) % Ur Squamous Epith Cells (None-Few) per lpf Ur Transition Epith Cell (None-Few) per hpf Ur Renal Epithelial Cell (None-Few) per hpf Urine Bacteria (None-Few) per hpf Ur Culture Indicated? (NO) Urine Creatinine mg/dL Protein/Creatinin Ratio (0.00-0.20) mg/mg Urine Sodium mEq/L Urine Total Protein (1-14) mg/dL Nasal Screen MRSA (PCR) Negative Positive A (Negative) Consult Discharge Plan - Plan Referrals: Jc Tsai MD [Primary Care Provider] - - Attending Attestation I examined this patient and my medical decision-making was reviewed with the Resident Physician. I agree with the documented findings, disposition and treatment plan as described except to the extent set forth below. This is an addendum to original report dictated by Gina Lamb CNP. Please refer to Gina's note for full detail. Patient is a 58-year-old woman who is well-known to our service who presented and with acute kidney injury and hyperkalemia. Patient was recently seen by us for diabetic foot infection and was treated appropriately. Patient had a flap placed by Dr. Stoll. Right now the flap does not appear infected and there is no cellulitis there is no signs of infection. I did speak with Dr. Stoll and he is happy with the patient's progress. I do not believe we need to do any broad-spectrum antibiotics since there is no obvious infection. I will stop all antibiotics unobserved. Discussed with Dr. Stoll and he agrees with the current plan. woman
[2018-03-23] MEDS: Fluticasone Propionate Nasal 50 MCG/SPRAY BOTTLE NS SCH (17:07)
[2018-03-23] MEDS: Ketoconazole 2% CRM 15 GM TUBE TP SCH (17:08)
--- NOTE | 2018-03-23 17:59 | Podiatry Consult Note ---
Date of Encounter: 03/23/18 Time of Encounter: 12:15 Assessment and Plan (1) Ulcer of right heel Current visit: No Status: Acute Assessment: #1 Ivory grade 2 ulceration plantar right heel #2 no evidence of gross infection or abscess #3 graft jacket previously applied is now nonviable and desiccated Plan: #1 continue remove all kasey and desiccated graft jacket today at bedside irrigate wound with copious amounts sterile saline applied moist to dry saline dressing. We will institute use of Santyl ointment twice a day under a moist to dry dressing as well avoid all pressure to the left and right heel at all times. #2 dressing changes to be done twice #3 follow-up with Dr. Stoll, in wound care clinic once she has been discharged Qualifiers: Non-pressure ulcer stage: unspecified non-pressure ulcer stage Qualified Code(s): L97.419 - Non-pressure chronic ulcer of right heel and midfoot with unspecified severity History of Present Illness Chief complaint: Ulcer right heel and left heel HPI: Ms. Magallanes is a 58 year old female , known to me who underwent aggressive incision and drainage and debridement for any significant infection and abscess of the right calcaneus for which under she underwent, graft jacket wound VAC and offloading during her postoperative period the extracellular/matrix/ graft jacket is intact, but desiccated. We will remove all kasey today irrigate the wound placed appropriate saline a moist dressing and begin use of Santyl. We will replace the Allevyn for the grade 0/1 pressure, ulceration of the posterior lateral aspect of the left heel. Past Med Surg Social Fam HX - Past Medical History Medical history: CHF, COPD, diabetes, hyperlipidemia, hypertension, other Additional medical history: DM Neuropathy. Type II Diabetic Psychiatric history: depression - Past Surgical History Surgical History: hysterectomy, other Additional surgical history: neck surgery - Social History Smoking Status: Never smoker Smokeless Tobacco Status: No Alcohol use: none Drug use: none - Family History Mother Adopted: No Family Member Ethnicity: Non- Living Status: Hx Family Endocrine Disorder: Yes (diabetes type 2) Father Adopted: No Family Member Ethnicity: Non- Living Status: Hx Family Cardiac Disorders: Yes (hypertension) Hx Family Respiratory Disorders: No Hx Family Cancer: No Hx Family GI Disorders: No Hx Family Endocrine Disorder: Yes (kidney disease) Medications and Allergies Atorvastatin [Lipitor] 40 mg PO HS 06/20/16 [History] Insulin ASPART [Novolog Flexpen] 6 - 14 unit SQ TID 01/11/16 [History] Latanoprost [Xalatan] 1 drop BOTH EYES HS 01/11/16 [History] Primidone [Mysoline] 50 mg PO BID PRN 01/11/16 [History] Ascorbic Acid [Vitamin C] 500 mg PO BID 03/25/16 [History] Docusate Sodium [Colace] 200 mg PO BID 03/25/16 [History] Furosemide [Lasix] 40 mg PO BID 12/06/16 [History] Fluticasone Propionate Nasal [Flonase] 2 spray NS DAILY #1 bottle 08/28/17 [Rx] Ketoconazole 2% CRM [Nizoral Cream] 1 appl TP DAILY 11/10/17 [History] Ketorolac Tromethamine 1 drop OP QID 11/10/17 [History] Losartan Potassium [Cozaar] 100 mg PO DAILY 11/10/17 [History] Tizanidine HCl 4 mg PO TID 11/20/17 [History] Calcium Carbonate [Tums] 1,000 mg PO Q4HR PRN tab.chew 11/24/17 [Rx] Carvedilol [Coreg] 6.25 mg PO BIDWM tablet 11/24/17 [Rx] Lactobacillus Acidophilus [Acidophilus] 1 each PO BID #10 capsule 11/24/17 [Rx] Gabapentin [Neurontin] 300 mg PO HS 01/17/18 [History] Ferrous Sulfate 325 mg PO BID 01/30/18 [History] Loratadine [Allergy Relief] 10 mg PO DAILY 01/30/18 [History] Pantoprazole Sodium [Protonix] 40 mg PO DAILY 01/30/18 [History] Polyethylene Glycol 3350 [MiraLAX] 17 gm PO DAILY 01/30/18 [History] Sucralfate [Carafate] 1 gm PO 0730,1630 30 Days #60 tablet 02/16/18 [Rx] Diltiazem CD (24hr) [Cardizem CD] 120 mg PO DAILY 02/20/18 [History] Insulin DETEMIR [Levemir] 30 unit SQ HS [id number] 02/26/18 [Rx] Ipratropium/Albuterol Neb [Duoneb] 3 ml IH [id number] PRN inhsol 02/26/18 [Rx] Pregabalin [Lyrica] 75 mg PO BID 30 Days #60 capsule 02/26/18 [Rx] Simethicone [Gas-X] 80 mg PO TID PRN tab.chew 02/26/18 [Rx] clonazePAM [Klonopin] 0.5 mg PO BID PRN 5 Days #10 tablet 02/26/18 [Rx] Brimonidine Tartrate/Timolol [Combigan 0.2%-0.5% Eye Drops] 1 drop BOTH EYES BID 03/07/18 [History] 3 Allergy/AdvReac Type Severity Reaction Status Date / Time lisinopril [From Zestril] Allergy Rash Verified 01/17/18 13:50 All Systems Reviewed: The remainder of the systems were reviewed and are negative Physical Exam - Constitutional Vitals: Temp Pulse Resp BP Pulse Ox 98.8 F 70 17 103/67 92 03/23/18 16:47 03/23/18 16:47 03/23/18 16:47 03/23/18 16:47 03/23/18 16:47 General appearance: cooperative, no acute distress, obese - Expanded Lower Extremities Exam Foot/Toe exam: Present: calcaneal tenderness (We observe a ulceration on plantar aspect of the right calcaneus with kasey intact holding a desiccated graft jacket which we removed today once removed we measured the ulceration is being approximately 4.5 centers length 4.5 cm in width 0.3 cm in depth with 50% granulation tissue and 50% fibrin. Probe to bone test is negative. No purulence no necrosis no cellulitis no undermining no sinus tract or tunneling. We observe grade 1 ulcer plantar lateral aspect left calcaneus) Gait: Present: not tested/not observed - Neurological Exam Additional comments: Pauly with ongoing paresthesias dysesthesias diminished epicritic sensation light touch 2 point discrimination, vibration. We observe significant loss of protective sensation from toes to tibia bilaterally Results - Labs Result Diagrams: 03/23/18 04:00 03/23/18 04:00 Labs: Abnormal lab results RBC 2.92 M/mcL (3.82-4.97) L 03/23/18 04:00 Hgb 8.0 g/dL (11.5-15.4) L 03/23/18 04:00 Hct 26.8 % (35.3-44.9) L 03/23/18 04:00 MCH 27.4 pg (28.0-33.3) L 03/23/18 04:00 MCHC 29.9 g/dL (31.6-35.5) L 03/23/18 04:00 RDW 16.2 % (11.5-14.5) H 03/23/18 04:00 MPV 12.7 fL (9.4-12.4) H 03/23/18 04:00 PT 12.9 Seconds (9.4-12.1) H 03/22/18 04:00 BUN 94 mg/dL (6-20) H 03/23/18 04:00 Creatinine 2.00 mg/dL (0.60-1.20) H 03/23/18 04:00 Est GFR ( Amer) 31 (> 60) L 03/23/18 04:00 Est GFR (Non-Af Amer) 26 (> 60) L 03/23/18 04:00 BUN/Creatinine Ratio 47 (6-26) H 03/23/18 04:00 Glucose 130 mg/dL (70-105) H 03/23/18 04:00 POC Glucose 143 mg/dL (70-99) H 03/23/18 11:38 Hemoglobin A1c 5.7 % (-5.6) H 03/21/18 16:35 Calculated Osmolality 323 (280-300) H 03/23/18 04:00 Uric Acid 10.3 mg/dL (2.3-7.6) H 03/23/18 04:00 Calcium 8.4 mg/dL (8.6-10.3) L 03/23/18 04:00 Total Bilirubin 0.2 mg/dL (0.3-1.0) L 03/22/18 04:00 AST 8 Units/L (13-39) L 03/22/18 04:00 ALT 6 Units/L (7-52) L 03/22/18 04:00 Creatine Kinase 21 Units/L (30-223) L 03/23/18 04:00 Albumin 2.9 g/dL (3.5-5.7) L 03/22/18 04:00 Globulin 4.3 g/dL (2.4-3.5) H 03/22/18 04:00 Albumin/Globulin Ratio 0.7 (1.1-2.2) L 03/22/18 04:00 Urine Clarity Turbid (Clear) A 03/22/18 13:50 Urine Protein 100 mg/dL (Neg-Trace) H 03/22/18 13:50 Urine Blood Small (Negative) H 03/22/18 13:50 Ur Leukocyte Esterase Large (Negative) H 03/22/18 13:50 Urine Microscopic WBC TNTC per hpf (0-3) H 03/22/18 13:50 Urine Bacteria Moderate per hpf (None-Few) H 03/22/18 13:50 Ur Culture Indicated? YES (NO) A 03/22/18 13:50 Protein/Creatinin Ratio 1.63 mg/mg (0.00-0.20) H 03/22/18 13:50 Urine Total Protein 75 mg/dL (1-14) H 03/22/18 13:50 Nasal Screen MRSA (PCR) Positive (Negative) A 03/22/18 02:50 H & H 03/23/18 Range/Units 04:00 Hgb 8.0 L (11.5-15.4) g/dL Hct 26.8 L (35.3-44.9) % All other labs normal. Consult Discharge Plan - Plan Referrals: Jc Tsai MD [Primary Care Provider] -
[2018-03-23] MEDS: Insulin DETEMIR 100 UNIT/ML X5UNITS SQ SCH (23:45)
[2018-03-23] MEDS: Gabapentin 300 MG CAPSULE PO SCH (23:46)
[2018-03-23] MEDS: Latanoprost 2.5 ML BOTTLE BOTH EYES SCH (23:47)
[2018-03-24] MEDS: *HR* Heparin 5,000 UNIT/ML VIAL SQ SCH ×2 (06:59→15:29)
[2018-03-24 07:21] LABS: Basophils # 0.1 K/mcL (0.0-0.2); Basophils % 0.5 %; Eosinophils # 0.2 K/mcL (0.0-0.6); Eosinophils % 1.7 %; Hematocrit 28.9 % (35.3-44.9); Hemoglobin 8.9 g/dL (11.5-15.4); Immature Granulocytes % 0.7 % (0-4); Lymphocytes # 1.9 K/mcL (0.6-4.6); Lymphocytes % 18.4 %; Mean Corpuscular HGB Conc 30.8 g/dL (31.6-35.5); Mean Corpuscular Hemoglobin 27.6 pg (28.0-33.3); Mean Corpuscular Volume 89.8 fL (83.0-100.0); Mean Platelet Volume 12.9 fL (9.4-12.4); Monocytes # 0.6 K/mcL (0.0-1.3); Monocytes % 5.9 %; Neutrophils # 7.5 K/mcL (1.6-8.9); Platelet Count 237 K/mcL (140-400); Red Blood Count 3.22 M/mcL (3.82-4.97); Red Cell Distribution Width 15.9 % (11.5-14.5); Segmented Neutrophils % 72.8 %
[2018-03-24 07:50] LABS: Calcium 8.9 mg/dL (8.6-10.3); Potassium 4.9 mEq/L (3.5-5.1)
[2018-03-24] MEDS: Insulin LISPRO 300 UNITS/3 ML VIAL SQ SCH ×3 (08:00→17:27)
--- NOTE | 2018-03-24 09:38 | Nephrology Progress Note ---
Date of Encounter: 03/24/18 Time of Encounter: 10:20 - Assessment and Plan (1) Acute kidney failure Status: Acute Renal function improving and this DOROTHEA -- like the several prior documented AKIs -- appears mutlifactorial with UTI and sepsis while having underlying risk factors of DM, HTN, morbid obesity and being on an ARB. I recommend she not resume the ARB at discharge and to encourage adequate oral intake -- she is mildly hypernatremic today, and this may worsen if she is not consuming enough free water orally. Nevertheless, she will not need HD and should continue to follow a renal protective strategy: avoidance of Nephrotoxins such as NSAIDs, Bactrim, IV contrast, and etc. Will sign-off seeing her improvement and no need for MANAGER PAYMENT, but please feel free to contact me with any questions. Thank you. Qualifiers: Acute renal failure type: unspecified Qualified Code(s): N17.9 - Acute kidney failure, unspecified (2) Hyperuricemia Status: Acute Noted with serum uric acid >10, so I do rec adding a low dose xanthine oxidase inhibitor, which is renally dosed, at 100mg of Allopurinol per day. (3) UTI (urinary tract infection) Status: Acute As per primary Qualifiers: Urinary tract infection type: site unspecified Hematuria presence: without hematuria Qualified Code(s): N39.0 - Urinary tract infection, site not specified (4) Morbid obesity Status: Chronic Recommend lifestyle modifications for weight loss, diet, exercise as able, adequate water intake, glycemic control, BP control to help delay the progression into CKD. Counseled her/her family for >50% of the encounter (5) HTN (hypertension) Status: Chronic See above: would not resume the losartan at/after discharge, which can impair renal autoregulation and in pt's with frequent AKIs, which is documented in our [facility] EHR, it would be best to avoid this potential nephrotoxin for the time being. Qualifiers: Hypertension type: essential hypertension Qualified Code(s): I10 - Essential (primary) hypertension (6) Type 2 diabetes mellitus Status: Chronic See above. Renal risk factor. 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 Avoid nephrotoxic Abx, if able. Qualifiers: Laterality: right Non-pressure ulcer stage: unspecified non-pressure ulcer stage Qualified Code(s): L97.419 - Non-pressure chronic ulcer of right heel and midfoot with unspecified severity Subjective Principal diagnosis: worsening renal function Interval history: She and her were seen in the 2A room. She was s/e. She did not affirm new major complaints and did not affirm dysuria, N/V/D or CP. Objective - Vital Signs Vital signs: Vital Signs Temp Pulse Resp BP Pulse Ox 03/24/18 07:26 97.6 F 70 18 112/68 94 03/24/18 04:02 97.9 F 73 18 129/68 93 03/24/18 00:00 97.6 F 83 18 127/77 93 03/23/18 19:24 98.1 F 74 17 132/72 94 03/23/18 16:47 98.8 F 70 17 103/67 92 03/23/18 11:41 97.5 F L 78 18 141/82 90 Intake and Output 03/23/18 03/24/18 03/24/18 23:59 07:59 15:59 Intake Total 300 / 300 Balance 300 / 300 Intake: Oral 300 / 300 Other: Meal Breakfast Percent of Meal Consumed 100% Blood Glucose* 153 108 - General Appearance Exam: General appearance: Present: well-developed, well-nourished, obese EENT: Present: ATNC, hearing intact, vision intact Neck: Present: supple Respiratory: Present: clear Cardiology: Present: edema (Trace to 1+ pedal bilateral edema), normal S1, normal S2 Gastrointestinal: Present: normoactive bowel sounds, no tenderness, no guarding , obese Integumentary: Present: no rash, warm and dry Neurologic: Present: alert and oriented x3 Psychiatric: Present: mood/affect appropriate, cooperative - Lab 03/24/18 07:02 03/24/18 07:02 Most recent lab results Calcium 8.9 mg/dL (8.6-10.3) 03/24/18 07:02 Magnesium 1.7 mg/dL (1.6-2.6) 03/22/18 04:00 Urine Creatinine 46 mg/dL 03/22/18 13:50 Urine Sodium 29.3 mEq/L 03/22/18 13:50 Urine Total Protein 75 mg/dL (1-14) H 03/22/18 13:50 Consult Discharge Plan - Plan Referrals: Jc Tsai MD [Primary Care Provider] - (Please call your PCP [phone]) Prescriptions: clonazePAM [Klonopin] 0.5 mg PO BID PRN 5 Days #10 tablet PRN Reason: Anxiety Gabapentin [Neurontin] 300 mg PO HS #5 capsule Pregabalin [Lyrica] 75 mg PO BID 5 Days #10 capsule
[2018-03-24 11:35] VITALS: BP 96/63
[2018-03-24] MEDS: Lactobacillus 1 EACH CAP.SPRINK PO SCH (12:05)
[2018-03-24] MEDS: Diltiazem CD (24hr) 120 MG CAPSULE PO SCH (12:05)
[2018-03-24] MEDS: tiZANidine 4 MG TABLET PO SCH ×2 (12:05→17:41)
[2018-03-24] MEDS: Pregabalin 75 MG CAPSULE PO SCH (12:06)
[2018-03-24] MEDS: Furosemide 40 MG TABLET PO SCH ×2 (12:06→17:40)
[2018-03-24] MEDS: Loratadine 10 MG TABLET PO SCH (12:06)
[2018-03-24] MEDS: Ascorbic Acid 500 MG TABLET PO SCH (12:06)
[2018-03-24] MEDS: Sucralfate 1 GM TABLET PO SCH ×2 (12:08→17:40)
[2018-03-24] MEDS: Fluticasone Propionate Nasal 50 MCG/SPRAY BOTTLE NS SCH (12:08)
[2018-03-24] MEDS: Ketoconazole 2% CRM 15 GM TUBE TP SCH (12:08)
--- NOTE | 2018-03-24 15:39 | Discharge Summary ---
- NOTES TO OUTPATIENT PROVIDER Notes to Outpatient Provider: Patient to have renal function monitored at detention facility for resolving acute renal failure Date of Encounter: 03/24/18 Time of Encounter: 11:00 - Discharge Diagnosis (1) Acute kidney failure Priority: Primary Status: Acute Qualifiers: Acute renal failure type: unspecified Qualified Code(s): N17.9 - Acute kidney failure, unspecified (2) Diabetic foot ulcer Priority: Secondary Status: Chronic Qualifiers: Diabetic foot ulcer location: heel Diabetes mellitus type: type 1 Laterality: right Non-pressure ulcer stage: with fat layer exposed Qualified Code(s): E10.621 - Type 1 diabetes mellitus with foot ulcer; L97.412 - Non-pressure chronic ulcer of right heel and midfoot with fat layer exposed (3) Diastolic heart failure Priority: Secondary Status: Chronic Qualifiers: Heart failure chronicity: chronic Qualified Code(s): I50.32 - Chronic diastolic (congestive) heart failure (4) Encephalopathy acute Priority: Secondary Status: Acute Hospital course: Patient is a 58-year-old female who presents from detention facility due to abnormal labs. She has a past medical history significant for diabetic foot ulcer in addition to hypertension, hyperlipidemia and diabetes. In the ER, patient was found to have elevated BUN and of 102 and elevated creatinine of 2.37. Patient was admitted to medical surgical floor for further management. During patients hospital stay, patients acute renal failure improved and nephrology was consulted with recommendations to discontinue are upon discharge. Patient will be discharged to detention facility to monitor renal function. Infectious disease was also consulted with recommendations not to start IV antibiotics for diabetic foot ulcer in addition to not starting antibiotics for asymptomatic bacteriuria. She will be monitored at the detention facility. - Time Spent with Patient Total time spent providing and/or coordinating discharge services: Less than 30 minutes - Discharge Medications Prescriptions: clonazePAM [Klonopin] 0.5 mg PO BID PRN 5 Days #10 tablet PRN Reason: Anxiety Gabapentin [Neurontin] 300 mg PO HS #5 capsule Pregabalin [Lyrica] 75 mg PO BID 5 Days #10 capsule Home Medications: Atorvastatin [Lipitor] 40 mg PO HS 01/11/16 [History] Insulin ASPART [Novolog Flexpen] 6 - 14 unit SQ TID 01/11/16 [History] Latanoprost [Xalatan] 1 drop BOTH EYES HS 01/11/16 [History] Primidone [Mysoline] 50 mg PO BID PRN 01/11/16 [History] Ascorbic Acid [Vitamin C] 500 mg PO BID 03/25/16 [History] Docusate Sodium [Colace] 200 mg PO BID 03/25/16 [History] Furosemide [Lasix] 40 mg PO BID 12/06/16 [History] Fluticasone Propionate Nasal [Flonase] 2 spray NS DAILY #1 bottle 08/28/17 [Rx] Ketoconazole 2% CRM [Nizoral Cream] 1 appl TP DAILY 11/10/17 [History] Ketorolac Tromethamine 1 drop OP QID 11/10/17 [History] Tizanidine HCl 4 mg PO TID 11/20/17 [History] Calcium Carbonate [Tums] 1,000 mg PO Q4HR PRN tab.chew 11/24/17 [Rx] Carvedilol [Coreg] 6.25 mg PO BIDWM tablet 11/24/17 [Rx] Lactobacillus Acidophilus [Acidophilus] 1 each PO BID #10 capsule 11/24/17 [Rx] Ferrous Sulfate 325 mg PO BID 01/30/18 [History] Loratadine [Allergy Relief] 10 mg PO DAILY 01/30/18 [History] Pantoprazole Sodium [Protonix] 40 mg PO DAILY 01/30/18 [History] Polyethylene Glycol 3350 [MiraLAX] 17 gm PO DAILY 01/30/18 [History] Sucralfate [Carafate] 1 gm PO 0730,1630 30 Days #60 tablet 02/16/18 [Rx] Diltiazem CD (24hr) [Cardizem CD] 120 mg PO DAILY 02/20/18 [History] Insulin DETEMIR [Levemir] 30 unit SQ HS [id number] 02/26/18 [Rx] Ipratropium/Albuterol Neb [Duoneb] 3 ml IH [id number] PRN inhsol 02/26/18 [Rx] Simethicone [Gas-X] 80 mg PO TID PRN tab.chew 02/26/18 [Rx] Brimonidine Tartrate/Timolol [Combigan 0.2%-0.5% Eye Drops] 1 drop BOTH EYES BID 03/07/18 [History] Gabapentin [Neurontin] 300 mg PO HS #5 capsule 03/24/18 [Rx] Pregabalin [Lyrica] 75 mg PO BID 5 Days #10 capsule 03/24/18 [Rx] clonazePAM [Klonopin] 0.5 mg PO BID PRN 5 Days #10 tablet 03/24/18 [Rx] Allergies/Adverse Reactions: 3 Allergy/AdvReac Type Severity Reaction Status Date / Time lisinopril [From Zestril] Allergy Rash Verified 01/17/18 13:50 Date of admission: 03/21/18 17:28 Primary care physician: Jc Tsai MD Consults: 03/21/18 19:33 Consult to Bill Board Poster [CONS] Routine Reason for SW Consult: Return to [facility] from [facility]. 03/22/18 04:02 Consult to Invasive Line Access Team [CONS] Routine Reason for Consult: abx Zosyn and Zyvox Line Type: Midline PICC line indications: Limited vascular access Call Completed: No 03/22/18 10:25 Consult to Occupational Therapy [CONS] Routine Comment: Evaluate, develop and implement POC Reason for Consult: d/c planning from ecf, up x3 Does patient have active BEDREST order?: No Is patient medically & hemodynamically stable?: Yes Patient assessed for mobility or mobilized this visit?: No Consult to Physical Therapy [CONS] Routine Comment: Evaluate, develop and implement POC Reason for Consult: d/c planning from ecf, up x3, weakness Does patient have active BEDREST order?: No Is patient medically & hemodynamically stable?: Yes Patient assessed for mobility or mobilized this visit?: No 03/22/18 15:13 Consult to Infectious Diseases [CONS] Routine Consulting Provider: Infectious Disease [facility] Reason for Consult: hx: MRSA, VRE, 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 as well with admission, antibiotic management Call Completed: No 03/23/18 08:43 Consult to Podiatry [CONS] Routine Consulting Provider: [facility] Reason for Consult: Foot ulcer Call Completed: Yes - Constitutional Vitals: Temp Pulse Resp BP Pulse Ox 97.9 F 69 19 96/63 96 03/24/18 11:28 03/24/18 11:28 03/24/18 11:28 03/24/18 11:28 03/24/18 11:28 General appearance: Present: cooperative, pleasant, no acute distress Exam: Gen.: Nonacute distress, alert and oriented 3 ENT: Mucosal membranes moist Cardiovascular: Normal S1 and S2 regular rate rhythm no murmurs rubs or gallops - Patient Status Disposition: Transfer SNF Condition: Fair - Discharge Instructions Follow Up With: Jc Tsai MD [Primary Care Provider] - (Please call your PCP [phone])
--- NOTE | 2018-03-24 15:40 | Physician Discharge Referral ---
ExtendedCare Referral Info Institutional Level of Care: Skilled - Diagnosis (1) Acute kidney failure Status: Acute (2) Diabetic foot ulcer Status: Chronic (3) Diastolic heart failure Status: Chronic (4) Encephalopathy acute Status: Acute - Transfer Medications Prescriptions: clonazePAM [Klonopin] 0.5 mg PO BID PRN 5 Days #10 tablet PRN Reason: Anxiety Gabapentin [Neurontin] 300 mg PO HS #5 capsule Pregabalin [Lyrica] 75 mg PO BID 5 Days #10 capsule Home Medications: Atorvastatin [Lipitor] 40 mg PO HS 01/11/16 [History] Insulin ASPART [Novolog Flexpen] 6 - 14 unit SQ TID 01/11/16 [History] Latanoprost [Xalatan] 1 drop BOTH EYES HS 01/11/16 [History] Primidone [Mysoline] 50 mg PO BID PRN 01/11/16 [History] Ascorbic Acid [Vitamin C] 500 mg PO BID 03/25/16 [History] Docusate Sodium [Colace] 200 mg PO BID 03/25/16 [History] Furosemide [Lasix] 40 mg PO BID 12/06/16 [History] Fluticasone Propionate Nasal [Flonase] 2 spray NS DAILY #1 bottle 08/28/17 [Rx] Ketoconazole 2% CRM [Nizoral Cream] 1 appl TP DAILY 11/10/17 [History] Ketorolac Tromethamine 1 drop OP QID 11/10/17 [History] Tizanidine HCl 4 mg PO TID 11/20/17 [History] Calcium Carbonate [Tums] 1,000 mg PO Q4HR PRN tab.chew 11/24/17 [Rx] Carvedilol [Coreg] 6.25 mg PO BIDWM tablet 11/24/17 [Rx] Lactobacillus Acidophilus [Acidophilus] 1 each PO BID #10 capsule 11/24/17 [Rx] Ferrous Sulfate 325 mg PO BID 01/30/18 [History] Loratadine [Allergy Relief] 10 mg PO DAILY 01/30/18 [History] Pantoprazole Sodium [Protonix] 40 mg PO DAILY 01/30/18 [History] Polyethylene Glycol 3350 [MiraLAX] 17 gm PO DAILY 01/30/18 [History] Sucralfate [Carafate] 1 gm PO 0730,1630 30 Days #60 tablet 02/16/18 [Rx] Diltiazem CD (24hr) [Cardizem CD] 120 mg PO DAILY 02/20/18 [History] Insulin DETEMIR [Levemir] 30 unit SQ HS [id number] 02/26/18 [Rx] Ipratropium/Albuterol Neb [Duoneb] 3 ml IH [id number] PRN inhsol 02/26/18 [Rx] Simethicone [Gas-X] 80 mg PO TID PRN tab.chew 02/26/18 [Rx] Brimonidine Tartrate/Timolol [Combigan 0.2%-0.5% Eye Drops] 1 drop BOTH EYES BID 03/07/18 [History] Gabapentin [Neurontin] 300 mg PO HS #5 capsule 03/24/18 [Rx] Pregabalin [Lyrica] 75 mg PO BID 5 Days #10 capsule 03/24/18 [Rx] clonazePAM [Klonopin] 0.5 mg PO BID PRN 5 Days #10 tablet 03/24/18 [Rx] Allergies/Adverse Reactions: 3 Allergy/AdvReac Type Severity Reaction Status Date / Time lisinopril [From Zestril] Allergy Rash Verified 01/17/18 13:50 - Respiratory Orders Smoking Cessation: Smoking cessation has been advised. For more information, call the [place] Tobacco Quit Line at 4-437-ZDCWNOW. CERTIFICATION: I certify that the transfer of the above named patient to an Extended Care Facility is necessary for the continuing treatment of the diagnosis listed. The above information is true and accurate reflection of patient's current condition. Confidential - Redisclosure prohibited without a patient's written consent.
--- NOTE | 2018-03-26 13:42 | Electrocardiograph Report ---
[place] [id number] Test Date: 2018-03-21 Pat Name: Pauly Magallanes Department: 106 Room: 2A22 Gender: F Account Director: [id number] : 1960 Requested By: Mark Hall Order Number: [id number] Reading MD: Elton Sheffield Measurements Intervals [place] Rate: 62 P: 46 UT: 121 QRS: 7 QRSD: 98 T: 8 QT: 440 QTc: 446 Interpretive Statements SINUS RHYTHM Electronically Signed On 03-26-2018 13:40:35 EDT by Elton Sheffield
== END 2018-03-24 19:14 ==
LOC: 2ANU 14:49 → EMEROOARM 14:49 → SUATTDRO 17:28 → 2ANU 18:19
PROVIDERS: ADMIT Internal Medicine; ATTEND Hospitalist

== ENCOUNTER 2018-04-06 16:48 | Inpatient (IN) ==
[2018-04-06 18:10] LABS: Color,Urine Dark Yellow (Yellow)
[2018-04-06 18:24] LABS: WBC,Urine TNTC per hpf (0-3)
[2018-04-06 18:25] LABS: Bacteria,Urine Present per hpf (None-Few)
[2018-04-06] MEDS ORDERED: cefTRIAXone 1,000 MG in Water for inj. (sterile) 20 ML 10 ML IVP ONE (19:07)
[2018-04-06] MEDS ORDERED: 0.9 % Sodium Chloride 1,000 ML IVC ONE (19:11)
[2018-04-06] MEDS ORDERED: 0.9 % Sodium Chloride 1,000 ML IV SCH (19:15)
[2018-04-06 20:35] LABS: Hematocrit 30.2 % (35.3-44.9); Hemoglobin 9.6 g/dL (11.5-15.4); Mean Corpuscular HGB Conc 31.8 g/dL (31.6-35.5); Mean Corpuscular Hemoglobin 27.4 pg (28.0-33.3); Mean Platelet Volume 13.2 fL (9.4-12.4); Platelet Count 168 K/mcL (140-400); Red Blood Count 3.51 M/mcL (3.82-4.97); Red Cell Distribution Width 15.2 % (11.5-14.5)
[2018-04-06 20:53] LABS: Calcium 8.5 mg/dL (8.6-10.3); Potassium 5.9 mEq/L (3.5-5.1)
[2018-04-06] MEDS ORDERED: Naloxone 0.4 MG/ML INJ IVP PRN (22:08)
[2018-04-06] MEDS ORDERED: Ipratropium/Albuterol Neb 3 ML IH PRN (22:15)
--- NOTE | 2018-04-06 22:27 | Internal Med History&Physical ---
Addendum entered and electronically signed by Sinan Buchanan DO 23:40: We will hold lasix and coreg. Give patient 500cc NS at 75cc/hr. Monitor BP and give fluids accordingly. Original Note: <DewayneSinan Galarza - Last Filed: 04/06/18 22:41> Date of Encounter: 04/06/18 Time of Encounter: 22:23 Internal Medicine - H&P: HPI Chief complaint: hypotension Admitted From: [place] Plans for Post Hospital Care: Transfer Configuration Developer Care History of present illness: Ms. Magallanes is a 58 year old female presented from [facility] as she was found to be hypotensive. Patient reports that she was found to have a fever today but did not know how elevated was. snf found that her urine was very thick, cloudy. And because of her hypotension she was sent to [place] emergency room. Upon examining the patient she is awake, alert, in no acute distress. She reports increased urinary frequency. She denies chills, chest pain, palpitations, shortness of breath, cough, abdominal pain, nausea, vomiting, diarrhea, dysuria. She has a chronic right heel diabetic ulcer. This is followed by wound care and she is not on antibiotics. Patient's urine was collected but was very dark yellow, thick and sent for culture. Her initial blood pressure was 109/58 and she received 2 L of normal saline. Her white blood cell count was elevated at 15.8. She also had elevated serum creatinine of 2.84 (last recorded Scr was 1.2). She is afebrile, not tachycardic. Past Med Surg Social Fam HX - Past Medical History Medical history: CHF, COPD, diabetes, hyperlipidemia, hypertension, other Additional medical history: DM Neuropathy. Type II Diabetic Psychiatric history: depression - Past Surgical History Surgical History: hysterectomy, other Additional surgical history: neck surgery - Social History Smoking Status: Never smoker Smokeless Tobacco Status: No Alcohol use: none Drug use: none - Family History Mother Adopted: No Family Member Ethnicity: Non- Living Status: Hx Family Endocrine Disorder: Yes (diabetes type 2) Father Adopted: No Family Member Ethnicity: Non- Living Status: Hx Family Cardiac Disorders: Yes (hypertension) Hx Family Respiratory Disorders: No Hx Family Cancer: No Hx Family GI Disorders: No Hx Family Endocrine Disorder: Yes (kidney disease) Internal Medicine - H&P: Meds Atorvastatin [Lipitor] 40 mg PO HS 01/11/16 [History] Insulin ASPART [Novolog Flexpen] 6 - 14 unit SQ TID 01/11/16 [History] Latanoprost [Xalatan] 1 drop BOTH EYES HS 01/11/16 [History] Primidone [Mysoline] 50 mg PO BID PRN 01/11/16 [History] Ascorbic Acid [Vitamin C] 500 mg PO BID 03/25/16 [History] Docusate Sodium [Colace] 200 mg PO BID 03/25/16 [History] Furosemide [Lasix] 40 mg PO BID 12/06/16 [History] Fluticasone Propionate Nasal [Flonase] 2 spray NS DAILY #1 bottle 08/28/17 [Rx] Ketoconazole 2% CRM [Nizoral Cream] 1 appl TP DAILY 11/10/17 [History] Ketorolac Tromethamine 1 drop OP QID 11/10/17 [History] Tizanidine HCl 4 mg PO TID 11/20/17 [History] Calcium Carbonate [Tums] 1,000 mg PO Q4HR PRN tab.chew 11/24/17 [Rx] Carvedilol [Coreg] 6.25 mg PO BIDWM tablet 11/24/17 [Rx] Lactobacillus Acidophilus [Acidophilus] 1 each PO BID #10 capsule 11/24/17 [Rx] Ferrous Sulfate 325 mg PO BID 01/30/18 [History] Loratadine [Allergy Relief] 10 mg PO DAILY 01/30/18 [History] Pantoprazole Sodium [Protonix] 40 mg PO DAILY 01/30/18 [History] Polyethylene Glycol 3350 [MiraLAX] 17 gm PO DAILY 01/30/18 [History] Sucralfate [Carafate] 1 gm PO 0730,1630 30 Days #60 tablet 02/16/18 [Rx] Diltiazem CD (24hr) [Cardizem CD] 120 mg PO DAILY 02/20/18 [History] Insulin DETEMIR [Levemir] 30 unit SQ HS [id number] 02/26/18 [Rx] Ipratropium/Albuterol Neb [Duoneb] 3 ml IH [id number] PRN inhsol 02/26/18 [Rx] Simethicone [Gas-X] 80 mg PO TID PRN tab.chew 02/26/18 [Rx] Brimonidine Tartrate/Timolol [Combigan 0.2%-0.5% Eye Drops] 1 drop BOTH EYES BID 03/07/18 [History] Gabapentin [Neurontin] 300 mg PO HS #5 capsule 03/24/18 [Rx] Pregabalin [Lyrica] 75 mg PO BID 5 Days #10 capsule 03/24/18 [Rx] clonazePAM [Klonopin] 0.5 mg PO BID PRN 5 Days #10 tablet 03/24/18 [Rx] 3 Allergy/AdvReac Type Severity Reaction Status Date / Time lisinopril [From Zestril] Allergy Rash Verified 01/17/18 13:50 All Systems PM: A 10-system review of systems was performed and is negative for pertinent findings except as documented above in the HPI. Review of systems: Constitutional: Reports fevers, denies chills HEENT: Denies headache, trauma, blurry vision, eye discharge, ear pain, ear discharge neck pain, sore throat, rhinorrhea Heart: Denies chest pain palpitations, reports lower extremity edema Lungs: Denies shortness of breath cough Abdomen: Denies abdominal pain nausea vomiting diarrhea MSK: Denies back pain, falls, joint pain Kidney: Denies dysuria, hematuria. Reports frequency Skin: Denies rash, reports right lower extremity ulcer and ulcer on the sacrum. Neuro: Reports peripheral neuropathy denies dizziness Psych: denies axniety, depression - Constitutional Vitals: Temp Pulse Resp BP Pulse Ox 98.2 F 71 15 117/56 95 04/06/18 17:06 04/06/18 22:10 04/06/18 22:10 04/06/18 22:10 04/06/18 22:10 Exam: General: pleasant, without distress HEENT: Head atraumatic, normocephalic, EOMI, PERRL, absent ear discharge or trauma, Moist Mucous Membranes, uvula midline Neck: nontender to palpation, absent lymphadenopathy, Cardiovascualr: Regular rate and rhythm with no murmur, absent gallops or rubs, 1+ pedal edema bilaterally, radial pulses 2 out of 4 Lungs: Clear to auscultation bilaterally, not in respiratory distress Abdomen: Soft nontender, nondistended positive bowel sounds, absent hepatomegaly Skin: Right heel ulcer, without purulent discharge, without surrounding erythema , without inflammation, wrapped in gauze. MSK: absent clubbing, cyanosis, joints without swelling Neuro: Cranial nerves II through XII intact, UE sensation intact and LE sensation diminished bilaterally, alert oriented 3 Psych: good insight and judgment absent anxiety, depression, Internal Med - H&P Results - Labs CBC & Chem 7: 04/06/18 20:28 04/06/18 20:28 Labs: Short CBC 04/06/18 Range/Units 20:28 WBC 15.8 H (4.3-11.1) K/mcL Hgb 9.6 L (11.5-15.4) g/dL Hct 30.2 L (35.3-44.9) % Plt Count 168 (140-400) K/mcL BMP 04/06/18 20:28 Sodium 135 L Potassium 5.9 H Chloride 94 L Carbon Dioxide 31 H BUN 100 H Creatinine 2.84 H Glucose 85 Calcium 8.5 L Urine 04/06/18 Range/Units 17:49 Urine Color Dark Yellow (Yellow) Urine Clarity TNP Urine pH TNP Ur Specific [place] TNP Urine Protein TNP Urine Glucose (UA) TNP - Assessment and plan (1) Severe sepsis Current Visit: Yes Status: Acute Assessment and plan: Patient presents with hypotension, and urine that is cloudy, thick, Patient reports fever at [facility]. Patient has elevated white blood cell count, AK I Lactic acid pending Secondary to suspected UTI He reports urinary frequency Received 2 L normal saline: We will refrain from giving more fluids as patient has history of CHF and has history of developing acute decompensated heart failure rapidly. Currently her blood pressure is 117/56. Patient has a history of UTIs: ESBL and VRE. we will await urine cultures (2) UTI (urinary tract infection) Current Visit: Yes Status: Acute Assessment and plan: Cultures sent urinalysis unable to be completed due to urine being very thick await culturs started on invanz 500mg IV daily creatinine clearance 21 Qualifiers: Urinary tract infection type: site unspecified Hematuria presence: without hematuria Qualified Code(s): N39.0 - Urinary tract infection, site not specified (3) History of congestive heart failure Current Visit: Yes Status: Acute Assessment and plan: Patient has a history of congestive heart failure diastolic. Dejesus echocardiogram on showed LVEF of 65% with normal left ventricular chamber size and function and mild left ventricular diastolic dysfunction We will continue her Lasix 40 mg twice a day. Currently her blood pressure is 117/80 (4) GERD (gastroesophageal reflux disease) Current Visit: Yes Status: Acute Assessment and plan: Patient has a history of gastric reflux disease with upper GI bleed Currently her hemoglobin is stable at 9.6 She denies hematochezia We will continue Protonix and Carafate. Qualifiers: Esophagitis presence: with esophagitis Qualified Code(s): K21.0 - Gastro- esophageal reflux disease with esophagitis (5) Diabetes mellitus Current Visit: Yes Status: Chronic Assessment and plan: Patient has a history of diabetes mellitus insulin-dependent Her last hemoglobin A1c was 5.7 We will start her on a cardiac ADA, renal diet Patient started on 28 units Levemir and 8 units insulin aspart Qualifiers: Diabetes mellitus type: type 2 Diabetes mellitus detention insulin use: with moth exterminator use Diabetes mellitus complication status: with skin complications Diabetes mellitus complication detail: with foot ulcer Qualified Code(s): E11.621 - Type 2 diabetes mellitus with foot ulcer; L97.509 - Non-pressure chronic ulcer of other part of unspecified foot with unspecified severity; Z79.4 - terminal block assembler (current) use of insulin (6) HLD (hyperlipidemia) Current Visit: Yes Status: Chronic Assessment and plan: Continue atorvastatin. Qualifiers: Hyperlipidemia type: other hyperlipidemia Qualified Code(s): E78.4 - Other hyperlipidemia (7) HTN (hypertension) Current Visit: Yes Status: Chronic Assessment and plan: Controlled Continue carvedilol Qualifiers: Hypertension type: essential hypertension Qualified Code(s): I10 - Essential (primary) hypertension (8) Hyperkalemia Current Visit: Yes Status: Acute Assessment and plan: Patient's presents with a potassium 5.9 in the presence of DOROTHEA She was given 2 L normal saline EKG normal sinus rhythm without peak T waves or increase QRS interval. Repeat BMP If still hyperkalemic we will order Kayexalate. (9) Diabetic foot ulcer Current Visit: Yes Status: Chronic Assessment and plan: RLE ulcer without inflammation, erythema, purulent discharge We will consult wound care During patient's previous admission ID examined patient and determined that she did not need any IV antibiotics as there were no signs of infection and her CT of the right lower extremity was negative for osteomyelitis. Qualifiers: Diabetic foot ulcer location: heel Diabetes mellitus type: type 2 Laterality: right Non-pressure ulcer stage: with muscle involvement without evidence of necrosis Qualified Code(s): E11.621 - Type 2 diabetes mellitus with foot ulcer; L97.415 - Non-pressure chronic ulcer of right heel and midfoot with muscle involvement without evidence of necrosis (10) History of COPD Current Visit: Yes Status: Acute Assessment and plan: History of COPD Not an exacerbation Continue DuoNeb's. - Time Spent With Patient Total time spent is greater than 50% in coordination of care (as documented) at patient's floor/unit and/or counseling patient: <Gregg Sawyer - Last Filed: 04/06/18 22:44> Date of Encounter: 04/06/18 Internal Medicine - H&P: HPI History of present illness: Ms. Magallanes is a 58 year old female All Systems PM: A 10-system review of systems was performed and is negative for pertinent findings except as documented above in the HPI. - Constitutional Vitals: Temp Pulse Resp BP Pulse Ox 98.2 F 71 15 117/56 95 04/06/18 17:06 04/06/18 22:10 04/06/18 22:10 04/06/18 22:10 04/06/18 22:10 Internal Med - H&P Results - Labs CBC & Chem 7: 04/06/18 20:28 04/06/18 20:28 Labs: Short CBC 04/06/18 Range/Units 20:28 WBC 15.8 H (4.3-11.1) K/mcL Hgb 9.6 L (11.5-15.4) g/dL Hct 30.2 L (35.3-44.9) % Plt Count 168 (140-400) K/mcL BMP 04/06/18 20:28 Sodium 135 L Potassium 5.9 H Chloride 94 L Carbon Dioxide 31 H BUN 100 H Creatinine 2.84 H Glucose 85 Calcium 8.5 L Urine 04/06/18 Range/Units 17:49 Urine Color Dark Yellow (Yellow) Urine Clarity TNP Urine pH TNP Ur Specific [place] TNP Urine Protein TNP Urine Glucose (UA) TNP - Time Spent With Patient Total time spent is greater than 50% in coordination of care (as documented) at patient's floor/unit and/or counseling patient: <Radha Nicholas - Last Filed: 04/07/18 07:58> Date of Encounter: 04/07/18 Internal Medicine - H&P: HPI History of present illness: Ms. Magallanes is a 58 year old female All Systems PM: A 10-system review of systems was performed and is negative for pertinent findings except as documented above in the HPI. - Constitutional Vitals: Temp Pulse Resp BP Pulse Ox 98.0 F 74 16 139/72 97 04/07/18 07:00 04/07/18 07:00 04/07/18 07:00 04/07/18 07:00 04/07/18 07:00 Internal Med - H&P Results - Labs CBC & Chem 7: 04/07/18 00:53 04/07/18 00:53 - Assessment and plan (1) UTI (urinary tract infection) Current Visit: Yes Status: Acute Qualifiers: Urinary tract infection type: site unspecified Hematuria presence: without hematuria Qualified Code(s): N39.0 - Urinary tract infection, site not specified (2) Diabetes mellitus Current Visit: Yes Status: Chronic Qualifiers: Diabetes mellitus type: type 2 Diabetes mellitus moth exterminator insulin use: with detention use Diabetes mellitus complication status: with skin complications Diabetes mellitus complication detail: with foot ulcer Qualified Code(s): E11.621 - Type 2 diabetes mellitus with foot ulcer; L97.509 - Non-pressure chronic ulcer of other part of unspecified foot with unspecified severity; Z79.4 - halfway (current) use of insulin (3) HTN (hypertension) Current Visit: Yes Status: Chronic Qualifiers: Hypertension type: essential hypertension Qualified Code(s): I10 - Essential (primary) hypertension (4) HLD (hyperlipidemia) Current Visit: Yes Status: Chronic Qualifiers: Hyperlipidemia type: other hyperlipidemia Qualified Code(s): E78.4 - Other hyperlipidemia (5) Diabetic foot ulcer Current Visit: Yes Status: Chronic Qualifiers: Diabetic foot ulcer location: heel Diabetes mellitus type: type 2 Laterality: right Non-pressure ulcer stage: with muscle involvement without evidence of necrosis Qualified Code(s): E11.621 - Type 2 diabetes mellitus with foot ulcer; L97.415 - Non-pressure chronic ulcer of right heel and midfoot with muscle involvement without evidence of necrosis (6) GERD (gastroesophageal reflux disease) Current Visit: Yes Status: Acute Qualifiers: Esophagitis presence: with esophagitis Qualified Code(s): K21.0 - Gastro- esophageal reflux disease with esophagitis (7) Hyperkalemia Current Visit: Yes Status: Acute (8) Severe sepsis Current Visit: Yes Status: Acute (9) History of congestive heart failure Current Visit: Yes Status: Acute (10) History of COPD Current Visit: Yes Status: Acute - Time Spent With Patient Total time spent is greater than 50% in coordination of care (as documented) at patient's floor/unit and/or counseling patient: - Attending Attestation Patient seen and examined. Case discussed with resident. Agree with assessment and plan. Continue with antibiotics for complicated UTI. Gentle hydration in the setting of previous history of sensitivity to volume overload.
[2018-04-06] MEDS ORDERED: Dextrose Gel 15 GM/37.5 ML TUBE PO PRN ×2 (22:28)
[2018-04-06] MEDS ORDERED: D5% in Water 1,000 ML IVC PRN (22:28)
[2018-04-06] MEDS ORDERED: *HR* Dextrose 50 % in Water (Syg) 50 ML SYRINGE IVP PRN (22:28)
--- NOTE | 2018-04-06 22:48 | Emergency Department Note ---
Disposition Clinical Impression: Hyperkalemia Altered mental status, unspecified Qualifiers: Altered mental status type: unspecified Qualified Code(s): R41.82 - Altered mental status, unspecified Urinary tract infection Qualifiers: Urinary tract infection type: site unspecified Hematuria presence: without hematuria Qualified Code(s): N39.0 - Urinary tract infection, site not specified Disposition: Admitted As Inpatient Condition: Good Time of Disposition: 21:00 General Adult HPI - General Chief complaint: ED Altered Mental Status Stated complaint: AMS Time Seen by Provider: 04/06/18 17:18 Source: patient, EMS Mode of arrival: EMS Limitations: no limitations Nursing Notes Reviewed: Yes Vital Signs Reviewed: Yes - History of Present Illness HPI Narrative: Patient was sent from the assisted for decreased level of responsiveness. Reportedly she had a blood pressure was also low. Patient has no complaints. She has been at the assisted for months. She has not had and therefore was. She is given wound care for a right heel ulcer that does not appear to be actively contributing to today's presentation. She has a history of bladder infection last emergency weeks ago. No fever no flank pain. Urine is noted be infected today. Likely responsible for her presentation. Due to her borderline low blood pressure and high potassium she will require admission. I spoke to the hospitalist prior to admission and accepted the patient. Onset (ago): hour(s) Radiation: non-radiation Pain Scale: 0 Consistency: constant Improves with: nothing Worsens with: nothing Associated symptoms: Reports: denies other symptoms - Related Data Home Medications Medication Instructions Recorded Confirmed Atorvastatin [Lipitor] 40 mg PO HS 01/11/16 03/21/18 Insulin ASPART [Novolog Flexpen] 6 - 14 unit SQ TID 01/11/16 03/21/18 Latanoprost [Xalatan] 1 drop BOTH EYES HS 01/11/16 03/21/18 Primidone [Mysoline] 50 mg PO BID PRN 01/11/16 03/21/18 Ascorbic Acid [Vitamin C] 500 mg PO BID 03/25/16 03/21/18 Docusate Sodium [Colace] 200 mg PO BID 03/25/16 03/21/18 Furosemide [Lasix] 40 mg PO BID 12/06/16 03/21/18 Ketoconazole 2% CRM [Nizoral Cream] 1 appl TP DAILY 11/10/17 03/21/18 Ketorolac Tromethamine 1 drop OP QID 11/10/17 03/21/18 Tizanidine HCl 4 mg PO TID 11/20/17 03/21/18 Ferrous Sulfate 325 mg PO BID 01/30/18 03/21/18 Loratadine [Allergy Relief] 10 mg PO DAILY 01/30/18 03/21/18 Pantoprazole Sodium [Protonix] 40 mg PO DAILY 01/30/18 03/21/18 Polyethylene Glycol 3350 [MiraLAX] 17 gm PO DAILY 01/30/18 03/21/18 Diltiazem CD (24hr) [Cardizem CD] 120 mg PO DAILY 02/20/18 03/21/18 Brimonidine Tartrate/Timolol 1 drop BOTH EYES BID 03/07/18 03/21/18 [Combigan 0.2%-0.5% Eye Drops] Previous Rx's Medication Instructions Recorded Fluticasone Propionate Nasal 2 spray NS DAILY #1 bottle 08/28/17 [Flonase] Calcium Carbonate [Tums] 1,000 mg PO Q4HR PRN tab.chew 11/24/17 Carvedilol [Coreg] 6.25 mg PO BIDWM tablet 11/24/17 Lactobacillus Acidophilus 1 each PO BID #10 capsule 11/24/17 [Acidophilus] Sucralfate [Carafate] 1 gm PO 0730,1630 30 Days #60 02/16/18 tablet Insulin DETEMIR [Levemir] 30 unit SQ HS [id number] 02/26/18 Ipratropium/Albuterol Neb [Duoneb] 3 ml IH [id number] PRN inhsol 02/26/18 Simethicone [Gas-X] 80 mg PO TID PRN tab.chew 02/26/18 Gabapentin [Neurontin] 300 mg PO HS #5 capsule 03/24/18 Pregabalin [Lyrica] 75 mg PO BID 5 Days #10 capsule 03/24/18 clonazePAM [Klonopin] 0.5 mg PO BID PRN 5 Days #10 tablet 03/24/18 Allergies Allergy/AdvReac Type Severity Reaction Status Date / Time lisinopril [From Zestril] Allergy Rash Verified 01/17/18 13:50 Review of Systems: As Per HPI Constitutional: Reports: weakness Eyes: Denies: eye pain, eye discharge, vision change ENT ED: Denies: ear pain, throat pain, dental pain, hearing loss, epistaxis, congestion, dysphagia Cardiovascular: Denies: chest pain, palpitations, dyspnea on exertion, edema, syncope Respiratory: Denies: cough, dyspnea, wheezes, hemoptysis, stridor Gastrointestinal: Denies: abdominal pain, nausea, vomiting, diarrhea, constipation, hematemesis, melena, hematochezia Genitourinary: Denies: dysuria, frequency, hematuria, discharge Musculoskeletal: Denies: back pain, neck pain, arthralgia, myalgia Integumentary: Denies: rash, abrasion, lesions Neurological: Denies: headache, weakness, numbness, paresthesias, confusion, abnormal gait, vertigo Psychiatric: Denies: anxiety, depression, suicidal thoughts, homicidal thoughts , auditory hallucinations, visual hallucinations Endocrine: Denies: fatigue Hematological/Lymphatic: Denies: easy bleeding, easy bruising Allergic/Immunologic: Denies: facial swelling, urticaria Past Medical History - Past Medical History Medical history: Reports: CHF, COPD, diabetes, hyperlipidemia, hypertension, other Surgical history: Reports: hysterectomy, other Psychiatric history: Reports: depression OPHTHALMIC TECHNOLOGIST history: Reports: no OPHTHALMIC TECHNOLOGIST history - Social History Smoking Status: Never smoker Smokeless Tobacco Status: No Alcohol use: Reports: none Drug use: Reports: none Physical Exam - General Limitations: no limitations General appearance: alert, in no apparent distress - Head Head exam: atraumatic, normocephalic, normal inspection - Eye Eye exam: Present: normal appearance, PERRL, EOMI - Expanded Eye Exam Pupils: Left: reactive - ENT ENT exam: normal exam, normal oropharynx, mucous membranes moist - Expanded ENT Exam External ear exam: Present: normal external inspection Mouth exam: Present: normal external inspection Teeth exam: Present: normal inspection Throat exam: Present: normal inspection - Neck Neck exam: Present: normal inspection, full ROM, trachea midline - Chest Chest inspection: Present: normal inspection, symmetric chest wall rise - Respiratory Respiratory exam: Present: normal lung sounds bilaterally - Cardiovascular Cardiovascular exam: Present: regular rate, normal rhythm, normal heart sounds - Abdominal Exam Abdominal exam: Present: soft, Non-Tender - Extremities Exam Extremities exam: Absent: tenderness, calf tenderness - Expanded Upper Extremity Exam Shoulder exam: Present: normal inspection, full ROM Arm exam: Present: normal inspection, full ROM Elbow exam: Present: normal inspection, full ROM Forearm/Wrist exam: Present: normal inspection, full ROM Hand exam: Present: normal inspection, full ROM Vascular exam: Normal: capillary refill, radial pulse - Expanded Lower Extremity Exam Hip/Pelvis exam: Present: normal inspection, full ROM Upper leg exam: Present: normal inspection, full ROM Knee exam: Present: normal inspection, full ROM Lower leg exam: Present: normal inspection, full ROM Ankle exam: Present: normal inspection, full ROM Foot/toe exam: Present: normal inspection, full ROM Neurovascular/Tendon exam: Absent: motor deficit, sensory deficit, tendon deficit - Back Exam Back exam: Present: normal inspection, full ROM. Absent: tenderness - Neurological Exam Neurological exam: Present: alert, oriented X3 - Expanded Neurological Exam Patient oriented to: Present: person, place, time Coma Scale Eye Opening: Spontaneous Coma Scale Motor Response: Obeys Commands Coma Scale Verbal Response: Oriented Coma Scale Total: 15 - Psychiatric Psychiatric exam: Present: normal affect, normal mood - Skin Skin exam: Present: warm, dry, intact, normal color Course Vital Signs Temperature 98.2 F 04/06/18 17:06 Pulse Rate 72 04/06/18 17:06 Respiratory Rate 16 04/06/18 17:06 Blood Pressure 109/58 04/06/18 17:06 O2 Sat by Pulse Oximetry 99 04/06/18 17:06 Temperature 98.2 F 04/06/18 17:06 Pulse Rate 71 04/06/18 22:10 Respiratory Rate 15 04/06/18 22:10 Blood Pressure 117/56 04/06/18 22:10 O2 Sat by Pulse Oximetry 95 04/06/18 22:10 Oxygen Delivery Oxygen Delivery Nasal Cannula Medical Decision Making - Lab Data Result diagrams: 04/06/18 20:28 04/06/18 20:28 Lab Results 04/06/18 04/06/18 04/06/18 Range/Units 17:49 20:28 20:28 WBC 15.8 H (4.3-11.1) K/mcL RBC 3.51 L (3.82-4.97) M/mcL Hgb 9.6 L (11.5-15.4) g/dL Hct 30.2 L (35.3-44.9) % MCV 86.0 (83.0-100.0) fL MCH 27.4 L (28.0-33.3) pg MCHC 31.8 (31.6-35.5) g/dL RDW 15.2 H (11.5-14.5) % Plt Count 168 (140-400) K/mcL MPV 13.2 H (9.4-12.4) fL Sodium 135 L (136-145) mEq/L Potassium 5.9 H (3.5-5.1) mEq/L Chloride 94 L (98-107) mEq/L Carbon Dioxide 31 H (23-29) mEq/L BUN 100 H (6-20) mg/dL Creatinine 2.84 H (0.60-1.20) mg/dL Est GFR ( Amer) 21 L (> 60) Est GFR (Non-Af Amer) 17 L (> 60) BUN/Creatinine Ratio 35 H (6-26) Glucose 85 (70-105) mg/dL Calculated Osmolality 310 H (280-300) Calcium 8.5 L (8.6-10.3) mg/dL Ur Specimen Adequacy See below A Urine Color Dark Yellow (Yellow) Urine Clarity TNP Urine pH TNP Ur Specific [place] TNP Urine Protein TNP Urine Glucose (UA) TNP Urine Ketones TNP Urine Blood TNP Urine Nitrite TNP Urine Bilirubin TNP Urine Urobilinogen TNP Ur Leukocyte Esterase TNP Urine Microscopic WBC TNTC H (0-3) per hpf Urine Bacteria Present (None-Few) per hpf
[2018-04-06] MEDS ORDERED: 0.9 % Sodium Chloride 1,000 ML IVC SCH (23:45)
[2018-04-07 01:34] LABS: Basophils % 0.3 %; Eosinophils # 0.3 K/mcL (0.0-0.6); Eosinophils % 2.2 %; Hemoglobin 9.7 g/dL (11.5-15.4); Immature Granulocytes % 0.7 % (0-4); Lymphocytes # 2.5 K/mcL (0.6-4.6); Lymphocytes % 17.3 %; Mean Corpuscular HGB Conc 31.3 g/dL (31.6-35.5); Mean Corpuscular Hemoglobin 27.2 pg (28.0-33.3); Mean Corpuscular Volume 87.1 fL (83.0-100.0); Mean Platelet Volume 14.1 fL (9.4-12.4); Monocytes # 0.7 K/mcL (0.0-1.3); Monocytes % 4.6 %; Neutrophils # 10.8 K/mcL (1.6-8.9); Platelet Count 160 K/mcL (140-400); Red Blood Count 3.56 M/mcL (3.82-4.97); Red Cell Distribution Width 15.1 % (11.5-14.5); Segmented Neutrophils % 74.9 %
[2018-04-07] MEDS ORDERED: Naloxone 0.4 MG/ML INJ IVP PRN (01:54)
[2018-04-07] MEDS ORDERED: 0.9 % Sodium Chloride 500 ML IVC SCH (02:00)
[2018-04-07 02:09] LABS: Albumin 2.9 g/dL (3.5-5.7); Albumin/Globulin Ratio 0.7 (1.1-2.2); Bilirubin,Total 0.2 mg/dL (0.3-1.0); Calcium 8.6 mg/dL (8.6-10.3); Globulin 4.3 g/dL (2.4-3.5); Magnesium 1.8 mg/dL (1.6-2.6); Phosphorous 6.7 mg/dL (2.7-4.5); Potassium 5.6 mEq/L (3.5-5.1); Total Protein 7.2 g/dL (6.4-8.9)
[2018-04-07] MEDS: *HR* Heparin 5,000 UNIT/ML VIAL SQ SCH ×3 (06:33→21:00)
[2018-04-07] MEDS: Insulin LISPRO 300 UNITS/3 ML VIAL SQ SCH ×7 (08:39→20:41)
[2018-04-07] MEDS: Loratadine 10 MG TABLET PO SCH (08:40)
[2018-04-07] MEDS: tiZANidine 4 MG TABLET PO SCH ×3 (08:40→21:00)
[2018-04-07] MEDS: Sucralfate 1 GM TABLET PO SCH ×2 (08:40→17:14)
[2018-04-07] MEDS: Pantoprazole 40 MG VIAL IVP SCH (08:41)
[2018-04-07] MEDS ORDERED: Furosemide 40 MG TABLET PO SCH (09:00)
[2018-04-07] MEDS: Ketoconazole 2% CRM 15 GM TUBE TP SCH (09:25)
--- NOTE | 2018-04-07 13:04 | Internal Med Progress Note ---
Hospitalist Progress Note - Encounter Date of Encounter: 04/07/18 Time of Encounter: 13:04 - Subjective Interval History: Ms Magallanes is currently admitted for encephalopathy due to UTI. She remains moderate to high risk due to potential for worsening clinical status. Ms Magallanes is eating lunch. She denies CP or SOB. No fever or chills. No GI issues at this time. Potassium as been elevated and creatinine is higher than baseline. - Exam Vitals: Temp Pulse Resp BP Pulse Ox 98.0 F 70 16 100/59 97 04/07/18 11:44 04/07/18 11:44 04/07/18 11:44 04/07/18 11:44 04/07/18 11:44 Exam: General: Alert. Appears to be oriented. Comfortable at this time. Skin: Normal color, no rash, no lesions. H: Normocephalic. EENT: EOMI, pupils equal, reactive. Mucus membranes moist. No lesion. Cardiovascular: Normal S1 & S2, no rubs, murmurs or gallops. No JVD. Distant heart sounds. Lungs: Normal breath sounds, very diminished anteriorly and laterally. Abdomen: Soft, non-tender, no rigidity. Normal bowel sounds. Extremities: No deformity, no joint swelling or clubbing. Neurological: Moves all extremities. Pulses: Carotid and radial pulses normal +2. Rest of the physical exam is non contributory - Assessment and Plan (1) Acute metabolic encephalopathy Current Visit: Yes Status: Acute Assessment and Plan: Due to acute illness Seems to be slowly improving. (2) UTI (urinary tract infection) Current Visit: Yes Status: Acute Assessment and Plan: Repeat urinalysis today. Hx of ESBL in February. Currently on Invanz. (3) Hyperkalemia Current Visit: Yes Status: Acute Assessment and Plan: Patient's presents with a potassium 5.9 in the presence of DOROTHEA She was given 2 L normal saline Kayexalate and recheck ordered (4) Diabetes mellitus Current Visit: Yes Status: Chronic Assessment and Plan: Patient has a history of diabetes mellitus insulin-dependent Her last hemoglobin A1c was 5.7 On a cardiac ADA, renal diet Patient started on 28 units Levemir and 8 units insulin aspart (5) HTN (hypertension) Current Visit: Yes Status: Chronic Assessment and Plan: Controlled Continue carvedilol (6) HLD (hyperlipidemia) Current Visit: Yes Status: Chronic Assessment and Plan: Continue atorvastatin. (7) Diabetic foot ulcer Current Visit: Yes Status: Chronic Assessment and Plan: RLE ulcer without inflammation, erythema, purulent discharge consult wound care During patient's previous admission ID examined patient and determined that she did not need any IV antibiotics as there were no signs of infection and her CT of the right lower extremity was negative for osteomyelitis. Continue monitoring for now. (8) GERD (gastroesophageal reflux disease) Current Visit: Yes Status: Chronic Assessment and Plan: Patient has a history of gastric reflux disease with upper GI bleed Currently her hemoglobin is stable She denies hematochezia or other symptoms We will continue Protonix and Carafate. (9) Severe sepsis Current Visit: Yes Status: Acute Assessment and Plan: Patient presents with hypotension, and urine that is cloudy, thick, Patient reports fever at longterm. Patient has elevated white blood cell count, AK I Lactic acid negative Secondary to suspected UTI SHe reports urinary frequency Received 2 L normal saline: No further fluids needed. Patient has a history of UTIs: ESBL and VRE. we will await urine cultures (10) REGINALD treated with BiPAP Current Visit: No Status: Chronic Assessment and Plan: Continue CPAP (11) Morbid obesity Current Visit: No Status: Chronic Assessment and Plan: Chronic issue - Time Spent with Patient Total time spent is greater than 50% in coordination of care (as documented) at patient's floor/unit and/or counseling patient: Internal Medicine: Result - Labs CBC & Chem 7: 04/07/18 00:53 04/07/18 00:53 Consult Discharge Plan - Plan Referrals: Jc Tsai MD [Primary Care Provider] - (2) UTI (urinary tract infection) Qualifiers: Urinary tract infection type: acute cystitis Hematuria presence: without hematuria Qualified Code(s): N30.00 - Acute cystitis without hematuria (4) Diabetes mellitus Qualifiers: Diabetes mellitus type: type 2 Diabetes mellitus rn long term care insulin use: with rn long term care use Diabetes mellitus complication status: with skin complications Diabetes mellitus complication detail: with foot ulcer Qualified Code(s): E11.621 - Type 2 diabetes mellitus with foot ulcer; L97.509 - Non-pressure chronic ulcer of other part of unspecified foot with unspecified severity; Z79.4 - halfway (current) use of insulin (5) HTN (hypertension) Qualifiers: Hypertension type: essential hypertension Qualified Code(s): I10 - Essential (primary) hypertension (6) HLD (hyperlipidemia) Qualifiers: Hyperlipidemia type: mixed hyperlipidemia Qualified Code(s): E78.2 - Mixed hyperlipidemia (7) Diabetic foot ulcer Qualifiers: Diabetic foot ulcer location: heel Diabetes mellitus type: type 2 Laterality : right Non-pressure ulcer stage: with muscle involvement without evidence of necrosis Qualified Code(s): E11.621 - Type 2 diabetes mellitus with foot ulcer ; L97.415 - Non-pressure chronic ulcer of right heel and midfoot with muscle involvement without evidence of necrosis (8) GERD (gastroesophageal reflux disease) Qualifiers: Esophagitis presence: with esophagitis Qualified Code(s): K21.0 - Gastro- esophageal reflux disease with esophagitis
[2018-04-07 17:22] LABS: Bilirubin,Urine Negative (Negative); Blood,Urine Small (Negative); Clarity,Urine Turbid (Clear); Color,Urine Yellow (Yellow); Glucose,Urine (UA) Normal (Normal); Ketones,Urine Negative (Negative); Leukocyte Esterase,Urine Large (Negative); Nitrite,Urine Negative (Negative); Protein,Urine 100 mg/dL (Neg-Trace); Specific Gravity,Urine 1.018 (1.010-1.025); Urobilinogen,Urine Normal (Normal)
[2018-04-07 17:24] LABS: Bacteria,Urine None Seen per hpf (None-Few); Hyaline Casts,Urine None Seen per lpf (None-Few); RBC,Urine 50-100 per hpf (0-3); Squamous Epithelial Cell,Urine Moderate per lpf (None-Few); WBC,Urine TNTC per hpf (0-3)
[2018-04-07] MEDS ORDERED: Simethicone 80 MG TAB.CHEW PO PRN (18:37)
[2018-04-07] MEDS ORDERED: Primidone 50 MG TABLET PO PRN (18:37)
[2018-04-07] MEDS ORDERED: clonazePAM 0.5 MG TABLET PO PRN (18:37)
[2018-04-07] MEDS: Insulin DETEMIR 100 UNIT/ML X5UNITS SQ SCH (20:41)
[2018-04-07] MEDS: Lactobacillus 1 EACH CAP.SPRINK PO SCH (21:00)
[2018-04-07] MEDS ORDERED: NON-FORMULARY MEDICATION 1 EACH EACH (Brimonidine Tartrate/Timolol [Combigan 0.2%-0.5% Eye BOTH EYES SCH (21:00)
[2018-04-07] MEDS: Gabapentin 300 MG CAPSULE PO SCH (21:00)
[2018-04-08] MEDS: Latanoprost 2.5 ML BOTTLE BOTH EYES SCH ×2 (00:05→23:11)
[2018-04-08] MEDS: *HR* Heparin 5,000 UNIT/ML VIAL SQ SCH ×3 (05:41→22:20)
[2018-04-08 05:43] LABS: Hematocrit 28.5 % (35.3-44.9); Hemoglobin 8.6 g/dL (11.5-15.4); Mean Corpuscular HGB Conc 30.2 g/dL (31.6-35.5); Mean Corpuscular Hemoglobin 26.7 pg (28.0-33.3); Mean Corpuscular Volume 88.5 fL (83.0-100.0); Mean Platelet Volume 13.1 fL (9.4-12.4); Platelet Count 165 K/mcL (140-400); Red Blood Count 3.22 M/mcL (3.82-4.97); Red Cell Distribution Width 14.9 % (11.5-14.5)
[2018-04-08 06:03] LABS: Calcium 8.8 mg/dL (8.6-10.3); Magnesium 1.7 mg/dL (1.6-2.6); Potassium 4.5 mEq/L (3.5-5.1)
[2018-04-08] MEDS: Insulin LISPRO 300 UNITS/3 ML VIAL SQ SCH ×7 (08:56→22:12)
[2018-04-08] MEDS: tiZANidine 4 MG TABLET PO SCH ×3 (09:06→22:12)
[2018-04-08] MEDS: Lactobacillus 1 EACH CAP.SPRINK PO SCH ×2 (09:06→22:09)
[2018-04-08] MEDS: Sucralfate 1 GM TABLET PO SCH ×2 (09:06→17:41)
[2018-04-08] MEDS: Pantoprazole 40 MG VIAL IVP SCH (09:06)
[2018-04-08] MEDS: Diltiazem CD (24hr) 120 MG CAPSULE PO SCH (09:06)
[2018-04-08] MEDS: Loratadine 10 MG TABLET PO SCH (09:06)
[2018-04-08] MEDS ORDERED: Furosemide 40 MG/4 ML VIAL IVP ONE (10:08)
[2018-04-08] MEDS: Fluticasone Propionate Nasal 50 MCG/SPRAY BOTTLE NS SCH (12:16)
[2018-04-08] MEDS: Ketoconazole 2% CRM 15 GM TUBE TP SCH (12:17)
--- NOTE | 2018-04-08 16:52 | Internal Med Progress Note ---
Hospitalist Progress Note - Encounter Date of Encounter: 04/08/18 Time of Encounter: 17:00 - Subjective Interval History: SUBJECTIVE: The patient feels better. She is stronger. Denies difficulty breathing; using supplemental oxygen at 4 L/min. She was not using oxygen at the halfway facility. Denies chest pain, coughing and wheezing. Denies abdominal pain, nausea and vomiting. She makes fair amounts of urine. OBJECTIVE: Skin: Free of rash and discoloration. ENMT: Oral/pharyngeal mucosa is normal in appearance. Eyes: Sclera is white. There is no discharge from eyes. Respiratory: Normal breath sounds; no crackles or wheezes. CV: Heart is regular; no gallop or murmur. GI: Abdomen is soft and not tender. There is no palpable mass or visceromegaly. Neuro: There is no focal deficits. Her hemoglobin is 8.6; 9.6 at the admission. WBCs 8.9 thousand; 15.8 thousand at admission. Potassium is 4.5; 5.9 at the admission. Creatinine is 2.60; 2.84 at the admission and 1.20 on 03/28/18. Her UA shows changes typical of urinary tract infection. Her chest x-ray shows changes typical for pulmonary congestion. ASSESSMENT AND PLAN: The patient was admitted with sepsis, likely secondary to urinary tract infection. She is treated for the diabetic ulcer of her right foot. I will consult the wound care. She got IV fluids. We started her on ertapenem. I am adding IV vancomycin. She is getting supplemental oxygen. She does have acute on chronic diastolic heart failure and the acute hypoxic respiratory failure. I will start her on IV Lasix. She is getting supplemental oxygen. Hyperkalemia resolved. Type 2 diabetes mellitus/hypertension/hyperlipidemia. I would continue diabetic diet with insulin Levemir and when necessary insulin Humalog. Her Coreg is on hold. I will continue Cardizem CD and Lipitor. DISPOSITION: Xxxxx - Exam Vitals: Temp Pulse Resp BP Pulse Ox 97.7 F 69 18 120/54 97 04/08/18 14:59 04/08/18 14:59 04/08/18 14:59 04/08/18 14:59 04/08/18 14:59 Exam: xx - Assessment and Plan (1) Severe sepsis Current Visit: Yes Status: Acute (2) UTI (urinary tract infection) Current Visit: Yes Status: Acute (3) Acute kidney injury Current Visit: Yes Status: Acute (4) Hyperkalemia Current Visit: Yes Status: Acute (5) Acute on chronic diastolic heart failure Current Visit: No Status: Acute (6) Acute respiratory failure with hypoxia Current Visit: Yes Status: Acute (7) Diabetes mellitus Current Visit: Yes Status: Chronic (8) HTN (hypertension) Current Visit: Yes Status: Chronic (9) HLD (hyperlipidemia) Current Visit: Yes Status: Chronic (10) GERD (gastroesophageal reflux disease) Current Visit: Yes Status: Chronic (11) REGINALD treated with BiPAP Current Visit: No Status: Chronic (12) Morbid obesity with BMI of 45.0-49.9, adult Current Visit: Yes Status: Acute - Time Spent with Patient Total time spent is greater than 50% in coordination of care (as documented) at patient's floor/unit and/or counseling patient: 25 - 35 minutes Plan of Care Discussed with: patient Internal Medicine: Result - Labs CBC & Chem 7: 04/08/18 05:25 04/08/18 05:25 Labs: Short CBC 04/08/18 Range/Units 05:25 WBC 8.9 (4.3-11.1) K/mcL Hgb 8.6 L (11.5-15.4) g/dL Hct 28.5 L (35.3-44.9) % Plt Count 165 (140-400) K/mcL BMP 04/07/18 04/08/18 19:49 05:25 Sodium 142 Potassium 4.9 4.5 Chloride 101 Carbon Dioxide 31 H BUN 96 H Creatinine 2.60 H Glucose 95 Calcium 8.8 Urine 04/07/18 Range/Units 17:10 Urine Color Yellow (Yellow) Urine Clarity Turbid A (Clear) Urine pH 6.0 (5.0-8.0) pH Units Ur Specific [place] 1.018 (1.010-1.025) Urine Protein 100 H (Neg-Trace) mg/dL Urine Glucose (UA) Normal (Normal) mg/dL Consult Discharge Plan - Plan Referrals: Jc Tsai MD [Primary Care Provider] - (2) UTI (urinary tract infection) Qualifiers: Urinary tract infection type: acute cystitis Hematuria presence: without hematuria Qualified Code(s): N30.00 - Acute cystitis without hematuria (7) Diabetes mellitus Qualifiers: Diabetes mellitus type: type 2 Diabetes mellitus jail insulin use: with jail use Diabetes mellitus complication status: with skin complications Diabetes mellitus complication detail: with foot ulcer Qualified Code(s): E11.621 - Type 2 diabetes mellitus with foot ulcer; L97.509 - Non-pressure chronic ulcer of other part of unspecified foot with unspecified severity; Z79.4 - intermediate card tender (current) use of insulin (8) HTN (hypertension) Qualifiers: Hypertension type: essential hypertension Qualified Code(s): I10 - Essential (primary) hypertension (9) HLD (hyperlipidemia) Qualifiers: Hyperlipidemia type: mixed hyperlipidemia Qualified Code(s): E78.2 - Mixed hyperlipidemia (10) GERD (gastroesophageal reflux disease) Qualifiers: Esophagitis presence: with esophagitis Qualified Code(s): K21.0 - Gastro- esophageal reflux disease with esophagitis
[2018-04-08] MEDS: Gabapentin 300 MG CAPSULE PO SCH (22:12)
[2018-04-08] MEDS: Insulin DETEMIR 100 UNIT/ML X5UNITS SQ SCH (22:20)
[2018-04-09] MEDS: *HR* Heparin 5,000 UNIT/ML VIAL SQ SCH ×3 (05:19→21:52)
[2018-04-09] MEDS ORDERED: Aminoglycoside Consult 1 EACH MC ONE (07:59)
[2018-04-09] MEDS: Insulin LISPRO 300 UNITS/3 ML VIAL SQ SCH ×7 (08:38→21:58)
[2018-04-09] MEDS: Diltiazem CD (24hr) 120 MG CAPSULE PO SCH (08:54)
[2018-04-09] MEDS: Fluticasone Propionate Nasal 50 MCG/SPRAY BOTTLE NS SCH (08:54)
[2018-04-09] MEDS: Pantoprazole 40 MG VIAL IVP SCH (08:54)
[2018-04-09] MEDS: Loratadine 10 MG TABLET PO SCH (08:54)
[2018-04-09] MEDS: Sucralfate 1 GM TABLET PO SCH ×2 (08:54→16:51)
[2018-04-09] MEDS: tiZANidine 4 MG TABLET PO SCH ×3 (08:54→21:52)
[2018-04-09] MEDS: Lactobacillus 1 EACH CAP.SPRINK PO SCH ×2 (08:54→21:51)
[2018-04-09] MEDS: Ketoconazole 2% CRM 15 GM TUBE TP SCH (08:56)
[2018-04-09 09:08] LABS: Calcium 8.9 mg/dL (8.6-10.3); Magnesium 1.8 mg/dL (1.6-2.6); Potassium 4.6 mEq/L (3.5-5.1)
[2018-04-09] MEDS: Insulin DETEMIR 100 UNIT/ML X5UNITS SQ SCH (21:51)
[2018-04-09] MEDS: Gabapentin 300 MG CAPSULE PO SCH (21:52)
[2018-04-09] MEDS: Latanoprost 2.5 ML BOTTLE BOTH EYES SCH (22:00)
--- NOTE | 2018-04-09 23:38 | Internal Med Progress Note ---
Hospitalist Progress Note - Encounter Date of Encounter: 04/09/18 Time of Encounter: 19:00 - Subjective Interval History: SUBJECTIVE: The patient is stronger. She seems to have normal appetite. She is using supplemental oxygen at 3 liter/minute; 4 liter/minute yesterday. Denies chest pain. Denies coughing and wheezing. The patient was not using oxygen at the intermediate. OBJECTIVE: Skin: Free of rash and discoloration. ENMT: Oral/pharyngeal mucosa is normal in appearance. Eyes: Sclera is white. There is no discharge from eyes. Respiratory: Normal breath sounds; no crackles or wheezes. CV: Heart is regular; no gallop or murmur. GI: Abdomen is soft and not tender. There is no palpable mass or visceromegaly. Neuro: There is no focal deficits. Her hemoglobin is 8.6; 9.6 at the admission. WBCs 8.9 thousand; 15.8 thousand at admission. Potassium is 4.5; 5.9 at the admission. Creatinine is 2.60; 2.84 at the admission and 1.20 on 03/28/18. Her UA shows changes typical of urinary tract infection. Her chest x-ray shows changes typical for pulmonary congestion. Chest x-ray from today continues to show bilateral airspace opacities. She has stable bilateral pleural effusions with possible underlying atelectasis or infiltrates. ASSESSMENT AND PLAN: The patient was admitted with sepsis, likely secondary to urinary tract infection. She is treated for the diabetic ulcer of her right foot. Wound care has been consulted. She got IV fluids (they have been stopped). We started her on ertapenem. I am stopping IV vancomycin. She got significantly better on ertapenem. She is getting supplemental oxygen. She does have acute on chronic diastolic heart failure and the acute hypoxic respiratory failure. I will continue IV Lasix. She is getting supplemental oxygen. Hyperkalemia resolved. Type 2 diabetes mellitus/hypertension/hyperlipidemia. I would continue diabetic diet with insulin Levemir and when necessary insulin Humalog. Her Coreg is on hold. I will continue Cardizem CD and Lipitor. - Exam Vitals: Temp Pulse Resp BP Pulse Ox 98.7 F 89 16 148/75 93 04/09/18 18:44 04/09/18 18:44 04/09/18 18:44 04/09/18 18:44 04/09/18 18:44 Exam: xx - Assessment and Plan (1) Severe sepsis Current Visit: Yes Status: Acute (2) UTI (urinary tract infection) Current Visit: Yes Status: Acute (3) Acute kidney injury Current Visit: Yes Status: Acute (4) Hyperkalemia Current Visit: Yes Status: Acute (5) Acute on chronic diastolic heart failure Current Visit: No Status: Acute (6) Acute respiratory failure with hypoxia Current Visit: Yes Status: Acute (7) Diabetes mellitus Current Visit: Yes Status: Chronic (8) HTN (hypertension) Current Visit: Yes Status: Chronic (9) HLD (hyperlipidemia) Current Visit: Yes Status: Chronic (10) GERD (gastroesophageal reflux disease) Current Visit: Yes Status: Chronic (11) REGINALD treated with BiPAP Current Visit: No Status: Chronic (12) Morbid obesity with BMI of 45.0-49.9, adult Current Visit: Yes Status: Acute - Time Spent with Patient Total time spent is greater than 50% in coordination of care (as documented) at patient's floor/unit and/or counseling patient: 25 - 35 minutes Plan of Care Discussed with: patient Internal Medicine: Result - Labs CBC & Chem 7: 04/08/18 05:25 04/09/18 08:31 Labs: BMP 04/09/18 08:31 Sodium 142 Potassium 4.6 Chloride 100 Carbon Dioxide 34 H BUN 83 H Creatinine 2.22 H Glucose 86 Calcium 8.9 - Impressions Impressions Chest X-Ray 04/09/18 09:30 IMPRESSION: No significant change in bilateral airspace opacities which may represent multifocal pneumonia or pulmonary edema. Stable bilateral pleural effusions with probable underlying atelectasis or infiltrates. D/ / Denisse Antony MD / Denisse Antony MD Interpreting Provider: Denisse Antony MD Consult Discharge Plan - Plan Referrals: Jc Tsai MD [Primary Care Provider] - (2) UTI (urinary tract infection) Qualifiers: Urinary tract infection type: acute cystitis Hematuria presence: without hematuria Qualified Code(s): N30.00 - Acute cystitis without hematuria (7) Diabetes mellitus Qualifiers: Diabetes mellitus type: type 2 Diabetes mellitus shelter insulin use: with exterminator helper use Diabetes mellitus complication status: with skin complications Diabetes mellitus complication detail: with foot ulcer Qualified Code(s): E11.621 - Type 2 diabetes mellitus with foot ulcer; L97.509 - Non-pressure chronic ulcer of other part of unspecified foot with unspecified severity; Z79.4 - rodent exterminator (current) use of insulin (8) HTN (hypertension) Qualifiers: Hypertension type: essential hypertension Qualified Code(s): I10 - Essential (primary) hypertension (9) HLD (hyperlipidemia) Qualifiers: Hyperlipidemia type: mixed hyperlipidemia Qualified Code(s): E78.2 - Mixed hyperlipidemia (10) GERD (gastroesophageal reflux disease) Qualifiers: Esophagitis presence: with esophagitis Qualified Code(s): K21.0 - Gastro- esophageal reflux disease with esophagitis
[2018-04-10] MEDS: *HR* Heparin 5,000 UNIT/ML VIAL SQ SCH ×3 (06:34→21:39)
[2018-04-10] MEDS: Sucralfate 1 GM TABLET PO SCH ×2 (06:34→16:55)
[2018-04-10 07:31] LABS: Hematocrit 28.9 % (35.3-44.9); Hemoglobin 8.8 g/dL (11.5-15.4); Mean Corpuscular HGB Conc 30.4 g/dL (31.6-35.5); Mean Corpuscular Hemoglobin 26.6 pg (28.0-33.3); Mean Corpuscular Volume 87.3 fL (83.0-100.0); Mean Platelet Volume 12.4 fL (9.4-12.4); Platelet Count 148 K/mcL (140-400); Red Blood Count 3.31 M/mcL (3.82-4.97); Segmented Neutrophils % 64.1 %
[2018-04-10 07:32] LABS: Basophils # 0.1 K/mcL (0.0-0.2); Basophils % 0.6 %; Eosinophils # 0.2 K/mcL (0.0-0.6); Eosinophils % 2.1 %; Immature Granulocytes % 0.4 % (0-4); Lymphocytes % 26.2 %; Monocytes # 0.5 K/mcL (0.0-1.3); Monocytes % 6.6 %
[2018-04-10 07:51] LABS: Calcium 9.4 mg/dL (8.6-10.3); Magnesium 1.9 mg/dL (1.6-2.6); Potassium 4.1 mEq/L (3.5-5.1)
[2018-04-10 07:54] LABS: Lymphocytes # 2.2 K/mcL (0.6-4.6); Neutrophils # 5.3 K/mcL (1.6-8.9)
[2018-04-10] MEDS: Lactobacillus 1 EACH CAP.SPRINK PO SCH ×2 (09:59→21:39)
[2018-04-10] MEDS: Diltiazem CD (24hr) 120 MG CAPSULE PO SCH (09:59)
--- NOTE | 2018-04-10 09:59 | Internal Med Progress Note ---
Hospitalist Progress Note - Encounter Date of Encounter: 04/10/18 Time of Encounter: 10:00 - Subjective Interval History: No acute events overnight - Exam Vitals: Temp Pulse Resp BP Pulse Ox 97.6 F 91 16 156/83 95 04/10/18 07:25 04/10/18 07:25 04/10/18 07:25 04/10/18 07:04/10/18 08:10 Exam: General: Alert. Appears to be oriented. Comfortable at this time. Skin: Normal color, no rash, no lesions. Head: Normocephalic. EENT: EOMI, pupils equal, reactive. Mucus membranes moist. No lesion. Cardiovascular: Normal S1 & S2, no rubs, murmurs or gallops. No JVD. Distant heart sounds. Lungs: Normal breath sounds, very diminished anteriorly and laterally. Abdomen: Soft, non-tender, no rigidity. Normal bowel sounds. Extremities: No deformity, no joint swelling or clubbing. Neurological: Moves all extremities. Pulses: Carotid and radial pulses normal +2. - Assessment and Plan (1) Severe sepsis Current Visit: Yes Status: Acute Assessment and Plan: Patient presents with hypotension, and urine that is cloudy, thick, Patient reports fever at [facility]. Patient has elevated white blood cell count, DOROTHEA. Secondary to suspected UTI. Patient has a history of UTIs: ESBL and VRE. 04/10 Urine cultures growing proteus mirabilis blanco resistant to multiple antibiotics. sensitive to carbapenems. Identification of 2nd organism pending. WBC trending down. Will consult ID for antibiotics recommendation/ duration for discharge planning (2) Acute metabolic encephalopathy Current Visit: Yes Status: Acute Assessment and Plan: Likely secondary to sepsis. Resolved (3) UTI (urinary tract infection) Current Visit: Yes Status: Acute Assessment and Plan: Urine cultures growing proteus mirabilis resistant to ultiple antibiotic s and gram negative rods pending identification Continue ertapenem. Appreciate ID recs (4) Diabetes mellitus Current Visit: Yes Status: Chronic Assessment and Plan: Patient has a history of diabetes mellitus insulin-dependent Her last hemoglobin A1c was 5.7 On a cardiac ADA, renal diet Patient started on 28 units Levemir and 8 units insulin aspart (5) HTN (hypertension) Current Visit: Yes Status: Chronic Assessment and Plan: Controlled Continue carvedilol (6) HLD (hyperlipidemia) Current Visit: Yes Status: Chronic Assessment and Plan: Continue atorvastatin. (7) Acute on chronic diastolic heart failure Current Visit: No Status: Acute Assessment and Plan: Continue lasix IV BID (8) Acute kidney injury Current Visit: Yes Status: Acute Assessment and Plan: Creatinine improving with diuresis (9) REGINALD treated with BiPAP Current Visit: No Status: Chronic Assessment and Plan: Continue CPAP (10) GERD (gastroesophageal reflux disease) Current Visit: Yes Status: Chronic Assessment and Plan: Patient has a history of gastric reflux disease with upper GI bleed Currently her hemoglobin is stable She denies hematochezia or other symptoms We will continue Protonix and Carafate. (11) Hyperkalemia Current Visit: Yes Status: Acute Assessment and Plan: Resolved (12) Morbid obesity with BMI of 45.0-49.9, adult Current Visit: Yes Status: Acute Assessment and Plan: Diet and exercise and weight loss - Time Spent with Patient Total time spent is greater than 50% in coordination of care (as documented) at patient's floor/unit and/or counseling patient: Internal Medicine: Result - Labs CBC & Chem 7: 04/10/18 06:33 04/10/18 06:33 Labs: Short CBC 04/10/18 Range/Units 06:33 WBC 8.2 (4.3-11.1) K/mcL Hgb 8.8 L (11.5-15.4) g/dL Hct 28.9 L (35.3-44.9) % Plt Count 148 (140-400) K/mcL Neutrophils # 5.3 (1.6-8.9) K/mcL BMP 04/10/18 06:33 Sodium 142 Potassium 4.1 Chloride 102 Carbon Dioxide 31 H BUN 79 H Creatinine 1.79 H Glucose 86 Calcium 9.4 - Impressions Impressions Chest X-Ray 04/09/18 09:30 IMPRESSION: No significant change in bilateral airspace opacities which may represent multifocal pneumonia or pulmonary edema. Stable bilateral pleural effusions with probable underlying atelectasis or infiltrates. D/ / Denisse Antony MD / Denisse Antony MD Interpreting Provider: Denisse Antony MD Consult Discharge Plan - Plan Referrals: Jc Tsai MD [Primary Care Provider] - (3) UTI (urinary tract infection) Qualifiers: Urinary tract infection type: acute cystitis Hematuria presence: without hematuria Qualified Code(s): N30.00 - Acute cystitis without hematuria (4) Diabetes mellitus Qualifiers: Diabetes mellitus type: type 2 Diabetes mellitus usp insulin use: with moth exterminator use Diabetes mellitus complication status: with skin complications Diabetes mellitus complication detail: with foot ulcer Qualified Code(s): E11.621 - Type 2 diabetes mellitus with foot ulcer; L97.509 - Non-pressure chronic ulcer of other part of unspecified foot with unspecified severity; Z79.4 - [facility] (current) use of insulin (5) HTN (hypertension) Qualifiers: Hypertension type: essential hypertension Qualified Code(s): I10 - Essential (primary) hypertension (6) HLD (hyperlipidemia) Qualifiers: Hyperlipidemia type: mixed hyperlipidemia Qualified Code(s): E78.2 - Mixed hyperlipidemia (10) GERD (gastroesophageal reflux disease) Qualifiers: Esophagitis presence: with esophagitis Qualified Code(s): K21.0 - Gastro- esophageal reflux disease with esophagitis
[2018-04-10] MEDS: Furosemide 40 MG/4 ML VIAL IVP SCH ×2 (10:00→21:40)
[2018-04-10] MEDS: Loratadine 10 MG TABLET PO SCH (10:00)
[2018-04-10] MEDS: tiZANidine 4 MG TABLET PO SCH ×3 (10:00→21:39)
[2018-04-10] MEDS: Pantoprazole 40 MG VIAL IVP SCH (10:01)
[2018-04-10] MEDS: Insulin LISPRO 300 UNITS/3 ML VIAL SQ SCH ×7 (10:02→22:14)
[2018-04-10] MEDS: Fluticasone Propionate Nasal 50 MCG/SPRAY BOTTLE NS SCH (10:03)
--- NOTE | 2018-04-10 13:16 | Infectious Disease Consult ---
Date of Encounter: 04/10/18 Time of Encounter: 13:14 Assessment and Plan (1) Severe sepsis Status: Acute Assessment and plan: The patient had 2 sepsis criteria plus hypotension and acute kidney injury on admission. Likely secondary to UTI. Improved. It was normalized. Tachycardia has resolved. She has remained afebrile. Blood pressure is stable. Her renal function is back to baseline. Blood cultures were not obtained on admission. (2) UTI (urinary tract infection) Status: Acute Assessment and plan: Causative organism: Proteus mirabilis and a second gram-negative nilo with final ID and susceptibilities pending. Await final ID and sensitivities. Continue ertapenem 1 g IV every 24 hours for now. Discontinue vancomycin. Await final cultures. De-escalate antibiotics if/when able. Monitor function and dose adjust antibiotics. Duration of treatment depends on the clinical picture. Qualifiers: Urinary tract infection type: acute cystitis Hematuria presence: without hematuria Qualified Code(s): N30.00 - Acute cystitis without hematuria (3) Diabetic foot ulcer Status: Chronic Assessment and plan: Location: Right heel. Clinically does not appear infected. Recommend wound care to evaluate for dressing change recommendations. Qualifiers: Diabetic foot ulcer location: heel Diabetes mellitus type: type 1 Laterality: right Non-pressure ulcer stage: with fat layer exposed Qualified Code(s): E10.621 - Type 1 diabetes mellitus with foot ulcer; L97.412 - Non-pressure chronic ulcer of right heel and midfoot with fat layer exposed (4) Acute on chronic renal insufficiency Status: Acute Assessment and plan: Acute kidney injury noted on admission. Serum creatinine improved and appears back to baseline. Continue to trend. Does adjust antibiotics. Avoid nephrotoxins as able. (5) Acute metabolic encephalopathy Status: Acute Assessment and plan: Likely secondary to sepsis. Resolved. (6) Anemia Status: Chronic Qualifiers: Anemia type: unspecified type Qualified Code(s): D64.9 - Anemia, unspecified (7) REGINALD treated with BiPAP Status: Chronic (8) GERD (gastroesophageal reflux disease) Status: Chronic Qualifiers: Esophagitis presence: with esophagitis Qualified Code(s): K21.0 - Gastro- esophageal reflux disease with esophagitis (9) History of congestive heart failure Status: Acute (10) History of COPD Status: Acute (11) Diabetes mellitus Status: Chronic Assessment and plan: Recommend aggressive glucose monitoring and control to promote wound healing. Management per the primary team. Qualifiers: Diabetes mellitus type: type 2 Diabetes mellitus long term care phlebotomist insulin use: with retirement use Diabetes mellitus complication status: with skin complications Diabetes mellitus complication detail: with foot ulcer Qualified Code(s): E11.621 - Type 2 diabetes mellitus with foot ulcer; L97.509 - Non-pressure chronic ulcer of other part of unspecified foot with unspecified severity; Z79.4 - intermediate project manager (current) use of insulin Infectious Disease HPI - Data of Consult Patient: known to practice within the last 3 years Consult date: 04/10/18 Requesting Physician: Keo Gu Primary Care Provider: Jc Tsai MD - Consult Narrative Reason for consult: UTI History of present illness: Ms. Magallanes is a 58 year old female with a past medical history of CHF, COPD, diabetes, hyperlipidemia, hypertension, diabetic neuropathy, and chronic right heel foot ulcer. The patient was admitted to the hospital April 06 for altered mental status and UTI. We are consulted April 10 for antibiotic recommendations for UTI. Briefly, the patient is a 58-year-old female, well-known to the infectious disease service as we have been consulted on her case in the past. Apparently, the patient was noted to have altered mental status on the day of admission as well as hypotension. She was brought to the emergency department per EMS from the [facility] where she currently resides. Upon arrival, the patient was afebrile and hemodynamically stable. Her blood pressure was 109/58. She did have leukocytosis, but no differential was done. She was noted to have an acute kidney injury with a normal lactic acid level. Urinalysis was positive for too numerous to count white blood cells and positive for bacteria, but additionally analysis of the urine cannot be completed due to the viscosity of it. The culture was sent and is growing out Proteus Claudia this and an additional gram -negative nilo. She also had a chest x-ray that showed findings consistent with pulmonary edema and a possible right lower lobe pneumonia. She was started on IV ertapenem and admitted to the hospital for further evaluation. Since admission, the patient's white blood cell count has normalized. Her acute kidney injury has improved. Repeat chest x-ray yesterday that showed unchanged bilateral airspace opacities concerning for pneumonia versus pulmonary edema. She did receive 3 doses of IV vancomycin, but this was discontinued. Currently, she is only on IV ertapenem. We have been asked to evaluate and make further recommendations. During my exam today, the patient states she is not really sure why she came to the emergency department. She states she thinks is because her numbers were too high. She does not remember feeling ill prior to presentation. She states as far she she was in her usual state of health. She denies any known fevers or chills or rigors. Denies any headache or neck pain. Denies any weakness or dizziness. Denies any congestion, earache, or sore throat. She denies any chest pain, shortness of breath, or cough. She denies any nausea, vomiting, diarrhea, or constipation. She denies any abdominal pain, urinary complaints, or appetite changes. She continues to follow with the wound care clinic for the right heel ulcer and states she was told it was getting better. She denies any oral thrush or any skin lesions. Denies any pain at this time. She denies any urinary frequency, dysuria, or hematuria. She does not typically have a chronic indwelling Rogers catheter. She did have one placed upon arrival, but it was discontinued. She typically voids via bedpan at the [facility]. Clicks in a care facility to assist with wound management of her right foot. She denies any tobacco, alcohol, or illicit drug use. She denies any recent travel outside the [facility]. She denies any chronic infectious diseases. She denies any animal exposures. CC: Keo Gu Past Med Surg Social Fam HX - Past Medical History Attestation: Yes The following information was validated with the patient. Source: patient, old records reviewed, nursing notes reviewed Medical history: CHF, COPD, diabetes, hyperlipidemia, hypertension, other Additional medical history: DM Neuropathy. Type II Diabetic Psychiatric history: depression - Past Surgical History Surgical History: hysterectomy, other Additional surgical history: neck surgery - Social History Smoking Status: Never smoker Smokeless Tobacco Status: No Alcohol use: none Drug use: none Occupational status: unemployed Current living situation: [facility] Activity Level: Uses cane/walker Recent Out of Country Travel Within the Last 8 Weeks: No Exposure or Possible Exposure to Illness During Travel: No - Family History Mother Adopted: No Family Member Ethnicity: Non- Living Status: Hx Family Endocrine Disorder: Yes (diabetes type 2) Father Adopted: No Family Member Ethnicity: Non- Living Status: Hx Family Cardiac Disorders: Yes (hypertension) Hx Family Respiratory Disorders: No Hx Family Cancer: No Hx Family GI Disorders: No Hx Family Endocrine Disorder: Yes (kidney disease) Infectious Disease-CN:Meds Atorvastatin [Lipitor] 40 mg PO HS 01/11/16 [History] Insulin ASPART [Novolog Flexpen] 2 - 14 unit SQ TID 01/11/16 [History] Latanoprost [Xalatan] 1 drop BOTH EYES HS 01/11/16 [History] Primidone [Mysoline] 50 mg PO BID PRN 01/11/16 [History] Ascorbic Acid [Vitamin C] 500 mg PO BID 03/25/16 [History] Docusate Sodium [Colace] 200 mg PO BID 03/25/16 [History] Furosemide [Lasix] 40 mg PO BID 12/06/16 [History] Fluticasone Propionate Nasal [Flonase] 2 spray NS DAILY #1 bottle 08/28/17 [Rx] Ketoconazole 2% CRM [Nizoral Cream] 1 appl TP DAILY 11/10/17 [History] Ketorolac Tromethamine 1 drop OP QID 11/10/17 [History] Tizanidine HCl 4 mg PO TID 11/20/17 [History] Calcium Carbonate [Tums] 1,000 mg PO Q4HR PRN tab.chew 11/24/17 [Rx] Carvedilol [Coreg] 6.25 mg PO BIDWM tablet 11/24/17 [Rx] Ferrous Sulfate 325 mg PO BID 01/30/18 [History] Loratadine [Allergy Relief] 10 mg PO DAILY 01/30/18 [History] Pantoprazole Sodium [Protonix] 40 mg PO DAILY 01/30/18 [History] Polyethylene Glycol 3350 [MiraLAX] 17 gm PO DAILY 01/30/18 [History] Sucralfate [Carafate] 1 gm PO 0730,1630 30 Days #60 tablet 02/16/18 [Rx] Diltiazem CD (24hr) [Cardizem CD] 120 mg PO DAILY 02/20/18 [History] Insulin DETEMIR [Levemir] 30 unit SQ HS [id number] 02/26/18 [Rx] Ipratropium/Albuterol Neb [Duoneb] 3 ml IH [id number] PRN inhsol 02/26/18 [Rx] Simethicone [Gas-X] 80 mg PO TID PRN tab.chew 02/26/18 [Rx] Brimonidine Tartrate/Timolol [Combigan 0.2%-0.5% Eye Drops] 1 drop BOTH EYES BID 03/07/18 [History] Gabapentin [Neurontin] 300 mg PO HS #5 capsule 03/24/18 [Rx] Pregabalin [Lyrica] 75 mg PO BID 5 Days #10 capsule 03/24/18 [Rx] clonazePAM [Klonopin] 0.5 mg PO BID PRN 5 Days #10 tablet 03/24/18 [Rx] Ibuprofen [Ibu] 600 mg PO QID PRN 04/07/18 [History] Lactobacillus Acidophilus [Acidophilus] 1 cap PO BID 04/07/18 [History] 3 Allergy/AdvReac Type Severity Reaction Status Date / Time lisinopril [From Zestril] Allergy Rash Verified 04/07/18 14:58 All systems: reviewed and no additional remarkable complaints except as stated Exam - Constitutional Vitals: Temp Pulse Resp BP Pulse Ox 97.6 F 91 16 156/83 95 04/10/18 07:25 04/10/18 07:25 04/10/18 07:25 04/10/18 07:25 04/10/18 08:10 General appearance: cooperative, morbidly obese, no acute distress - Head Head exam: Present: atraumatic, normal inspection, normocephalic - Eye Eye exam: Present: EOMI, normal appearance, PERRL Pupils: Present: normal accommodation - ENT ENT exam: Present: mucous membranes moist - Neck Neck exam: Present: normal inspection - Respiratory Respiratory exam: Present: CTAB. Absent: rales, respiratory distress, rhonchi, wheezes - Cardiovascular Cardiovascular exam: Present: RRR, +S1, +S2 - GI/Abdominal GI/Abdominal exam: Present: distended (obese), normal bowel sounds, soft. Absent: tenderness - Extremities Exam Extremities exam: Present: normal inspection. Absent: joint swelling, pedal edema, tenderness Additional comments: Right foot heel ulcer with 100% slough in the wound bed, but no drainage, foul odor, erythema, fluctuance, or tenderness noted. - Neurological Exam Neurological exam: Present: alert, oriented X3, no focal deficits - Psychiatric Psychiatric exam: Present: normal affect, normal mood - Skin Skin exam: Present: dry, intact, normal color, warm Infectious Disease CN: Results - Labs CBC & Chem 7: 04/11/18 04:20 04/11/18 04:20 Serology: Serology 04/07/18 Range/Units 17:10 Urine Color Yellow (Yellow) Urine Clarity Turbid A (Clear) Urine pH 6.0 (5.0-8.0) pH Units Ur Specific [place] 1.018 (1.010-1.025) Urine Protein 100 H (Neg-Trace) mg/dL Urine Glucose (UA) Normal (Normal) mg/dL Urine Ketones Negative (Negative) mg/dL Urine Blood Small H (Negative) Urine Nitrite Negative (Negative) Urine Bilirubin Negative (Negative) Urine Urobilinogen Normal (Normal) mg/dL Ur Leukocyte Esterase Large H (Negative) Urine Microscopic RBC 50-100 H (0-3) per hpf Urine Microscopic WBC TNTC H (0-3) per hpf Ur Squamous Epith Cells Moderate H (None-Few) per lpf Urine Bacteria None Seen (None-Few) per hpf Hyaline Casts None Seen (None-Few) per lpf Consult Discharge Plan - Plan Referrals: Jc Tsai MD [Primary Care Provider] - - Attending Attestation I examined this patient and my medical decision-making was reviewed with the Resident Physician. I agree with the documented findings, disposition and treatment plan as described except to the extent set forth below. This is an addendum to report dictated by Gina Lamb CNP. Please refer to Gina'jeannette for full details. Patient is a 58-year-old woman well known to our service presented to [place] with severe sepsis like picture secondary to urinary tract infection with 40s mirabilis and another gram-negative nilo. Patient was started empirically on ertapenem and vancomycin were asked to evaluate the patient's make further recommendations. Patient clinically doing better. Review of system and physical exam done. As for the severe sepsis secondary to UTI we will continue the ertapenem 1 g IV every 24 hours based on her creatinine clearance. I think we are okay with the seeing vancomycin. Duration of treatment depends on the clinical picture but likely 10-14 days. In the meantime on a drug toxicity.
[2018-04-10] MEDS: Ketoconazole 2% CRM 15 GM TUBE TP SCH (13:33)
[2018-04-10] MEDS: Gabapentin 300 MG CAPSULE PO SCH (21:39)
[2018-04-10] MEDS: Insulin DETEMIR 100 UNIT/ML X5UNITS SQ SCH (21:40)
[2018-04-10] MEDS: Latanoprost 2.5 ML BOTTLE BOTH EYES SCH (22:15)
[2018-04-11 05:53] LABS: Basophils # 0.1 K/mcL (0.0-0.2); Basophils % 0.5 %; Eosinophils # 0.3 K/mcL (0.0-0.6); Eosinophils % 2.6 %; Hematocrit 28.6 % (35.3-44.9); Hemoglobin 8.7 g/dL (11.5-15.4); Immature Granulocytes % 0.2 % (0-4); Lymphocytes # 2.1 K/mcL (0.6-4.6); Lymphocytes % 21.4 %; Mean Corpuscular HGB Conc 30.4 g/dL (31.6-35.5); Mean Corpuscular Hemoglobin 26.4 pg (28.0-33.3); Mean Corpuscular Volume 86.9 fL (83.0-100.0); Mean Platelet Volume 12.9 fL (9.4-12.4); Monocytes # 0.6 K/mcL (0.0-1.3); Monocytes % 6.3 %; Neutrophils # 6.7 K/mcL (1.6-8.9); Platelet Count 169 K/mcL (140-400); Red Blood Count 3.29 M/mcL (3.82-4.97); Red Cell Distribution Width 14.8 % (11.5-14.5)
[2018-04-11] MEDS: Sucralfate 1 GM TABLET PO SCH ×2 (06:34→17:41)
[2018-04-11] MEDS: *HR* Heparin 5,000 UNIT/ML VIAL SQ SCH ×3 (06:34→21:44)
[2018-04-11 07:02] LABS: Calcium 9.4 mg/dL (8.6-10.3); Magnesium 1.8 mg/dL (1.6-2.6); Potassium 3.7 mEq/L (3.5-5.1)
[2018-04-11] MEDS: Ketoconazole 2% CRM 15 GM TUBE TP SCH (09:07)
[2018-04-11] MEDS: Fluticasone Propionate Nasal 50 MCG/SPRAY BOTTLE NS SCH (09:08)
[2018-04-11] MEDS: Pantoprazole 40 MG VIAL IVP SCH (09:10)
[2018-04-11] MEDS: Furosemide 40 MG/4 ML VIAL IVP SCH ×2 (09:11→21:44)
[2018-04-11] MEDS: Insulin LISPRO 300 UNITS/3 ML VIAL SQ SCH ×7 (09:14→21:45)
[2018-04-11] MEDS: Diltiazem CD (24hr) 120 MG CAPSULE PO SCH (09:15)
[2018-04-11] MEDS: Lactobacillus 1 EACH CAP.SPRINK PO SCH ×2 (09:15→21:44)
[2018-04-11] MEDS: tiZANidine 4 MG TABLET PO SCH ×3 (09:16→21:44)
[2018-04-11] MEDS: Loratadine 10 MG TABLET PO SCH (09:16)
--- NOTE | 2018-04-11 10:09 | Internal Med Progress Note ---
Hospitalist Progress Note - Encounter Date of Encounter: 04/11/18 Time of Encounter: 10:00 - Subjective Interval History: No acute events overnight - Exam Vitals: Temp Pulse Resp BP Pulse Ox 98.0 F 78 16 118/79 94 04/11/18 07:44 04/11/18 07:44 04/11/18 07:44 04/11/18 07:44 04/11/18 09:15 Exam: General: Alert. Appears to be oriented. Comfortable at this time. Skin: Normal color, no rash, no lesions. Head: Normocephalic. EENT: EOMI, pupils equal, reactive. Mucus membranes moist. No lesion. Cardiovascular: Normal S1 & S2, no rubs, murmurs or gallops. No JVD. Distant heart sounds. Lungs: Normal breath sounds, very diminished anteriorly and laterally. Abdomen: Soft, non-tender, no rigidity. Normal bowel sounds. Extremities: No deformity, no joint swelling or clubbing. Neurological: Moves all extremities. Pulses: Carotid and radial pulses normal +2. - Assessment and Plan (1) Severe sepsis Current Visit: Yes Status: Acute Assessment and Plan: Patient presents with hypotension, and urine that is cloudy, thick, Patient reports fever at residential. Patient has elevated white blood cell count, DOROTHEA. Secondary to suspected UTI. Patient has a history of UTIs: ESBL and VRE. 04/11 Urine cultures growing proteus mirabilis blanco resistant to multiple antibiotics. sensitive to carbapenems. Identification of 2nd organism pending. WBC trending down. ID following and recommend continuing ertapenem. Identification of 2nd organism still pending (2) Acute metabolic encephalopathy Current Visit: Yes Status: Acute Assessment and Plan: Likely secondary to sepsis. Resolved (3) UTI (urinary tract infection) Current Visit: Yes Status: Acute Assessment and Plan: Urine cultures growing proteus mirabilis resistant to ultiple antibiotic s and gram negative rods pending identification Continue ertapenem. Appreciate ID recs (4) Diabetes mellitus Current Visit: Yes Status: Chronic Assessment and Plan: Patient has a history of diabetes mellitus insulin-dependent Her last hemoglobin A1c was 5.7 On a cardiac ADA, renal diet Patient started on 28 units Levemir and 8 units insulin aspart (5) HTN (hypertension) Current Visit: Yes Status: Chronic Assessment and Plan: Controlled Continue carvedilol (6) HLD (hyperlipidemia) Current Visit: Yes Status: Chronic Assessment and Plan: Continue atorvastatin. (7) Acute on chronic diastolic heart failure Current Visit: No Status: Acute Assessment and Plan: Continue lasix IV BID (8) Acute kidney injury Current Visit: Yes Status: Acute Assessment and Plan: DOROTHEA on CKD stage 4. Creatinine improving with diuresis (9) REGINALD treated with BiPAP Current Visit: No Status: Chronic Assessment and Plan: Continue CPAP (10) GERD (gastroesophageal reflux disease) Current Visit: Yes Status: Chronic Assessment and Plan: Patient has a history of gastric reflux disease with upper GI bleed Currently her hemoglobin is stable She denies hematochezia or other symptoms We will continue Protonix and Carafate. (11) Hyperkalemia Current Visit: Yes Status: Acute Assessment and Plan: Resolved (12) Morbid obesity with BMI of 45.0-49.9, adult Current Visit: Yes Status: Acute Assessment and Plan: Diet and exercise and weight loss - Time Spent with Patient Total time spent is greater than 50% in coordination of care (as documented) at patient's floor/unit and/or counseling patient: Internal Medicine: Result - Labs CBC & Chem 7: 04/11/18 04:20 04/11/18 04:20 Labs: Short CBC 04/11/18 Range/Units 04:20 WBC 9.7 (4.3-11.1) K/mcL Hgb 8.7 L (11.5-15.4) g/dL Hct 28.6 L (35.3-44.9) % Plt Count 169 (140-400) K/mcL Neutrophils # 6.7 (1.6-8.9) K/mcL BMP 04/11/18 04:20 Sodium 143 Potassium 3.7 Chloride 101 Carbon Dioxide 32 H BUN 72 H Creatinine 1.51 H Glucose 65 L Calcium 9.4 Consult Discharge Plan - Plan Referrals: Jc Tsai MD [Primary Care Provider] - (3) UTI (urinary tract infection) Qualifiers: Urinary tract infection type: acute cystitis Hematuria presence: without hematuria Qualified Code(s): N30.00 - Acute cystitis without hematuria (4) Diabetes mellitus Qualifiers: Diabetes mellitus type: type 2 Diabetes mellitus extermination supervisor insulin use: with senior living use Diabetes mellitus complication status: with skin complications Diabetes mellitus complication detail: with foot ulcer Qualified Code(s): E11.621 - Type 2 diabetes mellitus with foot ulcer; L97.509 - Non-pressure chronic ulcer of other part of unspecified foot with unspecified severity; Z79.4 - extermination supervisor (current) use of insulin (5) HTN (hypertension) Qualifiers: Hypertension type: essential hypertension Qualified Code(s): I10 - Essential (primary) hypertension (6) HLD (hyperlipidemia) Qualifiers: Hyperlipidemia type: mixed hyperlipidemia Qualified Code(s): E78.2 - Mixed hyperlipidemia (10) GERD (gastroesophageal reflux disease) Qualifiers: Esophagitis presence: with esophagitis Qualified Code(s): K21.0 - Gastro- esophageal reflux disease with esophagitis
--- NOTE | 2018-04-11 13:51 | Infectious Disease Progress No ---
Date of Encounter: 04/11/18 Time of Encounter: 10:00 - Assessment and Plan (1) Severe sepsis Current Visit: Yes Status: Acute The patient had 2 sepsis criteria plus hypotension and acute kidney injury on admission. Likely secondary to UTI. Improved. It was normalized. Tachycardia has resolved. She has remained afebrile. Blood pressure is stable. Her renal function is back to baseline. Blood cultures were not obtained on admission. (2) UTI (urinary tract infection) Current Visit: Yes Status: Acute Causative organism: Proteus mirabilis and E. cloacae. Continue ertapenem 1 g IV every 24 hours for now. Monitor function and dose adjust antibiotics. Duration of treatment depends on the clinical picture, but likely a total of 10- 14 days. Can switch to PO fosfomycin 3 grams PO x 1 packet, then discontinue. No further recommendations from the ID team. Will sign off. Please re-consult if needed. Qualifiers: Urinary tract infection type: acute cystitis Hematuria presence: without hematuria Qualified Code(s): N30.00 - Acute cystitis without hematuria (3) Diabetic foot ulcer Current Visit: No Status: Chronic Location: Right heel. Clinically does not appear infected. Recommend wound care to evaluate for dressing change recommendations. Qualifiers: Diabetic foot ulcer location: heel Diabetes mellitus type: type 1 Laterality: right Non-pressure ulcer stage: with fat layer exposed Qualified Code(s): E10.621 - Type 1 diabetes mellitus with foot ulcer; L97.412 - Non-pressure chronic ulcer of right heel and midfoot with fat layer exposed (4) Acute on chronic renal insufficiency Current Visit: No Status: Acute Acute kidney injury noted on admission. Serum creatinine improved and appears back to baseline. Continue to trend. Does adjust antibiotics. Avoid nephrotoxins as able. (5) Acute metabolic encephalopathy Current Visit: Yes Status: Acute Likely secondary to sepsis. Resolved. (6) Anemia Current Visit: No Status: Chronic Qualifiers: Anemia type: unspecified type Qualified Code(s): D64.9 - Anemia, unspecified (7) REGINALD treated with BiPAP Current Visit: No Status: Chronic (8) GERD (gastroesophageal reflux disease) Current Visit: Yes Status: Chronic Qualifiers: Esophagitis presence: with esophagitis Qualified Code(s): K21.0 - Gastro- esophageal reflux disease with esophagitis (9) History of congestive heart failure Current Visit: Yes Status: Acute (10) History of COPD Current Visit: Yes Status: Acute (11) Diabetes mellitus Current Visit: Yes Status: Chronic Recommend aggressive glucose monitoring and control to promote wound healing. Management per the primary team. 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 No acute events noted overnight patient states overall she feels well once [facility] care home. She denies any fevers or chills or rigors. Denies chest pain, shortness of breath, or cough. Denies nausea, vomiting, diarrhea, or constipation. Denies abdominal pain, urinary complaints , appetite changes. Denies any oral thrush or new skin lesions. Denies pain at this time. Infect Dis PN-Objective Data - Labs CBC & Chem 7: 04/11/18 04:20 04/11/18 04:20 Labs: Laboratory Results - last 24 hr 04/10/18 04/10/18 04/10/18 07:20 12:08 16:00 WBC RBC Hgb Hct MCV MCH MCHC RDW Plt Count MPV Immature Gran % Seg Neutrophils % Lymphocytes % Monocytes % Eosinophils % Basophils % Neutrophils # Lymphocytes # Monocytes # Eosinophils # Basophils # Sodium Potassium Chloride Carbon Dioxide BUN Creatinine Est GFR ( Amer) Est GFR (Non-Af Amer) BUN/Creatinine Ratio Glucose POC Glucose 98 155 H 94 Calculated Osmolality Calcium Magnesium 04/10/18 04/11/18 04/11/18 19:59 04:20 04:20 WBC 9.7 RBC 3.29 L Hgb 8.7 L Hct 28.6 L MCV 86.9 MCH 26.4 L MCHC 30.4 L RDW 14.8 H Plt Count 169 MPV 12.9 H Immature Gran % 0.2 Seg Neutrophils % 69.0 Lymphocytes % 21.4 Monocytes % 6.3 Eosinophils % 2.6 Basophils % 0.5 Neutrophils # 6.7 Lymphocytes # 2.1 Monocytes # 0.6 Eosinophils # 0.3 Basophils # 0.1 Sodium 143 Potassium 3.7 Chloride 101 Carbon Dioxide 32 H BUN 72 H Creatinine 1.51 H Est GFR ( Amer) 43 L Est GFR (Non-Af Amer) 36 L BUN/Creatinine Ratio 48 H Glucose 65 L POC Glucose 104 H Calculated Osmolality 315 H Calcium 9.4 Magnesium 1.8 Cultures: Serology 04/07/18 Range/Units 17:10 Urine Color Yellow (Yellow) Urine Clarity Turbid A (Clear) Urine pH 6.0 (5.0-8.0) pH Units Ur Specific [place] 1.018 (1.010-1.025) Urine Protein 100 H (Neg-Trace) mg/dL Urine Glucose (UA) Normal (Normal) mg/dL Urine Ketones Negative (Negative) mg/dL Urine Blood Small H (Negative) Urine Nitrite Negative (Negative) Urine Bilirubin Negative (Negative) Urine Urobilinogen Normal (Normal) mg/dL Ur Leukocyte Esterase Large H (Negative) Urine Microscopic RBC 50-100 H (0-3) per hpf Urine Microscopic WBC TNTC H (0-3) per hpf Ur Squamous Epith Cells Moderate H (None-Few) per lpf Urine Bacteria None Seen (None-Few) per hpf Hyaline Casts None Seen (None-Few) per lpf Exam - Constitutional Vitals: Temp Pulse Resp BP Pulse Ox 97.7 F 68 14 114/74 97 04/11/18 12:23 04/11/18 12:23 04/11/18 12:23 04/11/18 12:23 04/11/18 12:23 General appearance: cooperative, morbidly obese, no acute distress - Head Head exam: Present: atraumatic, normal inspection, normocephalic - Eye Eye exam: Present: EOMI, normal appearance, PERRL Pupils: Present: normal accommodation - ENT ENT exam: Present: mucous membranes moist - Neck Neck exam: Present: normal inspection - Respiratory Respiratory exam: Present: CTAB. Absent: rales, respiratory distress, rhonchi, wheezes - Cardiovascular Cardiovascular exam: Present: RRR, +S1, +S2 - GI/Abdominal GI/Abdominal exam: Present: distended (obese), normal bowel sounds, soft. Absent: tenderness - Extremities Exam Extremities exam: Present: normal inspection, pedal edema (1+ BLE). Absent: joint swelling, tenderness Additional comments: Right foot dressing C/D/I. - Neurological Exam Neurological exam: Present: alert, oriented X3, no focal deficits - Psychiatric Psychiatric exam: Present: normal affect, normal mood - Skin Skin exam: Present: dry, intact, normal color, warm Consult Discharge Plan - Plan Referrals: Jc Tsai MD [Primary Care Provider] -
[2018-04-11] MEDS: Gabapentin 300 MG CAPSULE PO SCH (21:44)
[2018-04-11] MEDS: Latanoprost 2.5 ML BOTTLE BOTH EYES SCH (21:45)
[2018-04-11] MEDS: Insulin DETEMIR 100 UNIT/ML X5UNITS SQ SCH (21:45)
[2018-04-12] MEDS: *HR* Heparin 5,000 UNIT/ML VIAL SQ SCH ×2 (06:15→14:57)
[2018-04-12 07:24] LABS: Potassium 4.4 mEq/L (3.5-5.1)
[2018-04-12 08:25] LABS: Basophils # 0.1 K/mcL (0.0-0.2); Basophils % 0.5 %; Eosinophils # 0.3 K/mcL (0.0-0.6); Eosinophils % 3.2 %; Hematocrit 29.7 % (35.3-44.9); Hemoglobin 8.9 g/dL (11.5-15.4); Immature Granulocytes % 0.3 % (0-4); Lymphocytes # 2.1 K/mcL (0.6-4.6); Lymphocytes % 22.4 %; Mean Corpuscular Hemoglobin 27.1 pg (28.0-33.3); Mean Corpuscular Volume 90.3 fL (83.0-100.0); Mean Platelet Volume 13.5 fL (9.4-12.4); Monocytes # 0.6 K/mcL (0.0-1.3); Neutrophils # 6.3 K/mcL (1.6-8.9); Platelet Count 162 K/mcL (140-400); Red Blood Count 3.29 M/mcL (3.82-4.97); Red Cell Distribution Width 14.8 % (11.5-14.5); Segmented Neutrophils % 67.6 %
[2018-04-12 08:59] LABS: Calcium 9.4 mg/dL (8.6-10.3); Magnesium 1.8 mg/dL (1.6-2.6)
[2018-04-12] MEDS ORDERED: Ertapenem 1,000 MG in 0.9 % Sodium Chloride Mini Bag 100 ML IVPB SCH (09:00)
[2018-04-12] MEDS: Insulin LISPRO 300 UNITS/3 ML VIAL SQ SCH ×4 (09:20→13:11)
[2018-04-12] MEDS: Pantoprazole 40 MG VIAL IVP SCH (09:45)
[2018-04-12] MEDS: tiZANidine 4 MG TABLET PO SCH ×2 (09:45→14:57)
[2018-04-12] MEDS: Furosemide 40 MG/4 ML VIAL IVP SCH (09:45)
[2018-04-12] MEDS: Lactobacillus 1 EACH CAP.SPRINK PO SCH (09:46)
[2018-04-12] MEDS: Loratadine 10 MG TABLET PO SCH (09:46)
[2018-04-12] MEDS: Sucralfate 1 GM TABLET PO SCH ×2 (09:46→16:28)
[2018-04-12] MEDS: Diltiazem CD (24hr) 120 MG CAPSULE PO SCH (09:46)
[2018-04-12] MEDS: Fluticasone Propionate Nasal 50 MCG/SPRAY BOTTLE NS SCH (09:48)
[2018-04-12] MEDS: Ketoconazole 2% CRM 15 GM TUBE TP SCH (10:00)
--- NOTE | 2018-04-12 14:00 | Nephrology Consult Note ---
Date of Encounter: 04/12/18 Time of Encounter: 13:00 Assessment and Plan (1) Acute kidney injury Current Visit: Yes Status: Acute Acute kidney injury, multifactorial however mostly secondary to sepsis The patient's serum creatinine has been steadily improving over the course of her stay with hydration, otherwise biochemically stable Suspect that this will continue to improve as the patient's sepsis resolves completely Recommend continued avoidance of nephrotoxic agents as the patient improves Recommend follow-up BMP in 1 week as well as follow-up CBC Recommend follow-up with nephrology and office in 2-4 week (2) UTI (urinary tract infection) Current Visit: Yes Status: Acute Urinary tract infection with highly resistant bacterial species Management per primary team Qualifiers: Urinary tract infection type: site unspecified Hematuria presence: without hematuria Qualified Code(s): N39.0 - Urinary tract infection, site not specified (3) Morbid obesity Current Visit: No Status: Chronic History of Present Illness - Reason for Consult Consult date: 04/12/18 Acute Kidney Injury Requesting physician: Fernanda Garcia - Chief Complaint AMS - History of Present Illness Ms. Magallanes is a 58-year-old woman with a history of CHF, COPD, diabetes mellitus, hypertension, hyperlipidemia and recent sepsis with DOROTHEA at the end of February/ early March who presented to the ED from [facility] with altered mental status. At that time she apparently had thick, cloudy urine, fever, altered mental status. It was also determined that she had severe DOROTHEA that time with serum creatinine approaching 3 and a GFR of 17. The patient was diagnosed with sepsis and received fluids and antibiotics. She has been here since 04/06/18 and has shown significant improvement, however required Rogers catheterization yesterday due to urinary retention. At this time, the patient has no acute complaints. She says that she is feeling better and she does not understand why she needs to stay at the hospital. Although the patient's renal status has continued to improve relatively dramatically along with her clinical status in general, nephrology was consulted for recommendations on management post DOROTHEA and 4 time of discharge. Past Med Surg Social Fam HX - Past Medical History Medical history: CHF, COPD, diabetes, hyperlipidemia, hypertension, other Additional medical history: DM Neuropathy. Type II Diabetic Psychiatric history: depression - Past Surgical History Surgical History: hysterectomy, other Additional surgical history: neck surgery - Social History Smoking Status: Never smoker Smokeless Tobacco Status: No Alcohol use: none Drug use: none - Family History Mother Adopted: No Family Member Ethnicity: Non- Living Status: Hx Family Endocrine Disorder: Yes (diabetes type 2) Father Adopted: No Family Member Ethnicity: Non- Living Status: Hx Family Cardiac Disorders: Yes (hypertension) Hx Family Respiratory Disorders: No Hx Family Cancer: No Hx Family GI Disorders: No Hx Family Endocrine Disorder: Yes (kidney disease) Medications and Allergies Atorvastatin [Lipitor] 40 mg PO HS 01/11/16 [History] Insulin ASPART [Novolog Flexpen] 2 - 14 unit SQ TID 01/11/16 [History] Latanoprost [Xalatan] 1 drop BOTH EYES HS 01/11/16 [History] Primidone [Mysoline] 50 mg PO BID PRN 01/11/16 [History] Ascorbic Acid [Vitamin C] 500 mg PO BID 03/25/16 [History] Docusate Sodium [Colace] 200 mg PO BID 03/25/16 [History] Furosemide [Lasix] 40 mg PO BID 12/06/16 [History] Fluticasone Propionate Nasal [Flonase] 2 spray NS DAILY #1 bottle 08/28/17 [Rx] Ketoconazole 2% CRM [Nizoral Cream] 1 appl TP DAILY 11/10/17 [History] Ketorolac Tromethamine 1 drop OP QID 11/10/17 [History] Tizanidine HCl 4 mg PO TID 11/20/17 [History] Calcium Carbonate [Tums] 1,000 mg PO Q4HR PRN tab.chew 11/24/17 [Rx] Carvedilol [Coreg] 6.25 mg PO BIDWM tablet 11/24/17 [Rx] Ferrous Sulfate 325 mg PO BID 01/30/18 [History] Loratadine [Allergy Relief] 10 mg PO DAILY 01/30/18 [History] Pantoprazole Sodium [Protonix] 40 mg PO DAILY 01/30/18 [History] Polyethylene Glycol 3350 [MiraLAX] 17 gm PO DAILY 01/30/18 [History] Sucralfate [Carafate] 1 gm PO 0730,1630 30 Days #60 tablet 02/16/18 [Rx] Diltiazem CD (24hr) [Cardizem CD] 120 mg PO DAILY 02/20/18 [History] Insulin DETEMIR [Levemir] 30 unit SQ HS [id number] 02/26/18 [Rx] Ipratropium/Albuterol Neb [Duoneb] 3 ml IH [id number] PRN inhsol 02/26/18 [Rx] Simethicone [Gas-X] 80 mg PO TID PRN tab.chew 02/26/18 [Rx] Brimonidine Tartrate/Timolol [Combigan 0.2%-0.5% Eye Drops] 1 drop BOTH EYES BID 03/07/18 [History] Gabapentin [Neurontin] 300 mg PO HS #5 capsule 03/24/18 [Rx] Pregabalin [Lyrica] 75 mg PO BID 5 Days #10 capsule 03/24/18 [Rx] clonazePAM [Klonopin] 0.5 mg PO BID PRN 5 Days #10 tablet 03/24/18 [Rx] Ibuprofen [Ibu] 600 mg PO QID PRN 04/07/18 [History] Lactobacillus Acidophilus [Acidophilus] 1 cap PO BID 04/07/18 [History] 3 Allergy/AdvReac Type Severity Reaction Status Date / Time lisinopril [From Zestril] Allergy Rash Verified 04/07/18 14:58 Review of Systems Constitutional: no excessive sweating, no weight loss Eyes: bilateral: blurred vision (patient denies) Nose, mouth and throat: no dizziness, no headache(s) Cardiovascular: no chest pain, no palpitations Respiratory: no cough, no dyspnea Gastrointestinal: no abdominal pain, no change in bowel habits Genitourinary Female: no difficulty urinating, no urinary frequency, no urinary hesitancy, no urinary urgency Musculoskeletal: no muscle weakness, no numbness Integumentary: no hirsutism, no striae Neurological: no confusion, no dizziness, no syncope Psychiatric: no depression, no difficulty concentrating Endocrine: as per HPI, no polydipsia, no polyphagia Hematologic/Lymphatic: no easy bruising, no lymphadenopathy Exam - Vital Signs Vital signs: Initial Vital Signs Temp Pulse Resp BP Pulse Ox 98.2 F 72 16 109/58 99 04/06/18 17:06 04/06/18 17:06 04/06/18 17:06 04/06/18 17:06 04/06/18 17:06 Vital Signs - Last 8 Hours Temp Pulse Resp BP Pulse Ox 04/12/18 10:48 145/76 04/12/18 06:35 98.0 F 78 15 147/80 100 Intake and Output 04/11/18 04/12/18 04/12/18 23:59 07:59 15:59 Intake Total 700 / 700 Output Total 400 / 400 Balance 300 / 300 Intake: IV Fluids 100 / 100 INVanz 1,000 MG In 0.9 % Sodium 100 / 100 Chloride (Mini-Bag +) 100 ML @ 100 mls/hr IVPB DAILY DONNA Rx#: [id number] Oral 600 / 600 Output: Catheter 400 / 400 Other: Meal Lunch Percent of Meal Consumed 100% Stool Consistency loose Stool Color Brown # Urine Diapers 1 1 # Bowel Movements 1 Weight 125 kg Blood Glucose* 99 120 100 Patient Weight 04/12/18 23:59 Weight 125 kg - General Appearance Exam: Gen: Vitals noted. No acute distress. Appears to be chronically ill HEENT: Normocephalic, atraumatic Neck: Supple. No adenopathy. Cardiac: RRR, no murmur, +S1/S2 Pulmonary: CTA bilaterally, no wheezes, rales or rhonchi, equal chest expansion Abdomen: soft, nontender, no guarding Extremities: no BLE edema, nontender calf, no cyanosis or clubbing Neuro: moves all extremities, no focal deficits. A&Ox3 Psych: Patient is agitated and angry Results - Lab Results 04/12/18 05:04 04/12/18 05:04 Most recent lab results Calcium 9.4 mg/dL (8.6-10.3) 04/12/18 05:04 Phosphorus 6.7 mg/dL (2.7-4.5) H 04/07/18 00:53 Magnesium 1.8 mg/dL (1.6-2.6) 04/12/18 05:04 Consult Discharge Plan - Plan Referrals: Jc Tsai MD [Primary Care Provider] -
--- NOTE | 2018-04-12 14:25 | Infectious Disease Progress No ---
Date of Encounter: 04/12/18 Time of Encounter: 11:55 - Assessment and Plan (1) Severe sepsis Current Visit: Yes Status: Acute The patient had 2 sepsis criteria plus hypotension and acute kidney injury on admission. Likely secondary to UTI. Improved. WBC normalized. Tachycardia has resolved. She has remained afebrile. Blood pressure is stable. Her renal function is back to baseline. Blood cultures were not obtained on admission. (2) UTI (urinary tract infection) Current Visit: Yes Status: Acute Causative organism: Proteus mirabilis and E. cloacae. Continue ertapenem 1 g IV every 24 hours for now. (day 7) Monitor function and dose adjust antibiotics. Duration of treatment depends on the clinical picture, but likely a total of 10. When ready for discharge, can switch to PO fosfomycin 3 grams PO x 1 packet , then discontinue. No further recommendations from the ID team. Will sign off. Please re-consult if needed. Qualifiers: Urinary tract infection type: acute cystitis Hematuria presence: without hematuria Qualified Code(s): N30.00 - Acute cystitis without hematuria (3) Diabetic foot ulcer Current Visit: No Status: Chronic Location: Right heel. Clinically does not appear infected. Recommend wound care to evaluate for dressing change recommendations. Qualifiers: Diabetic foot ulcer location: heel Diabetes mellitus type: type 1 Laterality: right Non-pressure ulcer stage: with fat layer exposed Qualified Code(s): E10.621 - Type 1 diabetes mellitus with foot ulcer; L97.412 - Non-pressure chronic ulcer of right heel and midfoot with fat layer exposed (4) Acute on chronic renal insufficiency Current Visit: No Status: Acute Acute kidney injury noted on admission. Serum creatinine improved and appears back to baseline. Continue to trend. Nephrology consulted. Does adjust antibiotics. Avoid nephrotoxins as able. (5) Acute metabolic encephalopathy Current Visit: Yes Status: Acute Likely secondary to sepsis. Resolved. (6) Anemia Current Visit: No Status: Chronic Qualifiers: Anemia type: unspecified type Qualified Code(s): D64.9 - Anemia, unspecified (7) REGINALD treated with BiPAP Current Visit: No Status: Chronic (8) GERD (gastroesophageal reflux disease) Current Visit: Yes Status: Chronic Qualifiers: Esophagitis presence: with esophagitis Qualified Code(s): K21.0 - Gastro- esophageal reflux disease with esophagitis (9) History of congestive heart failure Current Visit: Yes Status: Acute (10) History of COPD Current Visit: Yes Status: Acute (11) Diabetes mellitus Current Visit: Yes Status: Chronic Recommend aggressive glucose monitoring and control to promote wound healing. Management per the primary team. Qualifiers: Diabetes mellitus type: type 2 Diabetes mellitus usp insulin use: with usp use Diabetes mellitus complication status: with skin complications Diabetes mellitus complication detail: with foot ulcer Qualified Code(s): E11.621 - Type 2 diabetes mellitus with foot ulcer; L97.509 - Non-pressure chronic ulcer of other part of unspecified foot with unspecified severity; Z79.4 - [employer] (current) use of insulin - Subjective Interval history: Patient seen and examined. No acute events noted overnight patient states overall she feels well and [facility]. She denies any fevers or chills or rigors. Denies chest pain, shortness of breath, or cough. Denies nausea, vomiting, diarrhea, or constipation. Denies abdominal pain, urinary complaints, appetite changes. Denies any oral thrush or new skin lesions. Denies pain at this time. Infect Dis PN-Objective Data - Labs CBC & Chem 7: 04/12/18 05:04 04/12/18 05:04 Labs: Laboratory Results - last 24 hr 04/11/18 04/11/18 04/11/18 08:07 12:23 16:24 WBC RBC Hgb Hct MCV MCH MCHC RDW Plt Count MPV Immature Gran % Seg Neutrophils % Lymphocytes % Monocytes % Eosinophils % Basophils % Neutrophils # Lymphocytes # Monocytes # Eosinophils # Basophils # Sodium Potassium Chloride Carbon Dioxide BUN Creatinine Est GFR ( Amer) Est GFR (Non-Af Amer) BUN/Creatinine Ratio Glucose POC Glucose 65 L 146 H 87 Calculated Osmolality Calcium Magnesium 04/11/18 04/12/18 04/12/18 20:52 05:04 05:04 WBC 9.3 RBC 3.29 L Hgb 8.9 L Hct 29.7 L MCV 90.3 MCH 27.1 L MCHC 30.0 L RDW 14.8 H Plt Count 162 MPV 13.5 H Immature Gran % 0.3 Seg Neutrophils % 67.6 Lymphocytes % 22.4 Monocytes % 6.0 Eosinophils % 3.2 Basophils % 0.5 Neutrophils # 6.3 Lymphocytes # 2.1 Monocytes # 0.6 Eosinophils # 0.3 Basophils # 0.1 Sodium 142 Potassium 4.4 Chloride 102 Carbon Dioxide 32 H BUN 68 H Creatinine 1.45 H Est GFR ( Amer) 45 L Est GFR (Non-Af Amer) 37 L BUN/Creatinine Ratio 47 H Glucose 90 POC Glucose 99 Calculated Osmolality 313 H Calcium 9.4 Magnesium 1.8 Cultures: Serology 04/07/18 Range/Units 17:10 Urine Color Yellow (Yellow) Urine Clarity Turbid A (Clear) Urine pH 6.0 (5.0-8.0) pH Units Ur Specific Gray 1.018 (1.010-1.025) Urine Protein 100 H (Neg-Trace) mg/dL Urine Glucose (UA) Normal (Normal) mg/dL Urine Ketones Negative (Negative) mg/dL Urine Blood Small H (Negative) Urine Nitrite Negative (Negative) Urine Bilirubin Negative (Negative) Urine Urobilinogen Normal (Normal) mg/dL Ur Leukocyte Esterase Large H (Negative) Urine Microscopic RBC 50-100 H (0-3) per hpf Urine Microscopic WBC TNTC H (0-3) per hpf Ur Squamous Epith Cells Moderate H (None-Few) per lpf Urine Bacteria None Seen (None-Few) per hpf Hyaline Casts None Seen (None-Few) per lpf Exam - Constitutional Vitals: Temp Pulse Resp BP Pulse Ox 98.0 F 78 15 145/76 100 04/12/18 06:35 04/12/18 06:35 04/12/18 06:35 04/12/18 10:48 04/12/18 06:35 General appearance: cooperative, morbidly obese, no acute distress - Head Head exam: Present: atraumatic, normal inspection, normocephalic - Eye Eye exam: Present: EOMI, normal appearance, PERRL Pupils: Present: normal accommodation - ENT ENT exam: Present: mucous membranes moist - Neck Neck exam: Present: normal inspection - Respiratory Respiratory exam: Present: CTAB. Absent: rales, respiratory distress, rhonchi, wheezes - Cardiovascular Cardiovascular exam: Present: RRR, +S1, +S2 - GI/Abdominal GI/Abdominal exam: Present: distended (obese), normal bowel sounds, soft. Absent: tenderness - Extremities Exam Extremities exam: Absent: joint swelling, normal inspection (Venous stasis dermatitis noted to the BLE.), pedal edema, tenderness Additional comments: Right foot dressing C/D/I. - Neurological Exam Neurological exam: Present: alert, oriented X3, no focal deficits - Psychiatric Psychiatric exam: Present: normal affect, normal mood - Skin Skin exam: Present: dry, intact, normal color, warm Consult Discharge Plan - Plan Referrals: Jc Tsai MD [Primary Care Provider] -
--- NOTE | 2018-04-12 14:31 | Physician Discharge Referral ---
ExtendedCare Referral Info Transfer To: [facility] Provider in Charge after Transfer: PCP, Other Institutional Level of Care: Skilled - Diagnosis (1) UTI (urinary tract infection) Priority: Primary Status: Acute (2) Sepsis Priority: Primary Status: Resolved (3) Decubitus ulcer, stage 3 with infection Priority: Secondary Status: Chronic (4) Ulcer of sacral region, stage 3 Priority: Secondary Status: Acute (5) Chronic venous hypertension w/ulcer and inflammation involv both sides Priority: Secondary Status: Chronic (6) Morbid obesity Priority: Secondary Status: Chronic (7) Diabetic foot ulcer Priority: Primary Status: Chronic (8) Acute kidney injury Priority: Primary Status: Resolved Expected Duration of Placement: unknown Prognosis: Fair Aware of Diagnosis: Patient Aware of Prognosis: Patient - Transfer Medications Home Medications: Atorvastatin [Lipitor] 40 mg PO HS 01/11/16 [History] Insulin ASPART [Novolog Flexpen] 2 - 14 unit SQ TID 01/11/16 [History] Latanoprost [Xalatan] 1 drop BOTH EYES HS 01/11/16 [History] Primidone [Mysoline] 50 mg PO BID PRN 01/11/16 [History] Ascorbic Acid [Vitamin C] 500 mg PO BID 03/25/16 [History] Docusate Sodium [Colace] 200 mg PO BID 03/25/16 [History] Furosemide [Lasix] 40 mg PO BID 12/06/16 [History] Fluticasone Propionate Nasal [Flonase] 2 spray NS DAILY #1 bottle 08/28/17 [Rx] Ketoconazole 2% CRM [Nizoral Cream] 1 appl TP DAILY 11/10/17 [History] Ketorolac Tromethamine 1 drop OP QID 11/10/17 [History] Tizanidine HCl 4 mg PO TID 11/20/17 [History] Calcium Carbonate [Tums] 1,000 mg PO Q4HR PRN tab.chew 11/24/17 [Rx] Carvedilol [Coreg] 6.25 mg PO BIDWM tablet 11/24/17 [Rx] Ferrous Sulfate 325 mg PO BID 01/30/18 [History] Loratadine [Allergy Relief] 10 mg PO DAILY 01/30/18 [History] Pantoprazole Sodium [Protonix] 40 mg PO DAILY 01/30/18 [History] Polyethylene Glycol 3350 [MiraLAX] 17 gm PO DAILY 01/30/18 [History] Sucralfate [Carafate] 1 gm PO 0730,1630 30 Days #60 tablet 02/16/18 [Rx] Diltiazem CD (24hr) [Cardizem CD] 120 mg PO DAILY 02/20/18 [History] Insulin DETEMIR [Levemir] 30 unit SQ HS [id number] 02/26/18 [Rx] Ipratropium/Albuterol Neb [Duoneb] 3 ml IH [id number] PRN inhsol 02/26/18 [Rx] Simethicone [Gas-X] 80 mg PO TID PRN tab.chew 02/26/18 [Rx] Brimonidine Tartrate/Timolol [Combigan 0.2%-0.5% Eye Drops] 1 drop BOTH EYES BID 03/07/18 [History] Gabapentin [Neurontin] 300 mg PO HS #5 capsule 03/24/18 [Rx] Pregabalin [Lyrica] 75 mg PO BID 5 Days #10 capsule 03/24/18 [Rx] clonazePAM [Klonopin] 0.5 mg PO BID PRN 5 Days #10 tablet 03/24/18 [Rx] Ibuprofen [Ibu] 600 mg PO QID PRN 04/07/18 [History] Lactobacillus Acidophilus [Acidophilus] 1 cap PO BID 04/07/18 [History] Allergies/Adverse Reactions: 3 Allergy/AdvReac Type Severity Reaction Status Date / Time lisinopril [From Zestril] Allergy Rash Verified 04/07/18 14:58 - Respiratory Orders Oxygen / L per min Smoking Cessation: Smoking cessation has been advised. For more information, call the [place] Tobacco Quit Line at 9-128-IDNU-NOW. - Ancillary Orders May use pressure relief devices daily prn, May go on JERRY w/family/respon republican w /meds at nurse discretion PRN, May consult with Dentist, Shingle Sawyer, Keg Filler PRN - Advance Directives Code Status: Full Code - Mobility Orders Chair, Other - Rehabiliation Orders Rehab Potential: Fair Rehab Orders: Evaluation for Physical Therapy, Evaluation for Occupational Therapy - Treatments Skin tear care topically daily PRN per policy, May check for fecal impaction rectally daily PRN, Fleet enema rectally every other day PRN cleansing purposes - Diet Orders No Concentrated Sweets House Supplement per Dietary: eval and treat CERTIFICATION: I certify that the transfer of the above named patient to an Extended Care Facility is necessary for the continuing treatment of the diagnosis listed. The above information is true and accurate reflection of patient's current condition. Confidential - Redisclosure prohibited without a patient's written consent.
--- NOTE | 2018-04-12 14:42 | Discharge Summary ---
- NOTES TO OUTPATIENT PROVIDER Notes to Outpatient Provider: Ms. Magallanes is a 58-year-old woman with a history of CHF, COPD, diabetes mellitus, hypertension, hyperlipidemia and recent sepsis with DOROTHEA at the end of February/early March who presented to the ED from [facility] with altered mental status. At that time she apparently had thick, cloudy urine , fever, altered mental status. It was also determined that she had severe DOROTHEA that time with serum creatinine approaching 3 and a GFR of 17. The patient was diagnosed with sepsis and received fluids and antibiotics. She has been here since 04/06/18 and has shown significant improvement, however required Ruiz catheterization yesterday due to urinary retention. At this time, the patient has no acute complaints. She says that she is feeling better and she does not understand why she needs to stay at the hospital. Although the patient's renal status has continued to improve relatively dramatically along with her clinical status in general, nephrology was consulted for recommendations on management post DOROTHEA and 4 time of discharge. Orders not resulted at time of discharge: Pending orders 04/12/18 US retroperitoneal comp [US] Routine 04/13/18 04:00 Basic Metabolic Panel AM 0400 04/14/18 04:00 Basic Metabolic Panel AM 0400 04/15/18 04:00 Basic Metabolic Panel AM 0400 Date of Encounter: 04/12/18 Time of Encounter: 11:00 - Discharge Diagnosis (1) UTI (urinary tract infection) Priority: Primary Status: Acute Assessment and Plan: Urine c/s positive for rapid Proteus and Enterobacter patient has been receiving IErtopenium 1gm IVPB daily since her admission from the ED for UTI and sepsis. She expoeirenced DOROTHEA, mostly d/t sepsis and renal function has improved daily. Nephorology was consulted and request f/u as outpatient . Patient is to be discharged to care home care for wound care. She is to f/u with nephrology in 4 weeks. Follow up with Dr. Byrne nephrology in 4 weeks. To have last IVBP prior to discharge of Fosfomycin Tromethamine 3gm Qualifiers: Urinary tract infection type: acute cystitis Hematuria presence: without hematuria Qualified Code(s): N30.00 - Acute cystitis without hematuria (2) Sepsis Priority: Primary Status: Resolved Assessment and Plan: Nephrology and infectious control was consulted, Cleared per both specialities for discharge to LT and follow up care to be continued with CMP in 1 week Qualifiers: Sepsis type: sepsis due to unspecified organism Qualified Code(s): A41.9 - Sepsis, unspecified organism (3) Decubitus ulcer, stage 3 with infection Priority: Secondary Status: Chronic Assessment and Plan: Wound care will continue at [facility] (4) Ulcer of sacral region, stage 3 Priority: Secondary Status: Acute Assessment and Plan: Will continue with current care plan at LT (5) Chronic venous hypertension w/ulcer and inflammation involv both sides Priority: Secondary Status: Chronic (6) Morbid obesity Priority: Secondary Status: Chronic (7) Diabetic foot ulcer Priority: Secondary Status: Chronic Assessment and Plan: To continue with recommended care and dressing at [facility] Qualifiers: Diabetic foot ulcer location: heel Diabetes mellitus type: type 2 Laterality: right Non-pressure ulcer stage: with muscle involvement without evidence of necrosis Qualified Code(s): E11.621 - Type 2 diabetes mellitus with foot ulcer; L97.415 - Non-pressure chronic ulcer of right heel and midfoot with muscle involvement without evidence of necrosis (8) Acute kidney injury Priority: Primary Status: Resolved Assessment and Plan: Intake & Output 04/09/18 04/10/18 04/11/18 04/12/18 23:59 23:59 23:59 23:59 Intake Total 100 / 100 970 / 970 460 / 460 700 / 700 Output Total 400 / 400 Balance 100 / 100 970 / 970 460 / 460 300 / 300 Weight 131 kg 129.8 kg 125 kg Short CBC 04/12/18 Range/Units 05:04 WBC 9.3 (4.3-11.1) K/mcL Hgb 8.9 L (11.5-15.4) g/dL Hct 29.7 L (35.3-44.9) % Plt Count 162 (140-400) K/mcL Neutrophils # 6.3 (1.6-8.9) K/mcL BMP 04/12/18 Range/Units 05:04 Sodium 142 (136-145) mEq/L Potassium 4.4 (3.5-5.1) mEq/L Chloride 102 (98-107) mEq/L Carbon Dioxide 32 H (23-29) mEq/L BUN 68 H (6-20) mg/dL Creatinine 1.45 H (0.60-1.20) mg/dL Glucose 90 (70-105) mg/dL Calcium 9.4 (8.6-10.3) mg/dL Progressively improving with treatment Hospital course: Ms. Magallanes is a 58-year-old woman with a history of CHF, COPD, diabetes mellitus, hypertension, hyperlipidemia and recent sepsis with DOROTHEA at the end of February/ early March who presented to the ED from [facility] with altered mental status. At that time she apparently had thick, cloudy urine, fever, altered mental status. It was also determined that she had severe DOROTHEA that time with serum creatinine approaching 3 and a GFR of 17. The patient was diagnosed with sepsis and received fluids and antibiotics. She has been here since 04/06/18 and has shown significant improvement, however required Ruiz catheterization yesterday due to urinary retention. At this time, the patient has no acute complaints. She says that she is feeling better and she does not understand why she needs to stay at the hospital. Although the patient's renal status has continued to improve relatively dramatically along with her clinical status in general, nephrology was consulted for recommendations on management post DOROTHEA and 4 time of discharge. During hospital stay patient was consulted with infectious control for sepsis, and decubitis foot ulceration right heel. Wound care was consulted for ulceration and dressing changes. Discharge discussed with: patient Time spent discussing smoking cessation with patient: 3 to 10 minutes - Time Spent with Patient Total time spent providing and/or coordinating discharge services: Less than 30 minutes - Discharge Medications Home Medications: Atorvastatin [Lipitor] 40 mg PO HS 01/11/16 [History] Insulin ASPART [Novolog Flexpen] 2 - 14 unit SQ TID 01/11/16 [History] Latanoprost [Xalatan] 1 drop BOTH EYES HS 01/11/16 [History] Primidone [Mysoline] 50 mg PO BID PRN 01/11/16 [History] Ascorbic Acid [Vitamin C] 500 mg PO BID 03/25/16 [History] Docusate Sodium [Colace] 200 mg PO BID 03/25/16 [History] Furosemide [Lasix] 40 mg PO BID 12/06/16 [History] Fluticasone Propionate Nasal [Flonase] 2 spray NS DAILY #1 bottle 08/28/17 [Rx] Ketoconazole 2% CRM [Nizoral Cream] 1 appl TP DAILY 11/10/17 [History] Ketorolac Tromethamine 1 drop OP QID 11/10/17 [History] Tizanidine HCl 4 mg PO TID 11/20/17 [History] Calcium Carbonate [Tums] 1,000 mg PO Q4HR PRN tab.chew 11/24/17 [Rx] Carvedilol [Coreg] 6.25 mg PO BIDWM tablet 11/24/17 [Rx] Ferrous Sulfate 325 mg PO BID 01/30/18 [History] Loratadine [Allergy Relief] 10 mg PO DAILY 01/30/18 [History] Pantoprazole Sodium [Protonix] 40 mg PO DAILY 01/30/18 [History] Polyethylene Glycol 3350 [MiraLAX] 17 gm PO DAILY 01/30/18 [History] Sucralfate [Carafate] 1 gm PO 0730,1630 30 Days #60 tablet 02/16/18 [Rx] Diltiazem CD (24hr) [Cardizem CD] 120 mg PO DAILY 02/20/18 [History] Insulin DETEMIR [Levemir] 30 unit SQ HS [id number] 02/26/18 [Rx] Ipratropium/Albuterol Neb [Duoneb] 3 ml IH [id number] PRN inhsol 02/26/18 [Rx] Simethicone [Gas-X] 80 mg PO TID PRN tab.chew 02/26/18 [Rx] Brimonidine Tartrate/Timolol [Combigan 0.2%-0.5% Eye Drops] 1 drop BOTH EYES BID 03/07/18 [History] Gabapentin [Neurontin] 300 mg PO HS #5 capsule 03/24/18 [Rx] Pregabalin [Lyrica] 75 mg PO BID 5 Days #10 capsule 03/24/18 [Rx] clonazePAM [Klonopin] 0.5 mg PO BID PRN 5 Days #10 tablet 03/24/18 [Rx] Ibuprofen [Ibu] 600 mg PO QID PRN 04/07/18 [History] Lactobacillus Acidophilus [Acidophilus] 1 cap PO BID 04/07/18 [History] Allergies/Adverse Reactions: 3 Allergy/AdvReac Type Severity Reaction Status Date / Time lisinopril [From Zestril] Allergy Rash Verified 04/07/18 14:58 Date of admission: 04/07/18 01:54 Primary care physician: Jc Tsai MD Consults: 04/08/18 10:04 Consult to Wound Care [CONS] Routine Reason for Consult: diabetic right foot ulcer Call Completed: No 04/09/18 08:39 Consult to [employer] [CONS] Routine Reason for SW Consult: PATIENT FROM [facility]. [facility]Y BED HOLD. 04/10/18 09:51 Consult to Infectious Diseases [CONS] Routine Consulting Provider: Infectious Disease [place] Reason for Consult: Bruno resistant proteus UTI sepsis on ertapenem Call Completed: Yes 04/10/18 15:09 Consult to Occupational Therapy [CONS] Routine Comment: Evaluate, develop and implement POC Reason for Consult: WEAKNESS, D/C PLANNING, RETURN TO SNF Does patient have active BEDREST order?: No Is patient medically & hemodynamically stable?: Yes Consult to Physical Therapy [CONS] Routine Comment: Evaluate, develop and implement POC Reason for Consult: WEAKNESS, D/C PLANNING, RETURN TO SNF Does patient have active BEDREST order?: No Is patient medically & hemodynamically stable?: Yes 04/12/18 08:42 Consult to Nephrology [CONS] Routine Consulting Provider: Kidney Isabella/JANESSA/JOSI/ANTHONY Reason for Consult: acute renal failure / injury Time Notified: 08:43 Call Completed: No Discharging clinician: Fernanda Garcia Anticipated date of discharge: 04/12/18 - Constitutional Vitals: Temp Pulse Resp BP Pulse Ox 98.0 F 78 15 145/76 100 04/12/18 06:35 04/12/18 06:35 04/12/18 06:35 04/12/18 10:48 04/12/18 06:35 General appearance: Present: A&O X 3, morbidly obese, pleasant, no acute distress, obese Exam: No acute distress, denies chest pain, abdominal pain, dizziness. States is ready to go back to her home which is LTC facility - Head Head exam: Present: atraumatic, normocephalic - Eye Eye exam: Present: PERRL, conjuntiva pink, sclera anicteric Pupils: Present: PERRL - Neck Neck exam general surgery: Present: supple, trachea midline. Absent: lymphadenopathy - Respiratory Respiratory exam: Present: CTAB. Absent: accessory muscle use, rales, rhonchi, wheezes - Cardiovascular Cardiovascular exam: Present: RRR, +S1, +S2. Absent: diastolic murmur, gallop, rubs, systolic murmur - GI/Abdominal GI/Abdominal exam: Present: normal bowel sounds, soft, no peritoneal signs. Absent: distended, tenderness - Additional comments: Ruiz cath in place draining clear yellow urine. Was placed today d/t urinary retention, and inability to void. Request that it be removed. "because I did not want it in the first place" Will discharge to LTC with ruiz cath in place d/t lack of time remaining in hospital with orders for LTC to remove when appropriate and to f/u with stick I& O - Extremities Exam Additional comments: wound dressing in place right heel and foot. no drainage noted. - Neurological Exam Neurological exam: Present: CN II-XII intact, oriented X3, no focal deficits. Absent: pronater drift, facial droop, speech deficit - Patient Status Disposition: Transfer SNF Condition: Good Functional capacity at discharge: uses cane/walker Overall status at discharge: patient is back to baseline - Discharge Instructions Instructions: Urinary Tract Infection in Women (DC), Acute Kidney Injury (DC), Sepsis (DC), Diabetes Mellitus Type 2 in Adults (DC), Chronic Hypertension (DC) , Diabetic Foot Care (DC) Follow Up With: Jc Tsai MD [Primary Care Provider] - Forms: ED Satisfaction Letter - Diet and Activity Activity: as per physical therapy, increase activity as tolerated Diet: diabetic diet - VTE Deep Vein Thrombosis/Pulmonary Embolism Present on Admission: No
[2018-04-12 14:50] VITALS: BP 150/84
[2018-04-12] MEDS ORDERED: Fosfomycin Tromethamine 3 GM Packet PO ONE (16:00)
== END 2018-04-12 17:57 | DRG 720 ==
LOC: EMEROOARM 16:48 → 3BNU 16:48 → SUATTDRO 04-07 01:54
PROVIDERS: ADMIT Internal Medicine; ATTEND Internal Medicine